=== PATIENT | female | born 1945 | race Caucasian/White ===

== ENCOUNTER → 2016-10-31 | Outpatient (CLI) | payer BC ==
[~2016-10-31] MED LIST: FLUT0.15 NAE; PRT40 PO
--- NOTE | 2016-11-01 13:21 | MAMMOGRAPHY REPORT ---
BILATERAL DIGITAL SCREENING MAMMOGRAM WITH CAD: 10/31/2016 CLINICAL HISTORY: Routine screening. Patient has no complaints. TECHNIQUE: Current study was also evaluated with a Computer Aided Detection (CAD) system. Bilateral CC and MLO views were obtained. COMPARISON: Comparison is made to exams dated: 10/30/2015 mammogram, 10/24/2014 mammogram, 10/18/2013 ma mmogram, 10/13/2012 mammogram - [facility], 10/08/2011 mammogram, and 09/25/2010 mammo gram. BREAST COMPOSITION: The tissue of both breasts is heterogeneously dense, which may obscure small mas ses. FINDINGS: No suspicious masses, calcifications, or areas of architectural distortion are noted in ei ther breast. There has been no significant interval change compared to prior exams. Scattered bilater al benign-appearing calcifications are not significantly changed. Bilateral asymmetries are stable. IMPRESSION: ACR BI-RADS CATEGORY 2: BENIGN There is no mammographic evidence of malignancy. A 1 year screening mammogram is recommended. The pa tient will receive written notification of the results. Approximately 10% of breast cancers are not detected with mammography. A negative mammographic report should not delay biopsy if a clinically suggestive mass is present. Barbara Estrella M.D. /:10/31/2016 16:47:08 Laboratory Technician: Rona Walden, M, [facility] letter sent: Normal 1/2 BI-RADS Code: ACR BI-RADS Category 2: Benign
== END | disposition home or self-care (01) ==
LOC: C.MAMM 08:34
PROVIDERS: ATTEND Family Medicine
DX: Z12.31 Encounter for screening mammogram for malignant neoplasm of breast (principal)

== ENCOUNTER → 2017-11-05 | Outpatient (CLI) | payer BC ==
[~2017-11-05] MED LIST changes: +PANT1TAB4 PO; -PRT40 PO
--- NOTE | 2017-11-05 13:39 | MAMMOGRAPHY REPORT ---
BILATERAL DIGITAL SCREENING MAMMOGRAM TOMOSYNTHESIS WITH CAD: 11/05/2017 CLINICAL HISTORY: Routine screening. Patient has no complaints. TECHNIQUE: The study was acquired using full field digital technology and interpreted from soft copy. Breast tomosynthesis in addition to standard 2D mammography was performed. Current study was also ev aluated with a Computer Aided Detection (CAD) system. COMPARISON: Comparison is made to exams dated: 10/31/2016 mammogram, 10/30/2015 mammogram, 10/24/2014 jolie mogram, 10/18/2013 mammogram, 10/13/2012 mammogram - [facility], and 10/08/2011 mammog michael. BREAST COMPOSITION: The tissue of both breasts is heterogeneously dense, which may obscure small mass es. FINDINGS: There are possible clusters of microcalcifications in the medial, middle to posterior right breast on the CC view and along the posterior nipple line on the CC view, thought to project superio rly and inferiorly on the MLO view, and possible clustered calcifications in the left upper outer mid dle one third of the breast for which additional bilateral spot magnification views are recommended. No other suspicious mass, architectural distortion or cluster of microcalcifications is seen. IMPRESSION: ACR BI-RADS CATEGORY 0: INCOMPLETE EVALUATION: NEED ADDITIONAL IMAGING EVALUATION The possible clusters of microcalcifications in each breast need additional imaging evaluation. The patient will be called to schedule an appointment. Some breast cancers are not detected with mammography. A negative mammographic report should not jd y biopsy if a clinically suggestive mass is present. Flora Haas M.D. ay/:11/05/2017 09:24:45 Crane Rigger: RT Margaret(Rona)(M), [facility] letter sent: Addl Imaging 0 BI-RADS Code: ACR BI-RADS Category 0: Incomplete Evaluation: Need Additional Imaging Evaluation
== END | disposition home or self-care (01) ==
LOC: C.MAMM 08:43
PROVIDERS: ATTEND Family Medicine
DX: Z12.31 Encounter for screening mammogram for malignant neoplasm of breast (principal); R92.0 Mammographic microcalcification found on diagnostic imaging of breast

== ENCOUNTER → 2017-11-12 | Outpatient (CLI) | payer BC ==
--- NOTE | 2017-11-13 15:43 | MAMMOGRAPHY REPORT ---
BILATERAL DIGITAL DIAGNOSTIC MAMMOGRAM: 11/12/2017 CLINICAL HISTORY: Callback from screening mammography for bilateral microcalcifications. No family hi story of breast cancer. TECHNIQUE: Bilateral spot magnification CC and ML views were obtained. COMPARISON: Comparison is made to exams dated: 11/05/2017 mammogram, 10/31/2016 mammogram, 10/30/2015 mamm ogram, and 10/24/2014 mammogram - [facility]. BREAST COMPOSITION: The tissue of both breasts is heterogeneously dense, which may obscure small mass es. FINDINGS: The spot magnification views of the left upper outer quadrant demonstrate two small 2 mm gr oupings of punctate/amorphous microcalcifications at approximately 1:00 and 2:00 posterior breast. W hen comparing back to prior available mammograms, these small groupings of calcifications were likely present dating back to at least 2011, therefore likely benign. There are a few more loosely grouped rounded microcalcifications seen in the left upper outer breast, but currently no highly suspicious grouping or cluster of calcifications. No obvious mass or architectural distortion. Spot magnification views of the right medial, superior and inferior breast demonstrate clustered vers us segmental punctate microcalcifications in the slightly medial posterior breast on the CC view, tho ught to project superiorly based on the ML views. When comparing back to prior available mammograms, these calcifications appear somewhat similar in the CC projection dating back to 2013 but some are l ikely present dating back to 2009, given difference is in equipment and technique. Given slight incr eased conspicuity we discussed options of tissue sampling with stereotactic biopsy versus continued c lose follow-up with spot magnification views and the patient would like to follow with imaging at thi s time. Would also recommend follow-up spot magnification views of the left breast as well. IMPRESSION: ACR-BI-RADS CATEGORY 3: PROBABLY BENIGN 1. Bilateral clusters of microcalcifications most numerous in the left upper outer quadrant and righ t upper inner posterior breast were likely present dating back to 2009, but are increased in conspicu ity. These findings could be due to technical differences and different equipment nevertheless a beth rt interval follow-up bilateral diagnostic mammogram including spot magnification views is recommende d to ensure stability in 6 months. These results and recommendations were discussed with the patient at the time of the exam. Some breast cancers are not detected with mammography. A negative mammographic report should not jd y biopsy if a clinically suggestive mass is present. Flora Haas M.D. ay/:11/12/2017 15:03:40 Comedian: Gaby Lynch, [facility] letter sent: Follow Up Recommended 3 BI-RADS Code: ACR-BI-RADS Category 3: Probably Benign
== END | disposition home or self-care (01) ==
LOC: C.MAMM 13:48
PROVIDERS: ATTEND Family Medicine
DX: R92.0 Mammographic microcalcification found on diagnostic imaging of breast (principal)

== ENCOUNTER 2019-03-01 09:19 | Inpatient (IN) ==
--- NOTE | 2019-03-01 10:15 | XRay Report ---
SINGLE VIEW CHEST CLINICAL HISTORY: Atypical chest pain. FINDINGS: An AP, portable, upright chest radiograph is compared to study dated 05/12/2015 and correlat ed with PET CT dated 09/17/2017. The examination is degraded by portable technique and patient rotatio n. A moderate hiatal hernia is noted. The heart is enlarged noting atherosclerotic calcification of t he thoracic aorta. There is pulmonary vascular congestion with evidence of interstitial edema. There are small pleural effusions with bibasilar consolidation. No pneumothorax is seen. The skeletal struc tures are osteopenic. The bony thorax is grossly intact. IMPRESSION: 1. Cardiomegaly with evidence of congestive failure and mild interstitial edema. 2. Hiatal hernia. 3. There are layering pleural effusions with bibasilar consolidation. This likely represents atelecta sis. Correlate clinically for evidence of superimposed pneumonia Electronically signed by: Kashif Rios M.D. 03/01/2019 10:14 AM
[2019-03-01 10:30] LABS: Basophils # (auto) 0.02 K/uL (0-0.2); Basophils % (auto) 0.5 %; Hemoglobin 11.7 g/dL (12.0-16.0); Immature Granulocytes # (auto) 0.01 K/uL (0.00-0.02); Immature Granulocytes % (auto) 0.2 %; Lymphocytes # (auto) 0.31 K/uL (1.2-3.4); Lymphocytes % (auto) 7.6 %; Mean Corpuscular Hemoglobin 28.2 pg (25-34); Mean Corpuscular Hgb Conc 30.8 g/dL (32-36); Mean Corpuscular Volume 91.6 fL (80-100); Mean Platelet Volume 11.4 fL (7.4-10.4); Monocytes # (auto) 0.21 K/uL (0.11-0.59); Monocytes % (auto) 5.1 %; Neutrophils # (auto) 3.54 K/uL (1.4-6.5); Neutrophils % (auto) 86.6 %; Platelet Count 304 K/uL (130-400); RDW Coefficient of Variation 17.6 % (11.5-14.5); RDW Standard Deviation 58.5 fL (36.4-46.3); Red Blood Count 4.15 M/uL (4.2-5.4); White Blood Count 4.09 K/uL (4.8-10.8)
--- NOTE | 2019-03-01 10:34 | Emergency Department Note ---
ED Visit Note Was seen with Dr. Judge, see his note for details. Resident Activity Tracking Resident Involvement: Resident Care Provided Care Provided: [facility]
[2019-03-01 10:46] LABS: Albumin Level 2.5 gm/dl (3.4-5.0); BUN Creatinine Ratio 22.1 (10-20); Calcium 8.8 mg/dl (8.5-10.1); Creatinine Clr Calc Pharmacy 68.8 ml/min; Est GFR (African American) 100.3; Est GFR (Non-African American) 86.6
[2019-03-01 10:57] LABS: Albumin Globulin Ratio 0.4 (0.9-2); Bilirubin,Total 0.4 mg/dl (0.2-1); Globulin 6.1 gm/dl (2.5-4.0); Total Protein 8.6 gm/dl (6.4-8.2); Troponin I 0.089 ng/ml (0-0.045)
[2019-03-01] MEDS ORDERED: OPTIRAY 320 125ml IV PRN (11:26)
--- NOTE | 2019-03-01 11:36 | CT Scan Report ---
CT ANGIOGRAM OF THE CHEST CLINICAL HISTORY: Atypical chest pain. Dyspnea. COMPARISON STUDY: Chest x-ray dated 03/01/2019. PET CT dated 09/17/2017. TECHNIQUE: Following the IV administration of 120 cc of Optiray 320, CT angiogram of the chest was pe rformed from the upper abdomen to the thoracic inlet utilizing the pulmonary embolus protocol. Images are reviewed in the axial, sagittal, and coronal planes. 3-D MIPS images are created and assessed. I V contrast was administered without complication. A dose lowering technique was utilized adhering to the principles of ALARA. CT DOSE: 342.67 mGycm FINDINGS: Thyroid: Imaged portions of the thyroid gland are normal in size and attenuation. Thoracic aorta: There is atherosclerotic calcification of the thoracic aorta, which is normal in rito dat and demonstrates standard 3-vessel arch anatomy. No dissection is seen. Pulmonary vasculature: The pulmonary trunk is normal in caliber. There are no filling defects identif ied in main, lobar, or segmental pulmonary branches to suggest pulmonary embolus. Heart: The heart is enlarged and without pericardial effusion. Lungs and pleural spaces: There are moderate pleural effusions, right larger than left with associate d atelectasis. There is diffuse intralobular septal and peribronchial thickening. The trachea and vivian tral airways are clear. Mediastinum: There is no mediastinal lymphadenopathy. Minnie: Clear. Axillae: There is no axillary lymphadenopathy. Upper abdomen: There is a moderate to large hiatal hernia. Partially visualized upper abdominal visce ra is within normal limits. Skeletal structures: The skeletal structures are osteopenic. Degenerative change and hyperkyphosis ar e noted in the thoracic spine. No lytic or blastic bony lesions are seen. IMPRESSION: 1. There is no evidence of pulmonary embolus in the main, lobar, or segmental pulmonary arteries. 2. Cardiomegaly with evidence of congestive failure. 3. Moderate pleural effusions, right larger than left with associated atelectasis. 4. Moderate to large hiatal hernia. Electronically signed by: Kashif Rios M.D. 03/01/2019 11:35 AM
[2019-03-01] MEDS ORDERED: FUROSEMIDE 40 MG/4 ML VIAL IV STA (12:05)
[2019-03-01 13:13] LABS: Appearance Urine Clear (Clear); Bilirubin Urine Negative (Negative); Blood Urine Negative (Negative); Color Urine Yellow; Glucose Urine UA Negative (Negative); Ketones Urine Negative (Negative); Leukocyte Esterase Urine Negative (Negative); Nitrite Urine Negative (Negative); Protein Urine Negative (Negative); Urobilinogen Urine Negative (Negative); pH Urine 7.5 (4.5-7.5)
--- NOTE | 2019-03-01 13:24 | History & Physical Report ---
Date of Service March 01, 2019 Assessment & Plan (1) Acute CHF: (2) Bilateral pleural effusion: (3) Elevated troponin: This is a 73-year-old female with significant past medical history for multiple myeloma who presents to [facility] ED secondary to shortness of breath and lower extremity edema x1.5 weeks. In ED her initial troponin was 0.089 with lateral T wave inversions in V5 and V6. She denied chest pain during ED evaluation. proBNP elevated 2004, BUN 15, creatinine 0.70, H&H 11.7 and 30.0, platelet 304, urinalysis unremarkable. Chest x-ray and CTA findings were significant for negative PE, but moderate bilateral pleural effusions with associated atelectasis and CHF. She received 20 mg IV Lasix. New onset CHF with elevated troponin possibly in setting of diastolic dysfunction, ischemic cardiomyopathy, chemotherapeutic agent induced, steroid induced or other etiologies Admit to PCU Consult cardiology Dr. Molina IV lasix 20mg bid17 daily weight strict I and O echocardiogram trend troponin q6h repeat ecg at 7pm repeat CXR in a.m. (4) Multiple myeloma: Dr. Parikh discussed case with Dr. Bassem Luevano recommend holding Revlimid ( pt started day 1 of 21 day cycle today) (5) DVT prophylaxis: SQ heparin for now in event cardiology needs to procedure with any further intervention if no intervention warranted would switch to once daily lovenox in setting of multiple myeloma SCD/TEDS Dispositon: Admit to PCU Follow-up: PCP Dr. Boyce upon discharge along with appropriate follow-up with oncology Dr. Luevano Patient was seen and examined in collaboration with Dr. Parikh, please see addendum History of Present Illness Chief Complaint: Lower extremity swelling and shortness of breath x1.5 weeks. Primary Care Provider: Rosendo Boyce, This is a 73-year-old female with significant past medical history for multiple myeloma who presents to [facility] ED secondary to shortness of breath and lower extremity edema x1.5 weeks. Initially diagnosed with multiple myeloma back in 2016 but most recently started chemotherapeutic regimen by Dr. Luevano. On 02/01 she started Revlimid, Velcade and Decadron. Revlimid 25 mg once daily for 3 weeks followed by 1 week off. She completed 1 total cycle and is on day 1 of cycle 2. Takes Decadron 20 mg once weekly and took prior to arrival. She also receives Velcade 1.3 mg subcu injections every week. Over the past week and a half she has noted increased lower extremity swelling, shortness of breath with exertion, shortness of breath at rest, precordial chest pressure with exertion. Symptoms resolved immediately with rest. She denies any tree chest pain. Approximately 10 pound weight gain is noted. Further complains of nausea, decreased appetite and early satiety. She denies any fever, chills, sweats, lightheadedness, dizziness, syncope, URI symptoms, productive cough, emesis, abdominal pain, increased urgency or frequency with urination, dysuria, hematochezia, melena. She was seen by Dr. Luevano in the office today and was referred to ED secondary to increased shortness breath with exertion and hypoxia noted to 83% with exertion. Denies prior history of cardiac disease or cardiac surgery. Positive family history mother who is at age 90 with CAD. Father and son with hypertension. She denies any smoking or alcohol use. In ED her initial troponin was 0.089 with lateral T wave inversions in V5 and V6. She denied chest pain during ED evaluation. proBNP elevated 2004, BUN 15, creatinine 0.70, H&H 11.7 and 30.0, platelet 304, urinalysis unremarkable. Chest x-ray and CTA findings were significant for negative PE, but moderate bilateral pleural effusions with associated atelectasis and CHF. She received 20 mg IV Lasix. Allergies Allergy/AdvReac Type Severity Reaction Status Date / Time No Known Allergies Allergy Unknown ` Verified 03/01/19 10:14 Home Medications Home Medications Medication Instructions Recorded Confirmed Type acyclovir 400 mg PO BID 03/01/19 03/01/19 History aspirin 81 mg PO DAILY 03/01/19 03/01/19 History dexamethasone 40 mg PO WK 03/01/19 03/01/19 History lenalidomide [Revlimid] 25 mg PO UD 03/01/19 03/01/19 History ondansetron HCl 8 mg PO Q8H PRN 03/01/19 03/01/19 History prochlorperazine maleate 10 mg PO Q6H PRN 03/01/19 03/01/19 History Past Med/Surg History Family History (Updated 03/01/19 @ 13:28 by Christy Pruitt PA-C) Father , 50s Stroke Mother , 90 Coronary heart disease Social History Preferred Language: Frisian 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: Effective City [employer] Required: No Beliefs That Will Affect Care: None Current Living Situation: Spouse Other Information That Helps Us Care for You: No Feels Safe at Home: Yes Safety Concerns: Feels Safe At This Time Smoking Status: Never smoker Do You Dip or Chew Tobacco: No ; Second Hand Exposure: No ; Tobacco Cessation Education Requested by Patient: No Hx Alcohol Use: No Hx Substance Use: No Review of Systems Review of Systems: All systems reviewed & are unremarkable except as noted in HPI & below Physical Exam Physical Exam: Constitutional: WD/WN, female, vitals as above, NAD, sitting up in bed, pleasant, conversing easily Head: Normocephalic, Atraumatic Eyes: PERRL, conjunctivae normal, anicteric sclerae ENMT: external ear and nose normal, oropharynx normal Neck: trachea midline, no thyromegaly normal visual inspection Respiratory: normal respiratory effort, lungs clear to auscultation, no wheeze, rales, rhonchi. Normal insp/exp effort, no accessory muscle use Cardiovascular: RRR, no S3 or S4, no murmur, bilateral +1 pitting edema pretibially Vessels: no JVD or carotid bruit Chest: normal inspection of chest Abdomen: normal bowel sounds, soft, nontender, no hepatosplenomegaly Musculoskeletal: no cyanosis or clubbing, extremities motor strength 5/5 Skin: no rashes, warm and dry normal turgor Neurologic: PERRL, EOMI, accommodation nl, no face palsy, no dysarthria CN's II-XI intact bilaterally and moves all extremities Psychiatric: A+Ox3, euthymic affect Lymphatic: no cervical or axillary lymphadenopathy : deferred Results & Data Vital Signs (Past 12 Hours) Vital Signs Temp Pulse Resp BP Pulse Ox 03/01/19 12:30 78 19 127/73 96 03/01/19 12:00 79 22 124/71 92 03/01/19 11:35 97 03/01/19 11:30 79 22 127/66 97 03/01/19 10:30 78 24 118/67 96 03/01/19 10:00 78 23 117/61 96 03/01/19 09:30 78 22 130/75 97 03/01/19 09:27 79 22 143/89 H 98 03/01/19 09:26 36.9 C 80 18 143/89 H 95 Laboratory Results Short CBC 03/01/19 Range/Units 10:08 WBC 4.09 L (4.8-10.8) K/uL Hgb 11.7 L (12.0-16.0) g/dL Hct 38.0 (37-47) % Plt Count 304 (130-400) K/uL BMP 03/01/19 10:08 Sodium 140 Potassium 4.0 Chloride 112 H Carbon Dioxide 24 BUN 15 Creatinine 0.70 Glucose 109 H Calcium 8.8 Cardiac Enzymes 03/01/19 Range/Units 10:08 Troponin I 0.089 H* (0-0.045) ng/ml Liver Function 03/01/19 Range/Units 10:08 Total Bilirubin 0.4 (0.2-1) mg/dl AST 46 H (15-37) U/L ALT 56 (12-78) U/L Alkaline Phosphatase 77 (45-117) U/L Albumin 2.5 L (3.4-5.0) gm/dl Urine 03/01/19 Range/Units 12:55 Urine Color Yellow Urine Appearance Clear (Clear) Urine pH 7.5 (4.5-7.5) Ur Specific [place] 1.020 (1.000-1.030) Urine Protein Negative (Negative) Urine Glucose (UA) Negative (Negative) Diagnostic Findings CXR: IMPRESSION: 1. Cardiomegaly with evidence of congestive failure and mild interstitial edema. 2. Hiatal hernia. 3. There are layering pleural effusions with bibasilar consolidation. This likely represents atelectasis. Correlate clinically for evidence of superimposed pneumonia Chest CTA: IMPRESSION: 1. There is no evidence of pulmonary embolus in the main, lobar, or segmental pulmonary arteries. 2. Cardiomegaly with evidence of congestive failure. 3. Moderate pleural effusions, right larger than left with associated atelectasis. 4. Moderate to large hiatal hernia. Medications Administered Ioversol (Optiray 320 125ml) 120 ml IV ONCE PRN PRN Reason: Interaction Checking Stop: 03/05/19 11:25 Last Admin: 03/01/19 11:27 Dose: 120 ml Documented by: [id number] Discontinued Medications Furosemide (Lasix) 20 mg IV NOW STA Stop: 03/01/19 12:06 Last Admin: 03/01/19 12:23 Dose: 20 mg Documented by: [id number] ECG Rate (beats per minute): 80 Rhythm: normal sinus Findings: + T-wave inversion (Lateral) Code Status & VTE Plan Code Status Full code VTE Prophylaxis Plan VTE Prophylaxis will be ordered: Yes Supervising Physician Co-Signing Physician Notes Date of Service: March 01, 2019 HISTORY: Record reviewed. Patient interviewed and examined. Care coordinated with Christy Pruitt PA-C. Please refer to her documentation for complete history. Briefly, 73 YO female with history of multiple myeloma, currently receiving treatment with bortezomib and lenalidomide. Has noted some mile dyspnea on exertion without chest pain over the past year. Developed worsening dyspnea on exertion 1-2 weeks ago associated with weight gain and dependent edema. Had a brief episode of chest pressure at rest about 2 weeks ago that only lasted for a few minutes. No chest pain with exertion. No fever. Occasional cough associated with postnasal drainage. Came to ED for evaluation and found to be in CHF. No prior history of cardiovascular disease. EXAM: General- no distress Skin- xanthelasma lower eyelids Lungs- bibasilar rales Cardiovascular- RRR, ? midsystolic click, ? soft late systolic murmur, + JVD, 1+ pretibial edema bilaterally Abdomen- + bowel sounds, soft, nontender Extremities- no cyanosis; no calf tenderness Neuro- alert, oriented Skin- warm & dry DATA: Hgb 11.7, WBC 4090, platelets 304,000. BUN 15, creatinine 0.70. Total protein 8.6, albumin 2.5, globulin 6.1, albumin / globulin ratio 0.4. Troponin 0.089. Pro BNP 2004. K 4.0. Other lab studies as noted. Chest x-ray reviewed by the undersigned and formally interpreted by Radiology: FINDINGS: An AP, portable, upright chest radiograph is compared to study dated 05/12/2015 and correlated with PET CT dated 09/17/2017. The examination is degraded by portable technique and patient rotation. A moderate hiatal hernia is noted. The heart is enlarged noting atherosclerotic calcification of the thoracic aorta. There is pulmonary vascular congestion with evidence of interstitial edema. There are small pleural effusions with bibasilar consolidation. No pneumothorax is seen. The skeletal structures are osteopenic. The bony thorax is grossly intact. IMPRESSION: 1. Cardiomegaly with evidence of congestive failure and mild interstitial edema. 2. Hiatal hernia. 3. There are layering pleural effusions with bibasilar consolidation. This likely represents atelectasis. Correlate clinically for evidence of superimposed pneumonia Electronically signed by: Kashif Rios M.D. 03/01/2019 10:14 AM CTA chest per Radiology: IMPRESSION: 1. There is no evidence of pulmonary embolus in the main, lobar, or segmental pulmonary arteries. 2. Cardiomegaly with evidence of congestive failure. 3. Moderate pleural effusions, right larger than left with associated atelectasis. 4. Moderate to large hiatal hernia. Electronically signed by: Kashif Rios M.D. 03/01/2019 11:35 AM EKG performed at 0926 reviewed and demonstrated NSR at 80 / minute, poor R-wave progression, biphasic T-waves I, T-wave flattening inferior leads, ST depression + inverted T-waves V5, V6. ASSESSMENT AND PLAN: New onset CHF. Consider cardiac amyloid. Consider adverse drug reaction (e.g., bortezomib or lenalidomide). Consider etiologies not related to multiple myeloma or Rx. Received IV furosemide in ED with brisk diuresis. Monitor renal function closely. Will hold on further diuresis pending labs and follow-up evaluation in a.m. Echo ordered. Check serial troponins. Further management will depend on echo data. Consult Cardiology. Case discussed with Hematology / Oncology- advised to hold lenalidomide at this time. Please refer to GABBY Pruitt's documentation for discussion of other issues.
--- NOTE | 2019-03-01 13:40 | Communication Note ---
Date of Service: March 01, 2019 HISTORY: Record reviewed. Patient interviewed and examined. Care coordinated with Christy Prutit PA-C. Please refer to her documentation for complete history. Briefly, 73 YO female with history of multiple myeloma, currently receiving treatment with bortezomib and lenalidomide. Has noted some mile dyspnea on exertion without chest pain over the past year. Developed worsening dyspnea on exertion 1-2 weeks ago associated with weight gain and dependent edema. Had a brief episode of chest pressure at rest about 2 weeks ago that only lasted for a few minutes. No chest pain with exertion. No fever. Occasional cough associated with postnasal drainage. Came to ED for evaluation and found to be in CHF. No prior history of cardiovascular disease. EXAM: General- no distress Skin- xanthelasma lower eyelids Lungs- bibasilar rales Cardiovascular- RRR, ? midsystolic click, ? soft late systolic murmur, + JVD, 1+ pretibial edema bilaterally Abdomen- + bowel sounds, soft, nontender Extremities- no cyanosis; no calf tenderness Neuro- alert, oriented Skin- warm & dry DATA: Hgb 11.7, WBC 4090, platelets 304,000. BUN 15, creatinine 0.70. Total protein 8.6, albumin 2.5, globulin 6.1, albumin / globulin ratio 0.4. Troponin 0.089. Pro BNP 2004. K 4.0. Other lab studies as noted. Chest x-ray reviewed by the undersigned and formally interpreted by Radiology: FINDINGS: An AP, portable, upright chest radiograph is compared to study dated 05/12/2015 and correlated with PET CT dated 09/17/2017. The examination is degraded by port able technique and patient rotation. A moderate hiatal hernia is noted. The heart is enlarged noting atherosclerotic calcification of the thoracic aorta. There is pulmonary vascular congestion with evidence of interstitial edema. There are small pleural effusions with bibasilar consolidation. No pneumothorax is seen. The skeletal structures are osteopenic. The bony thorax is grossly intact. IMPRESSION: 1. Cardiomegaly with evidence of congestive failure and mild interstitial edema. 2. Hiatal hernia. 3. There are layering pleural effusions with bibasilar consolidation. This likely represents atelectasis. Correlate clinically for evidence of superimposed pneumonia Electronically signed by: Kashif Rios M.D. 03/01/2019 10:14 AM CTA chest per Radiology: IMPRESSION: 1. There is no evidence of pulmonary embolus in the main, lobar, or segmental pulmonary arteries. 2. Cardiomegaly with evidence of congestive failure. 3. Moderate pleural effusions, right larger than left with associated atelectasis. 4. Moderate to large hiatal hernia. Electronically signed by: Kashif Rios M.D. 03/01/2019 11:35 AM EKG performed at 0926 reviewed and demonstrated NSR at 80 / minute, poor R-wave progression, biphasic T-waves I, T-wave flattening inferior leads, ST depression + inverted T-waves V5, V6. ASSESSMENT AND PLAN: New onset CHF. Consider cardiac amyloid. Consider adverse drug reaction (e.g., bortezomib or lenalidomide). Consider etiologies not related to multiple myeloma or Rx. Received IV furosemide in ED with brisk diuresis. Monitor renal function closely. Will hold on further diuresis pending labs and follow-up evaluation in a.m. Echo ordered. Check serial troponins. Further management will depend on echo data. Consult Cardiology. Case discussed with Hematology / Oncology- advised to hold lenalidomide at this time. Please refer to GABBY Pruitt's documentation for discussion of other issues.
[2019-03-01] MEDS ORDERED: ALUMINUM/MAGNESIUM SUSP 30 ML UDC PO PRN (14:32)
[2019-03-01] MEDS ORDERED: POLYETHYLENE (MIRALAX) 17 GM PACK PO PRN (14:32)
[2019-03-01] MEDS ORDERED: MAGNESIUM HYDROXIDE SUSP 30 ML UDC PO PRN (14:32)
[2019-03-01] MEDS ORDERED: NITROGLYCERIN SL 0.4 MG/TAB TAB SL PRN (14:32)
[2019-03-01] MEDS ORDERED: ONDANSETRON INJ 2 MG/ML 2 ML VIAL IV PRN (14:32)
[2019-03-01] MEDS ORDERED: ACETAMINOPHEN 325 MG TAB PO PRN (14:32)
--- NOTE | 2019-03-01 15:11 | Emergency Department Note ---
Entered by Luis Fernando Tubbs acting as a scribe for ED Provider Note CHIEF COMPLAINT: Shortness of breath HISTORY OF PRESENT ILLNESS: The patient is a 73 year old female who presents to the Emergency Room with complaints of worsening shortness of breath that has been ongoing for the past couple of weeks. The patient states that her symptoms are especially worse with exertion and she has noticed increased swelling in her bilateral lower extremities. The patient adds that her pulse ox would drop when she was up walking around and improve again once she was sitting but she does not remember the number it would decrease to. The patient mentioned that a couple weeks ago s he had an episode of chest heaviness and last night she had two episodes of sharp sudden chest pain. The patient rates the pain as a 3/10 and notes it did not radiate anywhere. The patient also endorses some right upper quadrant abdominal pain but notes this is not a new problem. The patient has a history of multiple myeloma and it is currently active. The patient is on many different medications for the myeloma. Pt denies LOC, headache, fevers, chills, diaphoresis, visual changes, neck pain, nausea, vomiting, back pain, melena, hematochezia, urinary symptoms, numbness, weakness, lymphadenopathy, rash, or other complaints. REVIEW OF SYSTEMS: See HPI for pertinent positives and negatives. A total of ten systems were reviewed and were otherwise negative. PMHx/PSHx: DVT, CHF, Multiple myeloma, Elevated troponin SOCIAL HISTORY: Patient lives at home. PHYSICAL EXAM: GENERAL: Awake, alert, well-appearing, in no distress HENT: Normocephalic, atraumatic. Oropharynx unremarkable. EYES: Normal conjunctiva. Sclera non-icteric. NECK: Inspection normal. Non-tender. Supple. No nuchal rigidity. FROM. No masses. RESPIRATORY: Clear to auscultation. No wheezes. No rales. Increased work of breath. CARDIAC: Normal rate. Normal rhythm. No murmurs. No rubs. Extremities warm and well perfused. Pulses equal. No JVD. GI: Soft, non-distended. No tenderness to palpation. No rebound or guarding. No masses. RECTAL: Deferred. MUSCULOSKELETAL: Atraumatic. Chest examination reveals no tenderness. The back is symmetrical on inspection without obvious abnormality. There is no CVA tenderness to palpation. No joint edema. LOWER EXTREMITIES: Calves are equal size bilaterally and non-tender. 1+ edema. No discoloration. NEURO: Normal sensorium. No sensory or motor deficits noted. SKIN: No rash or jaundice noted. EMERGENCY DEPARTMENT COURSE: 950: Past medical records reviewed. The patient was evaluated in room B10, and a complete history and physical examination were performed. 1030: I obtained the patient's report which showed that when she walked up the steps at the clinic her pulse ox dropped to 83%. 1057: The patient's troponin came back positive. 1205: I discussed the patient's case with Christy THRASHER who is working under Dr. Jl Montoya Hospitalist. They will be accepting the patient for further evaluation. MEDICAL DECISION MAKING: Prior records/ancillary studies reviewed. Triage Nursing notes reviewed and agree them. Additional history obtained from the family. The patient's history was concerning for shortness of breath. Differential diagnosis: Etiologies such as pneumonia, COPD, reactive airway disease, CHF, cardiac ischemia, pulmonary embolism, pneumothorax, musculoskeletal, infections, gastrointestinal, as well as others were entertained. Physical examination: As above. ER treatment provided: Supplemental oxygen IV Lasix On reassessment the patient felt better. Diagnostic interpretation by me: The electrocardiogram was abnormal. The labs revealed a mild anemia and leukopenia on CBC. Chemistry panel unremarkable. Troponin minimally elevated and BNP moderately elevated concerning for CHF. Imaging studies: Chest x-ray congestive changes noted. Possible superimposed pneumonia present. CT scan of the chest was performed and showed no evidence of pulmonary embolism however cardiomegaly with congestive changes present. Moderate pleural effusions present. Consultation: A consultation was placed with the hospitalist. The case was discussed and diagnostics were reviewed. The patient was evaluated in the ER for further treatment. IMPRESSION: Shortness of breath CHF Elevated troponin PLAN: Being evaluated by the hospitalist The scribe's documentation has been prepared under my direction and personally reviewed by me in its entirety. I confirm that the note above accurately reflects all work, treatment, procedures, and medical decision making performed by me. CRITICAL CARE: I have personally spent greater than 30 minutes of critical care time in the direct management of this patient. This includes bedside care, interpretation of diagnostic studies, and testing, discussion with consultants, patient, and family members, and other required patient management activities. This 30 minutes is in excess of all separately billable procedures. 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 Required: No Beliefs That Will Affect Care: None Current Living Situation: Spouse Other Information That Helps Us Care for You: No Feels Safe at Home: Yes Safety Concerns: Feels Safe At This Time Smoking Status: Never smoker Do You Dip or Chew Tobacco: No ; Second Hand Exposure: No ; Tobacco Cessation Education Requested by Patient: No Hx Alcohol Use: No Hx Substance Use: No Results & Data Vital Signs Vital Signs - 24 hr 03/01/19 09:26 03/01/19 09:27 03/01/19 09:30 Temperature 36.9 C Temperature Source Oral Pulse Rate 80 79 78 Pulse Rate from SpO2 Sensor 79 78 Respiratory Rate 18 22 22 Respiratory Effort / Characteristics Non-Labored Spontaneous Respiratory Depth Normal Blood Pressure 143/89 H 143/89 H 130/75 Blood Pressure Mean 107 101 86 Blood Pressure Position Sitting Pulse Oximetry 95 98 97 Oxygen Delivery Method Room Air Oxygen Flow Rate Fraction of Inspired Oxygen SaO2/FiO2 Ratio Sepsis Recent Fever Within 48 Hours No Sepsis Action Taken by Nursing No Action Required 03/01/19 10:00 03/01/19 10:30 03/01/19 11:30 Temperature Temperature Source Pulse Rate 78 78 79 Pulse Rate from SpO2 Sensor 78 77 79 Respiratory Rate 23 24 22 Respiratory Effort / Characteristics Respiratory Depth Blood Pressure 117/61 118/67 127/66 Blood Pressure Mean 80 86 78 Blood Pressure Position Pulse Oximetry 96 96 97 Oxygen Delivery Method Nasal Cannula Oxygen Flow Rate 2 2 Fraction of Inspired Oxygen SaO2/FiO2 Ratio Sepsis Recent Fever Within 48 Hours Sepsis Action Taken by Nursing 03/01/19 11:35 03/01/19 12:00 03/01/19 12:30 Temperature Temperature Source Pulse Rate 79 78 Pulse Rate from SpO2 Sensor 76 75 Respiratory Rate 22 19 Respiratory Effort / Characteristics Respiratory Depth Blood Pressure 124/71 127/73 Blood Pressure Mean 89 86 Blood Pressure Position Pulse Oximetry 97 92 96 Oxygen Delivery Method Nasal Cannula Nasal Cannula Nasal Cannula Oxygen Flow Rate 2 2 2 Fraction of Inspired Oxygen 2 SaO2/FiO2 Ratio 4850 Sepsis Recent Fever Within 48 Hours Sepsis Action Taken by Longterm Medications Current Medication List: was personally reviewed by me Laboratory Data Attestation: I reviewed the patient's lab results. Result diagrams: 03/01/19 10:08 03/01/19 10:08 Lab Results 03/01/19 03/01/19 Range/Units 10:08 10:08 WBC 4.09 L (4.8-10.8) K/uL RBC 4.15 L (4.2-5.4) M/uL Hgb 11.7 L (12.0-16.0) g/dL Hct 38.0 (37-47) % MCV 91.6 (80-100) fL MCH 28.2 (25-34) pg MCHC 30.8 L (32-36) g/dL RDW Std Deviation 58.5 H (36.4-46.3) fL RDW Coeff of Nasir 17.6 H (11.5-14.5) % Plt Count 304 (130-400) K/uL MPV 11.4 H (7.4-10.4) fL Immature Gran % (Auto) 0.2 % Neut % (Auto) 86.6 % Lymph % (Auto) 7.6 % [place] % (Auto) 5.1 % Eos % (Auto) 0.0 % Baso % (Auto) 0.5 % Immature Gran # (Auto) 0.01 (0.00-0.02) K/uL Neut # (Auto) 3.54 (1.4-6.5) K/uL Lymph # (Auto) 0.31 L (1.2-3.4) K/uL [place] # (Auto) 0.21 (0.11-0.59) K/uL Eos # (Auto) 0.00 (0-0.5) K/uL Baso # (Auto) 0.02 (0-0.2) K/uL Sodium 140 (136-145) mmol/L Potassium 4.0 (3.5-5.1) mmol/L Chloride 112 H (98-107) mmol/L Carbon Dioxide 24 (21-32) mmol/L Anion Gap 4.0 (3-11) BUN 15 (7-18) mg/dl Creatinine 0.70 (0.6-1.2) mg/dl Est Cr Clr Drug Dosing 68.8 ml/min Est GFR ( Amer) 100.3 Est GFR (Non-Af Amer) 86.6 BUN/Creatinine Ratio 22.1 H (10-20) Glucose 109 H (70-99) mg/dl Calcium 8.8 (8.5-10.1) mg/dl Total Bilirubin 0.4 (0.2-1) mg/dl AST 46 H (15-37) U/L ALT 56 (12-78) U/L Alkaline Phosphatase 77 (45-117) U/L Troponin I 0.089 H* (0-0.045) ng/ml NT-Pro-B Natriuret Pep 2004 H (0-900) pg/ml Total Protein 8.6 H (6.4-8.2) gm/dl Albumin 2.5 L (3.4-5.0) gm/dl Globulin 6.1 H (2.5-4.0) gm/dl Albumin/Globulin Ratio 0.4 L (0.9-2) Lipase 127 (73-393) U/L Administered Medications Discontinued Medications Furosemide (Lasix) 20 mg IV NOW STA Stop: 03/01/19 12:06 Last Admin: 03/01/19 12:23 Dose: 20 mg Documented by: [id number] Ioversol (Optiray 320 125ml) 120 ml IV ONCE PRN PRN Reason: Interaction Checking Stop: 03/05/19 11:25 Last Admin: 03/01/19 11:27 Dose: 120 ml Documented by: [id number] Imaging Data Radiologist's Impression: Radiology results as stated below per my review and the radiologist's interpretation: SINGLE VIEW CHEST CLINICAL HISTORY: Atypical chest pain. FINDINGS: An AP, portable, upright chest radiograph is compared to study dated 05/12/2015 and correlated with PET CT dated 09/17/2017. The examination is degraded by portable technique and patient rotation. A moderate hiatal hernia is noted. The heart is enlarged noting atherosclerotic calcification of the thoracic aorta. There is pulmonary vascular congestion with evidence of interstitial edema. There are small pleural effusions with bibasilar consolidation. No pneumothorax is seen. The skeletal structures are osteopenic. The bony thorax is grossly intact. IMPRESSION: 1. Cardiomegaly with evidence of congestive failure and mild interstitial edema. 2. Hiatal hernia. 3. There are layering pleural effusions with bibasilar consolidation. This likely represents atelectasis. Correlate clinically for evidence of superimposed pneumonia Electronically signed by: Kashif Rios M.D. 03/01/2019 10:[address] ANGIOGRAM OF THE CHEST CLINICAL HISTORY: Atypical chest pain. Dyspnea. COMPARISON STUDY: Chest x-ray dated 03/01/2019. PET CT dated 09/17/2017. TECHNIQUE: Following the IV administration of 120 cc of Optiray 320, CT angiogram of the chest was performed from the upper abdomen to the thoracic inlet utilizing the pulmonary embolus protocol. Images are reviewed in the axial, sagittal, and coronal planes. 3-D MIPS images are created and assessed. IV contrast was administered without complication. A dose lowering technique was utilized adhering to the principles of ALARA. CT DOSE: 342.67 mGycm FINDINGS: Thyroid: Imaged portions of the thyroid gland are normal in size and attenuation. Thoracic aorta: There is atherosclerotic calcification of the thoracic aorta, which is normal in caliber and demonstrates standard 3-vessel arch anatomy. No dissection is seen. Pulmonary vasculature: The pulmonary trunk is normal in caliber. There are no filling defects identified in main, lobar, or segmental pulmonary branches to suggest pulmonary embolus. Heart: The heart is enlarged and without pericardial effusion. Lungs and pleural spaces: There are moderate pleural effusions, right larger than left with associated atelectasis. There is diffuse intralobular septal and peribronchial thickening. The trachea and central airways are clear. Mediastinum: There is no mediastinal lymphadenopathy. Minnie: Clear. Axillae: There is no axillary lymphadenopathy. Upper abdomen: There is a moderate to large hiatal hernia. Partially visualized upper abdominal viscera is within normal limits. Skeletal structures: The skeletal structures are osteopenic. Degenerative change and hyperkyphosis are noted in the thoracic spine. No lytic or blastic bony lesions are seen. IMPRESSION: 1. There is no evidence of pulmonary embolus in the main, lobar, or segmental pulmonary arteries. 2. Cardiomegaly with evidence of congestive failure. 3. Moderate pleural effusions, right larger than left with associated atelectasis. 4. Moderate to large hiatal hernia. Electronically signed by: Kashif Rios M.D. 03/01/2019 11:35 AM ECG Data Attestation: I personally reviewed and interpreted this ECG as follows: Indication: + SOB/dyspnea Rate (beats per minute): 80 Rhythm: normal sinus ECG Intervals/blocks: + Normal QRS ECG Avalon: + Right axis deviation ECG ST segments: + T-wave inversions (Lateral) ECG Findings: + Q waves (Septal) and + Other (Low voltage QRS) Blood Pressure Blood Pressure Findings: Elevated blood pressure Blood Pressure Disposition: Referred to patients primary care provider Discharge Plan Visit Data *Final* Discharge Date/Time: 03/01/19 14:06 Chief Complaint: Chest Pain ED Provider: Navjot Judge ED Midlevel Provider: Maurice Gonzalez Discharge Problem: Shortness of breath, Acute CHF Patient Disposition: Admitted As Inpatient Discharge Instructions Interventions: ED Discharge Assessment Last Done: 03/01/19 14:06 Discharge Problem: Acute CHF Qualifiers: Heart failure type: unspecified Qualified Code(s): I50.9 - Heart failure, unspecified The scribe's documentation has been prepared under my direction and personally reviewed by me in its entirety. I confirm that the note above accurately reflects all work, treatment, procedures, and medical decision making performed by me.
--- NOTE | 2019-03-01 15:57 | Cardiology Consultation ---
Date of Consultation March 01, 2019 Assessment & Plan (1) Acute heart failure with preserved ejection fraction (HFpEF): (2) Multiple myeloma: Patient with noted signs and symptoms of volume overload consistent with congestive heart failure decompensation. She believes that she has been having progressive shortness of breath over about a 1.5 to 2-week interval. Moderate bilateral pleural effusions are present. She believes that her lower extremity edema has already started to improve after receiving a single dose of 20 mg of furosemide. An echocardiogram was performed and reviewed independently by the undersigned with findings of severe concentric left ventricular hypertrophy. Hyperdynamic left ventricular systolic function, mild biatrial enlargement, and significant diastolic dysfunction with Doppler findings suggestive of elevated LV and left atrial filling pressures. The echocardiographic findings are compatible with an infiltrative cardiomyopathy which correlates with her diagnosis of multiple myeloma. I would speculate that she perhaps has infiltrative cardiomyopathy and that the fluid retention has occurred with her chemotherapy agents including use of corticosteroids. In terms of acute treatment, we are holding her chemotherapy and proceeding with IV diuretic therapy. We will reassess for tomorrow's diuretic dose based on her clinical response and her kidney function tomorrow. Start low-dose beta- deneen. Will need to collaborate with hematology/oncology regarding the above findings. Agree with SQ heparin for DVT prophylaxis. History of Present Illness Attending Physician: Navjot Parikh MD History of Present Illness Anel Hogue is a 73 year old female seen in cardiology consultation per the request of Christy Pruitt PA-C and Dr Parikh for the evaluation of shortness of breath. She has a history of multiple myeloma for which she follows with Dr. Deni Luevano of [facility] hematology oncology. Approximately 4 weeks ago she started treatment with Revlimid, Velcade, and Decadron. She has noted a history of new lower extremity swelling and exertional shortness of breath with activity such as walking up steps has been aggressive over the last 2 weeks. Today she was to have outpatient blood work for Dr. Luevano, and she was very short of breath climbing the stairs at [facility]. She was referred for evaluation in the emergency room. CT Valencia Calzada of the chest revealed bilateral pleural effusions. No evidence of pulmonary embolism. Her BNP is elevated. She has a mild elevation in her troponin I. She has no past cardiac history but does note some degree of shortness of breath even over a year ago. Family History: Father in his 50s of a stroke, additional details unavailable. Her mother with a history of a "heart problem" details unknown. Allergies Allergy/AdvReac Type Severity Reaction Status Date / Time No Known Allergies Allergy Unknown ` Verified 03/01/19 10:14 Home Medications Home Medications Medication Instructions Recorded Confirmed Type acyclovir 400 mg PO BID 03/01/19 03/01/19 History aspirin 81 mg PO DAILY 03/01/19 03/01/19 History dexamethasone 40 mg PO WK 03/01/19 03/01/19 History lenalidomide [Revlimid] 25 mg PO UD 03/01/19 03/01/19 History ondansetron HCl 8 mg PO Q8H PRN 03/01/19 03/01/19 History prochlorperazine maleate 10 mg PO Q6H PRN 03/01/19 03/01/19 History Patient History Medical History GI bleed Multiple myeloma Surgical History History of colonoscopy History of tubal ligation (Resolved) Family History Father , 50s Stroke Mother , 90 Coronary heart disease Social History Preferred Language: Italian 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: Effective Technical Sales Advisor Required: No Beliefs That Will Affect Care: None Current Living Situation: Spouse Other Information That Helps Us Care for You: No Feels Safe at Home: Yes Safety Concerns: Feels Safe At This Time Smoking Status: Never smoker Do You Dip or Chew Tobacco: No ; Second Hand Exposure: No ; Tobacco Cessation Education Requested by Patient: No Hx Alcohol Use: No Hx Substance Use: No Review of Systems Review of Systems: All systems reviewed & are unremarkable except as noted in HPI & below Physical Exam Physical Exam: Temp Pulse Resp BP Pulse Ox 36.5 C 78 20 132/70 92 03/01/19 14:32 03/01/19 15:50 03/01/19 14:32 03/01/19 14:32 03/01/19 14:32 Constitutional: + ill appearing (Ill-appearing without acute distress) Respiratory: Auscultation: + diminished lung sounds (Diminished breath sounds bilaterally at the bases); no crackles, no rales and no rhonchi Gastrointestinal (Abdomen): normal bowel sounds, soft, nontender, no hepatosplenomegaly Skin: no rashes, warm and dry Neurologic: PERRL, EOMI, accommodation nl, no face palsy, no dysarthria Results & Data Vital Signs (Past 12 Hours) Vital Signs Temp Pulse Pulse Resp BP BP Pulse Ox 03/01/19 14:32 36.5 C 79 20 132/70 92 03/01/19 14:00 84 31 H 145/88 H 95 03/01/19 13:04 79 23 123/70 94 03/01/19 12:30 78 19 127/73 96 03/01/19 12:00 79 22 124/71 92 03/01/19 11:35 97 03/01/19 11:30 79 22 127/66 97 03/01/19 10:30 78 24 118/67 96 03/01/19 10:00 78 23 117/61 96 03/01/19 09:30 78 22 130/75 97 03/01/19 09:27 79 22 143/89 H 98 03/01/19 09:26 36.9 C 80 18 143/89 H 95 Laboratory Results Cardiac Enzymes 03/01/19 03/01/19 Range/Units 10:08 15:53 AST 46 H (15-37) U/L Troponin I 0.089 H* 0.072 H* (0-0.045) ng/ml CBC 03/01/19 Range/Units 10:08 WBC 4.09 L (4.8-10.8) K/uL RBC 4.15 L (4.2-5.4) M/uL Hgb 11.7 L (12.0-16.0) g/dL Hct 38.0 (37-47) % Plt Count 304 (130-400) K/uL Neut # (Auto) 3.54 (1.4-6.5) K/uL Lymph # (Auto) 0.31 L (1.2-3.4) K/uL Bullock # (Auto) 0.21 (0.11-0.59) K/uL Eos # (Auto) 0.00 (0-0.5) K/uL Baso # (Auto) 0.02 (0-0.2) K/uL Comprehensive Metabolic Panel 03/01/19 Range/Units 10:08 Sodium 140 (136-145) mmol/L Potassium 4.0 (3.5-5.1) mmol/L Chloride 112 H (98-107) mmol/L Carbon Dioxide 24 (21-32) mmol/L BUN 15 (7-18) mg/dl Creatinine 0.70 (0.6-1.2) mg/dl Glucose 109 H (70-99) mg/dl Calcium 8.8 (8.5-10.1) mg/dl AST 46 H (15-37) U/L ALT 56 (12-78) U/L Alkaline Phosphatase 77 (45-117) U/L Total Protein 8.6 H (6.4-8.2) gm/dl Albumin 2.5 L (3.4-5.0) gm/dl Intake and Output 03/01/19 03/01/19 03/01/19 06:59 14:59 22:59 Other: Weight 71.3 kg Patient Weight 03/02/19 06:59 Weight 71.3 kg Diagnostic Findings EKG performed today 03/01/2019 9:26 AM and reviewed independently: Normal sinus rhythm at 80 bpm, age-indeterminate septal infarction pattern noted in lead V2, nonspecific lateral T wave changes. CT angiogram of the chest: Per radiology report, no evidence of pulmonary embolism, cardiomegaly noted with evidence of congestive heart failure, moderate bilateral pleural effusions, moderate to large hiatal hernia. Summary of transthoracic echocardiogram performed today and reviewed independently: There is severe concentric left ventricular hypertrophy. No regional wall motion abnormalities noted. Normal to hyperdynamic left ventricular systolic function is present. The qualitative left ventricular ejection fraction >70% with near complete obliteration of the left ventricular cavity observed at end systole. Mild biatrial enlargement is present. Diastolic dysfunction, Grade III (restrictive pattern), consistent with markedly increased left atrial pressure. There is mild mitral regurgitation. There is mild tricuspid regurgitation. Moderate pulmonary hypertension is present. The estimated pulmonary systolic pressure= 49 mmHg. Echocardiogram findings are compatible with an infiltrative cardiomyopathy.
[2019-03-01] MEDS ORDERED: METOPROLOL TARTRATE 25 MG TAB PO ONE (16:52)
[2019-03-01] MEDS ORDERED: POTASSIUM CHLORIDE 20 MEQ TABCR PO STA (17:41)
[2019-03-01] MEDS ORDERED: FUROSEMIDE 20 MG in SYRINGE 0 ML IV ONE (18:00)
[2019-03-01] MEDS ORDERED: ENOXAPARIN INJ 40 MG/0.4 ML SYR SQ SCH (18:00)
[2019-03-01] MEDS: ACYCLOVIR 400 MG TAB PO SCH (20:53)
[2019-03-01] MEDS ORDERED: HEPARIN SOD 5,000 UNIT/0.5 ML VIAL SQ SCH (21:00)
[2019-03-02 05:56] LABS: Basophils # (auto) 0.01 K/uL (0-0.2); Basophils % (auto) 0.2 %; Hematocrit (blood only) 34.9 % (37-47); Hemoglobin 10.8 g/dL (12.0-16.0); Immature Granulocytes # (auto) 0.03 K/uL (0.00-0.02); Immature Granulocytes % (auto) 0.5 %; Lymphocytes # (auto) 0.68 K/uL (1.2-3.4); Lymphocytes % (auto) 11.3 %; Mean Corpuscular Hemoglobin 27.5 pg (25-34); Mean Corpuscular Hgb Conc 30.9 g/dL (32-36); Mean Corpuscular Volume 88.8 fL (80-100); Mean Platelet Volume 11.4 fL (7.4-10.4); Monocytes # (auto) 1.03 K/uL (0.11-0.59); Monocytes % (auto) 17.1 %; Neutrophils # (auto) 4.29 K/uL (1.4-6.5); Neutrophils % (auto) 70.9 %; Platelet Count 291 K/uL (130-400); RDW Coefficient of Variation 17.4 % (11.5-14.5); RDW Standard Deviation 57.1 fL (36.4-46.3); Red Blood Count 3.93 M/uL (4.2-5.4); White Blood Count 6.04 K/uL (4.8-10.8)
[2019-03-02 06:34] LABS: BUN Creatinine Ratio 31.4 (10-20); Calcium 8.4 mg/dl (8.5-10.1); Creatinine Clr Calc Pharmacy 65.5 ml/min; Est GFR (African American) 100.3; Est GFR (Non-African American) 86.6; Potassium 3.7 mmol/L (3.5-5.1)
[2019-03-02 06:39] LABS: Estimated Average Glucose 134 mg/dl; Hemoglobin A1C 6.3 % (4.5-5.6)
[2019-03-02 06:45] LABS: Thyroid Stimulating Hormone 0.75 uIu/ml (0.300-4.500)
[2019-03-02] MEDS ORDERED: POTASSIUM CHLORIDE 20 MEQ TABCR PO STA (07:52)
[2019-03-02] MEDS: ASPIRIN 81 MG ECTAB PO SCH (08:10)
[2019-03-02] MEDS: ACYCLOVIR 400 MG TAB PO SCH ×2 (08:11→20:22)
[2019-03-02] MEDS: METOPROLOL TARTRATE 25 MG TAB PO SCH ×2 (08:18→20:22)
[2019-03-02] MEDS ORDERED: FUROSEMIDE 20 MG TAB PO STA (08:52)
--- NOTE | 2019-03-02 08:54 | Hospitalist Progress Note ---
Date of Service March 02, 2019 Assessment & Plan (1) Acute CHF: -03/11/19: This is a 73-year-old female with significant past medical history for multiple myeloma who presents to [facility] ED secondary to shortness of breath and lower extremity edema x1.5 weeks. In ED her initial troponin was 0.089 with lateral T wave inversions in V5 and V6. She denied chest pain during ED evaluation. proBNP elevated 2004, BUN 15, creatinine 0.70, H&H 11.7 and 30.0, platelet 304, urinalysis unremarkable. Chest x-ray and CTA findings were significant for negative PE, but moderate bilateral pleural effusions with associated atelectasis and CHF. She received 20 mg IV Lasix in ED and another dose of 20 mg IV Lasix by cardiology in the evening of admission -echocardiogram shows severe concentric left ventricular hypertrophy. Hyperdynamic left ventricular systolic function, mild biatrial enlargement, and significant diastolic dysfunction with Doppler findings suggestive of elevated LV and left atrial filling pressures. -The echocardiographic findings are compatible with an infiltrative cardiomy opathy which correlates with her diagnosis of multiple myeloma and cardiology speculates that she perhaps has infiltrative cardiomyopathy and that the fluid retention has occurred with her chemotherapy agents including use of corticosteroids. -03/02/19: In AM blood pressure somewhat low normotensive and nurse held the AM dose of the recently ordered metoprolol 12.5 mg BID as ordered by cardiology. Medical doctor discussed with patient that because of the pleural effusions and lower extremity swelling that she will need to be on some stable regimen of diuretic. Lasix oral 20 mg morning dose ordered for 03/02/19 for now and tentatively 40 mg oral daily starting on 03/03/19 unless otherwise adjusted by cardiology (2) Bilateral pleural effusion: -treatment of pleural effusions with diuretic as above (3) Elevated troponin: -troponins peaked when 0.089 on arrival and then plateau 0.072, 0.086 -no chest pain -troponins may be from acute diastolic congestive heart failure and not coronary artery disease (4) Multiple myeloma: -Discussed by telephone with Dr. Juan A Luevano, patient's oncologist and he agrees with holding all of patient's outpatient multiple myeloma therapy in case of any contribution by those medications to acute diastolic congestive heart failure (patient was on outpatient basis starting on 01/29/19 on velcade once/weekm Revlimid for 21 days, decadron). Hospitalist requested that Dr. Luevano arrange for her to be seen by him in clinic in 1 week (5) DVT prophylaxis: -switch to from SCDs/Teds alone to Lovenox 40 mg daily Follow-up: PCP Dr. Boyce upon discharge along with appropriate follow-up [facility] oncology Dr. Luevano Subjective Patient seen and examined at bedside. breathing on room air. some lung congestion. patient reports lower extremity edema improved by IV Lasix dose yesterday. Discussed by telephone with Dr. Juan A Luevano, patient's oncologist and he agrees with holding all of patient's outpatient multiple myeloma therapy in case of any contribution by those medications to acute diastolic congestive heart failure (patient was on outpatient basis starting on 01/29/19 on velcade once/weekm Revlimid for 21 days, decadron). Hospitalist requested that Dr. Luevano arrange for her to be seen by him in clinic in 1 week In AM blood pressure somewhat low normotensive and nurse held the AM dose of the recently ordered metoprolol 12.5 mg BID as ordered by cardiology. Medical doctor discussed with patient that because of the pleural effusions and lower extremity swelling that she will need to be on some stable regimen of diuretic. Lasix oral 20 mg morning dose ordered for 03/02/19 for now and tentatively 40 mg oral daily starting on 03/03/19 unless otherwise adjusted by cardiology Review of Systems Review of Systems: All systems reviewed & are unremarkable except as noted in HPI & below Physical Exam Constitutional: comfortable Eyes: PERRL, conjunctivae normal, anicteric sclerae EOM intact bilaterally ENMT: external ear and nose normal, oropharynx normal Neck: normal visual inspection Respiratory: diminished lung sound from pleural effusions Cardiovascular: Rate/Rhythm: + bradycardic Gastrointestinal (Abdomen): normal bowel sounds, soft, nontender, no hepatosplenomegaly Musculoskeletal: Head/Neck/Chest: normocephalic and head atraumatic bilateral lower extremity edema Neurologic: PERRL, EOMI, accommodation nl, no face palsy, no dysarthria CN's II-XI intact bilaterally Psychiatric: A+Ox3, euthymic affect Results & Data Vital Signs (Past 12 Hours) Vital Signs Temp Pulse Pulse Resp BP Pulse Ox 03/02/19 07:56 61 03/02/19 07:49 36.7 C 53 L 17 93/56 L 91 03/02/19 04:10 36.5 C 66 20 104/62 93 03/01/19 23:50 70 03/01/19 23:36 36.6 C 63 19 99/53 L 94
--- NOTE | 2019-03-02 10:53 | Cardiology Progress Note ---
Date of Service March 02, 2019 Assessment & Plan (1) Acute heart failure with preserved ejection fraction (HFpEF): Patient reports her aggressive diuresis has slowed over the last 24 hours. Edema improved. Dyspnea improving but not yet at baseline. Persistent b/l rales noted She received furosemide 40 mg PO this morning about 1 hour prior to evaluation. Monitor I and O's. Await response. No additional IV furosemide to be given at this time given borderline hypotension and her symptoms of feeling "off balance". An echocardiogram was performed yesterday and reviewed with findings of severe concentric left ventricular hypertrophy, which could be consistent with history of MM vs infiltrative cardiomyopathy Consider Possible fat pad biopsy for more definitive diagnosis and r/o amyloid Currently her chemotherapy medications are being held with guidance from her oncologist, Dr. Luevano. Agree with SQ heparin for DVT prophylaxis. (2) Multiple myeloma: Holding chemotherapy medications. F/U with oncology in 1 week recommended. Case discussed with Dr. Molina. Supervising Physician Co-Signing Physician Notes Cardiology Attending Addendum: I personally performed a history and physical exam. Agree with findings, assessment, and plan as outlined by ANNA MARIE Isaac with additions as noted below. Subjective: Patient feeling improved from a shortness of breath and lower extremity edema standpoint. Sinus rhythm in the range of 60 -65 beats per minute noted at present on telemetry without significant arrhythmias overnight. Weight is improved from 71 to 64 kg, however I am not certain this is accurate, it does not appear that intake and outtake was recorded overnight last night. Physical examination: Temp Pulse Resp BP Pulse Ox 36.7 C 61 17 97/58 L 91 03/02/19 07:49 03/02/19 07:56 03/02/19 07:49 03/02/19 10:03 03/02/19 07:49 Cardiovascular regular rhythm, no murmurs, trace lower extremity edema, much improved, knee-high compression stockings in place Lungs decreased breath sounds bilaterally at the bases Neurologic no focal deficits Impression: Acute heart failure with preserved ejection fraction, echocardiogram suggestive of infiltrative (amyloid?) Cardiomyopathy in the setting of known history of multiple myeloma Plan: Continue to hold chemotherapy. Continue furosemide 40 mg daily as blood pressure tolerates. Plan to refer patient for an abdominal fat pad aspirate with the pathology department. She is agreeable. I have placed a hold on her DVT prophylaxis Lovenox pending fine-needle aspirate. Subjective Patient resting in bed comfortably. Reports her edema has improved from admission. SOB also improving, but not yet at baseline. Notes cough with deep inspirations. Mild dyspnea with ambulation in room. No chest pain. Was ambulating in hallway and felt mildly "off balance" but denies dizziness. No syncope or near synocpe. No falls. No orthopnea or PND. Review of Systems Review of Systems: All systems reviewed & are unremarkable except as noted in HPI & below Physical Exam Constitutional: WD/WN, vitals as above + ill appearing and average body habitus; no acute distress Neck: normal visual inspection Respiratory: Auscultation: + diminished lung sounds and + crackles (faint bibasilar rales b/l) Cardiovascular: RRR, no murmur, no edema Gastrointestinal (Abdomen): normal bowel sounds, soft, nontender, no hepa tosplenomegaly Musculoskeletal: no cyanosis or clubbing, extremities motor strength 5/5 Neurologic: PERRL, EOMI, accommodation nl, no face palsy, no dysarthria Psychiatric: A+Ox3, euthymic affect Results & Data Vital Signs (Past 12 Hours) Vital Signs Temp Pulse Pulse Resp BP Pulse Ox 03/02/19 10:03 97/58 L 03/02/19 07:56 61 03/02/19 07:49 36.7 C 53 L 17 93/56 L 91 03/02/19 04:10 36.5 C 66 20 104/62 93 03/01/19 23:50 70 03/01/19 23:36 36.6 C 63 19 99/53 L 94
--- NOTE | 2019-03-02 16:12 | Communication Note ---
Date of Service: March 02, 2019 I have discontinued her furosemide, pending clinical reassessment and lab assessment tomorrow. Given her significant left ventricular hypertrophy, she would be prone to hypotension if she became too volume depleted. Will reassess timing and dose of next furosemide treatment tomorrow.
[2019-03-02 22:56] LABS: Magnesium 2.1 mg/dl (1.8-2.4)
[2019-03-03 07:33] LABS: Albumin Level 2.3 gm/dl (3.4-5.0); BUN Creatinine Ratio 35.8 (10-20); Calcium 8.6 mg/dl (8.5-10.1); Creatinine Clr Calc Pharmacy 64.4 ml/min; Est GFR (African American) 98.6; Est GFR (Non-African American) 85.1
[2019-03-03 07:35] LABS: Albumin Globulin Ratio 0.4 (0.9-2); Bilirubin,Total 0.3 mg/dl (0.2-1); Globulin 5.5 gm/dl (2.5-4.0); Total Protein 7.8 gm/dl (6.4-8.2)
--- NOTE | 2019-03-03 07:43 | XRay Report ---
SINGLE VIEW CHEST CLINICAL HISTORY: Follow-up congestive heart failure. FINDINGS: An AP, portable, upright chest radiograph is compared to chest x-ray and chest CT dated 03/01/2019. The examination is degraded by portable technique and patient rotation. A moderate hiatal her corinne is noted. The heart is enlarged noting atherosclerotic calcification of the thoracic aorta. There is pulmonary vascular congestion with evidence of mild interstitial edema. There are small pleural e ffusions with bibasilar consolidation. No pneumothorax is seen. The skeletal structures are osteopeni c. The bony thorax is grossly intact. IMPRESSION: 1. Cardiomegaly with evidence of congestive failure and mild interstitial edema. This has modestly im proved from 03/01/2019. 2. Hiatal hernia. 3. There are layering pleural effusions with bibasilar consolidation. This likely represents atelecta sis. Correlate clinically for evidence of superimposed pneumonia Electronically signed by: Kashif Rios M.D. 03/03/2019 7:41 AM
[2019-03-03 08:22] VITALS: TEMP 98.1
[2019-03-03] MEDS ORDERED: FUROSEMIDE 40 MG TAB PO SCH (09:00)
[2019-03-03] MEDS: METOPROLOL TARTRATE 25 MG TAB PO SCH (09:19)
[2019-03-03] MEDS: ASPIRIN 81 MG ECTAB PO SCH (09:21)
[2019-03-03] MEDS: ACYCLOVIR 400 MG TAB PO SCH (11:41)
[2019-03-03] MEDS ORDERED: FUROSEMIDE 20 MG in SYRINGE 0 ML IV ONE (11:45)
[2019-03-03 12:08] VITALS: BP 116/70; PULSE 63; O2SAT 95
--- NOTE | 2019-03-03 12:21 | Cardiology Progress Note ---
Date of Service March 03, 2019 Assessment & Plan (1) Acute heart failure with preserved ejection fraction (HFpEF): Symptoms improving. Tolerating low dose diuretics. Small pleural effusions remain on chest xray Give one additional dose of IV lasix 20 mg now. Likely transition to oral furosemide 20 mg tomorrow. Monitor electrolytes. An echocardiogram was performed with findings of severe concentric left ventricular hypertrophy, which could be consistent with history of MM vs infil trative cardiomyopathy Fat Pad biopsy performed and results pending Stop metoprolol with bradyardia. Currently her chemotherapy medications are being held with guidance from her oncologist, Dr. Luevano. Agree with SQ heparin for DVT prophylaxis. (2) Multiple myeloma: Holding chemotherapy medications. F/U with oncology in 1 week recommended. Case discussed with Dr. Molina. Supervising Physician Co-Signing Physician Notes Cardio Attending Note: I personally performed a history and physical on the patient. I agree with Rona Troy PA-C's findings and plan with additions as below. S: feeling better. Less SOB. , Shravan, at bedside. Notes pt SOB with exertion for month, then acutely worse over last few weeks since start of chemo. Exam: lungs with minimal decreased at the bases. Impression: Acute diastolic HF (Hfpef) , findings on echo of infiltrative CM. -clinically improved. Plan: Abdominal fat pad aspirate performed 03/02, results pending, to rule out amyloid. Stable for discharge to home on furosemide 20 mg po daily, and toprol 12.5 mg daily. Keep heme/ onc follow up for next week. Cardio follow up in 1-2 weeks. lovenox x 1 DVt prophylaxis dose now. Subjective Patient feeling better today. Ambulating in hallways with less dyspnea. No chest pain. Edema improved. No dizziness, syncope or near syncope. Tolerating low dose diuretic with good diuresis. I+O's not being measured. She has been mildly bradycardic on monitor. No symptoms. Metoprolol held. Review of Systems Review of Systems: All systems reviewed & are unremarkable except as noted in HPI & below Physical Exam Constitutional: WD/WN, vitals as above Neck: trachea midline, no thyromegaly Respiratory: normal respiratory effort; no respiratory distress Auscultation: + rales (faint scattered b/l rales) Cardiovascular: RRR, no murmur, no edema Gastrointestinal (Abdomen): normal bowel sounds, soft, nontender, no hepatosplenomegaly Neurologic: PERRL, EOMI, accommodation nl, no face palsy, no dysarthria Psychiatric: A+Ox3, euthymic affect Results & Data Vital Signs (Past 12 Hours) Vital Signs Temp Pulse Pulse Resp BP Pulse Ox 03/03/19 12:05 36.7 C 63 18 116/70 95 03/03/19 08:19 36.7 C 59 L 18 98/60 L 97 03/03/19 03:06 36.4 C L 50 L 16 96/56 L 96 03/03/19 00:54 50 L
[2019-03-03] MEDS ORDERED: ENOXAPARIN INJ 40 MG/0.4 ML SYR SQ ONE (12:56)
--- NOTE | 2019-03-03 14:34 | XRay Report ---
XR chest 2V PA/lateral CLINICAL HISTORY: f/u chf dyspnea COMPARISON STUDY: 03/03/2019 7:22 AM FINDINGS: Unchanged fixed hiatal hernia. Improving prominent pulmonary vasculature. Superimposed infi ltrate left base is similar. Slight blunting left lateral costophrenic angle is unchanged. IMPRESSION: 1. Slight improvement of the pre-existing congestive failure. 2. Unchanged superimposed parenchymal infiltrate left base. 3. Fixed hiatal hernia. The above report was generated using voice recognition software. It may contain grammatical, syntax or spelling errors. Electronically signed by: Frank Castellanos M.D. 03/03/2019 2:33 PM
--- NOTE | 2019-03-03 14:44 | Hospitalist Progress Note ---
Date of Service March 03, 2019 Assessment & Plan (1) Acute CHF: Acute heart failure with preserved ejection fraction (HFpEF): Present on admission with worsening SOB and lower extremities edema Chest x-ray on admission showed Cardiomegaly with evidence of congestive failure and mild interstitial edema. CTA chest showed no evidence for PE, but moderate bilateral pleural effusions with associated atelectasis and CHF. ProBNP on admission was 2004 She received 20 mg IV Lasix in ED and another dose of 20 mg IV Lasix by cardiology in the evening of admission ECHO showed severe concentric left ventricular hypertrophy. Normal to hyperdynamic left ventricular systolic function, mild biatrial enlargement, and significant diastolic dysfunction with Doppler findings suggestive of elevated LV and left atrial filling pressures.The echocardiographic findings are compatible with an infiltrative cardiomyopathy Cardiology on board Repeat CXR today showed slight improvement of the pre-existing congestive failure. Lasix 20mg IVx1 given today Case discussed with Dr. Molina recommended to discharge on lasix 20mg daily and metoprolol 12.5mg daily Abdominal fat pad aspirate performed 03/02, FAT PAD ASPIRATION: NO AMYLOID PROTEIN IDENTIFIED WITH CONGO RED SPECIAL STAIN. Follow up with cardiology in 1-2 weeks Check BMP in 1 week Fluid restriction to 1.5 L daily (2) Bilateral pleural effusion: Continue Lasix 20mg daily Clinically improves significantly (3) Elevated troponin: Possible related to Acute CHF Troponin peaked when 0.089 on arrival and then plateau 0.072, 0.086 EKG showed lateral T wave inversions in V5 and V6 on admssion Denies any chest pain ECHO showed no wall motion abnormality Stable (4) Multiple myeloma: Previous hospitalist discussed by telephone with Dr. Juan A Luevano, patient's oncologist and he agrees with holding all of patient's outpatient multiple myeloma therapy in case of any contribution by those medications to acute diastolic congestive heart failure (patient was on outpatient basis starting on 01/29/19 on velcade once/weekm Revlimid for 21 days, decadron). Hospitalist requested that Dr. Luevano arrange for her to be seen by him in clinic in 1 week FAT PAD ASPIRATION done on 03/02: NO AMYLOID PROTEIN IDENTIFIED WITH CONGO RED SPECIAL STAIN. (5) DVT prophylaxis: Switched from SCDs/Teds to Lovenox 40 mg daily Follow-up with PCP Dr. Boyce upon discharge along with appropriate follow- up with oncology Dr. Luevano Subjective Pt was seen and examined Sitting in bed with no distress Pt said that she feels much better She has been walking around with no distress Denies any chest pain, palpitation, dizziness and SOB Physical Exam Physical Exam: General- No acute distress Head- atraumatic Eyes- PERRL, EOMI, ENT- oropharynx clear Neck- supple, no JVD Lungs- clear to auscultation Heart- regular rhythm; no murmur Abdomen- normal bowel sounds, soft, nontender Extremities- no calf tenderness Neuro- alert, oriented x 3; PERRL, EOMI; no facial palsy; no dysarthria Skin- warm & dry Results & Data Vital Signs (Past 12 Hours) Vital Signs Temp Pulse Resp BP Pulse Ox 03/03/19 12:05 36.7 C 63 18 116/70 95 03/03/19 08:19 36.7 C 59 L 18 98/60 L 97 03/03/19 03:06 36.4 C L 50 L 16 96/56 L 96
--- NOTE | 2019-03-04 08:19 | Discharge Summary ---
Date of Service March 04, 2019 Admission HPI Per Admitting Provider This is a 73-year-old female with significant past medical history for multiple myeloma who presents to [facility] ED secondary to shortness of breath and lower extremity edema x1.5 weeks. Initially diagnosed with multiple myeloma back in 2016 but most recently started chemotherapeutic regimen by Dr. Luevano. On 02/01 she started Revlimid, Velcade and Decadron. Revlimid 25 mg once daily for 3 weeks followed by 1 week off. She completed 1 total cycle and is on day 1 of cycle 2. Takes Decadron 20 mg once weekly and took prior to arrival. She also receives Velcade 1.3 mg subcu injections every week. Over the past week and a half she has noted increased lower extremity swelling, shortness of breath with exertion, shortness of breath at rest, precordial chest pressure with exertion. Symptoms resolved immediately with rest. She denies any tree chest pain. Approximately 10 pound weight gain is noted. Further complains of nausea, decreased appetite and early satiety. She denies any fever, chills, sweats, l ightheadedness, dizziness, syncope, URI symptoms, productive cough, emesis, abdominal pain, increased urgency or frequency with urination, dysuria, hematochezia, melena. She was seen by Dr. Luevano in the office today and was referred to ED secondary to increased shortness breath with exertion and hypoxia noted to 83% with exertion. Denies prior history of cardiac disease or cardiac surgery. Positive family history mother who is at age 90 with CAD. Father and son with hypertension. She denies any smoking or alcohol use. In ED her initial troponin was 0.089 with lateral T wave inversions in V5 and V6. She denied chest pain during ED evaluation. proBNP elevated 2004, BUN 15, creatinine 0.70, H&H 11.7 and 30.0, platelet 304, urinalysis unremarkable. Chest x-ray and CTA findings were significant for negative PE, but moderate bilateral pleural effusions with associated atelectasis and CHF. She received 20 mg IV Lasix. Admission Exam Per Admitting Provider Constitutional: WD/WN, female, vitals as above, NAD, sitting up in bed, pleasant, conversing easily Head: Normocephalic, Atraumatic Eyes: PERRL, conjunctivae normal, anicteric sclerae ENMT: external ear and nose normal, oropharynx normal Neck: trachea midline, no thyromegaly normal visual inspection Respiratory: normal respiratory effort, lungs clear to auscultation, no wheeze, rales, rhonchi. Normal insp/exp effort, no accessory muscle use Cardiovascular: RRR, no S3 or S4, no murmur, bilateral +1 pitting edema pretibially Vessels: no JVD or carotid bruit Chest: normal inspection of chest Abdomen: normal bowel sounds, soft, nontender, no hepatosplenomegaly Musculoskeletal: no cyanosis or clubbing, extremities motor strength 5/5 Skin: no rashes, warm and dry normal turgor Neurologic: PERRL, EOMI, accommodation nl, no face palsy, no dysarthria CN's II-XI intact bilaterally and moves all extremities Psychiatric: A+Ox3, euthymic affect Lymphatic: no cervical or axillary lymphadenopathy : deferred Principal Diagnosis Acute heart failure with preserved ejection fraction Bilateral pleural effusion Elevated troponin Multiple myeloma Discharge Exam General- No acute distress Head- atraumatic Eyes- PERRL, EOMI, ENT- oropharynx clear Neck- supple, no JVD Lungs- clear to auscultation Heart- regular rhythm; no murmur Abdomen- normal bowel sounds, soft, nontender Extremities- no calf tenderness Neuro- alert, oriented x 3; PERRL, EOMI; no facial palsy; no dysarthria Skin- warm & dry Discharge Data Allergies Allergy/AdvReac Type Severity Reaction Status Date / Time No Known Allergies Allergy Unknown ` Verified 03/01/19 10:14 Consultations 03/01/19 12:07 ED Decision to Admit Stat 03/01/19 12:52 Consult Cardiology Routine Ordered Studies 03/01/19 10:28 CT angio chest PE protocol Stat SINGLE VIEW CHEST CLINICAL HISTORY: Atypical chest pain. FINDINGS: An AP, portable, upright chest radiograph is compared to study dated 05/12/2015 and correlated with PET CT dated 09/17/2017. The examination is degrad ed by portable technique and patient rotation. A moderate hiatal hernia is noted. The heart is enlarged noting atherosclerotic calcification of the thoracic aorta. There is pulmonary vascular congestion with evidence of interstitial edema. There are small pleural effusions with bibasilar consolidation. No pneumothorax is seen. The skeletal structures are osteopenic. The bony thorax is grossly intact. IMPRESSION: 1. Cardiomegaly with evidence of congestive failure and mild interstitial edema. 2. Hiatal hernia. 3. There are layering pleural effusions with bibasilar consolidation. This likely represents atelectasis. Correlate clinically for evidence of superimposed pneumonia Electronically signed by: Kashif Rios M.D. 03/01/2019 10:14 AM Dictated: 03/01/19 1012 Transcribed: 03/01/[address] ANGIOGRAM OF THE CHEST CLINICAL HISTORY: Atypical chest pain. Dyspnea. COMPARISON STUDY: Chest x-ray dated 03/01/2019. PET CT dated 09/17/2017. TECHNIQUE: Following the IV administration of 120 cc of Optiray 320, CT angiogram of the chest was performed from the upper abdomen to the thoracic inlet utilizing the pulmonary embolus protocol. Images are reviewed in the axial, sagittal, and coronal planes. 3-D MIPS images are created and assessed. IV contrast was administered without complication. A dose lowering technique was utilized adhering to the principles of ALARA. CT DOSE: 342.67 mGycm FINDINGS: Thyroid: Imaged portions of the thyroid gland are normal in size and attenuation. Thoracic aorta: There is atherosclerotic calcification of the thoracic aorta, which is normal in caliber and demonstrates standard 3-vessel arch anatomy. No dissection is seen. Pulmonary vasculature: The pulmonary trunk is normal in caliber. There are no filling defects identified in main, lobar, or segmental pulmonary branches to suggest pulmonary embolus. Heart: The heart is enlarged and without pericardial effusion. Lungs and pleural spaces: There are moderate pleural effusions, right larger than left with associated atelectasis. There is diffuse intralobular septal and peribronchial thickening. The trachea and central airways are clear. Mediastinum: There is no mediastinal lymphadenopathy. Minnie: Clear. Axillae: There is no axillary lymphadenopathy. Upper abdomen: There is a moderate to large hiatal hernia. Partially visualized upper abdominal viscera is within normal limits. Skeletal structures: The skeletal structures are osteopenic. Degenerative change and hyperkyphosis are noted in the thoracic spine. No lytic or blastic bony lesions are seen. IMPRESSION: 1. There is no evidence of pulmonary embolus in the main, lobar, or segmental pulmonary arteries. 2. Cardiomegaly with evidence of congestive failure. 3. Moderate pleural effusions, right larger than left with associated atelectasis. 4. Moderate to large hiatal hernia. Electronically signed by: Kashif Rios M.D. 03/01/2019 11:35 AM Dictated: 03/01/19 1130 Transcribed: 03/01/19 1130 SINGLE VIEW CHEST CLINICAL HISTORY: Follow-up congestive heart failure. FINDINGS: An AP, portable, upright chest radiograph is compared to chest x-ray and chest CT dated 03/01/2019. The examination is degraded by portable technique and patient rotation. A moderate hiatal hernia is noted. The heart is enlarged noting atherosclerotic calcification of the thoracic aorta. There is pulmonary vascular congestion with evidence of mild interstitial edema. There are small pleural effusions with bibasilar consolidation. No pneumothorax is seen. The skeletal structures are osteopenic. The bony thorax is grossly intact. IMPRESSION: 1. Cardiomegaly with evidence of congestive failure and mild interstitial edema. This has modestly improved from 03/01/2019. 2. Hiatal hernia. 3. There are layering pleural effusions with bibasilar consolidation. This likely represents atelectasis. Correlate clinically for evidence of superimposed pneumonia Electronically signed by: Kashif Rios M.D. 03/03/2019 7:41 AM Dictated: 03/03/19 0733 Transcribed: 03/03/19 0733 XR chest 2V PA/lateral CLINICAL HISTORY: f/u chf dyspnea COMPARISON STUDY: 03/03/2019 7:22 AM FINDINGS: Unchanged fixed hiatal hernia. Improving prominent pulmonary vasculature. Superimposed infiltrate left base is similar. Slight blunting left lateral costophrenic angle is unchanged. IMPRESSION: 1. Slight improvement of the pre-existing congestive failure. 2. Unchanged superimposed parenchymal infiltrate left base. 3. Fixed hiatal hernia. The above report was generated using voice recognition software. It may contain grammatical, syntax or spelling errors. Electronically signed by: Frank Castellanos M.D. 03/03/2019 2:33 PM Dictated: 03/03/19 1431 Transcribed: 03/03/19 1431 Hospital Course (1) Acute CHF: Acute heart failure with preserved ejection fraction (HFpEF): Present on admission with worsening SOB and lower extremities edema Chest x-ray on admission showed Cardiomegaly with evidence of congestive failure and mild interstitial edema. CTA chest showed no evidence for PE, but moderate bilateral pleural effusions with associated atelectasis and CHF. ProBNP on admission was 2004 She received 20 mg IV Lasix in ED and another dose of 20 mg IV Lasix by cardiology in the evening of admission ECHO showed severe concentric left ventricular hypertrophy. Normal to hyperdynamic left ventricular systolic function, mild biatrial enlargement, and significant diastolic dysfunction with Doppler findings suggestive of elevated LV and left atrial filling pressures.The echocardiographic findings are compatible with an infiltrative cardiomyopathy Cardiology on board Repeat CXR today showed slight improvement of the pre-existing congestive failu re. Lasix 20mg IVx1 given today Case discussed with Dr. Molina recommended to discharge on lasix 20mg daily and metoprolol 12.5mg daily Abdominal fat pad aspirate performed 03/02, FAT PAD ASPIRATION: NO AMYLOID PROTEIN IDENTIFIED WITH [place] RED SPECIAL STAIN. Follow up with cardiology in 1-2 weeks Check BMP in 1 week Fluid restriction to 1.5 L daily (2) Bilateral pleural effusion: Continue Lasix 20mg daily Clinically improves significantly (3) Elevated troponin: Possible related to Acute CHF Troponin peaked when 0.089 on arrival and then plateau 0.072, 0.086 EKG showed lateral T wave inversions in V5 and V6 on admssion Denies any chest pain ECHO showed no wall motion abnormality Stable (4) Multiple myeloma: Previous hospitalist discussed by telephone with Dr. Juan A Luevano, patient's oncologist and he agrees with holding all of patient's outpatient mu ltiple myeloma therapy in case of any contribution by those medications to acute diastolic congestive heart failure (patient was on outpatient basis starting on 01/29/19 on velcade once/weekm Revlimid for 21 days, decadron). Hospitalist requested that Dr. Luevano arrange for her to be seen by him in clinic in 1 week FAT PAD ASPIRATION done on 03/02: NO AMYLOID PROTEIN IDENTIFIED WITH CON[place] RED SPECIAL STAIN. (5) DVT prophylaxis: Switched from SCDs/Teds to Lovenox 40 mg daily Follow-up with PCP Dr. Boyce upon discharge along with appropriate follow- up with oncology Dr. Luevano Total Time Total Time Spent Total Time Spent (In Minutes): 35 minutes Total Time Includes: Examination of the Patient, Discharge Planning, Medication Reconciliation, Communication With Other Providers and Other Discharge Plan Discharge Items Patient Disposition: Home - Self-Care Reason For Visit: ACUTE CHF Discharge Diagnosis: Acute heart failure with preserved ejection fraction Bilateral pleural effusion Elevated troponin Multiple myeloma Activity: Resume your previous activity Activity Comment: As tolerated Non-emergency contact: Primary Care Provider, [employer] And Do[employer] Installer and Oncologist Call non-emergency contact if: you have any medication questions Follow-up/Referrals: Rosendo Boyce, [Primary Care Provider] - Diet: Heart Healthy Addtl Attending Provider Instructions: Follow up with primary care provider Dr. Carroll (Dr. Boyce's colleague) on 03/08 @ 11:05 AM Follow up with Cardiology Olga Troy PA-C on 03/17 @ 2:45 PM Follow up with your Oncology/Hematology Dr. Luevano Check BMP in 1 week to monitor electrolytes and kidney function Abdominal fat pad aspirate biopsy pending (Your physician will discuss result with you) Continue Fluid restriction to 1.5 L daily Follow a low salt diet CHF Discharge Instructions Call your Primary Care doctor if any of the following symptoms or problems start or get worse: Shortness of breath or difficulty breathing Wake up at night short of breath Chest pain Cough Swelling of your hands, feet, or legs More fatigued or tired with your normal activity Palpitations - sudden fast heart beats WEIGHT Weigh yourself every morning after using the bathroom. Use the same scale. Wear the same amount of clothing. Write your weight down on a chart. Call your Primary Care doctor if you gain more than 2-3 pounds in 1-2 days. MEDICATIONS Use this discharge instruction sheet for medication instructions. Take your medications at the time your doctor ordered. Do not skip a dose of your medicines. If you miss a dose of medicine, take it as soon as possible, but DO NOT DOUBLE A DOSE. Read your medicine information when you get home. Know all of the side effects of your medicine. If in doubt, ask your pharmacist Call your Primary Care doctor's office if you have any side effects. Be sure all of your doctors know what medicine and herbs you take (including cold, flu, and herbal medicine). Take the following with you to your follow-up doctor appointments: Weight Chart Medication List List of questions Do not drink excessive alcohol, beer or wine. Pending Studies at Discharge: Yes Studies:: Abdominal Fat Pad biopsy Stand-Alone Forms: Call Back Authorization, [employer], Smoking Cessation Medications and DC Order Prescriptions: New furosemide 20 mg Tablet 20 mg PO QAM 30 Days Qty: 30 RF: 0 metoprolol succinate 25 mg Tablet Extended Release 24 Hr 12.5 mg PO QAM 30 Days Qty: 15 RF: 0 Continued ondansetron HCl 8 mg tablet 8 mg PO Q8H PRN (Reason: Nausea) RF: 0 prochlorperazine maleate 10 mg tablet 10 mg PO Q6H PRN (Reason: Nausea) RF: 0 acyclovir 400 mg tablet 400 mg PO BID RF: 0 dexamethasone 4 mg tablet 40 mg PO WK RF: 0 Revlimid 25 mg capsule 25 mg PO UD RF: 0 aspirin 81 mg Tablet,Delayed Release (Dr/Ec) 81 mg PO DAILY RF: 0 Discharge Orders: Discharge Order (Routine); Ordered 03/03/19 Ordered By: Toan Wallace/Other Patient Handouts: A1C Admission Data Admit Date/Time: 03/01/19 12:52 Attending Provider: Toan Awan Admit Provider: Navjot Parikh Primary Care Provider: Rosendo Boyce Other Providers: Navjot Parikh ; Garrett Molina ; Tino Santana Other Interventions: Discharge Summary Assessment (RN) Last Done: 03/03/19 15:26 DC Date/Time DO NOT enter until pt leaves facility: 03/03/19 16:00
[2019-03-04] MEDS ORDERED: FUROSEMIDE 20 MG TAB PO SCH (09:00)
[2019-03-04] MEDS ORDERED: METOPROLOL SUCC 25MG EXT REL TAB PO SCH (09:00)
--- NOTE | 2019-03-04 11:39 | Communication Note ---
Date of Service: March 04, 2019 Fat pad biopsy was negative for amyloid. I attempted to reach patient by phone ,but received no answer. I left a voicemail stating fat pad sample was normal. I am still concerns regarding patient's echocardiogram findings. Will discuss future testing / treatment plans at the time of her outpatient follow up.
== END 2019-03-03 16:00 | disposition home or self-care (01) | DRG 292 ==
LOC: ED 09:19 → SUATTDRO 12:52 → 2S 12:52

== ENCOUNTER 2021-05-14 14:44 | Inpatient (IN) ==
--- NOTE | 2021-05-14 16:52 | Emergency Department Note ---
Impression & Plan Acute heart failure with preserved ejection fraction (HFpEF), Elevated troponin ED Provider Note Name: ARIA MAGANA Age: 75 Sex: F Arrives Via: Walk-In Informant: Patient ED Provider: Jackson Ferrara MD Chief Complaint: Shortness of breath Impression: As per impressions above Medical Decision Makin-year-old female with a history of multiple myeloma and amyloid heart disease arrives for evaluation of worsening shortness of breath and fluid overload. By examination she is significantly fluid overloaded with pitting edema all the way up to her abdomen and low back. She has lung exam consistent with pulmonary edema and chest x-ray is consistent with diffuse congestive failure and bilateral pleural effusions. Laboratory work-up reveals an elevated troponin slightly above her baseline. Her EKG is questionable A. fib versus normal sinus rhythm PACs. Her BNP is mildly elevated. I discussed the case with her director clinical operations Dr. Molina who evaluated her in the ER and agrees with proceeding with Lasix though suggests holding on heparin at this time. He furthermore advised hospitalization which I do feel is reasonable given she has failed increased Lasix as an outpatient continues to gain weight and is quite overl oaded at this time. Hospitalist were consulted for further management. Patient is comfortable with this plan. Patient was initially seen and evaluated with initial work-up in a triage stub waiting room due to the extreme overcrowding in the ER during the pandemic. She eventually received a bed and was started on IV Lasix. Throughout this she was calm and cooperative. Her and her 's understanding of this difficult time was very much appreciated Prior Medical Record and Triage/Nursing Notes reviewed by Me Additional history obtained from chart & director clinical operations Differentials:CHF, pulmonary edema, ACS, A. fib, liver issue, DVT, PE, amongst other possibilities Vital Signs: reviewed and remarkable for no significant abnormalities Interventions: 40 mg IV Lasix Labs:Reviewed and remarkable for mildly elevated troponin Imagin view chest x-ray with bilateral pleural effusions and moderate congestive failure EKG:Per My Interpretation: Indication shob: NSR vs afib with PACs, 67 bpm, qtc 445. No Ectopy. No Ischemia. Compared to EKG 03/03/19, Afib would be new Consults:Dr Molina & Dr Cortes Plan: Disposition:Hospitalization. Condition: Fair History of Present Illness:Pleasant 75-year-old female arrives for evaluation of shortness of breath. Patient notes a history of multiple myeloma, CHF and a thickened heart on ultrasound. Patient notes for the last 2 to 3 months she has been having worsening shortness of breath. This is coincided with treatment of her multiple myeloma. She notes the last few days the shortness of breath has rapidly been worsening. It is associated with a weight gain of 12+ pounds in the last few weeks. She has been increasing her Lasix as an outpatient via the direction of her director clinical operations without improvement. She states her swelling of her legs has now extended into her abdomen and her back. She states anytime she eats she gets nauseous and has no appetite. She denies any specific abdominal pain or back pain or chest pain or syncope. Shortness of breath is much worse with any exertion or laying down. She has no significant cough nor productive cough with this. She denies any runny nose, headaches, fevers, chills, vomiting, syncope, chest pain, back pain, rashes, bleeding, bruising, urina ry/bowel symptoms or other symptoms. She states she has continued to make urine. Taking Lasix as not improved her weight gain or her shortness of breath. ROS: See above HPI for pertinent positives & negatives. A total of 10 systems reviewed and were otherwise negative. Past Medical History:CHF, multiple myeloma Past Surgical History:Tubal ligation Family History:See Below Social History:See Below Home Medications:See Below Allergies:No known drug allergies Vitals:Blood Pressure: 131/73, Pulse 86, RR 20, T 36.6C, O2 98% on RA Physical Exam: GENERAL: Patient is tired appearing and in moderate distress. EYES: No scleral icterus, unremarkable pupils. ENT: Mucous membranes moist, no nasal congestion. NECK: No masses appreciated, nomeningismus, trachea is midline. RESPIRATORY: Moderate dyspnea decreased breath sounds throughout crackles at the apexes CARDIOVASCULAR: Irregular in the 80s, no murmur appreciated GASTROINTESTINAL: Abdomen soft, non-tender, no peritonitis.Bowel sounds positive.No masses appreciated. BACK: No midline tenderness, no CVA tenderness. Pitting edema lower back EXTREMITIES: Normal motion all extremities, no cyanosis, 2-3+ pitting edema bilateral lower legs NEUROLOGIC: Alert and oriented, no acute motor or sensory deficits, no focal weakness, cranial nerves grossly intact. SKIN: No rash, no jaundice, no diaphoresis. PSYCH: Appropriate GCS: 15 ED Course: Times/Reassessments: Stable on repeat evaluations and agreeable to hospitalization. Jackson Ferrara MD Past Med/Surg History Medical History Cardiac amyloidosis Chronic diastolic heart failure GI bleed Multiple myeloma Surgical History History of colonoscopy History of tubal ligation Family History Father , 50s Stroke Mother , 90 Coronary heart disease Social History Smoking Status: Never smoker Second Hand Exposure: No; Hx Alcohol Use: No Hx Substance Use: No Preferred Language: French 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: Effective Assistant Infant Teacher Required: No Beliefs That Will Affect Care: None marital status: Current Living Situation: Spouse Other Information That Helps Us Care for You: No Feels Safe at Home: Yes Assistive Devices: Walker Allergies Allergies Allergy/AdvReac Type Severity Reaction Status Date / Time No Known Allergies Allergy Unknown ` Verified 05/14/21 18:29 Home Meds Home Medications Medication Instructions Recorded Confirmed aspirin 81 mg tablet,delayed 81 mg PO DAILY 03/01/19 05/14/21 release ondansetron HCl 8 mg tablet 8 mg PO Q8H PRN 03/01/19 05/14/21 cholecalciferol (vitamin D3) 25 25 mcg PO DAILY 05/14/21 05/14/21 mcg (1,000 unit) capsule (Vitamin D3) cyanocobalamin (vitamin B-12) 1,000 mcg PO DAILY 05/14/21 05/14/21 1,000 mcg tablet (Vitamin B-12) furosemide 40 mg tablet 80 mg PO DAILY 05/14/21 05/14/21 metoprolol succinate 25 mg 12.5 mg PO DAILY 05/14/21 05/14/21 tablet,extended release 24 hr nutritional supplement-fiber oral 1 ea PO DAILY 05/14/21 05/14/21 liquid omeprazole 20 mg tablet,delayed 20 mg PO DAILY PRN 05/14/21 05/14/21 release pomalidomide 2 mg capsule 2 mg PO DIRECTED 05/14/21 05/14/21 potassium chloride 20 mEq 20 meq PO DAILY 05/14/21 05/14/21 tablet,extended release(part/cryst) Results & Data (ED) Vital Signs Vital Signs - 24 hr 05/14/21 14:52 05/14/21 18:35 Temperature 36.6 C Temperature Source Temporal Artery Scan Pulse Rate 86 Pulse Rate [Left Radial] 63 Pulse Rhythm [Left Radial] Irregular Pulse Strength [Left Radial] Normal Respiratory Rate 20 28 H Respiratory Effort / Characteristics Non-Labored Spontaneous Non-Labored Spontaneous Respiratory Depth Normal Normal Respiratory Pattern Regular Regular Blood Pressure 131/73 Blood Pressure [Right Arm] 114/83 Blood Pressure Mean 92 Blood Pressure Mean [Right Arm] 93 Blood Pressure Position [Right Arm] Sitting Pulse Oximetry 98 93 Oxygen Delivery Method Room Air Room Air Sepsis Recent Fever Within 48 Hours No Sepsis New/Unexplained Change in Mental Status No Sepsis Action Taken by Nursing No Action Required Laboratory Data Result diagrams: 05/15/21 04:10 05/15/21 05:38 Lab Results 05/14/21 05/14/21 05/14/21 Range/Units 16:38 16:38 16:38 WBC 5.38 (4.8-10.8) K/uL RBC 4.67 (4.2-5.4) M/uL Hgb 14.7 (12.0-16.0) g/dL Hct 46.0 (37-47) % MCV 98.5 (80-100) fL MCH 31.5 (25-34) pg MCHC 32.0 (32-36) g/dL RDW Std Deviation 60.0 H (36.4-46.3) fL RDW Coeff of Nasir 16.8 H (11.5-14.5) % Plt Count 143 (130-400) K/uL MPV 12.7 H (7.4-10.4) fL Immature Gran % (Auto) 0.2 % Neut % (Auto) 73.8 % Lymph % (Auto) 15.6 % Gilchrist % (Auto) 8.9 % Eos % (Auto) 1.1 % Baso % (Auto) 0.4 % Neut # (Auto) 3.97 (1.4-6.5) K/uL Lymph # (Auto) 0.84 L (1.2-3.4) K/uL Gilchrist # (Auto) 0.48 (0.11-0.59) K/uL Eos # (Auto) 0.06 (0-0.5) K/uL Baso # (Auto) 0.02 (0-0.2) K/uL Immature Gran # (Auto) 0.01 (0.00-0.02) K/uL PT 11.3 (9.0-12.0) Seconds INR 1.1 (0.9-1.1) APTT 25.1 (21.0-31.0) Seconds PTT Ratio 1.0 Sodium 139 (136-145) mmol/L Potassium 3.7 (3.5-5.1) mmol/L Chloride 103 (98-107) mmol/L Carbon Dioxide 28 (21-32) mmol/L Anion Gap 8 (3-11) BUN 19 (6-23) mg/dl Creatinine 0.60 (0.6-1.2) mg/dl Est Cr Clr Drug Dosing Not Reportable Est GFR ( Amer) 104.1 ml/min Est GFR (Non-Af Amer) 89.8 ml/min BUN/Creatinine Ratio 31.7 H (10-20) Glucose 82 (70-99(Fasting)) mg/dl Calcium 9.1 (8.5-10.1) mg/dl Magnesium 2.0 (1.7-2.4) mg/dl Total Bilirubin 1.0 (0.2-1.0) mg/dl AST 24 (13-39) U/L ALT 18 (7-52) U/L Alkaline Phosphatase 113 H (34-104) U/L Troponin I 0.19 H* (0-0.04) ng/ml B-Natriuretic Peptide (0-100) pg/ml Total Protein 8.8 H (6.0-8.3) gm/dl Albumin 3.4 (3.4-5.0) gm/dl Globulin 5.4 H (2.5-4.0) gm/dl Albumin/Globulin Ratio 0.6 L (0.9-2) SARS-CoV-2, RNA, NAAT (NEGATIVE) 05/14/21 05/14/21 Range/Units 16:46 18:19 WBC (4.8-10.8) K/uL RBC (4.2-5.4) M/uL Hgb (12.0-16.0) g/dL Hct (37-47) % MCV (80-100) fL MCH (25-34) pg MCHC (32-36) g/dL RDW Std Deviation (36.4-46.3) fL RDW Coeff of Nasir (11.5-14.5) % Plt Count (130-400) K/uL MPV (7.4-10.4) fL Immature Gran % (Auto) % Neut % (Auto) % Lymph % (Auto) % Gilchrist % (Auto) % Eos % (Auto) % Baso % (Auto) % Neut # (Auto) (1.4-6.5) K/uL Lymph # (Auto) (1.2-3.4) K/uL Gilchrist # (Auto) (0.11-0.59) K/uL Eos # (Auto) (0-0.5) K/uL Baso # (Auto) (0-0.2) K/uL Immature Gran # (Auto) (0.00-0.02) K/uL PT (9.0-12.0) Seconds INR (0.9-1.1) APTT (21.0-31.0) Seconds PTT Ratio Sodium (136-145) mmol/L Potassium (3.5-5.1) mmol/L Chloride (98-107) mmol/L Carbon Dioxide (21-32) mmol/L Anion Gap (3-11) BUN (6-23) mg/dl Creatinine (0.6-1.2) mg/dl Est Cr Clr Drug Dosing Est GFR ( Amer) ml/min Est GFR (Non-Af Amer) ml/min BUN/Creatinine Ratio (10-20) Glucose (70-99(Fasting)) mg/dl Calcium (8.5-10.1) mg/dl Magnesium (1.7-2.4) mg/dl Total Bilirubin (0.2-1.0) mg/dl AST (13-39) U/L ALT (7-52) U/L Alkaline Phosphatase (34-104) U/L Troponin I (0-0.04) ng/ml B-Natriuretic Peptide 2737 H (0-100) pg/ml Total Protein (6.0-8.3) gm/dl Albumin (3.4-5.0) gm/dl Globulin (2.5-4.0) gm/dl Albumin/Globulin Ratio (0.9-2) SARS-CoV-2, RNA, NAAT NEGATIVE (NEGATIVE) Administered Medications Heparin Sodium (Porcine) (Heparin Sod 5,000 Unit/0.5 Ml Vial) 5,000 units SQ Q8H RYANN Stop: 06/14/21 00:00 Last Admin: 05/15/21 00:43 Dose: 5,000 units Documented by: [id number] Discontinued Medications Furosemide (Furosemide 40 Mg/4 Ml Vial) 40 mg IV ONE ONE Stop: 05/14/21 17:20 Last Admin: 05/14/21 18:37 Dose: 40 mg Documented by: [id number] Discharge Plan Visit Data Chief Complaint: Cardiac Assessment Stated Complaint: HEART CONDITION, FLUID IN CHEST, DR STEVEN REF ED Provider: Jackson Ferrara Discharge Problem: Acute heart failure with preserved ejection fraction (HFpEF), Elevated troponin Patient Disposition: Admitted As Inpatient Discharge Instructions Interventions: ED Discharge Assessment Last Done: 05/14/21 23:08
[2021-05-14 17:03] LABS: Basophils # (auto) 0.02 K/uL (0-0.2); Basophils % (auto) 0.4 %; Eosinophils # (auto) 0.06 K/uL (0-0.5); Eosinophils % (auto) 1.1 %; Hemoglobin 14.7 g/dL (12.0-16.0); Immature Granulocytes # (auto) 0.01 K/uL (0.00-0.02); Immature Granulocytes % (auto) 0.2 %; Lymphocytes # (auto) 0.84 K/uL (1.2-3.4); Lymphocytes % (auto) 15.6 %; Mean Corpuscular Hemoglobin 31.5 pg (25-34); Mean Corpuscular Volume 98.5 fL (80-100); Mean Platelet Volume 12.7 fL (7.4-10.4); Monocytes # (auto) 0.48 K/uL (0.11-0.59); Monocytes % (auto) 8.9 %; Neutrophils # (auto) 3.97 K/uL (1.4-6.5); Neutrophils % (auto) 73.8 %; Platelet Count 143 K/uL (130-400); RDW Coefficient of Variation 16.8 % (11.5-14.5); Red Blood Count 4.67 M/uL (4.2-5.4); White Blood Count 5.38 K/uL (4.8-10.8)
[2021-05-14 17:05] LABS: INR 1.1 (0.9-1.1); Partial Thromboplastin Time 25.1 Seconds (21.0-31.0); Prothrombin Time 11.3 Seconds (9.0-12.0)
--- NOTE | 2021-05-14 17:06 | XRay Report ---
XR chest 1V portable HISTORY: 75 years-old Female SOB acute shortness of breath COMPARISON: Chest radiographs 03/03/2019 TECHNIQUE: Portable AP view of the chest FINDINGS: Cardiac silhouette is enlarged. Pulmonary vascular congestion. No pneumothorax. Layering pleural effu sions with bibasilar consolidation. Hiatal hernia. Degenerative changes of the shoulders and spine. IMPRESSION: 1. Cardiomegaly with pulmonary vascular congestion. 2. Layering pleural effusions with bibasilar consolidation. ACT 112: Negative or not required by law. The above report was generated using voice recognition software. It may contain grammatical, syntax o r spelling errors. Electronically signed by: Jerzy Barton M.D. 05/14/2021 5:00 PM
[2021-05-14 17:14] LABS: Alanine Aminotransferase 18 U/L (7-52); Albumin Globulin Ratio 0.6 (0.9-2); Albumin Level 3.4 gm/dl (3.4-5.0); Alkaline Phosphatase 113 U/L (34-104); Anion Gap 8 (3-11); Aspartate Aminotransferase 24 U/L (13-39); BUN Creatinine Ratio 31.7 (10-20); Blood Urea Nitrogen 19 mg/dl (6-23); Calcium 9.1 mg/dl (8.5-10.1); Carbon Dioxide 28 mmol/L (21-32); Chloride 103 mmol/L (98-107); Est GFR (African American) 104.1 ml/min; Est GFR (Non-African American) 89.8 ml/min; Globulin 5.4 gm/dl (2.5-4.0); Glucose 82 mg/dl (70-99(Fasting)); Potassium 3.7 mmol/L (3.5-5.1); Sodium 139 mmol/L (136-145); Total Protein 8.8 gm/dl (6.0-8.3)
[2021-05-14 17:15] LABS: Troponin I 0.19 ng/ml (0-0.04)
[2021-05-14] MEDS ORDERED: Heparin IV Adult Wt-Based Standard WITH Bolus Protocol IV STA (17:19)
[2021-05-14] MEDS ORDERED: FUROSEMIDE 40 MG/4 ML VIAL IV ONE (17:19)
[2021-05-14] MEDS ORDERED: HEPARIN SOD (PORCINE) 1000 UNIT/ML IV ONE (17:34)
[2021-05-14] MEDS ORDERED: HEPARIN SODIUM/DEXTROSE 25,000 UNITS/500 ML BAG IV SCH (17:45)
--- NOTE | 2021-05-14 17:57 | Cardiology Consultation ---
Date of Consultation May 14, 2021 Assessment & Plan (1) Acute heart failure with preserved ejection fraction (HFpEF): (2) Cardiac amyloidosis: Chest x-ray reveals enlargement of the cardiac silhouette, with pulmonary vascular congestion and layering bilateral pleural effusions. Patient has had progressively overload refractory to oral diuretic therapy. Proceed with IV furosemide, 40 mg to start. Case discussed at length on [address] Vega and we are working on getting an ED bed for the patient to move her out of the fast tract waiting room. Hospital admission warranted. With regards to her EKG, I would like to wait until we have a more prolonged int erval of cardiac monitoring prior to making a decision as to whether or not she is in fact in atrial fibrillation. Hold off on systemic anticoagulation for now and will reassess tomorrow. History of Present Illness History of Present Illness Nelda Hogue is a 75 year old female seen in cardiology consultation per the request of Dr Ferrara for the evaluation of acute on chronic heart failure with preserved ejection fraction with marked volume overload. Patient is seen in the clinical pathways at this time, as she is still awaiting a bed due to high hospital/emergency department volume. She presented for routine outpatient cardiology follow-up visit today at [facility] and was found to be markedly volume overloaded with weight up 10 to 15 pounds from her previous baseline with noted symptoms of significant lower extremity edema, abdominal bloating, and orthopnea. She had been taking furosemide 40 mg which was increased to 80 mg daily but has not had relief. Currently, the time my conversation the patient has conversational dyspnea. Blood pressure is obtained at the outpatient cardiology clinic today was 124/66, weight 147 kg, blood pressure taken today in the emergency department at 1452 was 131/73. Patient has a history of known kappa light chain AL cardiac amyloidosis. She follows with [facility] Oncology (Dr. Villela) and [facility] Hematology (Dr. Luevano). She had initially been diagnosed with multiple myeloma, but was noted to have cardiac involvement when she presented to [facility] in February, with volume overload, and echocardiogram revealed findings consistent with infiltrative cardiomyopathy with severe concentric left ventricular hypertrophy and elevated diastolic filling pressures. She has had several interruptions in her chemotherapy. Per the most recent [facility] hematology/oncology note, she had discontinued taking pomalidomide in late February,. She also declined daratumumab injection, last injection was received in January 2021 . As of recent hematology oncology follow-up visit on 05/02/2021, she was started on daratumumab every 4 weekly subcutaneously and pomalidomide to 4 mg once a day for 3 weeks followed by 1 week off. Allergies Allergy/AdvReac Type Severity Reaction Status Date / Time No Known Allergies Allergy Unknown ` Verified 03/01/19 10:14 Home Medications Medication Instructions Recorded Confirmed Type acyclovir 400 mg tablet 400 mg PO BID 03/01/19 03/01/19 History aspirin 81 mg tablet,delayed 81 mg PO DAILY 03/01/19 03/01/19 History release dexamethasone 4 mg tablet 40 mg PO WK 03/01/19 03/01/19 History lenalidomide 25 mg capsule 25 mg PO UD 03/01/19 03/01/19 History (Revlimid) ondansetron HCl 8 mg tablet 8 mg PO Q8H PRN 03/01/19 03/01/19 History prochlorperazine maleate 10 mg 10 mg PO Q6H PRN 03/01/19 03/01/19 History tablet Patient History Medical History (Updated 05/14/21 @ 17:59 by Garrett Molina DO) GI bleed Multiple myeloma Surgical History History of colonoscopy History of tubal ligation Family History Father , 50s Stroke Mother , 90 Coronary heart disease Social History Smoking Status: Never smoker Second Hand Exposure: No; Hx Alcohol Use: No Hx Substance Use: No Preferred Language: Scottish 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: Effective Director Digital Required: No Beliefs That Will Affect Care: None marital status: Current Living Situation: Spouse Feels Safe at Home: Yes Assistive Devices: None Review of Systems Review of Systems: All systems reviewed & are unremarkable except as noted in HPI & below Physical Exam Physical Exam: Temp Pulse Resp BP Pulse Ox 36.6 C 86 20 131/73 98 05/14/21 14:52 05/14/21 14:52 05/14/21 14:52 05/14/21 14:52 02/14/22 14:52 Constitutional: + acute distress Eyes: + anicteric sclerae Neck: trachea midline, no thyromegaly Respiratory: + labored breathing Auscultation: + diminished lung sounds (Decreased breath sounds the bases bilaterally) Cardiovascular: Rate/Rhythm: regular rhythm Heart Sounds: no murmur Vessels: + JVD Extremities: + edema (2+ bilateral lower extremity edema, presacral edema up to the thighs) Gastrointestinal (Abdomen): Abdominal bloating consistent with fluid retention Neurologic: PERRL, EOMI, accommodation nl, no face palsy, no dysarthria Results & Data ([facility]) Vital Signs (Past 12 Hours) Vital Signs Temp Pulse Resp BP Pulse Ox 05/14/21 14:52 36.6 C 86 20 131/73 98 Laboratory Results Cardiac Enzymes 05/14/21 Range/Units 16:38 AST 24 (13-39) U/L Troponin I 0.19 H* (0-0.04) ng/ml Coagulation 05/14/21 Range/Units 16:38 PT 11.3 (9.0-12.0) Seconds APTT 25.1 (21.0-31.0) Seconds CBC 05/14/21 Range/Units 16:38 WBC 5.38 (4.8-10.8) K/uL RBC 4.67 (4.2-5.4) M/uL Hgb 14.7 (12.0-16.0) g/dL Hct 46.0 (37-47) % Plt Count 143 (130-400) K/uL Neut # (Auto) 3.97 (1.4-6.5) K/uL Lymph # (Auto) 0.84 L (1.2-3.4) K/uL Gaines # (Auto) 0.48 (0.11-0.59) K/uL Eos # (Auto) 0.06 (0-0.5) K/uL Baso # (Auto) 0.02 (0-0.2) K/uL Comprehensive Metabolic Panel 05/14/21 Range/Units 16:38 Sodium 139 (136-145) mmol/L Potassium 3.7 (3.5-5.1) mmol/L Chloride 103 (98-107) mmol/L Carbon Dioxide 28 (21-32) mmol/L BUN 19 (6-23) mg/dl Creatinine 0.60 (0.6-1.2) mg/dl Glucose 82 (70-99(Fasting)) mg/dl Calcium 9.1 (8.5-10.1) mg/dl AST 24 (13-39) U/L ALT 18 (7-52) U/L Alkaline Phosphatase 113 H (34-104) U/L Total Protein 8.8 H (6.0-8.3) gm/dl Albumin 3.4 (3.4-5.0) gm/dl Diagnostic Findings EKG performed 05/14/2021 1630 and reviewed independently, although the preliminary computer interpretation raises concerns of atrial fibrillation, P waves are visible in lead V3, question if patient has sinus rhythm, with thoughts of to an accelerated junctional rhythm which have been captured at the time of her EKG performed at [facility] in March. Low amplitude noted consistent with her history of cardiac amyloid. Summary of echocardiogram performed 01/23/2021: increased (concentric). Calculated LV ejection Fraction = 55% (bi-plane method of discs). Severe biatrial enlargement is present. The left ventricular diastolic function is severely abnormal (grade III). Mild mitral regurgitation is present. Severe tricuspid regurgitation is present. The proximal inferior vena cava is dilated, but collapses 50% with inspiration, consistent with an intermediate right atrial pressure of 8 millimeters Hg. Severe pulmonary hypertension is present. The estimated pulmonary systolic pressure= 63 mm Hg. There is a moderate to large left pleural effusion. There is a small right pleural effusion. Compared to the previous study dated 06/14/2020, the pulmonary artery systolic pressure was estimated to be 51 millimeters Hg at that time. There has been interval development of bilateral pleural effusions.
--- NOTE | 2021-05-14 18:35 | History & Physical Report ---
Date of Service May 14, 2021 Assessment & Plan (1) Acute heart failure with preserved ejection fraction (HFpEF): (2) Cardiac amyloidosis: Plan: This is a 75yo F with a PMH of chronic diastolic congestive heart failure, cardiac amyloidosis, history of NSVT, multiple myeloma and other medical problems listed below who presents from cardiology clinic with acute decompensated heart failure. BLE edema with 10-15 lb weight gain, SOB, orthopnea, PND and lightheadedness despite increased lasix dose from 40 to 80mg for past 3 weeks CXR with enlargement of the cardiac silhouette, with pulmonary vascular congestion and layering bilateral pleural effusions ECG with possible A Fib at [address] Molina - ordered Lasix 40mg IV x 1, plan to continue daily. Strict I&Os, daily weights. Echo obtained in ED with results pending Per cardiology, will wait for a more prolonged interval of cardiac monitoring to determine as to whether or not she is in fact in atrial fibrillation. Hold off on systemic anticoagulation for now and will reassess tomorrow (3) Elevated troponin: Plan: Troponin elevated at 0.19. No chest pain or acute ischemic ECG changes. Continue to monitor trops overnight (4) Multiple myeloma: Plan: Diagnosed 4-5 years ago, per patient. Follows with [facility] (Dr. Villela) and [facility] (Dr. Luevano) Current regimen includes daratumumab every 4 weekly subcutaneously (last taken 05/09/21) and pomalidomide to 4 mg once a day for 3 weeks followed by 1 week off (on hold until 05/23/21) DVT Ppx: SQ heparin Code status: FULL PCP: Edgardo Boyce Dispo: Admitted to PCU Patient seen in collaboration with Dr. Cortes. Please see addendum. History of Present Illness Chief Complaint: volume overload Primary Care Provider: Rosendo Boyce, DO This is a 75yo F with a PMH of chronic diastolic congestive heart failure, cardiac amyloidosis, history of NSVT, multiple myeloma and other medical problems listed below who presents from cardiology clinic with volume overload. Endorses BLE edema with 10-15 lb weight gain, SOB, orthopnea, PND and lightheadedness with positional changes. Has been taking Lasix 40mg which was increased to 80mg daily 3-4 weeks ago but has not seen improvement. No F/C, chest pain, palpitations, N/V, abdominal pain, dysuria, diarrhea or constipation. Patient has history of kappa light chain AL cardiac amyloidosis and follows with [facility] (Dr. Villela) and [facility] (Dr. Luevano). Gardening Manager is Dr. Molina, who evaluated patient in ED. As per recent [facility] follow-up visit on 05/02/2021, patient was started on daratumumab every 4 weekly subcutaneously (last taken 05/09/21) and pomalidomide to 4 mg once a day for 3 weeks followed by 1 week off (on hold until 05/23/21). Patient has noted increased swelling since resuming pomalidomide. Allergies Allergy/AdvReac Type Severity Reaction Status Date / Time No Known Allergies Allergy Unknown ` Verified 05/14/21 18:29 Home Medications Medication Instructions Recorded Confirmed Type aspirin 81 mg tablet,delayed 81 mg PO DAILY 03/01/19 05/14/21 History release ondansetron HCl 8 mg tablet 8 mg PO Q8H PRN 03/01/19 05/14/21 History cholecalciferol (vitamin D3) 25 25 mcg PO DAILY 05/14/21 05/14/21 History mcg (1,000 unit) capsule (Vitamin D3) cyanocobalamin (vitamin B-12) 1,000 mcg PO DAILY 05/14/21 05/14/21 History 1,000 mcg tablet (Vitamin B-12) furosemide 40 mg tablet 80 mg PO DAILY 05/14/21 05/14/21 History metoprolol succinate 25 mg 12.5 mg PO DAILY 05/14/21 05/14/21 History tablet,extended release 24 hr nutritional supplement-fiber oral 1 ea PO DAILY 05/14/21 05/14/21 History liquid omeprazole 20 mg tablet,delayed 20 mg PO DAILY PRN 05/14/21 05/14/21 History release pomalidomide 2 mg capsule 2 mg PO DIRECTED 05/14/21 05/14/21 History potassium chloride 20 mEq 20 meq PO DAILY 05/14/21 05/14/21 History tablet,extended release(part/cryst) Past Med/Surg History Medical History Cardiac amyloidosis Chronic diastolic heart failure GI bleed Multiple myeloma Surgical History History of colonoscopy History of tubal ligation Family History Father , 50s Stroke Mother , 90 Coronary heart disease Social History Smoking Status: Never smoker Second Hand Exposure: No; Hx Alcohol Use: No Hx Substance Use: No Preferred Language: Sri Lankan 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: Effective Administrative Services Assistant Required: No Beliefs That Will Affect Care: None marital status: Current Living Situation: Spouse Feels Safe at Home: Yes Assistive Devices: None Review of Systems Review of Systems: At least ten systems reviewed and negative except as noted in the HPI. Physical Exam Physical Exam: Please see Dr. Cortes's addendum for physical exam. Results & Data Results & Data ([facility]) Vital Signs (Past 12 Hours) Vital Signs Temp Pulse Resp BP Pulse Ox 05/14/21 14:52 36.6 C 86 20 131/73 98 Laboratory Results Short CBC 05/14/21 Range/Units 16:38 WBC 5.38 (4.8-10.8) K/uL Hgb 14.7 (12.0-16.0) g/dL Hct 46.0 (37-47) % Plt Count 143 (130-400) K/uL BMP 05/14/21 16:38 Sodium 139 Potassium 3.7 Chloride 103 Carbon Dioxide 28 BUN 19 Creatinine 0.60 Glucose 82 Calcium 9.1 Cardiac Enzymes 05/14/21 Range/Units 16:38 Troponin I 0.19 H* (0-0.04) ng/ml Liver Function 05/14/21 Range/Units 16:38 Total Bilirubin 1.0 (0.2-1.0) mg/dl AST 24 (13-39) U/L ALT 18 (7-52) U/L Alkaline Phosphatase 113 H (34-104) U/L Albumin 3.4 (3.4-5.0) gm/dl Diagnostic Findings Chest X-Ray 05/14/21 14:56 XR chest 1V portable HISTORY: 75 years-old Female SOB acute shortness of breath COMPARISON: Chest radiographs 03/03/2019 TECHNIQUE: Portable AP view of the chest FINDINGS: Cardiac silhouette is enlarged. Pulmonary vascular congestion. No pneumothorax. Layering pleural effusions with bibasilar consolidation. Hiatal hernia. Degenerative changes of the shoulders and spine. IMPRESSION: 1. Cardiomegaly with pulmonary vascular congestion. 2. Layering pleural effusions with bibasilar consolidation. ACT 112: Negative or not required by law. The above report was generated using voice recognition software. It may contain grammatical, syntax or spelling errors. Electronically signed by: Jerzy Barton M.D. 05/14/2021 5:00 PM Supervising Physician Co-Signing Physician Notes Patient is a 75-year-old female with history of chronic diastolic heart failure, cardiac amyloidosis, multiple myeloma, NSVT and other medical problems presents with history of worsening lower extremity edema, weight gain, shortness of breath, orthopnea and PND associated with some positional dizziness since 3 to 4 weeks duration. Patient admits to increasing her home Lasix from 40 to 80 mg daily without any improvement. 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 Patient denies any chest pain, cough, fever, chills. Please review HPI for complete details of presentation. Blood work suggestive of troponin elevated at 0.19, BNP 2737. Chest x-ray showed cardiomegaly with pulmonary vascular congestion, layering pleural effusions with bibasilar consolidation. EKG showed undetermined rhythm, QTC 445. No signs of acute ischemia. Physical Exam: Vitals signs as noted above General Appearance: Thin, chronically appearing, no apparent distress Head: normocephalic, Atraumatic Eyes: normal inspection, EOMI Neck: supple, Trachea midline Respiratory/Chest: Normal breath sounds, CTA, No accessory muscle use Cardiovascular: Irregularly irregular, No murmur Abdomen/GI:Soft, Non tender, Bowel sounds present, mild distention Extremities/Musculoskeletal:normal inspection, 2-2+ B/L LE edema Neurologic/Psych:AAOX3, grossly no focal neurological deficits Skin: normal color, warm Acute on chronic diastolic heart failure Cardiac amyloidosis Started on IV Lasix 40 mg daily Monitor I's and O's, daily, volume status Low-salt diet, fluid restriction Appreciate cardiology input Will check procalcitonin and repeat chest x-ray tomorrow to rule out pneumonia Update echo, trend cardiac enzymes Suspected atrial fibrillation Unclear rhythm currently We will repeat EKG in the morning Consider IV heparin if necessary I personally reviewed the record. Patient is interviewed and examined at bedside. Patient's care is coordinated with Saira Hooks PA-C. Please refer to the documentation above for details of patient's presentation and for discussion of other issues.
[2021-05-14] MEDS ORDERED: POLYETHYLENE (MIRALAX) 17 GM PACK PO PRN (23:06)
[2021-05-14] MEDS ORDERED: ONDANSETRON INJ 2 MG/ML 2 ML VIAL IV PRN (23:06)
[2021-05-15] MEDS: HEPARIN SOD 5,000 UNIT/0.5 ML VIAL SQ SCH ×3 (00:43→18:28)
[2021-05-15 04:35] LABS: Mean Corpuscular Hgb Conc 31.7 g/dL (32-36)
[2021-05-15 04:45] LABS: Hematocrit (blood only) 38.8 % (37-47); Hemoglobin 12.3 g/dL (12.0-16.0); Mean Corpuscular Hemoglobin 31.1 pg (25-34); Mean Corpuscular Volume 98.2 fL (80-100); RDW Coefficient of Variation 16.5 % (11.5-14.5); RDW Standard Deviation 59.1 fL (36.4-46.3); Red Blood Count 3.95 M/uL (4.2-5.4); White Blood Count 3.43 K/uL (4.8-10.8)
[2021-05-15 04:57] LABS: Platelet Count 127 K/uL (130-400); Platelet Estimate Decreased (Normal)
[2021-05-15 05:23] LABS: BUN Creatinine Ratio 29.9 (10-20); Calcium 8.1 mg/dl (8.5-10.1); Est GFR (African American) 100.4 ml/min; Est GFR (Non-African American) 86.6 ml/min; Troponin I 0.18 ng/ml (0-0.04)
[2021-05-15] MEDS ORDERED: POTASSIUM CHLORIDE CRTAB 20 MEQ TABCR PO SCH (09:00)
[2021-05-15] MEDS ORDERED: PANTOprazole 40 MG TAB PO PRN (09:00)
[2021-05-15] MEDS ORDERED: MAGNESIUM OXIDE 400 MG TAB PO SCH (09:00)
--- NOTE | 2021-05-15 09:39 | XRay Report ---
XR chest 1V portable CLINICAL HISTORY: CHF TECHNIQUE: Single frontal radiograph of the chest was obtained. Comparison: Comparison is made to chest one view 05/14/2021 FINDINGS: No lines and tubes are seen. Cardiomegaly is noted. Bilateral lower lung predominant airspace opaciti es are seen. Small bilateral pleural effusions are seen. IMPRESSION: Small bilateral pleural effusions. Bilateral airspace opacities may represent atelectasis, pneumonia, and/or aspiration. Findings appear essentially stable from prior exam. ACT 112: Negative or not required by law. Electronically signed by: Jose Ramon Murcia M.D. 05/15/2021 9:38 AM
[2021-05-15] MEDS: POTASSIUM CHLORIDE CRTAB 20 MEQ TABCR PO SCH ×2 (10:58→21:14)
--- NOTE | 2021-05-15 11:41 | Electrocardiogram Report ---
Test Reason : Blood Pressure : / mmHG Vent. Rate : 067 BPM Atrial Rate : 234 BPM P-R Int : 000 ms QRS Dur : 084 ms QT Int : 422 ms P-R-T Axes : 000 109 092 degrees QTc Int : 445 ms Sinus rhythm with frequent Premature atrial complexes Rightward axis Low voltage QRS Cannot rule out Old Anteroseptal infarct (cited on or before 02-MAR-2019) Diffuse Nonspecific T wave abnormality Abnormal ECG When compared with ECG of 03-MAR-2019 06:35, Premature atrial complexes now present Borderline Criteria for Anteroseptal infarct now present Confirmed by Chun Jamison ([id number]) on 05/15/2021 11:41:09 AM Referred By: REFERRED SELF Confirmed By:Chun Jamison
[2021-05-15] MEDS: FUROSEMIDE 40 MG/4 ML VIAL IV SCH (11:51)
[2021-05-15] MEDS: ASPIRIN 81 MG ECTAB PO SCH (11:52)
[2021-05-15] MEDS: METOPROLOL SUCC 25MG EXT REL TAB PO SCH (11:52)
[2021-05-15] MEDS: CYANOCOBALAMIN (B-12) 500 MCG TABLET PO SCH (11:53)
[2021-05-15] MEDS: CHOLECALCIFEROL 1,000 UNITS 25 MCG TAB PO SCH (11:53)
--- NOTE | 2021-05-15 11:55 | Cardiology Progress Note ---
Date of Service May 15, 2021 Assessment & Plan (1) Acute heart failure with preserved ejection fraction (HFpEF): (2) Cardiac amyloidosis: Plan: Patient responding to furosemide 40 mg IV daily. Given her borderline hypotension, hesitant to increase dose of diuretic. Her edema has improved from admission. still with b/l pleural effusions on chest xray. Recommend monitoring I+O's closely. Fluid restriction of 1500 ml Daily weight with standing scale. Her rhythm appears to be NSR with PAC's on telemetry, but difficult to clearly decipher. I have asked the nursing staff to proceed with her daily EKG at this time. Case discussed with Dr. Molina. Will follow. Admission and Anticipated Discharge Date Admission Date: May 14, 2021 Supervising Physician Co-Signing Physician Notes Supervising Physician Attestation: I have personally performed a history and physical examination on the patient. I agree with the physician dental assistant medical assistant's findings and plan as documented with the following additions. Subjective: Still short of breath and volume overloaded. Third been concerned about the presence of atrial fibrillation upon arrival last evening based on the initial EKG. Per review of telemetry and the repeat EKG performed today, sinus bradycardia at 59 bpm with low amplitude P waves noted. Exam: Cardiovascular: Regular rhythm, 1/6 systolic murmur, lower extremity edema, present, 1-2+, the improved compared to 05/14/2021 Pulmonary: Decreased breath sounds bilaterally at the bases Abdomen: Nontender, abdominal bloating noted consistent with fluid overload. Data: Summary of ttecho performed today and reviewed independently: Study is technically adequate for the evaluation of the referral indication. 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 Compared to the prior outpatient study dated 01/23/2021, there is been interval increase in the size of the bilateral pleural effusions. There is severe concentric left ventricular hypertrophy. The left ventricular cavity size is small due to the severe concentric left ve ntricular hypertrophy. Ejection Fraction = >70 %. The left atrium is severely dilated. The right atrium is severely dilated. There is mild mitral regurgitation. There is severe tricuspid regurgitation. The proximal inferior vena cava is dilated, with < 50% collapse with inspiration , consistent with an elevated right atrial pressure of 15 mm Hg. Severe pulmonary hypertension is present. The estimated pulmonary systolic pressure= 60 mm Hg The left ventricular diastolic function is severely abnormal (grade III). Large left pleural effusion. Large right pleural effusion. Assessment and Plan: Acute decompensation, chronic heart failure with preserved ejection fraction [place] light chain AL cardiac amyloidosis -As is typical of this form of cardiomyopathy, patient with relative hypotension, systolic blood pressure typically in the 90s to low 100s, intolerant of multiple medications. -Continue IV furosemide 40 mg daily. -Extra dose of furosemide 20 mg IV this afternoon. -Given month of progressive pleural effusions (initially noted on echocardiogram dating back to December,, but much larger at present) will consult pulmonary for consideration of thoracentesis. -The antibiotic doxycycline has been shown to interfere with amyloid fibril formation. -Will start doxycydline, DC magnesium due to interaction. DVT prophylaxis: Subcutaneous heparin Garrett Molina, Subjective Patient evaluated, resting in bed. She reports good diuresis over the last 24 hours since admission. Edema improving from admission. Remains dyspneic with minimal activity with mild chest tightness. No dizziness or lightheadedness. No worsening cough, fever, chills. Review of Systems Review of Systems: All systems reviewed & are unremarkable except as noted in HPI & below Physical Exam Physical Exam: Temp Pulse Resp BP Pulse Ox 36.6 C 86 20 131/73 98 05/14/21 14:52 05/14/21 14:52 05/14/21 14:52 05/14/21 14:52 05/14/21 14:52 Constitutional: + ill appearing; no acute distress Eyes: + anicteric sclerae Neck: trachea midline, no thyromegaly Respiratory: Auscultation: + diminished lung sounds (Decreased breath sounds the bases bilaterally) Cardiovascular: Rate/Rhythm: + irregularly irregular Heart Sounds: no murmur Vessels: + JVD Extremities: + edema (1+ bilateral lower extremity edema ) Neurologic: PERRL, EOMI, accommodation nl, no face palsy, no dysarthria Psychiatric: A+Ox3, euthymic affect Results & Data ([facility]) Vital Signs (Past 12 Hours) Vital Signs Temp Pulse Resp BP Pulse Ox 05/15/21 07:00 36.4 C L 65 20 96/53 L 96 05/15/21 04:59 36.6 C 66 14 127/66 95 05/15/21 03:01 76 95 Laboratory Results 05/15/21 05/15/21 05/15/21 Range/Units 05:38 04:10 04:10 WBC 3.43 L (4.8-10.8) K/uL RBC 3.95 L (4.2-5.4) M/uL Hgb 12.3 (12.0-16.0) g/dL Hct 38.8 (37-47) % MCV 98.2 (80-100) fL MCH 31.1 (25-34) pg MCHC 31.7 L (32-36) g/dL RDW Std Deviation 59.1 H (36.4-46.3) fL RDW Coeff of Nasir 16.5 H (11.5-14.5) % Plt Count 127 L (130-400) K/uL MPV (7.4-10.4) fL Immature Gran % (Auto) % Neut % (Auto) % Lymph % (Auto) % Churchill % (Auto) % Eos % (Auto) % Baso % (Auto) % Neut # (Auto) (1.4-6.5) K/uL Lymph # (Auto) (1.2-3.4) K/uL Churchill # (Auto) (0.11-0.59) K/uL Eos # (Auto) (0-0.5) K/uL Baso # (Auto) (0-0.2) K/uL Immature Gran # (Auto) (0.00-0.02) K/uL Platelet Estimate Decreased L (Normal) PT (9.0-12.0) Seconds INR (0.9-1.1) APTT (21.0-31.0) Seconds PTT Ratio Sodium (136-145) mmol/L Potassium 3.6 (3.5-5.1) mmol/L Chloride (98-107) mmol/L Carbon Dioxide (21-32) mmol/L Anion Gap (3-11) BUN (6-23) mg/dl Creatinine (0.6-1.2) mg/dl Est Cr Clr Drug Dosing Est GFR ( Amer) ml/min Est GFR (Non-Af Amer) ml/min BUN/Creatinine Ratio (10-20) Glucose (70-99(Fasting)) mg/dl Calcium (8.5-10.1) mg/dl Magnesium (1.7-2.4) mg/dl Total Bilirubin (0.2-1.0) mg/dl AST (13-39) U/L ALT (7-52) U/L Alkaline Phosphatase (34-104) U/L Troponin I (0-0.04) ng/ml B-Natriuretic Peptide (0-100) pg/ml Total Protein (6.0-8.3) gm/dl Albumin (3.4-5.0) gm/dl Globulin (2.5-4.0) gm/dl Albumin/Globulin Ratio (0.9-2) Procalcitonin 0.18 (0-0.5) ng/ml SARS-CoV-2, RNA, NAAT (NEGATIVE) 05/15/21 05/14/21 05/14/21 Range/Units 04:10 22:49 18:19 WBC (4.8-10.8) K/uL RBC (4.2-5.4) M/uL Hgb (12.0-16.0) g/dL Hct (37-47) % MCV (80-100) fL MCH (25-34) pg MCHC (32-36) g/dL RDW Std Deviation (36.4-46.3) fL RDW Coeff of Nasir (11.5-14.5) % Plt Count (130-400) K/uL MPV (7.4-10.4) fL Immature Gran % (Auto) % Neut % (Auto) % Lymph % (Auto) % Churchill % (Auto) % Eos % (Auto) % Baso % (Auto) % Neut # (Auto) (1.4-6.5) K/uL Lymph # (Auto) (1.2-3.4) K/uL Churchill # (Auto) (0.11-0.59) K/uL Eos # (Auto) (0-0.5) K/uL Baso # (Auto) (0-0.2) K/uL Immature Gran # (Auto) (0.00-0.02) K/uL Platelet Estimate (Normal) PT (9.0-12.0) Seconds INR (0.9-1.1) APTT (21.0-31.0) Seconds PTT Ratio Sodium 138 (136-145) mmol/L Potassium (3.5-5.1) mmol/L Chloride 105 (98-107) mmol/L Carbon Dioxide 28 (21-32) mmol/L Anion Gap 5 (3-11) BUN 20 (6-23) mg/dl Creatinine 0.67 (0.6-1.2) mg/dl Est Cr Clr Drug Dosing 67.0 Est GFR ( Amer) 100.4 ml/min Est GFR (Non-Af Amer) 86.6 ml/min BUN/Creatinine Ratio 29.9 H (10-20) Glucose 88 (70-99(Fasting)) mg/dl Calcium 8.1 L (8.5-10.1) mg/dl Magnesium (1.7-2.4) mg/dl Total Bilirubin (0.2-1.0) mg/dl AST (13-39) U/L ALT (7-52) U/L Alkaline Phosphatase (34-104) U/L Troponin I 0.18 H* 0.18 H* (0-0.04) ng/ml B-Natriuretic Peptide 2737 H (0-100) pg/ml Total Protein (6.0-8.3) gm/dl Albumin (3.4-5.0) gm/dl Globulin (2.5-4.0) gm/dl Albumin/Globulin Ratio (0.9-2) Procalcitonin (0-0.5) ng/ml SARS-CoV-2, RNA, NAAT (NEGATIVE) 05/14/21 05/14/21 05/14/21 Range/Units 16:46 16:38 16:38 WBC (4.8-10.8) K/uL RBC (4.2-5.4) M/uL Hgb (12.0-16.0) g/dL Hct (37-47) % MCV (80-100) fL MCH (25-34) pg MCHC (32-36) g/dL RDW Std Deviation (36.4-46.3) fL RDW Coeff of Nasir (11.5-14.5) % Plt Count (130-400) K/uL MPV (7.4-10.4) fL Immature Gran % (Auto) % Neut % (Auto) % Lymph % (Auto) % Churchill % (Auto) % Eos % (Auto) % Baso % (Auto) % Neut # (Auto) (1.4-6.5) K/uL Lymph # (Auto) (1.2-3.4) K/uL Churchill # (Auto) (0.11-0.59) K/uL Eos # (Auto) (0-0.5) K/uL Baso # (Auto) (0-0.2) K/uL Immature Gran # (Auto) (0.00-0.02) K/uL Platelet Estimate (Normal) PT 11.3 (9.0-12.0) Seconds INR 1.1 (0.9-1.1) APTT 25.1 (21.0-31.0) Seconds PTT Ratio 1.0 Sodium 139 (136-145) mmol/L Potassium 3.7 (3.5-5.1) mmol/L Chloride 103 (98-107) mmol/L Carbon Dioxide 28 (21-32) mmol/L Anion Gap 8 (3-11) BUN 19 (6-23) mg/dl Creatinine 0.60 (0.6-1.2) mg/dl Est Cr Clr Drug Dosing Not Reportable Est GFR ( Amer) 104.1 ml/min Est GFR (Non-Af Amer) 89.8 ml/min BUN/Creatinine Ratio 31.7 H (10-20) Glucose 82 (70-99(Fasting)) mg/dl Calcium 9.1 (8.5-10.1) mg/dl Magnesium 2.0 (1.7-2.4) mg/dl Total Bilirubin 1.0 (0.2-1.0) mg/dl AST 24 (13-39) U/L ALT 18 (7-52) U/L Alkaline Phosphatase 113 H (34-104) U/L Troponin I 0.19 H* (0-0.04) ng/ml B-Natriuretic Peptide (0-100) pg/ml Total Protein 8.8 H (6.0-8.3) gm/dl Albumin 3.4 (3.4-5.0) gm/dl Globulin 5.4 H (2.5-4.0) gm/dl Albumin/Globulin Ratio 0.6 L (0.9-2) Procalcitonin (0-0.5) ng/ml SARS-CoV-2, RNA, NAAT NEGATIVE (NEGATIVE) 05/14/21 Range/Units 16:38 WBC 5.38 (4.8-10.8) K/uL RBC 4.67 (4.2-5.4) M/uL Hgb 14.7 (12.0-16.0) g/dL Hct 46.0 (37-47) % MCV 98.5 (80-100) fL MCH 31.5 (25-34) pg MCHC 32.0 (32-36) g/dL RDW Std Deviation 60.0 H (36.4-46.3) fL RDW Coeff of Nasir 16.8 H (11.5-14.5) % Plt Count 143 (130-400) K/uL MPV 12.7 H (7.4-10.4) fL Immature Gran % (Auto) 0.2 % Neut % (Auto) 73.8 % Lymph % (Auto) 15.6 % Churchill % (Auto) 8.9 % Eos % (Auto) 1.1 % Baso % (Auto) 0.4 % Neut # (Auto) 3.97 (1.4-6.5) K/uL Lymph # (Auto) 0.84 L (1.2-3.4) K/uL Churchill # (Auto) 0.48 (0.11-0.59) K/uL Eos # (Auto) 0.06 (0-0.5) K/uL Baso # (Auto) 0.02 (0-0.2) K/uL Immature Gran # (Auto) 0.01 (0.00-0.02) K/uL Platelet Estimate (Normal) PT (9.0-12.0) Seconds INR (0.9-1.1) APTT (21.0-31.0) Seconds PTT Ratio Sodium (136-145) mmol/L Potassium (3.5-5.1) mmol/L Chloride (98-107) mmol/L Carbon Dioxide (21-32) mmol/L Anion Gap (3-11) BUN (6-23) mg/dl Creatinine (0.6-1.2) mg/dl Est Cr Clr Drug Dosing Est GFR ( Amer) ml/min Est GFR (Non-Af Amer) ml/min BUN/Creatinine Ratio (10-20) Glucose (70-99(Fasting)) mg/dl Calcium (8.5-10.1) mg/dl Magnesium (1.7-2.4) mg/dl Total Bilirubin (0.2-1.0) mg/dl AST (13-39) U/L ALT (7-52) U/L Alkaline Phosphatase (34-104) U/L Troponin I (0-0.04) ng/ml B-Natriuretic Peptide (0-100) pg/ml Total Protein (6.0-8.3) gm/dl Albumin (3.4-5.0) gm/dl Globulin (2.5-4.0) gm/dl Albumin/Globulin Ratio (0.9-2) Procalcitonin (0-0.5) ng/ml SARS-CoV-2, RNA, NAAT (NEGATIVE) Diagnostic Findings Telemetry reviewed - Appears likely sinus with PAC's, however P waves are not always clear. chest xray today - MPRESSION: Small bilateral pleural effusions. Bilateral airspace opacities may represent atelectasis, pneumonia, and/or aspiration. Findings appear essentially stable from prior exam. Medications Administered Current Inpatient Medications Acetaminophen (Acetaminophen 325 Mg Tab) 650 mg PO Q4H PRN PRN Reason: Pain or Fever Stop: 06/13/21 23:05 Aspirin (Aspirin 81 Mg Ectab) 81 mg PO DAILY RYANN Stop: 06/14/21 08:59 Last Admin: 05/15/21 11:52 Dose: 81 mg Documented by: Cyanocobalamin (Cyanocobalamin 500 Mcg Tablet (Vitamin B-12)) 1,000 mcg PO DAILY RYANN Stop: 06/14/21 08:59 Last Admin: 05/15/21 11:53 Dose: 1,000 mcg Documented by: Furosemide (Furosemide 40 Mg/4 Ml Vial) 40 mg IV DAILY RYANN Stop: 06/14/21 08:59 Last Admin: 05/15/21 11:51 Dose: 40 mg Documented by: Heparin Sodium (Porcine) (Heparin Sod 5,000 Unit/0.5 Ml Vial) 5,000 units SQ Q8H RYANN Stop: 06/14/21 00:00 Last Admin: 05/15/21 11:53 Dose: 5,000 units Documented by: Magnesium Oxide (Magnesium Oxide 400 Mg Tab) 400 mg PO BID RYANN Stop: 06/14/21 08:59 Last Admin: 05/15/21 10:58 Dose: 400 mg Documented by: Metoprolol Succinate (Metoprolol Succ 25mg Ext Rel Tab) 12.5 mg PO DAILY RYANN Stop: 06/14/21 08:59 Last Admin: 05/15/21 11:52 Dose: 12.5 mg Documented by: Ondansetron HCl (Ondansetron Inj 2 Mg/Ml 2 Ml Vial) 4 mg IV Q6H PRN PRN Reason: Nausea Stop: 06/13/21 23:05 Pantoprazole Sodium (Pantoprazole 40 Mg Tab) 40 mg PO DAILY PRN PRN Reason: HEARTBURN/INDIGESTION Stop: 06/14/21 08:59 Polyethylene Glycol (Polyethylene (Miralax) 17 Gm Pack) 17 gm PO DAILY PRN PRN Reason: Constipation Stop: 06/13/21 23:05 Potassium Chloride (Potassium Chloride Crtab 20 Meq Tabcr) 20 meq PO BID [facility] Stop: 06/14/21 08:59 Last Admin: 05/15/21 10:58 Dose: 20 meq Documented by: Vitamin D (Cholecalciferol 1,000 Units 25 Mcg Tab) 1,000 units PO DAILY RYANN Stop: 06/14/21 08:59 Last Admin: 05/15/21 11:53 Dose: 1,000 units Documented by:
--- NOTE | 2021-05-15 13:53 | Hospitalist Progress Note ---
Date of Service May 15, 2021 Assessment & Plan (1) Acute heart failure with preserved ejection fraction (HFpEF): Plan: Acute on chronic diastolic CHF -Lasix 40mg IV daily -daily weight, I/O -Still volume overloaded -TTE pending -continue potassium, magnesium supplementation -Appreciate Cardiology input (2) Cardiac amyloidosis: Plan: -As above (3) Elevated troponin: Plan: Trend is flat, no chest pain Likely in setting of acute on chronic diastolic CHF (4) Multiple myeloma: Plan: Diagnosed 4-5 years ago, per patient. Follows with [facility] On[facility] (Dr. Villela) and [facility] (Dr. Luevano) Current regimen includes daratumumab every 4 weekly subcutaneously (last taken 05/09/21) and pomalidomide to 4 mg once a day for 3 weeks followed by 1 week off (on hold until 05/23/21) Plan: DVT Ppx: SQ heparin Code status: FULL PCP: Edgardo Boyce Dispo: Admitted to PCU Admission and Anticipated Discharge Date Admission Date: May 14, 2021 Subjective Feels improved but breathing still feels tight. Still with extensive edema Denies chest pain Physical Exam Physical Exam: No acute distress. Just finished lunch, non toxic Respiratory: breathing on nasal canula, diminished at base, no wheezing/rhonchi Cardiovascular: regular rate and rhythm, no murmurs/rubs/gallops Gastrointestinal (Abdomen): soft, non distended Musculoskeletal: 3+ edema bilaterall to knees, no cyanosis or clubbing Neurologic: awake, alert, spontaneously moving extremities Results & Data Results & Data ([facility]) Vital Signs (Past 12 Hours) Vital Signs Temp Pulse Resp BP Pulse Ox 05/15/21 12:00 58 L 21 108/60 97 05/15/21 07:00 36.4 C L 65 20 96/53 L 96 05/15/21 04:59 36.6 C 66 14 127/66 95 05/15/21 03:01 76 95 Laboratory Results Short CBC 05/14/21 05/15/21 Range/Units 16:38 04:10 WBC 5.38 3.43 L (4.8-10.8) K/uL Hgb 14.7 12.3 (12.0-16.0) g/dL Hct 46.0 38.8 (37-47) % Plt Count 143 127 L (130-400) K/uL BMP 05/14/21 05/15/21 05/15/21 16:38 04:10 05:38 Sodium 139 138 Potassium 3.7 3.6 Chloride 103 105 Carbon Dioxide 28 28 BUN 19 20 Creatinine 0.60 0.67 Glucose 82 88 Calcium 9.1 8.1 L Cardiac Enzymes 05/14/21 05/14/21 05/15/21 Range/Units 16:38 22:49 04:10 Troponin I 0.19 H* 0.18 H* 0.18 H* (0-0.04) ng/ml Liver Function 05/14/21 Range/Units 16:38 Total Bilirubin 1.0 (0.2-1.0) mg/dl AST 24 (13-39) U/L ALT 18 (7-52) U/L Alkaline Phosphatase 113 H (34-104) U/L Albumin 3.4 (3.4-5.0) gm/dl Medications Administered Current Inpatient Medications Acetaminophen (Acetaminophen 325 Mg Tab) 650 mg PO Q4H PRN PRN Reason: Pain or Fever Stop: 06/13/21 23:05 Aspirin (Aspirin 81 Mg Ectab) 81 mg PO DAILY RYANN Stop: 06/14/21 08:59 Last Admin: 05/15/21 11:52 Dose: 81 mg Documented by: Cyanocobalamin (Cyanocobalamin 500 Mcg Tablet (Vitamin B-12)) 1,000 mcg PO DAILY RYANN Stop: 06/14/21 08:59 Last Admin: 05/15/21 11:53 Dose: 1,000 mcg Documented by: Furosemide (Furosemide 40 Mg/4 Ml Vial) 40 mg IV DAILY RYANN Stop: 06/14/21 08:59 Last Admin: 05/15/21 11:51 Dose: 40 mg Documented by: Heparin Sodium (Porcine) (Heparin Sod 5,000 Unit/0.5 Ml Vial) 5,000 units SQ Q8H RYANN Stop: 06/14/21 00:00 Last Admin: 05/15/21 11:53 Dose: 5,000 units Documented by: Magnesium Oxide (Magnesium Oxide 400 Mg Tab) 400 mg PO BID RYANN Stop: 06/14/21 08:59 Last Admin: 05/15/21 10:58 Dose: 400 mg Documented by: Metoprolol Succinate (Metoprolol Succ 25mg Ext Rel Tab) 12.5 mg PO DAILY RYANN Stop: 06/14/21 08:59 Last Admin: 05/15/21 11:52 Dose: 12.5 mg Documented by: Ondansetron HCl (Ondansetron Inj 2 Mg/Ml 2 Ml Vial) 4 mg IV Q6H PRN PRN Reason: Nausea Stop: 06/13/21 23:05 Pantoprazole Sodium (Pantoprazole 40 Mg Tab) 40 mg PO DAILY PRN PRN Reason: HEARTBURN/INDIGESTION Stop: 06/14/21 08:59 Polyethylene Glycol (Polyethylene (Miralax) 17 Gm Pack) 17 gm PO DAILY PRN PRN Reason: Constipation Stop: 06/13/21 23:05 Potassium Chloride (Potassium Chloride Crtab 20 Meq Tabcr) 20 meq PO BID RYANN Stop: 06/14/21 08:59 Last Admin: 05/15/21 10:58 Dose: 20 meq Documented by: Vitamin D (Cholecalciferol 1,000 Units 25 Mcg Tab) 1,000 units PO DAILY RYANN Stop: 06/14/21 08:59 Last Admin: 05/15/21 11:53 Dose: 1,000 units Documented by:
--- NOTE | 2021-05-15 15:00 | Electrocardiogram Report ---
Test Reason : Blood Pressure : / mmHG Vent. 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
[2021-05-15] MEDS ORDERED: FUROSEMIDE INJ 20 MG/2 ML VIAL IV ONE (15:54)
[2021-05-15] MEDS: DOXYCYCLINE HYCLATE 100 MG CAP PO SCH (21:21)
[2021-05-16] MEDS: HEPARIN SOD 5,000 UNIT/0.5 ML VIAL SQ SCH (00:26)
[2021-05-16 05:51] LABS: BUN Creatinine Ratio 34.4 (10-20); Calcium 8.5 mg/dl (8.5-10.1); Creatinine Clr Calc Pharmacy 73.6 ml/min; Est GFR (African American) 103.5 ml/min; Est GFR (Non-African American) 89.3 ml/min; Magnesium 2.1 mg/dl (1.7-2.4); Potassium 3.8 mmol/L (3.5-5.1)
[2021-05-16 06:03] LABS: Hematocrit (blood only) 39.8 % (37-47); Hemoglobin 12.4 g/dL (12.0-16.0); Mean Corpuscular Hemoglobin 31.2 pg (25-34); Mean Corpuscular Hgb Conc 31.2 g/dL (32-36); Mean Corpuscular Volume 100.3 fL (80-100); Mean Platelet Volume 12.5 fL (7.4-10.4); Platelet Count 114 K/uL (130-400); RDW Coefficient of Variation 16.7 % (11.5-14.5); RDW Standard Deviation 61.2 fL (36.4-46.3); Red Blood Count 3.97 M/uL (4.2-5.4); White Blood Count 3.03 K/uL (4.8-10.8)
--- NOTE | 2021-05-16 08:55 | XRay Report ---
SINGLE VIEW CHEST CLINICAL HISTORY: Status post thoracentesis. FINDINGS: An AP, portable, upright chest radiograph is compared to study dated 05/15/2021 and correlat ed with chest CT dated 03/01/2019. The heart is enlarged noting atherosclerotic calcification of the t horacic ureter. Mild pulmonary vascular congestion persists. There are small left and moderate right pleural effusions with bibasilar consolidation. The left pleural effusion has decreased in size from previous. No pneumothorax is seen. The skeletal structures are osteopenic. The bony thorax is grossly intact. IMPRESSION: 1. Cardiomegaly with mild persistent pulmonary vascular congestion. 2. Right larger than left pleural effusions with bibasilar consolidation. The left pleural effusion h as decreased in size from previous. 3. No pneumothorax is identified post procedure. ACT 112: Negative or not required by law. Electronically signed by: Kashif Rios M.D. 05/16/2021 8:54 AM
--- NOTE | 2021-05-16 09:13 | Pulmonary Consultation ---
Date of Consultation May 16, 2021 Assessment & Plan (1) Pleural effusion: (2) Dyspnea: (3) Cardiac amyloidosis: (4) Acute heart failure with preserved ejection fraction (HFpEF): Impression: 75-year-old female with cardiac amyloid and heart failure with preserved ejection fraction admitted with volume overload failing outpatient therapy. She has bilateral pleural effusions. Recommendations: 1. Bilateral pleural effusions: Suspect related to the patient's heart failure although amyloid rarely can cause pleural effusions. Sampling is indicated for characterization of the pleural fluid as well as alleviation of symptoms. The patient will undergo ultrasound-guided catheter thoracentesis and fluid will be sent for routine microbiologic and cytologic analysis. 2. Heart failure: Management per cardiology. 3. Dyspnea: We will follow chest x-ray post thoracentesis and see whether or not the patient has significant improvement. Depending on clinical response, may consider thoracentesis of the contralateral side within the next 24 hours. 4. Amyloid: Management per hematology oncology. Thanks for the opportunity participating in the care of this patient. We will continue to follow with you. Feel free to contact us with additional questions or concerns. History of Present Illness Attending Physician: Kat Atkinson MD History of Present Illness Asked by cardiology to evaluate this patient with congestive heart failure failing outpatient management admitted with bilateral pleural effusions and anasarca. History is obtained from discussion with the patient as well as review the electronic medical record. Patient is a 75-year-old female with a history of heart failure with preserved ejection fraction. She was seen in the outpatient setting on May 14 and was found to be volume up. She had lower extremity edema abdominal bloating and orthopnea. Her Lasix had been increased in the outpatient setting but had failed to respond. She has a known history of cardiac amyloid and follows at [facility] hematology and [facility]. Her echocardiogram shows preserved ejection fraction with elevated diastolic filling pressures and concentric LVH. The patient denies fevers chills or night sweats. She states her breathing and her lower extremity edema are better since arriving to the hospital but she continues to have some shortness of breath and tightness in the chest. No history of trauma or falls. She is not anticoagulated. She has not had previous thoracentesis performed. Allergies Allergy/AdvReac Type Severity Reaction Status Date / Time No Known Allergies Allergy Unknown ` Verified 05/14/21 18:29 Home Medications Medication Instructions Recorded Confirmed Type aspirin 81 mg tablet,delayed 81 mg PO DAILY 03/01/19 05/14/21 History release ondansetron HCl 8 mg tablet 8 mg PO Q8H PRN 03/01/19 05/14/21 History cholecalciferol (vitamin D3) 25 25 mcg PO DAILY 05/14/21 05/14/21 History mcg (1,000 unit) capsule (Vitamin D3) cyanocobalamin (vitamin B-12) 1,000 mcg PO DAILY 05/14/21 05/14/21 History 1,000 mcg tablet (Vitamin B-12) furosemide 40 mg tablet 80 mg PO DAILY 05/14/21 05/14/21 History metoprolol succinate 25 mg 12.5 mg PO DAILY 05/14/21 05/14/21 History tablet,extended release 24 hr nutritional supplement-fiber oral 1 ea PO DAILY 05/14/21 05/14/21 History liquid omeprazole 20 mg tablet,delayed 20 mg PO DAILY PRN 05/14/21 05/14/21 History release pomalidomide 2 mg capsule 2 mg PO DIRECTED 05/14/21 05/14/21 History potassium chloride 20 mEq 20 meq PO DAILY 05/14/21 05/14/21 History tablet,extended release(part/cryst) Patient History Medical History Cardiac amyloidosis Chronic diastolic heart failure GI bleed Multiple myeloma Surgical History History of colonoscopy History of tubal ligation Family History Father , 50s Stroke Mother , 90 Coronary heart disease Social History Smoking Status: Never smoker Second Hand Exposure: No; Hx Alcohol Use: No Hx Substance Use: No Preferred Language: Italian 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: Effective Wildlife Officer Required: No Beliefs That Will Affect Care: None marital status: Current Living Situation: Spouse Feels Safe at Home: Yes Assistive Devices: Walker Review of Systems Review of Systems: Please refer to admission H&P. I have no additions or deletions Physical Exam Constitutional: WD/WN, vitals as above Neck: trachea midline, no thyromegaly Respiratory: no respiratory distress, no labored breathing and not tachypneic Breath sounds diminished at the bilateral bases with dullness to percussion Cardiovascular: Rate/Rhythm: regular rate Heart Sounds: normal S1 and normal S2 Extremities: + edema Gastrointestinal (Abdomen): normal bowel sounds, soft, nontender, no hepatospl enomegaly Musculoskeletal: Extremities: extremities normal to inspection Skin: no rashes, warm and dry Neurologic: Nonfocal exam Lymphatic: no cervical lymphadenopathy Results & Data Results & Data ([facility]) Vital Signs (Past 12 Hours) Vital Signs Temp Pulse Resp BP Pulse Ox 05/16/21 04:30 36.9 C 51 L 16 106/54 L 98 05/15/21 23:00 36.6 C 59 L 18 110/58 L 96 Critical Care Results & Data Vital Signs (Past 12 Hours) Vital Signs Temp Pulse Resp BP Pulse Ox 05/16/21 04:30 36.9 C 51 L 16 106/54 L 98 05/15/21 23:00 36.6 C 59 L 18 110/58 L 96 Lab & Micro Results (Past 24 Hours) RBC 3.97 M/uL (4.2-5.4) L 05/16/21 WBC 3.03 K/uL (4.8-10.8) L 05/16/21 Hgb 12.4 g/dL (12.0-16.0) 05/16/21 Hct 39.8 % (37-47) 05/16/21 MCV 100.3 fL (80-100) H 05/16/21 MCH 31.2 pg (25-34) 05/16/21 MCHC 31.2 g/dL (32-36) L 05/16/21 RDW Standard Deviation 61.2 fL (36.4-46.3) H 05/16/21 RDW Coefficient of Variation 16.7 % (11.5-14.5) H 05/16/21 Plt Count 114 K/uL (130-400) L 05/16/21 MPV 12.5 fL (7.4-10.4) H 05/16/21 Na 138 mmol/L (136-145) 05/16/21 K 3.8 mmol/L (3.5-5.1) 05/16/21 Cl 104 mmol/L (98-107) 05/16/21 CO2 28 mmol/L (21-32) 05/16/21 Anion Gap 6 (3-11) 05/16/21 BUN 21 mg/dl (6-23) 05/16/21 Creatinine 0.61 mg/dl (0.6-1.2) 05/16/21 Estimated GFR ( Amer) 103.5 ml/min 05/16/21 Estimated GFR (Non-Af Amer) 89.3 ml/min 05/16/21 BUN/Creatinine Ratio 34.4 (10-20) H 05/16/21 Glu 88 mg/dl (70-99(Fasting)) 05/16/21 Ca 8.5 mg/dl (8.5-10.1) 05/16/21 Mg 2.1 mg/dl (1.7-2.4) 05/16/21 05:15 05/16/21 Calcium Level 8.5 mg/dl (8.5-10.1) 05/16/21 05:15 05/16/21 Diagnostic Findings (Past 24 Hours) Chest X-Ray 05/15/21 08:00 XR chest 1V portable CLINICAL HISTORY: CHF TECHNIQUE: Single frontal radiograph of the chest was obtained. Comparison: Comparison is made to chest one view 05/14/2021 FINDINGS: No lines and tubes are seen. Cardiomegaly is noted. Bilateral lower lung predominant airspace opacities are seen. Small bilateral pleural effusions are seen. IMPRESSION: Small bilateral pleural effusions. Bilateral airspace opacities may represent atelectasis, pneumonia, and/or aspiration. Findings appear essentially stable from prior exam. ACT 112: Negative or not required by law. Electronically signed by: Jose Ramon Murcia M.D. 05/15/2021 9:38 AM Chest X-Ray 05/16/21 08:24 SINGLE VIEW CHEST CLINICAL HISTORY: Status post thoracentesis. FINDINGS: An AP, portable, upright chest radiograph is compared to study dated 05/15/2021 and correlated with chest CT dated 03/01/2019. The heart is enlarged noting atherosclerotic calcification of the thoracic ureter. Mild pulmonary vascular congestion persists. There are small left and moderate right pleural effusions with bibasilar consolidation. The left pleural effusion has decreased in size from previous. No pneumothorax is seen. The skeletal structures are osteopenic. The bony thorax is grossly intact. IMPRESSION: 1. Cardiomegaly with mild persistent pulmonary vascular congestion. 2. Right larger than left pleural effusions with bibasilar consolidation. The left pleural effusion has decreased in size from previous. 3. No pneumothorax is identified post procedure. ACT 112: Negative or not required by law. Electronically signed by: Kashif Rios M.D. 05/16/2021 8:54 AM I & O Totals 24 Hours 05/15/21 05/16/21 05/17/21 06:59 06:59 06:59 Intake Total 180 / 180 Output Total 300 / 300 Balance -120 / -120 Cumulative 05/14/21 14:44 thru 05/16/21 06:00 Intake Total 180 Output Total 300 Balance -120 RT Ventilator Mngmt (Last Documented) Ventilator Ordered Settings Respiratory Rate 16 05/16/21 04:30 Ventilator - PT Measurements Respiratory Rate 16 PG Care Time/CCT Total # of Minutes Spent Total Time Spent with Patient: Total time spent is greater than 50% in coordination of care (as documented) at patient's floor/unit and/or counseling patient: Coding Level of Care Code 55494 Initial Inpt Care Lvl 2 Diagnoses Pleural effusion J90 Dyspnea R06.00 Cardiac amyloidosis E85.4; I43 Acute heart failure with preserved ejection fraction (HFpEF) I50.31
[2021-05-16 09:14] LABS: Glucose Pleural Fluid 87 mg/dl; LDH Pleural Fluid 75 U/L; Total Protein Pleural Fluid < 3.0 gm/dl
--- NOTE | 2021-05-16 09:14 | Procedure Note ---
Procedure Note Date of Service May 16, 2021 Note Procedure: Diagnostic therapeutic ultrasound-guided catheter thoracentesis Dials Supervisor: Dr. Jv Granados Indication: Pleural effusion Consent: Signed by patient and verified with timeout prior to procedure Anesthesia: 6 mL's 1% lidocaine without epinephrine local. Procedure: Consent was verified and timeout performed. Appropriate imaging studies were reviewed prior to the procedure. Patient was placed in a seated position and limited thoracic ultrasound was performed of the bilateral chest. See separate imaging. Bilateral pleural effusions were noted, slightly larger on the left with associated compressive atelectasis. Site appropriate for thoracentesis was selected. The skin was prepped and draped in normal sterile fashion. Lidocaine was used for local analgesia. Fluid was aspirated via the finder needle. A small skin yelena was made with the scalpel and the catheter over the needle apparatus was advanced over the rib into the pleural space. Using the syringe one-way valve system, a total of 900mL's of cloudy halley slightly blood-tinged fluid was removed. Procedure was terminated due to patient experiencing some chest tightness and cough. The catheter was removed and observed to be intact. A sterile dressing was applied. Post procedure chest x-ray was ordered. Fluid was sent for cytology, Gram stain and culture, cell count differential, LDH, pH, total protein, and glucose. The patient tolerated the procedure well without obvious complication Coding CPT Codes Pulmonary/Thoracic - Pulmonary and Thoracic: 81296 Thoracentesis w imaging ([id number]) [facility] Procedure Codes (Charges) Pulmonary/Thoracic Procedure 1: Pulmonary and Thoracic: 42074 Thoracentesis w imaging
[2021-05-16 09:19] LABS: Appearance Pleural Fluid HAZY; Basophils, Fluid 0 %; Color Pleural Fluid STRAW; Eosinophils, Fluid 0 %; Lymphocytes, Fluid 56 %; Mono,Macrophage,Mesothelial 32 %; Neutrophils, Fluid 12 %; RBC Pleural Fluid (A) 3000 /uL; Source Pleural Fluid LEFT LUNG; WBC Pleural Fluid (A) 386 /uL
--- NOTE | 2021-05-16 10:11 | Cardiology Progress Note ---
Date of Service May 16, 2021 Assessment & Plan (1) Acute heart failure with preserved ejection fraction (HFpEF): (2) Cardiac amyloidosis: (3) Pleural effusion: (4) Sinus bradycardia: Plan: Patient responding to IV diuretics Continue furosemide 40 mg IV B/L pleural effusions, persistent. She underwent left sided thoracentesis this morning removing 900ml of fluid. Tolerated procedure. Post procedure chest xray with improved left pleural effusion. No pneumo Consider right sided thoracentesis tomorrow Appreciate pulm assistance She had 2 sinus pauses overnight. Asymptomatic. HR's have been bradycardic in the 50's. Will stop low dose metoprolol. Recommend monitoring I+O's closely. Fluid restriction of 1500 ml Daily weight with standing scale. Continue doxycycline 100 mg BID as this has been proven to aid with amyloid fibril formation. Case discussed with Dr. Molina. Will follow. Admission and Anticipated Discharge Date Admission Date: May 14, 2021 Supervising Physician Co-Signing Physician Notes Supervising Physician Attestation: I have personally performed a history and physical examination on the patient. I agree with the physician senior administrative assistant's findings and plan as documented with the following additions. Subjective: Patient feels subjectively improved status post left-sided thoracentesis, but still volume overloaded, with dyspnea, orthopnea, and generalized weakness. Exam: Reduced breath sounds at the right base, clear left base by comparison Cardiovascular: Bradycardic, no murmurs Extremities: 2+ edema Data: As per above Impression / Plan: Acute decompensation, chronic heart failure with preserved ejection fraction [place] cardiac amyloidosis -Discontinue metoprolol, due to bradycardia, and this medication is typically not helpful in amyloid. -Continue IV furosemide 40 mg daily. -Case discussed with pulmonary medicine, tentatively for right thoracentesis 05/17/2021 -Continue with doxycycline which has been shown to interfere with amyloid fibril formation. -Magnesium supplementation discontinued due to its potential interaction with doxycycline. DVT prophylaxis: -Subcutaneous heparin held this morning pending thoracentesis. Proceed with Lovenox 30 mg subcutaneous x1 dose 05/16/2021, ordered 1:49 PM. We will hold off on next dose until after reassessed post thoracentesis tomorrow. Garrett Molina, DO Subjective Patient resting in bed comfortably. Recently had left sided thoracentesis removing 900 ml's of fluid. Patient tolerated procedure. She reports chest tightness already improved and able to take deep inspiration with more ease. No chest pain. Edema remains persistent, but improving. No chest pain. No dizziness or lightheadedness. Review of Systems Review of Systems: All systems reviewed & are unremarkable except as noted in HPI & below Physical Exam Physical Exam: Temp Pulse Resp BP Pulse Ox 36.6 C 86 20 131/73 98 05/14/21 14:52 05/14/21 14:52 05/14/21 14:52 05/14/21 14:52 05/14/21 14:52 Constitutional: + ill appearing; no acute distress Eyes: PERRL, conjunctivae normal, anicteric sclerae Neck: trachea midline, no thyromegaly Respiratory: normal respiratory effort Auscultation: + diminished lung sounds (Right base ) and + crackles (left base) Cardiovascular: Rate/Rhythm: regular rhythm (with ectopy) Heart Sounds: no murmur Vessels: + JVD Extremities: + edema (1+ bilateral lower extremity edema ) Neurologic: PERRL, EOMI, accommodation nl, no face palsy, no dysarthria Psychiatric: A+Ox3, euthymic affect Results & Data ([facility]) Vital Signs (Past 12 Hours) Vital Signs Temp Pulse Resp BP Pulse Ox 05/16/21 04:30 36.9 C 51 L 16 106/54 L 98 05/15/21 23:00 36.6 C 59 L 18 110/58 L 96 Laboratory Results 05/16/21 05/16/21 05/16/21 Range/Units Unknown Unknown 05:15 WBC 3.03 L (4.8-10.8) K/uL RBC 3.97 L (4.2-5.4) M/uL Hgb 12.4 (12.0-16.0) g/dL Hct 39.8 (37-47) % MCV 100.3 H (80-100) fL MCH 31.2 (25-34) pg MCHC 31.2 L (32-36) g/dL RDW Std Deviation 61.2 H (36.4-46.3) fL RDW Coeff of Nasir 16.7 H (11.5-14.5) % Plt Count 114 L (130-400) K/uL MPV 12.5 H (7.4-10.4) fL Sodium (136-145) mmol/L Potassium (3.5-5.1) mmol/L Chloride (98-107) mmol/L Carbon Dioxide (21-32) mmol/L Anion Gap (3-11) BUN (6-23) mg/dl Creatinine (0.6-1.2) mg/dl Est Cr Clr Drug Dosing ml/min Est GFR ( Amer) ml/min Est GFR (Non-Af Amer) ml/min BUN/Creatinine Ratio (10-20) Glucose (70-99(Fasting)) mg/dl Calcium (8.5-10.1) mg/dl Magnesium (1.7-2.4) mg/dl Fluid Neutrophils % 12 % Fluid Lymphocytes % 56 % Fluid Eosinophils % 0 % Fluid Basophils % 0 % Fluid [place] % 32 % Fluid Comment Pleural Fluid Source LEFT LUNG Pleural Color STRAW Pleural Appearance HAZY Pleural pH 7.44 H (7.3-7.4) Pleural WBC 386 /uL Pleural RBC 3000 /uL Pleural Total Protein < 3.0 gm/dl Pleural LDH 75 U/L Pleural Glucose 87 mg/dl 05/16/21 Range/Units 05:15 WBC (4.8-10.8) K/uL RBC (4.2-5.4) M/uL Hgb (12.0-16.0) g/dL Hct (37-47) % MCV (80-100) fL MCH (25-34) pg MCHC (32-36) g/dL RDW Std Deviation (36.4-46.3) fL RDW Coeff of Nasir (11.5-14.5) % Plt Count (130-400) K/uL MPV (7.4-10.4) fL Sodium 138 (136-145) mmol/L Potassium 3.8 (3.5-5.1) mmol/L Chloride 104 (98-107) mmol/L Carbon Dioxide 28 (21-32) mmol/L Anion Gap 6 (3-11) BUN 21 (6-23) mg/dl Creatinine 0.61 (0.6-1.2) mg/dl Est Cr Clr Drug Dosing 73.6 ml/min Est GFR ( Amer) 103.5 ml/min Est GFR (Non-Af Amer) 89.3 ml/min BUN/Creatinine Ratio 34.4 H (10-20) Glucose 88 (70-99(Fasting)) mg/dl Calcium 8.5 (8.5-10.1) mg/dl Magnesium 2.1 (1.7-2.4) mg/dl Fluid Neutrophils % % Fluid Lymphocytes % % Fluid Eosinophils % % Fluid Basophils % % Fluid [place] % % Fluid Comment Pleural Fluid Source Pleural Color Pleural Appearance Pleural pH (7.3-7.4) Pleural WBC /uL Pleural RBC /uL Pleural Total Protein gm/dl Pleural LDH U/L Pleural Glucose mg/dl Diagnostic Findings Telemetry reviewed: Sinus bradycardia with HR's predominantly in the 50's. 2 sinus pauses overnight occurring around 1:40 AM and 5:51 AM Frequent atrial ectopy. Chest xray report reviewed, post thoracentesis: IMPRESSION: 1. Cardiomegaly with mild persistent pulmonary vascular congestion. 2. Right larger than left pleural effusions with bibasilar consolidation. The l eft pleural effusion has decreased in size from previous. Echo report reviewed from this admission: Summary of ttecho performed Study is technically adequate for the evaluation of the referral indication. 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 Compared to the prior outpatient study dated 01/23/2021, there is been interval increase in the size of the bilateral pleural effusions. There is severe concentric left ventricular hypertrophy. The left ventricular cavity size is small due to the severe concentric left ventricular hypertrophy. Ejection Fraction = >70 %. The left atrium is severely dilated. The right atrium is severely dilated. There is mild mitral regurgitation. There is severe tricuspid regurgitation. The proximal inferior vena cava is dilated, with < 50% collapse with inspiration , consistent with an elevated right atrial pressure of 15 mm Hg. Severe pulmonary hypertension is present. The estimated pulmonary systolic pressure= 60 mm Hg The left ventricular diastolic function is severely abnormal (grade III). Large left pleural effusion. Large right pleural effusion. 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 Nonspecific T wave abnormality No change from previous Medications Administered Current Inpatient Medications Acetaminophen (Acetaminophen 325 Mg Tab) 650 mg PO Q4H PRN PRN Reason: Pain or Fever Stop: 06/13/21 23:05 Aspirin (Aspirin 81 Mg Ectab) 81 mg PO DAILY RYANN Stop: 06/14/21 08:59 Last Admin: 05/15/21 11:52 Dose: 81 mg Documented by: Cyanocobalamin (Cyanocobalamin 500 Mcg Tablet (Vitamin B-12)) 1,000 mcg PO DAILY RYANN Stop: 06/14/21 08:59 Last Admin: 05/15/21 11:53 Dose: 1,000 mcg Documented by: Doxycycline Hyclate (Doxycycline Hyclate 100 Mg Cap) 100 mg PO BID RYANN; P rotocol Stop: 05/17/21 20:59 Last Admin: 05/15/21 21:21 Dose: 100 mg Documented by: Furosemide (Furosemide 40 Mg/4 Ml Vial) 40 mg IV DAILY [facility] Stop: 06/14/21 08:59 Last Admin: 05/15/21 11:51 Dose: 40 mg Documented by: Heparin Sodium (Porcine) (Heparin Sod 5,000 Unit/0.5 Ml Vial) 5,000 units SQ Q8H RYANN Stop: 06/14/21 00:00 Last Admin: 05/16/21 00:26 Dose: Not Given Documented by: Ondansetron HCl (Ondansetron Inj 2 Mg/Ml 2 Ml Vial) 4 mg IV Q6H PRN PRN Reason: Nausea Stop: 06/13/21 23:05 Pantoprazole Sodium (Pantoprazole 40 Mg Tab) 40 mg PO DAILY PRN PRN Reason: HEARTBURN/INDIGESTION Stop: 06/14/21 08:59 Polyethylene Glycol (Polyethylene (Miralax) 17 Gm Pack) 17 gm PO DAILY PRN PRN Reason: Constipation Stop: 06/13/21 23:05 Potassium Chloride (Potassium Chloride Crtab 20 Meq Tabcr) 20 meq PO BID RYANN Stop: 06/14/21 08:59 Last Admin: 05/15/21 21:14 Dose: 20 meq Documented by: Vitamin D (Cholecalciferol 1,000 Units 25 Mcg Tab) 1,000 units PO DAILY RYANN Stop: 06/14/21 08:59 Last Admin: 05/15/21 11:53 Dose: 1,000 units Documented by:
[2021-05-16] MEDS: CHOLECALCIFEROL 1,000 UNITS 25 MCG TAB PO SCH (10:18)
[2021-05-16] MEDS: ASPIRIN 81 MG ECTAB PO SCH (10:18)
[2021-05-16] MEDS: CYANOCOBALAMIN (B-12) 500 MCG TABLET PO SCH (10:19)
[2021-05-16] MEDS: FUROSEMIDE 40 MG/4 ML VIAL IV SCH (10:19)
[2021-05-16] MEDS: DOXYCYCLINE HYCLATE 100 MG CAP PO SCH ×2 (10:19→20:19)
[2021-05-16] MEDS: POTASSIUM CHLORIDE CRTAB 20 MEQ TABCR PO SCH ×2 (10:19→20:18)
[2021-05-16] MEDS: METOPROLOL SUCC 25MG EXT REL TAB PO SCH (11:21)
[2021-05-16] MEDS ORDERED: ENOXAPARIN INJ 30 MG/0.3 ML SYR SQ ONE (14:00)
[2021-05-16] MEDS: ACETAMINOPHEN 325 MG TAB PO PRN ×2 (15:28→20:12)
--- NOTE | 2021-05-16 15:46 | Hospitalist Progress Note ---
Date of Service May 16, 2021 Assessment & Plan (1) Acute heart failure with preserved ejection fraction (HFpEF): Plan: Acute on chronic diastolic CHF -Lasix 40mg IV daily -daily weight, I/O -Still volume overloaded -continue potassium, magnesium supplementation -TTE: compared to previous TTE, increased bilateral pleural effusions. Severe conc LVH, EF >70%, LA and RA severely dilated, severe TR, mild MR -Appreciate Cardiology input. Lasix management per Cardiology -Appreciate Pulm input. s/p left thoracentesis today (2) Cardiac amyloidosis: Plan: -doxycycline 100mg BID (3) Elevated troponin: Plan: Trend is flat, no chest pain Likely in setting of acute on chronic diastolic CHF (4) Multiple myeloma: Plan: Diagnosed 4-5 years ago, per patient. [place] [facility] [place]. [place] and [facility] (Dr. Luevano) Current regimen includes daratumumab every 4 weekly subcutaneously (last taken 05/09/21) and pomalidomide to 4 mg once a day for 3 weeks followed by 1 week off (on hold until 05/23/21) Plan: DVT Ppx: SQ heparin Code status: FULL PCP: Edgardo Boyce Dispo: Admitted to PCU Admission and Anticipated Discharge Date Admission Date: May 14, 2021 Subjective Today had left side thoracentesis with removal of 900 cc fluid Patient with cough but feels breathing improved Still with significant leg swelling Physical Exam Physical Exam: no acute distress, non toxic Respiratory: No wheezing/rhonchi Right lung base is diminished Left lung base with good airflow Cardiovascular: regular rate and rhythm, no murmurs/rubs/gallops Gastrointestinal (Abdomen): soft, non tender Musculoskeletal: 2-3 + edema (left>right) Neurologic: awake, alert, spontaneously moving extremities Results & Data Results & Data ([facility]) Vital Signs (Past 12 Hours) Vital Signs Temp Pulse Resp BP Pulse Ox 05/16/21 08:00 36.8 C 68 18 120/60 96 05/16/21 04:30 36.9 C 51 L 16 106/54 L 98 Laboratory Results Short CBC 05/16/21 Range/Units 05:15 WBC 3.03 L (4.8-10.8) K/uL Hgb 12.4 (12.0-16.0) g/dL Hct 39.8 (37-47) % Plt Count 114 L (130-400) K/uL BMP 05/16/21 05:15 Sodium 138 Potassium 3.8 Chloride 104 Carbon Dioxide 28 BUN 21 Creatinine 0.61 Glucose 88 Calcium 8.5 Medications Administered Current Inpatient Medications Acetaminophen (Acetaminophen 325 Mg Tab) 650 mg PO Q4H PRN PRN Reason: Pain or Fever Stop: 06/13/21 23:05 Last Admin: 05/16/21 15:28 Dose: 650 mg Documented by: Aspirin (Aspirin 81 Mg Ectab) 81 mg PO DAILY [facility] Stop: 06/14/21 08:59 Last Admin: 05/16/21 10:18 Dose: 81 mg Documented by: Cyanocobalamin (Cyanocobalamin 500 Mcg Tablet (Vitamin B-12)) 1,000 mcg PO DAILY [facility] Stop: 06/14/21 08:59 Last Admin: 05/16/21 10:19 Dose: 1,000 mcg Documented by: Doxycycline Hyclate (Doxycycline Hyclate 100 Mg Cap) 100 mg PO BID [facility]; Protocol Stop: 05/17/21 20:59 Last Admin: 05/16/21 10:19 Dose: 100 mg Documented by: Furosemide (Furosemide 40 Mg/4 Ml Vial) 40 mg IV DAILY [facility] Stop: 06/14/21 08:59 Last Admin: 05/16/21 10:19 Dose: 40 mg Documented by: Ondansetron HCl (Ondansetron Inj 2 Mg/Ml 2 Ml Vial) 4 mg IV Q6H PRN PRN Reason: Nausea Stop: 06/13/21 23:05 Pantoprazole Sodium (Pantoprazole 40 Mg Tab) 40 mg PO DAILY PRN PRN Reason: HEARTBURN/INDIGESTION Stop: 06/14/21 08:59 Polyethylene Glycol (Polyethylene (Miralax) 17 Gm Pack) 17 gm PO DAILY PRN PRN Reason: Constipation Stop: 06/13/21 23:05 Potassium Chloride (Potassium Chloride Crtab 20 Meq Tabcr) 20 meq PO BID [facility] Stop: 06/14/21 08:59 Last Admin: 05/16/21 10:19 Dose: 20 meq Documented by: Vitamin D (Cholecalciferol 1,000 Units 25 Mcg Tab) 1,000 units PO DAILY [facility] Stop: 06/14/21 08:59 Last Admin: 05/16/21 10:18 Dose: 1,000 units Documented by:
[2021-05-17 06:27] LABS: Hematocrit (blood only) 40.5 % (37-47); Hemoglobin 12.6 g/dL (12.0-16.0); Mean Corpuscular Hemoglobin 30.7 pg (25-34); Mean Corpuscular Hgb Conc 31.1 g/dL (32-36); Mean Corpuscular Volume 98.8 fL (80-100); Mean Platelet Volume 11.7 fL (7.4-10.4); Platelet Count 116 K/uL (130-400); RDW Coefficient of Variation 16.7 % (11.5-14.5); RDW Standard Deviation 59.9 fL (36.4-46.3); White Blood Count 3.27 K/uL (4.8-10.8)
[2021-05-17] MEDS: CHOLECALCIFEROL 1,000 UNITS 25 MCG TAB PO SCH (08:59)
[2021-05-17] MEDS: CYANOCOBALAMIN (B-12) 500 MCG TABLET PO SCH (08:59)
[2021-05-17] MEDS: ACETAMINOPHEN 325 MG TAB PO SCH ×3 (08:59→21:10)
[2021-05-17] MEDS: DOXYCYCLINE HYCLATE 100 MG CAP PO SCH (08:59)
[2021-05-17] MEDS: POTASSIUM CHLORIDE CRTAB 20 MEQ TABCR PO SCH ×2 (08:59→21:10)
[2021-05-17 09:55] LABS: BUN Creatinine Ratio 36.2 (10-20); Calcium 8.5 mg/dl (8.5-10.1); Creatinine Clr Calc Pharmacy 77.6 ml/min; Est GFR (African American) 105.2 ml/min; Est GFR (Non-African American) 90.8 ml/min; Potassium 4.1 mmol/L (3.5-5.1)
[2021-05-17] MEDS: FUROSEMIDE 40 MG/4 ML VIAL IV SCH (10:08)
[2021-05-17] MEDS: ASPIRIN 81 MG ECTAB PO SCH (10:08)
--- NOTE | 2021-05-17 10:47 | Pulmonology Progress Note ---
Date of Service May 17, 2021 Assessment & Plan (1) Pleural effusion: (2) Dyspnea: (3) Cardiac amyloidosis: (4) Acute heart failure with preserved ejection fraction (HFpEF): Plan: Impression: 75-year-old female with cardiac amyloid and heart failure with prese rved ejection fraction admitted with volume overload failing outpatient therapy. She has bilateral pleural effusions. She underwent thoracentesis for 900 cc on the left yesterday with transudate of effusion. Recommendations: 1. Bilateral pleural effusions: Transudate of on the left yesterday. She will undergo thoracentesis on the right today for symptomatic improvement. 2. Heart failure: Management per cardiology. 3. Dyspnea: We will follow chest x-ray post thoracentesis and see whether or not the patient has significant improvement. Depending on clinical response, may consider thoracentesis of the contralateral side within the next 24 hours. 4. Amyloid: Management per hematology oncology. Pulmonary will sign off after the thoracentesis on the right today. Would not recommend serial thoracentesis as a long-term volume management strategy. Discussed briefly with cardiology at the bedside Admission and Anticipated Discharge Date Admission Date: May 14, 2021 Subjective Patient seen and examined. EMR reviewed. She felt get better yesterday after the thoracentesis on the left. She continues to complain of some occasional cough and chest tightness. She had some transient pain last night which resolved with Tylenol. She is interested in pursuing thoracentesis on the right today. Review of Systems Review of Systems: All systems reviewed & are unremarkable except as noted in Subjective Physical Exam Constitutional: WD/WN, vitals as above Neck: trachea midline, no thyromegaly Respiratory: no respiratory distress, no labored breathing and not tachypneic Decreased breath sounds and dullness to percussion at the right lung base Cardiovascular: Rate/Rhythm: regular rate Heart Sounds: normal S1 and normal S2 Extremities: + edema Gastrointestinal (Abdomen): normal bowel sounds, soft, nontender, no hepatosplenomegaly Musculoskeletal: Extremities: extremities normal to inspection Skin: no rashes, warm and dry Lymphatic: no cervical lymphadenopathy Results & Data Results & Data ([facility]) Vital Signs (Past 12 Hours) Vital Signs Temp Pulse Pulse Resp BP Pulse Ox 05/17/21 05:55 36.6 C 52 L 18 110/60 92 05/17/21 02:00 36.4 C L 53 L 16 102/59 L 97 05/17/21 01:55 85 L Laboratory Results 05/17/21 06:03 05/17/21 08:33 Pleural fluid cytology negative Pleural fluid studies: Differential: 12% neutrophils, 56% lymphocytes, 0 eosinophils, and 32% mesothelial cells Pleural pH 7.44 Total protein less than 3 LDH 75 Glucose 87 Gram stain showed many white blood cells but no organisms, culture pending AFB stains negative, cultures pending Diagnostic Findings Post thoracentesis chest x-ray demonstrated small residual effusion on the left with persistent basilar opacification on the right. PG Care Time/CCT Total # of Minutes Spent Total Time Spent with Patient: Total time spent is greater than 50% in coordination of care (as documented) at patient's floor/unit and/or counseling patient: Coding Level of Care Code 12508 Subseq Hosp Care Lvl 2 Diagnoses Pleural effusion J90 Dyspnea R06.00 Cardiac amyloidosis E85.4; I43 Acute heart failure with preserved ejection fraction (HFpEF) I50.31
--- NOTE | 2021-05-17 10:49 | Procedure Note ---
Procedure Note Date of Service May 17, 2021 Note Procedure: Diagnostic therapeutic ultrasound-guided catheter thoracentesis, right Entry Level Paralegal: Dr. Jv Granados Indication: Pleural effusion Consent: Signed by patient and verified with timeout prior to procedure Anesthesia: 8 mL's 1% lidocaine without epinephrine local. Procedure: Consent was verified and timeout performed. Appropriate imaging studies were reviewed prior to the procedure. Patient was placed in a seated position and limited thoracic ultrasound was performed of the bilateral chest. A small amount of pleural fluid was identified on the left side. A moderate-sized right-sided residual effusion was also noted. The previous thoracentesis site on the left was clean dry and intact with the dressing intact. Site appropriate for thoracentesis on the right was selected. The skin was prepped and draped in normal sterile fashion. Lidocaine was used for local analgesia. Fluid was aspirated via the finder needle. A small skin yelena was made with the scalpel and the catheter over the needle apparatus was advanced over the rib into the pleural space. Using the syringe one-way valve system, a total of 1400mL's of clear amberfluid was removed. Procedure was terminated due to patient coughing and some chest pain. The catheter was removed and observed to be intact. A sterile dressing was applied. Post procedure chest x-ray was ordered. Fluid was not sent as fluid from yesterday was transitive on the left. Fluid appeared to be transudate of is well on the right. Post procedure ultrasound was performed. This revealed small amount of residual pleural fluid on the right side with lung sliding noted The patient tolerated the procedure well without obvious complication Coding CPT Codes Pulmonary/Thoracic - Pulmonary and Thoracic: 54451 Thoracentesis w imaging ([id number]) [facility] Procedure Codes (Charges) Pulmonary/Thoracic Procedure 1: Pulmonary and Thoracic: 98231 Thoracentesis w imaging
--- NOTE | 2021-05-17 10:59 | Cardiology Progress Note ---
Date of Service May 17, 2021 Assessment & Plan (1) Acute heart failure with preserved ejection fraction (HFpEF): (2) Cardiac amyloidosis: (3) Pleural effusion: (4) Sinus bradycardia: Plan: Patient responding to IV diuretics Continue furosemide 40 mg IV Plans for right sided thoracentesis today. Yesterday had left thoracentesis with 900 ml of fluid removed and improved symptoms. Appreciate pulm assistance She had 2 sinus pauses earlier this admission. Asymptomatic. HR's have been bradycardic in the 50's and metoprolol discontinued Recommend monitoring I+O's closely. Fluid restriction of 1500 ml Daily weight with standing scale. Continue doxycycline 100 mg BID , as this has been shown to interfere with amyloid fibril formation, and is recommended as an adjunctive treatment. Case discussed with Dr. Molina. Will follow. Admission and Anticipated Discharge Date Admission Date: May 14, 2021 Supervising Physician Co-Signing Physician Notes Supervising Physician Attestation: I have personally performed a history and physical examination on the patient. I agree with the physician family readiness support assistant's findings and plan as documented with the following additions. Subjective: Patient symptomatic improvement status post left thoracentesis 05/16/2021, at the time my assessment, Dr Granados had just arrived to the bedside to discuss right thoracentesis today. Patient still short of breath with minimal exertion. Pulse oximetry up to 92% when she lays very still, but with minimal exertion, drops into the upper 80s to 90s. Exam: Cardiovascular: Regular rhythm, 2+ edema, reduced breath sounds at left base Data: Telemetry reveals sinus rhythm in the 60s. Assessment and Plan: Problem list as noted above -Status post left thoracentesis, 05/16/2021, yielding 900 mL of pleural fluid -Status post right thoracentesis, 05/18/2021, yielding 1400 mL pleural fluid -Potassium, renal function, BP stable. -Continue furosemide 40 mg daily. -Patient tentatively planning third cardiology opinion, [facility] and was encouraged to keep this appointment DVT prophylaxis: Lovenox 40 mg subcu every 24 hours, at 1700. Garrett Molina, DO Subjective Patient resting in bed comfortably at time of visit this morning. Awaiting repeat thoracentesis. Tolerated left side. reports SOB has improved overall, but still requiring supplemental O2. Morning labs pending at time of evaluation. No dizziness or lightheadedness. No chest pain. Review of Systems Review of Systems: All systems reviewed & are unremarkable except as noted in HPI & below Physical Exam Physical Exam: Temp Pulse Resp BP Pulse Ox 36.6 C 86 20 131/73 98 05/14/21 14:52 05/14/21 14:52 05/14/21 14:52 05/14/21 14:52 05/14/21 14:52 Constitutional: + ill appearing; no acute distress Eyes: PERRL, conjunctivae normal, anicteric sclerae + anicteric sclerae Neck: trachea midline, no thyromegaly Respiratory: normal respiratory effort Auscultation: + diminished lung sounds (Right base ) and + crackles (left base) Cardiovascular: Rate/Rhythm: regular rhythm (with ectopy) Heart Sounds: no murmur Vessels: + JVD Extremities: + edema (1+ bilateral lower extremity edema ) Neurologic: PERRL, EOMI, accommodation nl, no face palsy, no dysarthria Psychiatric: A+Ox3, euthymic affect Results & Data ([facility]) Vital Signs (Past 12 Hours) Vital Signs Temp Pulse Pulse Resp BP Pulse Ox 05/17/21 05:55 36.6 C 52 L 18 110/60 92 05/17/21 02:00 36.4 C L 53 L 16 102/59 L 97 05/17/21 01:55 85 L Laboratory Results 05/17/21 05/17/21 05/17/21 Range/Units 08:33 06:03 06:03 WBC 3.27 L (4.8-10.8) K/uL RBC 4.10 L (4.2-5.4) M/uL Hgb 12.6 (12.0-16.0) g/dL Hct 40.5 (37-47) % MCV 98.8 (80-100) fL MCH 30.7 (25-34) pg MCHC 31.1 L (32-36) g/dL RDW Std Deviation 59.9 H (36.4-46.3) fL RDW Coeff of Nasir 16.7 H (11.5-14.5) % Plt Count 116 L (130-400) K/uL MPV 11.7 H (7.4-10.4) fL Sodium 137 (136-145) mmol/L Potassium 4.1 (3.5-5.1) mmol/L Chloride 103 (98-107) mmol/L Carbon Dioxide 28 (21-32) mmol/L Anion Gap 6 (3-11) BUN 21 (6-23) mg/dl Creatinine 0.58 L (0.6-1.2) mg/dl Est Cr Clr Drug Dosing 77.6 ml/min Est GFR ( Amer) 105.2 ml/min Est GFR (Non-Af Amer) 90.8 ml/min BUN/Creatinine Ratio 36.2 H (10-20) Glucose 83 (70-99(Fasting)) mg/dl Calcium 8.5 (8.5-10.1) mg/dl Magnesium 2.1 (1.7-2.4) mg/dl Diagnostic Findings Telemetry reviewed: Sinus bradycardia in the 50's. No recurrent pauses overnight since stopping metoprolol Medications Administered Current Inpatient Medications Acetaminophen (Acetaminophen 325 Mg Tab) 650 mg PO TID [facility] Stop: 05/20/21 08:59 Last Admin: 05/17/21 08:59 Dose: Not Given Documented by: Aspirin (Aspirin 81 Mg Ectab) 81 mg PO DAILY [facility] Stop: 06/14/21 08:59 Last Admin: 05/17/21 10:08 Dose: 81 mg Documented by: Cyanocobalamin (Cyanocobalamin 500 Mcg Tablet (Vitamin B-12)) 1,000 mcg PO DAILY [facility] Stop: 06/14/21 08:59 Last Admin: 05/17/21 08:59 Dose: 1,000 mcg Documented by: Doxycycline Hyclate (Doxycycline Hyclate 100 Mg Cap) 100 mg PO BID [facility]; Protocol Stop: 05/17/21 20:59 Last Admin: 05/17/21 08:59 Dose: 100 mg Documented by: Furosemide (Furosemide 40 Mg/4 Ml Vial) 40 mg IV DAILY [facility] Stop: 06/14/21 08:59 Last Admin: 05/17/21 10:08 Dose: 40 mg Documented by: Ondansetron HCl (Ondansetron Inj 2 Mg/Ml 2 Ml Vial) 4 mg IV Q6H PRN PRN Reason: Nausea Stop: 06/13/21 23:05 Pantoprazole Sodium (Pantoprazole 40 Mg Tab) 40 mg PO DAILY PRN PRN Reason: HEARTBURN/INDIGESTION Stop: 06/14/21 08:59 Polyethylene Glycol (Polyethylene (Miralax) 17 Gm Pack) 17 gm PO DAILY PRN PRN Reason: Constipation Stop: 06/13/21 23:05 Potassium Chloride (Potassium Chloride Crtab 20 Meq Tabcr) 20 meq PO BID [facility] Stop: 06/14/21 08:59 Last Admin: 05/17/21 08:59 Dose: 20 meq Documented by: Vitamin D (Cholecalciferol 1,000 Units 25 Mcg Tab) 1,000 units PO DAILY [facility] Stop: 06/14/21 08:59 Last Admin: 05/17/21 08:59 Dose: 1,000 units Documented by:
--- NOTE | 2021-05-17 13:45 | Hospitalist Progress Note ---
Date of Service May 17, 2021 Assessment & Plan (1) Acute heart failure with preserved ejection fraction (HFpEF): Plan: Acute on chronic diastolic CHF -Lasix 40mg IV daily -daily weight, I/O -Still volume overloaded -continue potassium, magnesium supplementation -TTE: compared to previous TTE, increased bilateral pleural effusions. Severe conc LVH, EF >70%, LA and RA severely dilated, severe TR, mild MR -Appreciate Cardiology input. Lasix management per Cardiology -Appreciate Pulm input. s/p left thoracentesis 05/16 (900 cc removed) and right thoracentesis 05/17 (1400 cc removed) (2) Cardiac amyloidosis: Plan: -doxycycline 100mg BID (3) Elevated troponin: Plan: Trend is flat, no chest pain Likely in setting of acute on chronic diastolic CHF (4) Multiple myeloma: Plan: Diagnosed 4-5 years ago, per patient. Follows with [facility] (Dr. Villela) and [facility] (Dr. Luevano) Current regimen includes daratumumab every 4 weekly subcutaneously (last taken 05/09/21) and pomalidomide to 4 mg once a day for 3 weeks followed by 1 week off (on hold until 05/23/21) Plan: DVT Ppx: SQ heparin Code status: FULL PCP: Edgardo Boyce Dispo: Admitted to PCU Admission and Anticipated Discharge Date Admission Date: May 14, 2021 Subjective Had right side thoracentesis with 1400 cc fluid removed this morning Feels much better Physical Exam Physical Exam: appears well, no acute distress, non toxic Respiratory: clear bilaterally, no wheezing/rhonchi/rales Cardiovascular: regular rate and rhythm, no murmurs/rubs/gallops Gastrointestinal (Abdomen): soft, non tender, non distended Musculoskeletal: 2+ edema bilaterally, no clubbing, cyanosis Neurologic: awake, alert, spontaneously moving extremities Results & Data Results & Data ([facility]) Vital Signs (Past 12 Hours) Vital Signs Temp Pulse Pulse Pulse Resp BP BP 05/17/21 13:05 53 L 05/17/21 12:01 45 L 23 107/57 L 05/17/21 12:00 50 L 20 05/17/21 11:24 36.4 C L 05/17/21 11:04 36.9 C 05/17/21 09:54 60 19 116/67 05/17/21 08:00 36.8 C 05/17/21 05:55 36.6 C 52 L 18 110/60 05/17/21 02:00 36.4 C L 53 L 16 102/59 L 05/17/21 01:55 Pulse Ox 05/17/21 13:05 05/17/21 12:01 05/17/21 12:00 97 05/17/21 11:24 05/17/21 11:04 05/17/21 09:54 92 05/17/21 08:00 05/17/21 05:55 92 05/17/21 02:00 97 05/17/21 01:55 85 L Laboratory Results Short CBC 05/17/21 Range/Units 06:03 WBC 3.27 L (4.8-10.8) K/uL Hgb 12.6 (12.0-16.0) g/dL Hct 40.5 (37-47) % Plt Count 116 L (130-400) K/uL BMP 05/17/21 08:33 Sodium 137 Potassium 4.1 Chloride 103 Carbon Dioxide 28 BUN 21 Creatinine 0.58 L Glucose 83 Calcium 8.5 Medications Administered Current Inpatient Medications Acetaminophen (Acetaminophen 325 Mg Tab) 650 mg PO TID [facility] Stop: 05/20/21 08:59 Last Admin: 05/17/21 08:59 Dose: Not Given Documented by: Aspirin (Aspirin 81 Mg Ectab) 81 mg PO DAILY [facility] Stop: 06/14/21 08:59 Last Admin: 05/17/21 10:08 Dose: 81 mg Documented by: Cyanocobalamin (Cyanocobalamin 500 Mcg Tablet (Vitamin B-12)) 1,000 mcg PO DAILY [facility] Stop: 06/14/21 08:59 Last Admin: 05/17/21 08:59 Dose: 1,000 mcg Documented by: Doxycycline Hyclate (Doxycycline Hyclate 100 Mg Cap) 100 mg PO BID [facility]; Protocol Stop: 05/17/21 20:59 Last Admin: 05/17/21 08:59 Dose: 100 mg Documented by: Enoxaparin Sodium (Enoxaparin Inj 40 Mg/0.4 Ml Syr) 40 mg SQ QD@1700 [facility] Stop: 06/16/21 16:59 Furosemide (Furosemide 40 Mg/4 Ml Vial) 40 mg IV DAILY [facility] Stop: 06/14/21 08:59 Last Admin: 05/17/21 10:08 Dose: 40 mg Documented by: Ondansetron HCl (Ondansetron Inj 2 Mg/Ml 2 Ml Vial) 4 mg IV Q6H PRN PRN Reason: Nausea Stop: 06/13/21 23:05 Pantoprazole Sodium (Pantoprazole 40 Mg Tab) 40 mg PO DAILY PRN PRN Reason: HEARTBURN/INDIGESTION Stop: 06/14/21 08:59 Polyethylene Glycol (Polyethylene (Miralax) 17 Gm Pack) 17 gm PO DAILY PRN PRN Reason: Constipation Stop: 06/13/21 23:05 Potassium Chloride (Potassium Chloride Crtab 20 Meq Tabcr) 20 meq PO BID [facility] Stop: 06/14/21 08:59 Last Admin: 05/17/21 08:59 Dose: 20 meq Documented by: Vitamin D (Cholecalciferol 1,000 Units 25 Mcg Tab) 1,000 units PO DAILY [facility] Stop: 06/14/21 08:59 Last Admin: 05/17/21 08:59 Dose: 1,000 units Documented by:
--- NOTE | 2021-05-17 16:50 | XRay Report ---
XR chest 1V portable CLINICAL HISTORY: post R thora TECHNIQUE: Single frontal radiograph of the chest was obtained. Comparison: Comparison is made to chest one view 05/16/2021 FINDINGS: No lines and tubes are seen. Cardiomegaly is noted. Bilateral lower lung predominant airspace opaciti es are seen. Interval decrease in size of right pleural effusion. No evidence of pneumothorax. Small bilateral effusions remain. IMPRESSION: 1. Status post right thoracentesis without evidence of pneumothorax. Small bilateral pleural effusio ns remain. 2. Bilateral lower lung predominant airspace opacities may reflect atelectasis, pneumonia, and/or as piration. 3. Stable cardiomegaly. ACT 112: Negative or not required by law. Electronically signed by: Jose Ramon Murcia M.D. 05/17/2021 4:48 PM
[2021-05-17] MEDS: ENOXAPARIN INJ 40 MG/0.4 ML SYR SQ SCH (18:08)
[2021-05-18 06:34] LABS: BUN Creatinine Ratio 38.2 (10-20); Calcium 8.2 mg/dl (8.5-10.1); Creatinine Clr Calc Pharmacy 80.8 ml/min; Est GFR (African American) 107.1 ml/min; Est GFR (Non-African American) 92.4 ml/min; Potassium 3.9 mmol/L (3.5-5.1)
--- NOTE | 2021-05-18 08:49 | Cardiology Progress Note ---
Date of Service May 18, 2021 Assessment & Plan (1) Acute heart failure with preserved ejection fraction (HFpEF): (2) Cardiac amyloidosis: (3) Pleural effusion: (4) Sinus bradycardia: Plan: Patient responding to IV diuretics She had b/l thoracentesis this week. Left sided removed 900 ml Right sided removed 1400 ml Tolerated without issues. Still with b/l crackles and edema. Stable renal function/electrolytes. Increase furosemide to 40 mg BID today. Ongoing sinus bradycardia. No recurrent pauses since holding metoprolol. She had brief episode of atrial tach yesterday, was asymptomatic. Will not resume metoprolol due to bradycardia. Recommend monitoring I+O's closely. Fluid restriction of 1500 ml Daily weight with standing scale. Continue doxycycline 100 mg BID , as this has been shown to interfere with amyloid fibril formation, and is recommended as an adjunctive treatment. Case discussed with Dr. Molina. Will follow. Admission and Anticipated Discharge Date Admission Date: May 14, 2021 Supervising Physician Co-Signing Physician Notes Supervising Physician Attestation: I have personally performed a history and physical examination on the patient. I agree with the physician captain assistant's findings and plan as documented with the following additions. Subjective: Patient subjectively improving, however with ongoing subjective weakness. Still volume overloaded. Exam: Cardiovascular: Regular rhythm, 2+ edema, Breath sounds improved. Data: Telemetry reveals sinus rhythm in the 60s. Assessment and Plan: Problem list as noted above -Status post left thoracentesis, 05/16/2021, yielding 900 mL of pleural fluid -Status post right thoracentesis, 05/18/2021, yielding 1400 mL pleural fluid -Potassium, renal function, BP stable. -Increase furosemide to 40 mg IV BID -Patient tentatively planning third cardiology opinion, [facility] and was encouraged to keep this appointment -I spoke to PCU charge nurse with my request to prioritize getting her a telemetry bed rather than ED hold status pending availability. Dr Mathews rounding for the weekend. DVT prophylaxis: Lovenox 40 mg subcu every 24 hours, at 1700. Subjective Patient resting in bed comfortably. Reports SOB continues to improve. No longer requiring supplemental oxygen. Notes ongoing cough. Slept better last night. Denies chest pain. No dizziness or lightheadedness. Edema present around the ankles but improving Review of Systems Review of Systems: All systems reviewed & are unremarkable except as noted in HPI & below Physical Exam Physical Exam: Temp Pulse Resp BP Pulse Ox 36.6 C 86 20 131/73 98 05/14/21 14:52 05/14/21 14:52 05/14/21 14:52 05/14/21 14:52 05/14/21 14:52 Constitutional: + ill appearing; no acute distress Eyes: PERRL, conjunctivae normal, anicteric sclerae + anicteric sclerae Neck: trachea midline, no thyromegaly Respiratory: normal respiratory effort Auscultation: + diminished lung sounds (Right base ) and + crackles (left base) Cardiovascular: Rate/Rhythm: regular rhythm (with ectopy) Heart Sounds: no murmur Vessels: + JVD Extremities: + edema (1+ bilateral lower extremity edema ) Neurologic: PERRL, EOMI, accommodation nl, no face palsy, no dysarthria Psychiatric: A+Ox3, euthymic affect Results & Data ([facility]) Vital Signs (Past 12 Hours) Vital Signs Temp Pulse Resp BP Pulse Ox 05/18/21 00:00 36.6 C 52 L 17 90/49 L 92 Laboratory Results 05/18/21 Range/Units 05:20 Sodium 136 (136-145) mmol/L Potassium 3.9 (3.5-5.1) mmol/L Chloride 106 (98-107) mmol/L Carbon Dioxide 26 (21-32) mmol/L Anion Gap 4 (3-11) BUN 21 (6-23) mg/dl Creatinine 0.55 L (0.6-1.2) mg/dl Est Cr Clr Drug Dosing 80.8 ml/min Est GFR ( Amer) 107.1 ml/min Est GFR (Non-Af Amer) 92.4 ml/min BUN/Creatinine Ratio 38.2 H (10-20) Glucose 80 (70-99(Fasting)) mg/dl Calcium 8.2 L (8.5-10.1) mg/dl Magnesium 2.0 (1.7-2.4) mg/dl Diagnostic Findings Telemetry reviewed: sinus bradycardia in the 50's. She had brief runs of atrial tach yesterday afternoon, lasting approx 15 seconds. Chest xray report reviewed dated 05/17/21: IMPRESSION: 1. Status post right thoracentesis without evidence of pneumothorax. Small bilateral pleural effusions remain. 2. Bilateral lower lung predominant airspace opacities may reflect atelectasis, pneumonia, and/or aspiration. 3. Stable cardiomegaly. Medications Administered Current Inpatient Medications Acetaminophen (Acetaminophen 325 Mg Tab) 650 mg PO TID [facility] Stop: 05/20/21 08:59 Last Admin: 05/18/21 09:24 Dose: 650 mg Documented by: Aspirin (Aspirin 81 Mg Ectab) 81 mg PO DAILY [facility] Stop: 06/14/21 08:59 Last Admin: 05/18/21 09:24 Dose: 81 mg Documented by: Cyanocobalamin (Cyanocobalamin 500 Mcg Tablet (Vitamin B-12)) 1,000 mcg PO DAILY [facility] Stop: 06/14/21 08:59 Last Admin: 05/18/21 09:25 Dose: 1,000 mcg Documented by: Enoxaparin Sodium (Enoxaparin Inj 40 Mg/0.4 Ml Syr) 40 mg SQ QD@1700 [facility] Stop: 06/16/21 16:59 Last Admin: 05/17/21 18:08 Dose: 40 mg Documented by: Furosemide (Furosemide 40 Mg/4 Ml Vial) 40 mg IV [id number] [facility] Stop: 06/17/21 14:59 Ondansetron HCl (Ondansetron Inj 2 Mg/Ml 2 Ml Vial) 4 mg IV Q6H PRN PRN Reason: Nausea Stop: 06/13/21 23:05 Pantoprazole Sodium (Pantoprazole 40 Mg Tab) 40 mg PO DAILY PRN PRN Reason: HEARTBURN/INDIGESTION Stop: 06/14/21 08:59 Polyethylene Glycol (Polyethylene (Miralax) 17 Gm Pack) 17 gm PO DAILY PRN PRN Reason: Constipation Stop: 06/13/21 23:05 Potassium Chloride (Potassium Chloride Crtab 20 Meq Tabcr) 20 meq PO BID [facility] Stop: 06/14/21 08:59 Last Admin: 05/18/21 09:25 Dose: 20 meq Documented by: Vitamin D (Cholecalciferol 1,000 Units 25 Mcg Tab) 1,000 units PO DAILY [facility] Stop: 06/14/21 08:59 Last Admin: 05/18/21 09:25 Dose: 1,000 units Documented by:
[2021-05-18] MEDS: ACETAMINOPHEN 325 MG TAB PO SCH ×3 (09:24→20:59)
[2021-05-18] MEDS: ASPIRIN 81 MG ECTAB PO SCH (09:24)
[2021-05-18] MEDS: CYANOCOBALAMIN (B-12) 500 MCG TABLET PO SCH (09:25)
[2021-05-18] MEDS: POTASSIUM CHLORIDE CRTAB 20 MEQ TABCR PO SCH ×2 (09:25→21:00)
[2021-05-18] MEDS: FUROSEMIDE 40 MG/4 ML VIAL IV SCH ×2 (09:25→14:56)
[2021-05-18] MEDS: CHOLECALCIFEROL 1,000 UNITS 25 MCG TAB PO SCH (09:25)
[2021-05-18] MEDS: ENOXAPARIN INJ 40 MG/0.4 ML SYR SQ SCH (17:16)
--- NOTE | 2021-05-18 18:15 | Hospitalist Progress Note ---
Date of Service May 18, 2021 Assessment & Plan (1) Acute heart failure with preserved ejection fraction (HFpEF): Plan: Acute on chronic diastolic CHF -Lasix 40mg IV daily--> now increased to BID. Management per Cardiology -daily weight, I/O -Still volume overloaded -continue potassium, magnesium supplementation -TTE: compared to previous TTE, increased bilateral pleural effusions. Severe conc LVH, EF >70%, LA and RA severely dilated, severe TR, mild MR -Appreciate Cardiology input. Lasix management per Cardiology -Appreciate Pulm input. s/p left thoracentesis 05/16 (900 cc removed) and right thoracentesis 05/17 (1400 cc removed) (2) Cardiac amyloidosis: Plan: -doxycycline 100mg BID (3) Elevated troponin: Plan: Trend is flat, no chest pain Likely in setting of acute on chronic diastolic CHF (4) Multiple myeloma: Plan: Diagnosed 4-5 years ago, per patient. [place]s [place] [facility] (Dr. Villela) and [facility] (Dr. Luevano) Current regimen includes daratumumab every 4 weekly subcutaneously (last taken 05/09/21) and pomalidomide to 4 mg once a day for 3 weeks followed by 1 week off (on hold until 05/23/21) Plan: DVT Ppx: SQ heparin Code status: FULL PCP: Edgardo Boyce Dispo: Admitted to PCU Admission and Anticipated Discharge Date Admission Date: May 14, 2021 Subjective Feels well. legs feel less swollen. on RA today Physical Exam Physical Exam: Appears well, no acute distress Respiratory: breathing comfortably on room air, no wheezing/rhonchi/rales Cardiovascular: bradycardic, no murmurs/rubs Gastrointestinal (Abdomen): soft, non tender Musculoskeletal: 2+ edema Neurologic: awake, alert, spontaneously moving extremities Results & Data Results & Data ([facility]) Vital Signs (Past 12 Hours) Vital Signs Temp Pulse Pulse Resp BP BP Pulse Ox 05/18/21 16:38 60 20 100/59 L 95 05/18/21 12:08 36.7 C 52 L 22 111/55 L 96 05/18/21 09:00 36.5 C 60 18 102/51 L 93 Laboratory Results [facility] 05/18/21 05:20 Sodium 136 Potassium 3.9 Chloride 106 Carbon Dioxide 26 BUN 21 Creatinine 0.55 L Glucose 80 Calcium 8.2 L Medications Administered Current Inpatient Medications Acetaminophen (Acetaminophen 325 Mg Tab) 650 mg PO TID [facility] Stop: 05/20/21 08:59 Last Admin: 05/18/21 14:46 Dose: 650 mg Documented by: Aspirin (Aspirin 81 Mg Ectab) 81 mg PO DAILY [facility] Stop: 06/14/21 08:59 Last Admin: 05/18/21 09:24 Dose: 81 mg Documented by: Cyanocobalamin (Cyanocobalamin 500 Mcg Tablet (Vitamin B-12)) 1,000 mcg PO DAILY [facility] Stop: 06/14/21 08:59 Last Admin: 05/18/21 09:25 Dose: 1,000 mcg Documented by: Enoxaparin Sodium (Enoxaparin Inj 40 Mg/0.4 Ml Syr) 40 mg SQ QD@1700 [facility] Stop: 06/16/21 16:59 Last Admin: 05/18/21 17:16 Dose: 40 mg Documented by: Furosemide (Furosemide 40 Mg/4 Ml Vial) 40 mg IV [id number] [facility] Stop: 06/17/21 14:59 Last Admin: 05/18/21 14:56 Dose: 40 mg Documented by: Ondansetron HCl (Ondansetron Inj 2 Mg/Ml 2 Ml Vial) 4 mg IV Q6H PRN PRN Reason: Nausea Stop: 06/13/21 23:05 Pantoprazole Sodium (Pantoprazole 40 Mg Tab) 40 mg PO DAILY PRN PRN Reason: HEARTBURN/INDIGESTION Stop: 06/14/21 08:59 Polyethylene Glycol (Polyethylene (Miralax) 17 Gm Pack) 17 gm PO DAILY PRN PRN Reason: Constipation Stop: 06/13/21 23:05 Potassium Chloride (Potassium Chloride Crtab 20 Meq Tabcr) 20 meq PO BID [facility] Stop: 06/14/21 08:59 Last Admin: 05/18/21 09:25 Dose: 20 meq Documented by: Vitamin D (Cholecalciferol 1,000 Units 25 Mcg Tab) 1,000 units PO DAILY [facility] Stop: 06/14/21 08:59 Last Admin: 05/18/21 09:25 Dose: 1,000 units Documented by:
[2021-05-19 07:31] LABS: BUN Creatinine Ratio 28.6 (10-20); Calcium 8.2 mg/dl (8.5-10.1); Creatinine Clr Calc Pharmacy 64.8 ml/min; Est GFR (African American) 102.4 ml/min; Est GFR (Non-African American) 88.4 ml/min; Potassium 4.1 mmol/L (3.5-5.1)
[2021-05-19] MEDS: FUROSEMIDE 40 MG/4 ML VIAL IV SCH ×2 (08:32→16:49)
[2021-05-19] MEDS: POTASSIUM CHLORIDE CRTAB 20 MEQ TABCR PO SCH ×2 (08:33→20:47)
[2021-05-19] MEDS: ASPIRIN 81 MG ECTAB PO SCH (08:33)
[2021-05-19] MEDS: CHOLECALCIFEROL 1,000 UNITS 25 MCG TAB PO SCH (08:33)
[2021-05-19] MEDS: ACETAMINOPHEN 325 MG TAB PO SCH ×3 (08:33→17:29)
[2021-05-19] MEDS: CYANOCOBALAMIN (B-12) 500 MCG TABLET PO SCH (08:34)
--- NOTE | 2021-05-19 12:58 | Hospitalist Progress Note ---
Date of Service May 19, 2021 Assessment & Plan (1) Acute heart failure with preserved ejection fraction (HFpEF): Plan: Acute on chronic diastolic CHF -Lasix 40mg IV BID. Management per Cardiology -daily weight, I/O -TTE: compared to previous TTE, increased bilateral pleural effusions. Severe conc LVH, EF >70%, LA and RA severely dilated, severe TR, mild MR -Appreciate Pulm input. s/p left thoracentesis 05/16 (900 cc removed) and right thoracentesis 05/17 (1400 cc removed) -Overall improved, still with bilateral feet and ankle swelling (2) Cardiac amyloidosis: Plan: -doxycycline 100mg BID (3) Elevated troponin: Plan: Trend is flat, no chest pain Likely in setting of acute on chronic diastolic CHF (4) Multiple myeloma: Plan: Diagnosed 4-5 years ago, per patient. [place]s with [facility] (Dr. Villela) and [facility]ematology (Dr. Luevano) Current regimen includes daratumumab every 4 weekly subcutaneously (last taken 05/09/21) and pomalidomide to 4 mg once a day for 3 weeks followed by 1 week off (on hold until 05/23/21) Plan: DVT Ppx: SQ heparin Code status: FULL PCP: Edgardo Boyce Dispo: Admitted to PCU Patient can likely be discharged in next 24-48 hours pending continued improvement with diuresis Admission and Anticipated Discharge Date Admission Date: May 14, 2021 Subjective Leg swelling improved Still feels mild SOB with exertion (overall improved however) Physical Exam Physical Exam: Pleasant, non toxic Respiratory: clear, no wheezing/rhonchi/rales Cardiovascular: regular rate and rhythm, no murmurs/rubs/gallops Gastrointestinal (Abdomen): soft, non tender, non distended Musculoskeletal: 1-2+ edema bilateral feet, improved lower extremity edema Neurologic: awake, alert, spontaneously moving extremities Results & Data Results & Data ([facility]) Vital Signs (Past 12 Hours) Vital Signs Temp Pulse Pulse Resp BP BP Pulse Ox 05/19/21 12:03 36.5 C 64 18 108/60 94 05/19/21 08:31 60 99/62 L 05/19/21 07:56 36.5 C 66 20 95/58 L 92 05/19/21 03:29 36.5 C 58 L 16 100/55 L 95 Laboratory Results BMP 05/19/21 06:30 Sodium 137 Potassium 4.1 Chloride 105 Carbon Dioxide 30 BUN 18 Creatinine 0.63 Glucose 77 Calcium 8.2 L Medications Administered Current Inpatient Medications Acetaminophen (Acetaminophen 325 Mg Tab) 650 mg PO TID [facility] Stop: 05/20/21 08:59 Last Admin: 05/19/21 08:33 Dose: Not Given Documented by: Aspirin (Aspirin 81 Mg Ectab) 81 mg PO DAILY RYANN Stop: 06/14/21 08:59 Last Admin: 05/19/21 08:33 Dose: 81 mg Documented by: Cyanocobalamin (Cyanocobalamin 500 Mcg Tablet (Vitamin B-12)) 1,000 mcg PO DAILY RYANN Stop: 06/14/21 08:59 Last Admin: 05/19/21 08:34 Dose: 1,000 mcg Documented by: Enoxaparin Sodium (Enoxaparin Inj 40 Mg/0.4 Ml Syr) 40 mg SQ QD@1700 [facility] Stop: 06/16/21 16:59 Last Admin: 05/18/21 17:16 Dose: 40 mg Documented by: Furosemide (Furosemide 40 Mg/4 Ml Vial) 40 mg IV BID17 [facility] Stop: 06/17/21 14:59 Last Admin: 05/19/21 08:32 Dose: 40 mg Documented by: Ondansetron HCl (Ondansetron Inj 2 Mg/Ml 2 Ml Vial) 4 mg IV Q6H PRN PRN Reason: Nausea Stop: 06/13/21 23:05 Pantoprazole Sodium (Pantoprazole 40 Mg Tab) 40 mg PO DAILY PRN PRN Reason: HEARTBURN/INDIGESTION Stop: 06/14/21 08:59 Polyethylene Glycol (Polyethylene (Miralax) 17 Gm Pack) 17 gm PO DAILY PRN PRN Reason: Constipation Stop: 06/13/21 23:05 Potassium Chloride (Potassium Chloride Crtab 20 Meq Tabcr) 20 meq PO BID RYANN Stop: 06/14/21 08:59 Last Admin: 05/19/21 08:33 Dose: 20 meq Documented by: Vitamin D (Cholecalciferol 1,000 Units 25 Mcg Tab) 1,000 units PO DAILY RYANN Stop: 06/14/21 08:59 Last Admin: 05/19/21 08:33 Dose: 1,000 units Documented by:
--- NOTE | 2021-05-19 14:52 | Cardiology Progress Note ---
Date of Service May 19, 2021 Assessment & Plan (1) Acute heart failure with preserved ejection fraction (HFpEF): (2) Cardiac amyloidosis: (3) Pleural effusion: (4) Sinus bradycardia: Plan: Continue IV furosemide 40 mg twice daily. Bilateral thoracentesis performed this week with removal of 900 cc on the left side, 1400 cc on the right. Monitor daily weight, fluid balance, GFR, and electrolytes. Telemetry reveals sinus bradycardia with frequent PACs. No recurrent pauses since 05/17. Beta deneen on hold. Occasional episodes of PAT on telemetry without associated symptoms. Ongoing sinus bradycardia. No recurrent pauses since holding metoprolol. She had brief episode of atrial tach yesterday, was asymptomatic. Will not resume metoprolol due to bradycardia. Continue doxycycline 100 mg BID , as this has been shown to interfere with amyloid fibril formation, and is recommended as an adjunctive treatment. Admission and Anticipated Discharge Date Admission Date: May 14, 2021 Subjective Patient seen exam at the bedside. Fluid balance negative overnight. Renal function remains stable. Edema and abdominal bloating improved. Denies orthopnea or PND. Telemetry revealing sinus bradycardia with frequent PACs, heart rate ranging 50-60 bpm. 3-second pause recorded post PVC on 05/17/2021. Patient denies lightheadedness, dizziness, syncope, or near syncope. Review of Systems Review of Systems: All systems reviewed & are unremarkable except as noted in Subjective Physical Exam Constitutional: well developed and + ill appearing; no acute distress Respiratory: normal respiratory effort; no respiratory distress Auscultation: + crackles (Bases bilateral); no rales, no rhonchi and no wheezes Cardiovascular: Rate/Rhythm: + abnormal rate and + abnormal rhythm Heart Sounds: normal S1 and normal S2; no murmur Vessels: radial pulses present; no JVD and no carotid bruit Extremities: + edema Gastrointestinal (Abdomen): Inspection/Auscultation: abdomen normal to inspection and normal bowel sounds; abdomen not distended Percussion/Palpation: abdomen soft; abdomen nontender, no guarding and abdomen not rigid Skin: Bilateral ocular xanthelasma Neurologic: CN's II-XI intact bilaterally and moves all extremities; no focal motor deficits Psychiatric: A+Ox3, euthymic affect Results & Data ([facility]) Vital Signs (Past 12 Hours) Vital Signs Temp Pulse Pulse Resp BP BP Pulse Ox 05/19/21 12:03 36.5 C 64 18 108/60 94 05/19/21 08:31 60 99/62 L 05/19/21 07:56 36.5 C 66 20 95/58 L 92 05/19/21 03:29 36.5 C 58 L 16 100/55 L 95
[2021-05-19] MEDS: ENOXAPARIN INJ 40 MG/0.4 ML SYR SQ SCH (16:50)
[2021-05-19] MEDS ORDERED: ACETAMINOPHEN 325 MG TAB PO PRN (17:40)
[2021-05-20 06:08] LABS: Hematocrit (blood only) 39.7 % (37-47); Hemoglobin 12.6 g/dL (12.0-16.0); Mean Corpuscular Hemoglobin 31.3 pg (25-34); Mean Corpuscular Hgb Conc 31.7 g/dL (32-36); Mean Corpuscular Volume 98.5 fL (80-100); Mean Platelet Volume 11.9 fL (7.4-10.4); Platelet Count 163 K/uL (130-400); RDW Coefficient of Variation 16.6 % (11.5-14.5); Red Blood Count 4.03 M/uL (4.2-5.4); White Blood Count 3.52 K/uL (4.8-10.8)
[2021-05-20 06:33] LABS: BUN Creatinine Ratio 29.3 (10-20); Calcium 8.3 mg/dl (8.5-10.1); Creatinine Clr Calc Pharmacy 70.4 ml/min; Est GFR (African American) 105.2 ml/min; Est GFR (Non-African American) 90.8 ml/min; Potassium 4.1 mmol/L (3.5-5.1)
[2021-05-20] MEDS: CHOLECALCIFEROL 1,000 UNITS 25 MCG TAB PO SCH (07:24)
[2021-05-20] MEDS: CYANOCOBALAMIN (B-12) 500 MCG TABLET PO SCH (07:24)
[2021-05-20] MEDS: ASPIRIN 81 MG ECTAB PO SCH (07:25)
[2021-05-20] MEDS: POTASSIUM CHLORIDE CRTAB 20 MEQ TABCR PO SCH ×2 (07:29→20:55)
[2021-05-20] MEDS: FUROSEMIDE 40 MG/4 ML VIAL IV SCH ×2 (07:29→18:17)
--- NOTE | 2021-05-20 10:56 | Electrocardiogram Report ---
Test Reason : Blood Pressure : / mmHG Vent. Rate : 062 BPM Atrial Rate : 062 BPM P-R Int : 182 ms QRS Dur : 098 ms QT Int : 420 ms P-R-T Axes : 012 096 158 degrees QTc Int : 426 ms Sinus rhythm with Premature atrial complexes Rightward axis Low voltage QRS Nonspecific ST and T wave abnormality Abnormal ECG When compared with ECG of 03-MAR-2019 06:35, Premature atrial complexes are now Present Confirmed by Jewel Rodgers ([id number]) on 05/20/2021 10:56:19 AM Referred By: REFERRED SELF Confirmed By:Jewel Rodgers
--- NOTE | 2021-05-20 10:57 | Electrocardiogram Report ---
Test Reason : Blood Pressure : / mmHG Vent. Rate : 060 BPM Atrial Rate : 144 BPM P-R Int : 000 ms QRS Dur : 098 ms QT Int : 454 ms P-R-T Axes : 000 102 132 degrees QTc Int : 454 ms Normal sinus rhythm with PAC's Rightward axis Low voltage QRS Nonspecific ST and T wave abnormality Abnormal ECG When compared with ECG of 20-MAY-2020 00:15, (unconfirmed) No significant change was found Confirmed by Jewel Rodgers ([id number] on 05/20/2021 10:56:56 AM Referred By: REFERRED SELF Confirmed By:Jewel Rodgers
--- NOTE | 2021-05-20 13:07 | Cardiology Progress Note ---
Date of Service May 20, 2021 Assessment & Plan (1) Acute heart failure with preserved ejection fraction (HFpEF): (2) Cardiac amyloidosis: (3) Pleural effusion: (4) Sinus bradycardia: Plan: Continue IV furosemide 40 mg twice daily. Bilateral thoracentesis performed last week with removal of 900 cc on the left side, 1400 cc on the right. Monitor daily weight, fluid balance, GFR, and electrolytes. Telemetry reveals sinus bradycardia with frequent PACs. No recurrent pauses since 05/17. Beta deneen on hold. Occasional episodes of PAT. Continue to monitor. Continue doxycycline 100 mg BID , as this has been shown to interfere with amyloid fibril formation, and is recommended as an adjunctive treatment. Admission and Anticipated Discharge Date Admission Date: May 14, 2021 Subjective Patient seen and examined the bedside. Edema improving. Denies orthopnea or PND. Telemetry reveals sinus bradycardia with frequent PACs. Several short salvos of paroxysmal atrial tachycardia with heart rate up to 120 bpm recorded. Patient reports occasional palpitations. No lightheadedness, dizziness, syncope, or near syncope. Review of Systems Review of Systems: All systems reviewed & are unremarkable except as noted in Subjective Physical Exam Constitutional: well developed and + ill appearing; no acute distress Respiratory: normal respiratory effort; no respiratory distress Auscultation: + crackles (Bases bilateral); no rales, no rhonchi and no wheezes Cardiovascular: Rate/Rhythm: + abnormal rate and + abnormal rhythm Heart Sounds: normal S1 and normal S2; no murmur Vessels: radial pulses present; no JVD and no carotid bruit Extremities: + edema Gastrointestinal (Abdomen): Inspection/Auscultation: abdomen normal to in spection and normal bowel sounds; abdomen not distended Percussion/Palpation: abdomen soft; abdomen nontender, no guarding and abdomen not rigid Neurologic: CN's II-XI intact bilaterally and moves all extremities; no focal motor deficits Psychiatric: A+Ox3, euthymic affect Results & Data ([facility]) Vital Signs (Past 12 Hours) Vital Signs Temp Pulse Resp BP Pulse Ox 05/20/21 11:44 36.5 C 62 20 108/72 96 05/20/21 07:43 36.9 C 67 18 117/70 91 05/20/21 03:19 36.4 C L 65 16 97/54 L 92
--- NOTE | 2021-05-20 15:23 | Hospitalist Progress Note ---
Date of Service May 20, 2021 Assessment & Plan (1) Acute heart failure with preserved ejection fraction (HFpEF): Plan: Acute on chronic diastolic CHF -Lasix 40mg IV BID. Management per Cardiology -daily weight, I/O -TTE: compared to previous TTE, increased bilateral pleural effusions. Severe conc LVH, EF >70%, LA and RA severely dilated, severe TR, mild MR -Appreciate Pulm input. s/p left thoracentesis 05/16 (900 cc removed) and right thoracentesis 05/17 (1400 cc removed) -Overall improved, still with bilateral feet and ankle swelling (2) Cardiac amyloidosis: Plan: -doxycycline 100mg BID per Cardiology (3) Elevated troponin: Plan: Trend is flat, no chest pain Likely in setting of acute on chronic diastolic CHF (4) Multiple myeloma: Plan: Diagnosed 4-5 years ago, per patient. [place] [facility] [place] V[place]la[place] and [facility] (Dr. Luevano) Current regimen includes daratumumab every 4 weekly subcutaneously (last taken 05/09/21) and pomalidomide to 4 mg once a day for 3 weeks followed by 1 week off (on hold until 05/23/21) Plan: DVT Ppx: SQ heparin Code status: FULL PCP: Edgardo Boyce Dispo: Admitted to PCU Patient can likely be discharged in next 24-48 hours pending continued improvement with diuresis Admission and Anticipated Discharge Date Admission Date: May 14, 2021 Subjective Still with bilateral ankle and feet swelling diuresing well Denies chest pain/shortness of breath Physical Exam Physical Exam: Standing bedside and doing leg exercises using her walker for balance Patient appears in good spirit, pleasant and comfortable Respiratory: breathing comfortably on room air, no wheezing/rhonchi Cardiovascular: bradycardic, no murmurs/rubs/gallops Gastrointestinal (Abdomen): soft, non tender Musculoskeletal: 1+ edema bilateral feet and ankles Neurologic: awake, alert Results & Data Results & Data ([facility]) Vital Signs (Past 12 Hours) Vital Signs Temp Pulse Resp BP Pulse Ox 05/20/21 11:44 36.5 C 62 20 108/72 96 05/20/21 07:43 36.9 C 67 18 117/70 91 Laboratory Results Short CBC 05/20/21 Range/Units 05:34 WBC 3.52 L (4.8-10.8) K/uL Hgb 12.6 (12.0-16.0) g/dL Hct 39.7 (37-47) % Plt Count 163 (130-400) K/uL BMP 05/20/21 05:34 Sodium 136 Potassium 4.1 Chloride 104 Carbon Dioxide 28 BUN 17 Creatinine 0.58 L Glucose 73 Calcium 8.3 L Medications Administered Current Inpatient Medications Aspirin (Aspirin 81 Mg Ectab) 81 mg PO DAILY RYANN Stop: 06/14/21 08:59 Last Admin: 05/20/21 07:25 Dose: 81 mg Documented by: Cyanocobalamin (Cyanocobalamin 500 Mcg Tablet (Vitamin B-12)) 1,000 mcg PO DAILY RYANN Stop: 06/14/21 08:59 Last Admin: 05/20/21 07:24 Dose: 1,000 mcg Documented by: Enoxaparin Sodium (Enoxaparin Inj 40 Mg/0.4 Ml Syr) 40 mg SQ QD@1700 RYANN Stop: 06/16/21 16:59 Last Admin: 05/19/21 16:50 Dose: 40 mg Documented by: Furosemide (Furosemide 40 Mg/4 Ml Vial) 40 mg IV BID17 RYANN Stop: 06/17/21 14:59 Last Admin: 05/20/21 07:29 Dose: 40 mg Documented by: Ondansetron HCl (Ondansetron Inj 2 Mg/Ml 2 Ml Vial) 4 mg IV Q6H PRN PRN Reason: Nausea Stop: 06/13/21 23:05 Pantoprazole Sodium (Pantoprazole 40 Mg Tab) 40 mg PO DAILY PRN PRN Reason: HEARTBURN/INDIGESTION Stop: 06/14/21 08:59 Polyethylene Glycol (Polyethylene (Miralax) 17 Gm Pack) 17 gm PO DAILY PRN PRN Reason: Constipation Stop: 06/13/21 23:05 Potassium Chloride (Potassium Chloride Crtab 20 Meq Tabcr) 20 meq PO BID RYANN Stop: 06/14/21 08:59 Last Admin: 05/20/21 07:29 Dose: 20 meq Documented by: Vitamin D (Cholecalciferol 1,000 Units 25 Mcg Tab) 1,000 units PO DAILY RYANN Stop: 06/14/21 08:59 Last Admin: 05/20/21 07:24 Dose: 1,000 units Documented by:
[2021-05-20] MEDS: ENOXAPARIN INJ 40 MG/0.4 ML SYR SQ SCH (18:17)
[2021-05-21 06:33] LABS: BUN Creatinine Ratio 23.3 (10-20); Calcium 8.3 mg/dl (8.5-10.1); Est GFR (African American) 104.1 ml/min; Est GFR (Non-African American) 89.8 ml/min; Magnesium 1.9 mg/dl (1.7-2.4); Potassium 3.9 mmol/L (3.5-5.1)
[2021-05-21] MEDS: ASPIRIN 81 MG ECTAB PO SCH (08:49)
[2021-05-21] MEDS: CYANOCOBALAMIN (B-12) 500 MCG TABLET PO SCH (08:50)
[2021-05-21] MEDS: CHOLECALCIFEROL 1,000 UNITS 25 MCG TAB PO SCH (08:50)
[2021-05-21] MEDS: POTASSIUM CHLORIDE CRTAB 20 MEQ TABCR PO SCH ×2 (08:53→20:26)
[2021-05-21] MEDS: FUROSEMIDE 40 MG/4 ML VIAL IV SCH ×2 (08:53→16:57)
--- NOTE | 2021-05-21 16:52 | Cardiology Progress Note ---
Date of Service May 21, 2021 Assessment & Plan (1) Acute heart failure with preserved ejection fraction (HFpEF): (2) Cardiac amyloidosis: (3) Pleural effusion: (4) Sinus bradycardia: Plan: Edema/volume status improving. Renal function remained stable. Continue IV furosemide 40 mg twice daily. Compression stockings daily. Bilateral thoracentesis performed last week with removal of 900 cc on the left side, 1400 cc on the right. Monitor daily weight, fluid balance, GFR, and electrolytes. Telemetry reveals sinus bradycardia, frequent PACs, and occasional salvos of paroxysmal atrial tachycardia. No recurrent pauses since 05/17. Beta deneen on hold. Continue to monitor. Restart doxycycline 100 mg BID , as this has been shown to interfere with amyloid fibril formation, and is recommended as an adjunctive treatment. Admission and Anticipated Discharge Date Admission Date: May 14, 2021 Subjective Patient seen examined the bedside. Weight is down more than 1 kg. Her urine output has not been accurately measured. Notes increased urination today after her a.m. dose of furosemide. Denies chest pain or shortness of breath at rest. Telemetry reveals sinus rhythm with frequent PACs, sinus bradycardia, as well as occasional salvos of paroxysmal atrial tachycardia. The frequency of atrial tachycardia appears to have increased this afternoon however has settled down over the past 2 hours. Her palpitations are minimal. No lightheadedness or dizziness. Beta-deneen discontinued during hospitalization due to asymptomatic 3-second pause during sleep. Review of Systems Review of Systems: All systems reviewed & are unremarkable except as noted in Subjective Physical Exam Constitutional: well developed and + ill appearing; no acute distress Respiratory: normal respiratory effort; no respiratory distress Auscultation: + crackles (Bases bilateral); no rales, no rhonchi and no wheezes Cardiovascular: Rate/Rhythm: + abnormal rate and + abnormal rhythm Heart Sounds: normal S1 and normal S2; no murmur Vessels: radial pulses present; no JVD and no carotid bruit Extremities: + edema Gastrointestinal (Abdomen): Inspection/Auscultation: abdomen normal to inspection and normal bowel sounds; abdomen not distended Percussion/Palpation: abdomen soft; abdomen nontender, no guarding and abdomen not rigid Neurologic: CN's II-XI intact bilaterally and moves all extremities; no focal motor deficits Psychiatric: A+Ox3, euthymic affect Results [facility]) Vital Signs (Past 12 Hours) Vital Signs Temp Pulse Pulse Resp BP BP Pulse Ox 05/21/21 16:40 36.4 C L 72 18 101/65 95 05/21/21 16:02 67 05/21/21 11:26 36.7 C 66 16 91/59 L 94 05/21/21 10:59 60 05/21/21 08:31 36.6 C 71 17 95/64 L 95
[2021-05-21] MEDS: ENOXAPARIN INJ 40 MG/0.4 ML SYR SQ SCH (16:54)
--- NOTE | 2021-05-21 20:06 | Hospitalist Progress Note ---
Date of Service May 21, 2021 Assessment & Plan (1) Cardiac amyloidosis: (2) Pleural effusion: Plan: (1) Acute on chronic heart failure with preserved ejection fraction (HFpEF): -Lasix 40mg IV BID. Compression stockings daily. Management per Cardiology -Beta-deneen discontinued per Card during hospitalization due to asymptomatic 3-second pause during sleep. -daily weight, I/O -TTE: compared to previous TTE, increased bilateral pleural effusions. Severe conc LVH, EF >70%, LA and RA severely dilated, severe TR, mild MR -Appreciate Pulm input. s/p left thoracentesis 05/16 (900 cc removed) and right thoracentesis 05/17 (1400 cc removed) -Overall improved, still with bilateral feet and ankle swelling (2) Cardiac amyloidosis: Plan: -doxycycline 100mg BID per Cardiology (3) Elevated troponin: Plan: Trend is flat, no chest pain Likely in setting of acute on chronic diastolic CHF (4) Multiple myeloma: Plan: Diagnosed 4-5 years ago, per patient. Follows with [facility] [place] [facility] (Dr. Villela) and [facility]ematology (Dr. Luevano) Current regimen includes daratumumab every 4 weekly subcutaneously (last taken 05/09/21) and pomalidomide to 4 mg once a day for 3 weeks followed by 1 week off (on hold until 05/23/21) DVT Ppx: SQ heparin Code status: FULL PCP: Edgardo Boyce Dispo: Admitted to [facility] [place] in next 1-2 days w/ card recs. Admission and Anticipated Discharge Date Admission Date: May 14, 2021 Subjective Patient seen and examined at bedside for acute on chronic heart failure with preserved ejection fraction on the background of cardiac amyloidosis. Patient sitting up in chair, on room air, NAD, no new acute events overnight. Patient reports eating and moving bowels okay. Patient reports increasing urination. Patient denies any fever/chills/shortness of breath/belly pain/chest pain/palpitation/cough/sore throat/other review of symptoms. Physical Exam Physical Exam: GENERAL: Alert and oriented x3. NAD, on RA. HEENT: No pallor, no icterus. Pupils equal, round and reactive to light. Oral mucosa moist. NECK: No JVD, no neck masses. HEART: S1 and S2 heard. Regular rate and rhythm. No murmur, no gallop. RESPIRATORY SYSTEM: Normal AP diameter. No accessory muscle use. No wheezing, b/b crackles. ABDOMEN: Soft, bowel sounds present, nontender, no distention. CENTRAL NERVOUS SYSTEM: No facial droop. Speech is clear. Obeys simple commands. Moves extremities. EXTREMITIES: 2+ BLE edema, no erythema seen. Results & Data Results & Data ([facility]) Vital Signs (Past 12 Hours) Vital Signs Temp Pulse Pulse Resp BP BP Pulse Ox 05/21/21 16:40 36.4 C L 72 18 101/65 95 05/21/21 16:02 67 05/21/21 11:26 36.7 C 66 16 91/59 L 94 05/21/21 10:59 60 05/21/21 08:31 36.6 C 71 17 95/64 L 95
[2021-05-21] MEDS: DOXYCYCLINE HYCLATE 100 MG CAP PO SCH (20:27)
[2021-05-22 06:56] LABS: BUN Creatinine Ratio 24.1 (10-20); Calcium 8.2 mg/dl (8.5-10.1); Creatinine Clr Calc Pharmacy 75.6 ml/min; Est GFR (African American) 107.7 ml/min; Potassium 3.8 mmol/L (3.5-5.1)
[2021-05-22] MEDS: CYANOCOBALAMIN (B-12) 500 MCG TABLET PO SCH (07:39)
[2021-05-22] MEDS: ASPIRIN 81 MG ECTAB PO SCH (07:39)
[2021-05-22] MEDS: DOXYCYCLINE HYCLATE 100 MG CAP PO SCH (07:39)
[2021-05-22] MEDS: CHOLECALCIFEROL 1,000 UNITS 25 MCG TAB PO SCH (07:40)
[2021-05-22] MEDS: POTASSIUM CHLORIDE CRTAB 20 MEQ TABCR PO SCH (07:43)
[2021-05-22] MEDS: FUROSEMIDE 40 MG/4 ML VIAL IV SCH (07:44)
--- NOTE | 2021-05-22 13:59 | Cardiology Progress Note ---
Date of Service May 22, 2021 Assessment & Plan (1) Acute heart failure with preserved ejection fraction (HFpEF): (2) Cardiac amyloidosis: (3) Pleural effusion: (4) Sinus bradycardia: (5) Paroxysmal atrial tachycardia: Plan: Discontinue intravenous furosemide. Restart oral furosemide 80 mg daily. Renal function remained stable. Compression stockings daily. Bilateral thoracentesis performed last week with removal of 900 cc on the left side, 1400 cc on the right. Monitor daily weight, fluid balance, GFR, and electrolytes. Telemetry reveals sinus bradycardia, frequent PACs, and occasional salvos of paroxysmal atrial tachycardia. No recurrent pauses since 05/17. Continue to hold the beta-deneen. I would not recommend restarting at this time due to cardiac amyloidosis. Continue doxycycline 100 mg BID , as this has been shown to interfere with a myloid fibril formation, and is recommended as an adjunctive treatment. Patient may be discharged home from a cardiovascular perspective. I will arrange for 1 week cardiology follow-up at the [facility]. Thank you for allow me to participate in the care of your patient. Admission and Anticipated Discharge Date Admission Date: May 14, 2021 Subjective Patient seen and examined the bedside. Feeling better today. Edema has nearly resolved. Wearing compression stockings. No orthopnea or PND. Ambulating in her room and able to dress and wash herself in the a.m. without significant dyspnea. Occasional palpitations unchanged. No lightheadedness, or dizziness. Beta-deneen remains on hold. Doxycycline restarted yesterday. Telemetry reveals sinus bradycardia with PACs. Occasional salvos of paroxysmal atrial tachycardia noted. Review of Systems Review of Systems: All systems reviewed & are unremarkable except as noted in Subjective Physical Exam Constitutional: well developed and + ill appearing; no acute distress Respiratory: normal respiratory effort; no respiratory distress Auscultation: + crackles (Bases bilateral); no rales, no rhonchi and no wheezes Cardiovascular: Rate/Rhythm: + abnormal rate and + abnormal rhythm Heart Sounds: normal S1 and normal S2; no murmur Vessels: radial pulses present; no JVD and no carotid bruit Extremities: + edema Gastrointestinal (Abdomen): Inspection/Auscultation: abdomen normal to inspection and normal bowel sounds; abdomen not distended Percussion/Palpation: abdomen soft; abdomen nontender, no guarding and abdomen not rigid Neurologic: CN's II-XI intact bilaterally and moves all extremities; no focal motor deficits Psychiatric: A+Ox3, euthymic affect Results & Data ([place]) Vital Signs (Past 12 Hours) Vital Signs Temp Pulse Pulse Resp BP Pulse Ox 05/22/21 12:00 36.4 C L 79 18 124/69 97 05/22/21 08:00 36.4 C L 66 97 H 100/60 05/22/21 06:30 72 05/22/21 04:16 66 05/22/21 03:09 36.7 C 71 18 103/65 92
--- NOTE | 2021-05-22 15:04 | Discharge Summary ---
Date of Service May 22, 2021 Admission HPI Per Admitting Provider This is a 75yo F with a PMH of chronic diastolic congestive heart failure, cardiac amyloidosis, history of NSVT, multiple myeloma and other medical problems listed below who presents from cardiology clinic with volume overload. Endorses BLE edema with 10-15 lb weight gain, SOB, orthopnea, PND and lightheadedness with positional changes. Has been taking Lasix 40mg which was increased to 80mg daily 3-4 weeks ago but has not seen improvement. No F/C, chest pain, palpitations, N/V, abdominal pain, dysuria, diarrhea or constipation. Patient has history of kappa light chain AL cardiac amyloidosis and follows with [facility] (Dr. Villela) and [facility] (Dr. Luevano). Nurse Assessor is Dr. Molina, who evaluated patient in ED. As per recent [facility] onc follow-up visit on 05/02/2021, patient was started on daratumumab every 4 weekly subcutaneously (last taken 05/09/21) and pomalidomide to 4 mg once a day for 3 weeks followed by 1 week off (on hold until 05/23/21). Patient has noted increased swelling since resuming pomalidomide. Admission Exam Per Admitting Provider Vitals signs as noted above General Appearance: Thin, chronically appearing, no apparent distress Head: normocephalic, Atraumatic Eyes: normal inspection, EOMI Neck: supple, Trachea midline Respiratory/Chest: Normal breath sounds, CTA, No accessory muscle use Cardiovascular: Irregularly irregular, No murmur Abdomen/GI:Soft, Non tender, Bowel sounds present, mild distention Extremities/Musculoskeletal:normal inspection, 2-2+ B/L LE edema Neurologic/Psych:AAOX3, grossly no focal neurological deficits Skin: normal color, warm Principal Diagnosis Acute on chronic heart failure with preserved ejection fraction Cardiac amyloidosis Discharge Exam GENERAL: Alert and oriented x3. NAD, on RA. HEENT: No pallor, no icterus. Pupils equal, round and reactive to light. Oral mucosa moist. NECK: No JVD, no neck masses. HEART: S1 and S2 heard. Regular rate and rhythm. No murmur, no gallop. RESPIRATORY SYSTEM: Normal AP diameter. No accessory muscle use. No wheezing, no crackles. ABDOMEN: Soft, bowel sounds present, nontender, no distention. CENTRAL NERVOUS SYSTEM: No facial droop. Speech is clear. Obeys simple commands. Moves extremities. EXTREMITIES: trace to 1+ BLE edema, no erythema seen. Discharge Data Allergies Allergy/AdvReac Type Severity Reaction Status Date / Time No Known Allergies Allergy Unknown ` Verified 05/14/21 18:29 Consultations 05/14/21 18:22 ED Decision to Admit Stat 05/14/21 19:25 Consult Cardiology Routine 05/15/21 16:21 Consult Pulmonology Routine Hospital Course (1) Cardiac amyloidosis: (2) Pleural effusion: 75-year-old lady with history of amyloidosis was being managed for the following while in hospital: (1) Acute on chronic heart failure with preserved ejection fraction (HFpEF): -Lasix 40mg IV BID --> 05/22 restarted home dose of Lasix 80 mg daily. Compression stockings daily. Management per Cardiology -Beta-deneen discontinued per Card during hospitalization due to asymptomatic 3-second pause during sleep and also due to history of Cardiac amyloidosis. -Fluid restriction to 1.8 L/day, low-sodium diet. -TTE: compared to previous TTE, increased bilateral pleural effusions. Severe conc LVH, EF >70%, LA and RA severely dilated, severe TR, mild MR -Appreciate Pulm input. s/p left thoracentesis 05/16 (900 cc removed) and right thoracentesis 05/17 (1400 cc removed) -Overall improved, to follow-up with PCP as an outpatient and cardiology as an outpatient upon discharge. (2) Cardiac amyloidosis: Plan: -doxycycline 100mg BID per Cardiology (3) Elevated troponin: Plan: Trend is flat, no chest pain Likely in setting of acute on chronic diastolic CHF (4) Multiple myeloma: Plan: Diagnosed 4-5 years ago, per patient. Follows with [facility] (Dr. Villela) and [facility] (Dr. Luevano) Current regimen includes daratumumab every 4 weekly subcutaneously (last taken 05/09/21) and pomalidomide to 4 mg once a day for 3 weeks followed by 1 week off (on hold until 05/23/21) Code status: FULL PCP: S [place] Patient being discharged to home with following instruction at the point of discharge: Follow-up with your primary care physician within a week time. Follow-up with your cardiology in a week time. Get your blood work BMP done in a week time. Cardiology evaluated for your acute on chronic heart failure and recommended continuing Lasix 80 mg daily. Compression stockings daily. You have been started on doxycycline 100 mg twice a day by cardiology for your history of amyloidosis. Your metoprolol has been stopped this admission due to concerns of recurrent pauses in telemetry and due to cardiac amyloidosis. Fluid restriction of 1.8 L per 24 hours and low-sodium diet [2 g]. Take your medications as prescribed. Total Time Total Time Spent Total Time Spent (In Minutes): 40 Discharge Plan Discharge Items Patient Disposition: Home - Self-Care Reason For Visit: ACUTE DECOMPENSATED HEART FAILURE Discharge Diagnosis: Acute on chronic heart failure with preserved ejection fraction Cardiac amyloidosis Activity: Resume your previous activity Non-emergency contact: Primary Care Provider Call non-emergency contact if: you have any medication questions, your symptoms worsen and your temperature is above 101 Follow-up/Referrals: Rosendo Boyce, [Primary Care Provider] - (Date & Time 05/25/2021 8:40 AM Provider Navjot Estrella III, MD Department [facility] ) Olga Troy PA-C [Physician Psychiatric Aides Teacher] - (Date & Time 05/29/2021 11:30 AM Provider Olga Troy PA-C Department Cardiology, [facility] ) Diet: Heart Healthy and Low Sodium (2gm) Fluids: 1800ml (7 cups) Addtl Attending Provider Instructions: Follow-up with your primary care physician within a week time. Follow-up with your cardiology in a week time. Get your blood work BMP done in a week time. Cardiology evaluated for your acute on chronic heart failure and recommended continuing Lasix 80 mg daily. Compression stockings daily. You have been started on doxycycline 100 mg twice a day by cardiology for your history of amyloidosis. Your metoprolol has been stopped this admission due to concerns of recurrent pauses in telemetry and due to cardiac amyloidosis. Fluid restriction of 1.8 L per 24 hours and low-sodium diet [2 g]. Take your medications as prescribed. Pending Studies at Discharge: No Stand-Alone Forms: My [employer], Smoking Cessation Medications and DC Order Prescriptions: New doxycycline hyclate 100 mg Capsule 100 mg PO BID Qty: 60 RF: 0 Continued ondansetron HCl 8 mg tablet 8 mg PO Q8H PRN (Reason: Nausea) RF: 0 aspirin 81 mg Tablet,Delayed Release (Dr/Ec) 81 mg PO DAILY RF: 0 furosemide 40 mg tablet 80 mg PO DAILY RF: 0 cyanocobalamin (vitamin B-12) [Vitamin B-12] 1,000 mcg Tablet 1,000 mcg PO DAILY RF: 0 potassium chloride 20 mEq tablet,ER particles/crystals 20 meq PO DAILY RF: 0 cholecalciferol (vitamin D3) [Vitamin D3] 25 mcg (1,000 unit) Capsule 25 mcg PO DAILY RF: 0 Juice Plus Liquid 1 ea PO DAILY RF: 0 pomalidomide 2 mg Capsule 2 mg PO DIRECTED RF: 0 omeprazole 20 mg Tablet,Delayed Release (Dr/Ec) 20 mg PO DAILY PRN (Reason: HEARTBURN/INDIGESTION) RF: 0 Discontinued metoprolol succinate 25 mg tablet extended release 24 hr 12.5 mg PO DAILY RF: 0 Discharge Orders: Discharge Order (Routine); Ordered 05/22/21 Ordered By: Héctor Castillo Admission Data Admit Date/Time: 05/14/21 18:38 Attending Provider: Héctor Castillo Admit Provider: Ward Cortes Primary Care Provider: Rosendo Boyce Other Providers: Garrett Molina ; Ward Cortes ; Jv Granados
== END 2021-05-22 17:02 | disposition home or self-care (01) | DRG 292 ==
LOC: ED 14:44 → EDINP 18:38 → SUATTDRO 18:38 → EDINP 05-15 23:08 → 2S 05-18 18:02

== ENCOUNTER 2021-10-18 10:03 | Inpatient (IN) ==
[2021-10-18] MEDS ORDERED: SODIUM CHLORIDE 0.9% 1000ML 1,000 ML IV SCH (10:45)
--- NOTE | 2021-10-18 11:01 | XRay Report ---
XR chest 1V portable HISTORY: SEPSIS COMPARISON: Chest 05/17/2021. FINDINGS: No pneumothorax. Small bilateral pleural effusions and bibasilar densities are again noted. This is slightly progressed on the left. The heart remains enlarged. Is there is diffuse interstitia l thickening, unchanged as compared recent chronic interstitial change or a superimposed pulmonary ed jose. IMPRESSION: 1. Small bilateral pleural effusions and bibasilar densities. This has progressed on the left. 2. Diffuse interstitial thickening. 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 ACT 112: Negative or not required by law. Electronically signed by: Markie Silva M.D. 10/18/2021 11:00 AM
--- NOTE | 2021-10-18 11:09 | Emergency Department Note ---
History of Present Illness General Chief complaint: Referred by Doctor Stated complaint: REFERRED BY DR Bazan Seen by Provider: 10/18/21 10:36 History of Present Illness 76-year-old female presents to the ED with a chief complaint of nausea, dry heaves, weakness and tiredness as well as some shortness of breath. She also reports decreased appetite for couple of weeks. She is not eating well or drinking water much. She has a history of multiple myeloma which is nearly in its completion with regards to treatment. She states that nausea medication that she has at home does not help. She does report that her stomach feels full. She reports some increased shortness of breath in the past 24 hours. She does have a cough mainly which she feels is some postnasal drip drainage in the morning that looks yellowish to orange in color. No fevers. Home Medications Medication Instructions Recorded Confirmed Type cholecalciferol (vitamin D3) 25 25 mcg PO DAILY 05/14/21 10/18/21 History mcg (1,000 unit) capsule (Vitamin D3) cyanocobalamin (vitamin B-12) 1,000 mcg PO DAILY 05/14/21 10/18/21 History 1,000 mcg tablet (Vitamin B-12) furosemide 40 mg tablet 120 mg PO QAM 05/14/21 10/18/21 History omeprazole 20 mg tablet,delayed 20 mg PO QAM 05/14/21 10/18/21 History release potassium chloride 20 mEq See Rx Instructions .Route .COMPLEX 05/14/21 10/18/21 History tablet,extended release(part/cryst) doxycycline hyclate 100 mg capsule 100 mg PO BID #60 caps 05/22/21 10/18/21 Rx acyclovir 400 mg tablet 400 mg PO AMHS 10/18/21 10/18/21 History dexamethasone 4 mg tablet 10 mg PO WK 10/18/21 10/18/21 History escitalopram oxalate 10 mg tablet 10 mg PO QAM 10/18/21 10/18/21 History metolazone 2.5 mg tablet 2.5 mg PO WK 10/18/21 10/18/21 History prochlorperazine maleate 10 mg 10 mg PO Q6 PRN Nausea 10/18/21 10/18/21 History tablet spironolactone 25 mg tablet 25 mg PO QAM 10/18/21 10/18/21 History Allergies Allergy/AdvReac Type Severity Reaction Status Date / Time No Known Allergies Allergy Unknown ` Verified 10/18/21 12:27 Past Med/Surg History Medical History Cardiac amyloidosis Chronic diastolic heart failure GI bleed Multiple myeloma Surgical History History of colonoscopy History of tubal ligation Family History Father , 50s Stroke Mother , 90 Coronary heart disease Social History Smoking Status: Never smoker Second Hand Exposure: No; Hx Alcohol Use: No Hx Substance Use: No Preferred Language: Setswana 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: Effective Amf Mechanic Required: No Beliefs That Will Affect Care: None marital status: Current Living Situation: Spouse Current Living Situation Comment: with Feels Safe at Home: Yes Assistive Devices: Walker Review of Systems A total of 10 systems reviewed and were otherwise negative Physical Exam Vital Signs Vital Signs - 24 hr 10/18/21 10:12 10/18/21 10:55 10/18/21 10:57 Temperature 36.5 C Temperature Source Oral Pulse Rate 74 Pulse Rate [Left Finger] 64 Pulse Rhythm Pulse Rhythm [Left Finger] Pulse Strength [Left Finger] Normal Respiratory Rate 18 18 19 Respiratory Effort / Characteristics Non-Labored Spontaneous Respiratory Depth Normal Respiratory Pattern Blood Pressure 83/54 L Blood Pressure [Right Arm] 106/57 L Blood Pressure Mean 63 Blood Pressure Mean [Right Arm] 73 Blood Pressure Position [Right Arm] Lying Pulse Oximetry 89 L 96 96 Oxygen Delivery Method Room Air Nasal Cannula Nasal Cannula Oxygen Flow Rate 2 2 Sepsis Recent Fever Within 48 Hours No Sepsis New/Unexplained Change in Mental Status No Sepsis Action Taken by Nursing No Action Required 10/18/21 11:27 10/18/21 11:27 10/18/21 11:27 Temperature Temperature Source Pulse Rate 63 Pulse Rate [Left Finger] 65 Pulse Rhythm Regular Pulse Rhythm [Left Finger] Pulse Strength [Left Finger] Normal Respiratory Rate 18 18 18 Respiratory Effort / Characteristics Non-Labored Spontaneous Non-Labored Spontaneous Respiratory Depth Normal Respiratory Pattern Regular Blood Pressure Blood Pressure [Right Arm] 114/58 L Blood Pressure Mean Blood Pressure Mean [Right Arm] 76 Blood Pressure Position [Right Arm] Lying Pulse Oximetry 95 95 94 Oxygen Delivery Method Nasal Cannula Nasal Cannula Room Air Oxygen Flow Rate 2 2 Sepsis Recent Fever Within 48 Hours Sepsis New/Unexplained Change in Mental Status Sepsis Action Taken by Nursing 10/18/21 11:30 10/18/21 11:30 10/18/21 12:00 Temperature Temperature Source Pulse Rate Pulse Rate [Left Finger] 66 Pulse Rhythm Pulse Rhythm [Left Finger] Regular Pulse Strength [Left Finger] Normal Respiratory Rate 19 19 Respiratory Effort / Characteristics Non-Labored Spontaneous Non-Labored Spontaneous Non-Labored Spontaneous Respiratory Depth Normal Respiratory Pattern Regular Blood Pressure Blood Pressure [Right Arm] Blood Pressure Mean Blood Pressure Mean [Right Arm] Blood Pressure Position [Right Arm] Pulse Oximetry 94 94 95 Oxygen Delivery Method Nasal Cannula Nasal Cannula Nasal Cannula Oxygen Flow Rate 2 2 2 Sepsis Recent Fever Within 48 Hours Sepsis New/Unexplained Change in Mental Status Sepsis Action Taken by Nursing 10/18/21 12:04 10/18/21 12:30 10/18/21 13:00 Temperature Temperature Source Pulse Rate Pulse Rate [Left Finger] 63 Pulse Rhythm Pulse Rhythm [Left Finger] Regular Pulse Strength [Left Finger] Normal Respiratory Rate 18 18 18 Respiratory Effort / Characteristics Non-Labored Spontaneous Non-Labored Spontaneous Non-Labored Spontaneous Respiratory Depth Normal Respiratory Pattern Regular Blood Pressure Blood Pressure [Right Arm] Blood Pressure Mean Blood Pressure Mean [Right Arm] Blood Pressure Position [Right Arm] Pulse Oximetry 99 99 94 Oxygen Delivery Method Room Air Room Air Nasal Cannula Oxygen Flow Rate 2 Sepsis Recent Fever Within 48 Hours Sepsis New/Unexplained Change in Mental Status Sepsis Action Taken by Nursing 10/18/21 13:30 10/18/21 13:29 10/18/21 14:00 Temperature Temperature Source Pulse Rate Pulse Rate [Left Finger] 60 Pulse Rhythm Pulse Rhythm [Left Finger] Pulse Strength [Left Finger] Respiratory Rate 18 18 18 Respiratory Effort / Characteristics Non-Labored Spontaneous Non-Labored Spontaneous Respiratory Depth Respiratory Pattern Blood Pressure Blood Pressure [Right Arm] 91/53 L Blood Pressure Mean Blood Pressure Mean [Right Arm] 65 Blood Pressure Position [Right Arm] Pulse Oximetry 98 97 96 Oxygen Delivery Method Nasal Cannula Nasal Cannula Nasal Cannula Oxygen Flow Rate 2 2 Sepsis Recent Fever Within 48 Hours Sepsis New/Unexplained Change in Mental Status Sepsis Action Taken by Nursing 10/18/21 14:18 Temperature Temperature Source Pulse Rate Pulse Rate [Left Finger] 68 Pulse Rhythm Pulse Rhythm [Left Finger] Regular Pulse Strength [Left Finger] Normal Respiratory Rate 18 Respiratory Effort / Characteristics Non-Labored Spontaneous Respiratory Depth Normal Respiratory Pattern Regular Blood Pressure Blood Pressure [Right Arm] 97/53 L Blood Pressure Mean Blood Pressure Mean [Right Arm] 67 Blood Pressure Position [Right Arm] Lying Pulse Oximetry 96 Oxygen Delivery Method Nasal Cannula Oxygen Flow Rate 2 Sepsis Recent Fever Within 48 Hours Sepsis New/Unexplained Change in Mental Status Sepsis Action Taken by Nursing CONSTITUTIONAL/VITAL SIGNS: Reviewed / noted above. GENERAL: Non-toxic in appearance. INTEGUMENTARY: Warm, dry, and [place]. HEAD: Normocephalic. EYES: without scleral icterus or trauma. ENT/OROPHARYNX: clear and moist. LYMPHADENOPATHY/NECK: Is supple without lymphadenopathy or meningismus. RESPIRATORY: Clear to auscultation bilaterally. No increased work of breathing. CARDIOVASCULAR: Regular rate and rhythm. GI/ABDOMEN: Soft and diffusely tender more in the upper abdomen. No organomegaly or pulsatile mass. EXTREMITIES: Warm and well perfused. Some pedal edema although she reports is better than baseline. NEUROLOGICAL: Intact without focal deficits. PSYCHIATRIC: normal affect. MUSCULOSKELETAL: Normally developed with good muscle tone. TRIAGE NURSING DOCUMENTATION REVIEWED. Course Administered Medications Discontinued Medications Sodium Chloride (Nss 1000ml) 1,000 mls @ 999 mls/hr IV .[id number] RYANN Stop: 10/18/21 11:45 Last Infusion: 10/18/21 13:30 Dose: 0 mls/hr Documented By: Admin: 10/18/21 11:30 Dose: 999 mls/hr Documented By: JOSH Ioversol (Optiray 320 125ml) 120 ml IV ONCE ONE Stop: 10/18/21 13:02 Last Admin: 10/18/21 13:01 Dose: 120 ml Documented By: PETRA Medical Decision Making Differential Diagnosis Differential includes acute coronary syndrome, myocardial infarction, CVA, TIA, anemia, infection, pneumonia, UTI, pyelonephritis, poor nutrition, dehydration, electrolyte disturbance,hypoglycemia. Medical Records Attestation: I reviewed the patient's medical records. Home Medications Current Medication List: was personally reviewed by me Laboratory Data Attestation: I reviewed the patient's lab results. Result diagrams: 10/18/21 11:18 10/18/21 11:18 Lab Results 10/18/21 10/18/21 10/18/21 Range/Units 11:00 11:18 11:18 WBC 5.12 (4.8-10.8) K/ul RBC 3.98 (3.93-5.22) M/uL Hgb 12.6 (12.0-16.0) g/dl Hct 37.6 (34.1-44.9) % MCV 94.5 (80.0-100.0) fL MCH 31.7 (25.0-34.0) pg MCHC 33.5 (32.0-36.0) g/dL RDW Std Deviation 58.1 H (36.4-46.3) fL RDW Coeff of Nasir 17.6 H (11.5-14.5) % Plt Count 135 (130-400) K/uL MPV 12.7 H (9.4-12.3) fL Immature Gran % (Auto) 0.4 % Neut % (Auto) 94.9 % Lymph % (Auto) 1.6 % [place] % (Auto) 3.1 % Eos % (Auto) 0.0 % Baso % (Auto) 0.0 % Neut # (Auto) 4.86 (1.4-6.5) K/uL Lymph # (Auto) 0.08 L (1.2-3.4) K/uL [place] # (Auto) 0.16 L (0.24-0.82) K/uL Eos # (Auto) 0.00 (0-0.50) K/uL Baso # (Auto) 0.00 (0-0.2) K/uL Immature Gran # (Auto) 0.02 (0.00-0.02) K/uL Tear Drop Cells 1+ Ovalocytes 1+ Echinocytes 1+ PT 11.8 (9.0-12.0) Seconds INR 1.1 (0.9-1.1) APTT 24.8 (21.0-31.0) Seconds PTT Ratio 0.9 Sodium (136-145) mmol/L Potassium (3.5-5.1) mmol/L Chloride (98-107) mmol/L Carbon Dioxide (21-32) mmol/L Anion Gap (3-11) BUN (6-23) mg/dl Creatinine (0.6-1.2) mg/dl Est Cr Clr Drug Dosing ml/min Est GFR ( Amer) ml/min Est GFR (Non-Af Amer) ml/min BUN/Creatinine Ratio (10-20) Glucose (70-99(Fasting)) mg/dl Lactate (0.4-2.0) mmol/L Calcium (8.5-10.1) mg/dl Magnesium (1.7-2.4) mg/dl Total Bilirubin (0.2-1.0) mg/dl AST (13-39) U/L ALT (7-52) U/L Alkaline Phosphatase (34-104) U/L Troponin I High Sens (0-14) pg/ml Total Protein (6.0-8.3) gm/dl Albumin (3.4-5.0) gm/dl Globulin (2.5-4.0) gm/dl Albumin/Globulin Ratio (0.9-2) Urine Color Urine Appearance (Clear) Urine pH (4.5-7.5) Ur Specific [place] (1.000-1.030) Urine Protein (Negative) Urine Glucose (UA) (Negative) Urine Ketones (Negative) Urine Blood (Negative) Urine Nitrite (Negative) Urine Bilirubin (Negative) Urine Urobilinogen (Negative) Ur Leukocyte Esterase (Negative) SARS-CoV-2, RNA, NAAT NEGATIVE (NEGATIVE) 10/18/21 10/18/21 10/18/21 Range/Units 11:18 11:18 11:57 WBC (4.8-10.8) K/ul RBC (3.93-5.22) M/uL Hgb (12.0-16.0) g/dl Hct (34.1-44.9) % MCV (80.0-100.0) fL MCH (25.0-34.0) pg MCHC (32.0-36.0) g/dL RDW Std Deviation (36.4-46.3) fL RDW Coeff of Nasir (11.5-14.5) % Plt Count (130-400) K/uL MPV (9.4-12.3) fL Immature Gran % (Auto) % Neut % (Auto) % Lymph % (Auto) % [place] % (Auto) % Eos % (Auto) % Baso % (Auto) % Neut # (Auto) (1.4-6.5) K/uL Lymph # (Auto) (1.2-3.4) K/uL [place] # (Auto) (0.24-0.82) K/uL Eos # (Auto) (0-0.50) K/uL Baso # (Auto) (0-0.2) K/uL Immature Gran # (Auto) (0.00-0.02) K/uL Tear Drop Cells Ovalocytes Echinocytes PT (9.0-12.0) Seconds INR (0.9-1.1) APTT (21.0-31.0) Seconds PTT Ratio Sodium 136 (136-145) mmol/L Potassium 3.4 L (3.5-5.1) mmol/L Chloride 98 (98-107) mmol/L Carbon Dioxide 30 (21-32) mmol/L Anion Gap 8 (3-11) BUN 17 (6-23) mg/dl Creatinine 0.64 (0.6-1.2) mg/dl Est Cr Clr Drug Dosing 62.8 ml/min Est GFR ( Amer) 101.2 ml/min Est GFR (Non-Af Amer) 87.3 ml/min BUN/Creatinine Ratio 26.6 H (10-20) Glucose 132 H (70-99(Fasting)) mg/dl Lactate 1.4 (0.4-2.0) mmol/L Calcium 8.7 (8.5-10.1) mg/dl Magnesium 1.7 (1.7-2.4) mg/dl Total Bilirubin 1.2 H (0.2-1.0) mg/dl AST 21 (13-39) U/L ALT 15 (7-52) U/L Alkaline Phosphatase 84 (34-104) U/L Troponin I High Sens 113.0 H* (0-14) pg/ml Total Protein 6.7 (6.0-8.3) gm/dl Albumin 3.3 L (3.4-5.0) gm/dl Globulin 3.4 (2.5-4.0) gm/dl Albumin/Globulin Ratio 1.0 (0.9-2) Urine Color Dark Yellow Urine Appearance Clear (Clear) Urine pH 6.0 (4.5-7.5) Ur Specific [place] 1.020 (1.000-1.030) Urine Protein Negative (Negative) Urine Glucose (UA) Negative (Negative) Urine Ketones Negative (Negative) Urine Blood Negative (Negative) Urine Nitrite Negative (Negative) Urine Bilirubin Negative (Negative) Urine Urobilinogen Negative (Negative) Ur Leukocyte Esterase Negative (Negative) SARS-CoV-2, RNA, NAAT (NEGATIVE) Imaging Data Radiologist's Impression: Chest X-Ray 10/18/21 10:39 XR chest 1V portable HISTORY: SEPSIS COMPARISON: Chest 05/17/2021. FINDINGS: No pneumothorax. Small bilateral pleural effusions and bibasilar densities are again noted. This is slightly progressed on the left. The heart remains enlarged. Is there is diffuse interstitial thickening, unchanged as compared recent chronic interstitial change or a superimposed pulmonary edema. IMPRESSION: 1. Small bilateral pleural effusions and bibasilar densities. This has progressed on the left. 2. Diffuse interstitial thickening. This may represent mild pulmonary edema on the background of chronic interstitial change. ACT 112: Negative or not required by law. Electronically signed by: Markie Silva M.D. 10/18/2021 11:00 AM Abdomen/Pelvis CT 10/18/21 10:57 CT SCAN OF THE ABDOMEN AND PELVIS WITH IV CONTRAST CLINICAL HISTORY: Generalized abdominal pain. Nausea and vomiting. Dyspnea. COMPARISON STUDY: PET/CT dated 09/17/2017. TECHNIQUE: Following the IV administration of 120 cc of Optiray 320, CT scan of the abdomen and pelvis is performed from the lung bases to the proximal femora. Images are reviewed in the axial, sagittal, and coronal planes. IV contrast was administered without complication. A dose lowering technique was utilized adhering to the principles of ALARA. FINDINGS: Lung bases: The heart is markedly enlarged and without pericardial effusion. There are moderate pleural effusions with dense bibasilar consolidation. There is a moderate to large hiatal hernia. Liver: The contrast-enhanced liver is enlarged, measuring 20.6 cm in length. Hepatic attenuation is heterogeneous. There is marked dilatation of the IVC and hepatic veins, likely related to cardiac dysfunction. There is no intrahepatic biliary ductal dilatation. The hepatic veins and portal veins are patent. Gallbladder: Gallbladder wall thickening and edema is likely related to periportal edema. There is no CT evidence of acute cholecystitis. Spleen: The spleen is enlarged, measuring 17.5 cm in length. Pancreas: Unremarkable. Adrenal glands: Unremarkable. Kidneys: The contrast enhanced kidneys demonstrate mild cortical atrophy and are without hydronephrosis. The kidneys enhance symmetrically. A 12 mm cyst is noted in the upper pole of left kidney. Additional subcentimeter cortical hypodensities also likely represent cysts but are too small for definitive characterization. Abdominal vasculature: The abdominal aorta is normal in course and caliber noting moderate atherosclerotic calcification. Bowel: There is mild colonic diverticulosis without CT evidence of acute diverticulitis. No bowel obstruction is identified. The appendix is well-visualized and normal. Peritoneum: There is a small volume of abdominopelvic ascites and diffuse mesenteric edema. No intraperitoneal free air is seen. Lymphadenopathy: None. Pelvic viscera: The bladder wall is circumferentially thickened. The uterus is enlarged and heterogeneous suggesting fibroids. No adnexal lesion is seen. Skeletal structures: The skeletal structures are heterogeneously osteopenic. There is mild lumbosacral spondylosis. No lytic or blastic lesions are seen. Soft tissues: There is diffuse body wall edema. IMPRESSION: 1. The bladder wall appears markedly thickened. Correlate with clinical findings and urinalysis for evidence of cystitis. 2. Marked cardiomegaly with evidence of cardiac dysfunction 3. Moderate pleural effusions with dependent consolidation. 4. The liver is enlarged and heterogeneous common with marked dilatation of the IVC and hepatic veins and periportal edema. Correlate clinically for evidence of congestive hepatopathy. 5. Splenomegaly. 6. There is anasarca of the body wall, mesenteric edema, and a small volume of abdominopelvic ascites. 7. Heterogeneous and likely fibroid uterus. 8. Additional findings as above. ACT 112: Negative or not required by law. Electronically signed by: Kashif Rios M.D. 10/18/2021 1:20 PM Chest CTA 10/18/21 10:57 CT angio chest PE protocol CLINICAL HISTORY: sob, n/v TECHNIQUE: Multidetector row helical CT of the chest was performed with angiographic protocol. Coronal and sagittal reformations were obtained. Coronal and sagittal MIPS were obtained from the axial data set and were submitted for review. Automated dose lowering techniques and/or adjustment according to patient size were utilized for this exam. CT DOSE: 530.85 mGy.cm Comparison: Comparison is made to CT chest 03/01/2019 FINDINGS: Lungs and pleura: Large bilateral pleural effusions are seen with associated atelectasis. Smooth interlobular septal thickening is noted Heart and pericardium: There is cardiomegaly without evidence of pericardial effusion. Vessels: No evidence of pulmonary embolism. Mediastinum and braulio: Unremarkable. Chest wall and lower neck: Unremarkable. Abdomen: Unremarkable. Bones: Unremarkable. IMPRESSION: 1. No evidence of pulmonary embolism. 2. Large bilateral pleural effusions with associated atelectasis. 3. Cardiomegaly and possible pulmonary edema. ACT 112: Negative or not required by law. Electronically signed by: Jose Ramon Murcia M.D. 10/18/2021 1:29 PM ECG Data Attestation: I personally reviewed and interpreted this ECG as follows: MDM Narrative 76-year-old female presents to the ED with a chief complaint of decreased appetite, decreased p.o. intake, nausea and dry heaves for the past couple of weeks. She is very weak and tired at this point. She reports some associated shortness of breath that is worsened over the past couple of weeks. She does report a cough that she feels is related to postnasal drip. Her stomach feels full. She has some tenderness to the abdomen on my exam mostly in the upper abdomen. Her vital signs initially she was hypotensive. She is also noted to be hypoxic without oxygen. She does not use home oxygen. CBC and chemistry panel did not show acute process. A COVID test was negative. Lactate was normal. Troponin is elevated at 113. Urine did not show infection. CT scan of the abdomen pelvis as well as chest were performed. There is no PE. There is large bilateral pleural effusions with some atelectasis. Cardiomegaly and possibly some pulmonary edema was also noted. Also noted was the possibility of anasarca, hepatosplenomegaly was also noted. The patient was initially hypotensive. She was given a liter of IV fluid. Aspirin p.o. was ordered. The patient did require 2 L of oxygen to maintain saturations above 88%. Because of the hypoxia and elevated troponin and findings suggesting congestive heart failure, the patient will be admitted to the hospital for further evaluation and care. Impression & Plan Congestive heart failure, Elevated troponin, Weakness, Nausea & vomiting Discharge Plan Visit Data Chief Complaint: Referred by Doctor Stated Complaint: REFERRED BY ED Provider: Neeraj Rios Discharge Problem: Congestive heart failure, Elevated troponin, Weakness, Nausea & vomiting Patient Disposition: Being Evaluated by Hospitalist Forms Stand Alone Forms: My [facility] Prescriptions Prescriptions: No Action furosemide 40 mg tablet 120 mg PO QAM Rx Instructions: take 3 tablets in the morning cyanocobalamin (vitamin B-12) [Vitamin B-12] 1,000 mcg Tablet 1,000 mcg PO DAILY potassium chloride 20 mEq tablet,ER particles/crystals See Rx Instructions .ROUTE .COMPLEX Rx Instructions: take 2 tablets in the morning, 1 in the afternoon,1 tablet in the evening. on the days you take metolazone take 2 tablets in the afternoon. cholecalciferol (vitamin D3) [Vitamin D3] 25 mcg (1,000 unit) Capsule 25 mcg PO DAILY omeprazole 20 mg Tablet,Delayed Release (Dr/Ec) 20 mg PO QAM doxycycline hyclate 100 mg Capsule 100 mg PO BID Qty: 60 0RF escitalopram oxalate 10 mg tablet 10 mg PO QAM acyclovir 400 mg tablet 400 mg PO AMHS dexamethasone 4 mg tablet 10 mg PO WK Rx Instructions: take 2 & 1/2 tablet on with food in the morning spironolactone 25 mg tablet 25 mg PO QAM prochlorperazine maleate 10 mg tablet 10 mg PO Q6 PRN (Reason: Nausea) metolazone 2.5 mg tablet 2.5 mg PO WK Rx Instructions: saturdays Referrals Referrals: Rosendo Boyce DO [Primary Care Provider] -
[2021-10-18 11:43] LABS: Hematocrit (blood only) 37.6 % (34.1-44.9); Hemoglobin 12.6 g/dl (12.0-16.0); Mean Corpuscular Hemoglobin 31.7 pg (25.0-34.0); Mean Corpuscular Hgb Conc 33.5 g/dL (32.0-36.0); Mean Corpuscular Volume 94.5 fL (80.0-100.0); Mean Platelet Volume 12.7 fL (9.4-12.3); Platelet Count 135 K/uL (130-400); RDW Coefficient of Variation 17.6 % (11.5-14.5); RDW Standard Deviation 58.1 fL (36.4-46.3); Red Blood Count 3.98 M/uL (3.93-5.22); White Blood Count 5.12 K/ul (4.8-10.8)
[2021-10-18 11:55] LABS: Albumin Level 3.3 gm/dl (3.4-5.0); BUN Creatinine Ratio 26.6 (10-20); Bilirubin,Total 1.2 mg/dl (0.2-1.0); Calcium 8.7 mg/dl (8.5-10.1); Creatinine Clr Calc Pharmacy 62.8 ml/min; Est GFR (African American) 101.2 ml/min; Est GFR (Non-African American) 87.3 ml/min; Globulin 3.4 gm/dl (2.5-4.0); Magnesium 1.7 mg/dl (1.7-2.4); Potassium 3.4 mmol/L (3.5-5.1); Total Protein 6.7 gm/dl (6.0-8.3)
[2021-10-18 11:59] LABS: INR 1.1 (0.9-1.1); Partial Thromboplastin Ratio 0.9; Partial Thromboplastin Time 24.8 Seconds (21.0-31.0); Prothrombin Time 11.8 Seconds (9.0-12.0)
[2021-10-18 12:15] LABS: Echinocytes 1+; Immature Granulocytes # (auto) 0.02 K/uL (0.00-0.02); Immature Granulocytes % (auto) 0.4 %; Lymphocytes # (auto) 0.08 K/uL (1.2-3.4); Lymphocytes % (auto) 1.6 %; Monocytes # (auto) 0.16 K/uL (0.24-0.82); Monocytes % (auto) 3.1 %; Neutrophils # (auto) 4.86 K/uL (1.4-6.5); Neutrophils % (auto) 94.9 %; Ovalocytes 1+; Tear Drop Cells 1+
[2021-10-18 12:26] LABS: Appearance Urine Clear (Clear); Bilirubin Urine Negative (Negative); Blood Urine Negative (Negative); Color Urine Dark Yellow; Glucose Urine UA Negative (Negative); Ketones Urine Negative (Negative); Leukocyte Esterase Urine Negative (Negative); Nitrite Urine Negative (Negative); Protein Urine Negative (Negative); Urobilinogen Urine Negative (Negative)
[2021-10-18] MEDS ORDERED: OPTIRAY 320 125ml IV ONE (13:01)
--- NOTE | 2021-10-18 13:21 | CT Scan Report ---
CT SCAN OF THE ABDOMEN AND PELVIS WITH IV CONTRAST CLINICAL HISTORY: Generalized abdominal pain. Nausea and vomiting. Dyspnea. COMPARISON STUDY: PET/CT dated 09/17/2017. TECHNIQUE: Following the IV administration of 120 cc of Optiray 320, CT scan of the abdomen and pelv is is performed from the lung bases to the proximal femora. Images are reviewed in the axial, sagitta l, and coronal planes. IV contrast was administered without complication. A dose lowering technique w as utilized adhering to the principles of ALARA. FINDINGS: Lung bases: The heart is markedly enlarged and without pericardial effusion. There are moderate pleur al effusions with dense bibasilar consolidation. There is a moderate to large hiatal hernia. Liver: The contrast-enhanced liver is enlarged, measuring 20.6 cm in length. Hepatic attenuation is h eterogeneous. There is marked dilatation of the IVC and hepatic veins, likely related to cardiac dysf unction. There is no intrahepatic biliary ductal dilatation. The hepatic veins and portal veins are p atent. Gallbladder: Gallbladder wall thickening and edema is likely related to periportal edema. There is no CT evidence of acute cholecystitis. Spleen: The spleen is enlarged, measuring 17.5 cm in length. Pancreas: Unremarkable. Adrenal glands: Unremarkable. Kidneys: The contrast enhanced kidneys demonstrate mild cortical atrophy and are without hydronephros is. The kidneys enhance symmetrically. A 12 mm cyst is noted in the upper pole of left kidney. Additi onal subcentimeter cortical hypodensities also likely represent cysts but are too small for definitiv e characterization. Abdominal vasculature: The abdominal aorta is normal in course and caliber noting moderate atheroscle rotic calcification. Bowel: There is mild colonic diverticulosis without CT evidence of acute diverticulitis. No bowel obs truction is identified. The appendix is well-visualized and normal. Peritoneum: There is a small volume of abdominopelvic ascites and diffuse mesenteric edema. No intrap eritoneal free air is seen. Lymphadenopathy: None. Pelvic viscera: The bladder wall is circumferentially thickened. The uterus is enlarged and heterogen eous suggesting fibroids. No adnexal lesion is seen. Skeletal structures: The skeletal structures are heterogeneously osteopenic. There is mild lumbosacra l spondylosis. No lytic or blastic lesions are seen. Soft tissues: There is diffuse body wall edema. IMPRESSION: 1. The bladder wall appears markedly thickened. Correlate with clinical findings and urinalysis for e vidence of cystitis. 2. Marked cardiomegaly with evidence of cardiac dysfunction 3. Moderate pleural effusions with dependent consolidation. 4. The liver is enlarged and heterogeneous common with marked dilatation of the IVC and hepatic veins and periportal edema. Correlate clinically for evidence of congestive hepatopathy. 5. Splenomegaly. 6. There is anasarca of the body wall, mesenteric edema, and a small volume of abdominopelvic ascites . 7. Heterogeneous and likely fibroid uterus. 8. Additional findings as above. ACT 112: Negative or not required by law. Electronically signed by: Kashif Rios M.D. 10/18/2021 1:20 PM
--- NOTE | 2021-10-18 13:30 | CT Scan Report ---
CT angio chest PE protocol CLINICAL HISTORY: sob, n/v TECHNIQUE: Multidetector row helical CT of the chest was performed with angiographic protocol. Pham l and sagittal reformations were obtained. Coronal and sagittal MIPS were obtained from the axial jerod a set and were submitted for review. Automated dose lowering techniques and/or adjustment according to patient size were utilized for this exam. CT DOSE: 530.85 mGy.cm Comparison: Comparison is made to CT chest 03/01/2019 FINDINGS: Lungs and pleura: Large bilateral pleural effusions are seen with associated atelectasis. Smooth inte rlobular septal thickening is noted Heart and pericardium: There is cardiomegaly without evidence of pericardial effusion. Vessels: No evidence of pulmonary embolism. Mediastinum and braulio: Unremarkable. Chest wall and lower neck: Unremarkable. Abdomen: Unremarkable. Bones: Unremarkable. IMPRESSION: 1. No evidence of pulmonary embolism. 2. Large bilateral pleural effusions with associated atelectasis. 3. Cardiomegaly and possible pulmonary edema. ACT 112: Negative or not required by law. Electronically signed by: Jose Ramon Murcia M.D. 10/18/2021 1:29 PM
[2021-10-18] MEDS ORDERED: ASPIRIN CHEW 324 MG PO STA (14:40)
[2021-10-18] MEDS ORDERED: FAMOTIDINE 10 MG TABLET PO PRN (15:09)
[2021-10-18] MEDS ORDERED: NITROGLYCERIN SL 0.4 MG/TAB TAB SL PRN (15:12)
[2021-10-18] MEDS ORDERED: ACETAMINOPHEN 325 MG TAB PO PRN (15:12)
--- NOTE | 2021-10-18 15:25 | History & Physical Report ---
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 IV diuretic therapy Lasix 40 mg twice a day. Cardiology consultation. I's and O's Daily weights. Echocardiogram. Physical therapy evaluation. Significant and large pleural effusions. May benefit from thoracentesis. Given patient's low blood pressure. (2) Elevated troponin: Plan: Possibly secondary to CHF with no significant chest pain. Trend for now. Cardiology consult. Continue with aspirin. (3) Multiple myeloma: Plan: Patient to follow-up with primary oncologist as an outpatient. (4) Weakness: Plan: Likely multifactorial. We will have physical therapy evaluation. (5) Dyspepsia: Plan: Patient on PPI we will add H2 deneen for now. History of Present Illness Chief Complaint: Worsening shortness of breath with exertional activity Primary Care Provider: Rosendo Boyce DO Patient is a 76-year-old female with a past medical history of CHF amyloidosis, paroxysmal atrial tachycardia, multiple myeloma presenting to the hospital with complaints of worsening shortness of breath with exertional activity as well as weakness and tiredness. Also states that she has been having poor appetite for the last couple of weeks associated with dry heaves. States she is getting chemotherapy for multiple myeloma and she was supposed to have a session today however she went to her oncologist office who recommended patient to presented to the hospital today. Otherwise patient was noted to have significant fluid overload on imaging and found to have likely CHF exacerbation we are called admit the patient for such. States that she does have abdominal discomfort describes it as diffuse vague not relieved with defecation. States she has 1 bowel movement daily that is normally loose. Otherwise patient denies significant chest pain lightheadedness fever chills. States she is does not get significantly short of breath with laying down. States she has some whitish phlegm production in the mornings. 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 Allergies Allergy/AdvReac Type Severity Reaction Status Date / Time No Known Allergies Allergy Unknown ` Verified 10/18/21 12:27 Home Medications Medication Instructions Recorded Confirmed Type cholecalciferol (vitamin D3) 25 25 mcg PO DAILY 05/14/21 10/18/21 History mcg (1,000 unit) capsule (Vitamin D3) cyanocobalamin (vitamin B-12) 1,000 mcg PO DAILY 05/14/21 10/18/21 History 1,000 mcg tablet (Vitamin B-12) furosemide 40 mg tablet 120 mg PO QAM 05/14/21 10/18/21 History omeprazole 20 mg tablet,delayed 20 mg PO QAM 05/14/21 10/18/21 History release potassium chloride 20 mEq See Rx Instructions .Route .COMPLEX 05/14/21 10/18/21 History tablet,extended release(part/cryst) doxycycline hyclate 100 mg capsule 100 mg PO BID #60 caps 05/22/21 10/18/21 Rx acyclovir 400 mg tablet 400 mg PO AMHS 10/18/21 10/18/21 History dexamethasone 4 mg tablet 10 mg PO WK 10/18/21 10/18/21 History escitalopram oxalate 10 mg tablet 10 mg PO QAM 10/18/21 10/18/21 History metolazone 2.5 mg tablet 2.5 mg PO WK 10/18/21 10/18/21 History prochlorperazine maleate 10 mg 10 mg PO Q6 PRN Nausea 10/18/21 10/18/21 History tablet spironolactone 25 mg tablet 25 mg PO QAM 10/18/21 10/18/21 History Past Med/Surg History Medical History Cardiac amyloidosis Chronic diastolic heart failure GI bleed Multiple myeloma Surgical History History of colonoscopy History of tubal ligation Family History Father , 50s Stroke Mother , 90 Coronary heart disease Social History Smoking Status: Never smoker Second Hand Exposure: No; Hx Alcohol Use: No Hx Substance Use: No Preferred Language: Yoruba 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: Effective 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 No significant wheezing noted no rhonchi otherwise appreciated currently. Cardiovascular:RRR, no murmur, Heart Sounds:no murmur. Has +1 bilateral lower extremity edema Gastrointestinal (Abdomen):normal bowel sounds, soft, nontender, no h epatosplenomegaly Musculoskeletal:no cyanosis or clubbing, extremities motor strength 5/5 Skin: no rashes, warm and dry Neurologic: patellar DTR's 2+ bilat, sensation intact and PERRL, EOMI, accommodation nl, no face palsy, no dysarthria Psychiatric: A+Ox3, euthymic affect Genitourinary:Not assessed Lymphatic: no cervical or axillary lymphadenopathy Results & Data Results & Data ([facility]) Vital Signs (Past 12 Hours) Vital Signs Temp Pulse Pulse Resp BP BP Pulse Ox 10/18/21 14:30 18 96 10/18/21 14:18 68 18 97/53 L 96 10/18/21 14:00 18 96 10/18/21 13:29 60 18 91/53 L 97 10/18/21 13:30 18 98 10/18/21 13:00 18 94 10/18/21 12:30 18 99 10/18/21 12:04 63 18 99 10/18/21 12:00 19 95 10/18/21 11:30 66 19 94 10/18/21 11:30 94 10/18/21 11:27 18 94 10/18/21 11:27 65 18 114/58 L 95 10/18/21 11:27 63 18 95 10/18/21 10:57 19 96 10/18/21 10:55 64 18 106/57 L 96 10/18/21 10:12 36.5 C 74 18 83/54 L 89 L O2 Del Method O2 Flow Rate 10/18/21 14:30 Nasal Cannula 2 10/18/21 14:18 Nasal Cannula 2 10/18/21 14:00 Nasal Cannula 10/18/21 13:29 Nasal Cannula 2 10/18/21 13:30 Nasal Cannula 2 10/18/21 13:00 Nasal Cannula 2 10/18/21 12:30 Room Air 10/18/21 12:04 Room Air 10/18/21 12:00 Nasal Cannula 2 10/18/21 11:30 Nasal Cannula 2 10/18/21 11:30 Nasal Cannula 2 10/18/21 11:27 Room Air 10/18/21 11:27 Nasal Cannula 2 10/18/21 11:27 Nasal Cannula 2 10/18/21 10:57 Nasal Cannula 2 10/18/21 10:55 Nasal Cannula 2 10/18/21 10:12 Room Air Laboratory Results Short CBC 10/18/21 Range/Units 11:18 WBC 5.12 (4.8-10.8) K/ul Hgb 12.6 (12.0-16.0) g/dl Hct 37.6 (34.1-44.9) % Plt Count 135 (130-400) K/uL BMP 10/18/21 11:18 Sodium 136 Potassium 3.4 L Chloride 98 Carbon Dioxide 30 BUN 17 Creatinine 0.64 Glucose 132 H Calcium 8.7 Liver Function 10/18/21 Range/Units 11:18 Total Bilirubin 1.2 H (0.2-1.0) mg/dl AST 21 (13-39) U/L ALT 15 (7-52) U/L Alkaline Phosphatase 84 (34-104) U/L Albumin 3.3 L (3.4-5.0) gm/dl Urine 10/18/21 Range/Units 11:57 Urine Color Dark Yellow Urine Appearance Clear (Clear) Urine pH 6.0 (4.5-7.5) Ur Specific [place] 1.020 (1.000-1.030) Urine Protein Negative (Negative) Urine Glucose (UA) Negative (Negative) Diagnostic Findings Laboratory Results WBC 5.12 K/ul (4.8-10.8) 10/18/21 11:18 RBC 3.98 M/uL (3.93-5.22) 10/18/21 11:18 Hgb 12.6 g/dl (12.0-16.0) 10/18/21 11:18 Hct 37.6 % (34.1-44.9) 10/18/21 11:18 MCV 94.5 fL (80.0-100.0) 10/18/21 11:18 MCH 31.7 pg (25.0-34.0) 10/18/21 11:18 MCHC 33.5 g/dL (32.0-36.0) 10/18/21 11:18 RDW Std Deviation 58.1 fL (36.4-46.3) H 10/18/21 11:18 RDW Coeff of Nasir 17.6 % (11.5-14.5) H 10/18/21 11:18 Plt Count 135 K/uL (130-400) 10/18/21 11:18 MPV 12.7 fL (9.4-12.3) H 10/18/21 11:18 Immature Gran % (Auto) 0.4 % 10/18/21 11:18 Neut % (Auto) 94.9 % 10/18/21 11:18 Lymph % (Auto) 1.6 % 10/18/21 11:18 [place] % (Auto) 3.1 % 10/18/21 11:18 Eos % (Auto) 0.0 % 10/18/21 11:18 Baso % (Auto) 0.0 % 10/18/21 11:18 Neut # (Auto) 4.86 K/uL (1.4-6.5) 10/18/21 11:18 Lymph # (Auto) 0.08 K/uL (1.2-3.4) L 10/18/21 11:18 [place] # (Auto) 0.16 K/uL (0.24-0.82) L 10/18/21 11:18 Eos # (Auto) 0.00 K/uL (0-0.50) 10/18/21 11:18 Baso # (Auto) 0.00 K/uL (0-0.2) 10/18/21 11:18 Immature Gran # (Auto) 0.02 K/uL (0.00-0.02) 10/18/21 11:18 Tear Drop Cells 1+ 10/18/21 11:18 Ovalocytes 1+ 10/18/21 11:18 Echinocytes 1+ 10/18/21 11:18 PT 11.8 Seconds (9.0-12.0) 10/18/21 11:18 INR 1.1 (0.9-1.1) 10/18/21 11:18 APTT 24.8 Seconds (21.0-31.0) 10/18/21 11:18 PTT Ratio 0.9 10/18/21 11:18 Sodium 136 mmol/L (136-145) 10/18/21 11:18 Potassium 3.4 mmol/L (3.5-5.1) L 10/18/21 11:18 Chloride 98 mmol/L (98-107) 10/18/21 11:18 Carbon Dioxide 30 mmol/L (21-32) 10/18/21 11:18 Anion Gap 8 (3-11) 10/18/21 11:18 BUN 17 mg/dl (6-23) 10/18/21 11:18 Creatinine 0.64 mg/dl (0.6-1.2) 10/18/21 11:18 Est Cr Clr Drug Dosing 62.8 ml/min 10/18/21 11:18 Est GFR ( Amer) 101.2 ml/min 10/18/21 11:18 Est GFR (Non-Af Amer) 87.3 ml/min 10/18/21 11:18 BUN/Creatinine Ratio 26.6 (10-20) H 10/18/21 11:18 Glucose 132 mg/dl (70-99(Fasting)) H 10/18/21 11:18 Lactate 1.4 mmol/L (0.4-2.0) 10/18/21 11:18 Calcium 8.7 mg/dl (8.5-10.1) 10/18/21 11:18 Magnesium 1.7 mg/dl (1.7-2.4) 10/18/21 11:18 Total Bilirubin 1.2 mg/dl (0.2-1.0) H 10/18/21 11:18 AST 21 U/L (13-39) 10/18/21 11:18 ALT 15 U/L (7-52) 10/18/21 11:18 Alkaline Phosphatase 84 U/L (34-104) 10/18/21 11:18 Troponin I High Sens 113.0 pg/ml (0-14) H* 10/18/21 11:18 Total Protein 6.7 gm/dl (6.0-8.3) 10/18/21 11:18 Albumin 3.3 gm/dl (3.4-5.0) L 10/18/21 11:18 Globulin 3.4 gm/dl (2.5-4.0) 10/18/21 11:18 Albumin/Globulin Ratio 1.0 (0.9-2) 10/18/21 11:18 Urine Color Dark Yellow 10/18/21 11:57 Urine Appearance Clear (Clear) 10/18/21 11:57 Urine pH 6.0 (4.5-7.5) 10/18/21 11:57 Ur Specific [place] 1.020 (1.000-1.030) 10/18/21 11:57 Urine Protein Negative (Negative) 10/18/21 11:57 Urine Glucose (UA) Negative (Negative) 10/18/21 11:57 Urine Ketones Negative (Negative) 10/18/21 11:57 Urine Blood Negative (Negative) 10/18/21 11:57 Urine Nitrite Negative (Negative) 10/18/21 11:57 Urine Bilirubin Negative (Negative) 10/18/21 11:57 Urine Urobilinogen Negative (Negative) 10/18/21 11:57 Ur Leukocyte Esterase Negative (Negative) 10/18/21 11:57 SARS-CoV-2, RNA, NAAT NEGATIVE (NEGATIVE) 10/18/21 11:00 Impressions Chest X-Ray 10/18/21 10:39 XR chest 1V portable HISTORY: SEPSIS COMPARISON: Chest 05/17/2021. FINDINGS: No pneumothorax. Small bilateral pleural effusions and bibasilar densities are again noted. This is slightly progressed on the left. The heart remains enlarged. Is there is diffuse interstitial thickening, unchanged as compared recent chronic interstitial change or a superimposed pulmonary edema. IMPRESSION: 1. Small bilateral pleural effusions and bibasilar densities. This has progressed on the left. 2. Diffuse interstitial thickening. This may represent mild pulmonary edema on the background of chronic interstitial change. ACT 112: Negative or not required by law. Electronically signed by: Markie Silva M.D. 10/18/2021 11:00 AM Abdomen/Pelvis CT 10/18/21 10:57 CT SCAN OF THE ABDOMEN AND PELVIS WITH IV CONTRAST CLINICAL HISTORY: Generalized abdominal pain. Nausea and vomiting. Dyspnea. COMPARISON STUDY: PET/CT dated 09/17/2017. TECHNIQUE: Following the IV administration of 120 cc of Optiray 320, CT scan of the abdomen and pelvis is performed from the lung bases to the proximal femora. Images are reviewed in the axial, sagittal, and coronal planes. IV contrast was administered without complication. A dose lowering technique was utilized adhering to the principles of ALARA. FINDINGS: Lung bases: The heart is markedly enlarged and without pericardial effusion. There are moderate pleural effusions with dense bibasilar consolidation. There is a moderate to large hiatal hernia. Liver: The contrast-enhanced liver is enlarged, measuring 20.6 cm in length. Hepatic attenuation is heterogeneous. There is marked dilatation of the IVC and hepatic veins, likely related to cardiac dysfunction. There is no intrahepatic biliary ductal dilatation. The hepatic veins and portal veins are patent. Gallbladder: Gallbladder wall thickening and edema is likely related to periportal edema. There is no CT evidence of acute cholecystitis. Spleen: The spleen is enlarged, measuring 17.5 cm in length. Pancreas: Unremarkable. Adrenal glands: Unremarkable. Kidneys: The contrast enhanced kidneys demonstrate mild cortical atrophy and are without hydronephrosis. The kidneys enhance symmetrically. A 12 mm cyst is noted in the upper pole of left kidney. Additional subcentimeter cortical hypodensities also likely represent cysts but are too small for definitive characterization. Abdominal vasculature: The abdominal aorta is normal in course and caliber noting moderate atherosclerotic calcification. Bowel: There is mild colonic diverticulosis without CT evidence of acute diverticulitis. No bowel obstruction is identified. The appendix is well- visualized and normal. Peritoneum: There is a small volume of abdominopelvic ascites and diffuse mesenteric edema. No intraperitoneal free air is seen. Lymphadenopathy: None. Pelvic viscera: The bladder wall is circumferentially thickened. The uterus is enlarged and heterogeneous suggesting fibroids. No adnexal lesion is seen. Skeletal structures: The skeletal structures are heterogeneously osteopenic. There is mild lumbosacral spondylosis. No lytic or blastic lesions are seen. Soft tissues: There is diffuse body wall edema. IMPRESSION: 1. The bladder wall appears markedly thickened. Correlate with clinical findings and urinalysis for evidence of cystitis. 2. Marked cardiomegaly with evidence of cardiac dysfunction 3. Moderate pleural effusions with dependent consolidation. 4. The liver is enlarged and heterogeneous common with marked dilatation of the IVC and hepatic veins and periportal edema. Correlate clinically for evidence of congestive hepatopathy. 5. Splenomegaly. 6. There is anasarca of the body wall, mesenteric edema, and a small volume of abdominopelvic ascites. 7. Heterogeneous and likely fibroid uterus. 8. Additional findings as above. ACT 112: Negative or not required by law. Electronically signed by: Kashif Rios M.D. 10/18/2021 1:20 PM Chest CTA 10/18/21 10:57 CT angio chest PE protocol CLINICAL HISTORY: sob, n/v TECHNIQUE: Multidetector row helical CT of the chest was performed with ang iographic protocol. Coronal and sagittal reformations were obtained. Coronal and sagittal MIPS were obtained from the axial data set and were submitted for review. Automated dose lowering techniques and/or adjustment according to patient size were utilized for this exam. CT DOSE: 530.85 mGy.cm Comparison: Comparison is made to CT chest 03/01/2019 FINDINGS: Lungs and pleura: Large bilateral pleural effusions are seen with associated atelectasis. Smooth interlobular septal thickening is noted Heart and pericardium: There is cardiomegaly without evidence of pericardial effusion. Vessels: No evidence of pulmonary embolism. Mediastinum and braulio: Unremarkable. Chest wall and lower neck: Unremarkable. Abdomen: Unremarkable. Bones: Unremarkable. IMPRESSION: 1. No evidence of pulmonary embolism. 2. Large bilateral pleural effusions with associated atelectasis. 3. Cardiomegaly and possible pulmonary edema. ACT 112: Negative or not required by law. Electronically signed by: Jose Ramon Murcia M.D. 10/18/2021 1:29 PM ECG Additional Comments: Sinus rhythm at 65 beats a minute premature atrial complexes noted. No significant acute ST-T changes noted Code Status & VTE Plan Code Status Patient is a full code has not decided. VTE Prophylaxis Plan VTE Prophylaxis will be ordered: Yes
[2021-10-18] MEDS ORDERED: POTASSIUM CHLORIDE 20 MEQ/15 ML UDC PO STA (15:30)
[2021-10-18] MEDS ORDERED: PROCHLORPERAZINE MALEATE 10 MG TAB PO PRN (17:27)
[2021-10-18] MEDS ORDERED: FUROSEMIDE 40 MG/4 ML VIAL IV STA (17:27)
[2021-10-18] MEDS: ACYCLOVIR 400 MG TAB PO SCH (21:14)
[2021-10-18] MEDS: DOXYCYCLINE HYCLATE 100 MG CAP PO SCH (21:15)
[2021-10-18] MEDS: HEPARIN SOD 5,000 UNIT/0.5 ML VIAL SQ SCH (21:17)
--- NOTE | 2021-10-19 05:49 | Electrocardiogram Report ---
Test Reason : Blood Pressure : / mmHG Vent. Rate : 065 BPM Atrial Rate : 065 BPM P-R Int : 140 ms QRS Dur : 092 ms QT Int : 436 ms P-R-T Axes : 035 107 173 degrees QTc Int : 453 ms Sinus rhythm with Premature atrial complexes Rightward axis Septal infarct (cited on or before 14-MAY-2021) Abnormal ECG When compared with ECG of 15-MAY-2021 14:, No significant change was found Confirmed by Cesar Tejada ([id number]) on 10/19/2021 5:48:43 AM Referred By: Confirmed By:Cesar Tejada
[2021-10-19] MEDS: HEPARIN SOD 5,000 UNIT/0.5 ML VIAL SQ SCH ×3 (06:01→21:35)
--- NOTE | 2021-10-19 07:54 | Hospitalist Progress Note ---
Date of Service October 19, 2021 Assessment & Plan (1) Acute on chronic diastolic (congestive) heart failure: Plan: - in the setting of cardiac amyloidosis with significant third spacing. - IV diuretic therapy Lasix 40 mg twice a day. - Cardiology consultation. - I's and O's Daily weights. - Echocardiogram. - Physical therapy evaluation. - Significant and large pleural effusions - s/p thora with pulm on right side 10/19/2021 - will likely tap left side 10/20/2021 (2) Pleural effusion: Plan: - bilateral - likely due to CHF - these appear to be chronic and have been present on prior CXR with similar size - IV diuretics as above - Thoracentesis by pulm as above (3) Elevated troponin: Plan: Possibly secondary to CHF with no significant chest pain. - trend for now. - Cardiology consult. - Continue with aspirin and statin (4) Multiple myeloma: Plan: Patient to follow-up with primary oncologist as an outpatient. (5) Weakness: Plan: Likely multifactorial. We will have physical therapy evaluation. (6) Dyspepsia: Plan: Patient on PPI we will add H2 deneen for now. Plan Oleg Munoz MD [facility] Medicine Admission and Anticipated Discharge Date Admission Date: October 18, 2021 Subjective Patient is a 76-year-old female with a past medical history of CHF amyloidosis, paroxysmal atrial tachycardia, multiple myeloma presenting to the hospital with complaints of worsening shortness of breath with exertional activity as well as weakness and tiredness. Found to be in likely CHF exacerbation in the setting of bilateral pleural effusions and pulmonary edema in the setting of HFpEF from cardiac amyloidosis. Elevated troponin likely in the setting of deman ischemia with CHF exacerbation, no ECG changes for ischemia. Cardiology consulted for recommendations. Patient is feeling better this morning. Review of Systems Review of Systems: All systems reviewed & are unremarkable except as noted in Subjective All systems reviewed and negative other than as described above in the history and physical Physical Exam Physical Exam: Constitutional:WD/WN, vitals as above ENMT: external ear and nose normal, oropharynx normal Neck: trachea midline, no thyromegaly Respiratory: Diminished breath sounds bilateral at the lower and mid lung dow. No significant wheezing noted no rhonchi otherwise appreciated currently. Cardiovascular:RRR, no murmur, Heart Sounds:no murmur. Has +1 bilateral lower extremity edema Gastrointestinal (Abdomen):normal bowel sounds, soft, nontender, no hepatosplenomegaly Musculoskeletal:no cyanosis or clubbing, extremities motor strength 5/5 Skin: no rashes, warm and dry Neurologic: patellar DTR's 2+ bilat, sensation intact and PERRL, EOMI, accommodation nl, no face palsy, no dysarthria Psychiatric: A+Ox3, euthymic affect Genitourinary:Not assessed Lymphatic: no cervical or axillary lymphadenopathy Results & Data Results & Data ([facility]) Vital Signs (Past 12 Hours) Vital Signs Temp Pulse Pulse Resp BP Pulse Ox O2 Del Method 10/19/21 06:57 36.4 C L 60 19 112/64 94 Room Air 10/19/21 03:12 36.7 C 55 L 18 107/51 L 94 Nasal Cannula 10/18/21 21:10 Nasal Cannula 10/18/21 23:59 59 L 10/18/21 23:46 36.5 C 69 18 92/59 L 94 Nasal Cannula 10/18/21 19:55 36.6 C 59 L 18 97/59 L 96 Room Air O2 Flow Rate 10/19/21 06:57 10/19/21 03:12 2 10/18/21 21:10 2 10/18/21 23:59 10/18/21 23:46 2 10/18/21 19:55 Laboratory Results Short CBC 10/18/21 Range/Units 11:18 WBC 5.12 (4.8-10.8) K/ul Hgb 12.6 (12.0-16.0) g/dl Hct 37.6 (34.1-44.9) % Plt Count 135 (130-400) K/uL BMP 10/18/21 11:18 Sodium 136 Potassium 3.4 L Chloride 98 Carbon Dioxide 30 BUN 17 Creatinine 0.64 Glucose 132 H Calcium 8.7 Liver Function 10/18/21 Range/Units 11:18 Total Bilirubin 1.2 H (0.2-1.0) mg/dl AST 21 (13-39) U/L ALT 15 (7-52) U/L Alkaline Phosphatase 84 (34-104) U/L Albumin 3.3 L (3.4-5.0) gm/dl Urine 10/18/21 Range/Units 11:57 Urine Color Dark Yellow Urine Appearance Clear (Clear) Urine pH 6.0 (4.5-7.5) Ur Specific [place] 1.020 (1.000-1.030) Urine Protein Negative (Negative) Urine Glucose (UA) Negative (Negative) Diagnostic Findings Chest X-Ray 10/18/21 10:39 XR chest 1V portable HISTORY: SEPSIS COMPARISON: Chest 05/17/2021. FINDINGS: No pneumothorax. Small bilateral pleural effusions and bibasilar densities are again noted. This is slightly progressed on the left. The heart remains enlarged. Is there is diffuse interstitial thickening, unchanged as compared recent chronic interstitial change or a superimposed pulmonary edema. IMPRESSION: 1. Small bilateral pleural effusions and bibasilar densities. This has progressed on the left. 2. Diffuse interstitial thickening. This may represent mild pulmonary edema on the background of chronic interstitial change. ACT 112: Negative or not required by law. Electronically signed by: Markie Silva M.D. 10/18/2021 11:00 AM Abdomen/Pelvis CT 10/18/21 10:57 CT SCAN OF THE ABDOMEN AND PELVIS WITH IV CONTRAST CLINICAL HISTORY: Generalized abdominal pain. Nausea and vomiting. Dyspnea. COMPARISON STUDY: PET/CT dated 09/17/2017. TECHNIQUE: Following the IV administration of 120 cc of Optiray 320, CT scan of the abdomen and pelvis is performed from the lung bases to the proximal femora. Images are reviewed in the axial, sagittal, and coronal planes. IV contrast was administered without complication. A dose lowering technique was utilized adhering to the principles of ALARA. FINDINGS: Lung bases: The heart is markedly enlarged and without pericardial effusion. There are moderate pleural effusions with dense bibasilar consolidation. There is a moderate to large hiatal hernia. Liver: The contrast-enhanced liver is enlarged, measuring 20.6 cm in length. Hepatic attenuation is heterogeneous. There is marked dilatation of the IVC and hepatic veins, likely related to cardiac dysfunction. There is no intrahepatic biliary ductal dilatation. The hepatic veins and portal veins are patent. Gallbladder: Gallbladder wall thickening and edema is likely related to periportal edema. There is no CT evidence of acute cholecystitis. Spleen: The spleen is enlarged, measuring 17.5 cm in length. Pancreas: Unremarkable. Adrenal glands: Unremarkable. Kidneys: The contrast enhanced kidneys demonstrate mild cortical atrophy and are without hydronephrosis. The kidneys enhance symmetrically. A 12 mm cyst is noted in the upper pole of left kidney. Additional subcentimeter cortical hypodensities also likely represent cysts but are too small for definitive characterization. Abdominal vasculature: The abdominal aorta is normal in course and caliber noting moderate atherosclerotic calcification. Bowel: There is mild colonic diverticulosis without CT evidence of acute diverticulitis. No bowel obstruction is identified. The appendix is well- visualized and normal. Peritoneum: There is a small volume of abdominopelvic ascites and diffuse mesenteric edema. No intraperitoneal free air is seen. Lymphadenopathy: None. Pelvic viscera: The bladder wall is circumferentially thickened. The uterus is enlarged and heterogeneous suggesting fibroids. No adnexal lesion is seen. Skeletal structures: The skeletal structures are heterogeneously osteopenic. There is mild lumbosacral spondylosis. No lytic or blastic lesions are seen. Soft tissues: There is diffuse body wall edema. IMPRESSION: 1. The bladder wall appears markedly thickened. Correlate with clinical findings and urinalysis for evidence of cystitis. 2. Marked cardiomegaly with evidence of cardiac dysfunction 3. Moderate pleural effusions with dependent consolidation. 4. The liver is enlarged and heterogeneous common with marked dilatation of the IVC and hepatic veins and periportal edema. Correlate clinically for evidence of congestive hepatopathy. 5. Splenomegaly. 6. There is anasarca of the body wall, mesenteric edema, and a small volume of abdominopelvic ascites. 7. Heterogeneous and likely fibroid uterus. 8. Additional findings as above. ACT 112: Negative or not required by law. Electronically signed by: Kashif Rios M.D. 10/18/2021 1:20 PM Chest CTA 10/18/21 10:57 CT angio chest PE protocol CLINICAL HISTORY: sob, n/v TECHNIQUE: Multidetector row helical CT of the chest was performed with angiographic protocol. Coronal and sagittal reformations were obtained. Coronal and sagittal MIPS were obtained from the axial data set and were submitted for [employer]. Automated dose lowering techniques and/or adjustment according to patient size were utilized for this exam. CT DOSE: 530.85 mGy.cm Comparison: Comparison is made to CT chest 03/01/2019 FINDINGS: Lungs and pleura: Large bilateral pleural effusions are seen with associated atelectasis. Smooth interlobular septal thickening is noted Heart and pericardium: There is cardiomegaly without evidence of pericardial effusion. Vessels: No evidence of pulmonary embolism. Mediastinum and braulio: Unremarkable. Chest wall and lower neck: Unremarkable. Abdomen: Unremarkable. Bones: Unremarkable. IMPRESSION: 1. No evidence of pulmonary embolism. 2. Large bilateral pleural effusions with associated atelectasis. 3. Cardiomegaly and possible pulmonary edema. ACT 112: Negative or not required by law. Electronically signed by: Jose Ramon Murcia M.D. 10/18/2021 1:29 PM Medications Administered Current Inpatient Medications Acetaminophen (Acetaminophen 325 Mg Tab) 650 mg PO Q4H PRN PRN Reason: Pain or Fever Stop: 11/17/21 15:11 Acyclovir (Acyclovir 400 Mg Tab) 400 mg PO AMHS RYANN Stop: 11/17/21 20:59 Last Admin: 10/18/21 21:14 Dose: 400 mg Aspirin (Aspirin 81 Mg Ectab) 81 mg PO QAM [facility] Stop: 11/18/21 08:59 Cyanocobalamin (Cyanocobalamin (B-12) 500 Mcg Tablet) 1,000 mcg PO DAILY RYANN Stop: 11/18/21 08:59 Dexamethasone (Dexamethasone 4 Mg Tab) 10 mg PO Th@0830 RYANN Stop: 11/24/21 08:29 Doxycycline Hyclate (Doxycycline Hyclate 100 Mg Cap) 100 mg PO BID RYANN Stop: 11/17/21 20:59 Last Admin: 10/18/21 21:15 Dose: 100 mg Escitalopram Oxalate (Escitalopram Oxalate 10 Mg Tab) 10 mg PO QAM RYANN Stop: 11/18/21 08:59 Famotidine (Famotidine 10 Mg Tablet) 10 mg PO BID PRN PRN Reason: Heartburn Stop: 11/17/21 15:08 Furosemide (Furosemide 40 Mg/4 Ml Vial) 40 mg IV BID17 RYANN Stop: 11/18/21 08:59 Heparin Sodium (Porcine) (Heparin Sod 5,000 Unit/0.5 Ml Vial) 5,000 units SQ Q8 RYANN Stop: 11/17/21 21:59 Last Admin: 10/19/21 06:01 Dose: 5,000 units Ondansetron HCl 6 mg/ Dextrose 53 mls @ 200 mls/hr IV Q6H PRN PRN Reason: Nausea And Vomiting Stop: 11/17/21 15:10 Melatonin (Melatonin 3 Mg Tab) 3 mg PO HS PRN PRN Reason: Sleep Stop: 11/17/21 21:39 Nitroglycerin (Nitroglycerin Sl 0.4 Mg/Tab Tab) 0.4 mg SL UD PRN PRN Reason: Chest Pain Stop: 11/17/21 15:11 Pantoprazole Sodium (Pantoprazole 40 Mg Tab) 40 mg PO QAM RYANN Stop: 11/18/21 08:59 Potassium Chloride (Potassium Chloride Crtab 20 Meq Tabcr) 20 meq PO QAM RYNAN Stop: 11/18/21 08:59 Prochlorperazine (Prochlorperazine Maleate 10 Mg Tab) 10 mg PO Q6 PRN PRN Reason: Nausea Stop: 11/17/21 17:26 Vitamin D (Cholecalciferol 1,000 Units 25 Mcg Tab) 1,000 units PO DAILY RYANN Stop: 11/18/21 08:59
[2021-10-19] MEDS: ESCITALOPRAM OXALATE 10 MG TAB PO SCH (08:45)
[2021-10-19] MEDS: ACYCLOVIR 400 MG TAB PO SCH ×2 (08:45→20:06)
[2021-10-19] MEDS: PANTOprazole 40 MG TAB PO SCH (08:45)
[2021-10-19] MEDS: ASPIRIN 81 MG ECTAB PO SCH (08:45)
[2021-10-19] MEDS: CHOLECALCIFEROL 1,000 UNITS 25 MCG TAB PO SCH (08:45)
[2021-10-19] MEDS: DOXYCYCLINE HYCLATE 100 MG CAP PO SCH ×2 (08:45→20:06)
[2021-10-19] MEDS: POTASSIUM CHLORIDE CRTAB 20 MEQ TABCR PO SCH (08:45)
[2021-10-19] MEDS: CYANOCOBALAMIN (B-12) 500 MCG TABLET PO SCH (08:46)
[2021-10-19] MEDS: FUROSEMIDE 40 MG/4 ML VIAL IV SCH ×2 (08:46→16:22)
[2021-10-19 10:22] LABS: Amylase Pleural Fluid 28 U/L; Glucose Pleural Fluid 117 mg/dl; LDH Pleural Fluid 116 U/L; Total Protein Pleural Fluid < 3.0 gm/dl
--- NOTE | 2021-10-19 10:28 | XRay Report ---
SINGLE VIEW CHEST CLINICAL HISTORY: Status post thoracentesis. FINDINGS: An AP, portable, upright chest radiograph is compared to chest x-ray and chest CT dated 09/29. The heart is enlarged noting atherosclerotic calcification of the thoracic aorta. Pulmonary v ascular congestion persists. There are moderate left and small right pleural effusions with dependent consolidation. The right pleural effusion has decreased in size from yesterday. No pneumothorax is s een. The skeletal structures are osteopenic. The bony thorax is grossly intact. IMPRESSION: 1. Cardiomegaly with persistent pulmonary vascular congestion. 2. Left larger than right pleural effusions with bibasilar consolidation. The right pleural effusion has decreased in size from previous. 3. No pneumothorax is identified post procedure. ACT 112: Negative or not required by law. Electronically signed by: Kashif Rios M.D. 10/19/2021 10:27 AM
--- NOTE | 2021-10-19 10:29 | Procedure Note ---
Procedure Note Date of Service October 19, 2021 Note Procedure: Diagnostic and/or therapeutic ultrasound-guided catheter thoracentesis Professor Of History: Dr. Brett Griggs Indication: Pleural effusion Consent: Signed by patient and verified with timeout prior to procedure Anesthesia: 8 mL's of 1% lidocaine without epinephrine given locally Procedure: Consent was verified and timeout performed. Appropriate imaging studies were reviewed prior to the procedure. Patient was placed in a seated position and limited thoracic ultrasound was performed of the left lateral chest. See separate imaging. The site appropriate for thoracentesis was selected. The skin was prepped and draped in normal sterile fashion. Lidocaine was used for local analgesia. Fluid was aspirated via the finder needle. A small skin yelena was made with the scalpel and the catheter over the needle apparatus was advanced over the rib into the pleural space. Using the syringe one-way valve system, a total of 1400 mL's of straw-colored fluid was removed. Procedure was terminated due to pain in the chest. The catheter was removed and observed to be intact. A sterile dressing was applied. Post procedure chest x-ray was ordered. Fluid was sent for LDH, total protein, cell count, glucose, pH, cytology, AFB cultures, gram stain and culture and fungal cultures. The patient tolerated the procedure well without obvious complication. Coding CPT Codes Pulmonary/Thoracic - Pulmonary and Thoracic: 58781 Thoracentesis w imaging ([id number]) [facility] [place] Procedure Codes (Charges) Pulmonary/Thoracic Procedure 1: Pulmonary and Thoracic: 13860 Thoracentesis w imaging
--- NOTE | 2021-10-19 10:55 | Pulmonary Consultation ---
Date of Consultation October 19, 2021 Assessment & Plan (1) Acute on chronic diastolic (congestive) heart failure: Continue with IV diuresis and optimizing volume status. (2) Pleural effusion: Status post right thoracentesis with 1400 mL of straw-colored fluid removed. Significant improvement in chest x-ray. We will consider left thoracentesis tomorrow. Cytology and culture sent. (3) Cardiac amyloidosis: Followed by cardiology and outpatient hematology. She also has a history of multiple myeloma and is followed by oncology. Plan Thank you for allowing us to participate in the care of the patient. We will continue to follow with you. History of Present Illness Reason for Consultation: Large bilateral effusions Attending Physician: Oleg Munoz MD History of Present Illness 76-year-old female with a past medical history of cardiac amyloidosis, diastolic heart failure, multiple myeloma and recurrent pleural effusions from heart failure presenting to the hospital due to increasing shortness of breath and orthopnea. Patient is currently on supplemental oxygen and has dyspnea with minimal exertion. She also has an occasional cough with productive sputum. Denies hemoptysis. No chest pain currently. No fevers or chills. She previously underwent bilateral thoracentesis in May by my colleague Dr. Granados. Effusions appear to be a transudate at that time related to her heart failure. Pulmonary is consulted due to large bilateral effusions. Performed at bedside ultrasound and thoracentesis of the right hemithorax which yielded 1400 mL of straw-colored fluid. This will be sent for cultures and cytology. Allergies Allergy/AdvReac Type Severity Reaction Status Date / Time No Known Allergies Allergy Unknown ` Verified 10/18/21 12:27 Home Medications Medication Instructions Recorded Confirmed Type cholecalciferol (vitamin D3) 25 25 mcg PO DAILY 05/14/21 10/18/21 History mcg (1,000 unit) capsule (Vitamin D3) cyanocobalamin (vitamin B-12) 1,000 mcg PO DAILY 05/14/21 10/18/21 History 1,000 mcg tablet (Vitamin B-12) furosemide 40 mg tablet 120 mg PO QAM 05/14/21 10/18/21 History omeprazole 20 mg tablet,delayed 20 mg PO QAM 05/14/21 10/18/21 History release potassium chloride 20 mEq See Rx Instructions .Route .COMPLEX 05/14/21 10/18/21 History tablet,extended release(part/cryst) doxycycline hyclate 100 mg capsule 100 mg PO BID #60 caps 05/22/21 10/18/21 Rx acyclovir 400 mg tablet 400 mg PO AMHS 10/18/21 10/18/21 History dexamethasone 4 mg tablet 10 mg PO WK 10/18/21 10/18/21 History escitalopram oxalate 10 mg tablet 10 mg PO QAM 10/18/21 10/18/21 History metolazone 2.5 mg tablet 2.5 mg PO WK 10/18/21 10/18/21 History prochlorperazine maleate 10 mg 10 mg PO Q6 PRN Nausea 10/18/21 10/18/21 History tablet spironolactone 25 mg tablet 25 mg PO QAM 10/18/21 10/18/21 History Patient History Medical History Cardiac amyloidosis Chronic diastolic heart failure GI bleed Multiple myeloma Surgical History History of colonoscopy History of tubal ligation Family History Father , 50s Stroke Mother , 90 Coronary heart disease Social History Smoking Status: Never smoker Second Hand Exposure: No; Hx Alcohol Use: No Hx Substance Use: No Preferred Language: Slovak 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: Effective Rose Grader Required: No Beliefs That Will Affect Care: None marital status: Current Living Situation: Spouse Current Living Situation Comment: with Feels Safe at Home: Yes Safety Concerns: Feels Safe At This Time Assistive Devices: Walker Review of Systems Review of Systems: All systems reviewed & are unremarkable except as noted in HPI & below Physical Exam Physical Exam: Constitutional: Frail-appearing elderly female. Mildly anxious. Eyes: Pupils are equal round and reactive to light. Conjunctivae are normal. Anicteric sclera. Ears nose, mouth and throat: Mallampati class 1. Normal posterior oropharynx. Uvula is midline. Neck: Trachea is midline. Visual inspection is normal. Respiratory: No increased work of breathing. Diminished at the bases bilaterally. Cardiovascular: Regular rate and rhythm. No murmurs. No edema. Gastrointestinal: Normal bowel sounds, soft, nontender and nondistended. No hepatosplenomegaly noted. Musculoskeletal: No cyanosis. Patient is able to move all extremities. Diffusely weak. Skin: No rashes, warm dry and intact. Neurologic: No obvious focal neurological deficits seen. Psychiatric: Alert and oriented x3 with a euthymic affect. Results & Data Results & Data ([facility]) Vital Signs (Past 12 Hours) Vital Signs Temp Pulse Pulse Resp BP Pulse Ox O2 Del Method 10/19/21 08:00 Nasal Cannula 10/19/21 08:00 65 10/19/21 09:52 36.6 C 64 20 110/63 97 Nasal Cannula 10/19/21 06:57 36.4 C L 60 19 112/64 94 Room Air 10/19/21 03:12 36.7 C 55 L 18 107/51 L 94 Nasal Cannula 10/18/21 23:59 59 L 10/18/21 23:46 36.5 C 69 18 92/59 L 94 Nasal Cannula O2 Flow Rate 10/19/21 08:00 2 10/19/21 08:00 10/19/21 09:52 10/19/21 06:57 10/19/21 03:12 2 10/18/21 23:59 10/18/21 23:46 2 PG Care Time/CCT Total # of Minutes Spent Total Time Spent with Patient: Total time spent is greater than 50% in coordination of care (as documented) at patient's floor/unit and/or counseling patient: Coding Level of Care Code 79152 Inpt Consult Level 5 Diagnoses Acute on chronic diastolic (congestive) heart failure I50.33 Pleural effusion J90 Cardiac amyloidosis E85.4; I43
[2021-10-19 11:04] LABS: Appearance Pleural Fluid Slightly Hazy; Color Pleural Fluid Yellow; Lymphocytes, Fluid 5 %; Mono,Macrophage,Mesothelial 88 %; Neutrophils, Fluid 7 %; RBC Pleural Fluid (A) < 2000 /uL; WBC Pleural Fluid (A) 180 /uL
--- NOTE | 2021-10-19 11:14 | Cardiology Consultation ---
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 1. Continue IV diuretic therapy as prescribed, with careful monitoring of blood pressure, renal function, and electrolytes. 2. Supplement potassium orally. 3. Increase spironolactone dosing to 25 mg twice a day. 4. Avoid evidence based beta deneen therapy as well as ACEI/ARB/Entresto due to observed bradycardia, hypotension, and the fact that they are typically poorly tolerated in AL amyloidosis. 5. Calcium channel blockers are contraindicated. 6. Continue telemetry, monitoring for atrial fibrillation, history of nonsustained ventricular tachycardia 7. Patient is listed as having an allergy to Torsemide (itching) and thus would resume oral furosemide after appropriate IV diuresis 8. Further recommendations pending the above, evaluation by Dr. Hernandez today, and patient's ongoing hospitalization. Supervising Physician Co-Signing Physician Notes Patient was seen and examined, chart medication and outpatient records personally reviewed. Exam notable for thin cachectic female oxygenating well on nasal cannula Diminished breath sounds bilateral bases on lung exam Regular rate and rhythm with soft apical murmur, S4 She is a very complex 76-year-old female with diagnosis of AL cardiac amyloidosis with systolic and diastolic heart failure currently precipitated by reduction in diuretic dosing. She presents with worsening dyspnea as well as marked weakness and fatigue with evidence of congestive heart failure and bilateral pleural effusions Patient underwent right thoracentesis earlier today with some improvement in respiratory status. Possible left thoracentesis tomorrow Plan as outlined to continue IV diuretics, switch potassium to spironolactone. Blood pressures remain marginal as in past and consistent with diagnosis. Patient is on chronic dexamethasone with any acute changes consider evaluation for hypoadrenalism History of Present Illness Reason for Consultation: CHF Requesting Physician: Noemí Attending Physician: Alexander History of Present Illness Ms. Anel Hogue is a very pleasant 76-year-old female who was admitted to [facility] on October 18, 2021, presenting through the emergency room after initially going to her planned hematology/oncology treatment feeling poorly, with complaints of progressive dyspnea over the last 2 to 3 weeks, fullness in her abdomen, decreased appetite, nausea and dry heaving without vomiting or diarrhea. Notes having a cough mainly at night, a lot of phlegm without fevers or chills, intermittent episodes of PND. Approximately 2 to 3 weeks ago patient self reduced furosemide from 120 mg twice per day to 120 mg once per day due to excessive urination. Chest x-ray on presentation revealed small bilateral pleural effusions with bibasilar densities and diffuse interstitial thickening CT scan of the abdomen pelvis notable for marked cardiomegaly with evidence of cardiac dysfunction, moderate pleural effusions with dependent consolidation, marked dilatation of the IVC and hepatic veins and periportal edema, splenomegaly, anasarca of the body wall, mesenteric ischemia, and a small volume of abdominal pelvic ascites. CT scan of the chest revealed no evidence of PE, revealing large bilateral pleural effusions with associated atelectasis, cardiomegaly, possible pulmonary edema. EKG on presentation was poor in technical quality, appearing to reveal sinus rhythm at 65 bpm with premature atrial complexes, rightward axis, poor R wave progression versus prior septal infarct. QTc 453 ms. Resting echocardiography revealed normal LV chamber size, with severe concentric LVH, speckling pattern of the myocardium, with concomitant severe biatrial enlargement. Findings highly suggestive of cardiac amyloidosis. LV systolic function mildly reduced, ejection fraction 45 to 50%. Grade 2 diastolic dysfunction. Mild aortic valve sclerosis without significant stenosis. Moderate to severe tricuspid regurgitation. Borderline pulmonary hypertension, pulmonary artery systolic pressure 35 mmHg. Patient status post left thoracentesis, removal of 1400 mL of straw-colored fluid by pulmonary/thoracic medicine. Patient followed by Dr. Molina and at [facility], history of [place] Cardiac amyloidosis, severe chronic diastolic, past nonsustained ventricular tachycardia. Hematology/Oncology with Dr. Juan A Luevano, IgG [place] multiple myeloma Social History: Reformed remote smoker. No significant alcohol. 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 Father at the age of 51 following a hemorrhagic stroke. Maternal aunt with breast cancer. Complete Review of Systems is as stated above, negative, or noncontributory. Allergies Allergy/AdvReac Type Severity Reaction Status Date / Time No Known Allergies Allergy Unknown ` Verified 10/18/21 12:27 Home Medications Medication Instructions Recorded Confirmed Type cholecalciferol (vitamin D3) 25 25 mcg PO DAILY 05/14/21 10/18/21 History mcg (1,000 unit) capsule (Vitamin D3) cyanocobalamin (vitamin B-12) 1,000 mcg PO DAILY 05/14/21 10/18/21 History 1,000 mcg tablet (Vitamin B-12) furosemide 40 mg tablet 120 mg PO QAM 05/14/21 10/18/21 History omeprazole 20 mg tablet,delayed 20 mg PO QAM 05/14/21 10/18/21 History release potassium chloride 20 mEq See Rx Instructions .Route .COMPLEX 05/14/21 10/18/21 History tablet,extended release(part/cryst) doxycycline hyclate 100 mg capsule 100 mg PO BID #60 caps 05/22/21 10/18/21 Rx acyclovir 400 mg tablet 400 mg PO AMHS 10/18/21 10/18/21 History dexamethasone 4 mg tablet 10 mg PO WK 10/18/21 10/18/21 History escitalopram oxalate 10 mg tablet 10 mg PO QAM 10/18/21 10/18/21 History metolazone 2.5 mg tablet 2.5 mg PO WK 10/18/21 10/18/21 History prochlorperazine maleate 10 mg 10 mg PO Q6 PRN Nausea 10/18/21 10/18/21 History tablet spironolactone 25 mg tablet 25 mg PO QAM 10/18/21 10/18/21 History Patient History Medical History Cardiac amyloidosis Chronic diastolic heart failure GI bleed Multiple myeloma Surgical History History of colonoscopy History of tubal ligation Family History Father , 50s Stroke Mother , 90 Coronary heart disease Social History Smoking Status: Never smoker Second Hand Exposure: No; Hx Alcohol Use: No Hx Substance Use: No Preferred Language: Somali 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: Effective Police Superintendent Required: No Beliefs That Will Affect Care: None marital status: Current Living Situation: Spouse Current Living Situation Comment: with Feels Safe at Home: Yes Safety Concerns: Feels Safe At This Time Assistive Devices: Walker Physical Exam Physical Exam: General: A&Ox3. NAD. HEENT: Normocephalic. Atraumatic. Eyes: PER. Conjunctiva pink, sclera clear. Neck: + JVD. + HJR. Heart: Regular at 56 bpm. Soft apical systolic murmur. No rub. Lungs: Decreased. Diminished. Absent breath sounds at the bases bilaterally. Abdomen: +BS. Somewhat soft. Extremities: Minimal distal edema. No pretibial edema. No clubbing. No cyanosis. Limited neurological examination is without focal deficits. Pulses: radial=2/4, posterior tibial=2/4. Results & Data ([facility]) Vital Signs (Past 12 Hours) Vital Signs Temp Pulse Pulse Resp BP Pulse Ox O2 Del Method 10/19/21 08:00 Nasal Cannula 10/19/21 08:00 65 10/19/21 09:52 36.6 C 64 20 110/63 97 Nasal Cannula 10/19/21 06:57 36.4 C L 60 19 112/64 94 Room Air 10/19/21 03:12 36.7 C 55 L 18 107/51 L 94 Nasal Cannula 10/18/21 23:59 59 L 10/18/21 23:46 36.5 C 69 18 92/59 L 94 Nasal Cannula O2 Flow Rate 10/19/21 08:00 2 10/19/21 08:00 10/19/21 09:52 10/19/21 06:57 10/19/21 03:12 2 10/18/21 23:59 10/18/21 23:46 2 Laboratory Results Laboratory Results - last 24 hr 10/18/21 10/18/21 10/18/21 11:00 11:18 11:18 WBC 5.12 RBC 3.98 Hgb 12.6 Hct 37.6 MCV 94.5 MCH 31.7 MCHC 33.5 RDW Std Deviation 58.1 H RDW Coeff of Nasir 17.6 H Plt Count 135 MPV 12.7 H Immature Gran % (Auto) 0.4 Neut % (Auto) 94.9 Lymph % (Auto) 1.6 [place] % (Auto) 3.1 Eos % (Auto) 0.0 Baso % (Auto) 0.0 Neut # (Auto) 4.86 Lymph # (Auto) 0.08 L [place] # (Auto) 0.16 L Eos # (Auto) 0.00 Baso # (Auto) 0.00 Immature Gran # (Auto) 0.02 Tear Drop Cells 1+ Ovalocytes 1+ Echinocytes 1+ PT 11.8 INR 1.1 APTT 24.8 PTT Ratio 0.9 Sodium Potassium Chloride Carbon Dioxide Anion Gap BUN Creatinine Est Cr Clr Drug Dosing Est GFR ( Amer) Est GFR (Non-Af Amer) BUN/Creatinine Ratio Glucose Lactate Calcium Magnesium Total Bilirubin AST ALT Alkaline Phosphatase Lactate Dehydrogenase Troponin I High Sens Total Protein Albumin Globulin Albumin/Globulin Ratio Urine Color Urine Appearance Urine pH Ur Specific [place] Urine Protein Urine Glucose (UA) Urine Ketones Urine Blood Urine Nitrite Urine Bilirubin Urine Urobilinogen Ur Leukocyte Esterase Fluid Neutrophils % Fluid Lymphocytes % Fluid Meso/Macro/Gaston % Fluid Comment Pleural Fluid Source Pleural Color Pleural Appearance Pleural pH Pleural WBC Pleural RBC Pleural Total Protein Pleural LDH Pleural Glucose Pleural Amylase SARS-CoV-2, RNA, NAAT NEGATIVE 10/18/21 10/18/21 10/18/21 11:18 11:18 11:57 WBC RBC Hgb Hct MCV MCH MCHC RDW Std Deviation RDW Coeff of Nasir Plt Count MPV Immature Gran % (Auto) Neut % (Auto) Lymph % (Auto) [place] % (Auto) Eos % (Auto) Baso % (Auto) Neut # (Auto) Lymph # (Auto) [place] # (Auto) Eos # (Auto) Baso # (Auto) Immature Gran # (Auto) Tear Drop Cells Ovalocytes Echinocytes PT INR APTT PTT Ratio Sodium 136 Potassium 3.4 L Chloride 98 Carbon Dioxide 30 Anion Gap 8 BUN 17 Creatinine 0.64 Est Cr Clr Drug Dosing 62.8 Est GFR ( Amer) 101.2 Est GFR (Non-Af Amer) 87.3 BUN/Creatinine Ratio 26.6 H Glucose 132 H Lactate 1.4 Calcium 8.7 Magnesium 1.7 Total Bilirubin 1.2 H AST 21 ALT 15 Alkaline Phosphatase 84 Lactate Dehydrogenase Troponin I High Sens 113.0 H* Total Protein 6.7 Albumin 3.3 L Globulin 3.4 Albumin/Globulin Ratio 1.0 Urine Color Dark Yellow Urine Appearance Clear Urine pH 6.0 Ur Specific [place] 1.020 Urine Protein Negative Urine Glucose (UA) Negative Urine Ketones Negative Urine Blood Negative Urine Nitrite Negative Urine Bilirubin Negative Urine Urobilinogen Negative Ur Leukocyte Esterase Negative Fluid Neutrophils % Fluid Lymphocytes % Fluid Meso/Macro/[place] % Fluid Comment Pleural Fluid Source Pleural Color Pleural Appearance Pleural pH Pleural WBC Pleural RBC Pleural Total Protein Pleural LDH Pleural Glucose Pleural Amylase SARS-CoV-2, RNA, NAAT 10/18/21 10/19/21 10/19/21 14:00 09:54 09:54 WBC RBC Hgb Hct MCV MCH MCHC RDW Std Deviation RDW Coeff of Nasir Plt Count MPV Immature Gran % (Auto) Neut % (Auto) Lymph % (Auto) [place] % (Auto) Eos % (Auto) Baso % (Auto) Neut # (Auto) Lymph # (Auto) [place] # (Auto) Eos # (Auto) Baso # (Auto) Immature Gran # (Auto) Tear Drop Cells Ovalocytes Echinocytes PT INR APTT PTT Ratio Sodium Potassium Chloride Carbon Dioxide Anion Gap BUN Creatinine Est Cr Clr Drug Dosing Est GFR ( Amer) Est GFR (Non-Af Amer) BUN/Creatinine Ratio Glucose Lactate Calcium Magnesium Total Bilirubin AST ALT Alkaline Phosphatase Lactate Dehydrogenase Troponin I High Sens 116.3 H* Total Protein Albumin Globulin Albumin/Globulin Ratio Urine Color Urine Appearance Urine pH Ur Specific [place] Urine Protein Urine Glucose (UA) Urine Ketones Urine Blood Urine Nitrite Urine Bilirubin Urine Urobilinogen Ur Leukocyte Esterase Fluid Neutrophils % 7 Fluid Lymphocytes % 5 Fluid Meso/Macro/[place] % 88 Fluid Comment Pleural Fluid Source R.LUNG Pleural Color Yellow Pleural Appearance Slightly Hazy Pleural pH 7.53 H Pleural WBC 180 Pleural RBC < 2000 Pleural Total Protein Pleural LDH Pleural Glucose Pleural Amylase SARS-CoV-2, RNA, NAAT 10/19/21 10/19/21 10/19/21 09:54 10:51 10:51 WBC RBC Hgb Hct MCV MCH MCHC RDW Std Deviation RDW Coeff of Nasir Plt Count MPV Immature Gran % (Auto) Neut % (Auto) Lymph % (Auto) [place] % (Auto) Eos % (Auto) Baso % (Auto) Neut # (Auto) Lymph # (Auto) [place] # (Auto) Eos # (Auto) Baso # (Auto) Immature Gran # (Auto) Tear Drop Cells Ovalocytes Echinocytes PT INR APTT PTT Ratio Sodium Potassium Chloride Carbon Dioxide Anion Gap BUN Creatinine Est Cr Clr Drug Dosing Est GFR ( Amer) Est GFR (Non-Af Amer) BUN/Creatinine Ratio Glucose Lactate Calcium Magnesium Total Bilirubin Pending AST ALT Alkaline Phosphatase Lactate Dehydrogenase Pending Troponin I High Sens Total Protein Pending Albumin Pending Globulin Albumin/Globulin Ratio Urine Color Urine Appearance Urine pH Ur Specific [place] Urine Protein Urine Glucose (UA) Urine Ketones Urine Blood Urine Nitrite Urine Bilirubin Urine Urobilinogen Ur Leukocyte Esterase Fluid Neutrophils % Fluid Lymphocytes % Fluid Meso/Macro/[place] % Fluid Comment Pleural Fluid Source Pleural Color Pleural Appearance Pleural pH Pleural WBC Pleural RBC Pleural Total Protein < 3.0 Pleural LDH 116 Pleural Glucose 117 Pleural Amylase 28 SARS-CoV-2, RNA, NAAT Diagnostic Findings Telemetry monitoring reveals sinus/sinus bradycardia, with heart rates ranging in the 50s to 60s. Occasional premature atrial complexes noted. No atrial fibrillation observed.
[2021-10-19 11:36] LABS: Albumin Level 3.1 gm/dl (3.4-5.0); Bilirubin,Total 0.9 mg/dl (0.2-1.0); Total Protein 6.3 gm/dl (6.0-8.3)
[2021-10-19] MEDS ORDERED: ALBUMIN 25% 12.5 GM/50 ML VIAL IV ONE (13:15)
--- NOTE | 2021-10-19 14:41 | Procedure Note ---
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 Brett Griggs Indication: Pleural effusion Consent: Signed by patient and verified with timeout prior to procedure Anesthesia: 8 mL's of 1% lidocaine without epinephrine given locally Procedure: Consent was verified and timeout performed. Appropriate imaging studies were reviewed prior to the procedure. Patient was placed in a seated position and limited thoracic ultrasound was performed of the left lateral chest. See separate imaging. The site appropriate for thoracentesis was selected. The skin was prepped and draped in normal sterile fashion. Lidocaine was used for local analgesia. Fluid was aspirated via the finder needle. A small skin yelena was made with the scalpel and the catheter over the needle apparatus was advanced over the rib into the pleural space. Using the syringe one-way valve system, a total of 1000 mL's of straw-colored fluid was removed. Procedure was terminated due to lack of flow. The catheter was removed and observed to be intact. A sterile dressing was applied. Post procedure chest x-ray was ordered. Fluid was sent for LDH, total protein, cell count, glucose, pH, cytology, AFB cultures, gram stain and culture and fungal cultures. The patient tolerated the procedure well without obvious complication Coding CPT Codes Pulmonary/Thoracic - Pulmonary and Thoracic: 43483 Thoracentesis w imaging ([id number]) [facility] [place] Procedure Codes (Charges) Pulmonary/Thoracic Procedure 1: Pulmonary and Thoracic: 01091 Thoracentesis w imaging
--- NOTE | 2021-10-19 16:41 | XRay Report ---
XR chest 1V portable CLINICAL HISTORY: s/p left thora TECHNIQUE: Single frontal radiograph of the chest was obtained. Comparison: Comparison is made to chest radiograph 10/19/2021 FINDINGS: No lines and tubes are seen. Cardiomegaly is noted. Right greater than left airspace opacities are se en. There is moderate pulmonary edema. Left pleural effusion is significantly decreased in size. No e vidence of pneumothorax. There is a small right pleural effusion. IMPRESSION: 1. Interval decrease in size of left pleural effusion status post thoracentesis. No evidence of pneu mothorax. 2. Right greater than left airspace opacities likely represent atelectasis with or without superimpo sed pneumonia or aspiration. 3. Cardiomegaly with moderate pulmonary edema. ACT 112: Negative or not required by law. Electronically signed by: Jose Ramon Murcia M.D. 10/19/2021 4:40 PM
[2021-10-19] MEDS: SPIRONOLACTONE 25 MG TAB PO SCH (20:05)
[2021-10-20] MEDS: HEPARIN SOD 5,000 UNIT/0.5 ML VIAL SQ SCH ×3 (06:14→21:18)
[2021-10-20] MEDS: ondansetron HCL 6 MG in DEXTROSE 5% 50 ML IV PRN ×2 (06:24→15:35)
[2021-10-20 07:02] LABS: BUN Creatinine Ratio 31.3 (10-20); Calcium 8.2 mg/dl (8.5-10.1); Creatinine Clr Calc Pharmacy 62.8 ml/min; Est GFR (African American) 101.2 ml/min; Est GFR (Non-African American) 87.3 ml/min; Magnesium 1.6 mg/dl (1.7-2.4); Potassium 3.3 mmol/L (3.5-5.1)
[2021-10-20] MEDS: ACYCLOVIR 400 MG TAB PO SCH ×2 (07:27→21:18)
[2021-10-20] MEDS: ASPIRIN 81 MG ECTAB PO SCH (07:27)
[2021-10-20] MEDS: PANTOprazole 40 MG TAB PO SCH (07:27)
[2021-10-20] MEDS: DOXYCYCLINE HYCLATE 100 MG CAP PO SCH ×2 (07:27→21:18)
[2021-10-20] MEDS: SPIRONOLACTONE 25 MG TAB PO SCH ×2 (07:27→21:17)
[2021-10-20] MEDS: POTASSIUM CHLORIDE CRTAB 20 MEQ TABCR PO SCH ×4 (07:27→21:17)
[2021-10-20] MEDS: FUROSEMIDE 40 MG/4 ML VIAL IV SCH ×2 (07:27→16:04)
[2021-10-20] MEDS: CHOLECALCIFEROL 1,000 UNITS 25 MCG TAB PO SCH (07:28)
[2021-10-20] MEDS: CYANOCOBALAMIN (B-12) 500 MCG TABLET PO SCH (07:28)
[2021-10-20] MEDS: ESCITALOPRAM OXALATE 10 MG TAB PO SCH (07:28)
[2021-10-20] MEDS ORDERED: POTASSIUM CHLORIDE PWD 20 MEQ PACK PO STA (07:39)
--- NOTE | 2021-10-20 07:43 | Hospitalist Progress Note ---
Date of Service October 20, 2021 Assessment & Plan (1) Acute on chronic diastolic (congestive) heart failure: Plan: - in the setting of cardiac amyloidosis with significant third spacing. - IV diuretic therapy Lasix 40 mg twice a day. - Cardiology consultation. - I's and O's Daily weights. - Echocardiogram. - Physical therapy evaluation. - Significant and large pleural effusions - s/p thora with pulm on right and left 10/19/2021 - still with mild hypoxia on RA to 89% and crackles in lungs - continue IV lasix BID (2) Pleural effusion: Plan: - bilateral - likely due to CHF - these appear to be chronic and have been present on prior CXR with similar size - IV diuretics as above - Thoracentesis by pulm as above (3) Elevated troponin: Plan: Possibly secondary to CHF with no significant chest pain. - trend for now. - Cardiology consult. - Continue with aspirin and statin - peaked, no chest pain (4) Multiple myeloma: Plan: Patient to follow-up with primary oncologist as an outpatient. (5) Weakness: Plan: Likely multifactorial. We will have physical therapy evaluation. (6) Dyspepsia: Plan: Patient on PPI we will add H2 deneen for now. Plan Oleg Munoz MD [facility] Medicine Admission and Anticipated Discharge Date Admission Date: October 18, 2021 Subjective Patient is a 76-year-old female with a past medical history of CHF amyloidosis, paroxysmal atrial tachycardia, multiple myeloma presenting to the hospital with complaints of worsening shortness of breath with exertional activity as well as weakness and tiredness. Found to be in likely CHF exacerbation in the setting of bilateral pleural effusions and pulmonary edema in the setting of HFpEF from cardiac amyloidosis. Elevated troponin likely in the setting of demand ischemia with CHF exacerbation, no ECG changes for ischemia. Cardiology consulted for recommendations. IV lasix initiated. Pulm consulted and performed right and left thoracentesis 10/19/2021 with transudative fluid likely from CHF. Patient is feeling better this morning but still with some nausea and not able to tolerate too much food. She otherwise denies chest pain, fever or chills, LE swelling, cough, diarrhea, dysuria. She does still have some orthopnea. Review of Systems Review of Systems: All systems reviewed & are unremarkable except as noted in Subjective All systems reviewed and negative other than as described above in the history and physical Physical Exam Physical Exam: Constitutional:WD/WN, vitals as above ENMT: external ear and nose normal, oropharynx normal Neck: trachea midline, no thyromegaly Respiratory: Dimproved lower lung field sounds but still with crackles up to mid lungs. No significant wheezing noted no rhonchi otherwise appreciated currently. Cardiovascular:RRR, no murmur, Heart Sounds:no murmur. Has +1 bilateral lower extremity edema Gastrointestinal (Abdomen):normal bowel sounds, soft, nontender, no hepatosplenomegaly Musculoskeletal:no cyanosis or clubbing, extremities motor strength 5/5, no LE edema Skin: no rashes, warm and dry Neurologic: patellar DTR's 2+ bilat, sensation intact and PERRL, EOMI, accommodation nl, no face palsy, no dysarthria Psychiatric: A+Ox3, euthymic affect Genitourinary:Not assessed Lymphatic: no cervical or axillary lymphadenopathy Results & Data Results & Data ([facility]) Vital Signs (Past 12 Hours) Vital Signs Temp Pulse Pulse Resp BP BP Pulse Ox 10/20/21 06:58 36.6 C 69 18 103/57 L 92 10/20/21 03:18 101/52 L 10/20/21 02:53 36.9 C 63 16 84/41 L 97 10/19/21 23:26 65 91/52 L 10/19/21 23:00 36.7 C 65 18 80/50 L 98 10/19/21 22:54 60 10/19/21 20:00 O2 Del Method O2 Flow Rate 10/20/21 06:58 Room Air 10/20/21 03:18 10/20/21 02:53 Nasal Cannula 10/19/21 23:26 10/19/21 23:00 Nasal Cannula 10/19/21 22:54 10/19/21 20:00 Nasal Cannula 2 Laboratory Results BMP 10/20/21 05:17 Sodium 139 Potassium 3.3 L Chloride 100 Carbon Dioxide 33 H BUN 20 Creatinine 0.64 Glucose 75 Calcium 8.2 L Liver Function 10/19/21 Range/Units 10:51 Total Bilirubin 0.9 (0.2-1.0) mg/dl Albumin 3.1 L (3.4-5.0) gm/dl Medications Administered Current Inpatient Medications Acetaminophen (Acetaminophen 325 Mg Tab) 650 mg PO Q4H PRN PRN Reason: Pain or Fever Stop: 11/17/21 15:11 Acyclovir (Acyclovir 400 Mg Tab) 400 mg PO AMHS RYANN Stop: 11/17/21 20:59 Last Admin: 10/20/21 07:27 Dose: 400 mg Aspirin (Aspirin 81 Mg Ectab) 81 mg PO QAM [facility] Stop: 11/18/21 08:59 Last Admin: 10/20/21 07:27 Dose: 81 mg Cyanocobalamin (Cyanocobalamin (B-12) 500 Mcg Tablet) 1,000 mcg PO DAILY RYANN Stop: 11/18/21 08:59 Last Admin: 10/20/21 07:28 Dose: 1,000 mcg Dexamethasone (Dexamethasone 4 Mg Tab) 10 mg PO Th@0830 [facility] Stop: 11/24/21 08:29 Doxycycline Hyclate (Doxycycline Hyclate 100 Mg Cap) 100 mg PO BID [facility] Stop: 11/17/21 20:59 Last Admin: 10/20/21 07:27 Dose: 100 mg Escitalopram Oxalate (Escitalopram Oxalate 10 Mg Tab) 10 mg PO QAM [facility] Stop: 11/18/21 08:59 Last Admin: 10/20/21 07:28 Dose: 10 mg Famotidine (Famotidine 10 Mg Tablet) 10 mg PO BID PRN PRN Reason: Heartburn Stop: 11/17/21 15:08 Furosemide (Furosemide 40 Mg/4 Ml Vial) 40 mg IV BID17 [facility] Stop: 11/18/21 08:59 Last Admin: 10/20/21 07:27 Dose: 40 mg Heparin Sodium (Porcine) (Heparin Sod 5,000 Unit/0.5 Ml Vial) 5,000 units SQ Q8 RYANN Stop: 11/17/21 21:59 Last Admin: 10/20/21 06:14 Dose: 5,000 units Ondansetron HCl 6 mg/ Dextrose 53 mls @ 200 mls/hr IV Q6H PRN PRN Reason: Nausea And Vomiting Stop: 11/17/21 15:10 Last Infusion: 10/20/21 06:47 Dose: Infused Magnesium Sulfate/Dextrose (Magnesium Sulfate / D5w) 1 gm in 100 mls @ 50 mls/hr IV Q2H [facility] Stop: 10/20/21 13:44 Melatonin (Melatonin 3 Mg Tab) 3 mg PO HS PRN PRN Reason: Sleep Stop: 11/17/21 21:39 Nitroglycerin (Nitroglycerin Sl 0.4 Mg/Tab Tab) 0.4 mg SL UD PRN PRN Reason: Chest Pain Stop: 11/17/21 15:11 Pantoprazole Sodium (Pantoprazole 40 Mg Tab) 40 mg PO QAM RYANN Stop: 11/18/21 08:59 Last Admin: 10/20/21 07:27 Dose: 40 mg Potassium Chloride (Potassium Chloride Crtab 20 Meq Tabcr) 20 meq PO QAM RYANN Stop: 11/18/21 08:59 Last Admin: 10/20/21 07:27 Dose: 20 meq Potassium Chloride (Potassium Chloride Pwd 20 Meq Pack) 40 meq PO NOW STA Stop: 10/20/21 07:40 Prochlorperazine (Prochlorperazine Maleate 10 Mg Tab) 10 mg PO Q6 PRN PRN Reason: Nausea Stop: 11/17/21 17:26 Spironolactone (Spironolactone 25 Mg Tab) 25 mg PO BID [facility] Stop: 11/18/21 20:59 Last Admin: 10/20/21 07:27 Dose: 25 mg Vitamin D (Cholecalciferol 1,000 Units 25 Mcg Tab) 1,000 units PO DAILY RYANN Stop: 11/18/21 08:59 Last Admin: 10/20/21 07:28 Dose: 1,000 units
[2021-10-20] MEDS: MAGNESIUM SULFATE / D5W 1 GM/100 ML BAG IV SCH ×3 (08:11→11:29)
--- NOTE | 2021-10-20 09:29 | Pulmonology Progress Note ---
Date of Service October 20, 2021 Assessment & Plan (1) Acute on chronic diastolic (congestive) heart failure: Plan: -Continue diuresis, and optimization of Lasix. (2) Pleural effusion: Plan: -Pleural fluid appears transudative. Suspect secondary to patient's longstanding CHF. -Diuresis, Lasix optimization, as above. -Otherwise, consider resolved. (3) Cardiac amyloidosis: Plan: -Patient follows with cardiology. Plan Patient is status post bilateral thoracentesis yesterday with improvement of symptoms. Fluid appears to be transudate consistent with restrictive cardiomyopathy. Recommend volume optimization. Defer to cardiology and primary team. Please call with questions. Follow-up cytology from the pleural fluid. Physical Exam: Constitutional: Frail-appearing elderly female. Mildly anxious. Eyes: Pupils are equal round and reactive to light. Conjunctivae are normal. Anicteric sclera. Ears nose, mouth and throat: Mallampati class 1. Normal posterior oropharynx. Uvula is midline. Neck: Trachea is midline. Visual inspection is normal. Respiratory: No increased work of breathing. Diminished at the bases bilaterally. Cardiovascular: Regular rate and rhythm. No murmurs. No edema. Gastrointestinal: Normal bowel sounds, soft, nontender and nondistended. No hepatosplenomegaly noted. Musculoskeletal: No cyanosis. Patient is able to move all extremities. Diffusely weak. Skin: No rashes, warm dry and intact. Neurologic: No obvious focal neurological deficits seen. Psychiatric: Alert and oriented x3 with a euthymic affect. Admission and Anticipated Discharge Date Admission Date: October 18, 2021 Subjective Patient awake and in bed this morning. She reports much improved breathing this morning after thoracenteses of right and left lung yesterday. Reports feeling nauseous and fatigued at this morning, and has been unable to eat breakfast. She denies abdominal pain, reporting only a "queasy feeling." Rest of ROS negative. Review of Systems Review of Systems: All systems reviewed & are unremarkable except as noted in HPI & below Physical Exam Physical Exam: General: Frail-appearing, alert, interactive woman in no acute distress. HEENT: Normocephalic, atraumatic. EOM intact. Good conjugate gaze. Nares patent. Moist mucosal membranes. Neck: Supple. No lymphadenopathy. Normal ROM. CV: Regular rate and rhythm. Normal S1 and S2. No murmurs gallops or rubs. No pedal edema. Respiratory: Normal respiratory effort. Mild bibasilar crackles. Clear to auscultation bilaterally at the mid and apical lung dow. Abdomen: Soft, nondistended abdomen. No bruits heard on auscultation. No t enderness to deep palpation. No guarding or rebound. Results & Data Results & Data ([facility]) Vital Signs (Past 12 Hours) Vital Signs Temp Pulse Pulse Resp BP BP Pulse Ox 10/20/21 08:00 65 10/20/21 08:00 10/20/21 06:58 36.6 C 69 18 103/57 L 92 10/20/21 03:18 101/52 L 10/20/21 02:53 36.9 C 63 16 84/41 L 97 10/19/21 23:26 65 91/52 L 10/19/21 23:00 36.7 C 65 18 80/50 L 98 10/19/21 22:54 60 O2 Del Method O2 Flow Rate 10/20/21 08:00 10/20/21 08:00 Nasal Cannula 2 10/20/21 06:58 Room Air 10/20/21 03:18 10/20/21 02:53 Nasal Cannula 10/19/21 23:26 10/19/21 23:00 Nasal Cannula 10/19/21 22:54 Resident Activity Tracking Resident Involvement: Resident Care Provided Care Provided: Adult Hospital Medicine
--- NOTE | 2021-10-20 11:54 | XRay Report ---
SINGLE VIEW CHEST CLINICAL HISTORY: Hypoxia. FINDINGS: An AP, portable, upright chest radiograph is compared to chest x-ray dated 10/19/2021 and co rrelated with chest CT dated 10/18/2021. A hiatal hernia is noted. The heart is enlarged noting athero sclerotic calcification of the thoracic aorta. Pulmonary vascular congestion persists. There is mild pulmonary edema. Layering bilateral pleural effusions with dependent consolidation is similar to prev ious. No pneumothorax is seen. The skeletal structures are osteopenic. The bony thorax is grossly int act. IMPRESSION: 1. Cardiomegaly with persistent pulmonary vascular congestion and interstitial edema. This appears mo destly improved as compared to yesterday. 2. Bilateral pleural effusions with dependent consolidation. This is similar to yesterday ACT 112: Negative or not required by law. Electronically signed by: Kashif Rios M.D. 10/20/2021 11:53 AM
--- NOTE | 2021-10-20 13:15 | Billing Data ---
Date of Service October 20, 2021 Coding Level of Care Code 99816 Subseq Obs Care Lvl 2
--- NOTE | 2021-10-20 14:29 | Cardiology Progress Note ---
Date of Service October 20, 2021 Assessment & Plan (1) Acute combined systolic and diastolic CHF, NYHA class 3: (2) Elevated troponin: (3) Cardiac amyloidosis: (4) Multiple myeloma: (5) Sinus bradycardia: Plan Complex 76 year old female with AL cardiac amyloidosis, admitted to [facility] on 10/18/2021 following reduction in diuretic therapy approximately 2.5 weeks ago, due to excessive urination, with resultant acute on chronic heart failure - diastolic and systolic, right greater than left. 1. Continue IV diuretic therapy as prescribed, with careful monitoring of blood pressure, renal function, and electrolytes. 2. Supplement potassium orally. 3. spironolactone dosing 25 mg twice a day. 4. Avoid evidence based beta deneen therapy as well as ACEI/ARB/Entresto due to observed bradycardia, hypotension, and the fact that they are typically poorly tolerated in AL amyloidosis. 5. Calcium channel blockers are contraindicated. 6. Continue telemetry, monitoring for atrial fibrillation, history of nonsustained ventricular tachycardia 7. Patient is listed as having an allergy to Torsemide (itching) and thus would resume oral furosemide after appropriate IV diuresis Admission and Anticipated Discharge Date Admission Date: October 18, 2021 Subjective Patient seen and examined, chart reviewed. Overall feels better. Still with nausea and fatigue but denies any chest pain or shortness of breath. Review of Systems Review of Systems: All systems reviewed & are unremarkable except as noted in HPI & below Physical Exam Physical Exam: General: Awake, alert and oriented x 3. No acute distress. HEENT: Normocephalic, atraumatic. Pupils equal, round and reactive to light and accommodation. Extraocular muscles are intact. Anicteric sclera. Moist mucous membranes. Neck: No JVD. No bruit. Cardiovascular: Regular. Positive S-4. Normal S-1 and S-2. No S-3. 3/6 holosystolic ejection murmur, 5th intercostal space, mid-clavicular line without radiation. No rubs. Pulmonary: Clear to auscultation bilaterally. No rales, rhonchi, or wheezing. Abdomen: Bowel sounds x 4, soft. No rebound, guarding or tenderness. No organomegaly. Extremities: No clubbing, cyanosis or edema. +2 pedal pulses bilaterally. Skin: Warm and dry. Results & Data ([facility]) Vital Signs (Past 12 Hours) Vital Signs Temp Pulse Pulse Resp BP Pulse Ox O2 Del Method 10/20/21 10:50 36.6 C 58 L 18 90/52 L 90 Room Air 10/20/21 08:00 65 10/20/21 08:00 Nasal Cannula 10/20/21 06:58 36.6 C 69 18 103/57 L 92 Room Air 10/20/21 03:18 101/52 L 10/20/21 02:53 36.9 C 63 16 84/41 L 97 Nasal Cannula O2 Flow Rate 10/20/21 10:50 10/20/21 08:00 10/20/21 08:00 2 10/20/21 06:58 10/20/21 03:18 10/20/21 02:53
[2021-10-21] MEDS: HEPARIN SOD 5,000 UNIT/0.5 ML VIAL SQ SCH ×3 (05:32→22:59)
[2021-10-21 07:33] LABS: BUN Creatinine Ratio 28.8 (10-20); Calcium 8.4 mg/dl (8.5-10.1); Creatinine Clr Calc Pharmacy 60.9 ml/min; Est GFR (African American) 100.2 ml/min; Est GFR (Non-African American) 86.4 ml/min; Magnesium 2.1 mg/dl (1.7-2.4); Phosphorus 2.1 mg/dl (2.5-4.9); Potassium 4.1 mmol/L (3.5-5.1)
[2021-10-21 07:54] LABS: Basophils # (auto) 0.01 K/uL (0-0.2); Basophils % (auto) 0.3 %; Eosinophils # (auto) 0.12 K/uL (0-0.50); Eosinophils % (auto) 3.3 %; Hemoglobin 12.1 g/dl (12.0-16.0); Immature Granulocytes # (auto) 0.02 K/uL (0.00-0.02); Immature Granulocytes % (auto) 0.6 %; Lymphocytes # (auto) 0.16 K/uL (1.2-3.4); Lymphocytes % (auto) 4.4 %; Mean Corpuscular Hemoglobin 32.3 pg (25.0-34.0); Mean Corpuscular Hgb Conc 31.8 g/dL (32.0-36.0); Mean Corpuscular Volume 101.3 fL (80.0-100.0); Mean Platelet Volume 12.9 fL (9.4-12.3); Monocytes # (auto) 0.51 K/uL (0.24-0.82); Monocytes % (auto) 14.2 %; Neutrophils # (auto) 2.78 K/uL (1.4-6.5); Neutrophils % (auto) 77.2 %; Platelet Count 147 K/uL (130-400); RDW Coefficient of Variation 17.7 % (11.5-14.5); RDW Standard Deviation 63.2 fL (36.4-46.3); Red Blood Count 3.75 M/uL (3.93-5.22)
[2021-10-21] MEDS: CYANOCOBALAMIN (B-12) 500 MCG TABLET PO SCH (09:39)
[2021-10-21] MEDS: CHOLECALCIFEROL 1,000 UNITS 25 MCG TAB PO SCH (09:40)
[2021-10-21] MEDS: POTASSIUM CHLORIDE CRTAB 20 MEQ TABCR PO SCH ×3 (09:40→20:30)
[2021-10-21] MEDS: ESCITALOPRAM OXALATE 10 MG TAB PO SCH (09:40)
[2021-10-21] MEDS: PANTOprazole 40 MG TAB PO SCH (09:41)
[2021-10-21] MEDS: SPIRONOLACTONE 25 MG TAB PO SCH ×2 (09:41→20:30)
[2021-10-21] MEDS: ASPIRIN 81 MG ECTAB PO SCH (09:41)
[2021-10-21] MEDS: ACYCLOVIR 400 MG TAB PO SCH ×2 (09:41→20:30)
[2021-10-21] MEDS: DOXYCYCLINE HYCLATE 100 MG CAP PO SCH ×2 (09:41→20:30)
[2021-10-21] MEDS: FUROSEMIDE 40 MG/4 ML VIAL IV SCH ×2 (09:49→16:39)
--- NOTE | 2021-10-21 10:47 | Cardiology Progress Note ---
Date of Service October 21, 2021 Assessment & Plan (1) Acute combined systolic and diastolic CHF, NYHA class 3: (2) Elevated troponin: (3) Cardiac amyloidosis: (4) Multiple myeloma: (5) Sinus bradycardia: Plan Complex 76 year old female with AL cardiac amyloidosis, admitted to [facility] on 10/18/2021 following reduction in diuretic therapy approximately 2.5 weeks ago, due to excessive urination, with resultant acute on chronic heart failure - diastolic and systolic, right greater than left. 1. Continue IV diuretic therapy as prescribed, with careful monitoring of blood pressure, renal function, and electrolytes. 2. Supplement potassium orally. 3. spironolactone dosing 25 mg twice a day. 4. Avoid evidence based beta deneen therapy as well as ACEI/ARB/Entresto due to observed bradycardia, hypotension, and the fact that they are typically poorly tolerated in AL amyloidosis. 5. Calcium channel blockers are contraindicated. 6. Continue telemetry, monitoring for atrial fibrillation, history of nonsustained ventricular tachycardia 7. Patient is listed as having an allergy to Torsemide (itching) and thus would resume oral furosemide after appropriate IV diuresis Admission and Anticipated Discharge Date Admission Date: October 18, 2021 Subjective Patient seen and examined, family at bedside, chart reviewed. States that she is still severely weak and fatigued. Does not significantly feel short of breath but does decompensate quickly with activities. Denies chest pain or palpitations. Telemetry reviewed: Normal sinus rhythm without arrhythmias Review of Systems Review of Systems: All systems reviewed & are unremarkable except as noted in HPI & below Physical Exam Physical Exam: General: Awake, alert and oriented x 3. No acute distress. HEENT: Normocephalic, atraumatic. Pupils equal, round and reactive to light and accommodation. Extraocular muscles are intact. Anicteric sclera. Moist mucous membranes. Neck: No JVD. No bruit. Cardiovascular: Regular. Positive S-4. Normal S-1 and S-2. No S-3. 3/6 holosystolic ejection murmur, 5th intercostal space, mid-clavicular line without radiation. No rubs. Pulmonary: Clear to auscultation bilaterally. No rales, rhonchi, or wheezing. Abdomen: Bowel sounds x 4, soft. No rebound, guarding or tenderness. No organomegaly. Extremities: No clubbing, cyanosis or edema. +2 pedal pulses bilaterally. Skin: Warm and dry. Results & Data ([facility]) Vital Signs (Past 12 Hours) Vital Signs Temp Pulse Pulse Resp BP Pulse Ox O2 Del Method 10/21/21 08:00 58 L 10/21/21 08:00 Nasal Cannula 10/21/21 07:54 36.8 C 69 20 109/60 94 Nasal Cannula 10/21/21 02:00 37.0 C 56 L 16 94/51 L 97 10/20/21 22:59 36.8 C 55 L 16 103/58 L 99 O2 Flow Rate 10/21/21 08:00 10/21/21 08:00 2 10/21/21 07:54 2 10/21/21 02:00 10/20/21 22:59
[2021-10-21] MEDS: POLYETHYLENE (MIRALAX) 17 GM PACK PO PRN (11:35)
--- NOTE | 2021-10-21 11:42 | Hospitalist Progress Note ---
Date of Service October 21, 2021 Assessment & Plan (1) Acute on chronic diastolic (congestive) heart failure: Plan: - in the setting of cardiac amyloidosis with significant third spacing. - IV diuretic therapy Lasix 40 mg twice a day. - Cardiology consultation. - I's and O's Daily weights. - Echocardiogram. - Physical therapy evaluation. - Significant and large pleural effusions - s/p thora with pulm on right and left 10/19/2021 - still with mild hypoxia on RA to 89% and crackles in lungs - continue IV lasix BID - increased to 80mg BID - monitor electrolytes and BP (2) Pleural effusion: Plan: - bilateral - likely due to CHF - these appear to be chronic and have been present on prior CXR with similar size - IV diuretics as above - Thoracentesis by pulm as above (3) Elevated troponin: Plan: Possibly secondary to CHF with no significant chest pain. - resolved - Cardiology consult. - Continue with aspirin and statin - peaked, no chest pain (4) Multiple myeloma: Plan: Patient to follow-up with primary oncologist as an outpatient. (5) Weakness: Plan: Likely multifactorial. We will have physical therapy evaluation. (6) Dyspepsia: Plan: Patient on PPI we will add H2 deneen for now. Plan Oleg Munoz MD Hospital Medicine Admission and Anticipated Discharge Date Admission Date: October 18, 2021 Subjective Patient is a 76-year-old female with a past medical history of CHF amyloidosis, paroxysmal atrial tachycardia, multiple myeloma presenting to the hospital with complaints of worsening shortness of breath with exertional activity as well as weakness and tiredness. Found to be in likely CHF exacerbation in the setting of bilateral pleural effusions and pulmonary edema in the setting of HFpEF from cardiac amyloidosis. Elevated troponin likely in the setting of demand ischemia with CHF exacerbation, no ECG changes for ischemia. Cardiology consulted for recommendations. IV lasix initiated. Pulm consulted and performed right and left thoracentesis 10/19/2021 with transudative fluid likely from CHF. Patient is feeling better this morning but still with some nausea but eating more. Feels fatigued. She otherwise denies chest pain, fever or chills, LE swelling, cough, diarrhea, dysuria. Review of Systems Review of Systems: All systems reviewed & are unremarkable except as noted in Subjective All systems reviewed and negative other than as described above in the history and physical Physical Exam Physical Exam: Constitutional:WD/WN, vitals as above ENMT: external ear and nose normal, oropharynx normal Neck: trachea midline, no thyromegaly Respiratory: Dimproved lower lung field sounds but still with crackles in lower lungs dow. No significant wheezing noted no rhonchi otherwise appreciated currently. Cardiovascular:RRR, no murmur, Heart Sounds:no murmur. Has no bilateral lower extremity edema Gastrointestinal (Abdomen):normal bowel sounds, soft, nontender, no hepatosplenomegaly Musculoskeletal:no cyanosis or clubbing, extremities motor strength 5/5, no LE edema Skin: no rashes, warm and dry Neurologic: patellar DTR's 2+ bilat, sensation intact and PERRL, EOMI, accommodation nl, no face palsy, no dysarthria Psychiatric: A+Ox3, euthymic affect Genitourinary:Not assessed Lymphatic: no cervical or axillary lymphadenopathy Results & Data Results & Data ([facility]) Vital Signs (Past 12 Hours) Vital Signs Temp Pulse Pulse Resp BP Pulse Ox O2 Del Method 10/21/21 08:00 58 L 10/21/21 08:00 Nasal Cannula 10/21/21 07:54 36.8 C 69 20 109/60 94 Nasal Cannula 10/21/21 02:00 37.0 C 56 L 16 94/51 L 97 O2 Flow Rate 10/21/21 08:00 10/21/21 08:00 2 10/21/21 07:54 2 10/21/21 02:00 Laboratory Results Short CBC 10/21/21 Range/Units 05:24 WBC 3.60 L (4.8-10.8) K/ul Hgb 12.1 (12.0-16.0) g/dl Hct 38.0 (34.1-44.9) % Plt Count 147 (130-400) K/uL BMP 10/21/21 05:24 Sodium 137 Potassium 4.1 D Chloride 100 Carbon Dioxide 32 BUN 19 Creatinine 0.66 Glucose 83 Calcium 8.4 L Medications Administered Current Inpatient Medications Acetaminophen (Acetaminophen 325 Mg Tab) 650 mg PO Q4H PRN PRN Reason: Pain or Fever Stop: 11/17/21 15:11 Acyclovir (Acyclovir 400 Mg Tab) 400 mg PO [facility] Stop: 11/17/21 20:59 Last Admin: 10/21/21 09:41 Dose: 400 mg Aspirin (Aspirin 81 Mg Ectab) 81 mg PO QAM [facility] Stop: 11/18/21 08:59 Last Admin: 10/21/21 09:41 Dose: 81 mg Cyanocobalamin (Cyanocobalamin (B-12) 500 Mcg Tablet) 1,000 mcg PO DAILY [facility] Stop: 11/18/21 08:59 Last Admin: 10/21/21 09:39 Dose: 1,000 mcg Dexamethasone (Dexamethasone 4 Mg Tab) 10 mg PO Th@0830 [facility] Stop: 11/24/21 08:29 Doxycycline Hyclate (Doxycycline Hyclate 100 Mg Cap) 100 mg PO BID [facility] Stop: 10/23/21 20:59 Last Admin: 10/21/21 09:41 Dose: 100 mg Escitalopram Oxalate (Escitalopram Oxalate 10 Mg Tab) 10 mg PO QAM [facility] Stop: 11/18/21 08:59 Last Admin: 10/21/21 09:40 Dose: 10 mg Famotidine (Famotidine 10 Mg Tablet) 10 mg PO BID PRN PRN Reason: Heartburn Stop: 11/17/21 15:08 Furosemide (Furosemide 40 Mg/4 Ml Vial) 80 mg IV BID17 [facility] Stop: 11/20/21 08:59 Last Admin: 10/21/21 09:49 Dose: 80 mg Heparin Sodium (Porcine) (Heparin Sod 5,000 Unit/0.5 Ml Vial) 5,000 units SQ Q8 [facility] Stop: 11/17/21 21:59 Last Admin: 10/21/21 05:32 Dose: 5,000 units Ondansetron HCl 6 mg/ Dextrose 53 mls @ 200 mls/hr IV Q6H PRN PRN Reason: Nausea And Vomiting Stop: 11/17/21 15:10 Last Infusion: 10/20/21 15:51 Dose: Infused Melatonin (Melatonin 3 Mg Tab) 3 mg PO HS PRN PRN Reason: Sleep Stop: 11/17/21 21:39 Nitroglycerin (Nitroglycerin Sl 0.4 Mg/Tab Tab) 0.4 mg SL UD PRN PRN Reason: Chest Pain Stop: 11/17/21 15:11 Pantoprazole Sodium (Pantoprazole 40 Mg Tab) 40 mg PO QAM [facility] Stop: 11/18/21 08:59 Last Admin: 07/24/22 09:41 Dose: 40 mg Polyethylene Glycol (Polyethylene (Miralax) 17 Gm Pack) 17 gm PO DAILY PRN PRN Reason: Constipation Stop: 11/20/21 11:22 Last Admin: 10/21/21 11:35 Dose: 17 gm Potassium Chloride (Potassium Chloride Crtab 20 Meq Tabcr) 20 meq PO TID [facility] Stop: 10/22/21 13:59 Last Admin: 10/21/21 09:40 Dose: 20 meq Prochlorperazine (Prochlorperazine Maleate 10 Mg Tab) 10 mg PO Q6 PRN PRN Reason: Nausea Stop: 11/17/21 17:26 Spironolactone (Spironolactone 25 Mg Tab) 25 mg PO BID [facility] Stop: 11/18/21 20:59 Last Admin: 10/21/21 09:41 Dose: 25 mg Vitamin D (Cholecalciferol 1,000 Units 25 Mcg Tab) 1,000 units PO DAILY [facility] Stop: 11/18/21 08:59 Last Admin: 10/21/21 09:40 Dose: 1,000 units
[2021-10-22] MEDS: HEPARIN SOD 5,000 UNIT/0.5 ML VIAL SQ SCH ×3 (05:24→21:01)
[2021-10-22 06:16] LABS: Basophils # (auto) 0.01 K/uL (0-0.2); Basophils % (auto) 0.3 %; Eosinophils # (auto) 0.13 K/uL (0-0.50); Eosinophils % (auto) 3.8 %; Hematocrit (blood only) 35.3 % (34.1-44.9); Hemoglobin 11.3 g/dl (12.0-16.0); Immature Granulocytes # (auto) 0.02 K/uL (0.00-0.02); Immature Granulocytes % (auto) 0.6 %; Lymphocytes # (auto) 0.19 K/uL (1.2-3.4); Lymphocytes % (auto) 5.5 %; Mean Corpuscular Hemoglobin 31.6 pg (25.0-34.0); Mean Corpuscular Volume 98.6 fL (80.0-100.0); Mean Platelet Volume 12.7 fL (9.4-12.3); Monocytes # (auto) 0.43 K/uL (0.24-0.82); Monocytes % (auto) 12.5 %; Neutrophils # (auto) 2.67 K/uL (1.4-6.5); Neutrophils % (auto) 77.3 %; Platelet Count 149 K/uL (130-400); RDW Coefficient of Variation 17.6 % (11.5-14.5); RDW Standard Deviation 62.1 fL (36.4-46.3); Red Blood Count 3.58 M/uL (3.93-5.22); White Blood Count 3.45 K/ul (4.8-10.8)
[2021-10-22 06:41] LABS: Albumin Level 2.9 gm/dl (3.4-5.0); BUN Creatinine Ratio 28.3 (10-20); Bilirubin,Total 0.8 mg/dl (0.2-1.0); Calcium 8.3 mg/dl (8.5-10.1); Est GFR (African American) 103.3 ml/min; Est GFR (Non-African American) 89.2 ml/min; Globulin 2.8 gm/dl (2.5-4.0); Magnesium 1.9 mg/dl (1.7-2.4); Phosphorus 2.4 mg/dl (2.5-4.9); Potassium 4.3 mmol/L (3.5-5.1); Total Protein 5.7 gm/dl (6.0-8.3)
[2021-10-22 06:55] LABS: Ferritin 239.7 ng/ml (8-388)
[2021-10-22 07:00] LABS: Folate (Folic Acid) 14.4 ng/ml (>5.38)
[2021-10-22] MEDS: POLYETHYLENE (MIRALAX) 17 GM PACK PO PRN (07:57)
[2021-10-22] MEDS: CHOLECALCIFEROL 1,000 UNITS 25 MCG TAB PO SCH (07:59)
[2021-10-22] MEDS: FUROSEMIDE 40 MG/4 ML VIAL IV SCH ×2 (07:59→17:08)
[2021-10-22] MEDS: DOXYCYCLINE HYCLATE 100 MG CAP PO SCH ×2 (07:59→20:39)
[2021-10-22] MEDS: ACYCLOVIR 400 MG TAB PO SCH ×2 (07:59→20:39)
[2021-10-22] MEDS: ASPIRIN 81 MG ECTAB PO SCH (07:59)
[2021-10-22] MEDS: PANTOprazole 40 MG TAB PO SCH (07:59)
[2021-10-22] MEDS: SPIRONOLACTONE 25 MG TAB PO SCH ×2 (07:59→20:39)
[2021-10-22] MEDS: POTASSIUM CHLORIDE CRTAB 20 MEQ TABCR PO SCH (07:59)
[2021-10-22] MEDS: ESCITALOPRAM OXALATE 10 MG TAB PO SCH (07:59)
[2021-10-22] MEDS: CYANOCOBALAMIN (B-12) 500 MCG TABLET PO SCH (07:59)
[2021-10-22] MEDS: ondansetron HCL 6 MG in DEXTROSE 5% 50 ML IV PRN (09:06)
--- NOTE | 2021-10-22 13:39 | Hospitalist Progress Note ---
Date of Service October 22, 2021 Assessment & Plan (1) Acute on chronic diastolic (congestive) heart failure: Plan: - in the setting of cardiac amyloidosis with significant third spacing. - IV diuretic therapy Lasix 40 mg twice a day. - Cardiology consultation. - I's and O's Daily weights. - Echocardiogram. - Physical therapy evaluation. - Significant and large pleural effusions - s/p thora with pulm on right and left 10/19/2021 - still with mild hypoxia on RA to 92% and crackles in lungs but improved - likely approaching baseline with one more day of IV diuretics - PT/OT eval - continue IV lasix BID - monitor electrolytes and BP (2) Pleural effusion: Plan: - bilateral - likely due to CHF - these appear to be chronic and have been present on prior CXR with similar size - IV diuretics as above - Thoracentesis by pulm as above - repeat CXR 10/20/2021 with redemonstration of bilateral pleural effusions (3) Elevated troponin: Plan: Possibly secondary to CHF with no significant chest pain. - resolved - Cardiology consult. - Continue with aspirin and statin - peaked, no chest pain (4) Multiple myeloma: Plan: Patient to follow-up with primary oncologist as an outpatient. (5) Weakness: Plan: Likely multifactorial. - continue to work with PT/OT as patient is anxious about going home (6) Dyspepsia: Plan: Patient on PPI we will add H2 deneen for now. Plan Oleg Munoz MD [facility] Medicine Admission and Anticipated Discharge Date Admission Date: October 18, 2021 Subjective Patient is a 76-year-old female with a past medical history of CHF amyloidosis, paroxysmal atrial tachycardia, multiple myeloma presenting to the hospital with complaints of worsening shortness of breath with exertional activity as well as weakness and tiredness. Found to be in likely CHF exacerbation in the setting of bilateral pleural effusions and pulmonary edema in the setting of HFpEF from cardiac amyloidosis. Elevated troponin likely in the setting of demand ischemia with CHF exacerbation, no ECG changes for ischemia. Cardiology consulted for recommendations. IV lasix initiated. Pulm consulted and performed right and left thoracentesis 10/19/2021 with transudative fluid likely from CHF. Patient is feeling better this morning but still with some nausea but eating more - nausea is ongoing problem for her. Feels fatigued. She otherwise denies chest pain, fever or chills, LE swelling, cough, diarrhea, dysuria. Review of Systems Review of Systems: All systems reviewed & are unremarkable except as noted in Subjective All systems reviewed and negative other than as described above in the history and physical Physical Exam Physical Exam: Constitutional:WD/WN, vitals as above ENMT: external ear and nose normal, oropharynx normal Neck: trachea midline, no thyromegaly Respiratory: Dimproved lower lung field sounds but still with crackles in lower lungs dow. No significant wheezing noted no rhonchi otherwise appreciated currently. Cardiovascular:RRR, no murmur, Heart Sounds:no murmur. Has no bilateral low er extremity edema Gastrointestinal (Abdomen):normal bowel sounds, soft, nontender, no hepatosplenomegaly Musculoskeletal:no cyanosis or clubbing, extremities motor strength 5/5, no LE edema Skin: no rashes, warm and dry Neurologic: patellar DTR's 2+ bilat, sensation intact and PERRL, EOMI, a ccommodation nl, no face palsy, no dysarthria Psychiatric: A+Ox3, euthymic affect Genitourinary:Not assessed Lymphatic: no cervical or axillary lymphadenopathy Results & Data Results & Data ([facility]) Vital Signs (Past 12 Hours) Vital Signs Temp Pulse Pulse Resp BP BP Pulse Ox 10/22/21 11:25 37.0 C 60 16 106/62 97 10/22/21 07:32 37.0 C 62 18 117/65 95 10/22/21 07:25 54 L 10/22/21 07:25 10/22/21 03:00 36.6 C 64 16 86/42 L 95 O2 Del Method O2 Flow Rate 10/22/21 11:25 Nasal Cannula 2 10/22/21 07:32 Nasal Cannula 2 10/22/21 07:25 10/22/21 07:25 Nasal Cannula 2 10/22/21 03:00 Laboratory Results Short CBC 10/22/21 Range/Units 05:21 WBC 3.45 L (4.8-10.8) K/ul Hgb 11.3 L (12.0-16.0) g/dl Hct 35.3 (34.1-44.9) % Plt Count 149 (130-400) K/uL BMP 10/22/21 05:21 Sodium 139 Potassium 4.3 Chloride 100 Carbon Dioxide 34 H BUN 17 Creatinine 0.60 Glucose 79 Calcium 8.3 L Liver Function 10/22/21 Range/Units 05:21 Total Bilirubin 0.8 (0.2-1.0) mg/dl AST 14 (13-39) U/L ALT 13 (7-52) U/L Alkaline Phosphatase 72 (34-104) U/L Albumin 2.9 L (3.4-5.0) gm/dl Medications Administered Current Inpatient Medications Acetaminophen (Acetaminophen 325 Mg Tab) 650 mg PO Q4H PRN PRN Reason: Pain or Fever Stop: 11/17/21 15:11 Acyclovir (Acyclovir 400 Mg Tab) 400 mg PO [facility] Stop: 11/17/21 20:59 Last Admin: 10/22/21 07:59 Dose: 400 mg Aspirin (Aspirin 81 Mg Ectab) [facility] Stop: 11/18/21 08:59 Last Admin: 10/22/21 07:59 Dose: 81 mg Cyanocobalamin (Cyanocobalamin (B-12) 500 Mcg Tablet) 1,000 mcg PO DAILY [facility] Stop: 11/18/21 08:59 Last Admin: 10/22/21 07:59 Dose: 1,000 mcg Dexamethasone (Dexamethasone 4 Mg Tab) 10 mg PO Th@0830 [facility] Stop: 11/24/21 08:29 Doxycycline Hyclate (Doxycycline Hyclate 100 Mg Cap) 100 mg PO BID [facility] Stop: 10/23/21 20:59 Last Admin: 10/22/21 07:59 Dose: 100 mg Escitalopram Oxalate (Escitalopram Oxalate 10 Mg Tab) 10 mg PO QAM [facility] Stop: 11/18/21 08:59 Last Admin: 10/22/21 07:59 Dose: 10 mg Famotidine (Famotidine 10 Mg Tablet) 10 mg PO BID PRN PRN Reason: Heartburn Stop: 11/17/21 15:08 Furosemide (Furosemide 40 Mg/4 Ml Vial) 80 mg IV BID17 [facility] Stop: 11/20/21 08:59 Last Admin: 10/22/21 07:59 Dose: 80 mg Heparin Sodium (Porcine) (Heparin Sod 5,000 Unit/0.5 Ml Vial) 5,000 units SQ Q8 [facility] Stop: 11/17/21 21:59 Last Admin: 10/22/21 05:24 Dose: 5,000 units Ondansetron HCl 6 mg/ Dextrose 53 mls @ 200 mls/hr IV Q6H PRN PRN Reason: Nausea And Vomiting Stop: 11/17/21 15:10 Last Infusion: 10/22/21 09:32 Dose: Infused Melatonin (Melatonin 3 Mg Tab) 3 mg PO HS PRN PRN Reason: Sleep Stop: 11/17/21 21:39 Nitroglycerin (Nitroglycerin Sl 0.4 Mg/Tab Tab) 0.4 mg SL UD PRN PRN Reason: Chest Pain Stop: 11/17/21 15:11 Pantoprazole Sodium (Pantoprazole 40 Mg Tab) 40 mg PO QAM [facility] Stop: 11/18/21 08:59 Last Admin: 10/22/21 07:59 Dose: 40 mg Polyethylene Glycol (Polyethylene (Miralax) 17 Gm Pack) 17 gm PO DAILY PRN PRN Reason: Constipation Stop: 11/20/21 11:22 Last Admin: 10/22/21 07:57 Dose: 17 gm Potassium Chloride (Potassium Chloride Crtab 20 Meq Tabcr) 20 meq PO TID [facility] Stop: 10/22/21 13:59 Last Admin: 10/22/21 07:59 Dose: 20 meq Prochlorperazine (Prochlorperazine Maleate 10 Mg Tab) 10 mg PO Q6 PRN PRN Reason: Nausea Stop: 11/17/21 17:26 Spironolactone (Spironolactone 25 Mg Tab) 25 mg PO BID [facility] Stop: 11/18/21 20:59 Last Admin: 10/22/21 07:59 Dose: 25 mg Vitamin D (Cholecalciferol 1,000 Units 25 Mcg Tab) 1,000 units PO DAILY [facility] Stop: 11/18/21 08:59 Last Admin: 10/22/21 07:59 Dose: 1,000 units
[2021-10-23] MEDS: HEPARIN SOD 5,000 UNIT/0.5 ML VIAL SQ SCH ×3 (06:28→20:46)
[2021-10-23] MEDS: CHOLECALCIFEROL 1,000 UNITS 25 MCG TAB PO SCH (08:04)
[2021-10-23] MEDS: CYANOCOBALAMIN (B-12) 500 MCG TABLET PO SCH (08:04)
[2021-10-23] MEDS: FUROSEMIDE 40 MG/4 ML VIAL IV SCH (08:06)
[2021-10-23] MEDS: ASPIRIN 81 MG ECTAB PO SCH (08:06)
[2021-10-23] MEDS: SPIRONOLACTONE 25 MG TAB PO SCH ×2 (08:06→20:46)
[2021-10-23] MEDS: ACYCLOVIR 400 MG TAB PO SCH ×2 (08:06→20:46)
[2021-10-23] MEDS: PANTOprazole 40 MG TAB PO SCH (08:06)
[2021-10-23] MEDS: ESCITALOPRAM OXALATE 10 MG TAB PO SCH (08:06)
[2021-10-23] MEDS: DOXYCYCLINE HYCLATE 100 MG CAP PO SCH (08:06)
[2021-10-23 09:39] LABS: BUN Creatinine Ratio 24.1 (10-20); Calcium 8.8 mg/dl (8.5-10.1); Creatinine Clr Calc Pharmacy 69.3 ml/min; Est GFR (African American) 104.5 ml/min; Est GFR (Non-African American) 90.2 ml/min; Magnesium 1.9 mg/dl (1.7-2.4); Phosphorus 2.7 mg/dl (2.5-4.9); Potassium 3.7 mmol/L (3.5-5.1)
--- NOTE | 2021-10-23 12:05 | XRay Report ---
XR chest 2V PA/lateral HISTORY: 76 years-old Female pleural effusions acute weakness. Follow-up study in a patient with ple ural effusions COMPARISON: Chest radiograph 10/20/2021 TECHNIQUE: PA and lateral views of the chest FINDINGS: Cardiac silhouette is enlarged. Pulmonary vascular congestion with mildly decreased interstitial coar sening. Layering pleural effusions with bibasilar consolidation. Degenerative changes of the shoulder s and spine. IMPRESSION: 1. Cardiomegaly with pulmonary vascular congestion and mildly improved pulmonary edema. 2. Layering pleural effusions with persistent bibasilar consolidation. ACT 112: Negative or not required by law. The above report was generated using voice recognition software. It may contain grammatical, syntax o r spelling errors. Electronically signed by: Jerzy Barton M.D. 10/23/2021 12:04 PM
--- NOTE | 2021-10-23 14:02 | Hospitalist Progress Note ---
Date of Service October 23, 2021 Assessment & Plan (1) Acute on chronic diastolic (congestive) heart failure: Plan: - in the setting of cardiac amyloidosis with significant third spacing. - Cardiology consultation. - I's and O's Daily weights. - Echocardiogram. - Significant and large pleural effusions - s/p thora with pulm on right and left 10/19/2021 - PT/OT eval - recommending rehab now - respiratory status improved - 95% on RA - discontinued IV lasix - started on 40mg lasix PO BID - monitor electrolytes and BP (2) Pleural effusion: Plan: - bilateral - likely due to CHF - these appear to be chronic and have been present on prior CXR with similar size - IV diuretics as above - Thoracentesis by pulm as above - repeat CXR 10/20/2021 with redemonstration of bilateral pleural effusions (3) Multiple myeloma: Plan: Patient to follow-up with primary oncologist as an outpatient. (4) Weakness: Plan: Likely multifactorial. - continue to work with PT/OT as patient is anxious about going home (5) Dyspepsia: Plan: Patient on PPI we will add H2 deneen for now. Plan Oleg Munoz MD [facility] Medicine Admission and Anticipated Discharge Date Admission Date: October 18, 2021 Subjective Patient is a 76-year-old female with a past medical history of CHF amyloidosis, paroxysmal atrial tachycardia, multiple myeloma presenting to the hospital with complaints of worsening shortness of breath with exertional activity as well as weakness and tiredness. Found to be in likely CHF exacerbation in the setting of bilateral pleural effusions and pulmonary edema in the setting of HFpEF from cardiac amyloidosis. Elevated troponin likely in the setting of demand ischemia with CHF exacerbation, no ECG changes for ischemia. Cardiology consulted for recommendations. IV lasix initiated. Pulm consulted and performed right and left thoracentesis 10/19/2021 with transudative fluid likely from CHF. Patient is feeling better this morning but still with some nausea but eating more - nausea is ongoing problem for her. Feels fatigued. She otherwise denies chest pain, fever or chills, LE swelling, cough, diarrhea, dysuria. Review of Systems Review of Systems: All systems reviewed & are unremarkable except as noted in Subjective All systems reviewed and negative other than as described above in the history and physical Physical Exam Physical Exam: Constitutional:WD/WN, vitals as above ENMT: external ear and nose normal, oropharynx normal Neck: trachea midline, no thyromegaly Respiratory: decreased breath sounds in lower lung field and also with diminished crackles in lower lungs dow. No significant wheezing noted no rhonchi otherwise appreciated currently. 95% on RA Cardiovascular:RRR, no murmur, Heart Sounds:no murmur. Has no bilateral lower extremity edema Gastrointestinal (Abdomen):normal bowel sounds, soft, nontender, no hepatosplenomegaly Musculoskeletal:no cyanosis or clubbing, extremities motor strength 5/5, no LE edema Skin: no rashes, warm and dry Neurologic: patellar DTR's 2+ bilat, sensation intact and PERRL, EOMI, accommodation nl, no face palsy, no dysarthria Psychiatric: A+Ox3, euthymic affec, anxoius Genitourinary:Not assessed Lymphatic: no cervical or axillary lymphadenopathy Results & Data Results & Data ([facility]) Vital Signs (Past 12 Hours) Vital Signs Temp Pulse Resp BP Pulse Ox Pulse Ox O2 Del Method 10/23/21 13:03 97 10/23/21 11:29 36.7 C 60 16 92/49 L 98 Nasal Cannula 10/23/21 10:05 36.7 C 57 L 16 96/50 L 94 10/23/21 08:00 Nasal Cannula 10/23/21 07:33 36.7 C 57 L 16 96/50 L 94 Nasal Cannula 10/23/21 03:29 36.9 C 63 17 91/50 L 96 O2 Flow Rate O2 Flow Rate 10/23/21 13:03 2 10/23/21 11:29 2 10/23/21 10:05 10/23/21 08:00 2 10/23/21 07:33 2 10/23/21 03:29 Laboratory Results [facility] 10/23/21 07:32 Sodium 140 Potassium 3.7 Chloride 98 Carbon Dioxide 36 H BUN 14 Creatinine 0.58 L Glucose 80 Calcium 8.8 Medications Administered Current Inpatient Medications Acetaminophen (Acetaminophen 325 Mg Tab) 650 mg PO Q4H PRN PRN Reason: Pain or Fever Stop: 11/17/21 15:11 Acyclovir (Acyclovir 400 Mg Tab) 400 mg PO AMHS [facility] Stop: 11/17/21 20:59 Last Admin: 10/23/21 08:06 Dose: 400 mg Aspirin (Aspirin 81 Mg Ectab) 81 mg PO QAM [facility] Stop: 11/18/21 08:59 Last Admin: 10/23/21 08:06 Dose: 81 mg Cyanocobalamin (Cyanocobalamin (B-12) 500 Mcg Tablet) 1,000 mcg PO DAILY [facility] Stop: 11/18/21 08:59 Last Admin: 10/23/21 08:04 Dose: Not Given Dexamethasone (Dexamethasone 4 Mg Tab) 10 mg PO Th@0830 [facility] Stop: 11/24/21 08:29 Doxycycline Hyclate (Doxycycline Hyclate 100 Mg Cap) 100 mg PO BID [facility] Stop: 10/23/21 20:59 Last Admin: 10/23/21 08:06 Dose: 100 mg Escitalopram Oxalate (Escitalopram Oxalate 10 Mg Tab) 10 mg PO QAM [facility] Stop: 11/18/21 08:59 Last Admin: 10/23/21 08:06 Dose: 10 mg Famotidine (Famotidine 10 Mg Tablet) 10 mg PO BID PRN PRN Reason: Heartburn Stop: 11/17/21 15:08 Furosemide (Furosemide 40 Mg/4 Ml Vial) 80 mg IV BID17 [facility] Stop: 11/20/21 08:59 Last Admin: 10/23/21 08:06 Dose: 80 mg Heparin Sodium (Porcine) (Heparin Sod 5,000 Unit/0.5 Ml Vial) 5,000 units SQ Q8 [facility] Stop: 11/17/21 21:59 Last Admin: 10/23/21 06:28 Dose: 5,000 units Ondansetron HCl 6 mg/ Dextrose 53 mls @ 200 mls/hr IV Q6H PRN PRN Reason: Nausea And Vomiting Stop: 11/17/21 15:10 Last Infusion: 10/22/21 09:32 Dose: Infused Melatonin (Melatonin 3 Mg Tab) 3 mg PO HS PRN PRN Reason: Sleep Stop: 11/17/21 21:39 Nitroglycerin (Nitroglycerin Sl 0.4 Mg/Tab Tab) 0.4 mg SL UD PRN PRN Reason: Chest Pain Stop: 11/17/21 15:11 Pantoprazole Sodium (Pantoprazole 40 Mg Tab) 40 mg PO QAM [facility] Stop: 11/18/21 08:59 Last Admin: 10/23/21 08:06 Dose: 40 mg Polyethylene Glycol (Polyethylene (Miralax) 17 Gm Pack) 17 gm PO DAILY PRN PRN Reason: Constipation Stop: 11/20/21 11:22 Last Admin: 10/22/21 07:57 Dose: 17 gm Prochlorperazine (Prochlorperazine Maleate 10 Mg Tab) 10 mg PO Q6 PRN PRN Reason: Nausea Stop: 11/17/21 17:26 Spironolactone (Spironolactone 25 Mg Tab) 25 mg PO BID [facility] Stop: 11/18/21 20:59 Last Admin: 10/23/21 08:06 Dose: 25 mg Vitamin D (Cholecalciferol 1,000 Units 25 Mcg Tab) 1,000 units PO DAILY [facility] Stop: 11/18/21 08:59 Last Admin: 10/23/21 08:04 Dose: Not Given
[2021-10-23] MEDS: FUROSEMIDE 40 MG TAB PO SCH (16:58)
[2021-10-24] MEDS: PANTOprazole 40 MG TAB PO SCH (06:04)
[2021-10-24] MEDS: HEPARIN SOD 5,000 UNIT/0.5 ML VIAL SQ SCH ×3 (06:05→22:13)
[2021-10-24 07:26] LABS: BUN Creatinine Ratio 28.6 (10-20); Calcium 8.7 mg/dl (8.5-10.1); Creatinine Clr Calc Pharmacy 71.8 ml/min; Est GFR (African American) 105.7 ml/min; Est GFR (Non-African American) 91.2 ml/min; Magnesium 1.9 mg/dl (1.7-2.4); Phosphorus 2.8 mg/dl (2.5-4.9); Potassium 3.6 mmol/L (3.5-5.1)
[2021-10-24] MEDS: CHOLECALCIFEROL 1,000 UNITS 25 MCG TAB PO SCH (08:03)
[2021-10-24] MEDS: CYANOCOBALAMIN (B-12) 500 MCG TABLET PO SCH (08:03)
[2021-10-24] MEDS: ESCITALOPRAM OXALATE 10 MG TAB PO SCH (08:04)
[2021-10-24] MEDS: FUROSEMIDE 40 MG TAB PO SCH (08:04)
[2021-10-24] MEDS: ASPIRIN 81 MG ECTAB PO SCH (08:04)
[2021-10-24] MEDS: SPIRONOLACTONE 25 MG TAB PO SCH ×2 (08:04→20:33)
[2021-10-24] MEDS: ACYCLOVIR 400 MG TAB PO SCH ×2 (08:05→20:33)
--- NOTE | 2021-10-24 14:20 | Hospitalist Progress Note ---
Date of Service October 24, 2021 Assessment & Plan (1) Acute on chronic diastolic (congestive) heart failure: Plan: - in the setting of cardiac amyloidosis with significant third spacing. - Cardiology consultation. - I's and O's Daily weights. - Echocardiogram. - Significant and large pleural effusions - s/p thora with pulm on right and left 10/19/2021 - PT/OT eval - recommending rehab now - respiratory status improved - 95% on RA - discontinued IV lasix - started on 40mg lasix PO BID - monitor electrolytes and BP (2) Pleural effusion: Plan: - bilateral - likely due to CHF - these appear to be chronic and have been present on prior CXR with similar size - IV diuretics as above - Thoracentesis by pulm as above - repeat CXR 10/20/2021 with redemonstration of bilateral pleural effusions (3) Multiple myeloma: Plan: IgG kappa 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 No proteinuria and splenomegaly known. She is taking daratumumab every 4 weeks Velcade (bortezomib) added in June 19 and cyclophosphamide (Cytoxan) with last infusion on 09/27 Decadron lowered from 10mg weekly to 8mg weekly. She began having worsening nausea and diarrhea over the past two weeks as well as reflux symptoms PPT and H2 blockers were adjusted and diet changes to include bland diet were recommended Still, patient has lost weight as she is not eating much Concern with 10 lb weight loss over the last month. GI consulted for thoughts on this. Cont supportive care with antireflux meds and antiemetics Patient to follow-up with primary oncologist as an outpatient-last seen 09/13 (4) Weakness: Plan: Likely multifactorial including malnutrition and prolonged hospitalization. - continue to work with PT/OT as patient is anxious about going home (5) Dyspepsia: Plan: Patient on PPI we will add H2 deneen for now. Will also add TUMS today as this is uncontrolled. Antiemetic may also help this. (6) Malnutrition: Plan: Ongoing weight loss and food avoidance with diarrhea and dry heaving for two weeks. Indigestion uncontrolled and persistent nausea. She is on doxy and acyclovir and chemotherapy. She denies starting anything in the last two weeks, but concerned about medication side effect vs worsening malignancy. This is not an exclusive differential diagnosis. Consulting GI for thoughts. DVT proph Heparin Full Code Dispo-uncertain at this time. DO [facility] Admission and Anticipated Discharge Date Admission Date: October 18, 2021 Subjective Patient is a 76-year-old female with a past medical history of cardiac amyloidosis, paroxysmal atrial tachycardia, multiple myeloma presenting to the hospital with complaints of worsening shortness of breath with exertional activity as well as weakness and tiredness. Found to be in CHF exacerbation in the setting of bilateral pleural effusions and pulmonary edema in the setting of HFpEF from cardiac amyloidosis. Elevated troponin likely in the setting of demand ischemia with CHF exacerbation, no ECG changes for ischemia. Cardiology consulted for recommendations. IV lasix initiated. Pulm consulted and performed right and left thoracentesis 10/19/2021 with transudative fluid likely from CHF. Path was negative for malignancy Pt is persistently fatigued and weak despite treatment during this hospital stay including diuresis. She is not short of breath and denies chest pain. She has persistent nausea and food avoidance. She reports ongoing diarrhea including two loose watery stools at home for the past two weeks. She also reports a 10 lb weight loss in the last month and reports this is likely from not eating. She has multiple myeloma that is known. Review of Systems Review of Systems: All systems were reviewed and negative except as indicated in subjective above. Physical Exam Physical Exam: CONSTITUTIONAL: WNWD, vitals as above, generally fatigued, weak appearing. EYES: normal conjunctivae, no scleral icterus ENT: external ear and nose normal, MMM NECK: trachea midline RESPIRATORY: clear to auscultation bilaterally with diminished breath sounds throughout, no crackles, rales or wheezes, normal respiratory effort CARDIOVASCULAR: regular rate and rhythm, S1 and 2 heard without murmurs, gallops or rubs, no JVD, no peripheral edema CHEST: inspection of chest was normal GASTROINTESTINAL: soft, nontende but there is a fullness to the RUQ area to palpation with ?hepatomegaly, no guarding. MUSCULOSKELETAL: generalized weakness, she can sit up independently on the bedside, head is normocephalic and atraumatic SKIN: warm and dry NEUROLOGIC: CN 2-12 grossly intact, no sensory deficit, normal cognition, normal speech, no tremor PSYCHIATRIC: alert cooperative and oriented to person, place and time. Results & Data Results & Data ([place]) Vital Signs (Past 12 Hours) Vital Signs Temp Pulse Pulse Resp BP BP Pulse Ox 10/24/21 11:37 36.7 C 59 L 20 93/55 L 96 10/24/21 10:30 10/24/21 09:03 36.7 C 60 18 100/59 L 98 10/24/21 09:15 58 L 10/24/21 08:00 10/24/21 08:15 94 10/24/21 08:15 88 L 10/24/21 07:39 36.6 C 60 18 109/50 L 92 10/24/21 03:43 36.9 C 56 L 18 97/52 L 94 O2 Del Method O2 Flow Rate 10/24/21 11:37 Nasal Cannula 2 10/24/21 10:30 Nasal Cannula 2 10/24/21 09:03 Nasal Cannula 2 10/24/21 09:15 10/24/21 08:00 Nasal Cannula 2 10/24/21 08:15 Nasal Cannula 2 10/24/21 08:15 Room Air 10/24/21 07:39 Nasal Cannula 2 10/24/21 03:43 Nasal Cannula 1.0 Laboratory Results [facility] 10/24/21 06:19 Sodium 137 Potassium 3.6 Chloride 97 L Carbon Dioxide 35 H BUN 16 Creatinine 0.56 L Glucose 88 Calcium 8.7 Medications Administered Current Inpatient Medications Acetaminophen (Acetaminophen 325 Mg Tab) 650 mg PO Q4H PRN PRN Reason: Pain or Fever Stop: 11/17/21 15:11 Acyclovir (Acyclovir 400 Mg Tab) 400 mg PO [facility] Stop: 11/17/21 20:59 Last Admin: 10/24/21 08:05 Dose: 400 mg Aspirin (Aspirin 81 Mg Ectab) 81 mg PO [facility] Stop: 11/18/21 08:59 Last Admin: 10/24/21 08:04 Dose: 81 mg Cyanocobalamin (Cyanocobalamin (B-12) 500 Mcg Tablet) 1,000 mcg PO DAILY [facility] Stop: 11/18/21 08:59 Last Admin: 10/24/21 08:03 Dose: Not Given Dexamethasone (Dexamethasone 4 Mg Tab) 10 mg PO Th@0830 [facility] Stop: 11/24/21 08:29 Escitalopram Oxalate (Escitalopram Oxalate 10 Mg Tab) [facility] [place] Stop: 11/18/21 08:59 Last Admin: 10/24/21 08:04 Dose: 10 mg Famotidine (Famotidine 10 Mg Tablet) 10 mg PO BID PRN PRN Reason: Heartburn Stop: 11/17/21 15:08 Last Admin: 10/24/21 06:33 Dose: 10 mg Furosemide (Furosemide 80 Mg Tab) 80 mg PO BID17 [facility] Stop: 11/23/21 16:59 Heparin Sodium (Porcine) (Heparin Sod 5,000 Unit/0.5 Ml Vial) 5,000 units SQ Q8 [facility] Stop: 11/17/21 21:59 Last Admin: 10/24/21 06:05 Dose: 5,000 units Melatonin (Melatonin 3 Mg Tab) 3 mg PO HS PRN PRN Reason: Sleep Stop: 11/17/21 21:39 Nitroglycerin (Nitroglycerin Sl 0.4 Mg/Tab Tab) 0.4 mg SL UD PRN PRN Reason: Chest Pain Stop: 11/17/21 15:11 Pantoprazole Sodium (Pantoprazole 40 Mg Tab) 40 mg PO QAM [facility] Stop: 11/18/21 08:59 Last Admin: 10/24/21 06:04 Dose: 40 mg Polyethylene Glycol (Polyethylene (Miralax) 17 Gm Pack) 17 gm PO DAILY PRN PRN Reason: Constipation Stop: 11/20/21 11:22 Last Admin: 10/22/21 07:57 Dose: 17 gm Prochlorperazine (Prochlorperazine Maleate 10 Mg Tab) 10 mg PO Q6 PRN PRN Reason: Nausea Stop: 11/17/21 17:26 Spironolactone (Spironolactone 25 Mg Tab) 25 mg PO BID [facility] Stop: 11/18/21 20:59 Last Admin: 10/24/21 08:04 Dose: 25 mg Vitamin D (Cholecalciferol 1,000 Units 25 Mcg Tab) 1,000 units PO DAILY [facility] Stop: 11/18/21 08:59 Last Admin: 10/24/21 08:03 Dose: Not Given
[2021-10-24] MEDS ORDERED: CALCIUM CARBONATE 500 MG CHEWABLE TAB PO PRN (14:28)
--- NOTE | 2021-10-24 16:26 | Gastrointestinal Consultation ---
Date of Consultation October 24, 2021 Assessment & Plan (1) Congestive heart failure: (2) Nausea: Pt is a 76 yo female w multiple myeloma on chemotherapy, seen for decreased appetite, weight loss, nausea, and diarrhea. DDx: congestive colopathy, gastroparesis, mucositis (chemo related), PUD, gastritis. - PPI daily - EGD tomorrow by Dr. Amos - Anesthesia consult for risk eval prior to EGD - Stool cx and Cdiff - Reglan 5mg qHS Supervising Physician Co-Signing Physician Notes Attg add: I interviewed and examined pt, reviewed chart and labs. Pt with nausea, lack of appetite. DDX = congestive enteropathy, amyloid/gastroparesis, viral infxn related to cytoxan. History of Present Illness Reason for Consultation: Low appetite, nausea, diarrhea Requesting Physician: Dr. Lucia Harrison Attending Physician: Dr. Alaina Amos History of Present Illness PT is a 76 yo female w multiple myeloma currently on chemo (Cytoxan, Velcade, Darzalex), admitted for CHF, pleural effusion w/o thoracentesis on 10/19/2021. GI consulted as pt had been c/o poor appetite, nausea, diarrhea. Pt reports these symptoms have started since about 1 week prior to admission. When she tries to eat, she feels nauseous, but no vomiting. Lost 10 lbs in the last 1 month. Denies dysphagia, odynophagia, heartburn or reflux. In regards to her stools, she may have 2-3 loose stools a day, then felt constipated for several days ago, given laxative and now having about 2 loose stools a day. No rectal bleeding, no nocturnal diarrhea. Last EGD 2016: hiatal hernia Last colonoscopy 2016: hemorrhoids, diverticulosis CT abd/pelvis w contrast: 1. The bladder wall appears markedly thickened. Correlate with clinical findings and urinalysis for evidence of cystitis. 2. Marked cardiomegaly with evidence of cardiac dysfunction 3. Moderate pleural effusions with dependent consolidation. 4. The liver is enlarged and heterogeneous common with marked dilatation of the IVC and hepatic veins and periportal edema. Correlate clinically for evidence of congestive hepatopathy. 5. Splenomegaly. 6. There is anasarca of the body wall, mesenteric edema, and a small volume of abdominopelvic ascites. 7. Heterogeneous and likely fibroid uterus. Allergies Allergy/AdvReac Type Severity Reaction Status Date / Time No Known Allergies Allergy Unknown ` Verified 10/18/21 12:27 Home Medications Medication Instructions Recorded Confirmed Type cholecalciferol (vitamin D3) 25 25 mcg PO DAILY 05/14/21 10/18/21 History mcg (1,000 unit) capsule (Vitamin D3) cyanocobalamin (vitamin B-12) 1,000 mcg PO DAILY 05/14/21 10/18/21 History 1,000 mcg tablet (Vitamin B-12) furosemide 40 mg tablet 120 mg PO QAM 05/14/21 10/18/21 History omeprazole 20 mg tablet,delayed 20 mg PO QAM 05/14/21 10/18/21 History release potassium chloride 20 mEq See Rx Instructions .Route .COMPLEX 05/14/21 10/18/21 History tablet,extended release(part/cryst) doxycycline hyclate 100 mg capsule 100 mg PO BID #60 caps 05/22/21 10/18/21 Rx acyclovir 400 mg tablet 400 mg PO [facility] 10/18/21 10/18/21 History dexamethasone 4 mg tablet 10 mg PO WK 10/18/21 10/18/21 History escitalopram oxalate 10 mg tablet 10 mg PO QAM 10/18/21 10/18/21 History metolazone 2.5 mg tablet 2.5 mg PO WK 10/18/21 10/18/21 History prochlorperazine maleate 10 mg 10 mg PO Q6 PRN Nausea 10/18/21 10/18/21 History tablet spironolactone 25 mg tablet 25 mg PO QAM 10/18/21 10/18/21 History aspirin 81 mg tablet,delayed 81 mg PO QAM #30 tabs 10/23/21 Rx release nitroglycerin 0.4 mg sublingual 0.4 mg sublingual UD PRN chest 10/23/21 Rx tablet (Nitrostat) pain #14 tabs spironolactone 25 mg tablet 25 mg PO BID #60 tabs 10/23/21 Rx Patient History Medical History Cardiac amyloidosis Chronic diastolic heart failure GI bleed Multiple myeloma Surgical History History of colonoscopy History of tubal ligation Family History Father , 50s Stroke Mother , 90 Coronary heart disease Social History Smoking Status: Never smoker Second Hand Exposure: No; Hx Alcohol Use: No Hx Substance Use: No Preferred Language: Kazakh 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: Effective Laboratory Clerk Required: No Beliefs That Will Affect Care: None marital status: Current Living Situation: Spouse Current Living Situation Comment: with Feels Safe at Home: Yes Safety Concerns: Feels Safe At This Time Assistive Devices: Walker Review of Systems Review of Systems: All systems reviewed & are unremarkable except as noted in HPI & below Physical Exam Constitutional: WD/WN, vitals as above well groomed, cooperative and comfortable Eyes: PERRL, conjunctivae normal, anicteric sclerae ENMT: external ear and nose normal, oropharynx normal Neck: + JVD Respiratory: normal respiratory effort, lungs clear to auscultation Dimished bases Cardiovascular: RRR, no murmur, no edema Gastrointestinal (Abdomen): normal bowel sounds, soft, nontender, no hepatosplenomegaly Skin: no rashes, warm and dry no jaundice Psychiatric: A+Ox3, euthymic affect Lymphatic: no lymphedema Results & Data ([facility]) Vital Signs (Past 12 Hours) Vital Signs Temp Pulse Pulse Resp BP BP Pulse Ox 10/24/21 16:03 36.8 C 59 L 18 86/49 L 94 10/24/21 15:07 60 10/24/21 11:37 36.7 C 59 L 20 93/55 L 96 10/24/21 10:30 10/24/21 09:03 36.7 C 60 18 100/59 L 98 10/24/21 09:15 58 L 10/24/21 08:00 10/24/21 08:15 94 10/24/21 08:15 88 L 10/24/21 07:39 36.6 C 60 18 109/50 L 92 O2 Del Method O2 Flow Rate 10/24/21 16:03 Nasal Cannula 2 10/24/21 15:07 10/24/21 11:37 Nasal Cannula 2 10/24/21 10:30 Nasal Cannula 2 10/24/21 09:03 Nasal Cannula 2 10/24/21 09:15 10/24/21 08:00 Nasal Cannula 2 10/24/21 08:15 Nasal Cannula 2 10/24/21 08:15 Room Air 10/24/21 07:39 Nasal Cannula 2
[2021-10-24] MEDS: FUROSEMIDE 80 MG TAB PO SCH (16:28)
[2021-10-24] MEDS: METOCLOPRAMIDE HCL INJ 5 MG/ML 2 ML VIAL IV SCH (20:33)
[2021-10-25] MEDS: HEPARIN SOD 5,000 UNIT/0.5 ML VIAL SQ SCH (05:21)
[2021-10-25 06:17] LABS: Hematocrit (blood only) 37.3 % (34.1-44.9); Hemoglobin 12.3 g/dl (12.0-16.0); Mean Corpuscular Hemoglobin 31.6 pg (25.0-34.0); Mean Corpuscular Volume 95.9 fL (80.0-100.0); Mean Platelet Volume 12.3 fL (9.4-12.3); Platelet Count 178 K/uL (130-400); RDW Coefficient of Variation 17.4 % (11.5-14.5); RDW Standard Deviation 58.6 fL (36.4-46.3); Red Blood Count 3.89 M/uL (3.93-5.22); White Blood Count 4.42 K/ul (4.8-10.8)
[2021-10-25 06:44] LABS: Calcium 8.7 mg/dl (8.5-10.1); Creatinine Clr Calc Pharmacy 80.4 ml/min; Est GFR (African American) 109.7 ml/min; Est GFR (Non-African American) 94.7 ml/min; Potassium 3.5 mmol/L (3.5-5.1)
[2021-10-25] MEDS ORDERED: dexAMETHasone 4 MG TAB PO SCH ×2 (08:30→09:15)
[2021-10-25] MEDS: ACYCLOVIR 400 MG TAB PO SCH ×2 (08:40→21:17)
[2021-10-25] MEDS: ESCITALOPRAM OXALATE 10 MG TAB PO SCH (08:41)
[2021-10-25] MEDS: ASPIRIN 81 MG ECTAB PO SCH (08:41)
[2021-10-25] MEDS: CHOLECALCIFEROL 1,000 UNITS 25 MCG TAB PO SCH (08:41)
[2021-10-25] MEDS: FUROSEMIDE 80 MG TAB PO SCH ×2 (08:41→17:50)
[2021-10-25] MEDS: SPIRONOLACTONE 25 MG TAB PO SCH (08:41)
[2021-10-25] MEDS: CYANOCOBALAMIN (B-12) 500 MCG TABLET PO SCH (08:41)
[2021-10-25] MEDS: PANTOprazole 40 MG TAB PO SCH (08:42)
--- NOTE | 2021-10-25 10:18 | Anesthesiology Consultation ---
Date of Service October 25, 2021 Assessment & Plan (1) Encounter for pre-operative examination: Chart Review Chart Review: Acceptable Risk for Surgery and Patient NOT seen in Pre Admission Testing Consults Requested none History Surgery Operation Date: 10/25/21 17:00 Proposed Procedures p Esophagogastroduodenoscopy Dr Trimble - Alaina Amos MD Height/Weight Height: 5 ft 3 in Weight: 54.9 kg Allergies Allergy/AdvReac Type Severity Reaction Status Date / Time No Known Allergies Allergy Unknown ` Verified 10/18/21 12:27 Medications Home Medications Medication Instructions Recorded Confirmed Last Taken cholecalciferol (vitamin D3) 25 25 mcg PO DAILY 05/14/21 10/18/21 10/18/21 mcg (1,000 unit) capsule (Vitamin D3) cyanocobalamin (vitamin B-12) 1,000 mcg PO DAILY 05/14/21 10/18/21 10/18/21 1,000 mcg tablet (Vitamin B-12) furosemide 40 mg tablet 120 mg PO QAM 05/14/21 10/18/21 10/18/21 omeprazole 20 mg tablet,delayed 20 mg PO QAM 05/14/21 10/18/21 10/18/21 release potassium chloride 20 mEq See Rx Instructions .Route .COMPLEX 05/14/21 10/18/21 10/18/21 tablet,extended release(part/cryst) doxycycline hyclate 100 mg capsule 100 mg PO BID #60 caps 05/22/21 10/18/21 10/18/21 acyclovir 400 mg tablet 400 mg PO AMHS 10/18/21 10/18/21 10/18/21 dexamethasone 4 mg tablet 8 mg PO WK 10/18/21 10/25/21 10/18/21 escitalopram oxalate 10 mg tablet 10 mg PO QAM 10/18/21 10/18/21 10/18/21 metolazone 2.5 mg tablet 2.5 mg PO WK 10/18/21 10/18/21 10/13/21 prochlorperazine maleate 10 mg 10 mg PO Q6 PRN Nausea 10/18/21 10/18/21 Unknown tablet spironolactone 25 mg tablet 25 mg PO QAM 10/18/21 10/18/21 10/18/21 aspirin 81 mg tablet,delayed 81 mg PO QAM #30 tabs 10/23/21 Unknown release nitroglycerin 0.4 mg sublingual 0.4 mg sublingual UD PRN chest 10/23/21 Unknown tablet (Nitrostat) pain #14 tabs spironolactone 25 mg tablet 25 mg PO BID #60 tabs 10/23/21 Unknown Active Medications Generic Name Dose Route Start Last Admin Trade Name Freq PRN Reason Stop Dose Admin Acyclovir 400 mg 10/18/21 21:00 10/25/21 08:40 Acyclovir 400 Mg Tab PO 11/17/21 20:59 400 mg AMHS RYANN Administration Aspirin 81 mg 10/19/21 09:00 10/25/21 08:41 Aspirin 81 Mg Ectab PO 11/18/21 08:59 81 mg QAM RYANN Administration Cyanocobalamin 1,000 mcg 10/19/21 09:00 10/25/21 08:41 Cyanocobalamin (B-12) 500 Mcg Tablet PO 11/18/21 08:59 1,000 mcg DAILY RYANN Administration Dexamethasone 8 mg 10/25/21 09:15 10/25/21 09:24 Dexamethasone 4 Mg Tab PO 11/24/21 09:14 Not Given Th@0830 RYANN Escitalopram Oxalate 10 mg 10/19/21 09:00 10/25/21 08:41 Escitalopram Oxalate 10 Mg Tab PO 11/18/21 08:59 10 mg QAM RYANN Administration Famotidine 10 mg 10/18/21 15:09 10/24/21 06:33 Famotidine 10 Mg Tablet PO 11/17/21 15:08 10 mg BID PRN Administration Heartburn Furosemide 80 mg 10/24/21 17:00 10/25/21 08:41 Furosemide 80 Mg Tab PO 11/23/21 16:59 80 mg BID17 RYANN Administration Heparin Sodium (Porcine) 5,000 units 10/18/21 22:00 10/25/21 05:21 Heparin Sod 5,000 Unit/0.5 Ml Vial SQ 11/17/21 21:59 5,000 units Q8 RYANN Administration Metoclopramide HCl 5 mg 10/24/21 21:00 10/24/21 20:33 Metoclopramide Hcl Inj 5 Mg/Ml 2 Ml Vial IV 11/23/21 20:59 5 mg HS RYANN Administration Pantoprazole Sodium 40 mg 10/19/21 09:00 10/25/21 08:42 Pantoprazole 40 Mg Tab PO 11/18/21 08:59 40 mg QAM RYANN Administration Polyethylene Glycol 17 gm 10/21/21 11:23 10/22/21 07:57 Polyethylene (Miralax) 17 Gm Pack PO 11/20/21 11:22 17 gm DAILY PRN Administration Constipation Spironolactone 25 mg 10/19/21 21:00 10/25/21 08:41 Spironolactone 25 Mg Tab PO 11/18/21 20:59 25 mg BID RYANN Administration Vitamin D 1,000 units 10/19/21 09:00 10/25/21 08:41 Cholecalciferol 1,000 Units 25 Mcg Tab PO 11/18/21 08:59 1,000 units DAILY RYANN Administration Past Medical History Medical History Cardiac amyloidosis Chronic diastolic heart failure GI bleed Multiple myeloma Past Family History Family History Father , 50s Stroke Mother , 90 Coronary heart disease Past Surgical History Surgical History History of colonoscopy History of tubal ligation Social History Smoking Status: Never smoker Hx Alcohol Use: No Hx Substance Use: No substance use type: does not use Physical Exam Vital Signs Last Vital Signs Temp 97.7 F 10/25/21 07:33 Pulse 58 L 10/25/21 09:58 Resp 18 10/25/21 07:33 BP 104/68 10/25/21 09:58 Pulse Ox 92 10/25/21 09:58 O2 Del Method 10/25/21 09:58 O2 Flow Rate 2 10/25/21 09:58 Testing Laboratory Results 10/25/21 05:54 10/25/21 05:54 PT 11.8 Seconds (9.0-12.0) 10/18/21 11:18 INR 1.1 (0.9-1.1) 10/18/21 11:18 APTT 24.8 Seconds (21.0-31.0) 10/18/21 11:18 Urine Color Dark Yellow 10/18/21 11:57 Urine Appearance Clear (Clear) 10/18/21 11:57 Urine pH 6.0 (4.5-7.5) 10/18/21 11:57 Ur Specific [place] 1.020 (1.000-1.030) 10/18/21 11:57 Urine Protein Negative (Negative) 10/18/21 11:57 Urine Glucose (UA) Negative (Negative) 10/18/21 11:57 Urine Ketones Negative (Negative) 10/18/21 11:57 Urine Nitrite Negative (Negative) 10/18/21 11:57 Ur Leukocyte Esterase Negative (Negative) 10/18/21 11:57 10/19/21 09:54 Gram Stain - Final Pleural Fluid Aerobic and Anaerobic Culture - Final No growth 10/18/21 11:18 Aerobic Blood Culture - Final Blood No growth in Aerobic bottle after 5 days. Anaerobic Blood Culture - Final No growth in Anaerobic bottle after 5 days. 10/18/21 11:20 Aerobic Blood Culture - Final Blood No growth in Aerobic bottle after 5 days. Anaerobic Blood Culture - Final No growth in Anaerobic bottle after 5 days. 10/19/21 09:54 Acid Fast Bacilli Smear - Final Pleural Fluid Electrocardiogram Date: 10/18/21 Findings: + NSR @ (with PACs)
--- NOTE | 2021-10-25 10:32 | Gastroenterology Progress Note ---
Date of Service October 25, 2021 Assessment & Plan (1) Congestive heart failure: (2) Nausea: Plan: Pt is a 76 yo female w multiple myeloma on chemotherapy, seen for decreased appetite, weight loss, nausea, and diarrhea. DDx: congestive colopathy, gastroparesis, mucositis (chemo related), viral/fungal infection, PUD, gastritis. - PPI daily - EGD today by Dr. Amos - Anesthesia consulted for risk eval prior to EGD - Reglan 5mg qHS Admission and Anticipated Discharge Date Admission Date: October 18, 2021 Supervising Physician Co-Signing Physician Notes ATtg add: I interviewed and examined pt, reviewed chart and labs. EGD today. Subjective Pt reports mild nausea, no vomiting, no abd pain Review of Systems Review of Systems: All systems reviewed & are unremarkable except as noted in HPI & below Physical Exam Constitutional: WD/WN, vitals as above well groomed, cooperative and comfortable Eyes: PERRL, conjunctivae normal, anicteric sclerae ENMT: external ear and nose normal, oropharynx normal Respiratory: normal respiratory effort, lungs clear to auscultation Cardiovascular: RRR, no murmur, no edema Gastrointestinal (Abdomen): normal bowel sounds, soft, nontender, no hepatosplenomegaly Skin: no rashes, warm and dry no jaundice Psychiatric: A+Ox3, euthymic affect Lymphatic: no lymphedema Results & Data ([facility]) Vital Signs (Past 12 Hours) Vital Signs Temp Pulse Pulse Pulse Resp BP Pulse Ox 10/25/21 10:20 36.7 C 63 16 111/56 L 97 10/25/21 10:19 10/25/21 09:58 58 L 104/68 92 10/25/21 07:33 36.5 C 59 L 18 94/56 L 91 10/25/21 06:56 48 L 10/25/21 03:43 36.5 C 72 18 97/56 L 90 10/24/21 23:00 10/24/21 23:49 36.6 C 58 L 16 83/52 L 94 O2 Del Method O2 Flow Rate 10/25/21 10:20 Nasal Cannula 2 10/25/21 10:19 Nasal Cannula 2 10/25/21 09:58 Nasal Cannula 2 10/25/21 07:33 Nasal Cannula 2 10/25/21 06:56 10/25/21 03:43 07/27/22 23:00 Nasal Cannula 2 10/24/21 23:49 Nasal Cannula 2
--- NOTE | 2021-10-25 10:46 | History & Physical Report ---
Date of Service October 25, 2021 Assessment & Plan Admission and Anticipated Discharge Date Admission Date: October 18, 2021 History of Present Illness Primary Care Provider: Rosendo Boyce DO Nausea CV: RRR Resp: CTA Abd: soft A/p: EGD Allergies Allergy/AdvReac Type Severity Reaction Status Date / Time No Known Allergies Allergy Unknown ` Verified 10/18/21 12:27 Home Medications Medication Instructions Recorded Confirmed Type cholecalciferol (vitamin D3) 25 25 mcg PO DAILY 05/14/21 10/18/21 History mcg (1,000 unit) capsule (Vitamin D3) cyanocobalamin (vitamin B-12) 1,000 mcg PO DAILY 05/14/21 10/18/21 History 1,000 mcg tablet (Vitamin B-12) furosemide 40 mg tablet 120 mg PO QAM 05/14/21 10/18/21 History omeprazole 20 mg tablet,delayed 20 mg PO QAM 05/14/21 10/18/21 History release potassium chloride 20 mEq See Rx Instructions .Route .COMPLEX 05/14/21 10/18/21 History tablet,extended release(part/cryst) doxycycline hyclate 100 mg capsule 100 mg PO BID #60 caps 05/22/21 10/18/21 Rx acyclovir 400 mg tablet 400 mg PO AMHS 10/18/21 10/18/21 History dexamethasone 4 mg tablet 8 mg PO WK 10/18/21 10/25/21 History escitalopram oxalate 10 mg tablet 10 mg PO QAM 10/18/21 10/18/21 History metolazone 2.5 mg tablet 2.5 mg PO WK 10/18/21 10/18/21 History prochlorperazine maleate 10 mg 10 mg PO Q6 PRN Nausea 10/18/21 10/18/21 History tablet spironolactone 25 mg tablet 25 mg PO QAM 10/18/21 10/18/21 History aspirin 81 mg tablet,delayed 81 mg PO QAM #30 tabs 10/23/21 Rx release nitroglycerin 0.4 mg sublingual 0.4 mg sublingual UD PRN chest 10/23/21 Rx tablet (Nitrostat) pain #14 tabs spironolactone 25 mg tablet 25 mg PO BID #60 tabs 10/23/21 Rx Past Med/Surg History Medical History Cardiac amyloidosis Chronic diastolic heart failure GI bleed Multiple myeloma Surgical History History of colonoscopy History of tubal ligation Family History Father , 50s Stroke Mother , 90 Coronary heart disease Social History Smoking Status: Never smoker Second Hand Exposure: No; Hx Alcohol Use: No Hx Substance Use: No Preferred Language: Japanese 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: Effective 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: No Beliefs That Will Affect Care: None marital status: Current Living Situation: Spouse Current Living Situation Comment: with Feels Safe at Home: Yes Safety Concerns: Feels Safe At This Time Assistive Devices: Walker Results & Data Results & Data ([facility]) Vital Signs (Past 12 Hours) Vital Signs Temp Pulse Pulse Pulse Resp BP Pulse Ox 10/25/21 10:20 36.7 C 63 16 111/56 L 97 10/25/21 10:19 10/25/21 09:58 58 L 104/68 92 10/25/21 07:33 36.5 C 59 L 18 94/56 L 91 10/25/21 06:56 48 L 10/25/21 03:43 36.5 C 72 18 97/56 L 90 10/24/21 23:00 10/24/21 23:49 36.6 C 58 L 16 83/52 L 94 O2 Del Method O2 Flow Rate 10/25/21 10:20 Nasal Cannula 2 10/25/21 10:19 Nasal Cannula 2 10/25/21 09:58 Nasal Cannula 2 10/25/21 07:33 Nasal Cannula 2 10/25/21 06:56 10/25/21 03:43 10/24/21 23:00 Nasal Cannula 2 10/24/21 23:49 Nasal Cannula 2 Code Status & VTE Plan VTE Prophylaxis Plan VTE Prophylaxis will be ordered: Yes
[2021-10-25] MEDS ORDERED: PROPOFOL IV EMULSION 10 MG/ML 20 ML VIAL IV ONE (11:11)
[2021-10-25] MEDS ORDERED: LIDOCAINE 2% MPF LOCAL 5 ML VIAL INFIL ONE (11:11)
[2021-10-25] MEDS ORDERED: MIDAZOLAM HCL 1 MG/ML 2ML VIAL ONE (11:12)
[2021-10-25] MEDS ORDERED: KETAMINE 50 MG/5 ML SYRINGE ONE (11:12)
[2021-10-25] MEDS ORDERED: PANTOprazole 80 MG in DEXTROSE 5% 100 ML IV ONE (11:46)
[2021-10-25] MEDS ORDERED: PANTOPRAZOLE BOLUS/DRIP 1 EACH IV STA (11:46)
--- NOTE | 2021-10-25 12:16 | Anesthesiology Progress Note ---
Date of Service October 25, 2021 Anesthesia Post Procedure Vital Signs Vital Signs: Temp Pulse Pulse Pulse Resp BP Pulse Ox 10/25/21 12:01 56 L 16 97/51 L 97 10/25/21 11:46 56 L 16 91/44 L 92 10/25/21 10:20 98.1 F 63 16 111/56 L 97 10/25/21 10:19 10/25/21 09:58 58 L 104/68 92 10/25/21 07:33 97.7 F 59 L 18 94/56 L 91 10/25/21 06:56 48 L 10/25/21 03:43 97.7 F 72 18 97/56 L 90 10/24/21 23:00 10/24/21 23:49 97.9 F 58 L 16 83/52 L 94 10/24/21 22:20 57 L 10/24/21 20:00 10/24/21 18:16 97.7 F 63 18 84/55 L 96 10/24/21 16:25 58 L 92/46 L 10/24/21 16:03 98.2 F 59 L 18 86/49 L 94 10/24/21 15:07 60 O2 Del Method O2 Flow Rate 10/25/21 12:01 Nasal Cannula 2 10/25/21 11:46 Nasal Cannula 2 10/25/21 10:20 Nasal Cannula 2 10/25/21 10:19 Nasal Cannula 2 10/25/21 09:58 Nasal Cannula 2 10/25/21 07:33 Nasal Cannula 2 10/25/21 06:56 10/25/21 03:43 10/24/21 23:00 Nasal Cannula 2 10/24/21 23:49 Nasal Cannula 2 10/24/21 22:20 10/24/21 20:00 Nasal Cannula 2 10/24/21 18:16 Nasal Cannula 2 10/24/21 16:25 10/24/21 16:03 Nasal Cannula 2 10/24/21 15:07 Pain Intensity Abdomen: Pain Intensity: 4 Transfer of Care Handoff Completed per policy Notes Mental Status: alert / awake / arousable and participated in evaluation Patient Amnestic to Procedure: Yes Nausea / Vomiting: adequately controlled Pain: adequately controlled Airway Patency, RR, SpO2: stable & adequate BP & HR: stable & adequate Hydration State: stable & adequate Anesthetic Complications: no major complications apparent and Pt Satisfied with anesthetic care
--- NOTE | 2021-10-25 12:33 | GI REPORT ---
Patient Name: Anel Hogue Procedure Date: 10/25/2021 10:57 AM Date of : 1945 Admit Type: Inpatient Age: 76 Gender: Female Attending MD: Alaina Amos MD Procedure: Upper GI endoscopy Providers: Alaina Amos MD Referring MD: Lucia Harrison Do Indications: Nausea Medicines: See the Anesthesia note for documentation of the administered medications Complications: No immediate complications. Estimated Blood Loss: Estimated blood loss: none. Procedure: Pre-Anesthesia Assessment: - ASA Grade Assessment: IV - A patient with severe systemic disease that is a constant threat to life. After obtaining informed consent, the endoscope was passed under direct vision. Throughout the procedure, the patient's blood pressure, pulse, and oxygen saturations were monitored continuously. The Endoscope was introduced through the mouth, and advanced to the fourth part of duodenum. The upper GI endoscopy was accomplished without difficulty. The patient tolerated the procedure well. Findings: There was a mild web at the UES. The GE junction was at 30 cm. There was a large hiatal hernia (hill 4). The esophagus was normal. There was a soft adherent clot with brisk oozing seen in the hiatal hernia sac, in the fundus of the stomach, noted on retroflexion. A single TTS clip was placed on the bleeding site. There continued to be brisk oozing, and a Padlock OTSC clip was placed on polypectomy site with hemostasis. There was mild patchy edema of the body of the stomach, and multiple venous lakes. Biopsies taken from the stomach with moderate self limited oozing. The antrum was normal. The duodenum was normal. Biopsies taken from throughout the duodenum. Recommendation: - Discharge patient to monitored bed. Clears today, then full liquids tomorrow if hgb stable. PPI gtt today and continue for 48 hours. Follow hgb daily and consider rescope if hgb falls > 2. Follow up bx results. Hold ASA and heparin for 3 days, and then resume if hgb stable. Davis Dale MD 10/25/2021 12:32:55 PM This report has been signed electronically. Note Initiated On: 10/25/2021 10:57 AM Number of Addenda: 0 I attest to the content of the Intraoperative Record and orders documented therein, exceptions below {[id number]}
--- NOTE | 2021-10-25 13:26 | Hospitalist Progress Note ---
Date of Service October 25, 2021 Assessment & Plan (1) Acute on chronic diastolic (congestive) heart failure: Plan: - in the setting of cardiac amyloidosis with significant third spacing. - Cardiology consultation. - I's and O's Daily weights. - Echocardiogram. - Significant and large pleural effusions - s/p thora with pulm on right and left 10/19/2021 - PT/OT eval - recommending rehab now - respiratory status improved - 95% on RA - discontinued IV lasix - started on 80mg lasix PO BID - monitor electrolytes and BP -will monitor for continued diuretic effect as the GI tract is swollen which may interfere with absorption. (2) Pleural effusion: Plan: - bilateral - likely due to CHF - these appear to be chronic and have been present on prior CXR with similar size - IV diuretics as above - Thoracentesis bilaerally performed by pulm on 10/19 and path negative for malignancy - repeat CXR 10/20/2021 with redemonstration of bilateral pleural effusions -cont diuretic therapy. (3) Multiple myeloma: Plan: IgG kappa 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 No proteinuria and splenomegaly known. She is taking daratumumab every 4 weeks Velcade (bortezomib) added in June 19 and cyclophosphamide (Cytoxan) with last infusion on 09/27 Decadron lowered from 10mg weekly to 8mg weekly. She began having worsening nausea and diarrhea over the past two weeks as well as reflux symptoms PPI and H2 blockers were adjusted and diet changes to include bland diet were recommended Still, patient has lost weight as she is not eating much Concern with 10 lb weight loss over the last month. GI consulted for thoughts on this. Cont supportive care with antireflux meds and antiemetics Patient to follow-up with primary oncologist as an outpatient-last seen 09/13 (4) PUD (peptic ulcer disease): Plan: PPI drip for 48 hours. Holding aspirin for 3 days assess for response to scheduled Reglan qHS f/u path report from multiple biopsies taken (5) Dyspepsia: Plan: 2/2 peptic ulcer disease. Patient on PPI, cont to monitor response. (6) Weakness: Plan: Likely multifactorial including malnutrition and prolonged hospitalization. - continue to work with PT/OT as patient is anxious about going home (7) Malnutrition: Plan: Ongoing weight loss and food avoidance with diarrhea and dry heaving for two weeks. May be related to PUD. Indigestion uncontrolled and persistent nausea. She is on doxy and acyclovir and chemotherapy which may have also added to GI side effects and indirect weight loss. Steroids may have contributed to ulcer formation. Worsening malignancy is also in the differential, however, she was recently told she was disease-free (report not confirmed in the records). This is not an exclusive differential diagnosis. Cont with treatment for PUD and monitor weight and nutrition. DVT proph Heparin and aspirin held in setting of bleeding ulcer. Full Code Dispo-to encompass no earlier than Friday. I spoke with daughter, Radha, by phone and we reviewed the case in detail. All questions were answered. Lucia Harrison DO [facility] Hospitalist Admission and Anticipated Discharge Date Admission Date: October 18, 2021 Subjective Patient is a 76-year-old female with a past medical history of cardiac amyloidosis, paroxysmal atrial tachycardia, multiple myeloma presenting to the hospital with complaints of worsening shortness of breath with exertional activity as well as weakness and tiredness. Found to be in CHF exacerbation in the setting of bilateral pleural effusions and pulmonary edema in the setting of HFpEF from cardiac amyloidosis. Elevated troponin likely in the setting of demand ischemia with CHF exacerbation, no ECG changes for ischemia. Cardiology consulted for recommendations. IV lasix initiated. Pulm consulted and performed right and left thoracentesis 10/19/2021 with transudative fluid likely from CHF. Path was negative for malignancy Pt is persistently fatigued and weak despite treatment during this hospital stay including diuresis. She is not short of breath and denies chest pain. She has persistent nausea and food avoidance. She reports ongoing diarrhea including two loose watery stools at home daily for the past two weeks. She also reports a 10 lb weight loss in the last month and reports this is likely from not eating. She has multiple myeloma that is known. Today she underwent upper endoscopy that revealed a stomach ulcer. A clip was placed and multiple biopsies were taken. PPI drip was started and she is on clear liquids. Feels slightly better but may have some indigestion present, agreed to adding one dose of pepcid at this time. Review of Systems Review of Systems: All systems were reviewed and negative except as indicated in subjective above. Physical Exam Physical Exam: CONSTITUTIONAL: WNWD, vitals as above, generally fatigued, weak appearing. EYES: normal conjunctivae, no scleral icterus ENT: external ear and nose normal, MMM NECK: trachea midline RESPIRATORY: clear to auscultation bilaterally with diminished breath sounds throughout, no crackles, rales or wheezes, normal respiratory effort CARDIOVASCULAR: regular rate and rhythm, S1 and 2 heard without murmurs, gallops or rubs, no JVD, no peripheral edema CHEST: inspection of chest was normal GASTROINTESTINAL: soft, NT, ND, no guarding. MUSCULOSKELETAL: generalized weakness, she can sit up independently on the bedside, head is normocephalic and atraumatic SKIN: warm and dry NEUROLOGIC: CN 2-12 grossly intact, no sensory deficit, normal cognition, normal speech, no tremor PSYCHIATRIC: alert cooperative and oriented to person, place and time. Results & Data Results & Data ([facility]) Vital Signs (Past 12 Hours) Vital Signs Temp Pulse Pulse Pulse Resp BP BP 10/25/21 12:35 36.8 C 68 18 92/48 L 10/25/21 12:16 57 L 16 96/52 L 10/25/21 12:01 56 L 16 97/51 L 10/25/21 11:46 56 L 16 91/44 L 10/25/21 10:20 36.7 C 63 16 111/56 L 10/25/21 10:19 10/25/21 09:58 58 L 104/68 10/25/21 07:33 36.5 C 59 L 18 94/56 L 10/25/21 06:56 48 L 10/25/21 03:43 36.5 C 72 18 97/56 L Pulse Ox O2 Del Method O2 Flow Rate 10/25/21 12:35 93 Nasal Cannula 2 10/25/21 12:16 96 Nasal Cannula 2 10/25/21 12:01 97 Nasal Cannula 2 10/25/21 11:46 92 Nasal Cannula 2 10/25/21 10:20 97 Nasal Cannula 2 10/25/21 10:19 Nasal Cannula 2 10/25/21 09:58 92 Nasal Cannula 2 10/25/21 07:33 91 Nasal Cannula 2 10/25/21 06:56 10/25/21 03:43 90 Laboratory Results Short CBC 10/25/21 Range/Units 05:54 WBC 4.42 L (4.8-10.8) K/ul Hgb 12.3 (12.0-16.0) g/dl Hct 37.3 (34.1-44.9) % Plt Count 178 (130-400) K/uL BMP 10/25/21 05:54 Sodium 136 Potassium 3.5 Chloride 97 L Carbon Dioxide 34 H BUN 15 Creatinine 0.50 L Glucose 83 Calcium 8.7 Medications Administered Current Inpatient Medications Acetaminophen (Acetaminophen 325 Mg Tab) 650 mg PO Q4H PRN PRN Reason: Pain or Fever Stop: 11/17/21 15:11 Acyclovir (Acyclovir 400 Mg Tab) 400 mg PO AMHS RYANN Stop: 11/17/21 20:59 Last Admin: 10/25/21 08:40 Dose: 400 mg Calcium Carbonate (Calcium Carbonate 500 Mg Chewable Tab) 1,000 mg PO Q6H PRN PRN Reason: Indigestion Stop: 11/23/21 14:27 Cyanocobalamin (Cyanocobalamin (B-12) 500 Mcg Tablet) 1,000 mcg PO DAILY RYANN Stop: 11/18/21 08:59 Last Admin: 10/25/21 08:41 Dose: 1,000 mcg Dexamethasone (Dexamethasone 4 Mg Tab) 8 mg PO Th@0830 RYANN Stop: 11/24/21 09:14 Last Admin: 10/25/21 09:24 Dose: Not Given Escitalopram Oxalate (Escitalopram Oxalate 10 Mg Tab) 10 mg PO QAM RYANN Stop: 11/18/21 08:59 Last Admin: 10/25/21 08:41 Dose: 10 mg Famotidine (Famotidine 10 Mg Tablet) 10 mg PO BID PRN PRN Reason: Heartburn Stop: 11/17/21 15:08 Last Admin: 10/24/21 06:33 Dose: 10 mg Furosemide (Furosemide 80 Mg Tab) 80 mg PO BID17 RYANN Stop: 11/23/21 16:59 Last Admin: 10/25/21 08:41 Dose: 80 mg Heparin Sodium (Porcine) (Heparin Sod 5,000 Unit/0.5 Ml Vial) 5,000 units SQ Q8 RYANN Stop: 11/17/21 21:59 Last Admin: 10/25/21 05:21 Dose: 5,000 units Pantoprazole Sodium 40 mg/ (Dextrose) 100 mls @ 20 mls/hr IV Q5H RYANN Stop: 11/24/21 12:14 Melatonin (Melatonin 3 Mg Tab) 3 mg PO HS PRN PRN Reason: Sleep Stop: 11/17/21 21:39 Metoclopramide HCl (Metoclopramide Hcl Inj 5 Mg/Ml 2 Ml Vial) 5 mg IV HS RYANN Stop: 11/23/21 20:59 Last Admin: 10/24/21 20:33 Dose: 5 mg Nitroglycerin (Nitroglycerin Sl 0.4 Mg/Tab Tab) 0.4 mg SL UD PRN PRN Reason: Chest Pain Stop: 11/17/21 15:11 Polyethylene Glycol (Polyethylene (Miralax) 17 Gm Pack) 17 gm PO DAILY PRN PRN Reason: Constipation Stop: 11/20/21 11:22 Last Admin: 10/22/21 07:57 Dose: 17 gm Prochlorperazine (Prochlorperazine Maleate 10 Mg Tab) 10 mg PO Q6 PRN PRN Reason: Nausea Stop: 11/17/21 17:26 Promethazine HCl (Promethazine Hcl 25 Mg Tab) 25 mg PO Q6H PRN PRN Reason: n/v Stop: 11/23/21 14:29 Spironolactone (Spironolactone 25 Mg Tab) 25 mg PO BID RYANN Stop: 11/18/21 20:59 Last Admin: 10/25/21 08:41 Dose: 25 mg Vitamin D (Cholecalciferol 1,000 Units 25 Mcg Tab) 1,000 units PO DAILY RYANN Stop: 11/18/21 08:59 Last Admin: 10/25/21 08:41 Dose: 1,000 units
[2021-10-25] MEDS: PANTOprazole 40 MG in DEXTROSE 5% 100 ML IV SCH ×3 (13:30→22:23)
[2021-10-25] MEDS ORDERED: FAMOTIDINE 20 MG in SYRINGE 3 ML IV ONE (14:15)
[2021-10-25] MEDS ORDERED: SODIUM CHLORIDE 0.9% 500 ML IV SCH (18:15)
--- NOTE | 2021-10-25 19:45 | Procedure Note ---
Procedure Note Date of Service October 25, 2021 Note EGD showed ulcer with clot and oozing in fundus - this was clipped. I suspect nausea is related to portal gastropathy/CHF induced gastroparesis. DDX is broad, including acid peptic disease --- possibly aggravated by meds, including doxy and aldactone. DDX may also include amyloid related to MM. PPI gtt for ulcer, hold antiplt andanti coag for 2-3 days. Assess response to IV reglan q HS. Follow up path from EGD. Coding
[2021-10-25] MEDS: METOCLOPRAMIDE HCL INJ 5 MG/ML 2 ML VIAL IV SCH (21:17)
[2021-10-26] MEDS: PANTOprazole 40 MG in DEXTROSE 5% 100 ML IV SCH ×4 (03:24→20:07)
[2021-10-26] MEDS: PROMETHAZINE HCL 25 MG TAB PO PRN ×2 (06:29→20:07)
[2021-10-26 06:50] LABS: Hematocrit (blood only) 38.5 % (34.1-44.9); Hemoglobin 12.6 g/dl (12.0-16.0); Mean Corpuscular Hemoglobin 31.7 pg (25.0-34.0); Mean Corpuscular Hgb Conc 32.7 g/dL (32.0-36.0); Mean Platelet Volume 12.3 fL (9.4-12.3); Platelet Count 164 K/uL (130-400); RDW Coefficient of Variation 17.5 % (11.5-14.5); RDW Standard Deviation 60.2 fL (36.4-46.3); Red Blood Count 3.97 M/uL (3.93-5.22); White Blood Count 4.61 K/ul (4.8-10.8)
[2021-10-26 07:42] LABS: BUN Creatinine Ratio 24.1 (10-20); Calcium 8.3 mg/dl (8.5-10.1); Creatinine Clr Calc Pharmacy 74.5 ml/min; Est GFR (Non-African American) 92.3 ml/min; Potassium 3.3 mmol/L (3.5-5.1)
[2021-10-26] MEDS ORDERED: POTASSIUM CHLORIDE CRTAB 20 MEQ TABCR PO STA (09:25)
[2021-10-26] MEDS: ACYCLOVIR 400 MG TAB PO SCH (09:29)
[2021-10-26] MEDS: ESCITALOPRAM OXALATE 10 MG TAB PO SCH (09:29)
--- NOTE | 2021-10-26 09:37 | Gastroenterology Progress Note ---
Date of Service October 26, 2021 Assessment & Plan (1) Congestive heart failure: (2) Nausea: Plan: Pt is a 76 yo female w multiple myeloma on chemotherapy, seen for decreased appetite, weight loss, nausea, and diarrhea. DDx: congestive colopathy, gastroparesis, mucositis (chemo related), viral/fungal infection, PUD, gastritis. EGD 10/25 showed oozing ulcer in fundus area, clipped. Blood ct stable, wo tree s/s of GI bleeding - Will advance diet to full liquids, ok to advance to soft tomorrow if blood ct stable wo bleeding signs - Monitor blood ct and transfuse prn - Continue current antiemetic regimen - PPI gtt x another 48hrs, then transition to PO BID dosing - Avoid NSAIDs - Hold ASA and Heparin x 3 days, then resume if blood ct stable - Recall GI over weekend if drop in blood ct or s/s of GI bleeding Admission and Anticipated Discharge Date Admission Date: October 18, 2021 Supervising Physician Co-Signing Physician Notes I performed a history and physical examination of the patient today, including specifically on physical exam - soft abdomen. I have discussed the patient's management with the advanced practitioner. Please refer to the nurse practitioner's note for the documented findings and plan of care. No evidence of overt GI bleeding. EGD today. Subjective Pt reports some abd cramping last night. BM this AM, dark but not black nor did she see any rectal bleeding. Nausea improved w Phenergan this AM. Review of Systems Review of Systems: All systems reviewed & are unremarkable except as noted in HPI & below Physical Exam Constitutional: WD/WN, vitals as above well groomed, cooperative and comfortable Eyes: PERRL, conjunctivae normal, anicteric sclerae ENMT: external ear and nose normal, oropharynx normal Respiratory: normal respiratory effort, lungs clear to auscultation Cardiovascular: RRR, no murmur, no edema Gastrointestinal (Abdomen): normal bowel sounds, soft, nontender, no hepatosplenomegaly Skin: no rashes, warm and dry no jaundice Psychiatric: A+Ox3, euthymic affect Lymphatic: no lymphedema Results & Data ([facility]) Vital Signs (Past 12 Hours) Vital Signs Temp Pulse Pulse Pulse Resp BP Pulse Ox 10/26/21 08:00 36.5 C 68 18 107/64 92 10/26/21 05:10 60 10/26/21 03:05 36.5 C 65 18 109/68 93 10/25/21 23:54 36.8 C 61 18 92/51 L 93 O2 Del Method O2 Flow Rate 10/26/21 08:00 Nasal Cannula 2 10/26/21 05:10 10/26/21 03:05 Nasal Cannula 2 10/25/21 23:54 Nasal Cannula 2
--- NOTE | 2021-10-26 14:11 | Hospitalist Progress Note ---
Date of Service October 26, 2021 Assessment & Plan (1) Acute on chronic diastolic (congestive) heart failure: Plan: - in the setting of cardiac amyloidosis with significant third spacing. - Significant and large pleural effusions on imaging - Cardiology consultation. - Echocardiogram. - s/p thora with pulm on right and left 10/19/2021 - PT/OT eval - recommending rehab now - respiratory status improved - 95% on RA - discontinued IV lasix - started on 80mg lasix PO BID, however, remained hypotensive so holding this altogether for now to allow BP to drift up again Outpatient review of records reveals a trend of 115-120 systolic on average. - monitor electrolytes and BP (2) Pleural effusion: Plan: - bilateral - likely due to CHF - these appear to be chronic and have been present on prior CXR with similar size - IV diuretics as above - Thoracentesis bilaerally performed by pulm on 10/19 and path negative for malignancy - repeat CXR 10/20/2021 with redemonstration of bilateral pleural effusions -cont diuretic therapy. (3) Multiple myeloma: Plan: IgG kappa 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 No pr oteinuria and splenomegaly known. She is taking daratumumab every 4 weeks Velcade (bortezomib) added in June 19 and cyclophosphamide (Cytoxan) with last infusion on 09/27 Decadron lowered from 10mg weekly to 8mg weekly. She began having worsening nausea and diarrhea over the past two weeks as well as reflux symptoms PPI and H2 blockers were adjusted and diet changes to include bland diet were re commended Still, patient has lost weight as she is not eating much Concern with 10 lb weight loss over the last month. GI consulted for thoughts on this. Cont supportive care with antireflux meds a nd antiemetics Patient to follow-up with primary oncologist as an outpatient-last seen 09/13 (4) PUD (peptic ulcer disease): Plan: PPI drip for 72 hours. Holding aspirin for 3 days assess for response to scheduled Reglan qHS f/u path report from multiple biopsies taken (5) Dyspepsia: Plan: 2/2 peptic ulcer disease. Patient on PPI, cont to monitor response. (6) Weakness: Plan: Likely multifactorial including malnutrition and prolonged hospitalization. - continue to work with PT/OT as patient is anxious about going home (7) Malnutrition: Plan: Ongoing weight loss and food avoidance with diarrhea and dry heaving for two weeks. May be related to PUD. Indigestion uncontrolled and persistent nausea. She is on doxy and acyclovir and chemotherapy which may have also added to GI side effects and indirect weight loss. Steroids may have contributed to ulcer formation. Worsening malignancy is also in the differential, however, she was recently told she was disease-free (report not confirmed in the records). This is not an exclusive differential diagnosis. Cont with treatment for PUD and monitor weight and nutrition. DVT proph Heparin and aspirin held in setting of bleeding ulcer. Full Code Dispo-to [facility] no earlier than Friday I spoke with daughter, Radha, by phone and we reviewed the case in detail. All questions were answered. DO Lindsay Mcfadden Hospitalist Admission and Anticipated Discharge Date Admission Date: October 18, 2021 Subjective Patient is a 76-year-old female with a past medical history of cardiac amyloidosis, paroxysmal atrial tachycardia, multiple myeloma presenting to the hospital with worsening shortness of breath with exertional activity as well as weakness and fatigue. Found to be in CHF exacerbation in the setting of bilate ral pleural effusions and pulmonary edema in the setting of HFpEF from cardiac amyloidosis. Elevated troponin likely in the setting of demand ischemia with CHF exacerbation, no ECG changes for ischemia. Cardiology consulted for recommendations. IV lasix initiated. Pulm consulted and performed right and left thoracentesis 10/19/2021 with transudative fluid likely from CHF. Path was negative for malignancy. Persistently fatigued and weak despite treatment during this hospital stay including diuresis. She is not short of breath and denies chest pain. She has persistent nausea and food avoidance. She reports ongoing diarrhea including two loose watery stools at home daily for the past two weeks. She also reports a 10 lb weight loss in the last month and reports this is likely from not eating. She has multiple myeloma that is known. GI consulted and upper endoscopy that revealed a stomach ulcer. A clip was placed on a bleeding vessel, and multiple biopsies were taken. PPI drip was started yesterday and she is improving today. Some nausea this morning improved wtih phenergan. No rectal bleeding overnight. Tolerating full liquids. Review of Systems Review of Systems: All systems were reviewed and negative except as indicated in subjective above. Physical Exam Physical Exam: CONSTITUTIONAL: WNWD, vitals as above, NAD EYES: normal conjunctivae, no scleral icterus ENT: external ear and nose normal, MMM NECK: trachea midline RESPIRATORY: clear to auscultation bilaterally with diminished breath sounds throughout, no crackles, rales or wheezes, normal respiratory effort CARDIOVASCULAR: regular rate and rhythm, S1 and 2 heard without murmurs, gallops or rubs, no JVD, no peripheral edema CHEST: inspection of chest was normal GASTROINTESTINAL: soft, NT, ND, no guarding. MUSCULOSKELETAL: generalized weakness, she can sit up independently on the bedside, head is normocephalic and atraumatic SKIN: warm and dry NEUROLOGIC: CN 2-12 grossly intact, no sensory deficit, normal cognition, normal speech, no tremor PSYCHIATRIC: alert cooperative and oriented to person, place and time. Results & Data Results & Data ([facility]) Vital Signs (Past 12 Hours) Vital Signs Temp Pulse Pulse Pulse Resp BP Pulse Ox 10/26/21 08:00 10/26/21 11:52 36.6 C 60 18 99/59 L 94 10/26/21 08:00 60 10/26/21 08:00 36.5 C 68 18 107/64 92 10/26/21 05:10 60 10/26/21 03:05 36.5 C 65 18 109/68 93 O2 Del Method O2 Flow Rate 10/26/21 08:00 Nasal Cannula 2 10/26/21 11:52 Nasal Cannula 2 10/26/21 08:00 10/26/21 08:00 Nasal Cannula 2 10/26/21 05:10 10/26/21 03:05 Nasal Cannula 2 Laboratory Results Short CBC 10/26/21 Range/Units 06:12 WBC 4.61 L (4.8-10.8) K/ul Hgb 12.6 (12.0-16.0) g/dl Hct 38.5 (34.1-44.9) % Plt Count 164 (130-400) K/uL BMP 10/26/21 06:12 Sodium 136 Potassium 3.3 L Chloride 98 Carbon Dioxide 32 BUN 13 Creatinine 0.54 L Glucose 87 Calcium 8.3 L Medications Administered Current Inpatient Medications Acetaminophen (Acetaminophen 325 Mg Tab) 650 mg PO Q4H PRN PRN Reason: Pain or Fever Stop: 11/17/21 15:11 Acyclovir (Acyclovir 400 Mg Tab) 400 mg PO AMHS RYANN Stop: 11/17/21 20:59 Last Admin: 10/26/21 09:29 Dose: 400 mg Calcium Carbonate (Calcium Carbonate 500 Mg Chewable Tab) 1,000 mg PO Q6H PRN PRN Reason: Indigestion Stop: 11/23/21 14:27 Escitalopram Oxalate (Escitalopram Oxalate 10 Mg Tab) 10 mg PO QAM RYANN Stop: 11/18/21 08:59 Last Admin: 10/26/21 09:29 Dose: 10 mg Pantoprazole Sodium 40 mg/ (Dextrose) 100 mls @ 20 mls/hr IV Q5H RYANN Stop: 11/24/21 12:14 Last Admin: 10/26/21 09:27 Dose: 8 mg/hr, 20 mls/hr Melatonin (Melatonin 3 Mg Tab) 3 mg PO HS PRN PRN Reason: Sleep Stop: 11/17/21 21:39 Metoclopramide HCl (Metoclopramide Hcl Inj 5 Mg/Ml 2 Ml Vial) 5 mg IV HS [facility] Stop: 11/23/21 20:59 Last Admin: 10/25/21 21:17 Dose: 5 mg Polyethylene Glycol (Polyethylene (Miralax) 17 Gm Pack) 17 gm PO DAILY PRN PRN Reason: Constipation Stop: 11/20/21 11:22 Last Admin: 10/22/21 07:57 Dose: 17 gm Promethazine HCl (Promethazine Hcl 25 Mg Tab) 25 mg PO Q6H PRN PRN Reason: n/v Stop: 11/23/21 14:29 Last Admin: 10/26/21 06:29 Dose: 25 mg
[2021-10-26] MEDS: SUCRALFATE 1 GM/10 ML UDC PO SCH ×2 (17:57→20:07)
[2021-10-26] MEDS: MELATONIN 3 MG TAB PO PRN (20:07)
[2021-10-26] MEDS: METOCLOPRAMIDE HCL INJ 5 MG/ML 2 ML VIAL IV SCH (20:08)
[2021-10-27] MEDS: PANTOprazole 40 MG in DEXTROSE 5% 100 ML IV SCH ×4 (02:00→16:07)
[2021-10-27] MEDS ORDERED: MAGNESIUM SULFATE / D5W 1 GM/100 ML BAG IV ONE (02:17)
[2021-10-27] MEDS ORDERED: POTASSIUM CHLORIDE CRTAB 20 MEQ TABCR PO STA (02:17)
[2021-10-27] MEDS ORDERED: ALBUMIN 25% 12.5 GM/50 ML VIAL IV ONE (02:31)
[2021-10-27 03:22] LABS: Basophils # (auto) 0.02 K/uL (0-0.2); Basophils % (auto) 0.5 %; Eosinophils # (auto) 0.07 K/uL (0-0.50); Eosinophils % (auto) 1.8 %; Hematocrit (blood only) 37.1 % (34.1-44.9); Hemoglobin 12.1 g/dl (12.0-16.0); Immature Granulocytes # (auto) 0.01 K/uL (0.00-0.02); Immature Granulocytes % (auto) 0.3 %; Lymphocytes # (auto) 0.27 K/uL (1.2-3.4); Lymphocytes % (auto) 6.9 %; Mean Corpuscular Hemoglobin 31.8 pg (25.0-34.0); Mean Corpuscular Hgb Conc 32.6 g/dL (32.0-36.0); Mean Corpuscular Volume 97.4 fL (80.0-100.0); Mean Platelet Volume 11.9 fL (9.4-12.3); Monocytes # (auto) 0.61 K/uL (0.24-0.82); Monocytes % (auto) 15.5 %; Neutrophils # (auto) 2.96 K/uL (1.4-6.5); Platelet Count 152 K/uL (130-400); RDW Coefficient of Variation 17.6 % (11.5-14.5); RDW Standard Deviation 60.1 fL (36.4-46.3); Red Blood Count 3.81 M/uL (3.93-5.22); White Blood Count 3.94 K/ul (4.8-10.8)
[2021-10-27 03:44] LABS: BUN Creatinine Ratio 23.6 (10-20); Calcium 8.2 mg/dl (8.5-10.1); Creatinine Clr Calc Pharmacy 73.1 ml/min; Est GFR (African American) 106.3 ml/min; Est GFR (Non-African American) 91.8 ml/min; Magnesium 1.8 mg/dl (1.7-2.4); Potassium 3.9 mmol/L (3.5-5.1)
[2021-10-27 06:56] LABS: BUN Creatinine Ratio 22.8 (10-20); Calcium 8.2 mg/dl (8.5-10.1); Creatinine Clr Calc Pharmacy 70.5 ml/min; Est GFR (African American) 105.1 ml/min; Est GFR (Non-African American) 90.7 ml/min; Potassium 4.1 mmol/L (3.5-5.1)
[2021-10-27] MEDS: ESCITALOPRAM OXALATE 10 MG TAB PO SCH (08:12)
[2021-10-27] MEDS: SUCRALFATE 1 GM/10 ML UDC PO SCH ×4 (08:12→20:52)
--- NOTE | 2021-10-27 13:51 | Hospitalist Progress Note ---
Date of Service October 27, 2021 Assessment & Plan (1) Acute on chronic diastolic (congestive) heart failure: Plan: - in the setting of cardiac amyloidosis with significant third spacing. - Significant and large pleural effusions on imaging - Cardiology consultation. - Echocardiogram. - s/p thora with pulm on right and left 10/19/2021 - PT/OT eval - recommending rehab now - respiratory status improved - 95% on RA - discontinued IV lasix - started on 80mg lasix PO BID, however, remained hypotensive so holding this altogether for now to allow BP to drift up again Outpatient review of records reveals a trend of 115-120 systolic on average. - monitor electrolytes and BP 10/27: Last dose of lasix was given 48 hrs ago. Pt has gained 2kg, has increased dyspnea on exertion and feels weak. CXR with increased fluid presence. Reinstituting Lasix 40mgIV BID17 now. Cont to monitor daily standing weights. Ins/Outs (2) Pleural effusion: Plan: - bilateral - likely due to CHF - these appear to be chronic and have been present on prior CXR with similar size - IV diuretics as above - Thoracentesis bilaterally performed by pulm on 10/19 and path negative for malignancy - repeat CXR 10/20/2021 with redemonstration of bilateral pleural effusions -restart diuretic therapy. (3) Multiple myeloma: Plan: IgG kappa 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 No proteinuria and splenomegaly known. She is taking daratumumab every 4 weeks Velcade (bortezomib) added in June 19 and cyclophosphamide (Cytoxan) with last infusion on 09/27 Decadron lowered from 10mg weekly to 8mg weekly. She began having worsening nausea and diarrhea over the past two weeks as well as reflux symptoms PPI and H2 blockers were adjusted and diet changes to include bland diet were recommended Still, patient has lost weight as she is not eating much Concern with 10 lb weight loss over the last month. GI consulted for thoughts on this. Cont supportive care with antireflux meds and antiemetics Patient to follow-up with primary oncologist as an outpatient-last seen 09/13 (4) PUD (peptic ulcer disease): Plan: PPI drip for 72 hours. with worsening heart failure picture, will transition this to PO PPI now. appears that nausea is improved Cont carafate Holding aspirin for 3 days assess for response to scheduled Reglan qHS f/u path report from multiple biopsies taken (5) Dyspepsia: Plan: 2/2 peptic ulcer disease. Patient on PPI, cont to monitor response. (6) Weakness: Plan: Likely multifactorial including malnutrition and prolonged hospitalization. - continue to work with PT/OT as patient is anxious about going home (7) Malnutrition: Plan: Ongoing weight loss and food avoidance with diarrhea and dry heaving for two weeks. Likely related to PUD as this is improving now with treatment. Nausea is controlled and diet is being advanced. Doxycycline for amyloid is held. No further steroids at this time. Cont to monitor intake any. DVT proph Heparin and aspirin held in setting of bleeding ulcer. Full Code Dispo-to rehab when clinically improved. Lucia Harrison DO [facility] Hospitalist Admission and Anticipated Discharge Date Admission Date: October 18, 2021 Subjective Patient is a 76-year-old female with a past medical history of cardiac amyloidosis, paroxysmal atrial tachycardia, multiple myeloma presenting to the hospital with worsening shortness of breath with exertional activity as well as weakness and fatigue. Found to be in CHF exacerbation in the setting of bilateral pleural effusions and pulmonary edema in the setting of HFpEF from cardiac amyloidosis. Elevated troponin likely in the setting of demand ischemia with CHF exacerbation, no ECG changes for ischemia. Cardiology consulted for recommendations. IV lasix initiated. Pulm consulted and performed right and left thoracentesis 10/19/2021 with transudative fluid likely from CHF. Path was negative for malignancy. Persistently fatigued and weak despite treatment during this hospital stay including diuresis. She is not short of breath and denies chest pain. She has persistent nausea and food avoidance. She reports ongoing diarrhea including two loose watery stools at home daily for the past two weeks. She also reports a 10 lb weight loss in the last month and reports this is likely from not eating. She has multiple myeloma that is known. GI consulted and upper endoscopy that revealed a stomach ulcer. A clip was placed on a bleeding vessel, and multiple biopsies were taken. PPI drip was started on 10/25. Nausea that occurred yesterday is improved and she reports no nausea today. Some indigestion reported but she just had just eaten broth and a Boost shake. She is very weak today and reports that she is feeling shaky. She felt lightheaded when going to the bathroom earlier which was when the weakness and lightheadedness started and she feels more short of breath. Her blood sugar was checked and was 115. Orthostatic vitals were negative: Lying 97/60 HR 62, sitting 106/67 HR 69, standing 108/65 HR 70. Standing weight was 56.9kg, up from 55.7kg yesterday and 54.9kg the day before that CXR performed withcoarsening pulmonary edema and layering pleural effusions with progressive bibasilar consolidation Discussed the findings with the patient and her at the bedside. We called the kitchen together so she can order specifically what she felt she could tolerate with the diet change. Review of Systems Review of Systems: All systems were reviewed and negative except as indicated in subjective above. Physical Exam Physical Exam: CONSTITUTIONAL: WNWD, vitals as above, NAD EYES: normal conjunctivae, no scleral icterus ENT: external ear and nose normal, MMM NECK: trachea midline RESPIRATORY: clear to auscultation bilaterally with diminished breath sounds throughout, no crackles, rales or wheezes, normal respiratory effort CARDIOVASCULAR: regular rate and rhythm, S1 and 2 heard without murmurs, gallops or rubs, no JVD, no peripheral edema CHEST: inspection of chest was normal GASTROINTESTINAL: soft, NT, ND, no guarding. MUSCULOSKELETAL: generalized weakness, she can sit up independently on the bedside, head is normocephalic and atraumatic SKIN: warm and dry NEUROLOGIC: CN 2-12 grossly intact, no sensory deficit, normal cognition, normal speech, no tremor PSYCHIATRIC: alert cooperative and oriented to person, place and time. Results & Data Results & Data ([facility]) Vital Signs (Past 12 Hours) Vital Signs Temp Pulse Pulse Resp BP BP Pulse Ox 10/27/21 08:00 60 10/27/21 11:00 36.5 C 61 18 92/57 L 94 10/27/21 08:00 36.4 C L 61 18 111/70 96 10/27/21 02:58 36.4 C L 61 16 117/72 90 O2 Del Method O2 Flow Rate 10/27/21 08:00 10/27/21 11:00 Nasal Cannula 3 10/27/21 08:00 Nasal Cannula 3 10/27/21 02:58 Nasal Cannula 3 Laboratory Results Short CBC 10/27/21 Range/Units 02:56 WBC 3.94 L (4.8-10.8) K/ul Hgb 12.1 (12.0-16.0) g/dl Hct 37.1 (34.1-44.9) % Plt Count 152 (130-400) K/uL BMP 10/27/21 10/27/21 02:56 06:06 Sodium 135 L 136 Potassium 3.9 4.1 Chloride 100 101 Carbon Dioxide 31 31 BUN 13 13 Creatinine 0.55 L 0.57 L Glucose 81 90 Calcium 8.2 L 8.2 L Medications Administered Current Inpatient Medications Acetaminophen (Acetaminophen 325 Mg Tab) 650 mg PO Q4H PRN PRN Reason: Pain or Fever Stop: 11/17/21 15:11 Acyclovir (Acyclovir 400 Mg Tab) 400 mg PO AMHS [facility] Stop: 11/17/21 20:59 Last Admin: 10/26/21 09:29 Dose: 400 mg Calcium Carbonate (Calcium Carbonate 500 Mg Chewable Tab) 1,000 mg PO Q6H PRN PRN Reason: Indigestion Stop: 11/23/21 14:27 Escitalopram Oxalate (Escitalopram Oxalate 10 Mg Tab) 10 mg PO QAM [facility] Stop: 11/18/21 08:59 Last Admin: 10/27/21 08:12 Dose: 10 mg Pantoprazole Sodium 40 mg/ (Dextrose) 100 mls @ 20 mls/hr IV Q5H [facility] Stop: 11/24/21 12:14 Last Admin: 10/27/21 11:00 Dose: 8 mg/hr, 20 mls/hr Melatonin (Melatonin 3 Mg Tab) 3 mg PO HS PRN PRN Reason: Sleep Stop: 11/17/21 21:39 Last Admin: 10/26/21 20:07 Dose: 3 mg Metoclopramide HCl (Metoclopramide Hcl Inj 5 Mg/Ml 2 Ml Vial) 5 mg IV HS RYANN Stop: 11/23/21 20:59 Last Admin: 10/26/21 20:08 Dose: 5 mg Polyethylene Glycol (Polyethylene (Miralax) 17 Gm Pack) 17 gm PO DAILY PRN PRN Reason: Constipation Stop: 11/20/21 11:22 Last Admin: 10/22/21 07:57 Dose: 17 gm Promethazine HCl (Promethazine Hcl 25 Mg Tab) 25 mg PO Q6H PRN PRN Reason: n/v Stop: 11/23/21 14:29 Last Admin: 10/26/21 20:07 Dose: 25 mg Sucralfate (Sucralfate 1 Gm/10 Ml Udc) 1 gm PO QID RYANN Stop: 11/25/21 16:59 Last Admin: 10/27/21 12:20 Dose: 1 gm
--- NOTE | 2021-10-27 15:32 | XRay Report ---
XR chest 1V portable HISTORY: 76 years-old Female SOB with exertion, worse acute shortness of breath COMPARISON: 10/23/2021 TECHNIQUE: Portable AP view the chest FINDINGS: Cardiac silhouette is enlarged. Pulmonary possible surgical clips projected over the midline upper st omach. Vascular congestion with progressively worsened reticular interstitial opacities. No pneumotho rax. Layering pleural effusions with progressive bibasilar consolidation. The bones appear grossly in tact. IMPRESSION: 1. Cardiomegaly with coarsening pulmonary edema. 2. Layering pleural effusions with progressive bibasilar consolidation. ACT 112: Negative or not required by law. The above report was generated using voice recognition software. It may contain grammatical, syntax o r spelling errors. Electronically signed by: Jerzy Barton M.D. 10/27/2021 3:31 PM
[2021-10-27] MEDS: FUROSEMIDE 40 MG/4 ML VIAL IV SCH (18:25)
[2021-10-27] MEDS: MELATONIN 3 MG TAB PO PRN (20:51)
[2021-10-27] MEDS: METOCLOPRAMIDE HCL INJ 5 MG/ML 2 ML VIAL IV SCH (20:52)
[2021-10-27] MEDS: PANTOprazole 40 MG TAB PO SCH (20:55)
[2021-10-28] MEDS: SUCRALFATE 1 GM/10 ML UDC PO SCH ×5 (07:28→20:47)
[2021-10-28] MEDS: ESCITALOPRAM OXALATE 10 MG TAB PO SCH (07:29)
[2021-10-28] MEDS: PANTOprazole 40 MG TAB PO SCH ×2 (07:29→20:48)
[2021-10-28] MEDS: FUROSEMIDE 40 MG/4 ML VIAL IV SCH (07:38)
[2021-10-28 09:20] LABS: Calcium 8.4 mg/dl (8.5-10.1); Creatinine Clr Calc Pharmacy 83.8 ml/min; Est GFR (African American) 111.2 ml/min; Potassium 3.4 mmol/L (3.5-5.1)
[2021-10-28 09:32] LABS: Hemoglobin 12.2 g/dl (12.0-16.0); Mean Corpuscular Hemoglobin 31.7 pg (25.0-34.0); Mean Corpuscular Hgb Conc 32.1 g/dL (32.0-36.0); Mean Corpuscular Volume 98.7 fL (80.0-100.0); Mean Platelet Volume 11.8 fL (9.4-12.3); Platelet Count 125 K/uL (130-400); RDW Coefficient of Variation 17.8 % (11.5-14.5); RDW Standard Deviation 61.2 fL (36.4-46.3); Red Blood Count 3.85 M/uL (3.93-5.22); White Blood Count 5.13 K/ul (4.8-10.8)
[2021-10-28] MEDS ORDERED: POTASSIUM CHLORIDE CRTAB 20 MEQ TABCR PO STA (10:06)
--- NOTE | 2021-10-28 12:12 | Cardiology Progress Note ---
Date of Service October 28, 2021 Assessment & Plan (1) Acute combined systolic and diastolic CHF, NYHA class 3: (2) Elevated troponin: (3) Cardiac amyloidosis: (4) Multiple myeloma: (5) Sinus bradycardia: Plan I had a long discussion with the patient and also called her daughter Radha. I explained to them that there is no cure for amyloid heart disease. This is a component of multiple myeloma which is not directly treatable. The best we can do is manage her heart failure medically. The prognosis is generally poor. I think we can discontinue the IV Lasix and start her on oral. I started her on Lasix 80 mg p.o. twice daily however tomorrow we should reconsider decreasing that to 40 mg p.o. twice daily. She had been on Lasix 120 mg daily prior to admission. I also added Aldactone 12.5 mg twice daily. At home prior to admission she was on Aldactone 25 mg daily. Admission and Anticipated Discharge Date Admission Date: October 18, 2021 Subjective The patient is resting comfortably. No new cardiac complaints. Review of Systems Review of Systems: Review of Systems: See HPI for pertinent positives. All other 10 point review of systems are negative. Physical Exam Physical Exam: General: no acute distress and stated age Head: normocephalic, no masses, lesions, tenderness or abnormalities Eyes: conjunctiva are pink and non-injected, sclera clear Neck: supple, no adenopathy, no bruits, normal jugular venous pulse, no hepatojugular reflux Chest: normal shape and normal respiratory effort Lungs: clear to auscultation and percussion Cardiac Exam: - regular rate & rhythm, no murmurs gallops or rubs - normal S1, normal S2 Pulses: 2(+) throughout Abdomen: abdomen soft, non-tender, no abnormal masses and no hepatosplenomegaly Musculoskeletal: no gait disturbance, no joint inflammation, no deforming arthritis Extremities: no edema and no cyanosis Neuro: grossly normal exam Results & Data ([facility]) Vital Signs (Past 12 Hours) Vital Signs Temp Pulse Pulse Resp BP BP Pulse Ox 10/28/21 11:24 36.9 C 71 18 97/61 L 92 10/28/21 08:00 36.7 C 63 18 96/53 L 90 10/28/21 07:15 72 10/28/21 03:04 36.5 C 64 18 93/50 L 92 10/28/21 01:59 65 O2 Del Method O2 Flow Rate 10/28/21 11:24 Nasal Cannula 3 10/28/21 08:00 Nasal Cannula 3 10/28/21 07:15 10/28/21 03:04 Nasal Cannula 3 10/28/21 01:59 Laboratory Results Laboratory Results - last 24 hr 10/27/21 10/28/21 10/28/21 14:51 07:58 07:58 WBC 5.13 RBC 3.85 L Hgb 12.2 Hct 38.0 MCV 98.7 MCH 31.7 MCHC 32.1 RDW Std Deviation 61.2 H RDW Coeff of Nasir 17.8 H Plt Count 125 L MPV 11.8 Sodium 138 Potassium 3.4 L Chloride 100 Carbon Dioxide 31 Anion Gap 7 BUN 12 Creatinine 0.48 L Est Cr Clr Drug Dosing 83.8 Est GFR ( Amer) 111.2 Est GFR (Non-Af Amer) 96.0 BUN/Creatinine Ratio 25.0 H Glucose 101 H POC Glucose 115 H Calcium 8.4 L Medications Administered Current Inpatient Medications Acetaminophen (Acetaminophen 325 Mg Tab) 650 mg PO Q4H PRN PRN Reason: Pain or Fever Stop: 11/17/21 15:11 Acyclovir (Acyclovir 400 Mg Tab) 400 mg PO AMHS RYANN Stop: 11/17/21 20:59 Last Admin: 10/26/21 09:29 Dose: 400 mg Calcium Carbonate (Calcium Carbonate 500 Mg Chewable Tab) 1,000 mg PO Q6H PRN PRN Reason: Indigestion Stop: 11/23/21 14:27 Escitalopram Oxalate (Escitalopram Oxalate 10 Mg Tab) 10 mg PO QAM RYANN Stop: 11/18/21 08:59 Last Admin: 10/28/21 07:29 Dose: 10 mg Furosemide (Furosemide 40 Mg/4 Ml Vial) 40 mg IV [id number] RYANN Stop: 11/26/21 16:59 Last Admin: 10/28/21 07:38 Dose: 40 mg Melatonin (Melatonin 3 Mg Tab) 3 mg PO HS PRN PRN Reason: Sleep Stop: 11/17/21 21:39 Last Admin: 10/27/21 20:51 Dose: 3 mg Metoclopramide HCl (Metoclopramide Hcl Inj 5 Mg/Ml 2 Ml Vial) 5 mg IV HS RYANN Stop: 11/23/21 20:59 Last Admin: 10/27/21 20:52 Dose: 5 mg Pantoprazole Sodium (Pantoprazole 40 Mg Tab) 40 mg PO BID [facility] Stop: 11/26/21 20:59 Last Admin: 10/28/21 07:29 Dose: 40 mg Polyethylene Glycol (Polyethylene (Miralax) 17 Gm Pack) 17 gm PO DAILY PRN PRN Reason: Constipation Stop: 11/20/21 11:22 Last Admin: 10/22/21 07:57 Dose: 17 gm Promethazine HCl (Promethazine Hcl 25 Mg Tab) 25 mg PO Q6H PRN PRN Reason: n/v Stop: 11/23/21 14:29 Last Admin: 10/26/21 20:07 Dose: 25 mg Sucralfate (Sucralfate 1 Gm/10 Ml Udc) 1 gm PO QID [facility] Stop: 11/25/21 16:59 Last Admin: 10/28/21 07:28 Dose: 1 gm
[2021-10-28] MEDS: PROMETHAZINE HCL 25 MG TAB PO PRN (16:22)
[2021-10-28] MEDS ORDERED: HYDROCORTISONE SOD 100 MG in SYRINGE 0 ML IV STA (16:25)
--- NOTE | 2021-10-28 16:35 | Hospitalist Progress Note ---
Date of Service October 28, 2021 Assessment & Plan (1) Acute on chronic diastolic (congestive) heart failure: Plan: Per admitting service notes with addendum: - in the setting of cardiac amyloidosis with significant third spacing. - Significant and large pleural effusions on imaging - Cardiology consultation. - Echocardiogram. - s/p thora with pulm on right and left 10/19/2021 - PT/OT [facility] - recommending rehab now - respiratory status improved - 95% on RA - discontinued IV lasix - started on 80mg lasix PO BID, however, remained hypotensive so holding this altogether for now to allow BP to drift up again Outpatient review of records reveals a trend of 115-120 systolic on average. - monitor electrolytes and BP 10/28: Transition to Lasix 80 mg twice daily, Aldactone 12.5 mg twice daily Monitor diuresis Patient's blood pressure in the 90s, reports generalized weakness On Decadron 8 mg p.o. weekly, possible component of adrenal insufficiency, pending cortisol level 18 Start hydrocortisone 100 mg now, then 50 mg every 6 hours Monitor closely (2) Pleural effusion: Plan: - bilateral - likely due to CHF - these appear to be chronic and have been present on prior CXR with similar siz e - IV diuretics as above - Thoracentesis bilaterally performed by pulm on 10/19 and path negative for malignancy - repeat CXR 10/20/2021 with redemonstration of bilateral pleural effusions 10/28: Pains on 3 L of oxygen via nasal cannula Currently on p.o. Lasix and Aldactone Monitor closely (3) Multiple myeloma: Plan: IgG kappa 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 No proteinuria and splenomegaly known. She is taking daratumumab every 4 weeks Velcade (bortezomib) added in June 19 and cyclophosphamide (Cytoxan) with last infusion on 09/27 Decadron lowered from 10mg weekly to 8mg weekly. She began having worsening nausea and diarrhea over the past two weeks as well as reflux symptoms PPI and H2 blockers were adjusted and diet changes to include bland diet were recommended Still, patient has lost weight as she is not eating much Concern with 10 lb weight loss over the last month. GI consulted for thoughts on this. Cont supportive care with antireflux meds and antiemetics Patient to follow-up with primary oncologist as an outpatient-last seen 09/13 10/28: On chronic Decadron weekly for multiple myeloma Possible component of adrenal insufficiency, hydrocortisone dosing per above (4) PUD (peptic ulcer disease): Plan: PPI drip for 72 hours. with worsening heart failure picture, will transition this to PO PPI now. appears that nausea is improved Cont carafate Holding aspirin for 3 days assess for response to scheduled Reglan qHS f/u path report from multiple biopsies taken 10/28: Hemoglobin stable around 12 No signs of recurrence of GI bleed at this point Continue Protonix twice daily (5) Dyspepsia: Plan: 2/2 peptic ulcer disease. Patient on PPI, cont to monitor response. (6) Weakness: Plan: Likely multifactorial including malnutrition and prolonged hospitalization. - continue to work with PT/OT as patient is anxious about going home 10/28: Monitor response with stress dose hydrocortisone (7) Malnutrition: Plan: Ongoing weight loss and food avoidance with diarrhea and dry heaving for two weeks. Likely related to PUD as this is improving now with treatment. Nausea is controlled and diet is being advanced. Doxycycline for amyloid is held. DVT proph Heparin and aspirin held in setting of bleeding ulcer. Full Code Dispo-to rehab when clinically improved. plan of care discussed with patient in detail and at length all questions answered she is understanding, agreeable, comfortable with the plan of care Admission and Anticipated Discharge Date Admission Date: October 18, 2021 Subjective Follow-up for acute CHF, etc. Seen resting in bed, not in distress, on 3 L of oxygen via nasal cannula States she feels very weak, tired today especially with ambulating in the room No shortness of breath, chest pain, palpitations No other symptoms Review of Systems Review of Systems: all noted and negative except for above Physical Exam Physical Exam: General- oriented x 3, not in distress, speaks in sentences with no effort or accessory muscle use Eyes- anicteric Neck- no JVD Lungs-Mild Rales at the bases Heart- normal rate, regular rhythm; no murmurs Abdomen- normal bowel sounds, nondistended, soft, nontender Extremities- no pretibial edema, no calf tenderness Neuro- alert, oriented x 3; no gross focal neurologic deficits Skin- warm & dry Results & Data Results & Data ([facility]) Vital Signs (Past 12 Hours) Vital Signs Temp Pulse Pulse Resp BP Pulse Ox O2 Del Method 10/28/21 16:00 36.9 C 75 18 91/60 L 93 Nasal Cannula 10/28/21 15:48 Nasal Cannula 10/28/21 14:57 61 10/28/21 11:24 36.9 C 71 18 97/61 L 92 Nasal Cannula 10/28/21 08:00 36.7 C 63 18 96/53 L 90 Nasal Cannula 10/28/21 07:15 72 O2 Flow Rate 10/28/21 16:00 3 10/28/21 15:48 2 10/28/21 14:57 10/28/21 11:24 3 10/28/21 08:00 3 10/28/21 07:15
[2021-10-28] MEDS ORDERED: FUROSEMIDE 80 MG TAB PO SCH (17:00)
[2021-10-28] MEDS: SPIRONOLACTONE 12.5 MG TAB PO SCH (20:48)
[2021-10-28] MEDS: METOCLOPRAMIDE HCL INJ 5 MG/ML 2 ML VIAL IV SCH (20:49)
[2021-10-28] MEDS: HYDROCORTISONE SOD 50 MG in SYRINGE 0 ML IV SCH (22:41)
[2021-10-29] MEDS: HYDROCORTISONE SOD 50 MG in SYRINGE 0 ML IV SCH (04:30)
[2021-10-29] MEDS: PANTOprazole 40 MG TAB PO SCH ×2 (08:06→20:20)
[2021-10-29] MEDS: SPIRONOLACTONE 12.5 MG TAB PO SCH ×3 (08:07→21:09)
[2021-10-29] MEDS: ESCITALOPRAM OXALATE 10 MG TAB PO SCH (08:07)
[2021-10-29] MEDS: SUCRALFATE 1 GM/10 ML UDC PO SCH ×4 (08:12→20:21)
[2021-10-29] MEDS ORDERED: FUROSEMIDE 40 MG TAB PO SCH (09:00)
[2021-10-29 09:02] LABS: Calcium 8.5 mg/dl (8.5-10.1); Creatinine Clr Calc Pharmacy 80.4 ml/min; Est GFR (African American) 109.7 ml/min; Est GFR (Non-African American) 94.7 ml/min; Potassium 3.7 mmol/L (3.5-5.1)
[2021-10-29] MEDS ORDERED: FUROSEMIDE 80 MG TAB PO ONE (10:00)
--- NOTE | 2021-10-29 10:13 | Cardiology Progress Note ---
Date of Service October 29, 2021 Assessment & Plan (1) Acute heart failure with preserved ejection fraction (HFpEF): (2) Cardiac amyloidosis: (3) Multiple myeloma: (4) PUD (peptic ulcer disease): Plan: 76 year old female seen in cardiology follow up. 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 Patient also follows with cardiology at the [facility]. She is previously followed with hematology/oncology within the [facility] (Dr. Juan A Luevano), [facility], and most recently [facility]. Per review of her most recent hematology/oncology follow-up visit performed via telemedicine with [facility] 10/11/2021 salvage therapy using daratumumab with CyBorD based chemotherapy to continue for 6 months followed by single agent daratumumab. Recent lab studies had revealed normalization of kappa light chain level. Dating back to Jul, 2021 patient has been on an aggressive outpatient diuretic regimen with furosemide 40 mg tablets, 120 mg orally by mouth 2 times per day as well as spironolactone 12.5 mg daily. She had been tolerating this relatively well, with chronic relative hypotension, systolic blood pressures in the 90s. The patient's dose was subsequently reduced down to 120 mg daily (seemingly on her own without input from her providers, although this is difficult to discern at present) and developed progressive fluid retention. She presented to this institution, and on 10/19/2021, underwent bilateral thoracentesis yielding 1000 mL of pleural fluid from the left lung, and 1400 mL of pleural fluid from the right lung. She remains volume overloaded. Hospitalization further noted for abdominal discomfort, EGD 10/25/2021 yielded an ulcer in the area of her hiatal hernia which was clipped. Hemoglobin has been stable. There is concern with regards to her being hypotensive. 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 We will discontinue Solu-Cortef, as I do not believe she has adrenal insufficiency as a cause of her low blood pressure, and that this will further cause additional fluid retention. Start midodrine for blood pressure support. She received 40 mg of oral furosemide this morning has been transitioned from IV diuretic therapy yesterday, 10/28/2021. We will proceed with another 80 mg of oral furosemide this morning, and tomorrow we will transition her back to her previous outpatient furosemide dose of 120 mg 2 times per day, 7 AM, 1400. With noted past intolerance of torsemide. Overall prognosis is considered poor as is characteristic of this disease entity. She is not on a beta-deneen due to past bradycardia, and beta-deneen typically not well tolerated were proven to be of benefit in AL amyloid related cardiomyopathy. Furthermore, she is not on an BAHMAN inhibitor or angiotensin receptor deneen, as these treatments are not well-tolerated in this disease entity. Per patient's request, will update her by phone. Admission and Anticipated Discharge Date Admission Date: October 18, 2021 Subjective Mrs Hogue is seen in follow up of subjective shortness of breath, history of amyloid cardiomyopathy. She notes a stable degree of shortness of breath unchanged compared to yesterday. Telemetry reveals SR in the 60s to 70s. Remains on oxygen 3 L/min NC, and is not on supplemental oxygen as an outpatient. Review of Systems Review of Systems: All systems reviewed & are unremarkable except as noted in HPI & below Physical Exam Physical Exam: Temp Pulse Resp BP Pulse Ox O2 Del Method O2 Flow Rate 36.4 C L 72 17 99/61 L 90 3 10/29/21 07:51 10/29/21 07:51 10/29/21 07:51 10/29/21 07:51 10/29/21 07:51 10/29/21 07:51 10/29/21 07:51 Constitutional: + frail appearing Respiratory: Auscultation: + diminished lung sounds (decreased BS in the bases bilatterally); no rales Cardiovascular: RRR, no murmur, no edema Gastrointestinal (Abdomen): normal bowel sounds, soft, nontender, no hepatosplenomegaly Neurologic: PERRL, EOMI, accommodation nl, no face palsy, no dysarthria Results & Data ([facility]) Vital Signs (Past 12 Hours) Vital Signs Temp Pulse Pulse Resp BP BP Pulse Ox 10/29/21 07:51 36.4 C L 72 17 99/61 L 90 10/29/21 07:38 10/29/21 07:02 71 10/28/21 22:12 63 10/28/21 22:45 36.4 C L 68 20 96/58 L 91 O2 Del Method O2 Flow Rate 10/29/21 07:51 Nasal Cannula 3 10/29/21 07:38 2 10/29/21 07:02 10/28/21 22:12 10/28/21 22:45 Nasal Cannula 2.5 Laboratory Results Comprehensive Metabolic Panel 10/29/21 Range/Units 08:00 Sodium 139 (136-145) mmol/L Potassium 3.7 (3.5-5.1) mmol/L Chloride 101 (98-107) mmol/L Carbon Dioxide 34 H (21-32) mmol/L BUN 13 (6-23) mg/dl Creatinine 0.50 L (0.6-1.2) mg/dl Glucose 130 H (70-99(Fasting)) mg/dl Calcium 8.5 (8.5-10.1) mg/dl Intake and Output 10/28/21 10/29/21 10/29/21 22:59 06:59 14:59 Intake Total 240 / 540 Output Total 800 / 2200 400 / 2200 Balance -560 / -1660 -400 / -1660 Intake: Oral 240 / 540 Output: Urine 300 / 700 400 / 700 Urine Amount (Catheter) 500 / 1500 External 500 / 1500 Diagnostic Findings TTecho performed this hospital stay, 10/19/21, LVEF 45-50%, severe concentric LVH, severe biatrial enlargement , Moderate to severe TR
--- NOTE | 2021-10-29 10:28 | Hospitalist Progress Note ---
Date of Service October 29, 2021 Assessment & Plan (1) Acute on chronic diastolic (congestive) heart failure: Plan: Per admitting service notes with addendum: - in the setting of cardiac amyloidosis with significant third spacing. - Significant and large pleural effusions on imaging - s/p thora with pulm on right and left 10/19/2021 - PT/OT [facility] - recommending rehab now - respiratory status improved - 95% on RA 10/29: negative 1.6 L fluid balance overnight slowly diuresing discontinued IV lasix, Lasix increased to 120mg po BID, Aldactone 12.5mg po BID continued Midodrine 2.5mg QID started today Cardiology following discussed with Dr. Molina, patient's systolic BP runs in the 90s as outpatient Hydrocortisone discontinued, continue usual Decadron 8mg/week for Multiple Myeloma (2) Pleural effusion: Plan: - bilateral - likely due to CHF - these appear to be chronic and have been present on prior CXR with similar size - Thoracentesis bilaterally performed by pulm on 10/19 and path negative for malignancy - repeat CXR 10/20/2021 with redemonstration of bilateral pleural effusions 10/28: remains on 3 L of oxygen via nasal cannula Currently on p.o. Lasix and Aldactone Monitor closely (3) Multiple myeloma: Plan: IgG kappa 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 No proteinuria and splenomegaly known. She is taking daratumumab every 4 weeks Velcade (bortezomib) added in June 19 and cyclophosphamide (Cytoxan) with last infusion on 09/27 Decadron lowered from 10mg weekly to 8mg weekly. She began having worsening nausea and diarrhea over the past two weeks as well as reflux symptoms PPI and H2 blockers were adjusted and diet changes to include bland diet were recommended Still, patient has lost weight as she is not eating much Concern with 10 lb weight loss over the last month. GI consulted for thoughts on this. Cont supportive care with antireflux meds and antiemetics Patient to follow-up with primary oncologist as an outpatient-last seen 09/13 10/29: patient missed Decadron 8mg weekly last while admitted, will give dose Today (4) PUD (peptic ulcer disease): Plan: PPI drip for 72 hours. with worsening heart failure picture, will transition this to PO PPI now. appears that nausea is improved Cont carafate Holding aspirin path report from multiple biopsies (+) Amyloidosis 10/28: Hemoglobin stable ~12 x few days No signs of recurrence of GI bleed at this point Continue Protonix twice daily (5) Dyspepsia: Plan: 2/2 peptic ulcer disease. Patient on PPI resolved requested to advance diet to regular (6) Weakness: Plan: Likely multifactorial including malnutrition and prolonged hospitalization. - continue to work with PT/OT as patient is anxious about going home (7) Malnutrition: Plan: Ongoing weight loss and food avoidance with diarrhea and dry heaving for two weeks. Likely related to PUD as this is improving now with treatment. Nausea is controlled and diet is being advanced. Doxycycline for amyloid is held. DVT proph Heparin and aspirin held in setting of bleeding ulcer. Full Code Dispo-to rehab when clinically improved. plan of care discussed with patient in detail and at length all questions answered she is understanding, agreeable, comfortable with the plan of care Admission and Anticipated Discharge Date Admission Date: October 18, 2021 Subjective ff up for acute CHF, etc seen resting in bed, comfortable more alert, appears less weak states she feel somewhat better compared to yesterday still in 3 L NC no chest pain, dyspnea, palpitations, dizziness no other symptoms Review of Systems Review of Systems: all noted and negative except for above Physical Exam Physical Exam: General- oriented x 3, not in distress, speaks in sentences with no effort or accessory muscle use Eyes- anicteric Neck- no JVD Lungs- clear BS bilaterally, no rales/wheezes Heart- normal rate, regular rhythm; no murmurs Abdomen- normal bowel sounds, nondistended, soft, nontender Extremities- no pretibial edema, no calf tenderness Neuro- alert, oriented x 3; no gross focal neurologic deficits Skin- warm & dry Results & Data Results & Data ([facility]) Vital Signs (Past 12 Hours) Vital Signs Temp Pulse Pulse Resp BP BP Pulse Ox 10/29/21 07:51 36.4 C L 72 17 99/61 L 90 10/29/21 07:38 10/29/21 07:02 71 10/28/21 22:45 36.4 C L 68 20 96/58 L 91 O2 Del Method O2 Flow Rate 10/29/21 07:51 Nasal Cannula 3 10/29/21 07:38 2 10/29/21 07:02 10/28/21 22:45 Nasal Cannula 2.5 all noted and reviewed including below
[2021-10-29] MEDS: MIDODRINE HCL 2.5 MG TAB PO SCH ×2 (12:00→17:00)
--- NOTE | 2021-10-29 15:56 | Progress Note ---
Date of Service October 29, 2021 Assessment & Plan Admission and Anticipated Discharge Date Admission Date: October 18, 2021 Subjective Biopsies from procedure show evidence of GI amyloid. No specific recommendatio ns -- continue symptomatic therapy for Reglan if this offers her relief. AMmyloid likely related to MM, should f/u with heme. Results & Data ([facility]) Vital Signs (Past 12 Hours) Vital Signs Temp Pulse Pulse Resp BP Pulse Ox O2 Del Method 10/29/21 15:47 72 10/29/21 11:20 36.6 C 73 18 95/61 L 94 Nasal Cannula 10/29/21 07:51 36.4 C L 72 17 99/61 L 90 Nasal Cannula 10/29/21 07:38 10/29/21 07:02 71 O2 Flow Rate 10/29/21 15:47 10/29/21 11:20 3 10/29/21 07:51 3 10/29/21 07:38 2 10/29/21 07:02
[2021-10-29] MEDS: METOCLOPRAMIDE HCL INJ 5 MG/ML 2 ML VIAL IV SCH (20:19)
[2021-10-30 07:08] LABS: BUN Creatinine Ratio 42.2 (10-20); Creatinine Clr Calc Pharmacy 89.4 ml/min; Est GFR (African American) 113.6 ml/min; Potassium 2.9 mmol/L (3.5-5.1)
[2021-10-30] MEDS: ESCITALOPRAM OXALATE 10 MG TAB PO SCH (08:16)
[2021-10-30] MEDS: SPIRONOLACTONE 12.5 MG TAB PO SCH ×2 (08:17→20:36)
[2021-10-30] MEDS: MIDODRINE HCL 2.5 MG TAB PO SCH ×3 (08:17→17:17)
[2021-10-30] MEDS: PANTOprazole 40 MG TAB PO SCH ×2 (08:17→20:36)
[2021-10-30] MEDS: SUCRALFATE 1 GM/10 ML UDC PO SCH ×4 (08:17→20:36)
[2021-10-30] MEDS ORDERED: POTASSIUM CHLORIDE CRTAB 20 MEQ TABCR PO STA (08:47)
[2021-10-30] MEDS: FUROSEMIDE 40 MG TAB PO SCH ×3 (08:48→14:56)
[2021-10-30] MEDS ORDERED: POTASSIUM CHLORIDE / WTR 10 MEQ/100 ML PLCT IV SCH (09:00)
--- NOTE | 2021-10-30 09:42 | Cardiology Progress Note ---
Date of Service October 30, 2021 Assessment & Plan (1) Acute heart failure with preserved ejection fraction (HFpEF): (2) Cardiac amyloidosis: (3) Multiple myeloma: (4) Hypokalemia: (5) PUD (peptic ulcer disease): Plan: 76 year old female seen in cardiology follow up. 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 Patient also follows with cardiology at the [facility]. She is previously followed with hematology/oncology within the [facility] (Dr. Juan A Luevano), [facility], and most recently [facility]. Per review of her most recent hematology/oncology follow-up visit performed via telemedicine with [facility] 10/11/2021 salvage therapy using daratumumab with CyBorD based chemotherapy to continue for 6 months followed by single agent daratumumab. Recent lab studies had revealed normalization of kappa light chain level. Dating back to Jul, 2021 patient has been on an aggressive outpatient diuretic regimen with furosemide 40 mg tablets, 120 mg orally by mouth 2 times per day as well as spironolactone 12.5 mg daily. She had been tolerating this relatively well, with chronic relative hypotension, systolic blood pressures in the 90s. The patient's dose was subsequently reduced down to 120 mg daily (seemingly on her own without input from her providers, although this is difficult to discern at present) and developed progressive fluid retention. She presented to this institution, and on 10/19/2021, underwent bilateral thoracentesis yielding 1000 mL of pleural fluid from the left lung, and 1400 mL of pleural fluid from the right lung. She remains volume overloaded. Hospitalization further noted for abdominal discomfort, EGD 10/25/2021 yielded an ulcer in the area of her hiatal hernia which was clipped. Hemoglobin has been stable. She is not on a beta-deneen due to past bradycardia, and beta-deneen typically not well tolerated were proven to be of benefit in AL amyloid related cardiomyopathy. Furthermore, she is not on an BAHMAN inhibitor or angiotensin receptor deneen, as these treatments are not well-tolerated in this disease entity. With potassium level 2.9 normal per liter today, will replace orally, avoiding IV replacement due to concerns of administering more IV fluid and making her more volume overloaded. Plan on potassium chloride 40 mill equivalents at 9 AM, 11 AM, 1300, and a repeat BMP at 1400. SCDs for DVT prophylaxis. Overall prognosis is considered poor as is characteristic of this disease entity. I discussed consideration of palliative care approach with both patient and her . Case discussed with Dr. Galvan, recommend palliative care consultation. Admission and Anticipated Discharge Date Admission Date: October 18, 2021 Subjective Patient seen in follow-up. She states that she did not rest very well last night, notes that her roommate was very noisy. She feels exhausted. Per review of her intake and output summary, no significant urine output recorded however her potassium is down to 2.9 mmol/L she states that she had been urinating quite a bit. Review of Systems Constitutional: + fatigue, + weakness and + daytime sleepiness Physical Exam Constitutional: + frail appearing Eyes: Periorbital edema noted Respiratory: Auscultation: + diminished lung sounds (decreased BS in the bases bilatterally); no rales Cardiovascular: RRR, no murmur, no edema Gastrointestinal (Abdomen): normal bowel sounds, soft, nontender, no hepatosplenomegaly Neurologic: PERRL, EOMI, accommodation nl, no face palsy, no dysarthria Results & Data ([facility]) Vital Signs (Past 12 Hours) Vital Signs Temp Pulse Pulse Resp BP Pulse Ox O2 Flow Rate 10/30/21 07:59 62 10/30/21 06:48 36.6 C 68 18 86/54 L 94 3 10/30/21 06:31 86/54 L 10/30/21 02:54 36.8 C 67 18 102/60 92 2 10/29/21 22:17 72 10/29/21 23:15 36.4 C L 73 18 98/48 L 93 2
--- NOTE | 2021-10-30 10:00 | Communication Note ---
Date of Service: October 30, 2021 Per patient request, I called and updated her by phone.
[2021-10-30] MEDS ORDERED: POTASSIUM CHLORIDE CRTAB 20 MEQ TABCR PO ONE ×2 (11:00→13:00)
[2021-10-30 14:40] LABS: BUN Creatinine Ratio 45.5 (10-20); Calcium 8.3 mg/dl (8.5-10.1); Creatinine Clr Calc Pharmacy 91.4 ml/min; Est GFR (African American) 114.4 ml/min; Est GFR (Non-African American) 98.7 ml/min
--- NOTE | 2021-10-30 14:50 | Hospitalist Progress Note ---
Date of Service October 30, 2021 Assessment & Plan (1) Acute on chronic diastolic (congestive) heart failure: Plan: Per admitting service notes with addendum: - in the setting of cardiac amyloidosis with significant third spacing. - Significant and large pleural effusions on imaging - s/p bilateral thoracentesis 10/19/2021 - PT/OT eval - recommending rehab now -Respiratory status improved but is requiring 2 L to maintain saturation -Overall clinical symptoms and not getting any better -We will ask for palliative care input (2) Acute combined systolic and diastolic CHF, NYHA class 3: Plan: Presented with bilateral pleural effusion-as below Combined systolic and diastolic heart failure is due to cardiac amyloidosis and is complicated by valvular heart disease Has been receiving intravenous Lasix and spironolactone Will need to be kept on the continuous conveyor screen drier side to minimize symptoms Appreciate cardiology input and recommendation Cumulative fluid balance is -363 5 mL Oral fluid restrictions is being continued (3) Cardiac amyloidosis: (4) Pleural effusion: Plan: As above (5) Multiple myeloma: Plan: IgG kappa 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 No proteinuria and splenomegaly known. She is taking daratumumab every 4 weeks Velcade (bortezomib) added in June 19 and cyclophosphamide (Cytoxan) with last infusion on 09/27 Decadron lowered from 10mg weekly to 8mg weekly. She began having worsening nausea and diarrhea over the past two weeks as well as reflux symptoms PPI and H2 blockers were adjusted and diet changes to include bland diet were recommended Concern with 10 lb weight loss over the last month. GI consulted for thoughts on this. Cont supportive care with antireflux meds and antiemetics Patient to follow-up with primary oncologist as an outpatient-last seen 09/13 Patient missed Decadron 8mg weekly (6) PUD (peptic ulcer disease): Plan: PPI drip for 72 hours. with worsening heart failure picture, will transition this to PO PPI now. appears that nausea is improved Cont carafate Holding aspirin path report from multiple biopsies (+) Amyloidosis Continue with Protonix twice a day (7) Dyspepsia: Plan: 2/2 peptic ulcer disease. Patient on PPI resolved requested to advance diet to regular (8) Weakness: Plan: Likely multifactorial including malnutrition and prolonged hospitalization. - continue to work with PT/OT as patient is anxious about going home -Does not want to go for any more PT and/or OT -Wants to go home (9) Malnutrition: Plan: Ongoing weight loss and food avoidance with diarrhea and dry heaving for two weeks. Likely related to PUD as this is improving now with treatment. Nausea is controlled and diet is being advanced. Doxycycline for amyloid is held. DVT proph Heparin and aspirin held in setting of bleeding ulcer. Full Code Dispo-to rehab when clinically improved. Discussed about disposition Will get palliative care input before discharging the patient Admission and Anticipated Discharge Date Admission Date: October 18, 2021 Subjective 10/30/2021 The patient was seen and examined in medical telemetry unit She has been extremely weak and lethargic does not want to do anything for herself She is going to the bathroom with help She wants to go home and does not want to go to rehab Review of Systems Review of Systems: All systems reviewed and are unremarkable except as noted below Neurologic: Generally very weak and lethargic Physical Exam Physical Exam: Lying in bed without any acute distress but looks very depressed Constitutional: + ill appearing and + thin Eyes: PERRL, conjunctivae normal, anicteric sclerae ENMT: external ear and nose normal, oropharynx normal Neck: trachea midline, no thyromegaly Respiratory: no respiratory distress Auscultation: + diminished lung sounds and + crackles (Minimal crackles at the bases) Cardiovascular: Rate/Rhythm: regular rate and regular rhythm; not tachycardic Heart Sounds: normal S1 and normal S2; no murmur Extremities: no edema Gastrointestinal (Abdomen): Inspection/Auscultation: normal bowel sounds; abdomen not distended Percussion/Palpation: abdomen soft; abdomen nontender Musculoskeletal: No acute arthritis in any joint Neurologic: Alert, awake and oriented x3. Generally very weak and lethargic. Moves all extremities and no focal neurodeficit Lymphatic: no cervical or axillary lymphadenopathy Results & Data Results & Data ([facility]) Vital Signs (Past 12 Hours) Vital Signs Temp Pulse Pulse Resp BP BP Pulse Ox 10/30/21 13:31 36.8 C 70 16 92/57 L 93 10/30/21 10:51 10/30/21 07:59 62 10/30/21 06:48 36.6 C 68 18 86/54 L 94 10/30/21 06:31 86/54 L 10/30/21 02:54 36.8 C 67 18 102/60 92 O2 Del Method O2 Flow Rate 10/30/21 13:31 Nasal Cannula 2 10/30/21 10:51 Nasal Cannula 2 10/30/21 07:59 10/30/21 06:48 3 10/30/21 06:31 10/30/21 02:54 2 Laboratory Results BMP 10/30/21 06:31 Sodium 141 Potassium 2.9 L D Chloride 103 Carbon Dioxide 32 BUN 19 Creatinine 0.45 L Glucose 83 Calcium 8.0 L Medications Administered Current Inpatient Medications Acetaminophen (Acetaminophen 325 Mg Tab) 650 mg PO Q4H PRN PRN Reason: Pain or Fever Stop: 11/17/21 15:11 Acyclovir (Acyclovir 400 Mg Tab) 400 mg PO AMHS [facility]ANN Stop: 11/17/21 20:59 Last Admin: 10/26/21 09:29 Dose: 400 mg Calcium Carbonate (Calcium Carbonate 500 Mg Chewable Tab) 1,000 mg PO Q6H PRN PRN Reason: Indigestion Stop: 11/23/21 14:27 Escitalopram Oxalate (Escitalopram Oxalate 10 Mg Tab) 10 mg PO QAM [facility]ANN Stop: 11/18/21 08:59 Last Admin: 10/30/21 08:16 Dose: 10 mg Furosemide (Furosemide 40 Mg Tab) 120 mg PO [id number] [facility]YANN Stop: 11/29/21 06:59 Last Admin: 10/30/21 13:48 Dose: Not Given Melatonin (Melatonin 3 Mg Tab) 3 mg PO HS PRN PRN Reason: Sleep Stop: 11/17/21 21:39 Last Admin: 10/27/21 20:51 Dose: 3 mg Metoclopramide HCl (Metoclopramide Hcl Inj 5 Mg/Ml 2 Ml Vial) 5 mg IV HS [facility]ANN Stop: 11/23/21 20:59 Last Admin: 10/29/21 20:19 Dose: 5 mg Midodrine (Midodrine Hcl 2.5 Mg Tab) 2.5 mg PO TID@0800,1200,1700 [facility] Stop: 11/28/21 11:59 Last Admin: 10/30/21 11:16 Dose: 2.5 mg Pantoprazole Sodium (Pantoprazole 40 Mg Tab) 40 mg PO BID [facility]ANN Stop: 11/26/21 20:59 Last Admin: 10/30/21 08:17 Dose: 40 mg Polyethylene Glycol (Polyethylene (Miralax) 17 Gm Pack) 17 gm PO DAILY PRN PRN Reason: Constipation Stop: 11/20/21 11:22 Last Admin: 10/22/21 07:57 Dose: 17 gm Promethazine HCl (Promethazine Hcl 25 Mg Tab) 25 mg PO Q6H PRN PRN Reason: n/v Stop: 11/23/21 14:29 Last Admin: 10/28/21 16:22 Dose: 25 mg Spironolactone (Spironolactone 12.5 Mg Tab) 12.5 mg PO BID [facility] Stop: 11/27/21 20:59 Last Admin: 10/30/21 08:17 Dose: Not Given Sucralfate (Sucralfate 1 Gm/10 Ml Udc) 1 gm PO QID [facility] Stop: 11/25/21 16:59 Last Admin: 10/30/21 13:35 Dose: Not Given
--- NOTE | 2021-10-30 14:51 | Communication Note ---
Date of Service: October 30, 2021 Repeat Potassium level improved to 4 mmol/l. OK to proceed with furosemide 120 mg PO dose due this afternoon.
[2021-10-30] MEDS: METOCLOPRAMIDE HCL INJ 5 MG/ML 2 ML VIAL IV SCH (20:36)
[2021-10-31 06:18] LABS: Basophils # (auto) 0.03 K/uL (0-0.2); Basophils % (auto) 0.4 %; Eosinophils # (auto) 0.15 K/uL (0-0.50); Eosinophils % (auto) 2.2 %; Hematocrit (blood only) 39.7 % (34.1-44.9); Immature Granulocytes # (auto) 0.02 K/uL (0.00-0.02); Immature Granulocytes % (auto) 0.3 %; Lymphocytes # (auto) 0.37 K/uL (1.2-3.4); Lymphocytes % (auto) 5.5 %; Mean Corpuscular Hemoglobin 31.6 pg (25.0-34.0); Mean Corpuscular Hgb Conc 32.7 g/dL (32.0-36.0); Mean Corpuscular Volume 96.6 fL (80.0-100.0); Mean Platelet Volume 11.9 fL (9.4-12.3); Monocytes # (auto) 0.83 K/uL (0.24-0.82); Monocytes % (auto) 12.3 %; Neutrophils # (auto) 5.34 K/uL (1.4-6.5); Neutrophils % (auto) 79.3 %; Platelet Count 176 K/uL (130-400); RDW Coefficient of Variation 17.9 % (11.5-14.5); RDW Standard Deviation 60.4 fL (36.4-46.3); Red Blood Count 4.11 M/uL (3.93-5.22); White Blood Count 6.74 K/ul (4.8-10.8)
[2021-10-31] MEDS: FUROSEMIDE 40 MG TAB PO SCH ×2 (06:30→13:55)
[2021-10-31 06:46] LABS: BUN Creatinine Ratio 33.3 (10-20); Calcium 8.5 mg/dl (8.5-10.1); Creatinine Clr Calc Pharmacy 78.8 ml/min; Est GFR (Non-African American) 94.1 ml/min; Magnesium 1.8 mg/dl (1.7-2.4); Phosphorus 2.6 mg/dl (2.5-4.9); Potassium 3.6 mmol/L (3.5-5.1)
[2021-10-31] MEDS: PANTOprazole 40 MG TAB PO SCH ×2 (08:15→20:40)
[2021-10-31] MEDS: SPIRONOLACTONE 12.5 MG TAB PO SCH ×2 (08:15→20:40)
[2021-10-31] MEDS: MIDODRINE HCL 2.5 MG TAB PO SCH ×3 (08:15→16:51)
[2021-10-31] MEDS: SUCRALFATE 1 GM/10 ML UDC PO SCH ×4 (08:15→20:40)
[2021-10-31] MEDS: ESCITALOPRAM OXALATE 10 MG TAB PO SCH (08:15)
[2021-10-31] MEDS ORDERED: POTASSIUM CHLORIDE CRTAB 20 MEQ TABCR PO SCH (09:00)
--- NOTE | 2021-10-31 10:19 | Cardiology Progress Note ---
Date of Service October 31, 2021 Assessment & Plan (1) Acute heart failure with preserved ejection fraction (HFpEF): (2) Cardiac amyloidosis: (3) Multiple myeloma: (4) Hypokalemia: (5) PUD (peptic ulcer disease): Plan: 76 year old female seen in cardiology follow up. 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 -Patient's status post EGD, clipping, gastric ulcer,Continue sucralfate, oral P rotonix. Standing potassium chloride, 20 mEq p.o. daily start today, continue low-dose spironolactone 12.5 mg twice daily, furosemide 120 mg twice daily at 7 AM, 1400, midodrine 2.5 mg 3 times daily. As previously noted, in this particular disease entity, beta-blockers, BAHMAN inhibitors, ARBS, Entresto not indicated. Patient is 3 years post diagnosis of AL cardiac amyloidosis. Prognosis felt to be poor, and I do have concerns that she has reached an end-stage point in her disease even though laboratory sen her paraproteinemia has been improving. Palliative care approach may be most prudent course, and I have discussed this with the patient and her . I do feel that her cardiac medications as noted above, would be part of a palliative care plan in order to ease her chest congestion. Discussed with case management. Admission and Anticipated Discharge Date Admission Date: October 18, 2021 Subjective Patient seen in cardiology follow-up. Telemetry reveals sinus rhythm in the 60s. She has slightly more energy today and had rest last night. Fluid balance -1.3 L in the last 24 hours. She tolerated afternoon dose of furosemide 120 mg orally yesterday 10/30/2021, and received a dose this morning. Tolerating midodrine, systolic blood pressures relatively stable for her, with measurement of 95/59 this morning, several systolic blood pressures above 100 and a last 24 hours. Potassium stable at 3.6 mmol/L this morning. Creatinine stable. Physical Exam Constitutional: + ill appearing and + cachectic Respiratory: Auscultation: + diminished lung sounds (Decreased breath sounds bilaterally at the bases); no crackles and no rales Cardiovascular: Rate/Rhythm: regular rate Heart Sounds: normal S1 and normal S2; no murmur Extremities: no edema Musculoskeletal: Muscle wasting noted to the lower extremities Neurologic: PERRL, EOMI, accommodation nl, no face palsy, no dysarthria Results & Data ([facility]) Vital Signs (Past 12 Hours) Vital Signs Temp Pulse Pulse Resp BP Pulse Ox O2 Del Method 10/31/21 08:00 71 10/31/21 06:29 72 95/59 L 10/31/21 06:26 36.9 C 66 18 101/63 90 10/31/21 03:13 36.7 C 85 20 118/71 90 Room Air 10/30/21 22:16 66 10/30/21 22:53 36.6 C 66 18 97/55 L 92 10/30/21 22:16 Nasal Cannula O2 Flow Rate 10/31/21 08:00 10/31/21 06:29 10/31/21 06:26 2 10/31/21 03:13 10/30/21 22:16 10/30/21 22:53 2 10/30/21 22:16 2
--- NOTE | 2021-10-31 13:15 | Hospitalist Progress Note ---
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 to minimize symptoms Appreciate cardiology input and recommendation Cumulative fluid balance is -363 5 mL Oral fluid restrictions is being continued Remains very weak and lethargic Palliative care consulted for guidance of care from here PT OT evaluation-recommended rehab and the patient is willing to go to rehab now (2) Acute on chronic diastolic (congestive) heart failure: Plan: As above (3) Cardiac amyloidosis: (4) Pleural effusion: Plan: -Secondary to combined heart failure - s/p bilateral thoracentesis 10/19/2021 -Transitive fluid likely secondary to heart failure -Respiratory status improved but is requiring 2 L to maintain saturation -We will continue Lasix (5) Multiple myeloma: Plan: IgG kappa 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 No proteinuria and splenomegaly known. She is taking daratumumab every 4 weeks Velcade (bortezomib) added in June 19 and cyclophosphamide (Cytoxan) with last infusion on 09/27 Decadron lowered from 10mg weekly to 8mg weekly. She began having worsening nausea and diarrhea over the past two weeks as well as reflux symptoms PPI and H2 blockers were adjusted and diet changes to include bland diet were recommended Concern with 10 lb weight loss over the last month. GI consulted for thoughts on this. Cont supportive care with antireflux meds and antiemetics Patient to follow-up with primary oncologist as an outpatient-last seen 09/13 Patient missed Decadron 8mg weekly (6) PUD (peptic ulcer disease): Plan: PPI drip for 72 hours. with worsening heart failure picture, will transition this to PO PPI now. appears that nausea is improved Cont carafate Holding aspirin path report from multiple biopsies (+) Amyloidosis Continue with Protonix twice a day (7) Dyspepsia: Plan: 2/2 peptic ulcer disease. Patient on PPI resolved requested to advance diet to regular (8) Weakness: Plan: Likely multifactorial including malnutrition and prolonged hospitalization. - continue to work with PT/OT as patient is anxious about going home -Does not want to go for any more PT and/or OT -Wants to go home (9) Malnutrition: Plan: Ongoing weight loss and food avoidance with diarrhea and dry heaving for two weeks. Likely related to PUD as this is improving now with treatment. Nausea is controlled and diet is being advanced. Doxycycline for amyloid is held. DVT proph Heparin and aspirin held in setting of bleeding ulcer. Full Code Dispo-to rehab when clinically improved. Discussed about disposition Will get palliative care input before discharging the patient Admission and Anticipated Discharge Date Admission Date: October 18, 2021 Subjective 10/30/2021 The patient was seen and examined in medical telemetry unit She has been extremely weak and lethargic does not want to do anything for herself She is going to the bathroom with help She wants to go home and does not want to go to rehab 10/31/2021 The patient was seen and examined in medical telemetry unit She has been a little better today and has been communicating well She has weakness but denies any any other significant symptoms She is willing to go to rehab Review of Systems Review of Systems: All systems reviewed and are unremarkable except as noted below Neurologic: Generally very weak and lethargic Physical Exam Physical Exam: Lying in bed without any acute distress but looks very depressed Constitutional: + ill appearing and + thin Eyes: PERRL, conjunctivae normal, anicteric sclerae ENMT: external ear and nose normal, oropharynx normal Neck: trachea midline, no thyromegaly Respiratory: no respiratory distress Auscultation: + diminished lung sounds and + crackles (Minimal crackles at the bases) Cardiovascular: Rate/Rhythm: regular rate and regular rhythm; not tachycardic Heart Sounds: normal S1 and normal S2; no murmur Extremities: no edema Gastrointestinal (Abdomen): Inspection/Auscultation: normal bowel sounds; abdomen not distended Percussion/Palpation: abdomen soft; abdomen nontender Musculoskeletal: No acute arthritis in any joint Neurologic: normal touch/pain/proprioception and moves all extremities; no focal motor deficits Psychiatric: A+Ox3, euthymic affect Lymphatic: no cervical or axillary lymphadenopathy Results & Data Results & Data ([facility]) Vital Signs (Past 12 Hours) Vital Signs Temp Pulse Pulse Resp BP BP Pulse Ox 10/31/21 11:02 36.5 C 67 18 110/62 94 10/31/21 10:30 10/31/21 08:00 71 10/31/21 06:29 72 95/59 L 10/31/21 06:26 36.9 C 66 18 101/63 90 10/31/21 03:13 36.7 C 85 20 118/71 90 O2 Del Method O2 Flow Rate 10/31/21 11:02 Nasal Cannula 2 10/31/21 10:30 Nasal Cannula 2 10/31/21 08:00 10/31/21 06:29 10/31/21 06:26 2 10/31/21 03:13 Room Air Laboratory Results Short CBC 10/31/21 Range/Units 05:59 WBC 6.74 (4.8-10.8) K/ul Hgb 13.0 (12.0-16.0) g/dl Hct 39.7 (34.1-44.9) % Plt Count 176 (130-400) K/uL BMP 10/30/21 10/31/21 13:54 05:59 Sodium 140 142 Potassium 4.0 D 3.6 Chloride 104 103 Carbon Dioxide 32 34 H BUN 20 17 Creatinine 0.44 L 0.51 L Glucose 105 H 81 Calcium 8.3 L 8.5 Medications Administered Current Inpatient Medications Acetaminophen (Acetaminophen 325 Mg Tab) 650 mg PO Q4H PRN PRN Reason: Pain or Fever Stop: 11/17/21 15:11 Acyclovir (Acyclovir 400 Mg Tab) 400 mg PO AMHS [facility] Stop: 11/17/21 20:59 Last Admin: 10/26/21 09:29 Dose: 400 mg Calcium Carbonate (Calcium Carbonate 500 Mg Chewable Tab) 1,000 mg PO Q6H PRN PRN Reason: Indigestion Stop: 11/23/21 14:27 Escitalopram Oxalate (Escitalopram Oxalate 10 Mg Tab) 10 mg PO QAM [facility] Stop: 11/18/21 08:59 Last Admin: 10/31/21 08:15 Dose: 10 mg Furosemide (Furosemide 40 Mg Tab) 120 mg PO [id number] [facility] Stop: 11/29/21 06:59 Last Admin: 10/31/21 06:30 Dose: 120 mg Melatonin (Melatonin 3 Mg Tab) 3 mg PO HS PRN PRN Reason: Sleep Stop: 11/17/21 21:39 Last Admin: 10/27/21 20:51 Dose: 3 mg Metoclopramide HCl (Metoclopramide Hcl Inj 5 Mg/Ml 2 Ml Vial) 5 mg IV HS [facility] Stop: 11/23/21 20:59 Last Admin: 10/30/21 20:36 Dose: 5 mg Midodrine (Midodrine Hcl 2.5 Mg Tab) 2.5 mg PO TID@0800,1200,1700 [facility] Stop: 11/28/21 11:59 Last Admin: 10/31/21 12:22 Dose: 2.5 mg Pantoprazole Sodium (Pantoprazole 40 Mg Tab) 40 mg PO BID [facility] Stop: 11/26/21 20:59 Last Admin: 10/31/21 08:15 Dose: 40 mg Polyethylene Glycol (Polyethylene (Miralax) 17 Gm Pack) 17 gm PO DAILY PRN PRN Reason: Constipation Stop: 11/20/21 11:22 Last Admin: 10/22/21 07:57 Dose: 17 gm Potassium Chloride (Potassium Chloride Crtab 20 Meq Tabcr) 20 meq PO QAM [facility] Stop: 11/30/21 08:59 Last Admin: 10/31/21 08:59 Dose: 20 meq Promethazine HCl (Promethazine Hcl 25 Mg Tab) 25 mg PO Q6H PRN PRN Reason: n/v Stop: 11/23/21 14:29 Last Admin: 10/28/21 16:22 Dose: 25 mg Spironolactone (Spironolactone 12.5 Mg Tab) 12.5 mg PO BID [facility] Stop: 11/27/21 20:59 Last Admin: 10/31/21 08:15 Dose: 12.5 mg Sucralfate (Sucralfate 1 Gm/10 Ml Udc) 1 gm PO QID [facility] Stop: 11/25/21 16:59 Last Admin: 10/31/21 12:22 Dose: Not Given
[2021-10-31] MEDS: METOCLOPRAMIDE HCL INJ 5 MG/ML 2 ML VIAL IV SCH (20:40)
[2021-11-01] MEDS: FUROSEMIDE 40 MG TAB PO SCH ×2 (06:02→14:57)
[2021-11-01 07:52] LABS: BUN Creatinine Ratio 29.6 (10-20); Calcium 8.8 mg/dl (8.5-10.1); Creatinine Clr Calc Pharmacy 74.5 ml/min; Est GFR (Non-African American) 92.3 ml/min; Potassium 3.3 mmol/L (3.5-5.1)
[2021-11-01] MEDS: SPIRONOLACTONE 12.5 MG TAB PO SCH ×2 (08:01→20:24)
[2021-11-01] MEDS: MIDODRINE HCL 2.5 MG TAB PO SCH ×3 (08:02→16:54)
[2021-11-01] MEDS: POTASSIUM CHLORIDE CRTAB 20 MEQ TABCR PO SCH ×2 (08:02→20:24)
[2021-11-01] MEDS: PANTOprazole 40 MG TAB PO SCH ×2 (08:02→20:23)
[2021-11-01] MEDS: ESCITALOPRAM OXALATE 10 MG TAB PO SCH (08:03)
[2021-11-01] MEDS: SUCRALFATE 1 GM/10 ML UDC PO SCH ×4 (08:03→20:25)
[2021-11-01] MEDS ORDERED: dexAMETHasone 4 MG TAB PO SCH (08:30)
--- NOTE | 2021-11-01 09:32 | Cardiology Progress Note ---
Date of Service November 01, 2021 Assessment & Plan (1) Acute heart failure with preserved ejection fraction (HFpEF): (2) Cardiac amyloidosis: (3) Multiple myeloma: (4) Hypokalemia: (5) PUD (peptic ulcer disease): Plan: Hospital day 14 76 year old female seen in cardiology follow up. 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 -Patient is status post EGD 10/25/2021, clipping, gastric ulcer,Continue sucralfate, oral Protonix. Standing potassium chloride, 20 mEq p.o. BID, continue low-dose spironolactone 12.5 mg twice daily, furosemide 120 mg twice daily at 7 AM, 1400, midodrine 2.5 mg 3 times daily. As previously noted, in this particular disease entity, beta-blockers, BAHMAN inhibitors, ARBS, Entresto not indicated. Patient is 3 years post diagnosis of AL cardiac amyloidosis. Prognosis felt to be poor, and I do have concerns that she has reached an end-stage point in her disease even though laboratory sen her paraproteinemia has been improving. Palliative care approach may be most prudent course, and I have discussed this with the patient and her . I do feel that her cardiac medications as noted above, would be part of a palliative care plan in order to ease her chest congestion. Admission and Anticipated Discharge Date Admission Date: October 18, 2021 Subjective Patient seen in cardiology follow-up. She notes generalized weakness and shakiness this morning. Chest x-ray was ordered by the undersigned, and she is just returned. Telemetry reveals sinus rhythm in the 60s to 70s. Physical Exam Constitutional: + ill appearing, + cachectic and + frail appearing Respiratory: Auscultation: + diminished lung sounds (Decreased breath sounds bilaterally at the bases); no crackles and no rales Cardiovascular: RRR, no murmur, no edema Rate/Rhythm: regular rate Heart Sounds: normal S1 and normal S2; no murmur Extremities: no edema Gastrointestinal (Abdomen): normal bowel sounds, soft, nontender, no hepatosplenomegaly Neurologic: PERRL, EOMI, accommodation nl, no face palsy, no dysarthria Results & Data ([facility]) Vital Signs (Past 12 Hours) Vital Signs Temp Pulse Pulse Resp BP BP Pulse Ox 11/01/21 08:05 37.0 C 79 16 102/64 93 11/01/21 07:38 63 11/01/21 03:41 36.8 C 70 18 99/45 L 95 10/31/21 23:19 36.7 C 63 18 102/61 91 10/31/21 22:20 62 O2 Del Method O2 Flow Rate 11/01/21 08:05 Room Air 11/01/21 07:38 11/01/21 03:41 Nasal Cannula 2 10/31/21 23:19 Nasal Cannula 2 10/31/21 22:20 Laboratory Results Comprehensive Metabolic Panel 11/01/21 Range/Units 07:01 Sodium 142 (136-145) mmol/L Potassium 3.3 L (3.5-5.1) mmol/L Chloride 99 (98-107) mmol/L Carbon Dioxide 39 H (21-32) mmol/L BUN 16 (6-23) mg/dl Creatinine 0.54 L (0.6-1.2) mg/dl Glucose 87 (70-99(Fasting)) mg/dl Calcium 8.8 (8.5-10.1) mg/dl Intake and Output 10/31/21 11/01/21 11/01/21 22:59 06:59 14:59 Intake Total 400 / 1040 Output Total 1300 / 1700 Balance -900 / -660 Intake: Oral 400 / 1040 Output: Urine 1300 / 1700
--- NOTE | 2021-11-01 09:38 | XRay Report ---
TWO VIEW CHEST CLINICAL HISTORY: Congestive heart failure.. FINDINGS: PA and lateral chest radiographs are compared to study dated 10/27/2021. Correlation is made with chest CT dated 10/18/[address] dated 10/18/2021. The heart is enlarged noting atherosc lerotic calcification of the thoracic aorta. There is pulmonary vascular congestion. There are modera te pleural effusions with dependent consolidation. There is no pneumothorax. The skeletal structures are osteopenic. The bony thorax appears intact. An indeterminant 2.4 cm metallic foreign body is like ly located in the stomach. This was not seen previously. There are additional round radiodensities lo cated in the left upper quadrant which are also new. IMPRESSION: 1. Cardiomegaly with evidence of congestive failure. 2. Moderate layering pleural effusions with dependent consolidation. 3. There is a 2.4 cm metallic foreign body, likely located within the stomach. This is new from previ ous. Clinical correlation will be required. 4. Additional indeterminate radiodensities project over the left upper quadrant of the abdomen. These are also new from previous. ACT 112: Negative or not required by law. Electronically signed by: Kashif Rios M.D. 11/01/2021 9:36 AM
--- NOTE | 2021-11-01 14:01 | Palliative Care Consultation ---
Date of Consultation November 01, 2021 Assessment & Plan (1) Dyspnea: with bilateral pleural effusions and cardiac amyloidosis. She feels this is ok right now but worried about what will happen if she goes home (2) Anxiety: Anel has expressed concern about how to manage at home and not being a burden to her . She is also uncertain about how she would react if her effusions worsened and her shortness of breath increased. (3) Palliative care encounter: I talked with Anel about her understanding of her illness. She understands that her condition will not improve and that the effusions will worsen. She is uncertain about whether she would want to be at home or not. She has talked about custodial. I asked her what she would want her dying time to be like and she told me that she hoped she would just fall asleep and not wake up. She is very worried about what to do if effusions return and her immediate response is to come back to ER. We talked about home nurses to help manage and assess at home to anticipate how to help her before it is an emergency. Dr. Griggs talked to them about options for thoracentesis as an outpatient or possible pleurx. She would prefer to be able to be at home until her dying time. We discussed hospice as best source of support for this. We reviewed role of hospice nurse and everything involved with hospice benefit. We talked for 60 minutes about what to expect and how to address symptoms or problems that may arise. Plan will be home with hospice care. Family will consider which hospice they prefer and discuss with case management. History of Present Illness Reason for Consultation: goals of care Requesting Physician: Dr. Galvan Attending Physician: Lexi Galvan MD History of Present Illness 76 yo lady with multiple myeloma and cardiac amyloidosis. 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 She has bilateral pleural effusions and is being treated with lasix and aldactone. She unfortunately also has PUD and underwent EGD with clip earlier in her admission. She is currently on carafate and PPI. Allergies Allergy/AdvReac Type Severity Reaction Status Date / Time No Known Allergies Allergy Unknown ` Verified 10/18/21 12:27 Home Medications Medication Instructions Recorded Confirmed Type cholecalciferol (vitamin D3) 25 25 mcg PO DAILY 05/14/21 10/18/21 History mcg (1,000 unit) capsule (Vitamin D3) cyanocobalamin (vitamin B-12) 1,000 mcg PO DAILY 05/14/21 10/18/21 History 1,000 mcg tablet (Vitamin B-12) furosemide 40 mg tablet 120 mg PO QAM 05/14/21 10/18/21 History omeprazole 20 mg tablet,delayed 20 mg PO QAM 05/14/21 10/18/21 History release potassium chloride 20 mEq See Rx Instructions .Route .COMPLEX 05/14/21 10/18/21 History tablet,extended release(part/cryst) doxycycline hyclate 100 mg capsule 100 mg PO BID #60 caps 05/22/21 10/18/21 Rx acyclovir 400 mg tablet 400 mg PO AMHS 10/18/21 10/18/21 History dexamethasone 4 mg tablet 8 mg PO WK 10/18/21 10/25/21 History escitalopram oxalate 10 mg tablet 10 mg PO QAM 10/18/21 10/18/21 History metolazone 2.5 mg tablet 2.5 mg PO WK 10/18/21 10/18/21 History prochlorperazine maleate 10 mg 10 mg PO Q6 PRN Nausea 10/18/21 10/18/21 History tablet spironolactone 25 mg tablet 25 mg PO QAM 10/18/21 10/18/21 History aspirin 81 mg tablet,delayed 81 mg PO QAM #30 tabs 10/23/21 Rx release nitroglycerin 0.4 mg sublingual 0.4 mg sublingual UD PRN chest 10/23/21 Rx tablet (Nitrostat) pain #14 tabs spironolactone 25 mg tablet 25 mg PO BID #60 tabs 10/23/21 Rx Patient History Medical History Cardiac amyloidosis Chronic diastolic heart failure GI bleed Multiple myeloma Surgical History History of colonoscopy History of tubal ligation Family History Father , 50s Stroke Mother , 90 Coronary heart disease Social History Smoking Status: Never smoker Second Hand Exposure: No; Hx Alcohol Use: No Hx Substance Use: No Preferred Language: Czech 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: Effective Adult Education Teacher Required: No Beliefs That Will Affect Care: None marital status: Current Living Situation: Spouse Current Living Situation Comment: with Feels Safe at Home: Yes Safety Concerns: Feels Safe At This Time Assistive Devices: Walker Review of Systems Review of Systems: ESAS Pain 0/3 Dyspnea 1/3 Fatigue 2/3 Drowsiness 0/3 PPS 40% Physical Exam Constitutional: + thin and + frail appearing Respiratory: normal respiratory effort; no labored breathing Musculoskeletal: Extremities: + muscle atrophy Neurologic: awake; not confused Speech / Cognition: normal cognition Psychiatric: Affect: + anxious affect Results & Data ([facility]) Vital Signs (Past 12 Hours) Vital Signs Temp Pulse Pulse Resp BP BP Pulse Ox 11/01/21 08:05 98.6 F 79 16 102/64 93 11/01/21 07:38 63 11/01/21 03:41 98.2 F 70 18 99/45 L 95 O2 Del Method O2 Flow Rate 11/01/21 08:05 Room Air 11/01/21 07:38 11/01/21 03:41 Nasal Cannula 2 PG Care Time/CCT Total # of Minutes Spent Total Time Spent: 90 Total Time Spent with Patient: Total time spent is greater than 50% in coordination of care (as documented) at patient's floor/unit and/or counseling patient: symptom management, goals of care, prognosis, hospice, patient and family education and support Coding Level of Care Code 79516 Initial Inpt Care Lvl 3 Diagnoses Dyspnea R06.00 Anxiety F41.9 Palliative care encounter Z51.5
--- NOTE | 2021-11-01 16:18 | Hospitalist Progress Note ---
Date of Service November 01, 2021 Assessment & Plan (1) Acute combined systolic and diastolic CHF, NYHA class 3: Plan: Presented with bilateral pleural effusion-as below Combined systolic and diastolic heart failure is due to cardiac amyloidosis and is complicated by valvular heart disease Has been receiving intravenous Lasix and spironolactone Will need to be kept on the soap drier tender side to minimize symptoms Appreciate cardiology input and recommendation Cumulative fluid balance is -363 5 mL Oral fluid restrictions is being continued Remains very weak and lethargic Palliative care consulted for guidance of care from here PT OT evaluation-recommended rehab and the patient is willing to go to rehab now Appreciated palliative care input and recommendation Remains extremely weak and lethargic Chest x-ray showed congestive changes and also findings of recent gastric s tapling (2) Acute on chronic diastolic (congestive) heart failure: Plan: As above (3) Cardiac amyloidosis: (4) Pleural effusion: Plan: -Secondary to combined heart failure - s/p bilateral thoracentesis 10/19/2021 -Transitive fluid likely secondary to heart failure -Respiratory status improved but is requiring 2 L to maintain saturation -We will continue Lasix -Chest x-ray showed-moderate amount of pleural effusion with dependent consolidation/atelectasis (5) Multiple myeloma: Plan: IgG kappa 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 No proteinuria and splenomegaly known. She is taking daratumumab every 4 weeks Velcade (bortezomib) added in June 19 and cyclophosphamide (Cytoxan) with last infusion on 09/27 Decadron lowered from 10mg weekly to 8mg weekly. She began having worsening nausea and diarrhea over the past two weeks as well as reflux symptoms PPI and H2 blockers were adjusted and diet changes to include bland diet were recommended Concern with 10 lb weight loss over the last month. GI consulted for thoughts on this. Cont supportive care with antireflux meds and antiemetics Patient to follow-up with primary oncologist as an outpatient-last seen 09/13 Patient missed Decadron 8mg weekly (6) PUD (peptic ulcer disease): Plan: PPI drip for 72 hours. with worsening heart failure picture, will transition this to PO PPI now. appears that nausea is improved Cont carafate Holding aspirin path report from multiple biopsies (+) Amyloidosis Continue with Protonix twice a day (7) Dyspepsia: Plan: 2/2 peptic ulcer disease. Patient on PPI resolved requested to advance diet to regular (8) Weakness: Plan: Likely multifactorial including malnutrition and prolonged hospitalization. - continue to work with PT/OT as patient is anxious about going home -Does not want to go for any more PT and/or OT -Wants to go home (9) Malnutrition: Plan: Ongoing weight loss and food avoidance with diarrhea and dry heaving for two weeks. Likely related to PUD as this is improving now with treatment. Nausea is controlled and diet is being advanced. Doxycycline for amyloid is held. DVT proph Heparin and aspirin held in setting of bleeding ulcer. Full Code Dispo-to rehab when clinically improved. Discussed about disposition Appreciate palliative care input and recommendation-likely to go to skilled care facility Admission and Anticipated Discharge Date Admission Date: October 18, 2021 Subjective 10/30/2021 The patient was seen and examined in medical telemetry unit She has been extremely weak and lethargic does not want to do anything for herself She is going to the bathroom with help She wants to go home and does not want to go to rehab 10/31/2021 The patient was seen and examined in medical telemetry unit She has been a little better today and has been communicating well She has weakness but denies any any other significant symptoms She is willing to go to rehab 11/01/2021 The patient was seen and examined in medical telemetry unit She remains very weak and lethargic denies any chest pain, palpitation or shortness of breath No abdominal pain, nausea and or vomiting Review of Systems Review of Systems: All systems reviewed and are unremarkable except as noted below Neurologic: Generally very weak and lethargic Physical Exam Physical Exam: Lying in bed without any acute distress but looks very depressed Constitutional: + ill appearing and + thin Eyes: PERRL, conjunctivae normal, anicteric sclerae ENMT: external ear and nose normal, oropharynx normal Neck: trachea midline, no thyromegaly Respiratory: no respiratory distress Auscultation: + diminished lung sounds and + crackles (Minimal crackles at the bases) Cardiovascular: Rate/Rhythm: regular rate and regular rhythm; not tachycardic Heart Sounds: normal S1 and normal S2; no murmur Extremities: no edema Gastrointestinal (Abdomen): Inspection/Auscultation: normal bowel sounds; abdomen not distended Percussion/Palpation: abdomen soft; abdomen nontender Neurologic: normal touch/pain/proprioception and moves all extremities; no focal motor deficits Psychiatric: A+Ox3, euthymic affect Lymphatic: no cervical or axillary lymphadenopathy Results & Data Results & Data ([facility]) Vital Signs (Past 12 Hours) Vital Signs Temp Pulse Pulse Resp BP Pulse Ox O2 Del Method 11/01/21 15:42 36.6 C 81 16 110/66 89 L Room Air 11/01/21 08:05 37.0 C 79 16 102/64 93 Room Air 11/01/21 07:38 63 Laboratory Results [facility] 11/01/21 07:01 Sodium 142 Potassium 3.3 L Chloride 99 Carbon Dioxide 39 H BUN 16 Creatinine 0.54 L Glucose 87 Calcium 8.8 Medications Administered Current Inpatient Medications Acetaminophen (Acetaminophen 325 Mg Tab) 650 mg PO Q4H PRN PRN Reason: Pain or Fever Stop: 11/17/21 15:11 Acyclovir (Acyclovir 400 Mg Tab) 400 mg PO AMHS RYANN Stop: 11/17/21 20:59 Last Admin: 10/26/21 09:29 Dose: 400 mg Calcium Carbonate (Calcium Carbonate 500 Mg Chewable Tab) 1,000 mg PO Q6H PRN PRN Reason: Indigestion Stop: 11/23/21 14:27 Escitalopram Oxalate (Escitalopram Oxalate 10 Mg Tab) 10 mg PO QAM RYANN Stop: 11/18/21 08:59 Last Admin: 11/01/21 08:03 Dose: 10 mg Furosemide (Furosemide 40 Mg Tab) 120 mg PO [id number] RYANN Stop: 11/29/21 06:59 Last Admin: 11/01/21 14:57 Dose: 120 mg Melatonin (Melatonin 3 Mg Tab) 3 mg PO HS PRN PRN Reason: Sleep Stop: 11/17/21 21:39 Last Admin: 10/27/21 20:51 Dose: 3 mg Metoclopramide HCl (Metoclopramide Hcl Inj 5 Mg/Ml 2 Ml Vial) 5 mg IV HS RYANN Stop: 11/23/21 20:59 Last Admin: 10/31/21 20:40 Dose: Not Given Midodrine (Midodrine Hcl 2.5 Mg Tab) 2.5 mg PO TID@0800,1200,1700 RYANN Stop: 11/28/21 11:59 Last Admin: 11/01/21 12:33 Dose: 2.5 mg Pantoprazole Sodium (Pantoprazole 40 Mg Tab) 40 mg PO BID [facility] Stop: 11/26/21 20:59 Last Admin: 11/01/21 08:02 Dose: 40 mg Polyethylene Glycol (Polyethylene (Miralax) 17 Gm Pack) 17 gm PO DAILY PRN PRN Reason: Constipation Stop: 11/20/21 11:22 Last Admin: 10/22/21 07:57 Dose: 17 gm Potassium Chloride (Potassium Chloride Crtab 20 Meq Tabcr) 20 meq PO BID [facility] Stop: 12/01/21 08:59 Last Admin: 11/01/21 08:02 Dose: 20 meq Promethazine HCl (Promethazine Hcl 25 Mg Tab) 25 mg PO Q6H PRN PRN Reason: n/v Stop: 11/23/21 14:29 Last Admin: 10/28/21 16:22 Dose: 25 mg Spironolactone (Spironolactone 12.5 Mg Tab) 12.5 mg PO BID [facility] Stop: 11/27/21 20:59 Last Admin: 11/01/21 08:01 Dose: 12.5 mg Sucralfate (Sucralfate 1 Gm/10 Ml Udc) 1 gm PO QID [facility] Stop: 11/25/21 16:59 Last Admin: 11/01/21 12:34 Dose: Not Given
--- NOTE | 2021-11-01 16:20 | Procedure Note ---
Procedure Note Date of Service November 01, 2021 Note Procedure: Therapeutic ultrasound-guided catheter thoracentesis Extension Agent: Dr. Brett Griggs Indication: Pleural effusion Consent: Signed by patient and verified with timeout prior to procedure Anesthesia: 8 mL's of 1% lidocaine without epinephrine given locally Procedure: Consent was verified and timeout performed. Appropriate imaging studies were reviewed prior to the procedure. Patient was placed in a seated position and limited thoracic ultrasound was performed of the right chest. See separate imaging. The site appropriate for thoracentesis was selected. The skin was prepped and draped in normal sterile fashion. Lidocaine was used for local analgesia. Fluid was aspirated via the finder needle. A small skin yelena was made with the scalpel and the catheter over the needle apparatus was advanced over the rib into the pleural space. Using the syringe one-way valve system, a total of 1050 mL's of halley colored fluid was removed. Procedure was terminated due to no further flow. The catheter was removed and observed to be intact. A sterile dressing was applied. Post procedure chest x-ray was ordered. The patient tolerated the procedure well without obvious complication. Coding CPT Codes Pulmonary/Thoracic - Pulmonary and Thoracic: 79635 Thoracentesis w imaging ([id number]) [facility] Procedure Codes (Charges) Pulmonary/Thoracic Procedure 1: Pulmonary and Thoracic: 42865 Thoracentesis w imaging
--- NOTE | 2021-11-01 16:24 | Pulmonology Progress Note ---
Date of Service November 01, 2021 Assessment & Plan (1) Acute on chronic diastolic (congestive) heart failure: (2) Pleural effusion: (3) Cardiac amyloidosis: Plan Status post right thoracentesis with approximately 1 L pleural fluid removed. 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 Can consider Pleurx catheter in the future if symptoms worsen. This can be done on an outpatient basis as well. Admission and Anticipated Discharge Date Admission Date: October 18, 2021 Subjective I was asked to reevaluate the patient today given that she may be going home with hospice. She has had some brief periods of desaturations on room air. She denies any significant chest pain. She does have some mild shortness of breath with exertion. No fevers or chills. I discussed the case with the patient's clamp jig assembler and palliative care physician. Review of Systems Review of Systems: All systems reviewed & are unremarkable except as noted in HPI & below Physical Exam Constitutional: WD/WN, vitals as above Eyes: PERRL, conjunctivae normal, anicteric sclerae ENMT: external ear and nose normal, oropharynx normal Respiratory: Auscultation: + diminished lung sounds and + rales Cardiovascular: RRR, no murmur, no edema Gastrointestinal (Abdomen): normal bowel sounds, soft, nontender, no hepatosplenomegaly Neurologic: PERRL, EOMI, accommodation nl, no face palsy, no dysarthria Psychiatric: A+Ox3, euthymic affect Results & Data Results & Data ([facility]) Vital Signs (Past 12 Hours) Vital Signs Temp Pulse Pulse Resp BP Pulse Ox O2 Del Method 11/01/21 16:19 68 11/01/21 15:42 36.6 C 81 16 110/66 89 L Room Air 11/01/21 08:05 37.0 C 79 16 102/64 93 Room Air 11/01/21 07:38 63 PG Care Time/CCT Total # of Minutes Spent Total Time Spent with Patient: Total time spent is greater than 50% in coordination of care (as documented) at patient's floor/unit and/or counseling patient: Coding Level of Care Code 57775 Subseq Hosp Care Lvl 2 Diagnoses Acute on chronic diastolic (congestive) heart failure I50.33 Pleural effusion J90 Cardiac amyloidosis E85.4; I43
--- NOTE | 2021-11-01 17:07 | XRay Report ---
XR chest 1V portable CLINICAL HISTORY: Status post right thoracentesis. COMPARISON STUDY: Chest radiograph performed earlier today. FINDINGS: No pneumothorax is identified following right thoracentesis. The right pleural effusion has markedly decreased in size. Trace residual right pleural effusion is noted. Small to moderate left l eft pleural effusion is noted. This is likely decreased in size. Left basilar opacity is noted with i mproved left lower lung aeration. Previous described metallic density projects over the mediastinum. This may be within a hiatal hernia. Cardiomegaly is noted. Mild pulmonary edema persists. IMPRESSION: 1. No pneumothorax following right thoracentesis. Marked decrease in size of the right pleural effusi on. 2. Small to moderate left effusion. 3. Indeterminate metallic density which projects over the mediastinum, possibly within the stomach. ACT 112: Negative or not required by law. Electronically signed by: Ayan Guerrero M.D. 11/01/2021 5:05 PM
[2021-11-01] MEDS: METOCLOPRAMIDE HCL INJ 5 MG/ML 2 ML VIAL IV SCH (20:25)
[2021-11-02 07:51] LABS: Calcium 8.7 mg/dl (8.5-10.1); Creatinine Clr Calc Pharmacy 75.9 ml/min; Est GFR (African American) 107.6 ml/min; Est GFR (Non-African American) 92.9 ml/min; Potassium 3.4 mmol/L (3.5-5.1)
[2021-11-02] MEDS: FUROSEMIDE 40 MG TAB PO SCH ×2 (08:36→13:13)
[2021-11-02] MEDS: ESCITALOPRAM OXALATE 10 MG TAB PO SCH (08:37)
[2021-11-02] MEDS: PANTOprazole 40 MG TAB PO SCH ×2 (08:37→20:40)
[2021-11-02] MEDS: POTASSIUM CHLORIDE CRTAB 20 MEQ TABCR PO SCH (08:37)
[2021-11-02] MEDS: SUCRALFATE 1 GM/10 ML UDC PO SCH ×4 (08:37→20:41)
[2021-11-02] MEDS: MIDODRINE HCL 2.5 MG TAB PO SCH ×3 (08:37→17:37)
[2021-11-02] MEDS ORDERED: SPIRONOLACTONE 12.5 MG TAB PO ONE (09:32)
[2021-11-02] MEDS ORDERED: POTASSIUM CHLORIDE CRTAB 20 MEQ TABCR PO STA (09:34)
--- NOTE | 2021-11-02 09:44 | Cardiology Progress Note ---
Date of Service November 02, 2021 Assessment & Plan (1) Acute heart failure with preserved ejection fraction (HFpEF): (2) Cardiac amyloidosis: (3) Multiple myeloma: (4) Hypokalemia: (5) PUD (peptic ulcer disease): Plan: Hospital day 15 76 year old female seen in cardiology follow up. Pt well known to the undersigned at I am her primary medical claims manager , dating back to her diagnosis in February,. -Palliative care input noted and appreciated. -As previously noted, patient had most recently been seen by the advanced heart failure clinic at the [facility] in June,, progress note documents that due to her age, she is not a candidate for advanced heart failure therapies such as consideration of transplant or LVAD. -It is believed that her disease state has progressed to end-stage. -I updated her local hematology oncology provider, Dr. Juan A Luevano with regards to her progress, also agreed that palliative care approach most prudent course of present. Recommend moving forward with home hospice if patient/family are ready for that. I do believe her diuretic medication is a palliative treatment to prevent/minimize symptoms. Proceed with the following medications: Protonix and sucralfate Lexapro Furosemide 120 mg by mouth 2 times per day at 7 AM, 1400 Spironolactone 25 mg p.o. daily Potassium chloride 40 mill equivalents daily in the morning, 20 mill equivalents with evening meal Midodrine 5 mg 3 times daily for blood pressure support. Admission and Anticipated Discharge Date Admission Date: October 18, 2021 Ki Tam is seen in follow up. Since assessed by the undersigned in the morning yesterday, she had undergone palliative right thoracentesis yielding 1 L of pleural fluid. She notes feeling subtle improvement since this. The repeat chest x-ray revealed almost complete resolution of the right-sided pleural fluid, small to moderate left pleural effusion present, but looked less severe than on the previous film. Patient remains on furosemide 120 mg p.o. twice daily. Telemetry reveals sinus rhythm in the 70s with occasional PACs, 1 brief episode of atrial tachycardia noted last evening and this is not new for her. Physical Exam Constitutional: + ill appearing, + cachectic and + frail appearing Respiratory: Auscultation: + diminished lung sounds (Decreased breath sounds bilaterally at the bases); no crackles and no rales Cardiovascular: RRR, no murmur, no edema Rate/Rhythm: regular rate Heart Sounds: normal S1 and normal S2; no murmur Extremities: no edema Gastrointestinal (Abdomen): normal bowel sounds, soft, nontender, no hepatosplenomegaly Neurologic: PERRL, EOMI, accommodation nl, no face palsy, no dysarthria Results & Data ([facility]) Vital Signs (Past 12 Hours) Vital Signs Temp Pulse Pulse Resp BP BP Pulse Ox 11/02/21 08:14 36.7 C 75 18 93/51 L 92 11/02/21 08:05 66 11/01/21 22:53 63 11/02/21 03:05 37 C 56 L 16 113/50 L 94 11/01/21 23:04 37.5 C 68 16 90/41 L 90 O2 Del Method O2 Flow Rate 11/02/21 08:14 Room Air 11/02/21 08:05 11/01/21 22:53 11/02/21 03:05 Nasal Cannula 2 11/01/21 23:04 Room Air Laboratory Results Comprehensive Metabolic Panel 11/02/21 Range/Units 07:07 Sodium 138 (136-145) mmol/L Potassium 3.4 L (3.5-5.1) mmol/L Chloride 96 L (98-107) mmol/L Carbon Dioxide 38 H (21-32) mmol/L BUN 18 (6-23) mg/dl Creatinine 0.53 L (0.6-1.2) mg/dl Glucose 93 (70-99(Fasting)) mg/dl Calcium 8.7 (8.5-10.1) mg/dl Intake and Output 11/01/21 11/02/21 11/02/21 22:59 06:59 14:59 Intake Total 480 / 1140 150 / 1140 Balance 480 / 840 150 / 840 Intake: Oral 480 / 1140 150 / 1140 Other: Weight 55.5 kg Weight Measurement Method Built in [facility]
--- NOTE | 2021-11-02 11:57 | Communication Note ---
Date of Service: November 02, 2021 I called and updated pt's spouse. He did have contact with a home hospice agency yesterday and he is prepared for the transition.
--- NOTE | 2021-11-02 14:10 | Hospitalist Progress Note ---
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 and is complicated by valvular heart disease Has been receiving intravenous Lasix and spironolactone Will need to be kept on the package drier side to minimize symptoms Appreciate cardiology input and recommendation Cumulative fluid balance is -363 5 mL Oral fluid restrictions is being continued Remains very weak and lethargic Palliative care consulted for guidance of care from here PT OT evaluation-recommended rehab and the patient is willing to go to rehab now Appreciated palliative care input and recommendation Remains extremely weak and lethargic Chest x-ray showed congestive changes and also findings of recent gastric s tapling Status post paracentesis on right with drainage of 1050 mL of halley-colored fluid The medications have been adjusted and the patient is waiting for hospice evaluation and discharge Foreign body in stomach Secondary to stapling No issues (2) Acute on chronic diastolic (congestive) heart failure: Plan: As above (3) Cardiac amyloidosis: (4) Pleural effusion: Plan: -Secondary to combined heart failure - s/p bilateral thoracentesis 10/19/2021 -Transitive fluid likely secondary to heart failure -Respiratory status improved but is requiring 2 L to maintain saturation -We will continue Lasix -Chest x-ray showed-moderate amount of pleural effusion with dependent consolidation/atelectasis -Status post right thoracentesis of 1050 mL (5) Multiple myeloma: Plan: IgG kappa 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 No proteinuria and splenomegaly known. She is taking daratumumab every 4 weeks Velcade (bortezomib) added in June 19 and cyclophosphamide (Cytoxan) with last infusion on 09/27 Decadron lowered from 10mg weekly to 8mg weekly. She began having worsening nausea and diarrhea over the past two weeks as well as reflux symptoms PPI and H2 blockers were adjusted and diet changes to include bland diet were recommended Concern with 10 lb weight loss over the last month. GI consulted for thoughts on this. Cont supportive care with antireflux meds and antiemetics Patient to follow-up with primary oncologist as an outpatient-last seen 09/13 Patient missed Decadron 8mg weekly No further treatment, discussed with oncologist by the hooker inspector (6) PUD (peptic ulcer disease): Plan: PPI drip for 72 hours. with worsening heart failure picture, will transition this to PO PPI now. appears that nausea is improved Cont carafate Holding aspirin path report from multiple biopsies (+) Amyloidosis Continue with Protonix twice a day (7) Dyspepsia: Plan: 2/2 peptic ulcer disease. Patient on PPI resolved requested to advance diet to regular (8) Weakness: Plan: Likely multifactorial including malnutrition and prolonged hospitalization. - continue to work with PT/OT as patient is anxious about going home -Does not want to go for any more PT and/or OT -Wants to go home (9) Malnutrition: Plan: Ongoing weight loss and food avoidance with diarrhea and dry heaving for two weeks. Likely related to PUD as this is improving now with treatment. Nausea is controlled and diet is being advanced. Doxycycline for amyloid is held. DVT proph Heparin and aspirin held in setting of bleeding ulcer. Full Code Dispo-to rehab when clinically improved. Discussed about disposition Appreciate palliative care input and recommendation-likely to go to skilled care facility Admission and Anticipated Discharge Date Admission Date: October 18, 2021 Subjective 10/30/2021 The patient was seen and examined in medical telemetry unit She has been extremely weak and lethargic does not want to do anything for herself She is going to the bathroom with help She wants to go home and does not want to go to rehab 10/31/2021 The patient was seen and examined in medical telemetry unit She has been a little better today and has been communicating well She has weakness but denies any any other significant symptoms She is willing to go to rehab 11/01/2021 The patient was seen and examined in medical telemetry unit She remains very weak and lethargic denies any chest pain, palpitation or shortness of breath No abdominal pain, nausea and or vomiting 11/02/2021 The patient was seen and examined in medical telemetry unit She remains very weak and lethargic and has been feeling a little better following thoracentesis Denies any pain and/or more shortness of breath Awaiting hospice evaluation and discharge from the hospital Review of Systems Review of Systems: All systems reviewed and are unremarkable except as noted below Neurologic: Generally very weak and lethargic Physical Exam Physical Exam: Lying in bed without any acute distress but looks very lethargic Constitutional: + ill appearing and + thin Eyes: PERRL, conjunctivae normal, anicteric sclerae ENMT: external ear and nose normal, oropharynx normal Neck: trachea midline, no thyromegaly Respiratory: no respiratory distress Auscultation: + diminished lung sounds and + crackles (Minimal crackles at the bases) Cardiovascular: Rate/Rhythm: regular rate and regular rhythm; not tachycardic Heart Sounds: normal S1 and normal S2; no murmur Extremities: no edema Gastrointestinal (Abdomen): Inspection/Auscultation: normal bowel sounds; abdomen not distended Percussion/Palpation: abdomen soft; abdomen nontender Neurologic: normal touch/pain/proprioception and moves all extremities; no focal motor deficits Psychiatric: A+Ox3, euthymic affect Lymphatic: no cervical or axillary lymphadenopathy Results & Data Results & Data ([facility]) Vital Signs (Past 12 Hours) Vital Signs Temp Pulse Pulse Resp BP BP Pulse Ox 11/02/21 12:11 36.8 C 66 19 101/62 97 11/02/21 09:00 11/02/21 08:14 36.7 C 75 18 93/51 L 92 11/02/21 08:05 66 11/02/21 03:05 37 C 56 L 16 113/50 L 94 O2 Del Method O2 Flow Rate 11/02/21 12:11 Nasal Cannula 2 11/02/21 09:00 Nasal Cannula 2 11/02/21 08:14 Room Air 11/02/21 08:05 11/02/21 03:05 Nasal Cannula 2 Laboratory Results [facility] 11/02/21 07:07 Sodium 138 Potassium 3.4 L Chloride 96 L Carbon Dioxide 38 H BUN 18 Creatinine 0.53 L Glucose 93 Calcium 8.7 Medications Administered Current Inpatient Medications Acetaminophen (Acetaminophen 325 Mg Tab) 650 mg PO Q4H PRN PRN Reason: Pain or Fever Stop: 11/17/21 15:11 Acyclovir (Acyclovir 400 Mg Tab) 400 mg PO AMHS [facility] Stop: 11/17/21 20:59 Last Admin: 10/26/21 09:29 Dose: 400 mg Calcium Carbonate (Calcium Carbonate 500 Mg Chewable Tab) 1,000 mg PO Q6H PRN PRN Reason: Indigestion Stop: 11/23/21 14:27 Escitalopram Oxalate (Escitalopram Oxalate 10 Mg Tab) 10 mg PO QAM [facility] Stop: 11/18/21 08:59 Last Admin: 11/02/21 08:37 Dose: 10 mg Furosemide (Furosemide 40 Mg Tab) 120 mg PO [id number] [facility] Stop: 11/29/21 06:59 Last Admin: 11/02/21 13:13 Dose: 120 mg Melatonin (Melatonin 3 Mg Tab) 3 mg PO HS PRN PRN Reason: Sleep Stop: 11/17/21 21:39 Last Admin: 10/27/21 20:51 Dose: 3 mg Metoclopramide HCl (Metoclopramide Hcl Inj 5 Mg/Ml 2 Ml Vial) 5 mg IV HS RYANN Stop: 11/23/21 20:59 Last Admin: 11/01/21 20:25 Dose: 5 mg Midodrine (Midodrine Hcl 2.5 Mg Tab) 5 mg PO TID@0800,1200,1700 [facility] Stop: 12/02/21 11:59 Last Admin: 11/02/21 12:50 Dose: 5 mg Pantoprazole Sodium (Pantoprazole 40 Mg Tab) 40 mg PO BID [facility] Stop: 11/26/21 20:59 Last Admin: 11/02/21 08:37 Dose: 40 mg Polyethylene Glycol (Polyethylene (Miralax) 17 Gm Pack) 17 gm PO DAILY PRN PRN Reason: Constipation Stop: 11/20/21 11:22 Last Admin: 10/22/21 07:57 Dose: 17 gm Potassium Chloride (Potassium Chloride Crtab 20 Meq Tabcr) 40 meq PO QAM [facility] Stop: 12/03/21 08:59 Potassium Chloride (Potassium Chloride Crtab 20 Meq Tabcr) 20 meq PO PM [facility] Stop: 12/02/21 20:59 Promethazine HCl (Promethazine Hcl 25 Mg Tab) 25 mg PO Q6H PRN PRN Reason: n/v Stop: 11/23/21 14:29 Last Admin: 10/28/21 16:22 Dose: 25 mg Spironolactone (Spironolactone 25 Mg Tab) 25 mg PO QAM [facility] Stop: 12/03/21 08:59 Sucralfate (Sucralfate 1 Gm/10 Ml Udc) 1 gm PO QID [facility] Stop: 11/25/21 16:59 Last Admin: 11/02/21 12:50 Dose: Not Given
[2021-11-02] MEDS: SPIRONOLACTONE 12.5 MG TAB PO SCH (19:23)
[2021-11-02] MEDS: METOCLOPRAMIDE HCL INJ 5 MG/ML 2 ML VIAL IV SCH (20:39)
[2021-11-02] MEDS ORDERED: POTASSIUM CHLORIDE CRTAB 20 MEQ TABCR PO SCH (21:00)
[2021-11-03 06:03] LABS: BUN Creatinine Ratio 39.3 (10-20); Creatinine Clr Calc Pharmacy 71.8 ml/min; Est GFR (African American) 105.7 ml/min; Est GFR (Non-African American) 91.2 ml/min; Potassium 3.6 mmol/L (3.5-5.1)
[2021-11-03] MEDS: FUROSEMIDE 40 MG TAB PO SCH ×2 (06:30→13:01)
[2021-11-03] MEDS: MIDODRINE HCL 2.5 MG TAB PO SCH ×2 (08:16→11:25)
[2021-11-03] MEDS: ESCITALOPRAM OXALATE 10 MG TAB PO SCH (08:16)
[2021-11-03] MEDS: PANTOprazole 40 MG TAB PO SCH (08:16)
[2021-11-03] MEDS: SUCRALFATE 1 GM/10 ML UDC PO SCH ×2 (08:18→13:01)
[2021-11-03] MEDS: POLYETHYLENE (MIRALAX) 17 GM PACK PO PRN (08:25)
[2021-11-03] MEDS ORDERED: POTASSIUM CHLORIDE CRTAB 20 MEQ TABCR PO SCH (09:00)
[2021-11-03] MEDS ORDERED: SPIRONOLACTONE 25 MG TAB PO SCH (09:00)
--- NOTE | 2021-11-03 10:48 | Cardiology Progress Note ---
Date of Service November 03, 2021 Assessment & Plan (1) Acute heart failure with preserved ejection fraction (HFpEF): (2) Cardiac amyloidosis: (3) Multiple myeloma: (4) Hypokalemia: (5) PUD (peptic ulcer disease): Plan: Hospital day 16 76 year old female seen in cardiology follow up. Pt well known to the undersigned at I am her primary integration analyst , dating back to her diagnosis in February,. -As previously noted, patient had most recently been seen by the advanced heart failure clinic at the [facility] in June,, progress note documents that due to her age, she is not a candidate for advanced heart failure therapies such as consideration of transplant or LVAD. -It is believed that her disease state has progressed to end-stage. Patient and family have elected to proceed with home hospice. Per patient a hospital bed and oxygen are at her home and ready for her. I do believe her diuretic medication is a palliative treatment to prevent/minimize symptoms. Proceed with the following medications: Protonix and sucralfate Lexapro Furosemide 120 mg by mouth 2 times per day at 7 AM, 1400 Spironolactone 25 mg p.o. daily Potassium chloride 40 mill equivalents daily in the morning, 20 mill equivalents with evening meal Midodrine 5 mg 3 times daily for blood pressure support. Bowel regimen as per hospitalist service. Pt stable for discharge for home hospice from my standpoint when her family / resources are ready. Admission and Anticipated Discharge Date Admission Date: October 18, 2021 Subjective Mrs Hogue is seen in cardiology follow up. She is laying supine and her breathing is comfortable. She just notes profound weakness. Notes no bowel movement for the last 3 days. Telemetry reveals SR in the 60s. Physical Exam Constitutional: + ill appearing, + cachectic and + frail appearing Respiratory: Auscultation: + diminished lung sounds (Decreased breath sounds bilaterally at the bases); no crackles and no rales Cardiovascular: RRR, no murmur, no edema Rate/Rhythm: regular rate Heart Sounds: normal S1 and normal S2; no murmur Extremities: no edema Gastrointestinal (Abdomen): normal bowel sounds, soft, nontender, no hepatosplenomegaly Neurologic: PERRL, EOMI, accommodation nl, no face palsy, no dysarthria Results & Data ([facility]) Vital Signs (Past 12 Hours) Vital Signs Temp Pulse Pulse Resp BP BP Pulse Ox 11/03/21 09:00 11/03/21 08:50 63 11/03/21 06:43 36.5 C 60 18 92/55 L 94 11/03/21 04:00 36.8 C 57 L 18 91/55 L 97 11/03/21 00:08 36.8 C 57 L 18 94/57 L 96 11/02/21 23:48 11/02/21 23:43 60 O2 Del Method O2 Flow Rate 11/03/21 09:00 Nasal Cannula 2 11/03/21 08:50 11/03/21 06:43 Room Air 11/03/21 04:00 Room Air 11/03/21 00:08 2 11/02/21 23:48 Room Air 2 11/02/21 23:43
[2021-11-03] MEDS ORDERED: bisacodyL 10 MG SUPP PR STA (11:06)
--- NOTE | 2021-11-03 11:46 | Hospitalist Progress Note ---
Date of Service November 03, 2021 Assessment & Plan (1) Acute combined systolic and diastolic CHF, NYHA class 3: Plan: Presented with bilateral pleural effusion-as below Combined systolic and diastolic heart failure is due to cardiac amyloidosis and is complicated by valvular heart disease Has been receiving intravenous Lasix and spironolactone Will need to be kept on the dipper and drier side to minimize symptoms Appreciate cardiology input and recommendation Cumulative fluid balance is -363 5 mL Oral fluid restrictions is being continued Remains very weak and lethargic Palliative care consulted for guidance of care from here PT OT evaluation-recommended rehab and the patient is willing to go to rehab now Appreciated palliative care input and recommendation Remains extremely weak and lethargic Chest x-ray showed congestive changes and also findings of recent gastric s tapling Status post paracentesis on right with drainage of 1050 mL of halley-colored fluid The medications have been adjusted and the patient is waiting for hospice evaluation and discharge The reassured that they have everything that they need at home for ongoing hospice care at home The patient remains stable and will be discharged home this afternoon Foreign body in stomach Secondary to stapling No issues Constipation Has been getting MiraLAX Dulcolax suppositories ordered (2) Acute on chronic diastolic (congestive) heart failure: Plan: As above (3) Cardiac amyloidosis: (4) Pleural effusion: Plan: -Secondary to combined heart failure - s/p bilateral thoracentesis 10/19/2021 -Transitive fluid likely secondary to heart failure -Respiratory status improved but is requiring 2 L to maintain saturation -We will continue Lasix -Chest x-ray showed-moderate amount of pleural effusion with dependent consolidation/atelectasis -Status post right thoracentesis of 1050 mL -No shortness of breath at rest (5) Multiple myeloma: Plan: IgG kappa 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 No proteinuria and splenomegaly known. She is taking daratumumab every 4 weeks Velcade (bortezomib) added in June 19 and cyclophosphamide (Cytoxan) with last infusion on 09/27 Decadron lowered from 10mg weekly to 8mg weekly. She began having worsening nausea and diarrhea over the past two weeks as well as reflux symptoms PPI and H2 blockers were adjusted and diet changes to include bland diet were recommended Concern with 10 lb weight loss over the last month. GI consulted for thoughts on this. Cont supportive care with antireflux meds and antiemetics Patient to follow-up with primary oncologist as an outpatient-last seen 09/13 Patient missed Decadron 8mg weekly No further treatment, discussed with oncologist by the allergist/immunologist physician (6) PUD (peptic ulcer disease): Plan: PPI drip for 72 hours. with worsening heart failure picture, will transition this to PO PPI now. appears that nausea is improved Cont carafate Holding aspirin path report from multiple biopsies (+) Amyloidosis Continue with Protonix twice a day (7) Dyspepsia: Plan: 2/2 peptic ulcer disease. Patient on PPI resolved requested to advance diet to regular (8) Weakness: Plan: Likely multifactorial including malnutrition and prolonged hospitalization. - continue to work with PT/OT as patient is anxious about going home -Does not want to go for any more PT and/or OT -Wants to go home -Discharged home this afternoon with hospice care at home (9) Malnutrition: Plan: Ongoing weight loss and food avoidance with diarrhea and dry heaving for two weeks. Likely related to PUD as this is improving now with treatment. Nausea is controlled and diet is being advanced. Doxycycline for amyloid is held. DVT proph Heparin and aspirin held in setting of bleeding ulcer. Full Code Dispo-to rehab when clinically improved. Discussed about disposition Appreciate palliative care input and recommendation-likely to go to skilled care facility Discussed with the and the patient in detail Admission and Anticipated Discharge Date Admission Date: October 18, 2021 Subjective 10/30/2021 The patient was seen and examined in medical telemetry unit She has been extremely weak and lethargic does not want to do anything for herself She is going to the bathroom with help She wants to go home and does not want to go to rehab 10/31/2021 The patient was seen and examined in medical telemetry unit She has been a little better today and has been communicating well She has weakness but denies any any other significant symptoms She is willing to go to rehab 11/01/2021 The patient was seen and examined in medical telemetry unit She remains very weak and lethargic denies any chest pain, palpitation or sh ortness of breath No abdominal pain, nausea and or vomiting 11/02/2021 The patient was seen and examined in medical telemetry unit She remains very weak and lethargic and has been feeling a little better following thoracentesis Denies any pain and/or more shortness of breath Awaiting hospice evaluation and discharge from the hospital 11/03/2021 The patient was seen and examined in medical telemetry unit in presence of the She remains extremely weak but the condition has not deteriorated She has not had a bowel movement for 3 days Denies any other significant symptoms Review of Systems Review of Systems: All systems reviewed and are unremarkable except as noted below Physical Exam Physical Exam: Lying in bed without any acute distress but looks very lethargic Constitutional: + ill appearing and + thin Eyes: PERRL, conjunctivae normal, anicteric sclerae ENMT: external ear and nose normal, oropharynx normal Neck: trachea midline, no thyromegaly Respiratory: no respiratory distress Auscultation: + diminished lung sounds and + crackles (Minimal crackles at the bases) Cardiovascular: Rate/Rhythm: regular rate and regular rhythm; not tachycardic Heart Sounds: normal S1 and normal S2; no murmur Extremities: no edema Gastrointestinal (Abdomen): Inspection/Auscultation: normal bowel sounds; abdomen not distended Percussion/Palpation: abdomen soft; abdomen nontender Musculoskeletal: No acute arthritis in any joint Neurologic: normal touch/pain/proprioception and moves all extremities; no focal motor deficits Psychiatric: A+Ox3, euthymic affect Lymphatic: no cervical or axillary lymphadenopathy Results & Data Results & Data ([facility]) Vital Signs (Past 12 Hours) Vital Signs Temp Pulse Pulse Resp BP BP Pulse Ox 11/03/21 11:22 36.7 C 72 18 105/70 97 11/03/21 09:00 11/03/21 08:50 63 11/03/21 06:43 36.5 C 60 18 92/55 L 94 11/03/21 04:00 36.8 C 57 L 18 91/55 L 97 11/03/21 00:08 36.8 C 57 L 18 94/57 L 96 11/02/21 23:48 11/02/21 23:43 60 O2 Del Method O2 Flow Rate 11/03/21 11:22 Nasal Cannula 2 11/03/21 09:00 Nasal Cannula 2 11/03/21 08:50 11/03/21 06:43 Room Air 11/03/21 04:00 Room Air 11/03/21 00:08 2 11/02/21 23:48 Room Air 2 11/02/21 23:43 Laboratory Results BMP 11/03/21 05:35 Sodium 138 Potassium 3.6 Chloride 95 L Carbon Dioxide 36 H BUN 22 Creatinine 0.56 L Glucose 86 Calcium 9.0 Medications Administered Current Inpatient Medications Acetaminophen (Acetaminophen 325 Mg Tab) 650 mg PO Q4H PRN PRN Reason: Pain or Fever Stop: 11/17/21 15:11 Acyclovir (Acyclovir 400 Mg Tab) 400 mg PO AMHS RYANN Stop: 11/17/21 20:59 Last Admin: 10/26/21 09:29 Dose: 400 mg Calcium Carbonate (Calcium Carbonate 500 Mg Chewable Tab) 1,000 mg PO Q6H PRN PRN Reason: Indigestion Stop: 11/23/21 14:27 Escitalopram Oxalate (Escitalopram Oxalate 10 Mg Tab) 10 mg PO QAM RYANN Stop: 11/18/21 08:59 Last Admin: 11/03/21 08:16 Dose: 10 mg Furosemide (Furosemide 40 Mg Tab) 120 mg PO [id number] RYANN Stop: 11/29/21 06:59 Last Admin: 11/03/21 06:30 Dose: 120 mg Melatonin (Melatonin 3 Mg Tab) 3 mg PO HS PRN PRN Reason: Sleep Stop: 11/17/21 21:39 Last Admin: 10/27/21 20:51 Dose: 3 mg Metoclopramide HCl (Metoclopramide Hcl Inj 5 Mg/Ml 2 Ml Vial) 5 mg IV HS RYANN Stop: 11/23/21 20:59 Last Admin: 11/02/21 20:39 Dose: 5 mg Midodrine (Midodrine Hcl 2.5 Mg Tab) 5 mg PO TID@0800,1200,1700 RYANN Stop: 12/02/21 11:59 Last Admin: 11/03/21 11:25 Dose: 5 mg Pantoprazole Sodium (Pantoprazole 40 Mg Tab) 40 mg PO BID RYANN Stop: 11/26/21 20:59 Last Admin: 11/03/21 08:16 Dose: 40 mg Polyethylene Glycol (Polyethylene (Miralax) 17 Gm Pack) 17 gm PO DAILY PRN PRN Reason: Constipation Stop: 11/20/21 11:22 Last Admin: 11/03/21 08:25 Dose: 17 gm Potassium Chloride (Potassium Chloride Crtab 20 Meq Tabcr) 40 meq PO QAM RYANN Stop: 12/03/21 08:59 Last Admin: 11/03/21 08:16 Dose: 40 meq Potassium Chloride (Potassium Chloride Crtab 20 Meq Tabcr) 20 meq PO PM RYANN Stop: 12/02/21 20:59 Last Admin: 11/02/21 20:40 Dose: 20 meq Promethazine HCl (Promethazine Hcl 25 Mg Tab) 25 mg PO Q6H PRN PRN Reason: n/v Stop: 11/23/21 14:29 Last Admin: 10/28/21 16:22 Dose: 25 mg Spironolactone (Spironolactone 25 Mg Tab) 25 mg PO QAM [facility] Stop: 12/03/21 08:59 Last Admin: 11/03/21 08:16 Dose: 25 mg Sucralfate (Sucralfate 1 Gm/10 Ml Udc) 1 gm PO QID RYANN Stop: 11/25/21 16:59 Last Admin: 11/03/21 08:18 Dose: 1 gm
--- NOTE | 2021-11-07 19:34 | Discharge Summary ---
Date of Service November 04, 2021 Admission HPI Per Admitting Provider Chief Complaint: Worsening shortness of breath with exertional activity Primary Care Provider: Rosendo Boyce DO Patient is a 76-year-old female with a past medical history of CHF amyloidosis, paroxysmal atrial tachycardia, multiple myeloma presenting to the hospital with complaints of worsening shortness of breath with exertional activity as well as weakness and tiredness. Also states that she has been having poor appetite for the last couple of weeks associated with dry heaves. States she is getting chemotherapy for multiple myeloma and she was supposed to have a session today however she went to her oncologist office who recommended patient to presented to the hospital today. Otherwise patient was noted to have significant fluid overload on imaging and found to have likely CHF exacerbation we are called admit the patient for such. States that she does have abdominal discomfort describes it as diffuse vague not relieved with defecation. States she has 1 bowel movement daily that is normally loose. Otherwise patient denies significant chest pain lightheadedness fever chills. States she is does not get significantly short of breath with laying down. States she has some whitish phlegm production in the mornings. Otherwise she states she sees Dr. Chaidez who is her gamer. Admission Exam Per Admitting Provider Physical Exam: Constitutional:WD/WN, vitals as above ENMT: external ear and nose normal, oropharynx normal Neck: trachea midline, no thyromegaly Respiratory: Diminished breath sounds bilateral at the lower and mid lung dow. No significant wheezing noted no rhonchi otherwise appreciated currently. Cardiovascular:RRR, no murmur, Heart Sounds:no murmur. Has +1 bilateral lower extremity edema Gastrointestinal (Abdomen):normal bowel sounds, soft, nontender, no hepatosplenomegaly Musculoskeletal:no cyanosis or clubbing, extremities motor strength 5/5 Skin: no rashes, warm and dry Neurologic: patellar DTR's 2+ bilat, sensation intact and PERRL, EOMI, accommodation nl, no face palsy, no dysarthria Psychiatric: A+Ox3, euthymic affect Genitourinary:Not assessed Lymphatic: no cervical or axillary lymphadenopathy Principal Diagnosis Acute combined systolic and diastolic CHF, cardiac amyloidosis, multiple myeloma, pleural effusion status post thoracentesis Discharge Exam Lying in bed without any acute distress but looks very lethargic Constitutional + ill appearing and + thin Eyes PERRL, conjunctivae normal, anicteric sclerae ENMT external ear and nose normal, oropharynx normal Neck trachea midline, no thyromegaly Respiratory no respiratory distress Auscultation: + diminished lung sounds and + crackles (Minimal crackles at the bases) Cardiovascular Rate/Rhythm: regular rate and regular rhythm; not tachycardic Heart Sounds: normal S1 and normal S2; no murmur Extremities: no edema Gastrointestinal (Abdomen) Inspection/Auscultation: normal bowel sounds; abdomen not distended Percussion/Palpation: abdomen soft; abdomen nontender Neurologic normal touch/pain/proprioception and moves all extremities; no focal motor deficits Psychiatric A+Ox3, euthymic affect Lymphatic no cervical or axillary lymphadenopathy Discharge Data Allergies Allergy/AdvReac Type Severity Reaction Status Date / Time No Known Allergies Allergy Unknown ` Verified 10/18/21 12:27 Consultations 10/18/21 14:43 ED Decision to Admit Stat 10/18/21 15:06 Consult Cardiology Stat 10/18/21 15:46 Consult Pulmonology Routine 10/24/21 14:27 Consult Gastroenterology Routine 10/24/21 16:06 Consult Anesthesiology Routine 10/30/21 09:47 Consult Palliative Care Routine Procedures Performed Operation Date: 10/25/21 17:00 Actual Procedures p EGD Hemostasis - Alaina Amos MD Ordered Studies 10/18/21 10:57 CT Abd and Pelvis [CT abd pelvis IV con only] Stat CT angio chest PE protocol Stat 10/19/21 08:57 US point of care ultrasound Stat 11/01/21 15:43 US point of care ultrasound Urgent Hospital Course (1) Acute combined systolic and diastolic CHF, NYHA class 3: Presented with bilateral pleural effusion-as below Combined systolic and diastolic heart failure is due to cardiac amyloidosis and is complicated by valvular heart disease Has been receiving intravenous Lasix and spironolactone Will need to be kept on the impregnator and drier side to minimize symptoms Appreciate cardiology input and recommendation Cumulative fluid balance is -363 5 mL Oral fluid restrictions is being continued Remains very weak and lethargic Palliative care consulted for guidance of care from here PT OT evaluation-recommended rehab and the patient is willing to go to rehab now Appreciated palliative care input and recommendation Remains extremely weak and lethargic Chest x-ray showed congestive changes and also findings of recent gastric stapling Status post paracentesis on right with drainage of 1050 mL of halley-colored fluid The medications have been adjusted and the patient is waiting for hospice evaluation and discharge The reassured that they have everything that they need at home for ongoing hospice care at home The patient remains stable and will be discharged home this afternoon Foreign body in stomach Secondary to stapling No issues Constipation Has been getting MiraLAX Dulcolax suppositories ordered (2) Acute on chronic diastolic (congestive) heart failure: As above (3) Cardiac amyloidosis: (4) Pleural effusion: -Secondary to combined heart failure - s/p bilateral thoracentesis 10/19/2021 -Transitive fluid likely secondary to heart failure -Respiratory status improved but is requiring 2 L to maintain saturation -We will continue Lasix -Chest x-ray showed-moderate amount of pleural effusion with dependent consolidation/atelectasis -Status post right thoracentesis of 1050 mL -No shortness of breath at rest (5) Multiple myeloma: IgG kappa 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 No proteinuria and splenomegaly known. She is taking daratumumab every 4 weeks Velcade (bortezomib) added in June 19 and cyclophosphamide (Cytoxan) with last infusion on 09/27 Decadron lowered from 10mg weekly to 8mg weekly. She began having worsening nausea and diarrhea over the past two weeks as well as reflux symptoms PPI and H2 blockers were adjusted and diet changes to include bland diet were recommended Concern with 10 lb weight loss over the last month. GI consulted for thoughts on this. Cont supportive care with antireflux meds and antiemetics Patient to follow-up with primary oncologist as an outpatient-last seen 09/13 Patient missed Decadron 8mg weekly No further treatment, discussed with oncologist by the gamer (6) PUD (peptic ulcer disease): PPI drip for 72 hours. with worsening heart failure picture, will transition this to PO PPI now. appears that nausea is improved Cont carafate Holding aspirin path report from multiple biopsies (+) Amyloidosis Continue with Protonix twice a day (7) Dyspepsia: 2/2 peptic ulcer disease. Patient on PPI resolved requested to advance diet to regular (8) Weakness: Likely multifactorial including malnutrition and prolonged hospitalization. - continue to work with PT/OT as patient is anxious about going home -Does not want to go for any more PT and/or OT -Wants to go home -Discharged home this afternoon with hospice care at home (9) Malnutrition: Ongoing weight loss and food avoidance with diarrhea and dry heaving for two weeks. Likely related to PUD as this is improving now with treatment. Nausea is controlled and diet is being advanced. Doxycycline for amyloid is held. DVT proph Heparin and aspirin held in setting of bleeding ulcer. Full Code Dispo-to rehab when clinically improved. Discussed about disposition Appreciate palliative care input and recommendation-likely to go to skilled care facility Discussed with the and the patient in detail Total Time Total Time Spent Total Time Spent (In Minutes): 35 minutes Discharge Plan Discharge Items Patient Disposition: Hospice - Home Reason For Visit: CHF Discharge Diagnosis: Acute combined systolic and diastolic CHF, cardiac amyloidosis, multiple myeloma, pleural effusion status post thoracentesis Condition on Discharge: Fair Activity: Resume your previous activity Non-emergency contact: Primary Care Provider and [employer] Call non-emergency contact if: you have any medication questions and your symptoms worsen Follow-up/Referrals: Garrett Molina DO [[employer]] - (Date & Time 11/01/2021 3:00 PM Provider Garrett Molina DO Department Cardiology, [facility] ) Rosendo Boyce DO [Primary Care Provider] - ( ) Diet: Heart Healthy Fluids: 1200ml (5 cups) Addtl Attending Provider Instructions: You were admitted due to shortness of breath related to heart failure. You were treated with IV lasix to remove fluid from your lungs. Pulmonlogists removed fluid from around your lungs on both sides with a needle. Cardiology also helped with management of your care. You were also seen by PT/OT and they recommended home with support from your . You improved from a cardiology and breathing standpoint and were ready for discharge. You should follow up with your primary care doctor, [employer], and a GI specialist to evaluate your lack of appetite that might be replated to your amyloid. Please take precautions to avoid falls Take your medications as advised Further management will depend on hospice care Pending Studies at Discharge: No Stand-Alone Forms: My [employer], Smoking Cessation Medications and DC Order Prescriptions: New nitroglycerin [Nitrostat] 0.4 mg Tablet, Sublingual 0.4 mg sublingual UD PRN (Reason: chest pain) Qty: 14 0RF aspirin 81 mg Tablet,Delayed Release (Dr/Ec) 81 mg PO QAM Qty: 30 0RF polyethylene glycol 3350 [Miralax] 17 gram Powder In Packet 17 g PO DAILY PRN (Reason: constipation) Qty: 30 0RF sucralfate 100 mg/mL Suspension 1 g PO QID 30 Days Qty: 1200 0RF potassium chloride 20 mEq Tablet,Er Particles/Crystals 20 meq PO PM 30 Days Qty: 30 0RF pantoprazole 40 mg Tablet,Delayed Release (Dr/Ec) 40 mg PO BID 30 Days Qty: 60 0RF calcium carbonate [Tums] 200 mg calcium (500 mg) Tablet,Chewable 1,000 mg PO Q6H PRN (Reason: dyspepsia) Qty: 30 0RF midodrine 2.5 mg Tablet 5 mg PO TID@0800,1200,1700 Qty: 60 0RF furosemide 40 mg Tablet 120 mg PO [id number] 15 Days Qty: 90 0RF potassium chloride 20 mEq Tablet,Er Particles/Crystals 40 meq PO QAM Qty: 60 0RF Continued cyanocobalamin (vitamin B-12) [Vitamin B-12] 1,000 mcg Tablet 1,000 mcg PO DAILY cholecalciferol (vitamin D3) [Vitamin D3] 25 mcg (1,000 unit) Capsule 25 mcg PO DAILY escitalopram oxalate 10 mg tablet 10 mg PO QAM acyclovir 400 mg tablet 400 mg PO AMHS dexamethasone 4 mg tablet 8 mg PO WK Rx Instructions: take on spironolactone 25 mg tablet 25 mg PO QAM prochlorperazine maleate 10 mg tablet 10 mg PO Q6 PRN (Reason: Nausea) Discontinued furosemide 40 mg tablet 120 mg PO QAM Rx Instructions: take 3 tablets in the morning potassium chloride 20 mEq tablet,ER particles/crystals See Rx Instructions .ROUTE .COMPLEX Rx Instructions: take 2 tablets in the morning, 1 in the afternoon,1 tablet in the evening. on the days you take metolazone take 2 tablets in the afternoon. omeprazole 20 mg Tablet,Delayed Release (Dr/Ec) 20 mg PO QAM doxycycline hyclate 100 mg Capsule 100 mg PO BID Qty: 60 0RF metolazone 2.5 mg tablet 2.5 mg PO WK Rx Instructions: saturdays Discharge Orders: Discharge Order (Routine); Ordered 11/03/21 Ordered By: Lexi Wallace/Other Patient Handouts: Soft Randolph Diet Dc Admission Data Admit Date/Time: 10/18/21 15:12 Attending Provider: Lexi Galvan Admit Provider: Poncho Dowd Primary Care Provider: Rosendo Boyce Other Providers: [facility] ; Poncho Dowd ; Shiva Linda ; Brett Griggs ; Alaina Amos ; Markie Parra ; Cristo Patel ; Xochitl Toth Other Interventions: Discharge Summary Assessment (RN) Last Done: 11/03/21 12:08
== END 2021-11-03 14:00 | disposition hospice, home (50) | DRG 545 ==
LOC: ED 10:03 → SUATTDRO 15:12 → 2E 15:12 → 2N 10-24 09:00

== ENCOUNTER 2022-11-22 10:21 | Observation (INO) ==
--- NOTE | 2022-11-22 11:03 | Emergency Department Note ---
Impression & Plan Pulmonary edema, Abnormal EKG, Elevated troponin I level, Abdominal pain, epigastric, Rhinovirus infection ED Provider Note NAME: ARIA MAGANA AGE: 77 SEX: F : 1945 ARRIVES VIA: Walk-In INFORMANT: Patient, ED PROVIDER(S): Todd Hernandez DO CHIEF COMPLAINT: Difficulty breathing HPI: The patient is a 77-year-old female who presented to the emergency department with multiple complaints. Over the course the last few days she is noticing difficulty breathing. She has had orthopnea and cough. She does have a productive cough. She denies having any fever. She denies having any lower extremity swelling but does note extensive distended abdomen as well as epigastric pain. The patient did not see her family doctor for the symptoms. She has extensive cardiac history. The patient presented to the emergency department because of ongoing and worsening symptoms. The patient states otherwise she has been compliant with her outpatient medications. ROS: See above HPI for pertinent positives & negatives. A total of 10 systems reviewed and were otherwise negative. PAST MEDICAL HISTORY: See Below PAST SURGICAL HISTORY: See Below FAMILY HISTORY: See Below SOCIAL HISTORY: See Below HOME MEDICATIONS: See Below ALLERGIES: See Below VITALS: See Below PHYSICAL EXAMINATION: GENERAL: The patient is awake and alert. She is somewhat anxious appearing. EYES: The conjunctivae are clear. The pupils are round and reactive. EARS, NOSE, MOUTH AND THROAT: The nose is without any evidence of any deformity. NECK: The neck is nontender and supple. RESPIRATORY: Normal respiratory effort is noted there is no evidence of wheezing rhonchi or rales CARDIOVASCULAR: Regular rate and rhythm noted there no murmurs rubs or gallops normal S1 normal S2. GASTROINTESTINAL: The abdomen is soft. The abdomen is distended. There is epigastric and right upper quadrant tenderness to palpation. MUSCULOSKELETAL/EXTREMITIES: There is no evidence of gross deformity full range of motion is noted in the hips and shoulders. SKIN: Trace pedal edema was noted bilaterally. NEUROLOGIC: Patient is awake alert and oriented x3. MEDICAL DECISION MAKING: The patient is a 77-year-old female who presented to the emergency department with her significant other for an evaluation of difficulty breathing. The patient was having epigastric pain difficulty breathing as well as wheezing. She has a history of pulmonary edema as well as an extensive cardiac history. Her EKG was found to have some changes compared to previous and her troponin was elevated. She always has a chronically elevated troponin. This was no higher than usual. I discussed the patient's laboratory and radiographic studies with her. Ultimately given her findings I did [facility] The patient may require further inpatient management. The patient may also require further radiographic studies in the way of CT. I will prefer to make this decision in conjunction with the admitting team. Triage Nursing notes reviewed. Prior medical records reviewed Vital Signs: reviewed and remarkable for no significant abnormalities Differential diagnosis: Reactive airway disease, pneumonia, pneumothorax, COPD, CHF, infections, cardiac ischemia, pulmonary embolism, musculoskeletal, gastrointestinal, as well as other pathologies. ER treatment provided: See below Diagnostics interpreted by me: ECG: EKG was obtained in the emergency department. My interpretation is atrial fibrillation at 68 bpm. There is no ectopy. Anterior ST depressions were noted with a right bundle branch block pattern. This was compared to a tracing from October 18, 2021. The bundle branch and the ST abnormalities are new compared to the previous tracing. Cardiac Monitoring: An order was placed for continuous cardiac monitoring. The monitor shows a rate of 68 bpm with sinus rhythm. Laboratory studies: As stated above and show below. Imaging studies: See below. Radiographic imaging was reviewed by myself Consultation(s): I discussed this case with Christy who [facility]. Past Med/Surg History Medical History Acute combined systolic and diastolic CHF, NYHA class 3 Acute on chronic diastolic (congestive) heart failure Cardiac amyloidosis Chronic diastolic heart failure Elevated troponin GI bleed Multiple myeloma Nausea & vomiting Surgical History History of colonoscopy History of tubal ligation Family History Father , 50s Stroke Mother , 90 Coronary heart disease Social History Smoking Status: Never smoker Second Hand Exposure: No; Do You Dip or Chew Tobacco: No; Hx Alcohol Use: No Hx Substance Use: No Preferred Language: Irish 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: Effective Director Blood Bank Required: No Beliefs That Will Affect Care: None marital status: Current Living Situation: Spouse Current Living Situation Comment: with Feels Safe at Home: Yes Assistive Devices: Walker Allergies Allergies Allergy/AdvReac Type Severity Reaction Status Date / Time No Known Allergies Allergy Unknown ` Verified 11/22/22 13:05 Home Meds Home Medications Medication Instructions Recorded Confirmed cholecalciferol (vitamin D3) 25 25 mcg PO DAILY 05/14/21 11/22/22 mcg (1,000 unit) capsule (Vitamin D3) cyanocobalamin (vitamin B-12) 1,000 mcg PO DAILY 05/14/21 11/22/22 1,000 mcg tablet (Vitamin B-12) azithromycin 250 mg tablet See Rx Instructions .Route .COMPLEX 11/22/22 11/22/22 furosemide 40 mg tablet See Rx Instructions .Route .COMPLEX 11/22/22 11/22/22 midodrine 5 mg tablet 5 mg PO .TID@0800,1200,1700 11/22/22 11/22/22 potassium chloride 20 mEq 20 meq PO QAM 11/22/22 11/22/22 tablet,extended release(part/cryst) sucralfate 100 mg/mL oral 10 ml PO QID 11/22/22 11/22/22 suspension Previous Rx's Medication Instructions Recorded aspirin 81 mg tablet,delayed 81 mg PO QAM #30 tabs 10/23/21 release calcium carbonate 200 mg calcium 1,000 mg PO Q6H PRN dyspepsia #30 11/03/21 (500 mg) chewable tablet (Tums) tabs polyethylene glycol 3350 17 gram 17 g PO DAILY PRN constipation #30 11/03/21 oral powder packet (Miralax) ea Results & Data (ED) Vital Signs Vital Signs - 24 hr 11/22/22 10:24 11/22/22 11:35 11/22/22 11:21 Temperature 36.7 C Temperature Source Temporal Artery Scan Pulse Rate 74 68 Respiratory Rate 16 Blood Pressure 128/63 Blood Pressure Mean 84 Pulse Oximetry 97 93 Oxygen Delivery Method Room Air Room Air Sepsis Recent Fever Within 48 Hours No Sepsis New/Unexplained Change in Mental Status N/A Sepsis Action Taken by Nursing No Action Required 11/22/22 11:30 Temperature Temperature Source Pulse Rate 68 Respiratory Rate 21 Blood Pressure 120/79 Blood Pressure Mean 92 Pulse Oximetry 94 Oxygen Delivery Method Room Air Sepsis Recent Fever Within 48 Hours Sepsis New/Unexplained Change in Mental Status Sepsis Action Taken by Long Term Medications Current Medication List: was personally reviewed by me Laboratory Data Attestation: I reviewed the patient's lab results. 11/22/22 11:02 Lab Results 11/22/22 11/22/22 11/22/22 Range/Units 11:02 11:02 11:02 WBC (4.8-10.8) K/ul RBC (4.20-5.40) M/uL Hgb (12.0-16.0) g/dl Hct (37.0-47.0) % MCV (80.0-100.0) fL MCH (25.0-34.0) pg MCHC (32.0-36.0) g/dL RDW Std Deviation (36.4-46.3) fL RDW Coeff of Nasir (11.5-14.5) % Plt Count (130-400) K/uL MPV (9.4-12.4) fL Immature Gran % (Auto) % Neut % (Auto) % Lymph % (Auto) % [place] % (Auto) % Eos % (Auto) % Baso % (Auto) % Neut # (Auto) (1.40-6.50) K/uL Lymph # (Auto) (1.20-3.40) K/uL [place] # (Auto) (0.11-0.59) K/uL Eos # (Auto) (0.00-0.50) K/uL Baso # (Auto) (0.00-0.20) K/uL Immature Gran # (Auto) (0.01-0.20) K/uL PT 11.7 (9.0-12.0) Seconds INR 1.1 (0.9-1.1) APTT 25.6 (21.0-31.0) Seconds PTT Ratio 0.9 VBG pH (7.36-7.41) VBG pCO2 (38-50) mmHg VBG pO2 mmHg VBG HCO3 mmol/L VBG O2 Saturation % VBG Base Excess mEq/L Sodium 138 (136-145) mmol/L Potassium 3.2 L (3.5-5.1) mmol/L Chloride 104 (98-107) mmol/L Carbon Dioxide 25 (21-32) mmol/L Anion Gap 9 (3-11) BUN 16 (6-23) mg/dl Creatinine 0.50 L (0.6-1.2) mg/dl Est Cr Clr Drug Dosing 79.2 ml/min Est GFR ( Amer) 109.0 ml/min Est GFR (Non-Af Amer) 94.0 ml/min BUN/Creatinine Ratio 32.0 H (10-20) Glucose 111 H (70-99(Fasting)) mg/dl Lactate 2.3 H* (0.4-2.0) mmol/L Calcium 9.0 (8.6-10.3) mg/dl Magnesium 2.0 (1.7-2.4) mg/dl Total Bilirubin 1.2 H (0.2-1.0) mg/dl AST 26 (13-39) U/L ALT 17 (7-52) U/L Alkaline Phosphatase 84 (34-104) U/L Troponin I High Sens 93.6 H* (0-14) pg/ml B-Natriuretic Peptide (0-100) pg/ml Total Protein 8.0 (6.0-8.3) gm/dl Albumin 3.4 (3.4-5.0) gm/dl Globulin 4.6 H (2.5-4.0) gm/dl Albumin/Globulin Ratio 0.7 L (0.9-2) Lipase 32 (11-82) U/L Urine Color Urine Appearance (Clear) Urine pH (4.5-7.5) Ur Specific [place] (1.000-1.030) Urine Protein (Negative) Urine Glucose (UA) (Negative) Urine Ketones (Negative) Urine Blood (Negative) Urine Nitrite (Negative) Urine Bilirubin (Negative) Urine Urobilinogen (Negative) Ur Leukocyte Esterase (Negative) Adenovirus (PCR) (NotDetected) B. pertussis DNA (PCR) (NotDetected) B.parapertussis DNA PCR (NotDetected) C. pneumoniae DNA (PCR) (NotDetected) Coronavirus OC43 (PCR) (NotDetected) Coronavirus HKU1 (PCR) (NotDetected) Coronavirus 229E (PCR) (NotDetected) SARS-CoV-2 (PCR) (NotDetected) Coronavirus NL63 (PCR) (NotDetected) Human Metapneumovir PCR (NotDetected) Influenza Type A (PCR) (NotDetected) Influenza Type B (PCR) (NotDetected) M. pneumoniae (PCR) (NotDetected) Parainfluenza 1 (PCR) (NotDetected) Parainfluenza 2 (PCR) (NotDetected) Parainfluenza 3 (PCR) (NotDetected) Parainfluenza 4 (PCR) (NotDetected) RSV (PCR) (NotDetected) Entero/Rhino (PCR) (NotDetected) 11/22/22 11/22/22 11/22/22 Range/Units 11:02 11:30 11:30 WBC 3.87 L (4.8-10.8) K/ul RBC 4.15 L (4.20-5.40) M/uL Hgb 12.4 (12.0-16.0) g/dl Hct 38.0 (37.0-47.0) % MCV 91.6 (80.0-100.0) fL MCH 29.9 (25.0-34.0) pg MCHC 32.6 (32.0-36.0) g/dL RDW Std Deviation 55.7 H (36.4-46.3) fL RDW Coeff of Nasir 17.1 H (11.5-14.5) % Plt Count 126 L (130-400) K/uL MPV 12.3 (9.4-12.4) fL Immature Gran % (Auto) 0.3 % Neut % (Auto) 74.6 % Lymph % (Auto) 12.7 % [place] % (Auto) 11.4 % Eos % (Auto) 1.0 % Baso % (Auto) 0.0 % Neut # (Auto) 2.89 (1.40-6.50) K/uL Lymph # (Auto) 0.49 L (1.20-3.40) K/uL [place] # (Auto) 0.44 (0.11-0.59) K/uL Eos # (Auto) 0.04 (0.00-0.50) K/uL Baso # (Auto) 0.00 (0.00-0.20) K/uL Immature Gran # (Auto) 0.01 (0.01-0.20) K/uL PT (9.0-12.0) Seconds INR (0.9-1.1) APTT (21.0-31.0) Seconds PTT Ratio VBG pH 7.56 H (7.36-7.41) VBG pCO2 28 L (38-50) mmHg VBG pO2 47 mmHg VBG HCO3 25 mmol/L VBG O2 Saturation 81.4 % VBG Base Excess 3.8 mEq/L Sodium (136-145) mmol/L Potassium (3.5-5.1) mmol/L Chloride (98-107) mmol/L Carbon Dioxide (21-32) mmol/L Anion Gap (3-11) BUN (6-23) mg/dl Creatinine (0.6-1.2) mg/dl Est Cr Clr Drug Dosing ml/min Est GFR ( Amer) ml/min Est GFR (Non-Af Amer) ml/min BUN/Creatinine Ratio (10-20) Glucose (70-99(Fasting)) mg/dl Lactate (0.4-2.0) mmol/L Calcium (8.6-10.3) mg/dl Magnesium (1.7-2.4) mg/dl Total Bilirubin (0.2-1.0) mg/dl AST (13-39) U/L ALT (7-52) U/L Alkaline Phosphatase (34-104) U/L Troponin I High Sens (0-14) pg/ml B-Natriuretic Peptide 923 H (0-100) pg/ml Total Protein (6.0-8.3) gm/dl Albumin (3.4-5.0) gm/dl Globulin (2.5-4.0) gm/dl Albumin/Globulin Ratio (0.9-2) Lipase (11-82) U/L Urine Color Urine Appearance (Clear) Urine pH (4.5-7.5) Ur Specific [place] (1.000-1.030) Urine Protein (Negative) Urine Glucose (UA) (Negative) Urine Ketones (Negative) Urine Blood (Negative) Urine Nitrite (Negative) Urine Bilirubin (Negative) Urine Urobilinogen (Negative) Ur Leukocyte Esterase (Negative) Adenovirus (PCR) (NotDetected) B. pertussis DNA (PCR) (NotDetected) B.parapertussis DNA PCR (NotDetected) C. pneumoniae DNA (PCR) (NotDetected) Coronavirus OC43 (PCR) (NotDetected) Coronavirus HKU1 (PCR) (NotDetected) Coronavirus 229E (PCR) (NotDetected) SARS-CoV-2 (PCR) (NotDetected) Coronavirus NL63 (PCR) (NotDetected) Human Metapneumovir PCR (NotDetected) Influenza Type A (PCR) (NotDetected) Influenza Type B (PCR) (NotDetected) M. pneumoniae (PCR) (NotDetected) Parainfluenza 1 (PCR) (NotDetected) Parainfluenza 2 (PCR) (NotDetected) Parainfluenza 3 (PCR) (NotDetected) Parainfluenza 4 (PCR) (NotDetected) RSV (PCR) (NotDetected) Entero/Rhino (PCR) (NotDetected) 11/22/22 11/22/22 11/22/22 Range/Units 11:30 12:00 12:51 WBC (4.8-10.8) K/ul RBC (4.20-5.40) M/uL Hgb (12.0-16.0) g/dl Hct (37.0-47.0) % MCV (80.0-100.0) fL MCH (25.0-34.0) pg MCHC (32.0-36.0) g/dL RDW Std Deviation (36.4-46.3) fL RDW Coeff of Nasir (11.5-14.5) % Plt Count (130-400) K/uL MPV (9.4-12.4) fL Immature Gran % (Auto) % Neut % (Auto) % Lymph % (Auto) % [place] % (Auto) % Eos % (Auto) % Baso % (Auto) % Neut # (Auto) (1.40-6.50) K/uL Lymph # (Auto) (1.20-3.40) K/uL [place] # (Auto) (0.11-0.59) K/uL Eos # (Auto) (0.00-0.50) K/uL Baso # (Auto) (0.00-0.20) K/uL Immature Gran # (Auto) (0.01-0.20) K/uL PT (9.0-12.0) Seconds INR (0.9-1.1) APTT (21.0-31.0) Seconds PTT Ratio VBG pH (7.36-7.41) VBG pCO2 (38-50) mmHg VBG pO2 mmHg VBG HCO3 mmol/L VBG O2 Saturation % VBG Base Excess mEq/L Sodium (136-145) mmol/L Potassium (3.5-5.1) mmol/L Chloride (98-107) mmol/L Carbon Dioxide (21-32) mmol/L Anion Gap (3-11) BUN (6-23) mg/dl Creatinine (0.6-1.2) mg/dl Est Cr Clr Drug Dosing ml/min Est GFR ( Amer) ml/min Est GFR (Non-Af Amer) ml/min BUN/Creatinine Ratio (10-20) Glucose (70-99(Fasting)) mg/dl Lactate 1.3 (0.4-2.0) mmol/L Calcium (8.6-10.3) mg/dl Magnesium (1.7-2.4) mg/dl Total Bilirubin (0.2-1.0) mg/dl AST (13-39) U/L ALT (7-52) U/L Alkaline Phosphatase (34-104) U/L Troponin I High Sens (0-14) pg/ml B-Natriuretic Peptide (0-100) pg/ml Total Protein (6.0-8.3) gm/dl Albumin (3.4-5.0) gm/dl Globulin (2.5-4.0) gm/dl Albumin/Globulin Ratio (0.9-2) Lipase (11-82) U/L Urine Color Yellow Urine Appearance Clear (Clear) Urine pH 8.5 H (4.5-7.5) Ur Specific [place] 1.009 (1.000-1.030) Urine Protein Negative (Negative) Urine Glucose (UA) Negative (Negative) Urine Ketones Negative (Negative) Urine Blood Negative (Negative) Urine Nitrite Negative (Negative) Urine Bilirubin Negative (Negative) Urine Urobilinogen Negative (Negative) Ur Leukocyte Esterase Negative (Negative) Adenovirus (PCR) Not Detected (NotDetected) B. pertussis DNA (PCR) Not Detected (NotDetected) B.parapertussis DNA PCR Not Detected (NotDetected) C. pneumoniae DNA (PCR) Not Detected (NotDetected) Coronavirus OC43 (PCR) Not Detected (NotDetected) Coronavirus HKU1 (PCR) Not Detected (NotDetected) Coronavirus 229E (PCR) Not Detected (NotDetected) SARS-CoV-2 (PCR) Not Detected (NotDetected) Coronavirus NL63 (PCR) Not Detected (NotDetected) Human Metapneumovir PCR Not Detected (NotDetected) Influenza Type A (PCR) Not Detected (NotDetected) Influenza Type B (PCR) Not Detected (NotDetected) M. pneumoniae (PCR) Not Detected (NotDetected) Parainfluenza 1 (PCR) Not Detected (NotDetected) Parainfluenza 2 (PCR) Not Detected (NotDetected) Parainfluenza 3 (PCR) Not Detected (NotDetected) Parainfluenza 4 (PCR) Not Detected (NotDetected) RSV (PCR) Not Detected (NotDetected) Entero/Rhino (PCR) DETECTED A* (NotDetected) Administered Medications Discontinued Medications Al Hydrox/Mg Hydrox/Simethicone (Aluminum/Magnesium Susp 30 Ml Udc) 30 ml PO NOW STA Stop: 11/22/22 13:26 Last Admin: 11/22/22 13:37 Dose: 30 ml Documented By: NEERAJ Imaging Data Attestation: I personally reviewed and interpreted this imaging study as follows: My Impression: 1 view chest x-ray was obtained in the emergency department. My interpretation is cardiomegaly, atelectasis was noted at the left lung field, final report below. Radiologist's Impression: Chest X-Ray 11/22/22 10:51 XR chest 1V portable HISTORY: 77 years-old Female Dyspnea acute shortness of breath COMPARISON: 11/01/2021 TECHNIQUE: AP view of the chest FINDINGS: Cardiac silhouette is enlarged. Indeterminate metallic density structures again noted projected over the midline, possibly within the stomach. Hiatal hernia. No pneumothorax. Small pleural effusion suggested with mild bibasilar linear densities. Chronic interstitial coarsening. Degenerative changes of the shoulder s and spine. IMPRESSION: 1. Cardiomegaly with chronic interstitial coarsening. 2. Hiatal hernia. 3. Probable small pleural effusions with bibasilar atelectasis/scarring. ACT 112: Negative or not required by law. The above report was generated using voice recognition software. It may contain grammatical, syntax or spelling errors. Electronically signed by: Jerzy Barton M.D. 11/22/2022 11:19 AM Discharge Plan Visit Data Chief Complaint: Illness Stated Complaint: COUGH, MUCUS, SINUS INFECTION, ABD FLUID ED Provider: Todd Hernandez Discharge Problem: Pulmonary edema, Abnormal EKG, Elevated troponin I level, Abdominal pain, epigastric, Rhinovirus infection Patient Disposition: Being Evaluated by Hospitalist Forms Stand Alone Forms: My [facility] [place] Prescriptions Prescriptions: No Action cyanocobalamin (vitamin B-12) [Vitamin B-12] 1,000 mcg Tablet 1,000 mcg PO DAILY cholecalciferol (vitamin D3) [Vitamin D3] 25 mcg (1,000 unit) Capsule 25 mcg PO DAILY aspirin 81 mg Tablet,Delayed Release (Dr/Ec) 81 mg PO QAM Qty: 30 0RF polyethylene glycol 3350 [Miralax] 17 gram Powder In Packet 17 g PO DAILY PRN (Reason: constipation) Qty: 30 0RF calcium carbonate [Tums] 200 mg calcium (500 mg) Tablet,Chewable 1,000 mg PO Q6H PRN (Reason: dyspepsia) Qty: 30 0RF furosemide 40 mg tablet See Rx Instructions .ROUTE .COMPLEX Rx Instructions: 80mg in the afternoon, 120mg at bedtime azithromycin 250 mg tablet See Rx Instructions .ROUTE .COMPLEX Rx Instructions: TAKE 2 TABLETS BY MOUTH ON DAY 1, THEN TAKE 1 TABLET DAILY ON DAYS 2-5 sucralfate 100 mg/mL suspension 10 ml PO QID midodrine 5 mg tablet 5 mg PO .TID@0800,1200,1700 potassium chloride 20 mEq tablet,ER particles/crystals 20 meq PO QAM Referrals Referrals: Rosendo Boyce DO [Primary Care Provider] -
--- NOTE | 2022-11-22 11:21 | XRay Report ---
XR chest 1V portable HISTORY: 77 years-old Female Dyspnea acute shortness of breath COMPARISON: 11/01/2021 TECHNIQUE: AP view of the chest FINDINGS: Cardiac silhouette is enlarged. Indeterminate metallic density structures again noted projected over the midline, possibly within the stomach. Hiatal hernia. No pneumothorax. Small pleural effusion sugg ested with mild bibasilar linear densities. Chronic interstitial coarsening. Degenerative changes of the shoulders and spine. IMPRESSION: 1. Cardiomegaly with chronic interstitial coarsening. 2. Hiatal hernia. 3. Probable small pleural effusions with bibasilar atelectasis/scarring. ACT 112: Negative or not required by law. The above report was generated using voice recognition software. It may contain grammatical, syntax o r spelling errors. Electronically signed by: Jerzy Barton M.D. 11/22/2022 11:19 AM
[2022-11-22 11:39] LABS: INR 1.1 (0.9-1.1); Partial Thromboplastin Ratio 0.9; Partial Thromboplastin Time 25.6 Seconds (21.0-31.0); Prothrombin Time 11.7 Seconds (9.0-12.0)
[2022-11-22 11:45] LABS: Albumin Globulin Ratio 0.7 (0.9-2); Albumin Level 3.4 gm/dl (3.4-5.0); Bilirubin,Total 1.2 mg/dl (0.2-1.0); Creatinine Clr Calc Pharmacy 79.2 ml/min; Globulin 4.6 gm/dl (2.5-4.0); Potassium 3.2 mmol/L (3.5-5.1)
[2022-11-22 11:46] LABS: Base Excess VBG 3.8 mEq/L; HCO3 VBG 25 mmol/L; Oxygen Saturation VBG 81.4 %; PCO2 VBG 28 mmHg (38-50); PO2 VBG 47 mmHg; pH VBG 7.56 (7.36-7.41)
[2022-11-22 11:55] LABS: Troponin I High Sensitivity 93.6 pg/ml (0-14)
[2022-11-22 11:56] LABS: Eosinophils # (auto) 0.04 K/uL (0.00-0.50); Hemoglobin 12.4 g/dl (12.0-16.0); Immature Granulocytes # (auto) 0.01 K/uL (0.01-0.20); Immature Granulocytes % (auto) 0.3 %; Lymphocytes # (auto) 0.49 K/uL (1.20-3.40); Lymphocytes % (auto) 12.7 %; Mean Corpuscular Hemoglobin 29.9 pg (25.0-34.0); Mean Corpuscular Hgb Conc 32.6 g/dL (32.0-36.0); Mean Corpuscular Volume 91.6 fL (80.0-100.0); Mean Platelet Volume 12.3 fL (9.4-12.4); Monocytes # (auto) 0.44 K/uL (0.11-0.59); Monocytes % (auto) 11.4 %; Neutrophils # (auto) 2.89 K/uL (1.40-6.50); Neutrophils % (auto) 74.6 %; Platelet Count 126 K/uL (130-400); RDW Coefficient of Variation 17.1 % (11.5-14.5); RDW Standard Deviation 55.7 fL (36.4-46.3); Red Blood Count 4.15 M/uL (4.20-5.40); White Blood Count 3.87 K/ul (4.8-10.8)
[2022-11-22 12:27] LABS: Appearance Urine Clear (Clear); Bilirubin Urine Negative (Negative); Blood Urine Negative (Negative); Color Urine Yellow; Glucose Urine UA Negative (Negative); Ketones Urine Negative (Negative); Leukocyte Esterase Urine Negative (Negative); Nitrite Urine Negative (Negative); Protein Urine Negative (Negative); Specific Gravity Urine 1.009 (1.000-1.030); Urobilinogen Urine Negative (Negative); pH Urine 8.5 (4.5-7.5)
[2022-11-22 12:45] LABS: Adenovirus PCR Not Detected (NotDetected); Bordetella parapertussis PCR Not Detected (NotDetected); Bordetella pertussis PCR Not Detected (NotDetected); Chlamydia pneumoniae PCR Not Detected (NotDetected); Coronavirus 229E PCR Not Detected (NotDetected); Coronavirus CoV-2 (COVID19)PCR Not Detected (NotDetected); Coronavirus HKU1 PCR Not Detected (NotDetected); Coronavirus NL63 PCR Not Detected (NotDetected); Coronavirus OC43PCR Not Detected (NotDetected); Human Metapneumovirus PCR Not Detected (NotDetected); Influenza A PCR Not Detected (NotDetected); Influenza B PCR Not Detected (NotDetected); Mycoplasma pneumoniae PCR Not Detected (NotDetected); Parainfluenza Virus 1 PCR Not Detected (NotDetected); Parainfluenza Virus 2 PCR Not Detected (NotDetected); Parainfluenza Virus 3 PCR Not Detected (NotDetected); Parainfluenza Virus 4 PCR Not Detected (NotDetected); Respiratory Syncytial VirusPCR Not Detected (NotDetected)
[2022-11-22 13:10] LABS: Rhinovirus/Enterovirus PCR DETECTED (NotDetected)
[2022-11-22] MEDS ORDERED: ALUMINUM/MAGNESIUM SUSP 30 ML UDC PO STA (13:25)
--- NOTE | 2022-11-22 13:58 | History & Physical Report ---
Date of Service November 22, 2022 Assessment & Plan (1) Epigastric discomfort: (2) Right bundle branch block: (3) Heart failure, diastolic, with acute decompensation: (4) Acute bronchitis, complicated: (5) Elevated troponin I level: (6) Rhinovirus infection: Plan This is a 77-year-old female who has a significant past medical history of chronic diastolic CHF, cardiac amyloidosis, LVH, multiple myeloma, monoclonal paraproteinemia who presents to ED secondary to URI symptoms x4 days. Viral bronchitis Rhinovirus Admit to telemetry Patient prescribed azithromycin as outpatient and has taken for 3 days; will discontinue in setting of viral illness and prolonged QT Treat supportively with nebulizer, flutter valve, incentive spirometry and Mucinex Monitor oxygen saturation Chest x-ray negative for pneumonia Cardiac amyloidosis Acute on Chronic HF, diastolic Elevated troponin EKG changes Prolonged QTC Patient without tree chest pain Does have mild troponin leak, may be in setting of viral URI will consult cardiology Repeat 2-hour troponin unchanged update echo, last September 2021 which revealed EF 70%, severely dilated left and right atrium and findings consistent with amyloidosis pt reports 13lb weight gain has been taking lasix 40mg bid and midorine she is not taking potassium or aldactone she dose not look overtly overloaded on exam appreciate cardiology input IV Diuresis, aldactone added, will monitor BP Hypokalemia replete pt stopped taking outpatient potassium supplement Epigastric pain GERD hx of PUD sx may be related to dyspepsia, vs gastritis vs MSK from coughing sx improved after maalox in ED will give Pepcid IV x 1 place on daily protonix and continue home Carafate if sx worsen or do not improve consider CT imaging Multiple myeloma follows Dr. Luevano stopped treatment and was on hospice, but now off and relatively stable DVT ppx: SQ Lovenox FULL CODE PCP: Rosendo Boyce Dispo: admit to tele Pt was seen and examined in collaboration with Dr. Awan, please see addendum A total of 75 was spent coordinating, documenting, and providing care for this patient excluding time spent in the performance of separately billed services. This included personally viewing all current laboratories and imaging studies, medication reconciliation, outpatient chart review, and discussion with specialists. History of Present Illness Chief Complaint: URI symptoms x4 days. Primary Care Provider: Rosendo Boyce, DO This is a 77-year-old female who has a significant past medical history of chronic diastolic CHF, cardiac amyloidosis, LVH, multiple myeloma, monoclonal paraproteinemia who presents to ED secondary to URI symptoms x4 days. She developed cough, sinus congestion and wheezing over the past 4 days that have been worsening. She also has been experiencing burning epigastric pain that she feels is, "indigestion." Pain is worse with coughing and is made better with Tums, milk and Carafate. She denies any sick contacts, fever, chills, sweats, chest pain, worsening shortness of breath, melena, hematochezia or diarrhea. Her last bowel movement was 2 days ago. Overall appetite has been poor. She does have chronic shortness of breath at baseline in setting of amyloidosis. She denies any orthopnea, PND or lower extremity edema; however, she has had a 13 pound weight gain. Typically she is 125 pounds and most recently was 138. She has been taking her Lasix 2 tablets twice daily and also stopped taking her potassium. "I am afraid to take too much." She feels her abdomen in distended and worried she may be accumulating fluid. Of significance she was last hospitalized in September 2021 in setting of acute on chronic CHF and peptic ulcer. At that point in time she was discharged home on hospice which has since been rescinded from a amyloidosis and multiple myeloma standpoint she has been relatively stable. She does have chronic lower extremity weakness and typically ambulates with a cane or walker. She has remained active and is able to keep up with her house work and ADLS. In ED patient did test positive for rhinovirus. She also had elevated troponin in setting of anterior lateral EKG changes. Her BNP was elevated at 923. Her potassium was also low at 3.2. Chest x-ray was negative for any acute disease did reveal some small bibasilar pleural effusions, atelectasis and chronic scarring.She received some Maalox in ED which did improve her symptoms. Allergies Allergy/AdvReac Type Severity Reaction Status Date / Time No Known Allergies Allergy Unknown ` Verified 11/22/22 13:05 Home Medications Medication Instructions Recorded Confirmed Type cholecalciferol (vitamin D3) 25 25 mcg PO DAILY 05/14/21 11/22/22 History mcg (1,000 unit) capsule (Vitamin D3) cyanocobalamin (vitamin B-12) 1,000 mcg PO DAILY 05/14/21 11/22/22 History 1,000 mcg tablet (Vitamin B-12) calcium carbonate 200 mg calcium 1,000 mg PO Q6H PRN dyspepsia #30 11/03/21 11/22/22 Rx (500 mg) chewable tablet (Tums) tabs polyethylene glycol 3350 17 gram 17 g PO DAILY PRN constipation #30 11/03/21 11/22/22 Rx oral powder packet (Miralax) ea azithromycin 250 mg tablet See Rx Instructions .Route .COMPLEX 11/22/22 11/22/22 History midodrine 5 mg tablet 5 mg PO .TID@0800,1200,1700 11/22/22 11/22/22 History potassium chloride 20 mEq 20 meq PO QAM 11/22/22 11/22/22 History tablet,extended release(part/cryst) sucralfate 100 mg/mL oral 10 ml PO QID 11/22/22 11/22/22 History suspension doxycycline hyclate 100 mg capsule 100 mg PO BID 7 days #14 caps 11/25/22 Rx furosemide 40 mg tablet 40 mg PO BID17 30 days #30 tabs 11/25/22 Rx prednisone 10 mg tablet 10 mg PO DIRECTED #16 tabs 11/25/22 Rx Past Med/Surg History Medical History Acute combined systolic and diastolic CHF, NYHA class 3 Acute on chronic diastolic (congestive) heart failure Cardiac amyloidosis Chronic diastolic heart failure Elevated troponin GI bleed Multiple myeloma Nausea & vomiting Surgical History History of colonoscopy History of tubal ligation Family History Father , 50s Stroke Mother , 90 Coronary heart disease Social History Smoking Status: Never smoker Second Hand Exposure: No; Do You Dip or Chew Tobacco: No; Hx Alcohol Use: No Hx Substance Use: No Preferred Language: Greek 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: Effective 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 Beliefs That Will Affect Care: None marital status: Current Living Situation: Spouse Current Living Situation Comment: with Feels Safe at Home: Yes Assistive Devices: Glasses, Raised Toilet Seat and Walker Review of Systems Review of Systems: All systems reviewed & are unremarkable except as noted in HPI & below Physical Exam Physical Exam: Constitutional: WD/WN, vitals as above, NAD, sitting up in bed, pleasant, conversing easily Head: Normocephalic, Atraumatic Eyes: PERRL, conjunctivae normal, anicteric sclerae ENMT: external ear and nose normal, oropharynx normal Neck: trachea midline, no thyromegaly normal visual inspection Respiratory: normal respiratory effort, lungs clear to auscultation, bibasilar wheezing no rales, no rhonchi. Normal insp/exp effort, no accessory muscle use Cardiovascular: RRR, no murmur, no edema Vessels: no JVD or carotid bruit Chest: normal inspection of chest Abdomen: normal bowel sounds, soft, distended, nontender, no hepatosplenomegaly Musculoskeletal: no cyanosis or clubbing, extremities motor strength 5/5 Skin: no rashes, warm and dry normal turgor Neurologic: PERRL, EOMI, accommodation nl, no face palsy, no dysarthria CN's II-XI intact bilaterally and moves all extremities Psychiatric: A+Ox3, euthymic affect Lymphatic: no cervical or axillary lymphadenopathy : deferred Results & Data Results & Data Vital Signs (Past 12 Hours) Vital Signs Temp Pulse Resp BP Pulse Ox O2 Del Method 11/22/22 11:30 68 21 120/79 94 Room Air 11/22/22 11:21 68 11/22/22 11:35 93 Room Air 11/22/22 10:24 36.7 C 74 16 128/63 97 Room Air Diagnostic Findings Chest X-Ray 11/22/22 10:51 XR chest 1V portable HISTORY: 77 years-old Female Dyspnea acute shortness of breath COMPARISON: 11/01/2021 TECHNIQUE: AP view of the chest FINDINGS: Cardiac silhouette is enlarged. Indeterminate metallic density structures again noted projected over the midline, possibly within the stomach. Hiatal hernia. No pneumothorax. Small pleural effusion suggested with mild bibasilar linear densities. Chronic interstitial coarsening. Degenerative changes of the shoulders and spine. IMPRESSION: 1. Cardiomegaly with chronic interstitial coarsening. 2. Hiatal hernia. 3. Probable small pleural effusions with bibasilar atelectasis/scarring. ACT 112: Negative or not required by law. The above report was generated using voice recognition software. It may contain grammatical, syntax or spelling errors. Electronically signed by: Jerzy Barton M.D. 11/22/2022 11:19 AM Medications Administered Medication List Discontinued Medications Al Hydrox/Mg Hydrox/Simethicone (Aluminum/Magnesium Susp 30 Ml Udc) 30 ml PO NOW STA Stop: 11/22/22 13:26 Last Admin: 11/22/22 13:37 Dose: 30 ml Documented By: ANG ECG Additional Comments: 68 RBBB, anterolateral t wave changes, qtc 514ms, ectopy, viewed and interpreted by me change compared to september 2021 COVID- Results Results COVID-19 Adm Lab Results: RBC 4.05 M/uL (4.20-5.40) L 11/24/22 WBC 3.79 K/ul (4.8-10.8) L 11/24/22 Hgb 11.9 g/dl (12.0-16.0) L 11/24/22 Hct 37.1 % (37.0-47.0) 11/24/22 Plt Count 133 K/uL (130-400) 11/24/22 Neutrophils (%) (Auto) 69.9 % 11/24/22 Lymphocytes (%) (Auto) 18.7 % 11/24/22 Monocytes # (Auto) 0.33 K/uL (0.11-0.59) 11/24/22 Eosinophils # (Auto) 0.08 K/uL (0.00-0.50) 11/24/22 Immature Granulocyte % (Auto) 0.3 % 11/24/22 Neutrophils # (Auto) 2.65 K/uL (1.40-6.50) 11/24/22 Lymphocytes # (Auto) 0.71 K/uL (1.20-3.40) L 11/24/22 Monocytes # (Auto) 0.33 K/uL (0.11-0.59) 11/24/22 Eosinophils # (Auto) 0.08 K/uL (0.00-0.50) 11/24/22 Basophils # (Auto) 0.01 K/uL (0.00-0.20) 11/24/22 Immature Granulocyte # (Auto) 0.01 K/uL (0.01-0.20) 3 Na 135 mmol/L (136-145) L 11/24/22 K 3.8 mmol/L (3.5-5.1) 11/24/22 Cl 104 mmol/L (98-107) 11/24/22 CO2 24 mmol/L (21-32) 11/24/22 Anion Gap 7 (3-11) 11/24/22 BUN 17 mg/dl (6-23) 11/24/22 Creatinine 0.54 mg/dl (0.6-1.2) L 11/24/22 BUN/Creatinine Ratio 31.5 (10-20) H 11/24/22 Glucose Level 96 mg/dl (70-99(Fasting)) 11/24/22 Ca 9.0 mg/dl (8.6-10.3) 11/24/22 Total Bilirubin 1.1 mg/dl (0.2-1.0) H 11/23/22 AST/SGOT 24 U/L (13-39) 11/23/22 ALT/SGPT 15 U/L (7-52) 11/23/22 Alkaline Phosphatase 80 U/L (34-104) 11/23/22 Total Protein 7.4 gm/dl (6.0-8.3) 11/23/22 Albumin 3.1 gm/dl (3.4-5.0) L 11/23/22 Globulin 4.3 gm/dl (2.5-4.0) H 11/23/22 Albumin/Globulin Ratio 0.7 (0.9-2) L 11/23/22 PTT 25.6 Seconds (21.0-31.0) 11/22/22 INR 1.1 (0.9-1.1) 11/22/22 Adenovirus (PCR) Not Detected (NotDetected) 11/22/22 B. parapertussis DNA (PCR) Not Detected (NotDetected) 10/30 08/20 B. pertussis DNA (PCR) Not Detected (NotDetected) 11/22/22 C. pneumoniae DNA (PCR) Not Detected (NotDetected) 3 Coronavirus Type OC43 (PCR) Not Detected (NotDetected) Coronavirus Type HKU1 (PCR) Not Detected (NotDetected) Coronavirus Type 229E (PCR) Not Detected (NotDetected) COVID-19 PCR Not Detected (NotDetected) 11/22/22 Coronavirus Type NL63 (PCR) Not Detected (NotDetected) Human Metapneumovirus (PCR) Not Detected (NotDetected) Influenza Virus Type A (PCR) Not Detected (NotDetected) Influenza Virus Type B (PCR) Not Detected (NotDetected) M. pneumoniae (PCR) Not Detected (NotDetected) 11/22/22 Parainfluenza Type 1 (PCR) Not Detected (NotDetected) 10/30 08/20 Parainfluenza Type 2 (PCR) Not Detected (NotDetected) 10/30 08/20 Parainfluenza Type 3 (PCR) Not Detected (NotDetected) 10/30 08/20 Parainfluenza Type 4 (PCR) Not Detected (NotDetected) 10/30 08/20 RSV (PCR) Not Detected (NotDetected) 11/22/22 Enterovirus/Rhinovirus (PCR) DETECTED (NotDetected) A* Chest X-Ray 11/22/22 Code Status & VTE Plan Code Status FULL CODE Supervising Physician Co-Signing Physician Notes Pt was seen and examined. Agreed with Christy exam, assessment and plan. 77-year-old female with past medical history of chronic diastolic CHF, cardiac amyloidosis, LVH, multiple myeloma, monoclonal paraproteinemia who presents to ED secondary to URI symptoms. She said about 4 days ago she developed cough, sinus congestion and wheezing. She said that in the last 4 days her symptoms have been worsening. Pt said that she has been having burning epigastric pain that worsening with coughing. She said Tums, milk and carafate improve her symptoms. Pt said that she gained 13 lbs. She also noted swelling in her lower extremities and she feels her abdomen is distended. She has been taking her lasix daily. She denies any sick contacts, fever, chills, sweats, chest pain and orthopnea. In the ER, she was testing positive for rhinovirus, BNP 923, troponin 93. CXR showed cardiomegaly with chronic interstitial coarsening. Probable small pleural effusions with bibasilar atelectasis/scarring. Will give Lasix 20mg IV x1. Will consult cardiology. Continue conservative management. Will need to avoid medication that can prolong QTC. Monitor closely in telemetry. MD Emperatriz
[2022-11-22] MEDS ORDERED: POTASSIUM CHLORIDE CRTAB 20 MEQ TABCR PO STA (14:13)
[2022-11-22] MEDS ORDERED: FAMOTIDINE 20MG IV PUSH 20 MG/5 ML SYR IV STA (14:47)
[2022-11-22] MEDS ORDERED: POTASSIUM CHLORIDE 10 MEQ TABCR PO ONE (14:58)
--- NOTE | 2022-11-22 15:21 | Cardiology Consultation ---
Date of Consultation November 22, 2022 Assessment & Plan (1) Acute bronchitis, complicated: (2) Heart failure, diastolic, with acute decompensation: (3) Pleural effusion: (4) Cardiac amyloidosis: (5) Elevated troponin: (6) Abnormal EKG: (7) Right bundle branch block: (8) Epigastric discomfort: Plan Acute complicated bronchitis. ? pleuropulmonary manifestations of amyloidosis. ? Steroids. Acute decompensated diastolic congestive heart failure, NYHA class III-IV, with associated pleural effusions - Cardiac AL amyloidosis, felt to be end stage in October 2021, previously on Hospice - Supplement potassium orally and maintain normokalemia as well as normomagnesemia. - Add IV furosemide, 40 mg twice a day - Add oral spironolactone 25 mg/day in the morning. - Carefully monitor blood pressure, renal function, and electrolytes. Elevated troponin - Suspect secondary to the acute illness as well as cardiac amyloidosis - Patient without overt symptoms of an acute plaque rupture. - EKG without acute ischemic changes. - Refer for resting echocardiography - Continue conservative management Abnormal EKG, right bundle branch block - Suspect secondary to underlying structural heart disease, increase right ventricular pressure, ? inflammation. Prolonged QTc. - Avoid Avoid QTc prolonging medications. Cardiac amyloidosis. - Continue conservative medical management - Typical evidence based medications typically poorly tolerated - Mainstay of treatment is diuretic therapy for this patient. Epigastric discomfort - Add PPI, RE: pain, GERD, history of PUD Supervising Physician Co-Signing Physician Notes Patient seen and examined at the bedside in the ER. Reports cough with associated wheezing and shortness of breath over the past few days. No orthopnea, PND, weight gain, or edema. Denies chest discomfort or heaviness. Cardiac consultation requested due to mildly elevated high-sensitivity troponin and history of cardiac amyloidosis. PE: VSS. Gen: NAD, AAO x3. Heart: Regular rhythm, normal S1-S2. No murmur appreciated. Lungs: Scattered rhonchi with bilateral expiratory wheeze. Extremities: No edema. A/P: Agree with above PA-C history, physical exam, assessment and plan. 77-year-old female presenting with cough and shortness of breath consistent with URI. Echocardiographic evidence of dilated IVC and mildly elevated pulmonary pressures in the setting of grade 3 diastolic dysfunction/cardiac amyloidosis. Agree with treatment with gentle diuretic therapy. Mildly elevated troponin not indicative of acute plaque rupture event. Treatment of URI as per internal medicine. History of Present Illness Reason for Consultation: viral bronchitis, elevated trop, ecg change, 13#gain Requesting Physician: Christy Gregory Attending Physician: TAYLOR History of Present Illness Ms. Anel Hogue is a very pleasant 77-year-old female with history of cardiac AL amyloidosis, IgG kappa subtype, receiving therapy until ? September 2021, hospitalized in October 2021 at which time she was felt to have end-stage disease and discharged home on hospice. Patient has fared relatively well since discharge and notes self reduction in furosemide dosing down to 80 mg twice per day in June/July 2022. She does not know if she is currently taking spironolactone. Approximately 4 days ago the patient developed a significant cough productive of thick green mucus with associated chest congestion, difficulty breathing, expiratory wheezing. She notes coughing so violently that her chest began to hurt bilaterally. Notes taking a Z-Yogesh as prescribed by her dentist, 2 doses remaining as of today. She also notes developing epigastric discomfort, significant heartburn type symptoms not relieved by Maalox and Tums. Due to persistent/progressive symptoms patient presented to the emergency room for further evaluation and treatment. Testing positive for enterovirus/rhinovirus by PCR EKG on presentation revealed sinus with a first-degree AV block, right bundle branch block, diffuse T wave abnormality. QTc prolonged at 514 ms. High-sensitivity troponin I elevated at 93.6 pg/mL then 93.2 pg/mL B-Natriuretic Peptide 923 pg/mL Chest x-ray was technically limited, revealing cardiomegaly with chronic interstitial coarsening and probably small left greater than right pleural effusions Potassium was low on presentation at 3.2 mmol/L. Up to the acute presenting illness the patient was able to do activities of daily living at her own pace. No activity related chest pain. She did have 1 episode of palpitations a couple days ago with pulse ox revealing a heart rate of 144 bpm though was unable to provide any further information in this regard. No overt orthopnea or PND. Again no lower extremity peripheral edema which was always an issue in the past. Patient aware of abdominal distention as well as recent weight gain. No subjective fevers or rigors. No dizziness or syncope. No melena or hematochezia Patient previously followed by Dr. Molina and at [facility], history of [place] light chain AL Cardiac amyloidosis, severe chronic diastolic, past nonsustained ventricular tachycardia. Hematology/Oncology - Dr. Juan A Luevano, IgG [place] multiple myeloma Social History: Reformed remote smoker, in high school. No significant alcohol. 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 Father at the age of 51 following a hemorrhagic stroke. Maternal aunt with breast cancer. Complete Review of Systems is as stated above, negative, or noncontributory. Allergies Allergy/AdvReac Type Severity Reaction Status Date / Time No Known Allergies Allergy Unknown ` Verified 11/22/22 13:05 Home Medications Medication Instructions Recorded Confirmed Type cholecalciferol (vitamin D3) 25 25 mcg PO DAILY 05/14/21 11/22/22 History mcg (1,000 unit) capsule (Vitamin D3) cyanocobalamin (vitamin B-12) 1,000 mcg PO DAILY 05/14/21 11/22/22 History 1,000 mcg tablet (Vitamin B-12) calcium carbonate 200 mg calcium 1,000 mg PO Q6H PRN dyspepsia #30 11/03/21 11/22/22 Rx (500 mg) chewable tablet (Tums) tabs polyethylene glycol 3350 17 gram 17 g PO DAILY PRN constipation #30 11/03/21 11/22/22 Rx oral powder packet (Miralax) ea azithromycin 250 mg tablet See Rx Instructions .Route .COMPLEX 11/22/22 11/22/22 History furosemide 40 mg tablet 80 mg PO BID 11/22/22 11/22/22 History midodrine 5 mg tablet 5 mg PO .TID@0800,1200,1700 11/22/22 11/22/22 History potassium chloride 20 mEq 20 meq PO QAM 11/22/22 11/22/22 History tablet,extended release(part/cryst) sucralfate 100 mg/mL oral 10 ml PO QID 11/22/22 11/22/22 History suspension Patient History Medical History Acute combined systolic and diastolic CHF, NYHA class 3 Acute on chronic diastolic (congestive) heart failure Cardiac amyloidosis Chronic diastolic heart failure Elevated troponin GI bleed Multiple myeloma Nausea & vomiting Surgical History History of colonoscopy History of tubal ligation Family History Father , 50s Stroke Mother , 90 Coronary heart disease Social History Smoking Status: Never smoker Second Hand Exposure: No; Do You Dip or Chew Tobacco: No; Hx Alcohol Use: No Hx Substance Use: No Preferred Language: Khmer 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: Effective Collar Tacker Required: No Beliefs That Will Affect Care: None marital status: Current Living Situation: Spouse Current Living Situation Comment: with Feels Safe at Home: Yes Assistive Devices: Walker Review of Systems Review of Systems: Complete review of systems is otherwise as stated above, negative, noncontributory Physical Exam Physical Exam: General: A&Ox3. Pleasant. Comfortable. Cooperative. Dyspneic. HENT: Normocephalic. Atraumatic. Eyes: PER. Conjunctiva pink, sclera clear. Neck: + JVD. Heart: Regular at 74 bpm. Soft apical systolic murmur. No rub. Lungs: Diffuse expiratory wheezing. Absent breath sounds at the bases. Diminished. Decreased. Abdomen: +BS. Distended. Somewhat soft. Extremities: No significant lower extremity peripheral edema. No clubbing. No cyanosis. Limited neurological examination is without focal deficits. Pulses: radial=2/4, posterior tibial=2/4. Results & Data Vital Signs (Past 12 Hours) Vital Signs Temp Pulse Resp BP Pulse Ox O2 Del Method 11/22/22 15:00 80 21 120/79 96 Room Air 11/22/22 11:30 68 21 120/79 94 Room Air 11/22/22 11:21 68 11/22/22 11:35 93 Room Air 11/22/22 10:24 36.7 C 74 16 128/63 97 Room Air Laboratory Results Cardiac Enzymes 11/22/22 11/22/22 11/22/22 Range/Units 11:02 11:02 14:40 AST 26 (13-39) U/L Troponin I High Sens 93.6 H* 93.2 H* (0-14) pg/ml B-Natriuretic Peptide 923 H (0-100) pg/ml Coagulation 11/22/22 11/22/22 Range/Units 11:02 11:02 PT 11.7 (9.0-12.0) Seconds APTT 25.6 (21.0-31.0) Seconds B-Natriuretic Peptide 923 H (0-100) pg/ml CBC 11/22/22 Range/Units 11:30 WBC 3.87 L (4.8-10.8) K/ul RBC 4.15 L (4.20-5.40) M/uL Hgb 12.4 (12.0-16.0) g/dl Hct 38.0 (37.0-47.0) % Plt Count 126 L (130-400) K/uL Neut # (Auto) 2.89 (1.40-6.50) K/uL Lymph # (Auto) 0.49 L (1.20-3.40) K/uL [place] # (Auto) 0.44 (0.11-0.59) K/uL Eos # (Auto) 0.04 (0.00-0.50) K/uL Baso # (Auto) 0.00 (0.00-0.20) K/uL Comprehensive Metabolic Panel 11/22/22 Range/Units 11:02 Sodium 138 (136-145) mmol/L Potassium 3.2 L (3.5-5.1) mmol/L Chloride 104 (98-107) mmol/L Carbon Dioxide 25 (21-32) mmol/L BUN 16 (6-23) mg/dl Creatinine 0.50 L (0.6-1.2) mg/dl Glucose 111 H (70-99(Fasting)) mg/dl Calcium 9.0 (8.6-10.3) mg/dl AST 26 (13-39) U/L ALT 17 (7-52) U/L Alkaline Phosphatase 84 (34-104) U/L Total Protein 8.0 (6.0-8.3) gm/dl Albumin 3.4 (3.4-5.0) gm/dl Intake and Output 11/22/22 11/22/22 11/22/22 06:59 14:59 22:59 Other: Weight 62.5 kg Weight Measurement Method Chair Scale Patient Weight 11/23/22 06:59 Weight 62.5 kg
[2022-11-22] MEDS: POTASSIUM CHLORIDE / WTR 10 MEQ/100 ML PLCT IV SCH ×3 (15:42→15:47)
--- NOTE | 2022-11-22 16:42 | Electrocardiogram Report ---
Test Reason : Blood Pressure : / mmHG Vent. Rate : 068 BPM Atrial Rate : 071 BPM P-R Int : 000 ms QRS Dur : 136 ms QT Int : 484 ms P-R-T Axes : 000 132 -32 degrees QTc Int : 514 ms Sinus rhythm with sinus arrhythmia Right bundle branch block T wave abnormality, consider lateral ischemia Abnormal ECG When compared with ECG of 18-OCT-2021 11:23, Sinus arrhythmia is now present Right bundle branch block is now Present Criteria for Septal infarct are no longer Present Confirmed by Jose Martin Gannon ([id number]) on 11/22/2022 4:41:56 PM Referred By: REFERRED SELF Confirmed By:Jose Martin Gannon
[2022-11-22] MEDS ORDERED: PROMETHAZINE HCL 6.25 MG in SODIUM CHLORIDE 0.9% 50 ML IV PRN (18:09)
[2022-11-22] MEDS ORDERED: MAGNESIUM HYDROXIDE SUSP 30 ML UDC PO PRN (18:09)
[2022-11-22] MEDS ORDERED: POLYETHYLENE (MIRALAX) 17 GM PACK PO PRN (18:09)
[2022-11-22] MEDS ORDERED: ACETAMINOPHEN 325 MG TAB PO PRN (18:09)
[2022-11-22] MEDS ORDERED: PANTOprazole 40 MG TAB PO SCH (18:09)
[2022-11-22] MEDS: SUCRALFATE 1 GM/10 ML UDC PO SCH ×2 (18:35→20:25)
[2022-11-22] MEDS: LEVALBUTEROL HCL 0.63 MG/3 ML NEB NEB SCH (19:22)
[2022-11-22] MEDS ORDERED: FUROSEMIDE INJ 20 MG/2 ML VIAL IV ONE (19:31)
[2022-11-22] MEDS: PANTOprazole 40 MG in SYRINGE 0 ML IV SCH (20:21)
[2022-11-22] MEDS: guaiFENesin 600 MG TABCR PO SCH (20:22)
[2022-11-22] MEDS: DOCUSATE SODIUM 100 MG CAP PO SCH (20:25)
[2022-11-22] MEDS: ALUMINUM/MAGNESIUM SUSP 30 ML UDC PO PRN (23:11)
[2022-11-23 02:44] LABS: Basophils # (auto) 0.02 K/uL (0.00-0.20); Basophils % (auto) 0.5 %; Eosinophils # (auto) 0.05 K/uL (0.00-0.50); Eosinophils % (auto) 1.2 %; Hemoglobin 11.7 g/dl (12.0-16.0); Immature Granulocytes # (auto) 0.01 K/uL (0.01-0.20); Immature Granulocytes % (auto) 0.2 %; Lymphocytes # (auto) 0.61 K/uL (1.20-3.40); Lymphocytes % (auto) 14.7 %; Mean Corpuscular Hemoglobin 29.8 pg (25.0-34.0); Mean Corpuscular Hgb Conc 32.5 g/dL (32.0-36.0); Mean Corpuscular Volume 91.6 fL (80.0-100.0); Mean Platelet Volume 11.7 fL (9.4-12.4); Monocytes # (auto) 0.46 K/uL (0.11-0.59); Monocytes % (auto) 11.1 %; Neutrophils # (auto) 3.01 K/uL (1.40-6.50); Neutrophils % (auto) 72.3 %; Platelet Count 115 K/uL (130-400); RDW Coefficient of Variation 16.8 % (11.5-14.5); RDW Standard Deviation 55.2 fL (36.4-46.3); Red Blood Count 3.93 M/uL (4.20-5.40); White Blood Count 4.16 K/ul (4.8-10.8)
[2022-11-23 03:02] LABS: Albumin Globulin Ratio 0.7 (0.9-2); Albumin Level 3.1 gm/dl (3.4-5.0); BUN Creatinine Ratio 33.3 (10-20); Bilirubin,Total 1.1 mg/dl (0.2-1.0); Calcium 8.7 mg/dl (8.6-10.3); Creatinine Clr Calc Pharmacy 73.3 ml/min; Est GFR (African American) 106.2 ml/min; Est GFR (Non-African American) 91.7 ml/min; Globulin 4.3 gm/dl (2.5-4.0); Potassium 3.8 mmol/L (3.5-5.1); Total Protein 7.4 gm/dl (6.0-8.3)
[2022-11-23] MEDS: ALUMINUM/MAGNESIUM SUSP 30 ML UDC PO PRN (05:28)
[2022-11-23] MEDS: LEVALBUTEROL HCL 0.63 MG/3 ML NEB NEB SCH ×3 (07:04→19:01)
--- NOTE | 2022-11-23 07:18 | Electrocardiogram Report ---
Test Reason : Blood Pressure : / mmHG Vent. Rate : 067 BPM Atrial Rate : 067 BPM P-R Int : 000 ms QRS Dur : 124 ms QT Int : 478 ms P-R-T Axes : 000 116 -49 degrees QTc Int : 505 ms Sinus arrhythmia Right bundle branch block Abnormal ECG When compared with ECG of 22-NOV-2022 11:20, Nonspecific T wave abnormality has replaced inverted T waves in Lateral leads Confirmed by Nestor Licona ([id number]) on 11/23/2022 7:18:15 AM Referred By: REFERRED SELF Confirmed By:Rudolph Licona
[2022-11-23] MEDS: MIDODRINE HCL 2.5 MG TAB PO SCH ×3 (08:45→17:53)
[2022-11-23] MEDS: CYANOCOBALAMIN (B-12) 500 MCG TABLET PO SCH (08:45)
[2022-11-23] MEDS: PANTOprazole 40 MG in SYRINGE 0 ML IV SCH ×2 (08:45→21:01)
[2022-11-23] MEDS: CHOLECALCIFEROL 1,000 UNITS 25 MCG TAB PO SCH (08:45)
[2022-11-23] MEDS: SPIRONOLACTONE 25 MG TAB PO SCH (08:45)
[2022-11-23] MEDS: DOCUSATE SODIUM 100 MG CAP PO SCH ×2 (08:46→21:03)
[2022-11-23] MEDS: guaiFENesin 600 MG TABCR PO SCH ×2 (08:46→21:02)
[2022-11-23] MEDS: SUCRALFATE 1 GM/10 ML UDC PO SCH ×4 (08:46→21:02)
[2022-11-23] MEDS: ENOXAPARIN INJ 40 MG/0.4 ML SYR SQ SCH (08:47)
[2022-11-23] MEDS ORDERED: POTASSIUM CHLORIDE CRTAB 20 MEQ TABCR PO SCH (09:00)
[2022-11-23] MEDS ORDERED: FUROSEMIDE 40 MG/4 ML VIAL IV SCH (09:30)
--- NOTE | 2022-11-23 15:37 | Hospitalist Progress Note ---
Date of Service November 23, 2022 Assessment & Plan (1) Epigastric discomfort: (2) Right bundle branch block: (3) Heart failure, diastolic, with acute decompensation: (4) Acute bronchitis, complicated: (5) Elevated troponin I level: (6) Rhinovirus infection: Plan per admitting service notes with addendum: This is a 77-year-old female who has a significant past medical history of chronic diastolic CHF, cardiac amyloidosis, LVH, multiple myeloma, monoclonal paraproteinemia who presents to ED secondary to URI symptoms x4 days. Viral bronchitis Rhinovirus Admit to telemetry Patient prescribed azithromycin as outpatient and has taken for 3 days; will discontinue in setting of viral illness and prolonged QT Treat supportively with nebulizer, flutter valve, incentive spirometry and Mucinex Monitor oxygen saturation Chest x-ray negative for pneumonia 11/23 continue nebs, mucinex Cardiac amyloidosis Acute on Chronic HF, diastolic Elevated troponin EKG changes Prolonged QTC Patient without tree chest pain Does have mild troponin leak, may be in setting of viral URI will consult cardiology Repeat 2-hour troponin unchanged update echo, last September 2021 which revealed EF 70%, severely dilated left and right atrium and findings consistent with amyloidosis pt reports 13lb weight gain has been taking lasix 40mg bid and midorine she is not taking potassium or aldactone she dose not look overtly overloaded on exam appreciate cardiology input IV Diuresis, aldactone added, will monitor BP 11/23 on Lasix IV Hypokalemia replete pt stopped taking outpatient potassium supplement 11/23 K 3.8 Epigastric pain GERD hx of PUD sx may be related to dyspepsia, vs gastritis vs MSK from coughing sx improved after maalox in ED will give Pepcid IV x 1 place on daily protonix and continue home Carafate if sx worsen or do not improve consider CT imaging 11/[address] abdomen and pelvis pending Multiple myeloma follows Dr. Luevano stopped treatment and was on hospice, but now off and relatively stable DVT ppx: SQ Lovenox FULL CODE PCP: Rosendo Boyce Dispo: pending Admission and Anticipated Discharge Date Admission Date: November 22, 2022 Subjective ff up for acute CHF, etc seen resting in bed, comfortable Breathing is improving, still has some cough productive of yellow sputum No fevers or chills No chest pain Still has epigastric pain denies nausea/vomiting Review of Systems Review of Systems: all noted and negative except for above Physical Exam Physical Exam: General- oriented x 3, not in distress, speaks in sentences with no effort or accessory muscle use Eyes- anicteric Neck- no JVD Lungs- (+) faint wheeze and rales BL Heart- normal rate, regular rhythm; no murmurs Abdomen- normal bowel sounds, nondistended, soft, nontender Extremities- no pretibial edema, no calf tenderness Neuro- alert, oriented x 3; no gross focal neurologic deficits Skin- warm & dry Results & Data Results & Data Vital Signs (Past 12 Hours) Vital Signs Temp Pulse Pulse Resp BP Pulse Ox O2 Del Method 11/23/22 15:01 36.9 C 70 18 108/53 L 97 Room Air 11/23/22 13:10 61 18 98 Room Air 11/23/22 11:54 37.0 C 72 18 95/50 L 97 Room Air 11/23/22 07:47 37.0 C 71 17 121/64 94 Room Air 11/23/22 07:45 63 11/23/22 07:45 Room Air 11/23/22 07:05 72 18 93 Room Air all noted and reviewed including below
--- NOTE | 2022-11-23 15:50 | CT Scan Report ---
CT OF THE ABDOMEN AND PELVIS WITHOUT CONTRAST CLINICAL HISTORY: Epigastric pain. COMPARISON STUDY: PET/CT September 17, 2017. CT of the abdomen and pelvis October 18, 2021. TECHNIQUE: Axial images of the abdomen and pelvis were obtained without IV contrast. Images were revi ewed in the axial, sagittal, and coronal planes. Automated exposure control was utilized for the juana dy. A dose lowering technique was utilized adhering to the principles of ALARA. FINDINGS: Cardiomegaly and small to moderate left and small right pleural effusions as well as a mode rate sized hiatal hernia are incidentally noted within the lower chest. No pneumatosis, free air or p ortal venous gas is present. There are small gallstones within the gallbladder. There is mild gallbla dder wall thickening. The gallbladder is not distended. A small amount of perihepatic ascites is note d. There is no biliary or pancreatic ductal dilatation. Evaluation of the abdomen and pelvis is subop timal on this unenhanced exam. There is no hydronephrosis. No urinary calculi are present. There is n o evidence for a bowel obstruction. No fluid collections are present. Mild mesenteric stranding is un changed since prior CT. There is no lymphadenopathy. No acute fractures within the visualized skeleta l structures are present. Multiple fibroids are again noted. IMPRESSION: 1. No bowel obstruction. No bowel wall thickening on unenhanced exam. Normal appendix. 2. Small to moderate left and small right pleural effusions. 3. Cholelithiasis with mild gallbladder wall thickening. However, the gallbladder is contracted. The findings do not suggest acute cholecystitis. 4. Hiatal hernia. ACT 112: Negative or not required by law. Electronically signed by: Ayan Guerrero M.D. 11/23/2022 3:47 PM
[2022-11-23] MEDS: FAMOTIDINE 20 MG TAB PO SCH (17:53)
--- NOTE | 2022-11-23 18:25 | Surgery Consultation ---
Date of Consultation November 23, 2022 Assessment & Plan (1) Epigastric discomfort: We discussed that she has multiple possible causes for her epigastric discomfort. Of these, coughing and straining of the muscle appears to be the most likely. It is also possible that the coughing episodes exacerbate the discomfort from her hiatal hernia via causing increased pressure and indigestion. She does have a contracted gallbladder with gallstones. Given the contracted gallbladder, it is unlikely that she has acute cholecystitis. She specifically does not have any trouble with eating. We discussed that she would be at higher risk for surgery given her other medical issues. As I do not believe the gallbladder is the source of her symptoms, I am reluctant to recommend surgery. We did discuss signs and symptoms of gallstones. She was instructed to try to avoid fatty foods in the future to minimize the possibility of having trouble. Thankfully, her symptoms appear to be improving as her coughing has lessened. We will sign off. Please call with questions. If concern regarding the gallbladder persists, HIDA scan could be performed. Total time spent seeing pt and reviewing chart, writing note is 61 minutes. History of Present Illness Reason for Consultation: epigastric pain Requesting Physician: Cristo Patel MD Attending Physician: Cristo Patel MD History of Present Illness 77-year-old woman with multiple other medical issues including pleural effusions, multiple myeloma history, cardiac amyloidosis, known hiatal hernia who presents complaining of 4 to 5 days of epigastric pain that began after coughing. She notes that the pain occurs after she coughs. It is located directly in the epigastrium. It is not associated with eating. The pain can be quite sharp. It does not radiate to her back. It does go in a band across her upper abdomen as the coughing sometimes doubles her over. This pain has been persistent over the last few days but now appears to be subsiding. She notes that she has been coughing less often in the last day or 2 and attributes this to the pain subsiding. She has noted intermittent diarrhea in the past. She has a known hiatal hernia for which she occasionally does get pain and has heartburn. Of note, she did have significant heartburn in the past few days also. She did not know she had gallstones. She specifically denies any pain after eating fatty foods. She does not have any nausea or vomiting. She states that she was on hospice about a year and a half ago when her diagnosis of recurrent pleural effusions and cardiac amyloidosis had first occurred. She was seen at [facility] and underwent some type of chemotherapy for her multiple myeloma. She has persistent leg weakness as a result of this treatment. She denies any chest pain or palpitations. She has not required drainage of a pleural effusion since September. Allergies Allergy/AdvReac Type Severity Reaction Status Date / Time No Known Allergies Allergy Unknown ` Verified 11/22/22 13:05 Home Medications Medication Instructions Recorded Confirmed Type cholecalciferol (vitamin D3) 25 25 mcg PO DAILY 05/14/21 11/22/22 History mcg (1,000 unit) capsule (Vitamin D3) cyanocobalamin (vitamin B-12) 1,000 mcg PO DAILY 05/14/21 11/22/22 History 1,000 mcg tablet (Vitamin B-12) calcium carbonate 200 mg calcium 1,000 mg PO Q6H PRN dyspepsia #30 11/03/21 11/22/22 Rx (500 mg) chewable tablet (Tums) tabs polyethylene glycol 3350 17 gram 17 g PO DAILY PRN constipation #30 11/03/21 11/22/22 Rx oral powder packet (Miralax) ea azithromycin 250 mg tablet See Rx Instructions .Route .COMPLEX 11/22/22 11/22/22 History furosemide 40 mg tablet 80 mg PO BID 11/22/22 11/22/22 History midodrine 5 mg tablet 5 mg PO .TID@0800,1200,1700 11/22/22 11/22/22 History potassium chloride 20 mEq 20 meq PO QAM 11/22/22 11/22/22 History tablet,extended release(part/cryst) sucralfate 100 mg/mL oral 10 ml PO QID 11/22/22 11/22/22 History suspension Patient History Medical History Acute combined systolic and diastolic CHF, NYHA class 3 Acute on chronic diastolic (congestive) heart failure Cardiac amyloidosis Chronic diastolic heart failure Elevated troponin GI bleed Multiple myeloma Nausea & vomiting Surgical History History of colonoscopy History of tubal ligation Family History Father , 50s Stroke Mother , 90 Coronary heart disease Social History Smoking Status: Never smoker Second Hand Exposure: No; Do You Dip or Chew Tobacco: No; Hx Alcohol Use: No Hx Substance Use: No Preferred Language: Polish 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: 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 Beliefs That Will Affect Care: None marital status: Current Living Situation: Spouse Current Living Situation Comment: with Other Information That Helps Us Care for You: No Feels Safe at Home: Yes Safety Concerns: Feels Safe At This Time Assistive Devices: Glasses, Raised Toilet Seat and Walker Physical Exam Constitutional: WD/WN, vitals as above Cardiovascular: RRR, no murmur, no edema Gastrointestinal (Abdomen): normal bowel sounds, soft, nontender, no hepatosplenomegaly Neurologic: + focal motor deficit (legs are weaker) and awake Results & Data Vital Signs (Past 12 Hours) Vital Signs Temp Pulse Pulse Resp BP Pulse Ox O2 Del Method 11/23/22 15:46 71 11/23/22 15:01 36.9 C 70 18 108/53 L 97 Room Air 11/23/22 13:10 61 18 98 Room Air 11/23/22 11:54 37.0 C 72 18 95/50 L 97 Room Air 11/23/22 07:47 37.0 C 71 17 121/64 94 Room Air 11/23/22 07:45 63 11/23/22 07:45 Room Air 11/23/22 07:05 72 18 93 Room Air Laboratory Results 11/23/22 11/23/22 11/23/22 Range/Units 01:47 01:47 01:47 WBC 4.16 L (4.8-10.8) K/ul RBC 3.93 L (4.20-5.40) M/uL Hgb 11.7 L (12.0-16.0) g/dl Hct 36.0 L (37.0-47.0) % MCV 91.6 (80.0-100.0) fL MCH 29.8 (25.0-34.0) pg MCHC 32.5 (32.0-36.0) g/dL RDW Std Deviation 55.2 H (36.4-46.3) fL RDW Coeff of Nasir 16.8 H (11.5-14.5) % Plt Count 115 L (130-400) K/uL MPV 11.7 (9.4-12.4) fL Immature Gran % (Auto) 0.2 % Neut % (Auto) 72.3 % Lymph % (Auto) 14.7 % [place] % (Auto) 11.1 % Eos % (Auto) 1.2 % Baso % (Auto) 0.5 % Neut # (Auto) 3.01 (1.40-6.50) K/uL Lymph # (Auto) 0.61 L (1.20-3.40) K/uL [place] # (Auto) 0.46 (0.11-0.59) K/uL Eos # (Auto) 0.05 (0.00-0.50) K/uL Baso # (Auto) 0.02 (0.00-0.20) K/uL Immature Gran # (Auto) 0.01 (0.01-0.20) K/uL Sodium 136 (136-145) mmol/L Potassium 3.8 (3.5-5.1) mmol/L Chloride 103 (98-107) mmol/L Carbon Dioxide 26 (21-32) mmol/L Anion Gap 7 (3-11) BUN 18 (6-23) mg/dl Creatinine 0.54 L (0.6-1.2) mg/dl Est Cr Clr Drug Dosing 73.3 ml/min Est GFR ( Amer) 106.2 ml/min Est GFR (Non-Af Amer) 91.7 ml/min BUN/Creatinine Ratio 33.3 H (10-20) Glucose 99 (70-99(Fasting)) mg/dl Calcium 8.7 (8.6-10.3) mg/dl Magnesium 2.0 (1.7-2.4) mg/dl Total Bilirubin 1.1 H (0.2-1.0) mg/dl AST 24 (13-39) U/L ALT 15 (7-52) U/L Alkaline Phosphatase 80 (34-104) U/L Troponin I High Sens 103.6 H* (0-14) pg/ml Total Protein 7.4 (6.0-8.3) gm/dl Albumin 3.1 L (3.4-5.0) gm/dl Globulin 4.3 H (2.5-4.0) gm/dl Albumin/Globulin Ratio 0.7 L (0.9-2) 11/22/22 Range/Units 19:55 WBC (4.8-10.8) K/ul RBC (4.20-5.40) M/uL Hgb (12.0-16.0) g/dl Hct (37.0-47.0) % MCV (80.0-100.0) fL MCH (25.0-34.0) pg MCHC (32.0-36.0) g/dL RDW Std Deviation (36.4-46.3) fL RDW Coeff of Nasir (11.5-14.5) % Plt Count (130-400) K/uL MPV (9.4-12.4) fL Immature Gran % (Auto) % Neut % (Auto) % Lymph % (Auto) % [place] % (Auto) % Eos % (Auto) % Baso % (Auto) % Neut # (Auto) (1.40-6.50) K/uL Lymph # (Auto) (1.20-3.40) K/uL [place] # (Auto) (0.11-0.59) K/uL Eos # (Auto) (0.00-0.50) K/uL Baso # (Auto) (0.00-0.20) K/uL Immature Gran # (Auto) (0.01-0.20) K/uL Sodium (136-145) mmol/L Potassium (3.5-5.1) mmol/L Chloride (98-107) mmol/L Carbon Dioxide (21-32) mmol/L Anion Gap (3-11) BUN (6-23) mg/dl Creatinine (0.6-1.2) mg/dl Est Cr Clr Drug Dosing ml/min Est GFR ( Amer) ml/min Est GFR (Non-Af Amer) ml/min BUN/Creatinine Ratio (10-20) Glucose (70-99(Fasting)) mg/dl Calcium (8.6-10.3) mg/dl Magnesium (1.7-2.4) mg/dl Total Bilirubin (0.2-1.0) mg/dl AST (13-39) U/L ALT (7-52) U/L Alkaline Phosphatase (34-104) U/L Troponin I High Sens 103.7 H* (0-14) pg/ml Total Protein (6.0-8.3) gm/dl Albumin (3.4-5.0) gm/dl Globulin (2.5-4.0) gm/dl Albumin/Globulin Ratio (0.9-2) Diagnostic Findings CT OF THE ABDOMEN AND PELVIS WITHOUT CONTRAST CLINICAL HISTORY: Epigastric pain. COMPARISON STUDY: PET/CT September 17, 2017. CT of the abdomen and pelvis October 18, 2021. TECHNIQUE: Axial images of the abdomen and pelvis were obtained without IV contrast. Images were reviewed in the axial, sagittal, and coronal planes. Automated exposure control was utilized for the study. A dose lowering technique was utilized adhering to the principles of ALARA. FINDINGS: Cardiomegaly and small to moderate left and small right pleural effusions as well as a moderate sized hiatal hernia are incidentally noted within the lower chest. No pneumatosis, free air or portal venous gas is present. There are small gallstones within the gallbladder. There is mild gallbladder wall thickening. The gallbladder is not distended. A small amount of perihepatic ascites is noted. There is no biliary or pancreatic ductal dilatation. Evaluation of the abdomen and pelvis is suboptimal on this unenhanced exam. There is no hydronephrosis. No urinary calculi are present. There is no evidence for a bowel obstruction. No fluid collections are present. Mild mesenteric stranding is unchanged since prior CT. There is no lymphadenopathy. No acute fractures within the visualized skeletal structures are present. Multiple fibroids are again noted. IMPRESSION: 1. No bowel obstruction. No bowel wall thickening on unenhanced exam. Normal appendix. 2. Small to moderate left and small right pleural effusions. 3. Cholelithiasis with mild gallbladder wall thickening. However, the gallbladder is contracted. The findings do not suggest acute cholecystitis. 4. Hiatal hernia.
--- NOTE | 2022-11-24 05:03 | Ultrasound Report ---
Exam(s): US GALLBLADDER EXAM: US Abdomen Limited, Gallbladder CLINICAL HISTORY: Reason for exam: r/o cholecystitis. Nausea, epigastric pain. TECHNIQUE: Real-time ultrasound of the right upper quadrant with image documentation. COMPARISON: No relevant prior studies available. FINDINGS: Liver: Hepatomegaly. 21 cm. Slightly nodular liver contour. 9 mm echogenic liver lesion in the left hepatic lobe. Gallbladder: Contracted gallbladder with probable stones. Some stones in the gallbladder neck appear non-mobile. Gallbladder wall thickening up to 7 mm. Common bile duct: Common bile duct up to 5.7 mm. No stones. No dilation. Pancreas: Ill-defined hypoechoic area near the head of the pancreas. Other vasculature: Biphasic waveform in the portal vein. Free fluid: Small amount of perihepatic free fluid. Pleural space: Right pleural effusion. IMPRESSION: 1. Contracted gallbladder with probable stones. Some stones in the gallbladder neck appear non-mobile. Gallbladder wall thickening up to 7 mm. Findings are equivocal for cholecystitis. Thickening may be related to liver disease. 2. Slightly nodular liver contour. Hepatomegaly. Correlate for cirrhosis. 3. Biphasic waveform in the portal vein. Possible portal hypertension. 4. Small amount of perihepatic free fluid. 5. Ill-defined hypoechoic area near the head of the pancreas. Limited evaluation. Correlate with priors and consider CT follow-up. 6. 9 mm echogenic liver lesion in the left hepatic lobe. Possible hemangioma versus other lesion. Electronically signed by: Erick Farley M.D. 11/24/22 05:02 AM
[2022-11-24] MEDS ORDERED: POTASSIUM CHLORIDE CRTAB 20 MEQ TABCR PO STA (06:08)
[2022-11-24] MEDS ORDERED: ALBUMIN 25% 12.5 GM/50 ML VIAL IV ONE (06:15)
[2022-11-24 07:09] LABS: Basophils # (auto) 0.01 K/uL (0.00-0.20); Basophils % (auto) 0.3 %; Eosinophils # (auto) 0.08 K/uL (0.00-0.50); Eosinophils % (auto) 2.1 %; Hematocrit (blood only) 37.1 % (37.0-47.0); Hemoglobin 11.9 g/dl (12.0-16.0); Immature Granulocytes # (auto) 0.01 K/uL (0.01-0.20); Immature Granulocytes % (auto) 0.3 %; Lymphocytes # (auto) 0.71 K/uL (1.20-3.40); Lymphocytes % (auto) 18.7 %; Mean Corpuscular Hemoglobin 29.4 pg (25.0-34.0); Mean Corpuscular Hgb Conc 32.1 g/dL (32.0-36.0); Mean Corpuscular Volume 91.6 fL (80.0-100.0); Mean Platelet Volume 11.4 fL (9.4-12.4); Monocytes # (auto) 0.33 K/uL (0.11-0.59); Monocytes % (auto) 8.7 %; Neutrophils # (auto) 2.65 K/uL (1.40-6.50); Neutrophils % (auto) 69.9 %; Platelet Count 133 K/uL (130-400); RDW Coefficient of Variation 16.8 % (11.5-14.5); RDW Standard Deviation 55.8 fL (36.4-46.3); Red Blood Count 4.05 M/uL (4.20-5.40); White Blood Count 3.79 K/ul (4.8-10.8)
[2022-11-24] MEDS: LEVALBUTEROL HCL 0.63 MG/3 ML NEB NEB SCH ×3 (07:15→19:37)
[2022-11-24 07:24] LABS: Est GFR (African American) 106.2 ml/min; Potassium 3.8 mmol/L (3.5-5.1)
[2022-11-24 07:25] LABS: BUN Creatinine Ratio 31.5 (10-20); Creatinine Clr Calc Pharmacy 73.3 ml/min; Est GFR (Non-African American) 91.7 ml/min
[2022-11-24 07:40] LABS: Thyroid Stimulating Hormone 11.099 uIu/ml (0.300-4.500)
[2022-11-24 08:14] LABS: T4 Free Thyroxine 1.35 ng/dl (0.61-1.60)
[2022-11-24] MEDS: MIDODRINE HCL 2.5 MG TAB PO SCH ×3 (09:10→17:06)
[2022-11-24] MEDS: guaiFENesin 600 MG TABCR PO SCH ×2 (09:10→20:04)
[2022-11-24] MEDS: CYANOCOBALAMIN (B-12) 500 MCG TABLET PO SCH (09:10)
[2022-11-24] MEDS: SPIRONOLACTONE 25 MG TAB PO SCH (09:10)
[2022-11-24] MEDS: CHOLECALCIFEROL 1,000 UNITS 25 MCG TAB PO SCH (09:10)
[2022-11-24] MEDS: SUCRALFATE 1 GM/10 ML UDC PO SCH ×4 (09:10→20:04)
[2022-11-24] MEDS: FAMOTIDINE 20 MG TAB PO SCH ×2 (09:11→20:04)
[2022-11-24] MEDS: PANTOprazole 40 MG in SYRINGE 0 ML IV SCH ×2 (09:11→20:04)
[2022-11-24] MEDS: DOCUSATE SODIUM 100 MG CAP PO SCH ×2 (09:11→20:04)
[2022-11-24] MEDS: ENOXAPARIN INJ 40 MG/0.4 ML SYR SQ SCH ×2 (09:11→17:19)
--- NOTE | 2022-11-24 11:59 | Cardiology Progress Note ---
Date of Service November 24, 2022 Assessment & Plan (1) Acute bronchitis, complicated: (2) Heart failure, diastolic, with acute decompensation: (3) Pleural effusion: (4) Cardiac amyloidosis: (5) Elevated troponin: (6) Abnormal EKG: (7) Right bundle branch block: (8) Epigastric discomfort: Plan Acute complicated bronchitis. pleuropulmonary manifestations of amyloidosis. Acute decompensated diastolic congestive heart failure, NYHA class III-IV, with associated pleural effusions - Cardiac AL amyloidosis, felt to be end stage in October 2021, previously on Hospice - Supplement potassium orally and maintain normokalemia as well as normomagnesemia. Elevated troponin - Suspect secondary to the acute illness as well as cardiac amyloidosis - Patient without overt symptoms of an acute plaque rupture. - EKG without acute ischemic changes. Abnormal EKG, right bundle branch block - Suspect secondary to underlying structural heart disease, increase right ventricular pressure, ? inflammation. Prolonged QTc. - Avoid Avoid QTc prolonging medications. Cardiac amyloidosis. - Continue conservative medical management - Typical evidence based medications typically poorly tolerated - Mainstay of treatment is diuretic therapy for this patient. Epigastric discomfort 11/24/2022 Patient presented with acute pulmonary exacerbation, complicated bronchitis. Symptoms are improving Received transient IV diuresis. Current exam without volume overload We will resume oral furosemide 40 mg p.o. twice daily, continue spironolactone Admission and Anticipated Discharge Date Admission Date: November 22, 2022 Subjective Patient seen and examined, chart, medications, telemetry reviewed Patient more comfortable this morning respiratory status improved. Still with wheezy rhonchorous cough. No fevers chills. Main issues have been abdominal discomfort with CT scan and abdominal ultrasound performed. No melena medic easier. No dysuria. Review of Systems Review of Systems: All systems reviewed & are unremarkable except as noted in Subjective Physical Exam Physical Exam: General: A&Ox3. Pleasant. Comfortable. Cooperative. Dyspneic. HENT: Normocephalic. Atraumatic. Eyes: PER. Conjunctiva pink, sclera clear. Neck: + JVD. Heart: Regular at 74 bpm. Soft apical systolic murmur. No rub. Lungs: Diffuse expiratory wheezing. Absent breath sounds at the bases. Diminished. Decreased. Abdomen: +BS. Distended. Somewhat soft. Extremities: No significant lower extremity peripheral edema. No clubbing. No cyanosis. Limited neurological examination is without focal deficits. Pulses: radial=2/4, posterior tibial=2/4. Constitutional: WD/WN, vitals as above no acute distress Eyes: PERRL, conjunctivae normal, anicteric sclerae Neck: trachea midline, no thyromegaly Respiratory: Auscultation: + rhonchi; no rales Cardiovascular: Rate/Rhythm: regular rate and regular rhythm Vessels: no JVD Extremities: no edema Gastrointestinal (Abdomen): Inspection/Auscultation: + abdomen distended Percussion/Palpation: abdomen soft; abdomen nontender Results & Data Vital Signs (Past 12 Hours) Vital Signs Temp Pulse Pulse Resp BP Pulse Ox O2 Del Method 11/24/22 11:32 36.5 C 43 L 18 103/61 96 Room Air 11/24/22 07:45 79 11/24/22 07:45 Room Air 11/24/22 07:55 36.8 C 67 14 103/54 L 93 Room Air 11/24/22 07:16 58 L 16 97 Room Air 11/24/22 06:13 59 L 97/56 L 11/24/22 02:25 36.7 C 62 18 111/79 96 Room Air Laboratory Results Laboratory Results - last 24 hr 11/24/22 11/24/22 11/24/22 06:54 06:54 06:54 WBC 3.79 L RBC 4.05 L Hgb 11.9 L Hct 37.1 MCV 91.6 MCH 29.4 MCHC 32.1 RDW Std Deviation 55.8 H RDW Coeff of Nasir 16.8 H Plt Count 133 MPV 11.4 Immature Gran % (Auto) 0.3 Neut % (Auto) 69.9 Lymph % (Auto) 18.7 [place] % (Auto) 8.7 Eos % (Auto) 2.1 Baso % (Auto) 0.3 Neut # (Auto) 2.65 Lymph # (Auto) 0.71 L [place] # (Auto) 0.33 Eos # (Auto) 0.08 Baso # (Auto) 0.01 Immature Gran # (Auto) 0.01 Sodium 135 L Potassium 3.8 Chloride 104 Carbon Dioxide 24 Anion Gap 7 BUN 17 Creatinine 0.54 L Est Cr Clr Drug Dosing 73.3 Est GFR ( Amer) 106.2 Est GFR (Non-Af Amer) 91.7 BUN/Creatinine Ratio 31.5 H Glucose 96 Lactate Calcium 9.0 Magnesium 2.0 TSH 11.099 H Free T4 1.35 11/24/22 06:54 WBC RBC Hgb Hct MCV MCH MCHC RDW Std Deviation RDW Coeff of Nasir Plt Count MPV Immature Gran % (Auto) Neut % (Auto) Lymph % (Auto) [place] % (Auto) Eos % (Auto) Baso % (Auto) Neut # (Auto) Lymph # (Auto) [place] # (Auto) Eos # (Auto) Baso # (Auto) Immature Gran # (Auto) Sodium Potassium Chloride Carbon Dioxide Anion Gap BUN Creatinine Est Cr Clr Drug Dosing Est GFR ( Amer) Est GFR (Non-Af Amer) BUN/Creatinine Ratio Glucose Lactate 0.8 Calcium Magnesium TSH Free T4
[2022-11-24] MEDS ORDERED: predniSONE 20 MG TAB PO STA (14:35)
[2022-11-24] MEDS: FUROSEMIDE 40 MG TAB PO SCH (17:06)
--- NOTE | 2022-11-24 17:11 | Hospitalist Progress Note ---
Date of Service November 24, 2022 Assessment & Plan (1) Epigastric discomfort: (2) Right bundle branch block: (3) Heart failure, diastolic, with acute decompensation: (4) Acute bronchitis, complicated: (5) Elevated troponin I level: (6) Rhinovirus infection: Plan per admitting service notes with addendum: This is a 77-year-old female who has a significant past medical history of chronic diastolic CHF, cardiac amyloidosis, LVH, multiple myeloma, monoclonal paraproteinemia who presents to ED secondary to URI symptoms x4 days. Viral bronchitis Rhinovirus Patient prescribed azithromycin as outpatient and has taken for 3 days; will discontinue in setting of viral illness and prolonged QT Treat supportively with nebulizer, flutter valve, incentive spirometry and Mucinex Monitor oxygen saturation Chest x-ray negative for pneumonia 11/24 Breathing is improving, sputum production is decreasing, but still has bilateral wheezing Start prednisone 40 mg p.o. today Continue with scheduled nebs, Mucinex Cardiac amyloidosis Acute on Chronic HF, diastolic Elevated troponin EKG changes Prolonged QTC Patient without tree chest pain Does have mild troponin leak, may be in setting of viral URI Repeat 2-hour troponin unchanged update echo, last September 2021 which revealed EF 70%, severely dilated left and right atrium and findings consistent with amyloidosis pt reports 13lb weight gain has been taking lasix 40mg bid and midorine she is not taking potassium or aldactone 11/24 Transition to Lasix 40 mg twice daily Hypokalemia replete pt stopped taking outpatient potassium supplement 11/24 K 3.8 Epigastric pain GERD hx of PUD sx may be related to dyspepsia, vs gastritis vs MSK from coughing sx improved after maalox in ED will give Pepcid IV x 1 place on daily protonix and continue home Carafate if sx worsen or do not improve consider CT imaging 11/[address] abdomen pelvis: 1. No bowel obstruction. No bowel wall thickening on unenhanced exam. Normal appendix. 2. Small to moderate left and small right pleural effusions. 3. Cholelithiasis with mild gallbladder wall thickening. However, the gallbladder is contracted. The findings do not suggest acute cholecystitis. 4. Hiatal hernia. Gallbladder ultrasound: 1. Contracted gallbladder with probable stones. Some stones in the gallbladder neck appear non-mobile. Gallbladder wall thickening up to 7 mm. Findings are equivocal for cholecystitis. Thickening may be related to liver disease. 2. Slightly nodular liver contour. Hepatomegaly. Correlate for cirrhosis. 3. Biphasic waveform in the portal vein. Possible portal hypertension. 4. Small amount of perihepatic free fluid. 5. Ill-defined hypoechoic area near the head of the pancreas. Limited evaluation. Correlate with priors and consider CT follow-up. 6. 9 mm echogenic liver lesion in the left hepatic lobe. Possible hemangioma versus other lesion. General surgery consulted Epigastric pain likely secondary to hiatal hernia exacerbated by coughing And likely secondary to acute cholecystitis Given Protonix IV, Pepcid Pain improving Repeat CAT scan as an outpatient to reevaluate hypoechoic area near the head of the pancreas, liver lesion Further work up, management, and ff up as outpatient Multiple myeloma follows Dr. Luevano DVT ppx: SQ Lovenox FULL CODE PCP: Rosendo Boyce Dispo: pending Admission and Anticipated Discharge Date Admission Date: November 22, 2022 Subjective Follow-up for acute bronchitis, CHF, etc. Seen resting in bed, comfortable, not in distress States that she feels better today compared to yesterday Breathing is improving Still having some wheezing Coughing is improving No chest pain, palpitations, dizziness No abdominal pain, nausea vomiting No Fevers or chills No any other symptoms Review of Systems Review of Systems: all noted and negative except for above Physical Exam Physical Exam: General- oriented x 3, not in distress, speaks in sentences with no effort or accessory muscle use Eyes- anicteric Neck- no JVD Lungs-positive mild wheezing bilaterally Occasional rhonchi Heart- normal rate, regular rhythm; no murmurs Abdomen- normal bowel sounds, nondistended, soft, no tenderness Extremities- no pretibial edema, no calf tenderness Neuro- alert, oriented x 3; no gross focal neurologic deficits Skin- warm & dry Results & Data Results & Data Vital Signs (Past 12 Hours) Vital Signs Temp Pulse Pulse Resp BP Pulse Ox O2 Del Method 11/24/22 16:24 82 11/24/22 15:36 36.6 C 59 L 18 117/66 94 Room Air 11/24/22 12:58 80 16 95 Room Air 11/24/22 11:32 36.5 C 43 L 18 103/61 96 Room Air 11/24/22 07:45 79 11/24/22 07:45 Room Air 11/24/22 07:55 36.8 C 67 14 103/54 L 93 Room Air 11/24/22 07:16 58 L 16 97 Room Air 11/24/22 06:13 59 L 97/56 L all noted and reviewed including below
--- NOTE | 2022-11-24 21:34 | Electrocardiogram Report ---
Test Reason : Blood Pressure : / mmHG Vent. Rate : 056 BPM Atrial Rate : 066 BPM P-R Int : 000 ms QRS Dur : 124 ms QT Int : 482 ms P-R-T Axes : 000 132 -26 degrees QTc Int : 465 ms Sinus bradycardia with sinus arrhythmia Premature atrial complexes Right bundle branch block T wave abnormality, consider anterolateral ischemia Abnormal ECG When compared with ECG of 23-NOV-2022 05:44, Criteria for Septal infarct are no longer Present T wave inversion now evident in Anterolateral leads Confirmed by Cesar Tejada ([id number]) on 11/24/2022 9:33:49 PM Referred By: REFERRED SELF Confirmed By:Cesar Tejada
[2022-11-25] MEDS: SUCRALFATE 1 GM/10 ML UDC PO SCH (07:42)
[2022-11-25] MEDS: guaiFENesin 600 MG TABCR PO SCH (07:45)
[2022-11-25] MEDS: MIDODRINE HCL 2.5 MG TAB PO SCH ×2 (07:45→11:44)
[2022-11-25] MEDS: CHOLECALCIFEROL 1,000 UNITS 25 MCG TAB PO SCH (07:45)
[2022-11-25] MEDS: FAMOTIDINE 20 MG TAB PO SCH (07:45)
[2022-11-25] MEDS: CYANOCOBALAMIN (B-12) 500 MCG TABLET PO SCH (07:45)
[2022-11-25] MEDS: SPIRONOLACTONE 25 MG TAB PO SCH (07:45)
[2022-11-25] MEDS: ENOXAPARIN INJ 40 MG/0.4 ML SYR SQ SCH (07:46)
[2022-11-25] MEDS: FUROSEMIDE 40 MG TAB PO SCH (07:46)
[2022-11-25] MEDS: DOCUSATE SODIUM 100 MG CAP PO SCH (07:46)
[2022-11-25] MEDS: LEVALBUTEROL HCL 0.63 MG/3 ML NEB NEB SCH (08:05)
[2022-11-25] MEDS ORDERED: POTASSIUM CHLORIDE CRTAB 20 MEQ TABCR PO SCH (09:00)
[2022-11-25] MEDS: PANTOprazole 40 MG in SYRINGE 0 ML IV SCH (09:19)
--- NOTE | 2022-11-25 10:40 | Cardiology Progress Note ---
Date of Service November 25, 2022 Assessment & Plan (1) Acute bronchitis, complicated: (2) Heart failure, diastolic, with acute decompensation: (3) Pleural effusion: (4) Cardiac amyloidosis: (5) Elevated troponin: (6) Abnormal EKG: (7) Right bundle branch block: (8) Epigastric discomfort: Plan Acute complicated bronchitis. pleuropulmonary manifestations of amyloidosis. Acute decompensated diastolic congestive heart failure, NYHA class III-IV, with associated pleural effusions - Cardiac AL amyloidosis, felt to be end stage in October 2021, previously on Hospice - Supplement potassium orally and maintain normokalemia as well as normomagnesemia. Elevated troponin - Suspect secondary to the acute illness as well as cardiac amyloidosis - Patient without overt symptoms of an acute plaque rupture. - EKG without acute ischemic changes. Abnormal EKG, right bundle branch block - Suspect secondary to underlying structural heart disease, increase right ventricular pressure, ? inflammation. Prolonged QTc. - Avoid Avoid QTc prolonging medications. Cardiac amyloidosis. - Continue conservative medical management - Typical evidence based medications typically poorly tolerated - Mainstay of treatment is diuretic therapy for this patient. Epigastric discomfort 11/24/2022 Patient presented with acute pulmonary exacerbation, complicated bronchitis. Symptoms are improving Received transient IV diuresis. Current exam without volume overload We will resume oral furosemide 40 mg p.o. twice daily, continue spironolactone 11/25/2022 Cardiac status appears compensated still with rhonchorous cough but improving Back on oral regimen of furosemide 40 mg twice per day, spironolactone added at 25 mg/day We will need BMP in 1 week, may need to discontinue potassium supplement at that time Admission and Anticipated Discharge Date Admission Date: November 22, 2022 Subjective Patient seen and examined, chart, medications, telemetry reviewed. Pulmonary status improving predominantly with addition of prednisone. No signs or symptoms of volume or fluid overload. Still with rhonchorous cough but less productive No fevers or chills Physical Exam Constitutional: WD/WN, vitals as above no acute distress Eyes: PERRL, conjunctivae normal, anicteric sclerae Neck: trachea midline, no thyromegaly Respiratory: Auscultation: + rhonchi (On forced cough); no rales Cardiovascular: Rate/Rhythm: regular rate, regular rhythm and + irregularly irregular Vessels: no JVD Extremities: no edema Gastrointestinal (Abdomen): Inspection/Auscultation: + abdomen distended Pe rcussion/Palpation: abdomen soft; abdomen nontender Results & Data Vital Signs (Past 12 Hours) Vital Signs Temp Pulse Pulse Resp BP Pulse Ox O2 Del Method 11/25/22 08:57 67 11/25/22 08:05 68 14 97 Room Air 11/25/22 07:33 36.4 C L 67 18 121/65 94 Room Air 11/25/22 02:50 93 Room Air 11/25/22 02:47 36.9 C 57 L 16 93/55 L 92 Room Air 11/24/22 22:57 36.5 C 54 L 20 82/60 L 95 Room Air FiO2 11/25/22 08:57 11/25/22 08:05 21 11/25/22 07:33 11/25/22 02:50 11/25/22 02:47 11/24/22 22:57
--- NOTE | 2022-11-25 12:15 | Discharge Summary ---
Discharge Summary Date of Service November 25, 2022 delayed entry date of service noted above Notes For Next Care Provider Repeat CAT scan as an outpatient to reevaluate hypoechoic area near the head of the pancreas, liver lesion Further work up, management, and ff up as outpatient Medication Changes From Visit Prednisone taper as follows: 40 mg daily x1 day, then 30 mg daily x2 days, then 20 mg daily x2 days, then 10 mg daily x2 days, then stop Doxycycline 100 mg twice daily 7 days Mucinex twice daily x5 days Admission HPI Per Admitting Provider This is a 77-year-old female who has a significant past medical history of chronic diastolic CHF, cardiac amyloidosis, LVH, multiple myeloma, monoclonal paraproteinemia who presents to ED secondary to URI symptoms x4 days. She developed cough, sinus congestion and wheezing over the past 4 days that have been worsening. She also has been experiencing burning epigastric pain that she feels is, "indigestion." Pain is worse with coughing and is made better with Tums, milk and Carafate. She denies any sick contacts, fever, chills, sweats, chest pain, worsening shortness of breath, melena, hematochezia or diarrhea. Her last bowel movement was 2 days ago. Overall appetite has been poor. She does have chronic shortness of breath at baseline in setting of amyloidosis. She denies any orthopnea, PND or lower extremity edema; however, she has had a 13 pound weight gain. Typically she is 125 pounds and most recently was 138. She has been taking her Lasix 2 tablets twice daily and also stopped taking her potassium. "I am afraid to take too much." She feels her abdomen in distended and worried she may be accumulating fluid. Of significance she was last hospitalized in September 2021 in setting of acute on chronic CHF and peptic ulcer. At that point in time she was discharged home on hospice which has since been rescinded from a amyloidosis and multiple myeloma standpoint she has been relatively stable. She does have chronic lower extremity weakness and typically ambulates with a cane or walker. She has remained active and is able to keep up with her house work and ADLS. In ED patient did test positive for rhinovirus. She also had elevated troponin in setting of anterior lateral EKG changes. Her BNP was elevated at 923. Her potassium was also low at 3.2. Chest x-ray was negative for any acute disease did reveal some small bibasilar pleural effusions, atelectasis and chronic scarring.She received some Maalox in ED which did improve her symptoms. Admission Exam Per Admitting Provider Constitutional: WD/WN, vitals as above, NAD, sitting up in bed, pleasant, conversing easily Head: Normocephalic, Atraumatic Eyes: PERRL, conjunctivae normal, anicteric sclerae ENMT: external ear and nose normal, oropharynx normal Neck: trachea midline, no thyromegaly normal visual inspection Respiratory: normal respiratory effort, lungs clear to auscultation, bibasilar wheezing no rales, no rhonchi. Normal insp/exp effort, no accessory muscle use Cardiovascular: RRR, no murmur, no edema Vessels: no JVD or carotid bruit Chest: normal inspection of chest Abdomen: normal bowel sounds, soft, distended, nontender, no hepatosplenomegaly Musculoskeletal: no cyanosis or clubbing, extremities motor strength 5/5 Skin: no rashes, warm and dry normal turgor Neurologic: PERRL, EOMI, accommodation nl, no face palsy, no dysarthria CN's II-XI intact bilaterally and moves all extremities Psychiatric: A+Ox3, euthymic affect Lymphatic: no cervical or axillary lymphadenopathy : deferred Principal Dx & Hospital Course #1 = Principal Diagnosis (1) Acute bronchitis, complicated: (2) Heart failure, diastolic, with acute decompensation: (3) Epigastric discomfort: (4) Right bundle branch block: (5) Elevated troponin I level: (6) Rhinovirus infection: Plan per admitting service notes with addendum: This is a 77-year-old female who has a significant past medical history of chronic diastolic CHF, cardiac amyloidosis, LVH, multiple myeloma, monoclonal paraproteinemia who presents to ED secondary to URI symptoms x4 days. Viral bronchitis Rhinovirus Patient prescribed azithromycin as outpatient and has taken for 3 days; will discontinue in setting of viral illness and prolonged QT Treat supportively with nebulizer, flutter valve, incentive spirometry and Mucinex Monitor oxygen saturation Chest x-ray negative for pneumonia 11/25 significantly improved with supportive care, Prednisone, Nebs discharge on: Prednisone taper Doxycycline x 7 days Mucinex Cardiac amyloidosis Acute on Chronic HF, diastolic Elevated troponin EKG changes Prolonged QTC Patient without tree chest pain Does have mild troponin leak, may be in setting of viral URI Repeat 2-hour troponin unchanged update echo, last September 2021 which revealed EF 70%, severely dilated left and right atrium and findings consistent with amyloidosis pt reports 13lb weight gain has been taking lasix 40mg bid and midorine she is not taking potassium or aldactone 11/25 Telephone Switchboard Operator consulted given IV Lasix Transitioned to usual Lasix 40 mg twice daily Hypokalemia replaced Epigastric pain GERD hx of PUD sx may be related to dyspepsia, vs gastritis vs MSK from coughing placed on daily protonix and continue home Carafate 11/[address] abdomen pelvis: 1. No bowel obstruction. No bowel wall thickening on unenhanced exam. Normal appendix. 2. Small to moderate left and small right pleural effusions. 3. Cholelithiasis with mild gallbladder wall thickening. However, the gallbladder is contracted. The findings do not suggest acute cholecystitis. 4. Hiatal hernia. Gallbladder ultrasound: 1. Contracted gallbladder with probable stones. Some stones in the gallbladder neck appear non-mobile. Gallbladder wall thickening up to 7 mm. Findings are equivocal for cholecystitis. Thickening may be related to liver disease. 2. Slightly nodular liver contour. Hepatomegaly. Correlate for cirrhosis. 3. Biphasic waveform in the portal vein. Possible portal hypertension. 4. Small amount of perihepatic free fluid. 5. Ill-defined hypoechoic area near the head of the pancreas. Limited evaluation. Correlate with priors and consider CT follow-up. 6. 9 mm echogenic liver lesion in the left hepatic lobe. Possible hemangioma versus other lesion. General surgery consulted Epigastric pain likely secondary to hiatal hernia exacerbated by coughing And likely secondary to acute cholecystitis Given Protonix IV, Pepcid Pain improved Repeat CAT scan as an outpatient to reevaluate hypoechoic area near the head of the pancreas, liver lesion Further work up, management, and ff up as outpatient Multiple myeloma follows Dr. Luevano DVT ppx: SQ Lovenox FULL CODE PCP: Rosendo Boyce Dispo: pending Discharge Exam General- oriented x 3, not in distress, speaks in sentences with no effort or accessory muscle use Eyes- anicteric Neck- no JVD Lungs- mild rhonchi at the bases Heart- normal rate, regular rhythm; no murmurs Abdomen- normal bowel sounds, nondistended, soft, nontender Extremities- no pretibial edema, no calf tenderness Neuro- alert, oriented x 3; no gross focal neurologic deficits Skin- warm & dry Updated Medication List Medication Instructions Recorded Confirmed Type cholecalciferol (vitamin D3) 25 25 mcg PO DAILY 05/14/21 11/22/22 History mcg (1,000 unit) capsule (Vitamin D3) cyanocobalamin (vitamin B-12) 1,000 mcg PO DAILY 05/14/21 11/22/22 History 1,000 mcg tablet (Vitamin B-12) calcium carbonate 200 mg calcium 1,000 mg PO Q6H PRN dyspepsia #30 11/03/21 11/22/22 Rx (500 mg) chewable tablet (Tums) tabs polyethylene glycol 3350 17 gram 17 g PO DAILY PRN constipation #30 11/03/21 11/22/22 Rx oral powder packet (Miralax) ea azithromycin 250 mg tablet See Rx Instructions .Route .COMPLEX 11/22/22 11/22/22 History midodrine 5 mg tablet 5 mg PO .TID@0800,1200,1700 11/22/22 11/22/22 History potassium chloride 20 mEq 20 meq PO QAM 11/22/22 11/22/22 History tablet,extended release(part/cryst) sucralfate 100 mg/mL oral 10 ml PO QID 11/22/22 11/22/22 History suspension doxycycline hyclate 100 mg capsule 100 mg PO BID 7 days #14 caps 11/25/22 Rx furosemide 40 mg tablet 40 mg PO BID17 30 days #30 tabs 11/25/22 Rx guaifenesin 600 mg tablet, 600 mg PO Q12 5 days #10 tabs 11/25/22 Rx extended release 12 hr (Mucinex) prednisone 10 mg tablet 10 mg PO DIRECTED #16 tabs 11/25/22 Rx Hospital Stay Data Consultations 11/22/22 13:25 ED Decision to Admit Stat 11/22/22 14:46 Consult Cardiology Routine 11/23/22 16:54 Consult General Surgery Routine Diagnostic Imagining Performed Laboratory Results WBC 3.79 K/ul (4.8-10.8) L 11/24/22 06:54 RBC 4.05 M/uL (4.20-5.40) L 11/24/22 06:54 Hgb 11.9 g/dl (12.0-16.0) L 11/24/22 06:54 Hct 37.1 % (37.0-47.0) 11/24/22 06:54 MCV 91.6 fL (80.0-100.0) 11/24/22 06:54 MCH 29.4 pg (25.0-34.0) 11/24/22 06:54 MCHC 32.1 g/dL (32.0-36.0) 11/24/22 06:54 RDW Std Deviation 55.8 fL (36.4-46.3) H 11/24/22 06:54 RDW Coeff of Nasir 16.8 % (11.5-14.5) H 11/24/22 06:54 Plt Count 133 K/uL (130-400) 11/24/22 06:54 MPV 11.4 fL (9.4-12.4) 11/24/22 06:54 Immature Gran % (Auto) 0.3 % 11/24/22 06:54 Neut % (Auto) 69.9 % 11/24/22 06:54 Lymph % (Auto) 18.7 % 11/24/22 06:54 [place] % (Auto) 8.7 % 11/24/22 06:54 Eos % (Auto) 2.1 % 11/24/22 06:54 Baso % (Auto) 0.3 % 11/24/22 06:54 Neut # (Auto) 2.65 K/uL (1.40-6.50) 11/24/22 06:54 Lymph # (Auto) 0.71 K/uL (1.20-3.40) L 11/24/22 06:54 [place] # (Auto) 0.33 K/uL (0.11-0.59) 11/24/22 06:54 Eos # (Auto) 0.08 K/uL (0.00-0.50) 11/24/22 06:54 Baso # (Auto) 0.01 K/uL (0.00-0.20) 11/24/22 06:54 Immature Gran # (Auto) 0.01 K/uL (0.01-0.20) 11/24/22 06:54 PT 11.7 Seconds (9.0-12.0) 11/22/22 11:02 INR 1.1 (0.9-1.1) 11/22/22 11:02 APTT 25.6 Seconds (21.0-31.0) 11/22/22 11:02 PTT Ratio 0.9 11/22/22 11:02 VBG pH 7.56 (7.36-7.41) H 11/22/22 11:30 VBG pCO2 28 mmHg (38-50) L 11/22/22 11:30 VBG pO2 47 mmHg 11/22/22 11:30 VBG HCO3 25 mmol/L 11/22/22 11:30 VBG O2 Saturation 81.4 % 11/22/22 11:30 VBG Base Excess 3.8 mEq/L 11/22/22 11:30 Sodium 135 mmol/L (136-145) L 11/24/22 06:54 Potassium 3.8 mmol/L (3.5-5.1) 11/24/22 06:54 Chloride 104 mmol/L (98-107) 11/24/22 06:54 Carbon Dioxide 24 mmol/L (21-32) 11/24/22 06:54 Anion Gap 7 (3-11) 11/24/22 06:54 BUN 17 mg/dl (6-23) 11/24/22 06:54 Creatinine 0.54 mg/dl (0.6-1.2) L 11/24/22 06:54 Est Cr Clr Drug Dosing 73.3 ml/min 11/24/22 06:54 Est GFR ( Amer) 106.2 ml/min 11/24/22 06:54 Est GFR (Non-Af Amer) 91.7 ml/min 11/24/22 06:54 BUN/Creatinine Ratio 31.5 (10-20) H 11/24/22 06:54 Glucose 96 mg/dl (70-99(Fasting)) 11/24/22 06:54 Lactate 0.8 mmol/L (0.4-2.0) 11/24/22 06:54 Calcium 9.0 mg/dl (8.6-10.3) 11/24/22 06:54 Magnesium 2.0 mg/dl (1.7-2.4) 11/24/22 06:54 Total Bilirubin 1.1 mg/dl (0.2-1.0) H 11/23/22 01:47 AST 24 U/L (13-39) 11/23/22 01:47 ALT 15 U/L (7-52) 11/23/22 01:47 Alkaline Phosphatase 80 U/L (34-104) 11/23/22 01:47 Troponin I High Sens 103.6 pg/ml (0-14) H* 11/23/22 01:47 B-Natriuretic Peptide 923 pg/ml (0-100) H 11/22/22 11:02 Total Protein 7.4 gm/dl (6.0-8.3) 11/23/22 01:47 Albumin 3.1 gm/dl (3.4-5.0) L 11/23/22 01:47 Globulin 4.3 gm/dl (2.5-4.0) H 11/23/22 01:47 Albumin/Globulin Ratio 0.7 (0.9-2) L 11/23/22 01:47 Lipase 32 U/L (11-82) 11/22/22 11:02 TSH 11.099 uIu/ml (0.300-4.500) H 11/24/22 06:54 Free T4 1.35 ng/dl (0.61-1.60) 11/24/22 06:54 Urine Color Yellow 11/22/22 12:00 Urine Appearance Clear (Clear) 11/22/22 12:00 Urine pH 8.5 (4.5-7.5) H 11/22/22 12:00 Ur Specific [place] 1.009 (1.000-1.030) 11/22/22 12:00 Urine Protein Negative (Negative) 11/22/22 12:00 Urine Glucose (UA) Negative (Negative) 11/22/22 12:00 Urine Ketones Negative (Negative) 11/22/22 12:00 Urine Blood Negative (Negative) 11/22/22 12:00 Urine Nitrite Negative (Negative) 11/22/22 12:00 Urine Bilirubin Negative (Negative) 11/22/22 12:00 Urine Urobilinogen Negative (Negative) 11/22/22 12:00 Ur Leukocyte Esterase Negative (Negative) 11/22/22 12:00 Adenovirus (PCR) Not Detected (NotDetected) 11/22/22 11:30 B. pertussis DNA (PCR) Not Detected (NotDetected) 11/22/22 11:30 B.parapertussis DNA PCR Not Detected (NotDetected) 11/22/22 11:30 C. pneumoniae DNA (PCR) Not Detected (NotDetected) 11/22/22 11:30 Coronavirus OC43 (PCR) Not Detected (NotDetected) 11/22/22 11:30 Coronavirus HKU1 (PCR) Not Detected (NotDetected) 11/22/22 11:30 Coronavirus 229E (PCR) Not Detected (NotDetected) 11/22/22 11:30 SARS-CoV-2 (PCR) Not Detected (NotDetected) 11/22/22 11:30 Coronavirus NL63 (PCR) Not Detected (NotDetected) 11/22/22 11:30 Human Metapneumovir PCR Not Detected (NotDetected) 11/22/22 11:30 Influenza Type A (PCR) Not Detected (NotDetected) 11/22/22 11:30 Influenza Type B (PCR) Not Detected (NotDetected) 11/22/22 11:30 M. pneumoniae (PCR) Not Detected (NotDetected) 11/22/22 11:30 Parainfluenza 1 (PCR) Not Detected (NotDetected) 11/22/22 11:30 Parainfluenza 2 (PCR) Not Detected (NotDetected) 11/22/22 11:30 Parainfluenza 3 (PCR) Not Detected (NotDetected) 11/22/22 11:30 Parainfluenza 4 (PCR) Not Detected (NotDetected) 11/22/22 11:30 RSV (PCR) Not Detected (NotDetected) 11/22/22 11:30 Entero/Rhino (PCR) DETECTED (NotDetected) A* 11/22/22 11:30 Impressions Chest X-Ray 11/22/22 10:51 XR chest 1V portable HISTORY: 77 years-old Female Dyspnea acute shortness of breath COMPARISON: 11/01/2021 TECHNIQUE: AP view of the chest FINDINGS: Cardiac silhouette is enlarged. Indeterminate metallic density structures again noted projected over the midline, possibly within the stomach. Hiatal hernia. No pneumothorax. Small pleural effusion suggested with mild bibasilar linear densities. Chronic interstitial coarsening. Degenerative changes of the shoulders and spine. IMPRESSION: 1. Cardiomegaly with chronic interstitial coarsening. 2. Hiatal hernia. 3. Probable small pleural effusions with bibasilar atelectasis/scarring. ACT 112: Negative or not required by law. The above report was generated using voice recognition software. It may contain grammatical, syntax or spelling errors. Electronically signed by: Jerzy Barton M.D. 11/22/2022 11:19 AM Abdomen/Pelvis CT 11/23/22 14:17 CT OF THE ABDOMEN AND PELVIS WITHOUT CONTRAST CLINICAL HISTORY: Epigastric pain. COMPARISON STUDY: PET/CT September 17, 2017. CT of the abdomen and pelvis October 18, 2021. TECHNIQUE: Axial images of the abdomen and pelvis were obtained without IV contrast. Images were reviewed in the axial, sagittal, and coronal planes. Automated exposure control was utilized for the study. A dose lowering technique was utilized adhering to the principles of ALARA. FINDINGS: Cardiomegaly and small to moderate left and small right pleural effusions as well as a moderate sized hiatal hernia are incidentally noted within the lower chest. No pneumatosis, free air or portal venous gas is present. There are small gallstones within the gallbladder. There is mild gallbladder wall thickening. The gallbladder is not distended. A small amount of perihepatic ascites is noted. There is no biliary or pancreatic ductal dilatation. Evaluation of the abdomen and pelvis is suboptimal on this unenhanced exam. There is no hydronephrosis. No urinary calculi are present. There is no evidence for a bowel obstruction. No fluid collections are present. Mild mesenteric stranding is unchanged since prior CT. There is no lymphadenopathy. No acute fractures within the visualized skeletal structures are present. Multiple fibroids are again noted. IMPRESSION: 1. No bowel obstruction. No bowel wall thickening on unenhanced exam. Normal appendix. 2. Small to moderate left and small right pleural effusions. 3. Cholelithiasis with mild gallbladder wall thickening. However, the gallbladder is contracted. The findings do not suggest acute cholecystitis. 4. Hiatal hernia. ACT 112: Negative or not required by law. Electronically signed by: Ayan Guerrero M.D. 11/23/2022 3:47 PM Gallbladder Ultrasound 11/23/22 16:07 Exam(s): US GALLBLADDER EXAM: US Abdomen Limited, Gallbladder CLINICAL HISTORY: Reason for exam: r/o cholecystitis. Nausea, epigastric pain. TECHNIQUE: Real-time ultrasound of the right upper quadrant with image documentation. COMPARISON: No relevant prior studies available. FINDINGS: Liver: Hepatomegaly. 21 cm. Slightly nodular liver contour. 9 mm echogenic liver lesion in the left hepatic lobe. Gallbladder: Contracted gallbladder with probable stones. Some stones in the gallbladder neck appear non-mobile. Gallbladder wall thickening up to 7 mm. Common bile duct: Common bile duct up to 5.7 mm. No stones. No dilation. Pancreas: Ill-defined hypoechoic area near the head of the pancreas. Other vasculature: Biphasic waveform in the portal vein. Free fluid: Small amount of perihepatic free fluid. Pleural space: Right pleural effusion. IMPRESSION: 1. Contracted gallbladder with probable stones. Some stones in the gallbladder neck appear non-mobile. Gallbladder wall thickening up to 7 mm. Findings are equivocal for cholecystitis. Thickening may be related to liver disease. 2. Slightly nodular liver contour. Hepatomegaly. Correlate for cirrhosis. 3. Biphasic waveform in the portal vein. Possible portal hypertension. 4. Small amount of perihepatic free fluid. 5. Ill-defined hypoechoic area near the head of the pancreas. Limited evaluation. Correlate with priors and consider CT follow-up. 6. 9 mm echogenic liver lesion in the left hepatic lobe. Possible hemangioma versus other lesion. Electronically signed by: Erick Farley M.D. 11/24/22 05:02 AM 11/23/22 14:17 CT Abd and Pelvis [CT abd pelvis wo con] Stat 11/23/22 16:07 US gallbladder Urgent Pending Results Patient Have Any Pending Studies at Discharge: No Discharge Instructions Given to Patient (Per Discharging Provider) PLEASE REFER TO YOUR NEW MEDICATION LIST AND FOLLOW INSTRUCTIONS CAREFULLY. YOUR NEW MEDICATIONS INCLUDE: Prednisone taper as follows: 40 mg daily x1 day, then 30 mg daily x2 days, then 20 mg daily x2 days, then 10 mg daily x2 days, then stop Doxycycline-antibiotic for acute bronchitis Mucinex-for cough PLEASE CALL YOUR PRIMARY CARE PHYSICIAN OR RETURN TO THE ER IF WITH WORSENING OF SYMPTOMS, INCLUDING Cough, shortness of breath, sputum production, fevers or chills, etc. FOLLOW UP WITH PRIMARY CARE PHYSICIAN OUTLINED ABOVE. FOLLOW-UP WITH YOUR TRACTOR TRAILER MOVING VAN DRIVER SCHEDULED. Total Time Total Time Spent Total Time Spent (In Minutes): >30 minutes
== END 2022-11-25 13:13 | disposition home or self-care (01) | DRG 202 ==
LOC: ED 10:21 → SUATTDRO 14:46 → INTOOBSV 14:46 → 2S 14:46

== ENCOUNTER 2023-01-07 16:46 | Inpatient (IN) ==
[2023-01-07] MEDS ORDERED: ALUMINUM/MAGNESIUM SUSP 30 ML UDC PO STA (17:30)
[2023-01-07] MEDS ORDERED: ONDANSETRON INJ 2 MG/ML 2 ML VIAL IV STA (17:30)
[2023-01-07] MEDS ORDERED: MoRPHine SULFATE 4 MG/ML 1 ML CARP\\VIAL IV STA (17:30)
[2023-01-07] MEDS ORDERED: SODIUM CHLORIDE 0.9% 1,000 ML IV ONE (17:31)
[2023-01-07 18:04] LABS: Basophils # (auto) 0.01 K/uL (0.00-0.20); Basophils % (auto) 0.2 %; Eosinophils # (auto) 0.06 K/uL (0.00-0.50); Eosinophils % (auto) 0.9 %; Hematocrit (blood only) 40.1 % (37.0-47.0); Hemoglobin 13.1 g/dl (12.0-16.0); Immature Granulocytes # (auto) 0.03 K/uL (0.01-0.20); Immature Granulocytes % (auto) 0.5 %; Lymphocytes # (auto) 0.48 K/uL (1.20-3.40); Lymphocytes % (auto) 7.6 %; Mean Corpuscular Hemoglobin 29.6 pg (25.0-34.0); Mean Corpuscular Hgb Conc 32.7 g/dL (32.0-36.0); Mean Corpuscular Volume 90.7 fL (80.0-100.0); Mean Platelet Volume 11.8 fL (9.4-12.4); Monocytes % (auto) 6.3 %; Neutrophils # (auto) 5.34 K/uL (1.40-6.50); Neutrophils % (auto) 84.5 %; Platelet Count 150 K/uL (130-400); RDW Coefficient of Variation 16.4 % (11.5-14.5); RDW Standard Deviation 52.7 fL (36.4-46.3); Red Blood Count 4.42 M/uL (4.20-5.40); White Blood Count 6.32 K/ul (4.8-10.8)
[2023-01-07 18:13] LABS: Albumin Level 3.6 gm/dl (3.4-5.0); BUN Creatinine Ratio 27.8 (10-20); Bilirubin Direct 0.4 mg/dl (0-0.2); Bilirubin,Total 1.2 mg/dl (0.2-1.0); Calcium 9.3 mg/dl (8.6-10.3); Creatinine Clr Calc Pharmacy 52.6 ml/min; Est GFR (African American) 94.3 ml/min; Est GFR (Non-African American) 81.3 ml/min; Potassium 3.5 mmol/L (3.5-5.1); Total Protein 8.2 gm/dl (6.0-8.3)
[2023-01-07 18:25] LABS: INR 1.1 (0.9-1.1); Partial Thromboplastin Ratio 0.9; Partial Thromboplastin Time 24.2 Seconds (21.0-31.0); Prothrombin Time 11.9 Seconds (9.0-12.0)
--- NOTE | 2023-01-07 18:45 | XRay Report ---
PA CHEST RADIOGRAPH AND UPRIGHT AND SUPINE AP RADIOGRAPHS OF THE ABDOMEN CLINICAL HISTORY: Right upper quadrant/epigastric pain. COMPARISON STUDY: Chest radiograph November 22, 2022. CT of the abdomen and pelvis November 23, 2022. est CT October 18, 2021 FINDINGS: There is no pneumothorax. Small bilateral pleural effusions, left larger than right, are p resent. Bibasilar opacities favor atelectasis. Right apical opacity favors scarring. Moderate cardiom egaly is noted. There is no evidence for pulmonary edema. A hiatal hernia is noted. A radiodensity wi thin the intrathoracic portion of the stomach remains unchanged. This is indeterminate although likel y reflects an endoscopic clip/device. There is no evidence for free air. The bowel gas pattern is nor mal. Moderate amount of stool within the colon and rectum is noted. IMPRESSION: 1. No free air or evidence for a bowel obstruction. 2. Moderate amount of stool within the colon and rectum. 3. Small bilateral pleural effusions, left larger than right. Associated bibasilar opacities which fa vor atelectasis. ACT 112: Negative or not required by law. Electronically signed by: Ayan Guerrero M.D. 01/07/2023 6:42 PM
--- NOTE | 2023-01-07 20:38 | Ultrasound Report ---
Exam(s): US GALLBLADDER EXAM: US Abdomen Limited, Gallbladder CLINICAL HISTORY: Reason for exam: ro lovely. TECHNIQUE: Real-time ultrasound of the right upper quadrant with image documentation. COMPARISON: 11/24/2022. FINDINGS: Limitations: Exam is limited due to gas artifact in the bowel. Liver: The liver measures 20.2 cm. Previously questioned echogenicity within the liver is not identified on current exam. Gallbladder: Multiple gallstones visualized. Gallbladder wall measures 3 m. There is trace pericholecystic fluid. Suarez's sign is indeterminate due to prior medication. Common bile duct: The common bile duct measures 8 mm. No stones. No dilation. Pancreas: Unremarkable as visualized. Right kidney: The right kidney measured 10.4 cm. Free fluid: There is free fluid in Morison's pouch. Pleural space: There is right-sided pleural effusion. IMPRESSION: 1. Right-sided pleural effusion with fluid within Morison's pouch. Multiple gallstones with mild pericholecystic fluid and borderline thickening of the wall, cannot exclude acute cholecystitis although findings are nonspecific in the context of fluid overload. If indicated, recommend follow-up with HIDA scan for further evaluation. 2. Borderline prominence of the common bile duct as described, remainder of the right upper quadrant ultrasound unremarkable. Electronically signed by: Keshia Strange MD 01/07/23 20:37 PM
[2023-01-07] MEDS ORDERED: OPTIRAY 320 500ml IV ONE (21:19)
[2023-01-07 22:29] LABS: Troponin I High Sensitivity 98.1 pg/ml (0-14)
--- NOTE | 2023-01-07 22:35 | CT Scan Report ---
Exam(s): CTA CHEST IV Amt: 116ml EXAM: CT Angiography Chest With Intravenous Contrast CLINICAL HISTORY: Reason for exam: ro PE. TECHNIQUE: Axial computed tomographic angiography images of the chest with intravenous contrast. CTDI is 46 mGy and DLP is 1366.33 mGy-cm. Automated exposure control was utilized for the study. A dose lowering technique was utilized adhering to the principles of ALARA. MIP reconstructed images were created and reviewed. COMPARISON: 10/18/2021. FINDINGS: Pulmonary arteries: There is progressive decreased enhancement involving the mid distal segmental branches of the left lower lobe pulmonary artery in a homogeneous pattern which may be due to decreased blood flow velocity although pulmonary emboli cannot be entirely excluded. Otherwise the enhancement pattern throughout the remainder pulmonary arteries is normal. Aorta: Calcified atherosclerotic disease throughout the aorta with no aneurysm. Lungs: Bilateral lower lobe atelectasis versus residual infiltrates. Mild atelectasis of the lingular lobe. Fullness of the central vessels concerning for vascular congestion. No mass. Pleural space: Large bilateral pleural effusions. No pneumothorax. Heart: Moderate to severe cardiomegaly. No significant pericardial effusion. No evidence of RV dysfunction. Mediastinum: Large hiatal hernia. Bones/joints: Diffuse osteopenia with degenerative disease of the spine. No acute fracture. No dislocation. Soft tissues: Unremarkable. Lymph nodes: Unremarkable. No enlarged lymph nodes. IMPRESSION: 1. No distinct pulmonary embolus with suboptimally opacified mid distal branches of the left lower lobe pulmonary arteries in a homogeneous pattern, likely related to decreased flow velocity from diffuse cardiac congestion. 2. Significant cardiomegaly with vascular congestion and prominent bilateral pleural effusions. 3. Bilateral lower lobe atelectasis versus residual infiltrates with lingular atelectasis. Electronically signed by: Keshia Strange MD 01/07/23 22:34 PM
--- NOTE | 2023-01-07 22:38 | Emergency Department Note ---
History of Present Illness General Chief Complaint: Abdominal Pain Stated Complaint: ABDOMINAL PAIN Time Seen by Provider: 01/07/23 16:49 History of Present Illness Provider Complaint: abdominal pain Onset (ago): 45 minute(s) Pain Consistency: intermittent Location: epigastric Radiation: RUQ Severity: moderate Maximum Pain Intensity: 5 Current Pain Intensity: 5 Quality: + stabbing and + sharp Relieved By: + eating (Eating pizza) Exacerbated By: + nothing Context: + history of similar episodes (History of gallstones); no foreign tra varinder, no possible food poisoning, no sick contacts, no recent antibiotic use, no recent surgery/procedure or no recent injury Associated Symptoms: + nausea and + vomiting; no fever, no dysuria, no hematemesis, no hematochezia, no melena, no hematuria, no syncope, no headache, no chest pain and no breathing difficulty Related Data Patient Confirmed : No Home Medications Medication Instructions Recorded Confirmed Type cyanocobalamin (vitamin B-12) 1,000 mcg PO QAM 05/14/21 01/07/23 History 1,000 mcg tablet (Vitamin B-12) potassium chloride 20 mEq 20 meq PO QAM 11/22/22 01/07/23 History tablet,extended release(part/cryst) sucralfate 100 mg/mL oral 10 ml PO QID PRN Gi Upset 11/22/22 01/07/23 History suspension aspirin 81 mg tablet,delayed 81 mg PO QAM 01/07/23 01/07/23 History release furosemide 40 mg tablet 40 mg PO UD 01/07/23 01/07/23 History midodrine 5 mg tablet 5 mg PO QAM 01/07/23 01/07/23 History Allergies Allergy/AdvReac Type Severity Reaction Status Date / Time No Known Allergies Allergy Unknown ` Verified 11/22/22 13:05 Past Med/Surg History Medical History Acute combined systolic and diastolic CHF, NYHA class 3 Acute on chronic diastolic (congestive) heart failure Cardiac amyloidosis Chronic diastolic heart failure Elevated troponin GI bleed Multiple myeloma Nausea & vomiting Surgical History History of colonoscopy History of tubal ligation Family History Father , 50s Stroke Mother , 90 Coronary heart disease Social History Smoking Status: Never smoker Second Hand Exposure: No; Do You Dip or Chew Tobacco: No; Hx Alcohol Use: No Hx Substance Use: No Preferred Language: Malawian 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: Effective Residential Support Worker Required: No Beliefs That Will Affect Care: None marital status: Current Living Situation: Spouse Current Living Situation Comment: with Feels Safe at Home: Yes Assistive Devices: Glasses, Raised Toilet Seat and Walker Physical Exam Vital Signs: Vital Signs - 24 hr 01/07/23 16:50 01/07/23 16:50 01/07/23 17:33 Temperature 36.4 C L Temperature Source Oral Pulse Rate 64 62 61 Pulse Rate from Sp O2 Sensor Pulse Rhythm Regular Pulse Strength Normal Respiratory Rate 20 Respiratory Effort / Characteristics Non-Labored Sponta neous Respiratory Depth Normal Blood Pressure 94/67 L Blood Pressure Haley n 76 Blood Pressure Pos ition Lying Pulse Oximetry 94 94 Oxygen Delivery Me thod Room Air Room Air Sepsis Recent Feve r Within 48 Hours No Sepsis New/Unexpla ined Change in Men kalee Status N/A Sepsis Action Take n by Nursing No Action Required 01/07/23 17:03 01/07/23 17:10 01/07/23 17:20 Temperature Temperature Source Pulse Rate 63 62 65 Pulse Rate from Sp O2 Sensor 61 63 64 Pulse Rhythm Pulse Strength Respiratory Rate 28 H 41 H 24 Respiratory Effort / Characteristics Respiratory Depth Blood Pressure Blood Pressure Haley n Blood Pressure Pos ition Pulse Oximetry 94 93 94 Oxygen Delivery Me thod Sepsis Recent Feve r Within 48 Hours Sepsis New/Unexpla ined Change in Men kalee Status Sepsis Action Take n by Nursing 01/07/23 17:30 01/07/23 17:40 01/07/23 17:50 Temperature Temperature Source Pulse Rate 64 63 63 Pulse Rate from Sp O2 Sensor 63 65 Pulse Rhythm Pulse Strength Respiratory Rate 27 H 26 H 23 Respiratory Effort / Characteristics Respiratory Depth Blood Pressure 125/63 Blood Pressure Haley n 83 Blood Pressure Pos ition Pulse Oximetry 95 94 Oxygen Delivery Me thod Sepsis Recent Feve r Within 48 Hours Sepsis New/Unexpla ined Change in Men kalee Status Sepsis Action Take n by Nursing 01/07/23 18:00 01/07/23 18:10 01/07/23 19:02 Temperature Temperature Source Pulse Rate 62 60 88 Pulse Rate from Sp O2 Sensor 61 Pulse Rhythm Pulse Strength Respiratory Rate 21 19 12 Respiratory Effort / Characteristics Respiratory Depth Blood Pressure 114/60 Blood Pressure Haley n 78 Blood Pressure Pos ition Pulse Oximetry 94 92 Oxygen Delivery Me thod Sepsis Recent Feve r Within 48 Hours Sepsis New/Unexpla ined Change in Men kalee Status Sepsis Action Take n by Nursing 01/07/23 19:10 01/07/23 19:20 01/07/23 19:30 Temperature Temperature Source Pulse Rate 61 59 L 70 Pulse Rate from Sp O2 Sensor 62 59 L 60 Pulse Rhythm Pulse Strength Respiratory Rate 23 24 19 Respiratory Effort / Characteristics Respiratory Depth Blood Pressure 103/59 L Blood Pressure Haley n 73 Blood Pressure Pos ition Pulse Oximetry 95 92 91 Oxygen Delivery Me thod Sepsis Recent Feve r Within 48 Hours Sepsis New/Unexpla ined Change in Men kalee Status Sepsis Action Take n by Nursing 01/07/23 19:40 01/07/23 19:50 01/07/23 20:00 Temperature Temperature Source Pulse Rate 58 L 59 L 55 L Pulse Rate from Sp O2 Sensor 59 L 59 L 56 L Pulse Rhythm Pulse Strength Respiratory Rate 23 16 20 Respiratory Effort / Characteristics Respiratory Depth Blood Pressure 102/58 L Blood Pressure Haley n 72 Blood Pressure Pos ition Pulse Oximetry 94 98 94 Oxygen Delivery Me thod Sepsis Recent Feve r Within 48 Hours Sepsis New/Unexpla ined Change in Men kalee Status Sepsis Action Take n by Nursing 01/07/23 20:10 01/07/23 20:20 01/07/23 20:30 Temperature Temperature Source Pulse Rate 59 L 58 L Pulse Rate from Sp O2 Sensor 57 L 58 L Pulse Rhythm Pulse Strength Respiratory Rate 21 20 Respiratory Effort / Characteristics Respiratory Depth Blood Pressure 98/57 L Blood Pressure Haley n 76 Blood Pressure Pos ition Pulse Oximetry 93 93 Oxygen Delivery Me thod Sepsis Recent Feve r Within 48 Hours Sepsis New/Unexpla ined Change in Men kalee Status Sepsis Action Take n by Nursing 01/07/23 20:30 01/07/23 20:40 01/07/23 20:50 Temperature Temperature Source Pulse Rate 57 L 57 L 57 L Pulse Rate from Sp O2 Sensor 56 L 56 L 53 L Pulse Rhythm Pulse Strength Respiratory Rate 20 16 16 Respiratory Effort / Characteristics Respiratory Depth Blood Pressure Blood Pressure Haley n Blood Pressure Pos ition Pulse Oximetry 91 94 93 Oxygen Delivery Me thod Sepsis Recent Feve r Within 48 Hours Sepsis New/Unexpla ined Change in Men kalee Status Sepsis Action Take n by Nursing 01/07/23 21:06 01/07/23 21:10 01/07/23 21:28 Temperature Temperature Source Pulse Rate 62 62 Pulse Rate from Sp O2 Sensor 56 L Pulse Rhythm Pulse Strength Respiratory Rate 12 32 H Respiratory Effort / Characteristics Respiratory Depth Blood Pressure Blood Pressure Haley n Blood Pressure Pos ition Pulse Oximetry 95 Oxygen Delivery Me thod Sepsis Recent Feve r Within 48 Hours Sepsis New/Unexpla ined Change in Men kalee Status Sepsis Action Take n by Nursing 01/07/23 21:30 01/07/23 21:31 01/07/23 21:31 Temperature Temperature Source Pulse Rate 77 53 L Pulse Rate from Sp O2 Sensor 59 L 57 L Pulse Rhythm Pulse Strength Respiratory Rate 10 L 22 Respiratory Effort / Characteristics Respiratory Depth Blood Pressure 127/72 Blood Pressure Haley n 86 Blood Pressure Pos ition Pulse Oximetry 96 97 Oxygen Delivery Me thod Sepsis Recent Feve r Within 48 Hours Sepsis New/Unexpla ined Change in Men kalee Status Sepsis Action Take n by Nursing 01/07/23 21:40 01/07/23 21:50 01/07/23 22:00 Temperature Temperature Source Pulse Rate 55 L 55 L 68 Pulse Rate from Sp O2 Sensor Pulse Rhythm Pulse Strength Respiratory Rate 19 20 20 Respiratory Effort / Characteristics Respiratory Depth Blood Pressure Blood Pressure Haley n Blood Pressure Pos ition Pulse Oximetry Oxygen Delivery Me thod Sepsis Recent Feve r Within 48 Hours Sepsis New/Unexpla ined Change in Men kalee Status Sepsis Action Take n by Nursing 01/07/23 22:01 01/07/23 22:01 01/07/23 22:10 Temperature Temperature Source Pulse Rate 58 L 58 L Pulse Rate from Sp O2 Sensor Pulse Rhythm Pulse Strength Respiratory Rate 22 17 Respiratory Effort / Characteristics Respiratory Depth Blood Pressure 109/65 Blood Pressure Haley n 68 Blood Pressure Pos ition Pulse Oximetry 98 Oxygen Delivery Me thod Room Air Sepsis Recent Feve r Within 48 Hours Sepsis New/Unexpla ined Change in Men kalee Status Sepsis Action Take n by Nursing 01/07/23 22:40 Temperature Temperature Source Pulse Rate 55 L Pulse Rate from Sp O2 Sensor Pulse Rhythm Pulse Strength Respiratory Rate Respiratory Effort / Characteristics Respiratory Depth Blood Pressure Blood Pressure Haley n Blood Pressure Pos ition Pulse Oximetry Oxygen Delivery Me thod Sepsis Recent Feve r Within 48 Hours Sepsis New/Unexpla ined Change in Men kalee Status Sepsis Action Take n by Nursing Physical Exam: Physical Exam GENERAL: She is oriented to person, place, and time. She appears well-developed and well-nourished. She does not appear distressed. HENT: Exam performed. -Head: Normocephalic and atraumatic. -Right Ear: External ear normal. No mastoid erythema -Left Ear: External ear normal. No mastoid erythema -Mouth/Throat: The oropharynx is clear and moist. No trismus in the jaw. No dental abscesses or uvula swelling. No oropharyngeal exudate or tonsillar abscesses. EYES: Conjunctivae and EOM are normal.Right eye exhibits no discharge. Left eye exhibits no discharge. No scleral icterus. NECK: Normal range of motion. Neck supple. No JVD present. No tracheal deviation and normal range of motion present. CV: Normal rate, regular rhythm, normal heart sounds and intact distal pulses. There is no peripheral edema. Palpable radial pulses bue. PULM/CHEST: Effort normal and breath sounds normal. No respiratory distress. No stridor. She has no wheezes. She has no rales. -Chest Wall: She exhibits no tenderness. ABD: The abdomen is soft. Bowel sounds are normal. She has no distension. No mass is present. There is tenderness to palpation of the epigastric area. There is no rebound, no guarding, positive Suarez's sign and no tenderness at McBurney's point. Rovsig negative MUSC/SKEL: Normal range of motion. There is no peripheral edema, tenderness or deformity. NEURO: Motor and sensation grossly intact. SKIN: Skin is warm and dry. She is not diaphoretic. PSYCH: She has a normal mood and affect. Behavior is normal. Judgment and thought content normal. Course Course 164: The patient was evaluated in room C6. A complete history and physical exam was performed Cardiac monitoring: An order was placed for continuous cardiac monitoring. The monitor shows a rate of 60 with atrial fibrilation rhythm interpreted by me Patient reports no history of atrial fibrillation. 2100: Vital signs stable. White blood cell count 6.32. Coagulation studies within normal limits. Initial high-sensitivity troponin 74. Patient has a chronically elevated high-sensitivity troponin dating back to 2021. Imaging showed bilateral pleural effusions. Ultrasound showed free fluid in Morison's pouch as well as cholelithiasis. Unclear why the patient is having free fluid in Morison's pouch. Repeat physical exam shows no pain on palpation of the abdomen. Will obtain CT of the abdomen pelvis as well as CT of the chest. 2305: Vital signs stable. CTA shows no PE. 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 No appendicitis or bowel obstruction. Repeat high-sensitivity troponin is increased. [facility]. Discussed case with Dr. Bowen who will evaluate the patient for admission. Administered Medications Discontinued Medications Al Hydrox/Mg Hydrox/Simethicone (Aluminum/Magnesium Susp 30 Ml Udc) 15 ml PO NOW STA Stop: 01/07/23 17:31 Last Admin: 01/07/23 17:45 Dose: 15 ml Documented By: WATER ENGINEER Sodium Chloride (Nss) 1,000 mls @ 999 mls/hr IV .Q1H1M ONE Stop: 01/07/23 18:31 Last Infusion: 01/07/23 19:01 Dose: 0 mls/hr Documented By: WATER ENGINEER Admin: 01/07/23 17:45 Dose: 999 mls/hr Documented By: WATER ENGINEER Ioversol (Optiray 320 500ml) 119 ml IV ONCE ONE Stop: 01/07/23 21:20 Last Admin: 01/07/23 21:19 Dose: 119 ml Documented By: QUENTIN Morphine Sulfate (Morphine Sulfate 4 Mg/Ml 1 Ml Carp\Vial) 4 mg IV NOW STA Stop: 01/07/23 17:31 Last Admin: 01/07/23 17:45 Dose: 4 mg Documented By: WATER ENGINEER Ondansetron HCl (Ondansetron Inj 2 Mg/Ml 2 Ml Vial) 4 mg IV NOW STA Stop: 01/07/23 17:31 Last Admin: 01/07/23 17:45 Dose: 4 mg Documented By: WATER ENGINEER Medical Decision Making Laboratory Data Attestation: I reviewed the patient's lab results. 01/07/23 17:28 01/07/23 17:28 Lab Results 01/07/23 01/07/23 01/07/23 Range/Units 17:28 17:28 17:28 WBC 6.32 (4.8-10.8) K/ul RBC 4.42 (4.20-5.40) M/uL Hgb 13.1 (12.0-16.0) g/dl Hct 40.1 (37.0-47.0) % MCV 90.7 (80.0-100.0) fL MCH 29.6 (25.0-34.0) pg MCHC 32.7 (32.0-36.0) g/dL RDW Std Deviation 52.7 H (36.4-46.3) fL RDW Coeff of Nasir 16.4 H (11.5-14.5) % Plt Count 150 (130-400) K/uL MPV 11.8 (9.4-12.4) fL Immature Gran % (Auto) 0.5 % Neut % (Auto) 84.5 % Lymph % (Auto) 7.6 % Whitman % (Auto) 6.3 % Eos % (Auto) 0.9 % Baso % (Auto) 0.2 % Neut # (Auto) 5.34 (1.40-6.50) K/uL Lymph # (Auto) 0.48 L (1.20-3.40) K/uL Whitman # (Auto) 0.40 (0.11-0.59) K/uL Eos # (Auto) 0.06 (0.00-0.50) K/uL Baso # (Auto) 0.01 (0.00-0.20) K/uL Immature Gran # (Auto) 0.03 (0.01-0.20) K/uL PT 11.9 (9.0-12.0) Seconds INR 1.1 (0.9-1.1) APTT 24.2 (21.0-31.0) Seconds PTT Ratio 0.9 Sodium 138 (136-145) mmol/L Potassium 3.5 (3.5-5.1) mmol/L Chloride 102 (98-107) mmol/L Carbon Dioxide 26 (21-32) mmol/L Anion Gap 10 (3-11) BUN 20 (6-23) mg/dl Creatinine 0.72 (0.6-1.2) mg/dl Est Cr Clr Drug Dosing 52.6 ml/min Est GFR ( Amer) 94.3 ml/min Est GFR (Non-Af Amer) 81.3 ml/min BUN/Creatinine Ratio 27.8 H (10-20) Glucose 171 H (70-99(Fasting)) mg/dl Calcium 9.3 (8.6-10.3) mg/dl Total Bilirubin 1.2 H (0.2-1.0) mg/dl Direct Bilirubin 0.4 H (0-0.2) mg/dl AST 40 H (13-39) U/L ALT 17 (7-52) U/L Alkaline Phosphatase 110 H (34-104) U/L Troponin I High Sens 74.0 H* (0-14) pg/ml Total Protein 8.2 (6.0-8.3) gm/dl Albumin 3.6 (3.4-5.0) gm/dl Lipase 18 (11-82) U/L 01/07/23 Range/Units 21:05 WBC (4.8-10.8) K/ul RBC (4.20-5.40) M/uL Hgb (12.0-16.0) g/dl Hct (37.0-47.0) % MCV (80.0-100.0) fL MCH (25.0-34.0) pg MCHC (32.0-36.0) g/dL RDW Std Deviation (36.4-46.3) fL RDW Coeff of Nasir (11.5-14.5) % Plt Count (130-400) K/uL MPV (9.4-12.4) fL Immature Gran % (Auto) % Neut % (Auto) % Lymph % (Auto) % Whitman % (Auto) % Eos % (Auto) % Baso % (Auto) % Neut # (Auto) (1.40-6.50) K/uL Lymph # (Auto) (1.20-3.40) K/uL Whitman # (Auto) (0.11-0.59) K/uL Eos # (Auto) (0.00-0.50) K/uL Baso # (Auto) (0.00-0.20) K/uL Immature Gran # (Auto) (0.01-0.20) K/uL PT (9.0-12.0) Seconds INR (0.9-1.1) APTT (21.0-31.0) Seconds PTT Ratio Sodium (136-145) mmol/L Potassium (3.5-5.1) mmol/L Chloride (98-107) mmol/L Carbon Dioxide (21-32) mmol/L Anion Gap (3-11) BUN (6-23) mg/dl Creatinine (0.6-1.2) mg/dl Est Cr Clr Drug Dosing ml/min Est GFR ( Amer) ml/min Est GFR (Non-Af Amer) ml/min BUN/Creatinine Ratio (10-20) Glucose (70-99(Fasting)) mg/dl Calcium (8.6-10.3) mg/dl Total Bilirubin (0.2-1.0) mg/dl Direct Bilirubin (0-0.2) mg/dl AST (13-39) U/L ALT (7-52) U/L Alkaline Phosphatase (34-104) U/L Troponin I High Sens 98.1 H* D (0-14) pg/ml Total Protein (6.0-8.3) gm/dl Albumin (3.4-5.0) gm/dl Lipase (11-82) U/L Imaging Data Attestation: I personally reviewed and interpreted this imaging study as follows: My Impression: Acute abdominal series: Chest x-ray shows cardiomegaly with bilateral pleural effusions. No free air or air-fluid levels. Radiologist's Impression: Chest/Abdomen X-ray 01/07/23 17:31 PA CHEST RADIOGRAPH AND UPRIGHT AND SUPINE AP RADIOGRAPHS OF THE ABDOMEN CLINICAL HISTORY: Right upper quadrant/epigastric pain. COMPARISON STUDY: Chest radiograph November 22, 2022. CT of the abdomen and pelvis November 23, 2022. Chest CT October 18, 2021 FINDINGS: There is no pneumothorax. Small bilateral pleural effusions, left larger than right, are present. Bibasilar opacities favor atelectasis. Right apical opacity favors scarring. Moderate cardiomegaly is noted. There is no evidence for pulmonary edema. A hiatal hernia is noted. A radiodensity within the intrathoracic portion of the stomach remains unchanged. This is indeterminate although likely reflects an endoscopic clip/device. There is no evidence for free air. The bowel gas pattern is normal. Moderate amount of stool within the colon and rectum is noted. IMPRESSION: 1. No free air or evidence for a bowel obstruction. 2. Moderate amount of stool within the colon and rectum. 3. Small bilateral pleural effusions, left larger than right. Associated bibasilar opacities which favor atelectasis. ACT 112: Negative or not required by law. Electronically signed by: Ayan Guerrero M.D. 01/07/2023 6:42 PM Gallbladder Ultrasound 01/07/23 17:31 Exam(s): US GALLBLADDER EXAM: US Abdomen Limited, Gallbladder CLINICAL HISTORY: Reason for exam: ro lovely. TECHNIQUE: Real-time ultrasound of the right upper quadrant with image documentation. COMPARISON: 11/24/2022. FINDINGS: Limitations: Exam is limited due to gas artifact in the bowel. Liver: The liver measures 20.2 cm. Previously questioned echogenicity within the liver is not identified on current exam. Gallbladder: Multiple gallstones visualized. Gallbladder wall measures 3 m. There is trace pericholecystic fluid. Suarez's sign is indeterminate due to prior medication. Common bile duct: The common bile duct measures 8 mm. No stones. No dilation. Pancreas: Unremarkable as visualized. Right kidney: The right kidney measured 10.4 cm. Free fluid: There is free fluid in Morison's pouch. Pleural space: There is right-sided pleural effusion. IMPRESSION: 1. Right-sided pleural effusion with fluid within Morison's pouch. Multiple gallstones with mild pericholecystic fluid and borderline thickening of the wall, cannot exclude acute cholecystitis although findings are nonspecific in the context of fluid overload. If indicated, recommend follow-up with HIDA scan for further evaluation. 2. Borderline prominence of the common bile duct as described, remainder of the right upper quadrant ultrasound unremarkable. Electronically signed by: Keshia Strange MD 01/07/23 20:37 PM Abdomen/Pelvis CT 01/07/23 21:00 Exam(s): CT ABDOMEN + PELVIS With Contrast IV Amt: 116ml EXAM: CT Abdomen and Pelvis With Intravenous Contrast CLINICAL HISTORY: Reason for exam: abd pain. TECHNIQUE: Axial computed tomography images of the abdomen and pelvis with intravenous contrast. CTDI is 46 mGy and DLP is 1366.33 mGy-cm. Automated exposure control was utilized for the study. A dose lowering technique was utilized adhering to the principles of ALARA. CONTRAST: Patient received 116ml of IV contrast COMPARISON: None. FINDINGS: Lung bases: Bilateral lower lobe atelectasis. Pleural space: Moderate to large bilateral pleural effusions. Heart: Cardiomegaly. Mediastinum: Large hiatal hernia containing a significant portion of the stomach. ABDOMEN: Liver: Heterogeneous enhancement of the liver with nodular appearance, cannot exclude Budd-Chiari. Gallbladder and bile ducts: Multiple small gallstones. No ductal dilation. Pancreas: Unremarkable. No mass. No ductal dilation. Spleen: The spleen measures 13.1 cm consistent with mild splenomegaly. Adrenals: Unremarkable. No mass. Kidneys and ureters: Unremarkable. No solid mass. No hydronephrosis. Stomach and bowel: Increased fecal debris within the colon consistent with mild constipation. Scattered diverticulosis with no signs of diverticulitis. No obstruction. PELVIS: Appendix: Normal appendix. Bladder: Thickening of urinary bladder wall which may indicate cystitis. Reproductive: Anteverted uterus with bulbous appearance suggestive of uterine fibroids, largest seen posteriorly measuring 3 cm. ABDOMEN and PELVIS: Intraperitoneal space: Mild ascites surrounding the liver. No free air. Bones/joints: Multilevel degenerative disease of the spine, more severe at L5-S1. No acute fracture. No dislocation. Soft tissues: Unremarkable. Vasculature: Atherosclerotic disease of aorta with no aneurysm or dissection. No severe stenosis. Lymph nodes: Unremarkable. No enlarged lymph nodes. IMPRESSION: 1. Significant cardiomegaly with large bilateral pleural effusions and lower lobe atelectasis. 2. Large hiatal hernia with a significant portion of the stomach above the hemidiaphragm. 3. 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 Borderline splenomegaly. Multiple tiny gallstones. Mild ascites. 4. Mild constipation. Diverticulosis with no signs of diverticulitis. No acute appendicitis or bowel obstruction. 5. Fibromatous uterus otherwise incompletely characterized. If indicated, this can be further assessed with MRI or ultrasound of the pelvis in nonacute setting. Electronically signed by: Keshia Strange MD 01/07/23 22:48 PM Chest CTA 01/07/23 21:00 Exam(s): CTA CHEST IV Amt: 116ml EXAM: CT Angiography Chest With Intravenous Contrast CLINICAL HISTORY: Reason for exam: ro PE. TECHNIQUE: Axial computed tomographic angiography images of the chest with intravenous contrast. CTDI is 46 mGy and DLP is 1366.33 mGy-cm. Automated exposure control was utilized for the study. A dose lowering technique was utilized adhering to the principles of ALARA. MIP reconstructed images were created and reviewed. COMPARISON: 10/18/2021. FINDINGS: Pulmonary arteries: There is progressive decreased enhancement involving the mid distal segmental branches of the left lower lobe pulmonary artery in a homogeneous pattern which may be due to decreased blood flow velocity although pulmonary emboli cannot be entirely excluded. Otherwise the enhancement pattern throughout the remainder pulmonary arteries is normal. Aorta: Calcified atherosclerotic disease throughout the aorta with no aneurysm. Lungs: Bilateral lower lobe atelectasis versus residual infiltrates. Mild atelectasis of the lingular lobe. Fullness of the central vessels concerning for vascular congestion. No mass. Pleural space: Large bilateral pleural effusions. No pneumothorax. Heart: Moderate to severe cardiomegaly. No significant pericardial effusion. No evidence of RV dysfunction. Mediastinum: Large hiatal hernia. Bones/joints: Diffuse osteopenia with degenerative disease of the spine. No acute fracture. No dislocation. Soft tissues: Unremarkable. Lymph nodes: Unremarkable. No enlarged lymph nodes. IMPRESSION: 1. No distinct pulmonary embolus with suboptimally opacified mid distal branches of the left lower lobe pulmonary arteries in a homogeneous pattern, likely related to decreased flow velocity from diffuse cardiac congestion. 2. Significant cardiomegaly with vascular congestion and prominent bilateral pleural effusions. 3. Bilateral lower lobe atelectasis versus residual infiltrates with lingular atelectasis. Electronically signed by: Keshia Strange MD 01/07/23 22:34 PM [facility] Narrative 1649: The patient was evaluated in room C6. A complete history and physical exam was performed Cardiac monitoring: An order was placed for continuous cardiac monitoring. The monitor shows a rate of 60 with atrial fibrilation rhythm interpreted by me Patient reports no history of atrial fibrillation. 2100: Vital signs stable. White blood cell count 6.32. Coagulation studies within normal limits. Initial high-sensitivity troponin 74. Patient has a chronically elevated high-sensitivity troponin dating back to 2021. Imaging showed bilateral pleural effusions. Ultrasound showed free fluid in Morison's pouch as well as cholelithiasis. Unclear why the patient is having free fluid in Morison's pouch. Repeat physical exam shows no pain on palpation of the abdomen. Will obtain CT of the abdomen pelvis as well as CT of the chest. 2305: Vital signs stable. CTA shows no PE. 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 No appendicitis or bowel obstruction. Repeat high-sensitivity troponin is increased. Patient will be [facility] to [facility] hospitalist team. Discussed case with Dr. Bowen who will evaluate the patient for admission. Impression & Plan Atrial fibrillation, Pleural effusion, Elevated troponin I level, Gallstones Discharge Plan Visit Data Chief Complaint: Abdominal Pain Stated Complaint: ABDOMINAL PAIN ED Provider: Raymundo Rangel Discharge Problem: Atrial fibrillation, Pleural effusion, Elevated troponin I level, Gallstones Patient Disposition: Admitted As Inpatient Forms Stand Alone Forms: [facility] Prescriptions Prescriptions: No Action cyanocobalamin (vitamin B-12) [Vitamin B-12] 1,000 mcg Tablet 1,000 mcg PO QAM midodrine 5 mg tablet 5 mg PO QAM aspirin [Aspirin Low-Strength] 81 mg Tablet,Delayed Release (Dr/Ec) 81 mg PO QAM furosemide 40 mg tablet 40 mg PO UD Rx Instructions: take 2 tablets in the morning AND take 1 tablet in afternoon sucralfate 100 mg/mL suspension 10 ml PO QID PRN (Reason: Gi Upset) potassium chloride 20 mEq tablet,ER particles/crystals 20 meq PO QAM Referrals Referrals: Rosendo Boyce DO [Primary Care Provider] -
--- NOTE | 2023-01-07 22:49 | CT Scan Report ---
Exam(s): CT ABDOMEN + PELVIS With Contrast IV Amt: 116ml EXAM: CT Abdomen and Pelvis With Intravenous Contrast CLINICAL HISTORY: Reason for exam: abd pain. TECHNIQUE: Axial computed tomography images of the abdomen and pelvis with intravenous contrast. CTDI is 46 mGy and DLP is 1366.33 mGy-cm. Automated exposure control was utilized for the study. A dose lowering technique was utilized adhering to the principles of ALARA. CONTRAST: Patient received 116ml of IV contrast COMPARISON: None. FINDINGS: Lung bases: Bilateral lower lobe atelectasis. Pleural space: Moderate to large bilateral pleural effusions. Heart: Cardiomegaly. Mediastinum: Large hiatal hernia containing a significant portion of the stomach. ABDOMEN: Liver: Heterogeneous enhancement of the liver with nodular appearance, cannot exclude Budd-Chiari. Gallbladder and bile ducts: Multiple small gallstones. No ductal dilation. Pancreas: Unremarkable. No mass. No ductal dilation. Spleen: The spleen measures 13.1 cm consistent with mild splenomegaly. Adrenals: Unremarkable. No mass. Kidneys and ureters: Unremarkable. No solid mass. No hydronephrosis. Stomach and bowel: Increased fecal debris within the colon consistent with mild constipation. Scattered diverticulosis with no signs of diverticulitis. No obstruction. PELVIS: Appendix: Normal appendix. Bladder: Thickening of urinary bladder wall which may indicate cystitis. Reproductive: Anteverted uterus with bulbous appearance suggestive of uterine fibroids, largest seen posteriorly measuring 3 cm. ABDOMEN and PELVIS: Intraperitoneal space: Mild ascites surrounding the liver. No free air. Bones/joints: Multilevel degenerative disease of the spine, more severe at L5-S1. No acute fracture. No dislocation. Soft tissues: Unremarkable. Vasculature: Atherosclerotic disease of aorta with no aneurysm or dissection. No severe stenosis. Lymph nodes: Unremarkable. No enlarged lymph nodes. IMPRESSION: 1. Significant cardiomegaly with large bilateral pleural effusions and lower lobe atelectasis. 2. Large hiatal hernia with a significant portion of the stomach above the hemidiaphragm. 3. 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 Borderline splenomegaly. Multiple tiny gallstones. Mild ascites. 4. Mild constipation. Diverticulosis with no signs of diverticulitis. No acute appendicitis or bowel obstruction. 5. Fibromatous uterus otherwise incompletely characterized. If indicated, this can be further assessed with MRI or ultrasound of the pelvis in nonacute setting. Electronically signed by: Keshia Strange MD 01/07/23 22:48 PM
--- NOTE | 2023-01-07 23:59 | History & Physical Report ---
Date of Service January 07, 2023 Assessment & Plan (1) Atrial fibrillation: Plan: Slow A-fib New onset History cardiac amyloidosis chronic diastolic heart failure (EF 60 to 65%, TTE 2022 ), patient with signs of fluid overload although currently without SOB complaints valvular heart disease (mild MR/severe TR) Pulmonary hypertension Hypotension on midodrine hx NSVT Biliary colic Rule out cholecystitis no sepsis for now multiple myeloma status post chemotherapy, no recent follow-up with [facility] specialist Subclinical hypothyroidism Hyperglycemia, likely DM, outpatient hemoglobin A1c noted to be 6.5 in 2019, patient unaware of diagnosis past tobacco abuse PCU IV heparin for thromboembolic prophylaxis for new onset A-fib TTE, Cardiology consult Re: New onset A-fib HIDA scan Re: Biliary colic rule out cholecystitis General surgery consult Re: Biliary colic N.p.o. for now Resume home diuretic Rx once patient eating Recheck TSH next month ISS BG goal 1 10-1 40, update hemoglobin A1c, DM education DVT prophylaxis with IV heparin Full code Text document was generated using [employer] voice recognition software. It may contain grammatical or spelling errors. Kindly contact undersigned for clarification of any documentation item in ques tion. History of Present Illness Chief Complaint: Abdominal pain Primary Care Provider: Rosendo Boyce, History obtained from patient and records. Medical history significant for chronic diastolic heart failure (EF 60 to 65%, TTE 2022 ), valvular heart disease (mild MR/severe TR), NSVT, cardiac amyloidosis, hypotension on midodrine, pulmonary hypertension, multiple myeloma status post chemotherapy, cholelithiasis, past tobacco abuse. Last confinement October 2022 for complicated bronchitis and decompensated heart failure. Epigastric discomfort at time of admission. Gallstones on imaging. No cholecystitis as per General Surgery evaluation. Few days ago, patient noted bloatedness and fluid retention without unusual SOB symptoms. No chest pain. Admits to dietary indiscretion. Some improvement with home diuretic intake. Today, patient experienced severe upper achy belly pain after consuming pizza and soda. Some nausea, minimal emesis. No fever, no chills. A-fib noted at the ER. 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 Allergies Allergy/AdvReac Type Severity Reaction Status Date / Time No Known Allergies Allergy Unknown ` Verified 11/22/22 13:05 Home Medications Medication Instructions Recorded Confirmed Type cyanocobalamin (vitamin B-12) 1,000 mcg PO QAM 05/14/21 01/07/23 History 1,000 mcg tablet (Vitamin B-12) potassium chloride 20 mEq 20 meq PO QAM 11/22/22 01/07/23 History tablet,extended release(part/cryst) sucralfate 100 mg/mL oral 10 ml PO QID PRN Gi Upset 11/22/22 01/07/23 History suspension aspirin 81 mg tablet,delayed 81 mg PO QAM 01/07/23 01/07/23 History release furosemide 40 mg tablet 40 mg PO UD 01/07/23 01/07/23 History midodrine 5 mg tablet 5 mg PO QAM 01/07/23 01/07/23 History Past Med/Surg History Medical History Acute combined systolic and diastolic CHF, NYHA class 3 Acute on chronic diastolic (congestive) heart failure Cardiac amyloidosis Chronic diastolic heart failure Elevated troponin GI bleed Multiple myeloma Nausea & vomiting Surgical History History of colonoscopy History of tubal ligation Family History Father , 50s Stroke Mother , 90 Coronary heart disease Social History Smoking Status: Never smoker Second Hand Exposure: No; Do You Dip or Chew Tobacco: No; Hx Alcohol Use: No Hx Substance Use: No Preferred Language: Bulgarian 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: Effective Quality Control Operator Required: No Beliefs That Will Affect Care: None marital status: Current Living Situation: Spouse Current Living Situation Comment: with Other Information That Helps Us Care for You: No Feels Safe at Home: Yes Safety Concerns: Feels Safe At This Time Assistive Devices: Glasses, Raised Toilet Seat and Walker Review of Systems Review of Systems: As per HPI, all other systems reviewed and negative Physical Exam Physical Exam: GENERAL: Comfortable, anxious, no respiratory distress SKIN: Normal color, warm HEENT: [place] palpebral conjunctivae, no ptosis, dry buccal mucosa NECK : Supple, no tenderness CHEST : Decreased breath sounds, no tenderness HEART : Bradycardic, no obvious murmurs ABDOMEN: Some distention, right upper quadrant tenderness EXTREMITIES : Minimal LE swelling, no LE tenderness, no other conspicuous deformities noted NEUROLOGIC : Coherent, no facial asymmetry, no other gross focality Results & Data Results & Data Vital Signs (Past 12 Hours) Vital Signs Temp Pulse Resp BP Pulse Ox O2 Del Method 01/07/23 22:40 55 L 01/07/23 22:10 58 L 17 98 Room Air 01/07/23 22:01 109/65 01/07/23 22:01 58 L 22 01/07/23 22:00 68 20 01/07/23 21:50 55 L 20 01/07/23 21:40 55 L 19 01/07/23 21:31 53 L 22 97 01/07/23 21:31 127/72 01/07/23 21:30 77 10 L 96 01/07/23 21:28 95 01/07/23 21:10 62 32 H 01/07/23 21:06 62 12 01/07/23 20:50 57 L 16 93 01/07/23 20:40 57 L 16 94 01/07/23 20:30 57 L 20 91 01/07/23 20:30 98/57 L 01/07/23 20:20 58 L 20 93 01/07/23 20:10 59 L 21 93 01/07/23 20:00 55 L 20 102/58 L 94 01/07/23 19:50 59 L 16 98 01/07/23 19:40 58 L 23 94 01/07/23 19:30 70 19 103/59 L 91 01/07/23 19:20 59 L 24 92 01/07/23 19:10 61 23 95 01/07/23 19:02 88 12 01/07/23 18:10 60 19 92 01/07/23 18:00 62 21 114/60 94 01/07/23 17:50 63 23 01/07/23 17:40 63 26 H 94 01/07/23 17:30 64 27 H 125/63 95 01/07/23 17:20 65 24 94 01/07/23 17:10 62 41 H 93 01/07/23 17:03 63 28 H 94 01/07/23 17:33 61 01/07/23 16:50 62 94 Room Air 01/07/23 16:50 36.4 C L 64 20 94/67 L 94 Room Air Laboratory Results Laboratory Results WBC 6.32 K/ul (4.8-10.8) 01/07/23 17: RBC 4.42 M/uL (4.20-5.40) 01/07/23 17: Hgb 13.1 g/dl (12.0-16.0) 01/07/23 17: Hct 40.1 % (37.0-47.0) 01/07/23 17: MCV 90.7 fL (80.0-100.0) 01/07/23: MCH 29.6 pg (25.0-34.0) 01/07/23: MCHC 32.7 g/dL (32.0-36.0) 01/07/23: RDW Std Deviation 52.7 fL (36.4-46.3) H 01/07/23: RDW Coeff of Nasir 16.4 % (11.5-14.5) H 01/07/23: Plt Count 150 K/uL (130-400) 01/07/23: MPV 11.8 fL (9.4-12.4) 01/07/23: Immature Gran % (Auto) 0.5 % 01/07/23: Neut % (Auto) 84.5 % 01/07/23: Lymph % (Auto) 7.6 % 01/07/23: [place] % (Auto) 6.3 % 01/07/23 17: Eos % (Auto) 0.9 % 01/07/23: Baso % (Auto) 0.2 % 01/07/23: Neut # (Auto) 5.34 K/uL (1.40-6.50) 01/07/23 17: Lymph # (Auto) 0.48 K/uL (1.20-3.40) L 01/07/23 17: [place] # (Auto) 0.40 K/uL (0.11-0.59) 01/07/23 17: Eos # (Auto) 0.06 K/uL (0.00-0.50) 01/07/23 17:28 Baso # (Auto) 0.01 K/uL (0.00-0.20) 01/07/23 17: Immature Gran # (Auto) 0.03 K/uL (0.01-0.20) 01/07/23 17:28 PT 11.9 Seconds (9.0-12.0) 01/07/23 17: INR 1.1 (0.9-1.1) 01/07/23 17: APTT 24.2 Seconds (21.0-31.0) 01/07/23 17: PTT Ratio 0.9 01/07/23: Sodium 138 mmol/L (136-145) 01/07/23: Potassium 3.5 mmol/L (3.5-5.1) 01/07/23: Chloride 102 mmol/L (98-107) 01/07/23: Carbon Dioxide 26 mmol/L (21-32) 01/07/23: Anion Gap 10 (3-11) 01/07/23 17: BUN 20 mg/dl (6-23) 01/07/23 17: Creatinine 0.72 mg/dl (0.6-1.2) 01/07/23: Est Cr Clr Drug Dosing 52.6 ml/min 01/07/23 17:28 Est GFR ( Amer) 94.3 ml/min 01/07/23 17: Est GFR (Non-Af Amer) 81.3 ml/min 01/07/23: BUN/Creatinine Ratio 27.8 (10-20) H 01/07/23 17: Glucose 171 mg/dl (70-99(Fasting)) H 01/07/23 17: Calcium 9.3 mg/dl (8.6-10.3) 01/07/23 17: Total Bilirubin 1.2 mg/dl (0.2-1.0) H 01/07/23 17:28 Direct Bilirubin 0.4 mg/dl (0-0.2) H 01/07/23 17:28 AST 40 U/L (13-39) H 01/07/23 17:28 ALT 17 U/L (7-52) 01/07/23 17:28 Alkaline Phosphatase 110 U/L (34-104) H 01/07/23 17:28 Troponin I High Sens 98.1 pg/ml (0-14) H* D 01/07/23 21:05 Total Protein 8.2 gm/dl (6.0-8.3) 01/07/23 17:28 Albumin 3.6 gm/dl (3.4-5.0) 01/07/23 17:28 Lipase 18 U/L (11-82) 01/07/23 17:28 Impressions Chest/Abdomen X-ray 01/07/23 17:31 PA CHEST RADIOGRAPH AND UPRIGHT AND SUPINE AP RADIOGRAPHS OF THE ABDOMEN CLINICAL HISTORY: Right upper quadrant/epigastric pain. COMPARISON STUDY: Chest radiograph November 22, 2022. CT of the abdomen and pelvis November 23, 2022. Chest CT October 18, 2021 FINDINGS: There is no pneumothorax. Small bilateral pleural effusions, left larger than right, are present. Bibasilar opacities favor atelectasis. Right apical opacity favors scarring. Moderate cardiomegaly is noted. There is no evidence for pulmonary edema. A hiatal hernia is noted. A radiodensity within the intrathoracic portion of the stomach remains unchanged. This is indeterminate although likely reflects an endoscopic clip/device. There is no evidence for free air. The bowel gas pattern is normal. Moderate amount of stool within the colon and rectum is noted. IMPRESSION: 1. No free air or evidence for a bowel obstruction. 2. Moderate amount of stool within the colon and rectum. 3. Small bilateral pleural effusions, left larger than right. Associated bibasilar opacities which favor atelectasis. ACT 112: Negative or not required by law. Electronically signed by: Ayan Guerrero M.D. 01/07/2023 6:42 PM Gallbladder Ultrasound 01/07/23 17:31 Exam(s): US GALLBLADDER EXAM: US Abdomen Limited, Gallbladder CLINICAL HISTORY: Reason for exam: ro lovely. TECHNIQUE: Real-time ultrasound of the right upper quadrant with image documentation. COMPARISON: 11/24/2022. FINDINGS: Limitations: Exam is limited due to gas artifact in the bowel. Liver: The liver measures 20.2 cm. Previously questioned echogenicity within the liver is not identified on current exam. Gallbladder: Multiple gallstones visualized. Gallbladder wall measures 3 m. There is trace pericholecystic fluid. Suarez's sign is indeterminate due to prior medication. Common bile duct: The common bile duct measures 8 mm. No stones. No dilation. Pancreas: Unremarkable as visualized. Right kidney: The right kidney measured 10.4 cm. Free fluid: There is free fluid in Morison's pouch. Pleural space: There is right-sided pleural effusion. IMPRESSION: 1. Right-sided pleural effusion with fluid within Morison's pouch. Multiple gallstones with mild pericholecystic fluid and borderline thickening of the wall, cannot exclude acute cholecystitis although findings are nonspecific in the context of fluid overload. If indicated, recommend follow-up with HIDA scan for further evaluation. 2. Borderline prominence of the common bile duct as described, remainder of the right upper quadrant ultrasound unremarkable. Electronically signed by: Keshia Strange MD 01/07/23 20:37 PM Abdomen/Pelvis CT 01/07/23 21:00 Exam(s): CT ABDOMEN + PELVIS With Contrast IV Amt: 116ml EXAM: CT Abdomen and Pelvis With Intravenous Contrast CLINICAL HISTORY: Reason for exam: abd pain. TECHNIQUE: Axial computed tomography images of the abdomen and pelvis with intravenous contrast. CTDI is 46 mGy and DLP is 1366.33 mGy-cm. Automated exposure control was utilized for the study. A dose lowering technique was utilized adhering to the principles of ALARA. CONTRAST: Patient received 116ml of IV contrast COMPARISON: None. FINDINGS: Lung bases: Bilateral lower lobe atelectasis. Pleural space: Moderate to large bilateral pleural effusions. Heart: Cardiomegaly. Mediastinum: Large hiatal hernia containing a significant portion of the stomach. ABDOMEN: Liver: Heterogeneous enhancement of the liver with nodular appearance, cannot exclude Budd-Chiari. Gallbladder and bile ducts: Multiple small gallstones. No ductal dilation. Pancreas: Unremarkable. No mass. No ductal dilation. Spleen: The spleen measures 13.1 cm consistent with mild splenomegaly. Adrenals: Unremarkable. No mass. Kidneys and ureters: Unremarkable. No solid mass. No hydronephrosis. Stomach and bowel: Increased fecal debris within the colon consistent with mild constipation. Scattered diverticulosis with no signs of diverticulitis. No obstruction. PELVIS: Appendix: Normal appendix. Bladder: Thickening of urinary bladder wall which may indicate cystitis. Reproductive: Anteverted uterus with bulbous appearance suggestive of uterine fibroids, largest seen posteriorly measuring 3 cm. ABDOMEN and PELVIS: Intraperitoneal space: Mild ascites surrounding the liver. No free air. Bones/joints: Multilevel degenerative disease of the spine, more severe at L5-S1. No acute fracture. No dislocation. Soft tissues: Unremarkable. Vasculature: Atherosclerotic disease of aorta with no aneurysm or dissection. No severe stenosis. Lymph nodes: Unremarkable. No enlarged lymph nodes. IMPRESSION: 1. Significant cardiomegaly with large bilateral pleural effusions and lower lobe atelectasis. 2. Large hiatal hernia with a significant portion of the stomach above the hemidiaphragm. 3. 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 Borderline splenomegaly. Multiple tiny gallstones. Mild ascites. 4. Mild constipation. Diverticulosis with no signs of diverticulitis. No acute appendicitis or bowel obstruction. 5. Fibromatous uterus otherwise incompletely characterized. If indicated, this can be further assessed with MRI or ultrasound of the pelvis in nonacute setting. Electronically signed by: Keshia Strange MD 01/07/23 22:48 PM Chest CTA 01/07/23 21:00 Exam(s): CTA CHEST IV Amt: 116ml EXAM: CT Angiography Chest With Intravenous Contrast CLINICAL HISTORY: Reason for exam: ro PE. TECHNIQUE: Axial computed tomographic angiography images of the chest with intravenous contrast. CTDI is 46 mGy and DLP is 1366.33 mGy-cm. Automated exposure control was utilized for the study. A dose lowering technique was utilized adhering to the principles of ALARA. MIP reconstructed images were created and reviewed. COMPARISON: 10/18/2021. FINDINGS: Pulmonary arteries: There is progressive decreased enhancement involving the mid distal segmental branches of the left lower lobe pulmonary artery in a homogeneous pattern which may be due to decreased blood flow velocity although pulmonary emboli cannot be entirely excluded. Otherwise the enhancement pattern throughout the remainder pulmonary arteries is normal. Aorta: Calcified atherosclerotic disease throughout the aorta with no aneurysm. Lungs: Bilateral lower lobe atelectasis versus residual infiltrates. Mild atelectasis of the lingular lobe. Fullness of the central vessels concerning for vascular congestion. No mass. Pleural space: Large bilateral pleural effusions. No pneumothorax. Heart: Moderate to severe cardiomegaly. No significant pericardial effusion. No evidence of RV dysfunction. Mediastinum: Large hiatal hernia. Bones/joints: Diffuse osteopenia with degenerative disease of the spine. No acute fracture. No dislocation. Soft tissues: Unremarkable. Lymph nodes: Unremarkable. No enlarged lymph nodes. IMPRESSION: 1. No distinct pulmonary embolus with suboptimally opacified mid distal branches of the left lower lobe pulmonary arteries in a homogeneous pattern, likely related to decreased flow velocity from diffuse cardiac congestion. 2. Significant cardiomegaly with vascular congestion and prominent bilateral pleural effusions. 3. Bilateral lower lobe atelectasis versus residual infiltrates with lingular atelectasis. Electronically signed by: Keshia Strange MD 01/07/23 22:34 PM Diagnostic Findings EKG as per my interpretation : Rate 65, A-fib, normal axis, septal infarct, diffuse T wave abnormalities
[2023-01-08 00:03] LABS: Magnesium 2.1 mg/dl (1.7-2.4); Thyroid Stimulating Hormone 7.297 uIu/ml (0.300-4.500)
[2023-01-08] MEDS ORDERED: LORazepam 0.5 MG TAB PO PRN (00:04)
[2023-01-08] MEDS ORDERED: PROMETHAZINE HCL 6.25 MG in SODIUM CHLORIDE 0.9% 50 ML IV PRN (00:04)
[2023-01-08] MEDS ORDERED: ALBUMIN 25% 25 GM/100 ML VIAL IV ONE (00:04)
[2023-01-08] MEDS ORDERED: Heparin IV Adult Wt-Based Low-Dose *NO* Bolus Protocol IV STA (00:42)
[2023-01-08] MEDS ORDERED: HEPARIN SODIUM/DEXTROSE 25,000 UNITS/500 ML BAG IV SCH (00:45)
[2023-01-08] MEDS: traMADol HCL 50 MG TABLET PO PRN (01:21)
[2023-01-08] MEDS ORDERED: GLUCOSE 40% GEL 15 GM TUBE PO PRN (01:26)
[2023-01-08] MEDS ORDERED: GLUCAGON FOR INJ 1 MG VIAL SQ PRN (01:26)
[2023-01-08] MEDS ORDERED: CARBOHYDRATES FOR HYPOGLYCEMIA PO PRN (01:26)
[2023-01-08] MEDS ORDERED: DEXTROSE 50% 50 ML SYRINGE IV PRN (01:26)
[2023-01-08] MEDS ORDERED: GLUCOSE 10 TAB/TUBE PO PRN (01:26)
[2023-01-08 02:37] LABS: Appearance Urine Clear (Clear); Bacteria Urine Automated Negative (Negative); Bilirubin Urine Negative (Negative); Blood Urine 2+ (Negative); Color Urine Yellow; Epithelial Cell Urine Auto >30 /lpf (0-5); Glucose Urine UA Negative (Negative); Ketones Urine Negative (Negative); Leukocyte Esterase Urine 1+ (Negative); Nitrite Urine Negative (Negative); Protein Urine 1+ (Negative); Specific Gravity Urine > 1.045 (1.000-1.030); Urobilinogen Urine Negative (Negative); pH Urine 5.5 (4.5-7.5)
[2023-01-08 02:53] LABS: Cast Urine Automated 0 /lpf (0-5)
[2023-01-08] MEDS: INSULIN ASPART PER UNIT CHARGE SC SCH ×3 (02:58→22:18)
--- NOTE | 2023-01-08 05:52 | Surgery Consultation ---
I have discussed this case with the surgical PA. I agree with the assessmment and plan. Date of Consultation January 08, 2023 Assessment & Plan (1) Gallstones: Patient has been admitted on the hospitalist service. We recommend proceeding as follows from a surgical perspective Analgesics to be provided Antiemetics to be provided There is no clear evidence of cholecystitis on imaging that has been performed, therefore the medical service has ordered a HIDA scan to further delineate if this is present. The patient has multiple medical comorbidities and a significant cardiovascular history. The patient will be a high surgical risk if she does have cholecystitis. Due to the patient's multiple medical comorbidities, if cholecystitis is present it may be beneficial to consider options other than surgery such as endoscopic decompression or percutaneous cholecystostomy. Whether this will be needed is yet to be determined until she has her HIDA scan. Additional recommendations to be forthcoming based on her clinical course as unfolds and pending studies. History of Present Illness Reason for Consultation: Abdominal pain Attending Physician: Ward Cortes MD History of Present Illness This is a 77-year-old female who presented to the emergency department secondary to abdominal pain. Patient says that she was in her usual state of health when after eating yesterday she developed severe right upper quadrant pain. She noted that she broke out in a sweat but did not check her temperature. She did have associated nausea and vomiting. She notes that the pain was nonradiating without modifying factors. Of note the patient does have a significant cardiovascular history. She says that she has been diagnosed with amyloidosis. In addition the patient does admit to some chest tightness with activity. The patient was hospitalized in October of this year and she was seen in consultation by cardiology. 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 The patient was also noted to have decompensated diastolic congestive heart failure It is also noteworthy to mention that the patient was recently hospitalized in October of this year. The patient was seen by [facility] general surgery secondary to epigastric discomfort the patient was noted to have a contracted gallbladder with gallstones on gallbladder ultrasound on November 23, 2022. At that time surgical consultation did not feel as though the patient was suffering from acute cholecystitis and was felt that potentially her hiatal hernia was some of the cause of her epigastric discomfort. The patient was noted to be a high surgical risk at that time Since arrival to the hospital the patient has had labs and imaging which independent reviewed. The patient did have an obstruction series that showed no evidence of free air or bowel obstruction. The patient was noted to have small bilateral pleural effusions on the chest x-ray portion of the study. A gallbladder ultrasound was performed that showed patient had borderline prominence of the common bile duct. On this study the patient was noted to have multiple gallstones with trace pericholecystic fluid. A CT scan of the abdomen was performed that showed a large hiatal hernia. On this study the patient was noted to have multiple gallstones with no biliary ductal dilatation. A CT scan of the chest showed no evidence of pulmonary emboli. Patient was noted to have cardiomegaly with pulmonary vascular congestion and bilateral lower lobe atelectasis versus infiltrates. Labs include a CBC were white blood cell count was normal. Hemoglobin and hematocrit along with the platelet count were normal. Coagulation studies were normal. Chemistry profile showed sodium and potassium along with BUN and creatinine were normal. She was noted to have a slight elevation of bilirubin at 1.2 and a slight elevation of the direct bilirubin at 0.4. AST had a slight elevation at 40 but ALT was normal. Alkaline phosphatase was slightly elevated at 110. The patient did have a high sensitivity troponin that was elevated at 98.1. Urinalysis did show 10-30 white blood cells per high-power field and EKG showed atrial fibrillation with inverted T waves in the lateral leads. At the time of my interview the patient was resting comfortably in bed and she was in no distress Allergies Allergy/AdvReac Type Severity Reaction Status Date / Time No Known Allergies Allergy Unknown ` Verified 11/22/22 13:05 Home Medications Medication Instructions Recorded Confirmed Type cyanocobalamin (vitamin B-12) 1,000 mcg PO QAM 05/14/21 01/07/23 History 1,000 mcg tablet (Vitamin B-12) potassium chloride 20 mEq 20 meq PO QAM 11/22/22 01/07/23 History tablet,extended release(part/cryst) sucralfate 100 mg/mL oral 10 ml PO QID PRN Gi Upset 11/22/22 01/07/23 History suspension aspirin 81 mg tablet,delayed 81 mg PO QAM 01/07/23 01/07/23 History release furosemide 40 mg tablet 40 mg PO UD 01/07/23 01/07/23 History midodrine 5 mg tablet 5 mg PO QAM 01/07/23 01/07/23 History Patient History Medical History Acute combined systolic and diastolic CHF, NYHA class 3 Acute on chronic diastolic (congestive) heart failure Cardiac amyloidosis Chronic diastolic heart failure Elevated troponin GI bleed Multiple myeloma Nausea & vomiting Surgical History History of colonoscopy History of tubal ligation Family History Father , 50s Stroke Mother , 90 Coronary heart disease Social History Smoking Status: Never smoker Second Hand Exposure: No; Do You Dip or Chew Tobacco: No; Hx Alcohol Use: No Hx Substance Use: No Preferred Language: Mohawk 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: Effective Whipper Beater Required: No Beliefs That Will Affect Care: None marital status: Current Living Situation: Spouse Current Living Situation Comment: with Feels Safe at Home: Yes Assistive Devices: Glasses, Raised Toilet Seat and Walker Review of Systems Constitutional: no fever Ear, Nose, Mouth, Throat: no ear pain Respiratory: + dyspnea on exertion Cardiovascular: + chest pain with activity Gastrointestinal: as per Subjective / HPI Genitourinary: no dysuria Musculoskeletal: no back pain Integumentary: no rash Neurologic: no localized weakness Physical Exam Constitutional: WD/WN, vitals as above Eyes: + anicteric sclerae ENMT: Ears: no hearing impairment and no external ear abnormality Neck: trachea midline Respiratory: normal respiratory effort; no respiratory distress and no labored breathing Breath sounds are decreased at bases bilateral Cardiovascular: Rate/Rhythm: + irregularly irregular Gastrointestinal (Abdomen): Abdomen is soft and nonrigid. It is nondistended. There is no rebound tenderness or guarding but patient did have pain with palpation in the right upper quadrant Musculoskeletal: No calf tenderness Skin: no rashes Neurologic: moves all extremities Psychiatric: A+Ox3, euthymic affect Results & Data Vital Signs (Past 12 Hours) Vital Signs Pulse Pulse Resp BP BP Pulse Ox O2 Del Method 01/08/23 03:41 62 16 108/66 96 Room Air 01/08/23 02:00 55 L 20 112/60 92 01/08/23 01:30 55 L 22 118/60 93 01/08/23 01:00 56 L 17 102/55 L 94 01/08/23 00:30 54 L 23 109/59 L 95 01/07/23 23:00 57 L 21 115/71 92 01/07/23 22:40 55 L 01/07/23 22:10 58 L 17 98 Room Air 01/07/23 22:01 109/65 01/07/23 22:01 58 L 22 01/07/23 22:00 68 20 01/07/23 21:50 55 L 20 01/07/23 21:40 55 L 19 01/07/23 21:31 53 L 22 97 01/07/23 21:31 127/72 01/07/23 21:30 77 10 L 96 01/07/23 21:28 95 01/07/23 21:10 62 32 H 01/07/23 21:06 62 12 01/07/23 20:50 57 L 16 93 01/07/23 20:40 57 L 16 94 01/07/23 20:30 57 L 20 91 01/07/23 20:30 98/57 L 01/07/23 20:20 58 L 20 93 01/07/23 20:10 59 L 21 93 01/07/23 20:00 55 L 20 102/58 L 94 01/07/23 19:50 59 L 16 98 01/07/23 19:40 58 L 23 94 01/07/23 19:30 70 19 103/59 L 91 01/07/23 19:20 59 L 24 92 01/07/23 19:10 61 23 95 01/07/23 19:02 88 12 01/07/23 18:10 60 19 92 01/07/23 18:00 62 21 114/60 94 01/07/23 17:50 63 23 PG Care Time/CCT Total # of Minutes Spent Total Time Spent with Patient: Total time spent is greater than 50% in coordination of care (as documented) at patient's floor/unit and/or counseling patient: Coding Level of Care Code 58444 INT INP/OBS CARE 3/75MIN Diagnoses Gallstones K80.20
[2023-01-08 06:54] LABS: Estimated Average Glucose 126 mg/dl
[2023-01-08] MEDS ORDERED: INFLUENZA VACCINE HIGH-DOSE (HD-IIV4) PF 65+ 0.7mL SYR IM ONE (06:56)
[2023-01-08 07:15] LABS: Basophils # (auto) 0.01 K/uL (0.00-0.20); Basophils % (auto) 0.3 %; Eosinophils # (auto) 0.03 K/uL (0.00-0.50); Hematocrit (blood only) 38.8 % (37.0-47.0); Hemoglobin 12.3 g/dl (12.0-16.0); Immature Granulocytes # (auto) 0.01 K/uL (0.01-0.20); Immature Granulocytes % (auto) 0.3 %; Lymphocytes # (auto) 0.47 K/uL (1.20-3.40); Lymphocytes % (auto) 15.8 %; Mean Corpuscular Hemoglobin 29.6 pg (25.0-34.0); Mean Corpuscular Hgb Conc 31.7 g/dL (32.0-36.0); Mean Corpuscular Volume 93.3 fL (80.0-100.0); Mean Platelet Volume 12.3 fL (9.4-12.4); Monocytes % (auto) 10.1 %; Neutrophils # (auto) 2.16 K/uL (1.40-6.50); Neutrophils % (auto) 72.5 %; Platelet Count 110 K/uL (130-400); RDW Coefficient of Variation 16.3 % (11.5-14.5); RDW Standard Deviation 55.4 fL (36.4-46.3); Red Blood Count 4.16 M/uL (4.20-5.40); White Blood Count 2.98 K/ul (4.8-10.8)
[2023-01-08 07:37] LABS: Albumin Globulin Ratio 0.9 (0.9-2); Albumin Level 3.5 gm/dl (3.4-5.0); BUN Creatinine Ratio 36.1 (10-20); Bilirubin,Total 2.2 mg/dl (0.2-1.0); Calcium 8.8 mg/dl (8.6-10.3); Creatinine Clr Calc Pharmacy 62.1 ml/min; Est GFR (African American) 102.1 ml/min; Est GFR (Non-African American) 88.1 ml/min; Globulin 3.8 gm/dl (2.5-4.0); Partial Thromboplastin Ratio 1.3; Partial Thromboplastin Time 36.2 Seconds (21.0-31.0); Potassium 3.5 mmol/L (3.5-5.1); Total Protein 7.3 gm/dl (6.0-8.3)
[2023-01-08] MEDS ORDERED: POLYETHYLENE (MIRALAX) 17 GM PACK PO PRN (08:37)
--- NOTE | 2023-01-08 08:51 | Cardiology Consultation ---
Date of Consultation January 08, 2023 Assessment & Plan (1) Cardiac amyloidosis: (2) Chronic heart failure with preserved ejection fraction (HFpEF): (3) Sinus arrhythmia: (4) Abdominal pain: Plan IMPRESSION: Medically complex with PMH as stated below. Cardiac history notable for cardiac amyloidosis and chronic HFpEF. Admitted for abdominal discomfort and currently being worked up for cholecystis-- NPO for HIDA scan this afternoon. Telemetry revealing SR/SA with rates in the 50-60s. AFIB NOT seen on EKGs or telemetry during admission PLAN: HFpEF/Cardiac Amyloid: Well compensated from a cardiac standpoint. Caution use of IV hydration in the setting of chronic diastolic CHF. Sinus arrhythmia: Tele and EKGs with evidence of SB/SA with PACs. While patient does have a risk of AFIB given history of cardiac amyloid none has been seen this admission. Recommend discontinuation of IV heparin. No indication for mcfp AC at this time. No AVN blocking agents indicated at this time due to slow resting heart rate. Abdominal pain: Will defer to primary service for workup of possible cholecystitis Discussed with Dr. Hernandez. No further recommendations from a cardiology standpoint. Supervising Physician Co-Signing Physician Notes Patient seen and examined, chart and medications clinical evaluations reviewed Assessment and plan as above Complex 77-year-old female with cardiac amyloidosis and chronic diastolic heart failure presents with symptoms of abdominal bloating abdominal pain. Concern raised regarding possible atrial fibrillation with rhythm demonstrating sinus rhythm with atrial ectopy and no atrial fibrillation CAT scan with small bilateral pleural effusions consistent with prior studies. Exam without volume overload. Furosemide on hold pending GI review likely resume in a.m. History of Present Illness Reason for Consultation: AFIB Requesting Physician: Lindsay rosales Attending Physician: Ward Cortes MD History of Present Illness 77-year-old female who initially presented to the [facility] emergency department due to abdominal discomfort. Concerns for acute cholecystitis--treated with IV fluids, pain medication, and Zofran. Surgery consulted who recommended proceeding first with a HIDA scan. Per chart review patient was incidentally found to be in atrial fibrillation, rate controlled 60s. New diagnosis. Patient with asymptomatic in this regard. Started on IV heparin for stroke prevention. CTA of the chest: negative for PE, vascular congestion, prominent bilateral pleural effusions, bilateral lower lobe atelectasis Labs: Stable CBC, renal function stable, potassium low normal at 3.5. Elevated liver function tests. High-sensitivity troponin elevated but flat, 74 >>98.1>>89.5 (generally unchanged from prior troponin readings), TSH elevated with normal free T4 EKG: Atrial fibrillation, 65 bpm with nonspecific T wave abnormalities in anterior lateral leads. Echo dated 11/22/2022: LVEF 60 to 65% with severe concentric LVH. Mild MR, severe TR, dilated IVC, grade 3 diastolic dysfunction Tele: SR/SA 50s-60s Upon entrance into the room patient resting in bed. No cardiac complaints. Denies chest pain or shortness of breath. Occasional palpitations noted if she is anxious. No recent concerns for fluid retention. No orthopnea or PND. No slow er extremity edema. Currently NPO for HIDA scan this afternoon. 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 Villela) and [facility] [address] Hematology (Dr. Luevano) 5.History of B/L pleural effusions Allergies Allergy/AdvReac Type Severity Reaction Status Date / Time No Known Allergies Allergy Unknown ` Verified 11/22/22 13:05 Home Medications Medication Instructions Recorded Confirmed Type cyanocobalamin (vitamin B-12) 1,000 mcg PO QAM 05/14/21 01/07/23 History 1,000 mcg tablet (Vitamin B-12) potassium chloride 20 mEq 20 meq PO QAM 11/22/22 01/07/23 History tablet,extended release(part/cryst) sucralfate 100 mg/mL oral 10 ml PO QID PRN Gi Upset 11/22/22 01/07/23 History suspension aspirin 81 mg tablet,delayed 81 mg PO QAM 01/07/23 01/07/23 History release furosemide 40 mg tablet 40 mg PO UD 01/07/23 01/07/23 History midodrine 5 mg tablet 5 mg PO QAM 01/07/23 01/07/23 History Patient History Medical History Acute combined systolic and diastolic CHF, NYHA class 3 Acute on chronic diastolic (congestive) heart failure Cardiac amyloidosis Chronic diastolic heart failure Elevated troponin GI bleed Multiple myeloma Nausea & vomiting Surgical History History of colonoscopy History of tubal ligation Family History Father , 50s Stroke Mother , 90 Coronary heart disease Social History Smoking Status: Never smoker Second Hand Exposure: No; Do You Dip or Chew Tobacco: No; Hx Alcohol Use: No Hx Substance Use: No Preferred Language: Uzbek 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: Effective 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 Required: No Beliefs That Will Affect Care: None marital status: Current Living Situation: Spouse Current Living Situation Comment: with Other Information That Helps Us Care for You: No Feels Safe at Home: Yes Safety Concerns: Feels Safe At This Time Assistive Devices: Glasses, Raised Toilet Seat and Walker Review of Systems Review of Systems: All systems reviewed & are unremarkable except as noted in HPI & below Physical Exam Constitutional: no acute distress ENMT: external ear and nose normal, oropharynx normal Neck: normal visual inspection and trachea midline Respiratory: normal respiratory effort, lungs clear to auscultation Cardiovascular: RRR, no murmur, no edema Rate/Rhythm: regular rate and regular rhythm Heart Sounds: normal S1, normal S2 and + murmur Vessels: no JVD Extremities: no edema Gastrointestinal (Abdomen): Inspection/Auscultation: abdomen normal to inspection and normal bowel sounds; abdomen not distended Percu ssion/Palpation: + abdomen tender and abdomen soft Musculoskeletal: no cyanosis or clubbing, extremities motor strength 5/5 Skin: no rashes, warm and dry Psychiatric: A+Ox3, euthymic affect Results & Data Vital Signs (Past 12 Hours) Vital Signs Temp Pulse Pulse Resp BP BP Pulse Ox 01/08/23 08:33 36.6 C 59 L 18 107/62 92 01/08/23 07:23 36.4 C 73 16 101/58 L 96 01/08/23 03:41 62 16 108/66 96 01/08/23 02:00 55 L 20 112/60 92 01/08/23 01:30 55 L 22 118/60 93 01/08/23 01:00 56 L 17 102/55 L 94 01/08/23 00:30 54 L 23 109/59 L 95 01/07/23 23:00 57 L 21 115/71 92 01/07/23 22:40 55 L 01/07/23 22:10 58 L 17 98 01/07/23 22:01 109/65 01/07/23 22:01 58 L 22 01/07/23 22:00 68 20 01/07/23 21:50 55 L 20 01/07/23 21:40 55 L 19 01/07/23 21:31 53 L 22 97 01/07/23 21:31 127/72 01/07/23 21:30 77 10 L 96 01/07/23 21:28 95 01/07/23 21:10 62 32 H 01/07/23 21:06 62 12 01/07/23 20:50 57 L 16 93 O2 Del Method 01/08/23 08:33 Room Air 01/08/23 07:23 Room Air 01/08/23 03:41 Room Air 01/08/23 02:00 01/08/23 01:30 01/08/23 01:00 01/08/23 00:30 01/07/23 23:00 01/07/23 22:40 01/07/23 22:10 Room Air 01/07/23 22:01 01/07/23 22:01 01/07/23 22:00 01/07/23 21:50 01/07/23 21:40 01/07/23 21:31 01/07/23 21:31 01/07/23 21:30 01/07/23 21:28 01/07/23 21:10 01/07/23 21:06 01/07/23 20:50 Laboratory Results Cardiac Enzymes 01/07/23 01/07/23 01/08/23 Range/Units 17:28 21:05 06:49 AST 40 H 173 H (13-39) U/L Troponin I High Sens 74.0 H* 98.1 H* D (0-14) pg/ml 01/08/23 Range/Units 06:49 AST (13-39) U/L Troponin I High Sens 89.5 H* (0-14) pg/ml Coagulation 01/07/23 01/08/23 Range/Units 17:28 06:49 PT 11.9 (9.0-12.0) Seconds APTT 24.2 36.2 H (21.0-31.0) Seconds CBC 01/07/23 01/08/23 Range/Units 17:28 06:49 WBC 6.32 2.98 L (4.8-10.8) K/ul RBC 4.42 4.16 L (4.20-5.40) M/uL Hgb 13.1 12.3 (12.0-16.0) g/dl Hct 40.1 38.8 (37.0-47.0) % Plt Count 150 110 L (130-400) K/uL Neut # (Auto) 5.34 2.16 (1.40-6.50) K/uL Lymph # (Auto) 0.48 L 0.47 L (1.20-3.40) K/uL [place] # (Auto) 0.40 0.30 (0.11-0.59) K/uL Eos # (Auto) 0.06 0.03 (0.00-0.50) K/uL Baso # (Auto) 0.01 0.01 (0.00-0.20) K/uL Comprehensive Metabolic Panel 01/07/23 01/08/23 Range/Units 17:28 06:49 Sodium 138 138 (136-145) mmol/L Potassium 3.5 3.5 (3.5-5.1) mmol/L Chloride 102 105 (98-107) mmol/L Carbon Dioxide 26 27 (21-32) mmol/L BUN 20 22 (6-23) mg/dl Creatinine 0.72 0.61 (0.6-1.2) mg/dl Glucose 171 H 86 (70-99(Fasting)) mg/dl Calcium 9.3 8.8 (8.6-10.3) mg/dl Direct Bilirubin 0.4 H (0-0.2) mg/dl AST 40 H 173 H (13-39) U/L ALT 17 87 H (7-52) U/L Alkaline Phosphatase 110 H 142 H (34-104) U/L Total Protein 8.2 7.3 (6.0-8.3) gm/dl Albumin 3.6 3.5 (3.4-5.0) gm/dl Intake and Output 01/07/23 01/08/23 01/08/23 22:59 06:59 14:59 Intake Total 1000 / 1100 100 / 1100 Balance 1000 / 1100 100 / 1100 Intake: IV 1000 / 1100 100 / 1100 Albumin 25% 25 gm In 100 ml @ 100 / 100 50 mls/hr IV ONE ONE Rx#: [id number] Sodium Chloride 0.9% 1,000 ml @ 1000 / 1000 999 mls/hr IV .Q1H1M ONE Rx#: [id number] Other: Weight 58.4 kg Weight Measurement Method Built in [facility]
[2023-01-08] MEDS ORDERED: POTASSIUM CHLORIDE CRTAB 20 MEQ TABCR PO STA (10:08)
--- NOTE | 2023-01-08 16:09 | Electrocardiogram Report ---
Test Reason : Blood Pressure : / mmHG Vent. Rate : 065 BPM Atrial Rate : 000 BPM P-R Int : 000 ms QRS Dur : 092 ms QT Int : 462 ms P-R-T Axes : 000 023 203 degrees QTc Int : 480 ms Normal sinus rhythm with occasional Premature atrial complexes Septal infarct , age undetermined T wave abnormality, consider anterolateral ischemia Abnormal ECG When compared with ECG of 24-NOV-2022 05:39, Right bundle branch block is no longer Present Septal infarct is now Present Confirmed by Todd Mcwilliams ([id number]) on 01/08/2023 4:09:03 PM Referred By: REFERRED SELF Confirmed By:Todd Mcwilliams
--- NOTE | 2023-01-08 16:15 | Nuclear Medicine Report ---
NUCLEAR MEDICINE HEPATOBILIARY SCAN CLINICAL HISTORY: Abdominal pain. Gallstones. COMPARISON: None TECHNIQUE: 5.1 mCi of technetium 99m Choletec IV was injected at 1:45 PM on January 08, 2023. Immed iately following injection, imaging of the abdomen was carried out for 60 minutes in the anterior pro jection. FINDINGS: Hepatic uptake of radiotracer is prompt and homogeneous. Activity is identified within the gallbladder at 50 minutes. No common bile duct activity was noted at 60 minutes. Common bile duct ac tivity was noted at 120 minutes. However, small bowel activity was not noted at 120 minutes. IMPRESSION: 1. No evidence for acute cholecystitis. 2. Delayed visualization of activity within the common bile duct and nonvisualization of small bowel activity. These findings are nonspecific and differential considerations include sphincter dysfunctio n, spasm or partial common bile duct obstruction. Findings could be correlated with liver function te sts. ACT 112: Negative or not required by law. Electronically signed by: Ayan Guerrero M.D. 01/08/2023 4:13 PM
--- NOTE | 2023-01-08 16:27 | Hospitalist Progress Note ---
Date of Service January 08, 2023 Assessment & Plan (1) Abdominal pain: Plan: Abdominal Pain Cholelithiasis, ?Biliary Colic Transaminitis Abd Pain likely multifactorial:Hiatal hernia, hepatomegaly, symptomatic gallstones, constipation ? 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 Multiple tiny gallstones. Mild ascites. Mild constipation. Diverticulosis with no signs of diverticulitis.No acute appendicitis or bowel obstruction. Fibromatous uterus otherwise incompletely characterized. If indicated, this can be further assessed with MRI or ultrasound of the pelvis in nonacute setting. --Gall Bladder USD:Right-sided pleural effusion with fluid within Morison's pouch.Multiple gallstones with mild pericholecystic fluid and borderline thickening of the wall, cannot exclude acute cholecystitis although findings are nonspecific in the context of fluid overload. If indicated, recommend follow-up with HIDA scan for further evaluation. Borderline prominence of the common bile duct as described, remainder of the right upper quadrant ultrasound unremarkable. --HIDA:No evidence for acute cholecystitis. Delayed visualization of activity within the common bile duct and nonvisualization of small bowel activity. These findings are nonspecific and differential considerations include sphincter dysfunction, spasm or partial common bile duct obstruction. Findings could be correlated with liver function tests. --Continue Carafate Liquid diet for now Bowel regimen to prevent constipation Surgery on board Will consider GI eval if needed Monitor LFTs Abnormal UA: Urine Cx pending Patient denies any dysuria, hematuria, increased urine frequency Will consider antibiotics if needed Sinus arrhythmia Chronic hypotension H/O cardiac amyloidosis H/O NSVT Monitor on telemetry Replete electrolytes as needed Chronic diastolic heart failure Valvular heart disease Pulmonary hypertension Bilateral pleural effusion --ECHO 11/22/22: Left ventricle cavity is small. Severe concentric LVH. EF 60 to 65%. Mild mitral regurgitation. Severe tricuspid regurgitation. Estimated systolic pulmonary pressure is 43 mmHg. Dilated IVC with normal respiratory variation suggestive of right atrial pressure of 8 mmHg. Grade 3 diastolic dysfunction. --CTA:No distinct pulmonary embolus with suboptimally opacified mid distal branches of the left lower lobe pulmonary arteries in a homogeneous pattern, likely related to decreased flow velocity from diffuse cardiac congestion. Significant cardiomegaly with vascular congestion and prominent bilateral pleural effusions. Bilateral lower lobe atelectasis versus residual infiltrates with lingular atelectasis. -- Resume home diuretics as able Monitor volume status Cardiology on board Chronic hypotension Continue midodrine H/O Multiple myeloma S/P Chemotherapy Follows with oncology as outpatient Prediabetes HbA1c 6.0 Suspected subclinical hypothyroidism Elevated TSH, normal T4 We will need to repeat thyroid function test as outpatient Chronic troponin elevation Likely due to volume overload Less likely ACS Fibromatous uterus Incidental finding on CT Will need to follow-up with [facility] as outpatient DVT Px: Heparin SQ Code Status Full code Admission and Anticipated Discharge Date Admission Date: January 07, 2023 Subjective Patient is seen and examined at bedside States having abdominal pain this morning Denies any chest pain, dyspnea, dizziness, nausea, vomiting Also reports dry mouth No other complaints Review of Systems Review of Systems: All systems reviewed & are unremarkable except as noted in Subjective Physical Exam Physical Exam: Physical Exam: Vitals signs as noted above General Appearance:Moderately built and nourished, no apparent distress Head: normocephalic, Atraumatic Eyes: normal inspection, EOMI Neck: supple, Trachea midline Respiratory/Chest: Decreased breath sounds at bases, CTA, No accessory muscle use Cardiovascular: S1, S2, No murmur,+Bradycardia Abdomen/GI:Soft, Mild RUQ tender, Bowel sounds present Extremities/Musculoskeletal:normal inspection, no edema Neurologic/Psych:AAOX3, grossly no focal neurological deficits Skin: normal color, warm Results & Data Results & Data Vital Signs (Past 12 Hours) Vital Signs Temp Pulse Resp BP Pulse Ox O2 Del Method 01/08/23 08:15 Room Air 01/08/23 11:02 36.5 C 57 L 18 93/58 L 93 Room Air 01/08/23 08:33 36.6 C 59 L 18 107/62 92 Room Air 01/08/23 07:23 36.4 C 73 16 101/58 L 96 Room Air Laboratory Results Short CBC 01/07/23 01/08/23 Range/Units 17:28 06:49 WBC 6.32 2.98 L (4.8-10.8) K/ul Hgb 13.1 12.3 (12.0-16.0) g/dl Hct 40.1 38.8 (37.0-47.0) % Plt Count 150 110 L (130-400) K/uL BMP 01/07/23 01/08/23 17:28 06:49 Sodium 138 138 Potassium 3.5 3.5 Chloride 102 105 Carbon Dioxide 26 27 BUN 20 22 Creatinine 0.72 0.61 Glucose 171 H 86 Calcium 9.3 8.8 Liver Function 01/07/23 01/08/23 Range/Units 17:28 06:49 Total Bilirubin 1.2 H 2.2 H D (0.2-1.0) mg/dl Direct Bilirubin 0.4 H (0-0.2) mg/dl AST 40 H 173 H (13-39) U/L ALT 17 87 H (7-52) U/L Alkaline Phosphatase 110 H 142 H (34-104) U/L Albumin 3.6 3.5 (3.4-5.0) gm/dl Urine 01/08/23 Range/Units 02:26 Urine Color Yellow Urine Appearance Clear (Clear) Urine pH 5.5 (4.5-7.5) Ur Specific [place] > 1.045 H (1.000-1.030) Urine Protein 1+ H (Negative) Urine Glucose (UA) Negative (Negative)
--- NOTE | 2023-01-08 16:32 | Electrocardiogram Report ---
Test Reason : Blood Pressure : / mmHG Vent. Rate : 083 BPM Atrial Rate : 083 BPM P-R Int : 000 ms QRS Dur : 100 ms QT Int : 378 ms P-R-T Axes : 000 081 -41 degrees QTc Int : 444 ms Sinus rhythm with frequent Premature atrial complexes Low voltage QRS Nonspecific T wave abnormality Abnormal ECG When compared with ECG of 07-JAN-2023 17:20, (unconfirmed) Criteria for Septal infarct are no longer Present Nonspecific T wave abnormality has replaced inverted T waves in Lateral leads Confirmed by Todd Mcwilliams ([id number]) on 01/08/2023 4:32:31 PM Referred By: REFERRED SELF Confirmed By:Todd Mcwilliams
[2023-01-08 17:13] LABS: Partial Thromboplastin Ratio 1.4; Partial Thromboplastin Time 39.6 Seconds (21.0-31.0)
[2023-01-08] MEDS: MIDODRINE HCL 2.5 MG TAB PO SCH (18:17)
[2023-01-08] MEDS: CYANOCOBALAMIN (B-12) 500 MCG TABLET PO SCH (18:17)
[2023-01-08] MEDS: ASPIRIN 81 MG ECTAB PO SCH (18:44)
[2023-01-08] MEDS: DOCUSATE SODIUM 100 MG CAP PO PRN (20:56)
[2023-01-08] MEDS: HEPARIN SOD 5,000 UNIT/0.5 ML VIAL SQ SCH (20:56)
[2023-01-09 06:36] LABS: Hematocrit (blood only) 42.6 % (37.0-47.0); Hemoglobin 13.5 g/dl (12.0-16.0); Mean Corpuscular Hemoglobin 29.7 pg (25.0-34.0); Mean Corpuscular Hgb Conc 31.7 g/dL (32.0-36.0); Mean Corpuscular Volume 93.6 fL (80.0-100.0); Mean Platelet Volume 12.2 fL (9.4-12.4); Platelet Count 126 K/uL (130-400); RDW Coefficient of Variation 16.7 % (11.5-14.5); RDW Standard Deviation 56.1 fL (36.4-46.3); Red Blood Count 4.55 M/uL (4.20-5.40); White Blood Count 2.98 K/ul (4.8-10.8)
[2023-01-09 07:09] LABS: Albumin Globulin Ratio 0.8 (0.9-2); Albumin Level 3.5 gm/dl (3.4-5.0); BUN Creatinine Ratio 24.6 (10-20); Bilirubin,Total 2.9 mg/dl (0.2-1.0); Calcium 9.3 mg/dl (8.6-10.3); Creatinine Clr Calc Pharmacy 68.3 ml/min; Est GFR (African American) 102.1 ml/min; Est GFR (Non-African American) 88.1 ml/min; Globulin 4.3 gm/dl (2.5-4.0); Magnesium 2.2 mg/dl (1.7-2.4); Potassium 3.9 mmol/L (3.5-5.1); Total Protein 7.8 gm/dl (6.0-8.3)
[2023-01-09 07:18] LABS: Troponin I High Sensitivity 83.1 pg/ml (0-14)
--- NOTE | 2023-01-09 07:50 | Cardiology Progress Note ---
Date of Service January 09, 2023 Assessment & Plan (1) Paroxysmal atrial fibrillation: (2) Cardiac amyloidosis: (3) Chronic heart failure with preserved ejection fraction (HFpEF): (4) Sinus arrhythmia: (5) Abdominal pain: Plan IMPRESSION: Medically complex with PMH as stated below. Cardiac history notable for cardiac amyloidosis and chronic HFpEF. Admitted for abdominal discomfort and currently being worked up for cholecystis-- HIDA scan negative, plans for MRCP this afternoon. Telemetry revealing SR/SA with rates in the 50-60s. AFIB noted on telemetry over night, elevated rates- mildly symptomatic. PLAN: HFpEF/Cardiac Amyloid: Well compensated from a cardiac standpoint. Caution use of IV hydration in the setting of chronic diastolic CHF. Furosemide on hold pending GI review. PAF: Tele and EKGs with evidence of SB/SA with PACs, PAF now seen over night with elevated rates. Continue IV heparin for stroke prevention-- consider transitioning to DOAC, possibly Eliquis 5 mg BID-- will defer to primary team on starting given current GI workup in progress. No AVN blocking agents indicated at this time due to slow resting heart rate. Patient rates are tachycardic with PAF, should medications be needed to control PAF may need to consider permanent pacemaker at that time. Recommend obtaining nocturnal pulse oximetry Abdominal pain: HIDA scan negative for acute cholecystitis--we will defer to primary team for further work-up Discussed with Dr. Hernandez-- will follow. Admission and Anticipated Discharge Date Admission Date: January 07, 2023 Supervising Physician Co-Signing Physician Notes Patient seen and examined, chart, medications, telemetry reviewed. Once again episodes of tachyarrhythmia last evening this time more consistent with atrial fibrillation versus SVT Discussed with patient. Resting bradycardia precludes significant medical therapies to prevent Oxygen saturations would fall this evening assess for nocturnal hypoxia If recurrent episodes do occur may need to consider pacemaker insertion to allow rate control therapies. Amyloid cardiac involvement limits medical usage with poor tolerance due to bradycardia arrhythmias and heart failure. No signs of heart failure on exam currently. GI and surgical evaluation in process Subjective Medically complex 77-year-old female with past medical history of cardiac amyloid with severe diastolic heart failure and multiple myeloma. Initially presented to [facility] emergency department due to abdominal bloating and pain. Underwent HIDA scan yesterday without evidence of acute cholecystitis. Cardiology consulted for possible atrial fibrillation on telemetry however upon review telemetry and EKGs revealed sinus rhythm with atrial ectopy and no evidence of atrial fibrillation. 01/09: Tele: SR/SB with short episodes of PAF rates 110-130s yesterday. Yesterday was having short episode of chest discomfort which did correlate with the episodes of PAF as well as meals. Currently CP free. No shortness of breath. No lightheadedness or dizziness. No orthopnea, PND or lower extremity edema. Plans for MRCP today with GI. Review of Systems Review of Systems: All systems reviewed & are unremarkable except as noted in HPI & below Physical Exam Constitutional: WD/WN, vitals as above no acute distress ENMT: external ear and nose normal, oropharynx normal Neck: normal visual inspection and trachea midline Respiratory: normal respiratory effort, lungs clear to auscultation Cardiovascular: RRR, no murmur, no edema Rate/Rhythm: regular rate and regular rhythm Heart Sounds: normal S1, normal S2 and + murmur Vessels: no JVD Extremities: no edema Gastrointestinal (Abdomen): Inspection/Auscultation: abdomen normal to inspection and normal bowel sounds; abdomen not distended Percussion/Palpation: + abdomen tender and abdomen soft Musculoskeletal: no cyanosis or clubbing, extremities motor strength 5/5 Skin: no rashes, warm and dry Psychiatric: A+Ox3, euthymic affect Results & Data Vital Signs (Past 12 Hours) Vital Signs Temp Pulse Resp BP Pulse Ox O2 Del Method 01/09/23 04:00 36.6 C 54 L 16 95/55 L 92 Room Air 01/09/23 00:21 36.6 C 53 L 18 94/49 L 93 Room Air 01/08/23 20:03 37 C 52 L 14 103/62 91 Room Air Laboratory Results Cardiac Enzymes 01/08/23 01/08/23 01/09/23 Range/Units 19:15 23:49 05:48 AST 140 H (13-39) U/L Troponin I High Sens 79.0 H* D 85.9 H* 83.1 H* (0-14) pg/ml Coagulation 01/08/23 Range/Units 16:18 APTT 39.6 H (21.0-31.0) Seconds CBC 01/09/23 Range/Units 05:48 WBC 2.98 L (4.8-10.8) K/ul RBC 4.55 (4.20-5.40) M/uL Hgb 13.5 (12.0-16.0) g/dl Hct 42.6 (37.0-47.0) % Plt Count 126 L (130-400) K/uL Comprehensive Metabolic Panel 01/09/23 Range/Units 05:48 Sodium 138 (136-145) mmol/L Potassium 3.9 (3.5-5.1) mmol/L Chloride 105 (98-107) mmol/L Carbon Dioxide 26 (21-32) mmol/L BUN 15 (6-23) mg/dl Creatinine 0.61 (0.6-1.2) mg/dl Glucose 87 (70-99(Fasting)) mg/dl Calcium 9.3 (8.6-10.3) mg/dl AST 140 H (13-39) U/L ALT 97 H (7-52) U/L Alkaline Phosphatase 185 H (34-104) U/L Total Protein 7.8 (6.0-8.3) gm/dl Albumin 3.5 (3.4-5.0) gm/dl Intake and Output 01/08/23 01/09/23 01/09/23 22:59 06:59 14:59 Intake Total 127.633 / 581.816 240 / 581.816 Balance 127.633 / 581.816 240 / 581.816 Intake: IV 127.633 / 241.816 Heparin Sodium/Dextrose 25,000 127.633 / 241.816 units In 500 ml @ 700 UNITS/HR 14 mls/hr IV .Q24H [facility] Rx#: [id number] Oral 240 / 340 Other: # Unmeasured Voids 1 Weight 62.7 kg Weight Measurement Method Standing Scale
[2023-01-09] MEDS: MIDODRINE HCL 2.5 MG TAB PO SCH ×3 (08:59→19:34)
[2023-01-09] MEDS: ASPIRIN 81 MG ECTAB PO SCH (08:59)
[2023-01-09] MEDS: CYANOCOBALAMIN (B-12) 500 MCG TABLET PO SCH (08:59)
--- NOTE | 2023-01-09 09:12 | Surgery Progress Note ---
Date of Service January 09, 2023 Assessment & Plan (1) Gallstones: Plan: Patient admitted here with abdominal pain, found to have cholelithiasis without obvious evidence of acute lovely Today she is feeling well no abd pain/n/v. Does report some bloating feelings. h as been on fulls without issues Labs reveal WBC 2.9, Tb up to 2.9(2.2), AST 140, ALT 97, Alkp 185 HIDA scan was obtained yesterday that did not reveal evidence of acute lovely, however there is delayed activity in the CBD which could be related to spasm, sphincter dysfunction, or partial CBD obstruction GI has been consulted to weigh in given LFT elevation and findings on HIDA scan We will follow along, but no plans for lap lovely at this time Admission and Anticipated Discharge Date Admission Date: January 07, 2023 Supervising Physician Co-Signing Physician Notes I personally saw and evaluated the patient with Carie Lowry PA-C and agree with the assessment and plan. 77-year-old female with gallstones Her HIDA images and results were personally viewed by myself, no evidence of cholecystitis however she did have concern for common duct obstruction and her LFTs are elevated We will consult GI for evaluation, and MRCP has been ordered we will follow-up the results With all of her medical comorbidities, she is not likely a candidate for cholecystectomy however there is no need for immediate cholecystectomy at this time If MRCP is positive, she can follow-up as an outpatient to further discuss whether cholecystectomy would be the right option Surgery will sign off at this time, please call with any questions or concerns Subjective Patient is feeling okay today. Denies much in way of abdominal pain and no nausea/vomiting. Reports some heart palpitations. Physical Exam Physical Exam: awake/alert, no distress Respiratory: normal respiratory effort Gastrointestinal (Abdomen): Inspection/Auscultation: + abdomen distended (mild) Percussion/Palpation: abdomen soft; abdomen nontender Results & Data Vital Signs (Past 12 Hours) Vital Signs Temp Pulse Resp BP Pulse Ox O2 Del Method 01/09/23 08:11 36.5 C 56 L 18 101/55 L 95 Room Air 01/09/23 04:00 36.6 C 54 L 16 95/55 L 92 Room Air 01/09/23 00:21 36.6 C 53 L 18 94/49 L 93 Room Air PG Care Time/CCT Total # of Minutes Spent Total Time Spent with Patient: Total time spent is greater than 50% in coordination of care (as documented) at patient's floor/unit and/or counseling patient: Coding Level of Care Code 96583 SUB INP/OBS CARE /25MIN Diagnoses Gallstones K80.20
--- NOTE | 2023-01-09 09:14 | Gastrointestinal Consultation ---
Date of Consultation January 09, 2023 Assessment & Plan (1) Abdominal pain: (2) Elevated LFTs: Plan Ms. Hogue is a medically complex patient. Possible causes for abd bloating include gastroparesis, GERD, symptomatic hiatal hernia, small bowel bacterial overgrowth, gallbladder hypokinesia, chronic cholecystitis. Possible causes for elevated LFTs includes choledocholithiasis or other bile duct abnormalities, congestive hepatopathy, mild shock liver, and liver lesion (LIRADs 3 lesion liver mass was questioned on recent OP CT). - MRCP to better evaluate the bile ducts. - further recommendations to follow MRCP. Supervising Physician Co-Signing Physician Notes Attg add: I interviewed and examined pt, reviewed chart and labs. Pt with episodes of bloating after eating fatty foods, increased LFT's, HIDA which shows lack of SB tracer. Plan MRCP, and consider EUS/ERCP pending results. History of Present Illness Reason for Consultation: abnormal LFTs Requesting Physician: Aditya Cedeno PA-C Attending Physician: Ward Cortes MD History of Present Illness Ms. Anel Hogue is a 77 yr old female pt of Dr. Rosendo Boyce w a hx of multiple myeloma S/P chemo, cardiac amyloidosis, valvular heart dx (mild MR/severe TR), Hypotension on midodrine, Pulm HTN, CHF admitted in fluid overload w new onset A-fib (though seen by cardiology who documented "no A- fib"). GI is consulted for elevated LFTs: T Bili 2.9, AST 140, ALT 87, Alk Phos 185. When talking w her, she tells me that the reason she came to the ED is because she has had post prandial fullness/bloating, upper abdomen pain after eating fatty foods for the past few months and had this type of pain that was severe yesterday. She feels a bit better today, is up and around walking in the room. She denies a pattern of severe RUQ pain after eating high fat foods. No yellow eyes/skin or fevers. Though she is on midodrine for chronic hypotension, she denies any recent feeling of faintness/near syncope and her lowest BP here was 93/58 - not particularly low for her. Since arrival, US w gallstones, mild pericholecystic fluid, mildly dilated CBD at 8mm. CT w mild constipation, multiple gallstones but normal bile ducts and pancreas.HIDA w w/o acute cholecystitis. She has a hx of a mildly elevated LFTs since 2017 and is being worked up for abdominal fullness/bloating. She has a hx of a large HH w bleeding ulcer on EGD in 2021. Last month, she underwent liver protocol CT w an 11mm left hepatic lobe lesion possible LIRADs 3, gallbladder stones, mild gallbladder wall edema, mild CBD dilation w/o definite choledocholithiasis and bilat pleural effusions. Allergies Allergy/AdvReac Type Severity Reaction Status Date / Time No Known Allergies Allergy Unknown ` Verified 11/22/22 13:05 Home Medications Medication Instructions Recorded Confirmed Type cyanocobalamin (vitamin B-12) 1,000 mcg PO QAM 05/14/21 01/07/23 History 1,000 mcg tablet (Vitamin B-12) potassium chloride 20 mEq 20 meq PO QAM 11/22/22 01/07/23 History tablet,extended release(part/cryst) sucralfate 100 mg/mL oral 10 ml PO QID PRN Gi Upset 11/22/22 01/07/23 History suspension aspirin 81 mg tablet,delayed 81 mg PO QAM 01/07/23 01/07/23 History release furosemide 40 mg tablet 40 mg PO UD 01/07/23 01/07/23 History midodrine 5 mg tablet 5 mg PO QAM 01/07/23 01/07/23 History Patient History Medical History Acute combined systolic and diastolic CHF, NYHA class 3 Acute on chronic diastolic (congestive) heart failure Cardiac amyloidosis Chronic diastolic heart failure Elevated troponin GI bleed Multiple myeloma Nausea & vomiting Surgical History History of colonoscopy History of tubal ligation Family History Father , 50s Stroke Mother , 90 Coronary heart disease Social History Smoking Status: Never smoker Second Hand Exposure: No; Do You Dip or Chew Tobacco: No; Hx Alcohol Use: No Hx Substance Use: No Preferred Language: Citizen [place] 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: Effective 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 Firearms Required: No Beliefs That Will Affect Care: None marital status: Current Living Situation: Spouse Current Living Situation Comment: with Other Information That Helps Us Care for You: No Feels Safe at Home: Yes Safety Concerns: Feels Safe At This Time Assistive Devices: Glasses, Raised Toilet Seat and Walker Review of Systems Review of Systems: ROS: Gen: Denies weakness, fevers, weight loss Eyes: No eye redness, or pain, no recent vision changes Resp: No SOB, no cough Cardio: No palpitations/irregular beats, no chest pain GI: No abdominal pain, no nausea/vomiting : Denies pain on urination Skin: No jaundice, itching or new rashes Physical Exam Constitutional: WD/WN, vitals as above Eyes: PERRL, conjunctivae normal, anicteric sclerae ENMT: external ear and nose normal, oropharynx normal Neck: trachea midline, no thyromegaly Respiratory: normal respiratory effort, lungs clear to auscultation Cardiovascular: 3/6 systolic murmur; regular rate/rhythm Gastrointestinal (Abdomen): mild abd distention, normal BS, no masses, mildly tender throughout Skin: no rashes, warm and dry Psychiatric: A+Ox3, euthymic affect Lymphatic: no cervical or axillary lymphadenopathy Results & Data Vital Signs (Past 12 Hours) Vital Signs Temp Pulse Resp BP Pulse Ox O2 Del Method 01/09/23 08:11 36.5 C 56 L 18 101/55 L 95 Room Air 01/09/23 04:00 36.6 C 54 L 16 95/55 L 92 Room Air 01/09/23 00:21 36.6 C 53 L 18 94/49 L 93 Room Air Laboratory Results WBC 29, Hb 13, Hct 42, Plts 126, Na 138, K 3.9, CL 105, CO2 26, BUN 15, Cr 0.6, glucose 87. T Bili 2.9, AST 140, ALT 97, Alk Phos 185 Diagnostic Findings GB US 01/07/23: 1. Right-sided pleural effusion with fluid within Morison's pouch. Multiple gallstones with mild pericholecystic fluid and borderline thickening of the wall, cannot exclude acute cholecystitis although findings are nonspecific in the context of fluid overload. If indicated, recommend follow-up with HIDA scan for further evaluation. 2. Borderline prominence of the common bile duct as described, remainder of the right upper quadrant ultrasound unremarkable. HIDA 10/11/23: 1. No evidence for acute cholecystitis. 2. Delayed visualization of activity within the common bile duct and nonvisualization of small bowel activity. These findings are nonspecific and differential considerations include sphincter dysfunction, spasm or partial common bile duct obstruction. Findings could be correlated with liver function tests. CTAP w IV 01/07/23: 1. Significant cardiomegaly with large bilateral pleural effusions and lower lobe atelectasis. 2. Large hiatal hernia with a significant portion of the stomach above the hemidiaphragm. 3. 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 Borderline splenomegaly. Multiple tiny gallstones. Mild ascites. 4. Mild constipation. Diverticulosis with no signs of diverticulitis. No acute appendicitis or bowel obstruction. 5. Fibromatous uterus otherwise incompletely characterized. If indicated, this can be further assessed with MRI or ultrasound of the pelvis in nonacute setting. OP Liver protocol CT on 12/16/22: 1. An 11 millimeter enhancing absence present in left hepatic lobe. If the patient is at high risk for HCC then this would be classified as LR-3. If the patient is not at high risk for HCC then differential consideration would include vascular shunt and focal nodular hyperplasia. The wedge-shaped enhancing observation in the right hepatic lobe favors a vascular shunt. 2. Cholelithiasis. Mild edema in the gallbladder wall. Clinical correlation is recommended to exclude acute cholecystitis. Mild dilatation of the common bile duct without definite choledocholithiasis. 3. A small 3 millimeter low-density lesion is present in the head of the pancreas which is too small to characterize. Otherwise there is no abnormal dilatation of the main pancreatic duct or abnormal pancreatic enhancement. 4. Consideration should be given to further assessment with an MRI of the abdomen without and with contrast with MRCP. 5. Atrophy of the medial segment of the left hepatic lobe, a finding associated with chronic liver disease. 6. Mild splenomegaly. 7. Bilateral pleural effusions with subjacent consolidation which could be related to atelectasis or pneumonia. Cardiomegaly. Correlate clinically to exclude an underlying component of congestive heart failure. 8. Additional findings and details as above.
--- NOTE | 2023-01-09 12:21 | Electrocardiogram Report ---
Test Reason : Blood Pressure : / mmHG Vent. Rate : 090 BPM Atrial Rate : 090 BPM P-R Int : 000 ms QRS Dur : 090 ms QT Int : 362 ms P-R-T Axes : 000 -35 211 degrees QTc Int : 442 ms Sinus rhythm with frequent Premature atrial complexes Left axis deviation Low voltage QRS Nonspecific ST and T wave abnormality Abnormal ECG When compared with ECG of 08-JAN-2023 10:28, QRS axis Shifted left Confirmed by Todd Mcwilliams ([id number]) on 01/09/2023 12:20:39 PM Referred By: REFERRED SELF Confirmed By:Todd Mcwilliams
--- NOTE | 2023-01-09 12:37 | Electrocardiogram Report ---
Test Reason : Blood Pressure : / mmHG Vent. Rate : 055 BPM Atrial Rate : 535 BPM P-R Int : 000 ms QRS Dur : 092 ms QT Int : 450 ms P-R-T Axes : 000 084 217 degrees QTc Int : 430 ms Sinus bradycardia Low voltage QRS Septal infarct , age undetermined Abnormal ECG When compared with ECG of 08-JAN-2023 17:54, (unconfirmed) QRS axis Shifted right Septal infarct is now Present ST no longer depressed in Anterior leads Confirmed by Todd Mcwilliams ([id number]) on 01/09/2023 12:37:00 PM Referred By: REFERRED SELF Confirmed By:Todd Mcwilliams
[2023-01-09] MEDS: HEPARIN SOD 5,000 UNIT/0.5 ML VIAL SQ SCH ×2 (13:19→19:34)
[2023-01-09] MEDS ORDERED: MIDODRINE HCL 2.5 MG TAB PO SCH (14:00)
--- NOTE | 2023-01-09 16:20 | Magnetic Resonance Report ---
MRCP CLINICAL HISTORY: Elevated hepatic transaminases. Gallstones. COMPARISON STUDY: Abdominal CT dated 01/07/2023. Abdominal ultrasound dated 01/07/2023. Nuclear hepat obiliary scan dated 01/08/2023. TECHNIQUE: Abdominal MRCP is performed utilizing various T2-weighted sequences in the axial and coron al planes. 3-D reformats are created and assessed. Diffusion-weighted imaging was also performed. IV contrast was not administered for this examination. FINDINGS: The gallbladder is mildly distended and contains numerous stones. The gallbladder wall is mildly thic kened and edematous. There is no intrahepatic biliary ductal dilatation. The common bile duct is dila ab, measuring up to 9 mm in diameter. There are several gallstones of the distal common bile duct me asuring up to 3 mm. These are best seen on coronal MRCP image #[id number]. The pancreatic duct is norm al in caliber. The liver is enlarged and heterogeneous in signal intensity, measuring 19.5 cm in length. The spleen is enlarged, measuring 14 cm in length. The unenhanced adrenal glands, kidneys, and pancreas are nikolas sly normal. There is a small volume of upper abdominal ascites. The abdominal aorta is normal in rito dat. No bowel obstruction is seen. There are moderate pleural effusions. The heart is enlarged noting a small pericardial effusion. IMPRESSION: 1. Cholelithiasis with a mildly distended and thick-walled gallbladder. Given the normal hepatobiliar y scan acute cholecystitis is considered unlikely, and this is likely related to adjacent hepatocellu lar disease/ascites. 2. There is dilatation of the common bile duct with choledocholithiasis. 3. Enlarged heterogeneous liver. 4. Splenomegaly. 5. Moderate pleural effusions. 6. Abdominal ascites. Dictated: 01/09/2023 2:15 PM Transcribed: 01/09/2023 3:04 PM Lucie [id number] ATILIO_Sulaiman [id number] Electronically signed by: Kashif Rios M.D. 01/09/2023 4:18 PM
--- NOTE | 2023-01-09 16:50 | Hospitalist Progress Note ---
Date of Service January 09, 2023 Assessment & Plan (1) Abdominal pain: Plan: Abdominal Pain Cholelithiasis, ?Biliary Colic Transaminitis Abd Pain likely multifactorial:Hiatal hernia, hepatomegaly, symptomatic gallstones, constipation ? 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 Multiple tiny gallstones. Mild ascites. Mild constipation. Diverticulosis with no signs of diverticulitis.No acute appendicitis or bowel obstruction. Fibromatous uterus otherwise incompletely characterized. If indicated, this can be further assessed with MRI or ultrasound of the pelvis in nonacute setting. --Gall Bladder USD:Right-sided pleural effusion with fluid within Morison's pouch.Multiple gallstones with mild pericholecystic fluid and borderline thickening of the wall, cannot exclude acute cholecystitis although findings are nonspecific in the context of fluid overload. If indicated, recommend follow-up with HIDA scan for further evaluation. Borderline prominence of the common bile duct as described, remainder of the right upper quadrant ultrasound unremarkable. --HIDA:No evidence for acute cholecystitis. Delayed visualization of activity within the common bile duct and nonvisualization of small bowel activity. These findings are nonspecific and differential considerations include sphincter dysfunction, spasm or partial common bile duct obstruction. Findings could be correlated with liver function tests. --MRCP:Cholelithiasis with a mildly distended and thick-walled gallbladder. Given the normal hepatobiliary scan acute cholecystitis is considered unlikely, and this is likely related to adjacent hepatocellular disease/ascites.There is dilatation of the common bile duct with choledocholithiasis. Enlarged heterogeneous liver. Splenomegaly. Moderate pleural effusions. Abdominal ascites. --Continue Carafate Bowel regimen to prevent constipation Surgery and GI on board LFTs trending up Liquid diet for now N.p.o. after midnight ? Need for ERCP Abnormal UA: Urine Cx: Mixed probable skin adi Patient denies any dysuria, hematuria, increased urine frequency Paroxysmal atrial fibrillation Sinus arrhythmia Chronic hypotension H/O cardiac amyloidosis H/O NSVT Monitor on telemetry Replete electrolytes as needed Appreciate cardiology input We will check nocturnal oximetry study As patient has cardiac amyloidosis, medication use is limited with poor tolerance due to bradycardia Chronic diastolic heart failure Valvular heart disease Pulmonary hypertension Bilateral pleural effusion --ECHO 11/22/22: Left ventricle cavity is small. Severe concentric LVH. EF 60 to 65%. Mild mitral regurgitation. Severe tricuspid regurgitation. Estimated systolic pulmonary pressure is 43 mmHg. Dilated IVC with normal respiratory variation suggestive of right atrial pressure of 8 mmHg. Grade 3 diastolic dysfunction. --CTA:No distinct pulmonary embolus with suboptimally opacified mid distal branches of the left lower lobe pulmonary arteries in a homogeneous pattern, likely related to decreased flow velocity from diffuse cardiac congestion. Significant cardiomegaly with vascular congestion and prominent bilateral pleural effusions. Bilateral lower lobe atelectasis versus residual infiltrates with lingular atelectasis. -- Resume home diuretics as able Monitor volume status Cardiology on board Chronic hypotension Continue midodrine--increased to 2.5 mg 3 times daily H/O Multiple myeloma S/P Chemotherapy Follows with oncology as outpatient Prediabetes HbA1c 6.0 Suspected subclinical hypothyroidism Elevated TSH, normal T4 We will need to repeat thyroid function test as outpatient Chronic troponin elevation Likely due to volume overload Less likely ACS Fibromatous uterus Incidental finding on CT Will need to follow-up with [facility] as outpatient DVT Px: Heparin SQ Code Status Full code Admission and Anticipated Discharge Date Admission Date: January 07, 2023 Subjective Patient is seen and examined at bedside States feeling better this morning Abdominal pain much improved Had small bowel movement this morning Reports having palpitations overnight Discussed with cardiology today Denies any chest pain, dyspnea, dizziness, nausea, vomiting Review of Systems Review of Systems: All systems reviewed & are unremarkable except as noted in Subjective Physical Exam Physical Exam: Physical Exam: Vitals signs as noted above General Appearance:Moderately built and nourished, no apparent distress Head: normocephalic, Atraumatic Eyes: normal inspection, EOMI Neck: supple, Trachea midline Respiratory/Chest: Decreased breath sounds at bases, CTA, No accessory muscle use Cardiovascular: S1, S2, No murmur Abdomen/GI:Soft, Mild RUQ tender, Bowel sounds present Extremities/Musculoskeletal:normal inspection, no edema Neurologic/Psych:AAOX3, grossly no focal neurological deficits Skin: normal color, warm Results & Data Results & Data Vital Signs (Past 12 Hours) Vital Signs Temp Pulse Resp BP Pulse Ox O2 Del Method 01/09/23 16:06 36.6 C 63 18 130/81 95 Room Air 01/09/23 12:18 36.5 C 53 L 17 112/62 94 Room Air 01/09/23 08:11 36.5 C 56 L 18 101/55 L 95 Room Air Laboratory Results Short CBC 01/09/23 Range/Units 05:48 WBC 2.98 L (4.8-10.8) K/ul Hgb 13.5 (12.0-16.0) g/dl Hct 42.6 (37.0-47.0) % Plt Count 126 L (130-400) K/uL BMP 01/09/23 05:48 Sodium 138 Potassium 3.9 Chloride 105 Carbon Dioxide 26 BUN 15 Creatinine 0.61 Glucose 87 Calcium 9.3 Liver Function 01/09/23 Range/Units 05:48 Total Bilirubin 2.9 H (0.2-1.0) mg/dl AST 140 H (13-39) U/L ALT 97 H (7-52) U/L Alkaline Phosphatase 185 H (34-104) U/L Albumin 3.5 (3.4-5.0) gm/dl
[2023-01-09] MEDS ORDERED: bisacodyL 10 MG SUPP PR PRN (16:56)
[2023-01-09] MEDS: MoRPHine SULFATE 2 MG/ML CARP IV PRN (17:05)
[2023-01-09] MEDS: DOCUSATE SODIUM 100 MG CAP PO PRN (19:34)
[2023-01-09] MEDS ORDERED: DOCUSATE SODIUM/SENNA 50/8.6MG TAB PO STA (20:20)
[2023-01-09] MEDS: ACETAMINOPHEN 500 MG TAB PO PRN (23:38)
[2023-01-10] MEDS: MIDODRINE HCL 2.5 MG TAB PO SCH ×3 (05:57→19:34)
[2023-01-10] MEDS: ASPIRIN 81 MG ECTAB PO SCH (09:14)
[2023-01-10] MEDS: CYANOCOBALAMIN (B-12) 500 MCG TABLET PO SCH (09:14)
[2023-01-10 10:04] LABS: Hematocrit (blood only) 38.8 % (37.0-47.0); Hemoglobin 12.4 g/dl (12.0-16.0); Mean Corpuscular Hemoglobin 29.5 pg (25.0-34.0); Mean Corpuscular Volume 92.2 fL (80.0-100.0); Mean Platelet Volume 11.9 fL (9.4-12.4); Platelet Count 126 K/uL (130-400); RDW Coefficient of Variation 16.4 % (11.5-14.5); RDW Standard Deviation 54.6 fL (36.4-46.3); Red Blood Count 4.21 M/uL (4.20-5.40); White Blood Count 3.94 K/ul (4.8-10.8)
[2023-01-10 10:26] LABS: Albumin Globulin Ratio 0.8 (0.9-2); Albumin Level 3.5 gm/dl (3.4-5.0); BUN Creatinine Ratio 19.4 (10-20); Bilirubin,Total 3.2 mg/dl (0.2-1.0); Calcium 9.4 mg/dl (8.6-10.3); Creatinine Clr Calc Pharmacy 67.4 ml/min; Est GFR (African American) 101.5 ml/min; Est GFR (Non-African American) 87.6 ml/min; Globulin 4.2 gm/dl (2.5-4.0); Magnesium 2.1 mg/dl (1.7-2.4); Total Protein 7.7 gm/dl (6.0-8.3)
--- NOTE | 2023-01-10 12:00 | Cardiology Progress Note ---
Date of Service January 10, 2023 Assessment & Plan (1) Paroxysmal atrial fibrillation: (2) Cardiac amyloidosis: (3) Chronic heart failure with preserved ejection fraction (HFpEF): (4) Sinus arrhythmia: (5) Abdominal pain: Plan IMPRESSION: Medically complex with PMH as stated below. Cardiac history notable for cardiac amyloidosis and chronic HFpEF. Admitted for abdominal discomfort and currently being worked up for cholecystis-- HIDA scan negative, plans for MRCP this afternoon. Telemetry revealing SR/SA with rates in the 50-60s. AFIB noted on telemetry over night, elevated rates- mildly symptomatic. PLAN: HFpEF/Cardiac Amyloid: Well compensated from a cardiac standpoint. Caution use of IV hydration in the setting of chronic diastolic CHF. Furosemide on hold pending GI review. PAF: Tele and EKGs with evidence of SB/SA with PACs, PAF now seen over night with elevated rates. Continue IV heparin for stroke prevention-- consider transitioning to DOAC, possibly Eliquis 5 mg BID-- will defer to primary team on starting given current GI workup in progress. No AVN blocking agents indicated at this time due to slow resting heart rate. Patient rates are tachycardic with PAF, should medications be needed to control PAF may need to consider permanent pacemaker at that time. 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 Issues of concern are still present Patient resumed diet yesterday following HIDA scan on to have severe abdominal pain and cramping approximate 3 PM yesterday. No arrhythmias during event Last evening again transient atrial fibrillation with spontaneous conversion to sinus rhythm No acute complaints this morning but n.p.o. with planned ERCP later today No fevers or chills Review of Systems Review of Systems: All systems reviewed & are unremarkable except as noted in Subjective Physical Exam Constitutional: WD/WN, vitals as above no acute distress ENMT: external ear and nose normal, oropharynx normal Neck: normal visual inspection and trachea midline Respiratory: normal respiratory effort, lungs clear to auscultation Cardiovascular: RRR, no murmur, no edema Rate/Rhythm: regular rate and regular rhythm Heart Sounds: normal S1, normal S2 and + murmur Vessels: no JVD Extremities: no edema Gastrointestinal (Abdomen): Inspection/Auscultation: abdomen normal to inspection and normal bowel sounds; abdomen not distended Percussion/Palpation: + abdomen tender and abdomen soft Musculoskeletal: no cyanosis or clubbing, extremities motor strength 5/5 Skin: no rashes, warm and dry Psychiatric: A+Ox3, euthymic affect Results & Data Vital Signs (Past 12 Hours) Vital Signs Temp Pulse Pulse Resp BP Pulse Ox Pulse Ox 01/10/23 11:16 36.8 C 52 L 18 102/60 94 01/10/23 07:56 36.6 C 57 L 18 96/61 L 95 01/10/23 03:38 55 L 89 L 01/10/23 02:51 36.8 C 65 18 97/57 L 92 01/10/23 01:55 88 93 O2 Del Method O2 Del Method 01/10/23 11:16 Room Air 01/10/23 07:56 Room Air 01/10/23 03:38 Room Air 01/10/23 02:51 Room Air 01/10/23 01:55 Room Air Laboratory Results Laboratory Results - last 24 hr 01/10/23 01/10/23 09:37 09:37 WBC 3.94 L RBC 4.21 Hgb 12.4 Hct 38.8 MCV 92.2 MCH 29.5 MCHC 32.0 RDW Std Deviation 54.6 H RDW Coeff of Nasir 16.4 H Plt Count 126 L MPV 11.9 Sodium 136 Potassium 4.0 Chloride 104 Carbon Dioxide 25 Anion Gap 7 BUN 12 Creatinine 0.62 Est Cr Clr Drug Dosing 67.4 Est GFR ( Amer) 101.5 Est GFR (Non-Af Amer) 87.6 BUN/Creatinine Ratio 19.4 Glucose 83 Calcium 9.4 Magnesium 2.1 Total Bilirubin 3.2 H AST 104 H ALT 85 H Alkaline Phosphatase 191 H Total Protein 7.7 Albumin 3.5 Globulin 4.2 H Albumin/Globulin Ratio 0.8 L
--- NOTE | 2023-01-10 12:15 | Gastroenterology Progress Note ---
Date of Service January 10, 2023 Assessment & Plan (1) Abdominal pain: (2) Elevated LFTs: (3) Choledocholithiasis: Plan ERCP today by Dr. Gonzalez. Please keep NPO. Further recommendations to follow ERCP. Admission and Anticipated Discharge Date Admission Date: January 07, 2023 Supervising Physician Co-Signing Physician Notes I performed a history and physical examination of the patient today, including specifically on physical exam - soft abdomen. I have discussed the patient's management with the advanced practitioner. Please refer to the nurse practitioner's note for the documented findings and plan of care. ERCP today She is not a candidate for cholecystectomy per general surgery so will likely need EUS GB with [facility] as OP Patient was explained in detail regarding risks, benefits, limitations and alternatives of the above endoscopic procedure. Risks of intravenous sedation used for procedure were also explained. Risks include, but not limited to perforation, bleeding, infection, respiratory distress, cardiac arrest and . Patient is also aware about the possibility of missed lesion. Patient's questions were answered. The patient verbalized understanding the information and agreed to undergo the procedure. Subjective Seen in room today. Feeling well. Notes had upper abd pain across both sides, after eating a more substantial diet yesterday. NPO since midnight. Per pt/nurse, had an episode of A-fib w tachycardia today w HR to 130's. Pt felt the rapid HR but no pain, dizziness, nausea or other symptoms w the A-fib/RVR. Discussed by tiger text w Dr. Indra Hernandez who recommended going forward w ERCP today and was in touch w Dr. Melvin, anesthesia about pt. Review of Systems Review of Systems: ROS: Gen: Denies weakness, fevers, weight loss Eyes: No eye redness, or pain, no recent vision changes Resp: No SOB, no cough Cardio: No palpitations/irregular beats, no chest pain GI: Post prandial upper abd pain - currently no pain : Denies pain on urination Skin: No jaundice, itching or new rashes Physical Exam Constitutional: WD/WN, vitals as above Eyes: PERRL, conjunctivae normal, anicteric sclerae ENMT: external ear and nose normal, oropharynx normal Neck: trachea midline, no thyromegaly Respiratory: normal respiratory effort, lungs clear to auscultation Cardiovascular: 3/6 systolic murmur, regular rate/rhythm at the time of exam. Gastrointestinal (Abdomen): normal bowel sounds, soft, nontender, no hepatosplenomegaly (except minimal upper abd tenderness w deep palpation) Skin: no rashes, warm and dry Neurologic: PERRL, EOMI, accommodation nl, no face palsy, no dysarthria Psychiatric: A+Ox3, euthymic affect Lymphatic: no cervical or axillary lymphadenopathy Results & Data Vital Signs (Past 12 Hours) Vital Signs Temp Pulse Pulse Resp BP Pulse Ox Pulse Ox 01/10/23 11:16 36.8 C 52 L 18 102/60 94 01/10/23 07:56 36.6 C 57 L 18 96/61 L 95 01/10/23 03:38 55 L 89 L 01/10/23 02:51 36.8 C 65 18 97/57 L 92 01/10/23 01:55 88 93 O2 Del Method O2 Del Method 01/10/23 11:16 Room Air 01/10/23 07:56 Room Air 01/10/23 03:38 Room Air 01/10/23 02:51 Room Air 01/10/23 01:55 Room Air Diagnostic Findings MRCP yesterday: 1. Cholelithiasis with a mildly distended and thick-walled gallbladder. Given the normal hepatobiliary scan acute cholecystitis is considered unlikely, and this is likely related to adjacent hepatocellular disease/ascites. 2. There is dilatation of the common bile duct with choledocholithiasis. 3. Enlarged heterogeneous liver. 4. Splenomegaly. 5. Moderate pleural effusions. 6. Abdominal ascites.
--- NOTE | 2023-01-10 13:30 | Anesthesiology Consultation ---
Date of Service January 10, 2023 Assessment & Plan (1) Encounter for pre-operative examination: Chart Review Chart Review: Acceptable Risk for Surgery and Patient NOT seen in Pre Admission Testing Consults Requested none History Surgery Operation Date: 01/10/23 14:25 Proposed Procedures p Endoscopic Retrograde Cholangiopancreatogram - Hope Stuart MD Height/Weight Height: 5 ft 2 in Weight: 63.1 kg Allergies Allergy/AdvReac Type Severity Reaction Status Date / Time No Known Allergies Allergy Unknown ` Verified 11/22/22 13:05 Medications Home Medications Medication Instructions Recorded Confirmed Last Taken cyanocobalamin (vitamin B-12) 1,000 mcg PO QAM 05/14/21 01/07/23 01/07/23 1,000 mcg tablet (Vitamin B-12) potassium chloride 20 mEq 20 meq PO QAM 11/22/22 01/07/23 01/07/23 tablet,extended release(part/cryst) sucralfate 100 mg/mL oral 10 ml PO QID PRN Gi Upset 11/22/22 01/07/23 11/21/22 suspension aspirin 81 mg tablet,delayed 81 mg PO QAM 01/07/23 01/07/23 01/07/23 release furosemide 40 mg tablet 40 mg PO UD 01/07/23 01/07/23 Unknown midodrine 5 mg tablet 5 mg PO QAM 01/07/23 01/07/23 01/07/23 Active Medications Generic Name Dose Route Start Last Admin Trade Name Freq PRN Reason Stop Dose Admin Acetaminophen 500 mg 01/08/23 00:04 01/09/23 23:38 Acetaminophen 500 Mg Tab PO 02/07/23 00:03 500 mg Q6H PRN Administration fever/pain Aspirin 81 mg 01/08/23 09:00 01/10/23 09:14 Aspirin 81 Mg Ectab PO 02/07/23 08:59 81 mg QAM RYANN Administration Bisacodyl 10 mg 01/09/23 16:56 01/09/23 17:10 Bisacodyl 10 Mg Supp WV 02/08/23 16:55 10 mg DAILY PRN Administration Constipation Cyanocobalamin 1,000 mcg 01/08/23 09:00 01/10/23 09:14 Cyanocobalamin (B-12) 500 Mcg Tablet PO 02/07/23 08:59 1,000 mcg QAM RYANN Administration Docusate Sodium 100 mg 01/08/23 12:53 01/09/23 19:34 Docusate Sodium 100 Mg Cap PO 02/07/23 12:59 100 mg BID PRN Administration Constipation Heparin Sodium (Porcine) 5,000 units 01/08/23 21:00 01/09/23 19:34 Heparin Sod 5,000 Unit/0.5 Ml Vial SQ 02/07/23 20:59 5,000 units Q12 RYANN Administration Midodrine 2.5 mg 01/09/23 14:00 01/10/23 05:57 Midodrine Hcl 2.5 Mg Tab PO 02/08/23 13:59 2.5 mg DAILY@0700,1200,1800 RYANN Administration Morphine Sulfate 2 mg 01/08/23 00:04 01/09/23 17:05 Morphine Sulfate 2 Mg/Ml Carp IV 01/22/23 00:03 2 mg Q3H PRN Administration Pain Tramadol HCl 25 - 50 mg 01/08/23 00:04 01/08/23 01:21 Tramadol Hcl 50 Mg Tablet PO 02/07/23 00:03 25 mg Q4H PRN Administration Pain NPO Date Last Intake of Fluids: 01/09/23 Time Last Intake of Fluids: 16:00 Date Last Intake of Solids: 01/09/23 Time Last Intake of Solids: 15:30 Past Medical History Medical History Acute combined systolic and diastolic CHF, NYHA class 3 Acute on chronic diastolic (congestive) heart failure Cardiac amyloidosis Chronic diastolic heart failure Elevated troponin GI bleed Multiple myeloma Nausea & vomiting Past Family History Family History Father , 50s Stroke Mother , 90 Coronary heart disease Past Surgical History Surgical History History of colonoscopy History of tubal ligation Social History Smoking Status: Never smoker Do You Dip or Chew Tobacco: No Hx Alcohol Use: No Hx Substance Use: No substance use type: does not use Physical Exam Vital Signs Last Vital Signs Temp 97.9 F 01/10/23 13:23 Pulse 63 01/10/23 13:23 Resp 18 01/10/23 13:23 BP 119/64 10/13/23 13:23 Pulse Ox 93 01/10/23 13:23 O2 Del Method Room Air 01/10/23 13:23 Testing Laboratory Results 01/10/23 09:37 01/10/23 09:37 PT 11.9 Seconds (9.0-12.0) 01/07/23 17:28 INR 1.1 (0.9-1.1) 01/07/23 17:28 APTT 39.6 Seconds (21.0-31.0) H 01/08/23 16:18 Hemoglobin A1c 6.0 % (4.5-5.6) H 01/07/23 17:28 Urine Color Yellow 01/08/23 02:26 Urine Appearance Clear (Clear) 01/08/23 02:26 Urine pH 5.5 (4.5-7.5) 01/08/23 02:26 Ur Specific [place] > 1.045 (1.000-1.030) H 01/08/23 02:26 Urine Protein 1+ (Negative) H 01/08/23 02:26 Urine Glucose (UA) Negative (Negative) 01/08/23 02:26 Urine Ketones Negative (Negative) 01/08/23 02:26 Urine Nitrite Negative (Negative) 01/08/23 02:26 Ur Leukocyte Esterase 1+ (Negative) H 01/08/23 02:26 Urine WBC (Auto) 10-30 /hpf (0-5) H 01/08/23 02:26 Urine RBC (Auto) 5-10 /hpf (0-4) H 01/08/23 02:26 U Hyaline Cast (Auto) 0 /lpf (0-5) 01/08/23 02:26 U Epithel Cells (Auto) >30 /lpf (0-5) H 01/08/23 02:26 Urine Bacteria (Auto) Negative (Negative) 01/08/23 02:26 01/08/23 02:26 Urine Culture - Final Urine,Clean Catch More than three types of organisms present, all moderate counts mixed probable skin adi. No further identifications or sensitivities to follow.
[2023-01-10] MEDS ORDERED: ePHEDrine sulfate 50 MG/ML AMP IV PRN (13:32)
[2023-01-10] MEDS: LACTATED RINGER'S 1,000 ML IV SCH (13:32)
[2023-01-10] MEDS ORDERED: fentaNYL citrate PF 100 MCG/2 ML VIAL IV PRN (13:32)
[2023-01-10] MEDS ORDERED: ONDANSETRON INJ 2 MG/ML 2 ML VIAL IV PRN (13:32)
[2023-01-10] MEDS ORDERED: ATROPINE SULFATE 0.1 MG/ML 10ML SYR IV PRN (13:32)
[2023-01-10] MEDS ORDERED: fentaNYL citrate PF 100 MCG/2 ML VIAL ONE (13:48)
[2023-01-10] MEDS ORDERED: PROPOFOL IV EMULSION 10 MG/ML 20 ML VIAL IV ONE (14:13)
[2023-01-10] MEDS ORDERED: GLYCOPYRROLATE 0.2 MG/ML VIAL ONE (14:13)
[2023-01-10] MEDS ORDERED: ONDANSETRON INJ 2 MG/ML 2 ML VIAL ONE (14:13)
[2023-01-10] MEDS ORDERED: ePHEDrine sulfate 50 MG/ML AMP ONE (14:14)
[2023-01-10] MEDS ORDERED: SODIUM CHLORIDE 0.9% PF INJ 10 ML VIAL ONE (14:14)
--- NOTE | 2023-01-10 14:21 | Operative Report ---
Post Operative Report Pre & Post Diagnosis Operation Date: 01/10/23 14:25 <No data on this case meets the specified criteria> I identified the patient and participated in the time-out.: Yes Procedure Operation Date: 01/10/23 14:25 Actual Procedures p Esophagogastroduodenoscopy - Hope Stuart MD Surgeon Hope Stuart MD Hole Filler None Estimated Blood Loss 0 Findings See Below (CBD stones removed, stent placed) Specimens None Description of Procedure ERCP I attest to the content of the Intraoperative Record and any orders documented therein. Any exceptions are noted below.
--- NOTE | 2023-01-10 14:45 | GI REPORT ---
Patient Name: Anel Hogue Procedure Date: 01/10/2023 1:49 PM Date of : 1945 Admit Type: Inpatient Age: 77 Gender: Female Attending MD: Hope Stuart MD, Procedure: Upper GI endoscopy Providers: Hope Stuart MD Referring MD: Ethan Garcia Md Indications: Abdominal pain Medicines: Propofol per Anesthesia Complications: No immediate complications. Estimated Blood Loss: Estimated blood loss: none. Procedure: Pre-Anesthesia Assessment: - Prior to the procedure, a History and Physical was performed, and patient medications, allergies and sensitivities were reviewed. The patient's tolerance of previous anesthesia was reviewed. - The risks and benefits of the procedure and the sedation options and risks were discussed with the patient. All questions were answered and informed consent was obtained. - Patient identification and proposed procedure were verified prior to the procedure by the physician and the nurse. The procedure was verified in the procedure room. - Pre-procedure physical examination revealed no contraindications to sedation. After obtaining informed consent, the endoscope was passed under direct vision. Throughout the procedure, the patient's blood pressure, pulse, and oxygen saturations were monitored continuously. The Scope was introduced through the mouth, and advanced to the second part of duodenum. The upper GI endoscopy was accomplished without difficulty. The patient tolerated the procedure well. Findings: The examined esophagus was normal. A large hiatal hernia was present. An endoclip was found in the gastric fundus. One non-bleeding linear and superficial gastric ulcer with no stigmata of bleeding was found in the gastric antrum. The lesion was 20 mm in largest dimension. The duodenal bulb and second portion of the duodenum were normal. Impression: - Normal esophagus. - Large hiatal hernia. - A retained endoclip and Padlock clip was found in the stomach. - Non-bleeding gastric ulcer with no stigmata of bleeding. - Normal duodenal bulb and second portion of the duodenum. - No specimens collected. Recommendation: - Use a proton pump inhibitor PO BID for 3 months. - Perform an ERCP today. - Repeat upper endoscopy in 2 months to check healing and biopsy the ulcer area. Hope Stuart MD 01/10/2023 2:45:12 PM This report has been signed electronically. Note Initiated On: 01/10/2023 1:49 PM Number of Addenda: 0 I attest to the content of the Intraoperative Record and orders documented therein, exceptions below {[id number]}
--- NOTE | 2023-01-10 14:48 | GI REPORT ---
Patient Name: Anel Hogue Procedure Date: 01/10/2023 1:50 PM Date of : 1945 Admit Type: Inpatient Age: 77 Gender: Female Attending MD: Hope Stuart MD, Procedure: ERCP Providers: Hope Stuart MD Referring MD: Ethan Garcia Md Indications: Abnormal MRCP, For therapy of bile duct stone(s) Medicines: Propofol per Anesthesia Complications: No immediate complications. Estimated Blood Loss: Estimated blood loss: none. Procedure: Pre-Anesthesia Assessment: - Prior to the procedure, a History and Physical was performed, and patient medications, allergies and sensitivities were reviewed. The patient's tolerance of previous anesthesia was reviewed. - The risks and benefits of the procedure and the sedation options and risks were discussed with the patient. All questions were answered and informed consent was obtained. - Patient identification and proposed procedure were verified prior to the procedure by the physician and the nurse. The procedure was verified in the procedure room. - Pre-procedure physical examination revealed no contraindications to sedation. After obtaining informed consent, the scope was passed under direct vision. Throughout the procedure, the patient's blood pressure, pulse, and oxygen saturations were monitored continuously. The Duodenoscope was introduced through the mouth, and advanced to the duodenum and used to inject contrast into the bile duct. The ERCP was accomplished without difficulty. The patient tolerated the procedure well. Findings: The opticianry teacher film was normal. The esophagus was successfully intubated under direct vision. The scope was advanced to a normal major papilla in the descending duodenum without detailed examination of the pharynx, larynx and associated structures, and upper GI tract. The upper GI tract was grossly normal. A 0.035 inch straight standard wire was passed into the biliary tree. The short-nosed traction sphincterotome was passed over the guidewire and the bile duct was then deeply cannulated. Contrast was injected. I personally interpreted the bile duct images. Ductal flow of contrast was adequate. Image quality was adequate. Contrast extended to the main bile duct. Opacification of the entire biliary tree was successful. The maximum diameter of the ducts was 12 mm. Biliary sphincterotomy was made with a monofilament traction (standard) sphincterotome using ERBE electrocautery. There was no post-sphincterotomy bleeding. The biliary tree was swept with a 15 mm balloon starting at the bifurcation. A few stones were removed. No stones remained. One 7 Fr by 7 cm plastic biliary stent with a single external pigtail and a single internal pigtail was placed into the common bile duct. Bile flowed through the stent. The stent was in good position. Impression: - Choledocholithiasis was found. Complete removal was accomplished by biliary sphincterotomy and balloon extraction. - One plastic biliary stent was placed into the common bile duct. Recommendation: - [facility]. - Repeat ERCP in 2 months to remove stent. At that time will perform EUS guided GB drainage using Axios stent as patient deemed a nonsurgical candidate. - No Anticoagulation for 5 days. Hope Stuart MD 01/10/2023 2:48:10 PM This report has been signed electronically. Note Initiated On: 01/10/2023 1:50 PM Number of Addenda: 0 I attest to the content of the Intraoperative Record and orders documented therein, exceptions below {[id number]}
--- NOTE | 2023-01-10 15:07 | Anesthesiology Progress Note ---
Date of Service January 10, 2023 Anesthesia Post Procedure Vital Signs Vital Signs: Temp Pulse Pulse Pulse Resp BP Pulse Ox 01/10/23 15:05 36.7 C 60 20 117/63 97 01/10/23 14:55 60 20 121/56 L 97 01/10/23 14:45 60 20 107/54 L 95 01/10/23 14:36 36.5 C 64 20 103/61 95 01/10/23 13: 36.6 C 63 18 119/64 93 01/10/23 11:16 36.8 C 52 L 18 102/60 94 01/10/23 07:56 36.6 C 57 L 18 96/61 L 95 01/10/23 03:38 55 L 01/10/23 02:51 36.8 C 65 18 97/57 L 92 01/10/23 01:55 88 01/09/23 23:51 114/62 01/09/23 23:23 90 01/09/23 22:56 36.7 C 57 L 20 103/68 95 01/09/23 19:29 36.9 C 85 20 125/70 95 01/09/23 16:06 36.6 C 63 18 130/81 95 Pulse Ox O2 Del Method O2 Del Method O2 Flow Rate 01/10/23 15:05 Nasal Cannula 2 01/10/23 14:55 Nasal Cannula 2 01/10/23 14:45 Nasal Cannula 2 01/10/23 14:36 Oxymask 4 01/10/23 13:23 Room Air 01/10/23 11:16 Room Air 01/10/23 07:56 Room Air 01/10/23 03:38 89 L Room Air 01/10/23 02:51 Room Air 01/10/23 01:55 93 Room Air 01/09/23 23:51 01/09/23 23:23 01/09/23 22:56 Room Air 01/09/23 19:29 Room Air 01/09/23 16:06 Room Air Pain Intensity Abdomen: Pain Intensity: 10 Transfer of Care Handoff Completed per policy Notes Mental Status: alert / awake / arousable and participated in evaluation Patient Amnestic to Procedure: Yes Nausea / Vomiting: adequately controlled Pain: adequately controlled Airway Patency, RR, SpO2: stable & adequate BP & HR: stable & adequate Hydration State: stable & adequate Anesthetic Complications: no major complications apparent
[2023-01-10] MEDS: MoRPHine SULFATE 2 MG/ML CARP IV PRN (16:17)
[2023-01-10] MEDS ORDERED: METOPROLOL TARTRATE 1 MG/ML VIAL IV STA (16:31)
[2023-01-10] MEDS ORDERED: METOPROLOL TARTRATE 1 MG/ML VIAL IV ONE (16:34)
[2023-01-10] MEDS: HEPARIN SOD 5,000 UNIT/0.5 ML VIAL SQ SCH (17:11)
--- NOTE | 2023-01-10 17:44 | Fluoroscopy Report ---
[place] ERCP biliary ductal CLINICAL HISTORY: ERCP. Elevated hepatic transaminases. Cholelithiasis. Choledocholithiasis. COMPARISON STUDY: MRCP 01/09/2023. FLUOROSCOPY TIME: 23 seconds FLUOROSCOPY IMAGES: 8 Ka,r: 8.4 mGy FINDINGS: The ampulla was cannulated and contrast was injected into the distended common bile duct. A balloon sweep was performed. This is followed by placement of a common bile duct stent. The proximal portion of the stent terminates in the left intrahepatic bile duct stents. IMPRESSION: Fluoroscopic assistance as described above. The proximal portion of the common bile duct stent terminates in the left intrahepatic bile ducts. ACT 112: Negative or not required by law. Electronically signed by: Markie Silva M.D. 01/10/2023 5:43 PM
[2023-01-10] MEDS: ACETAMINOPHEN 500 MG TAB PO PRN (18:30)
[2023-01-10] MEDS: DOCUSATE SODIUM 100 MG CAP PO PRN (19:41)
--- NOTE | 2023-01-10 20:03 | Hospitalist Progress Note ---
Date of Service January 10, 2023 Assessment & Plan (1) Abdominal pain: Plan: Choledocholithiasis without acute cholecystitis-imagings reviewed. Seen by surgery and GI. -Status post EGD and ERCP today-details below -Post ERCP patient had episodes of atrial fibrillation and required IV Lopressor with conversion to sinus rhythm -Follow-up labs in a.m. 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 Multiple tiny gallstones. Mild ascites. Mild constipation. Diverticulosis with no signs of diverticulitis.No acute appendicitis or bowel obstruction. Fibromatous uterus otherwise incompletely characterized. If indicated, this can be further assessed with MRI or ultrasound of the pelvis in nonacute setting. --Gall Bladder USD:Right-sided pleural effusion with fluid within Morison's pouch.Multiple gallstones with mild pericholecystic fluid and borderline thic kening of the wall, cannot exclude acute cholecystitis although findings are nonspecific in the context of fluid overload. If indicated, recommend follow-up with HIDA scan for further evaluation. Borderline prominence of the common bile duct as described, remainder of the right upper quadrant ultrasound unremarkable. --HIDA:No evidence for acute cholecystitis. Delayed visualization of activity within the common bile duct and nonvisualization of small bowel activity. These findings are nonspecific and differential considerations include sphincter dysfunction, spasm or partial common bile duct obstruction. Findings could be correlated with liver function tests. --MRCP:Cholelithiasis with a mildly distended and thick-walled gallbladder. Given the normal hepatobiliary scan acute cholecystitis is considered unlikely, and this is likely related to adjacent hepatocellular disease/ascites.There is dilatation of the common bile duct with choledocholithiasis. Enlarged he terogeneous liver. Splenomegaly. Moderate pleural effusions. Abdominal ascites. EGD findings: Impression: - Normal esophagus. - Large hiatal hernia. - A retained endoclip and Padlock clip was found in the stomach. - Non-bleeding gastric ulcer with no stigmata of bleeding. - Normal duodenal bulb and second portion of the duodenum. - No specimens collected. Recommendation:- Use a proton pump inhibitor PO BID for 3 months. - Repeat upper endoscopy in 2 months to check healing and biopsy the ulcer area. ERCP finding: Choledocholithiasis was found and complete removal was accomplished by biliary sphincterotomy and balloon extraction. 1 plastic biliary stent was placed into common bile duct. Recommendation-repeat ERCP in 2 months to remove stent, at that time we will perform EUS guided gallbladder drainage using actual stent as patient deemed a nonsurgical candidate. -No anticoagulation for 5 days Paroxysmal atrial fibrillation, NSVT H/O cardiac amyloidosis -Cardiology following. Monitor on telemetry -As patient has cardiac amyloidosis, medication use is limited with poor tolerance due to bradycardia Chronic diastolic heart failure Valvular heart disease Pulmonary hypertension Bilateral pleural effusion --ECHO 11/22/22: Left ventricle cavity is small. Severe concentric LVH. EF 60 to 65%. Mild mitral regurgitation. Severe tricuspid regurgitation. Estimated systolic pulmonary pressure is 43 mmHg. Dilated IVC with normal respiratory variation suggestive of right atrial pressure of 8 mmHg. Grade 3 diastolic dysfunction. --CTA:No distinct pulmonary embolus with suboptimally opacified mid distal branches of the left lower lobe pulmonary arteries in a homogeneous pattern, likely related to decreased flow velocity from diffuse cardiac congestion. Significant cardiomegaly with vascular congestion and prominent bilateral pleural effusions. Bilateral lower lobe atelectasis versus residual infiltrates with lingular atelectasis. -- Resume home diuretics as able --Volume status stable Chronic hypotension Continue midodrine--increased to 2.5 mg 3 times daily H/O Multiple myeloma S/P Chemotherapy Follows with oncology as outpatient Prediabetes HbA1c 6.0 Suspected subclinical hypothyroidism Elevated TSH, normal T4 We will need to repeat thyroid function test as outpatient Chronic troponin elevation Likely due to volume overload Less likely ACS Fibromatous uterus Incidental finding on CT Will need to follow-up with [facility] as outpatient DVT Px: Heparin SQ Dispo: Pending medical stability Admission and Anticipated Discharge Date Admission Date: January 07, 2023 Subjective Patient was seen and examined at bedside prior to ERCP. She feels fine with no abdominal pain, nausea or vomiting. Had bowel movement after enema yesterday. She is n.p.o. for ERCP. no fever, chills, chest pain, shortness of breath. Review of Systems Review of Systems: All systems reviewed & are unremarkable except as noted in Subjective Physical Exam Physical Exam: General: Sitting comfortably in bed, not in distress, on room air HEENT: EOMI, BERNARD, MMM Chest: Clear breath sounds bilaterally, no wheezes or crackles CVS: Regular rate and rhythm, normal heart sounds, no murmur Abdomen: Soft, non tender, not distended, normal bowel sounds Neuro: Awake, alert, oriented, conversing well, non focal Extremities: No cyanosis, clubbing or edema Results & Data Results & Data Vital Signs (Past 12 Hours) Vital Signs Temp Pulse Pulse Resp BP BP Pulse Ox 01/10/23 17:12 43 L 114/56 L 01/10/23 16:45 135 H 120/77 01/10/23 17:19 36.8 C 51 L 18 90/52 L 94 01/10/23 15:45 36.7 C 130 H 18 130/87 97 01/10/23 15:30 36.7 C 62 16 98/63 L 95 01/10/23 15:20 36.7 C 62 16 125/72 94 01/10/23 15:05 36.7 C 60 20 117/63 97 01/10/23 14:55 60 20 121/56 L 97 01/10/23 14:45 60 20 107/54 L 95 01/10/23 14:36 36.5 C 64 20 103/61 95 01/10/23 13: 36.6 C 63 18 119/64 93 01/10/23 11:16 36.8 C 52 L 18 102/60 94 01/10/23 07:56 36.6 C 57 L 18 96/61 L 95 O2 Del Method O2 Flow Rate 01/10/23 17:12 01/10/23 16:45 01/10/23 17:19 Nasal Cannula 2 01/10/23 15:45 Nasal Cannula 2 01/10/23 15:30 Nasal Cannula 2 01/10/23 15:20 Nasal Cannula 2 01/10/23 15:05 Nasal Cannula 2 01/10/23 14:55 Nasal Cannula 2 01/10/23 14:45 Nasal Cannula 2 01/10/23 14:36 Oxymask 4 01/10/23 13:23 Room Air 01/10/23 11:16 Room Air 01/10/23 07:56 Room Air
[2023-01-10] MEDS: PANTOprazole 40 MG TAB PO SCH (20:59)
[2023-01-11] MEDS: ACETAMINOPHEN 500 MG TAB PO PRN ×2 (00:41→08:58)
[2023-01-11] MEDS: LACTATED RINGER'S 1,000 ML IV SCH (04:06)
[2023-01-11 07:36] LABS: Hematocrit (blood only) 37.9 % (37.0-47.0); Mean Corpuscular Hemoglobin 29.3 pg (25.0-34.0); Mean Corpuscular Hgb Conc 31.7 g/dL (32.0-36.0); Mean Corpuscular Volume 92.7 fL (80.0-100.0); Mean Platelet Volume 12.4 fL (9.4-12.4); Platelet Count 108 K/uL (130-400); RDW Coefficient of Variation 16.1 % (11.5-14.5); RDW Standard Deviation 53.7 fL (36.4-46.3); Red Blood Count 4.09 M/uL (4.20-5.40); White Blood Count 5.51 K/ul (4.8-10.8)
[2023-01-11 07:52] LABS: Albumin Globulin Ratio 0.8 (0.9-2); Albumin Level 3.1 gm/dl (3.4-5.0); BUN Creatinine Ratio 22.9 (10-20); Bilirubin,Total 1.9 mg/dl (0.2-1.0); Calcium 8.8 mg/dl (8.6-10.3); Creatinine Clr Calc Pharmacy 87.9 ml/min; Est GFR (African American) 110.4 ml/min; Est GFR (Non-African American) 95.3 ml/min; Globulin 3.9 gm/dl (2.5-4.0); Phosphorus 3.5 mg/dl (2.5-4.9)
[2023-01-11] MEDS: MIDODRINE HCL 2.5 MG TAB PO SCH ×3 (08:14→17:52)
[2023-01-11] MEDS: ASPIRIN 81 MG ECTAB PO SCH (08:15)
[2023-01-11] MEDS: CYANOCOBALAMIN (B-12) 500 MCG TABLET PO SCH (08:15)
[2023-01-11] MEDS: PANTOprazole 40 MG TAB PO SCH ×2 (08:15→20:07)
--- NOTE | 2023-01-11 12:09 | Cardiology Progress Note ---
Date of Service January 11, 2023 Assessment & Plan (1) Paroxysmal atrial fibrillation: (2) Cardiac amyloidosis: (3) Chronic heart failure with preserved ejection fraction (HFpEF): (4) Sinus arrhythmia: (5) Abdominal pain: Plan IMPRESSION: Cardiac history notable for cardiac amyloidosis and chronic HFpEF. Admitted for abdominal discomfort and currently being worked up for cholecystis-- HIDA scan negative, plans for MRCP this afternoon. Telemetry revealing SR/SA with rates in the 50-60s. AFIB noted on telemetry over night, elevated rates- mildly symptomatic. PLAN: Patient underwent EGD/ERCP on 01/10/2023 with findings of a nonbleeding superficial gastric ulcer with no stigmata of bleeding. Choledocholithiasis noted with subsequent biliary sphincterotomy and balloon extraction, 1 plastic biliary stent was placed in the common bile duct. Gastroenterology recommends repeat ERCP in 2-month interval to remove the biliary stent with plans at that time to perform EUS guided gallbladder drainage using axial stent. Recommendations were made to hold anticoagulation for 5 days. Volume status stable off of diuretics at present. Continue midodrine. Recurrent episodes of paroxysmal atrial fibrillation observed. Patient with findings of tachycardia-bradycardia syndrome. She did not tolerate past trials of metoprolol as an outpatient due to bradycardia. Continue to monitor off anticoagulation loss of AV fredo blockers. Future considerations include pacemaker either this admission or as an outpatient. Patient has not had any observed ventricular arrhythmias. Although studies have shown that up to one half of patients with cardiac amyloid suddenly, AICD placement for indications of primary and secondary prevention have not been strong supported by expert guidelines due to lack of evidence that such a device improves prognosis in this disease entity. Admission and Anticipated Discharge Date Admission Date: January 07, 2023 Subjective Patient seen and examined. Family including daughter and at the bedside. At time my assessment, atrial fibrillation with ventricular rate in the 80s present. Physical Exam Constitutional: WD/WN, vitals as above no acute distress ENMT: external ear and nose normal, oropharynx normal Neck: normal visual inspection and trachea midline Respiratory: normal respiratory effort, lungs clear to auscultation Cardiovascular: RRR, no murmur, no edema Rate/Rhythm: regular rate and regular rhythm Heart Sounds: normal S1, normal S2 and + murmur Vessels: no JVD Extremities: no edema Gastrointestinal (Abdomen): Inspection/Auscultation: abdomen normal to inspection and normal bowel sounds; abdomen not distended Percussion/Palpation: + abdomen tender and abdomen soft Musculoskeletal: no cyanosis or clubbing, extremities motor strength 5/5 Skin: no rashes, warm and dry Psychiatric: A+Ox3, euthymic affect Results & Data Vital Signs (Past 12 Hours) Vital Signs Temp Pulse Pulse Resp BP Pulse Ox O2 Del Method 01/11/23 11:43 36.7 C 123 H 20 120/78 94 Room Air 01/11/23 09:52 132 H 116/75 01/11/23 07:55 36.7 C 56 L 18 103/63 97 Nasal Cannula 01/11/23 07:50 54 L 01/11/23 04:22 130 H 104/67 01/11/23 03:00 36.8 C 87 16 120/70 94 Nasal Cannula 01/11/23 02:00 61 121/60 O2 Flow Rate 01/11/23 11:43 01/11/23 09:52 01/11/23 07:55 2.0 01/11/23 07:50 01/11/23 04:22 01/11/23 03:00 2 01/11/23 02:00
[2023-01-11] MEDS: FLUTICASONE PROPIONATE NA SPR 16 GM BTL SCH (14:17)
[2023-01-11] MEDS: DOCUSATE SODIUM 100 MG CAP PO PRN (14:53)
--- NOTE | 2023-01-11 15:52 | Hospitalist Progress Note ---
Date of Service January 11, 2023 Assessment & Plan (1) Abdominal pain: Plan: Choledocholithiasis without acute cholecystitis-imagings reviewed. Seen by surgery and GI. 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 Multiple tiny gallstones. Mild ascites. Mild constipation. Diverticulosis with no signs of diverticulitis.No acute appendicitis or bowel obstruction. Fibromatous uterus otherwise incompletely characterized. If indicated, this can be further assessed with MRI or ultrasound of the pelvis in nonacute setting. --Gall Bladder USD:Right-sided pleural effusion with fluid within Morison's po uch.Multiple gallstones with mild pericholecystic fluid and borderline thickening of the wall, cannot exclude acute cholecystitis although findings are nonspecific in the context of fluid overload. If indicated, recommend follow-up with HIDA scan for further evaluation. Borderline prominence of the common bile duct as described, remainder of the right upper quadrant ultrasound unremarkable. --HIDA:No evidence for acute cholecystitis. Delayed visualization of activity within the common bile duct and nonvisualization of small bowel activity. These findings are nonspecific and differential considerations include sphincter dysfunction, spasm or partial common bile duct obstruction. Findings could be correlated with liver function tests. --MRCP:Cholelithiasis with a mildly distended and thick-walled gallbladder. Given the normal hepatobiliary scan acute cholecystitis is considered unlikely, and this is likely related to adjacent hepatocellular disease/ascites.There is dilatation of the common bile duct with choledocholithiasis. Enlarged heterogeneous liver. Splenomegaly. Moderate pleural effusions. Abdominal ascites. EGD findings: Impression: - Normal esophagus. - Large hiatal hernia. - A retained endoclip and Padlock clip was found in the stomach. - Non-bleeding gastric ulcer with no stigmata of bleeding. - Normal duodenal bulb and second portion of the duodenum. - No specimens collected. Recommendation:- Use a proton pump inhibitor PO BID for 3 months. - Repeat upper endoscopy in 2 months to check healing and biopsy the ulcer area. ERCP finding: Choledocholithiasis was found and complete removal was accomplished by biliary sphincterotomy and balloon extraction. 1 plastic biliary stent was placed into common bile duct. Recommendation-repeat ERCP in 2 months to remove stent, at that time we will perform EUS guided gallbladder drainage using actual stent as patient deemed a nonsurgical candidate. -No anticoagulation for 5 days Paroxysmal atrial fibrillation, NSVT H/O cardiac amyloidosis -Cardiology following. Monitor on telemetry. Electrolytes at goal. -As patient has cardiac amyloidosis, medication use is limited with poor toleran ce due to bradycardia -Per cardiology, continue to monitor off of AV fredo blockers and anticoagulation. Future consideration include pacemaker either this admission or as outpatient. Chronic diastolic heart failure Valvular heart disease Pulmonary hypertension Bilateral pleural effusion --ECHO 11/22/22: Left ventricle cavity is small. Severe concentric LVH. EF 60 to 65%. Mild mitral regurgitation. Severe tricuspid regurgitation. Estimated systolic pulmonary pressure is 43 mmHg. Dilated IVC with normal respiratory variation suggestive of right atrial pressure of 8 mmHg. Grade 3 diastolic dysfunction. --CTA:No distinct pulmonary embolus with suboptimally opacified mid distal branches of the left lower lobe pulmonary arteries in a homogeneous pattern, likely related to decreased flow velocity from diffuse cardiac congestion. Significant cardiomegaly with vascular congestion and prominent bilateral pleural effusions. Bilateral lower lobe atelectasis versus residual infiltrates with lingular atelectasis. 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 Complains of some discomfort at right side of abdomen and back since ERCP yesterday. Tolerating full liquid diet without issues. Had some nausea but better now. No fever, chills, chest pain, shortness of breath, vomiting. Review of Systems Review of Systems: All systems reviewed & are unremarkable except as noted in Subjective Physical Exam Physical Exam: General: Sitting comfortably in bed, not in distress, on room air HEENT: EOMI, BERNARD, MMM Chest: Clear breath sounds bilaterally, no wheezes or crackles CVS: Regular rate and rhythm, normal heart sounds, no murmur Abdomen: Soft, non tender, not distended, normal bowel sounds Neuro: Awake, alert, oriented, conversing well, non focal Extremities: No cyanosis, clubbing or edema Results & Data Results & Data Vital Signs (Past 12 Hours) Vital Signs Temp Pulse Pulse Resp BP Pulse Ox O2 Del Method 01/11/23 11:43 36.7 C 123 H 20 120/78 94 Room Air 01/11/23 09:52 132 H 116/75 01/11/23 07:55 36.7 C 56 L 18 103/63 97 Nasal Cannula 01/11/23 07:50 54 L 01/11/23 04:22 130 H 104/67 O2 Flow Rate 01/11/23 11:43 01/11/23 09:52 01/11/23 07:55 2.0 01/11/23 07:50 01/11/23 04:22 Laboratory Results Short CBC 01/11/23 Range/Units 06:54 WBC 5.51 (4.8-10.8) K/ul Hgb 12.0 (12.0-16.0) g/dl Hct 37.9 (37.0-47.0) % Plt Count 108 L (130-400) K/uL BMP 01/11/23 06:54 Sodium 134 L Potassium 4.0 Chloride 105 Carbon Dioxide 22 BUN 11 Creatinine 0.48 L Glucose 75 Calcium 8.8 Liver Function 01/11/23 Range/Units 06:54 Total Bilirubin 1.9 H (0.2-1.0) mg/dl AST 56 H (13-39) U/L ALT 54 H (7-52) U/L Alkaline Phosphatase 165 H (34-104) U/L Albumin 3.1 L (3.4-5.0) gm/dl Medications Administered Current Inpatient Medications Acetaminophen (Acetaminophen 500 Mg Tab) 500 mg PO Q6H PRN PRN Reason: fever/pain Stop: 02/07/23 00:03 Last Admin: 01/11/23 08:58 Dose: 500 mg Aspirin (Aspirin 81 Mg Ectab) [facility] [place] Stop: 02/07/23 08:59 Last Admin: 01/11/23 08:15 Dose: 81 mg Bisacodyl (Bisacodyl 10 Mg Supp) 10 mg [place] DAILY PRN PRN Reason: Constipation Stop: 02/08/23 16:55 Last Admin: 01/09/23 17:10 Dose: 10 mg Cyanocobalamin (Cyanocobalamin (B-12) 500 Mcg Tablet) 1,000 mcg PO QAM RYANN Stop: 02/07/23 08:59 Last Admin: 01/11/23 08:15 Dose: 1,000 mcg Docusate Sodium (Docusate Sodium 100 Mg Cap) 100 mg PO BID PRN PRN Reason: Constipation Stop: 02/07/23 12:59 Last Admin: 01/11/23 14:53 Dose: 100 mg Fluticasone Propionate (Fluticasone Propionate Na Spr 16 Gm Btl) 1 sprays NA DAILY RYANN Stop: 02/10/23 12:44 Last Admin: 01/11/23 14:17 Dose: 1 sprays Heparin Sodium (Porcine) (Heparin Sod 5,000 Unit/0.5 Ml Vial) 5,000 units SQ Q12 RYANN Stop: 02/07/23 20:59 Last Admin: 01/10/23 17:11 Dose: Not Given Promethazine HCl 6.25 mg/ (Sodium Chloride) 50.25 mls @ 201 mls/hr IV Q6H PRN PRN Reason: Nausea And Vomiting Stop: 02/07/23 00:03 Last Infusion: 01/11/23 09:08 Dose: Infused Lorazepam (Lorazepam 0.5 Mg Tab) 0.25 mg PO TID PRN PRN Reason: Anxiety Stop: 02/07/23 00:03 Midodrine (Midodrine Hcl 2.5 Mg Tab) 2.5 mg PO DAILY@0700,1200,1800 RYANN Stop: 02/08/23 13:59 Last Admin: 01/11/23 11:44 Dose: 2.5 mg Morphine Sulfate (Morphine Sulfate 2 Mg/Ml Carp) 2 mg IV Q3H PRN PRN Reason: Pain Stop: 01/22/23 00:03 Last Admin: 01/10/23 16:17 Dose: 2 mg Pantoprazole Sodium (Pantoprazole 40 Mg Tab) 40 mg PO BID RYANN Stop: 02/09/23 20:59 Last Admin: 01/11/23 08:15 Dose: 40 mg Polyethylene Glycol (Polyethylene (Miralax) 17 Gm Pack) 17 gm PO DAILY PRN PRN Reason: Constipation Stop: 02/07/23 08:36 Sucralfate (Sucralfate 1 Gm/10 Ml Udc) 1 gm PO QID PRN PRN Reason: Gi Upset Stop: 02/07/23 01:25 Tramadol HCl (Tramadol Hcl 50 Mg Tablet) 25 - 50 mg PO Q4H PRN PRN Reason: Pain Stop: 02/07/23 00:03 Last Admin: 01/08/23 01:21 Dose: 25 mg
[2023-01-11] MEDS: HEPARIN SOD 5,000 UNIT/0.5 ML VIAL SQ SCH (20:07)
[2023-01-11] MEDS: traMADol HCL 50 MG TABLET PO PRN (20:07)
[2023-01-11] MEDS: SUCRALFATE 1 GM/10 ML UDC PO PRN (21:00)
[2023-01-12] MEDS: MIDODRINE HCL 2.5 MG TAB PO SCH ×3 (06:16→18:33)
[2023-01-12 06:44] LABS: Hematocrit (blood only) 37.7 % (37.0-47.0); Hemoglobin 12.3 g/dl (12.0-16.0); Mean Corpuscular Hemoglobin 29.9 pg (25.0-34.0); Mean Corpuscular Hgb Conc 32.6 g/dL (32.0-36.0); Mean Corpuscular Volume 91.5 fL (80.0-100.0); Mean Platelet Volume 12.3 fL (9.4-12.4); Platelet Count 122 K/uL (130-400); RDW Coefficient of Variation 16.3 % (11.5-14.5); RDW Standard Deviation 53.2 fL (36.4-46.3); Red Blood Count 4.12 M/uL (4.20-5.40); White Blood Count 4.18 K/ul (4.8-10.8)
[2023-01-12 07:09] LABS: Calcium 8.7 mg/dl (8.6-10.3); Creatinine Clr Calc Pharmacy 106.4 ml/min; Est GFR (African American) 117.3 ml/min; Est GFR (Non-African American) 101.2 ml/min; Magnesium 1.9 mg/dl (1.7-2.4); Potassium 4.2 mmol/L (3.5-5.1)
[2023-01-12] MEDS: CYANOCOBALAMIN (B-12) 500 MCG TABLET PO SCH (08:09)
[2023-01-12] MEDS: ASPIRIN 81 MG ECTAB PO SCH (08:09)
[2023-01-12] MEDS: FLUTICASONE PROPIONATE NA SPR 16 GM BTL SCH (08:10)
[2023-01-12] MEDS: PANTOprazole 40 MG TAB PO SCH ×2 (08:10→21:09)
[2023-01-12] MEDS: SUCRALFATE 1 GM/10 ML UDC PO PRN ×2 (09:37→18:33)
[2023-01-12] MEDS: ACETAMINOPHEN 500 MG TAB PO PRN ×2 (09:37→18:36)
[2023-01-12] MEDS: HEPARIN SOD 5,000 UNIT/0.5 ML VIAL SQ SCH ×2 (12:07→21:09)
--- NOTE | 2023-01-12 12:36 | Hospitalist Progress Note ---
Date of Service January 12, 2023 Assessment & Plan (1) Abdominal pain: Plan: Choledocholithiasis without acute cholecystitis-imagings reviewed. Seen by surgery and GI. 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 Multiple tiny gallstones. Mild ascites. Mild constipation. Diverticulosis with no signs of diverticulitis.No acute appendicitis or bowel obstruction. Fibromatous uterus otherwise incompletely characterized. If indicated, this can be further assessed with MRI or ultrasound of the pelvis in nonacute setting. --Gall Bladder USD:Right-sided pleural effusion with fluid within Morison's po uch.Multiple gallstones with mild pericholecystic fluid and borderline thickening of the wall, cannot exclude acute cholecystitis although findings are nonspecific in the context of fluid overload. If indicated, recommend follow-up with HIDA scan for further evaluation. Borderline prominence of the common bile duct as described, remainder of the right upper quadrant ultrasound unremarkable. --HIDA:No evidence for acute cholecystitis. Delayed visualization of activity within the common bile duct and nonvisualization of small bowel activity. These findings are nonspecific and differential considerations include sphincter dysfunction, spasm or partial common bile duct obstruction. Findings could be correlated with liver function tests. --MRCP:Cholelithiasis with a mildly distended and thick-walled gallbladder. Given the normal hepatobiliary scan acute cholecystitis is considered unlikely, and this is likely related to adjacent hepatocellular disease/ascites.There is dilatation of the common bile duct with choledocholithiasis. Enlarged heterogeneous liver. Splenomegaly. Moderate pleural effusions. Abdominal ascites. EGD findings: Impression: - Normal esophagus. - Large hiatal hernia. - A retained endoclip and Padlock clip was found in the stomach. - Non-bleeding gastric ulcer with no stigmata of bleeding. - Normal duodenal bulb and second portion of the duodenum. - No specimens collected. Recommendation:- Use a proton pump inhibitor PO BID for 3 months. - Repeat upper endoscopy in 2 months to check healing and biopsy the ulcer area. ERCP finding: Choledocholithiasis was found and complete removal was accomplished by biliary sphincterotomy and balloon extraction. 1 plastic biliary stent was placed into common bile duct. Recommendation-repeat ERCP in 2 months to remove stent, at that time we will perform EUS guided gallbladder drainage using actual stent as patient deemed a nonsurgical candidate. -No anticoagulation for 5 days Paroxysmal atrial fibrillation, NSVT H/O cardiac amyloidosis -Cardiology following. Monitor on telemetry. Electrolytes at goal. -As patient has cardiac amyloidosis, medication use is limited with poor toleran ce due to bradycardia -Per cardiology, continue to monitor off of AV fredo blockers and anticoagulation. Future consideration include pacemaker either this admission or as outpatient. Chronic diastolic heart failure Valvular heart disease Pulmonary hypertension Bilateral pleural effusion --ECHO 11/22/22: Left ventricle cavity is small. Severe concentric LVH. EF 60 to 65%. Mild mitral regurgitation. Severe tricuspid regurgitation. Estimated systolic pulmonary pressure is 43 mmHg. Dilated IVC with normal respiratory variation suggestive of right atrial pressure of 8 mmHg. Grade 3 diastolic dysfunction. --CTA:No distinct pulmonary embolus with suboptimally opacified mid distal branches of the left lower lobe pulmonary arteries in a homogeneous pattern, likely related to decreased flow velocity from diffuse cardiac congestion. Significant cardiomegaly with vascular congestion and prominent bilateral pleural effusions. Bilateral lower lobe atelectasis versus residual infiltrates with lingular atelectasis. --C/o chest congestion today. Will give a dose of iv lasix. Also on mucinex. Chronic hypotension Continue midodrine--increased to 2.5 mg 3 times daily H/O Multiple myeloma S/P Chemotherapy Follows with oncology as outpatient Prediabetes HbA1c 6.0 Suspected subclinical hypothyroidism Elevated TSH, normal T4 We will need to repeat thyroid function test as outpatient Fibromatous uterus Incidental finding on CT Will need to follow-up with COMMUNICATIONS ASSOCIATE as outpatient DVT Px: Heparin SQ Dispo: Pending medical stability. EP cardiology has been consulted for consideration of pacemaker. Admission and Anticipated Discharge Date Admission Date: January 07, 2023 Subjective Patient was seen and examined at bedside. No new issues. Complains of some back pain and some chest congestion. No nausea, vomiting, chest pain, shortness of breath, abdominal pain. No bowel movement since and would like miralax rather than suppository. Review of Systems Review of Systems: All systems reviewed & are unremarkable except as noted in Subjective Physical Exam Physical Exam: General: Sitting comfortably in bed, not in distress, on room air HEENT: EOMI, BERNARD, MMM Chest: Clear breath sounds bilaterally, no wheezes or crackles CVS: Regular rate and rhythm, normal heart sounds, no murmur Abdomen: Soft, non tender, not distended, normal bowel sounds Neuro: Awake, alert, oriented, conversing well, non focal Extremities: No cyanosis, clubbing or edema Results & Data Results & Data Vital Signs (Past 12 Hours) Vital Signs Temp Pulse Pulse Resp BP Pulse Ox O2 Del Method 01/12/23 09:44 Room Air, Nasal Cannula 01/12/23 07:38 36.7 C 53 L 18 95/54 L 95 Nasal Cannula 01/12/23 07:38 53 L 01/12/23 03:10 36.6 C 133 H 18 106/68 93 Nasal Cannula O2 Flow Rate 01/12/23 09:44 2 01/12/23 07:38 1 01/12/23 07:38 01/12/23 03:10 2 Laboratory Results Short CBC 01/12/23 Range/Units 06:05 WBC 4.18 L (4.8-10.8) K/ul Hgb 12.3 (12.0-16.0) g/dl Hct 37.7 (37.0-47.0) % Plt Count 122 L (130-400) K/uL BMP 01/12/23 06:05 Sodium 136 Potassium 4.2 Chloride 106 Carbon Dioxide 25 BUN 10 Creatinine 0.40 L Glucose 96 Calcium 8.7
[2023-01-12] MEDS ORDERED: FUROSEMIDE INJ 20 MG/2 ML VIAL IV ONE (13:31)
--- NOTE | 2023-01-12 13:53 | Cardiology Consultation ---
Date of Consultation January 12, 2023 Assessment & Plan (1) Tachy-walker syndrome: Plan 1. Tachybradycardia syndrome: With frequent episodes of rapid heart rate due to atrial fibrillation and difficulty using rate controlling medications due to bradycardia I believe it is reasonable to consider pacemaker implantation. I discussed the indications, procedure, risks and alternatives with her and she understands and agrees to proceed. I will try to do this procedure tomorrow, schedule depending, and will therefore make her n.p.o. I will hold her heparin tomorrow. History of Present Illness Reason for Consultation: Tachybradycardia syndrome Attending Physician: Ethan Garcia MD History of Present Illness This is a 77-year-old woman with a history of cardiac amyloid and chronic diastolic congestive heart failure who presented with abdominal discomfort which was due to choledocholithiasis which was treated by ERCP. On telemetry she has had episodes of atrial fibrillation with rapid heart rates alternating with periods of relatively slow heart rate limiting the ability to use rate contro lling medications. She is therefore referred for pacemaker implantation to allow use of rate controlling medications. Echocardiography done November 22, 2022 shows a small left ventricular cavity with severe concentric left ventricular hypertrophy and grade 3 diastolic dysfunction. An electrocardiogram on January 09, 2023 shows sinus bradycardia 55 bpm with first-degree AV block and a CA interval of about 220 ms. QRS complex is 92 ms in duration. Allergies Allergy/AdvReac Type Severity Reaction Status Date / Time No Known Allergies Allergy Unknown ` Verified 11/22/22 13:05 Home Medications Medication Instructions Recorded Confirmed Type cyanocobalamin (vitamin B-12) 1,000 mcg PO QAM 05/14/21 01/07/23 History 1,000 mcg tablet (Vitamin B-12) potassium chloride 20 mEq 20 meq PO QAM 11/22/22 01/07/23 History tablet,extended release(part/cryst) sucralfate 100 mg/mL oral 10 ml PO QID PRN Gi Upset 11/22/22 01/07/23 History suspension aspirin 81 mg tablet,delayed 81 mg PO QAM 01/07/23 01/07/23 History release furosemide 40 mg tablet 40 mg PO UD 01/07/23 01/07/23 History midodrine 5 mg tablet 5 mg PO QAM 01/07/23 01/07/23 History Patient History Medical History Acute combined systolic and diastolic CHF, NYHA class 3 Acute on chronic diastolic (congestive) heart failure Cardiac amyloidosis Chronic diastolic heart failure Elevated troponin GI bleed Multiple myeloma Nausea & vomiting Surgical History History of colonoscopy History of tubal ligation Family History Father , 50s Stroke Mother , 90 Coronary heart disease Social History Smoking Status: Never smoker Second Hand Exposure: No; Do You Dip or Chew Tobacco: No; Hx Alcohol Use: No Hx Substance Use: No Preferred Language: Mosotho 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: Effective Crm Specialist Required: No Beliefs That Will Affect Care: None marital status: Current Living Situation: Spouse Current Living Situation Comment: with Other Information That Helps Us Care for You: No Feels Safe at Home: Yes Safety Concerns: Feels Safe At This Time Assistive Devices: Glasses, Raised Toilet Seat and Walker Physical Exam Physical Exam: Constitutional: Alert, cooperative and in no distress. HEENT: Unremarkable Neck: No jugular venous distention, carotid pulses are normal and equal bilaterally without bruits. Pulmonary: Clear to auscultation bilaterally. Cardiac: Regular rhythm with a soft holosystolic murmur, no gallop or rub. Abdomen: Soft, nontender with normal bowel sounds. Extremities: No edema. Distal pulses intact. Neurologic: No focal findings. Skin: No rash, ecchymoses or petechiae. Results & Data Vital Signs (Past 12 Hours) Vital Signs Temp Pulse Pulse Resp BP Pulse Ox O2 Del Method 01/12/23 12:41 36.3 C L 94 H 18 127/80 92 Room Air 01/12/23 09:44 Room Air, Nasal Cannula 01/12/23 07:38 36.7 C 53 L 18 95/54 L 95 Nasal Cannula 01/12/23 07:38 53 L 01/12/23 03:10 36.6 C 133 H 18 106/68 93 Nasal Cannula O2 Flow Rate 01/12/23 12:41 01/12/23 09:44 2 01/12/23 07:38 1 01/12/23 07:38 01/12/23 03:10 2 Laboratory Results CBC 01/12/23 Range/Units 06:05 WBC 4.18 L (4.8-10.8) K/ul RBC 4.12 L (4.20-5.40) M/uL Hgb 12.3 (12.0-16.0) g/dl Hct 37.7 (37.0-47.0) % Plt Count 122 L (130-400) K/uL Comprehensive Metabolic Panel 01/12/23 Range/Units 06:05 Sodium 136 (136-145) mmol/L Potassium 4.2 (3.5-5.1) mmol/L Chloride 106 (98-107) mmol/L Carbon Dioxide 25 (21-32) mmol/L BUN 10 (6-23) mg/dl Creatinine 0.40 L (0.6-1.2) mg/dl Glucose 96 (70-99(Fasting)) mg/dl Calcium 8.7 (8.6-10.3) mg/dl Intake and Output 01/11/23 01/12/23 01/12/23 22:59 06:59 14:59 Intake Total 150 / 1236.25 200 / 1236.25 Balance 150 / 1236.25 200 / 1236.25 Intake: Oral 150 / 730 200 / 730 Other: # Unmeasured Voids 1 2 Weight 65.7 kg Weight Measurement Method Built in [facility] Diagnostic Findings Telemetry: Rhythm alternating frequently between atrial fibrillation with rapid ventricular response and sinus bradycardia. PG Care Time/CCT Total # of Minutes Spent Total Time Spent with Patient: Total time spent is greater than 50% in coordination of care (as documented) at patient's floor/unit and/or counseling patient: Coding Level of Care Code 92959 INT INP/OBS CARE 2/55MIN Diagnoses Tachy-walker syndrome I49.5
--- NOTE | 2023-01-12 13:56 | Cardiology Progress Note ---
Date of Service January 12, 2023 Assessment & Plan (1) Tachy-walker syndrome: (2) Paroxysmal atrial fibrillation: (3) Cardiac amyloidosis: (4) Chronic heart failure with preserved ejection fraction (HFpEF): (5) Abdominal pain: Plan Patient underwent EGD/ERCP on 01/10/2023 with findings of a nonbleeding superficial gastric ulcer with no stigmata of bleeding. Choledocholithiasis noted with subsequent biliary sphincterotomy and balloon extraction, 1 plastic biliary stent was placed in the common bile duct. Total bilirubin, AST, ALT, alkaline phosphatase all trending down on most recent measurement 01/11/2023. Gastroenterology recommends repeat ERCP in 2-month interval to remove the biliary stent with plans at that time to perform EUS guided gallbladder drainage using axial stent. Recommendations were made to hold anticoagulation for 5 days. Volume status stable off of diuretics at present. Continue midodrine. Recurrent episodes of paroxysmal atrial fibrillation observed. Patient with findings of tachycardia-bradycardia syndrome. She did not tolerate past trials of metoprolol as an outpatient due to bradycardia. Continue to monitor off anticoagulation and off AV fredo blockers. Patient did have a 5 beat run of nonsustained ventricular tachycardia, today, 02/12/2023 at 11:55 AM. Although studies have shown that up to one half of patients with cardiac amyloid suddenly, AICD placement for indications of primary and secondary pr evention have not been strong supported by expert guidelines due to lack of evidence that such a device improves prognosis in this disease entity. Plan for implantation of dual-chamber permanent pacemaker, likely this admission. Case discussed with Dr. Gannon of electrophysiology with regards to consideration of pacemaker when scheduling permits. Admission and Anticipated Discharge Date Admission Date: January 07, 2023 Subjective Patient seen in cardiology follow-up. Still notes mild occasional abdominal discomfort, but much improved compared to when she arrived to the hospital. Telemetry at the time my assessment revealed sinus bradycardia with first-degree AV block in the 50s. Low QRS voltage noted on EKG consistent with her history of amyloid cardiomyopathy. Patient has had recurrent episodes of atrial fibrillation today from 5 to 6 AM, and again from 7:48 AM until 8:47 AM. Physical Exam Constitutional: WD/WN, vitals as above no acute distress ENMT: external ear and nose normal, oropharynx normal Neck: normal visual inspection and trachea midline Respiratory: normal respiratory effort, lungs clear to auscultation Cardiovascular: RRR, no murmur, no edema Rate/Rhythm: regular rate and regular rhythm Heart Sounds: normal S1, normal S2 and + murmur Vessels: no JVD Extremities: no edema Gastrointestinal (Abdomen): Inspection/Auscultation: abdomen normal to inspection and normal bowel sounds; abdomen not distended Percussion/Palpation: + abdomen tender and abdomen soft Musculoskeletal: no cyanosis or clubbing, extremities motor strength 5/5 Skin: no rashes, warm and dry Psychiatric: A+Ox3, euthymic affect Results & Data Vital Signs (Past 12 Hours) Vital Signs Temp Pulse Pulse Resp BP Pulse Ox O2 Del Method 01/12/23 12:41 36.3 C L 94 H 18 127/80 92 Room Air 01/12/23 09:44 Room Air, Nasal Cannula 01/12/23 07:38 36.7 C 53 L 18 95/54 L 95 Nasal Cannula 01/12/23 07:38 53 L 01/12/23 03:10 36.6 C 133 H 18 106/68 93 Nasal Cannula O2 Flow Rate 01/12/23 12:41 01/12/23 09:44 2 01/12/23 07:38 1 01/12/23 07:38 01/12/23 03:10 2
[2023-01-12] MEDS: POLYETHYLENE (MIRALAX) 17 GM PACK PO SCH (14:20)
[2023-01-12] MEDS: guaiFENesin 600 MG TABCR PO SCH (21:09)
[2023-01-13] MEDS ORDERED: MIDODRINE HCL 2.5 MG TAB PO STA (00:46)
[2023-01-13] MEDS: ACETAMINOPHEN 500 MG TAB PO PRN ×2 (00:57→12:47)
[2023-01-13] MEDS: SUCRALFATE 1 GM/10 ML UDC PO PRN ×2 (00:58→08:42)
[2023-01-13] MEDS: MIDODRINE HCL 2.5 MG TAB PO SCH ×3 (06:04→17:22)
[2023-01-13 06:32] LABS: Hematocrit (blood only) 41.5 % (37.0-47.0); Hemoglobin 13.3 g/dl (12.0-16.0); Mean Corpuscular Hemoglobin 29.2 pg (25.0-34.0); Mean Corpuscular Volume 91.2 fL (80.0-100.0); Platelet Count 154 K/uL (130-400); RDW Coefficient of Variation 16.6 % (11.5-14.5); RDW Standard Deviation 54.1 fL (36.4-46.3); Red Blood Count 4.55 M/uL (4.20-5.40); White Blood Count 4.15 K/ul (4.8-10.8)
[2023-01-13 07:14] LABS: Albumin Level 3.1 gm/dl (3.4-5.0); BUN Creatinine Ratio 24.4 (10-20); Bilirubin Direct 0.1 mg/dl (0-0.2); Bilirubin,Total 0.9 mg/dl (0.2-1.0); Calcium 8.9 mg/dl (8.6-10.3); Creatinine Clr Calc Pharmacy 103.3 ml/min; Est GFR (African American) 116.3 ml/min; Est GFR (Non-African American) 100.4 ml/min; Potassium 4.2 mmol/L (3.5-5.1); Total Protein 7.2 gm/dl (6.0-8.3)
[2023-01-13 07:29] LABS: Magnesium 1.9 mg/dl (1.7-2.4)
[2023-01-13] MEDS: POLYETHYLENE (MIRALAX) 17 GM PACK PO SCH (08:39)
[2023-01-13] MEDS: CYANOCOBALAMIN (B-12) 500 MCG TABLET PO SCH (08:41)
[2023-01-13] MEDS: FLUTICASONE PROPIONATE NA SPR 16 GM BTL SCH (08:41)
[2023-01-13] MEDS: ASPIRIN 81 MG ECTAB PO SCH (08:41)
[2023-01-13] MEDS: guaiFENesin 600 MG TABCR PO SCH ×2 (08:41→20:20)
[2023-01-13] MEDS: PANTOprazole 40 MG TAB PO SCH ×2 (08:42→20:20)
--- NOTE | 2023-01-13 09:47 | Hospitalist Progress Note ---
Date of Service January 13, 2023 Assessment & Plan (1) Abdominal pain: Plan: Choledocholithiasis without acute cholecystitis -Seen by surgery and GI. 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 Multiple tiny gallstones. Mild ascites. Mild constipation. Diverticulosis with no signs of diverticulitis.No acute appendicitis or bowel obstruction. Fibromatous uterus otherwise incompletely characterized. If indicated, this can be further assessed with MRI or ultrasound of the pelvis in nonacute setting. --Gall Bladder USD:Right-sided pleural effusion with fluid within Morison's pouch.Multiple gallstones with mild pericholecystic fluid and borderline thickening of the wall, cannot exclude acute cholecystitis although findings are nonspecific in the context of fluid overload. If indicated, recommend follow-up with HIDA scan for further evaluation. Borderline prominence of the common bile duct as described, remainder of the right upper quadrant ultrasound unremarkable. --HIDA:No evidence for acute cholecystitis. Delayed visualization of activity within the common bile duct and nonvisualization of small bowel activity. These findings are nonspecific and differential considerations include sphincter dysfunction, spasm or partial common bile duct obstruction. Findings could be correlated with liver function tests. --MRCP:Cholelithiasis with a mildly distended and thick-walled gallbladder. Given the normal hepatobiliary scan acute cholecystitis is considered unlikely, and this is likely related to adjacent hepatocellular disease/ascites.There is dilatation of the common bile duct with choledocholithiasis. Enlarged heterogeneous liver. Splenomegaly. Moderate pleural effusions. Abdominal ascites. EGD findings: Impression: - Normal esophagus. - Large hiatal hernia. - A retained endoclip and Padlock clip was found in the stomach. - Non-bleeding gastric ulcer with no stigmata of bleeding. - Normal duodenal bulb and second portion of the duodenum. - No specimens collected. Recommendation:- Use a proton pump inhibitor PO BID for 3 months. - Repeat upper endoscopy in 2 months to check healing and biopsy the ulcer area. ERCP finding: Choledocholithiasis was found and complete removal was accomplished by biliary sphincterotomy and balloon extraction. 1 plastic biliary stent was placed into common bile duct. Recommendation-repeat ERCP in 2 months to remove stent, at that time we will perform EUS guided gallbladder drainage using actual stent as patient deemed a nonsurgical candidate. -No anticoagulation for 5 days Paroxysmal atrial fibrillation, NSVT H/O cardiac amyloidosis -Cardiology following. -Monitor on telemetry. -Keep electrolytes at goal. -As patient has cardiac amyloidosis, medication use is limited with poor tolerance due to bradycardia -Per cardiology, continue to monitor off of AV fredo blockers and anticoagulation. -Pacemaker placed 01/13 Chronic diastolic heart failure Valvular heart disease Pulmonary hypertension Bilateral pleural effusion --ECHO 11/22/22: Left ventricle cavity is small. Severe concentric LVH. EF 60 t o 65%. Mild mitral regurgitation. Severe tricuspid regurgitation. Estimated systolic pulmonary pressure is 43 mmHg. Dilated IVC with normal respiratory variation suggestive of right atrial pressure of 8 mmHg. Grade 3 diastolic dysfunction. --CTA:No distinct pulmonary embolus with suboptimally opacified mid distal branches of the left lower lobe pulmonary arteries in a homogeneous pattern, likely related to decreased flow velocity from diffuse cardiac congestion. Significant cardiomegaly with vascular congestion and prominent bilateral pleural effusions. Bilateral lower lobe atelectasis versus residual infiltrates with lingular atelectasis. -Received doses of iv lasix. Also on mucinex. Chronic hypotension Continue midodrine-increased to 2.5 mg 3 times daily H/O Multiple myeloma S/P Chemotherapy Follows with oncology as outpatient Prediabetes HbA1c 6.0 Suspected subclinical hypothyroidism Elevated TSH, normal T4 We will need to repeat thyroid function tests as outpatient Fibromatous uterus Incidental finding on CT Will need to follow-up with WINDOWS SYSTEMS ENGINEER as outpatient DVT Px: Heparin SQ Dispo: Pending medical stability, per cardiology Admission and Anticipated Discharge Date Admission Date: January 07, 2023 Subjective Pt seen before her pacemaker placement. stated that she was having abdominal bloating, had tried eating the night prior and feels like it caused her symptoms as she was not hungry when she ate. Previously tolerated her meal before that. Denied N/V. Review of Systems Review of Systems: All systems reviewed & are unremarkable except as noted in Subjective Physical Exam Physical Exam: General: Alert, oriented. No acute distress Skin: No noted rashes or bruises Psych: Appropriate mood and affect Neuro: No gross deficits HEENT: NC/AT Chest: Nontender to palpation. CV: RRR Resp: Breath sounds clear bilaterally, no increased effort of breathing. Abdomen: Soft, mild bloating with mild tenderness on exam Results & Data Results & Data Vital Signs (Past 12 Hours) Vital Signs Temp Pulse Pulse Resp BP Pulse Ox O2 Del Method 01/13/23 08:05 36.5 C 55 L 18 111/72 91 Room Air 01/13/23 03:07 36.6 C 56 L 16 104/60 92 Room Air 01/13/23 00:47 42 L 01/13/23 00:35 53 L 96/59 L 01/12/23 22:28 36.8 C 64 18 116/45 L 92 Room Air
[2023-01-13] MEDS ORDERED: LIDOCAINE 1% LOCAL 20 ML VIAL ONE (14:12)
[2023-01-13] MEDS ORDERED: WATER, STERILE FOR INJ 10 ML VIAL ONE (14:13)
[2023-01-13] MEDS ORDERED: VANCOMYCIN HCL 1000MG/20ML VIAL ONE (14:13)
[2023-01-13] MEDS ORDERED: BUPIVACAINE 0.25% PF 30 ML VIAL ONE (14:13)
--- NOTE | 2023-01-13 15:35 | History & Physical Bridge Note ---
Date of Service January 13, 2023 History & Physical Bridge Note I have examined the patient, reviewed the History & Physical and in the interval since the performance of the cardiology consultation and I have noted the following changes of clinical significance: no changes noted. I reviewed the indications, procedure, risks and alternatives with the patient, and answered all questions. Patient understands and agrees to the procedure. Consent obtained. I also reviewed the risks and use of sedation, patient understands and consent obtained.
--- NOTE | 2023-01-13 15:36 | Pre Anesthesia Assessment ---
Date of Service January 13, 2023 Pre Sedation Assessment Vital Signs Temp Pulse Pulse Resp BP BP BP 01/13/23 14:55 55 L 16 123/78 01/13/23 13:40 36.8 C 54 L 18 109/62 01/13/23 12:48 36.6 C 108 H 20 127/68 01/13/23 07:18 57 L 01/13/23 08:05 36.5 C 55 L 18 111/72 01/13/23 03:07 36.6 C 56 L 16 104/60 01/13/23 00:47 42 L 01/13/23 00:35 53 L 96/59 L 01/12/23 22:28 36.8 C 64 18 116/45 L 01/12/23 19:20 36.6 C 118 H 18 107/71 01/12/23 15:57 62 01/12/23 15:53 36.5 C 138 H 18 111/73 Pulse Ox O2 Del Method 01/13/23 14:55 97 Room Air 01/13/23 13:40 93 Room Air 01/13/23 12:48 98 Room Air 01/13/23 07:18 01/13/23 08:05 91 Room Air 01/13/23 03:07 92 Room Air 01/13/23 00:47 01/13/23 00:35 01/12/23 22:28 92 Room Air 01/12/23 19:20 93 Room Air 01/12/23 15:57 01/12/23 15:53 95 Room Air Cardiovascular + bradycardic and + irregularly irregular Respiratory normal respiratory effort, lungs clear to auscultation Pre-Sedation Airway Assessment Smoking Status: Never smoker Hx Sleep Apnea: No Short, Thick Neck: No Thyromental Distance: > or= 3.5 Finger Breadths Oral Cavity: + WNL Mallampati Class: II ASA: ASA3 NPO Status Date of Last Intake of Fluids: 01/12/23 Date of Last Intake of Solid Food: 01/12/23 Procedure Planning Contraindications for Sedation: none Current Medications Reviewed: Yes Notes The planned sedation has been discussed with the patient. Informed Consent was obtained. I have identified the patient, determined the appropriateness of sedation and have assessed the patient immediately prior to the procedure. All medicine(s) and interventions are by my order.
[2023-01-13] MEDS ORDERED: ceFAZolin 330 MG/ML 1 GM VIAL ONE (15:41)
[2023-01-13] MEDS ORDERED: fentaNYL citrate PF 100 MCG/2 ML VIAL ONE (15:41)
[2023-01-13] MEDS ORDERED: MIDAZOLAM HCL 5 MG/ML 1 ML VIAL ONE (15:41)
[2023-01-13] MEDS ORDERED: ACETAMINOPHEN W/CODEINE #3 1 TAB PO PRN (17:18)
--- NOTE | 2023-01-13 17:18 | Electrophysiology Report ---
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 The left prepectoral region was anesthetized with 1% lidocaine local anesthetic and left axillary venipuncture was performed by percutaneous technique and a guidewire placed through the left subclavian vein into the superior vena cava. The area was further infiltrated with 1% lidocaine local anesthetic and a 5 cm incision was made parallel to the left clavicle and 2 cm below it and carried down to the anterior pectoralis fascia. A pacemaker pocket was formed by blunt dissection anterior to the pectoralis fascia and a vancomyci n-soaked sponge was placed in the pocket. An 8.5 [place] Medtronic lead introducer was placed over the guidewire into the left subclavian vein, the dilator and guidewire were removed and a bipolar act saray fixation steroid tipped atrial lead was advanced through the introducer into the superior vena cava. A guidewire was placed through the introducer and the introducer was stripped from the lead and guidewire. A 7 [place] Medtronic lead introducer was placed over the guidewire into the left subclavian vein, the dilator and guidewire were removed. A C315 His 02 septal sheath was advanced through the introducer over a guidewire and advanced into the right ventricular outflow tract. The guidewire and dilator were removed and the sheath was positioned in a mid septal location. A bipolar active fixation steroid tipped ventricular lead was advanced through the introducer and rotated to advance the screw into the septum. Septal penetration was confirmed by electrical parameters. Pacing and sensing thresholds were evaluated in bipolar configuration and are noted on the data sheet. The septal sheath was stripped away from the lead. A guidewire was placed back through the introducer and the introducer was removed over the the guidewire. The atrial lead was then removed from the right ventricle. Using a curved stylette the atrial lead was positioned in the region of the atrial appendage and the screw extended fixing the lead in position. Pacing and sensing thresholds were evaluated in bipolar configuration and are recorded on the implant data sheet. Once the leads were in position they were attached to the anterior pectoralis fascia using 2 sutures of 2-0 silk around each lead collar. The vancomycin soaked sponge was removed from the pocket, hemostasis was obtained, the pa cemaker was attached to the leads and placed in the pocket with the leads coiled beneath it. The incision was closed with a running double subcutaneous closure of 3-0 Vicryl absorbable suture, followed by running subcuticular skin closure of 4-0 Vicryl absorbable suture. Bacitracin ointment was placed on the incision and a dressing applied. [facility] Electrophysiology codes Indication for Procedure (1) Tachy-walker syndrome: Pacing Procedure 1: Pacin Insert/Replace Pacer A & V PG Moderate Sedation Codes Moderate Sedation Codes Procedure 1: Sedation/Anesthesia: 02213 Mod Sedation by the same physician;Init15 Min Child Age 5 & Up Procedure 2: Sedation/Anesthesia: 13729 Mod Sedation by the same physician; Ea [id number] Minutes
[2023-01-13] MEDS ORDERED: AMIODARONE 200 MG TAB PO ONE (18:00)
--- NOTE | 2023-01-13 18:04 | Communication Note ---
Date of Service: January 13, [address] Gannon post pacemaker. Majority of tachycardia appears to be an atrial tachycardia. Even with pacemaker for heart rate support, I have concerns pt will not tolerate beta deneen with noted chronic low BP. Start trial of low dose amiodarone 200 mg BID. LFTs normal. TSH mildly elevated.
--- NOTE | 2023-01-13 18:19 | Cardiology Progress Note ---
Date of Service January 13, 2023 Assessment & Plan Admission and Anticipated Discharge Date Admission Date: January 07, 2023 Supervising Physician Co-Signing Physician Notes 77 yo woman presenting with choledocholithiasis Hx of (1) Paroxysmal atrial fibrillation: (2) Cardiac amyloidosis: (3) Chronic heart failure with preserved ejection fraction (HFpEF) Pt underwent pacemaker placement No complications noted Discussed new cardiac amyloid trials and the potential for her to participate Unclear if she has TTR or [place] Amyloid Would consider having patient connect with Dr Odin Lyon re: possibilities to participate in Antibody trials Case discussed with Dr. Gannon of electrophysiology with regards to consideration of pacemaker when scheduling permits Subjective Events overnight: None reported Review of Systems Review of Systems: All systems reviewed & are unremarkable except as noted in HPI & below Physical Exam Physical Exam: No elevation in JVP S1S2 CTA B No LE edema Warm and perfusing Results & Data Vital Signs (Past 12 Hours) Vital Signs Temp Pulse Pulse Resp BP BP BP 01/13/23 18:04 70 124/69 01/13/23 17:34 70 118/69 01/13/23 17:19 70 107/59 L 01/13/23 14:55 55 L 16 123/78 01/13/23 13:40 36.8 C 54 L 18 109/62 01/13/23 12:48 36.6 C 108 H 20 127/68 01/13/23 07:18 57 L 01/13/23 08:05 36.5 C 55 L 18 111/72 Pulse Ox O2 Del Method 01/13/23 18:04 01/13/23 17:34 01/13/23 17:19 01/13/23 14:55 97 Room Air 01/13/23 13:40 93 Room Air 01/13/23 12:48 98 Room Air 01/13/23 07:18 01/13/23 08:05 91 Room Air Laboratory Results Cardiac Enzymes 01/13/23 Range/Units 06:15 AST 29 (13-39) U/L CBC 01/13/23 Range/Units 06:15 WBC 4.15 L (4.8-10.8) K/ul RBC 4.55 (4.20-5.40) M/uL Hgb 13.3 (12.0-16.0) g/dl Hct 41.5 (37.0-47.0) % Plt Count 154 (130-400) K/uL Comprehensive Metabolic Panel 01/13/23 Range/Units 06:15 Sodium 136 (136-145) mmol/L Potassium 4.2 (3.5-5.1) mmol/L Chloride 107 (98-107) mmol/L Carbon Dioxide 23 (21-32) mmol/L BUN 10 (6-23) mg/dl Creatinine 0.41 L (0.6-1.2) mg/dl Glucose 100 H (70-99(Fasting)) mg/dl Calcium 8.9 (8.6-10.3) mg/dl Direct Bilirubin 0.1 (0-0.2) mg/dl AST 29 (13-39) U/L ALT 30 (7-52) U/L Alkaline Phosphatase 134 H (34-104) U/L Total Protein 7.2 (6.0-8.3) gm/dl Albumin 3.1 L (3.4-5.0) gm/dl Intake and Output 01/13/23 01/13/23 01/13/23 06:59 14:59 22:59 Intake Total 0 / 0 Balance 0 / 0 Intake: Other 0 / 0 Other: Other Intake Source sip with meds # Unmeasured Voids 1 4 Weight 65 kg Weight Measurement Method Built in [facility] Medications Administered Current Inpatient Medications Acetaminophen (Acetaminophen 500 Mg Tab) 500 mg PO Q6H PRN PRN Reason: fever/pain Stop: 02/07/23 00:03 Last Admin: 01/13/23 12:47 Dose: 500 mg Acetaminophen (Acetaminophen 325 Mg Tab) 650 mg PO Q4H PRN PRN Reason: Mild pain (rating 1,2,3) Stop: 02/12/23 17:17 Acetaminophen/Codeine Phosphate (Acetaminophen W/Codeine #3 1 Tab) 1 - 2 tab PO Q4H PRN PRN Reason: Moderate-Severe Pain Stop: 02/12/23 17:17 Amiodarone HCl (Amiodarone 200 Mg Tab) 200 mg PO BIDM [facility] Stop: 02/14/23 07:59 Aspirin (Aspirin 81 Mg Ectab) 81 mg PO QAM [facility] Stop: 02/07/23 08:59 Last Admin: 01/13/23 08:41 Dose: 81 mg Bisacodyl (Bisacodyl 10 Mg Supp) 10 mg LA DAILY PRN PRN Reason: Constipation Stop: 02/08/23 16:55 Last Admin: 01/09/23 17:10 Dose: 10 mg Cyanocobalamin (Cyanocobalamin (B-12) 500 Mcg Tablet) 1,000 mcg PO QAM RYANN Stop: 02/07/23 08:59 Last Admin: 01/13/23 08:41 Dose: 1,000 mcg Docusate Sodium (Docusate Sodium 100 Mg Cap) 100 mg PO BID PRN PRN Reason: Constipation Stop: 02/07/23 12:59 Last Admin: 01/11/23 14:53 Dose: 100 mg Fluticasone Propionate (Fluticasone Propionate Na Spr 16 Gm Btl) 1 sprays NA DAILY RYANN Stop: 02/10/23 12:44 Last Admin: 01/13/23 08:41 Dose: 1 sprays Guaifenesin (Guaifenesin 600 Mg Tabcr) 600 mg PO Q12 RYANN Stop: 02/11/23 20:59 Last Admin: 01/13/23 08:41 Dose: 600 mg Heparin Sodium (Porcine) (Heparin Sod 5,000 Unit/0.5 Ml Vial) 5,000 units SQ Q12 RYANN Stop: 02/07/23 20:59 Last Admin: 01/12/23 21:09 Dose: Not Given Promethazine HCl 6.25 mg/ (Sodium Chloride) 50.25 mls @ 201 mls/hr IV Q6H PRN PRN Reason: Nausea And Vomiting Stop: 02/07/23 00:03 Last Infusion: 01/11/23 09:08 Dose: Infused Lorazepam (Lorazepam 0.5 Mg Tab) 0.25 mg PO TID PRN PRN Reason: Anxiety Stop: 02/07/23 00:03 Midodrine (Midodrine Hcl 2.5 Mg Tab) 2.5 mg PO DAILY@0700,1200,1800 RYANN Stop: 02/08/23 13:59 Last Admin: 01/13/23 17:22 Dose: 2.5 mg Morphine Sulfate (Morphine Sulfate 2 Mg/Ml Carp) 2 mg IV Q3H PRN PRN Reason: Pain Stop: 01/22/23 00:03 Last Admin: 01/10/23 16:17 Dose: 2 mg Pantoprazole Sodium (Pantoprazole 40 Mg Tab) 40 mg PO BID RYANN Stop: 02/09/23 20:59 Last Admin: 01/13/23 08:42 Dose: 40 mg Polyethylene Glycol (Polyethylene (Miralax) 17 Gm Pack) 17 gm PO DAILY PRN PRN Reason: Constipation Stop: 02/07/23 08:36 Last Admin: 01/12/23 08:10 Dose: 17 gm Polyethylene Glycol (Polyethylene (Miralax) 17 Gm Pack) 17 gm PO DAILY RYANN Stop: 02/11/23 13:44 Last Admin: 01/13/23 08:39 Dose: Not Given Sucralfate (Sucralfate 1 Gm/10 Ml Udc) 1 gm PO QID PRN PRN Reason: Gi Upset Stop: 02/07/23 01:25 Last Admin: 01/13/23 08:42 Dose: 1 gm Tramadol HCl (Tramadol Hcl 50 Mg Tablet) 25 - 50 mg PO Q4H PRN PRN Reason: Pain Stop: 02/07/23 00:03 Last Admin: 01/11/23 20:07 Dose: 50 mg
[2023-01-13] MEDS: ACETAMINOPHEN 325 MG TAB PO PRN (19:40)
[2023-01-14] MEDS: ACETAMINOPHEN 325 MG TAB PO PRN (06:17)
[2023-01-14] MEDS: MIDODRINE HCL 2.5 MG TAB PO SCH ×3 (06:18→17:38)
[2023-01-14] MEDS: SUCRALFATE 1 GM/10 ML UDC PO PRN ×2 (06:19→21:06)
[2023-01-14 06:48] LABS: Basophils # (auto) 0.02 K/uL (0.00-0.20); Basophils % (auto) 0.4 %; Eosinophils # (auto) 0.06 K/uL (0.00-0.50); Eosinophils % (auto) 1.3 %; Hematocrit (blood only) 38.9 % (37.0-47.0); Hemoglobin 12.4 g/dl (12.0-16.0); Immature Granulocytes # (auto) 0.02 K/uL (0.01-0.20); Immature Granulocytes % (auto) 0.4 %; Lymphocytes # (auto) 0.47 K/uL (1.20-3.40); Lymphocytes % (auto) 10.2 %; Mean Corpuscular Hemoglobin 29.5 pg (25.0-34.0); Mean Corpuscular Hgb Conc 31.9 g/dL (32.0-36.0); Mean Corpuscular Volume 92.4 fL (80.0-100.0); Mean Platelet Volume 11.8 fL (9.4-12.4); Monocytes # (auto) 0.44 K/uL (0.11-0.59); Monocytes % (auto) 9.6 %; Neutrophils # (auto) 3.59 K/uL (1.40-6.50); Neutrophils % (auto) 78.1 %; Platelet Count 126 K/uL (130-400); RDW Coefficient of Variation 16.7 % (11.5-14.5); RDW Standard Deviation 54.8 fL (36.4-46.3); Red Blood Count 4.21 M/uL (4.20-5.40)
[2023-01-14 07:18] LABS: Albumin Globulin Ratio 0.7 (0.9-2); BUN Creatinine Ratio 23.7 (10-20); Bilirubin,Total 0.8 mg/dl (0.2-1.0); Calcium 8.6 mg/dl (8.6-10.3); Est GFR (African American) 119.3 ml/min; Est GFR (Non-African American) 102.9 ml/min; Globulin 4.3 gm/dl (2.5-4.0); Magnesium 1.9 mg/dl (1.7-2.4); Phosphorus 3.5 mg/dl (2.5-4.9); Potassium 3.9 mmol/L (3.5-5.1); Total Protein 7.3 gm/dl (6.0-8.3)
--- NOTE | 2023-01-14 07:27 | XRay Report ---
XR chest 2V PA/lateral HISTORY: 77 years-old Female EXACT TIME ORDERED Evaluate for pneumothorax and l status post placemen t of a left subclavian pacer COMPARISON: 01/07/2023 TECHNIQUE: PA and lateral views of the chest FINDINGS: A hiatal hernia is noted. A radiodensity within the intrathoracic portion of the stomach remains unch anged. This is indeterminate although likely reflects an endoscopic clip/device. Cardiac silhouette is enlarged. Status post placement of a left dual-lead left subclavian pacer. Ther e is a small postprocedural left apical pneumothorax with pleural separation of 1.1 cm. Pulmonary yamila ma with layering pleural effusions and bibasilar consolidation. Bones appear grossly intact. IMPRESSION: 1. Status post placement of a dual lead left subclavian pacer. 2. There is a small postprocedure left apical pneumothorax. 3. Cardiomegaly with pulmonary edema, layering pleural effusions and bibasilar consolidation. ACT 112: Negative or not required by law. The above report was generated using voice recognition software. It may contain grammatical, syntax o r spelling errors. Electronically signed by: Jerzy Barton M.D. 01/14/2023 7:26 AM
--- NOTE | 2023-01-14 07:59 | Cardiology Progress Note ---
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 Gannon of electrophysiology Plans to follow up Dr Molina of [facility] Please call back with any additional questions Oleg Munoz Subjective Events Overight: A- Paced Small Left Apical PTX Subjective: No complaints Review of Systems Review of Systems: All systems reviewed & are unremarkable except as noted in HPI & below Physical Exam Physical Exam: No elevation in JVP S1S2 CTA B No LE edema Warm and perfusing Results & Data Vital Signs (Past 12 Hours) Vital Signs Temp Pulse Pulse Pulse Resp BP Pulse Ox 01/14/23 07:36 36.3 C L 115 H 18 101/64 91 01/14/23 04:09 36.5 C 131 H 20 104/68 92 01/13/23 23:00 69 01/13/23 22:31 36.3 C L 70 18 123/72 90 01/13/23 21:30 72 111/67 01/13/23 20:30 70 119/73 O2 Del Method 01/14/23 07:36 Room Air 01/14/23 04:09 Room Air 01/13/23 23:00 01/13/23 22:31 Room Air 01/13/23 21:30 01/13/23 20:30 Laboratory Results Cardiac Enzymes 01/14/23 Range/Units 05:57 AST 24 (13-39) U/L CBC 01/14/23 Range/Units 05:57 WBC 4.60 L (4.8-10.8) K/ul RBC 4.21 (4.20-5.40) M/uL Hgb 12.4 (12.0-16.0) g/dl Hct 38.9 (37.0-47.0) % Plt Count 126 L (130-400) K/uL Neut # (Auto) 3.59 (1.40-6.50) K/uL Lymph # (Auto) 0.47 L (1.20-3.40) K/uL [place] # (Auto) 0.44 (0.11-0.59) K/uL Eos # (Auto) 0.06 (0.00-0.50) K/uL Baso # (Auto) 0.02 (0.00-0.20) K/uL Comprehensive Metabolic Panel 01/14/23 Range/Units 05:57 Sodium 136 (136-145) mmol/L Potassium 3.9 (3.5-5.1) mmol/L Chloride 106 (98-107) mmol/L Carbon Dioxide 24 (21-32) mmol/L BUN 9 (6-23) mg/dl Creatinine 0.38 L (0.6-1.2) mg/dl Glucose 86 (70-99(Fasting)) mg/dl Calcium 8.6 (8.6-10.3) mg/dl AST 24 (13-39) U/L ALT 22 (7-52) U/L Alkaline Phosphatase 115 H (34-104) U/L Total Protein 7.3 (6.0-8.3) gm/dl Albumin 3.0 L (3.4-5.0) gm/dl Intake and Output 01/13/23 01/14/23 01/14/23 22:59 06:59 14:59 Intake Total 200 / 300 100 / 300 Output Total 150 / 651 501 / 651 Balance 50 / -351 -401 / -351 Intake: Oral 200 / 300 100 / 300 Output: Urine 150 / 650 500 / 650 # Bowel Movements Other: Weight 63.2 kg Weight Measurement Method Built in [facility] Diagnostic Findings CXR: 01-14-2023 IMPRESSION: 1. Status post placement of a dual lead left subclavian pacer. 2. There is a small postprocedure left apical pneumothorax. 3. Cardiomegaly with pulmonary edema, layering pleural effusions and bibasilar consolidation. Medications Administered Current Inpatient Medications Acetaminophen (Acetaminophen 500 Mg Tab) 500 mg PO Q6H PRN PRN Reason: fever/pain Stop: 02/07/23 00:03 Last Admin: 01/13/23 12:47 Dose: 500 mg Acetaminophen (Acetaminophen 325 Mg Tab) 650 mg PO Q4H PRN PRN Reason: Mild pain (rating 1,2,3) Stop: 02/12/23 17:17 Last Admin: 01/14/23 06:17 Dose: 650 mg Acetaminophen/Codeine Phosphate (Acetaminophen W/Codeine #3 1 Tab) 1 - 2 tab PO Q4H PRN PRN Reason: Moderate-Severe Pain Stop: 02/12/23 17:17 Amiodarone HCl (Amiodarone 200 Mg Tab) 200 mg PO BIDM [facility] Stop: 02/14/23 07:59 Aspirin (Aspirin 81 Mg Ectab) 81 mg PO QAM [facility] Stop: 02/07/23 08:59 Last Admin: 01/13/23 08:41 Dose: 81 mg Bisacodyl (Bisacodyl 10 Mg Supp) 10 mg [place] DAILY PRN PRN Reason: Constipation Stop: 02/08/23 16:55 Last Admin: 01/09/23 17:10 Dose: 10 mg Cyanocobalamin (Cyanocobalamin (B-12) 500 Mcg Tablet) 1,000 mcg PO QAM [facility] Stop: 02/07/23 08:59 Last Admin: 01/13/23 08:41 Dose: 1,000 mcg Docusate Sodium (Docusate Sodium 100 Mg Cap) 100 mg PO BID PRN PRN Reason: Constipation Stop: 02/07/23 12:59 Last Admin: 01/11/23 14:53 Dose: 100 mg Fluticasone Propionate (Fluticasone Propionate Na Spr 16 Gm Btl) 1 sprays NA DAILY [facility] Stop: 02/10/23 12:44 Last Admin: 01/13/23 08:41 Dose: 1 sprays Guaifenesin (Guaifenesin 600 Mg Tabcr) 600 mg PO Q12 [facility] Stop: 02/11/23 20:59 Last Admin: 01/13/23 20:20 Dose: 600 mg Heparin Sodium (Porcine) (Heparin Sod 5,000 Unit/0.5 Ml Vial) 5,000 units SQ Q12 RYANN Stop: 02/07/23 20:59 Last Admin: 01/12/23 21:09 Dose: Not Given Promethazine HCl 6.25 mg/ (Sodium Chloride) 50.25 mls @ 201 mls/hr IV Q6H PRN PRN Reason: Nausea And Vomiting Stop: 02/07/23 00:03 Last Infusion: 01/11/23 09:08 Dose: Infused Lorazepam (Lorazepam 0.5 Mg Tab) 0.25 mg PO TID PRN PRN Reason: Anxiety Stop: 02/07/23 00:03 Midodrine (Midodrine Hcl 2.5 Mg Tab) 2.5 mg PO DAILY@0700,1200,1800 RYANN Stop: 02/08/23 13:59 Last Admin: 01/14/23 06:18 Dose: 2.5 mg Morphine Sulfate (Morphine Sulfate 2 Mg/Ml Carp) 2 mg IV Q3H PRN PRN Reason: Pain Stop: 01/22/23 00:03 Last Admin: 01/10/23 16:17 Dose: 2 mg Pantoprazole Sodium (Pantoprazole 40 Mg Tab) 40 mg PO BID RYANN Stop: 02/09/23 20:59 Last Admin: 01/13/23 20:20 Dose: 40 mg Polyethylene Glycol (Polyethylene (Miralax) 17 Gm Pack) 17 gm PO DAILY PRN PRN Reason: Constipation Stop: 02/07/23 08:36 Last Admin: 01/12/23 08:10 Dose: 17 gm Polyethylene Glycol (Polyethylene (Miralax) 17 Gm Pack) 17 gm PO DAILY RYANN Stop: 02/11/23 13:44 Last Admin: 01/13/23 08:39 Dose: Not Given Sucralfate (Sucralfate 1 Gm/10 Ml Udc) 1 gm PO QID PRN PRN Reason: Gi Upset Stop: 02/07/23 01:25 Last Admin: 01/14/23 06:19 Dose: 1 gm Tramadol HCl (Tramadol Hcl 50 Mg Tablet) 25 - 50 mg PO Q4H PRN PRN Reason: Pain Stop: 02/07/23 00:03 Last Admin: 01/11/23 20:07 Dose: 50 mg
--- NOTE | 2023-01-14 08:01 | Cardiology Progress Note ---
Date of Service January 13, 2023 Assessment & Plan Admission and Anticipated Discharge Date Admission Date: January 07, 2023 Supervising Physician Co-Signing Physician Notes Note Started in Error Full note for 01-13-2023 signed and in EMR g Results & Data Vital Signs (Past 12 Hours) Vital Signs Temp Pulse Pulse Resp BP BP BP 01/13/23 18:04 70 124/69 01/13/23 17:34 70 118/69 01/13/23 17:19 70 107/59 L 01/13/23 14:55 55 L 16 123/78 01/13/23 13:40 36.8 C 54 L 18 109/62 01/13/23 12:48 36.6 C 108 H 20 127/68 01/13/23 07:18 57 L 01/13/23 08:05 36.5 C 55 L 18 111/72 Pulse Ox O2 Del Method 01/13/23 18:04 01/13/23 17:34 01/13/23 17:19 01/13/23 14:55 97 Room Air 01/13/23 13:40 93 Room Air 01/13/23 12:48 98 Room Air 01/13/23 07:18 01/13/23 08:05 91 Room Air
--- NOTE | 2023-01-14 08:08 | Electrocardiogram Report ---
Test Reason : Blood Pressure : / mmHG Vent. Rate : 071 BPM Atrial Rate : 045 BPM P-R Int : 292 ms QRS Dur : 142 ms QT Int : 466 ms P-R-T Axes : -14 125 -42 degrees QTc Int : 506 ms Atrial-paced rhythm with prolonged AV conduction Right bundle branch block Abnormal ECG When compared with ECG of 09-JAN-2023 01:34, Electronic atrial pacemaker has replaced Sinus rhythm Right bundle branch block is now Present Criteria for Septal infarct are no longer Present Confirmed by Chun Jamison ([id number] on 01/14/2023 8:08:26 AM Referred By: REFERRED SELF Confirmed By:Chun Jamison
[2023-01-14] MEDS: guaiFENesin 600 MG TABCR PO SCH ×2 (08:42→20:27)
[2023-01-14] MEDS: PANTOprazole 40 MG TAB PO SCH ×2 (08:42→20:27)
[2023-01-14] MEDS: FLUTICASONE PROPIONATE NA SPR 16 GM BTL SCH (08:42)
[2023-01-14] MEDS: POLYETHYLENE (MIRALAX) 17 GM PACK PO SCH (08:42)
[2023-01-14] MEDS: CYANOCOBALAMIN (B-12) 500 MCG TABLET PO SCH (08:42)
[2023-01-14] MEDS: ASPIRIN 81 MG ECTAB PO SCH (08:42)
--- NOTE | 2023-01-14 10:40 | Cardiology Progress Note ---
Date of Service January 14, 2023 Assessment & Plan (1) Status post placement of cardiac pacemaker: (2) Pneumothorax on left: (3) Tachy-walker syndrome: Plan 1. Pacemaker: Functioning well other than a somewhat low atrial lead impedance for unclear reasons. Pacing threshold is excellent, this should not be a clinical issue but will have to be followed. This is an unusual finding but does not justify lead revision at this point. 2. Pneumothorax: Small left apical pneumothorax presumably because at the time of vena puncture, no respiratory symptoms and certainly not large enough to warrant chest tube. I do not think she needs to remain in the hospital for this, I would recommend a repeat chest x-ray in 2 days, I can make those arrangements if she goes home. 3. Tachybradycardia syndrome: It was not clear what the specific arrhythmia causing her rapid rates was, we suspected atrial flutter however during the procedure she had brief periods of rapid heart rate which were atrial tachycardia, overnight on telemetry she had periods of rapid atrial rate (up to just under 150 bpm) which were not detected by the device which is set to detect over 150 bpm. This is appropriate device function and we are going to reprogram to allow detection of an atrial rate at a lower level to document this arrhythmia, although it is not always rapid enough to make it feasible to detect all of her episodes. There is no evidence of this being atrial fibrillation or atrial flutter. If we can detected as an atrial arrhythmia atrial overdrive settings may be helpful to terminate although it does spontaneously terminate fairly quickly and perhaps amiodarone would be a better option to minimize this. Admission and Anticipated Discharge Date Admission Date: January 07, 2023 Subjective From the cardiovascular standpoint she is feeling quite well, she has slight incisional discomfort but that would be expected and she has no chest discomfort or shortness of breath. She is complaining of some GI symptoms. She has had no palpitations. Physical Exam Physical Exam: Her incision is clean and dry, no swelling or erythema. Dressing changed. Cardiac rhythm is regular with no rub Lungs are clear Results & Data Vital Signs (Past 12 Hours) Vital Signs Temp Pulse Pulse Pulse Resp BP Pulse Ox 01/14/23 07:36 36.3 C L 115 H 18 101/64 91 01/14/23 04:09 36.5 C 131 H 20 104/68 92 01/13/23 23:00 69 O2 Del Method 01/14/23 07:36 Room Air 01/14/23 04:09 Room Air 01/13/23 23:00 Laboratory Results Cardiac Enzymes 01/14/23 Range/Units 05:57 AST 24 (13-39) U/L CBC 01/14/23 Range/Units 05:57 WBC 4.60 L (4.8-10.8) K/ul RBC 4.21 (4.20-5.40) M/uL Hgb 12.4 (12.0-16.0) g/dl Hct 38.9 (37.0-47.0) % Plt Count 126 L (130-400) K/uL Neut # (Auto) 3.59 (1.40-6.50) K/uL Lymph # (Auto) 0.47 L (1.20-3.40) K/uL [place] # (Auto) 0.44 (0.11-0.59) K/uL Eos # (Auto) 0.06 (0.00-0.50) K/uL Baso # (Auto) 0.02 (0.00-0.20) K/uL Comprehensive Metabolic Panel 01/14/23 Range/Units 05:57 Sodium 136 (136-145) mmol/L Potassium 3.9 (3.5-5.1) mmol/L Chloride 106 (98-107) mmol/L Carbon Dioxide 24 (21-32) mmol/L BUN 9 (6-23) mg/dl Creatinine 0.38 L (0.6-1.2) mg/dl Glucose 86 (70-99(Fasting)) mg/dl Calcium 8.6 (8.6-10.3) mg/dl AST 24 (13-39) U/L ALT 22 (7-52) U/L Alkaline Phosphatase 115 H (34-104) U/L Total Protein 7.3 (6.0-8.3) gm/dl Albumin 3.0 L (3.4-5.0) gm/dl Intake and Output 01/13/23 01/14/23 01/14/23 22:59 06:59 14:59 Intake Total 200 / 300 100 / 300 Output Total 150 / 651 501 / 651 Balance 50 / -351 -401 / -351 Intake: Oral 200 / 300 100 / 300 Output: Urine 150 / 650 500 / 650 # Bowel Movements Other: Weight 63.2 kg Weight Measurement Method Built in [facility] Diagnostic Findings Postop ECG: AV sequential pacing with capture Telemetry: Predominantly atrial pacing, some periods of atrial arrhythmia, probably PAT Chest x-ray: Small left apical pneumothorax, good lead position Pacemaker evaluation: No detected arrhythmias overnight (although she had some atrial tachycardia). Atrial impedance is low and P wave sensing is low, reason is not clear but pacing is excellent and there was no issue with lead placement to suggest mechanical damage. Would continue to observe as an outpatient. PG Care Time/CCT Total # of Minutes Spent Total Time Spent with Patient: Total time spent is greater than 50% in coordination of care (as documented) at patient's floor/unit and/or counseling patient: Coding Level of Care Code 81627 Post Operative Follow-Up Diagnoses Status post placement of cardiac pacemaker Z95.0 Pneumothorax on left J93.9 Tachy-walker syndrome I49.5 CPT Codes Dual Lead Pacemaker System - [id number] ([id number])
[2023-01-14] MEDS: AMIODARONE 200 MG TAB PO SCH ×2 (12:39→20:27)
--- NOTE | 2023-01-14 14:20 | XRay Report ---
KUB HISTORY: Acute generalized abdominal pain bloating, abdominal pain COMPARISON: CT 01/07/2023 FINDINGS: Nonobstructive bowel gas pattern. A common bile duct stent is in place, likely in satisfact ory positioning. Cardiomegaly with partially imaged pacer leads. Layering pleural effusions with biba silar consolidation. No renal calculi. No ureteral calculi. No pneumoperitoneum or pneumatosis. No f racture. IMPRESSION: Nonobstructive bowel gas pattern. ACT 112: Negative or not required by law. The above report was generated using voice recognition software. It may contain grammatical, syntax o r spelling errors. Electronically signed by: Jerzy Barton M.D. 01/14/2023 2:18 PM
[2023-01-14] MEDS: ACETAMINOPHEN 500 MG TAB PO PRN (15:24)
[2023-01-14] MEDS ORDERED: FUROSEMIDE INJ 20 MG/2 ML VIAL IV ONE (17:20)
[2023-01-14] MEDS ORDERED: SIMETHICONE 80 MG CHEW PO ONE (20:45)
[2023-01-15] MEDS: ACETAMINOPHEN 325 MG TAB PO PRN (00:09)
--- NOTE | 2023-01-15 03:05 | Hospitalist Progress Note ---
Date of Service January 14, 2023 Assessment & Plan (1) Abdominal pain: Plan: Choledocholithiasis without acute cholecystitis -Seen by surgery and GI. -Status post EGD and ERCP on 01/10-details below -Post ERCP patient had episodes of atrial fibrillation and required IV Lopressor with conversion to sinus rhythm -Follow-up labs shows improvement in LFTs -Tolerating low fat, HH diet without issues. 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 Multiple tiny gallstones. Mild ascites. Mild constipation. Diverticulosis with no signs of diverticulitis.No acute appendicitis or bowel obstruction. Fibromatous uterus otherwise incompletely characterized. If indicated, this can be further assessed with MRI or ultrasound of the pelvis in nonacute setting. --Gall Bladder USD:Right-sided pleural effusion with fluid within Morison's pouch.Multiple gallstones with mild pericholecystic fluid and borderline thickening of the wall, cannot exclude acute cholecystitis although findings are nonspecific in the context of fluid overload. If indicated, recommend follow-up with HIDA scan for further evaluation. Borderline prominence of the common bile duct as described, remainder of the right upper quadrant ultrasound unremarkable. --HIDA:No evidence for acute cholecystitis. Delayed visualization of activity within the common bile duct and nonvisualization of small bowel activity. These findings are nonspecific and differential considerations include sphincter dysfunction, spasm or partial common bile duct obstruction. Findings could be correlated with liver function tests. --MRCP:Cholelithiasis with a mildly distended and thick-walled gallbladder. Given the normal hepatobiliary scan acute cholecystitis is considered unlikely, and this is likely related to adjacent hepatocellular disease/ascites.There is dilatation of the common bile duct with choledocholithiasis. Enlarged heterogeneous liver. Splenomegaly. Moderate pleural effusions. Abdominal ascites. EGD findings: Impression: - Normal esophagus. - Large hiatal hernia. - A retained endoclip and Padlock clip was found in the stomach. - Non-bleeding gastric ulcer with no stigmata of bleeding. - Normal duodenal bulb and second portion of the duodenum. - No specimens collected. Recommendation:- Use a proton pump inhibitor PO BID for 3 months. - Repeat upper endoscopy in 2 months to check healing and biopsy the ulcer area. ERCP finding: Choledocholithiasis was found and complete removal was accomplished by biliary sphincterotomy and balloon extraction. 1 plastic biliary stent was placed into common bile duct. Recommendation-repeat ERCP in 2 months to remove stent, at that time we will perform EUS guided gallbladder drainage using actual stent as patient deemed a nonsurgical candidate. -No anticoagulation for 5 days Paroxysmal atrial fibrillation, NSVT H/O cardiac amyloidosis -Cardiology following. -Monitor on telemetry. -Keep electrolytes at goal. -As patient has cardiac amyloidosis, medication use is limited with poor tolerance due to bradycardia -Per cardiology, continue to monitor off of AV fredo blockers and anticoagulation. -Pacemaker placed 01/13- notes some issues with functioning, but does not need to be replaced per cardiology. Appreciate recs, Chronic diastolic heart failure Valvular heart disease Pulmonary hypertension Bilateral pleural effusion --ECHO 11/22/22: Left ventricle cavity is small. Severe concentric LVH. EF 60 to 65%. Mild mitral regurgitation. Severe tricuspid regurgitation. Estimated systolic pulmonary pressure is 43 mmHg. Dilated IVC with normal respiratory variation suggestive of right atrial pressure of 8 mmHg. Grade 3 diastolic dysfunction. --CTA:No distinct pulmonary embolus with suboptimally opacified mid distal branches of the left lower lobe pulmonary arteries in a homogeneous pattern, likely related to decreased flow velocity from diffuse cardiac congestion. Significant cardiomegaly with vascular congestion and prominent bilateral pleural effusions. Bilateral lower lobe atelectasis versus residual infiltrates with lingular atelectasis. -Received doses of iv lasix. Also on mucinex. 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 States she is not typically this bloated. Notes that she has been having bowel movements and passing gas however. States that she is not able to eat much, gets full quickly. Review of Systems Review of Systems: All systems reviewed & are unremarkable except as noted in Subjective Physical Exam Physical Exam: General: Alert, oriented. No acute distress Skin: No noted rashes or bruises Psych: Appropriate mood and affect Neuro: No gross deficits HEENT: NC/AT Chest: Nontender to palpation. CV: RRR Resp: Breath sounds clear bilaterally, no increased effort of breathing. Abdomen: Soft, mild bloating with mild tenderness on exam Results & Data Results & Data Vital Signs (Past 12 Hours) Vital Signs Temp Pulse Pulse Resp BP Pulse Ox O2 Del Method 01/14/23 07:36 36.3 C L 115 H 18 101/64 91 Room Air 01/14/23 04:09 36.5 C 131 H 20 104/68 92 Room Air
[2023-01-15] MEDS: MIDODRINE HCL 2.5 MG TAB PO SCH ×2 (06:28→11:56)
[2023-01-15 06:38] LABS: Basophils # (auto) 0.01 K/uL (0.00-0.20); Basophils % (auto) 0.3 %; Eosinophils # (auto) 0.07 K/uL (0.00-0.50); Eosinophils % (auto) 2.2 %; Hematocrit (blood only) 38.4 % (37.0-47.0); Hemoglobin 12.1 g/dl (12.0-16.0); Immature Granulocytes # (auto) 0.01 K/uL (0.01-0.20); Immature Granulocytes % (auto) 0.3 %; Lymphocytes # (auto) 0.48 K/uL (1.20-3.40); Mean Corpuscular Hemoglobin 29.2 pg (25.0-34.0); Mean Corpuscular Hgb Conc 31.5 g/dL (32.0-36.0); Mean Corpuscular Volume 92.5 fL (80.0-100.0); Mean Platelet Volume 11.9 fL (9.4-12.4); Monocytes # (auto) 0.35 K/uL (0.11-0.59); Monocytes % (auto) 10.9 %; Neutrophils # (auto) 2.28 K/uL (1.40-6.50); Neutrophils % (auto) 71.3 %; Platelet Count 117 K/uL (130-400); RDW Coefficient of Variation 16.7 % (11.5-14.5); RDW Standard Deviation 55.5 fL (36.4-46.3); Red Blood Count 4.15 M/uL (4.20-5.40)
[2023-01-15 06:58] LABS: Albumin Globulin Ratio 0.7 (0.9-2); BUN Creatinine Ratio 20.6 (10-20); Bilirubin,Total 0.9 mg/dl (0.2-1.0); Calcium 8.8 mg/dl (8.6-10.3); Creatinine Clr Calc Pharmacy 122.4 ml/min; Est GFR (African American) 123.7 ml/min; Est GFR (Non-African American) 106.7 ml/min; Globulin 4.3 gm/dl (2.5-4.0); Magnesium 1.9 mg/dl (1.7-2.4); Phosphorus 3.7 mg/dl (2.5-4.9); Potassium 3.6 mmol/L (3.5-5.1); Total Protein 7.3 gm/dl (6.0-8.3)
[2023-01-15] MEDS ORDERED: AMIODARONE 200 MG TAB PO SCH (08:00)
[2023-01-15] MEDS: CYANOCOBALAMIN (B-12) 500 MCG TABLET PO SCH (08:14)
[2023-01-15] MEDS: guaiFENesin 600 MG TABCR PO SCH (08:14)
[2023-01-15] MEDS: AMIODARONE 200 MG TAB PO SCH (08:14)
[2023-01-15] MEDS: PANTOprazole 40 MG TAB PO SCH (08:14)
[2023-01-15] MEDS: ASPIRIN 81 MG ECTAB PO SCH (08:14)
[2023-01-15] MEDS: FLUTICASONE PROPIONATE NA SPR 16 GM BTL SCH (08:14)
[2023-01-15] MEDS: POLYETHYLENE (MIRALAX) 17 GM PACK PO SCH (08:14)
--- NOTE | 2023-01-15 14:03 | Discharge Summary ---
Discharge Summary Date of Service January 15, 2023 Notes For Next Care Provider Per Cardiology, follow up on outpatient repeat chest XRAY ordered by Cardiology for small pneumothorax noted after pacemaker implantation Per GI, repeat EGD and ERCP in 2 months needed Med changes below Medication Changes From Visit Started on pantoprazole 40mg BID Amiodarone 200mg BID Midodrine dose changed to 2.5mg TID from 5mg qAM Discontinued home Lasix and potassium Admission HPI Per Admitting Provider History obtained from patient and records. Medical history significant for chronic diastolic heart failure (EF 60 to 65%, TTE 2022 ), valvular heart disease (mild MR/severe TR), NSVT, cardiac amyloidosis, hypotension on midodrine, pulmonary hypertension, multiple myeloma status post chemotherapy, cholelithiasis, past tobacco abuse. Last confinement October 2022 for complicated bronchitis and decompensated heart failure. Epigastric discomfort at time of admission. Gallstones on imaging. No cholecystitis as per General Surgery evaluation. Few days ago, patient noted bloatedness and fluid retention without unusual SOB symptoms. No chest pain. Admits to dietary indiscretion. Some improvement with home diuretic intake. Today, patient experienced severe upper achy belly pain after consuming pizza and soda. Some nausea, minimal emesis. No fever, no chills. A-fib noted at the ER. 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 -Status post EGD and ERCP on 01/10-details below -Post ERCP patient had episodes of atrial fibrillation and required IV Lopressor with conversion to sinus rhythm -Follow-up labs shows improvement in LFTs -Tolerating low fat, HH diet without issues. 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 Multiple tiny gallstones. Mild ascites. Mild constipation. Diverticulosis with no signs of diverticulitis.No acute appendicitis or bowel obstruction. Fibromatous uterus otherwise incompletely characterized. If indicated, this can be further assessed with MRI or ultrasound of the pelvis in nonacute setting. --Gall Bladder USD:Right-sided pleural effusion with fluid within Morison's pouch.Multiple gallstones with mild pericholecystic fluid and borderline thickening of the wall, cannot exclude acute cholecystitis although findings are nonspecific in the context of fluid overload. If indicated, recommend follow-up with HIDA scan for further evaluation. Borderline prominence of the common bile duct as described, remainder of the right upper quadrant ultrasound unremarkable. --HIDA:No evidence for acute cholecystitis. Delayed visualization of activity within the common bile duct and nonvisualization of small bowel activity. These findings are nonspecific and differential considerations include sphincter dysfunction, spasm or partial common bile duct obstruction. Findings could be correlated with liver function tests. --MRCP:Cholelithiasis with a mildly distended and thick-walled gallbladder. Given the normal hepatobiliary scan acute cholecystitis is considered unlikely, and this is likely related to adjacent hepatocellular disease/ascites.There is dilatation of the common bile duct with choledocholithiasis. Enlarged heterogeneous liver. Splenomegaly. Moderate pleural effusions. Abdominal ascites. EGD findings: Impression: - Normal esophagus. - Large hiatal hernia. - A retained endoclip and Padlock clip was found in the stomach. - Non-bleeding gastric ulcer with no stigmata of bleeding. - Normal duodenal bulb and second portion of the duodenum. - No specimens collected. Recommendation:- Use a proton pump inhibitor PO BID for 3 months. - Repeat upper endoscopy in 2 months to check healing and biopsy the ulcer area. ERCP finding: Choledocholithiasis was found and complete removal was accomplished by biliary sphincterotomy and balloon extraction. 1 plastic biliary stent was placed into common bile duct. Recommendation-repeat ERCP in 2 months to remove stent, at that time we will perform EUS guided gallbladder drainage using actual stent as patient deemed a nonsurgical candidate. -No anticoagulation for 5 days Paroxysmal atrial fibrillation, NSVT H/O cardiac amyloidosis -Cardiology following. -Monitor on telemetry. -Keep electrolytes at goal. -As patient has cardiac amyloidosis, medication use is limited with poor tolerance due to bradycardia -Per cardiology, continue to monitor off of AV fredo blockers and anticoagulation. -Pacemaker placed 01/13- notes some issues with functioning, but does not need to be replaced per cardiology. Appreciate recs, Chronic diastolic heart failure Valvular heart disease Pulmonary hypertension Bilateral pleural effusion --ECHO 11/22/22: Left ventricle cavity is small. Severe concentric LVH. EF 60 to 65%. Mild mitral regurgitation. Severe tricuspid regurgitation. Estimated systolic pulmonary pressure is 43 mmHg. Dilated IVC with normal respiratory variation suggestive of right atrial pressure of 8 mmHg. Grade 3 diastolic dysfunction. --CTA:No distinct pulmonary embolus with suboptimally opacified mid distal branches of the left lower lobe pulmonary arteries in a homogeneous pattern, likely related to decreased flow velocity from diffuse cardiac congestion. Significant cardiomegaly with vascular congestion and prominent bilateral pleural effusions. Bilateral lower lobe atelectasis versus residual infiltrates with lingular atelectasis. -Received doses of iv lasix. Also on mucinex. Early Satiety Abdominal Bloating KUB ordered on 01/14- no signs of obstruction Symptoms likely related to hiatal hernia noted on imaging Pt declining f/u with Gen Surg/GI for this Will eat small meals at a time Continue to monitor Chronic hypotension Continue midodrine-increased to 2.5 mg 3 times daily H/O Multiple myeloma S/P Chemotherapy Follows with oncology as outpatient Prediabetes HbA1c 6.0 Suspected subclinical hypothyroidism Elevated TSH, normal T4 We will need to repeat thyroid function tests as outpatient Fibromatous uterus Incidental finding on CT Will need to follow-up with SPRAY WORKER as outpatient DVT Px: Heparin SQ Dispo: Home with spouse assistance per PT recs Discharge Exam General: Alert, oriented. No acute distress Skin: No noted rashes or bruises Psych: Appropriate mood and affect Neuro: No gross deficits HEENT: NC/AT Chest: Nontender to palpation. CV: RRR Resp: Breath sounds clear bilaterally, no increased effort of breathing. Abdomen: Soft, mild bloating with mild tenderness on exam Updated Medication List Medication Instructions Recorded Confirmed Type cyanocobalamin (vitamin B-12) 1,000 mcg PO QAM 05/14/21 01/07/23 History 1,000 mcg tablet (Vitamin B-12) potassium chloride 20 mEq 20 meq PO QAM 11/22/22 01/07/23 History tablet,extended release(part/cryst) sucralfate 100 mg/mL oral 10 ml PO QID PRN Gi Upset 11/22/22 01/07/23 History suspension aspirin 81 mg tablet,delayed 81 mg PO QAM 01/07/23 01/07/23 History release furosemide 40 mg tablet 40 mg PO UD 01/07/23 01/07/23 History midodrine 5 mg tablet 5 mg PO QAM 01/07/23 01/07/23 History amiodarone 200 mg tablet 200 mg PO BID #60 tabs 01/15/23 Rx midodrine 2.5 mg tablet 2.5 mg PO DAILY@0700,1200,1800 #90 01/15/23 Rx tabs pantoprazole 40 mg tablet,delayed 40 mg PO BID #60 tabs 01/15/23 Rx release Hospital Stay Data Consultations 01/07/23 22:54 ED Decision to Admit Stat 01/08/23 00:04 Consult General Surgery Routine 01/08/23 01:26 Consult Cardiology Routine 01/09/23 06:33 Consult Gastroenterology Routine 01/12/23 12:22 Consult Cardiac Electrophysiology Routine Procedures Performed Operation Date: 01/13/23 15:00 Actual Procedures p Pacer with A/V Leads (Dual) - Jose Martin Gannno MD Diagnostic Imagining Performed 01/07/23 17:31 US gallbladder Stat 01/07/23 21:00 CT abd pelvis IV con only Stat CT angio chest PE protocol Stat 01/09/23 10:01 MR MRCP Routine 01/10/23 FL ERCP biliary ductal Routine 01/13/23 14:15 EP Lab Images for PACS ONCE Pending Results Patient Have Any Pending Studies at Discharge: No Discharge Instructions Given to Patient (Per Discharging Provider) Ms. Hogue, You were admitted and treated for a stone in your common bile duct. Gastroenterology is recommending a repeat endoscopy and ERCP procedure in 2 months. Please keep close followup with your primary care provider and Gastroenterology about this. They recommend that you take the medication pantoprazole 40mg twice a day to help treat your ulcer they noted. You also had a pacemaker placed. Cardiology noted a small pneumothorax and they are recommending a repeat chest xray that is already ordered for you to do as an outpatient in the next day or 2. If you develop any shortness of breath, chest tightness, chest or back pain, please do not hesitate to come back to the [facility] room for further evaluation. Try to eat small meals to help with the early filling and bloating you noted due to your large hiatal hernia. Using Gas-X to help is not a problem. Should you desire physical or occupational therapy services outside of the hospital, please contact your primary care provider for a referral. We made changes to your medications as shown below in the medication section. Please keep close followup with your primary care provider as well as your wind turbine sheet metal worker and organizational development director after discharge for continued monitoring and further evaluation. It was a pleasure taking care of you while here! Cardiology has placed additional recommendations for you below related to your pacemaker placement: ACTIVITY RECOMMENDATIONS: * Do not raise affected arm over head for 2 weeks. SPECIAL CARE INSTRUCTIONS: * If bleeding occurs, apply direct pressure to area for 5 minutes. * Call your doctor if you have severe pain, fever, drainage or bleeding at site. * Keep dressing on and dry for 48 hours then remove. * Keep any scheduled doctor's appointment. * Implant Card - hand held device with website information given. SKIN IRRITATION: * You may experience some redness and/or swelling in the area where radiation was administered. If any skin irritation occurs, please contact your family physician. FOLLOW UP VISIT: Keep any scheduled doctor appointments. We will schedule a chest x-ray for , January 16, 2023.
== END 2023-01-15 14:58 | disposition home or self-care (01) | DRG 982 ==
LOC: ED 16:46 → EDINP 23:59 → SUATTDRO 23:59 → 4W 01-08 01:25

== ENCOUNTER 2023-01-27 12:41 | Inpatient (IN) ==
[2023-01-27 13:29] LABS: Basophils # (auto) 0.02 K/uL (0.00-0.20); Basophils % (auto) 0.4 %; Eosinophils # (auto) 0.07 K/uL (0.00-0.50); Eosinophils % (auto) 1.4 %; Hematocrit (blood only) 40.1 % (37.0-47.0); Hemoglobin 12.8 g/dl (12.0-16.0); Immature Granulocytes # (auto) 0.01 K/uL (0.01-0.20); Immature Granulocytes % (auto) 0.2 %; Lymphocytes # (auto) 0.43 K/uL (1.20-3.40); Lymphocytes % (auto) 8.7 %; Mean Corpuscular Hemoglobin 29.2 pg (25.0-34.0); Mean Corpuscular Hgb Conc 31.9 g/dL (32.0-36.0); Mean Corpuscular Volume 91.3 fL (80.0-100.0); Mean Platelet Volume 11.1 fL (9.4-12.4); Monocytes # (auto) 0.33 K/uL (0.11-0.59); Monocytes % (auto) 6.7 %; Neutrophils # (auto) 4.06 K/uL (1.40-6.50); Neutrophils % (auto) 82.6 %; Platelet Count 187 K/uL (130-400); RDW Coefficient of Variation 16.7 % (11.5-14.5); RDW Standard Deviation 55.5 fL (36.4-46.3); Red Blood Count 4.39 M/uL (4.20-5.40); White Blood Count 4.92 K/ul (4.8-10.8)
--- NOTE | 2023-01-27 13:32 | Emergency Department Note ---
Impression & Plan Acute heart failure with preserved ejection fraction (HFpEF), Cardiac amyloidosis, Pleural effusion ED Provider Note Name: ARIA MAGANA Age: 77 Sex: Female Arrives Via:, Walk-In Informant: Patient, , Dr. Molina her primary inspector quality assurance ED Provider: Jackson Ferrara MD Chief Complaint: Shortness of breath Impression: As per impression above Medical Decision Making: Pleasant 77-year-old female with a history of amyloid cardiomyopathy and severe fluid issues previously due to heart failure with preserved EF. Patient has been rapidly worsening recently and is quite short of breath and sent to the ER for evaluation and possible hospitalization. X-rays reveal a large left pleural effusion. She is in congestive failure. She was given 40 mg IV Lasix. She was seen by cardiology who agreed with this plan and to hospitalize. Discussed with pulmonology to make them aware of plan for hospitalization. Hospitalist consulted for further management. At this point there is no clear evidence of sepsis or ACS. Triage/Nursing Notes reviewed by Me External Chart Review by me: Extensive external chart reviewed by me including previous hospitalization stays discharge summaries and cardiac reports. Differential:Reactive airway disease, pneumonia, pneumothorax, COPD, CHF, infections, cardiac ischemia, pulmonary embolism, musculoskeletal, gastrointestinal, as well as other pathologies. Vital Signs: reviewed and remarkable for no significant abnormalities Interventions: Lasix 40 mg IV Labs:ED labs Reviewed by me and remarkable for mild leukocytosis which is standard for patient. Imagin view chest x-ray as per my interpretation. Congestive failure with large left pleural effusion EKG:As per my interpretation. Indication shortness of breath. AV paced 61 bpm with a QTc of 491. No ectopy. No ischemia. When compared to EKG from January 13, 2023 she is now atrial paced rather than ventricular paced. Cardiac/Tele Monitoring: Cardiac Monitoring: An Order was placed for continuous cardiac monitoring. The monitor shows a rate of 60 with a paced rhythm. Consults:Dr Mathews Cardiology, Dr David Pulmonology, Dr Janelle Montoya Hospitalist Plan: Disposition:Hospitalization. Condition: Good History of Present Illness: 77-year-old female arrives for evaluation of shortness of breath. Patient states that she has worsening shortness of breath over the last few days. Significantly worse yesterday and today. Last night unable to lie flat without severe shortness of breath. Denies any chest pain, syncope, lightheadedness, palpitations, abdominal pain or other concerning signs or symptoms. States she is getting some swelling in her abdomen and may be a bit in her legs. Denies any sudden onset in symptoms. Does have a history of A-fib, tachybradycardia syndrome, pacemaker placement, heart failure, cardiac amyloidosis and multiple myeloma. She has had multiple previous hospitalizations for fluid overload. Previously required drain of the left lung about a year and a half ago. During her pacemaker placement about 2 weeks ago she did develop a small pneumothorax. Repeat x-ray did not show worsening thus discharged home. Due to worsening shortness of breath chest x-ray was done at [facility] on Friday. This revealed a large left pleural effusion. She was told by her inspector quality assurance to go to the ER for evaluation today. Past Medical History:See Below Home Medications:See below Allergies:nkda Vitals:Blood Pressure: 126/67, Pulse 60, RR 27, T 36.6C, O2 95% on RA Physical Exam: GENERAL: Patient is unwell appearing and in mild distress. RESPIRATORY: Dyspnea/tachypnea decreased breath sounds throughout the left lung dow. CARDIOVASCULAR: Regular rate and rhythm.No murmur appreciated. GASTROINTESTINAL: Abdomen soft, non-tender, no peritonitis. BACK: No midline tenderness, no CVA tenderness EXTREMITIES: Normal motion all extremities, no cyanosis, no edema. NEUROLOGIC: Alert and oriented. No focal neurologic deficits appreciated SKIN: No rash, no jaundice, no diaphoresis. PSYCH: Appropriate GCS: 15 ED Course: Times/Reassessments: Multiple repeat evaluations patient is breathing comfortably while sitting on an ED. Agreeable to hospitalization Jackson Ferrara MD Past Med/Surg History Medical History (Updated 01/29/23 @ 14:54 by Jackson Ferrara MD) Acute combined systolic and diastolic CHF, NYHA class 3 Acute on chronic diastolic (congestive) heart failure Acute on chronic heart failure with preserved ejection fraction (HFpEF) Cardiac amyloidosis Chronic diastolic heart failure Dyspnea on exertion Elevated troponin GI bleed Multiple myeloma Nausea & vomiting Pleural effusion due to CHF (congestive heart failure) Surgical History History of colonoscopy History of tubal ligation Family History Father , 50s Stroke Mother , 90 Coronary heart disease Social History Smoking Status: Never smoker Second Hand Exposure: No; Do You Dip or Chew Tobacco: No; Hx Alcohol Use: No Hx Substance Use: No Preferred Language: Panamanian 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: Effective Advertising Editor Required: No Beliefs That Will Affect Care: None marital status: Current Living Situation: Spouse Current Living Situation Comment: with Other Information That Helps Us Care for You: No Feels Safe at Home: Yes Safety Concerns: Feels Safe At This Time Assistive Devices: Walker Allergies Allergies Allergy/AdvReac Type Severity Reaction Status Date / Time iron Allergy Rash Verified 01/27/23 15:23 Home Meds Home Medications Medication Instructions Recorded Confirmed cyanocobalamin (vitamin B-12) 1,000 mcg PO QAM 05/14/21 01/27/23 1,000 mcg tablet (Vitamin B-12) sucralfate 100 mg/mL oral 10 ml PO QID PRN Gi Upset 11/22/22 01/27/23 suspension aspirin 81 mg tablet,delayed 81 mg PO QAM 01/07/23 01/27/23 release levothyroxine 50 mcg tablet 50 mcg PO QAM 01/27/23 01/27/23 midodrine 2.5 mg tablet 2.5 mg PO TIDM 01/27/23 01/27/23 Previous Rx's Medication Instructions Recorded amiodarone 200 mg tablet 200 mg PO BID #60 tabs 01/15/23 pantoprazole 40 mg tablet,delayed 40 mg PO BID #60 tabs 01/15/23 release apixaban 5 mg tablet (Eliquis) 5 mg PO BID #60 tabs 01/28/23 Results & Data (ED) Vital Signs Vital Signs - 24 hr 01/27/23 12:49 01/27/23 13:06 Temperature 36.6 C Temperature Source Skin Pulse Rate 64 60 Respiratory Rate 18 27 H Blood Pressure 126/67 Blood Pressure Mean 86 Pulse Oximetry 94 95 Oxygen Delivery Method Room Air Room Air Sepsis Recent Fever Within 48 Hours No Sepsis New/Unexplained Change in Mental Status No Sepsis Action Taken by Nursing No Action Required Laboratory Data 01/27/23 12:53 01/27/23 12:53 Lab Results 01/27/23 01/27/2323 Range/Units 12:53 12:53 13:08 WBC 4.92 (4.8-10.8) K/ul RBC 4.39 (4.20-5.40) M/uL Hgb 12.8 (12.0-16.0) g/dl Hct 40.1 (37.0-47.0) % MCV 91.3 (80.0-100.0) fL MCH 29.2 (25.0-34.0) pg MCHC 31.9 L (32.0-36.0) g/dL RDW Std Deviation 55.5 H (36.4-46.3) fL RDW Coeff of Nasir 16.7 H (11.5-14.5) % Plt Count 187 (130-400) K/uL MPV 11.1 (9.4-12.4) fL Immature Gran % (Auto) 0.2 % Neut % (Auto) 82.6 % Lymph % (Auto) 8.7 % Ashe % (Auto) 6.7 % Eos % (Auto) 1.4 % Baso % (Auto) 0.4 % Neut # (Auto) 4.06 (1.40-6.50) K/uL Lymph # (Auto) 0.43 L (1.20-3.40) K/uL Ashe # (Auto) 0.33 (0.11-0.59) K/uL Eos # (Auto) 0.07 (0.00-0.50) K/uL Baso # (Auto) 0.02 (0.00-0.20) K/uL Immature Gran # (Auto) 0.01 (0.01-0.20) K/uL Sodium 139 (136-145) mmol/L Potassium 4.4 (3.5-5.1) mmol/L Chloride 109 H (98-107) mmol/L Carbon Dioxide 25 (21-32) mmol/L Anion Gap 5 (3-11) BUN 15 (6-23) mg/dl Creatinine 0.65 (0.6-1.2) mg/dl Est Cr Clr Drug Dosing Not Reportable Est GFR ( Amer) 100.0 ml/min Est GFR (Non-Af Amer) 86.2 ml/min BUN/Creatinine Ratio 23.1 H (10-20) Glucose 130 H (70-99(Fasting)) mg/dl Calcium 9.1 (8.6-10.3) mg/dl Total Bilirubin 0.8 (0.2-1.0) mg/dl AST 24 (13-39) U/L ALT 14 (7-52) U/L Alkaline Phosphatase 82 (34-104) U/L Total Protein 8.2 (6.0-8.3) gm/dl Albumin 3.5 (3.4-5.0) gm/dl Globulin 4.7 H (2.5-4.0) gm/dl Albumin/Globulin Ratio 0.7 L (0.9-2) Adenovirus (PCR) Not Detected (NotDetected) B. pertussis DNA (PCR) Not Detected (NotDetected) B.parapertussis DNA PCR Not Detected (NotDetected) C. pneumoniae DNA (PCR) Not Detected (NotDetected) Coronavirus OC43 (PCR) Not Detected (NotDetected) Coronavirus HKU1 (PCR) Not Detected (NotDetected) Coronavirus 229E (PCR) Not Detected (NotDetected) SARS-CoV-2 (PCR) Not Detected (NotDetected) Coronavirus NL63 (PCR) Not Detected (NotDetected) Human Metapneumovir PCR Not Detected (NotDetected) Influenza Type A (PCR) Not Detected (NotDetected) Influenza Type B (PCR) Not Detected (NotDetected) M. pneumoniae (PCR) Not Detected (NotDetected) Parainfluenza 1 (PCR) Not Detected (NotDetected) Parainfluenza 2 (PCR) Not Detected (NotDetected) Parainfluenza 3 (PCR) Not Detected (NotDetected) Parainfluenza 4 (PCR) Not Detected (NotDetected) RSV (PCR) Not Detected (NotDetected) Entero/Rhino (PCR) Not Detected (NotDetected) Administered Medications Amiodarone HCl (Amiodarone 200 Mg Tab) 200 mg PO BID RYANN Stop: 02/26/23 20:59 Last Admin: 01/29/23 08:07 Dose: 200 mg Documented By: Admin: 01/28/23 20:25 Dose: 200 mg Documented By: Admin: 01/28/23 08:03 Dose: 200 mg Documented By: Admin: 01/27/23 19:30 Dose: 200 mg Documented By: GELACIO Amoxicillin/Clavulanate Potassium (Amoxicillin/Clavulanate 875 Mg Tab) 1 tab PO BIDM [facility]; Protocol Stop: 02/03/23 10:14 Last Admin: 01/29/23 11:10 Dose: 1 tab Documented By: OAnkit Aspirin (Aspirin 81 Mg Ectab) [facility] [place] Stop: 02/27/23 08:59 Last Admin: 01/29/23 08:06 Dose: 81 mg Documented By: Admin: 01/28/23 08:04 Dose: 81 mg Documented By: AM Cyanocobalamin (Cyanocobalamin (B-12) 500 Mcg Tablet) 1,000 mcg [facility] [place] Stop: 02/27/23 08:59 Last Admin: 01/29/23 08:06 Dose: 1,000 mcg Documented By: Admin: 01/28/23 08:04 Dose: 1,000 mcg Documented By: LANTETE Furosemide (Furosemide 40 Mg/4 Ml Vial) 40 mg IV BID17 [facility] Stop: 02/26/23 16:59 Last Admin: 01/29/23 08:07 Dose: 40 mg Documented By: Admin: 01/28/23 17:40 Dose: 40 mg Documented By: Admin: 01/28/23 08:04 Dose: 40 mg Documented By: Admin: 01/27/23 18:26 Dose: 40 mg Documented By: KHANH Heparin Sodium (Porcine) (Heparin Sod 5,000 Unit/0.5 Ml Vial) 5,000 units SQ Q8 [facility] Stop: 02/27/23 21:59 Last Admin: 01/29/23 13:12 Dose: Not Given Documented By: Admin: 01/29/23 06:18 Dose: Not Given Documented By: Admin: 01/28/23 20:26 Dose: Not Given Documented By: LMP Levothyroxine Sodium (Levothyroxine Sodium 50 Mcg Tablet) 50 mcg PO DAILYBB [facility] Stop: 02/27/23 06:29 Last Admin: 01/29/23 06:18 Dose: 50 mcg Documented By: Admin: 01/28/23 06:36 Dose: 50 mcg Documented By: GELACIO Midodrine (Midodrine Hcl 2.5 Mg Tab) 2.5 mg PO TIDM RYANN Stop: 02/26/23 16:59 Last Admin: 01/29/23 14:01 Dose: 2.5 mg Documented By: Admin: 01/29/23 08:05 Dose: 2.5 mg Documented By: Admin: 01/28/23 17:40 Dose: 2.5 mg Documented By: Admin: 01/28/23 12:48 Dose: 2.5 mg Documented By: Admin: 01/28/23 08:04 Dose: 2.5 mg Documented By: Admin: 01/27/23 18:26 Dose: 2.5 mg Documented By: AK Pantoprazole Sodium (Pantoprazole 40 Mg Tab) 40 mg PO BID RYANN Stop: 02/26/23 20:59 Last Admin: 01/29/23 08:07 Dose: 40 mg Documented By: Admin: 01/28/23 20:25 Dose: 40 mg Documented By: Admin: 01/28/23 08:03 Dose: 40 mg Documented By: Admin: 01/27/23 19:29 Dose: 40 mg Documented By: GELACIO Potassium Chloride (Potassium Chloride Crtab 20 Meq Tabcr) 20 meq PO BID RYANN Stop: 02/28/23 09:59 Last Admin: 01/29/23 10:31 Dose: 20 meq Documented By: OO Discontinued Medications Furosemide (Furosemide 40 Mg/4 Ml Vial) 40 mg IV ONE ONE Stop: 01/27/23 14:35 Last Admin: 01/27/23 15:06 Dose: 40 mg Documented By: [place] Ioversol (Optiray 320 100ml) 90 ml IV ONCE ONE Stop: 01/27/23 17:09 Last Admin: 01/27/23 17:09 Dose: 90 ml Documented By: QUENTIN Potassium Chloride (Potassium Chloride Crtab 20 Meq Tabcr) 40 meq PO NOW STA Stop: 01/28/23 07:11 Last Admin: 01/28/23 08:04 Dose: 40 meq Documented By: AM Discharge Plan Visit Data Chief Complaint: Shortness of Breath/Dyspnea Stated Complaint: SOB ED Provider: Jackson Ferrara Discharge Problem: Acute heart failure with preserved ejection fraction (HFpEF), Cardiac amyloid osis, Pleural effusion Patient Disposition: Admitted As Inpatient Discharge Instructions Interventions: ED Discharge Assessment Last Done: 01/27/23 17:10
[2023-01-27 13:39] LABS: Alanine Aminotransferase 14 U/L (7-52); Albumin Globulin Ratio 0.7 (0.9-2); Albumin Level 3.5 gm/dl (3.4-5.0); Alkaline Phosphatase 82 U/L (34-104); Anion Gap 5 (3-11); Aspartate Aminotransferase 24 U/L (13-39); BUN Creatinine Ratio 23.1 (10-20); Bilirubin,Total 0.8 mg/dl (0.2-1.0); Blood Urea Nitrogen 15 mg/dl (6-23); Calcium 9.1 mg/dl (8.6-10.3); Carbon Dioxide 25 mmol/L (21-32); Chloride 109 mmol/L (98-107); Est GFR (Non-African American) 86.2 ml/min; Globulin 4.7 gm/dl (2.5-4.0); Glucose 130 mg/dl (70-99(Fasting)); Potassium 4.4 mmol/L (3.5-5.1); Sodium 139 mmol/L (136-145); Total Protein 8.2 gm/dl (6.0-8.3)
--- NOTE | 2023-01-27 13:58 | XRay Report ---
XR chest 1V portable CLINICAL HISTORY: Dyspnea TECHNIQUE: Single frontal radiograph of the chest was obtained. Comparison: Comparison is made to chest radiograph 01/16/2023 FINDINGS: Lines and tubes are stable. Cardiomegaly is noted. Left lower lung airspace opacity is seen with decr eased lung volumes. Vascular prominence is seen. Moderate left and small right pleural effusions. IMPRESSION: 1. Left lower lung airspace opacity. which may represent atelectasis, pneumonia, and/or aspiration. 2. Cardiomegaly and mild pulmonary edema. 3. Moderate left and small right pleural effusions. 4. Interval resolution of previously noted pneumothorax. ACT 112: Negative or not required by law. Electronically signed by: Jose Ramon Murcia M.D. 01/27/2023 1:56 PM
[2023-01-27 14:26] LABS: Appearance Urine Turbid (Clear); Bacteria Urine Automated 1+ (Negative); Blood Urine 3+ (Negative); Color Urine Dark Yellow; Epithelial Cell Urine Auto >30 /lpf (0-5); Glucose Urine UA Negative (Negative); Ketones Urine Trace (Negative); Leukocyte Esterase Urine 2+ (Negative); Nitrite Urine Negative (Negative); Protein Urine 2+ (Negative); RBC Urine Automated >30 /hpf (0-4); Specific Gravity Urine 1.026 (1.000-1.030); Urobilinogen Urine Negative (Negative); WBC Urine Automated >30 /hpf (0-5)
[2023-01-27 14:27] LABS: Adenovirus PCR Not Detected (NotDetected); Bordetella parapertussis PCR Not Detected (NotDetected); Bordetella pertussis PCR Not Detected (NotDetected); Chlamydia pneumoniae PCR Not Detected (NotDetected); Coronavirus 229E PCR Not Detected (NotDetected); Coronavirus CoV-2 (COVID19)PCR Not Detected (NotDetected); Coronavirus HKU1 PCR Not Detected (NotDetected); Coronavirus NL63 PCR Not Detected (NotDetected); Coronavirus OC43PCR Not Detected (NotDetected); Human Metapneumovirus PCR Not Detected (NotDetected); Influenza A PCR Not Detected (NotDetected); Influenza B PCR Not Detected (NotDetected); Mycoplasma pneumoniae PCR Not Detected (NotDetected); Parainfluenza Virus 1 PCR Not Detected (NotDetected); Parainfluenza Virus 2 PCR Not Detected (NotDetected); Parainfluenza Virus 3 PCR Not Detected (NotDetected); Parainfluenza Virus 4 PCR Not Detected (NotDetected); Respiratory Syncytial VirusPCR Not Detected (NotDetected); Rhinovirus/Enterovirus PCR Not Detected (NotDetected)
[2023-01-27 14:31] LABS: Bilirubin Urine 1+ (Negative)
[2023-01-27] MEDS ORDERED: FUROSEMIDE 40 MG/4 ML VIAL IV ONE (14:34)
--- NOTE | 2023-01-27 14:35 | Cardiology Consultation ---
Date of Consultation January 27, 2023 Assessment & Plan (1) Chronic heart failure with preserved ejection fraction (HFpEF): (2) Cardiac amyloidosis: (3) Tachy-walker syndrome: (4) Paroxysmal atrial fibrillation: (5) Status post placement of cardiac pacemaker: (6) Pneumothorax on left: (7) Pleural effusion: Plan IMPRESSION: Medically complex 77 year old female with PMH of cardiac amyloid, PAF, TBS s/p PPM. Presents to [facility] ED due to progressive dyspnea. Found to be in acute on chronic diastolic CHF with a BL pleural effusions (L>R). Left pnx resolved. After further review it appears that her Lasix was not continued at discharge-- patient previously on 80 mg twice daily. Patient received 40 mg IV Lasix in the ED. PLAN: Acute on chronic HFpEF/pleural effusion: -Continue diuresis with IV Lasix, 40 mg BID. Recommend pulmonary consult to assess pleural effusion ? need for thoracentesis -Update resting echo to reassess LV systolic function and valvular status. PAF/TBS s/p PPM: -Interrogate device to reassess atrial lead thresholds-- abnormal in the outpatient setting last week. -Continue amiodarone 200 mg BID -Anticoagulation appears to remain hold from last admission due to GIB (01/12). Case discussed with Dr. Mathews-- further recommendations pending his assessment. Supervising Physician Co-Signing Physician Notes 77-year-old female presents to the emergency department with progressive shortness of breath. Outpatient x-ray demonstrating enlarging left-sided pleural effusion. It appears diuretic therapy was inadvertently discontinued approximately 2 weeks ago. Patient reports abdominal bloating, early satiety, and more than 10 pound weight gain. Denies chest discomfort. Conversational dyspnea and resting shortness of breath noted. Her room air saturation is in the low 90s. +orthopnea. PE: Gen: +Tachypnea, AAOx3. +dyspnea at rest. Heart: Regular rhythm, normal S1- S2. No murmur. Lungs: Diminished breath sounds left lower and midlung dow. No wheeze. Extremities: Mild bilateral pedal and ankle edema. Abd: Distended, nontender, no rebound or guarding. 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 77-year-old female admitted with acute decompensated heart failure with large left pleural effusion. Restart diuretic therapy. Recommend 40 mg IV Lasix x1 now then twice daily. Follow fluid balance, GFR, electrolyte and daily weights. Consult pulmonary medicine consider left-sided thoracentesis. Pacemaker interrogation in a.m. to assess right atrial lead function. History of Present Illness Reason for Consultation: Shortness of breath Requesting Physician: Lindsay Hospitalist Attending Physician: Medically complex 77-year-old female who presented to [facility] emergency department due to severe shortness of breath. Patient was recently admitted to [facility] on 01/07/2023 due to abdominal discomfort. Found to have Choledocholithiasis and underwent biliary stent placement on 01/10/2023. Incidentally, patient was found to have paroxysmal atrial fibrillation/tachybrady syndrome on telemetry and ultimately underwent pacemaker placement on 01/14/[address] Gannon. Postop course was complicated by small pneumothorax, did not warrant chest tube placement. She was also started on amiodarone at this time. Follow-up chest x-ray on 01/[address] [facility] with stable. Patient was seen in the outpatient device clinic on 01/24/2023. There was concerns regarding rate of battery depletion over the first 2 weeks with battery longevity noted to be of approximately 3 years. Settings were adjusted. Repeat chest x-ray revealed no pneumothorax but patient did have progression of a large left pleural effusion. Per the patient shortness of breath progressively worsened over the weekend. Friday patient was unable to do any activity without becoming severely dyspneic. She was watching her oxygen saturations at home noting readings in the low 90s, but this morning after showering her oxygen saturations dipped to about 88% and patient was unable to catch her breath. She presented to the emergency department for further care. Admits to about a 10 lb weight gain since hospital discharge. Not normally on diuretics. Poor appetite. Upon entrance into the room patient resting in bed. Head of the bed elevated to about 90 degrees. at bedside. Patient visibly dyspneic with speaking. Notable orthopnea and abdominal bloating. No lower extremity edema. Denies chest pain. No palpitations. No lightheadedness or dizziness. Repeat CXR today, 01/27: 1. Left lower lung airspace opacity. which may represent atelectasis, pneumonia, and/or aspiration. 2. Cardiomegaly and mild pulmonary edema. 3. Moderate left and small right pleural effusions. 4. Interval resolution of previously noted pneumothorax. Patient received 40 mg IV Lasix in the ED-- Appears that Lasix was not continued at discharge last admission (previously on 80 mg BID) Primary outpatient gmat tutor: Dr. Molina Past medical history: 1. [place] Cardiac amyloidosis a. Infiltrative cardiomyopathy per echocardiogram at [facility] 02/2019 showing normal LV systolic function and severe concentric LVH and elevated diastolic filling pressures b. Bone biopsy revealed vascular infiltration consistent with amyloid 2. Severe chronic diastolic CHF, NYHA class 3 3. Nonsustained ventricular tachycardia, per [facility] 09/2020 4. IgG [place] multiple myeloma, following with [facility] Oncology (Dr. Villela) and [facility] Hematology (Dr. Luevano) 5. History of B/L pleural effusions 6. PAF dx 01/11/2023-- amiodarone started 01/13/2023 7. TBS s/p ppm, 01/14/2023 a. post op course complicate by small left apical pnx, did not warrant chest tube placement 8. Choledocholithiasis noted with subsequent biliary sphincterotomy and balloon extraction, 1 plastic biliary stent was placed in the common bile duct, 01/10/2023 Allergies Allergy/AdvReac Type Severity Reaction Status Date / Time iron Allergy Rash Verified 01/27/23 15:23 Home Medications Medication Instructions Recorded Confirmed Type cyanocobalamin (vitamin B-12) 1,000 mcg PO QAM 05/14/21 01/27/23 History 1,000 mcg tablet (Vitamin B-12) sucralfate 100 mg/mL oral 10 ml PO QID PRN Gi Upset 11/22/22 01/27/23 History suspension aspirin 81 mg tablet,delayed 81 mg PO QAM 01/07/23 01/27/23 History release amiodarone 200 mg tablet 200 mg PO BID #60 tabs 01/15/23 01/27/23 Rx pantoprazole 40 mg tablet,delayed 40 mg PO BID #60 tabs 01/15/23 01/27/23 Rx release levothyroxine 50 mcg tablet 50 mcg PO QAM 01/27/23 01/27/23 History midodrine 2.5 mg tablet 2.5 mg PO TIDM 01/27/23 01/27/23 History Patient History Medical History (Updated 01/28/23 @ 10:02 by Brett Griggs MD) Acute combined systolic and diastolic CHF, NYHA class 3 Acute on chronic diastolic (congestive) heart failure Acute on chronic heart failure with preserved ejection fraction (HFpEF) Cardiac amyloidosis Chronic diastolic heart failure Dyspnea on exertion Elevated troponin GI bleed Multiple myeloma Nausea & vomiting Pleural effusion due to CHF (congestive heart failure) Surgical History History of colonoscopy History of tubal ligation Family History Father , 50s Stroke Mother , 90 Coronary heart disease Social History Smoking Status: Never smoker Second Hand Exposure: No; Do You Dip or Chew Tobacco: No; Hx Alcohol Use: No Hx Substance Use: No Preferred Language: Croatian 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: Effective Special Assemblies Supervisor Required: No Beliefs That Will Affect Care: None marital status: Current Living Situation: Spouse Current Living Situation Comment: with Other Information That Helps Us Care for You: No Feels Safe at Home: Yes Safety Concerns: Feels Safe At This Time Assistive Devices: Glasses and Walker Review of Systems Review of Systems: All systems reviewed & are unremarkable except as noted in HPI & below Physical Exam Constitutional: WD/WN, vitals as above + ill appearing; no acute distress Neck: normal visual inspection and trachea midline Respiratory: + labored breathing, + cough and + tachypneic Auscultation: + diminished lung sounds and + crackles; no rhonchi and no wheezes Cardiovascular: Rate/Rhythm: regular rate and regular rhythm Heart Sounds: + murmur (+systolic murmur ) Vessels: + JVD Extremities: no edema Chest (Breasts): Chest: + pacemaker Gastrointestinal (Abdomen): Inspection/Auscultation: + abdomen distended Percussion/Palpation: + abdomen firm; abdomen nontender Skin: no rashes, warm and dry Psychiatric: A+Ox3, euthymic affect Results & Data Vital Signs (Past 12 Hours) Vital Signs Temp Pulse Resp BP Pulse Ox O2 Del Method 01/27/23 13:48 60 01/27/23 13:06 60 27 H 95 Room Air 01/27/23 12:49 36.6 C 64 18 126/67 94 Room Air Laboratory Results Cardiac Enzymes 01/27/23 Range/Units 12:53 AST 24 (13-39) U/L CBC 01/27/23 Range/Units 12:53 WBC 4.92 (4.8-10.8) K/ul RBC 4.39 (4.20-5.40) M/uL Hgb 12.8 (12.0-16.0) g/dl Hct 40.1 (37.0-47.0) % Plt Count 187 (130-400) K/uL Neut # (Auto) 4.06 (1.40-6.50) K/uL Lymph # (Auto) 0.43 L (1.20-3.40) K/uL Eaton # (Auto) 0.33 (0.11-0.59) K/uL Eos # (Auto) 0.07 (0.00-0.50) K/uL Baso # (Auto) 0.02 (0.00-0.20) K/uL Comprehensive Metabolic Panel 01/27/23 Range/Units 12:53 Sodium 139 (136-145) mmol/L Potassium 4.4 (3.5-5.1) mmol/L Chloride 109 H (98-107) mmol/L Carbon Dioxide 25 (21-32) mmol/L BUN 15 (6-23) mg/dl Creatinine 0.65 (0.6-1.2) mg/dl Glucose 130 H (70-99(Fasting)) mg/dl Calcium 9.1 (8.6-10.3) mg/dl AST 24 (13-39) U/L ALT 14 (7-52) U/L Alkaline Phosphatase 82 (34-104) U/L Total Protein 8.2 (6.0-8.3) gm/dl Albumin 3.5 (3.4-5.0) gm/dl
[2023-01-27] MEDS ORDERED: MAGNESIUM HYDROXIDE SUSP 30 ML UDC PO PRN (15:35)
[2023-01-27] MEDS ORDERED: ACETAMINOPHEN 325 MG TAB PO PRN (15:35)
[2023-01-27] MEDS ORDERED: POLYETHYLENE (MIRALAX) 17 GM PACK PO PRN (15:35)
[2023-01-27] MEDS ORDERED: ALUMINUM/MAGNESIUM SUSP 30 ML UDC PO PRN (15:35)
[2023-01-27] MEDS ORDERED: ONDANSETRON INJ 2 MG/ML 2 ML VIAL IV PRN (15:35)
--- NOTE | 2023-01-27 15:42 | Electrocardiogram Report ---
Test Reason : Blood Pressure : / mmHG Vent. Rate : 061 BPM Atrial Rate : 061 BPM P-R Int : 170 ms QRS Dur : 116 ms QT Int : 488 ms P-R-T Axes : 000 038 197 degrees QTc Int : 491 ms AV dual-paced rhythm Abnormal ECG When compared with ECG of 13-JAN-2023 19:50, Electronic ventricular pacemaker has replaced Electronic atrial pacemaker Confirmed by Nestor Licona ([id number]) on 01/27/2023 3:41:30 PM Referred By: Confirmed By:Rudolph Licona
--- NOTE | 2023-01-27 15:44 | History & Physical Report ---
Date of Service January 27, 2023 Assessment & Plan (1) Acute on chronic heart failure with preserved ejection fraction (HFpEF): (2) Pleural effusion: (3) Cardiac amyloidosis: (4) Paroxysmal atrial tachycardia: Plan Ms. Hogue is a 77 year old female that presents to the ED with shortness of breath that has been worsening over the past few days with orthopnea; starting on Friday. Yesterday and this morning and last night; she could not catch her breath. Her Home SpO2 was 91%. She took a shower this morning and it was 88%. Decreased appetite since discharge from this morning. Abdominal xray negative as an outpatient. She is overall medically complex with a past medical history of cardiac amyloidosis, paroxysmal A-fib, tachybradycardia syndrome status post pacemaker placement 01/13/2023. Patient appears to be acute on chronic diastolic CHF with persistent bilateral pleural effusions which is greater on the left compared to right. Patient's Lasix was not continued upon discharge. Lasix 40 mg IV given in ED and will continue twi ce daily per cardiology recommendations. ED discussed with pulmonary service who plans to evaluate for possible thoracentesis tomorrow 01/28/2023. Historically per review of outpatient records patient unable to tolerate beta- deneen and has been placed on amiodarone for management of her paroxysmal A- fib. For now suspect that patient is acute on chronic diastolic CHF with bilateral pleural effusions; continue diuresis with IV Lasix per recommendation of cardiology and await pulmonary consultation; obtain repeat echo. Takes amiodarone 200 mg BID; does not tolerate beta-blockers due to hypotension. Patient denies headache, dizziness, visual or auditory disturbance, chest pain, palpitations, abdominal pain or tenderness, flank pain, recent falls or trauma. Pt lying in her hospital bed in no apparent distress. Able to hold meaningful conversation. Dr. Molina called patient earlier today and stated Acute on chronic HFpEF: Acute uncontrolled 10# weight gain since last admission; Home lasix stopped at discharge for unknown reason Received Lasix 40 mg IV in ED; continue BID per cardiology recommendations ECHO ordered and pending Continue Amiodarone and Midodrine from home medications CXR in AM daily weights Pleural effusion: Acute uncontrolled CXR: Left lower lung airspace opacity. which may represent atelectasis, pneumonia, and/or aspiration. Cardiomegaly and mild pulmonary edema. Moderate left and small right pleural effusions. Pulmonary consult placed; will evaluate for possible thoracentesis on 01/28 Cardiac amyloidosis: chronic stable Infiltrative cardiomyopathy per echocardiogram at [facility] 02/2019 showing normal LV systolic function and severe concentric LVH and elevated diastolic filling pressure Bone biopsy revealed vascular infiltration consistent with amyloid Paroxysmal atrial tachycardia: Status post PPM dual-chamber placed on 01/13 at [facility] Complicated with PNX post procedure;no chest tube Interrogation of pacemaker while here Disposition: PCP: Dr. Swenson CODE STATUS: Full code VTE prophylaxis: On hold due to GIB I spent a total of 88 minutes coordinating, documenting, and providing care for this patient excluding time spent in the performance of separately billed services. All of the aforementioned completed while collaborating with the assigned attending physician for a full treatment plan. Please see their addendum for further details. History of Present Illness Primary Care Provider: Rosendo Boyce DO Ms. Hogue is a 77 year old female that presents to the ED with shortness of breath that has been worsening over the past few days; starting on Friday. Yesterday and this morning and last night; she could not catch her breath. Her Home SpO2 was 91%. She took a shower this morning and it was 88%. Decreased appetite since discharge from this morning. Abdominal xray negative as an outpatient. She is overall medically complex with a past medical history of cardiac amyloidosis, paroxysmal A-fib, tachybradycardia syndrome status post pacemaker placement 01/13/2023. Patient appears to be acute on chronic diastolic CHF with persistent bilateral pleural effusions which is greater on the left compared to right. Patient's Lasix was not continued upon discharge. Lasix 40 mg IV given in ED and will continue twice daily per cardiology recommendations. ED discussed with pulmonary service who plans to evaluate for possible thoracentesis tomorrow 01/28/2023. Historically per review of outpatient records patient unable to tolerate beta-deneen and has been placed on amiodarone for management of her paroxysmal A-fib. For now suspect that patient is acute on chronic diastolic CHF with bilateral pleural effusions; continue diuresis with IV Lasix per recommendation of cardiology and await pulmonary consultation; obtain repeat echo. Takes amiodarone 200 mg BID; does not tolerate beta-blockers due to hypotension. Patient denies headache, dizziness, visual or auditory disturbance, chest pain, palpitations, abdominal pain or tenderness, flank pain, recent falls or trauma. Pt lying in her hospital bed in no apparent distress. Able to hold meaningful conversation without becoming hypoxic speaking in complete sentences. Patient will be admitted for further evaluation and management. Please see A/P for details. Allergies Allergy/AdvReac Type Severity Reaction Status Date / Time iron Allergy Rash Verified 01/27/23 15:23 Home Medications Medication Instructions Recorded Confirmed Type cyanocobalamin (vitamin B-12) 1,000 mcg PO QAM 05/14/21 01/27/23 History 1,000 mcg tablet (Vitamin B-12) sucralfate 100 mg/mL oral 10 ml PO QID PRN Gi Upset 11/22/22 01/27/23 History suspension aspirin 81 mg tablet,delayed 81 mg PO QAM 01/07/23 01/27/23 History release amiodarone 200 mg tablet 200 mg PO BID #60 tabs 01/15/23 01/27/23 Rx pantoprazole 40 mg tablet,delayed 40 mg PO BID #60 tabs 01/15/23 01/27/23 Rx release levothyroxine 50 mcg tablet 50 mcg PO QAM 01/27/23 01/27/23 History midodrine 2.5 mg tablet 2.5 mg PO TIDM 01/27/23 01/27/23 History Past Med/Surg History Medical History Acute combined systolic and diastolic CHF, NYHA class 3 Acute on chronic diastolic (congestive) heart failure Acute on chronic heart failure with preserved ejection fraction (HFpEF) Cardiac amyloidosis Chronic diastolic heart failure Elevated troponin GI bleed Multiple myeloma Nausea & vomiting Surgical History History of colonoscopy History of tubal ligation Family History Father , 50s Stroke Mother , 90 Coronary heart disease Social History Smoking Status: Never smoker Second Hand Exposure: No; Do You Dip or Chew Tobacco: No; Hx Alcohol Use: No Hx Substance Use: No Preferred Language: Tristanian 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: Effective French Polisher Required: No Beliefs That Will Affect Care: None marital status: Current Living Situation: Spouse Current Living Situation Comment: with Feels Safe at Home: Yes Assistive Devices: Glasses, Raised Toilet Seat and Walker Review of Systems Review of Systems: Neuro: (-) Falls, trauma, slurred speech HEENT: (-) NICOLE, dizziness, dysphagia, visual or auditory changes CV: (-) CP, palpitations, swelling Resp: (+) SOB GI: (-) appetite changes, N/V/D, bowel changes : (-) urinary changes Skin: (-) rashes Psych: (-) anxiety, depression Physical Exam Physical Exam: See Dr. Lusi's addendum for physical examination details Results & Data Results & Data Vital Signs (Past 12 Hours) Vital Signs Temp Pulse Resp BP Pulse Ox O2 Del Method O2 Flow Rate 01/27/23 15:00 60 29 H 113/66 01/27/23 14:50 61 27 H 92 01/27/23 14:40 61 32 H 94 01/27/23 14:31 64 21 135/88 92 Room Air 01/27/23 14:30 64 39 H 93 01/27/23 14:20 60 30 H 91 Room Air 01/27/23 14:10 60 32 H 93 01/27/23 14:00 62 30 H 94 01/27/23 13:50 60 29 H 93 01/27/23 13:44 64 22 93 01/27/23 15:04 Room Air 93 01/27/23 13:48 60 01/27/23 13:06 60 27 H 95 Room Air 01/27/23 12:49 36.6 C 64 18 126/67 94 Room Air Laboratory Results Short CBC 01/27/23 Range/Units 12:53 WBC 4.92 (4.8-10.8) K/ul Hgb 12.8 (12.0-16.0) g/dl Hct 40.1 (37.0-47.0) % Plt Count 187 (130-400) K/uL BMP 01/27/23 12:53 Sodium 139 Potassium 4.4 Chloride 109 H Carbon Dioxide 25 BUN 15 Creatinine 0.65 Glucose 130 H Calcium 9.1 Liver Function 01/27/23 Range/Units 12:53 Total Bilirubin 0.8 (0.2-1.0) mg/dl AST 24 (13-39) U/L ALT 14 (7-52) U/L Alkaline Phosphatase 82 (34-104) U/L Albumin 3.5 (3.4-5.0) gm/dl Urine 01/27/23 Range/Units Unknown Urine Color Dark Yellow Urine Appearance Turbid A (Clear) Urine pH 5.0 (4.5-7.5) Ur Specific Roxana 1.026 (1.000-1.030) Urine Protein 2+ H (Negative) Urine Glucose (UA) Negative (Negative) Diagnostic Findings Chest X-Ray 01/27/23 12:51 XR chest 1V portable CLINICAL HISTORY: Dyspnea TECHNIQUE: Single frontal radiograph of the chest was obtained. Comparison: Comparison is made to chest radiograph 01/16/2023 FINDINGS: Lines and tubes are stable. Cardiomegaly is noted. Left lower lung airspace opacity is seen with decreased lung volumes. Vascular prominence is seen. Moderate left and small right pleural effusions. IMPRESSION: 1. Left lower lung airspace opacity. which may represent atelectasis, pneumonia, and/or aspiration. 2. Cardiomegaly and mild pulmonary edema. 3. Moderate left and small right pleural effusions. 4. Interval resolution of previously noted pneumothorax. ACT 112: Negative or not required by law. Electronically signed by: Jose Ramon Murcia M.D. 01/27/2023 1:56 PM Code Status & VTE Plan Code Status Full code in the event of cardiac or respiratory arrest VTE Prophylaxis Plan VTE Prophylaxis will be ordered: Yes Supervising Physician Co-Signing Physician Notes Patient seen and examined Reports progressive shortness of breath, abd bloating and cough since discharge Reports anorexia and easy satiety On exam. General: Elderly woman No acute distress Eyes: PERRL, conjunctivae normal, not pale, anicteric sclerae, EOM intact bilaterally ENMT: External ear and nose normal, oropharynx normal Respiratory: Normal respiratory effort, no respiratory distress, lungs clear to auscultation, no crackles and no wheezes Cardiovascular: RRR S1 S2 Gastrointestinal (Abdomen): Abdomen is mildly distended, soft, non-tender to palpation, no guarding, no palpable hepatosplenomegaly, normal bowel sounds Musculoskeletal: No pedal edema Genitourinary: Puer wick in place Neurologic: Alert and oriented x 3, No focal weakness, sensation grossly intact Psychiatric: Euthymic affect Chest x-ray noted moderate left and small right pleural effusion. Interval resolution of previously noted pneumothorax. Left lower lung opacity which is likely atelectasis Acute on chronic diastolic heart failure Pleural effusion Continue IV Lasix twice daily. Patient was on po lasix which was stopped on recent discharge, unclear reason Cardiology evaluation appreciated Follow-up pacemaker interrogation Continue amiodarone Anticoagulation on hold due to recent GIB
[2023-01-27] MEDS ORDERED: OPTIRAY 320 100ml IV ONE (17:08)
--- NOTE | 2023-01-27 18:02 | CT Scan Report ---
CT chest diagnostic w con CLINICAL HISTORY: left pleural effusion TECHNIQUE: Multidetector row helical CT of the chest was performed with intravenous contrast. Coronal and sagittal reformations were obtained. Automated dose lowering techniques and/or adjustment accord ing to patient size were utilized for this exam. CT DOSE: 472.62 mGy.cm Comparison: Comparison is made to CT chest 01/07/2023 FINDINGS: Lungs and pleura: Moderate left and small right pleural effusions with underlying atelectasis. Heart and pericardium: There is cardiomegaly without evidence of pericardial effusion. Vessels: Unremarkable. Mediastinum and braulio: Unremarkable. Chest wall and lower neck: Unremarkable. Abdomen: A hiatal hernia is seen. There is partial visualization of ascites. Bones: Degenerative changes in the thoracic spine. IMPRESSION: 1. Moderate left and small right pleural effusion. This is stable to minimally enlarged from prior e xam. 2. Previously noted cardiomegaly is seen. ACT 112: Negative or not required by law. Electronically signed by: Jose Ramon Murcia M.D. 01/27/2023 6:00 PM
[2023-01-27] MEDS: MIDODRINE HCL 2.5 MG TAB PO SCH (18:26)
[2023-01-27] MEDS: FUROSEMIDE 40 MG/4 ML VIAL IV SCH (18:26)
[2023-01-27] MEDS: PANTOprazole 40 MG TAB PO SCH (19:29)
[2023-01-27] MEDS: AMIODARONE 200 MG TAB PO SCH (19:30)
--- NOTE | 2023-01-27 19:47 | XRay Report ---
XR KUB/Abdomen 1 view CLINICAL HISTORY: abdominal distension TECHNIQUE: 1 view of the abdomen was obtained. Comparison: Comparison is made to abdomen radiograph 01/14/2023 FINDINGS: Stable biliary stent. The osseous structures are grossly unremarkable. The bowel gas pattern is nonob structive. Small stool burden is seen. IMPRESSION: Nonobstructive bowel gas pattern. ACT 112: Negative or not required by law. Electronically signed by: Jose Ramon Murcia M.D. 01/27/2023 7:45 PM
[2023-01-28 05:15] LABS: Hematocrit (blood only) 37.5 % (37.0-47.0); Hemoglobin 11.9 g/dl (12.0-16.0); Mean Corpuscular Hemoglobin 29.3 pg (25.0-34.0); Mean Corpuscular Hgb Conc 31.7 g/dL (32.0-36.0); Mean Corpuscular Volume 92.4 fL (80.0-100.0); Mean Platelet Volume 11.7 fL (9.4-12.4); Platelet Count 155 K/uL (130-400); RDW Coefficient of Variation 16.5 % (11.5-14.5); RDW Standard Deviation 54.6 fL (36.4-46.3); Red Blood Count 4.06 M/uL (4.20-5.40); White Blood Count 4.58 K/ul (4.8-10.8)
[2023-01-28 05:31] LABS: Albumin Globulin Ratio 0.7 (0.9-2); Albumin Level 3.2 gm/dl (3.4-5.0); BUN Creatinine Ratio 23.9 (10-20); Bilirubin,Total 0.9 mg/dl (0.2-1.0); Calcium 8.8 mg/dl (8.6-10.3); Creatinine Clr Calc Pharmacy 65.4 ml/min; Est GFR (Non-African American) 85.4 ml/min; Globulin 4.7 gm/dl (2.5-4.0); Magnesium 1.9 mg/dl (1.7-2.4); Potassium 3.7 mmol/L (3.5-5.1); Total Protein 7.9 gm/dl (6.0-8.3)
[2023-01-28] MEDS: LEVOTHYROXINE SODIUM 50 MCG TABLET PO SCH (06:36)
[2023-01-28] MEDS ORDERED: POTASSIUM CHLORIDE CRTAB 20 MEQ TABCR PO STA (07:10)
--- NOTE | 2023-01-28 07:13 | Cardiology Progress Note ---
Date of Service January 28, 2023 Assessment & Plan (1) Chronic heart failure with preserved ejection fraction (HFpEF): (2) Cardiac amyloidosis: (3) Tachy-walker syndrome: (4) Paroxysmal atrial fibrillation: (5) Status post placement of cardiac pacemaker: (6) Pneumothorax on left: (7) Pleural effusion: Plan IMPRESSION: Medically complex 77 year old female with PMH of cardiac amyloid, PAF, TBS s/p PPM. Presents to [facility] ED due to progressive dyspnea. Found to be in acute on chronic diastolic CHF with a BL pleural effusions (L>R). Left pnx resolved. It appears diuretic therapy was inadvertently discontinued during hospitalization approximately 2 weeks ago. (Patient previously on 80 mg twice daily). PLAN: Acute on chronic HFpEF/pleural effusion: -Volume status improving, but patient remains mildly hypervolemic. Continue diuresis with IV Lasix, 40 mg BID. Consider transition to oral tomorrow. -Appreciate pulmonary input regarding left pleural effusion and potential thoracentesis. -Monitor renal function and electrolytes. replace K to a goal of 4.0 (40 meq given this am) and a mag of 2.0. - 2g sodium diet, strict I&O, daily weights. -CHF EDU PAF/TBS s/p PPM: -Interrogate device to reassess atrial lead thresholds-- abnormal in the outpatient setting last week. -Continue amiodarone 200 mg BID -Anticoagulation appears to remain hold from last admission due to GIB (01/12)-- will continue to hold until evaluated by pulmonary due to possible need for thoracentesis. Chronic hypotension: -Continue midodrine as ordered Case discussed with Dr. Mathews-- will follow. Admission and Anticipated Discharge Date Admission Date: January 27, 2023 Supervising Physician Co-Signing Physician Notes Patient seen and examined at the bedside. Feeling much better with IV diuretic therapy. Shortness of breath improved. Abdominal bloating less prominent. Appetite improved as well. PE: Gen: AAOx3. Heart: Regular rhythm, normal S1-S2. No murmur. Lungs: Diminished breath sounds left lower and midlung dow. No wheeze. Extremities: Mild bilateral pedal and ankle edema. A/P: Agree with above DIE DEVELOPER history, physical exam, assessment and plan. 77-year-old female admitted with acute decompensated heart failure with large left pleural effusion. Symptomatically improved with IV diuretic therapy. Continue Lasix 40 mg IV twice daily. Follow fluid balance, GFR, electrolyte and daily weights. Suspect she will require additional 48 hours of IV diuretic th erapy to improve volume status. Appreciate pulmonary input. Subjective Medically complex 77-year-old female with a past medical history of AL cardiac amyloid, paroxysmal atrial fibrillation and tachybradycardia syndrome status post permanent pacemaker. Initially presented to [facility] emergency department with progressive shortness of breath. Outpatient x-ray demonstrating an enlarging left-sided pleural effusion. It appears that diuretic therapy was inadvertently discontinued approximately 2 weeks ago. Normally maintains on furosemide 80 mg twice daily. Patient presenting with acute on chronic diastolic CHF with a 10 pound weight gain and abdominal bloating/early satiety. 01/27/2023: Diuretic therapy restarted. Patient was given a one-time dose of 40 mg of IV Lasix in the emergency department and transition to IV Lasix 40 mg twice daily. Pulmonary medicine consulted due to left-sided pleural effusion, ? Thoracentesis. 01/28/2023: Upon entrance into the room patient up ambulating independently with her wheeled walker. Feeling much improved. States breathing is almost back to her baseline. Abdominal bloating resolved. Notes an improvement in her appetite this morning. Denies PND. No lower extremity edema. Denies palpitations or lightheadedness. Tele: Paced with PVCs 60s I&O: -1.9L Weight: 66.4 kg >> 62.9 kg Review of Systems Review of Systems: All systems reviewed & are unremarkable except as noted in HPI & below Physical Exam Constitutional: WD/WN, vitals as above no acute distress Neck: normal visual inspection and trachea midline Respiratory: normal respiratory effort and + cough; no labored breathing Auscultation: + diminished lung sounds and + crackles; no rhonchi and no wheezes Cardiovascular: Rate/Rhythm: regular rate and regular rhythm Heart Sounds: + murmur (+systolic murmur ) Vessels: no JVD Extremities: no edema Chest (Breasts): Chest: + pacemaker Gastrointestinal (Abdomen): Percussion/Palpation: abdomen soft; abdomen nontender Skin: no rashes, warm and dry Psychiatric: A+Ox3, euthymic affect Results & Data Vital Signs (Past 12 Hours) Vital Signs Temp Pulse Resp BP Pulse Ox O2 Del Method O2 Flow Rate 01/28/23 03:10 36.4 C L 61 20 98/62 L 95 Nasal Cannula 01/27/23 23:00 36.6 C 60 18 112/69 95 Nasal Cannula 2 01/27/23 20:00 36.5 C 60 18 110/63 93 Nasal Cannula 2 01/27/23 20:03 Nasal Cannula 2 Laboratory Results Cardiac Enzymes 01/27/23 01/28/23 Range/Units 12:53 04:34 AST 24 22 (13-39) U/L CBC 01/27/23 01/28/23 Range/Units 12:53 04:34 WBC 4.92 4.58 L (4.8-10.8) K/ul RBC 4.39 4.06 L (4.20-5.40) M/uL Hgb 12.8 11.9 L (12.0-16.0) g/dl Hct 40.1 37.5 (37.0-47.0) % Plt Count 187 155 (130-400) K/uL Neut # (Auto) 4.06 (1.40-6.50) K/uL Lymph # (Auto) 0.43 L (1.20-3.40) K/uL [place] # (Auto) 0.33 (0.11-0.59) K/uL Eos # (Auto) 0.07 (0.00-0.50) K/uL Baso # (Auto) 0.02 (0.00-0.20) K/uL Comprehensive Metabolic Panel 01/27/23 01/28/23 Range/Units 12:53 04:34 Sodium 139 141 (136-145) mmol/L Potassium 4.4 3.7 (3.5-5.1) mmol/L Chloride 109 H 105 (98-107) mmol/L Carbon Dioxide 25 28 (21-32) mmol/L BUN 15 16 (6-23) mg/dl Creatinine 0.65 0.67 (0.6-1.2) mg/dl Glucose 130 H 83 (70-99(Fasting)) mg/dl Calcium 9.1 8.8 (8.6-10.3) mg/dl AST 24 22 (13-39) U/L ALT 14 12 (7-52) U/L Alkaline Phosphatase 82 81 (34-104) U/L Total Protein 8.2 7.9 (6.0-8.3) gm/dl Albumin 3.5 3.2 L (3.4-5.0) gm/dl Intake and Output 01/27/23 01/28/23 01/28/23 22:59 06:59 14:59 Intake Total 700 / 700 Output Total 1959 / 264 Balance -1260 / -1945 -68 / -194 Intake: Oral 700 / 700 Output: Urine Amount (Catheter) 1959 / 264 External 1959 Other: Other Intake Source sips Weight 66.4 kg 62.9 kg Weight Measurement Method [facility]
[2023-01-28] MEDS: PANTOprazole 40 MG TAB PO SCH ×2 (08:03→20:25)
[2023-01-28] MEDS: AMIODARONE 200 MG TAB PO SCH ×2 (08:03→20:25)
[2023-01-28] MEDS: FUROSEMIDE 40 MG/4 ML VIAL IV SCH ×2 (08:04→17:40)
[2023-01-28] MEDS: MIDODRINE HCL 2.5 MG TAB PO SCH ×3 (08:04→17:40)
[2023-01-28] MEDS: ASPIRIN 81 MG ECTAB PO SCH (08:04)
[2023-01-28] MEDS: CYANOCOBALAMIN (B-12) 500 MCG TABLET PO SCH (08:04)
--- NOTE | 2023-01-28 09:09 | Hospitalist Progress Note ---
Date of Service January 28, 2023 Assessment & Plan (1) Acute on chronic heart failure with preserved ejection fraction (HFpEF): (2) Pleural effusion: (3) Cardiac amyloidosis: (4) Paroxysmal atrial tachycardia: Plan Ms. Hogue is a 77 year old woman with complex medical history of cardiac amyloidosis, paroxysmal A-fib, tachybradycardia syndrome status post pacemaker placement 01/13/2023, and other comorbidities was admitted on 01/27 for acute on chronic heart failure exacerbation. Patient is responding well to IV diuersis. Pulmonary was consulted for pleural effusions, who at this time feels thoracentesis will be unnecessary as patient improving with diuresis and with m inimal o2 requirements. Cardiology intends for AC to start; however, given concern for effusions, wish to wait until CXR completed on 01/29 to ensure no anticipated thora. Patient will be able to start eliquis 5mg BID--after calling pharmacy, cost after insurance will be 19.50$. 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 showing normal LV systolic function and severe concentric LVH and elevated diastolic filling pressure Bone biopsy revealed vascular infiltration consistent with amyloid Home furosemide discontinued for unclear reasons; previous dosing 80mg BID PO Received Lasix 40 mg IV in ED; continue BID per cardiology recommendations -ECHO ordered and pending -Strict IOs, Low sodium diet, monitor on telemetry, daily weights -Cardiology on consult: -Continue IV lasix BID per cardiology -CXR in am to assess pleural effusions -Apixaban to start when cardiology comfortable, Pulm no suspicion for impending procedure given no respiratory distress and improvement #Pleural effusion: Acute uncontrolled CXR: Left lower lung airspace opacity. which may represent atelectasis, pneumonia, and/or aspiration. Cardiomegaly and mild pulmonary edema. Moderate left and small right pleural effusions. -Pulmonary consult was placed on admission to evaluate for possible thoracentesis if necessary Likely 2/2 acute heart failure and will improve with diuresis, appreciate As above #Tachybrady syndrome s/p pacemaker 01/13 #Paroxysmal atrial tachycardia: Status post PPM dual-chamber placed on 01/13 at [facility] Complicated with PNX post procedure;no chest tube Interrogation of pacemaker while here Continue Amiodarone 200mg BID Continue ASA Discuss anticoagulation with Cards given history of recent GIB (Reported to resume AC 5 days s/p 01/10 ERCP) #Gastric Ulcer #Hiatal Hernia #Choledocholithiasis s/p biliary sphincterotomy with stone excretion -Discuss resumption of AC with Cards (now 2 weeks s/p PPM and ERCP) -Continue PPI BID for 3 months s/p EGD on 01/10 (EOT 04/10/2023) #Hypothyroid -Continue home Synthroid 50mcg #Chronic Hypotension -Continue Midodrine 2.5 mg TID Disposition: PCP: Dr. Swenson CODE STATUS: Full code VTE prophylaxis: heparin q8 hours, plan to start Eliquis in am Admission and Anticipated Discharge Date Admission Date: January 27, 2023 Results & Data Results & Data Vital Signs (Past 12 Hours) Vital Signs Temp Pulse Resp BP Pulse Ox O2 Del Method O2 Flow Rate 01/28/23 07:51 36.7 C 60 19 95/61 L 96 Nasal Cannula 1.5 01/28/23 03:10 36.4 C L 61 20 98/62 L 95 Nasal Cannula 01/27/23 23:00 36.6 C 60 18 112/69 95 Nasal Cannula 2
--- NOTE | 2023-01-28 10:02 | Pulmonary Consultation ---
Date of Consultation January 28, 2023 Assessment & Plan (1) Acute on chronic heart failure with preserved ejection fraction (HFpEF): (2) Pleural effusion due to CHF (congestive heart failure): (3) Dyspnea on exertion: Plan 77-year-old female with history of cardiac amyloidosis with recurrent pleural effusions. Now that she is back on her Lasix regimen, her shortness of breath and dyspnea have greatly improved. We will hold off on thoracentesis at this time as she is clinically improved. Recommend repeating a chest x-ray in the next 48 to 72 hours. No need to hold anticoagulation from a pulmonary perspective at this time as I am not anticipating doing a thoracentesis. No further recommendation from a pulmonary standpoint at this time. Please call with questions. History of Present Illness Reason for Consultation: Bilateral pleural effusions secondary to amyloidosis Attending Physician: Shawanda Luis MD History of Present Illness 77-year-old female who recently discontinued the use of her Lasix and start developing shortness of breath and lower extremity swelling. She has been g etting IV diuresis in the hospital and feels substantially improved. She is off of supplemental oxygen and saturating in the 90s on room air. She denies any cough or chest pain. She denies any shortness of breath at rest at this time. Of note, I did see the patient in September 2021 and performed a thoracentesis at that time. The right pleural fluid was sent for cytology and was negative on 10/19/2021. She denies any fevers, chills, night sweats or chest pain. She is currently getting Lasix 40 mg twice daily. Allergies Allergy/AdvReac Type Severity Reaction Status Date / Time iron Allergy Rash Verified 01/27/23 15:23 Home Medications Medication Instructions Recorded Confirmed Type cyanocobalamin (vitamin B-12) 1,000 mcg PO QAM 05/14/21 01/27/23 History 1,000 mcg tablet (Vitamin B-12) sucralfate 100 mg/mL oral 10 ml PO QID PRN Gi Upset 11/22/22 01/27/23 History suspension aspirin 81 mg tablet,delayed 81 mg PO QAM 01/07/23 01/27/23 History release amiodarone 200 mg tablet 200 mg PO BID #60 tabs 01/15/23 01/27/23 Rx pantoprazole 40 mg tablet,delayed 40 mg PO BID #60 tabs 01/15/23 01/27/23 Rx release levothyroxine 50 mcg tablet 50 mcg PO QAM 01/27/23 01/27/23 History midodrine 2.5 mg tablet 2.5 mg PO TIDM 01/27/23 01/27/23 History Patient History Medical History (Updated 01/28/23 @ 10:02 by Brett Griggs MD) Acute combined systolic and diastolic CHF, NYHA class 3 Acute on chronic diastolic (congestive) heart failure Acute on chronic heart failure with preserved ejection fraction (HFpEF) Cardiac amyloidosis Chronic diastolic heart failure Dyspnea on exertion Elevated troponin GI bleed Multiple myeloma Nausea & vomiting Pleural effusion due to CHF (congestive heart failure) Surgical History History of colonoscopy History of tubal ligation Family History Father , 50s Stroke Mother , 90 Coronary heart disease Social History Smoking Status: Never smoker Second Hand Exposure: No; Do You Dip or Chew Tobacco: No; Hx Alcohol Use: No Hx Substance Use: No Preferred Language: Urdu 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: Effective Telehealth Nurse Educator Required: No Beliefs That Will Affect Care: None marital status: Current Living Situation: Spouse Current Living Situation Comment: with Other Information That Helps Us Care for You: No Feels Safe at Home: Yes Safety Concerns: Feels Safe At This Time Assistive Devices: Glasses and Walker Review of Systems Review of Systems: All systems reviewed & are unremarkable except as noted in HPI & below Physical Exam Physical Exam: Constitutional: Patient appears to be of their stated age. Patient is in no apparent distress. Patient is well-developed. Eyes: Pupils are equal round and reactive to light. Conjunctivae are normal. Anicteric sclera. Ears nose, mouth and throat: Deferred. Neck: Trachea is midline. Visual inspection is normal. Respiratory: Mild crackles at the bases bilaterally. No wheezes. No increased work of breathing. Cardiovascular: Regular rate and rhythm. No murmurs. No edema. Gastrointestinal: Normal bowel sounds, soft, nontender and nondistended. No hepatosplenomegaly noted. Musculoskeletal: No cyanosis. Patient is able to move all extremities. Strength is 5 out of 5 in the upper and lower extremities. Skin: No rashes, warm dry and intact. Neurologic: No obvious focal neurological deficits seen. Psychiatric: Alert and oriented x3 with a euthymic affect. Results & Data Results & Data Vital Signs (Past 12 Hours) Vital Signs Temp Pulse Resp BP Pulse Ox O2 Del Method O2 Flow Rate 01/28/23 09:43 Room Air 01/28/23 07:51 36.7 C 60 19 95/61 L 96 Nasal Cannula 1.5 01/28/23 03:10 36.4 C L 61 20 98/62 L 95 Nasal Cannula 01/27/23 23:00 36.6 C 60 18 112/69 95 Nasal Cannula 2 PG Care Time/CCT Total # of Minutes Spent Total Time Spent with Patient: Total time spent is greater than 50% in coordination of care (as documented) at patient's floor/unit and/or counseling patient: Coding Level of Care Code 88584 INT INP/OBS CARE 2/55MIN Diagnoses Acute on chronic heart failure with preserved ejection fraction (HFpEF) I50.33 Pleural effusion due to CHF (congestive heart failure) I50.9 Dyspnea on exertion R06.09
[2023-01-28] MEDS: HEPARIN SOD 5,000 UNIT/0.5 ML VIAL SQ SCH (20:26)
[2023-01-29] MEDS: HEPARIN SOD 5,000 UNIT/0.5 ML VIAL SQ SCH ×3 (06:18→20:39)
[2023-01-29] MEDS: LEVOTHYROXINE SODIUM 50 MCG TABLET PO SCH (06:18)
[2023-01-29 06:42] LABS: Hematocrit (blood only) 36.6 % (37.0-47.0); Hemoglobin 11.9 g/dl (12.0-16.0); Mean Corpuscular Hemoglobin 28.9 pg (25.0-34.0); Mean Corpuscular Hgb Conc 32.5 g/dL (32.0-36.0); Mean Corpuscular Volume 88.8 fL (80.0-100.0); Mean Platelet Volume 11.2 fL (9.4-12.4); Platelet Count 165 K/uL (130-400); RDW Coefficient of Variation 16.6 % (11.5-14.5); RDW Standard Deviation 53.1 fL (36.4-46.3); Red Blood Count 4.12 M/uL (4.20-5.40); White Blood Count 4.28 K/ul (4.8-10.8)
--- NOTE | 2023-01-29 06:54 | Cardiology Progress Note ---
Date of Service January 29, 2023 Assessment & Plan (1) Chronic heart failure with preserved ejection fraction (HFpEF): (2) Cardiac amyloidosis: (3) Tachy-walker syndrome: (4) Paroxysmal atrial fibrillation: (5) Status post placement of cardiac pacemaker: (6) Pneumothorax on left: (7) Pleural effusion: Plan IMPRESSION: Medically complex 77 year old female with PMH of cardiac amyloid, PAF, TBS s/p PPM. Presents to [facility] ED due to progressive dyspnea. Found to be in acute on chronic diastolic CHF with a BL pleural effusions (L>R). Left pnx resolved. It appears diuretic therapy was inadvertently discontinued during hospitalization approximately 2 weeks ago. (Patient previously on 80 mg twice daily). PLAN: Acute on chronic HFpEF/pleural effusion: -Volume status improving, but patient remains hypervolemic. Continue diuresis with IV Lasix, 40 mg BID. Consider transition to oral in the next 24-48 hours. -Appreciate pulmonary input regarding left pleural effusion and potential thoracentesis. For now holding off on thoracentesis-- CXR this am: No change in moderate left and small right pleural effusions with with mild interstitial pulmonary edema. -Monitor renal function and electrolytes. Replace K to a goal of 4.0 and a mag of 2.0. KCL 20 meq BID started today. BMP tomorrow. - 2g sodium diet, strict I&O, daily weights. -CHF EDU PAF/TBS s/p PPM: -Device interrogated this admission showing stable thresholds. -Continue amiodarone 200 mg BID -Anticoagulation appears to remain hold from last admission due to GIB (01/12)-- will continue to hold until evaluated by pulmonary due to possible ne ed for thoracentesis. Chronic hypotension: -Continue midodrine as ordered Case discussed with Dr. Mathews-- will follow. Admission and Anticipated Discharge Date Admission Date: January 27, 2023 Supervising Physician Co-Signing Physician Notes Patient seen and examined at the bedside. Shortness of breath improved. Abdominal bloating less prominent. Denies chest pain or palpitations. Telemetry reveals atrial paced rhythm at 60 bpm. PE: Gen: AAOx3. Heart: Regular rhythm, normal S1-S2. No murmur. Lungs: Diminished breath sounds left lower and midlung dow. No wheeze.Abd: Mild distention without rebound or guarding. Extremities: Trace ankle edema. A/P: Agree with above BEZEL CUTTER history, physical exam, assessment and plan. 77-year-old female admitted with acute decompensated heart failure with large left pleural effusion. Symptomatically improved with IV diuretic therapy. Repeat chest x-ray unchanged. Continue Lasix 40 mg IV twice daily. Follow fluid balance, GFR, electrolyte and daily weights. Subjective Medically complex 77-year-old female with a past medical history of AL cardiac amyloid, paroxysmal atrial fibrillation and tachybradycardia syndrome status po st permanent pacemaker. Initially presented to [facility] emergency department with progressive shortness of breath. Outpatient x-ray demonstrating an enlarging left-sided pleural effusion. It appears that diuretic therapy was inadvertently discontinued approximately 2 weeks ago. Normally maintains on furosemide 80 mg twice daily. Patient presenting with acute on chronic diastolic CHF with a 10 pound weight gain and abdominal bloating/early satiety. 01/27/2023: Diuretic therapy restarted. Patient was given a one-time dose of 40 mg of IV Lasix in the emergency department and transition to IV Lasix 40 mg twice daily. Pulmonary medicine consulted due to left-sided pleural effusion, ? Thoracentesis. 01/28/2023: Volume status dramatically improved with IV Lasix. Patient was continued on Lasix 40 mg twice daily Thoracentesis deferred by pulmonary due to improving respiratory status. CXR in the am to reassess L pleural effusion. Pacemaker interrogated stable atrial threshold 01/29/2023: Upon entrance into the room patient resting comfortably in bed. Overall improvement to her shortness of breath and abdominal bloating over the last 24 hours. Continues to have some mild dyspnea with exertion however she has been out ambulating in the halls without difficulty. Improved appetite. Notes chronic orthopnea but denies PND. No lower extremity edema. Denies pal pitations or lightheadedness CXR: 1. No change in moderate left and small right pleural effusions with associated airspace opacities which favor atelectasis. 2. Cardiomegaly with mild interstitial pulmonary edema. Tele: Paced with PVCs 60s I&O: -3.2L Weight: 66.4 kg >> 62.9 kg >> 61.2 kg Review of Systems Review of Systems: All systems reviewed & are unremarkable except as noted in HPI & below Physical Exam Constitutional: WD/WN, vitals as above no acute distress Neck: normal visual inspection and trachea midline Respiratory: normal respiratory effort and + cough; no labored breathing Auscultation: + diminished lung sounds, + crackles and + wheezes; no rhonchi Cardiovascular: Rate/Rhythm: regular rate and regular rhythm Heart Sounds: + murmur (+systolic murmur ) Vessels: no JVD Extremities: no edema Chest (Breasts): Chest: + pacemaker Gastrointestinal (Abdomen): Percussion/Palpation: abdomen soft; abdomen nontender Skin: no rashes, warm and dry Psychiatric: A+Ox3, euthymic affect Results & Data Vital Signs (Past 12 Hours) Vital Signs Temp Pulse Resp BP Pulse Ox O2 Del Method 01/29/23 02:57 36.4 C L 60 18 97/60 L 92 Room Air 01/28/23 22:44 36.4 C L 63 18 112/60 92 Room Air 01/28/23 19:19 36.8 C 65 18 118/67 92 Room Air Laboratory Results CBC 01/29/23 Range/Units 06:12 WBC 4.28 L (4.8-10.8) K/ul RBC 4.12 L (4.20-5.40) M/uL Hgb 11.9 L (12.0-16.0) g/dl Hct 36.6 L (37.0-47.0) % Plt Count 165 (130-400) K/uL Comprehensive Metabolic Panel 01/29/23 Range/Units 06:12 Sodium 138 (136-145) mmol/L Potassium 3.7 (3.5-5.1) mmol/L Chloride 102 (98-107) mmol/L Carbon Dioxide 29 (21-32) mmol/L BUN 17 (6-23) mg/dl Creatinine 0.75 (0.6-1.2) mg/dl Glucose 85 (70-99(Fasting)) mg/dl Calcium 8.8 (8.6-10.3) mg/dl Intake and Output 01/28/23 01/29/23 01/29/23 22:59 06:59 14:59 Intake Total 240 / 970 Output Total 450 / 2200 950 / 2200 Balance -210 / -1230 -950 / -1230 Intake: Oral 240 / 970 Output: Urine 450 / 2200 950 / 2200 Other: Weight 61.2 kg Weight Measurement Method Standing Scale
[2023-01-29 06:58] LABS: BUN Creatinine Ratio 22.7 (10-20); Calcium 8.8 mg/dl (8.6-10.3); Creatinine Clr Calc Pharmacy 52.8 ml/min; Est GFR (African American) 89.7 ml/min; Est GFR (Non-African American) 77.4 ml/min; Magnesium 1.9 mg/dl (1.7-2.4); Phosphorus 4.1 mg/dl (2.5-4.9); Potassium 3.7 mmol/L (3.5-5.1)
--- NOTE | 2023-01-29 07:54 | XRay Report ---
XR chest 2V PA/lateral CLINICAL HISTORY: Left pleural effusion. COMPARISON STUDY: Chest CT and chest radiograph January 27, 2023. FINDINGS: Dual lead left subclavian pacer is in place. Moderate left and small right pleural effusion s with associated bibasilar opacities are similar to prior exam. Interstitial thickening persists. Ca rdiomegaly is again noted. A radiodensity within the intrathoracic portion of the stomach is again no ab. There is no pneumothorax. Biliary stent is incidentally noted. IMPRESSION: 1. No change in moderate left and small right pleural effusions with associated airspace opacities wh ich favor atelectasis. 2. Cardiomegaly with mild interstitial pulmonary edema. ACT 112: Negative or not required by law. Electronically signed by: Ayan Guerrero M.D. 01/29/2023 7:51 AM
[2023-01-29] MEDS: MIDODRINE HCL 2.5 MG TAB PO SCH ×3 (08:05→18:29)
[2023-01-29] MEDS: CYANOCOBALAMIN (B-12) 500 MCG TABLET PO SCH (08:06)
[2023-01-29] MEDS: ASPIRIN 81 MG ECTAB PO SCH (08:06)
[2023-01-29] MEDS: FUROSEMIDE 40 MG/4 ML VIAL IV SCH ×2 (08:07→18:27)
[2023-01-29] MEDS: PANTOprazole 40 MG TAB PO SCH ×2 (08:07→20:39)
[2023-01-29] MEDS: AMIODARONE 200 MG TAB PO SCH ×2 (08:07→20:39)
--- NOTE | 2023-01-29 09:06 | Hospitalist Progress Note ---
Date of Service January 29, 2023 Assessment & Plan (1) Acute on chronic heart failure with preserved ejection fraction (HFpEF): (2) Pleural effusion: (3) Cardiac amyloidosis: (4) Paroxysmal atrial tachycardia: Plan Ms. Hogue is a 77 year old woman with complex medical history of cardiac amyloidosis, paroxysmal A-fib, tachybradycardia syndrome status post pacemaker placement 01/13/2023, and other comorbidities was admitted on 01/27 for acute on chronic heart failure exacerbation. Patient is responding well to IV diuresis. Pulmonary was consulted for pleural effusions, who at this time feels thoracentesis will be unnecessary as patient improving with diuresis and with m inimal o2 requirements. Cardiology intends for AC to start; however, given concern for effusions, wish to wait until CXR completed on 01/29 to ensure no anticipated thora. Patient will be able to start eliquis 5mg BID--after calling pharmacy, cost after insurance will be 19.50$. 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 -Strict IOs, Low sodium diet, monitor on telemetry, daily weights -urinary incontinence noted and there were possible concerns about missed voids, bladder scan revealed no urinary retention, andrade placed for more accurate I/Os and for comfort on multidaily dose IV lasix, now with an oxygen requirement and having to get up weak and out of breath to the bedside commode. -SOB seemed to be improved even prior to evening lasix dose. Likely related to ongoing pleural effusions per CXR this am. -Cardiology on consult: -Continue IV lasix BID per cardiology Abdominal pain: no elevation in LFTs to this point. CT a/p given pain and generalized bloating of abdomen per patient after recent placement of biliary stent. She is questioning heartburn, known recently located nonbleeding gastric ulcer with no stigmata of bleeding. Will add carafate to see if this improves her symptoms in addition to continuing Protonix 40mg BID. UTI: reports of recent dysuria, UCx growing Klebsiella, started on Augmentin. Question Augmentin as a cause of her abdominal symptoms reported today #Pleural effusion: Acute uncontrolled CXR: Left lower lung airspace opacity. which may represent atelectasis, pneumonia, and/or aspiration. Cardiomegaly and mild pulmonary edema. Moderate left and small right pleural effusions. -Pulmonary consult was placed on admission to evaluate for possible thoracentesis, however, no plans at this time as she was improved and not requiring oxygen. Likely 2/2 acute heart failure and will improve with diuresis, appreciate #Tachybrady syndrome s/p pacemaker 01/13 #Paroxysmal atrial tachycardia: Status post PPM dual-chamber placed on 01/13 at [facility] Complicated with PNX post procedure; no chest tube Interrogation of pacemaker while here Continue Amiodarone 200mg BID Continue ASA restarted apixaban #Gastric Ulcer #Hiatal Hernia #Choledocholithiasis s/p biliary sphincterotomy with stone excretion -restarting apixaban -recently admitted with LFT elevation and choledocholithiasis s/p ERCP with stone removal and stent placement. -not candidate for cholecystectomy per general surgery so will need EUS GB wtih Axios as OP -plan for outpatient Axios stent at [facility] to allow gallbladder drainage -Continue PPI BID for 3 months s/p EGD on 01/10 (EOT 04/10/2023) #Hypothyroid -chronic, stable. Continue home Synthroid 50mcg #Chronic Hypotension -Continue Midodrine 2.5 mg TID Disposition: PCP: Dr. Swenson CODE STATUS: Full code VTE prophylaxis: apixaban I spent a total of 60 minutes coordinating, documenting, and providing care for this patient excluding time spent in the performance of separately billed services Lucia Harrison DO [facility] Hospitalist Admission and Anticipated Discharge Date Admission Date: January 27, 2023 Subjective Medically complex 77-year-old female with a past medical history of AL cardiac amyloid, paroxysmal atrial fibrillation and tachybradycardia syndrome status post permanent pacemaker. Initially presented to [facility] emergency department with progressive shortness of breath. Outpatient x-ray demonstrating an enlarging left-sided pleural effusion. It appears that diuretic therapy was inadvertently discontinued approximately 2 weeks ago. Normally maintains on furosemide 80 mg twice daily. Patient presenting with acute on chronic diastolic CHF with a 10 pound weight gain and abdominal bloating/early satiety. 01/27/2023: Diuretic therapy restarted. Patient was given a one-time dose of 40 mg of IV Lasix in the emergency department and transition to IV Lasix 40 mg twice daily. Pulmonary medicine consulted due to left-sided pleural effusion, declined thoracentesis at this time. 01/28/2023: Volume status dramatically improved with IV Lasix. Patient was continued on Lasix 40 mg twice daily Thoracentesis deferred by pulmonary due to improving respiratory status. CXR in the am to reassess L pleural effusion. Pacemaker interrogated stable atrial threshold 01/29/2023: Today patient is feeling her abdomen is bloated and is reporting some pain in her RUQ. She had some transient shortness of breath that was subjectively improved with the addition of 2LPM supplemental oxygen. Possible acid reflux symptoms despite ongoing PPI BID? Noted hiatal hernia and she states this feels as if it is painful. Reviewed CXR which is not much improved. Weight: 66.4 kg >> 62.9 kg >> 61.2 kg Net 3.5 L down since admission. Physical Exam Physical Exam: CONSTITUTIONAL: WNWD, vitals as above, NAD EYES: normal conjunctivae, no scleral icterus ENT: external ear and nose normal, MMM NECK: trachea midline RESPIRATORY: clear to auscultation bilaterally with decreased breath sounds at the bases bilaterally, no crackles, rales or wheezes, normal respiratory effort CARDIOVASCULAR: regular rate and rhythm, S1 and 2 heard without murmurs, gallops or rubs, no JVD, no peripheral edema CHEST: inspection of chest was normal GASTROINTESTINAL: soft, nontender, ND, no guarding MUSCULOSKELETAL: moves extremities symmetrically but has generalized weakness, head is normocephalic and atraumatic SKIN: warm and dry NEUROLOGIC: CN 2-12 grossly intact, no sensory deficit, normal cognition, normal speech, no tremor PSYCHIATRIC: alert cooperative and oriented to person, place and time. Euthymic mood, makes good eye contact, language grossly intact, recent and remote memory grossly intact. Results & Data Results & Data Vital Signs (Past 12 Hours) Vital Signs Temp Pulse Resp BP Pulse Ox O2 Del Method 01/29/23 07:48 36.6 C 61 18 117/73 93 Room Air 01/29/23 02:57 36.4 C L 60 18 97/60 L 92 Room Air 01/28/23 22:44 36.4 C L 63 18 112/60 92 Room Air Laboratory Results Short CBC 01/29/23 Range/Units 06:12 WBC 4.28 L (4.8-10.8) K/ul Hgb 11.9 L (12.0-16.0) g/dl Hct 36.6 L (37.0-47.0) % Plt Count 165 (130-400) K/uL BMP 01/29/23 06:12 Sodium 138 Potassium 3.7 Chloride 102 Carbon Dioxide 29 BUN 17 Creatinine 0.75 Glucose 85 Calcium 8.8 Diagnostic Findings Chest X-Ray 01/29/23 06:00 XR chest 2V PA/lateral CLINICAL HISTORY: Left pleural effusion. COMPARISON STUDY: Chest CT and chest radiograph January 27, 2023. FINDINGS: Dual lead left subclavian pacer is in place. Moderate left and small right pleural effusions with associated bibasilar opacities are similar to prior exam. Interstitial thickening persists. Cardiomegaly is again noted. A radiodensity within the intrathoracic portion of the stomach is again noted. There is no pneumothorax. Biliary stent is incidentally noted. IMPRESSION: 1. No change in moderate left and small right pleural effusions with associated airspace opacities which favor atelectasis. 2. Cardiomegaly with mild interstitial pulmonary edema. ACT 112: Negative or not required by law. Electronically signed by: Ayan Guerrero M.D. 01/29/2023 7:51 AM Medications Administered Current Inpatient Medications Acetaminophen (Acetaminophen 325 Mg Tab) 650 mg PO Q4H PRN PRN Reason: Pain or Fever Stop: 02/26/23 15:34 Al Hydrox/Mg Hydrox/Simethicone (Aluminum/Magnesium Susp 30 Ml Udc) 15 ml PO Q4H PRN PRN Reason: Dyspepsia Stop: 02/26/23 15:34 Amiodarone HCl (Amiodarone 200 Mg Tab) 200 mg PO BID [facility] Stop: 02/26/23 20:59 Last Admin: 01/29/23 08:07 Dose: 200 mg Apixaban (Apixaban 5 Mg Tablet) 5 mg PO BID [facility] Stop: 02/27/23 20:59 Aspirin (Aspirin 81 Mg Ectab) 81 mg PO QAM [facility] Stop: 02/27/23 08:59 Last Admin: 01/29/23 08:06 Dose: 81 mg Cyanocobalamin (Cyanocobalamin (B-12) 500 Mcg Tablet) 1,000 mcg PO QAM [facility] Stop: 02/27/23 08:59 Last Admin: 01/29/23 08:06 Dose: 1,000 mcg Furosemide (Furosemide 40 Mg/4 Ml Vial) 40 mg IV BID17 [facility]YANN Stop: 02/26/23 16:59 Last Admin: 01/29/23 08:07 Dose: 40 mg Heparin Sodium (Porcine) (Heparin Sod 5,000 Unit/0.5 Ml Vial) 5,000 units SQ Q8 RYANN Stop: 02/27/23 21:59 Last Admin: 01/29/23 06:18 Dose: Not Given Levothyroxine Sodium (Levothyroxine Sodium 50 Mcg Tablet) 50 mcg PO DAILYBB RYANN Stop: 02/27/23 06:29 Last Admin: 01/29/23 06:18 Dose: 50 mcg Magnesium Hydroxide (Magnesium Hydroxide Susp 30 Ml Udc) 30 ml PO Q12H PRN PRN Reason: Constipation Stop: 02/26/23 15:34 Midodrine (Midodrine Hcl 2.5 Mg Tab) 2.5 mg PO TIDM RYANN Stop: 02/26/23 16:59 Last Admin: 01/29/23 08:05 Dose: 2.5 mg Ondansetron HCl (Ondansetron Inj 2 Mg/Ml 2 Ml Vial) 4 mg IV Q6H PRN PRN Reason: Nausea Stop: 02/26/23 15:34 Pantoprazole Sodium (Pantoprazole 40 Mg Tab) 40 mg PO BID RYANN Stop: 02/26/23 20:59 Last Admin: 01/29/23 08:07 Dose: 40 mg Polyethylene Glycol (Polyethylene (Miralax) 17 Gm Pack) 17 gm PO DAILY PRN PRN Reason: Constipation Stop: 02/26/23 15:34
[2023-01-29] MEDS: POTASSIUM CHLORIDE CRTAB 20 MEQ TABCR PO SCH ×2 (10:31→20:38)
[2023-01-29] MEDS: AMOXICILLIN/CLAVULANATE 875 MG TAB PO SCH ×2 (11:10→18:26)
[2023-01-29] MEDS ORDERED: OPTIRAY 320 100ml IV ONE (22:31)
--- NOTE | 2023-01-29 23:45 | CT Scan Report ---
Exam(s): CT ABDOMEN + PELVIS With Contrast IV Amt: 90 ml optiray 320 EXAM: CT Abdomen and Pelvis With Intravenous Contrast CLINICAL HISTORY: Reason for exam: abdominal discomfort, recent ERCP. TECHNIQUE: Axial computed tomography images of the abdomen and pelvis with intravenous contrast. CTDI is 13.82 mGy and DLP is 667.98 mGy-cm. Automated exposure control was utilized for the study. A dose lowering technique was utilized adhering to the principles of ALARA. CONTRAST: Patient received 90 ml optiray 320 of IV contrast COMPARISON: No relevant prior studies available. FINDINGS: Lung bases: Unremarkable. No mass. No consolidation. ABDOMEN: Liver: Unremarkable. No mass. Gallbladder and bile ducts: Gallbladder sludge/stones. No ductal dilation. Pancreas: Unremarkable. No mass. No ductal dilation. Spleen: Unremarkable. No splenomegaly. Adrenals: Unremarkable. No mass. Kidneys and ureters: Unremarkable. No solid mass. No hydronephrosis. Stomach and bowel: Unremarkable. No acute diverticulitis. No bowel obstruction. No free air. PELVIS: Appendix: No findings to suggest acute appendicitis. Bladder: Huerta catheter terminates in a decompressed urinary bladder which demonstrates wall thickening measuring up to 11 mm. Correlate for UTI. Reproductive: Unremarkable as visualized. ABDOMEN and PELVIS: Intraperitoneal space: Abdominal and pelvic ascites. Common bile duct stent. Bones/joints: Degenerative changes of the spine. No acute fracture. No dislocation. Soft tissues: Anasarca. Vasculature: Atherosclerotic changes of the aorta. No abdominal aortic aneurysm. Lymph nodes: Unremarkable. No enlarged lymph nodes. IMPRESSION: 1. No acute diverticulitis. No bowel obstruction. No free air. 2. Abdominal and pelvic ascites. Common bile duct stent. 3. Huerta catheter terminates in a decompressed urinary bladder which demonstrates wall thickening measuring up to 11 mm. Correlate for UTI. Electronically signed by: Bolivar Love MD 01/29/23 23:44 PM
[2023-01-30] MEDS: LEVOTHYROXINE SODIUM 50 MCG TABLET PO SCH (05:30)
[2023-01-30 06:15] LABS: Hemoglobin 12.1 g/dl (12.0-16.0); Mean Corpuscular Hemoglobin 29.2 pg (25.0-34.0); Mean Corpuscular Hgb Conc 32.7 g/dL (32.0-36.0); Mean Corpuscular Volume 89.4 fL (80.0-100.0); Mean Platelet Volume 11.6 fL (9.4-12.4); Platelet Count 154 K/uL (130-400); RDW Coefficient of Variation 16.7 % (11.5-14.5); RDW Standard Deviation 53.7 fL (36.4-46.3); Red Blood Count 4.14 M/uL (4.20-5.40); White Blood Count 3.36 K/ul (4.8-10.8)
[2023-01-30 06:48] LABS: Albumin Globulin Ratio 0.7 (0.9-2); Albumin Level 3.2 gm/dl (3.4-5.0); BUN Creatinine Ratio 22.2 (10-20); Bilirubin,Total 0.9 mg/dl (0.2-1.0); Calcium 8.9 mg/dl (8.6-10.3); Est GFR (African American) 94.3 ml/min; Est GFR (Non-African American) 81.3 ml/min; Globulin 4.6 gm/dl (2.5-4.0); Potassium 4.2 mmol/L (3.5-5.1); Total Protein 7.8 gm/dl (6.0-8.3)
[2023-01-30] MEDS ORDERED: MAGNESIUM OXIDE 400 MG TAB PO ONE (07:19)
--- NOTE | 2023-01-30 07:20 | Cardiology Progress Note ---
Date of Service January 30, 2023 Assessment & Plan (1) Chronic heart failure with preserved ejection fraction (HFpEF): (2) Cardiac amyloidosis: (3) Tachy-walker syndrome: (4) Paroxysmal atrial fibrillation: (5) Status post placement of cardiac pacemaker: (6) Pneumothorax on left: (7) Pleural effusion: Plan IMPRESSION: Medically complex 77 year old female with PMH of cardiac amyloid, PAF, TBS s/p PPM. Presents to [facility] ED due to progressive dyspnea. Found to be in acute on chronic diastolic CHF with a BL pleural effusions (L>R). Left pnx resolved. It appears diuretic therapy was inadvertently discontinued during hospitalization approximately 2 weeks ago. (Patient previously on 80 mg twice daily). PLAN: Acute on chronic HFpEF/pleural effusion: -Volume status improving, but patient remains hypervolemic. Continue diuresis with IV Lasix, 40 mg BID. Consider transition to oral in the next 24-48 hours. -Appreciate pulmonary input regarding left pleural effusion and potential thoracentesis. For now holding off on thoracentesis-- CXR this am: No change in moderate left and small right pleural effusions with with mild interstitial pulmonary edema. Eliquis 5 mg BID restarted this am by hospitalist service. -Monitor renal function and electrolytes. Replace K to a goal of 4.0 and a mag of 2.0. - 2g sodium diet, strict I&O, daily weights. -CHF EDU PAF/TBS s/p PPM: -Device interrogated this admission showing stable thresholds. -Continue amiodarone 200 mg BID -Eliquis 5 mg BID restarted this am by hospitalist service. Chronic hypotension: -Continue midodrine as ordered Case discussed with Dr. Mathews-- will follow. Admission and Anticipated Discharge Date Admission Date: January 27, 2023 Supervising Physician Co-Signing Physician Notes Patient seen and examined at the bedside. Shortness of breath improved. Fluid balance -2.2 L. Abdominal bloating less prominent. Andrade catheter placed overnight. Denies chest pain or palpitations. Telemetry reveals atrial paced rhythm at 60 bpm. PE: Gen: AAOx3. Heart: Regular rhythm, normal S1-S2. No murmur. Lungs: Diminished breath sounds left lower and midlung dow. No wheeze.Abd: Mild distention without rebound or guarding. Extremities: Trace ankle edema. 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 77-year-old female admitted with acute decompensated heart failure with large left pleural effusion. Continue Lasix 40 mg IV twice daily. Follow fluid balance, GFR, electrolyte and daily weights. Possible discharge in 24 to 48 hours. Subjective Medically complex 77-year-old female with a past medical history of AL cardiac amyloid, paroxysmal atrial fibrillation and tachybradycardia syndrome status post permanent pacemaker. Initially presented to [facility] emergency department with progressive shortness of breath. Outpatient x-ray demonstrating an enlarging left-sided pleural effusion. It appears that diuretic therapy was inadvertently discontinued approximately 2 weeks ago. Normally maintains on furosemide 80 mg twice daily. Patient presenting with acute on chronic diastolic CHF with a 10 pound weight gain and abdominal bloating/early satiety. 01/27/2023: Diuretic therapy restarted. Patient was given a one-time dose of 40 mg of IV Lasix in the emergency department and transition to IV Lasix 40 mg twice daily. Pulmonary medicine consulted due to left-sided pleural effusion, ? Thoracentesis. 01/28/2023: Volume status dramatically improved with IV Lasix. Patient was continued on Lasix 40 mg twice daily Thoracentesis deferred by pulmonary due to improving respiratory status. CXR in the am to reassess L pleural effusion. Pacemaker interrogated stable atrial threshold 01/29/2023: Diuresis continued with Lasix IV 40 mg twice daily. No indication for thoracentesis at this time per pulmonary due to improving respiratory status. Chest x-ray completed showed a moderate left and small right pleural effusion with mild interstitial pulmonary edema, unchanged from previous. 01/30/2023: Upon entrance into the room patient resting comfortably in bed. Overall improvement to her shortness of breath and abdominal bloating over the last 24 hours. Overnight experienced urinary retention-- andrade cath was placed. SOB subjectively improved. Ambulating in the halls without difficulty. Improved appetite. Notes chronic orthopnea but denies PND. No lower extremity edema. Denies palpitations or lightheadedness. Tele: Paced with PVCs 60s I&O: -5.2L Weight: 66.4 kg >> 62.9 kg >> 61.2 kg >>60.4 kg Labs: BMP stable. Electrolytes WNL. Review of Systems Review of Systems: All systems reviewed & are unremarkable except as noted in HPI & below Physical Exam Constitutional: WD/WN, vitals as above no acute distress Neck: normal visual inspection and trachea midline Respiratory: normal respiratory effort, + cough and + tachypneic; no labored breathing Auscultation: + diminished lung sounds, + crackles and + wheezes; no rhonchi Cardiovascular: Rate/Rhythm: regular rate and regular rhythm Heart Sounds: + murmur (+systolic murmur ) Vessels: no JVD Extremities: no edema Chest (Breasts): Chest: + pacemaker Gastrointestinal (Abdomen): Inspection/Auscultation: + abdomen distended Percussion/Palpation: abdomen soft and + abdomen firm; abdomen nontender Skin: no rashes, warm and dry Psychiatric: A+Ox3, euthymic affect Results & Data Vital Signs (Past 12 Hours) Vital Signs Temp Pulse Resp BP Pulse Ox O2 Del Method O2 Flow Rate 01/30/23 03:13 36.5 C 60 16 101/66 96 Room Air 01/29/23 22:48 36.5 C 61 16 102/61 95 Room Air 01/29/23 20:00 Nasal Cannula 2 01/29/23 19:24 36.5 C 60 16 108/65 96 Room Air Laboratory Results Cardiac Enzymes 01/30/23 Range/Units 05:40 AST 23 (13-39) U/L CBC 01/30/23 Range/Units 05:40 WBC 3.36 L (4.8-10.8) K/ul RBC 4.14 L (4.20-5.40) M/uL Hgb 12.1 (12.0-16.0) g/dl Hct 37.0 (37.0-47.0) % Plt Count 154 (130-400) K/uL Comprehensive Metabolic Panel 01/30/23 Range/Units 05:40 Sodium 138 (136-145) mmol/L Potassium 4.2 (3.5-5.1) mmol/L Chloride 102 (98-107) mmol/L Carbon Dioxide 31 (21-32) mmol/L BUN 16 (6-23) mg/dl Creatinine 0.72 (0.6-1.2) mg/dl Glucose 82 (70-99(Fasting)) mg/dl Calcium 8.9 (8.6-10.3) mg/dl AST 23 (13-39) U/L ALT 12 (7-52) U/L Alkaline Phosphatase 80 (34-104) U/L Total Protein 7.8 (6.0-8.3) gm/dl Albumin 3.2 L (3.4-5.0) gm/dl Intake and Output 01/29/23 01/30/23 01/30/23 22:59 06:59 14:59 Output Total 145 / 0 600 / 0 Balance -1450 / -0 -600 / -2049 Output: Urine 400 / 400 Urine Amount (Catheter) 1050 / 1650 600 / 1650 Andrade/Indwelling 1050 / 1650 600 / 1650 Other: Weight 60.4 kg Weight Measurement Method Standing Scale
[2023-01-30] MEDS: ASPIRIN 81 MG ECTAB PO SCH (08:02)
[2023-01-30] MEDS: SUCRALFATE 1 GM/10 ML UDC PO SCH ×4 (08:02→20:16)
[2023-01-30] MEDS: CYANOCOBALAMIN (B-12) 500 MCG TABLET PO SCH (08:03)
[2023-01-30] MEDS: AMOXICILLIN/CLAVULANATE 875 MG TAB PO SCH ×2 (08:04→16:58)
[2023-01-30] MEDS: POTASSIUM CHLORIDE CRTAB 20 MEQ TABCR PO SCH ×2 (08:05→20:15)
[2023-01-30] MEDS: MIDODRINE HCL 2.5 MG TAB PO SCH ×3 (08:06→16:59)
[2023-01-30] MEDS: AMIODARONE 200 MG TAB PO SCH ×2 (08:08→20:15)
[2023-01-30] MEDS: PANTOprazole 40 MG TAB PO SCH ×2 (08:09→20:15)
[2023-01-30] MEDS: APIXABAN 5 MG TABLET PO SCH ×2 (08:09→20:16)
[2023-01-30] MEDS: FUROSEMIDE 40 MG/4 ML VIAL IV SCH ×2 (08:10→16:59)
--- NOTE | 2023-01-30 09:25 | Hospitalist Progress Note ---
Date of Service January 30, 2023 Assessment & Plan (1) Acute on chronic heart failure with preserved ejection fraction (HFpEF): (2) Pleural effusion: (3) Cardiac amyloidosis: (4) Paroxysmal atrial tachycardia: Plan Ms. Hogue is a 77 year old woman with complex medical history of cardiac amyloidosis, paroxysmal A-fib, tachybradycardia syndrome status post pacemaker placement 01/13/2023, and other comorbidities was admitted on 01/27 for acute on chronic heart failure exacerbation. Patient is responding well to IV diuresis. Pulmonary was consulted for pleural effusions, who at this time feels thoracentesis will be unnecessary as patient improving with diuresis and with minimal o2 requirements. Cardiology intends for AC to start; however, given concern for effusions, wish to wait until CXR completed on 01/29 to ensure no anticipated thora. Patient will be able to start eliquis 5mg BID--after calling pharmacy, cost after insurance will be 19.50$. #Acute Heart Failure with preserved EF 2/2 Cardiac Amyloidosis Infiltrative cardiomyopathy per echocardiogram at [facility] 02/2019 showing normal LV systolic function and severe concentric LVH and elevated diastolic filling pressure Bone biopsy revealed vascular infiltration consistent with amyloid Home furosemide discontinued for unclear reasons; previous dosing 80mg BID PO Received Lasix 40 mg IV in ED; continue BID per cardiology recommendations -ECHO from Oct 2022 reveals preserved EF 60-65% with mild MR and severe TR with grade 3 DD. -Strict IOs, Low sodium diet, monitor on telemetry, daily weights -urinary incontinence noted and there were possible concerns about missed voids, bladder scan revealed no urinary retention, andrade placed for more accurate I/Os and for comfort on multidaily dose IV lasix, now with an oxygen requirement and having to get up weak and out of breath to the bedside commode. -SOB seemed to be improved even prior to evening lasix dose. Likely related to ongoing pleural effusions per CXR this am. -Cardiology on consult: -Continue IV lasix BID per cardiology Abdominal pain: no elevation in LFTs to this point. CT a/p reveals no postoperative issues after recent biliary stent. Ascites is present likely cardiac in nature. At this point given no evidence of SBP or ongoing tenderness, feel paracentesis for diagnosis would be redundant and put her at risk for complications. Continue PPI p.o. twice daily and added Carafate, will continue. UTI: reports of recent dysuria, UCx growing Klebsiella, started on Augmentin. Question Augmentin as a cause of her abdominal symptoms reported yesterday-she seems to be tolerating this well-continue #Pleural effusion: Acute uncontrolled CXR: Left lower lung airspace opacity. which may represent atelectasis, pneumonia, and/or aspiration. Cardiomegaly and mild pulmonary edema. Moderate left and small right pleural effusions. -Pulmonary consult was placed on admission to evaluate for possible thoracentesis, however, no plans at this time as she was improved and not requiring oxygen. Likely 2/2 acute heart failure and will improve with diuresis, appreciate #Tachybrady syndrome s/p pacemaker 01/13 #Paroxysmal atrial tachycardia: Status post PPM dual-chamber placed on 01/13 at [facility] Complicated with PNX post procedure; no chest tube Interrogation of pacemaker while here Continue Amiodarone 200mg BID Continue ASA restarted apixaban #Gastric Ulcer #Hiatal Hernia #Choledocholithiasis s/p biliary sphincterotomy with stone excretion -restarting apixaban -recently admitted with LFT elevation and choledocholithiasis s/p ERCP with stone removal and stent placement. -not candidate for cholecystectomy per general surgery so will need EUS GB wtih Axios as OP -plan for outpatient Axios stent at [facility] to allow gallbladder drainage -Continue PPI BID for 3 months s/p EGD on 01/10 (EOT 04/10/2023) #Hypothyroid -chronic, stable. Continue home Synthroid 50mcg #Chronic Hypotension -Continue Midodrine 2.5 mg TID Disposition: PCP: Dr. Swenson CODE STATUS: Full code VTE prophylaxis: apixaban I spent a total of 60 minutes coordinating, documenting, and providing care for this patient excluding time spent in the performance of separately billed services DO [facility] Hospitalist Admission and Anticipated Discharge Date Admission Date: January 27, 2023 Subjective Medically complex 77-year-old female with a past medical history of AL cardiac amyloid, paroxysmal atrial fibrillation and tachybradycardia syndrome status post permanent pacemaker. Initially presented to [facility] emergency department with progressive shortness of breath. Outpatient x-ray demonstrating an enlarging left-sided pleural effusion. It appears that diuretic therapy was inadvertently discontinued approximately 2 weeks ago. Normally maintains on furosemide 80 mg twice daily. Patient presenting with acute on chronic diastolic CHF with a 10 pound weight gain and abdominal bloating/early satiety. 2 L not out overnight Right upper quadrant tenderness has resolved CT scan results reviewed with patient and her who is at bedside Ascites discussed and likely secondary to CHF giving ongoing pleural effusion and pulmonary edema Chest x-rays were reviewed compared to last month with both patient and her Patient reports epigastric soreness that improves when she sits up straight She reports the Carafate is helping her. Physical Exam Physical Exam: CONSTITUTIONAL: WNWD, vitals as above, NAD EYES: normal conjunctivae, no scleral icterus ENT: external ear and nose normal, MMM NECK: trachea midline RESPIRATORY: clear to auscultation bilaterally with decreased breath sounds at the bases bilaterally, no crackles, rales or wheezes, normal respiratory effort CARDIOVASCULAR: regular rate and rhythm, S1 and 2 heard without murmurs, gallops or rubs, no JVD, no peripheral edema CHEST: inspection of chest was normal GASTROINTESTINAL: soft, nontender, ND, no guarding MUSCULOSKELETAL: moves extremities symmetrically but has generalized weakness, head is normocephalic and atraumatic SKIN: warm and dry NEUROLOGIC: CN 2-12 grossly intact, no sensory deficit, normal cognition, normal speech, no tremor PSYCHIATRIC: alert cooperative and oriented to person, place and time. Euthymic mood, makes good eye contact, language grossly intact, recent and remote memory grossly intact. Results & Data Results & Data Vital Signs (Past 12 Hours) Vital Signs Temp Pulse Pulse Resp BP Pulse Ox O2 Del Method 01/30/23 07:40 Room Air 01/30/23 07:16 60 01/30/23 03:13 36.5 C 60 16 101/66 96 Room Air 01/29/23 22:48 36.5 C 61 16 102/61 95 Room Air Laboratory Results Short CBC 01/30/23 Range/Units 05:40 WBC 3.36 L (4.8-10.8) K/ul Hgb 12.1 (12.0-16.0) g/dl Hct 37.0 (37.0-47.0) % Plt Count 154 (130-400) K/uL BMP 01/30/23 05:40 Sodium 138 Potassium 4.2 Chloride 102 Carbon Dioxide 31 BUN 16 Creatinine 0.72 Glucose 82 Calcium 8.9 Liver Function 01/30/23 Range/Units 05:40 Total Bilirubin 0.9 (0.2-1.0) mg/dl AST 23 (13-39) U/L ALT 12 (7-52) U/L Alkaline Phosphatase 80 (34-104) U/L Albumin 3.2 L (3.4-5.0) gm/dl Diagnostic Findings Abdomen/Pelvis CT 01/29/23 17:16 Exam(s): CT ABDOMEN + PELVIS With Contrast IV Amt: 90 ml optiray 320 EXAM: CT Abdomen and Pelvis With Intravenous Contrast CLINICAL HISTORY: Reason for exam: abdominal discomfort, recent ERCP. TECHNIQUE: Axial computed tomography images of the abdomen and pelvis with intravenous contrast. CTDI is 13.82 mGy and DLP is 667.98 mGy-cm. Automated exposure control was utilized for the study. A dose lowering technique was utilized adhering to the principles of ALARA. CONTRAST: Patient received 90 ml optiray 320 of IV contrast COMPARISON: No relevant prior studies available. FINDINGS: Lung bases: Unremarkable. No mass. No consolidation. ABDOMEN: Liver: Unremarkable. No mass. Gallbladder and bile ducts: Gallbladder sludge/stones. No ductal dilation. Pancreas: Unremarkable. No mass. No ductal dilation. Spleen: Unremarkable. No splenomegaly. Adrenals: Unremarkable. No mass. Kidneys and ureters: Unremarkable. No solid mass. No hydronephrosis. Stomach and bowel: Unremarkable. No acute diverticulitis. No bowel obstruction. No free air. PELVIS: Appendix: No findings to suggest acute appendicitis. Bladder: Andrade catheter terminates in a decompressed urinary bladder which demonstrates wall thickening measuring up to 11 mm. Correlate for UTI. Reproductive: Unremarkable as visualized. ABDOMEN and PELVIS: Intraperitoneal space: Abdominal and pelvic ascites. Common bile duct stent. Bones/joints: Degenerative changes of the spine. No acute fracture. No dislocation. Soft tissues: Anasarca. Vasculature: Atherosclerotic changes of the aorta. No abdominal aortic aneurysm. Lymph nodes: Unremarkable. No enlarged lymph nodes. IMPRESSION: 1. No acute diverticulitis. No bowel obstruction. No free air. 2. Abdominal and pelvic ascites. Common bile duct stent. 3. Andrade catheter terminates in a decompressed urinary bladder which demonstrates wall thickening measuring up to 11 mm. Correlate for UTI. Electronically signed by: Bolivar Love MD 01/29/23 23:44 PM Medications Administered Current Inpatient Medications Acetaminophen (Acetaminophen 325 Mg Tab) 650 mg PO Q4H PRN PRN Reason: Pain or Fever Stop: 02/26/23 15:34 Al Hydrox/Mg Hydrox/Simethicone (Aluminum/Magnesium Susp 30 Ml Udc) 15 ml PO Q4H PRN PRN Reason: Dyspepsia Stop: 02/26/23 15:34 Amiodarone HCl (Amiodarone 200 Mg Tab) 200 mg PO BID COUNT INCLUDES THE [facility] Stop: 02/26/23 20:59 Last Admin: 01/30/23 08:08 Dose: 200 mg Amoxicillin/Clavulanate Potassium (Amoxicillin/Clavulanate 875 Mg Tab) 1 tab PO BIDM COUNT INCLUDES THE [facility]; Protocol Stop: 02/03/23 10:14 Last Admin: 01/30/23 08:04 Dose: 1 tab Apixaban (Apixaban 5 Mg Tablet) 5 mg PO BID COUNT INCLUDES THE [facility] Stop: 02/27/23 20:59 Last Admin: 01/30/23 08:09 Dose: 5 mg Aspirin (Aspirin 81 Mg Ectab) 81 mg PO QAM COUNT INCLUDES THE [facility] Stop: 02/27/23 08:59 Last Admin: 01/30/23 08:02 Dose: 81 mg Cyanocobalamin (Cyanocobalamin (B-12) 500 Mcg Tablet) 1,000 mcg PO QAM COUNT INCLUDES THE [facility] Stop: 02/27/23 08:59 Last Admin: 01/30/23 08:03 Dose: 1,000 mcg Furosemide (Furosemide 40 Mg/4 Ml Vial) 40 mg IV BID17 COUNT INCLUDES THE [facility] Stop: 02/26/23 16:59 Last Admin: 01/30/23 08:10 Dose: 40 mg Levothyroxine Sodium (Levothyroxine Sodium 50 Mcg Tablet) 50 mcg PO DAILYBB COUNT INCLUDES THE [facility] Stop: 02/27/23 06:29 Last Admin: 01/30/23 05:30 Dose: 50 mcg Magnesium Hydroxide (Magnesium Hydroxide Susp 30 Ml Udc) 30 ml PO Q12H PRN PRN Reason: Constipation Stop: 02/26/23 15:34 Midodrine (Midodrine Hcl 2.5 Mg Tab) 2.5 mg PO TIDM COUNT INCLUDES THE [facility] Stop: 02/26/23 16:59 Last Admin: 01/30/23 08:06 Dose: 2.5 mg Ondansetron HCl (Ondansetron Inj 2 Mg/Ml 2 Ml Vial) 4 mg IV Q6H PRN PRN Reason: Nausea Stop: 02/26/23 15:34 Pantoprazole Sodium (Pantoprazole 40 Mg Tab) 40 mg PO BID COUNT INCLUDES THE [facility] Stop: 02/26/23 20:59 Last Admin: 01/30/23 08:09 Dose: 40 mg Polyethylene Glycol (Polyethylene (Miralax) 17 Gm Pack) 17 gm PO DAILY PRN PRN Reason: Constipation Stop: 02/26/23 15:34 Potassium Chloride (Potassium Chloride Crtab 20 Meq Tabcr) 20 meq PO BID COUNT INCLUDES THE [facility] Stop: 02/28/23 09:59 Last Admin: 01/30/23 08:05 Dose: 20 meq Sucralfate (Sucralfate 1 Gm/10 Ml Udc) 1 gm PO ACHS COUNT INCLUDES THE [facility] Stop: 01/31/23 21:01 Last Admin: 01/30/23 08:02 Dose: 1 gm
[2023-01-31] MEDS: LEVOTHYROXINE SODIUM 50 MCG TABLET PO SCH (06:02)
[2023-01-31 06:26] LABS: Calcium 8.8 mg/dl (8.6-10.3); Est GFR (African American) 94.3 ml/min; Est GFR (Non-African American) 81.3 ml/min; Potassium 4.1 mmol/L (3.5-5.1)
--- NOTE | 2023-01-31 07:33 | Cardiology Progress Note ---
Date of Service January 31, 2023 Assessment & Plan (1) Chronic heart failure with preserved ejection fraction (HFpEF): (2) Cardiac amyloidosis: (3) Tachy-walker syndrome: (4) Paroxysmal atrial fibrillation: (5) Status post placement of cardiac pacemaker: (6) Pneumothorax on left: (7) Pleural effusion: Plan IMPRESSION: Medically complex 77 year old female with PMH of cardiac amyloid, PAF, TBS s/p PPM. Presents to [facility] ED due to progressive dyspnea. Found to be in acute on chronic diastolic CHF with a BL pleural effusions (L>R). Left pnx resolved. It appears diuretic therapy was inadvertently discontinued during hospitalization approximately 2 weeks ago. (Patient previously on 80 mg twice daily). PLAN: Acute on chronic HFpEF/pleural effusion: -Volume status improving. Continue diuresis with IV Lasix, 40 mg BID. Plans to repeat CXR to reassess pleural effusion in the am-- pending results consider transitioning back to PO Lasix 80 mg daily. -Appreciate pulmonary input regarding left pleural effusion and potential thoracentesis. For now holding off on thoracentesis-- CXR this am: No change in moderate left and small right pleural effusions with with mild interstitial pulmonary edema. Eliquis 5 mg BID restarted 01/30. . -Monitor renal function and electrolytes. Replace K to a goal of 4.0 and a mag of 2.0. - 2g sodium diet, strict I&O, daily weights. -CHF EDU PAF/TBS s/p PPM: -Device interrogated this admission showing stable thresholds. -Continue amiodarone 200 mg BID -Eliquis 5 mg BID restarted 01/30 by hospitalist service. Chronic hypotension: -Continue midodrine as ordered Case discussed with Dr. Mathews-- will follow. Admission and Anticipated Discharge Date Admission Date: January 27, 2023 Supervising Physician Co-Signing Physician Notes Patient seen and examined at the bedside. Shortness of breath improved. Fluid balance -1.1 L. Abdominal bloating less prominent. Huerta catheter pin place. Denies chest pain or palpitations. Telemetry reveals atrial paced rhythm at 60 bpm. Voices concern regarding chronic anticoagulation with Eliquis. PE: Gen: AAOx3. Heart: Regular rhythm, normal S1-S2. No murmur. Lungs: Diminished breath sounds left lower and midlung dow. No wheeze.Abd: Mild distention without rebound or guarding. Extremities: Trace ankle edema. A/P: Agree with above FRONT DESK TEAM MEMBER history, physical exam, assessment and plan. 77-year-old female admitted with acute decompensated heart failure with large left pleural effusion. Continue Lasix 40 mg IV twice daily for additional 24 hours. Follow fluid balance, GFR, electrolyte and daily weights. Consider transition to oral diuretics and possible discharge in 24 hours. Subjective Medically complex 77-year-old female with a past medical history of AL cardiac amyloid, paroxysmal atrial fibrillation and tachybradycardia syndrome status post permanent pacemaker. Initially presented to [facility] emergency department with progressive shortness of breath. Outpatient x-ray demonstrating an enlarging left-sided pleural effusion. It appears that diuretic therapy was inadvertently discontinued approximately 2 weeks ago. Normally maintains on furosemide 80 mg twice daily. Patient presenting with acute on chronic diastolic CHF with a 10 pound weight gain and abdominal bloating/early satiety. 01/27/2023: Diuretic therapy restarted. Patient was given a one-time dose of 40 mg of IV Lasix in the emergency department and transition to IV Lasix 40 mg twice daily. Pulmonary medicine consulted due to left-sided pleural effusion, ? Thoracentesis. 01/28/2023: Volume status dramatically improved with IV Lasix. Patient was continued on Lasix 40 mg twice daily Thoracentesis deferred by pulmonary due to improving respiratory status. CXR in the am to reassess L pleural effusion. Pacemaker interrogated stable atrial threshold 01/29/2023: Diuresis continued with Lasix IV 40 mg twice daily. No indication for thoracentesis at this time per pulmonary due to improving re spiratory status. Chest x-ray completed showed a moderate left and small right pleural effusion with mild interstitial pulmonary edema, unchanged from previous. 01/30/2023: Ongoing diuresis with IV Lasix 40 mg twice daily Amiodarone continued for rhythm management with paroxysmal atrial fib. Eliquis 5 mg BID restarted on 01/30. 01/31/2023: Upon entrance into the room patient resting comfortably in bed. No acute concerns over night. Feeling subjectively improved. Tele: Paced with PVCs 60s I&O: -6.9 L Weight: 66.4 kg >> 62.9 kg >> 61.2 kg >>60.4 kg >>60.5 kg Labs: BMP stable. Electrolytes WNL. Review of Systems Review of Systems: All systems reviewed & are unremarkable except as noted in HPI & below Physical Exam Constitutional: WD/WN, vitals as above + ill appearing; no acute distress Neck: normal visual inspection and trachea midline Respiratory: normal respiratory effort, + cough and + tachypneic; no labored breathing Auscultation: + diminished lung sounds, + crackles and + wheezes; no rhonchi Cardiovascular: Rate/Rhythm: regular rate and regular rhythm Heart Sounds: + murmur (+systolic murmur ) Vessels: no JVD Extremities: no edema Chest (Breasts): Chest: + pacemaker Gastrointestinal (Abdomen): Inspection/Auscultation: + abdomen distended Percussion/Palpation: abdomen soft and + abdomen firm; abdomen nontender Skin: no rashes, warm and dry Psychiatric: A+Ox3, euthymic affect Results & Data Vital Signs (Past 12 Hours) Vital Signs Temp Pulse Pulse Resp BP Pulse Ox O2 Del Method 01/31/23 07:15 60 01/31/23 03:11 36.4 C L 65 17 103/63 91 Room Air 01/30/23 23:08 37.1 C 61 18 98/60 L 93 Room Air 01/30/23 21:00 Room Air 01/30/23 19:37 36.4 C L 64 21 106/60 92 Room Air Laboratory Results Comprehensive Metabolic Panel 01/31/23 Range/Units 05:47 Sodium 137 (136-145) mmol/L Potassium 4.1 (3.5-5.1) mmol/L Chloride 102 (98-107) mmol/L Carbon Dioxide 30 (21-32) mmol/L BUN 18 (6-23) mg/dl Creatinine 0.72 (0.6-1.2) mg/dl Glucose 92 (70-99(Fasting)) mg/dl Calcium 8.8 (8.6-10.3) mg/dl Intake and Output 01/30/23 01/31/23 01/31/23 22:59 06:59 14:59 Output Total 475 / 1725 700 / 1725 Balance -475 / -1725 -700 / -1725 Output: Urine 475 / 475 Urine Amount (Catheter) 700 / 1250 Huerta/Indwelling 700 / 1250 Other: Weight 60.5 kg Weight Measurement Method Built in [facility]
[2023-01-31] MEDS: ASPIRIN 81 MG ECTAB PO SCH (07:58)
[2023-01-31] MEDS: PANTOprazole 40 MG TAB PO SCH ×2 (07:58→21:38)
[2023-01-31] MEDS: POTASSIUM CHLORIDE CRTAB 20 MEQ TABCR PO SCH ×2 (07:59→21:38)
[2023-01-31] MEDS: MIDODRINE HCL 2.5 MG TAB PO SCH ×3 (07:59→16:35)
[2023-01-31] MEDS: APIXABAN 5 MG TABLET PO SCH ×2 (07:59→21:38)
[2023-01-31] MEDS: AMOXICILLIN/CLAVULANATE 875 MG TAB PO SCH ×2 (07:59→16:35)
[2023-01-31] MEDS: AMIODARONE 200 MG TAB PO SCH ×2 (07:59→21:37)
[2023-01-31] MEDS: CYANOCOBALAMIN (B-12) 500 MCG TABLET PO SCH (08:00)
[2023-01-31] MEDS: SUCRALFATE 1 GM/10 ML UDC PO SCH ×4 (08:00→21:39)
[2023-01-31] MEDS: FUROSEMIDE 40 MG/4 ML VIAL IV SCH ×2 (08:03→16:36)
--- NOTE | 2023-01-31 08:23 | Hospitalist Progress Note ---
Date of Service January 31, 2023 Assessment & Plan (1) Acute on chronic heart failure with preserved ejection fraction (HFpEF): (2) Pleural effusion: (3) Cardiac amyloidosis: (4) Paroxysmal atrial tachycardia: Plan Ms. Hogue is a 77 year old woman with complex medical history of cardiac amyloidosis, paroxysmal A-fib, tachybradycardia syndrome status post pacemaker placement 01/13/2023, and other comorbidities was admitted on 01/27 for acute on chronic heart failure exacerbation. Patient is responding well to IV diuresis. Pulmonary was consulted for pleural effusions, who at this time feels thoracentesis will be unnecessary as patient improving with diuresis and with minimal o2 requirements. Cardiology intends for AC to start; however, given concern for effusions, wish to wait until CXR completed on 01/29 to ensure no anticipated thora. Patient will be able to start eliquis 5mg BID--after calling pharmacy, cost after insurance will be 19.50$. #Acute Heart Failure with preserved EF 2/2 Cardiac Amyloidosis Infiltrative cardiomyopathy per echocardiogram at [facility] 02/2019 showing normal LV systolic function and severe concentric LVH and elevated diastolic filling pressure Bone biopsy revealed vascular infiltration consistent with amyloid Home furosemide discontinued for unclear reasons; previous dosing 80mg BID PO Received Lasix 40 mg IV in ED; continue BID per cardiology recommendations -ECHO from Oct 2022 reveals preserved EF 60-65% with mild MR and severe TR with grade 3 DD. -Strict IOs, Low sodium diet, monitor on telemetry, daily weights -urinary incontinence noted and there were possible concerns about missed voids, bladder scan revealed no urinary retention, andrade placed for more accurate I/Os and for comfort on multidaily dose IV lasix, now with an oxygen requirement and having to get up weak and out of breath to the bedside commode. -SOB seemed to be improved even prior to evening lasix dose. Likely related to ongoing pleural effusions per CXR this am. -Cardiology on consult: -Continue IV lasix BID with CXR repeat in am to monitor response to diuresis. -will likely transition to PO lasix and send home with close followup CXR in the clinic. Abdominal pain: no elevation in LFTs to this point. CT a/p reveals no postoperative issues after recent biliary stent. Ascites is present likely cardiac in nature. At this point given no evidence of SBP or ongoing tenderness, feel paracentesis for diagnosis would be redundant and put her at risk for complications. Continue PPI p.o. twice daily and added Carafate, will continue. UTI: reports of recent dysuria, UCx growing Klebsiella, started on Augmentin. Question Augmentin as a cause of her abdominal symptoms reported yesterday-she seems to be tolerating this well-continue #Pleural effusion: Acute uncontrolled CXR: Left lower lung airspace opacity. which may represent atelectasis, pneumonia, and/or aspiration. Cardiomegaly and mild pulmonary edema. Moderate l eft and small right pleural effusions. -Pulmonary consult was placed on admission to evaluate for possible thoracentesis, however, no plans at this time as she was improved and not requiring oxygen. Likely 2/2 acute heart failure and will improve with diuresis, appreciate #Tachybrady syndrome s/p pacemaker 01/13 #Paroxysmal atrial tachycardia: Status post PPM dual-chamber placed on 01/13 at [facility] Complicated with PNX post procedure; no chest tube Interrogation of pacemaker while here Continue Amiodarone 200mg BID Continue ASA restarted apixaban #Gastric Ulcer #Hiatal Hernia #Choledocholithiasis s/p biliary sphincterotomy with stone excretion -restarting apixaban -recently admitted with LFT elevation and choledocholithiasis s/p ERCP with stone removal and stent placement. -not candidate for cholecystectomy per general surgery so will need EUS GB wtih Axios as OP -plan for outpatient Axios stent at [facility] to allow gallbladder drainage -Continue PPI BID for 3 months s/p EGD on 01/10 (EOT 04/10/2023) #Hypothyroid -chronic, stable. Continue home Synthroid 50mcg #Chronic Hypotension -Continue Midodrine 2.5 mg TID Disposition: PCP: Dr. Swenson CODE STATUS: Full code VTE prophylaxis: apixaban was at bedside and updated on the plan. I spent a total of 60 minutes coordinating, documenting, and providing care for this patient excluding time spent in the performance of separately billed services DO Lindsay Mcfadden Hospitalist Admission and Anticipated Discharge Date Admission Date: January 27, 2023 Subjective Medically complex 77-year-old female with a past medical history of AL cardiac amyloid, paroxysmal atrial fibrillation and tachybradycardia syndrome status post permanent pacemaker. Initially presented to [facility] emergency department with progressive shortness of breath. Outpatient x-ray demonstrating an enlarging left-sided pleural effusion. It appears that diuretic therapy was inadvertently discontinued approximately 2 weeks ago. Normally maintains on furosemide 80 mg twice daily. Patient presenting with acute on chronic diastolic CHF with a 10 pound weight gain and abdominal bloating/early satiety. 1.2 L net out overnight denies abdominal pain reports carafate is helping her stomach She is tolerating PO still breathing well on room air and denies SOB with exertion. Discussed care plan with cardiology provider and will cont with IV lasix with possible transition tomorrow after am CXR. Physical Exam Physical Exam: CONSTITUTIONAL: WNWD, vitals as above, NAD EYES: normal conjunctivae, no scleral icterus ENT: external ear and nose normal, MMM NECK: trachea midline RESPIRATORY: clear to auscultation bilaterally with decreased breath sounds at the bases bilaterally, no crackles, rales or wheezes, normal respiratory effort CARDIOVASCULAR: regular rate and rhythm, S1 and 2 heard without murmurs, gallops or rubs, no JVD, no peripheral edema CHEST: inspection of chest was normal GASTROINTESTINAL: soft, nontender, ND, no guarding MUSCULOSKELETAL: moves extremities symmetrically but has generalized weakness, head is normocephalic and atraumatic SKIN: warm and dry NEUROLOGIC: CN 2-12 grossly intact, no sensory deficit, normal cognition, normal speech, no tremor PSYCHIATRIC: alert cooperative and oriented to person, place and time. Euthymic mood, makes good eye contact, language grossly intact, recent and remote memory grossly intact. Results & Data Results & Data Vital Signs (Past 12 Hours) Vital Signs Temp Pulse Pulse Resp BP Pulse Ox O2 Del Method 01/31/23 07:15 60 01/31/23 03:11 36.4 C L 65 17 103/63 91 Room Air 01/30/23 23:08 37.1 C 61 18 98/60 L 93 Room Air 01/30/23 21:00 Room Air Laboratory Results [facility] 01/31/23 05:47 Sodium 137 Potassium 4.1 Chloride 102 Carbon Dioxide 30 BUN 18 Creatinine 0.72 Glucose 92 Calcium 8.8 Medications Administered Current Inpatient Medications Acetaminophen (Acetaminophen 325 Mg Tab) 650 mg PO Q4H PRN PRN Reason: Pain or Fever Stop: 02/26/23 15:34 Al Hydrox/Mg Hydrox/Simethicone (Aluminum/Magnesium Susp 30 Ml Udc) 15 ml PO Q4H PRN PRN Reason: Dyspepsia Stop: 02/26/23 15:34 Amiodarone HCl (Amiodarone 200 Mg Tab) 200 mg PO BID [facility] Stop: 02/26/23 20:59 Last Admin: 01/31/23 07:59 Dose: 200 mg Amoxicillin/Clavulanate Potassium (Amoxicillin/Clavulanate 875 Mg Tab) 1 tab PO BIDM [facility]; Protocol Stop: 02/03/23 10:14 Last Admin: 01/31/23 07:59 Dose: 1 tab Apixaban (Apixaban 5 Mg Tablet) 5 mg PO BID [facility] Stop: 02/27/23 20:59 Last Admin: 01/31/23 07:59 Dose: 5 mg Aspirin (Aspirin 81 Mg Ectab) 81 mg PO QAM [facility] Stop: 02/27/23 08:59 Last Admin: 01/31/23 07:58 Dose: 81 mg Cyanocobalamin (Cyanocobalamin (B-12) 500 Mcg Tablet) 1,000 mcg PO QAM [facility] Stop: 02/27/23 08:59 Last Admin: 01/31/23 08:00 Dose: 1,000 mcg Furosemide (Furosemide 40 Mg/4 Ml Vial) 40 mg IV BID17 [facility] Stop: 02/26/23 16:59 Last Admin: 01/31/23 08:03 Dose: 40 mg Levothyroxine Sodium (Levothyroxine Sodium 50 Mcg Tablet) 50 mcg PO DAILYBB [facility] Stop: 02/27/23 06:29 Last Admin: 01/31/23 06:02 Dose: 50 mcg Magnesium Hydroxide (Magnesium Hydroxide Susp 30 Ml Udc) 30 ml PO Q12H PRN PRN Reason: Constipation Stop: 02/26/23 15:34 Midodrine (Midodrine Hcl 2.5 Mg Tab) 2.5 mg PO TIDM [facility] Stop: 02/26/23 16:59 Last Admin: 01/31/23 07:59 Dose: 2.5 mg Ondansetron HCl (Ondansetron Inj 2 Mg/Ml 2 Ml Vial) 4 mg IV Q6H PRN PRN Reason: Nausea Stop: 02/26/23 15:34 Pantoprazole Sodium (Pantoprazole 40 Mg Tab) 40 mg PO BID [facility] Stop: 02/26/23 20:59 Last Admin: 01/31/23 07:58 Dose: 40 mg Polyethylene Glycol (Polyethylene (Miralax) 17 Gm Pack) 17 gm PO DAILY PRN PRN Reason: Constipation Stop: 02/26/23 15:34 Potassium Chloride (Potassium Chloride Crtab 20 Meq Tabcr) 20 meq PO BID [facility] Stop: 02/28/23 09:59 Last Admin: 01/31/23 07:59 Dose: 20 meq Sucralfate (Sucralfate 1 Gm/10 Ml Udc) 1 gm PO ACHS [facility] Stop: 01/31/23 21:01 Last Admin: 01/31/23 08:00 Dose: 1 gm
[2023-02-01 05:02] LABS: BUN Creatinine Ratio 26.5 (10-20); Calcium 8.8 mg/dl (8.6-10.3); Creatinine Clr Calc Pharmacy 58.2 ml/min; Est GFR (African American) 98.5 ml/min
[2023-02-01] MEDS: LEVOTHYROXINE SODIUM 50 MCG TABLET PO SCH (05:39)
--- NOTE | 2023-02-01 06:53 | Cardiology Progress Note ---
Date of Service February 01, 2023 Assessment & Plan (1) Chronic heart failure with preserved ejection fraction (HFpEF): (2) Cardiac amyloidosis: (3) Tachy-walker syndrome: (4) Paroxysmal atrial fibrillation: (5) Status post placement of cardiac pacemaker: (6) Pneumothorax on left: (7) Pleural effusion: Plan IMPRESSION: Medically complex 77 year old female with PMH of cardiac amyloid, PAF, TBS s/p PPM. Presents to [facility] ED due to progressive dyspnea. Found to be in acute on chronic diastolic CHF with a BL pleural effusions (L>R). Left pnx resolved. It appears diuretic therapy was inadvertently discontinued during hospitalization approximately 2 weeks ago. (Patient previously on 80 mg twice daily). PLAN: Acute on chronic HFpEF/pleural effusion: -Patient volume status significantly improved since date of admission however left pleural effusion persists. No plans for thoracentesis per pulmonary's last note. -We will plan on continuing 40 mg of IV Lasix twice per day while inpatient. Should patient be discharged will resume home dose lasix 80 mg twice daily-- Consider reconsulting pulmonary for reassessment of pleural effusion. Care coordinated with Dr. Harrison. -Monitor renal function and electrolytes. Replace K to a goal of 4.0 and a mag of 2.0. -2g sodium diet, strict I&O, daily weights. -CHF EDU PAF/TBS s/p PPM: -Device interrogated this admission showing stable thresholds. -Continue amiodarone 200 mg BID -Eliquis 5 mg BID restarted 01/30 by hospitalist service. Chronic hypotension: -Continue midodrine as ordered Case discussed with Dr. Hernandez-- will follow. Admission and Anticipated Discharge Date Admission Date: January 27, 2023 Supervising Physician Co-Signing Physician Notes Patient seen and personally examined. Looks well sitting out of bed in chair. Still with dullness at the left base of the chest but has responded to diuretics. Plan as outlined above Subjective Medically complex 77-year-old female with a past medical history of AL cardiac amyloid, paroxysmal atrial fibrillation and tachybradycardia syndrome status post permanent pacemaker. Initially presented to [facility] emergency department with progressive shortness of breath. Outpatient x-ray demonstrating an enlarging left-sided pleural effusion. It appears that diuretic therapy was inadvertently discontinued approximately 2 weeks ago. Normally maintains on furosemide 80 mg twice daily. Patient presenting with acute on chronic diastolic CHF with a 10 pound weight gain and abdominal bloating/early satiety. 01/27/2023: Diuretic therapy restarted. Patient was given a one-time dose of 40 mg of IV Lasix in the emergency department and transition to IV Lasix 40 mg twice daily. Pulmonary medicine consulted due to left-sided pleural effusion, ? Thoracentesis. 01/28/2023: Volume status dramatically improved with IV Lasix. Patient was continued on Lasix 40 mg twice daily Thoracentesis deferred by pulmonary due to improving respiratory status. CXR in the am to reassess L pleural effusion. Pacemaker interrogated stable atrial threshold 01/29/2023: Diuresis continued with Lasix IV 40 mg twice daily. No indication for thoracentesis at this time per pulmonary due to improving respiratory status. Chest x-ray completed showed a moderate left and small right pleural effusion with mild interstitial pulmonary edema, unchanged from previous. 01/30/2023: Ongoing diuresis with IV Lasix 40 mg twice daily Amiodarone continued for rhythm management with paroxysmal atrial fib. Eliquis 5 mg BID restarted on 01/30. 01/31/2023: Ongoing diuresis with IV Lasix 40 mg twice daily. Cardiac medications continued. 02/01/2023: Upon entrance into the room patient asleep in bed. Woke easily. Head of bed flat. Feels subjectively improved. Denies chest pain, shortness of breath resolved. No orthopnea or PND. No lower extremity edema. Denies abdominal bloating. Good appetite. Chest x-ray this morning: Personal interpretation showed a moderate to large left pleural effusion, unchanged from prior imaging. Tele: Paced with PVCs 60s I&O: -8 L Weight: 66.4 kg >> 62.9 kg >> 61.2 kg >>60.4 kg >>60.5 kg >> 59.7 kg Labs: BMP stable. Electrolytes WNL. Physical Exam Constitutional: WD/WN, vitals as above + ill appearing; no acute distress Neck: normal visual inspection and trachea midline Respiratory: normal respiratory effort; no labored breathing, no cough and not tachypneic Auscultation: + diminished lung sounds and + crackles (L>R); no rhonchi and no wheezes Cardiovascular: Rate/Rhythm: regular rate and regular rhythm Heart Sounds: + murmur (+systolic murmur ) Vessels: no JVD Extremities: no edema Chest (Breasts): Chest: + pacemaker Gastrointestinal (Abdomen): Inspection/Auscultation: + abdomen distended Percussion/Palpation: abdomen soft and + abdomen firm; abdomen nontender Skin: no rashes, warm and dry Psychiatric: A+Ox3, euthymic affect Results & Data Vital Signs (Past 12 Hours) Vital Signs Temp Pulse Pulse Resp BP Pulse Ox O2 Del Method 02/01/23 03:48 36.4 C L 60 16 94/58 L 94 Room Air 01/31/23 22:52 36.5 C 105 H 20 100/61 97 Nasal Cannula 01/31/23 21:54 61 01/31/23 20:33 Room Air, Nasal Cannula 01/31/23 19:53 36.4 C L 59 L 20 105/67 96 Nasal Cannula O2 Flow Rate 02/01/23 03:48 01/31/23 22:52 2 01/31/23 21:54 01/31/23 20:33 2 01/31/23 19:53 2
[2023-02-01] MEDS: SUCRALFATE 1 GM/10 ML UDC PO SCH ×2 (08:29→12:33)
[2023-02-01] MEDS: AMOXICILLIN/CLAVULANATE 875 MG TAB PO SCH (08:30)
[2023-02-01] MEDS: APIXABAN 5 MG TABLET PO SCH (08:30)
[2023-02-01] MEDS: MIDODRINE HCL 2.5 MG TAB PO SCH ×2 (08:31→12:34)
[2023-02-01] MEDS: PANTOprazole 40 MG TAB PO SCH (08:32)
[2023-02-01] MEDS: CYANOCOBALAMIN (B-12) 500 MCG TABLET PO SCH (08:32)
[2023-02-01] MEDS: ASPIRIN 81 MG ECTAB PO SCH (08:32)
[2023-02-01] MEDS: AMIODARONE 200 MG TAB PO SCH (08:33)
[2023-02-01] MEDS: POTASSIUM CHLORIDE CRTAB 20 MEQ TABCR PO SCH (08:33)
[2023-02-01] MEDS: FUROSEMIDE 40 MG/4 ML VIAL IV SCH (09:44)
--- NOTE | 2023-02-01 10:44 | Discharge Summary ---
Discharge Summary Date of Service February 01, 2023 Notes For Next Care Provider Please repeat BMP and CXR in 1-2 weeks. Medication Changes From Visit restarted Lasix 80mg PO BID with potassium supplementation restarted apixaban 5mg PO BID Admission HPI Per Admitting Provider Ms. Hogue is a 77 year old female that presents to the ED with short ness of breath that has been worsening over the past few days; starting on Friday. Yesterday and this morning and last night; she could not catch her breath. Her Home SpO2 was 91%. She took a shower this morning and it was 88%. Decreased appetite since discharge from this morning. Abdominal xray negative as an outpatient. She is overall medically complex with a past medical history of cardiac amyloidosis, paroxysmal A-fib, tachybradycardia syndrome status post pacemaker placement 01/13/2023. Patient appears to be acute on chronic diastolic CHF with persistent bilateral pleural effusions which is greater on the left compared to right. Patient's Lasix was not continued upon discharge. Lasix 40 mg IV given in ED and will continue twice daily per cardiology recommendations. ED discussed with pulmonary service who plans to evaluate for possible thoracentesis tomorrow 01/28/2023. Historically per review of outpatient records patient unable to tolerate beta-deneen and has been placed o n amiodarone for management of her paroxysmal A-fib. For now suspect that patient is acute on chronic diastolic CHF with bilateral pleural effusions; continue diuresis with IV Lasix per recommendation of cardiology and await pulmonary consultation; obtain repeat echo. Takes amiodarone 200 mg BID; does not tolerate beta-blockers due to hypotension. Patient denies headache, dizziness, visual or auditory disturbance, chest pain, palpitations, abdominal pain or tenderness, flank pain, recent falls or trauma. Pt lying in her hospital bed in no apparent distress. Able to hold meaningful conversation without becoming hypoxic speaking in complete sentences. Patient will be admitted for further evaluation and management. Please see A/P for details. Admission Exam Per Admitting Provider General: Elderly woman No acute distress Eyes: PERRL, conjunctivae normal, not pale, anicteric sclerae, EOM intact bilaterally ENMT: External ear and nose normal, oropharynx normal Respiratory: Normal respiratory effort, no respiratory distress, lungs clear to auscultation, no crackles and no wheezes Cardiovascular: RRR S1 S2 Gastrointestinal (Abdomen): Abdomen is mildly distended, soft, non-tender to palpation, no guarding, no palpable hepatosplenomegaly, normal bowel sounds Musculoskeletal: No pedal edema Genitourinary:Puer wick in place Neurologic: Alert and oriented x 3, No focal weakness, sensation grossly intact Psychiatric: Euthymic affect Principal Dx & Hospital Course #1 = Principal Diagnosis (1) Acute on chronic heart failure with preserved ejection fraction (HFpEF): (2) Pleural effusion: (3) Cardiac amyloidosis: (4) Paroxysmal atrial tachycardia: Plan Mrs. Hogue is a 77-year-old female with cardiac amyloidosis that presented with acute on chronic heart failure with preserved ejection fraction. Pleural effusions were noted on her chest x-ray. She was recently hospitalized and discharged off Lasix which was not restarted. She was placed on intravenous Lasix. Pulmonary was consulted for consideration of thoracentesis however given her lack of hypoxia or significant dyspnea, this was deferred. She was continued on intravenous diuretics with slight improvement in her pleural effusion at time of discharge. She was seen by cardiology during her stay who agreed with ongoing diuretic therapy. They noted her device has been interrogated this admission revealed stable thresholds. They continued her on amiodarone twice daily. She was recently hospitalized and underwent a biliary stent procedure for choledocholithiasis. She is planned to undergo axial stenting at an outside hospital next month. She did not have significant GI bleeding but did have a nonbleeding gastric ulcer. Carafate improved her abdominal discomfort this admission. A CT abdomen pelvis revealed the stent was in place and there were no other structural changes that were concerning to explain her nonspecific abdominal pain which improved with Carafate. Her Eliquis was restarted on 01/30. She had no bleeding issues or significant drop in hemoglobin. At time of discharge she was hemodynamically stable and afebrile and tolerating p.o. She was oxygenating well on room air and ambulating at her baseline. She was discharged in stable condition with close primary care follow-up recommended. Discharge Exam CONSTITUTIONAL: WNWD, vitals as above, NAD EYES: normal conjunctivae, no scleral icterus ENT: external ear and nose normal, MMM NECK: trachea midline RESPIRATORY: clear to auscultation bilaterally with decreased breath sounds at the bases bilaterally, no crackles, rales or wheezes, normal respiratory effort CARDIOVASCULAR: regular rate and rhythm, S1 and 2 heard without murmurs, gallops or rubs, no JVD, no peripheral edema CHEST: inspection of chest was normal GASTROINTESTINAL: soft, nontender, ND, no guarding MUSCULOSKELETAL: moves extremities symmetrically but has generalized weakness, head is normocephalic and atraumatic SKIN: warm and dry NEUROLOGIC: CN 2-12 grossly intact, no sensory deficit, normal cognition, normal speech, no tremor PSYCHIATRIC: alert cooperative and oriented to person, place and time. Euthymic mood, makes good eye contact, language grossly intact, recent and remote memory grossly intact. Updated Medication List Medication Instructions Recorded Confirmed Type cyanocobalamin (vitamin B-12) 1,000 mcg PO QAM 05/14/21 02/02/23 History 1,000 mcg tablet (Vitamin B-12) sucralfate 100 mg/mL oral 10 ml PO QID PRN Gi Upset 11/22/22 02/02/23 History suspension aspirin 81 mg tablet,delayed 81 mg PO QAM 01/07/23 02/02/23 History release amiodarone 200 mg tablet 200 mg PO BID #60 tabs 01/15/23 02/02/23 Rx pantoprazole 40 mg tablet,delayed 40 mg PO BID #60 tabs 01/15/23 02/02/23 Rx release levothyroxine 50 mcg tablet 50 mcg PO QAM 01/27/23 02/02/23 History midodrine 2.5 mg tablet 2.5 mg PO TIDM 01/27/23 02/02/23 History apixaban 5 mg tablet (Eliquis) 5 mg PO BID #60 tabs 01/28/23 02/02/23 Rx amoxicillin 875 mg-potassium 1 tab PO BIDM #10 tabs 02/01/23 02/02/23 Rx clavulanate 125 mg tablet furosemide 40 mg tablet 80 mg (2 x 40 mg) PO BID #60 tabs 02/01/23 02/02/23 Rx potassium chloride 20 mEq 20 meq PO BID #60 tabs 02/01/23 02/02/23 Rx tablet,extended release(part/cryst) Hospital Stay Data Consultations 01/27/23 15:23 ED Decision to Admit Stat 01/27/23 15:35 Consult Pulmonology Routine 01/27/23 15:55 Consult Cardiology Routine Diagnostic Imagining Performed 01/27/23 15:23 CT chest diagnostic w con Stat 01/29/23 17:16 CT abd pelvis IV con only Urgent Pending Results Patient Have Any Pending Studies at Discharge: No Discharge Instructions Given to Patient (Per Discharging Provider) Please take all medications as instructed on discharge list below. It is recommended to follow-up with your primary care physician in one week. At this appointment, a repeat chest xray should be ordered to evaluate your persistent pleural effusions. Please continue taking Lasix 80mg twice daily until that time, and continue to track your weight daily (see instructions below). This may be a reason to postpone your upcoming gallbladder procedure next month if not resolved, however, would defer that decision to your digital director and primary care physician when the time comes to make that decision. Please followup with cardiology as instructed. Activity is recommended as this is the best way to mobilize the extra fluid in your lungs and abdomen. It was a pleasure taking care of you! Please call if you have any questions or problems. You can reach a [facility] hospitalist on duty at [facility] 24 hours a day by calling [phone]. Take care of yourself. Lucia Harrison, DO [facility] Hospitalist Total Time Total Time Spent Total Time Spent (In Minutes): 60
--- NOTE | 2023-02-01 15:57 | XRay Report ---
XR chest 1V portable CLINICAL HISTORY: monitor effusion after diuresis TECHNIQUE: Single frontal radiograph of the chest was obtained. Comparison: Comparison is made to chest radiograph 01/29/2023 FINDINGS: Lines and tubes are stable. Cardiomegaly is noted. Lower lung airspace opacity is again seen. Vascula r prominence is seen. Moderate left and small right pleural effusions are slightly decreased in size from prior exam. IMPRESSION: 1. Slight decrease in size of the moderate left and small right pleural effusions. Bilateral airspac e opacities likely reflect atelectasis with or without superimposed aspiration/pneumonia. 2. Cardiomegaly and mild pulmonary edema. ACT 112: Negative or not required by law. Electronically signed by: Jose Ramon Murcia M.D. 02/01/2023 3:56 PM
== END 2023-02-01 14:51 | disposition home or self-care (01) | DRG 545 ==
LOC: ED 12:41 → 4W 15:35 → SUATTDRO 15:35 → 4W 17:10

== ENCOUNTER 2023-02-02 14:56 | Inpatient (IN) ==
[2023-02-02] MEDS ORDERED: SODIUM CHLORIDE 0.9% 250 ML IV PRN ×2 (15:37→19:33)
[2023-02-02] MEDS ORDERED: PANTOPRAZOLE BOLUS/DRIP IV STA (15:37)
[2023-02-02] MEDS ORDERED: PANTOprazole 80 MG in DEXTROSE 5% 100 ML IV ONE (15:37)
[2023-02-02] MEDS ORDERED: PROTHROMBIN COMP CONC- KCENTRA 2,000 UNITS in SYRINGE 0 ML IV STA ×2 (15:39→20:48)
[2023-02-02] MEDS ORDERED: STAT IV/IM STA ×2 (15:39→20:48)
[2023-02-02] MEDS ORDERED: TRANEXAMIC ACID / 0.7% NACL 1,000 MG/100 ML BAG IV STA (15:40)
[2023-02-02] MEDS ORDERED: SODIUM CHLORIDE 0.9% 1,000 ML IV ONE (15:40)
--- NOTE | 2023-02-02 15:43 | Emergency Department Note ---
Impression & Plan Acute GI bleeding, Acute hypotension ED Provider Note NAME: ARIA MAGANA AGE: 77 SEX: F : 1945 ARRIVES VIA: Ambulance INFORMANT: Patient ED PROVIDER(S): Sonny Healy DO CHIEF COMPLAINT: GI bleed HPI: Patient is a 77-year-old female who is overall medically complex with a past medical history of cardiac amyloidosis, paroxysmal A-fib, tachybradycardia syndrome status post pacemaker placement 01/13/2023. Patient appears to be acute on chronic diastolic CHF with persistent bilateral pleural effusions which is greater on the left compared to right. She was just discharged this morning and returns as she started vomiting blood and notes that she is having bright red blood per rectum which started within the past half hour. She admits to feeling weak and rundown. She denies any belly pain. She notes that she does have a history of previous gastric ulcers with clips. ADDITIONAL HISTORY OBTAINED: Per HPI Chronic Medical/Social Conditions Affecting Care: Per HPI PAST MEDICAL HISTORY:See Below PAST SURGICAL HISTORY:See Below FAMILY HISTORY:See Below SOCIAL HISTORY:See Below HOME MEDICATIONS:See Below ALLERGIES:See Below VITALS:See Below PHYSICAL EXAMINATION: GENERAL: Sitting up in bed, alert, ill-appearing, disheveled, covered in blood from the legs down EYE EXAM: normal conjunctiva. OROPHARYNX: mucous membranes are moist NECK: supple, no nuchal rigidity, no adenopathy, non-tender LUNGS: Clear to auscultation. Normal chest wall mechanics HEART: no murmurs, S1 normal and S2 normal ABDOMEN: abdomen soft, non-tender, normo-active bowel sounds, no masses, no rebound or guarding. : Extensive amount of dark blood per rectum covering the bed and bedpan UPPER EXTREMITIES: upper extremities are grossly normal. LOWER EXTREMITIES: No pitting edema. NEURO EXAM: Normal sensorium, cranial nerves II-XII grossly intact, normal speech, no gross weakness of arms, no gross weakness of legs. MEDICAL DECISION MAKING: Patient is a 77-year-old female who presents the ER for vomiting up blood. This was occurring just prior to arrival. She just discharged earlier today and placed on Eliquis. Upon arrival she had a bowel movement that soaked through the entire bed and bedpan which was bright red blood throughout. She dropped her pressure into the 80s. 2 18-gauge's were obtained and patient was moved into B1. GI was consulted as well as anesthesia who broke presented at bedside with previous history of gastric ulcer and clipping. They are agreeable to taking the patient to the OR. Did contact the oxygraph operator and spoke with Dr. Boyd who is agreeable to admitting to the ICU after likely OR. I did place the patient on a Protonix drip and bolus. She was given Kcentra with the recent ingestion of a NOAC and active/aggressive GI bleeding with vomiting blood and significant on blood per rectum. She was also given TXA. Unable to obtain CT of the abdomen pelvis at this time as patient was unstable. She was given 2 units while in the ER and FFP and was taken emergently to the OR for possible clipping. Patient is a full code. External Records Reviewed: Recent discharge was reviewed from today which showed the patient is taking Eliquis Consults/Care Managements Discussions: Per [facility] Triage Nursing notes reviewed. Limited review of prior medical records performed Vital Signs: reviewed and remarkable for hypotension Differential diagnosis: Differential diagnosis includes etiologies such as diverticulitis, diverticulosis, AVM, coagulopathy, colitis, inflammatory bowel disease, malignancy, Liss-Judge tear, esophagitis, peptic ulcer disease, variceal bleed, gastritis, epistaxis, fissure, hemorrhoids, as well as others were entertained. ER treatment provided: See below Diagnostics interpreted by me include EKG and cardiac monitoring as listed below: -Cardiac Monitoring: An order was placed for continuous cardiac monitoring. The monitor shows a rate of 70 with sinus rhythm. -ECG: Junctional rhythm rate of 64 Right axis No PVCs Wide QRS, right bundle branch block -Laboratory studies:Interpreted by me as stated above in MDM and shown below. Imaging studies: Xrays: As interpreted by me:none CTs show: none Procedures:none Critical Care: I have personally spent 80 minutes of critical care time in the direct management of this patient. This includes bedside care, interpretation of diagnostic studies, and testing, discussion with consultants, patient, and family members, and other required patient management activities. This 80 minutes is in excess of all separately billable procedures. Past Med/Surg History Medical History GI bleed Dyspnea on exertion Pleural effusion due to CHF (congestive heart failure) Acute on chronic heart failure with preserved ejection fraction (HFpEF) Acute combined systolic and diastolic CHF, NYHA class 3 Acute on chronic diastolic (congestive) heart failure Nausea & vomiting Elevated troponin Chronic diastolic heart failure Cardiac amyloidosis Multiple myeloma Surgical History History of colonoscopy History of tubal ligation Family History Father , 50s Stroke Mother , 90 Coronary heart disease Social History Smoking Status: Former smoker Second Hand Exposure: No; Do You Dip or Chew Tobacco: No; Tobacco Cessation Education Requested by Patient: No Hx Alcohol Use: No Hx Substance Use: No Preferred Language: Kiswahili 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: Effective Telephone Information Supervisor Required: No Beliefs That Will Affect Care: None marital status: Current Living Situation: Spouse Current Living Situation Comment: with Feels Safe at Home: Yes Safety Concerns: Feels Safe At This Time Assistive Devices: Walker Allergies Allergies Allergy/AdvReac Type Severity Reaction Status Date / Time iron Allergy Rash Verified 01/27/23 15:23 Home Meds Home Medications Medication Instructions Recorded Confirmed cyanocobalamin (vitamin B-12) 1,000 mcg PO QAM 05/14/21 02/02/23 1,000 mcg tablet (Vitamin B-12) sucralfate 100 mg/mL oral 10 ml PO QID PRN Gi Upset 11/22/22 02/02/23 suspension aspirin 81 mg tablet,delayed 81 mg PO QAM 01/07/23 02/02/23 release levothyroxine 50 mcg tablet 50 mcg PO QAM 01/27/23 02/02/23 midodrine 2.5 mg tablet 2.5 mg PO TIDM 01/27/23 02/02/23 Previous Rx's Medication Instructions Recorded amiodarone 200 mg tablet 200 mg PO BID #60 tabs 01/15/23 pantoprazole 40 mg tablet,delayed 40 mg PO BID #60 tabs 01/15/23 release apixaban 5 mg tablet (Eliquis) 5 mg PO BID #60 tabs 01/28/23 amoxicillin 875 mg-potassium 1 tab PO BIDM #10 tabs 02/01/23 clavulanate 125 mg tablet furosemide 40 mg tablet 80 mg (2 x 40 mg) PO BID #60 tabs 02/01/23 potassium chloride 20 mEq 20 meq PO BID #60 tabs 02/01/23 tablet,extended release(part/cryst) Results & Data (ED) Vital Signs Vital Signs - 24 hr 02/02/23 14:55 02/02/23 15:31 02/02/23 15:32 Temperature 36.5 C Temperature Source Oral Pulse Rate 68 69 64 Respiratory Rate 18 20 Respiratory Effort / Characteristics Non-Labored Respiratory Depth Normal Blood Pressure 118/73 108/52 L Blood Pressure Mean 88 70 Blood Pressure Position Pulse Oximetry 96 96 Oxygen Delivery Method Room Air Nasal Cannula Oxygen Flow Rate 2 Sepsis Recent Fever Within 48 Hours No Sepsis New/Unexplained Change in Mental Status No Sepsis Action Taken by Nursing No Action Required 02/02/23 15:44 02/02/23 15:50 02/02/23 16:00 Temperature Temperature Source Pulse Rate 65 62 64 Respiratory Rate 18 23 19 Respiratory Effort / Characteristics Respiratory Depth Blood Pressure 91/47 L 98/48 L 101/44 L Blood Pressure Mean 61 64 63 Blood Pressure Position Pulse Oximetry 96 94 99 Oxygen Delivery Method Nasal Cannula Nasal Cannula Nasal Cannula Oxygen Flow Rate 2 2 2 Sepsis Recent Fever Within 48 Hours Sepsis New/Unexplained Change in Mental Status Sepsis Action Taken by Nursing 02/02/23 16:02 02/02/23 16:06 02/02/23 16:07 Temperature 36.8 C Temperature Source Oral Pulse Rate 62 62 Respiratory Rate 22 18 Respiratory Effort / Characteristics Respiratory Depth Blood Pressure 120/63 120/63 Blood Pressure Mean 82 82 Blood Pressure Position Lying Pulse Oximetry 97 94 97 Oxygen Delivery Method Nasal Cannula Nasal Cannula Oxygen Flow Rate 2 2 Sepsis Recent Fever Within 48 Hours Sepsis New/Unexplained Change in Mental Status Sepsis Action Taken by Nursing Laboratory Data 02/02/23 19:09 02/02/23 15:47 Lab Results 02/02/23 02/02/23 02/02/23 Range/Units 15:47 16:07 16:09 WBC 12.28 H (4.8-10.8) K/ul RBC 3.95 L (4.20-5.40) M/uL Hgb 11.3 L (12.0-16.0) g/dl POC Hgb 10.2 L (12.0-16.0) g/dl Hct 36.5 L (37.0-47.0) % POC Hct 30 L (37-47) % MCV 92.4 (80.0-100.0) fL MCH 28.6 (25.0-34.0) pg MCHC 31.0 L (32.0-36.0) g/dL RDW Std Deviation 54.5 H (36.4-46.3) fL RDW Coeff of Nasir 16.4 H (11.5-14.5) % Plt Count 243 (130-400) K/uL MPV 12.0 (9.4-12.4) fL Immature Gran % (Auto) 0.4 % Neut % (Auto) 76.2 % Lymph % (Auto) 14.0 % Ingham % (Auto) 7.0 % Eos % (Auto) 2.0 % Baso % (Auto) 0.4 % Neut # (Auto) 9.36 H (1.40-6.50) K/uL Lymph # (Auto) 1.72 (1.20-3.40) K/uL Ingham # (Auto) 0.86 H (0.11-0.59) K/uL Eos # (Auto) 0.24 (0.00-0.50) K/uL Baso # (Auto) 0.05 (0.00-0.20) K/uL Immature Gran # (Auto) 0.05 (0.01-0.20) K/uL PT 13.1 H (9.0-12.0) Seconds INR 1.2 H (0.9-1.1) APTT 27.1 (21.0-31.0) Seconds PTT Ratio 1.0 Fibrinogen 371 (184-400) mg/dl D-Dimer 4350 H* (0-500) ug/L FEU Heparin Anti-Xa, LM Wt > 1.50 (< 0.10) IU/ML POC Sodium 142 (135-144) mmol/L Sodium 136 (136-145) mmol/L POC Potassium 4.2 (3.3-5.0) mmol/L Potassium 4.2 (3.5-5.1) mmol/L POC Chloride 103 (101-112) mmol/L Chloride 103 (98-107) mmol/L Carbon Dioxide 23 (21-32) mmol/L POC Total CO2 25 (24-31) mmol/L Anion Gap 10 (3-11) POC Anion Gap 20.0 (16-25) mmol/L POC BUN 23 H (7-18) mg/dl BUN 23 (6-23) mg/dl Creatinine 0.76 (0.6-1.2) mg/dl POC Creatinine 0.8 (0.6-1.3) mg/dl Est Cr Clr Drug Dosing 54.6 ml/min Est GFR ( Amer) 88.3 ml/min Est GFR (Non-Af Amer) 76.2 ml/min BUN/Creatinine Ratio 30.3 H (10-20) Glucose 132 H (70-99(Fasting)) mg/dl POC Glucose (other) 129 H (70-99) mg/dl Calcium 8.8 (8.6-10.3) mg/dl POC Ioniz Calcium Pebbles 1.14 (1.12-1.32) mmol/l Total Bilirubin 0.9 (0.2-1.0) mg/dl AST 27 (13-39) U/L ALT 14 (7-52) U/L Alkaline Phosphatase 81 (34-104) U/L Total Protein 8.3 (6.0-8.3) gm/dl Albumin 3.4 (3.4-5.0) gm/dl Globulin 4.9 H (2.5-4.0) gm/dl Albumin/Globulin Ratio 0.7 L (0.9-2) Lipase 35 (11-82) U/L Blood Type O Positive Antibody Screen NEGATIVE Crossmatch See Detail Administered Medications Pantoprazole Sodium 40 mg/ (Dextrose) 100 mls @ 20 mls/hr IV Q5H RYANN Stop: 03/04/23 15:59 Last Admin: 02/02/23 15:59 Dose: 8 mg/hr, 20 mls/hr Documented By: KAYLENE Ceftriaxone Sodium 2,000 mg/ (Dextrose) 50 mls @ 100 mls/hr IV Q24H RYANN; Protocol Stop: 02/12/23 18:14 Last Admin: 02/02/23 19:41 Dose: 100 mls/hr Documented By: EDWARD Miscellaneous (Icu Protocol For Hyperglycemia) 1 each N/A ACHS RYANN Stop: 02/04/23 18:01 Last Admin: 02/02/23 19:41 Dose: 1 each Documented By: EDWARD Discontinued Medications Pantoprazole Sodium 80 mg/ (Dextrose) 120 mls @ 400 mls/hr IV NOW ONE Stop: 02/02/23 15:54 Last Infusion: 02/02/23 16:22 Dose: Infused Documented By: Admin: 02/02/23 15:54 Dose: 400 mls/hr Documented By: KAYLENE Tranexamic Acid (Tranexamic Acid / 0.7% Nacl) 1,000 mg in 100 mls @ 600 mls/hr IV NOW STA Stop: 02/02/23 15:49 Last Infusion: 02/02/23 16:45 Dose: Infused Documented By: Admin: 02/02/23 15:57 Dose: 600 mls/hr Documented By: KAYLENE Sodium Chloride (Nss) 1,000 mls @ 999 mls/hr IV .Q1H1M ONE Stop: 02/02/23 16:40 Last Infusion: 02/02/23 19:14 Dose: Infused Documented By: Admin: 02/02/23 16:00 Dose: 999 mls/hr Documented By: KAYLENE Prothrombin Complex Concent ( (Human) 2,000 units/ Syringe) 80 mls @ 10 mls/min IV NOW STA Stop: 02/02/23 15:46 Last Admin: 02/02/23 15:50 Dose: 10 mls/min Documented By: BRIDGETTE Ioversol (Optiray 320 100ml) 90 ml IV ONCE ONE Stop: 02/02/23 18:55 Last Admin: 02/02/23 18:54 Dose: 90 ml Documented By: JESSICA Misjosianeous (Stat Iv/Im) 1 each N/A NOW STA Stop: 02/02/23 15:40 Last Admin: 02/02/23 15:54 Dose: 1 each Documented By: KAYLENE Miscellaneous (Rapid Sequence Induction Bag) Confirm Administered Dose 1 each N/A .STK-MED ONE Stop: 02/02/23 16:17 Last Admin: 02/02/23 19:11 Dose: Not Given Documented By: MEGAN Ondansetron HCl (Ondansetron Inj 2 Mg/Ml 2 Ml Vial) Confirm Administered Dose 4 mg .ROUTE .STK-MED ONE Stop: 02/02/23 16:22 Last Admin: 02/02/23 16:24 Dose: Not Given Documented By: KAYLENE Ondansetron HCl (Ondansetron Inj 2 Mg/Ml 2 Ml Vial) 4 mg IV NOW STA Stop: 02/02/23 16:23 Last Admin: 02/02/23 16:24 Dose: 4 mg Documented By: KAYLENE Pantoprazole Sodium (Pantoprazole Bolus/Drip) 1 each IV NOW STA Stop: 02/02/23 15:38 Last Admin: 02/02/23 15:54 Dose: 1 each Documented By: KAYLENE Imaging Data Radiologist's Impression: Abdomen/Pelvis CT 02/02/23 15:37 CT abd pelvis IV con only CLINICAL HISTORY: gi bleed TECHNIQUE: Helical axial images of the abdomen and pelvis were obtained and displayed. Automated dose lowering techniques and/or adjustment according to patient size were utilized for this exam. This exam was performed with intravenous contrast. CT DOSE: 655.67 mGy.cm COMPARISON: Comparison is made to CT abdomen pelvis 01/29/2023 FINDINGS: Lower chest: Bilateral moderate pleural effusions are seen, left greater than right, with underlying atelectasis. Liver: Unremarkable. No focal lesions are seen. Gallbladder and biliary tree: The gallbladder wall measures 3 mm in diameter and there is a focus of air in the gallbladder. Biliary stent is seen. Pancreas: Unremarkable, no focal lesions. Spleen: Unremarkable. Adrenals: Unremarkable. Kidneys and ureters: Unremarkable. Bladder: Huerta catheter is seen. Reproductive organs: There is suggestion of a fibroid. Bowel: Diverticulosis is seen without evidence of diverticulitis. Fluid contents are seen in the colon. The appendix is unremarkable. No evidence of colitis. There is a moderate hiatal hernia. There is a soft tissue density mass in the stomach measuring 63 x 42 mm, new from prior exam. Lymph nodes Retroperitoneal: Unremarkable. Pelvic: Unremarkable. Mesenteric: Unremarkable. Peritoneum: Small ascites is seen. No evidence of pneumoperitoneum. Vessels: Atherosclerotic calcifications are seen. Abdominal wall: Unremarkable. Bones: Degenerative changes in the visualized spine. IMPRESSION: 1. There is a soft tissue mass in the stomach. Given the rapidity of onset, this may represent coagulated blood from a bleeding gastric or esophageal ulcer in this patient with GI bleed. A moderate hiatal hernia is seen. No evidence of pneumoperitoneum or other evidence of perforation. 2. Common bile duct stent with pneumobilia. 3. Moderate bilateral pleural effusions with underlying atelectasis. ACT 112: Negative or not required by law. Electronically signed by: Jose Ramon Murcia M.D. 02/02/2023 7:32 PM Discharge Plan Visit Data Chief Complaint: Vomiting ED Provider: Sonny Healy Discharge Problem: Acute GI bleeding, Acute hypotension Discharge Instructions Interventions: ED Discharge Assessment Last Done: 02/02/23 17:16
[2023-02-02 15:59] LABS: Basophils # (auto) 0.05 K/uL (0.00-0.20); Basophils % (auto) 0.4 %; Eosinophils # (auto) 0.24 K/uL (0.00-0.50); Hematocrit (blood only) 36.5 % (37.0-47.0); Hemoglobin 11.3 g/dl (12.0-16.0); Immature Granulocytes # (auto) 0.05 K/uL (0.01-0.20); Immature Granulocytes % (auto) 0.4 %; Lymphocytes # (auto) 1.72 K/uL (1.20-3.40); Mean Corpuscular Hemoglobin 28.6 pg (25.0-34.0); Mean Corpuscular Volume 92.4 fL (80.0-100.0); Monocytes # (auto) 0.86 K/uL (0.11-0.59); Neutrophils # (auto) 9.36 K/uL (1.40-6.50); Neutrophils % (auto) 76.2 %; Platelet Count 243 K/uL (130-400); RDW Coefficient of Variation 16.4 % (11.5-14.5); RDW Standard Deviation 54.5 fL (36.4-46.3); Red Blood Count 3.95 M/uL (4.20-5.40); White Blood Count 12.28 K/ul (4.8-10.8)
[2023-02-02] MEDS: PANTOprazole 40 MG in DEXTROSE 5% MINI-B 100 ML IV SCH ×2 (15:59→20:56)
[2023-02-02 16:11] LABS: Albumin Level 3.4 gm/dl (3.4-5.0); Bilirubin,Total 0.9 mg/dl (0.2-1.0); Calcium 8.8 mg/dl (8.6-10.3); Potassium 4.2 mmol/L (3.5-5.1)
--- NOTE | 2023-02-02 16:13 | Anesthesiology Consultation ---
Date of Service February 02, 2023 Assessment & Plan Chart Review Chart Review: Acceptable Risk for Surgery and Patient NOT seen in Pre Admission Testing Consults Requested none ASA [id number] Proposed Anesthesia Anesthesia Type: General History Height/Weight Height: 5 ft 2 in Weight: 62.1 kg Allergies Allergy/AdvReac Type Severity Reaction Status Date / Time iron Allergy Rash Verified 01/27/23 15:23 Medications Home Medications Medication Instructions Recorded Confirmed Last Taken cyanocobalamin (vitamin B-12) 1,000 mcg PO QAM 05/14/21 01/27/23 01/07/23 1,000 mcg tablet (Vitamin B-12) sucralfate 100 mg/mL oral 10 ml PO QID PRN Gi Upset 11/22/22 01/27/23 11/21/22 suspension aspirin 81 mg tablet,delayed 81 mg PO QAM 01/07/23 01/27/23 01/07/23 release amiodarone 200 mg tablet 200 mg PO BID #60 tabs 01/15/23 01/27/23 Unknown pantoprazole 40 mg tablet,delayed 40 mg PO BID #60 tabs 01/15/23 01/27/23 Unknown release levothyroxine 50 mcg tablet 50 mcg PO QAM 01/27/23 01/27/23 Unknown midodrine 2.5 mg tablet 2.5 mg PO TIDM 01/27/23 01/27/23 Unknown apixaban 5 mg tablet (Eliquis) 5 mg PO BID #60 tabs 01/28/23 Unknown amoxicillin 875 mg-potassium 1 tab PO BIDM #10 tabs 02/01/23 Unknown clavulanate 125 mg tablet furosemide 40 mg tablet 80 mg (2 x 40 mg) PO BID #60 tabs 02/01/23 Unknown potassium chloride 20 mEq 20 meq PO BID #60 tabs 02/01/23 Unknown tablet,extended release(part/cryst) Active Medications Generic Name Dose Route Start Last Admin Trade Name Freq PRN Reason Stop Dose Admin Pantoprazole Sodium 40 mg/ 100 mls @ 20 mls/hr 02/02/23 16:00 02/02/23 15:59 Dextrose IV 03/04/23 15:59 8 mg/hr Q5H RYANN 20 mls/hr Administration 8 MG/HR Sodium Chloride 1,000 mls @ 999 mls/hr 02/02/23 15:40 02/02/23 16:00 Nss IV 02/02/23 16:40 999 mls/hr .Q1H1M ONE Administration Past Medical History Medical History Dyspnea on exertion Pleural effusion due to CHF (congestive heart failure) Acute on chronic heart failure with preserved ejection fraction (HFpEF) Acute combined systolic and diastolic CHF, NYHA class 3 Acute on chronic diastolic (congestive) heart failure Nausea & vomiting Elevated troponin Chronic diastolic heart failure Cardiac amyloidosis Multiple myeloma GI bleed Exercise / Class Metabolic Activity III < 4 Walking/Shop/Light housework Past Family History Family History Father , 50s Stroke Mother , 90 Coronary heart disease Past Surgical History Surgical History History of colonoscopy History of tubal ligation Past Anesthesia History No Hx of Anesthesia Complications and No Family Hx of Anesthesia Complications History of PONV No Hx of PONV and No Hx of Motion Sickness Social History Smoking Status: Never smoker Do You Dip or Chew Tobacco: No Hx Alcohol Use: No Hx Substance Use: No substance use type: does not use Physical Exam Vital Signs Last Vital Signs Temp 36.8 C 02/02/23 16:07 Pulse 62 02/02/23 16:07 Resp 18 02/02/23 16:07 BP 120/63 02/02/23 16:07 Pulse Ox 97 02/02/23 16:07 O2 Del Method Nasal Cannula 02/02/23 16:02 O2 Flow Rate 2 02/02/23 16:02 Testing Laboratory Results 02/02/23 15:47 02/02/23 15:47 Electrocardiogram Date: 01/27/23 Findings: + pertinent finding (AV dual paced rhythm @ 61) Chest X-Ray Date: 02/01/23 Findings: + cardiomegaly, + pulmonary vascular congestion (mild pulmonary edema) and + pleural effusion (moderate B/L pleural effusions) Echocardiogram Date: 11/22/22 EF: 60% LV Function: normal RWMA: + none Other Findings: + LVH (severe concentric LVH) and + diastolic dysfunction (Grade 3) Valvular Disease: + MR (mild) TR-severe PAP 43 torr RV Fxn -NL LV cavity- very small
[2023-02-02] MEDS ORDERED: RAPID SEQUENCE INDUCTION BAG ONE (16:16)
[2023-02-02 16:17] LABS: Albumin Globulin Ratio 0.7 (0.9-2); BUN Creatinine Ratio 30.3 (10-20); Creatinine Clr Calc Pharmacy 54.6 ml/min; Est GFR (African American) 88.3 ml/min; Est GFR (Non-African American) 76.2 ml/min; Globulin 4.9 gm/dl (2.5-4.0); Total Protein 8.3 gm/dl (6.0-8.3)
[2023-02-02 16:21] LABS: iSTAT Creatinine 0.8 mg/dl (0.6-1.3); iSTAT Hemoglobin 10.2 g/dl (12.0-16.0); iSTAT Ionized Calcium 1.14 mmol/l (1.12-1.32); iSTAT Potassium 4.2 mmol/L (3.3-5.0)
[2023-02-02] MEDS ORDERED: ONDANSETRON INJ 2 MG/ML 2 ML VIAL ONE (16:21)
[2023-02-02] MEDS ORDERED: ONDANSETRON INJ 2 MG/ML 2 ML VIAL IV STA ×2 (16:22→21:26)
[2023-02-02] MEDS ORDERED: ETOMIDATE 2 MG/ML 20 ML VIAL IV ONE (16:42)
[2023-02-02] MEDS ORDERED: PROPOFOL IV EMULSION 10 MG/ML 20 ML VIAL IV ONE (16:44)
[2023-02-02] MEDS ORDERED: fentaNYL citrate PF 100 MCG/2 ML VIAL ONE (16:45)
[2023-02-02] MEDS ORDERED: MIDAZOLAM HCL 1 MG/ML 2ML VIAL ONE (16:46)
--- NOTE | 2023-02-02 16:54 | Gastrointestinal Consultation ---
Date of Consultation February 02, 2023 Assessment & Plan (1) GI bleed: 77 yo female with complicated medical history including cardiac amyloid, PPM, CHF and recent hospitalization for CHF and new onset of AF during which she was started on Eloquis as well as [id number]. She has a history of cholecystitis and recent ERCP with plans for EUS/Axois in the near future as she is not a candidate for cholecystectomy per surgery. During that procedure she was noted to have an ulcer in the gastric antrum. Presented today with hematemesis, rectal bleeding and syncope. - PRBC - FFP - Emergent EGD in the OR - PPI gtt History of Present Illness Reason for Consultation: GI bleed Requesting Physician: Emergency Medicine History of Present Illness Ms. Anel Hogue is a 77 yr old female pt of Dr. Rosendo Boyce w a hx of multiple myeloma S/P chemo, cardiac amyloidosis, valvular heart dx (mild MR/severe TR), CHF, Hypotension on midodrine, Pulm HTN, CHF recently hospitalized with fluid overload w new onset A-fib (started on Eloquis in the last 7-10 days. She als ohad a recent EGD which showed an ulcer in the gastric antrum as well as a large hiatal hernia (with clip from prior Elías's ulcer tx). She also recently underwent an ERCP and there are plans for possilbe Axios stent placement as she is not a candidate for cholecystectomy per surgery given her comorbidities. SHe was just discharged to home yesterday and was doing fine until this afternoon when her came inside and noted she was complaining of nausea and "spitting up" blood. He wanted to bring her ot the ER but she decided to call home nursing who then advised her to go to the ER. Her helped her stand and she felt like she was going to pass out and called EMS. On arrival in the ER she had an episode of hematemesis and red rectal bleeding. She also had an episode of syncope her ein the ER. Currently receiving 2 units of PRBC as well as FFP. On ASA at home as well. Allergies Allergy/AdvReac Type Severity Reaction Status Date / Time iron Allergy Rash Verified 01/27/23 15:23 Home Medications Medication Instructions Recorded Confirmed Type cyanocobalamin (vitamin B-12) 1,000 mcg PO QAM 05/14/21 02/02/23 History 1,000 mcg tablet (Vitamin B-12) sucralfate 100 mg/mL oral 10 ml PO QID PRN Gi Upset 11/22/22 02/02/23 History suspension aspirin 81 mg tablet,delayed 81 mg PO QAM 01/07/23 02/02/23 History release amiodarone 200 mg tablet 200 mg PO BID #60 tabs 01/15/23 02/02/23 Rx pantoprazole 40 mg tablet,delayed 40 mg PO BID #60 tabs 01/15/23 02/02/23 Rx release levothyroxine 50 mcg tablet 50 mcg PO QAM 01/27/23 02/02/23 History midodrine 2.5 mg tablet 2.5 mg PO TIDM 01/27/23 02/02/23 History apixaban 5 mg tablet (Eliquis) 5 mg PO BID #60 tabs 01/28/23 02/02/23 Rx amoxicillin 875 mg-potassium 1 tab PO BIDM #10 tabs 02/01/23 02/02/23 Rx clavulanate 125 mg tablet furosemide 40 mg tablet 80 mg (2 x 40 mg) PO BID #60 tabs 02/01/23 02/02/23 Rx potassium chloride 20 mEq 20 meq PO BID #60 tabs 02/01/23 02/02/23 Rx tablet,extended release(part/cryst) Patient History Medical History (Updated 02/02/23 @ 16:50 by Janae Casas DO) GI bleed Dyspnea on exertion Pleural effusion due to CHF (congestive heart failure) Acute on chronic heart failure with preserved ejection fraction (HFpEF) Acute combined systolic and diastolic CHF, NYHA class 3 Acute on chronic diastolic (congestive) heart failure Nausea & vomiting Elevated troponin Chronic diastolic heart failure Cardiac amyloidosis Multiple myeloma Surgical History History of colonoscopy History of tubal ligation Family History Father , 50s Stroke Mother , 90 Coronary heart disease Social History Smoking Status: Never smoker Second Hand Exposure: No; Do You Dip or Chew Tobacco: No; Hx Alcohol Use: No Hx Substance Use: No Preferred Language: Citizen Of [place] 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: Effective Church Organist Required: No Beliefs That Will Affect Care: None marital status: Current Living Situation: Spouse Current Living Situation Comment: with Feels Safe at Home: Yes Assistive Devices: Walker Review of Systems Review of Systems: All systems reviewed & are unremarkable except as noted in HPI & below Physical Exam Constitutional: WD/WN, vitals as above Eyes: PERRL, conjunctivae normal, anicteric sclerae Neck: trachea midline, no thyromegaly Respiratory: normal respiratory effort, lungs clear to auscultation Cardiovascular: RRR, no murmur, no edema Gastrointestinal (Abdomen): normal bowel sounds, soft, nontender, no hepatosplenomegaly Musculoskeletal: no cyanosis or clubbing, extremities motor strength 5/5 Neurologic: CN's II-XI intact bilaterally Results & Data Vital Signs (Past 12 Hours) Vital Signs Temp Pulse Resp BP BP Pulse Ox O2 Del Method 02/02/23 16:30 67 19 98/60 L 94 Nasal Cannula 02/02/23 16:28 18 125/73 96 Nasal Cannula 02/02/23 16:25 61 18 125/73 95 Nasal Cannula 02/02/23 16:24 61 18 125/73 02/02/23 16:21 63 20 130/68 98 Nasal Cannula 02/02/23 16:19 69 18 89/55 L 98 02/02/23 16:16 80 19 89/55 L 100 Nasal Cannula 02/02/23 16:07 36.8 C 62 18 120/63 97 02/02/23 16:06 62 22 120/63 94 Nasal Cannula 02/02/23 16:02 97 Nasal Cannula 02/02/23 16:00 64 19 101/44 L 99 Nasal Cannula 02/02/23 15:50 62 23 98/48 L 94 Nasal Cannula 02/02/23 15:44 65 18 91/47 L 96 Nasal Cannula 02/02/23 15:32 64 20 108/52 L 96 Nasal Cannula 02/02/23 15:31 69 02/02/23 14:55 36.5 C 68 18 118/73 96 Room Air O2 Flow Rate 02/02/23 16:30 2 02/02/23 16:28 2 02/02/23 16:25 2 02/02/23 16:24 02/02/23 16:21 2 02/02/23 16:19 2 02/02/23 16:16 2 02/02/23 16:07 02/02/23 16:06 2 02/02/23 16:02 2 02/02/23 16:00 2 02/02/23 15:50 2 02/02/23 15:44 2 02/02/23 15:32 2 02/02/23 15:31 02/02/23 14:55
--- NOTE | 2023-02-02 17:13 | History & Physical Report ---
Date of Service February 02, 2023 Assessment & Plan (1) GI bleed: Plan This is a 77-year-old female who is medically complex with significant past medical history of cardiac amyloidosis, TBS status post PPM on 01/13/2023, chronic HFpEF, PAF, history multiple myeloma status postchemotherapy who presents to ED secondary to hematemesis. Patient admitted 01/27-02/01 2/2 acute/chronic HFpEF, appropriately diuresed at that time. Prior to D/C started on Eliquis on 01/30 due to Afib that was dx previously in December for stroke prevention. At that time was s/p ERCP which revealed a nonbleeding gastric ulcer and recommendation was to not begin anticoagulation for 5 days. Prior to admission patient developed hematemesis and when in hospital it recurred along with significant bright red blood per rectum. Patient became hypotensive. Massive transfusion protocol was initiated. She received Kcentra and TXA in ED. Gastroenterology at bedside who is taking patient for emergent EGD prior to admission to ICU Acute GI bleed Patient has prior history of gastric ulcer requiring Endo Clip in September 2021, and recent EGD in December 2022 revealed nonbleeding gastric ulcer Prior to hospitalization patient on aspirin and Eliquis, these will be held PPI bolus/gtt initiated continue massive transfusion protocol Pt went for emergent EGD by Dr. Casas Post op she will be admitted to ICU continue NPO, PPI bolus/gtt consult Dr. Trejo executive office manager Addendum @1900 EGD reviewed and discussed with pt at bedside. Discussed with general surgery who will come evaluate the patient. CT a/p w/ contrast ordered to eval for perforation. If perforation will need transferred to tertiary facility. Repeat h/h after 2 units and 1 unit FFP 8.9. Klebsiella UTI, POA UA from 01/27, started on Augmentin will place on IV rocephin for now Tachybrady syndrome s/p pacemaker 01/13 Paroxysmal atrial tachycardia: Status post PPM dual-chamber placed on 01/13 at [facility] Complicated with PNX post procedure;no chest tube Interrogation of pacemaker showed stable thresholds Continue Amiodarone 200mg BID HOLD ASA, Eliquis - will need discussion with GI/cards prior to resumption of either Hypothyroid on Synthroid 50mcg as outpatient, resume when able Chronic Hypotension On Midodrine 2.5 mg TID as outpatient, resume when able Hx of Multiple myeloma s/p chemo follows oncology locally Disposition: PCP: Dr. Swenson CODE STATUS: Full code Admit to ICU post EGD Pt was seen and examined in collaboration with Dr. Castillo, please see addendum History of Present Illness Primary Care Provider: Rosendo Boyce DO This is a 77-year-old female who is medically complex with significant past medical history of cardiac amyloidosis, TBS status post PPM on 01/13/2023, chronic HFpEF, PAF, history multiple myeloma status postchemotherapy who presents to ED secondary to hematemesis. Of significance patient has had multiple recent hospitalizations. Most recently she was hospitalized on 01/27 and discharged yesterday on 02/01/30 secondary to acute on chronic heart failure with preserved ejection fraction. On admission she was noted to have pleural effusions on x-ray. She had recently been off Lasix after being discharged from the hospital after undergoing PPM. Pulmonology was initially consulted to evaluate for possible thoracentesis; however, due to her lack of hypoxia or shortness of breath this was deferred. She was started on IV diuretics with slight improvement. She was seen and evaluated by cardiology and her pacemaker was interrogated which revealed stable thresholds. They continued her on amiodarone twice daily. Prior to discharge her Eliquis was started after initially being diagnosed with new onset A-fib in early December. Her Eliquis initially was deferred due to GI evaluation. Previous hospitalization she underwent biliary stent placement for choledocholithiasis and is planning to go axial stenting at an outside hospital due to inability to undergo chol ecystectomy. During that ERCP she was noted to have a nonbleeding gastric ulcer. She previously did have a bleeding gastric ulcer in September 2021 requiring clipping. Due to no further bleeding she was started on Eliquis on 01/30/2023 and her hemoglobin remained stable. She was discharged in good spirits and otherwise felt well. She was fatigued and had decreased appetite. Her went to catholic this morning whenever he came home he noticed that she was spitting up blood into a container. She noted that this just started. She called into PCPs office who referred her to ED. Once arriving to ED patient had significant episode of hematemesis as well as bright red blood per rectum. Per ED provider she filled up a whole emesis basin full of bright red blood. She then became hypotensive and had episode of syncope. Massive transfusion protocol was initiated and she received Kcentra as well as TXA. She was also typed and crossed for 4 units. Ip Architect was consulted by ED provider who evaluated patient at bedside and planning to undergo emergent EGD prior to admission to ICU. Patient's is at bedside who also helps elicit history. Allergies Allergy/AdvReac Type Severity Reaction Status Date / Time iron Allergy Rash Verified 01/27/23 15:23 Home Medications Medication Instructions Recorded Confirmed Type cyanocobalamin (vitamin B-12) 1,000 mcg PO QAM 05/14/21 02/02/23 History 1,000 mcg tablet (Vitamin B-12) sucralfate 100 mg/mL oral 10 ml PO QID PRN Gi Upset 11/22/22 02/02/23 History suspension aspirin 81 mg tablet,delayed 81 mg PO QAM 01/07/23 02/02/23 History release amiodarone 200 mg tablet 200 mg PO BID #60 tabs 01/15/23 02/02/23 Rx pantoprazole 40 mg tablet,delayed 40 mg PO BID #60 tabs 01/15/23 02/02/23 Rx release levothyroxine 50 mcg tablet 50 mcg PO QAM 01/27/23 02/02/23 History midodrine 2.5 mg tablet 2.5 mg PO TIDM 01/27/23 02/02/23 History apixaban 5 mg tablet (Eliquis) 5 mg PO BID #60 tabs 01/28/23 02/02/23 Rx amoxicillin 875 mg-potassium 1 tab PO BIDM #10 tabs 02/01/23 02/02/23 Rx clavulanate 125 mg tablet furosemide 40 mg tablet 80 mg (2 x 40 mg) PO BID #60 tabs 02/01/23 02/02/23 Rx potassium chloride 20 mEq 20 meq PO BID #60 tabs 02/01/23 02/02/23 Rx tablet,extended release(part/cryst) Past Med/Surg History Medical History GI bleed Dyspnea on exertion Pleural effusion due to CHF (congestive heart failure) Acute on chronic heart failure with preserved ejection fraction (HFpEF) Acute combined systolic and diastolic CHF, NYHA class 3 Acute on chronic diastolic (congestive) heart failure Nausea & vomiting Elevated troponin Chronic diastolic heart failure Cardiac amyloidosis Multiple myeloma Surgical History History of colonoscopy History of tubal ligation Family History Father , 50s Stroke Mother , 90 Coronary heart disease Social History Smoking Status: Former smoker Second Hand Exposure: No; Do You Dip or Chew Tobacco: No; Tobacco Cessation Education Requested by Patient: No Hx Alcohol Use: No Hx Substance Use: No Preferred Language: Algerian 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: Effective Bank Accountant Required: No Beliefs That Will Affect Care: None marital status: Current Living Situation: Spouse Current Living Situation Comment: with Feels Safe at Home: Yes Safety Concerns: Feels Safe At This Time Assistive Devices: Walker Review of Systems Review of Systems: All systems reviewed & are unremarkable except as noted in HPI & below Physical Exam Physical Exam: please refer to Dr. Castillo addendum for physical exam findings. Results & Data Results & Data Vital Signs (Past 12 Hours) Vital Signs Temp Pulse Resp BP BP Pulse Ox O2 Del Method 02/02/23 16:52 36.7 C 60 18 110/60 97 02/02/23 16:30 67 19 98/60 L 94 Nasal Cannula 02/02/23 16:28 18 125/73 96 Nasal Cannula 02/02/23 16:25 61 18 125/73 95 Nasal Cannula 02/02/23 16:24 61 18 125/73 02/02/23 16:21 63 20 130/68 98 Nasal Cannula 02/02/23 16:19 69 18 89/55 L 98 02/02/23 16:16 80 19 89/55 L 100 Nasal Cannula 02/02/23 16:07 36.8 C 62 18 120/63 97 02/02/23 16:06 62 22 120/63 94 Nasal Cannula 02/02/23 16:02 97 Nasal Cannula 02/02/23 16:00 64 19 101/44 L 99 Nasal Cannula 02/02/23 15:50 62 23 98/48 L 94 Nasal Cannula 02/02/23 15:44 65 18 91/47 L 96 Nasal Cannula 02/02/23 15:32 64 20 108/52 L 96 Nasal Cannula 02/02/23 15:31 69 02/02/23 14:55 36.5 C 68 18 118/73 96 Room Air O2 Flow Rate 02/02/23 16:52 02/02/23 16:30 2 02/02/23 16:28 2 02/02/23 16:25 2 02/02/23 16:24 02/02/23 16:21 2 02/02/23 16:19 2 02/02/23 16:16 2 02/02/23 16:07 02/02/23 16:06 2 02/02/23 16:02 2 02/02/23 16:00 2 02/02/23 15:50 2 02/02/23 15:44 2 02/02/23 15:32 2 02/02/23 15:31 02/02/23 14:55 Medications Administered Medication List Pantoprazole Sodium 40 mg/ (Dextrose) 100 mls @ 20 mls/hr IV Q5H RYANN Stop: 03/04/23 15:59 Last Admin: 02/02/23 15:59 Dose: 8 mg/hr, 20 mls/hr Documented By: KAYLENE Discontinued Medications Pantoprazole Sodium 80 mg/ (Dextrose) 120 mls @ 400 mls/hr IV NOW ONE Stop: 02/02/23 15:54 Last Infusion: 02/02/23 16:22 Dose: Infused Documented By: Admin: 02/02/23 15:54 Dose: 400 mls/hr Documented By: KAYLENE Tranexamic Acid (Tranexamic Acid / 0.7% Nacl) 1,000 mg in 100 mls @ 600 mls/hr IV NOW STA Stop: 02/02/23 15:49 Last Infusion: 02/02/23 16:45 Dose: Infused Documented By: Admin: 02/02/23 15:57 Dose: 600 mls/hr Documented By: KAYLENE Sodium Chloride (Nss) 1,000 mls @ 999 mls/hr IV .Q1H1M ONE Stop: 02/02/23 16:40 Last Admin: 02/02/23 16:00 Dose: 999 mls/hr Documented By: KAYLENE Prothrombin Complex Concent ( (Human) 2,000 units/ Syringe) 80 mls @ 10 mls/min IV NOW STA Stop: 02/02/23 15:46 Last Admin: 02/02/23 15:50 Dose: 10 mls/min Documented By: BRIDGETTE Miscellaneous (Stat Iv/Im) 1 each N/A NOW STA Stop: 02/02/23 15:40 Last Admin: 02/02/23 15:54 Dose: 1 each Documented By: KAYLENE Ondansetron HCl (Ondansetron Inj 2 Mg/Ml 2 Ml Vial) Confirm Administered Dose 4 mg .ROUTE .STK-MED ONE Stop: 02/02/23 16:22 Last Admin: 02/02/23 16:24 Dose: Not Given Documented By: KAYLENE Ondansetron HCl (Ondansetron Inj 2 Mg/Ml 2 Ml Vial) 4 mg IV NOW STA Stop: 02/02/23 16:23 Last Admin: 02/02/23 16:24 Dose: 4 mg Documented By: KAYLENE Pantoprazole Sodium (Pantoprazole Bolus/Drip) 1 each IV NOW STA Stop: 02/02/23 15:38 Last Admin: 02/02/23 15:54 Dose: 1 each Documented By: KAYLENE ECG Additional Comments: EKG from recently admission 01/27/23 av dual paced rhythm, qtc 491 sms COVID-19 Results Results COVID-19 Adm Lab Results: RBC 3.95 M/uL (4.20-5.40) L 02/02/23 WBC 12.28 K/ul (4.8-10.8) H 02/02/23 Hgb 8.9 g/dl (12.0-16.0) L 02/02/23 Hct 36.5 % (37.0-47.0) L 02/02/23 Plt Count 243 K/uL (130-400) 02/02/23 Neutrophils (%) (Auto) 76.2 % 02/02/23 Lymphocytes (%) (Auto) 14.0 % 02/02/23 Monocytes # (Auto) 0.86 K/uL (0.11-0.59) H 02/02/23 Eosinophils # (Auto) 0.24 K/uL (0.00-0.50) 02/02/23 Immature Granulocyte % (Auto) 0.4 % 02/02/23 Neutrophils # (Auto) 9.36 K/uL (1.40-6.50) H 02/02/23 Lymphocytes # (Auto) 1.72 K/uL (1.20-3.40) 02/02/23 Monocytes # (Auto) 0.86 K/uL (0.11-0.59) H 02/02/23 Eosinophils # (Auto) 0.24 K/uL (0.00-0.50) 02/02/23 Basophils # (Auto) 0.05 K/uL (0.00-0.20) 02/02/23 Immature Granulocyte # (Auto) 0.05 K/uL (0.01-0.20) 3 Na 136 mmol/L (136-145) 02/02/23 K 4.2 mmol/L (3.5-5.1) 02/02/23 Cl 103 mmol/L (98-107) 02/02/23 CO2 23 mmol/L (21-32) 02/02/23 Anion Gap 10 (3-11) 02/02/23 BUN 23 mg/dl (6-23) 02/02/23 Creatinine 0.76 mg/dl (0.6-1.2) 02/02/23 BUN/Creatinine Ratio 30.3 (10-20) H 02/02/23 Glucose Level 132 mg/dl (70-99(Fasting)) H 02/02/23 Ca 8.8 mg/dl (8.6-10.3) 02/02/23 Total Bilirubin 0.9 mg/dl (0.2-1.0) 02/02/23 AST/SGOT 27 U/L (13-39) 02/02/23 ALT/SGPT 14 U/L (7-52) 02/02/23 Alkaline Phosphatase 81 U/L (34-104) 02/02/23 Total Protein 8.3 gm/dl (6.0-8.3) 02/02/23 Albumin 3.4 gm/dl (3.4-5.0) 02/02/23 Globulin 4.9 gm/dl (2.5-4.0) H 02/02/23 Albumin/Globulin Ratio 0.7 (0.9-2) L 02/02/23 D-Dimer 4350 ug/L FEU (0-500) H* 02/02/23 Fibrinogen 371 mg/dl (184-400) 02/02/23 PTT 27.1 Seconds (21.0-31.0) 02/02/23 INR 1.2 (0.9-1.1) H 02/02/23 Code Status & VTE Plan Code Status FULL CODE VTE Prophylaxis Plan VTE Prophylaxis will be ordered: Yes Supervising Physician Co-Signing Physician Notes 77 yo F w/ PMH of cardiac amyloidosis, Tachybrady Syndrome s/p PPM, Chr HFpEF, PAF, Multiple Myeloma s/p post chemotherapy who was recently discharged after hospitalization for Ac on Chr CHF and pleural effusion presented today due to hematemesis and blood in stool. Admitting Hb of 11.3. Pt was recently started on eliquis for Afib. Also she recently underwent ERCP which showed nonbleeding gastric ulcer. She does have h/o gastric ulcer. Admitting labs reviewed. Admitting imaging pending. Holding asp and eliquis. c/w iv PPI. NPO. 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 GI evaled and scoped; general Sx has been consulted for suspicion of perforation. Clinically no signs of perforation on abd exam, await CTAP iv con. Needing more O2, and BP soft; might need diuresis (given h/o HF) and ? pressor support; defer to ICU team. On Exam: GENERAL: Alert and oriented x3. NAD, on 2L NC O2, appears weak/tired HEENT: + pallor, no icterus. Pupils equal, round and reactive to light. Oral mucosa moist. NECK: No JVD, no neck masses. HEART: S1 and S2 heard. Regular rate and rhythm. No murmur, no gallop. RESPIRATORY SYSTEM: Normal AP diameter. No accessory muscle use. No wheezing, no crackles. ABDOMEN: Soft, bowel sounds present, nontender, no distention. CENTRAL NERVOUS SYSTEM: No facial droop. Speech is clear. Obeys simple commands. Moves extremities. EXTREMITIES: No edema, no erythema seen. I have seen and examined the patient and have discussed the case with the provider above. I agree with the assessment and plan as stated.
[2023-02-02 17:36] LABS: ANTI-Xa, LMWH(Low Molecular Wt > 1.50 IU/ML (< 0.10); Fibrinogen 371 mg/dl (184-400); INR 1.2 (0.9-1.1); Partial Thromboplastin Time 27.1 Seconds (21.0-31.0); Prothrombin Time 13.1 Seconds (9.0-12.0)
--- NOTE | 2023-02-02 17:41 | GI REPORT ---
Patient Name: Anel Hogue Procedure Date: 02/02/2023 4:52 PM Date of : 1945 Admit Type: Emergency Department Age: 77 Gender: Female Attending MD: Janae Casas DO, Procedure: Upper GI endoscopy Providers: Janae Casas DO Referring MD: Referred Self, Sonny Healy Md Indications: Hematemesis, Hematochezia Medicines: General Anesthesia Complications: No immediate complications. Estimated Blood Loss: Estimated blood loss: none. Procedure: Pre-Anesthesia Assessment: - Prior to the procedure, a History and Physical was performed, and patient medications, allergies and sensitivities were reviewed. The patient's tolerance of previous anesthesia was reviewed. - The risks and benefits of the procedure and the sedation options and risks were discussed with the patient. All questions were answered and informed consent was obtained. - Patient identification and proposed procedure were verified prior to the procedure by the physician and the nurse. The procedure was verified in the pre-procedure area in the procedure room. - Mental Status Examination: alert and oriented. Airway Examination: normal oropharyngeal airway and neck mobility. Respiratory Examination: poor air movement. CV Examination: regular rate and rhythm. Abdominal Examination: bowel sounds present, abdomen soft and non-tender, no masses or organomegaly noted. - ASA Grade Assessment: E - Emergency. After obtaining informed consent, the endoscope was passed under direct vision. Throughout the procedure, the patient's blood pressure, pulse, and oxygen saturations were monitored continuously. The Endoscope was introduced through the mouth, and advanced to the prepyloric region, stomach. The upper GI endoscopy was accomplished without difficulty. The patient tolerated the procedure well. Findings: Hematin (altered blood/oeqitc-[id number]-fyha material) was found in the lower third of the esophagus. Clotted blood was found in the entire examined stomach. One non-obstructing cratered gastric ulcer was found in the gastric antrum. The ulcer crater is suspicious for perforation. Impression: - Hematin (altered blood/wzphqg-okcvwj-yfiu material) in the lower third of the esophagus which refluxed from the stomach. No esophageal ulcers or active bleeding.. - Clotted blood in the entire stomach. - There is a large cratered ulceration with clot and concern for perforation at site of ulcer visualized 01/10. The ulcer crater is suspicious for perforation. - No specimens collected. Recommendation: - Follow an antireflux regimen. - PPI gtt - Consult surgery - Return patient to ICU for ongoing care. Janae Casas D.O. Janae Casas, 02/02/2023 5:41:02 PM This report has been signed electronically. Note Initiated On: 02/02/2023 4:52 PM Number of Addenda: 0 I attest to the content of the Intraoperative Record and orders documented therein, exceptions below {[id number]}
[2023-02-02] MEDS ORDERED: ICU Protocol for HYPERglycemia SCH (18:02)
[2023-02-02] MEDS ORDERED: PROMETHAZINE HCL 12.5 MG in SODIUM CHLORIDE 0.9% 50 ML IV PRN (18:10)
[2023-02-02] MEDS ORDERED: FLUMAZENIL 0.1 MG/1 ML 10 ML VIAL IV PRN (18:10)
[2023-02-02] MEDS ORDERED: ATROPINE SULFATE 0.1 MG/ML 10ML SYR IV PRN (18:10)
[2023-02-02] MEDS ORDERED: ONDANSETRON INJ 2 MG/ML 2 ML VIAL IV PRN (18:10)
[2023-02-02] MEDS ORDERED: ePHEDrine sulfate 50 MG/ML AMP IV PRN (18:10)
[2023-02-02] MEDS ORDERED: NALOXONE HCL 0.4 MG/1 ML VIAL/CARP IV PRN (18:10)
[2023-02-02] MEDS ORDERED: fentaNYL citrate PF 100 MCG/2 ML VIAL IV PRN (18:10)
[2023-02-02] MEDS ORDERED: cefTRIAXone SODIUM 2,000 MG in DEXTROSE 5 % MINI-B 50 ML IV SCH (18:15)
--- NOTE | 2023-02-02 18:31 | Anesthesiology Progress Note ---
Date of Service February 02, 2023 Anesthesia Post Procedure Vital Signs Vital Signs: Temp Pulse Pulse Resp BP BP Pulse Ox 02/02/23 18:20 36.8 C 60 21 92/49 L 98 02/02/23 18:10 60 20 97/53 L 97 02/02/23 18:02 60 02/02/23 18:00 69 15 111/64 94 02/02/23 17:50 36.6 C 74 16 110/60 95 02/02/23 16:52 36.7 C 60 18 110/60 97 02/02/23 16:50 61 23 110/60 97 02/02/23 16:45 60 19 108/65 98 02/02/23 16:41 61 20 108/63 96 02/02/23 16:35 60 20 118/63 96 02/02/23 16:30 67 19 98/60 L 94 02/02/23 16:28 18 125/73 96 02/02/23 16:25 61 18 125/73 95 02/02/23 16:24 61 18 125/73 02/02/23 16:21 63 20 130/68 98 02/02/23 16:19 69 18 89/55 L 98 02/02/23 16:16 80 19 89/55 L 100 02/02/23 16:07 36.8 C 62 18 120/63 97 02/02/23 16:06 62 22 120/63 94 02/02/23 16:02 97 02/02/23 16:00 64 19 101/44 L 99 02/02/23 15:50 62 23 98/48 L 94 02/02/23 15:44 65 18 91/47 L 96 02/02/23 15:32 64 20 108/52 L 96 02/02/23 15:31 69 02/02/23 14:55 36.5 C 68 18 118/73 96 O2 Del Method O2 Flow Rate 02/02/23 18:20 Oxymask 4 02/02/23 18:10 Oxymask 4 02/02/23 18:02 02/02/23 18:00 Oxymask 4 02/02/23 17:50 Oxymask 6 02/02/23 16:52 02/02/23 16:50 Nasal Cannula 2 02/02/23 16:45 Nasal Cannula 2 02/02/23 16:41 Nasal Cannula 2 02/02/23 16:35 Nasal Cannula 2 02/02/23 16:30 Nasal Cannula 2 02/02/23 16:28 Nasal Cannula 2 02/02/23 16:25 Nasal Cannula 2 02/02/23 16:24 02/02/23 16:21 Nasal Cannula 2 02/02/23 16:19 2 02/02/23 16:16 Nasal Cannula 2 02/02/23 16:07 02/02/23 16:06 Nasal Cannula 2 02/02/23 16:02 Nasal Cannula 2 02/02/23 16:00 Nasal Cannula 2 02/02/23 15:50 Nasal Cannula 2 02/02/23 15:44 Nasal Cannula 2 02/02/23 15:32 Nasal Cannula 2 02/02/23 15:31 02/02/23 14:55 Room Air Transfer of Care Handoff Completed per policy Notes Mental Status: alert / awake / arousable Patient Amnestic to Procedure: Yes Nausea / Vomiting: adequately controlled Pain: adequately controlled Airway Patency, RR, SpO2: stable & adequate BP & HR: stable & adequate Hydration State: stable & adequate Anesthetic Complications: no major complications apparent Notes: Pt is critical
[2023-02-02] MEDS ORDERED: OPTIRAY 320 100ml IV ONE (18:54)
--- NOTE | 2023-02-02 19:35 | CT Scan Report ---
CT abd pelvis IV con only CLINICAL HISTORY: gi bleed TECHNIQUE: Helical axial images of the abdomen and pelvis were obtained and displayed. Automated dose lowering techniques and/or adjustment according to patient size were utilized for this exam. This e xam was performed with intravenous contrast. CT DOSE: 655.67 mGy.cm COMPARISON: Comparison is made to CT abdomen pelvis 01/29/2023 FINDINGS: Lower chest: Bilateral moderate pleural effusions are seen, left greater than right, with underlying atelectasis. Liver: Unremarkable. No focal lesions are seen. Gallbladder and biliary tree: The gallbladder wall measures 3 mm in diameter and there is a focus of air in the gallbladder. Biliary stent is seen. Pancreas: Unremarkable, no focal lesions. Spleen: Unremarkable. Adrenals: Unremarkable. Kidneys and ureters: Unremarkable. Bladder: Huerta catheter is seen. Reproductive organs: There is suggestion of a fibroid. Bowel: Diverticulosis is seen without evidence of diverticulitis. Fluid contents are seen in the colo n. The appendix is unremarkable. No evidence of colitis. There is a moderate hiatal hernia. There is a soft tissue density mass in the stomach measuring 63 x 42 mm, new from prior exam. Lymph nodes Retroperitoneal: Unremarkable. Pelvic: Unremarkable. Mesenteric: Unremarkable. Peritoneum: Small ascites is seen. No evidence of pneumoperitoneum. Vessels: Atherosclerotic calcifications are seen. Abdominal wall: Unremarkable. Bones: Degenerative changes in the visualized spine. IMPRESSION: 1. There is a soft tissue mass in the stomach. Given the rapidity of onset, this may represent coagu lated blood from a bleeding gastric or esophageal ulcer in this patient with GI bleed. A moderate hia kalee hernia is seen. No evidence of pneumoperitoneum or other evidence of perforation. 2. Common bile duct stent with pneumobilia. 3. Moderate bilateral pleural effusions with underlying atelectasis. ACT 112: Negative or not required by law. Electronically signed by: Jose Ramon Murcia M.D. 02/02/2023 7:32 PM
[2023-02-02 19:50] LABS: D Dimer 4350 ug/L FEU (0-500)
--- NOTE | 2023-02-02 20:09 | Surgery Consultation ---
Date of Consultation February 02, 2023 Assessment & Plan (1) Pleural effusion due to CHF (congestive heart failure): (2) Acute on chronic heart failure with preserved ejection fraction (HFpEF): (3) Status post placement of cardiac pacemaker: (4) Tachy-walker syndrome: (5) Pneumothorax on left: (6) Chronic heart failure with preserved ejection fraction (HFpEF): (7) Cardiac amyloidosis: (8) Chronic peptic ulcer with bleeding: Plan 77-year-old woman with severe cardiac disease secondary to cardiac amyloidosis presents with massive bleeding from a rapidly enlarging acute on chronic gastric antral ulcer. Although there is no perforation currently, there is high suspicion for possible impending perforation. There also ongoing with massive resuscitation protocol for the rapid bleed. Due to her severe cardiac issues, she is not a candidate for surgical procedure at this hospital. I would recommend transfer to tertiary care for further evaluation and treatment of the upper GI bleed and rapidly expanding gastric ulcer. History of Present Illness Reason for Consultation: possible perforated ulcer Requesting Physician: Héctor Castillo MD Attending Physician: Héctor Castillo MD History of Present Illness 77-year-old woman with extensive cardiac and medical history including cardiac amyloidosis with severe heart failure, tachybradycardia syndrome, pacemaker, was just discharged from the hospital yesterday presents with massive GI bleed and hematemesis of bright red blood in the emergency department. She is on Eliquis and aspirin. Massive transfusion protocol was initiated and she underwent urgent EGD which demonstrated very large cratered ulcer in the gastric antrum, significantly increased in size from last EGD, with stigmata of recent bleed. There is concern for perforation. CT scan was completed which does not demonstrate current perforation, however there is still concern for possible impending perforation. She has a past medical history of multiple myeloma, she has a common bile duct stent and is awaiting an axial stent placement because she is not a surgical candidate for cholecystectomy. She is complaining of some abdominal discomfort but no nausea currently. Her blood pressures are low in the 90/50 range. Allergies Allergy/AdvReac Type Severity Reaction Status Date / Time iron Allergy Rash Verified 01/27/23 15:23 Home Medications Medication Instructions Recorded Confirmed Type cyanocobalamin (vitamin B-12) 1,000 mcg PO QAM 05/14/21 02/02/23 History 1,000 mcg tablet (Vitamin B-12) sucralfate 100 mg/mL oral 10 ml PO QID PRN Gi Upset 11/22/22 02/02/23 History suspension aspirin 81 mg tablet,delayed 81 mg PO QAM 01/07/23 02/02/23 History release amiodarone 200 mg tablet 200 mg PO BID #60 tabs 01/15/23 02/02/23 Rx pantoprazole 40 mg tablet,delayed 40 mg PO BID #60 tabs 01/15/23 02/02/23 Rx release levothyroxine 50 mcg tablet 50 mcg PO QAM 01/27/23 02/02/23 History midodrine 2.5 mg tablet 2.5 mg PO TIDM 01/27/23 02/02/23 History apixaban 5 mg tablet (Eliquis) 5 mg PO BID #60 tabs 01/28/23 02/02/23 Rx amoxicillin 875 mg-potassium 1 tab PO BIDM #10 tabs 02/01/23 02/02/23 Rx clavulanate 125 mg tablet furosemide 40 mg tablet 80 mg (2 x 40 mg) PO BID #60 tabs 02/01/23 02/02/23 Rx potassium chloride 20 mEq 20 meq PO BID #60 tabs 02/01/23 02/02/23 Rx tablet,extended release(part/cryst) Patient History Medical History GI bleed Dyspnea on exertion Pleural effusion due to CHF (congestive heart failure) Acute on chronic heart failure with preserved ejection fraction (HFpEF) Acute combined systolic and diastolic CHF, NYHA class 3 Acute on chronic diastolic (congestive) heart failure Nausea & vomiting Elevated troponin Chronic diastolic heart failure Cardiac amyloidosis Multiple myeloma Surgical History History of colonoscopy History of tubal ligation Family History Father , 50s Stroke Mother , 90 Coronary heart disease Social History Smoking Status: Former smoker Second Hand Exposure: No; Do You Dip or Chew Tobacco: No; Tobacco Cessation Education Requested by Patient: No Hx Alcohol Use: No Hx Substance Use: No Preferred Language: Slovak 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: Effective Train Control Electronic Technician Required: No Beliefs That Will Affect Care: None marital status: Current Living Situation: Spouse Current Living Situation Comment: with Feels Safe at Home: Yes Safety Concerns: Feels Safe At This Time Assistive Devices: Walker Review of Systems Review of Systems: All systems reviewed & are unremarkable except as noted in HPI & below Physical Exam Constitutional: + ill appearing, + thin, + frail appeari ng and + in distress Eyes: PERRL, conjunctivae normal, anicteric sclerae Neck: trachea midline, no thyromegaly Respiratory: normal respiratory effort; no respiratory distress Cardiovascular: Rate/Rhythm: regular rate Gastrointestinal (Abdomen): Inspection/Auscultation: abdomen normal to inspection and + abdomen distended (Mild) Percussion/Palpation: + abdomen tender (Mild upper abdominal tenderness) and abdomen soft; no guarding and abdomen not rigid Skin: no rashes, warm and dry Psychiatric: A+Ox3, euthymic affect Results & Data Vital Signs (Past 12 Hours) Vital Signs Temp Pulse Pulse Resp BP BP Pulse Ox 02/02/23 18:45 60 22 98 02/02/23 18:45 94/50 L 02/02/23 18:40 96/50 L 02/02/23 18:40 60 19 98 02/02/23 18:35 95/51 L 02/02/23 18:35 61 23 99 02/02/23 18:31 02/02/23 18:30 60 25 H 97 02/02/23 18:30 89/46 L 02/02/23 18:25 92/49 L 02/02/23 18:25 60 15 97 02/02/23 18:20 60 22 98 02/02/23 18:20 93/51 L 02/02/23 18:20 36.8 C 60 21 92/49 L 98 02/02/23 18:19 36.6 C 23 93/51 L 98 02/02/23 18:15 60 22 98 02/02/23 18:15 94/55 L 02/02/23 18:10 60 19 97 02/02/23 18:10 98/55 L 02/02/23 18:10 60 20 97/53 L 97 02/02/23 18:05 60 18 96 02/02/23 18:02 60 02/02/23 18:01 61 21 97/53 L 95 02/02/23 18:00 69 15 111/64 94 02/02/23 17:50 36.6 C 74 16 110/60 95 02/02/23 16:52 36.7 C 60 18 110/60 97 02/02/23 16:50 61 23 110/60 97 02/02/23 16:45 60 19 108/65 98 02/02/23 16:41 61 20 108/63 96 02/02/23 16:35 60 20 118/63 96 02/02/23 16:30 67 19 98/60 L 94 02/02/23 16:28 18 125/73 96 02/02/23 16:25 61 18 125/73 95 02/02/23 16:24 61 18 125/73 02/02/23 16:21 63 20 130/68 98 02/02/23 16:19 69 18 89/55 L 98 02/02/23 16:16 80 19 89/55 L 100 02/02/23 16:07 36.8 C 62 18 120/63 97 02/02/23 16:06 62 22 120/63 94 02/02/23 16:02 97 02/02/23 16:00 64 19 101/44 L 99 02/02/23 15:50 62 23 98/48 L 94 02/02/23 15:44 65 18 91/47 L 96 02/02/23 15:32 64 20 108/52 L 96 02/02/23 15:31 69 02/02/23 14:55 36.5 C 68 18 118/73 96 O2 Del Method O2 Flow Rate 02/02/23 18:45 02/02/23 18:45 02/02/23 18:40 02/02/23 18:40 02/02/23 18:35 02/02/23 18:35 02/02/23 18:31 Oxymask 6 02/02/23 18:30 02/02/23 18:30 02/02/23 18:25 02/02/23 18:25 02/02/23 18:20 02/02/23 18:20 02/02/23 18:20 Oxymask 4 02/02/23 18:19 Oxymask 6 02/02/23 18:15 02/02/23 18:15 02/02/23 18:10 02/02/23 18:10 02/02/23 18:10 Oxymask 4 02/02/23 18:05 02/02/23 18:02 02/02/23 18:01 02/02/23 18:00 Oxymask 4 02/02/23 17:50 Oxymask 6 02/02/23 16:52 02/02/23 16:50 Nasal Cannula 2 02/02/23 16:45 Nasal Cannula 2 02/02/23 16:41 Nasal Cannula 2 02/02/23 16:35 Nasal Cannula 2 02/02/23 16:30 Nasal Cannula 2 02/02/23 16:28 Nasal Cannula 2 02/02/23 16:25 Nasal Cannula 2 02/02/23 16:24 02/02/23 16:21 Nasal Cannula 2 02/02/23 16:19 2 02/02/23 16:16 Nasal Cannula 2 02/02/23 16:07 02/02/23 16:06 Nasal Cannula 2 02/02/23 16:02 Nasal Cannula 2 02/02/23 16:00 Nasal Cannula 2 02/02/23 15:50 Nasal Cannula 2 02/02/23 15:44 Nasal Cannula 2 02/02/23 15:32 Nasal Cannula 2 02/02/23 15:31 02/02/23 14:55 Room Air Laboratory Results 02/02/23 02/02/23 02/02/23 Range/Units 19:12 19:09 18:15 WBC (4.8-10.8) K/ul RBC (4.20-5.40) M/uL Hgb 8.9 L (12.0-16.0) g/dl POC Hgb (12.0-16.0) g/dl Hct (37.0-47.0) % POC Hct (37-47) % MCV (80.0-100.0) fL MCH (25.0-34.0) pg MCHC (32.0-36.0) g/dL RDW Std Deviation (36.4-46.3) fL RDW Coeff of Nasir (11.5-14.5) % Plt Count (130-400) K/uL MPV (9.4-12.4) fL Immature Gran % (Auto) % Neut % (Auto) % Lymph % (Auto) % Schleicher % (Auto) % Eos % (Auto) % Baso % (Auto) % Neut # (Auto) (1.40-6.50) K/uL Lymph # (Auto) (1.20-3.40) K/uL Schleicher # (Auto) (0.11-0.59) K/uL Eos # (Auto) (0.00-0.50) K/uL Baso # (Auto) (0.00-0.20) K/uL Immature Gran # (Auto) (0.01-0.20) K/uL PT (9.0-12.0) Seconds INR (0.9-1.1) APTT (21.0-31.0) Seconds PTT Ratio Fibrinogen (184-400) mg/dl D-Dimer (0-500) ug/L FEU Heparin Anti-Xa, LM Wt (< 0.10) IU/ML POC Sodium (135-144) mmol/L Sodium (136-145) mmol/L POC Potassium (3.3-5.0) mmol/L Potassium (3.5-5.1) mmol/L POC Chloride (101-112) mmol/L Chloride (98-107) mmol/L Carbon Dioxide (21-32) mmol/L POC Total CO2 (24-31) mmol/L Anion Gap (3-11) POC Anion Gap (16-25) mmol/L POC BUN (7-18) mg/dl BUN (6-23) mg/dl Creatinine (0.6-1.2) mg/dl POC Creatinine (0.6-1.3) mg/dl Est Cr Clr Drug Dosing ml/min Est GFR ( Amer) ml/min Est GFR (Non-Af Amer) ml/min BUN/Creatinine Ratio (10-20) Glucose (70-99(Fasting)) mg/dl POC Glucose 121 H 128 H (70-99) mg/dl POC Glucose (other) (70-99) mg/dl Calcium (8.6-10.3) mg/dl POC Ioniz Calcium Pebbles (1.12-1.32) mmol/l Ionized Calcium (1.12-1.32) mmol/L Total Bilirubin (0.2-1.0) mg/dl AST (13-39) U/L ALT (7-52) U/L Alkaline Phosphatase (34-104) U/L Total Protein (6.0-8.3) gm/dl Albumin (3.4-5.0) gm/dl Globulin (2.5-4.0) gm/dl Albumin/Globulin Ratio (0.9-2) Lipase (11-82) U/L Nasal Screen MRSA (PCR) (Negative) Blood Type Antibody Screen Crossmatch 02/02/23 02/02/23 02/02/23 Range/Units 18:07 16:16 16:09 WBC (4.8-10.8) K/ul RBC (4.20-5.40) M/uL Hgb (12.0-16.0) g/dl POC Hgb 10.2 L (12.0-16.0) g/dl Hct (37.0-47.0) % POC Hct 30 L (37-47) % MCV (80.0-100.0) fL MCH (25.0-34.0) pg MCHC (32.0-36.0) g/dL RDW Std Deviation (36.4-46.3) fL RDW Coeff of Nasir (11.5-14.5) % Plt Count (130-400) K/uL MPV (9.4-12.4) fL Immature Gran % (Auto) % Neut % (Auto) % Lymph % (Auto) % Schleicher % (Auto) % Eos % (Auto) % Baso % (Auto) % Neut # (Auto) (1.40-6.50) K/uL Lymph # (Auto) (1.20-3.40) K/uL Schleicher # (Auto) (0.11-0.59) K/uL Eos # (Auto) (0.00-0.50) K/uL Baso # (Auto) (0.00-0.20) K/uL Immature Gran # (Auto) (0.01-0.20) K/uL PT (9.0-12.0) Seconds INR (0.9-1.1) APTT (21.0-31.0) Seconds PTT Ratio Fibrinogen (184-400) mg/dl D-Dimer (0-500) ug/L FEU Heparin Anti-Xa, LM Wt (< 0.10) IU/ML POC Sodium 142 (135-144) mmol/L Sodium (136-145) mmol/L POC Potassium 4.2 (3.3-5.0) mmol/L Potassium (3.5-5.1) mmol/L POC Chloride 103 (101-112) mmol/L Chloride (98-107) mmol/L Carbon Dioxide (21-32) mmol/L POC Total CO2 25 (24-31) mmol/L Anion Gap (3-11) POC Anion Gap 20.0 (16-25) mmol/L POC BUN 23 H (7-18) mg/dl BUN (6-23) mg/dl Creatinine (0.6-1.2) mg/dl POC Creatinine 0.8 (0.6-1.3) mg/dl Est Cr Clr Drug Dosing ml/min Est GFR ( Amer) ml/min Est GFR (Non-Af Amer) ml/min BUN/Creatinine Ratio (10-20) Glucose (70-99(Fasting)) mg/dl POC Glucose (70-99) mg/dl POC Glucose (other) 129 H (70-99) mg/dl Calcium (8.6-10.3) mg/dl POC Ioniz Calcium Pebbles 1.14 (1.12-1.32) mmol/l Ionized Calcium 1.07 L (1.12-1.32) mmol/L Total Bilirubin (0.2-1.0) mg/dl AST (13-39) U/L ALT (7-52) U/L Alkaline Phosphatase (34-104) U/L Total Protein (6.0-8.3) gm/dl Albumin (3.4-5.0) gm/dl Globulin (2.5-4.0) gm/dl Albumin/Globulin Ratio (0.9-2) Lipase (11-82) U/L Nasal Screen MRSA (PCR) Negative (Negative) Blood Type Antibody Screen Crossmatch 02/02/23 02/02/23 Range/Units 16:07 15:47 WBC 12.28 H (4.8-10.8) K/ul RBC 3.95 L (4.20-5.40) M/uL Hgb 11.3 L (12.0-16.0) g/dl POC Hgb (12.0-16.0) g/dl Hct 36.5 L (37.0-47.0) % POC Hct (37-47) % MCV 92.4 (80.0-100.0) fL MCH 28.6 (25.0-34.0) pg MCHC 31.0 L (32.0-36.0) g/dL RDW Std Deviation 54.5 H (36.4-46.3) fL RDW Coeff of Nasir 16.4 H (11.5-14.5) % Plt Count 243 (130-400) K/uL MPV 12.0 (9.4-12.4) fL Immature Gran % (Auto) 0.4 % Neut % (Auto) 76.2 % Lymph % (Auto) 14.0 % Schleicher % (Auto) 7.0 % Eos % (Auto) 2.0 % Baso % (Auto) 0.4 % Neut # (Auto) 9.36 H (1.40-6.50) K/uL Lymph # (Auto) 1.72 (1.20-3.40) K/uL Schleicher # (Auto) 0.86 H (0.11-0.59) K/uL Eos # (Auto) 0.24 (0.00-0.50) K/uL Baso # (Auto) 0.05 (0.00-0.20) K/uL Immature Gran # (Auto) 0.05 (0.01-0.20) K/uL PT 13.1 H (9.0-12.0) Seconds INR 1.2 H (0.9-1.1) APTT 27.1 (21.0-31.0) Seconds PTT Ratio 1.0 Fibrinogen 371 (184-400) mg/dl D-Dimer 4350 H* (0-500) ug/L FEU Heparin Anti-Xa, LM Wt > 1.50 (< 0.10) IU/ML POC Sodium (135-144) mmol/L Sodium 136 (136-145) mmol/L POC Potassium (3.3-5.0) mmol/L Potassium 4.2 (3.5-5.1) mmol/L POC Chloride (101-112) mmol/L Chloride 103 (98-107) mmol/L Carbon Dioxide 23 (21-32) mmol/L POC Total CO2 (24-31) mmol/L Anion Gap 10 (3-11) POC Anion Gap (16-25) mmol/L POC BUN (7-18) mg/dl BUN 23 (6-23) mg/dl Creatinine 0.76 (0.6-1.2) mg/dl POC Creatinine (0.6-1.3) mg/dl Est Cr Clr Drug Dosing 54.6 ml/min Est GFR ( Amer) 88.3 ml/min Est GFR (Non-Af Amer) 76.2 ml/min BUN/Creatinine Ratio 30.3 H (10-20) Glucose 132 H (70-99(Fasting)) mg/dl POC Glucose (70-99) mg/dl POC Glucose (other) (70-99) mg/dl Calcium 8.8 (8.6-10.3) mg/dl POC Ioniz Calcium Pebbles (1.12-1.32) mmol/l Ionized Calcium (1.12-1.32) mmol/L Total Bilirubin 0.9 (0.2-1.0) mg/dl AST 27 (13-39) U/L ALT 14 (7-52) U/L Alkaline Phosphatase 81 (34-104) U/L Total Protein 8.3 (6.0-8.3) gm/dl Albumin 3.4 (3.4-5.0) gm/dl Globulin 4.9 H (2.5-4.0) gm/dl Albumin/Globulin Ratio 0.7 L (0.9-2) Lipase 35 (11-82) U/L Nasal Screen MRSA (PCR) (Negative) Blood Type O Positive Antibody Screen NEGATIVE Crossmatch See Detail Diagnostic Findings CT abd pelvis IV con only CLINICAL HISTORY: gi bleed TECHNIQUE: Helical axial images of the abdomen and pelvis were obtained and displayed. Automated dose lowering techniques and/or adjustment according to patient size were utilized for this exam. This exam was performed with intravenous contrast. CT DOSE: 655.67 mGy.cm COMPARISON: Comparison is made to CT abdomen pelvis 01/29/2023 FINDINGS: Lower chest: Bilateral moderate pleural effusions are seen, left greater than right, with underlying atelectasis. Liver: Unremarkable. No focal lesions are seen. Gallbladder and biliary tree: The gallbladder wall measures 3 mm in diameter and there is a focus of air in the gallbladder. Biliary stent is seen. Pancreas: Unremarkable, no focal lesions. Spleen: Unremarkable. Adrenals: Unremarkable. Kidneys and ureters: Unremarkable. Bladder: Huerta catheter is seen. Reproductive organs: There is suggestion of a fibroid. Bowel: Diverticulosis is seen without evidence of diverticulitis. Fluid contents are seen in the colon. The appendix is unremarkable. No evidence of colitis. There is a moderate hiatal hernia. There is a soft tissue density mass in the stomach measuring 63 x 42 mm, new from prior exam. Lymph nodes Retroperitoneal: Unremarkable. Pelvic: Unremarkable. Mesenteric: Unremarkable. Peritoneum: Small ascites is seen. No evidence of pneumoperitoneum. Vessels: Atherosclerotic calcifications are seen. Abdominal wall: Unremarkable. Bones: Degenerative changes in the visualized spine. IMPRESSION: 1. There is a soft tissue mass in the stomach. Given the rapidity of onset, this may represent coagulated blood from a bleeding gastric or esophageal ulcer in this patient with GI bleed. A moderate hiatal hernia is seen. No evidence of pneumoperitoneum or other evidence of perforation. 2. Common bile duct stent with pneumobilia. 3. Moderate bilateral pleural effusions with underlying atelectasis. ACT 112: Negative or not required by law.
--- NOTE | 2023-02-02 20:50 | Communication Note ---
Date of Service: February 02, 2023 Admitting physician requested for IV vitamin K administration to reverse some of anticoag effect of Eliquis following Kcentra administration at the ER as per [facility] load mixer (Dr. Villa) recommendations prior to transfer.
--- NOTE | 2023-02-02 20:58 | Critical Care Consultation ---
Date of Consultation February 02, 2023 Assessment & Plan (1) Acute GI bleeding: Underwent EGD which revealed large cratered ulcer in the gastric antrum which was significantly increased in size from compared to her last EGD along with stigmata of recent bleeding. There was concern for perforation but CT findings do not demonstrate current perforation. She was on aspirin and Eliquis for atrial fibrillation which is being held. She received prothrombin complex and vitamin K along with FFP and RBCs in the ED. General surgery consulted and no indication for emergent surgical intervention at this time, although he did recommend transfer to tertiary center considering impending perforation with complex history/morbidities. Patient has been accepted to [facility] and is currently undergoing medical management in the ICU pending transfer. - Continue PPI - Trend H&H. Repeat coags - Hold anticoagulants - Transfuse as indicated. Careful with volume resuscitation minding diastolic heart failure (2) Acute hypotension: Patient initially hypotensive. Improved with initial massive transfusion. Patient's blood pressure is currently soft with systolics in the 90s, however she is on Midodrine and this appears to be within her normal range. Midodrine on hold due to strict NPO. May start on phenylephrine if needed. Monitor (3) Acute on chronic heart failure with preserved ejection fraction (HFpEF): History of diastolic heart failure with cardiac amyloidosis with recent admission for CHF exacerbation. Currently holding Lasix due to GI bleed with hypotension requiring transfusion. She appears euvolemic and heart failure stable as of now. We will monitor closely (4) Tachy-walker syndrome: Status post pacemaker (5) Paroxysmal atrial fibrillation: Currently paced rhythm at 60 bpm on monitor. Eliquis on hold due to GI bleed. (6) Hypothyroid: Synthroid on hold History of Present Illness Attending Physician: Héctor Castillo MD History of Present Illness Patient 77-year-old woman with past medical history significant for Multiple myeloma (s/p chemo), diastolic heart failure, cardiac amyloidosis, tachybradycardia syndrome (s/p pacer), Atrial fibrillation, PUD, cholangitis (s/p biliary stent) who presented to the emergency department earlier today with complaints of weakness and hematemesis. Patient was rapidly transfused in the emergency department and taken for EGD which revealed large cratered ulcer in the gastric antrum which was significantly increased in size from her previous EGD, along with stigmata. It was noted that she had concern for perforation. CT abdomen and pelvis was negative for free air or concerns for perforation and her abdominal exam is benign. Given high suspicion for impending perforation along with extensive comorbidities, transfer to tertiary center as recommended by surgery team. Patient has currently been accepted to [facility] and is ongoing further medical management here in the ICU pending transfer. On arrival to the ICU the patient is alert and oriented and does not appear to be in any acute distress. She reports multiple episodes of hematemesis throughout the day along with generalized weakness and 1 episode of a large amount of melena. She denies any syncopal episodes, dizziness, headaches, shortness of breath, cough, chest pain, palpitations. Patient does report burning and burping along with abdominal cramping. She reports swelling in her feet has significantly improved since her last admission for CHF exacerbation. Allergies Allergy/AdvReac Type Severity Reaction Status Date / Time iron Allergy Rash Verified 01/27/23 15:23 Home Medications Medication Instructions Recorded Confirmed Type cyanocobalamin (vitamin B-12) 1,000 mcg PO QAM 05/14/21 02/02/23 History 1,000 mcg tablet (Vitamin B-12) sucralfate 100 mg/mL oral 10 ml PO QID PRN Gi Upset 11/22/22 02/02/23 History suspension aspirin 81 mg tablet,delayed 81 mg PO QAM 01/07/23 02/02/23 History release amiodarone 200 mg tablet 200 mg PO BID #60 tabs 01/15/23 02/02/23 Rx pantoprazole 40 mg tablet,delayed 40 mg PO BID #60 tabs 01/15/23 02/02/23 Rx release levothyroxine 50 mcg tablet 50 mcg PO QAM 01/27/23 02/02/23 History midodrine 2.5 mg tablet 2.5 mg PO TIDM 01/27/23 02/02/23 History apixaban 5 mg tablet (Eliquis) 5 mg PO BID #60 tabs 01/28/23 02/02/23 Rx amoxicillin 875 mg-potassium 1 tab PO BIDM #10 tabs 02/01/23 02/02/23 Rx clavulanate 125 mg tablet furosemide 40 mg tablet 80 mg (2 x 40 mg) PO BID #60 tabs 02/01/23 02/02/23 Rx potassium chloride 20 mEq 20 meq PO BID #60 tabs 02/01/23 02/02/23 Rx tablet,extended release(part/cryst) Patient History Medical History GI bleed Dyspnea on exertion Pleural effusion due to CHF (congestive heart failure) Acute on chronic heart failure with preserved ejection fraction (HFpEF) Acute combined systolic and diastolic CHF, NYHA class 3 Acute on chronic diastolic (congestive) heart failure Nausea & vomiting Elevated troponin Chronic diastolic heart failure Cardiac amyloidosis Multiple myeloma Surgical History History of colonoscopy History of tubal ligation Family History Father , 50s Stroke Mother , 90 Coronary heart disease Social History Smoking Status: Former smoker Second Hand Exposure: No; Do You Dip or Chew Tobacco: No; Tobacco Cessation Education Requested by Patient: No Hx Alcohol Use: No Hx Substance Use: No Preferred Language: Croatian 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: Effective Landscape Gardener Required: No Beliefs That Will Affect Care: None marital status: Current Living Situation: Spouse Current Living Situation Comment: with Feels Safe at Home: Yes Safety Concerns: Feels Safe At This Time Assistive Devices: Walker Review of Systems Review of Systems: All systems reviewed & are unremarkable except as noted in HPI & below Physical Exam Constitutional: + frail appearing; no acute distress Eyes: PERRL, conjunctivae normal, anicteric sclerae ENMT: external ear and nose normal, oropharynx normal Neck: trachea midline, no thyromegaly Respiratory: normal respiratory effort, lungs clear to auscultation Cardiovascular: Rate/Rhythm: regular rate and regular rhythm Heart Sounds: + murmur Extremities: normal capillary refill; no edema Gastrointestinal (Abdomen): normal bowel sounds, soft, nontender, no hepatosplenomegaly Skin: no rashes, warm and dry Neurologic: PERRL, EOMI, accommodation nl, no face palsy, no dysarthria Psychiatric: A+Ox3, euthymic affect Results & Data Results & Data Vital Signs (Past 12 Hours) Vital Signs Temp Pulse Pulse Resp BP BP Pulse Ox 02/02/23 20:41 36.7 C 02/02/23 18:45 60 22 98 02/02/23 18:45 94/50 L 02/02/23 18:40 96/50 L 02/02/23 18:40 60 19 98 02/02/23 18:35 95/51 L 02/02/23 18:35 61 23 99 02/02/23 18:31 02/02/23 18:30 60 25 H 97 02/02/23 18:30 89/46 L 02/02/23 18:25 92/49 L 02/02/23 18:25 60 15 97 02/02/23 18:20 60 22 98 02/02/23 18:20 93/51 L 02/02/23 18:20 36.8 C 60 21 92/49 L 98 02/02/23 18:19 36.6 C 23 93/51 L 98 02/02/23 18:15 60 22 98 02/02/23 18:15 94/55 L 02/02/23 18:10 60 19 97 02/02/23 18:10 98/55 L 02/02/23 18:10 60 20 97/53 L 97 02/02/23 18:05 60 18 96 02/02/23 18:02 60 02/02/23 18:01 61 21 97/53 L 95 02/02/23 18:00 69 15 111/64 94 02/02/23 17:50 36.6 C 74 16 110/60 95 02/02/23 16:52 36.7 C 60 18 110/60 97 02/02/23 16:50 61 23 110/60 97 02/02/23 16:45 60 19 108/65 98 02/02/23 16:41 61 20 108/63 96 02/02/23 16:35 60 20 118/63 96 02/02/23 16:30 67 19 98/60 L 94 02/02/23 16:28 18 125/73 96 02/02/23 16:25 61 18 125/73 95 02/02/23 16:24 61 18 125/73 02/02/23 16:21 63 20 130/68 98 02/02/23 16:19 69 18 89/55 L 98 02/02/23 16:16 80 19 89/55 L 100 02/02/23 16:07 36.8 C 62 18 120/63 97 02/02/23 16:06 62 22 120/63 94 02/02/23 16:02 97 02/02/23 16:00 64 19 101/44 L 99 02/02/23 15:50 62 23 98/48 L 94 02/02/23 15:44 65 18 91/47 L 96 02/02/23 15:32 64 20 108/52 L 96 02/02/23 15:31 69 02/02/23 14:55 36.5 C 68 18 118/73 96 O2 Del Method O2 Flow Rate 02/02/23 20:41 02/02/23 18:45 02/02/23 18:45 02/02/23 18:40 02/02/23 18:40 02/02/23 18:35 02/02/23 18:35 02/02/23 18:31 Oxymask 6 02/02/23 18:30 02/02/23 18:30 02/02/23 18:25 02/02/23 18:25 02/02/23 18:20 02/02/23 18:20 02/02/23 18:20 Oxymask 4 02/02/23 18:19 Oxymask 6 02/02/23 18:15 02/02/23 18:15 02/02/23 18:10 02/02/23 18:10 02/02/23 18:10 Oxymask 4 02/02/23 18:05 02/02/23 18:02 02/02/23 18:01 02/02/23 18:00 Oxymask 4 02/02/23 17:50 Oxymask 6 02/02/23 16:52 02/02/23 16:50 Nasal Cannula 2 02/02/23 16:45 Nasal Cannula 2 02/02/23 16:41 Nasal Cannula 2 02/02/23 16:35 Nasal Cannula 2 02/02/23 16:30 Nasal Cannula 2 02/02/23 16:28 Nasal Cannula 2 02/02/23 16:25 Nasal Cannula 2 02/02/23 16:24 02/02/23 16:21 Nasal Cannula 2 02/02/23 16:19 2 02/02/23 16:16 Nasal Cannula 2 02/02/23 16:07 02/02/23 16:06 Nasal Cannula 2 02/02/23 16:02 Nasal Cannula 2 02/02/23 16:00 Nasal Cannula 2 02/02/23 15:50 Nasal Cannula 2 02/02/23 15:44 Nasal Cannula 2 02/02/23 15:32 Nasal Cannula 2 02/02/23 15:31 02/02/23 14:55 Room Air Coding Level of Care Code 87935 CRITICAL CARE 1ST 30-74M Diagnoses Acute GI bleeding K92.2 Acute hypotension I95.9 Acute on chronic heart failure with preserved ejection fraction (HFpEF) I50.33 Tachy-walker syndrome I49.5 Paroxysmal atrial fibrillation I48.0 Hypothyroid E03.9 Time Spent (min) 65
[2023-02-02] MEDS ORDERED: AMIODARONE 200 MG TAB PO SCH (21:00)
[2023-02-02] MEDS ORDERED: PHYTONADIONE 10 MG in DEXTROSE 5% 50 ML IV ONE (21:00)
--- NOTE | 2023-02-02 21:34 | Discharge Summary ---
Discharge Summary Date of Service February 02, 2023 Notes For Next Care Provider Transfer to [facility] due to large cratered gastric antral ulcer concern for impending perforation. S/P massive transfusion protocol initiated in ED. Received K centra, FFP and 2 units PRBC. EGD:revealed large cratered ulcer in the gastric antrum which was significantly increased in size from compared to her last EGD along with stigmata of recent bleeding. CT scan w/o evidence of perforation. Hgb @ 19:09 was 8.9. Receiving IV ceftriaxone for klebsiella urine culture done on 01/27/23. Medication Changes From Visit please refer to discharge instructions for current inpatient medication list Admission HPI Per Admitting Provider This is a 77-year-old female who is medically complex with significant past medical history of cardiac amyloidosis, TBS status post PPM on 01/13/2023, chronic HFpEF, PAF, history multiple myeloma status postchemotherapy who presents to ED secondary to hematemesis. Of significance patient has had multiple recent hospitalizations. Most recently she was hospitalized on 01/27 and discharged yesterday on 02/01/30 secondary to acute on chronic heart failure with preserved ejection fraction. On admission she was noted to have pleural effusions on x-ray. She had recently been off Lasix after being discharged from the hospital after undergoing PPM. Pulmonology was initially consulted to evaluate for possible thoracentesis; however, due to her lack of hypoxia or shortness of breath this was deferred. She was started on IV diuretics with slight improvement. She was seen and evaluated by cardiology and her pacemaker was interrogated which revealed stable thresholds. They continued her on amiodarone twice daily. Prior to discharge her Eliquis was started after initially being diagnosed with new onset A-fib in early December. Her Eliquis initially was deferred due to GI evaluation. Previous hospitalization she underwent biliary stent placement for choledocholithiasis and is planning to go axial stenting at an outside hospital due to inability to undergo cholecystectomy. During that ERCP she was noted to have a nonbleeding gastric ulcer. She previously did have a bleeding gastric ulcer in September 2021 requiring clipping. Due to no further bleeding she was started on Eliquis on 01/30/2023 and her hemoglobin remained stable. She was discharged in good spirits and otherwise felt well. She was fatigued and had decreased appetite. Her went to buddhism this morning whenever he came home he noticed that she was spi tting up blood into a container. She noted that this just started. She called into PCPs office who referred her to ED. Once arriving to ED patient had significant episode of hematemesis as well as bright red blood per rectum. Per ED provider she filled up a whole emesis basin full of bright red blood. She then became hypotensive and had episode of syncope. Massive transfusion protocol was initiated and she received Kcentra as well as TXA. She was also typed and crossed for 4 units. Granite Polisher Machine was consulted by ED provider who evaluated patient at bedside and planning to undergo emergent EGD prior to admission to ICU. Patient's is at bedside who also helps elicit history. Admission Exam Per Admitting Provider On Exam: GENERAL: Alert and oriented x3. NAD, on 2L NC O2, appears weak/tired HEENT: + pallor, no icterus. Pupils equal, round and reactive to light. Oral mucosa moist. NECK: No JVD, no neck masses. HEART: S1 and S2 heard. Regular rate and rhythm. No murmur, no gallop. RESPIRATORY SYSTEM: Normal AP diameter. No accessory muscle use. No wheezing, no crackles. ABDOMEN: Soft, bowel sounds present, nontender, no distention. CENTRAL NERVOUS SYSTEM: No facial droop. Speech is clear. Obeys simple commands. Moves extremities. EXTREMITIES: No edema, no erythema seen. Principal Dx & Hospital Course #1 = Principal Diagnosis (1) GI bleed: Plan This is a 77-year-old female who is medically complex with significant past medical history of cardiac amyloidosis, TBS status post PPM on 01/13/2023, chronic HFpEF, PAF, history multiple myeloma status postchemotherapy who presents to ED secondary to hematemesis. Patient admitted 01/27-02/01/ acute/chronic HFpEF, appropriately diuresed at that time. Prior to D/C started on Eliquis on 01/30 due to Afib that was dx previously in December for stroke prevention. At that time was s/p ERCP which revealed a nonbleeding gastric ulcer and recommendation was to not begin anticoagulation for 5 days. Prior to admission patient developed hematemesis and when in hospital it recurred along with significant bright red blood per rectum. Patient became hypotensive. Massive transfusion protocol was initiated. She received Kcentra and TXA in ED. Gastroenterology at bedside who is taking patient for emergent EGD prior to admission to ICU Acute GI bleed Patient has prior history of gastric ulcer requiring Endo Clip in September 2021, and recent EGD in December 2022 revealed nonbleeding gastric ulcer Prior to hospitalization patient on aspirin and Eliquis, these will be held PPI bolus/gtt initiated continue massive transfusion protocol, received 2 units thus far of PRBC and FFP. received K centra in ED. Pt underwent for emergent EGD by Dr. Casas:revealed large cratered ulcer in the gastric antrum which was significantly increased in size from compared to her last EGD along with stigmata of recent bleeding Currently admitted to ICU continue NPO, PPI bolus/gtt consult Dr. Trejo currency counter Addendum @1900 EGD reviewed and discussed with pt at bedside. Discussed with general surgery who will come evaluate the patient. CT a/p w/ contrast ordered to eval for perforation. CT a/p IMPRESSION:1. There is a soft tissue mass in the stomach. Given the rapidity of onset, this may represent coagulated blood from a bleeding gastric or esophageal ulcer in this patient with GI bleed. A moderate hiatal hernia is seen. No evidence of pneumoperitoneum or other evidence of perforation.2. Commo n bile duct stent with pneumobilia.3. Moderate bilateral pleural effusions with underlying atelectasis. Repeat h/h after 2 units and 2 unit FFP 8.9. Case discussed with General surgery who recommends transfer to [facility]. Dr. Castillo initiated transfer with [facility] [place] [facility]. Pt will be transferred via life flight. Chronic Diastolic CHF Amyloidosis currently euvolemic but will need to monitor closely given transfusion recent hospitalization for such last echo EF 60-65%, Grade 3 DD, severe TR on 10/2022 lasix currently on hold given severe volume depletion Klebsiella UTI, POA UA from 01/27, started on Augmentin will place on IV rocephin for now Tachybrady syndrome s/p pacemaker 01/13 Paroxysmal atrial tachycardia: Status post PPM dual-chamber placed on 01/13 at [facility] Complicated with pneumothorax post procedure;no chest tube Interrogation of pacemaker showed stable thresholds ON Amiodarone 200mg BID, on hold due to strict NPO HOLD ASA, Eliquis - will need discussion with GI/cards prior to resumption of either Hypothyroid on Synthroid 50mcg as outpatient, resume when able Chronic Hypotension On Midodrine 2.5 mg TID as outpatient, resume when able blood pressures at baseline, 90-low 100s Hx of Multiple myeloma s/p chemo follows oncology locally Disposition: PCP: Dr. Swenson CODE STATUS: Full code Admit to ICU post EGD Pt was seen and examined in collaboration with Dr. Castillo, please see addendum Discharge Exam please refer to Dr. Castillo addendum for physical exam findings. Updated Medication List Medication Instructions Recorded Confirmed Type cyanocobalamin (vitamin B-12) 1,000 mcg PO QAM 05/14/21 02/02/23 History 1,000 mcg tablet (Vitamin B-12) sucralfate 100 mg/mL oral 10 ml PO QID PRN Gi Upset 11/22/22 02/02/23 History suspension aspirin 81 mg tablet,delayed 81 mg PO QAM 01/07/23 02/02/23 History release amiodarone 200 mg tablet 200 mg PO BID #60 tabs 01/15/23 02/02/23 Rx pantoprazole 40 mg tablet,delayed 40 mg PO BID #60 tabs 01/15/23 02/02/23 Rx release levothyroxine 50 mcg tablet 50 mcg PO QAM 01/27/23 02/02/23 History midodrine 2.5 mg tablet 2.5 mg PO TIDM 01/27/23 02/02/23 History apixaban 5 mg tablet (Eliquis) 5 mg PO BID #60 tabs 01/28/23 02/02/23 Rx amoxicillin 875 mg-potassium 1 tab PO BIDM #10 tabs 02/01/23 02/02/23 Rx clavulanate 125 mg tablet furosemide 40 mg tablet 80 mg (2 x 40 mg) PO BID #60 tabs 02/01/23 02/02/23 Rx potassium chloride 20 mEq 20 meq PO BID #60 tabs 02/01/23 02/02/23 Rx tablet,extended release(part/cryst) Hospital Stay Data Consultations 02/02/23 16:16 Consult Rebar Fabricator Routine 02/02/23 16:19 ED Decision to Admit Stat 02/02/23 16:39 ED Decision to Admit Stat 02/02/23 17:08 Consult Gastroenterology Routine 02/02/23 18:20 Consult General Surgery Routine 02/02/23 20:53 Burn CD for patient Stat Procedures Performed Operation Date: 02/02/23 16:45 Actual Procedures p Esophagogastroduodenoscopy(Not Applicable) - Janae Casas DO Diagnostic Imagining Performed 02/02/23 15:37 CT Abd and Pelvis [CT abd pelvis IV con only] Stat Pending Results Patient Have Any Pending Studies at Discharge: No Discharge Instructions Given to Patient (Per Discharging Provider) Prior to arrival home medications are continued as it is in the discharge med reconciliation and Current Inpatient Medications are copy and pasted below Amiodarone HCl (Amiodarone 200 Mg Tab) 200 mg PO BID RYANN Stop: 03/04/23 20:59 Atropine Sulfate (Atropine Sulfate 0.1 Mg/Ml 10ml Syr) 0.5 mg IV Q1M PRN PRN Reason: PACU Use-HR<40 &/or Bradycardi Stop: 02/03/23 02:10 Ephedrine Sulfate (Ephedrine Sulfate 50 Mg/Ml Amp) 5 mg IV Q5M PRN PRN Reason: PACU Use Only-SBP<90 mmHg Stop: 02/03/23 02:10 Fentanyl Citrate (Fentanyl Citrate Pf 100 Mcg/2 Ml Vial) 25 mcg IV Q5M PRN PRN Reason: PACU Use Only-Pain Stop: 02/03/23 02:10 Flumazenil (Flumazenil 0.1 Mg/1 Ml 10 Ml Vial) 0.2 mg IV Q2M PRN PRN Reason: PACU Use Only-Benzo Reversal Stop: 02/03/23 02:10 Pantoprazole Sodium 40 mg/ (Dextrose) 100 mls @ 20 mls/hr IV Q5H RYANN Stop: 03/04/23 15:59 Last Admin: 02/02/23 15:59 Dose: 8 mg/hr, 20 mls/hr Ceftriaxone Sodium 2,000 mg/ (Dextrose) 50 mls @ 100 mls/hr IV Q24H [facility]; Protocol Stop: 02/12/23 18:14 Last Admin: 02/02/23 19:41 Dose: 100 mls/hr Promethazine HCl 12.5 mg/ (Sodium Chloride) 50.5 mls @ 204 mls/hr IV ONCE PRN PRN Reason: PACU Use Only-Nausea/Vomiting Stop: 02/03/23 02:10 Sodium Chloride (Nss) 250 mls @ 15 mls/hr IV .[id number] PRN PRN Reason: For Transfusion Duration Stop: 02/03/23 05:34 Levothyroxine Sodium (Levothyroxine Sodium 50 Mcg Tablet) 50 mcg PO DAILYBB [facility] Stop: 03/05/23 06:29 Miscellaneous (Icu Protocol For Hyperglycemia) 1 each N/A ACHS RYANN Stop: 02/04/23 18:01 Last Admin: 02/02/23 19:41 Dose: 1 each Naloxone HCl (Naloxone Hcl 0.4 Mg/1 Ml Vial/Carp) 0.2 mg IV Q2M PRN PRN Reason: PACU Use Only-Opiate Reversal Stop: 02/03/23 02:10 Ondansetron HCl (Ondansetron Inj 2 Mg/Ml 2 Ml Vial) 4 mg IV ONCE PRN PRN Reason: PACU Use Only-Nausea/Vomiting Stop: 02/03/23 02:10 Saccharomyces Boulardii (Saccharomyces Boulardii 250 Mg Cap) 250 mg PO DAILY RYANN Stop: 03/05/23 08:59 Total Time Total Time Spent Total Time Spent (In Minutes): 60 minutes Supervising Physician Co-Signing Physician Notes 77 yo F w/ PMH of cardiac amyloidosis, Tachybrady Syndrome s/p PPM, Chr HFpEF, PAF, Multiple Myeloma s/p post chemotherapy who was recently discharged after hospitalization for Ac on Chr CHF and pleural effusion presented today due to hematemesis and blood in stool. Admitting Hb of 11.3. Pt was recently started on eliquis for Afib. Also she recently underwent ERCP which showed nonbleeding gastric ulcer. She does have h/o gastric ulcer. Admitting labs reviewed. Admitting imaging pending. Holding asp and eliquis. c/w iv PPI. NPO. BP soft and with massive bleed CLOTHES SHAKER; being admitted to ICU/massive transfusion protocol initiated at ED. GI evaled and scoped; general Sx has been consulted for suspicion of perforation. Clinically no signs of perforation on abd exam, CTAP iv con, no perf. Needing more O2, and BP soft; might need diuresis (given h/o HF) and ? pressor support; defer to ICU team. Gen Sx evaled, still would like to transfer due to concerns of impending perforation. Spoke w/ Gen Sx at [place], recommended reach out to ICU as they don't have anything to offer for current condition of the patient, spoke w/ currency counter who accepted transfer w/ plan to consult Sx if needed; and also ? IR management if bleeding were to worsen. d/w family ( and dtr) at bedside, explained the current status, and gi protective meds she is getting and possible future plan of care including sto pping of blood thinners, continuation of gi protective meds, and possible transfer upon recs from [facility] due to impending perforation. On Exam: GENERAL: Alert and oriented x3. NAD, on 6L NC O2, appears weak/tired HEENT: + pallor, no icterus. Pupils equal, round and reactive to light. Oral mucosa moist. NECK: No JVD, no neck masses. HEART: S1 and S2 heard. Regular rate and rhythm. No murmur, no gallop. RESPIRATORY SYSTEM: Normal AP diameter. No accessory muscle use. No wheezing, no crackles. ABDOMEN: Soft, bowel sounds present, nontender, no distention. CENTRAL NERVOUS SYSTEM: No facial droop. Speech is clear. Obeys simple commands. Moves extremities. EXTREMITIES: No edema, no erythema seen. I have seen and examined the patient and have discussed the case with the provider above. I agree with the assessment and plan as stated.
[2023-02-03] MEDS ORDERED: LEVOTHYROXINE SODIUM 50 MCG TABLET PO SCH (06:30)
[2023-02-03] MEDS ORDERED: SACCHAROMYCES BOULARDII 250 MG CAP PO SCH (09:00)
--- NOTE | 2023-02-03 12:29 | Electrocardiogram Report ---
Test Reason : Blood Pressure : / mmHG Vent. Rate : 064 BPM Atrial Rate : 000 BPM P-R Int : 000 ms QRS Dur : 158 ms QT Int : 562 ms P-R-T Axes : 000 161 002 degrees QTc Int : 579 ms Suspect arm lead reversal, interpretation assumes no reversal Wide QRS rhythm Right bundle branch block Lateral infarct , age undetermined Abnormal ECG When compared with ECG of 27-JAN-2023 13:04, Electronic ventricular pacemaker no longer present Confirmed by Todd Mcwilliams ([id number]) on 02/03/2023 12:29:07 PM Referred By: REFERRED SELF Confirmed By:Todd Mcwilliams
== END 2023-02-02 21:42 | disposition short-term general hospital (02) | DRG 378 ==
LOC: ED 14:56 → 1E 16:16
DX: Z79.82 Long term (current) use of aspirin; B96.1 Klebsiella pneumoniae [K. pneumoniae] as the cause of diseases classified elsewhere; E03.9 Hypothyroidism, unspecified; I49.5 Sick sinus syndrome; Z87.891 Personal history of nicotine dependence; E85.4 Organ-limited amyloidosis; Z92.21 Personal history of antineoplastic chemotherapy; Z79.890 Hormone replacement therapy; I48.0 Paroxysmal atrial fibrillation; Z95.0 Presence of cardiac pacemaker; Z79.899 Other long term (current) drug therapy; C90.01 Multiple myeloma in remission; Z88.8 Allergy status to other drugs, medicaments and biological substances; N39.0 Urinary tract infection, site not specified; I43 Cardiomyopathy in diseases classified elsewhere; I95.89 Other hypotension; Z79.01 Long term (current) use of anticoagulants; Z87.11 Personal history of peptic ulcer disease; K25.4 Chronic or unspecified gastric ulcer with hemorrhage; I50.32 Chronic diastolic (congestive) heart failure

== ENCOUNTER 2023-02-13 03:29 | Inpatient (IN) ==
[2023-02-13] MEDS ORDERED: SODIUM CHLORIDE 0.9% 1,000 ML IV STA (03:48)
[2023-02-13 04:09] LABS: Basophils # (auto) 0.03 K/uL (0.00-0.20); Basophils % (auto) 0.5 %; Eosinophils % (auto) 1.5 %; Hematocrit (blood only) 30.2 % (37.0-47.0); Hemoglobin 9.5 g/dl (12.0-16.0); Immature Granulocytes # (auto) 0.02 K/uL (0.01-0.20); Immature Granulocytes % (auto) 0.3 %; Lymphocytes # (auto) 0.53 K/uL (1.20-3.40); Lymphocytes % (auto) 8.1 %; Mean Corpuscular Hemoglobin 28.7 pg (25.0-34.0); Mean Corpuscular Hgb Conc 31.5 g/dL (32.0-36.0); Mean Corpuscular Volume 91.2 fL (80.0-100.0); Mean Platelet Volume 11.2 fL (9.4-12.4); Monocytes # (auto) 0.54 K/uL (0.11-0.59); Monocytes % (auto) 8.3 %; Neutrophils # (auto) 5.29 K/uL (1.40-6.50); Neutrophils % (auto) 81.3 %; Platelet Count 199 K/uL (130-400); RDW Coefficient of Variation 17.2 % (11.5-14.5); RDW Standard Deviation 54.9 fL (36.4-46.3); Red Blood Count 3.31 M/uL (4.20-5.40); White Blood Count 6.51 K/ul (4.8-10.8)
[2023-02-13 04:19] LABS: Albumin Globulin Ratio 0.7 (0.9-2); Albumin Level 3.2 gm/dl (3.4-5.0); BUN Creatinine Ratio 30.9 (10-20); Bilirubin,Total 0.8 mg/dl (0.2-1.0); Calcium 8.8 mg/dl (8.6-10.3); Creatinine Clr Calc Pharmacy 58.2 ml/min; Est GFR (African American) 98.5 ml/min; Globulin 4.5 gm/dl (2.5-4.0); Potassium 3.3 mmol/L (3.5-5.1); Total Protein 7.7 gm/dl (6.0-8.3)
[2023-02-13] MEDS ORDERED: OPTIRAY 320 100ml IV ONE (04:55)
[2023-02-13] MEDS ORDERED: ONDANSETRON INJ 2 MG/ML 2 ML VIAL IV STA (05:01)
--- NOTE | 2023-02-13 05:32 | CT Scan Report ---
Exam(s): CT ABDOMEN + PELVIS With Contrast IV Amt: 90 ml optiray 320 EXAM: CT Abdomen and Pelvis With Intravenous Contrast CLINICAL HISTORY: Reason for exam: perforation of gastric ulcer? abd pain. TECHNIQUE: Axial computed tomography images of the abdomen and pelvis with intravenous contrast. CTDI is 14.07 mGy and DLP is 686.59 mGy-cm. Automated exposure control was utilized for the study. A dose lowering technique was utilized adhering to the principles of ALARA. CONTRAST: Patient received 90 ml optiray 320 of IV contrast COMPARISON: CT Abdomen Pelvis dated february 02 2023 FINDINGS: Lung bases: Large bilateral pleural effusions, incompletely characterized, with partially visualized left lower lobe collapse and partial right lower lobe collapse. Mediastinum: Radiopaque foreign body noted within the hiatal hernia which is favored to be iatrogenic in nature. Consider correlation with prior procedural history. This is noted on prior CT abdomen/pelvis February 02, 2023. ABDOMEN: Liver: Heterogeneous attenuation of the liver. Gallbladder and bile ducts: Patient is status post internalized biliary stent with proximal coil at the hepatic hilum and distal coil within the duodenum. Diffuse gallbladder wall thickening with adjacent stranding. Findings may be due to volume overload or low protein state. If there is further concern for cholecystitis, consider HIDA imaging. No ductal dilation. Pancreas: Unremarkable. No mass. No ductal dilation. Spleen: Unremarkable. No splenomegaly. Adrenals: Unremarkable. No mass. Kidneys and ureters: Unremarkable. No solid mass. No hydronephrosis. Stomach and bowel: Previously noted soft tissue mass within the stomach is not visualized. If there is further concern for ulcer, consider direct inspection or fluoroscopic imaging. Rectal vault distention measuring 6.4 cm. No evidence of adjacent stranding. Stercoral colitis is less likely. Consider disimpaction. Colonic diverticulosis. No evidence of diverticulitis. PELVIS: Appendix: No findings to suggest acute appendicitis. Bladder: Gas the bladder dome may be post procedural nature. Cystitis also possible. Consider correlation with laboratory values. Reproductive: Fibroid within the posterior uterus. ABDOMEN and PELVIS: Intraperitoneal space: Moderate volume mesenteric volume of abdominal and pelvic ascites. No free air. Bones/joints: No acute fracture. No dislocation. Soft tissues: Unremarkable. Vasculature: Unremarkable. No abdominal aortic aneurysm. Lymph nodes: Unremarkable. No enlarged lymph nodes. IMPRESSION: 1. Patient is status post internalized biliary stent with proximal coil at the hepatic hilum and distal coil within the duodenum. 2. Moderate volume mesenteric volume of abdominal and pelvic ascites. 3. Previously noted soft tissue mass within the stomach is not visualized. If there is further concern for ulcer, consider direct inspection or fluoroscopic imaging. 4. Findings suspicious for systemic volume overload with large bilateral pleural effusions, moderate mesenteric ascites, and anasarca. 5. Rectal vault distention measuring 6.4 cm. No evidence of adjacent stranding. Stercoral colitis is less likely. Consider disimpaction. 6. Diffuse gallbladder wall thickening with adjacent stranding. Findings may be due to volume overload or low protein state. If there is further concern for cholecystitis, consider HIDA imaging. 7. No other acute findings. 8. Incidental findings as described. Electronically signed by: Jose Silva MD 02/13/23 05:31 AM
[2023-02-13 06:25] LABS: Appearance Urine Clear (Clear); Bacteria Urine Automated Negative (Negative); Bilirubin Urine Negative (Negative); Blood Urine 3+ (Negative); Color Urine Yellow; Epithelial Cell Urine Auto >30 /lpf (0-5); Glucose Urine UA Negative (Negative); Ketones Urine Negative (Negative); Leukocyte Esterase Urine Trace (Negative); Nitrite Urine Negative (Negative); Protein Urine Negative (Negative); Specific Gravity Urine 1.025 (1.000-1.030); Urobilinogen Urine Negative (Negative); pH Urine 7.5 (4.5-7.5)
--- NOTE | 2023-02-13 06:32 | Emergency Department Note ---
Impression & Plan Acute GI bleeding, Congestive heart failure, Volume overload, ABLA (acute blood loss anemia) ED Provider Note CHIEF COMPLAINT: Shortness of breath HISTORY OF PRESENT ILLNESS: This 77-year-old female patient with past medical history of multiple myeloma, heart failure, bilateral pleural effusions, atrial tachycardia, atrial fibrillation, peptic ulcer disease with recent bleed presents to the emergency department with complaints of shortness of breath and diffuse abdominal discomfort. The patient was recently admitted to our facility after the upper GI bleed on Eliquis and had an upper endoscopy performed. Ulceration in stomach was noted with questional perforation. The patient did receive a massive transfusion protocol and was flown to [facility] in [place] for further evaluation and management. The patient was just discharged several days ago. She states she is no longer taking any anticoagulation. She is feeling short of breath and prefers to lay on her left side. She did notice a bloody bowel movement early this morning. The patient presents secondary to the bloody bowel movement and diffuse abdominal discomfort. REVIEW OF SYSTEMS: A review of systems was performed with positives and pertinent negatives listed in the history of present illness. 10 systems were reviewed and are otherwise negative. ALLERGIES: see below MEDICATIONS: see below PMH: see below SOCIAL HISTORY: see below DDx: Upper GI bleed, lower GI bleed, anemia, heart failure, worsening pleural effusion, acute myocardial infarction, PE among others. PHYSICAL EXAM: Vital signs reviewed. General: Chronically ill-appearing 77-year-old female, in no significant distress. HEENT: No scleral icterus, PERRLA, neck supple. Dry mucous membranes Cardiovascular: Irregular but rate controlled. Pulmonary: Clear to auscultation bilaterally, normal work of breathing. Abdomen: Soft, nontender, nondistended, positive bowel sounds. Musculoskeletal: Atraumatic, no peripheral edema. Rectal: Dark brown stool with dark red blood. No obvious rectal mass or fissure appreciated. Neurologic: Patient awake alert and oriented x 3, speech is clear Skin: Warm, dry, no rash EXTERNAL medical records reviewed: Discharge summary dated 02/02/2023 due to upper GI bleed, GI procedure notes dated 02/02/2023 for EGD. EMERGENCY DEPARTMENT COURSE/MDM: This patient was evaluated and appeared to be in no significant distress. IV access was obtained and laboratory work was drawn. Patient's systolic blood pressures were noted to be dipping into the 90s, IV hydration was initiated. Patient was typed and screened. Laboratory work reveals a hemoglobin of 9.5 which is a slight drop from her most recent previous. Patient does appear to be overall fluid overloaded. Chest x-ray reveals a large left pleural effusion, smaller effusion on the right. CT imaging of the abdomen pelvis was ordered and reveals biliary stent, ascites, bilateral pleural effusions rectal stool and gallbladder wall thickening. The patient is thankfully no longer anticoagulated. I do suspect the patient is suffering from a recurrent GI bleed but his overall volume overloaded. She is fairly stable at this time. The patient's case was discussed with the hospitalist service who will evaluate the patient for admission and further management. Patient has been aware of the plan and agreed. MONITORING: An order for cardiac monitoring was placed and the patient is noted to be in a NSR at 60 beats per minute. RADIOLOGY: Chest x-ray to my interpretation reveals evidence of a left greater than right pleural effusion with cardiomegaly. Otherwise defer to radiology. CT imaging of the abdomen pelvis per radiology: IMPRESSION: 1. Patient is status post internalized biliary stent with proximal coil at the hepatic hilum and distal coil within the duodenum. 2. Moderate volume mesenteric volume of abdominal and pelvic ascites. 3. Previously noted soft tissue mass within the stomach is not visualized. If there is further concern for ulcer, consider direct inspection or fluoroscopic imaging. 4. Findings suspicious for systemic volume overload with large bilateral pleural effusions, moderate mesenteric ascites, and anasarca. 5. Rectal vault distention measuring 6.4 cm. No evidence of adjacent stranding. Stercoral colitis is less likely. Consider disimpaction. 6. Diffuse gallbladder wall thickening with adjacent stranding. Findings may be due to volume overload or low protein state. If there is further concern for cholecystitis, consider HIDA imaging. 7. No other acute findings. 8. Incidental findings as described. EKG: To my interpretation reveals AV dual paced rhythm at 88 bpm. QTc is 641. When compared to previous dated February 02, 2023, paced rhythm has replaced wide complex QRS DISPOSITION: Admission Past Med/Surg History Medical History (Updated 02/18/23 @ 06:16 by Cristina Fox MD) Chronic peptic ulcer with bleeding Tachy-walker syndrome Atrial fibrillation Hx of cardiac pacemaker GI bleed Dyspnea on exertion Pleural effusion due to CHF (congestive heart failure) Acute on chronic heart failure with preserved ejection fraction (HFpEF) Acute combined systolic and diastolic CHF, NYHA class 3 Acute on chronic diastolic (congestive) heart failure Nausea & vomiting Elevated troponin Chronic diastolic heart failure Cardiac amyloidosis Multiple myeloma Surgical History (Updated 02/15/23 @ 00:10 by Sapphire Pelaez) History of permanent cardiac pacemaker placement History of colonoscopy History of tubal ligation Family History Father , 50s Stroke Mother , 90 Coronary heart disease Social History Smoking Status: Never smoker Second Hand Exposure: No; Do You Dip or Chew Tobacco: No; Hx Alcohol Use: No Hx Substance Use: No Preferred Language: [place]se 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: Effective [employer] Job Titles Required: No Beliefs That Will Affect Care: None marital status: Current Living Situation: Spouse Current Living Situation Comment: with Other Information That Helps Us Care for You: No Feels Safe at Home: Yes Safety Concerns: Feels Safe At This Time Assistive Devices: Bedside Commode, Walker and Other Allergies Allergies Allergy/AdvReac Type Severity Reaction Status Date / Time iron Allergy Rash Verified 01/27/23 15:23 Home Meds Home Medications Medication Instructions Recorded Confirmed cyanocobalamin (vitamin B-12) 1,000 mcg PO QAM 05/14/21 02/13/23 1,000 mcg tablet (Vitamin B-12) sucralfate 100 mg/mL oral 10 ml PO QID PRN Gi Upset 11/22/22 02/13/23 suspension levothyroxine 50 mcg tablet 50 mcg PO QAM 01/27/23 02/13/23 midodrine 2.5 mg tablet 2.5 mg PO TIDM 01/27/23 02/13/23 escitalopram oxalate 10 mg tablet 10 mg PO DAILY 02/16/23 02/16/23 Previous Rx's Medication Instructions Recorded amiodarone 200 mg tablet 200 mg PO BID #60 tabs 01/15/23 pantoprazole 40 mg tablet,delayed 40 mg PO BID #60 tabs 01/15/23 release amoxicillin 875 mg-potassium 1 tab PO BIDM #10 tabs 02/01/23 clavulanate 125 mg tablet furosemide 40 mg tablet 80 mg (2 x 40 mg) PO BID #60 tabs 02/01/23 potassium chloride 20 mEq 20 meq PO BID #60 tabs 02/01/23 tablet,extended release(part/cryst) Results & Data (ED) Vital Signs Vital Signs - 24 hr 02/13/23 03:40 02/13/23 03:41 02/13/23 03:41 Temperature 36.5 C Temperature Source Oral Pulse Rate 72 68 Pulse Rate from SpO2 Sensor Respiratory Rate 30 H 20 Blood Pressure 112/64 112/64 112/64 Blood Pressure Mean 80 80 69 Pulse Oximetry 93 93 Oxygen Delivery Method Nasal Cannula Oxygen Flow Rate 3 Sepsis Recent Fever Within 48 Hours No Sepsis New/Unexplained Change in Mental Status No Sepsis Action Taken by Nursing No Action Required 02/13/23 03:46 02/13/23 03:46 02/13/23 03:48 Temperature Temperature Source Pulse Rate 80 84 Pulse Rate from SpO2 Sensor 72 Respiratory Rate 23 Blood Pressure 105/64 Blood Pressure Mean 70 Pulse Oximetry 93 Oxygen Delivery Method Oxygen Flow Rate Sepsis Recent Fever Within 48 Hours Sepsis New/Unexplained Change in Mental Status Sepsis Action Taken by Nursing 02/13/23 04:01 02/13/23 04:30 02/13/23 05:00 Temperature Temperature Source Pulse Rate 60 60 65 Pulse Rate from SpO2 Sensor 60 64 Respiratory Rate 22 24 22 Blood Pressure 96/55 L 111/69 117/64 Blood Pressure Mean 68 83 81 Pulse Oximetry 98 97 99 Oxygen Delivery Method Room Air Nasal Cannula Nasal Cannula Oxygen Flow Rate 3 3 Sepsis Recent Fever Within 48 Hours Sepsis New/Unexplained Change in Mental Status Sepsis Action Taken by Nursing 02/13/23 05:30 02/13/23 06:00 Temperature Temperature Source Pulse Rate 60 60 Pulse Rate from SpO2 Sensor 60 60 Respiratory Rate 16 22 Blood Pressure 104/56 L 97/54 L Blood Pressure Mean 72 68 Pulse Oximetry 100 99 Oxygen Delivery Method Nasal Cannula Nasal Cannula Oxygen Flow Rate 2 2 Sepsis Recent Fever Within 48 Hours Sepsis New/Unexplained Change in Mental Status Sepsis Action Taken by [facility] Medications Current Medication List: was personally reviewed by me Laboratory Data Attestation: I reviewed the patient's lab results. 02/17/23 06:15 02/17/23 06:15 Lab Results 02/13/23 02/13/23 02/13/23 Range/Units 03:48 04:07 06:10 WBC 6.51 (4.8-10.8) K/ul RBC 3.31 L (4.20-5.40) M/uL Hgb 9.5 L (12.0-16.0) g/dl Hct 30.2 L (37.0-47.0) % MCV 91.2 (80.0-100.0) fL MCH 28.7 (25.0-34.0) pg MCHC 31.5 L (32.0-36.0) g/dL RDW Std Deviation 54.9 H (36.4-46.3) fL RDW Coeff of Nasir 17.2 H (11.5-14.5) % Plt Count 199 (130-400) K/uL MPV 11.2 (9.4-12.4) fL Immature Gran % (Auto) 0.3 % Neut % (Auto) 81.3 % Lymph % (Auto) 8.1 % [place] % (Auto) 8.3 % Eos % (Auto) 1.5 % Baso % (Auto) 0.5 % Neut # (Auto) 5.29 (1.40-6.50) K/uL Lymph # (Auto) 0.53 L (1.20-3.40) K/uL [place] # (Auto) 0.54 (0.11-0.59) K/uL Eos # (Auto) 0.10 (0.00-0.50) K/uL Baso # (Auto) 0.03 (0.00-0.20) K/uL Immature Gran # (Auto) 0.02 (0.01-0.20) K/uL Sodium 138 (136-145) mmol/L Potassium 3.3 L (3.5-5.1) mmol/L Chloride 104 (98-107) mmol/L Carbon Dioxide 26 (21-32) mmol/L Anion Gap 8 (3-11) BUN 21 (6-23) mg/dl Creatinine 0.68 (0.6-1.2) mg/dl Est Cr Clr Drug Dosing 58.2 ml/min Est GFR ( Amer) 98.5 ml/min Est GFR (Non-Af Amer) 85.0 ml/min BUN/Creatinine Ratio 30.9 H (10-20) Glucose 118 H (70-99(Fasting)) mg/dl Calcium 8.8 (8.6-10.3) mg/dl Total Bilirubin 0.8 (0.2-1.0) mg/dl AST 26 (13-39) U/L ALT 18 (7-52) U/L Alkaline Phosphatase 81 (34-104) U/L Total Protein 7.7 (6.0-8.3) gm/dl Albumin 3.2 L (3.4-5.0) gm/dl Globulin 4.5 H (2.5-4.0) gm/dl Albumin/Globulin Ratio 0.7 L (0.9-2) Lipase 11 (11-82) U/L Urine Color Yellow Urine Appearance Clear (Clear) Urine pH 7.5 (4.5-7.5) Ur Specific [place] 1.025 (1.000-1.030) Urine Protein Negative (Negative) Urine Glucose (UA) Negative (Negative) Urine Ketones Negative (Negative) Urine Blood 3+ H (Negative) Urine Nitrite Negative (Negative) Urine Bilirubin Negative (Negative) Urine Urobilinogen Negative (Negative) Ur Leukocyte Esterase Trace H (Negative) Urine WBC (Auto) 1-5 (0-5) /hpf Urine RBC (Auto) 10-30 H (0-4) /hpf U Hyaline Cast (Auto) 1-5 (0-5) /lpf U Epithel Cells (Auto) >30 H (0-5) /lpf Urine Bacteria (Auto) Negative (Negative) Blood Type O Positive Antibody Screen NEGATIVE Crossmatch See Detail Administered Medications Amiodarone HCl (Amiodarone 200 Mg Tab) 200 mg PO BID [facility] Stop: 03/15/23 09:29 Last Admin: 02/17/23 21:08 Dose: 200 mg Documented By: Admin: 02/17/23 09:00 Dose: 200 mg Documented By: Admin: 02/16/23 20:12 Dose: 200 mg Documented By: Admin: 02/16/23 09:31 Dose: 200 mg Documented By: Admin: 02/15/23 20:07 Dose: 200 mg Documented By: Admin: 02/15/23 08:28 Dose: 200 mg Documented By: Admin: 02/14/23 21:49 Dose: 200 mg Documented By: Admin: 02/14/23 09:01 Dose: 200 mg Documented By: Admin: 02/13/23 21:28 Dose: 200 mg Documented By: Admin: 02/13/23 09:57 Dose: 200 mg Documented By: EB Cyanocobalamin (Cyanocobalamin (B-12) 500 Mcg Tablet) 1,000 mcg PO QAM RYANN Stop: 03/15/23 09:29 Last Admin: 02/17/23 09:02 Dose: 1,000 mcg Documented By: Admin: 02/16/23 09:30 Dose: 1,000 mcg Documented By: Admin: 02/15/23 08:27 Dose: Not Given Documented By: Admin: 02/14/23 09:27 Dose: Not Given Documented By: Admin: 02/13/23 09:58 Dose: 1,000 mcg Documented By: BT Escitalopram Oxalate (Escitalopram Oxalate 10 Mg Tab) 10 mg PO DAILY RYANN Stop: 03/18/23 16:59 Last Admin: 02/17/23 09:02 Dose: 10 mg Documented By: Admin: 02/16/23 18:17 Dose: 10 mg Documented By: JAMES Furosemide (Furosemide 40 Mg/4 Ml Vial) 40 mg IV BID RYANN Stop: 03/17/23 08:59 Last Admin: 02/17/23 21:11 Dose: 40 mg Documented By: Admin: 02/17/23 09:03 Dose: 40 mg Documented By: Admin: 02/16/23 20:12 Dose: 40 mg Documented By: Admin: 02/16/23 09:30 Dose: 40 mg Documented By: Admin: 02/15/23 20:08 Dose: 40 mg Documented By: Admin: 02/15/23 08:51 Dose: Not Given Documented By: EP Piperacillin Sod/Tazobactam (Sod 4.5 gm/ Dextrose) 100 mls @ 25 mls/hr IV Q8H RYANN; Protocol Stop: 02/23/23 11:59 Last Admin: 02/18/23 05:23 Dose: 25 mls/hr Documented By: Infusion: 02/18/23 00:53 Dose: Infused Documented By: Admin: 02/17/23 21:13 Dose: 25 mls/hr Documented By: Infusion: 02/17/23 17:02 Dose: Infused Documented By: Admin: 02/17/23 13:02 Dose: 25 mls/hr Documented By: Infusion: 02/17/23 09:29 Dose: Infused Documented By: Admin: 02/17/23 05:29 Dose: 25 mls/hr Documented By: Infusion: 02/17/23 00:32 Dose: Infused Documented By: Admin: 02/16/23 20:21 Dose: 25 mls/hr Documented By: Infusion: 02/16/23 18:12 Dose: Infused Documented By: Admin: 02/16/23 13:23 Dose: 25 mls/hr Documented By: Infusion: 02/16/23 10:31 Dose: Infused Documented By: Admin: 02/16/23 05:52 Dose: 25 mls/hr Documented By: Infusion: 02/16/23 02:32 Dose: Infused Documented By: Admin: 02/15/23 22:00 Dose: 25 mls/hr Documented By: Infusion: 02/15/23 20:15 Dose: Infused Documented By: Admin: 02/15/23 16:15 Dose: 25 mls/hr Documented By: Infusion: 02/15/23 10:39 Dose: Infused Documented By: Admin: 02/15/23 05:52 Dose: 25 mls/hr Documented By: Infusion: 02/15/23 02:26 Dose: Infused Documented By: Admin: 02/14/23 22:20 Dose: 25 mls/hr Documented By: Infusion: 02/14/23 21:46 Dose: Infused Documented By: Admin: 02/14/23 15:42 Dose: 25 mls/hr Documented By: Infusion: 02/14/23 09:29 Dose: Infused Documented By: Admin: 02/14/23 04:17 Dose: 25 mls/hr Documented By: Infusion: 02/14/23 01:05 Dose: Infused Documented By: Admin: 02/13/23 20:59 Dose: 25 mls/hr Documented By: Infusion: 02/13/23 19:17 Dose: Infused Documented By: Admin: 02/13/23 14:52 Dose: 25 mls/hr Documented By: BT Pantoprazole Sodium 40 mg/ (Syringe) 10 mls @ 5 mls/min IV BID RYANN Stop: 03/17/23 20:59 Last Admin: 02/17/23 21:11 Dose: 5 mls/min Documented By: Admin: 02/17/23 09:03 Dose: 5 mls/min Documented By: Admin: 02/16/23 20:12 Dose: 5 mls/min Documented By: Admin: 02/16/23 09:30 Dose: 5 mls/min Documented By: Admin: 02/15/23 20:06 Dose: 5 mls/min Documented By: AM Levothyroxine Sodium (Levothyroxine Sodium 50 Mcg Tablet) 50 mcg PO DAILYBB RYANN Stop: 03/16/23 06:29 Last Admin: 02/18/23 05:23 Dose: 50 mcg Documented By: Admin: 02/17/23 05:29 Dose: 50 mcg Documented By: Admin: 02/16/23 05:52 Dose: 50 mcg Documented By: Admin: 02/15/23 05:53 Dose: 50 mcg Documented By: Admin: 02/14/23 06:03 Dose: 50 mcg Documented By: RUSTY Midodrine (Midodrine Hcl 2.5 Mg Tab) 2.5 mg PO TIDM RYANN Stop: 03/15/23 09:29 Last Admin: 02/17/23 17:47 Dose: 2.5 mg Documented By: Admin: 02/17/23 13:01 Dose: 2.5 mg Documented By: Admin: 02/17/23 09:00 Dose: 2.5 mg Documented By: Admin: 02/16/23 17:08 Dose: 2.5 mg Documented By: Admin: 02/16/23 12:01 Dose: 2.5 mg Documented By: Admin: 02/16/23 07:21 Dose: 2.5 mg Documented By: Admin: 02/15/23 18:02 Dose: 2.5 mg Documented By: Admin: 02/15/23 12:25 Dose: 2.5 mg Documented By: Admin: 02/15/23 08:24 Dose: 2.5 mg Documented By: Admin: 02/14/23 18:11 Dose: Not Given Documented By: Admin: 02/14/23 15:51 Dose: 2.5 mg Documented By: Admin: 02/14/23 09:00 Dose: 2.5 mg Documented By: Admin: 02/13/23 16:27 Dose: 2.5 mg Documented By: Admin: 02/13/23 14:07 Dose: 2.5 mg Documented By: Admin: 02/13/23 09:57 Dose: 2.5 mg Documented By: BT Morphine Sulfate (Morphine Sulfate 10 Mg/0.5 Ml Udp) 5 mg PO Q3H PRN PRN Reason: Pain OR DYSPNEA , RR>24 Stop: 03/03/23 13:20 Last Admin: 02/17/23 14:30 Dose: 5 mg Documented By: ROB Polyethylene Glycol (Polyethylene (Miralax) 17 Gm Pack) 17 gm PO DAILY RYANN Stop: 03/17/23 08:59 Last Admin: 02/17/23 09:04 Dose: 17 gm Documented By: Admin: 02/16/23 09:31 Dose: 17 gm Documented By: Admin: 02/15/23 08:28 Dose: 17 gm Documented By: EP Potassium Chloride (Potassium Chloride 20 Meq/15 Ml Udc) 20 meq PO BID RYANN Stop: 03/18/23 20:59 Last Admin: 02/17/23 21:08 Dose: 20 meq Documented By: Admin: 02/17/23 09:04 Dose: 20 meq Documented By: Admin: 02/16/23 20:12 Dose: 20 meq Documented By: TERESITA Spironolactone (Spironolactone 25 Mg Tab) 25 mg PO QAM [facility] Stop: 03/16/23 11:14 Last Admin: 02/17/23 09:01 Dose: 25 mg Documented By: Admin: 02/16/23 09:30 Dose: 25 mg Documented By: Admin: 02/15/23 08:28 Dose: 25 mg Documented By: Admin: 02/14/23 15:55 Dose: 25 mg Documented By: EP Discontinued Medications Benzocaine/Butamben/Tetracaine HCl (Benzocaine/Tetracain/Butam 50 Appln/5 Gm Can) Confirm Administered Dose 50 appln EXT .STK-MED ONE Stop: 02/13/23 11:53 Last Admin: 02/13/23 13:06 Dose: Not Given Documented By: BT Droperidol (Droperidol 5 Mg/2 Ml Vial) Confirm Administered Dose 5 mg .ROUTE .STK-MED ONE Stop: 02/14/23 13:59 Last Admin: 02/14/23 15:53 Dose: Not Given Documented By: EP Furosemide (Furosemide 40 Mg/4 Ml Vial) 40 mg IV ONE ONE Stop: 02/13/23 15:07 Last Admin: 02/13/23 15:40 Dose: 40 mg Documented By: BT Sodium Chloride (Nss) 1,000 mls @ 125 mls/hr IV .Q8H STA Stop: 02/13/23 11:47 Last Infusion: 02/13/23 19:09 Dose: Infused Documented By: Admin: 02/13/23 03:54 Dose: 125 mls/hr Documented By: CLIFFORD Potassium Chloride (K Tee / Wtr) 10 meq in 100 mls @ 100 mls/hr IV Q1H RYANN Stop: 02/13/23 10:59 Last Infusion: 02/13/23 18:01 Dose: Infused Documented By: Admin: 02/13/23 16:27 Dose: 100 mls/hr Documented By: Infusion: 02/13/23 16:09 Dose: Infused Documented By: Admin: 02/13/23 15:09 Dose: 100 mls/hr Documented By: Infusion: 02/13/23 14:42 Dose: Infused Documented By: Admin: 02/13/23 13:42 Dose: 100 mls/hr Documented By: Infusion: 02/13/23 10:38 Dose: Infused Documented By: Admin: 02/13/23 09:14 Dose: 100 mls/hr Documented By: BT Sodium Chloride (Nss) 1,000 mls @ 80 mls/hr IV .[id number] RYANN Stop: 03/15/23 06:59 Last Admin: 02/13/23 14:39 Dose: Not Given Documented By: BT Pantoprazole Sodium 80 mg/ (Dextrose) 120 mls @ 400 mls/hr IV NOW ONE Stop: 02/13/23 07:17 Last Infusion: 02/13/23 19:19 Dose: Infused Documented By: Admin: 02/13/23 07:27 Dose: 400 mls/hr Documented By: ESTELLE Pantoprazole Sodium 40 mg/ (Dextrose) 100 mls @ 20 mls/hr IV Q5H RYANN Stop: 03/15/23 07:29 Last Admin: 02/15/23 18:14 Dose: Not Given Documented By: Infusion: 02/15/23 18:14 Dose: Infused Documented By: Admin: 02/15/23 12:24 Dose: 8 mg/hr, 20 mls/hr Documented By: Infusion: 02/15/23 12:24 Dose: Infused Documented By: Admin: 02/15/23 07:27 Dose: 8 mg/hr, 20 mls/hr Documented By: Infusion: 02/15/23 07:24 Dose: Infused Documented By: Admin: 02/15/23 02:34 Dose: 8 mg/hr, 20 mls/hr Documented By: Infusion: 02/15/23 02:27 Dose: Infused Documented By: Admin: 02/14/23 22:00 Dose: 8 mg/hr, 20 mls/hr Documented By: Infusion: 02/14/23 21:46 Dose: Infused Documented By: Admin: 02/14/23 16:13 Dose: 8 mg/hr, 20 mls/hr Documented By: Infusion: 02/14/23 16:07 Dose: Infused Documented By: Admin: 02/14/23 11:07 Dose: 8 mg/hr, 20 mls/hr Documented By: Infusion: 02/14/23 11:04 Dose: Infused Documented By: Admin: 02/14/23 06:04 Dose: 8 mg/hr, 20 mls/hr Documented By: Infusion: 02/14/23 06:04 Dose: Infused Documented By: Admin: 02/14/23 01:19 Dose: 8 mg/hr, 20 mls/hr Documented By: Infusion: 02/14/23 01:19 Dose: Infused Documented By: Admin: 02/13/23 20:59 Dose: 8 mg/hr, 20 mls/hr Documented By: Infusion: 02/13/23 20:59 Dose: Infused Documented By: Admin: 02/13/23 16:43 Dose: 8 mg/hr, 20 mls/hr Documented By: Infusion: 02/13/23 16:40 Dose: Infused Documented By: Infusion: 02/13/23 13:04 Dose: 8 mg/hr, 20 mls/hr Documented By: Infusion: 02/13/23 10:39 Dose: 0 mg/hr, 0 mls/hr Documented By: Admin: 02/13/23 09:14 Dose: 8 mg/hr, 20 mls/hr Documented By: BT Piperacillin Sod/Tazobactam (Sod 4.5 gm/ Dextrose) 100 mls @ 200 mls/hr IV NOW ONE; Protocol Stop: 02/13/23 07:44 Last Infusion: 02/13/23 09:45 Dose: Infused Documented By: Admin: 02/13/23 09:14 Dose: 200 mls/hr Documented By: BT Sodium Chloride (Nss) 1,000 mls @ 80 mls/hr IV .[id number] RYANN Stop: 03/15/23 09:00 Last Admin: 02/13/23 14:39 Dose: Not Given Documented By: BT Potassium Chloride (K Tee / Wtr) 10 meq in 100 mls @ 100 mls/hr IV Q1H RYANN Stop: 02/15/23 11:29 Last Infusion: 02/15/23 16:37 Dose: Infused Documented By: Admin: 02/15/23 12:25 Dose: 100 mls/hr Documented By: Infusion: 02/15/23 11:57 Dose: Infused Documented By: Admin: 02/15/23 10:57 Dose: 100 mls/hr Documented By: Infusion: 02/15/23 09:59 Dose: Infused Documented By: Admin: 02/15/23 08:59 Dose: 100 mls/hr Documented By: EP Albumin Human (Albumin 25%) 25 gm in 100 mls @ 50 mls/hr IV Q12H RYANN Stop: 02/18/23 15:59 Last Admin: 02/17/23 16:22 Dose: Not Given Documented By: Infusion: 02/17/23 05:29 Dose: Infused Documented By: Admin: 02/17/23 03:51 Dose: 50 mls/hr Documented By: Infusion: 02/16/23 19:10 Dose: Infused Documented By: Admin: 02/16/23 17:09 Dose: 50 mls/hr Documented By: Infusion: 02/16/23 07:20 Dose: Infused Documented By: Admin: 02/16/23 05:15 Dose: 50 mls/hr Documented By: Infusion: 02/15/23 19:48 Dose: Infused Documented By: Admin: 02/15/23 18:03 Dose: 50 mls/hr Documented By: EP Ioversol (Optiray 320 100ml) 100 ml IV ONCE ONE Stop: 02/13/23 04:56 Last Admin: 02/13/23 04:55 Dose: 90 ml Documented By: ED Lidocaine HCl (Lidocaine 2% 2 Ml Vial/Amp(20mg/Ml)) Confirm Administered Dose 4 ml INFIL .STK-MED ONE Stop: 02/13/23 11:26 Last Admin: 02/13/23 13:05 Dose: Not Given Documented By: EB Lidocaine HCl (Lidocaine 2% 2 Ml Vial/Amp(20mg/Ml)) Confirm Administered Dose 2 ml INFIL .STK-MED ONE Stop: 02/14/23 13:46 Last Admin: 02/14/23 15:53 Dose: Not Given Documented By: ASHOK Morphine Sulfate (Morphine Sulfate 2 Mg/Ml Carp) 2 mg IV NOW STA Stop: 02/13/23 07:00 Last Admin: 02/13/23 07:28 Dose: 2 mg Documented By: ESTELLE Morphine Sulfate (Morphine Sulfate 2 Mg/Ml Carp) 2 mg IV Q3H PRN PRN Reason: Pain Stop: 02/27/23 09:00 Last Admin: 02/16/23 18:21 Dose: 2 mg Documented By: Admin: 02/14/23 12:42 Dose: 2 mg Documented By: ASHOK Ondansetron HCl (Ondansetron Inj 2 Mg/Ml 2 Ml Vial) 4 mg IV NOW STA Stop: 02/13/23 05:02 Last Admin: 02/13/23 05:10 Dose: 4 mg Documented By: CLIFFORD Phenylephrine HCl (Phenylephrine 100mcg/Ml 5ml Syr) Confirm Administered Dose 100 mcg .ROUTE .STK-MED ONE Stop: 02/13/23 11:53 Last Admin: 02/13/23 13:06 Dose: Not Given Documented By: EB Phenylephrine HCl (Phenylephrine 100mcg/Ml 5ml Syr) Confirm Administered Dose 100 mcg .ROUTE .STK-MED ONE Stop: 02/14/23 14:18 Last Admin: 02/14/23 15:53 Dose: Not Given Documented By: ASHOK Polyethylene Glycol/Electrolytes (Lavage Solution 4000ml) 16 dose PO TODAY@1500 RYANN Stop: 02/13/23 21:00 Last Admin: 02/13/23 15:41 Dose: 16 dose Documented By: EB Potassium Chloride (Potassium Chloride Crtab 20 Meq Tabcr) 20 meq PO NOW STA Stop: 02/13/23 15:07 Last Admin: 02/13/23 15:40 Dose: 20 meq Documented By: BT Potassium Chloride (Potassium Chloride Crtab 20 Meq Tabcr) 20 meq PO NOW ONE Stop: 02/14/23 11:06 Last Admin: 02/14/23 15:55 Dose: 20 meq Documented By: EP Potassium Chloride (Potassium Chloride Crtab 20 Meq Tabcr) 40 meq PO BID RYANN Stop: 03/17/23 08:59 Last Admin: 02/16/23 09:30 Dose: 40 meq Documented By: Admin: 02/15/23 20:08 Dose: 40 meq Documented By: Admin: 02/15/23 08:58 Dose: 40 meq Documented By: EP Propofol (Propofol Iv Emulsion 10 Mg/Ml 20 Ml Vial) Confirm Administered Dose 200 mg IV .STK-MED ONE Stop: 02/13/23 11:26 Last Admin: 02/13/23 13:06 Dose: Not Given Documented By: BT Propofol (Propofol Iv Emulsion 10 Mg/Ml 20 Ml Vial) Confirm Administered Dose 200 mg IV .STK-MED ONE Stop: 02/14/23 13:46 Last Admin: 02/14/23 15:53 Dose: Not Given Documented By: EP Imaging Data Radiologist's Impression: Abdomen/Pelvis CT 02/13/23 04:28 Exam(s): CT ABDOMEN + PELVIS With Contrast IV Amt: 90 ml optiray 320 EXAM: CT Abdomen and Pelvis With Intravenous Contrast CLINICAL HISTORY: Reason for exam: perforation of gastric ulcer? abd pain. TECHNIQUE: Axial computed tomography images of the abdomen and pelvis with intravenous contrast. CTDI is 14.07 mGy and DLP is 686.59 mGy-cm. Automated exposure control was utilized for the study. A dose lowering technique was utilized adhering to the principles of ALARA. CONTRAST: Patient received 90 ml optiray 320 of IV contrast COMPARISON: CT Abdomen Pelvis dated february 02 2023 FINDINGS: Lung bases: Large bilateral pleural effusions, incompletely characterized, with partially visualized left lower lobe collapse and partial right lower lobe collapse. Mediastinum: Radiopaque foreign body noted within the hiatal hernia which is favored to be iatrogenic in nature. Consider correlation with prior procedural history. This is noted on prior CT abdomen/pelvis February 02, 2023. ABDOMEN: Liver: Heterogeneous attenuation of the liver. Gallbladder and bile ducts: Patient is status post internalized biliary stent with proximal coil at the hepatic hilum and distal coil within the duodenum. Diffuse gallbladder wall thickening with adjacent stranding. Findings may be due to volume overload or low protein state. If there is further concern for cholecystitis, consider HIDA imaging. No ductal dilation. Pancreas: Unremarkable. No mass. No ductal dilation. Spleen: Unremarkable. No splenomegaly. Adrenals: Unremarkable. No mass. Kidneys and ureters: Unremarkable. No solid mass. No hydronephrosis. Stomach and bowel: Previously noted soft tissue mass within the stomach is not visualized. If there is further concern for ulcer, consider direct inspection or fluoroscopic imaging. Rectal vault distention measuring 6.4 cm. No evidence of adjacent stranding. Stercoral colitis is less likely. Consider disimpaction. Colonic diverticulosis. No evidence of diverticulitis. PELVIS: Appendix: No findings to suggest acute appendicitis. Bladder: Gas the bladder dome may be post procedural nature. Cystitis also possible. Consider correlation with laboratory values. Reproductive: Fibroid within the posterior uterus. ABDOMEN and PELVIS: Intraperitoneal space: Moderate volume mesenteric volume of abdominal and pelvic ascites. No free air. Bones/joints: No acute fracture. No dislocation. Soft tissues: Unremarkable. Vasculature: Unremarkable. No abdominal aortic aneurysm. Lymph nodes: Unremarkable. No enlarged lymph nodes. IMPRESSION: 1. Patient is status post internalized biliary stent with proximal coil at the hepatic hilum and distal coil within the duodenum. 2. Moderate volume mesenteric volume of abdominal and pelvic ascites. 3. Previously noted soft tissue mass within the stomach is not visualized. If there is further concern for ulcer, consider direct inspection or fluoroscopic imaging. 4. Findings suspicious for systemic volume overload with large bilateral pleural effusions, moderate mesenteric ascites, and anasarca. 5. Rectal vault distention measuring 6.4 cm. No evidence of adjacent stranding. Stercoral colitis is less likely. Consider disimpaction. 6. Diffuse gallbladder wall thickening with adjacent stranding. Findings may be due to volume overload or low protein state. If there is further concern for cholecystitis, consider HIDA imaging. 7. No other acute findings. 8. Incidental findings as described. Electronically signed by: Jose Silva MD 02/13/23 05:31 AM Discharge Plan Visit Data Chief Complaint: Abdominal Pain ED Provider: Ruddy,Cristina B Discharge Problem: Acute GI bleeding, Congestive heart failure, Volume overload, ABLA (acute blood loss anemia) Patient Disposition: Admitted As Inpatient Discharge Instructions Interventions: ED Discharge Assessment Last Done: 02/13/23 07:57 Discharge Problem: Congestive heart failure Qualifiers: Heart failure type: unspecified Heart failure chronicity: acute on chronic Q ualified Code(s): I50.9 - Heart failure, unspecified Volume overload Qualifiers: Hypervolemia type: unspecified Qualified Code(s): E87.70 - Fluid overload, unspecified
--- NOTE | 2023-02-13 06:38 | XRay Report ---
XR chest 1V portable CLINICAL HISTORY: Abdominal pain. COMPARISON STUDY: Chest CT January 27, 2023. Chest radiograph February 01, 2023. FINDINGS: Left subclavian pacer is in place. There is no pneumothorax. A large left pleural effusion has increased in size since chest radiograph of February 01, 2023. This has mild mass effect with righ tward mediastinal shift. Small right pleural effusion has slightly increased. Interstitial thickening suggests mild pulmonary edema. Cardiomegaly is noted. Radiodensity projects over the mediastinum. Th is is unchanged. IMPRESSION: 1. Increase in size of a large left pleural effusion. Slight increase in a small right pleural effusi on. 2. Cardiomegaly with mild interstitial pulmonary edema. ACT 112: Negative or not required by law. Electronically signed by: Ayan Guerrero M.D. 02/13/2023 6:37 AM
[2023-02-13] MEDS ORDERED: MoRPHine SULFATE 2 MG/ML CARP IV STA (06:59)
[2023-02-13] MEDS ORDERED: PANTOprazole 80 MG in DEXTROSE 5% 100 ML IV ONE (07:00)
[2023-02-13] MEDS ORDERED: PANTOPRAZOLE BOLUS/DRIP IV STA (07:00)
[2023-02-13] MEDS ORDERED: SODIUM CHLORIDE 0.9% 1,000 ML IV SCH ×2 (07:00→09:01)
[2023-02-13] MEDS ORDERED: PIPER/TAZO 4.5g in D5W MINI-B 100 ML IV ONE (07:15)
--- NOTE | 2023-02-13 07:44 | History & Physical Report ---
Date of Service February 13, 2023 Assessment & Plan (1) Acute GI bleeding: Plan: 77-year-old female with past med significant for chronic diastolic CHF, idiopathic cardiomyopathy, cardiac amyloidosis, tachybradycardia syndrome s/p pacemaker, left ventricle hypertrophy, chronic atrial fibrillation, acute gastric ulcer with hemorrhage, multiple myeloma s/p chemo, hemorrhagic shock presents with GI bleed. Patient was admitted on January 07, 2023 with A-fib and biliary colic. She also found to have tachybradycardia syndrome and s/p pacemaker on January 13. Postprocedure had small pneumothorax. She also s/p ERCP for choledocholithiasis s/p 1 plastic biliary stent was placed in the common bile duct and plan was to repeat ERCP in 2 months to remove the stent and possible axios stent placement. EGD done showed nonbleeding gastric ulcers. Patient was again admitted on January 27, 2023 for acute on chronic heart failure with preserved ejection fraction and pleural effusion. Seen by pulmonary but as there was no significant hypoxia thoracocentesis was not done. Was treated with IV diuretics. Pacemaker interrogation was done which showed stable thresholds.Her Eliquis restarted January given risk of stroke with atrial fibrillation and amyloidosis and she was discharged on February 01. On February 02 she was admitted for GI bleed, looks like she had history of gastric ulcer requiring Endo Clip in September 2021.She was having hematemesis and also rectal bleed during February 02 admission. Significant hematemesis in the ER. Seems filled whole emesis basin full of bright red blood .Had hypotension and an episode of syncope. Massive transfusion protocol was initiated and she received Kcentra , FFP and as well as TXA. Received 2 units of PRBC . Patient had emergent EGD. EGD revealed large cratered ulcer in the gastric antrum which was significantly increased in size when compared to prior EGD along with stigmata of recent bleeding. Received IV Rocephin for Klebsiella urine culture from January 27. Patient was seen by the critical care. Patient also seen by general surgery and because of her cardiac issues recommended transfer to tertiary care.Patient was transferred to [facility] for large cratered gastric antral ulcer concern for impending perforation. As per patient at [facility] she had EGD and ulcer was sprayed and had another EGD. She was monitored in the ICU. As per epic patient had EGD on February 03 which showed nonobstructing gastric ulcer with oozing hemorrhage .Hemostatic spray applied. And returned to ICU for repeat EGD in 1 to 2 days. Patient had repeat EGD on February 06. Nonbleeding gastric ulcer with a clean ulcer base was found. And advised for omeprazole 40 mg p.o. twice daily for 8 weeks and to repeat EGD to check healing seems to be done when EUS with gallbladder drainage and ERCP planned. Patient was discharged last Friday to home. Patient states after going home she was feeling very weak and tired. Mostly bedbound. Having abdominal pain. Poor appetite. Tonight again she had a bloody bowel movement which prompted her to come to the ER. Hemoccult was positive in the ER. Hemoglobin is 9.5. Denies any headache. No cough. No fevers. Currently seems no chest pain or shortness of breath. No nausea. Blood pressures somewhat soft. CT abdomen pelvis showing lateral pleural effusions and anasarca ascites. Blood consent obtained. Acute GI bleeding Recurrent as mentioned above Hemoglobin is 9.5 Started on Protonix drip Gentle fluids n.p.o. Blood consent obtained close monitor of H&H Empiric Zosyn GI consulted Heart failure with preserved ejection fraction Cardiac amyloidosis Currently holding Lasix as patient having GI bleed and blood pressure soft Getting gentle fluids ascites, large pleural effusions and anasarca per ct scan may need albumin with Lasix. close monitor Cardiology consulted Chronic hypotension Seems to be on midodrine which will be continued Getting gentle fluids Large Bilateral pleural effusions anasarca Holding diuretics as above Pleural effusions present last admission also We will consult pulmonary History of A-fib Tachybradycardia syndrome S/p pacemaker On amiodarone Currently not on Eliquis because of GI bleed Hypokalemia Will replace We will hold home potassium supplements as Lasix is held currently. Follow labs. History of multiple myeloma s/p chemo Follow-up with heme-onc Hypothyroidism on Synthyroid DVT prophylaxis SCDs Disposition Telemetry floor Full code History of Present Illness Chief Complaint: Abdominal pain and GI bleed Primary Care Provider: Rosendo Boyce DO 77-year-old female with past med significant for chronic diastolic CHF, idiopathic cardiomyopathy, cardiac amyloidosis, tachybradycardia syndrome s/p pacemaker, left ventricle hypertrophy, chronic atrial fibrillation, acute gastric ulcer with hemorrhage, multiple myeloma s/p chemo, hemorrhagic shock presents with GI bleed. Patient was admitted on January 07, 2023 with A-fib and biliary colic. She also found to have tachybradycardia syndrome and s/p pacemaker on January 13. Postprocedure had small pneumothorax. She also s/p ERCP for choledocholithiasis s/p 1 plastic biliary stent was placed in the common bile duct and plan was to repeat ERCP in 2 months to remove the stent and possible axios stent placement. EGD done showed nonbleeding gastric ulcers. Patient was again admitted on January 27, 2023 for acute on chronic heart suhas lure with preserved ejection fraction and pleural effusion. Seen by pulmonary but as there was no significant hypoxia thoracocentesis was not done. Was treated with IV diuretics. Pacemaker interrogation was done which showed stable thresholds.Her Eliquis restarted January given risk of stroke with atrial fibrillation and amyloidosis and she was discharged on February 01. On February 02 she was admitted for GI bleed, looks like she had history of gastric ulcer requiring Endo Clip in September 2021.She was having hematemesis and also rectal bleed during February 02 admission. Significant hematemesis in the ER. Seems filled whole emesis basin full of bright red blood .Had hypotension and an episode of syncope. Massive transfusion protocol was initiated and she received Kcentra , FFP and as well as TXA. Received 2 units of PRBC . Patient had emergent EGD. EGD revealed large cratered ulcer in the gastric antrum which was significantly increased in size when compared to prior EGD along with stigmata of recent bleeding. Received IV Rocephin for Klebsiella urine culture from January 27. Patient was seen by the critical care. Patient also seen by general surgery and because of her cardiac issues recommended transfer to tertiary care.Patient was transferred to [facility] for large cratered gastric antral ulcer concern for impending perforation. As per patient at [facility] she had EGD and ulcer was sprayed and had another EGD. She was monitored in the ICU. As per [facility] patient had EGD on February 03 which showed nonobstructing gastric ulcer with oozing hemorrhage .Hemostatic spray applied. And returned to ICU for repeat EGD in 1 to 2 days. Patient had repeat EGD on February 06. Nonbleeding gastric ulcer with a clean ulcer base was found. And advised for o meprazole 40 mg p.o. twice daily for 8 weeks and to repeat EGD to check healing seems to be done when EUS with gallbladder drainage and ERCP planned. Patient was discharged last Friday to home. Patient states after going home she was feeling very weak and tired. Mostly bedbound. Having abdominal pain. Poor appetite. Tonight again she had a bloody bowel movement which prompted her to come to the ER. Hemoccult was positive in the ER. Hemoglobin is 9.5. Denies any headache. No cough. No fevers. Currently seems no chest pain or shortness of breath. No nausea. Blood pressures somewhat soft. CT abdomen pelvis showing lateral pleural effusions and anasarca ascites. Blood consent obtained. Past medical history. As mentioned above Past surgical history. Colonoscopy. EGD. ERCP. Ligation oviducts. Puncture drainage of the breast cyst. Cataracts Social history. . Quit smoking 1968. No alcohol use. Drug use. Family history.Mother had cancer. Hypertension. Father had hypertension. Stroke. Brother has hypertension. Allergies Allergy/AdvReac Type Severity Reaction Status Date / Time iron Allergy Rash Verified 01/27/23 15:23 Home Medications Medication Instructions Recorded Confirmed Type cyanocobalamin (vitamin B-12) 1,000 mcg PO QAM 05/14/21 02/13/23 History 1,000 mcg tablet (Vitamin B-12) sucralfate 100 mg/mL oral 10 ml PO QID PRN Gi Upset 11/22/22 02/13/23 History suspension amiodarone 200 mg tablet 200 mg PO BID #60 tabs 01/15/23 02/13/23 Rx pantoprazole 40 mg tablet,delayed 40 mg PO BID #60 tabs 01/15/23 02/13/23 Rx release levothyroxine 50 mcg tablet 50 mcg PO QAM 01/27/23 02/13/23 History midodrine 2.5 mg tablet 2.5 mg PO TIDM 01/27/23 02/13/23 History amoxicillin 875 mg-potassium 1 tab PO BIDM #10 tabs 02/01/23 02/13/23 Rx clavulanate 125 mg tablet furosemide 40 mg tablet 80 mg (2 x 40 mg) PO BID #60 tabs 02/01/23 02/13/23 Rx potassium chloride 20 mEq 20 meq PO BID #60 tabs 02/01/23 02/13/23 Rx tablet,extended release(part/cryst) Past Med/Surg History Medical History GI bleed Dyspnea on exertion Pleural effusion due to CHF (congestive heart failure) Acute on chronic heart failure with preserved ejection fraction (HFpEF) Acute combined systolic and diastolic CHF, NYHA class 3 Acute on chronic diastolic (congestive) heart failure Nausea & vomiting Elevated troponin Chronic diastolic heart failure Cardiac amyloidosis Multiple myeloma Surgical History History of colonoscopy History of tubal ligation Family History Father , 50s Stroke Mother , 90 Coronary heart disease Social History Smoking Status: Never smoker Second Hand Exposure: No; Do You Dip or Chew Tobacco: No; Hx Alcohol Use: No Hx Substance Use: No Preferred Language: Trinidadian 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: Effective Seed Expert Required: No Beliefs That Will Affect Care: None marital status: Current Living Situation: Spouse Current Living Situation Comment: with Feels Safe at Home: Yes Assistive Devices: Walker Review of Systems Review of Systems: All systems reviewed & are unremarkable except as noted in HPI & below Physical Exam Physical Exam: General- Not in distress Head- atraumatic Eyes- EOMI ENT- oropharynx dry Neck- supple, no JVD. Lungs- clear to auscultation no wheezing or crackles Heart- regular rhythm; no murmur, no gallop. Abdomen- normal bowel sounds, soft, mild diffuse tender Extremities- no pretibial edema, no erythema seen. Neuro- alert, oriented x 3; EOMI; no facial palsy; no dysarthria; moves extrem ities. Skin- warm & dry Results & Data Results & Data Vital Signs (Past 12 Hours) Vital Signs Temp Pulse Pulse Resp BP BP Pulse Ox 02/13/23 07:23 62 29 H 119/64 97 02/13/23 06:00 60 22 97/54 L 99 02/13/23 05:30 60 16 104/56 L 100 02/13/23 05:00 65 22 117/64 99 02/13/23 04:30 60 24 111/69 97 02/13/23 04:01 60 22 96/55 L 98 02/13/23 03:48 84 02/13/23 03:46 80 23 93 02/13/23 03:46 105/64 02/13/23 03:41 112/64 02/13/23 03:41 68 20 112/64 93 02/13/23 03:40 36.5 C 72 30 H 112/64 93 O2 Del Method O2 Flow Rate 02/13/23 07:23 Nasal Cannula 2 02/13/23 06:00 Nasal Cannula 2 02/13/23 05:30 Nasal Cannula 2 02/13/23 05:00 Nasal Cannula 3 02/13/23 04:30 Nasal Cannula 3 02/13/23 04:01 Room Air 02/13/23 03:48 02/13/23 03:46 02/13/23 03:46 02/13/23 03:41 02/13/23 03:41 02/13/23 03:40 Nasal Cannula 3 Diagnostic Findings Laboratory Results WBC 6.51 K/ul (4.8-10.8) 02/13/23 03:48 RBC 3.31 M/uL (4.20-5.40) L 02/13/23 03:48 Hgb 9.5 g/dl (12.0-16.0) L 02/13/23 03:48 Hct 30.2 % (37.0-47.0) L 02/13/23 03:48 MCV 91.2 fL (80.0-100.0) 02/13/23 03:48 MCH 28.7 pg (25.0-34.0) 02/13/23 03:48 MCHC 31.5 g/dL (32.0-36.0) L 02/13/23 03:48 RDW Std Deviation 54.9 fL (36.4-46.3) H 02/13/23 03:48 RDW Coeff of Nasir 17.2 % (11.5-14.5) H 02/13/23 03:48 Plt Count 199 K/uL (130-400) 02/13/23 03:48 MPV 11.2 fL (9.4-12.4) 02/13/23 03:48 Immature Gran % (Auto) 0.3 % 02/13/23 03:48 Neut % (Auto) 81.3 % 02/13/23 03:48 Lymph % (Auto) 8.1 % 02/13/23 03:48 [place] % (Auto) 8.3 % 02/13/23 03:48 Eos % (Auto) 1.5 % 02/13/23 03:48 Baso % (Auto) 0.5 % 02/13/23 03:48 Neut # (Auto) 5.29 K/uL (1.40-6.50) 02/13/23 03:48 Lymph # (Auto) 0.53 K/uL (1.20-3.40) L 02/13/23 03:48 [place] # (Auto) 0.54 K/uL (0.11-0.59) 02/13/23 03:48 Eos # (Auto) 0.10 K/uL (0.00-0.50) 02/13/23 03:48 Baso # (Auto) 0.03 K/uL (0.00-0.20) 02/13/23 03:48 Immature Gran # (Auto) 0.02 K/uL (0.01-0.20) 02/13/23 03:48 Sodium 138 mmol/L (136-145) 02/13/23 03:48 Potassium 3.3 mmol/L (3.5-5.1) L 02/13/23 03:48 Chloride 104 mmol/L (98-107) 02/13/23 03:48 Carbon Dioxide 26 mmol/L (21-32) 02/13/23 03:48 Anion Gap 8 (3-11) 02/13/23 03:48 BUN 21 mg/dl (6-23) 02/13/23 03:48 Creatinine 0.68 mg/dl (0.6-1.2) 02/13/23 03:48 Est Cr Clr Drug Dosing 58.2 ml/min 02/13/23 03:48 Est GFR ( Amer) 98.5 ml/min 02/13/23 03:48 Est GFR (Non-Af Amer) 85.0 ml/min 02/13/23 03:48 BUN/Creatinine Ratio 30.9 (10-20) H 02/13/23 03:48 Glucose 118 mg/dl (70-99(Fasting)) H 02/13/23 03:48 Calcium 8.8 mg/dl (8.6-10.3) 02/13/23 03:48 Total Bilirubin 0.8 mg/dl (0.2-1.0) 02/13/23 03:48 AST 26 U/L (13-39) 02/13/23 03:48 ALT 18 U/L (7-52) 02/13/23 03:48 Alkaline Phosphatase 81 U/L (34-104) 02/13/23 03:48 Total Protein 7.7 gm/dl (6.0-8.3) 02/13/23 03:48 Albumin 3.2 gm/dl (3.4-5.0) L 02/13/23 03:48 Globulin 4.5 gm/dl (2.5-4.0) H 02/13/23 03:48 Albumin/Globulin Ratio 0.7 (0.9-2) L 02/13/23 03:48 Lipase 11 U/L (11-82) 02/13/23 03:48 Urine Color Yellow 02/13/23 06:10 Urine Appearance Clear (Clear) 02/13/23 06:10 Urine pH 7.5 (4.5-7.5) 02/13/23 06:10 Ur Specific [place] 1.025 (1.000-1.030) 02/13/23 06:10 Urine Protein Negative (Negative) 02/13/23 06:10 Urine Glucose (UA) Negative (Negative) 02/13/23 06:10 Urine Ketones Negative (Negative) 02/13/23 06:10 Urine Blood 3+ (Negative) H 02/13/23 06:10 Urine Nitrite Negative (Negative) 02/13/23 06:10 Urine Bilirubin Negative (Negative) 02/13/23 06:10 Urine Urobilinogen Negative (Negative) 02/13/23 06:10 Ur Leukocyte Esterase Trace (Negative) H 02/13/23 06:10 Urine WBC (Auto) 1-5 /hpf (0-5) 02/13/23 06:10 Urine RBC (Auto) 10-30 /hpf (0-4) H 02/13/23 06:10 U Hyaline Cast (Auto) 1-5 /lpf (0-5) 02/13/23 06:10 U Epithel Cells (Auto) >30 /lpf (0-5) H 02/13/23 06:10 Urine Bacteria (Auto) Negative (Negative) 02/13/23 06:10 SARS-CoV-2, RNA, NAAT NEGATIVE (NEGATIVE) 02/13/23 Unknown Blood Type O Positive 02/13/23 04:07 Antibody Screen NEGATIVE 02/13/23 04:07 Impressions Chest X-Ray 02/13/23 03:48 XR chest 1V portable CLINICAL HISTORY: Abdominal pain. COMPARISON STUDY: Chest CT January 27, 2023. Chest radiograph February 01, 2023. FINDINGS: Left subclavian pacer is in place. There is no pneumothorax. A large left pleural effusion has increased in size since chest radiograph of February 01, 2023. This has mild mass effect with rightward mediastinal shift. Small right pleural effusion has slightly increased. Interstitial thickening suggests mild pulmonary edema. Cardiomegaly is noted. Radiodensity projects over the mediastinum. This is unchanged. IMPRESSION: 1. Increase in size of a large left pleural effusion. Slight increase in a small right pleural effusion. 2. Cardiomegaly with mild interstitial pulmonary edema. ACT 112: Negative or not required by law. Electronically signed by: Ayan Guerrero M.D. 02/13/2023 6:37 AM Abdomen/Pelvis CT 02/13/23 04:28 Exam(s): CT ABDOMEN + PELVIS With Contrast IV Amt: 90 ml optiray 320 EXAM: CT Abdomen and Pelvis With Intravenous Contrast CLINICAL HISTORY: Reason for exam: perforation of gastric ulcer? abd pain. TECHNIQUE: Axial computed tomography images of the abdomen and pelvis with intravenous contrast. CTDI is 14.07 mGy and DLP is 686.59 mGy-cm. Automated exposure control was utilized for the study. A dose lowering technique was utilized adhering to the principles of ALARA. CONTRAST: Patient received 90 ml optiray 320 of IV contrast COMPARISON: CT Abdomen Pelvis dated february 02 2023 FINDINGS: Lung bases: Large bilateral pleural effusions, incompletely characterized, with partially visualized left lower lobe collapse and partial right lower lobe collapse. Mediastinum: Radiopaque foreign body noted within the hiatal hernia which is favored to be iatrogenic in nature. Consider correlation with prior procedural history. This is noted on prior CT abdomen/pelvis February 02, 2023. ABDOMEN: Liver: Heterogeneous attenuation of the liver. Gallbladder and bile ducts: Patient is status post internalized biliary stent with proximal coil at the hepatic hilum and distal coil within the duodenum. Diffuse gallbladder wall thickening with adjacent stranding. Findings may be due to volume overload or low protein state. If there is further concern for cholecystitis, consider HIDA imaging. No ductal dilation. Pancreas: Unremarkable. No mass. No ductal dilation. Spleen: Unremarkable. No splenomegaly. Adrenals: Unremarkable. No mass. Kidneys and ureters: Unremarkable. No solid mass. No hydronephrosis. Stomach and bowel: Previously noted soft tissue mass within the stomach is not visualized. If there is further concern for ulcer, consider direct inspection or fluoroscopic imaging. Rectal vault distention measuring 6.4 cm. No evidence of adjacent stranding. Stercoral colitis is less likely. Consider disimpaction. Colonic diverticulosis. No evidence of diverticulitis. PELVIS: Appendix: No findings to suggest acute appendicitis. Bladder: Gas the bladder dome may be post procedural nature. Cystitis also possible. Consider correlation with laboratory values. Reproductive: Fibroid within the posterior uterus. ABDOMEN and PELVIS: Intraperitoneal space: Moderate volume mesenteric volume of abdominal and pelvic ascites. No free air. Bones/joints: No acute fracture. No dislocation. Soft tissues: Unremarkable. Vasculature: Unremarkable. No abdominal aortic aneurysm. Lymph nodes: Unremarkable. No enlarged lymph nodes. IMPRESSION: 1. Patient is status post internalized biliary stent with proximal coil at the hepatic hilum and distal coil within the duodenum. 2. Moderate volume mesenteric volume of abdominal and pelvic ascites. 3. Previously noted soft tissue mass within the stomach is not visualized. If there is further concern for ulcer, consider direct inspection or fluoroscopic imaging. 4. Findings suspicious for systemic volume overload with large bilateral pleural effusions, moderate mesenteric ascites, and anasarca. 5. Rectal vault distention measuring 6.4 cm. No evidence of adjacent stranding. Stercoral colitis is less likely. Consider disimpaction. 6. Diffuse gallbladder wall thickening with adjacent stranding. Findings may be due to volume overload or low protein state. If there is further concern for cholecystitis, consider HIDA imaging. 7. No other acute findings. 8. Incidental findings as described. Electronically signed by: Jose Silva MD 02/13/23 05:31 AM ECG Additional Comments: ECG. AV dual paced rhythm with occasional ventricular paced complexes at a rate of 88 Code Status & VTE Plan VTE Prophylaxis Plan VTE Prophylaxis will be ordered: Yes
[2023-02-13] MEDS ORDERED: MIDODRINE HCL 2.5 MG TAB PO STA (08:22)
[2023-02-13] MEDS ORDERED: SODIUM CHLORIDE 0.9% 250 ML IV PRN (08:24)
--- NOTE | 2023-02-13 08:54 | Cardiology Consultation ---
Date of Consultation February 13, 2023 Assessment & Plan (1) Acute GI bleeding: (2) Acute on chronic heart failure with preserved ejection fraction (HFpEF): (3) Tachy-igor syndrome: (4) Paroxysmal atrial fibrillation: (5) Cardiac amyloidosis: (6) Pleural effusion due to CHF (congestive heart failure): Supervising Physician Co-Signing Physician Notes Attending Staff: Pt seen and evaluated with [facility] staff Concur with observations and plan 77 yo woman presenting with weakness, fatigue, bloody bowel movement * Started IV PPI * Fluid resuscitation * CXR - very large left pleural effusion, mild to moderate right effusion; fluid in fissure * EKG: Pending * ProBNP - Pending * Creat Consultation: CHF * Cardiac Amylodosis - advanced - had been on home hospice * Multiple hospital stays in the last several months * Rhinovirus - 10/2022 * Choledocholithiasis + PAF - 12/2022 - biliary stent * Bradycardia - 12/2022 - Pacer + Amiodarone /Small Apical PTX after Pacer * 01/30/2023 - restarted DOAC * Represented with GI Bleeding in 01/2023; EGD - gastric ulcer - transfused * Creat .68 * K+ low at 3.3 Plans: * Advanced Cardiac Amyloid * Stop IV Fluids * JVP elevated to Jaw * Lasix 40 mg IV x 1 -may need to escalate dose * K+ goal 4.5-5 * Mag goal >2 * Large Left Pleural Effusion + Abdomino-Pelvic Ascites * Consider large volume Left Thoracentesis; would discuss with Pulmonary Medicine as she may need a chest tube for drainage and re-expansion of Left Lung * Pt may benefit from Pleurex catheter so fluid can be removed in the future * Consider ABD US with an eye towards a paracentesis * GI bleeding - IV PPI, GI evaluation. * Transfuse for HGB <8 * Check 12-lead EKG * Limited ECHO to evaluate for pericardial effusion + IVC size * Na+ restrict * Fluid Restrict -1.5 liters * Check AM cortisol (advanced amyloid may develop hypoadrenal state) * Pt is currently atrially paced * Maintain Amiodarone * TSH has been elevated in the past - please check TSH - may need to adjustments of Levothyroxine * May benefit from goals of care discussion Oleg Munoz History of Present Illness Reason for Consultation: CHF Requesting Physician: Josefa Attending Physician: Sophia History of Present Illness Complex history - multiple myeloma, cardiac amyloidosis, severe chronic diastolic (HFpEF), nonsustained ventricular tachycardia. Hospitalized at [facility] in October 2022 with acute complicated bronchitis, rhinovirus infection, acute decompensated diastolic congestive heart failure with associated pleural effusions, elevated troponin Hospitalized at [facility] in December 2022 with abdominal discomfort. EGD/ERCP on 01/10/2023 with a nonbleeding superficial gastric ulcer with no stigmata of bleeding and choledocholithiasis requiring biliary sphincterotomy, balloon extraction, 1 plastic biliary stent placed in the common bile duct. Course complicated by atrial tachycardia, symptomatic paroxysmal atrial fibrillation, and nonsustained ventricular tachycardia, Tachy-Igor Syndrome. Status post January 13, 2023 Medtronic dual chamber pacemaker implantation complicated by a small left apical pneumothorax. - Generator: Codi xT MRI [id number], Serial Number [id number] - Medtronic Ateial Lead, [id number] CapsureFix Novus MRI, [id number] - Medtronic LBB Lead, [id number] SelectSecure, [id number] Amiodarone prescribed post pacemaker implantation Anticoagulation held due to recent GI bleeding. Restarted (Eliquis) on January 30, 2023 Hospitalized at [facility] in December 2022 with progressive dyspnea, acute on chronic diastolic heart failure with associated bilateral pleural effusions. Hospitalized at [facility] in January 2023 with acute GI bleeding received Kcentra in ED along with massive transfusion protocol. EGD revealed a large cratered ulcer in the gastric antrum which was significantly increased in size compared to her prior EGD, with the stigmata of recurrent bleeding. [facility] [facility] Discharge Summary not available. Presented to [facility] earlier this morning with fatigue, weakness, abdominal pain, poor appetite, after a bloody BM. Hemoccult positive in the ER. Hemoglobin 9.5. Started on a Protonix drip, gentle fluids, empiric Zosyn. Furosemide held. Imaging with pleural effusions and anasarca ascites. Family History: Mother at 90 with cancer. Father at the age of 51 following a hemorrhagic stroke. Maternal aunt with breast cancer. Social History: Reformed remote smoker, in high school. No significant alcohol. 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 Allergies Allergy/AdvReac Type Severity Reaction Status Date / Time iron Allergy Rash Verified 01/27/23 15:23 Home Medications Medication Instructions Recorded Confirmed Type cyanocobalamin (vitamin B-12) 1,000 mcg PO QAM 05/14/21 02/13/23 History 1,000 mcg tablet (Vitamin B-12) sucralfate 100 mg/mL oral 10 ml PO QID PRN Gi Upset 11/22/22 02/13/23 History suspension amiodarone 200 mg tablet 200 mg PO BID #60 tabs 01/15/23 02/13/23 Rx pantoprazole 40 mg tablet,delayed 40 mg PO BID #60 tabs 01/15/23 02/13/23 Rx release levothyroxine 50 mcg tablet 50 mcg PO QAM 01/27/23 02/13/23 History midodrine 2.5 mg tablet 2.5 mg PO TIDM 01/27/23 02/13/23 History amoxicillin 875 mg-potassium 1 tab PO BIDM #10 tabs 02/01/23 02/13/23 Rx clavulanate 125 mg tablet furosemide 40 mg tablet 80 mg (2 x 40 mg) PO BID #60 tabs 02/01/23 02/13/23 Rx potassium chloride 20 mEq 20 meq PO BID #60 tabs 02/01/23 02/13/23 Rx tablet,extended release(part/cryst) Patient History Medical History GI bleed Dyspnea on exertion Pleural effusion due to CHF (congestive heart failure) Acute on chronic heart failure with preserved ejection fraction (HFpEF) Acute combined systolic and diastolic CHF, NYHA class 3 Acute on chronic diastolic (congestive) heart failure Nausea & vomiting Elevated troponin Chronic diastolic heart failure Cardiac amyloidosis Multiple myeloma Surgical History History of colonoscopy History of tubal ligation Family History Father , 50s Stroke Mother , 90 Coronary heart disease Social History Smoking Status: Never smoker Second Hand Exposure: No; Do You Dip or Chew Tobacco: No; Hx Alcohol Use: No Hx Substance Use: No Preferred Language: Slovak 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: Effective Sales Engagement Manager Required: No Beliefs That Will Affect Care: None marital status: Current Living Situation: Spouse Current Living Situation Comment: with Other Information That Helps Us Care for You: No Feels Safe at Home: Yes Safety Concerns: Feels Safe At This Time Assistive Devices: Oxygen - Continuous Review of Systems Review of Systems: All systems reviewed & are unremarkable except as noted in HPI & below Complete Review of Systems is as stated above, negative, or noncontributory. Results & Data Vital Signs (Past 12 Hours) Vital Signs Temp Pulse Pulse Resp BP BP Pulse Ox 02/13/23 08:30 36.4 C L 66 18 104/62 97 02/13/23 07:57 62 99/61 L 98 02/13/23 07:23 62 29 H 119/64 97 02/13/23 06:00 60 22 97/54 L 99 02/13/23 05:30 60 16 104/56 L 100 02/13/23 05:00 65 22 117/64 99 02/13/23 04:30 60 24 111/69 97 02/13/23 04:01 60 22 96/55 L 98 02/13/23 03:48 84 02/13/23 03:46 80 23 93 02/13/23 03:46 105/64 02/13/23 03:41 112/64 02/13/23 03:41 68 20 112/64 93 02/13/23 03:40 36.5 C 72 30 H 112/64 93 O2 Del Method O2 Flow Rate 02/13/23 08:30 Nasal Cannula 2 02/13/23 07:57 02/13/23 07:23 Nasal Cannula 2 02/13/23 06:00 Nasal Cannula 2 02/13/23 05:30 Nasal Cannula 2 02/13/23 05:00 Nasal Cannula 3 02/13/23 04:30 Nasal Cannula 3 02/13/23 04:01 Room Air 02/13/23 03:48 02/13/23 03:46 02/13/23 03:46 02/13/23 03:41 02/13/23 03:41 02/13/23 03:40 Nasal Cannula 3 Laboratory Results Cardiac Enzymes 02/13/23 Range/Units 03:48 AST 26 (13-39) U/L CBC 02/13/23 Range/Units 03:48 WBC 6.51 (4.8-10.8) K/ul RBC 3.31 L (4.20-5.40) M/uL Hgb 9.5 L (12.0-16.0) g/dl Hct 30.2 L (37.0-47.0) % Plt Count 199 (130-400) K/uL Neut # (Auto) 5.29 (1.40-6.50) K/uL Lymph # (Auto) 0.53 L (1.20-3.40) K/uL Door # (Auto) 0.54 (0.11-0.59) K/uL Eos # (Auto) 0.10 (0.00-0.50) K/uL Baso # (Auto) 0.03 (0.00-0.20) K/uL Comprehensive Metabolic Panel 02/13/23 Range/Units 03:48 Sodium 138 (136-145) mmol/L Potassium 3.3 L (3.5-5.1) mmol/L Chloride 104 (98-107) mmol/L Carbon Dioxide 26 (21-32) mmol/L BUN 21 (6-23) mg/dl Creatinine 0.68 (0.6-1.2) mg/dl Glucose 118 H (70-99(Fasting)) mg/dl Calcium 8.8 (8.6-10.3) mg/dl AST 26 (13-39) U/L ALT 18 (7-52) U/L Alkaline Phosphatase 81 (34-104) U/L Total Protein 7.7 (6.0-8.3) gm/dl Albumin 3.2 L (3.4-5.0) gm/dl Intake and Output 02/12/23 02/13/23 02/13/23 22:59 06:59 14:59 Output Total 550 / 550 Balance -550 / -550 Output: Urine 550 / 550 Other: Weight 61.6 kg 65.1 kg Weight Measurement Method Built in [facility] Built in [facility] Patient Weight 02/14/23 06:59 Weight 65.1 kg Diagnostic Findings ECHO 11/22/22: Left ventricle cavity is small. Severe concentric LVH. EF 60 to 65%. Mild mitral regurgitation. Severe tricuspid regurgitation. Estimated systolic pulmonary pressure is 43 mmHg. Dilated IVC with normal respiratory variation suggestive of right atrial pressure of 8 mmHg. Grade 3 diastolic dysfunction. Medications Administered Current Inpatient Medications Amiodarone HCl (Amiodarone 200 Mg Tab) 200 mg PO BID RYANN Stop: 03/15/23 09:29 Last Admin: 02/13/23 09:57 Dose: 200 mg Cyanocobalamin (Cyanocobalamin (B-12) 500 Mcg Tablet) 1,000 mcg PO QAM RYANN Stop: 03/15/23 09:29 Last Admin: 02/13/23 09:58 Dose: 1,000 mcg Pantoprazole Sodium 40 mg/ (Dextrose) 100 mls @ 20 mls/hr IV Q5H [facility] Stop: 03/15/23 07:29 Last Infusion: 02/13/23 10:39 Dose: 0 mg/hr, 0 mls/hr Piperacillin Sod/Tazobactam (Sod 4.5 gm/ Dextrose) 100 mls @ 25 mls/hr IV Q8H [facility]; Protocol Stop: 02/23/23 11:59 Sodium Chloride (Nss) 250 mls @ 15 mls/hr IV .[id number] PRN PRN Reason: For Transfusion Duration Stop: 02/13/23 18:24 Levothyroxine Sodium (Levothyroxine Sodium 50 Mcg Tablet) 50 mcg PO DAILYBB [facility] Stop: 03/16/23 06:29 Midodrine (Midodrine Hcl 2.5 Mg Tab) 2.5 mg PO TIDM [facility] Stop: 03/15/23 09:29 Last Admin: 02/13/23 09:57 Dose: 2.5 mg Morphine Sulfate (Morphine Sulfate 2 Mg/Ml Carp) 2 mg IV Q3H PRN PRN Reason: Pain Stop: 02/27/23 09:00 Nitroglycerin (Nitroglycerin Sl 0.4 Mg/Tab Tab) 0.4 mg SL Q5M PRN PRN Reason: Chest Pain Stop: 03/15/23 09:00 Ondansetron HCl (Ondansetron Inj 2 Mg/Ml 2 Ml Vial) 4 mg IV Q6H PRN PRN Reason: Nausea Stop: 03/15/23 09:00 Sucralfate (Sucralfate 1 Gm/10 Ml Udc) 1 gm PO QID PRN PRN Reason: Gi Upset Stop: 03/15/23 09:00
--- NOTE | 2023-02-13 08:59 | Gastrointestinal Consultation ---
Date of Consultation February 13, 2023 Assessment & Plan (1) GI bleed: 77 year old female with history of cardiac amyloidosis, a-fib on eliquis, MM, tachy-walker syndrome, gallstones deemed not a candidate for CCY planned EUS- GB drainage and ERCP on 03/12/23 admitted through the ED with nausea, dry heaving, and a single episode of rectal bleeding She was discharged from [facility] this weekend, had 2 repeat endoscopies, large ulcer treated w/ hemospray. NPO Agree with IV PPI Plan for EGD Pending resuts, she may need to be transferred to [facility] No NSAIDs Hold anticoagulations Trend H&H Transfuse PRN Monitor stools. We appreciate assistance in the management of any serological abnormality and corrections to include: hemoglobin >7, INR <2, platelets >50,000, potassium levels >3.5 but <5.3, and sodium levels within 5 points of the reference range prior to endoscopic evaluation. Supervising Physician Co-Signing Physician Notes I saw and evaluated the patient, she has a fairly complex medical history which includes complications related to peptic ulcer disease for which she has undergone several recent upper endoscopy. The patient did have an ERCP performed by my partner several weeks ago for complications related to choledocholithiasis. She is scheduled to have an outpatient procedure for her gallbladder in the near future. The patient presented today with significant hematochezia, she describes having blood in her stool and mixed with the stool. Given her history of peptic ulcer disease with upper endoscopy for further evaluation. If the patient is found to have significant bleeding from her peptic ulcer disease she may need to be referred to a tertiary center with interventional radiology support. I discussed the risks and benefits of the procedure to include bleeding infection perforation pain aspiration and need for follow-up studies. History of Present Illness Reason for Consultation: GI bleed Requesting Physician: Sophia Attending Physician: Ward Cortes MD History of Present Illness 77 year old female with history of cardiac amyloidosis, a-fib on eliquis, MM, tachy-walker syndrome, gallstones deemed not a candidate for CCY planned EUS- GB drainage and ERCP on 03/12/23 admitted through the ED with nausea, dry heaving, and a single episode of rectal bleeding. Notes stool was bright red in color. No black stools. Denies black or bloody emesis. No fever, chills, CP, SOB. HGB 9.5 BUN 21 Denies ETOH EGD 02/06: Normal esophagus. - Non-bleeding gastric ulcer with a clean ulcer base (Dionisio Class III). Biopsied. - Plastic biliary stent in the duodenum. - Return patient to ICU for ongoing care. - Await pathology results. - Use Prilosec (omeprazole) 40 mg PO BID X 8 weeks then once daily. - Repeat upper endoscopy to check healing with Dr. Stuart on 03/12/23 (planned EUS- GB drainage and ERCP) EGD 02/03: Normal esophagus. - An endoclip was found in the stomach. - Clotted blood in the greater curvature of the stomach. - Non-obstructing gastric ulcer with oozing hemorrhage (Dionisio Class Ib). Hemostatic spray applied. Biopsied. - Normal examined duodenum. EGD 02/02: - Hematin (altered blood/[id number]-[id number] material) in the lower third of the esophagus which refluxed from the stomach. No esophageal ulcers or active bleeding.. - Clotted blood in the entire stomach. - There is a large cratered ulceration with clot and concern for perforation at site of ulcer visualized 01/10. The ulcer crater is suspicious for perforation. - No specimens collected. EGD 01/10: - Normal esophagus. - Large hiatal hernia. - A retained endoclip and Padlock clip was found in the stomach. - Non-bleeding gastric ulcer with no stigmata of bleeding. - Normal duodenal bulb and second portion of the duodenum. - No specimens collected. ERCP 01/10: - Choledocholithiasis was found. Complete removal was accomplished by biliary sphincterotomy and balloon extraction. - One plastic biliary stent was placed into the common bile duct. Allergies Allergy/AdvReac Type Severity Reaction Status Date / Time iron Allergy Rash Verified 01/27/23 15:23 Home Medications Medication Instructions Recorded Confirmed Type cyanocobalamin (vitamin B-12) 1,000 mcg PO QAM 05/14/21 02/13/23 History 1,000 mcg tablet (Vitamin B-12) sucralfate 100 mg/mL oral 10 ml PO QID PRN Gi Upset 11/22/22 02/13/23 History suspension amiodarone 200 mg tablet 200 mg PO BID #60 tabs 01/15/23 02/13/23 Rx pantoprazole 40 mg tablet,delayed 40 mg PO BID #60 tabs 01/15/23 02/13/23 Rx release levothyroxine 50 mcg tablet 50 mcg PO QAM 01/27/23 02/13/23 History midodrine 2.5 mg tablet 2.5 mg PO TIDM 01/27/23 02/13/23 History amoxicillin 875 mg-potassium 1 tab PO BIDM #10 tabs 02/01/23 02/13/23 Rx clavulanate 125 mg tablet furosemide 40 mg tablet 80 mg (2 x 40 mg) PO BID #60 tabs 02/01/23 02/13/23 Rx potassium chloride 20 mEq 20 meq PO BID #60 tabs 02/01/23 02/13/23 Rx tablet,extended release(part/cryst) Patient History Medical History GI bleed Dyspnea on exertion Pleural effusion due to CHF (congestive heart failure) Acute on chronic heart failure with preserved ejection fraction (HFpEF) Acute combined systolic and diastolic CHF, NYHA class 3 Acute on chronic diastolic (congestive) heart failure Nausea & vomiting Elevated troponin Chronic diastolic heart failure Cardiac amyloidosis Multiple myeloma Surgical History History of colonoscopy History of tubal ligation Family History Father , 50s Stroke Mother , 90 Coronary heart disease Social History Smoking Status: Never smoker Second Hand Exposure: No; Do You Dip or Chew Tobacco: No; Hx Alcohol Use: No Hx Substance Use: No Preferred Language: Sinhala 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: Effective Manager Produce Required: No Beliefs That Will Affect Care: None marital status: Current Living Situation: Spouse Current Living Situation Comment: with Other Information That Helps Us Care for You: No Feels Safe at Home: Yes Safety Concerns: Feels Safe At This Time Assistive Devices: Oxygen - Continuous Review of Systems Review of Systems: All systems reviewed & are unremarkable except as noted in HPI & below Physical Exam Constitutional: WD/WN, vitals as above Neck: trachea midline Respiratory: normal respiratory effort, lungs clear to auscultation Cardiovascular: Rate/Rhythm: regular rate Gastrointestinal (Abdomen): normal bowel sounds, soft, nontender, no hepatosplenomegaly Skin: no rashes, warm and dry Results & Data Vital Signs (Past 12 Hours) Vital Signs Temp Pulse Pulse Resp BP BP Pulse Ox 02/13/23 08:30 36.4 C L 66 18 104/62 97 02/13/23 07:57 62 99/61 L 98 02/13/23 07:23 62 29 H 119/64 97 02/13/23 06:00 60 22 97/54 L 99 02/13/23 05:30 60 16 104/56 L 100 02/13/23 05:00 65 22 117/64 99 02/13/23 04:30 60 24 111/69 97 02/13/23 04:01 60 22 96/55 L 98 02/13/23 03:48 84 02/13/23 03:46 80 23 93 02/13/23 03:46 105/64 02/13/23 03:41 112/64 02/13/23 03:41 68 20 112/64 93 02/13/23 03:40 36.5 C 72 30 H 112/64 93 O2 Del Method O2 Flow Rate 02/13/23 08:30 Nasal Cannula 2 02/13/23 07:57 02/13/23 07:23 Nasal Cannula 2 02/13/23 06:00 Nasal Cannula 2 02/13/23 05:30 Nasal Cannula 2 02/13/23 05:00 Nasal Cannula 3 02/13/23 04:30 Nasal Cannula 3 02/13/23 04:01 Room Air 02/13/23 03:48 02/13/23 03:46 02/13/23 03:46 02/13/23 03:41 02/13/23 03:41 02/13/23 03:40 Nasal Cannula 3 Laboratory Results 02/13/23 02/13/23 02/13/23 Range/Units Unknown 06:10 04:07 WBC (4.8-10.8) K/ul RBC (4.20-5.40) M/uL Hgb (12.0-16.0) g/dl Hct (37.0-47.0) % MCV (80.0-100.0) fL MCH (25.0-34.0) pg MCHC (32.0-36.0) g/dL RDW Std Deviation (36.4-46.3) fL RDW Coeff of Nasir (11.5-14.5) % Plt Count (130-400) K/uL MPV (9.4-12.4) fL Immature Gran % (Auto) % Neut % (Auto) % Lymph % (Auto) % [place] % (Auto) % Eos % (Auto) % Baso % (Auto) % Neut # (Auto) (1.40-6.50) K/uL Lymph # (Auto) (1.20-3.40) K/uL [place]oun # (Auto) (0.11-0.59) K/uL Eos # (Auto) (0.00-0.50) K/uL Baso # (Auto) (0.00-0.20) K/uL Immature Gran # (Auto) (0.01-0.20) K/uL Sodium (136-145) mmol/L Potassium (3.5-5.1) mmol/L Chloride (98-107) mmol/L Carbon Dioxide (21-32) mmol/L Anion Gap (3-11) BUN (6-23) mg/dl Creatinine (0.6-1.2) mg/dl Est Cr Clr Drug Dosing ml/min Est GFR ( Amer) ml/min Est GFR (Non-Af Amer) ml/min BUN/Creatinine Ratio (10-20) Glucose (70-99(Fasting)) mg/dl Calcium (8.6-10.3) mg/dl Total Bilirubin (0.2-1.0) mg/dl AST (13-39) U/L ALT (7-52) U/L Alkaline Phosphatase (34-104) U/L Total Protein (6.0-8.3) gm/dl Albumin (3.4-5.0) gm/dl Globulin (2.5-4.0) gm/dl Albumin/Globulin Ratio (0.9-2) Lipase (11-82) U/L Urine Color Yellow Urine Appearance Clear (Clear) Urine pH 7.5 (4.5-7.5) Ur Specific [place] 1.025 (1.000-1.030) Urine Protein Negative (Negative) Urine Glucose (UA) Negative (Negative) Urine Ketones Negative (Negative) Urine Blood 3+ H (Negative) Urine Nitrite Negative (Negative) Urine Bilirubin Negative (Negative) Urine Urobilinogen Negative (Negative) Ur Leukocyte Esterase Trace H (Negative) Urine WBC (Auto) 1-5 (0-5) /hpf Urine RBC (Auto) 10-30 H (0-4) /hpf U Hyaline Cast (Auto) 1-5 (0-5) /lpf U Epithel Cells (Auto) >30 H (0-5) /lpf Urine Bacteria (Auto) Negative (Negative) SARS-CoV-2, RNA, NAAT NEGATIVE (NEGATIVE) Blood Type O Positive Antibody Screen NEGATIVE Crossmatch See Detail 02/13/23 Range/Units 03:48 WBC 6.51 (4.8-10.8) K/ul RBC 3.31 L (4.20-5.40) M/uL Hgb 9.5 L (12.0-16.0) g/dl Hct 30.2 L (37.0-47.0) % MCV 91.2 (80.0-100.0) fL MCH 28.7 (25.0-34.0) pg MCHC 31.5 L (32.0-36.0) g/dL RDW Std Deviation 54.9 H (36.4-46.3) fL RDW Coeff of Nasir 17.2 H (11.5-14.5) % Plt Count 199 (130-400) K/uL MPV 11.2 (9.4-12.4) fL Immature Gran % (Auto) 0.3 % Neut % (Auto) 81.3 % Lymph % (Auto) 8.1 % [place]oun % (Auto) 8.3 % Eos % (Auto) 1.5 % Baso % (Auto) 0.5 % Neut # (Auto) 5.29 (1.40-6.50) K/uL Lymph # (Auto) 0.53 L (1.20-3.40) K/uL [place] # (Auto) 0.54 (0.11-0.59) K/uL Eos # (Auto) 0.10 (0.00-0.50) K/uL Baso # (Auto) 0.03 (0.00-0.20) K/uL Immature Gran # (Auto) 0.02 (0.01-0.20) K/uL Sodium 138 (136-145) mmol/L Potassium 3.3 L (3.5-5.1) mmol/L Chloride 104 (98-107) mmol/L Carbon Dioxide 26 (21-32) mmol/L Anion Gap 8 (3-11) BUN 21 (6-23) mg/dl Creatinine 0.68 (0.6-1.2) mg/dl Est Cr Clr Drug Dosing 58.2 ml/min Est GFR ( Amer) 98.5 ml/min Est GFR (Non-Af Amer) 85.0 ml/min BUN/Creatinine Ratio 30.9 H (10-20) Glucose 118 H (70-99(Fasting)) mg/dl Calcium 8.8 (8.6-10.3) mg/dl Total Bilirubin 0.8 (0.2-1.0) mg/dl AST 26 (13-39) U/L ALT 18 (7-52) U/L Alkaline Phosphatase 81 (34-104) U/L Total Protein 7.7 (6.0-8.3) gm/dl Albumin 3.2 L (3.4-5.0) gm/dl Globulin 4.5 H (2.5-4.0) gm/dl Albumin/Globulin Ratio 0.7 L (0.9-2) Lipase 11 (11-82) U/L Urine Color Urine Appearance (Clear) Urine pH (4.5-7.5) Ur Specific [place] (1.000-1.030) Urine Protein (Negative) Urine Glucose (UA) (Negative) Urine Ketones (Negative) Urine Blood (Negative) Urine Nitrite (Negative) Urine Bilirubin (Negative) Urine Urobilinogen (Negative) Ur Leukocyte Esterase (Negative) Urine WBC (Auto) (0-5) /hpf Urine RBC (Auto) (0-4) /hpf U Hyaline Cast (Auto) (0-5) /lpf U Epithel Cells (Auto) (0-5) /lpf Urine Bacteria (Auto) (Negative) SARS-CoV-2, RNA, NAAT (NEGATIVE) Blood Type Antibody Screen Crossmatch
[2023-02-13] MEDS ORDERED: ONDANSETRON INJ 2 MG/ML 2 ML VIAL IV PRN (09:01)
[2023-02-13] MEDS ORDERED: NITROGLYCERIN SL 0.4 MG/TAB TAB SL PRN (09:01)
[2023-02-13] MEDS ORDERED: SUCRALFATE 1 GM/10 ML UDC PO PRN (09:01)
[2023-02-13] MEDS: PANTOprazole 40 MG in DEXTROSE 5% MINI-B 100 ML IV SCH ×3 (09:14→20:59)
[2023-02-13] MEDS: POTASSIUM CHLORIDE / WTR 10 MEQ/100 ML PLCT IV SCH ×4 (09:14→16:27)
[2023-02-13] MEDS: AMIODARONE 200 MG TAB PO SCH ×2 (09:57→21:28)
[2023-02-13] MEDS: MIDODRINE HCL 2.5 MG TAB PO SCH ×3 (09:57→16:27)
[2023-02-13] MEDS: CYANOCOBALAMIN (B-12) 500 MCG TABLET PO SCH (09:58)
[2023-02-13 10:04] LABS: Hematocrit (blood only) 29.3 % (37.0-47.0); Hemoglobin 9.1 g/dl (12.0-16.0)
[2023-02-13] MEDS ORDERED: LIDOCAINE 2% 2 ML VIAL/AMP(20MG/ML) INFIL ONE (11:25)
[2023-02-13] MEDS ORDERED: PROPOFOL IV EMULSION 10 MG/ML 20 ML VIAL IV ONE (11:25)
--- NOTE | 2023-02-13 11:31 | Anesthesiology Consultation ---
Date of Service February 13, 2023 Assessment & Plan Chart Review Chart Review: Acceptable Risk for Surgery and Patient NOT seen in Pre Admission Testing Consults Requested none ASA [id number] Proposed Anesthesia Anesthesia Type: MAC Risk / Benefits Reviewed With: PT / POA / Parent / Guardian, Accepts Plan and Informed Consent Obtained History Surgery Operation Date: 02/13/23 17:00 Proposed Procedures p Esophagogastroduodenoscopy Dr Andrea Mendez, DO Height/Weight Height: 5 ft 3 in Weight: 65.1 kg Allergies Allergy/AdvReac Type Severity Reaction Status Date / Time iron Allergy Rash Verified 01/27/23 15:23 Medications Home Medications Medication Instructions Recorded Confirmed Last Taken cyanocobalamin (vitamin B-12) 1,000 mcg PO QAM 05/14/21 02/13/23 01/07/23 1,000 mcg tablet (Vitamin B-12) sucralfate 100 mg/mL oral 10 ml PO QID PRN Gi Upset 11/22/22 02/13/23 02/12/23 suspension amiodarone 200 mg tablet 200 mg PO BID #60 tabs 01/15/23 02/13/23 02/12/23 pantoprazole 40 mg tablet,delayed 40 mg PO BID #60 tabs 01/15/23 02/13/23 02/12/23 release levothyroxine 50 mcg tablet 50 mcg PO QAM 01/27/23 02/13/23 02/12/23 midodrine 2.5 mg tablet 2.5 mg PO TIDM 01/27/23 02/13/23 02/12/23 amoxicillin 875 mg-potassium 1 tab PO BIDM #10 tabs 02/01/23 02/13/23 Unknown clavulanate 125 mg tablet furosemide 40 mg tablet 80 mg (2 x 40 mg) PO BID #60 tabs 02/01/23 02/13/23 02/12/23 potassium chloride 20 mEq 20 meq PO BID #60 tabs 02/01/23 02/13/23 02/12/23 tablet,extended release(part/cryst) Active Medications Generic Name Dose Route Start Last Admin Trade Name Freq PRN Reason Stop Dose Admin Amiodarone HCl 200 mg 02/13/23 09:30 02/13/23 09:57 Amiodarone 200 Mg Tab PO 03/15/23 09:29 200 mg BID RYANN Administration Cyanocobalamin 1,000 mcg 02/13/23 09:30 02/13/23 09:58 Cyanocobalamin (B-12) 500 Mcg Tablet PO 03/15/23 09:29 1,000 mcg QAM RYANN Administration Pantoprazole Sodium 40 mg/ 100 mls @ 20 mls/hr 02/13/23 07:30 02/13/23 10:39 Dextrose IV 03/15/23 07:29 0 mg/hr Q5H RYANN 0 mls/hr Infusion 8 MG/HR Midodrine 2.5 mg 02/13/23 09:30 02/13/23 09:57 Midodrine Hcl 2.5 Mg Tab PO 03/15/23 09:29 2.5 mg TIDM RYANN Administration NPO Date Last Intake of Fluids: 02/13/23 Time Last Intake of Fluids: 02:30 Date Last Intake of Solids: 02/12/23 Time Last Intake of Solids: 08:00 Past Medical History Medical History GI bleed Dyspnea on exertion Pleural effusion due to CHF (congestive heart failure) Acute on chronic heart failure with preserved ejection fraction (HFpEF) Acute combined systolic and diastolic CHF, NYHA class 3 Acute on chronic diastolic (congestive) heart failure Nausea & vomiting Elevated troponin Chronic diastolic heart failure Cardiac amyloidosis Multiple myeloma Exercise / Class Metabolic Activity III < 4 Walking/Shop/Light housework Past Family History Family History Father , 50s Stroke Mother , 90 Coronary heart disease Past Surgical History Surgical History History of colonoscopy History of tubal ligation Past Anesthesia History No Hx of Anesthesia Complications and No Family Hx of Anesthesia Complications Social History Smoking Status: Never smoker Do You Dip or Chew Tobacco: No Hx Alcohol Use: No Hx Substance Use: No substance use type: does not use Review of Systems ROS Unobtainable: All systems reviewed & are unremarkable except as noted in HPI & below Physical Exam Vital Signs Last Vital Signs Temp 36.3 C L 02/13/23 11:05 Pulse 63 02/13/23 11:05 Resp 16 02/13/23 11:05 BP 108/62 02/13/23 11:05 Pulse Ox 96 02/13/23 11:05 O2 Del Method Nasal Cannula 02/13/23 11:05 O2 Flow Rate 2 02/13/23 11:05 ENMT Mouth: no TMJ abnormality Thyromental Distance: > or= 3.5 Finger Breadths Mallampati Class: II Neck normal visual inspection and trachea midline; neck extension not limited Respiratory normal respiratory effort Auscultation: lungs clear to auscultation bilaterally Cardiovascular Rate/Rhythm: regular rate and regular rhythm Heart Sounds: no murmur Musculoskeletal Spine: normal cervical ROM Extremities: full ROM of extremities Neurologic moves all extremities Psychiatric Orientation: alert and oriented x 3 Testing Laboratory Results 02/13/23 09:46 02/13/23 03:48 Urine Color Yellow 02/13/23 06:10 Urine Appearance Clear (Clear) 02/13/23 06:10 Urine pH 7.5 (4.5-7.5) 02/13/23 06:10 Ur Specific [place] 1.025 (1.000-1.030) 02/13/23 06:10 Urine Protein Negative (Negative) 02/13/23 06:10 Urine Glucose (UA) Negative (Negative) 02/13/23 06:10 Urine Ketones Negative (Negative) 02/13/23 06:10 Urine Nitrite Negative (Negative) 02/13/23 06:10 Ur Leukocyte Esterase Trace (Negative) H 02/13/23 06:10 Urine WBC (Auto) 1-5 /hpf (0-5) 02/13/23 06:10 Urine RBC (Auto) 10-30 /hpf (0-4) H 02/13/23 06:10 U Hyaline Cast (Auto) 1-5 /lpf (0-5) 02/13/23 06:10 U Epithel Cells (Auto) >30 /lpf (0-5) H 02/13/23 06:10 Urine Bacteria (Auto) Negative (Negative) 02/13/23 06:10 Blood Type O Positive 02/13/23 04:07 Antibody Screen NEGATIVE 02/13/23 04:07
[2023-02-13] MEDS ORDERED: BENZOCAINE/TETRACAIN/BUTAM 50 APPLN/5 GM CAN EXT ONE (11:52)
[2023-02-13] MEDS ORDERED: PHENYLEPHRINE 100MCG/ML 5ML SYR ONE (11:52)
--- NOTE | 2023-02-13 11:53 | Communication Note ---
Date of Service: February 13, 2023 The patient underwent upper endoscopy today, this was notable for a large hiatal hernia with Elías's erosions in addition to a large healing gastric ulcer noted along the greater curvature of the stomach. No active bleeding seen. Review of the CT does indicate a large amount of stool in the colon and a question of fecal impaction. Perhaps the patient has a stercoral ulcer as a cause of her hematochezia. Recommendations fleets enema every 4 hours bowel preparation tonight we will plan for colonoscopy on Friday
--- NOTE | 2023-02-13 11:59 | GI REPORT ---
Patient Name: Anel Hogue Procedure Date: 02/13/2023 11:27 AM Date of : 1945 Admit Type: Inpatient Age: 77 Gender: Female Attending MD: Blu Mendez DO, Procedure: Upper GI endoscopy Providers: Blu Mendez DO Referring MD: Deondre Rivero Indications: Hematochezia Medicines: Monitored Anesthesia Care Complications: No immediate complications. Estimated blood loss: Minimal. Estimated Blood Loss: Estimated blood loss was minimal. Procedure: Pre-Anesthesia Assessment: - Prior to the procedure, a History and Physical was performed, and patient medications, allergies and sensitivities were reviewed. The patient's tolerance of previous anesthesia was reviewed. - The risks and benefits of the procedure and the sedation options and risks were discussed with the patient. All questions were answered and informed consent was obtained. - Patient identification and proposed procedure were verified prior to the procedure by the physician, the nurse and the chair pad maker. The procedure was verified in the procedure room. - Pre-procedure physical examination revealed no contraindications to sedation. - ASA Grade Assessment: III - A patient with severe systemic disease. - After reviewing the risks and benefits, the patient was deemed in satisfactory condition to undergo the procedure. - The anesthesia plan was to use monitored anesthesia care (MAC). - Immediately prior to administration of medications, the patient was re-assessed for adequacy to receive sedatives. - The heart rate, respiratory rate, oxygen saturations, blood pressure, adequacy of pulmonary ventilation, and response to care were monitored throughout the procedure. - The physical status of the patient was re-assessed after the procedure. After obtaining informed consent, the endoscope was passed under direct vision. Throughout the procedure, the patient's blood pressure, pulse, and oxygen saturations were monitored continuously. The Endoscope was introduced through the mouth, and advanced to the third part of duodenum. The upper GI endoscopy was accomplished without difficulty. The patient tolerated the procedure well. Findings: The upper third of the esophagus and middle third of the esophagus were normal. A mild Schatzki ring was found at the gastroesophageal junction. A large hiatal hernia with multiple Elías ulcers was found. The proximal extent of the gastric folds (end of tubular esophagus) was 33 cm from the incisors. The hiatal narrowing was 40 cm from the incisors. The Z-line was 33 cm from the incisors. One non-obstructing non-bleeding gastric ulcer of significant severity with no stigmata of bleeding was found in the gastric body. The lesion was 30 mm in largest dimension. The examined duodenum was normal. Impression: - Normal upper third of esophagus and middle third of esophagus. - Mild Schatzki ring. - Large hiatal hernia with multiple Elías ulcers. - Non-obstructing non-bleeding gastric ulcer with no stigmata of bleeding. - Normal examined duodenum. - No specimens collected. Recommendation: - [facility]. - Perform a colonoscopy at appointment to be scheduled. - For continued healing of the large gastric ulcer, the patient should continue use of a proton pump inhibitor, avoid use nonsteroidals and continue Carafate 4 times daily. - Would recommend holding anticoagulation for the present time. Blu Mendez D.O. Blu Mendez, 02/13/2023 11:58:43 AM This report has been signed electronically. Note Initiated On: 02/13/2023 11:27 AM Number of Addenda: 0 I attest to the content of the Intraoperative Record and orders documented therein, exceptions below {[id number]}
--- NOTE | 2023-02-13 13:20 | Anesthesiology Progress Note ---
Date of Service February 13, 2023 Anesthesia Post Procedure Vital Signs Vital Signs: Temp Pulse Pulse Resp BP BP Pulse Ox 02/13/23 13:15 36.4 C L 60 18 105/60 95 02/13/23 12:27 60 18 100/60 98 02/13/23 12:11 60 16 105/59 L 99 02/13/23 11:55 63 16 98/58 L 98 02/13/23 11:05 36.3 C L 63 16 108/62 96 02/13/23 08:30 36.4 C L 66 18 104/62 97 02/13/23 08:00 74 02/13/23 07:57 62 99/61 L 98 02/13/23 07:23 62 29 H 119/64 97 02/13/23 06:00 60 22 97/54 L 99 02/13/23 05:30 60 16 104/56 L 100 02/13/23 05:00 65 22 117/64 99 02/13/23 04:30 60 24 111/69 97 02/13/23 04:01 60 22 96/55 L 98 02/13/23 03:48 84 02/13/23 03:46 80 23 93 02/13/23 03:46 105/64 02/13/23 03:41 112/64 02/13/23 03:41 68 20 112/64 93 02/13/23 03:40 36.5 C 72 30 H 112/64 93 O2 Del Method O2 Flow Rate 02/13/23 13:15 Nasal Cannula 2 02/13/23 12:27 Nasal Cannula 2 02/13/23 12:11 Nasal Cannula 2 02/13/23 11:55 Nasal Cannula 2 02/13/23 11:05 Nasal Cannula 2 02/13/23 08:30 Nasal Cannula 2 02/13/23 08:00 02/13/23 07:57 02/13/23 07:23 Nasal Cannula 2 02/13/23 06:00 Nasal Cannula 2 02/13/23 05:30 Nasal Cannula 2 02/13/23 05:00 Nasal Cannula 3 02/13/23 04:30 Nasal Cannula 3 02/13/23 04:01 Room Air 02/13/23 03:48 02/13/23 03:46 02/13/23 03:46 02/13/23 03:41 02/13/23 03:41 02/13/23 03:40 Nasal Cannula 3 Pain Intensity Abdomen: Pain Intensity: 8 Transfer of Care Handoff Completed per policy Notes Mental Status: alert / awake / arousable Patient Amnestic to Procedure: Yes Nausea / Vomiting: adequately controlled Pain: adequately controlled Airway Patency, RR, SpO2: stable & adequate BP & HR: stable & adequate Hydration State: stable & adequate Anesthetic Complications: no major complications apparent and Pt Satisfied with anesthetic care
[2023-02-13] MEDS: PIPERACILLIN/TAZOBACTAM 4.5 GM in DEXTROSE 5% MINI-B 100 ML IV SCH ×2 (14:52→20:59)
[2023-02-13] MEDS ORDERED: LAVAGE SOLUTION 4000ML PO SCH (15:00)
[2023-02-13] MEDS ORDERED: FUROSEMIDE 40 MG/4 ML VIAL IV ONE (15:06)
[2023-02-13] MEDS ORDERED: POTASSIUM CHLORIDE CRTAB 20 MEQ TABCR PO STA (15:06)
--- NOTE | 2023-02-13 15:35 | Electrocardiogram Report ---
Test Reason : Blood Pressure : / mmHG Vent. Rate : 089 BPM Atrial Rate : 060 BPM P-R Int : 000 ms QRS Dur : 118 ms QT Int : 226 ms P-R-T Axes : 000 043 218 degrees QTc Int : 274 ms AV dual-paced rhythm with frequent ventricular-paced complexes Abnormal ECG When compared with ECG of 13-FEB-2023 03:37, No significant change was found Confirmed by Chun Jamison ([id number]) on 02/13/2023 3:35:12 PM Referred By: REFERRED SELF Confirmed By:Chun Jamison
--- NOTE | 2023-02-13 16:46 | Hospitalist Progress Note ---
Date of Service February 13, 2023 Assessment & Plan (1) Acute GI bleeding: Plan: Patient is a 77 yr female with H/O chronic diastolic CHF, idiopathic cardiomyopathy, cardiac amyloidosis, tachybradycardia syndrome s/p pacemaker, left ventricle hypertrophy, chronic atrial fibrillation, acute gastric ulcer with hemorrhage, multiple myeloma s/p chemo, hemorrhagic shock presents with GI bleed. Patient was admitted on January 07, 2023 with A-fib and biliary colic. She also found to have tachybradycardia syndrome and s/p pacemaker on January 13. Postprocedure had small pneumothorax. She also s/p ERCP for choledocholithiasis s/p 1 plastic biliary stent was placed in the common bile duct and plan was to repeat ERCP in 2 months to remove the stent and possible axios stent placement. EGD done showed nonbleeding gastric ulcers. Patient was again admitted on January 27, 2023 for acute on chronic heart failure with preserved ejection fraction and pleural effusion. Seen by pulmonary but as there was no significant hypoxia thoracocentesis was not done. Was treated with IV diuretics. Pacemaker interrogation was done which showed stable thresholds.Her Eliquis restarted January given risk of stroke with atrial fibrillation and amyloidosis and she was discharged on February 01. On February 02 she was admitted for GI bleed, looks like she had history of gastric ulcer requiring Endo Clip in September 2021.She was having hematemesis and also rect al bleed during February 02 admission. Significant hematemesis in the ER. Seems filled whole emesis basin full of bright red blood .Had hypotension and an episode of syncope. Massive transfusion protocol was initiated and she received Kcentra , FFP and as well as TXA. Received 2 units of PRBC . Patient had emergent EGD. EGD revealed large cratered ulcer in the gastric antrum which was significantly increased in size when compared to prior EGD along with stigmata of recent bleeding. Received IV Rocephin for Klebsiella urine culture from January 27. Patient was seen by the critical care. Patient also seen by general surgery and because of her cardiac issues recommended transfer to tertiary care.Patient was transferred to [facility] for large cratered gastric antral ulcer concern for impending perforation. As per patient at [facility] she had EGD and ulcer was sprayed and had another EGD. She was monitored in the ICU. As per epic patient had EGD on February 03 which showed nonobstructing gastric ulcer with oozing hemorrhage .Hemostatic spray applied. And returned to ICU for repeat EGD in 1 to 2 days. Patient had repeat EGD on February 06. Nonbleeding gastric ulcer with a clean ulcer base was found. And advised for omeprazole 40 mg p.o. twice daily for 8 weeks and to repeat EGD to check healing seems to be done when EUS with gallbladder drainage and ERCP planned. Patient was discharged last Friday to home. Patient states after going home she was feeling very weak and tired. Mostly bedbound. Having abdominal pain. Poor appetite. Tonight again she had a bloody bowel movement which prompted her to come to the ER. Hemoccult was positive in the ER. Hemoglobin is 9.5. Acute GI bleeding ? Secondary to bleeding peptic ulcers H/O peptic ulcer disease Constipation/? Possible fecal impaction --S/P EGD:Normal upper third of esophagus and middle third of esophagus. Mild Schatzki ring. Large hiatal hernia with multiple Elías ulcers. Non-obstructing non-bleeding gastric ulcer with no stigmata of bleeding. Normal examined duodenum. No specimens collected. --CT ABD: Patient is status post internalized biliary stent with proximal coil at the hepatic hilum and distal coil within the duodenum. Moderate volume mesenteric volume of abdominal and pelvic ascites. Previously noted soft tissue mass within the stomach is not visualized. If there is further concern for ulcer, consider direct inspection or fluoroscopic imaging. Findings suspicious for systemic volume overload with large bilateral pleural effusions, moderate mesenteric ascites, and anasarca. Rectal vault distention measuring 6.4 cm. No evidence of adjacent stranding. Stercoral colitis is less likely. Consider disimpaction. Diffuse gallbladder wall thickening with adjacent stranding. Findings may be due to volume overload or low protein state. If there is further concern for cholecystitis, consider HIDA imaging. No other acute findings. -- Monitor H&H and transfuse PRBCs as needed Continue IV Protonix, Carafate Appreciate GI input Empirically on Zosyn N.p.o. after midnight for colonoscopy tomorrow Continue mass enema Anasarca --CXR:Increase in size of a large left pleural effusion. Slight increase in a small right pleural effusion. Cardiomegaly with mild interstitial pulmonary edema. -- CT abdomen as above --ECHO pending -- Pulmonology consulted for possible thoracentesis Monitor volume status closely Cardiology following as well Diuretics use limited given low BP, active GI bleed Continue supplemental oxygen Hypokalemia Replete electrolytes as needed Monitor Heart failure with preserved ejection fraction Cardiac amyloidosis --Recently started on supplemental oxygen--2 L Resume lasix as able Monitor volume status Cardiology consulted Echo pending Chronic hypotension Continue midodrine Monitor BP History of A-fib Tachybradycardia syndrome S/p pacemaker Continue Amiodarone Eliquis on hold due to GI bleed H/O choledocholithiasis S/P biliary sphincterotomy and balloon extraction, plastic biliary stent placement in the common bile duct on 01/10/2023. Plan for repeat ERCP for stent removal --2 months from stent placement Also plan for endoscopic ultrasound-guided gallbladder drainage using axios stent as patient was deemed to be nonsurgical candidate at the time. Normal LFTs History of multiple myeloma s/p chemo Follow-up with heme-onc Hypothyroidism TSH pending Continue levothyroxine DVT Px: SCDs Re: GI bleed Code Status Full code Admission and Anticipated Discharge Date Admission Date: February 13, 2023 Subjective Patient is seen and examined at bedside States having chest, abdominal pain Plan for EGD today Reports last bloody bowel movement this morning at around 2:30 AM Also reports dyspnea, orthopnea and mild cough Discussed with cardiology and pulmonology today No other complaints Review of Systems Review of Systems: All systems reviewed & are unremarkable except as noted in Subjective Physical Exam Physical Exam: Physical Exam: Vitals signs as noted above General Appearance:Thin, frail, no apparent distress, Ill appearing Head: normocephalic, Atraumatic Eyes: normal inspection, EOMI Neck: supple, Trachea midline Respiratory/Chest: Decreased breath sounds, CTA, No accessory muscle use Cardiovascular: S1, S2, No murmur Abdomen/GI:Soft, distended, mild tender, Bowel sounds present Extremities/Musculoskeletal:normal inspection, no edema Neurologic/Psych:AAOX3, grossly no focal neurological deficits Skin: normal color, warm Results & Data Results & Data Vital Signs (Past 12 Hours) Vital Signs Temp Pulse Pulse Resp BP BP Pulse Ox 02/13/23 15:23 66 02/13/23 15:06 36.6 C 65 18 100/66 96 02/13/23 13:46 36.5 C 60 18 105/66 96 02/13/23 13:15 36.4 C L 60 18 105/60 95 02/13/23 12:27 60 18 100/60 98 02/13/23 12:11 60 16 105/59 L 99 02/13/23 11:55 63 16 98/58 L 98 02/13/23 11:05 36.3 C L 63 16 108/62 96 02/13/23 08:30 36.4 C L 66 18 104/62 97 02/13/23 08:00 74 02/13/23 07:57 62 99/61 L 98 02/13/23 07:23 62 29 H 119/64 97 02/13/23 06:00 60 22 97/54 L 99 02/13/23 05:30 60 16 104/56 L 100 02/13/23 05:00 65 22 117/64 99 02/13/23 04:30 60 24 111/69 97 O2 Del Method O2 Flow Rate 02/13/23 15:23 02/13/23 15:06 Nasal Cannula 2 02/13/23 13:46 Nasal Cannula 2 02/13/23 13:15 Nasal Cannula 2 02/13/23 12:27 Nasal Cannula 2 02/13/23 12:11 Nasal Cannula 2 02/13/23 11:55 Nasal Cannula 2 02/13/23 11:05 Nasal Cannula 2 02/13/23 08:30 Nasal Cannula 2 02/13/23 08:00 02/13/23 07:57 02/13/23 07:23 Nasal Cannula 2 02/13/23 06:00 Nasal Cannula 2 02/13/23 05:30 Nasal Cannula 2 02/13/23 05:00 Nasal Cannula 3 02/13/23 04:30 Nasal Cannula 3 Laboratory Results Short CBC 02/13/23 02/13/23 Range/Units 03:48 09:46 WBC 6.51 (4.8-10.8) K/ul Hgb 9.5 L 9.1 L (12.0-16.0) g/dl Hct 30.2 L 29.3 L (37.0-47.0) % Plt Count 199 (130-400) K/uL BMP 02/13/23 03:48 Sodium 138 Potassium 3.3 L Chloride 104 Carbon Dioxide 26 BUN 21 Creatinine 0.68 Glucose 118 H Calcium 8.8 Liver Function 02/13/23 Range/Units 03:48 Total Bilirubin 0.8 (0.2-1.0) mg/dl AST 26 (13-39) U/L ALT 18 (7-52) U/L Alkaline Phosphatase 81 (34-104) U/L Albumin 3.2 L (3.4-5.0) gm/dl Urine 02/13/23 Range/Units 06:10 Urine Color Yellow Urine Appearance Clear (Clear) Urine pH 7.5 (4.5-7.5) Ur Specific [place] 1.025 (1.000-1.030) Urine Protein Negative (Negative) Urine Glucose (UA) Negative (Negative)
--- NOTE | 2023-02-13 16:55 | Procedure Note ---
Procedure Note Date of Service February 13, 2023 Note left thoracentesis with ultrasound guidance Indication: large left pleural effusion I wore a surgical cap, mask, and sterile gloves throughout the procedure. The patient was prepped and draped in a sterile manner using chlorhexidine scrub after the appropriate level was percussed and confirmed by ultrasound. 1% lidocaine was used to anesthesize the skin, subcutaneous tissue, superior aspect of the rib periosteum and parietal pleura. A finder needle was then introduced over the superior aspect of the rib to locate the pleural fluid; turbid brown colored fluid was aspirated at a depth of approximately 3 cm. A 10-blade scalpel was used to yelena the skin at the insertion site. The arrow thoracentesis needle was then introduced through the skin incision into the pleural space using negative aspiration pressure. The thoracentesis catheter was then threaded without difficulty. 1400 ml of brown colored fluid was removed without difficulty. The catheter was then removed. No immediate complications were noted during the procedure. A post-procedure chest x-ray is pending at the time of this note. The fluid will be sent for studies. Estimated blood loss is 2cc. Coding
[2023-02-13 17:03] LABS: Hematocrit (blood only) 32.7 % (37.0-47.0); Hemoglobin 9.7 g/dl (12.0-16.0)
[2023-02-13 17:37] LABS: Thyroid Stimulating Hormone 11.627 uIu/ml (0.300-4.500)
[2023-02-13 18:12] LABS: T4 Free Thyroxine 1.44 ng/dl (0.61-1.60)
--- NOTE | 2023-02-13 18:39 | Pulmonary Consultation ---
Date of Consultation February 13, 2023 Assessment & Plan (1) Acute GI bleeding: (2) Pleural effusion due to CHF (congestive heart failure): (3) Atrial fibrillation: Atrial fibrillation type: paroxysmal Qualified Code(s): I48.0 - Paroxysmal atrial fibrillation (4) Pleural effusion: (5) Cardiac amyloidosis: (6) Multiple myeloma: Multiple myeloma remission status: unspecified Qualified Code(s): C90.00 - Multiple myeloma not having achieved remission (7) Ascites: Ascites type: other type Qualified Code(s): R18.8 - Other ascites Plan 77 year old female with multiple medical problems including MM, cardiac amylo idosis, anasarca, recurrent pleural effusions, and UGIB presents with BRBPR. She has a recent complicated hospitalization history most recently discharged from [facility] less than a week ago. 1. GIB - s/p EGD today. on protonix. plan for colonoscopy in AM. 2. bilateral pleural effusion, L>R - s/p left thoracentesis today. Follow up fluid studies. 3. anasarca - including ascites, small to moderate amount on CT. She needs diuresis but this is on hold because of hypotension in setting of bleeding. 4. Hypotension - increase midodrine. Add albumin. 5. afib - amio. AC on hold. 6. cardiac amyloidosis Discussed with primary, cardiology, and RN. History of Present Illness Attending Physician: Ward Cortes MD History of Present Illness 77-year-old female with diastolic CHF, cardiac amyloidosis, tachybradycardia syndrome s/p pacemaker, left ventricle hypertrophy, chronic atrial fibrillation, acute gastric ulcer with hemorrhage, multiple myeloma s/p chemo, presents with GI bleed. Patient was admitted on January 07, 2023 with A-fib and biliary colic. She also found to have tachybradycardia syndrome and s/p pacemaker on January 13. Postprocedure had small pneumothorax. She also s/p ERCP for choledocholithiasis s/p 1 plastic biliary stent was placed in the common bile duct and plan was to repeat ERCP in 2 months to remove the stent and possible axios stent placement. EGD done showed nonbleeding gastric ulcers. Patient was again admitted on January 27, 2023 for acute on chronic heart failure with preserved ejection fraction and pleural effusion. Seen by pulmonary but as there was no significant hypoxia thoracocentesis was not done. Was treated with IV diuretics. Her Eliquis restarted January given risk of stroke with atrial fibrillation and amyloidosis and she was discharged on February 01. On February 02 she was admitted for GI bleed. Massive transfusion protocol was initiated and she received Kcentra , FFP and as well as TXA. Received 2 units of PRBC . Patient had emergent EGD revealed large cratered ulcer in the gastric antrum which was significantly increased in size when compared to prior EGD along with stigmata of recent bleeding. Received IV Rocephin for Klebsiella urine culture from January 27. Patient was transferred to [facility] for large cratered gastric antral ulcer concern for impending perforation. As per epic patient had EGD on February 03 which showed nonobstructing gastric ulcer with oozing hemorrhage .Hemostatic spray applied. And returned to ICU for repeat EGD in 1 to 2 days. Patient had repeat EGD on February 06. Nonbleeding gastric ulcer with a clean ulcer base was found. And advised for omeprazole 40 mg and to repeat EGD to be done when EUS with gallbladder drainage and ERCP planned. Patient was discharged last Friday. Patient states after going home she was feeling very weak and tired. Mostly bedbound. Having abdominal pain. Poor appetite. Tonight again she had a bloody bowel movement which prompted her to come to the ER. CT abdomen pelvis showing lateral pleural effusions and anasarca ascites. EGD done today which showed mild schatzki ring, large hiatal hernia, and non- bleeding gastric ulcer. She was also evaluated by cardiology for known advanced cardiac amyloid. Allergies Allergy/AdvReac Type Severity Reaction Status Date / Time iron Allergy Rash Verified 01/27/23 15:23 Home Medications Medication Instructions Recorded Confirmed Type cyanocobalamin (vitamin B-12) 1,000 mcg PO QAM 05/14/21 02/13/23 History 1,000 mcg tablet (Vitamin B-12) sucralfate 100 mg/mL oral 10 ml PO QID PRN Gi Upset 11/22/22 02/13/23 History suspension amiodarone 200 mg tablet 200 mg PO BID #60 tabs 01/15/23 02/13/23 Rx pantoprazole 40 mg tablet,delayed 40 mg PO BID #60 tabs 01/15/23 02/13/23 Rx release levothyroxine 50 mcg tablet 50 mcg PO QAM 01/27/23 02/13/23 History midodrine 2.5 mg tablet 2.5 mg PO TIDM 01/27/23 02/13/23 History amoxicillin 875 mg-potassium 1 tab PO BIDM #10 tabs 02/01/23 02/13/23 Rx clavulanate 125 mg tablet furosemide 40 mg tablet 80 mg (2 x 40 mg) PO BID #60 tabs 02/01/23 02/13/23 Rx potassium chloride 20 mEq 20 meq PO BID #60 tabs 02/01/23 02/13/23 Rx tablet,extended release(part/cryst) Patient History Medical History GI bleed Dyspnea on exertion Pleural effusion due to CHF (congestive heart failure) Acute on chronic heart failure with preserved ejection fraction (HFpEF) Acute combined systolic and diastolic CHF, NYHA class 3 Acute on chronic diastolic (congestive) heart failure Nausea & vomiting Elevated troponin Chronic diastolic heart failure Cardiac amyloidosis Multiple myeloma Surgical History History of colonoscopy History of tubal ligation Family History Father , 50s Stroke Mother , 90 Coronary heart disease Social History Smoking Status: Never smoker Second Hand Exposure: No; Do You Dip or Chew Tobacco: No; Hx Alcohol Use: No Hx Substance Use: No Preferred Language: Chilean 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: Effective Insulator Helper Required: No Beliefs That Will Affect Care: None marital status: Current Living Situation: Spouse Current Living Situation Comment: with Other Information That Helps Us Care for You: No Feels Safe at Home: Yes Safety Concerns: Feels Safe At This Time Assistive Devices: Oxygen - Continuous Review of Systems Constitutional: as per Subjective / HPI Physical Exam Constitutional: + ill appearing, + thin and + underweigh t Respiratory: Auscultation: + diminished lung sounds and + crackles mild respiratory distress Cardiovascular: Rate/Rhythm: regular rate and regular rhythm Skin: no rashes, warm and dry Neurologic: PERRL, EOMI, accommodation nl, no face palsy, no dysarthria Results & Data Results & Data Vital Signs (Past 12 Hours) Vital Signs Temp Pulse Pulse Resp BP BP Pulse Ox 02/13/23 15:23 66 02/13/23 15:06 36.6 C 65 18 100/66 96 02/13/23 13:46 36.5 C 60 18 105/66 96 02/13/23 13:15 36.4 C L 60 18 105/60 95 02/13/23 12:27 60 18 100/60 98 02/13/23 12:11 60 16 105/59 L 99 02/13/23 11:55 63 16 98/58 L 98 02/13/23 11:05 36.3 C L 63 16 108/62 96 02/13/23 08:30 36.4 C L 66 18 104/62 97 02/13/23 08:00 74 02/13/23 07:57 62 99/61 L 98 02/13/23 07:23 62 29 H 119/64 97 O2 Del Method O2 Flow Rate 02/13/23 15:23 02/13/23 15:06 Nasal Cannula 2 02/13/23 13:46 Nasal Cannula 2 02/13/23 13:15 Nasal Cannula 2 02/13/23 12:27 Nasal Cannula 2 02/13/23 12:11 Nasal Cannula 2 02/13/23 11:55 Nasal Cannula 2 02/13/23 11:05 Nasal Cannula 2 02/13/23 08:30 Nasal Cannula 2 02/13/23 08:00 02/13/23 07:57 02/13/23 07:23 Nasal Cannula 2 PG Care Time/CCT Total # of Minutes Spent Total Time Spent with Patient: Total time spent is greater than 50% in coordination of care (as documented) at patient's floor/unit and/or counseling patient: Coding Level of Care Code 39978 INT INP/OBS CARE 3/75MIN Diagnoses Acute GI bleeding K92.2 Pleural effusion due to CHF (congestive heart failure) I50.9 Paroxysmal atrial fibrillation I48.0 Atrial fibrillation type: paroxysmal Pleural effusion J90 Cardiac amyloidosis E85.4; I43 Multiple myeloma, remission status unspecified C90.00 Multiple myeloma remission status: unspecified Other ascites R18.8 Ascites type: other type
[2023-02-13 19:08] LABS: Glucose Pleural Fluid 98 mg/dl; LDH Pleural Fluid 97 U/L; Total Protein Pleural Fluid < 3.0 gm/dl
--- NOTE | 2023-02-13 19:12 | XRay Report ---
XR chest 1V portable HISTORY: s/p left thoracentesis COMPARISON: Chest 02/13/2023. FINDINGS: Rotated study. The heart is enlarged. Is left-sided dual-chamber pacemaker. Large left pleu ral effusion has significantly decreased in size status post thoracentesis. There is a small left ple ural effusion remaining. A small right pleural effusion is also noted. Left perihilar airspace opacit ies and mild interstitial pulmonary edema. IMPRESSION: 1. Significant decrease in size in the left pleural effusion status post thoracentesis. No pneumothor ax. 2. Left perihilar airspace opacities are noted. This may represent reexpansion pulmonary edema, resid ual atelectasis, or pneumonia. Follow-up recommended to ensure resolution. ACT 112: Negative or not required by law. Electronically signed by: Markie Silva M.D. 02/13/2023 7:10 PM
[2023-02-13 19:40] LABS: Appearance Pleural Fluid Cloudy; Color Pleural Fluid Red; RBC Pleural Fluid Auto 64000 /uL; Source Pleural Fluid Left Lung; WBC Pleural Fluid Auto 252 /uL
[2023-02-13 20:38] LABS: Eosinophils, Fluid 1 %; Lymphocytes, Fluid 20 %; Mono,Macrophage,Mesothelial 67 %; Neutrophils, Fluid 12 %
[2023-02-13 23:00] LABS: Hematocrit (blood only) 33.2 % (37.0-47.0)
[2023-02-14] MEDS: PANTOprazole 40 MG in DEXTROSE 5% MINI-B 100 ML IV SCH ×5 (01:19→22:00)
[2023-02-14] MEDS: PIPERACILLIN/TAZOBACTAM 4.5 GM in DEXTROSE 5% MINI-B 100 ML IV SCH ×3 (04:17→22:20)
[2023-02-14] MEDS: LEVOTHYROXINE SODIUM 50 MCG TABLET PO SCH (06:03)
[2023-02-14 06:14] LABS: Basophils # (auto) 0.03 K/uL (0.00-0.20); Basophils % (auto) 0.4 %; Eosinophils # (auto) 0.03 K/uL (0.00-0.50); Eosinophils % (auto) 0.4 %; Hematocrit (blood only) 30.4 % (37.0-47.0); Hemoglobin 9.2 g/dl (12.0-16.0); Immature Granulocytes # (auto) 0.05 K/uL (0.01-0.20); Immature Granulocytes % (auto) 0.6 %; Lymphocytes # (auto) 0.43 K/uL (1.20-3.40); Lymphocytes % (auto) 5.4 %; Mean Corpuscular Hemoglobin 27.8 pg (25.0-34.0); Mean Corpuscular Hgb Conc 30.3 g/dL (32.0-36.0); Mean Corpuscular Volume 91.8 fL (80.0-100.0); Mean Platelet Volume 11.4 fL (9.4-12.4); Monocytes # (auto) 0.48 K/uL (0.11-0.59); Neutrophils # (auto) 6.98 K/uL (1.40-6.50); Neutrophils % (auto) 87.2 %; Platelet Count 220 K/uL (130-400); RDW Coefficient of Variation 17.6 % (11.5-14.5); RDW Standard Deviation 56.7 fL (36.4-46.3); Red Blood Count 3.31 M/uL (4.20-5.40)
[2023-02-14 06:19] LABS: Calcium 8.2 mg/dl (8.6-10.3); Magnesium 1.9 mg/dl (1.7-2.4); Potassium 3.6 mmol/L (3.5-5.1)
[2023-02-14 06:24] LABS: Creatinine Clr Calc Pharmacy 57.5 ml/min; Est GFR (African American) 89.7 ml/min; Est GFR (Non-African American) 77.4 ml/min
--- NOTE | 2023-02-14 08:32 | Communication Note ---
Date of Service: February 14, 2023 Pt was seen and evaluated, chart reviewed. Notes she tolerated PO golytely and enema prep. Bowels are moving liquid, large volume and clear/yellow. No further black or bloody stools reported. She has bilateral pleural effusion, L>R and is now s/p left thoracentesis yesterday. Maintain NPO status. Colonoscopy today. Please refer to EGD report and GI consultation for additional recommendations/plans. We appreciate assistance in the management of any serological abnormality and corrections to include: hemoglobin >7, INR <2, platelets >50,000, potassium levels >3.5 but <5.3, and sodium levels within 5 points of the reference range prior to endoscopic evaluation. Follow-up we are planning to do for evaluation of the patient occasion. Of note the patient did have a large amount of stool in the rectal vault, clinical symptoms during his most consistent with a history of stercoral ulcer. Of note the patient also has had no hematochezia overnight.
[2023-02-14] MEDS: MIDODRINE HCL 2.5 MG TAB PO SCH ×3 (09:00→18:11)
[2023-02-14] MEDS: AMIODARONE 200 MG TAB PO SCH ×2 (09:01→21:49)
--- NOTE | 2023-02-14 09:06 | Anesthesiology Consultation ---
Date of Service February 14, 2023 Assessment & Plan (1) Encounter for pre-operative examination: History Surgery Operation Date: 02/13/23 17:00 Proposed Procedures p Esophagogastroduodenoscopy Dr Andrea Mendez, DO Operation Date: 02/14/23 16:30 Proposed Procedures p Colonoscopy Dr Andrea Mendez, DO Height/Weight Height: 5 ft 3 in Weight: 64.1 kg Allergies Allergy/AdvReac Type Severity Reaction Status Date / Time iron Allergy Rash Verified 01/27/23 15:23 Medications Home Medications Medication Instructions Recorded Confirmed Last Taken cyanocobalamin (vitamin B-12) 1,000 mcg PO QAM 05/14/21 02/13/23 01/07/23 1,000 mcg tablet (Vitamin B-12) sucralfate 100 mg/mL oral 10 ml PO QID PRN Gi Upset 11/22/22 02/13/23 02/12/23 suspension amiodarone 200 mg tablet 200 mg PO BID #60 tabs 01/15/23 02/13/23 02/12/23 pantoprazole 40 mg tablet,delayed 40 mg PO BID #60 tabs 01/15/23 02/13/23 02/12/23 release levothyroxine 50 mcg tablet 50 mcg PO QAM 01/27/23 02/13/23 02/12/23 midodrine 2.5 mg tablet 2.5 mg PO TIDM 01/27/23 02/13/23 02/12/23 amoxicillin 875 mg-potassium 1 tab PO BIDM #10 tabs 02/01/23 02/13/23 Unknown clavulanate 125 mg tablet furosemide 40 mg tablet 80 mg (2 x 40 mg) PO BID #60 tabs 02/01/23 02/13/23 02/12/23 potassium chloride 20 mEq 20 meq PO BID #60 tabs 02/01/23 02/13/23 02/12/23 tablet,extended release(part/cryst) Active Medications Generic Name Dose Route Start Last Admin Trade Name Freq PRN Reason Stop Dose Admin Amiodarone HCl 200 mg 02/13/23 09:30 02/13/23 21:28 Amiodarone 200 Mg Tab PO 03/15/23 09:29 200 mg BID RYANN Administration Cyanocobalamin 1,000 mcg 02/13/23 09:30 02/13/23 09:58 Cyanocobalamin (B-12) 500 Mcg Tablet PO 03/15/23 09:29 1,000 mcg QAM RYANN Administration Pantoprazole Sodium 40 mg/ 100 mls @ 20 mls/hr 02/13/23 07:30 02/14/23 06:04 Dextrose IV 03/15/23 07:29 8 mg/hr Q5H RYANN 20 mls/hr Administration 8 MG/HR Piperacillin Sod/Tazobactam 100 mls @ 25 mls/hr 02/13/23 12:00 02/14/23 04:17 Sod 4.5 gm/ Dextrose IV 02/23/23 11:59 25 mls/hr Q8H RYANN Administration Protocol Levothyroxine Sodium 50 mcg 02/14/23 06:30 02/14/23 06:03 Levothyroxine Sodium 50 Mcg Tablet PO 03/16/23 06:29 50 mcg DAILYBB RYANN Administration Midodrine 2.5 mg 02/13/23 09:30 02/13/23 16:27 Midodrine Hcl 2.5 Mg Tab PO 03/15/23 09:29 2.5 mg TIDM RYANN Administration NPO Date Last Intake of Fluids: 02/13/23 Time Last Intake of Fluids: 02:30 Date Last Intake of Solids: 02/12/23 Time Last Intake of Solids: 08:00 Past Medical History Medical History (Updated 02/14/23 @ 09:09 by Willie Orellana MD) Chronic peptic ulcer with bleeding Tachy-walker syndrome Atrial fibrillation Hx of cardiac pacemaker GI bleed Dyspnea on exertion Pleural effusion due to CHF (congestive heart failure) Acute on chronic heart failure with preserved ejection fraction (HFpEF) Acute combined systolic and diastolic CHF, NYHA class 3 Acute on chronic diastolic (congestive) heart failure Nausea & vomiting Elevated troponin Chronic diastolic heart failure Cardiac amyloidosis Multiple myeloma Past Family History Family History Father , 50s Stroke Mother , 90 Coronary heart disease Past Surgical History Surgical History (Updated 02/14/23 @ 09:08 by Willie Orellana MD) History of permanent cardiac pacemaker placement History of colonoscopy History of tubal ligation Social History Smoking Status: Never smoker Do You Dip or Chew Tobacco: No Hx Alcohol Use: No Hx Substance Use: No substance use type: does not use Physical Exam Vital Signs Last Vital Signs Temp 36.4 C L 02/14/23 07:59 Pulse 60 02/14/23 07:59 Resp 18 02/14/23 07:59 BP 102/63 02/14/23 07:59 Pulse Ox 96 02/14/23 07:59 O2 Del Method Nasal Cannula 02/14/23 07:59 O2 Flow Rate 2 02/14/23 07:59 Testing Laboratory Results 02/14/23 05:44 02/14/23 05:44 Urine Color Yellow 02/13/23 06:10 Urine Appearance Clear (Clear) 02/13/23 06:10 Urine pH 7.5 (4.5-7.5) 02/13/23 06:10 Ur Specific [place] 1.025 (1.000-1.030) 02/13/23 06:10 Urine Protein Negative (Negative) 02/13/23 06:10 Urine Glucose (UA) Negative (Negative) 02/13/23 06:10 Urine Ketones Negative (Negative) 02/13/23 06:10 Urine Nitrite Negative (Negative) 02/13/23 06:10 Ur Leukocyte Esterase Trace (Negative) H 02/13/23 06:10 Urine WBC (Auto) 1-5 /hpf (0-5) 02/13/23 06:10 Urine RBC (Auto) 10-30 /hpf (0-4) H 02/13/23 06:10 U Hyaline Cast (Auto) 1-5 /lpf (0-5) 02/13/23 06:10 U Epithel Cells (Auto) >30 /lpf (0-5) H 02/13/23 06:10 Urine Bacteria (Auto) Negative (Negative) 02/13/23 06:10 Blood Type O Positive 02/13/23 04:07 Antibody Screen NEGATIVE 02/13/23 04:07 02/13/23 Unknown Gram Stain - Final Pleural Fluid,Left Electrocardiogram Date: 02/13/23 AV paced 89 Echocardiogram Date: 11/22/22 EF: 60-65% Other Findings: + LVH (severe) severe TR mild pulmonary hypertension no pericardial effusion
[2023-02-14] MEDS: CYANOCOBALAMIN (B-12) 500 MCG TABLET PO SCH (09:27)
--- NOTE | 2023-02-14 10:44 | Cardiology Progress Note ---
Date of Service February 14, 2023 Assessment & Plan (1) Acute GI bleeding: (2) Acute on chronic heart failure with preserved ejection fraction (HFpEF): (3) Tachy-walker syndrome: (4) Paroxysmal atrial fibrillation: (5) Cardiac amyloidosis: (6) Pleural effusion due to CHF (congestive heart failure): Plan Advanced [place] cardiac amyloidosis, previously on hospice; multiple complex hospital stays over the few months Acute decompensated diastolic congestive heart failure, NYHA class III-IV, with associated pleural effusions - Limited echo pending, RE: pericardial effusion - Hold IV Lasix this AM noting colonoscopy prep, colonoscopy later today. Will need IV Lasix, perhaps 40 mg BID, restarting later today or tomorrow AM - Add Spironolactone 25 mg/day - Continue sodium and fluid restrictions - Continue amiodarone - Maintain normokalemia as well as normomagnesemia. - ? Pleurx catheter Admission and Anticipated Discharge Date Admission Date: February 13, 2023 Supervising Physician Co-Signing Physician Notes Patient seen and examined at the bedside. Feeling better since thoracentesis. Denies chest pain or heaviness. Colonoscopy scheduled for today. PE: VSS with borderline hypotension. Heart: Regular rhythm, normal S1-S2, 1-2/6 midsystolic murmur at the left sternal border. Lungs: Diminished breath sounds at the left base. Ext: No edema. A/P: Agree with above PA-C history, physical exam, assessment and plan. Patient remains volume overloaded with mild symptomatic improvement after left-sided thoracentesis. Echocardiogram demonstrates a small pericardial effusion without tamponade. Her IVC is dilated suggesting elevated filling pressures. Agree with restarting IV loop diuretic therapy and addition of spironolactone. Continue sodium and fluid restriction. Amiodarone for rhythm control. Hold anticoagulation. Pulmonary medicine following, consider Pleurx catheter placement. Subjective Patient seen and examined. Chart, medications, and telemetry reviewed. Status post February 13, 2023 left thoracentesis, removal of 1400 mL of brown-colored fluid with improvement in dyspnea. Lying flat. Complaints: abdominal pain and heartburn. No chest pain. No palpitations. No PND. No peripheral edema. No dizziness. No syncope. No subjective fevers or chills. Follow-up limited TTE pending to further evaluate the size of the pericardial effusion. For colonoscopy later today. Telemetry: Atrial paced in the 60s. Review of Systems Review of Systems: Complete Review of Systems is as stated above, negative, or noncontributory. Physical Exam Physical Exam: General: Alert to person and place. Cachetic. NAD. HENT: Normocephalic. Atraumatic. Eyes: PER. Conjunctiva pink, sclera pale. Neck: + JVD. + HJR. Heart: RRR. Lungs: Absent breath sounds 1/2 on the left. No wheeze. Abdomen: +BS. Soft. Nontender. Extremities: No edema. No cyanosis. Limited neurological examination is without focal deficits. Pulses: Posterior tibial=1/4. Results & Data Vital Signs (Past 12 Hours) Vital Signs Temp Pulse Pulse Resp BP Pulse Ox O2 Del Method 02/14/23 10:20 Nasal Cannula 02/14/23 07:59 36.4 C L 60 18 102/63 96 Nasal Cannula 02/14/23 03:31 36.6 C 72 20 95/59 L 97 Nasal Cannula 02/13/23 23:02 36.6 C 63 20 108/66 94 Nasal Cannula 02/13/23 23:00 60 O2 Flow Rate 02/14/23 10:20 2 02/14/23 07:59 2 02/14/23 03:31 2 02/13/23 23:02 2 02/13/23 23:00 Laboratory Results Cardiac Enzymes 02/13/23 Range/Units 16:37 Lactate Dehydrogenase 294 H (86-244) U/L CBC 02/13/23 02/13/23 02/14/23 Range/Units 16:37 22:48 05:44 WBC 8.00 (4.8-10.8) K/ul RBC 3.31 L (4.20-5.40) M/uL Hgb 9.7 L 10.0 L 9.2 L (12.0-16.0) g/dl Hct 32.7 L 33.2 L 30.4 L (37.0-47.0) % Plt Count 220 (130-400) K/uL Neut # (Auto) 6.98 H (1.40-6.50) K/uL Lymph # (Auto) 0.43 L (1.20-3.40) K/uL [place] # (Auto) 0.48 (0.11-0.59) K/uL Eos # (Auto) 0.03 (0.00-0.50) K/uL Baso # (Auto) 0.03 (0.00-0.20) K/uL Comprehensive Metabolic Panel 02/14/23 Range/Units 05:44 Sodium 138 (136-145) mmol/L Potassium 3.6 (3.5-5.1) mmol/L Chloride 105 (98-107) mmol/L Carbon Dioxide 24 (21-32) mmol/L BUN 18 (6-23) mg/dl Creatinine 0.75 (0.6-1.2) mg/dl Glucose 110 H (70-99(Fasting)) mg/dl Calcium 8.2 L (8.6-10.3) mg/dl Intake and Output 02/13/23 02/14/23 02/14/23 22:59 06:59 14:59 Intake Total 1977.000 / 2587.000 281.667 / 2587.000 100 / 100 Output Total Balance 1974.000 / 2530.000 277.667 / 2530.000 100 / 100 Intake: IV 1577.000 / 2187.000 281.667 / 2187.000 100 / 100 PANTOprazole 40 mg In Dextrose 157.000 / 367.000 181.667 / 367.000 5% Mini-B 100 ml @ 8 MG/HR 20 mls/hr IV Q5H RYANN Rx#:[id number] PANTOprazole 80 mg In Dextrose 120 / 120 5% 100 ml @ 400 mls/hr IV NOW ONE Rx#:[id number] Piperacillin/Tazobactam 4.5 gm 100 / 200 100 / 200 100 / 100 In Dextrose 5% Mini-B 100 ml @ 25 mls/hr IV Q8H RYANN Rx#: [id number] Potassium Chloride / Wtr 10 meq 200 / 400 In 100 ml @ 100 mls/hr IV Q1H RYANN Rx#:[id number] Sodium Chloride 0.9% 1,000 ml @ 1000 / 1000 125 mls/hr IV .Q8H STA Rx#: [id number] Oral 400 / 400 Output: # Bowel Movements Other: Other Intake Source Patient is NPO # Unmeasured Voids 3 Weight 64.1 kg 64.1 kg Weight Measurement Method [facility] Patient Weight 11/18/23 06:59 Weight 64.1 kg
[2023-02-14] MEDS ORDERED: POTASSIUM CHLORIDE CRTAB 20 MEQ TABCR PO ONE (11:05)
[2023-02-14] MEDS: MoRPHine SULFATE 2 MG/ML CARP IV PRN (12:42)
[2023-02-14] MEDS ORDERED: PROPOFOL IV EMULSION 10 MG/ML 20 ML VIAL IV ONE (13:45)
[2023-02-14] MEDS ORDERED: LIDOCAINE 2% 2 ML VIAL/AMP(20MG/ML) INFIL ONE (13:45)
[2023-02-14] MEDS ORDERED: DROPERIDOL 5 MG/2 ML VIAL ONE (13:58)
--- NOTE | 2023-02-14 14:14 | GI REPORT ---
Patient Name: Anel Hogue Procedure Date: 02/14/2023 1:38 PM Date of : 1945 Admit Type: Inpatient Age: 77 Gender: Female Attending MD: Blu Mendez DO, Procedure: Colonoscopy Providers: Blu Mendez DO Referring MD: Ward Cortes Md Indications: Hematochezia Medicines: Monitored Anesthesia Care Complications: No immediate complications. Estimated blood loss: Minimal. Estimated Blood Loss: Estimated blood loss was minimal. Procedure: Pre-Anesthesia Assessment: - Prior to the procedure, a History and Physical was performed, and patient medications, allergies and sensitivities were reviewed. The patient's tolerance of previous anesthesia was reviewed. - The risks and benefits of the procedure and the sedation options and risks were discussed with the patient. All questions were answered and informed consent was obtained. - Patient identification and proposed procedure were verified prior to the procedure by the physician, the nurse and the electric arc furnace operator. The procedure was verified in the procedure room. - Pre-procedure physical examination revealed no contraindications to sedation. - ASA Grade Assessment: IV - A patient with severe systemic disease that is a constant threat to life. - After reviewing the risks and benefits, the patient was deemed in satisfactory condition to undergo the procedure. - The anesthesia plan was to use monitored anesthesia care (MAC). - Immediately prior to administration of medications, the patient was re-assessed for adequacy to receive sedatives. - The heart rate, respiratory rate, oxygen saturations, blood pressure, adequacy of pulmonary ventilation, and response to care were monitored throughout the procedure. - The physical status of the patient was re-assessed after the procedure. After I obtained informed consent, the scope was passed under direct vision. Throughout the procedure, the patient's blood pressure, pulse, and oxygen saturations were monitored continuously. The Colonoscope was introduced through the anus with the intention of advancing to the cecum. The scope was advanced to the sigmoid colon before the procedure was aborted. Medications were given. The colonoscopy was performed without difficulty. The patient tolerated the procedure well. The quality of the bowel preparation was inadequate. Findings: Hemorrhoids were found on perianal exam. A large amount of brown (nonbloody) semi-solid stool was found in the rectum and in the sigmoid colon, precluding visualization. Impression: - Preparation of the colon was inadequate. - Hemorrhoids found on perianal exam. - Stool in the rectum and in the sigmoid colon. - No specimens collected. Recommendation: - [facility]. - Advance diet as tolerated today. - Repeat colonoscopy within 3 months because the bowel preparation was suboptimal. -As the patient is not having hematochezia any longer with rectal bowel regimen to include MiraLAX 17 g 1 time daily. To help with fecal disimpaction would recommend use of an enema twice daily for the next 3 days. Blu Mendez D.O. Blu Mendez, 02/14/2023 2:13:35 PM This report has been signed electronically. Note Initiated On: 02/14/2023 1:38 PM Number of Addenda: 0 I attest to the content of the Intraoperative Record and orders documented therein, exceptions below {[id number]}
[2023-02-14] MEDS ORDERED: PHENYLEPHRINE 100MCG/ML 5ML SYR ONE (14:17)
[2023-02-14] MEDS ORDERED: HYDROCORTISONE HC 2.5% CRM 30GM TUBE EXT PRN (14:47)
--- NOTE | 2023-02-14 15:18 | Anesthesiology Progress Note ---
Date of Service February 14, 2023 Anesthesia Post Procedure Vital Signs Vital Signs: Temp Pulse Pulse Pulse Resp BP BP 02/14/23 14:48 60 20 103/65 02/14/23 14:33 60 20 104/63 02/14/23 14:18 62 20 103/65 02/14/23 13:28 36.8 C 62 16 118/66 02/14/23 12:37 36.6 C 59 L 18 105/67 02/14/23 10:20 02/14/23 07:59 36.4 C L 60 18 102/63 02/14/23 03:31 36.6 C 72 20 95/59 L 02/13/23 23:02 36.6 C 63 20 108/66 02/13/23 23:00 60 02/13/23 20:00 02/13/23 19:30 36.6 C 60 20 101/64 02/13/23 15:23 66 Pulse Ox O2 Del Method O2 Flow Rate 02/14/23 14:48 99 Oxymask 4 02/14/23 14:33 99 Oxymask 4 02/14/23 14:18 99 Oxymask 4 02/14/23 13:28 95 Nasal Cannula 2 02/14/23 12:37 94 Nasal Cannula 2 02/14/23 10:20 Nasal Cannula 2 02/14/23 07:59 96 Nasal Cannula 2 02/14/23 03:31 97 Nasal Cannula 2 02/13/23 23:02 94 Nasal Cannula 2 02/13/23 23:00 02/13/23 20:00 Nasal Cannula 2 02/13/23 19:30 95 Nasal Cannula 2 02/13/23 15:23 Pain Intensity Abdomen: Pain Intensity: 8 Transfer of Care Handoff Completed per policy Notes Mental Status: alert / awake / arousable Patient Amnestic to Procedure: Yes Nausea / Vomiting: adequately controlled Pain: adequately controlled Airway Patency, RR, SpO2: stable & adequate BP & HR: stable & adequate Hydration State: stable & adequate Anesthetic Complications: no major complications apparent
[2023-02-14] MEDS: SPIRONOLACTONE 25 MG TAB PO SCH (15:55)
--- NOTE | 2023-02-14 17:19 | Hospitalist Progress Note ---
Date of Service February 14, 2023 Assessment & Plan (1) Acute GI bleeding: Plan: Patient is a 77 yr female with H/O chronic diastolic CHF, idiopathic cardiomyopathy, cardiac amyloidosis, tachybradycardia syndrome s/p pacemaker, left ventricle hypertrophy, chronic atrial fibrillation, acute gastric ulcer with hemorrhage, multiple myeloma s/p chemo, hemorrhagic shock presents with GI bleed. Patient was admitted on January 07, 2023 with A-fib and biliary colic. She also found to have tachybradycardia syndrome and s/p pacemaker on January 13. Postprocedure had small pneumothorax. She also s/p ERCP for choledocholithiasis s/p 1 plastic biliary stent was placed in the common bile duct and plan was to repeat ERCP in 2 months to remove the stent and possible axios stent placement. EGD done showed nonbleeding gastric ulcers. Patient was again admitted on January 27, 2023 for acute on chronic heart failure with preserved ejection fraction and pleural effusion. Seen by pulmonary but as there was no significant hypoxia thoracocentesis was not done. Was treated with IV diuretics. Pacemaker interrogation was done which showed stable thresholds.Her Eliquis restarted January given risk of stroke with atrial fibrillation and amyloidosis and she was discharged on February 01. On February 02 she was admitted for GI bleed, looks like she had history of gastric ulcer requiring Endo Clip in September 2021.She was having hematemesis and also rect al bleed during February 02 admission. Significant hematemesis in the ER. Seems filled whole emesis basin full of bright red blood .Had hypotension and an episode of syncope. Massive transfusion protocol was initiated and she received Kcentra , FFP and as well as TXA. Received 2 units of PRBC . Patient had emergent EGD. EGD revealed large cratered ulcer in the gastric antrum which was significantly increased in size when compared to prior EGD along with stigmata of recent bleeding. Received IV Rocephin for Klebsiella urine culture from January 27. Patient was seen by the critical care. Patient also seen by general surgery and because of her cardiac issues recommended transfer to tertiary care.Patient was transferred to [facility] for large cratered gastric antral ulcer concern for impending perforation. As per patient at [facility] she had EGD and ulcer was sprayed and had another EGD. She was monitored in the ICU. As per epic patient had EGD on February 03 which showed nonobstructing gastric ulcer with oozing hemorrhage .Hemostatic spray applied. And returned to ICU for repeat EGD in 1 to 2 days. Patient had repeat EGD on February 06. Nonbleeding gastric ulcer with a clean ulcer base was found. And advised for omeprazole 40 mg p.o. twice daily for 8 weeks and to repeat EGD to check healing seems to be done when EUS with gallbladder drainage and ERCP planned. Patient was discharged last Friday to home. Patient states after going home she was feeling very weak and tired. Mostly bedbound. Having abdominal pain. Poor appetite. Tonight again she had a bloody bowel movement which prompted her to come to the ER. Hemoccult was positive in the ER. Hemoglobin is 9.5. Acute GI bleeding ? Secondary to bleeding peptic ulcers H/O peptic ulcer disease Constipation/? Possible fecal impaction --S/P EGD:Normal upper third of esophagus and middle third of esophagus. Mild Schatzki ring. Large hiatal hernia with multiple Elías ulcers. Non-obstructing non-bleeding gastric ulcer with no stigmata of bleeding. Normal examined duodenum. No specimens collected. --CT ABD: Patient is status post internalized biliary stent with proximal coil at the hepatic hilum and distal coil within the duodenum. Moderate volume mesenteric volume of abdominal and pelvic ascites. Previously noted soft tissue mass within the stomach is not visualized. If there is further concern for ulcer, consider direct inspection or fluoroscopic imaging. Findings suspicious for systemic volume overload with large bilateral pleural effusions, moderate mesenteric ascites, and anasarca. Rectal vault distention measuring 6.4 cm. No evidence of adjacent stranding. Stercoral colitis is less likely. Consider disimpaction. Diffuse gallbladder wall thickening with adjacent stranding. Findings may be due to volume overload or low protein state. If there is further concern for cholecystitis, consider HIDA imaging. No other acute findings. --S/P colonoscopy on 02/14/23:Preparation of the colon was inadequate. Hemorrhoids found on perianal exam. Stool in the rectum and in the sigmoid colon. No specimens collected. -- Monitor H&H and transfuse PRBCs as needed Continue IV Protonix, Carafate Appreciate GI input Empirically on Zosyn Continue enema, MiraLAX daily as recommended by GI Clear liquid diet for now, advance as tolerated Needs repeat colonoscopy in 3 months given suboptimal preparation Anasarca Acute decompensated diastolic CHF-POA --CXR:Increase in size of a large left pleural effusion. Slight increase in a small right pleural effusion. Cardiomegaly with mild interstitial pulmonary edema. -- CT abdomen as above --ECHO: Large left pleural effusion. Trivial loculated right lateral pericardial effusion. No echocardiogenic indications of cardiac tamponade. Dilated inferior vena cava with reduced collapsibility with sniff indicates an elevated right atrial pressure of 15 mmHg. --S/P thoracentesis on 02/13/23 -- Follow-up pleural fluid studies Monitor volume status closely Appreciate Pulmonology, Cardiology help Continue supplemental oxygen Add Aldactone Started on IV Lasix 40 mg twice daily Hemorrhoids Symptomatic management Hypokalemia Replete electrolytes as needed Monitor Heart failure with preserved ejection fraction Cardiac amyloidosis --Recently started on supplemental oxygen--2 L Monitor volume status Cardiology consulted Diuresis as above Chronic hypotension Continue midodrine Monitor BP History of A-fib Tachybradycardia syndrome S/p pacemaker Continue Amiodarone Eliquis on hold due to GI bleed H/O choledocholithiasis S/P biliary sphincterotomy and balloon extraction, plastic biliary stent placement in the common bile duct on 01/10/2023. Plan for repeat ERCP for stent removal --2 months from stent placement Also plan for endoscopic ultrasound-guided gallbladder drainage using axios stent as patient was deemed to be nonsurgical candidate at the time. Normal LFTs History of multiple myeloma s/p chemo Follow-up with heme-onc Hypothyroidism TSH elevated, normal free T4 Continue levothyroxine Will need repeat thyroid function test as outpatient DVT Px: SCDs Re: GI bleed Code Status Full code Admission and Anticipated Discharge Date Admission Date: February 13, 2023 Subjective Patient is seen and examined at bedside Reports generalized weakness Also reports cough Had bowel movements with colon prep Discussed with GI today Dyspnea better today Saturating well on 4 L supplemental oxygen No hematochezia overnight Review of Systems Review of Systems: All systems reviewed & are unremarkable except as noted in Subjective Physical Exam Physical Exam: Physical Exam: Vitals signs as noted above General Appearance:Thin, frail, no apparent distress, Ill appearing Head: normocephalic, Atraumatic Eyes: normal inspection, EOMI Neck: supple, Trachea midline Respiratory/Chest: Decreased breath sounds, CTA, No accessory muscle use Cardiovascular: S1, S2, No murmur Abdomen/GI:Soft, distended, mild tender, Bowel sounds present Extremities/Musculoskeletal:normal inspection, no edema Neurologic/Psych:AAOX3, grossly no focal neurological deficits Skin: normal color, warm Results & Data Results & Data Vital Signs (Past 12 Hours) Vital Signs Temp Pulse Pulse Pulse Resp BP BP 02/14/23 15:59 36.4 C L 61 19 105/63 02/14/23 14:48 60 20 103/65 02/14/23 14:33 60 20 104/63 02/14/23 14:18 62 20 103/65 02/14/23 13:28 36.8 C 62 16 118/66 02/14/23 12:37 36.6 C 59 L 18 105/67 02/14/23 10:20 02/14/23 07:59 61 02/14/23 07:59 36.4 C L 60 18 102/63 Pulse Ox O2 Del Method O2 Flow Rate 02/14/23 15:59 96 Nasal Cannula 4 02/14/23 14:48 99 Oxymask 4 02/14/23 14:33 99 Oxymask 4 02/14/23 14:18 99 Oxymask 4 02/14/23 13:28 95 Nasal Cannula 2 02/14/23 12:37 94 Nasal Cannula 2 02/14/23 10:20 Nasal Cannula 2 02/14/23 07:59 02/14/23 07:59 96 Nasal Cannula 2 Laboratory Results Short CBC 02/13/23 02/14/23 Range/Units 22:48 05:44 WBC 8.00 (4.8-10.8) K/ul Hgb 10.0 L 9.2 L (12.0-16.0) g/dl Hct 33.2 L 30.4 L (37.0-47.0) % Plt Count 220 (130-400) K/uL BMP 02/14/23 05:44 Sodium 138 Potassium 3.6 Chloride 105 Carbon Dioxide 24 BUN 18 Creatinine 0.75 Glucose 110 H Calcium 8.2 L
[2023-02-14] MEDS ORDERED: Nursing to Pharmacy Communication SCH (21:30)
[2023-02-14 21:57] LABS: Hematocrit (blood only) 29.6 % (37.0-47.0); Hemoglobin 9.2 g/dl (12.0-16.0)
--- OUTSIDE RECORDS SUMMARY | 2023-02-15 00:30 | External Medical Summary | Summary of Care ---
Author Name Unknown Organization [facility] [address] [facility] [address] Phone [phone] Care Team Providers Care Retort Condenser Attendant Name Role Phone Rosendo Boyce DO Primary Care Provider Reason for Visit * Reason Onset Date Comments Advice 02/11/2023 Encounter Details Date Type Department Care Team ([facility] st Contact Info) Description 02/11/2023 Telephone [facility] [address] [facility] [place] [address] Rosendo Boyce DO [address] [facility] [address] Advice Allergies Active Allergy Reactions Criticality Noted Date Comments Pollen 01/24/2017 Ferrous Sulfate 03/08/2019 Couldn't tolerate Ferrous sulfate pills, but can take 1 a day vitamins Torsemide 03/06/2021 Itching documented as of this encounter (statuses as of 02/11/2023) Medications Medication Sig Dispensed Refills Start Date End Date Status Vitamin B-12 1000 MCG Oral Tablet Take 1 Tablet by mouth in the morning. 0 Active Ondansetron HCl 8 MG Oral Tablet (Zofran)Indications :Cardiac amyloidosis (HCC) Take 1 Tab by mouth every 8 hours as needed for Nausea. 30 Tab 0 07/14/2020 Active Vitamin D-3 25 MCG (1000 UT) Oral Capsule Take 1 Capsule by mouth in the morning. 0 Active Prochlorperazine Maleate 10 MG Oral Tablet (Compazine)Indicati ons:Cardiac amyloidosis (HCC) Take by mouth 1 Tablet every 6 hours as needed for Nausea. 60 Tablet 2 06/28/2021 Active Nitroglycerin 0.4 MG Sublingual Tablet Sublingual (Nitrostat) Place 1 Tablet under the tongue every 5 minutes as needed for Pain, Chest. 0 10/23/2021 Active Sucralfate 1 GM/10ML Oral Suspension (Carafate) Take 10 mL by mouth in the morning and 10 mL at noon and 10 mL in the evening and 10 mL before bedtime. 420 mL 5 04/19/2022 Active Polyethylene Glycol 3350 17 GM/SCOOP Oral Powder (Miralax) TAKE 17 GRAMS DIRECTED DAILY NEEDED FOR CONSTIPATION 255 g 0 06/24/2022 Active Amiodarone HCl 200 MG Oral Tablet (Cordarone)Indicati ons:Tachy-walker syndrome (HCC) Take 1 Tablet by mouth in the morning and 1 Tablet before bedtime. 60 Tablet 5 01/20/2023 Active Midodrine HCl 2.5 MG Oral Tablet (Proamatine)Indicat ions:Tachy-walker syndrome (HCC) Take 1 Tablet by mouth in the morning and 1 Tablet at noon and 1 Tablet before bedtime. 90 Tablet 5 01/20/2023 Active Levothyroxine Sodium 50 MCG Oral Tablet (Levoxyl) Take 1 Tablet by mouth in the morning. (at least 30 min prior to breakfast or other meds). 30 Tablet 11 01/22/2023 Active Pantoprazole Sodium 40 MG Oral Tablet Delayed Release (Protonix)Indicatio ns:Gastric ulcer without hemorrhage or perforation, unspecified chronicity Take 1 Tablet by mouth in the morning and 1 Tablet in the evening. 0 02/08/2023 Active Furosemide 40 MG Oral Tablet (Lasix) Take 2 Tablets by mouth in the morning and 2 Tablets before bedtime. 0 Active Potassium Chloride Ofelia ER 10 MEQ Oral Tablet Extended Release Take 2 Tablets by mouth in the morning and 2 Tablets before bedtime. 0 Active documented as of this encounter (statuses as of 02/11/2023) Active Problems Problem Noted Date Diagnosed Date Acute gastric ulcer with hemorrhage 02/08/2023 Upper GI bleed 02/02/2023 Acute blood loss anemia 02/02/2023 Hemorrhagic shock 02/02/2023 Tachy-walker syndrome 01/20/2023 Chronic atrial fibrillation 01/20/2023 Prediabetes 01/20/2023 Bradycardia, sinus 08/22/2021 Cardiac amyloidosis 10/06/2019 Chronic diastolic congestive heart failure 03/08 Idiopathic cardiomyopathy 03/08/2019 LVH (left ventricular hypertrophy) 03/08/2019 Multiple myeloma not having achieved remission ( HCC) 09/03/2017 Monoclonal paraproteinemia 05/25/2015 ADVANCE DIRECTIVE INFORMATION 06/03/2007 Overview: No, Advance Directive brochure given to patient. 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 JAQUAN (generalized anxiety disorder) 07/06/2018 07/15/2018 NO KNOWN PROBLEMS 07/31/2007 08/02/2017 documented as of this encounter (statuses as of 02/11/2023) Immunizations Name Administration Dates Next Due COVID-19 mRNA, LNP-s, No Pre serve, 2-Dose Series (Moderna) 06/01/2020,05/04/2020 COVID-19, mRNA, LNP-s, PF, B ooster, 100mcg/0.5mg (Moderna) 03/14/2021 Diptheria/Tetanus (Adult) 07/08/1997,08/29/1986 Pneumococcal Conjugate Vacc, 13 Valent (Prevnar) 06/28/2016 Pneumococcal Polysaccharide PPV23 (Pneumovax) 04/08/2012 SEASONAL INFLUENZA, PF, 6 M & Above, IM , (FLULAVAL or FLUZONE) 12/29/2019,01/14/2018,02/28/2017 Seasonal Influenza, Quadriva lent Hd (Fluzone Hd) 01/20/2023,12/26/2020 Seasonal Influenza, Quadriva lent, No Preserve, IM 12/13/2015 Seasonal Influenza, Split, I IV3, With Preserve, Inj 03/02/2015,04/01/2013,04/08/2012,01/22,02/03/2003 Seasonal Influenza, Trivalen t, Adjuvanted, 65+ yrs 01/19/2019 TDAP (age 11 and older)(Adacel) 08/31/2009 Varicella Zoster Vaccine (Adult) 06/10/2011 documented as of this encounter Social History Tobacco Use Types Packs/Day Years Used Date Smoking Tobacco: Former Cigarettes Q uit: 03/31/1967 Smokeless Tobacco: Never Comments:quit early 20's Alcohol Use Standard Drinks/Week Comments No 0 (1 standard drink = 0.6 oz pur e alcohol) PHQ-2 Answer Date Recorded PHQ-2 Score 0 10/22/2019 Hunger Vital Sign Answer Date Recorded Worried About Running Out of Food in the Last Ye ar Never true 10/22/2019 Ran Out of Food in the Last Year Never true 10/22/2019 Sex and Gender Information Value Date Recorded Sex Assigned at Female 07/06/2018 11:14 AM EDT Gender Identity Female 07/06/2018 11:14 AM EDT Sexual Orientation Straight 07/06/2018 11 :14 AM EDT Job Start Date Occupation Industry Not on file Not on file Not on file documented as of this encounter Functional Status Functional Status Response Date of Assess ment Are you deaf or do you have serious difficulty h earing? No 02/02/2023 Are you blind or do you have serious difficulty seeing, even when wearing glasses? No 02/02/2023 Do you have serious difficul ty walking or climbing stairs? (5 years old or older) No 02/02/2023 Do you have difficulty dress ing or bathing? (5 years old or older) No 02/02/2023 Because of a physical, menta l, or emotional condition, do you have difficulty doing errands alone such as visiting a doctor s office or shopping? (15 years old or older) No 02/03/20 23 Cognitive Status Response Date of Assessm ent Because of a physical, menta l, or emotional condition, do you have serious difficulty concentrating, remembering, or making decisions? (5 years old or older) No 02/02/2023 documented as of this encounter Miscellaneous Notes * Telephone Encounter - Rosendo Boyce DO - 02/11/2023 1:32 PM EST Please call: I think it's going to take time for her to feel better while her blood counts get backup. Did they start her on any oral iron after the hospital? Would she be open to seeing Hematology again to discuss both her multiple myeloma and her anemia? * Telephone Encounter - Rosi Torre RN - 02/11/2023 12:44 PM EST Provider to address: ESTRELLITA completed for patient for discharge [facility] 02/08/2023 for Acute gastric ulcer with hemorrhage. Spoke with patient's . States he feels she is not doing so well at home. She has O2 2l/NC athome with exercise, but she requires it continuously. O2 sat 90's with O2, if she removes it, she quickly goes to low 80's. Eating and drinking, but in very small amounts. Denies N/V. Was able to eatCream of Wheat this AM. Minimal activity at home. Complains of pain "all over" relieved with Tylenol. Abd remains distended, + BM. No further bleeding noted. states overall she may be the same as in hospital, but concern is that she is not getting any better and needs to use O2 more than before. Patient is scheduled for hospital discharge appt 02/17/2023 with you. Reason for Call: Advice Contact: Telephone Call Contact Type: Advice Outcome: See above Face to face time spent with Patient (minutes): 0 Total Time including non face to face (minutes): 20 documented in this encounter Plan of Treatment Upcoming Encounters Date Type Department Care Team (Latest Contact Info) Description 02/17/2023 1:40 PM EST Office Visit Family Practice [facility] [address] [place] [address] Rosendo Boyce DO [address] [facility] [place] [address] 02/28/2023 11:45 AM EST Cardiac Studies Cardiology, [facility] [address] [place] [address] [place] [address] [place] [phone] 03/12/2023 9:57 AM EST Hospital Encounter OR [facility], Operating Room, [facility] - 4th Floor [address] [place] [address] Hope Stuart MD [address] [place] [address] 03/12/2023 9:57 AM EST - 03/12/2023 11:19 AM EST Surgery OR [facility], Operating Room, [facility] - 4th Floor [address] [place] [address] [address] Hope Stuart MD [address] [place] [address] ESOPHAGOGASTRODUODENOSCOPY (EGD), FLEXIBLE, TRANSORAL, ENDOSCOPIC ULTRASOUND Scheduled Procedures Name Priority Associated Diagnoses Date/Ti ga ESOPHAGOGASTRODUODENOSCOPY ( EGD), FLEXIBLE, TRANSORAL, ENDOSCOPIC ULTRASOUND Choledocholithiasis 03/12/2023 9:57 AM EST ESOPHAGOGASTRODUODENOSCOPY ( EGD), FLEXIBLE, TRANSORAL, WITH DRAINAGE PSEUDOCYST Choledocholithiasis 03/12/2023 9:57 AM EST COLONOSCOPY FLEXIBLE PROXIMA L DIAGNOSTIC Recall Encounter for screening colonoscopy Health Maintenance Due Date Last Done Comments Zoster Vaccines (1 of 2) 08/05/2011 06/10/2011 DXA Scan 06/25/2019 06/24/2012, 07/29, 08/16/2004, Additional history exists DTaP,Tdap,and Td Vaccines (2 - Td or Tdap) 09/01/2019 08/31/2009, 07/08/1997, 08/29/1986 Depression Screening 10/21/2020 10/22/2019 COVID-19 Vaccine (3 - Moderna risk series) 04/11/2021 03/14/2021, 06/01/2020, 05/04/2020 HbA1c 01/21/2024 01/20/2023, 03/08/2019 TSH 02/04/2024 02/03/2023, 12/30, 03/06/2021, Additional history exists Colonoscopy Discontinued 05/23/2015, 05/02, 11/02/2004, Additional history exists Colorectal Cancer Screening Discontinued Pneumococcal Vaccine: 65+ Years Completed 06/28/2016, 04/08/2012 Influenza Vaccine (FLU shot) Completed 01/20/2023, 12/26/2020, 12/29/2019, Additional history exists Cologuard Discontinued Fecal Occult Blood Test Discontinued GARDASIL-HPV IMMUNIZATION SERIES Aged Out No longer eligible based on patient's age to complete this topic Hepatitis B Aged Out No longer eligi ble based on patient's age to complete this topic MENINGOCOCCAL (MENACTRA/MENVEO) Aged Out No longer eligible based on patient's age to complete this topic Sigmoidoscopy Discontinued documented as of this encounter Medical Devices Implanted Type Area Elementary Assistant Teacher Device Identifier Shelf Expiration Date Model / Serial / Lot Lens Intraoc 17.0 - [id number] - [id number] Implanted:Qty: 1 on 02/01/2020 by Jossue Mancera MD at OR [facility] Right: Eye [employer] 05/28/2024 [id number] / [id number] / [id number] Lens Intraoc 17.5 - [id number] - [id number] Implanted:Qty: 1 on 02/10/2020 by Jossue Mancera MD at OR [facility] Left: Eye [employer] 01/29/2024 [id number] / [id number] / [id number] documented as of this encounter Advance Directives Latest Code Status on File Code Status Date Activated Date Inactivated Comments Full Code 02/02/2023 10:32 PM 02/08/2023 8:57 PM Thi s order reflects the patients wishes and were consensually agreed upon. Question Answer Comments Discussion of Advance Directives occurred with: Patient Care Teams Retort Condenser Attendant Relationship Specialty Start Date End Date Rosendo Boyce DO [address] [place] [address] PCP - General Family Medicine 06/28/16 documented as of this encounter
--- OUTSIDE RECORDS SUMMARY | 2023-02-15 00:30 | External Medical Summary | Summary of Care ---
Author Name Unknown Organization [facility] Address [address] [facility] [place] [address] Phone [phone] Care Team Providers Care Analytical Research Program Manager Name Role Phone Rosendo Boyce DO Primary Care Provider Reason for Visit * Reason Onset Date Comments Hospital Follow-Up 02/11/2023 ESTRELLITA Advice 02/11/2023 Encounter Details Date Type Department Care Team ([facility] st Contact Info) Description 02/11/2023 Telephone [place] [address] [place] [address] Rosi Torre, R[facility]MON[facility] Hospital Follow-Up (ESTRELLITA); Advice Allergies Active Allergy Reactions Criticality Noted [...] encounter Miscellaneous Notes * Telephone Encounter - Kathy Boateng OSA - 02/11/2023 11:40 AM EST Reason for patient's call: returned the call Caller was transferred to [facility] at the nurse line. * Telephone Encounter - Rosi Torre RN - 02/11/2023 10:03 AM EST Transitions of Care Note Reason for Referral:Recent Admission Phone visit for follow up: ESTRELLITA #1 Ad[place]: [facility], Date: 02/02/2023 Discharged to:Home, Date: 02/08/2023 Diagnosis driving hospitalization: Acute gastric ulcer with hemorrhage 02/03/2023 EGD Changed medication: Pantoprazole Discontinued medications: Acyclovir, Apixaban, Famotidine, Fluticasone, Guaifenesin, Juice Plus Fibre, Prednisone, Spironolactone Attempted ESTRELLITA - no answer. Message left to return call to [phone] or . Reminded of PCP appointment 02/17/2023. Notified of late hours and weekend provider visits available if needed. Rosi Torre RN documented in this encounter Plan of Treatment Upcoming Encounters Date Type Department Care Team (Latest Contact Info) Description 02/17/2023 1:40 PM EST Office Visit Family Practice [facility] [address] [facility] [place] [address] Rosendo Boyce, DO 200 [facility] [place] [address] 02/28/2023 11:45 AM EST Cardiac Studies Cardiology, [facility] 132 [facility] [place] [address] [place], Pacer Clinic [facility] [place] [address] 03/12/2023 9:57 AM EST Hospital Encounter OR GL, Operating Room, [facility] - 4th Floor [address] [place] [address] Hope Stuart MD [address] [place] [address] 03/12/2023 9:57 AM EST - 03/12/2023 11:19 AM EST Surgery OR [facility], Operating Room, [facility] - 4th Floor [address] [place] [address] Hope Stuart MD [address] [place] [address] ESOPHAGOGASTRODUODENOSCOPY (EGD), FLEXIBLE, TRANSORAL, ENDOSCOPIC ULTRASOUND Scheduled Procedures Name Priority Associated Diagnoses Date/Ti me ESOPHAGOGASTRODUODENOSCOPY ( EGD), FLEXIBLE, TRANSORAL, ENDOSCOPIC ULTRASOUND [...] this encounter Medical Devices Implanted Type Area Propellant Charge Zone Assembler Device Identifier Shelf Expiration Date Model / Serial / Lot Lens Intraoc 17.0 - [id number] - [id number] Implanted:Qty: 1 on 02/01/2020 by Jossue Mancera MD at OR [facility] Right: Eye BAUSCH & LOMB 05/28/2024 [id number] / [id number] / [id number] Lens Intraoc 17.5 - [id number] - [id number] Implanted:Qty: 1 on 02/10/2020 by Jossue Mancera MD at OR [facility] Left: Eye BAUSCH & LOMB 01/29/2024 [id number] / [id number] / [id number] documented as of this encounter Advance Directives Latest Code Status on File Code Status Date Activated Date Inactivated Comments Full Code 02/02/2023 10:32 PM 02/08/2023 8:57 PM Thi s order reflects the patients wishes and were consensually agreed upon. Question Answer Comments Discussion of Advance Directives occurred with: Patient Care Teams Analytical Research Program Manager Relationship Specialty Start Date End Date Rosendo Boy[place] [address] PCP - General Family Medicine 06/28/16 documented as of this encounter
--- OUTSIDE RECORDS SUMMARY | 2023-02-15 00:30 | External Medical Summary | Summary of Care ---
Author Name Unknown Organization [facility] Address [address] [facility] [place] [address] Phone [phone] Care Team Providers Care House Cleaner Supervisor Name Role Phone Rosendo Boyce DO Primary Care Provider Reason for Visit * Reason Onset Date Comments Hospital Follow-Up 02/11/2023 ESTRELLITA Advice 02/11/2023 Encounter Details Date Type Department Care Team ([facility] st Contact Info) Description 02/11/2023 Telephone [place] [address] [place] [address] Rosi Torre, R[facility]MOND Hospital Follow-Up [...] returned the call Caller was transferred to [facility] at the nurse line. * Telephone Encounter - Rosi Torre RN - 02/11/2023 10:03 AM EST Transitions of Care Note Reason for Referral:Recent Admission Phone visit for follow up: ESTRELLITA #1 Admitted to: [facility], Date: 02/02/2023 Discharged to:Home, Date: 02/08/2023 Diagnosis driving hospitalization: Acute gastric ulcer with hemorrhage 02/03/2023 EGD Changed medication: Pantoprazole Discontinued medications: Acyclovir, Apixaban, Famotidine, Fluticasone, Guaifenesin, Juice Plus Fibre, Prednisone, Spironolactone Attempted ESTRELLITA - no answer. Message left to return call to [phone] or . Reminded of PCP appointment 02/17/2023. Notified of late hours and weekend provider visits available if needed. Rosi Torre RN documented in this encounter Plan of Treatment Upcoming Encounters Date Type Department Care Team (Latest Contact Info) Description 02/17/2023 1:40 PM EST Office Visit Family Practice [facility] [address] [facility] [place] [address] Rosendo Boyce, DO [address] [facility] [place] [address] 02/28/2023 11:45 AM EST Cardiac Studies Cardiology, [facility] 132 [facility] [place] [address] [place], Pacer Clinic [facility] [address] [facility] [place] [address] 03/12/2023 9:57 AM EST Hospital Encounter OR GL, Operating Room, [facility] - 4th Floor [address] [place] [address] Hope Stuart MD [address] [place] [address] 03/12/2023 9:57 AM EST - 03/12/2023 11:19 AM EST Surgery OR [facility], Operating Room, [facility] - 4th Floor [address] [place] [address] Hope Stuart MD [address] [place] [address] ESOPHAGOGASTRODUODENOSCOPY (EGD), FLEXIBLE, TRANSORAL, ENDOSCOPIC ULTRASOUND Scheduled [...] this encounter Medical Devices Implanted Type Area Sulfur Burner Device Identifier Shelf Expiration Date Model / Serial / Lot Lens Intraoc 17.0 - [id number] - [id number] Implanted:Qty: 1 on 02/01/2020 by Jossue Mancera MD at OR [facility] Right: Eye BAUSCH & LOMB 05/28/2024 [id number] / [id number] / [id number] Lens Intraoc 17.5 - [id number] - [id number] Implanted:Qty: 1 on 02/10/2020 by Jossue Mancera MD at OR [facility] Left: Eye BAUSCH & LOMB 01/29/2024 [id number] / [id number] / [id number] documented as of this encounter Advance Directives Latest Code Status on File Code Status Date Activated Date Inactivated Comments Full Code 02/02/2023 10:32 PM 02/08/2023 8:57 PM Thi s order reflects the patients wishes and were consensually agreed upon. Question Answer Comments Discussion of Advance Directives occurred with: Patient Care Teams House Cleaner Supervisor Relationship Specialty Start Date End Date Rosendo Boy[place] [address] PCP - General Family Medicine 06/28/16 documented as of this encounter
--- OUTSIDE RECORDS SUMMARY | 2023-02-15 00:30 | External Medical Summary | Summary of Care ---
Author Name Unknown Organization [facility] Address [address] [facility] [place] [address] Phone [phone] Care Team Providers Care Lead Data Architect Name Role Phone Rosendo Boyce DO Primary Care Provider Reason for Visit * Reason Onset Date Comments Hospital Follow-Up 02/11/2023 ESTRELLITA Advice 02/11/2023 Encounter Details Date Type Department Care Team ([facility] st Contact Info) Description 02/11/2023 Telephone [place] [address] [place] [address] Rosi Torre, R[facility]MOND Hospital Follow-Up [...] returned the call Caller was transferred to [facility] at the nurse line. * Telephone Encounter - Rosi Torre RN - 02/11/2023 10:03 AM EST Transitions of Care Note Reason for Referral:Recent Admission Phone visit for follow up: ESTRELLITA #1 Admitted to: [facility], Date: 02/02/2023 Discharged to:Home, Date: 02/08/2023 Diagnosis driving hospitalization: Acute gastric ulcer with hemorrhage 02/03/2023 EGD Changed medication: Pantoprazole Discontinued medications: Acyclovir, Apixaban, Famotidine, Fluticasone, Guaifenesin, Juice Plus Fibre, Prednisone, Spironolactone Attempted ESTRELLITA - no answer. Message left to return call to [phone] or . Reminded of PCP appointment 02/17/2023. Notified of late hours and weekend provider visits available if needed. Rosi Torre RN Transitions of Care Note Reason for Referral:Recent Admission Phone visit for follow up: ESTRELLITA #2 Admitted to: [facility], Date: 02/02/2023 Discharged to:Home, Date: 02/08/2023 Diagnosis driving hospitalization: Acute gastric ulcer with hemorrhage 02/03/2023 EGD Source/Contact: Spouse SUBJECTIVE Consent: Verbal consent for review of hospital discharge: Yes REVIEW OF SYSTEMS Patient/Other Reports: Current patient/caregiver problems or concerns: States isnt doing so well at home, just isn't getting better. Notes O2 2l/NC wearing continuously. O2 sat's in 90's. Sat drops quickly if she takes O2 off. Denies SOB. Eating and drinking but in small amounts. Drinking gingerale, had Cream of Wheat this AM. No further bleeding noted. + BM small. Has had pain "all over" relieved with Tylenol. CV: Denies problems Pulmonary: Denies problems Chills/Sweats/Fever:Denies chills/sweats Denies fever Appetite:Denies problems such as nausea, vomiting, burning, decreased appetite Current diet: Heart healthy Bowel: denies problems Bladder: denies problems Wound (If applicable): N/A Pain:See above Sleep:Up and down FUNCTIONAL STATUS: ADL'S: Needs Assistance With:Bathing, Eating, Dressing, and Toileting, helping, has bedsidecommode IADL'S: Needs Assistance With:Grocery Shopping, Cooking food, Routine Housework, Using telephone, Taking care of pets, and Taking medications Cognitive and Mental Health: denies problems, alert and oriented x 3, and able to communicate, understand instructions, process information. MEDICATION RECONCILIATION Medications: Discharge med list reviewed with patient or caregiver ASSESSMENT Medication Risk Assessment: No risks identified Did patient fail outpatient treatment? No Discharge instructions available for review? Yes PLAN Symptom Monitoring Interventions:Member/caregiver education - signs and symptoms to contact PrimaryCare (DO NOT DELETE-Three aguillon symptoms patient is to report to PCP) 1. Chest Pain/SOB 2. Fever/chills 3. Worsening symptoms Electric Razor MechanicRehab Director Occupational Therapist of Care interventions/Action Plan: 5 - 7 day follow-up with PCP in place - Date: PCP appointment 02/17/2023 Educated on role of ESTRELLITA completed with patient/caregiver. Educated patient/caregiver on patient right to have input on ESTRELLITA plan of care. Verification of Home Health/DME if indicated: NO Identified Care Gaps: No Care Gaps closed this call: Appointment made or confirmed and Transition of Care follow-up communication Re-evaluation of Plan of Care and progress towards goals achievement: Patient education this visit: Verbal, Confirmed PCP appointment, discussed reasons to call sooner as above Plan to instructed to call Primary Care Provider with change in symptoms or as needed before next follow-up, discharge needs met, verbalizes understanding and agrees with plan. Message sent to PCP for concerns above/advice. Rosi Torre RN documented in this encounter Plan of Treatment Upcoming Encounters Date Type Department Care Team (Latest Contact Info) Description 02/17/2023 1:40 PM EST Office Visit Family Practice [facility] [place] [address] [place] [address] Rosendo Boyce, [address] [facility] [place] [address] 02/28/2023 11:45 AM EST Cardiac Studies Cardiology, [facility] [address] [facility] [place] [address] Ernie Santo [facility] [address] [place] [place] [address] 03/12/2023 9:57 AM EST Hospital Encounter OR [facility], Operating Room, [facility] - 4th Floor [address] [place] [address] Hope Stuart MD [address] [place] [address] 03/12/2023 9:57 AM EST - 03/12/2023 11:19 AM EST Surgery OR [facility], Operating Room, [facility] - 4th Floor [address] [place] [address] Hope Stuart MD [address] [place] [address] ESOPHAGOGASTRODUODENOSCOPY (EGD), FLEXIBLE, TRANSORAL, ENDOSCOPIC ULTRASOUND Scheduled Procedures Name Priority Associated Diagnoses Date/Ti id ESOPHAGOGASTRODUODENOSCOPY ( EGD), FLEXIBLE, TRANSORAL, ENDOSCOPIC ULTRASOUND [...] this encounter Medical Devices Implanted Type Area Photoresist Printer Device Identifier Shelf Expiration Date Model / Serial / Lot Lens Intraoc 17.0 - [id number] - [id number] Implanted:Qty: 1 on 02/01/2020 by Jossue Mancera MD at OR [facility] Right: Eye BAUSCH & LOMB 05/28/2024 [id number] / [id number] / [id number] Lens Intraoc 17.5 - [id number] - [id number] Implanted:Qty: 1 on 02/10/2020 by Jossue Mancera MD at OR [facility] Left: Eye BAUSCH & LOMB 01/29/2024 [id number] / [id number] / [id number] documented as of this encounter Advance Directives Latest Code Status on File Code Status Date Activated Date Inactivated Comments Full Code 02/02/2023 10:32 PM 02/08/2023 8:57 PM Thi s order reflects the patients wishes and were consensually agreed upon. Question Answer Comments Discussion of Advance Directives occurred with: Patient Care Teams Lead Data Architect Relationship Specialty Start Date End Date Rosendo Boyce DO [address] [place] [address] PCP - General Family Medicine 06/28/16 documented as of this encounter
--- OUTSIDE RECORDS SUMMARY | 2023-02-15 00:30 | External Medical Summary | Summary of Care ---
Author Name Unknown Organization [facility] Address [address] [facility] [place] [address] Phone [phone] Care Team Providers Care Valet Manager Name Role Phone Rosendo Boyce DO Primary Care Provider [phone] Reason for Referral * Medication Prior Authorization - Closed Specialty Diagnoses / Procedures Referred By Xiomara t Referred To Contact Diagnoses Multiple myeloma not having achieved remission (HCC) Rosendo Boyce DO [address] [place] [address] Referral ID Status Reason Start Date Expiration Date Visits Re quested Visits Authorized [id number] Closed 999 999 Reason for Visit * Reason Onset Date Comments Advice 02/12/2023 Encounter Details Date Type Department Care Team (Late st Contact Info) Description 02/12/2023 Telephone Family Practice [facility] [address] [place] [address] Rosendo Boyce DO [address] [place] [address] Advice Allergies Active Allergy Reactions Criticality Noted Date Comments Pollen 01/24/2017 Ferrous Sulfate 03/08/2019 Couldn't tolerate Ferrous sulfate pills, but can take 1 a day vitamins Torsemide 03/06/2021 Itching documented as of this encounter (statuses as of 02/12/2023) Medications Medication Sig Dispensed Refills Start Date [...] and 2 Tablets before bedtime. 0 Active Escitalopram Oxalate 10 MG Oral Tablet (Lexapro)Indication s:Reactive depression Take 1 Tablet by mouth in the morning. 30 Tablet 5 02/12/2023 Active traMADol HCl 50 MG Oral Tablet (Ultram)Indications :Multiple myeloma not having achieved remission (HCC) Take 1 Tablet by mouth every 6 hours as needed for Pain, Severe. 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 JAQUAN (generalized anxiety disorder) 07/06/2018 07/15/2018 NO KNOWN PROBLEMS 07/31/2007 08/02/2017 documented as of this encounter (statuses as of 02/12/2023) Immunizations Name Administration Dates Next Due COVID-19 mRNA, LNP-s, No Pre serve, 2-Dose Series (Moderna) 06/01/2020,05/04/2020 COVID-19, mRNA, LNP-s, PF, B ooster, 100mcg/0.5mg (Moderna) 03/14/2021 Pneumococcal Conjugate Vacc, 13 Valent (Prevnar) 06/28/2016 Pneumococcal Polysaccharide PPV23 (Pneumovax) 04/08/2012 SEASONAL INFLUENZA, PF, 6 M & Above, IM , (FLULAVAL or FLUZONE) 12/29/2019,01/14/2018,02/28/2017 Seasonal Influenza, Quadriva lent Hd (Fluzone Hd) 01/20/2023,12/26/2020 Seasonal Influenza, Quadriva lent, No Preserve, IM 12/13/2015 Seasonal Influenza, Split, I IV3, With Preserve, Inj 03/02/2015,04/01/2013,04/08/2012,01/22 Seasonal Influenza, Trivalen t, Adjuvanted, 65+ yrs 01/19/2019 TDAP (age 11 and older)(Adacel) 08/31/2009 Varicella Zoster Vaccine (Adult) 06/10/2011 documented as of this encounter Social History Tobacco Use Types Packs/Day Years Used Date Smoking Tobacco: Former Cigarettes Q uit: 03/31/1967 Smokeless Tobacco: Never Comments:quit early 21 Alcohol Use Standard Drinks/Week Comments No 0 [...] encounter Miscellaneous Notes * Telephone Encounter - Stacy Garnett LPN - 02/12/2023 2:50 PM EST Patient's aware. * Telephone Encounter - Rosendo Boyce DO - 02/12/2023 2:27 PM EST Please call: I sent for lexapro for her to start again for her mood. I also sent for Tramadol to take as needed to help with her pain. * Telephone Encounter - Dada Schwartz OSA - 02/12/2023 1:12 PM EST Patient's Shravan calling in on patient's behalf to request a stronger pain medicine than Tylenol, and a home health aide if possible. Shravan stated that patient used to take antidepressant when she was on hospice and given 3 weeks to live over a year ago, and the antidepressant helped her mood so she could continue. Shravan is unsure on what the medication was, but her chart indicated it could have been Lexapro or Lorazepam. Shravan stated that she is acting the same as back then, stuck in bed and not very active. Shravan asking for prescription to be sent to [facility] if appropriate, and message to be sent urgently. Please advise Shravan at [phone]. Thank you, Dada Schwartz Appeals Coordinator I Patient Contact Center documented in this encounter Plan of Treatment Upcoming Encounters Date Type Department Care Team (Latest Contact Info) Description 02/17/2023 1:40 PM EST Office Visit [facility] [address] [place] [address] Rosendo Boyce, [address] [facility] [place] [address] 02/28/2023 11:45 AM EST Cardiac Studies Cardiology, [facility] [address] [place] [address] [address] [facility] [address] [place] [address] 03/12/2023 9:57 AM EST Hospital Encounter OR [facility], Operating Room, [facility] - 4th Floor [address] [place] [address] Hope Stuart MD [address] [place] [address] 03/12/2023 9:57 AM EST - 03/12/2023 11:19 AM EST Surgery OR [facility], Operating Room, [facility] - 4th Floor [address] [place] [address] Hope Stuart MD [address] [place] [address] ESOPHAGOGASTRODUODENOSCOPY (EGD), FLEXIBLE, TRANSORAL, ENDOSCOPIC ULTRASOUND Scheduled Procedures Name Priority Associated Diagnoses Date/Ti wy ESOPHAGOGASTRODUODENOSCOPY ( EGD), FLEXIBLE, TRANSORAL, ENDOSCOPIC ULTRASOUND [...] this encounter Medical Devices Implanted Type Area Licensed Midwife Device Identifier Shelf Expiration Date Model / Serial / Lot Lens Intraoc 17.0 - [id number] - [id number] Implanted:Qty: 1 on 02/01/2020 by Jossue Mancera MD at OR [facility] Right: Eye BAUSCH & LOMB 05/28/2024 [id number] / [id number] / [id number] Lens Intraoc 17.5 - [id number] - [id number] Implanted:Qty: 1 on 02/10/2020 by Jossue Mancera MD at OR [facility] Left: Eye BAUSCH & LOMB 01/29/2024 [id number] / [id number] / [id number] documented as of this encounter Visit Diagnoses Diagnosis Multiple myeloma not having achieved remission (HCC)- Primary Multiple myeloma, without mention of having achieved remission Reactive depression Dysthymic disorder Choledocholithiasis Calculus of bile duct without mention of cholecystitis or obstruction documented in this encounter Advance Directives Latest Code Status on File Code Status Date Activated Date Inactivated Comments Full Code 02/02/2023 10:32 PM 02/08/2023 8:57 PM Thi s order reflects the patients wishes and were consensually agreed upon. Question Answer Comments Discussion of Advance Directives occurred with: Patient Care Teams Valet Manager Relationship Specialty Start Date End Date Rosendo Boyce DO [address] [place] [address] PCP - General Family Medicine 06/28/16 documented as of this encounter
--- OUTSIDE RECORDS SUMMARY | 2023-02-15 00:30 | External Medical Summary | Summary of Care ---
Author Name Unknown Organization [facility] Address [address] [facility] [address] Phone [phone] Care Team Providers Care Oil Refiner Name Role Phone Rosendo Boyce DO Primary Care Provider [phone] Reason for Visit * Reason Onset Date Comments Advice 02/11/2023 Encounter Details Date Type Department Care Team ([facility] st Contact Info) Description 02/11/2023 Telephone [facility] [address] [facility] [place] [address] Rosendo Boyce DO [address] [facility] [address] Advice Allergies Active Allergy Reactions Criticality [...] uit: 03/31/1966 Smokeless Tobacco: Never Comments:quit early 20' Alcohol Use Standard Drinks/Week Comments No 0 [...] encounter Miscellaneous Notes * Telephone Encounter - Rosi Torre RN - 02/11/2023 12:44 PM EST Provider to address: ESTRELLITA completed for patient for discharge [facility] 02/08/2023 for Acute gastric ulcer with hemorrhage. [...] 1:40 PM EST Office Visit Family Practice [facility] [address] [facility] [place] [address] Rosendo Boyce, DO [address] [facility] [place] [address] 02/28/2023 11:45 AM EST Cardiac Studies Cardiology, [facility] [address] [place] [address] [place], Pacer Clinic [facility] [address] [place] [address] 03/12/2023 9:57 AM EST Hospital Encounter OR [facility], Operating Room, [facility] - 4th Floor [address] [place] [id number] Hope Stuart MD [address] [place] [address] 03/12/2023 9:57 AM EST - 03/12/2023 11:19 AM EST Surgery OR [facility], Operating Room, [facility] - 4th Floor [address] [place] [address] Hope Stuart MD [address] [place] [address] ESOPHAGOGASTRODUODENOSCOPY (EGD), FLEXIBLE, TRANSORAL, ENDOSCOPIC ULTRASOUND Scheduled [...] this encounter Medical Devices Implanted Type Area Ms Sql Developer Device Identifier Shelf Expiration Date Model / Serial / Lot Lens Intraoc 17.0 - [id number] - [id number] Implanted:Qty: 1 on 02/01/2020 by Jossue Mancera MD at OR [facility] Right: Eye BAUSCH & LOMB 05/28/2024 [id number] / [id number] / [id number] Lens Intraoc 17.5 - [id number] - [id number] Implanted:Qty: 1 on 02/10/2020 by Jossue Mancera MD at OR [facility] Left: Eye BAUSCH & LOMB 01/29/2024 [id number] / [id number] / [id number] documented as of this encounter Advance Directives Latest Code Status on File Code Status Date Activated Date Inactivated Comments Full Code 02/02/2023 10:32 PM 02/08/2023 8:57 PM Thi s order reflects the patients wishes and were consensually agreed upon. Question Answer Comments Discussion of Advance Directives occurred with: Patient Care Teams Oil Refiner Relationship Specialty Start Date End Date Rosendo Boyce DO [address] [place] [address] PCP - General Family Medicine 06/28/16 documented as of this encounter
--- OUTSIDE RECORDS SUMMARY | 2023-02-15 00:30 | External Medical Summary | Summary of Care ---
Author Name Unknown Organization [facility] Address [address] [facility] [place] [address] Phone [phone] Care Team Providers Care Product Manager Medical Device Name Role Phone Rosendo Boyce DO Primary Care Provider Reason for Visit * Reason Onset Date Comments Hospital Follow-Up 02/11/2023 ESTRELLITA Advice 02/11/2023 Encounter Details Date Type Department Care Team ([facility] st Contact Info) Description 02/11/2023 Telephone [place] [address] [place] [address] Rosi Torre, [place] Hospital Follow-Up [...] returned the call Caller was transferred to [facility] at the nurse line. * Telephone Encounter - Rosi Torre RN - 02/11/2023 10:03 AM EST Transitions of Care Note Reason for Referral:Recent Admission Phone visit for follow up: ESTRELLITA #1 Admitted to: [facility], Date: 02/02/2023 Discharged to:Home, Date: 02/08/2023 Diagnosis driving hospitalization: Acute gastric ulcer with hemorrhage 02/03/2023 EGD Changed medication: Pantoprazole Discontinued medications: Acyclovir, Apixaban, Famotidine, Fluticasone, Guaifenesin, Juice Plus Fibre, Prednisone, Spironolactone Attempted ESTRELLITA - no answer. Message left to return call to [phone] or . Reminded of PCP appointment 02/17/2023. Notified of late hours and weekend provider visits available if needed. Rosi Torre RN Transitions of Care Note Reason for Referral:Recent Admission Phone visit for follow up: ESTRELLITA #2 Admitted to: [facility], Date: 02/02/2023 Discharged to:Home, Date: 02/08/2023 Diagnosis [...] Chest Pain/SOB 2. Fever/chills 3. Worsening symptoms Electrical Power EngineerEye Specialist of Care interventions/Action Plan: 5 - 7 [...] met, verbalizes understanding and agrees with plan. Rosi Torre, RN documented in this encounter Plan of Treatment Upcoming Encounters Date Type Department Care Team (Latest Contact Info) Description 02/17/2023 1:40 PM EST Office Visit Family Practice [facility] [address] [place] [address] Rosendo Boyce, DO [address] [facility] [place] [address] 02/28/2023 11:45 AM EST Cardiac Studies Cardiology, [facility] [address] [facility] [place] [address] [facility] [address] [place] [address] 03/12/2023 9:57 AM EST Hospital Encounter OR [facility], Operating Room, [facility] - 4th Floor [address] [place] [address] Hope Stuart MD [address] [place] [address] 03/12/2023 9:57 AM EST - 03/12/2023 11:19 AM EST Surgery OR [facility], Operating Room, [facility] - 4th Floor [address] [place] [address] Hope Stuart MD [address] [place] [address] ESOPHAGOGASTRODUODENOSCOPY (EGD), FLEXIBLE, TRANSORAL, ENDOSCOPIC ULTRASOUND Scheduled Procedures Name Priority Associated Diagnoses Date/Ti mt ESOPHAGOGASTRODUODENOSCOPY ( EGD), FLEXIBLE, TRANSORAL, ENDOSCOPIC ULTRASOUND [...] this encounter Medical Devices Implanted Type Area Drafter Geophysical Device Identifier Shelf Expiration Date Model / Serial / Lot Lens Intraoc 17.0 - [id number] - [id number] Implanted:Qty: 1 on 02/01/2020 by Jossue Mancera MD at OR [facility] Right: Eye BAUSCH & LOMB 05/28/2024 [id number] / [id number] / [id number] Lens Intraoc 17.5 - [id number] - [id number] Implanted:Qty: 1 on 02/10/2020 by Jossue Mancera MD at OR [facility] Left: Eye BAUSCH & LOMB 01/29/2024 [id number] / [id number] / [id number] documented as of this encounter Advance Directives Latest Code Status on File Code Status Date Activated Date Inactivated Comments Full Code 02/02/2023 10:32 PM 02/08/2023 8:57 PM Thi s order reflects the patients wishes and were consensually agreed upon. Question Answer Comments Discussion of Advance Directives occurred with: Patient Care Teams Product Manager Medical Device Relationship Specialty Start Date End Date Rosendo Boyce DO [address] [place] [address] PCP - General Family Medicine 06/28/16 documented as of this encounter
--- OUTSIDE RECORDS SUMMARY | 2023-02-15 00:31 | External Medical Summary ---
Author Name Unknown Address Unknown Organization K01:[facility] [address] [facility] [address] Laboratory Report Ordering Provider Test Date Status BRITTNY PERRY 02/06/2023 06:33:00 Final Observation Date Value Abnormality Reference (Units ) Status BUN 02/06/2023 06:33:00 20 6-20 (mg/dL) Final Creatinine 02/06/2023 06:33:00 0.7 0.5-1.0 (mg/dL) Final Glomerular filtration rate/1.73 sq M.predicted [Volume Rate/Area] in Serum, Plasma or Blood by Creatinine-based formula (CKD-EPI) 02/06/2023 06:33:00 >90 >=60 (mL/min) Final eGFR is calculated based on the CKD-EPI 2020 equation SODIUM 02/06/2023 06:33:00 137 135-146 (m mol/L) Final Potassium 02/06/2023 06:33:00 4.0 3.5-5.1 (m mol/L) Final Cl 02/06/2023 06:33:00 104 98-107 (mm ol/L) Final CO2 02/06/2023 06:33:00 23 22-32 (mmo l/L) Final Anion gap 02/06/2023 06:33:00 10 7-15 (mmol /L) Final Glucose 02/06/2023 06:33:00 114 70-120 (mg /dL) Final Calcium 02/06/2023 06:33:00 8.4 8.4-10.2 ( mg/dL) Final Performing Location [facility] [address] [facility] [address]
--- OUTSIDE RECORDS SUMMARY | 2023-02-15 00:31 | External Medical Summary ---
Author Name Unknown Address Unknown Organization K01:[facility]ORY [facility] - [address] [place] [address] Laboratory Report Ordering Provider Test Date Status BRITTNY PERRY 02/07/2023 07:40:00 Final Observation Date Value Abnormality Reference (Units ) Status Phosphate 02/07/2023 07:40:00 2.4 Below low normal 2.5 -4.8 (mg/dL) Final Performing Location [facility] - [address] [place] [address]
--- OUTSIDE RECORDS SUMMARY | 2023-02-15 00:31 | External Medical Summary | Summary of Care ---
Author Name Unknown Organization [facility] Address [address] [place] [facility] [place] [address] Phone [phone] Care Team Providers Care Supervisor Livestock Yard Name Role Phone Rosendo Boyce DO Primary Care Provider [phone] Reason for Visit * Reason Onset Date Comments Hospital Follow-Up 02/11/2023 ESTRELLITA Encounter Details Date Type Department Care Team ([facility] st Contact Info) Description 02/11/2023 Telephone [facility] [address] [place] [address] Rosi Torre, [place] Hospital Follow-Up (ESTRELLITA) Allergies Active Allergy Reactions Criticality Noted Date [...] uit: 03/31/1966 Smokeless Tobacco: Never Comments:quit early Alcohol Use Standard Drinks/Week Comments No 0 [...] for follow up: ESTRELLITA #1 Admitted to: [facility], Date: 02/02/2023 Discharged to:Home, Date: 02/08/2023 Diagnosis driving hospitalization: Acute gastric ulcer with hemorrhage 02/03/2023 EGD Changed medication: Pantoprazole Discontinued medications: Acyclovir, Apixaban, Famotidine, Fluticasone, Guaifenesin, Juice Plus Fibre, Prednisone, Spironolactone Attempted ESTRELLITA - no answer. Message left to return call to [phone] or . Reminded of PCP appointment 02/17/2023. Notified of late hours and weekend provider visits available if needed. Rosi Torre RN documented in this encounter Plan of Treatment Upcoming Encounters Date Type Department Care Team (Latest Contact Info) Description 02/17/2023 1:40 PM EST Office Visit Family Practice [facility] [address] [facility] [place] [address] Rosendo Boyce, [address] [facility] [place] [address] 02/28/2023 11:45 AM EST Cardiac Studies Cardiology, [facility] [address] [facility] [place] [address] Ernie Santo [facility] [address] [place] [address] 03/12/2023 9:57 AM EST Hospital Encounter OR [facility], Operating Room, [facility] - 4th Floor [address] [place] [address] Hope Stuart MD [address] [place] [address] 03/12/2023 9:57 AM EST - 03/12/2023 11:19 AM EST Surgery OR [facility], Operating Room, [facility] - 4th Floor [address] [place] [address] Hope Stuart MD [address] [place] [address] ESOPHAGOGASTRODUODENOSCOPY (EGD), FLEXIBLE, TRANSORAL, ENDOSCOPIC ULTRASOUND Scheduled [...] this encounter Medical Devices Implanted Type Area Banking And Finance Instructor Device Identifier Shelf Expiration Date Model / Serial / Lot Lens Intraoc 17.0 - [id number] - [id number] Implanted:Qty: 1 on 02/01/2020 by Jossue Mancera MD at OR [facility] Right: Eye BAUSCH & LOMB 05/28/2024 [id number] / [id number] / [id number] Lens Intraoc 17.5 - [id number] - [id number] Implanted:Qty: 1 on 02/10/2020 by Jossue Mancera MD at OR [facility] Left: Eye BAUSCH & LOMB 01/29/2024 [id number] / [id number] / [id number] documented as of this encounter Advance Directives Latest Code Status on File Code Status Date Activated Date Inactivated Comments Full Code 02/02/2023 10:32 PM 02/08/2023 8:57 PM Thi s order reflects the patients wishes and were consensually agreed upon. Question Answer Comments Discussion of Advance Directives occurred with: Patient Care Teams Supervisor Livestock Yard Relationship Specialty Start Date End Date Rosendo Boyce DO [address] [place] [address] PCP - General Family Medicine 06/28/16 documented as of this encounter
--- OUTSIDE RECORDS SUMMARY | 2023-02-15 00:31 | External Medical Summary | Summary of Care ---
Author Name Unknown Organization [facility] Address [address] [place] [address] Phone [phone] Care Team Providers Care Rn Allergy Name Role Phone ChristoferRosendo wolff Gogo FISCHER Primary Care Provider [phone] Reason for Visit * Auth/Cert Specialty Diagnoses / Procedures Referred By Contac t Referred To Contact Diagnoses Bleeding gastric ulcer Upper GI bleed Bleeding gastric ulcer Referral ID Status Reason Start Date Expiration Date Visits Re quested Visits Authorized [id number] Encounter Details Date Type Department Care Team (Latest Contact Info) Description 02/02/2023 10:27 PM EST - 02/08/2023 4:57 PM EST Hospital Encounter HFAM 6, [facility] Advanced Medicine 6th Floor [address], [place] [id number] Marcos Avila MD [address] [place] [address] Shreyas Lerma DO [address], [place] [id number] Manjinder Adame MD [address] [facility] Hospitalist Services [place], [place] [id number] Santa Franco MD [address] [facility] [place], [place] [id number] Various: UGI,EKG,CDIQDC Discharge Disposition: Home with Services Allergies Active Allergy Reactions Criticality Noted Date Comments Pollen 01/24/2017 Ferrous Sulfate 03/08/2019 Couldn't tolerate Ferrous sulfate pills, but can take 1 a day vitamins Torsemide 03/06/2021 Itching documented as of this encounter (statuses as of 02/09/2023) Medications Medication Sig Dispensed Refills Start Date End Date Status Vitamin B-12 1000 MCG Oral Tablet Take 1 Tablet by mouth in the morning. 0 Active Ondansetron HCl 8 MG Oral Tablet (Zofran)Indicati ons:Cardiac amyloidosis (HCC) Take 1 Tab by mouth every 8 hours as needed for Nausea. 30 Tab 0 1 Active Vitamin D-3 25 MCG (1000 UT) Oral Capsule Take 1 Capsule by mouth in the morning. 0 Active Prochlorperazine Maleate 10 MG Oral Tablet (Compazine)Indic ations:Cardiac amyloidosis (HCC) Take by mouth 1 Tablet every 6 hours as needed for Nausea. 60 Tablet 2 2 Active Nitroglycerin 0.4 MG Sublingual Tablet Sublingual (Nitrostat) Place 1 Tablet under the tongue every 5 minutes as needed for Pain, Chest. 0 2 Active Sucralfate 1 GM/10ML Oral Suspension (Carafate) Take 10 mL by mouth in the morning and 10 mL at noon and 10 mL in the evening and 10 mL before bedtime. 420 mL 5 3 Active Polyethylene Glycol 3350 17 GM/SCOOP Oral Powder (Miralax) TAKE 17 GRAMS DIRECTED DAILY NEEDED FOR CONSTIPATION 255 g 0 3 Active Amiodarone HCl 200 MG Oral Tablet (Cordarone)Indic ations:Tachy-bra dy syndrome (HCC) Take 1 Tablet by mouth in the morning and 1 Tablet before bedtime. 60 Tablet 5 3 Active Midodrine HCl 2.5 MG Oral Tablet (Proamatine)Felicia cations:Tachy-br bernadette syndrome (HCC) Take 1 Tablet by mouth in the morning and 1 Tablet at noon and 1 Tablet before bedtime. 90 Tablet 5 3 Active Levothyroxine Sodium 50 MCG Oral Tablet (Levoxyl) Take 1 Tablet by mouth in the morning. (at least 30 min prior to breakfast or other meds). 30 Tablet 11 3 Active Pantoprazole Sodium 40 MG Oral Tablet Delayed Release (Protonix)Indica tions:Gastric ulcer without hemorrhage or perforation, unspecified chronicity Take 1 Tablet by mouth in the morning and 1 Tablet in the evening. 0 3 Active Furosemide 40 MG Oral Tablet (Lasix) Take 2 Tablets by mouth in the morning and 2 Tablets before bedtime. 0 Active Potassium Chloride Ofelia ER 10 MEQ Oral Tablet Extended Release Take 2 Tablets by mouth in the morning and 2 Tablets before bedtime. 0 Active Juice Plus Fibre Oral Liquid Take 4 Tabs by mouth daily. 0 02/09/20 23 Discontinued Fluticasone Propionate 50 MCG/ACT Nasal SuspensionIndica tions:Chronic rhinitis (2) sprays each nostril once daily -for nasal congestion 18.2 mL 5 2 02/09/20 23 Discontinued Famotidine 20 MG Oral Tablet (Pepcid) Take 1 Tablet by mouth in the morning and 1 Tablet before bedtime. 0 02/09/20 23 Discontinued Acyclovir 400 MG Oral Tablet (Zovirax)Indicat ions:Cardiac amyloidosis (HCC),Multiple myeloma not having achieved remission (HCC) Take by mouth 1 Tablet in the morning AND 1 Tablet before bedtime. 30 Tablet 5 2 02/09/20 23 Discontinued Spironolactone 25 MG Oral Tablet (Aldactone)Indic ations:Chronic diastolic congestive heart failure (HCC) Take 1 Tablet by mouth in the morning. 90 Tablet 0 3 02/09/20 23 Discontinued Doxycycline Hyclate 100 MG Oral Capsule Take 1 Capsule by mouth in the morning and 1 Capsule before bedtime. 0 3 02/04/20 23 Discontinued(End of Procedure) predniSONE 10 MG Oral Tablet (Deltasone) Take 1 Tablet by mouth in the morning. 40mg daily x 1 day then 30mg daily x 2 days then 20mg daily x 2 days, then 10mg daily x 2 days then stop.. 0 3 02/09/20 23 Discontinued guaiFENesin ER 1200 MG Oral Tablet Extended Release 12 Hour Take 600 mg by mouth in the morning and 600 mg in the evening. 0 02/09/20 23 Discontinued Pantoprazole Sodium 40 MG Oral Tablet Delayed Release (Protonix)Indica tions:Gastric ulcer without hemorrhage or perforation, unspecified chronicity Take 1 Tablet by mouth in the morning. 60 Tablet 5 3 02/09/20 Discontinued(Ref ill) Apixaban 5 MG Oral Tablet (Eliquis) Take 1 Tablet by mouth in the morning and 1 Tablet before bedtime. 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 JAQUAN (generalized anxiety disorder) 07/06/2018 07/15/2018 NO KNOWN PROBLEMS 07/31/2007 08/02/2017 documented as of this encounter (statuses as of 02/09/2023) Immunizations Name Administration Dates Next Due COVID-19 [...] on file documented as of this encounter Last Filed Vital Signs Vital Sign Reading Time Taken Comments Blood Pressure 115/58 02/08/2023 3:57 PM EST Pulse 62 02/08/2023 3:57 PM EST Temperature 36.6 C (97.9 F) 02/08/2023 3:57 PM ES T Respiratory Rate 18 02/08/2023 3:57 PM EST Oxygen Saturation 96% 02/08/2023 3:57 PM EST Inhaled Oxygen Concentration - - Weight 64.9 kg (143 lb) 02/08/2023 7:00 AM EST Height 157.5 cm (5' 2") 02/02/2023 10:30 PM EST Body Mass Index 26.16 02/02/2023 10:30 PM EST documented in this encounter Functional Status Functional Status Response [...] (15 years old or older) No 02/03/20 Cognitive Status Response Date of Assessm ent Because of a physical, menta l, or emotional condition, do you have serious difficulty concentrating, remembering, or making decisions? (5 years old or older No 02/02/2023 documented as of this encounter Discharge Instructions * Discharge Instr - AVS* Santa Franco MD - 02/08/2023 3:44 PM EST Discharge Date: 02/08/2023 The information below provides you with the instructions and the list of medications you need to betaking following discharge from the hospital. If you have any questions, please ask before leaving. If you have questions after leaving, you can reach us at the numbers below. YOUR HOSPITAL PROVIDERS: Discharging Provider: Santa Franco MD Provider Department: Hospital Medicine To reach this Provider Friday through Friday (8:00 AM to 4:30 PM) for any questions or test results: Call [phone] For after-hours concerns: Call [phone] and have your provider paged, or the provider global implementation manager for the Department of Hospital Medicine paged. Please note, the discharging provider will not be able to provide you with any medications refills.Please discuss these with your primary care provider. Worsening Symptoms: If you have new symptoms, or your symptoms get worse, please contact your Discharge Provider or Primary Care Provider (PCP). If these providers are not available, you can go to your local [facility] services or Urgent Care Clinic during their business hours. In an EMERGENCY situation: Call 911 or go to the nearest emergency room. A BRIEF SUMMARY OF YOUR HOSPITAL STAY: You came to the hospital with: hemorrhagic shock - bleeding to point of shock. You underwent the procedure as detailed below ( egd ) and determined to have a gastric ulcer. Your main diagnosis at discharge was: hemorrhagic shock due to gastric ulcer. Operations & Procedures performed: egd Complications: none significant Changes in medications: No recurrence of bleed, hgb has been stable; eliquis not restarted. biopsy did not demonstrate dysplasia or sign of cancer. Continue PO omeprazole 40 mg BID to complete 8 weeks of therapy then omeprazole 40 mg once daily - continue sucralfate 1 g QID until EGD - Repeat EGD on 03/[address] [place] to check for healing (already schedule for EUS-GB drainage) Continues the other medicines from your recent admission - lasix, potassium, amiodarone; Would recommend to schedule an appointment with your heart doctors. Arrangements made for ambulatory oxygen - 2 liters with exertion Inpatient test results that are pending at discharge: none Advance Directive Documented: Advance Directive Does the Patient have an Advance Directive? No YOUR FOLLOW UP APPOINTMENTS: Primary Care Provider Information: PCP: Rosendo Boyce DO [address] [facility] [place] / [facility] [address] (office) [phone] (fax) An appointment was requested with your PCP (Rosendo Boyce DO) within 5 days . (Please take this form to this visit with your primary care physician.) You need the following studies in the future: cbc at next primary care appointment INSTRUCTIONS: Diet: Heart healthy Activity: no heavy exertion, use of walker Respiratory support at discharge: oxygen at 2 L : setting - with activity Additional Instructions: - Call your primary care physician or seek medical attention if increased shortness of breath, recurrent bleeding from the gi tract. - Do not use alcohol products in anyway! - Use caution when standing or walking since you are at an increased risk for falls - Do not take [id number] NSAIDs (nonsteroid anti-inflammatory medications); ie. Advil, Motrin, Ibuprofen, etc. documented in this encounter Progress Notes * Santa Franco MD - 02/07/2023 10:19 AM EST Images from the original note were not included. [facility] H652/A INTERVAL HISTORY: History reviewed. Transfer from icu; presented with hemorrhagic shock and determined to have large gastric ulcer. Feels sob,uses lasix prn at home; recent dx of cardiac amyloid;pacer placed; eliquis started, Had been on eliquis for short time and indicates she does not want to resume Multiple myeloma - on review of chart/ prior scans she has been treated with multiple agents ( sideeffects of multiple) was on hospice at one point Would like solid diet, notes some mild sob, states takes lasix prn at home. No recurrent episodes of hematemesis, no chest pain - notes will sometims have this with exertion. Objective Physical Exam Most Recent Vital Signs: BP: 139 mmHg/66 mmHg (02/07/23814) Pulse: 64 (02/07/23814) Temp: 36.39 C (02/07/23814) Resp: 18 (02/07/23814) SpO2: 94 % (02/07/23814) General: sitting upright in bed, mildly anxious, has oxygen in place. HEENT: normocephalic, atraumatic Heart: regular rate and rhythm; S1 and S2 present; no murmurs, rubs or gallops. Pulmonary: decreased breath sounds at the bases bilaterally ; crackles on the left. Abdomen: Soft, non-tender, distended. Normal bowel sounds and no rebound or guarding. MSK: Patient able to ambulate; Gross motor function intact Extremities: No pitting edema present at lower extremity bilaterally Skin: [place], warm, no wounds or lesions present. Neuro: AAOx3. No gross motor or sensory deficits. Psych: Anxious, flatter affect Urethral Catheter Regular catheter (Active) Number of days: 4 Peripheral Line Left;Upper Arm 22 Gauge (Active) Number of days: 2 Peripheral Line Right;Lower Arm 22 Gauge (Active) Number of days: 2 STUDIES: Encounter Orders Labs and other studies reviewed with pertinent findings noted below: Po4 = 2.4 Hgb = 9.8 Assessment and Plan IMPRESSION : Principal Problem: Acute gastric ulcer with hemorrhage Active Problems: Multiple myeloma not having achieved remission (HCC) Chronic diastolic congestive heart failure (HCC) Cardiac amyloidosis (HCC) Upper GI bleed Acute blood loss anemia Hemorrhagic shock (HCC) Resolved Problems: * No resolved hospital problems. * DIFFERENTIAL AND PLAN: Gastric ulcer Upper gi bleed, Acute blood loss anemia No recurrence of bleed, hgb has been stable; asa and eliquis not restarted. Pt informed that biopsy did not demonstrate dysplasia or sign of cancer. Continue PO omeprazole 40 mg BID to complete 8 weeks of therapy then omeprazole 40 mg once daily - continue sucralfate 1 g QID until EGD - recommend bowel regimen with sucralfate - Repeat EGD on 03/[address] [place] to check for healing (already schedule for EUS-GB drainage) Cardiac amyloidosis Chronic diastolic chf - give lasix 40 mg iv Multiple myeloma - post investigation she has had multiple treatments; will refer as outpatient to her primary multi slide machine tender - Dr. Luevano 0 PHARMACOLOGIC VTE PROPHYLAXIS: This patient does not have an active medication from one of the medication groupers. CODE STATUS: Full Code EXPECTED DISCHARGE DATE: 02/08/2023 I spent a total of 52 minutes coordinating, documenting, and providing care for this patient excluding time spent in the performance of separately billed services. * Manjinder Adame MD - 02/07/2023 12:10 AM EST TRANSFER RECEIVING NOTE - hospital medicine [facility] [address] Name: Anel Hogue Current Location: [address] HANDOFF COMMUNICATION: Sending patient service: Critical Care Medicine Accepting service: Hospital Medicine Sending attending aware of patient and transfer: yes Receiving attending aware of patient and transfer: yes Name of receiving attending provider: Manjinder Adame MD Patient care is being assumed by receiving service: Around 1:00 a.m. Reason for transfer: Improved Primary ICU Problem: ABLA 2/2 gastric ulcer with oozing hemorrhage requring hemostatic spray ICU Course/Complications: Anel Hogue was admitted to ICU due to concerns of hemorrhagic shock in the setting of acute blood loss anemia secondary to gastric ulcer with oozing hemorrhage status post EGD with hemostatic spray on 02/03/2023. Patient was taken back for a follow up EGD on 02/06/2023 (see procedure reports in chart for more details). Following EGD, patient remained stable and determined ready to be transferred to the floor. She did have an episode of non-sustained vt which self resolved. Electrolytes from [facility] today all normal. If recurs would repeat electrolytes and she should continue tele monitoring SUBJECTIVE: Patient denies any specific symptoms CURRENT HOSPITAL MEDICATIONS: Note that completed medications (per the MAR) continue to display for 24 hours. Ordered medicationsto be given in the future also display. Current Facility-Administered Medications Medication Dose Route Frequency Provider omeprazole (PriLOSEC) cap 40 mg 40 mg Oral BID(AM/PM) Minnie Leong, oxygen GAS Inhalation Oxygen Jose Daniels DO Acyclovir (Zovirax) tab 400 mg 400 mg Oral BID(AM/PM) Janae Mcdaniels, GENEVA ondansetron (Zofran) inj 4 mg 4 mg IV Push Q6H PRN Kodi Pantoja PA-C oxygen GAS Inhalation Oxygen Shiva Pineda MD amiodarone (Cordarone) tab 200 mg 200 mg Oral BID(AM/PM) Kodi Pantoja PA-C chlorHEXIDINE (Periogard) 0.12 % oral rinse 15 mL 15 mL Oral mucosal membrane BID (0800,1999) Kodi Pantoja PA-C levothyroxine (Levoxyl) tab 50 mcg 50 mcg Oral Daily 0630 Kodi Pantoja PA-C midodrine HCl (Proamatine) tab 2.5 mg 2.5 mg Oral TID(AM/NOON/HS) Kodi Pantoja PA-C Oral Hygiene: Mouth Swab with dentifrice Oral Q4H Limited (00;04;12;16) Kodi Pantoja PA-C sodium chloride 0.9 % flush peripheral jossy 3 mL 3 mL IV Push Q8H Kodi Pantoja PA-C Sucralfate (Carafate) susp 1,000 mg 1 g Oral QID(AM/NOON/PM/HS) Kodi Pantoja PA-C TRANSFER MEDICATION RECONCILIATION COMPLETED? yes REVIEW OF SYSTEMS: As per HPI all others negative OBJECTIVE: Most Recent Vital Signs: BP: 98 mmHg/56 mmHg (02/07/23438) Pulse: 65 (02/07/23438) Temp: 36.5 C (02/07/23438) Resp: 17 (02/07/23438) SpO2: 97 % (02/07/23438) Vital Signs Last 24 Hours: Systolic BP: Most Recent Systolic BP Av.4 mmHg Min: 96 mmHg Max: 152 mmHg Temperature: Most Recent Temperature Av.5 C Min: 35.78 C Max: 37.11 C Pulse: Pulse Av.7 Min: 60 Max: 86 Respirations: Resp Av.5 Min: 16 Max: 26 SpO2: SpO2 Av % Min: 88 % Max: 99 % Intake/Output Summary (Last 24 hours) at 02/07/2023 0712 Last data filed at 02/06/2023 2200 Gross per 24 hour Intake 405 ml Output 1545 ml Net -1140 ml Patient lying comfortably in bed Interactive Denies any pain or shortness of breath LABS: Labs reviewed as indicated below: Latest Reference Range & Units 02/06/23 06:33 Sodium 135 - 146 mmol/L 137 Potassium 3.5 - 5.1 mmol/L 4.0 Chloride 98 - 107 mmol/L 104 CO2 22 - 32 mmol/L 23 BUN 6 - 20 mg/dL 20 Creatinine 0.5 - 1.0 mg/dL 0.7 Estimated Glomerular Filtration Rate >=60 mL/min >90 Anion Gap 7 - 15 mmol/L 10 Glucose 70 - 120 mg/dL 114 Calcium 8.4 - 10.2 mg/dL 8.4 Calcium, Ionized 1.13 - 1.32 mmol/L 1.15 Magnesium 1.5 - 2.6 mg/dL 2.4 Phosphorus 2.5 - 4.8 mg/dL 2.9 INR 0.8 - 1.2 1.2 Prothrombin Time 11.6 - 15.2 seconds 15.1 CBC Rpt ! WBC 4.00 - 10.80 K/uL 9.32 HGB 12.0 - 15.3 g/dL 9.9 (L) HCT 36.0 - 45.2 % 32.9 (L) MCV 81.5 - 97.5 fL 98.2 PLT 140 - 400 K/uL 218 !: Data is abnormal (L): Data is abnormally low Rpt: View report in Results Review for more information IMAGING: No new imaging IMPRESSION and PLAN: Principal Problem: Upper GI bleed (POA: Yes) Active Problems: Acute blood loss anemia (POA: Yes) Hemorrhagic shock (HCC) (POA: Yes) POA = Present On Admission Patient with stable hemodynamics Continue to monitor hemoglobin and any signs of additional bleeding Continue proton pump inhibitors Transfer medications and orders reviewed and reconciled * Jackson Gates MD - 02/06/2023 9:04 AM EST BRIEF TRANSFER OUT OF INTENSIVE CARE NOTE - CRITICAL CARE MEDICINE [facility] [address] Name: Anel Hogue Current Location: [address] Primary ICU Problem: ABLA 2/2 gastric ulcer with oozing hemorrhage requring hemostatic spray ICU Course/Complications: Anel Hogue was admitted to ICU due to concerns of hemorrhagic shock in the setting of acute blood loss anemia secondary to gastric ulcer with oozing hemorrhage status post EGD with hemostatic spray on 02/03/2023. Patient was taken back for a follow up EGD on 02/06/2023 (see procedure reports in chart for more details). Following EGD, patient remained stable and determined ready to be transferred to the floor. She did have an episode of non-sustained vt which self resolved. Electrolytes from [facility] today all normal. If recurs would repeat electrolytes and she should continue tele monitoring Delirium: No Mechanical Ventilation: Intubated: No Difficult airway: No Major Procedures: EGD Medications: Medication changes: Holding CATALOGING ASSISTANT aspirin, Eliquis, and diuretic regimen. Consider resumption when appropriate. Antibiotics: No Pending ICU Issues: Active issues currently being followed or monitored at time of transfer out of ICU: Follow-up path from EGD biopsy. ABLA secondary to gastric ulcer Consults following or that need to be accomplished: GI Central Lines/Chest Tubes/PICC/IUBC: Remaining in place: No Family Meeting/Goals of Care: Full Code Follow Up: Outpatient follow up clinics/labs/studies: GI * Regan Rangel MD - 02/06/2023 7:18 AM EST PROGRESS NOTE - Gastroenterology Service [facility] [address] Name: Anel Hogue Location: [facility]/A Date: 02/06/2023 Time: 7:18 AM SUBJECTIVE: The patient was seen and examined, chart reviewed. No complaints Still with abd pain ROS: All other systems reviewed and negative except as above. OBJECTIVE: Vital Signs Last 24 Hours: Systolic BP: Most Recent Systolic BP Av.7 mmHg Min: 87 mmHg Max: 143 mmHg Temperature: Most Recent Temperature Av.1 C Min: 35.5 C Max: 36.78 C Pulse: Pulse Av.7 Min: 59 Max: 76 Respirations: Resp Av.3 Min: 14 Max: 35 SpO2: SpO2 Av.3 % Min: 88 % Max: 98 % General: No acute distress, sitting comfortably in bed Chest: normal respiratory effort CV: Non tachycardic Abd: mild TTP, nondistended Neuro: alert, oriented LABS: Labs reviewed as indicated below: Latest Reference Range & Units 02/04/23 19:46 02/05/23 06:11 02/05/23 22:08 02/06/23 06:33 HGB 12.0 - 15.3 g/dL 9.0 (L) 9.1 (L) 9.5 (L) 9.9 (L) (L): Data is abnormally low IMAGING: EGD 02/03/23 - Normal esophagus. - An endoclip was found in the stomach. - Clotted blood in the greater curvature of the stomach. - Non-obstructing gastric ulcer with oozing hemorrhage (Dionisio Class Ib). Hemostatic spray applied. Biopsied. - Normal examined duodenum. IMPRESSION: Patient is a 77-year-old female with history of cardiac amyloidosis, AFib on Eliquis, multiple myeloma who presented to [facility] on 02/02 for hematemesis and hematochezia with anemia s/p EGD with large gastric ulcer with stigmata of bleeding and concern for perforation thus was transferred to [facility] for further evaluation. Upon arrival to [facility] ICU ther e was no evidence of gastric perforation patient underwent EGD and was noted to have clotted blood in the greater curvature of the stomach and a nonobstructive gastric ulcer with oozing hemorrhage which was hemosprayed and biopsied. Hemoglobin down this morning to 8.9 and with additional episodes of blood per rectum which would be expected given the amount of blood noted in stomach on EGD. Preliminary path review with pathology suggests no malignancy on surface, stains still pending, will plan to take another look today with EGD RECOMMENDATIONS: - NPO except meds for EGD today - Continue IV PPI BID - f/u path - additional recs to follow post procedure I have discussed the case with my attending, Dr Daniels. Associated attestation - Jose Daniels DO - 02/06/2023 3:42 PM EST I saw and evaluated the patient today. I have reviewed the trainee note and agree. * Shreyas Lerma DO - 02/06/2023 5:47 AM EST Images from the original note were not included. CCM - PROGRESS NOTE [facility] [address] Name: Anel Hogue Location: [facility]/A Date: 02/06/2023 Date of admission: 02/02/2023 Hospital length of stay: 4 days Subjective PATIENT DESCRIPTION: The patient is a 77 year old female with history significant for cardiac amyloidosis, atrial fibrillation (on Eliquis), tachy-igor syndrome status post recent ppm, heart failure with preserved ejection fraction, chronic hypotension (on midodrine), peptic ulcer disease with prior GI bleed, multiplemyeloma, hypothyroidism was recently admitted at [facility] for fluid overload and heart failure exacerbation. Patient was noted to have Afib and was started on Eliquis on 01/30/2023. On 02/02, patient presented to [facility] ED with hematemesis. There were reports of hematochezia and large volume hematemesis in ED. She was noted to be hypotensive. Patient was given 2 units of FFP and PRBC. She was given Kcentra for reversal of Eliquis. She had a drop in hemoglobin by more than 2 g/dL(11.3 > 8.9) in ED. Her baseline hemoglobin is around 14.3. GI were consulted and patient had anEGD with finding of large gastric ulcer with concerns for perforation and stigmata of recent bleeding. However, CT abdomen/pelvis did not show findings of perforation. Patient was then transferred [facility] for further care. EVENTS OF NOTE: 02/02- admitted to ICU 02/03- EGD Impression: - Normal esophagus. - An endoclip was found in the stomach. - Clotted blood in the greater curvature of the stomach. - Non-obstructing gastric ulcer with oozing hemorrhage (Dionisio Class Ib). Hemostatic spray applied. Biopsied. - Normal examined duodenum. INTERIM HISTORY / SUBJECTIVE: Overnight: ROLAND. Patient was seen and examined bedside this morning. Complain of mild SOB. Abdominal discomfort slightly improved compared to day ago. Last bowel movement was day ago (brown/black liquid stool). Plan for EGD today. Objective CONSTITUTIONAL DATA / OBJECTIVE: Vital Signs (Most Recent): Pulse: 61 (02/06/23699) BP: 143/76 (02/06/23699) Resp: 25 (02/06/23699) Temp: 36.7 C (98.1 F) (02/06/23799) SpO2: 94 % (02/06/23699) Vital Signs (Last 24 Hours): Pulse Av.7 Min: 59 Max: 76 No data recorded Most Recent Systolic BP Av.1 mmHg Min: 87 mmHg Max: 143 mmHg Most Recent Diastolic BP Av.6 mmHg Min: 50 mmHg Max: 104 mmHg Resp Av.2 Min: 14 Max: 35 Most Recent Temperature Av.1 C Min: 35.5 C Max: 36.78 C SpO2 Av.5 % Min: 90 % Max: 98 % Intake & Output Summary (Last 24 hours): Intake/Output Summary (Last 24 hours) at 02/06/2023903 Last data filed at 02/06/2023 0900 Gross per 24 hour Intake 1222 ml Output 605 ml Net 617 ml Net IO Since Admission: -355.83 mL [02/03/23 0414] Urine output 25 mL/hour over the past 24 hours Height & Weight: Height: 157.5 cm (5' 2") (02/02/23 2230) Weight: 63.4 kg (139 lb 12.4 oz) (02/06/23 0800) Weight change: 0.9 kg (1 lb 15.7 oz) Body mass index is 25.56 kg/m. Physical Examination: General: Patient in no apparent distress HEENT: normocephalic, atraumatic, Periorbital amyloid depositions Heart: regular rate and rhythm; S1 and S2 present; (+) murmur, rubs or gallops. Pulmonary: bibasilar rales and crackles on auscultation Abdomen: Soft, mild TTP, no distention. Normal bowel sounds and no rebound or guarding. Extremities: No pitting edema present at lower extremity bilaterally Neuro: No gross motor deficits. Urethral Catheter Regular catheter (Active) Number of days: 3 Peripheral Line Left;Upper Arm 22 Gauge (Active) Number of days: 1 Peripheral Line Right;Lower Arm 22 Gauge (Active) Number of days: 1 Laboratory Values: reviewed. -- Brief labs below include the 7 most recent results over the past week. Blood Gas: No results in the last 7 days - inpatent use only Chemistry Panel: Lab results within last 7 days (see chart for full results) Units 02/06/23 0633 02/05/23 2208 02/05/23 1529 02/05/23 0611 02/04/23 0504 02/03/23 0351 02/02/23 2343 Sodium mmol/L 137 137 138 139 145 141 140 Potassium mmol/L 4.0 4.5 3.2* 3.4* 4.2 4.1 4.2 Chloride mmol/L 104 104 103 105 110* 108* 106 CO2 mmol/L 23 24 28 27 27 24 25 BUN mg/dL 20 21* 23* 27* 32* 27* 23* Creatinine mg/dL 0.7 0.7 0.7 0.8 0.8 0.7 0.7 Estimated Glomerular Filtration Rate mL/min >90 >90 90 80 77 >90 87 Glucose mg/dL 114 112 146* 94 124* 112 113 Calcium mg/dL 8.4 8.2* 8.3* 8.5 8.6 8.4 8.3* Magnesium mg/dL 2.4 -- -- 2.3 2.3 1.9 2.0 Phosphorus mg/dL 2.9 3.7 2.3* 2.3* 3.4 3.7 3.8 Anion Gap mmol/L 10 9 7 7 8 9 9 Complete Blood Count: Lab results within last 7 days (see chart for full results) Units 02/06/23 0633 02/05/23220702/05/23 0611 02/04/23 1946 02/04/23 0504 02/03/23 1607 02/03/23 0351 WBC K/uL 9.32 7.45 8.78 10.45 8.08 14.06* 13.06* HGB g/dL 9.9* 9.5* 9.1* 9.0* 8.9* 9.8* 9.7* HCT % 32.9* 31.0* 30.3* 30.3* 29.2* 29.7* 31.2* PLT K/uL 218 184 178 160 111* 125* 141 MCV fL 98.2 96.9 98.1 98.1 96.7 89.7 94.3 Cardiac Studies: Lab results within last 7 days (see chart for full results) Units 02/03/23 0351 02/02/23 2343 Troponin T, High Sensitivity ng/L 112* 116* BNP, NT-Pro pg/mL -- 6,933* Coagulation Studies: Lab results within last 7 days (see chart for full results) Units 02/06/23 0633 02/02/23 2343 Prothrombin Time seconds 15.1 16.5* INR 1.2 1.3* aPTT seconds -- 29 Liver Function Panel: Lab results within last 7 days (see chart for full results) Units 02/05/23220702/05/23 1529 02/02/23 2343 Albumin g/dL 3.1* 3.1* 2.9* Protein g/dL -- -- 6.4 Bilirubin, Total mg/dL -- -- 0.6 Bilirubin, Direct mg/dL -- -- 0.3 AST U/L -- -- 33 ALT U/L -- -- 18 Alkaline Phosphatase U/L -- -- 74 Infectious Studies: Lab results within last 7 days (see chart for full results) Units 02/02/23 2343 Lactate, Whole Blood mmol/L 1.8 Cultures: reviewed. Recent Cultures (2 Weeks) 02/03/2023 01/24/2022 11/07/2020 08/22/2020 03/01/2020 10/22/2019 05/01/2015 08/18/2007 2:38 AM 3:00 PM 9:18 AM 9:49 AM 11:46 AM 12:15 PM 11:38 AM 9:30 AM SPECIMEN DESCRIPTION -- -- -- -- CLEAN CATCH URINE CLEAN CATCH URINE URINE CLEAN CATCH URINE CULTURE -- -- -- -- LESS THAN 10,000 COLONIES/ML MIXED NORMAL KOJO LESS THAN 10,000 COLONIES/ML MIXED NORMAL KOJO LESS THAN 10,000 COLONIES/ML MIXED KOJO >100,000 COLONIES/ML ESCHERICHIA COLI THIS GRAM NEGATIVE BACILLI DISPLAYS IN ... LESS THAN 10,000 COLONIES/ML ONE OTHER SPECIES QUANT URINE CULTURE GROWTH No significant growth No significant growth >100,000 colonies/mL Escherichia coli 10,000 to 100,000 colonies/mL Escherichia coli -- -- -- -- Radiographic Studies: reviewed. XR CHEST 1 VIEW Result Date: 02/06/2023 IMPRESSION: This impression is a preliminary interpretation by the resident and is subject to changes following review by an attending radiologist. Be sure to review a final report to be signed by a staff radiologist for any discrepancies with this preliminary interpretation. Stable bilateral pleural effusions, greater on the left with accompanying compressive atelectasis. Assessment & Plan Principal Problem: Upper GI bleed (POA: Yes) Active Problems: Acute blood loss anemia (POA: Yes) Hemorrhagic shock (HCC) (POA: Yes) POA = Present On Admission NEUROLOGIC: No issues PULMONARY / RESPIRATORY: AHRF likely 2/2 to volume overload from resuscitation +/- anemia (resolved) On RA CXR with findings of pleural effusion IV Lasix 60 mg was given. 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 Hx Atrial fibrillation Hx HFpEF Acute pulmonary edema secondary to heart failure due to volume from resuscitation and blood products (resolved) Patient has received 2 U FFP, 2 U PRBC at OSH Trend CBC Continue resuscitation favoring blood products, goal hgb > 7 MAP goal > 65 Continue CATALOGING ASSISTANT amiodarone Continue CATALOGING ASSISTANT midodrine Hold CATALOGING ASSISTANT aspirin, Eliquis, and diuretic regimen GASTROINTESTINAL / HEPATOBILIARY: Upper GI bleed Gastric ulcer Hx PUD GI consulted, appreciate recs Plan for repeat EGD on Consider IR intervention if profusely bleeding Last Bowel Movement: 02/05/23 (02/05/23 1000) Stool Description: Medium;Loose;Liquid;Brown;Black (02/05/23 1000) Bowel Regimen: none . Stress Ulcer Prophylaxis: Proton Pump Inhibitor.. Diet / Nutrition: NPO except meds since midnight RENAL / METABOLIC / FLUIDS: Serum creatinine: 0.7 mg/dL 02/06/23 0633 Estimated creatinine clearance: 52.3 mL/min Monitor electrolytes at least daily. Replete electrolytes as indicated Avoid Nephrotoxins including NSAIDS Strict monitoring of fluid intake and output Renal dosing and medication considerations adjusted for glomerular filtration rate Daily weights INFECTIOUS DISEASES: Recent UTI - Had completed course of CTX during recent hospitalization - Currently asymptomatic - Repeat UA not suggestive of UTI ENDOCRINE: Hx Hypothyroidism CATALOGING ASSISTANT levothyroxine Blood Glucose Monitoring (BGM) Goal: 140-180 HEMATOLOGIC: Acute blood loss anemia Hx Multiple myeloma CATALOGING ASSISTANT acyclovir for ppx VTE/DVT Prophylaxis: pneumatic compression devices alone due to chemoprophylaxis contraindication MUSCULOSKELETAL/ P.T / O.T. / MOBILITY: PT/OT DERMATOLOGIC / WOUND CARE: Wound care PRN LINES / DRAINS / TUBES: LINES ALL Duration Urethral Catheter Regular catheter 3 days Peripheral Line Left;Upper Arm 22 Gauge <1 day Peripheral Line Right;Lower Arm 22 Gauge <1 day List of consulted services: ADULT PHYSICAL THERAPY CONSULT IP ADULT OCCUPATIONAL THERAPY CONSULT IP GASTROENTEROLOGY CONSULT IP GLOBAL ISSUES: Code Status: Full Code Analgesia: no pain Sedation: N/A Delirium/Confusion Assessment Method for ICU (CAM-ICU): CAM-ICU negative HOB Elevation: greater than 30 degrees DVT Prophylaxis: pneumatic compression devices alone due to chemoprophylaxis contraindication Stress Ulcer Prophylaxis: PPI therapy for other indication Glycemic Control: controlled - not in protocol Oral hygiene every four hours Chlorhexidine mouth rinse every twelve hours Central Line Necessity Reviewed: N/A Huerta: reviewed and needed Disposition: keep in ICU Patient's decisional capacity: has capacity to make decisions Communication with Patient/Family: No meeting held. Goals of Care: wean respiratory parameters and stabilize hemodynamic status Patient was discussed with DO Carlee Fowler MD Resident Physician Attending Attestation: I have discussed the patient's management with the medical trainee and agree with the note. Please refer to the documented findings and plan of care. The patient's bedside service today consisted of an evaluation. I was present and confirmed the findings of the history and exam. No acute events overnight. Chest x-ray this morning with small bilateral pleural effusions. Hemoglobin stable at 9.9. Will give a dose of Lasix today. Repeat EGD today per Gastroenterology. * Regan Rangel MD - 02/05/2023 8:31 AM EST PROGRESS NOTE - Gastroenterology Service [facility] [id number] Name: Anel Hogue [place] [facility] [place] [id number] Date: 02/05/2023 Time: 8:31 AM SUBJECTIVE: The patient was seen and examined, chart reviewed. Tolerated clears Still mild pain No additional BMs since yesterday ROS: All other systems reviewed and negative except as above. OBJECTIVE: Vital Signs Last 24 Hours: Systolic BP: Most Recent Systolic BP Av mmHg Min: 88 mmHg Max: 110 mmHg Temperature: Most Recent Temperature Av.5 C Min: 36.22 C Max: 36.72 C Pulse: Pulse Av Min: 60 Max: 65 Respirations: Resp Av Min: 13 Max: 28 SpO2: SpO2 Av.4 % Min: 88 % Max: 99 % General: No acute distress, sitting comfortably in bed Chest: normal respiratory effort CV: Non tachycardic Abd: mild TTP, nondistended Neuro: alert, oriented LABS: Labs reviewed as indicated below: Latest Reference Range & Units 02/03/23 16:07 02/04/23 05:04 02/04/23 19:46 02/05/23 06:11 HGB 12.0 - 15.3 g/dL 9.8 (L) 8.9 (L) 9.0 (L) 9.1 (L) (L): Data is abnormally low IMAGING: EGD 02/03/23 - Normal esophagus. - An endoclip was found in the stomach. - Clotted blood in the greater curvature of the stomach. - Non-obstructing gastric ulcer with oozing hemorrhage (Dionisio Class Ib). Hemostatic spray applied. Biopsied. - Normal examined duodenum. IMPRESSION: Patient is a 77-year-old female with history of cardiac amyloidosis, AFib on Eliquis, multiple myeloma who presented to [facility] on 02/02 for hematemesis and hematochezia with anemia s/p EGD with large gastric ulcer with stigmata of bleeding and concern for perforation thus was transferred to [facility] for further evaluation. Upon arrival to [facility] ICU ther e was no evidence of gastric perforation patient underwent EGD and was noted to have clotted blood in the greater curvature of the stomach and a nonobstructive gastric ulcer with oozing hemorrhage which was hemosprayed and biopsied. Hemoglobin down this morning to 8.9 and with additional episodes of blood per rectum which would be expected given the amount of blood noted in stomach on EGD. Will plan to monitor today and allow for path to come back. Planning second look but sooner if active bleeding noted RECOMMENDATIONS: - ok to advance diet as tolerated - Continue IV PPI BID - f/u path - plan for second tomorrow in endo - NPO @ 2400 for EGD tomorrow - Please get early AM labs - Please ensure Hgb > 7.0, INR<2, K>3.5, Platelets >50K, sodium is within 5 points of reference range prior to the procedure I have discussed the case with my attending, Dr Daniels. Associated attestation - Jose Daniels DO - 02/05/2023 3:19 PM EST I saw and evaluated the patient today. I have reviewed the trainee note and agree. * Shreyas Lerma DO - 02/05/2023 5:50 AM EST Images from the original note were not included. CCM - PROGRESS NOTE [facility] [place] [id number] Name: Anel Hogue Location: [facility] [place] [id number] Date: 02/05/2023 Date of admission: 02/02/2023 Hospital length of stay: 3 days Subjective PATIENT DESCRIPTION: The patient is a 77 year old female with history significant for cardiac amyloidosis, atrial fibrillation (on Eliquis), tachy-igor syndrome status post recent ppm, heart failure with preserved ejection fraction, chronic hypotension (on midodrine), peptic ulcer disease with prior GI bleed, multiplemyeloma, hypothyroidism was recently admitted at [facility] for fluid overload and heart failure exacerbation. Patient was noted to have Afib and was started on Eliquis on 01/30/2023. On 02/02, patient presented to [facility] ED with hematemesis. There were reports of hematochezia and large volume hematemesis in ED. She was noted to be hypotensive. Patient was given 2 units of FFP and PRBC. She was given Kcentra for reversal of Eliquis. She had a drop in hemoglobin by more than 2 g/dL(11.3 > 8.9) in ED. Her baseline hemoglobin is around 14.3. GI were consulted and patient had anEGD with finding of large gastric ulcer with concerns for perforation and stigmata of recent bleeding. However, CT abdomen/pelvis did not show findings of perforation. Patient was then transferred toG for further care. EVENTS OF NOTE: 02/02- admitted to ICU 02/03- EGD Impression: - Normal esophagus. - An endoclip was found in the stomach. - Clotted blood in the greater curvature of the stomach. - Non-obstructing gastric ulcer with oozing hemorrhage (Dionisio Class Ib). Hemostatic spray applied. Biopsied. - Normal examined duodenum. INTERIM HISTORY / SUBJECTIVE: Overnight: Had a brief desating events and was placed on 2L nasal cannula. Patient was seen and examined bedside this morning. She denied active issues or symptoms including chest pain, shortness on breath, lightheadedness. Endorsing mild abdominal discomfort. Last bowel movement was a day ago (bloody liquid stool). Hypokalemia (3.4) and hypophosphatemia (2.3) repleted with Phos-Nak this morning. She was weaned down to room air this morning and was able to maintain saturations above 96%. Objective CONSTITUTIONAL DATA / OBJECTIVE: Vital Signs (Most Recent): Pulse: 60 (02/05/23899) BP: 125/68 (02/05/23899) Resp: 25 (02/05/23899) Temp: 35.9 C (96.6 F) (02/05/23799) SpO2: 88 % (02/05/23899) Vital Signs (Last 24 Hours): Pulse Av.8 Min: 60 Max: 65 No data recorded Most Recent Systolic BP Av.3 mmHg Min: 88 mmHg Max: 125 mmHg Most Recent Diastolic BP Av.4 mmHg Min: 35 mmHg Max: 68 mmHg Resp Av.1 Min: 13 Max: 28 Most Recent Temperature Av.4 C Min: 35.89 C Max: 36.72 C SpO2 Av.2 % Min: 88 % Max: 99 % Intake & Output Summary (Last 24 hours): Intake/Output Summary (Last 24 hours) at 02/05/2023940 Last data filed at 02/05/2023799 Gross per 24 hour Intake 1990 ml Output 780 ml Net 1210 ml Net IO Since Admission: -355.83 mL [02/03/23 0414] UO 36 ml/hr over the past 24 hrs Height & Weight: Height: 157.5 cm (5' 2") (02/02/230) Weight: 63.2 kg (139 lb 5.3 oz) (02/05/23799) Weight change: -1.2 kg (-2 lb 10.3 oz) Body mass index is 25.48 kg/m. Physical Examination: General: Patient in no apparent distress HEENT: normocephalic, atraumatic, Periorbital amyloid depositions Heart: regular rate and rhythm; S1 and S2 present; (+) murmur, rubs or gallops. Pulmonary: CTAB Abdomen: Soft, non-tender, mild distention. Normal bowel sounds and no rebound or guarding. MSK: Patient able to ambulate; Gross motor function intact Extremities: No pitting edema present at lower extremity bilaterally Skin: [place], warm, no wounds or lesions present. Neuro: No gross motor deficits. Urethral Catheter Regular catheter (Active) Number of days: 2 Peripheral Line Left;Lower 18 Gauge (Active) Number of days: 3 Peripheral Line Anterior;Right Hand 20 Gauge (Active) Number of days: 3 Laboratory Values: reviewed. -- Brief labs below include the 7 most recent results over the past week. Blood Gas: No results in the last 7 days - inpatent use only Chemistry Panel: Lab results within last 7 days (see chart for full results) Units 02/05/23 0611 02/04/23 0504 02/03/23 0351 02/02/23 2343 Sodium mmol/L 139 145 141 140 Potassium mmol/L 3.4* 4.2 4.1 4.2 Chloride mmol/L 105 110* 108* 106 CO2 mmol/L 27 27 24 25 BUN mg/dL 27* 32* 27* 23* Creatinine mg/dL 0.8 0.8 0.7 0.7 Estimated Glomerular Filtration Rate mL/min 80 77 >90 87 Glucose mg/dL 94 124* 112 113 Calcium mg/dL 8.5 8.6 8.4 8.3* Magnesium mg/dL 2.3 2.3 1.9 2.0 Phosphorus mg/dL 2.3* 3.4 3.7 3.8 Anion Gap mmol/L 7 8 9 9 Complete Blood Count: Lab results within last 7 days (see chart for full results) Units 02/05/23 0611 02/04/23 1946 02/04/23 0504 02/03/23 1607 02/03/23 0351 02/02/23 2343 WBC K/uL 8.78 10.45 8.08 14.06* 13.06* 8.36 HGB g/dL 9.1* 9.0* 8.9* 9.8* 9.7* 9.3* HCT % 30.3* 30.3* 29.2* 29.7* 31.2* 30.1* PLT K/uL 178 160 111* 125* 141 125* MCV fL 98.1 98.1 96.7 89.7 94.3 94.1 Cardiac Studies: Lab results within last 7 days (see chart for full results) Units 02/03/23 0351 02/02/23 2343 Troponin T, High Sensitivity ng/L 112* 116* BNP, NT-Pro pg/mL -- 6,933* Coagulation Studies: Lab results within last 7 days (see chart for full results) Units 02/02/23 2343 Prothrombin Time seconds 16.5* INR 1.3* aPTT seconds 29 Liver Function Panel: Lab results within last 7 days (see chart for full results) Units 02/02/23 2343 Albumin g/dL 2.9* Protein g/dL 6.4 Bilirubin, Total mg/dL 0.6 Bilirubin, Direct mg/dL 0.3 AST U/L 33 ALT U/L 18 Alkaline Phosphatase U/L 74 Infectious Studies: Lab results within last 7 days (see chart for full results) Units 02/02/23 2343 Lactate, Whole Blood mmol/L 1.8 Cultures: reviewed. Recent Cultures (2 Weeks) 02/03/2023 01/24/2022 11/07/2020 08/22/2020 03/01/2020 10/22/2019 05/01/2015 08/18/2007 2:38 AM 3:00 PM 9:18 AM 9:49 AM 11:46 AM 12:15 PM 11:38 AM 9:30 AM SPECIMEN DESCRIPTION -- -- -- -- CLEAN CATCH URINE CLEAN CATCH URINE URINE CLEAN CATCH URINE CULTURE -- -- -- -- LESS THAN 10,000 COLONIES/ML MIXED NORMAL KOJO LESS THAN 10,000 COLONIES/ML MIXED NORMAL KOJO LESS THAN 10,000 COLONIES/ML MIXED KOJO >100,000 COLONIES/ML ESCHERICHIA COLI THIS GRAM NEGATIVE BACILLI DISPLAYS IN ... LESS THAN 10,000 COLONIES/ML ONE OTHER SPECIES QUANT URINE CULTURE GROWTH No significant growth No significant growth >100,000 colonies/mL Escherichia coli 10,000 to 100,000 colonies/mL Escherichia coli -- -- -- -- Radiographic Studies: reviewed. XR CHEST 1 VIEW Result Date: 02/03/2023 IMPRESSION 1. No evidence of pneumoperitoneum. Recommend a CT if there is continued clinical concern. 2. Increased bilateral opacities, likely a combination of edema and atelectasis. Cannot exclude infiltrate in the left midlung or bases. 3. Moderate left and small right pleural effusions. XR ABDOMEN 1 VIEW Result Date: 02/03/2023 IMPRESSION 1. No evidence of pneumoperitoneum. Recommend a CT if there is continued clinical concern. 2. Increased bilateral opacities, likely a combination of edema and atelectasis. Cannot exclude infiltrate in the left midlung or bases. 3. Moderate left and small right pleural effusions. Assessment & Plan Principal Problem: Upper GI bleed (POA: Yes) Active Problems: Acute blood loss anemia (POA: Yes) Hemorrhagic shock (HCC) (POA: Yes) POA = Present On Admission NEUROLOGIC: No issues PULMONARY / RESPIRATORY: AHRF likely 2/2 to volume overload from resuscitation +/- anemia CXR with finding suggestive of edema s/p lasix 40 mg trial on 02/03 On [facility]NC. 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 Hx Atrial fibrillation Hx HFpEF Patient has received 2 U FFP, 2 U PRBC at OSH Trend CBC q12h Continue resuscitation favoring blood products, goal hgb > 7 MAP goal > 65 Continue CATALOGING ASSISTANT amiodarone Continue CATALOGING ASSISTANT midodrine Hold CATALOGING ASSISTANT aspirin, Eliquis, and diuretic regimen GASTROINTESTINAL / HEPATOBILIARY: Upper GI bleed Gastric ulcer Hx PUD GI consulted, appreciate recs Plan for repeat EGD on Consider IR intervention if profusely bleeding Last Bowel Movement: 02/04/23 (02/04/23 06) Stool Description: Large;Blood;Liquid (maroon) (02/04/23 0600) Bowel Regimen: none . Stress Ulcer Prophylaxis: Proton Pump Inhibitor.. Diet / Nutrition: advancing to CLD. NPO after 2400 except meds . RENAL / METABOLIC / FLUIDS: Serum creatinine: 0.8 mg/dL 02/05/23 0611 Estimated creatinine clearance: 52.2 mL/min Monitor electrolytes at least daily. Replete electrolytes as indicated Avoid Nephrotoxins including NSAIDS Strict monitoring of fluid intake and output Renal dosing and medication considerations adjusted for glomerular filtration rate Daily weights INFECTIOUS DISEASES: Recent UTI - Had completed course of CTX during recent hospitalization - Currently asymptomatic - Repeat UA not suggestive of UTI ENDOCRINE: Hx Hypothyroidism CATALOGING ASSISTANT levothyroxine Blood Glucose Monitoring (BGM) Goal: 140-180 HEMATOLOGIC: Acute blood loss anemia Hx Multiple myeloma CATALOGING ASSISTANT acyclovir for ppx VTE/DVT Prophylaxis: pneumatic compression devices alone due to chemoprophylaxis contraindication MUSCULOSKELETAL/ P.T / O.T. / MOBILITY: PT/OT DERMATOLOGIC / WOUND CARE: Wound care PRN LINES / DRAINS / TUBES: LINES ALL Duration Peripheral Line Anterior;Right Hand 20 Gauge 2 days Peripheral Line Left;Lower 18 Gauge 2 days Urethral Catheter Regular catheter 2 days List of consulted services: ADULT PHYSICAL THERAPY CONSULT IP ADULT OCCUPATIONAL THERAPY CONSULT IP GASTROENTEROLOGY CONSULT IP GLOBAL ISSUES: Code Status: Full Code Analgesia: no pain Sedation: N/A Delirium/Confusion Assessment Method for ICU (CAM-ICU): CAM-ICU negative HOB Elevation: greater than 30 degrees DVT Prophylaxis: pneumatic compression devices alone due to chemoprophylaxis contraindication Stress Ulcer Prophylaxis: PPI therapy for other indication Glycemic Control: controlled - not in protocol Oral hygiene every four hours Chlorhexidine mouth rinse every twelve hours Central Line Necessity Reviewed: N/A Huerta: reviewed and needed Disposition: keep in ICU Patient's decisional capacity: has capacity to make decisions Communication with Patient/Family: No meeting held. Goals of Care: wean respiratory parameters and stabilize hemodynamic status Patient was discussed with DO Carlee Fowler MD Resident Physician Attending Attestation: I have discussed the patient's management with the medical trainee and agree with the note. Please refer to the documented findings and plan of care. The patient's bedside service today consisted of an evaluation. I was present and confirmed the findings of the history and exam. No acute events overnight. Her hemoglobin remains stable. Continue PPI, sucralfate. Clear liquid diet. Plan for EGD tomorrow. * Regan Rangel MD - 02/04/2023 7:19 AM EST PROGRESS NOTE - Gastroenterology Service [facility] [place] [id number] Name: Anel Hogue Location: [facility] [place] [id number] Date: 02/04/2023 Time: 7:19 AM SUBJECTIVE: The patient was seen and examined, chart reviewed. Reporting severe abdominal pain Denies nausea or vomiting Had multiple episodes of bright red blood per rectum last night ROS: All other systems reviewed and negative except as above. OBJECTIVE: Vital Signs Last 24 Hours: Systolic BP: Most Recent Systolic BP Av mmHg Min: 86 mmHg Max: 132 mmHg Temperature: Most Recent Temperature Av.1 C Min: 36.39 C Max: 37.72 C Pulse: Pulse Av.6 Min: 60 Max: 78 Respirations: Resp Av.8 Min: 16 Max: 29 SpO2: SpO2 Av.3 % Min: 89 % Max: 100 % General: No acute distress, sitting comfortably in bed Chest: normal respiratory effort CV: Non tachycardic Abd: nontender, nondistended Neuro: alert, oriented LABS: Labs reviewed as indicated below: Latest Reference Range & Units 02/04/23 05:04 Sodium 135 - 146 mmol/L 145 Potassium 3.5 - 5.1 mmol/L 4.2 Chloride 98 - 107 mmol/L 110 (H) CO2 22 - 32 mmol/L 27 BUN 6 - 20 mg/dL 32 (H) Creatinine 0.5 - 1.0 mg/dL 0.8 Estimated Glomerular Filtration Rate >=60 mL/min 77 Anion Gap 7 - 15 mmol/L 8 Glucose 70 - 120 mg/dL 124 (H) Calcium 8.4 - 10.2 mg/dL 8.6 Calcium, Ionized 1.13 - 1.32 mmol/L 1.17 Magnesium 1.5 - 2.6 mg/dL 2.3 Phosphorus 2.5 - 4.8 mg/dL 3.4 CBC Rpt ! WBC 4.00 - 10.80 K/uL 8.08 HGB 12.0 - 15.3 g/dL 8.9 (L) HCT 36.0 - 45.2 % 29.2 (L) MCV 81.5 - 97.5 fL 96.7 PLT 140 - 400 K/uL 111 (L) (H): Data is abnormally high !: Data is abnormal (L): Data is abnormally low Rpt: View report in Results Review for more information IMAGING: EGD 02/03/23 - Normal esophagus. - An endoclip was found in the stomach. - Clotted blood in the greater curvature of the stomach. - Non-obstructing gastric ulcer with oozing hemorrhage (Dionisio Class Ib). Hemostatic spray applied. Biopsied. - Normal examined duodenum. IMPRESSION: Patient is a 77-year-old female with history of cardiac amyloidosis, AFib on Eliquis, multiple myeloma who presented to [facility] on 02/02 for hematemesis and hematochezia with anemia s/p EGD with large gastric ulcer with stigmata of bleeding and concern for perforation thus was transferred to [facility] for further evaluation. Upon arrival to [facility] ICU ther e was no evidence of gastric perforation patient underwent EGD and was noted to have clotted blood in the greater curvature of the stomach and a nonobstructive gastric ulcer with oozing hemorrhage which was hemosprayed and biopsied. Hemoglobin down this morning to 8.9 and with additional episodes of blood per rectum which would be expected given the amount of blood noted in stomach on EGD. Will plan to monitor today and allow for path to come back. Planning second look but sooner if active bleeding noted RECOMMENDATIONS: - ok for clear liquid today - Continue IV PPI BID - f/u path - plan for repeat EGD on , sooner if active rebleeding I have discussed the case with my attending, Dr Daniels. Associated attestation - Jose Daniels DO - 02/04/2023 2:20 PM EST I saw and evaluated the patient today. I have reviewed the trainee note and agree. * Shreyas eLrma DO - 02/04/2023 6:22 AM EST Images from the original note were not included. CCM - [place]GRESS [place] [facility] [id number] Name: Aenl Hogue [place] [facility] [id number] Date: 02/04/2023 Date of admission: 02/02/2023 Hospital length of stay: 2 days Subjective PATIENT DESCRIPTION: The patient is a 77 year old female with history significant for cardiac amyloidosis, atrial fibrillation (on Eliquis), tachy-igor syndrome status post recent ppm, heart failure with preserved ejection fraction, chronic hypotension (on midodrine), peptic ulcer disease with prior GI bleed, multiplemyeloma, hypothyroidism was recently admitted at [facility] for fluid overload and heart failure exacerbation. Patient was noted to have Afib and was started on Eliquis on 01/30/2023. On 02/02, patient presented to [facility] ED with hematemesis. There were reports of hematochezia and large volume hematemesis in ED. She was noted to be hypotensive. Patient was given 2 units of FFP and PRBC. She was given Kcentra for reversal of Eliquis. She had a drop in hemoglobin by more than 2 g/dL(11.3 > 8.9) in ED. Her baseline hemoglobin is around 14.3. GI were consulted and patient had anEGD with finding of large gastric ulcer with concerns for perforation and stigmata of recent bleeding. However, CT abdomen/pelvis did not show findings of perforation. Patient was then transferred [facility] for further care. EVENTS OF NOTE: 02/02- admitted to ICU 02/03- EGD Impression: - Normal esophagus. - An endoclip was found in the stomach. - Clotted blood in the greater curvature of the stomach. - Non-obstructing gastric ulcer with oozing hemorrhage (Dionisio Class Ib). Hemostatic spray applied. Biopsied. - Normal examined duodenum. INTERIM HISTORY / SUBJECTIVE: Overnight: ROLAND This morning, patient evaluated at bedside. No acute distress. Had 0.9 g/dL drop over the past 12 hours. This morning, patient denied active issues. She feels thirsty and would to drink water. Patient denied lightheadedness, shortness on breath, chest pain, abdominal pain. Last bowel movement was last night and was bloody maroon in color. Objective CONSTITUTIONAL DATA / OBJECTIVE: Vital Signs (Most Recent): Pulse: 61 (02/04/23 1200) BP: 106/52 (02/04/23 1200) Resp: 25 (02/04/23 1200) Temp: 36.5 C (97.7 F) (02/04/23 1200) SpO2: 95 % (02/04/23 1200) Vital Signs (Last 24 Hours): Pulse Av.6 Min: 60 Max: 78 No data recorded Most Recent Systolic BP Av.5 mmHg Min: 86 mmHg Max: 132 mmHg Most Recent Diastolic BP Av.9 mmHg Min: 42 mmHg Max: 65 mmHg Resp Av.2 Min: 15 Max: 25 Most Recent Temperature Av C Min: 36.5 C Max: 37.72 C SpO2 Av.6 % Min: 89 % Max: 100 % Intake & Output Summary (Last 24 hours): Intake/Output Summary (Last 24 hours) at 02/04/2023 1254 Last data filed at 02/04/2023 1200 Gross per 24 hour Intake 1590 ml Output 1885 ml Net -295 ml Net IO Since Admission: -355.83 mL [02/03/23 0414] Height & Weight: Height: 157.5 cm (5' 2") (02/02/23 2230) Weight: 62.3 kg (137 lb 5.6 oz) (02/04/23 0800) Weight change: 0.3 kg (10.6 oz) Body mass index is 25.12 kg/m. Physical Examination: General: Patient in no apparent distress HEENT: normocephalic, atraumatic, Periorbital amyloid depositions Heart: regular rate and rhythm; S1 and S2 present; (+) murmur, rubs or gallops. Pulmonary: CTAB Abdomen: Soft, non-tender, (+) distended. Normal bowel sounds and no rebound or guarding. MSK: Patient able to ambulate; Gross motor function intact Extremities: No pitting edema present at lower extremity bilaterally Skin: [place], warm, no wounds or lesions present. Neuro: No gross motor deficits. Urethral Catheter Regular catheter (Active) Number of days: 1 Peripheral Line Left;Lower 18 Gauge (Active) Number of days: 2 Peripheral Line Anterior;Right Hand 20 Gauge (Active) Number of days: 2 Laboratory Values: reviewed. -- Brief labs below include the 7 most recent results over the past week. Blood Gas: No results in the last 7 days - inpatent use only Chemistry Panel: Lab results within last 7 days (see chart for full results) Units 02/04/23 0504 02/03/23 0351 02/02/23 2343 Sodium mmol/L 145 141 140 Potassium mmol/L 4.2 4.1 4.2 Chloride mmol/L 110* 108* 106 CO2 mmol/L 27 24 25 BUN mg/dL 32* 27* 23* Creatinine mg/dL 0.8 0.7 0.7 Estimated Glomerular Filtration Rate mL/min 77 >90 87 Glucose mg/dL 124* 112 113 Calcium mg/dL 8.6 8.4 8.3* Magnesium mg/dL 2.3 1.9 2.0 Phosphorus mg/dL 3.4 3.7 3.8 Anion Gap mmol/L 8 9 9 Complete Blood Count: Lab results within last 7 days (see chart for full results) Units 02/04/23 0504 02/03/23 1607 02/03/23 0351 02/02/23 2343 WBC K/uL 8.08 14.06* 13.06* 8.36 HGB g/dL 8.9* 9.8* 9.7* 9.3* HCT % 29.2* 29.7* 31.2* 30.1* PLT K/uL 111* 125* 141 125* MCV fL 96.7 89.7 94.3 94.1 Cardiac Studies: Lab results within last 7 days (see chart for full results) Units 02/03/23 0351 02/02/23 2343 Troponin T, High Sensitivity ng/L 112* 116* BNP, NT-Pro pg/mL -- 6,933* Coagulation Studies: Lab results within last 7 days (see chart for full results) Units 02/02/23 2343 Prothrombin Time seconds 16.5* INR 1.3* aPTT seconds 29 Liver Function Panel: Lab results within last 7 days (see chart for full results) Units 02/02/23 2343 Albumin g/dL 2.9* Protein g/dL 6.4 Bilirubin, Total mg/dL 0.6 Bilirubin, Direct mg/dL 0.3 AST U/L 33 ALT U/L 18 Alkaline Phosphatase U/L 74 Infectious Studies: Lab results within last 7 days (see chart for full results) Units 02/02/23 2343 Lactate, Whole Blood mmol/L 1.8 Cultures: reviewed. Recent Cultures (2 Weeks) 02/03/2023 01/24/2022 11/07/2020 08/22/2020 03/01/2020 10/22/2019 05/01/2015 08/18/2007 2:38 AM 3:00 PM 9:18 AM 9:49 AM 11:46 AM 12:15 PM 11:38 AM 9:30 AM SPECIMEN DESCRIPTION -- -- -- -- CLEAN CATCH URINE CLEAN CATCH URINE URINE CLEAN CATCH URINE CULTURE -- -- -- -- LESS THAN 10,000 COLONIES/ML MIXED NORMAL KOJO LESS THAN 10,000 COLONIES/ML MIXED NORMAL KOJO LESS THAN 10,000 COLONIES/ML MIXED KOJO >100,000 COLONIES/ML ESCHERICHIA COLI THIS GRAM NEGATIVE BACILLI DISPLAYS IN ... LESS THAN 10,000 COLONIES/ML ONE OTHER SPECIES QUANT URINE CULTURE GROWTH No significant growth No significant growth >100,000 colonies/mL Escherichia coli 10,000 to 100,000 colonies/mL Escherichia coli -- -- -- -- Radiographic Studies: reviewed. XR CHEST 1 VIEW Result Date: 02/03/2023 IMPRESSION 1. No evidence of pneumoperitoneum. Recommend a CT if there is continued clinical concern. 2. Increased bilateral opacities, likely a combination of edema and atelectasis. Cannot exclude infiltrate in the left midlung or bases. 3. Moderate left and small right pleural effusions. XR ABDOMEN 1 VIEW Result Date: 02/03/2023 IMPRESSION 1. No evidence of pneumoperitoneum. Recommend a CT if there is continued clinical concern. 2. Increased bilateral opacities, likely a combination of edema and atelectasis. Cannot exclude infiltrate in the left midlung or bases. 3. Moderate left and small right pleural effusions. Assessment & Plan Principal Problem: Upper GI bleed (POA: Yes) Active Problems: Acute blood loss anemia (POA: Yes) Hemorrhagic shock (HCC) (POA: Yes) POA = Present On Admission NEUROLOGIC: No issues PULMONARY / RESPIRATORY: AHRF likely 2/2 to volume overload from resuscitation +/- anemia CXR with finding suggestive of edema s/p lasix 40 mg trial on 02/03 On LFNC. Weaned to RA this morning Respiratory driven protocol CARDIOVASCULAR: Concern for Hemorrhagic shock Hx Cardiac amyloidosis Hx Tachy-Igor syndrome s/p PPM Hx Atrial fibrillation Hx HFpEF Patient has received 2 U FFP, 2 U PRBC at OSH Trend CBC q12h Continue resuscitation favoring blood products, goal hgb > 7 MAP goal > 65 Continue CATALOGING ASSISTANT amiodarone Continue CATALOGING ASSISTANT midodrine Hold CATALOGING ASSISTANT aspirin, Eliquis, and diuretic regimen GASTROINTESTINAL / HEPATOBILIARY: Upper GI bleed Gastric ulcer Hx PUD GI consulted, appreciate recs Consider IR intervention if profusely bleeding Last Bowel Movement: 02/04/23 (02/04/23 06) Stool Description: Large;Blood;Liquid (maroon) (02/04/23 06) Bowel Regimen: none . Stress Ulcer Prophylaxis: Proton Pump Inhibitor.. Diet / Nutrition: advancing to CLD. NPO after 2400 except meds . RENAL / METABOLIC / FLUIDS: Serum creatinine: 0.8 mg/dL 02/04/23 0504 Estimated creatinine clearance: 51.9 mL/min Monitor electrolytes at least daily. Replete electrolytes as indicated Avoid Nephrotoxins including NSAIDS Strict monitoring of fluid intake and output Renal dosing and medication considerations adjusted for glomerular filtration rate Daily weights INFECTIOUS DISEASES: Recent UTI - Had completed course of CTX during recent hospitalization - Currently asymptomatic - Repeat UA not suggestive of UTI ENDOCRINE: Hx Hypothyroidism CATALOGING ASSISTANT levothyroxine Blood Glucose Monitoring (BGM) Goal: 140-180 HEMATOLOGIC: Acute blood loss anemia Hx Multiple myeloma Resuming CATALOGING ASSISTANT acyclovir for ppx VTE/DVT Prophylaxis: pneumatic compression devices alone due to chemoprophylaxis contraindication MUSCULOSKELETAL/ P.T / O.T. / MOBILITY: PT/OT DERMATOLOGIC / WOUND CARE: Wound care PRN LINES / DRAINS / TUBES: LINES ALL Duration Peripheral Line Anterior;Right Hand 20 Gauge 1 day Peripheral Line Left;Lower 18 Gauge 1 day Urethral Catheter Regular catheter 1 day List of consulted services: ADULT PHYSICAL THERAPY CONSULT IP ADULT OCCUPATIONAL THERAPY CONSULT IP GASTROENTEROLOGY CONSULT IP GLOBAL ISSUES: Code Status: Full Code Analgesia: no pain Sedation: N/A Delirium/Confusion Assessment Method for ICU (CAM-ICU): CAM-ICU negative HOB Elevation: greater than 30 degrees Nutrition: NPO except medications DVT Prophylaxis: pneumatic compression devices alone due to chemoprophylaxis contraindication Stress Ulcer Prophylaxis: PPI therapy for other indication Glycemic Control: controlled - not in protocol Oral hygiene every four hours Chlorhexidine mouth rinse every twelve hours Central Line Necessity Reviewed: N/A Huerta: reviewed and needed Disposition: keep in ICU Patient's decisional capacity: has capacity to make decisions Communication with Patient/Family: No meeting held. Goals of Care: wean respiratory parameters and stabilize hemodynamic status Patient was discussed with DO Carlee Fowler MD Resident Physician Attending Attestation: I have discussed the patient's management with the medical trainee and agree with the note. Please refer to the documented findings and plan of care. The patient's bedside service today consisted of an evaluation. I was present and confirmed the findings of the history and exam. Overnight noted to have some blood in the stools. Hemoglobin 8.9 from 9.8. Continues on IV PPI twice daily as well as sucralfate. Per GI plans for EGD , sooner if evidence of active ongoing bleeding. Will start clear liquid diet. Continue to monitor in ICU. * Shreyas Lerma DO - 02/03/2023 7:08 AM EST Images from the original note were not included. CCM - PROGRESS NOTE [facility] [id number] Name: Anel Hogue [place] [facility] [id number] Date: 02/03/2023 Date of admission: 02/02/2023 Hospital length of stay: 1 days Subjective PATIENT DESCRIPTION: The patient is a 77 year old female with history significant for cardiac amyloidosis, atrial fibrillation (on Eliquis), tachy-igor syndrome status post recent ppm, heart failure with preserved ejection fraction, chronic hypotension (on midodrine), peptic ulcer disease with prior GI bleed, multiplemyeloma, hypothyroidism was recently admitted at [facility] for fluid overload and heart failure exacerbation. Patient was noted to have Afib and was started on Eliquis on 01/30/2023. On 02/02, patient presented to [facility] ED with hematemesis. There were reports of hematochezia and large volume hematemesis in ED. She was noted to be hypotensive. Patient was given 2 units of FFP and PRBC. She was given Kcentra for reversal of Eliquis. She had a drop in hemoglobin by more than 2 g/dL(11.3 > 8.9) in ED. Her baseline hemoglobin is around 14.3. GI were consulted and patient had anEGD with finding of large gastric ulcer with concerns for perforation and stigmata of recent bleeding. However, CT abdomen/pelvis did not show findings of perforation. Patient was then transferred [facility] for further care. EVENTS OF NOTE: 02/02- admitted to ICU INTERIM HISTORY / SUBJECTIVE: Overnight: ROLAND This morning, patient evaluated at bedside. No acute distress. She denied chest pain, shortness of breath, abdominal pain or lightheadedness. MAPS greater than 65 without pressor support. Objective CONSTITUTIONAL DATA / OBJECTIVE: Vital Signs (Most Recent): Pulse: 60 (02/03/23 1000) BP: 102/58 (02/03/23 1000) Resp: 26 (02/03/23 1000) Temp: 36.4 C (97.5 F) (02/03/23 0800) SpO2: 90 % (02/03/23 1000) Vital Signs (Last 24 Hours): Pulse Av Min: 60 Max: 107 No data recorded Most Recent Systolic BP Av.5 mmHg Min: 85 mmHg Max: 127 mmHg Most Recent Diastolic BP Av.6 mmHg Min: 41 mmHg Max: 86 mmHg Resp Av.4 Min: 17 Max: 31 Most Recent Temperature Av.5 C Min: 36.22 C Max: 36.78 C SpO2 Av.2 % Min: 89 % Max: 98 % Intake & Output Summary (Last 24 hours): Intake/Output Summary (Last 24 hours) at 02/03/2023 1059 Last data filed at 02/03/2023 1058 Gross per 24 hour Intake 204.17 ml Output 720 ml Net -515.83 ml Net IO Since Admission: -355.83 mL [02/03/23 0414] Height & Weight: Height: 157.5 cm (5' 2") (02/02/23 2230) Weight: 63.5 kg (139 lb 15.9 oz) (02/03/23 0800) Weight change: Body mass index is 25.6 kg/m. Physical Examination: General: Patient in no apparent distress HEENT: normocephalic, atraumatic, Periorbital amyloid depositions Heart: regular rate and rhythm; S1 and S2 present; (+) murmur, rubs or gallops. Pulmonary: Lungs clear to auscultation bilaterally; no wheezes, rhonchi or crackles. Abdomen: Soft, non-tender, (+) distended. Normal bowel sounds and no rebound or guarding. MSK: Patient able to ambulate; Gross motor function intact Extremities: No pitting edema present at lower extremity bilaterally Skin: [place], warm, no wounds or lesions present. Neuro: No gross motor deficits. Urethral Catheter Regular catheter (Active) Number of days: 0 Peripheral Line Left 20 Gauge (Active) Number of days: 1 Peripheral Line Left;Lower 18 Gauge (Active) Number of days: 1 Peripheral Line Right Antecubital 18 Gauge (Active) Number of days: 1 Peripheral Line Anterior;Right Hand 20 Gauge (Active) Number of days: 1 Laboratory Values: reviewed. -- Brief labs below include the 7 most recent results over the past week. Blood Gas: No results in the last 7 days - inpatent use only Chemistry Panel: Lab results within last 7 days (see chart for full results) Units 02/03/23 0351 02/02/23 2343 Sodium mmol/L 141 140 Potassium mmol/L 4.1 4.2 Chloride mmol/L 108* 106 CO2 mmol/L 24 25 BUN mg/dL 27* 23* Creatinine mg/dL 0.7 0.7 Estimated Glomerular Filtration Rate mL/min >90 87 Glucose mg/dL 112 113 Calcium mg/dL 8.4 8.3* Magnesium mg/dL 1.9 2.0 Phosphorus mg/dL 3.7 3.8 Anion Gap mmol/L 9 9 Complete Blood Count: Lab results within last 7 days (see chart for full results) Units 02/03/23 0351 02/02/23 2343 WBC K/uL 13.06* 8.36 HGB g/dL 9.7* 9.3* HCT % 31.2* 30.1* PLT K/uL 141 125* MCV fL 94.3 94.1 Cardiac Studies: Lab results within last 7 days (see chart for full results) Units 02/03/23 0351 02/02/23 2343 Troponin T, High Sensitivity ng/L 112* 116* BNP, NT-Pro pg/mL -- 6,933* Coagulation Studies: Lab results within last 7 days (see chart for full results) Units 02/02/23 2343 Prothrombin Time seconds 16.5* INR 1.3* aPTT seconds 29 Liver Function Panel: Lab results within last 7 days (see chart for full results) Units 02/02/23 2343 Albumin g/dL 2.9* Protein g/dL 6.4 Bilirubin, Total mg/dL 0.6 Bilirubin, Direct mg/dL 0.3 AST U/L 33 ALT U/L 18 Alkaline Phosphatase U/L 74 Infectious Studies: Lab results within last 7 days (see chart for full results) Units 02/02/23 2343 Lactate, Whole Blood mmol/L 1.8 Cultures: reviewed. Recent Cultures (2 Weeks) 01/24/2022 11/07/2020 08/22/2020 03/01/2020 10/22/2019 05/01/2015 08/18/2007 01/26/2007 3:00 PM 9:18 AM 9:49 AM 11:46 AM 12:15 PM 11:38 AM 9:30 AM 9:31 AM SPECIMEN DESCRIPTION -- -- -- CLEAN CATCH URINE CLEAN CATCH URINE URINE CLEAN CATCH URINE CLEAN CATCH URINE CULTURE -- -- -- LESS THAN 10,000 COLONIES/ML MIXED NORMAL KOJO LESS THAN 10,000 COLONIES/ML MIXEDNORMAL KOJO LESS THAN 10,000 COLONIES/ML MIXED KOJO >100,000 COLONIES/ML ESCHERICHIA COLI THISGRAM NEGATIVE BACILLI DISPLAYS IN ... LESS THAN 1,000 COLONIES/ML (NO GROWTH) LESS THAN 10,000 COLONIES/ML ONE OTHER SPECIES QUANT URINE CULTURE GROWTH No significant growth >100,000 colonies/mL Escherichia coli 10,000 to100,000 colonies/mL Escherichia coli -- -- -- -- -- Radiographic Studies: reviewed. XR CHEST 1 VIEW Result Date: 02/03/2023 IMPRESSION 1. No evidence of pneumoperitoneum. Recommend a CT if there is continued clinical concern. 2. Increased bilateral opacities, likely a combination of edema and atelectasis. Cannot exclude infiltrate in the left midlung or bases. 3. Moderate left and small right pleural effusions. XR ABDOMEN 1 VIEW Result Date: 02/03/2023 IMPRESSION 1. No evidence of pneumoperitoneum. Recommend a CT if there is continued clinical concern. 2. Increased bilateral opacities, likely a combination of edema and atelectasis. Cannot exclude infiltrate in the left midlung or bases. 3. Moderate left and small right pleural effusions. Assessment & Plan Principal Problem: Upper GI bleed (POA: Yes) Active Problems: Acute blood loss anemia (POA: Yes) Hemorrhagic shock (HCC) (POA: Yes) POA = Present On Admission NEUROLOGIC: No issues PULMONARY / RESPIRATORY: AHRF likely 2/2 to volume overload from resuscitation +/- anemia CXR with finding suggestive of edema. Trial lasix 40 mg x1 On LFNC. Wean as tolerated Respiratory driven protocol CARDIOVASCULAR: Concern for Hemorrhagic shock Hx Cardiac amyloidosis Hx Tachy-Igor syndrome s/p PPM Hx Atrial fibrillation Hx HFpEF Patient has received 2 U FFP, 2 U PRBC at OSH Trend CBC q6h Lactate WNL Continue resuscitation favoring blood products, goal hgb > 7 MAP goal > 65 Continue CATALOGING ASSISTANT amiodarone Continue CATALOGING ASSISTANT midodrine Hold CATALOGING ASSISTANT aspirin, Eliquis, and diuretic regimen Tropenemia (peaked) likely demand in nature. Obtaining EKG this AM. GASTROINTESTINAL / HEPATOBILIARY: Upper GI bleed Gastric ulcer Hx PUD GI consulted, appreciate recs Consider IR intervention if profusely bleeding Last Bowel Movement: 01/03/23 (02/03/23 06) Stool Description: Blood;Liquid;Large (02/03/23 06) Bowel Regimen: none . Stress Ulcer Prophylaxis: Proton Pump Inhibitor.. Diet / Nutrition: NPO except meds RENAL / METABOLIC / FLUIDS: Serum creatinine: 0.7 mg/dL 02/03/23 0351 Estimated creatinine clearance: 52.4 mL/min Monitor electrolytes at least daily. Replete electrolytes as indicated Avoid Nephrotoxins including NSAIDS Strict monitoring of fluid intake and output Renal dosing and medication considerations adjusted for glomerular filtration rate Daily weights INFECTIOUS DISEASES: Recent UTI - Had completed course of CTX during recent hospitalization - Currently asymptomatic - Repeat UA not suggestive of UTI ENDOCRINE: Hx Hypothyroidism CATALOGING ASSISTANT levothyroxine Blood Glucose Monitoring (BGM) Goal: 140-180 HEMATOLOGIC: Acute blood loss anemia Hx Multiple myeloma Resuming CATALOGING ASSISTANT acyclovir for ppx VTE/DVT Prophylaxis: pneumatic compression devices alone due to chemoprophylaxis contraindication MUSCULOSKELETAL/ P.T / O.T. / MOBILITY: PT/OT DERMATOLOGIC / WOUND CARE: Wound care PRN LINES / DRAINS / TUBES: LINES ALL Duration Peripheral Line Anterior;Right Hand 20 Gauge <1 day Peripheral Line Left 20 Gauge <1 day Peripheral Line Left;Lower 18 Gauge <1 day Peripheral Line Right Antecubital 18 Gauge <1 day Urethral Catheter Regular catheter <1 day List of consulted services: ADULT PHYSICAL THERAPY CONSULT IP ADULT OCCUPATIONAL THERAPY CONSULT IP GASTROENTEROLOGY CONSULT IP GLOBAL ISSUES: Code Status: Full Code Analgesia: no pain Sedation: N/A Delirium/Confusion Assessment Method for ICU (CAM-ICU): CAM-ICU negative HOB Elevation: greater than 30 degrees Nutrition: NPO except medications DVT Prophylaxis: pneumatic compression devices alone due to chemoprophylaxis contraindication Stress Ulcer Prophylaxis: PPI therapy for other indication Glycemic Control: controlled - not in protocol Oral hygiene every four hours Chlorhexidine mouth rinse every twelve hours Central Line Necessity Reviewed: N/A Huerta: reviewed and needed Disposition: keep in ICU :[id number]} Patient's decisional capacity: has capacity to make decisions Communication with Patient/Family: No meeting held. Goals of Care: wean respiratory parameters and stabilize hemodynamic status Patient was discussed with DO Carlee Fowler MD Resident Physician Attending Attestation: I have discussed the patient's management with the medical trainee and agree with the note. Please refer to the documented findings and plan of care. The patient's bedside service today consisted of an evaluation. I was present and confirmed the findings of the history and exam. Anel Hogue beatris 77 year old female with multiple myeloma, cardiac amyloid, atrial fibrillation on Eliquis, recentpacemaker placement, heart failure with preserved ejection fraction presenting with acute blood loss anemia from upper GI bleed. EGD showed a large gastric ulcer. CT without evidence of perforation. Went for repeat EGD today. Continue to hold anticoagulation. Continue IV PPI and Carafate. Has received significant fluid resuscitation, will give a dose of Lasix. Critical care time 35 minutes independent of teaching, procedures, or other providers. documented in this encounter H&P Notes * Jose Daniels DO - 02/06/2023 12:17 PM EST Endoscopy Pre-Procedure Assessment Name: Aenl Hogue Date: 02/06/2023 Time: 12:17 PM Procedure(s): Upper GI Endoscopy; with Indication(s) of evaluation and management of GI bleeding and/or iron-deficiency anemia Endoscopy Pre-Procedure Assessment: Prior to the procedure, the patient is identified. The patient's history, medications and allergieshave been reviewed. The patient is competent. The risks and benefits of the proposed procedure and the planned sedation have been discussed with the patient. All questions have been answered and informed consent for the procedure has been obtained. Prior to Admission medications Medication Sig Last Dose Discont. Nitroglycerin 0.4 MG Sublingual Tablet Sublingual (Nitrostat) Place 1 Tablet under the tongue every5 minutes as needed for Pain, Chest. Unknown Levothyroxine Sodium 50 MCG Oral Tablet (Levoxyl) Take 1 Tablet by mouth in the morning. (at least 30 min prior to breakfast or other meds). Amiodarone HCl 200 MG Oral Tablet (Cordarone) Take 1 Tablet by mouth in the morning and 1 Tablet before bedtime. Midodrine HCl 2.5 MG Oral Tablet (Proamatine) Take 1 Tablet by mouth in the morning and 1 Tablet atnoon and 1 Tablet before bedtime. Pantoprazole Sodium 40 MG Oral Tablet Delayed Release (Protonix) Take 1 Tablet by mouth in the morning. guaiFENesin ER 1200 MG Oral Tablet Extended Release 12 Hour Take 600 mg by mouth in the morning [id number] mg in the evening. predniSONE 10 MG Oral Tablet (Deltasone) Take 1 Tablet by mouth in the morning. 40mg daily x 1 day then 30mg daily x 2 days then 20mg daily x 2 days, then 10mg daily x 2 days then stop.. Polyethylene Glycol 3350 17 GM/SCOOP Oral Powder (Miralax) TAKE 17 GRAMS DIRECTED DAILY NEEDED FOR CONSTIPATION Spironolactone 25 MG Oral Tablet (Aldactone) Take 1 Tablet by mouth in the morning. Sucralfate 1 GM/10ML Oral Suspension (Carafate) Take 10 mL by mouth in the morning and 10 mL at noon and 10 mL in the evening and 10 mL before bedtime. Acyclovir 400 MG Oral Tablet (Zovirax) Take by mouth 1 Tablet in the morning AND 1 Tablet before bedtime. Famotidine 20 MG Oral Tablet (Pepcid) Take 1 Tablet by mouth in the morning and 1 Tablet before bedtime. Fluticasone Propionate 50 MCG/ACT Nasal Suspension (2) sprays each nostril once daily -for nasal congestion Prochlorperazine Maleate 10 MG Oral Tablet (Compazine) Take by mouth 1 Tablet every 6 hours as needed for Nausea. Vitamin D-3 25 MCG (1000 UT) Oral Capsule Take 1 Capsule by mouth in the morning. Juice Plus Fibre Oral Liquid Take 4 Tabs by mouth daily. Ondansetron HCl 8 MG Oral Tablet (Zofran) Take 1 Tab by mouth every 8 hours as needed for Nausea. Vitamin B-12 1000 MCG Oral Tablet Take 1 Tablet by mouth in the morning. Review of patient's allergies indicates: Allergen Reactions Environmental [Pollen] Iron [Ferrous Sulfate] Couldn't tolerate Ferrous sulfate pills, but can take 1 a day vitamins Torsemide Itching BP 111/67 | Pulse 60 | Temp 36.7 C (98.1 F) (Tympanic) | Resp 17 | Ht 1.575 m (5' 2") | Wt 63.4kg (139 lb 12.4 oz) | LMP 07/22/1998 | SpO2 93% | BMI 25.56 kg/m | BSA 1.67 m Physical Exam: Mental Status Examination: alert and oriented. Airway Examination: normal oropharyngeal airway and neck mobility. Respiratory Examination: clear to auscultation. CV Examination: normal. ASA Grade: III - A patient with severe systemic disease. Abdomen: negative This patient has undergone a preprocedural evaluation. A determination has been made to proceed with the planned procedure under [facility] procedural guidelines and the [facility] Non-Emergent, Elective Medical Services and Treatment Recommendations (published on 07-06-19). The community and hospital prevalence of COVID-19 has been discussed as well as this patient's specific risks associated with SARS-CoV-19 infection. Based upon the clinical acuity and patient-specific care considerations, this procedure is deemed a Tier II - Intermediate acuity treatment or service with either progression or the threat of progressive disease related to the delay in treatment. Not providing the service has the potential for increasing morbidity or mortality. After reviewing the risks and benefits, the patient is deemed in satisfactory condition to undergo the procedure. The anesthesia plan is to use general anesthesia. Jose Daniels DO 02/06/2023 * Marcos Avila MD - 02/02/2023 9:21 PM EST Images from the original note were not included. HISTORY & PHYSICAL EXAMINATION - Critical Care Medicine [address] [id number] Name: Anel Hogue [place] [facility] [place] Date: 02/02/2023 Time: 11:05 PM Care during the described time interval was provided by me. I have reviewed this patient's available data, including medical history, events of note, physical examination and test results. 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 She was stared on Eliquis for afib on 01/30/23, during this admission. Patient presented to the ED at [facility] today with achief complaint of hematemesis. She reportedly had large volume hematemesis and hematochezia on arrival to the ED. She was hypotensive in the ED and was given 2 U PRBC, 2 U FFP. Her Eliquis was reversed with KCentra. During ED stay, hgb noted to drop from 11.3 to 8.9. GI was consulted at their facility and she underwent EGD which showed a large gastric ulcer with stigmata of recent bleeding and concern for perforation. Subsequent CT abdomen and pelvis was performed and showed no evidence of perf oration. Decision was made to transfer her here for GI evaluation, possibly IR and surgery evaluation pending clinical course. Patient arrived via [facility]. She is comfortable with no signs of distress. SBP in 80s to 90s with MAP 55-60 however appears clinically well perfused. She denies CP or SOB. Was light-headed at [facility], but this has resolved with resuscitation. She denies abdominal pain. She lives at home with her and is independent in ADLs. PAST MEDICAL HISTORY: Past Medical History: Diagnosis Date Diffuse cystic mastopathy s/p negative right breast bx PAST SURGICAL HISTORY: Past Surgical History: Procedure Laterality Date COLONOSCOPY 10/29/2004 Negative- repeat in 10 years COLONOSCOPY, DIAGNOSTIC (RECTUM) 05/23/2015 diverticulosis, repeat 10 yrs DEXA SCAN/BONE MINERAL AXIAL 12/29/2001 - 1.5 and -2.01 range- repeat 2003 EGD, FLEXIBLE, DIAGNOSTIC 05/23/2015 acid reflux, lg HH/ESOPHAGOGASTRODUODENOSCOPY (EGD), FLEXIBLE, TRANSORAL, DIAGNOSTIC performed by Todd Wagoner MD at ENDOSCOPY [facility] EGD, FLEXIBLE, DIAGNOSTIC 10/25/2021 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 / INPT [facility] LIGATE/CUT OVIDUCT(S) 03/31/1978 Tubal Ligation PUNCTURE DRAINAGE BREAST CYST 12/29/1989 benign fibrocystic tissue REMOVE CATARACT, INSERT LENS PROSTH Right 02/01/2020 RIGHT EXTRACAPSULAR CATARACT REMOVAL WITH INTRAOCULAR LENS performed by Jossue Mancera MD at OR [facility] REMOVE CATARACT, INSERT LENS PROSTH Left 02/10/2020 LEFT EXTRACAPSULAR CATARACT REMOVAL WITH INTRAOCULAR LENS performed by Jossue Mancera MD at OR [facility] FAMILY HISTORY: Family History Problem Relation Age of Onset Hypertension Mother Cancer Mother age 90- metastatic cancer Stroke Father age 51- hemorrhagic CVA Hypertension Father Hypertension Brother SOCIAL HISTORY: Social History Tobacco Use Smoking status: Former Types: Cigarettes Quit date: 03/31/1967 Years since quittin.8 Smokeless tobacco: Never Tobacco comments: quit early ' Vaping Use Vaping Use: Never used Substance Use Topics Alcohol use: No Drug use: No PRIOR TO ADMISSION MEDS: Prior to Admission medications Medication Sig Last Dose Discont. Levothyroxine Sodium 50 MCG Oral Tablet (Levoxyl) Take 1 Tablet by mouth in the morning. (at least 30 min prior to breakfast or other meds). Amiodarone HCl 200 MG Oral Tablet (Cordarone) Take 1 Tablet by mouth in the morning and 1 Tablet before bedtime. Midodrine HCl 2.5 MG Oral Tablet (Proamatine) Take 1 Tablet by mouth in the morning and 1 Tablet atnoon and 1 Tablet before bedtime. Pantoprazole Sodium 40 MG Oral Tablet Delayed Release (Protonix) Take 1 Tablet by mouth in the morning. Doxycycline Hyclate 100 MG Oral Capsule Take 1 Capsule by mouth in the morning and 1 Capsule beforebedtime. guaiFENesin ER 1200 MG Oral Tablet Extended Release 12 Hour Take 600 mg by mouth in the morning [id number] mg in the evening. predniSONE 10 MG Oral Tablet (Deltasone) Take 1 Tablet by mouth in the morning. 40mg daily x 1 day then 30mg daily x 2 days then 20mg daily x 2 days, then 10mg daily x 2 days then stop.. Polyethylene Glycol 3350 17 GM/SCOOP Oral Powder (Miralax) TAKE 17 GRAMS DIRECTED DAILY NEEDED FOR CONSTIPATION Spironolactone 25 MG Oral Tablet (Aldactone) Take 1 Tablet by mouth in the morning. Sucralfate 1 GM/10ML Oral Suspension (Carafate) Take 10 mL by mouth in the morning and 10 mL at noon and 10 mL in the evening and 10 mL before bedtime. Nitroglycerin 0.4 MG Sublingual Tablet Sublingual (Nitrostat) 1 Tablet. Acyclovir 400 MG Oral Tablet (Zovirax) Take by mouth 1 Tablet in the morning AND 1 Tablet before bedtime. Famotidine 20 MG Oral Tablet (Pepcid) Take 1 Tablet by mouth in the morning and 1 Tablet before bedtime. Fluticasone Propionate 50 MCG/ACT Nasal Suspension (2) sprays each nostril once daily -for nasal congestion Prochlorperazine Maleate 10 MG Oral Tablet (Compazine) Take by mouth 1 Tablet every 6 hours as needed for Nausea. Vitamin D-3 25 MCG (1000 UT) Oral Capsule Take 1 Capsule by mouth in the morning. Juice Plus Fibre Oral Liquid Take 4 Tabs by mouth daily. Ondansetron HCl 8 MG Oral Tablet (Zofran) Take 1 Tab by mouth every 8 hours as needed for Nausea. Vitamin B-12 1000 MCG Oral Tablet Take 1 Tablet by mouth in the morning. ALLERGIES: Environmental [pollen], Iron [ferrous sulfate], and Torsemide ROS: Negative except as noted in HPI OBJECTIVE: Most Recent Vital Signs: BP: 85 mmHg/45 mmHg (02/02/232299) Pulse: 60 (02/02/232299) Temp: 36.78 C (02/02/232229) Resp: 25 (02/02/232299) SpO2: 95 % (02/02/232299) Physical Exam: Constitutional: Elderly female, no distress HEENT: NC nad AT, dry mucous membranes Eyes: PERRLA, sclera and conjunctiva normal, +periorbital amyloid deposits Neck: supple, normal range of motion CV: paced, regular, +systolic murmur Chest: Breathing non-labored, breath sounds clear Abdomen: Soft, non-tender, +fluid wave Extremities: Warm and well perfused, intact peripheral pulses, no significant edema Skin: warm, dry, intact: Neuro: alert, oriented to person, place, and time, Glascow Coma Score 15, muscular strength 5/5 andsymmetric, sensory normal Laboratory Values: Per [facility]: WBC- 12.28 HGB- 8.9 <-- 1.3 HCT- 36.5 PLT- 243 PT- 13.1 INR- 1.2 aPTT- 27.1 BUN- 23 SURGICAL TRAINING SPECIALIST- 0.76 Na- 136 K- 4.2 Cl- 103 CO2- 23 Glu- 132 Ca- 8.8 Ionized Ca- 1.14 AG- 10 Albumin- 3.4 Alk Phos- 81 ALT- 14 AST- 27 TBili- 0.9 Radiographic Studies: EGD report per [facility] below: ASSESSMENT: Acute Problems: -Hemorrhagic shock -Upper GI bleed -Gastric ulcer -Acute blood loss anemia Chronic Conditions: -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 -Atrial fibrillation -HFpEF -Chronic hypotension on midodrine -PUD with prior GIB -Hypothyroidism -Multiple myeloma SYSTEM BASED PLAN: Neurological No issues Cardiovascular Hemorrhagic shock Hx Cardiac amyloidosis Hx Tachy-Igor syndrome s/p PPM Hx Atrial fibrillation Hx HFpEF -Patient has received 2 U FFP, 2 U PRBC at OSH -Trend CBC and LA q6h -Continue resuscitation favoring blood products, goal hgb > 7 -Tolerate MAP 55-60 given baseline hypotension as long as lactate is normal -Continue CATALOGING ASSISTANT amiodarone -Continue CATALOGING ASSISTANT midodrine -Hold CATALOGING ASSISTANT aspirin, Eliquis, and diuretic regimen Respiratory New oxygen requirement -Suspect mild volume overload related to resuscitation -Obtain CXR -Nasal cannula PRN -Respiratory patient driven protocol Gastrointestinal/Hepatobiliary Upper GI bleed Gastric ulcer Hx PUD -GI consulted, will see patient in am as long as she remains stable -Plan to reach out to IR if re-bleed overnight -Diet: NPO except meds -Stress ulcer prophylaxis: IV Panoprazole and Sucralfate QID -Bowel regimen: Holding Renal/FEN No issues -Trend BMP daily Endocrine Hx Hypothyroidism -CATALOGING ASSISTANT levothyroxine Infectious Disease Recent UTI -Has completed course of CTX during recent hospitalization -Currently asymptomatic -Check UA and urine culture Hematology/Oncology Acute blood loss anemia Hx Multiple myeloma -DVT chemoprophylaxis: Holding -DVT mechanical prophylaxis with SCDs/TEDs Musculoskeletal/Skin No issues -PT/OT as able -Frequent turns and repositioning Lines/Tubes/Drains PIV x 4 [place] GLOBAL ISSUES: Analgesia: no pain Sedation: N/A Delirium/Confusion Assessment Method for ICU (CAM-ICU): CAM-ICU negative HOB Elevation: greater than 30 degress Nutrition: NPO except medications DVT Prophylaxis: pneumatic compression devices alone due to chemoprophylaxis contraindication Stress Ulcer Prophylaxis: PPI therapy for other indication Glycemic Control: controlled - not in protocol Central Line Necessity Reviewed: N/A Deanna: reviewed and needed Disposition: keep in ICU Patient's decisional capacity: has capacity to make decisions Communication with Patient/Family: No meeting held. Code status discussed with patient. She would like to be full code in the short term, but expressed that she would not like prolonged life support Goals of Care: wean respiratory parameters and stabilize hemodynamic status I have provided critical care diagnostic services for circulatory failure, respiratory failure, hematologic failure and therapeutic services with volume resuscitation, treatment of complex metabolic,frequent evaluation and titration of therapies, application of advanced monitoring technologies, extensive interpretation of multiple databases for this patient on the date referenced above. Time devoted to patient care services described in this note equal: 45 minutes total critical care time exclusive of time spent performing procedures or time spent by another provider or resident. Patient seen and discussed with Dr. Avila. Kodi Pantoja PA-C 02/02/2023 11:19 PM I have reviewed the advanced practitioner documentation and agree. I saw and evaluated the patient on date of service referenced in note and have performed the following medically appropriate historyand/or exam: ASSESSMENT 1. Acute blood loss anemia 2. Upper GI bleed from gastric ulcer 3. Chronic hypotension on midodrine 4. History of cardiac amyloidosis, tachy-igor syndrome status post pacemaker placement, atrial fibrillation, heart failure with preserved ejection fraction, peptic ulcer disease, multiple myeloma Plan 1. Patient appears comfortable with no respiratory distress. She answers questions appropriately, maps between 60-62 without any pressor support. 2. Titrate off of oxygen as tolerated 3. Obtain repeat blood work including hemoglobin and lactate. Will continue to tolerate a map around 60 if lactate is normal. IV colitis station as needed. 4. IV PPI drip. GI consult. Possible scope as per GI. If GI can not offer any intervention, will consider IR consult. 5. Hold anticoagulation and diuretics for tonight 6. Continue amiodarone, levothyroxine, midodrine, mechanical DVT prophylaxis. Will need to clarify from patient's pharmacy in AM if patient is on chronic prednisone. For the time being will watch patient off prednisone I personally provided 40 minutes of critical care for circulatory failure, respiratory failure, hematologic failure with this patient on the date of service referenced in note and exclusive of time spent performing procedures or time spent by another provider or resident. . documented in this encounter Procedure Notes * Shreyas Lerma DO - 02/06/2023 12:07 PM ESTAssociated Order(s): UPPER GI ENDOSCOPY [facility] Patient Name: Anel Hogue Procedure Date: 02/06/2023 12:07 PM Date of : 1945 Admit Type: Inpatient Note Status: Finalized Date of : 1945 Admit Type: Inpatient Age: 77 Room: Endo - Room 8 Gender: Female Note Status: Finalized Procedure: Upper GI endoscopy Indications: Recent gastrointestinal bleeding Providers: Jose Daniels DO (Doctor), Regan Rangel MD (Fellow) Patient Profile: This is a 77 year old female. Refer to note in patient chart for documentation of history and physical. Referring MD: Shreyas Lerma DO Medicines: Monitored Anesthesia Care Complications: No immediate complications. Procedure: Pre-Anesthesia Assessment: - [place] Protocol: - Pre-procedure Verification: Prior to the procedure, the patient's identity was verified by full name, date of and medical record number. The patient's identity was verified on all pertinent medical records, including History and Physical, nursing assessment and pre-anesthesia assessment. Also prior to the procedure, a History and Physical was performed, and patient medications, allergies and sensitivities were reviewed. The patient's tolerance of previous anesthesia was reviewed. The patient is competent. The risks and benefits of the procedure and the sedation options and risks were discussed with the patient. All questions were answered and informed consent was obtained. - Marking: The endoscopic procedure was visually marked on a patient wrist band delineating the patient name, proposed procedure and endoscopist's initials. - Time-Out: Prior to the start of the procedure, the patient's identification, proposed procedure, accurate signed consent, correctly labeled images and records, and need for prophylactic antibiotics were verified by the physician, the nurse and the anesthesiologist in the endoscopy suite. - The supervising physician was present for the entire procedure from scope insertion until scope withdrawal. After obtaining informed consent, the endoscope was passed under direct vision. All instruments were visually inspected immediately before and after removal from the patient to ensure they are fully intact. Throughout the procedure, the patient's blood pressure, pulse, and oxygen saturations were monitored continuously. The GIF-Q180 Endoscope ([id number]) was introduced through the mouth, and advanced to the second part of duodenum. The upper GI endoscopy was accomplished without difficulty. The patient tolerated the procedure well. Findings & Specimens: The examined esophagus was normal. One non-bleeding cratered gastric ulcer with a clean ulcer base (Dionisio Class III) was found in the stomach. Biopsies were taken with a cold forceps for histology. The pathology specimen was placed into Bottle A. A previously placed plastic biliary stent was seen in the ampulla. Impression: - Normal esophagus. - Non-bleeding gastric ulcer with a clean ulcer base (Dionisio Class III). Biopsied. - Plastic biliary stent in the duodenum. Recommendation: - Return patient to ICU for ongoing care. - Await pathology results. - Use Prilosec (omeprazole) 40 mg PO BID X 8 weeks then once daily. - Repeat upper endoscopy to check healing with Dr. Stuart on 03/12/23 (planned EUS- GB drainage and ERCP) Jose Daniels DO 02/06/2023 1:36:16 PM This report has been signed electronically. Regan Rangel MD Estimated Blood Loss: Estimated blood loss was minimal. * Shreyas Lerma DO - 02/03/2023 11:52 AM ESTAssociated Order(s): UPPER GI ENDOSCOPY [facility] Patient Name: Anel Hogue Procedure Date: 02/03/2023 11:52 AM Date of : 1945 Admit Type: Inpatient Note Status: Draft Date of : 1945 Admit Type: Inpatient Age: 77 Room: Endo - Room 9 Gender: Female Note Status: Finalized Procedure: Upper GI endoscopy Indications: Hematemesis Providers: Shiva Pineda MD (Doctor), Baljeet Angulo MD (Fellow) Patient Profile: This is a 77 year old female. Refer to note in patient chart for documentation of history and physical. Referring MD: Shreyas Lerma DO, Jose Daniels DO, Janae Casas DO, Cy Braxton MD Medicines: Monitored Anesthesia Care Complications: No immediate complications. Procedure: Pre-Anesthesia Assessment: - Prior to the procedure, a History and Physical was performed, and patient medications and allergies were reviewed. The patient is competent. The risks and benefits of the procedure and the sedation options and risks were discussed with the patient. All questions were answered and informed consent was obtained. Patient identification and proposed procedure were verified by the physician, the nurse, the anesthesiologist, the proposal editor and the pharmaceutical laboratory technician in the pre-procedure area in the procedure room in the endoscopy suite. Mental Status Examination: alert and oriented. Airway Examination: normal oropharyngeal airway and neck mobility. Respiratory Examination: clear to auscultation. CV Examination: normal. Prophylactic Antibiotics: The patient does not require prophylactic antibiotics. Prior Anticoagulants: The patient has taken Eliquis (apixaban), last dose was 2 days prior to procedure. ASA Grade Assessment: III - A patient with severe systemic disease. After reviewing the risks and benefits, the patient was deemed in satisfactory condition to undergo the procedure. The anesthesia plan was to use monitored anesthesia care (MAC). Immediately prior to administration of medications, the patient was re-assessed for adequacy to receive sedatives. The heart rate, respiratory rate, oxygen saturations, blood pressure, adequacy of pulmonary ventilation, and response to care were monitored throughout the procedure. The physical status of the patient was re-assessed after the procedure. - The supervising physician was present for the entire procedure from scope insertion until scope withdrawal. After obtaining informed consent, the endoscope was passed under direct vision. All instruments were visually inspected immediately before and after removal from the patient to ensure they are fully intact. Throughout the procedure, the patient's blood pressure, pulse, and oxygen saturations were monitored continuously. The GIF-HQ190 Endoscope ([id number]) was introduced through the mouth, and advanced to the second part of duodenum. The [id number] Endoscope ([id number]) was introduced through the mouth, and advanced to the second part of duodenum. The upper GI endoscopy was accomplished without difficulty. The patient tolerated the procedure well. Findings & Specimens: The examined esophagus was normal. An endoclip was found in the gastric fundus. The padlock that is visible on x- ray was not clearly seen during this procedure but is thought to be in the same location. There was no sign of bleeding at the site of this prior intervention. A large amount of clotted blood was found on the greater curvature of the stomach. Lavage of the area was performed using copious amounts of tap water, followed by debulking of the clot with a 30mm snare and EndoRotor device, resulting in incomplete clearance with fair visualization. One non-obstructing cratered gastric ulcer with heaped-up edges with oozing hemorrhage (Dionisio Class Ib) was found on the greater curvature of the stomach. The lesion was 40 mm in largest dimension. To stop active bleeding, hemostatic spray was deployed. Two sprays were applied. There was no bleedingat the end of the procedure. Estimated blood loss was minimal. Biopsies were taken with a cold forcepsfor histology. Verification of patient identification for the specimen was done by the physician, nurseand pharmaceutical laboratory technician using the patient's name, date and medical record number. The pathology specimen was placed into Bottle A. Estimated blood loss was minimal. The examined duodenum was normal. Impression: - Normal esophagus. - An endoclip was found in the stomach. - Clotted blood in the greater curvature of the stomach. - Non-obstructing gastric ulcer with oozing hemorrhage (Dionisio Class Ib). Hemostatic spray applied. Biopsied. - Normal examined duodenum. Recommendation: - Return patient to ICU for ongoing care. - Repeat upper endoscopy 1-2 days to evaluate the response to therapy and for a better look at the ulcer. - Additional recs per inpatient GI consult team Shiva Pineda MD 02/03/2023 1:41:59 PM This report has been signed electronically. Baljeet Angulo MD 02/03/2023 2:38:21 PM Estimated Blood Loss: Estimated blood loss was minimal. * Odin Lyon MD - 02/03/2023 8:41 AM ESTAssociated Order(s): EKG REASON FOR STUDY: TRIPONINS CONCLUSIONS: Ventricular-paced rhythm in a pattern of bigeminy Abnormal ECG When compared with ECG of 27-APR-2021 11:55, Electronic pacemaker detected has replaced Junctional rhythm Ventricular Rate: 123 Atrial Rate: 123 QRS Duration: 40 QT/QTc: 140/200 ms P-R-T [place]: 0 : -64 : 124 degrees documented in this encounter Consult Notes * Abiola Tay, OTR/L - 02/04/2023 12:47 PM EST OOB EVALUATION - Occupational Therapy [address] [address] Name: Anel Hogue [place] [facility] [place] Date: 02/04/2023 Time: 2:46 PM Anel Hogue is a 77 year old female. Patient Status: Inpatient Insurance: Payor: [employer] [facility] [employer]) MEDICARE ADVANTAGE Plan: [email or web address] PPO Product Type:*No Product type* Patient Seen: at bedside, nursing cleared patient for therapy Patient Identified By: Name, ID Band and Date Diagnosis: GI bleed (02/04/231246) Status of treatment: OOB evaluation completed (02/04/231246) Orders: OT evaluation and treatment;OT OOB (02/04/231246) Weight Bearing Status: Weight bearing as tolerated (02/04/231246) Precautions: Alarms;Falls;Safety (02/04/231246) Total Treatment Time: 15 (02/04/231246) Past Medical History: Past Medical History: Diagnosis Date Diffuse cystic mastopathy s/p negative right breast bx Past Surgical History: Past Surgical History: Procedure Laterality Date COLONOSCOPY 10/29/2004 Negative- repeat in 10 years COLONOSCOPY, DIAGNOSTIC (RECTUM) 05/23/2015 diverticulosis, repeat 10 yrs DEXA SCAN/BONE MINERAL AXIAL 12/29/2001 - 1.5 and -2.01 range- repeat 2003 EGD, FLEXIBLE, DIAGNOSTIC 05/23/2015 acid reflux, lg HH/ESOPHAGOGASTRODUODENOSCOPY (EGD), FLEXIBLE, TRANSORAL, DIAGNOSTIC performed by Todd Wagoner MD at ENDOSCOPY [facility] EGD, FLEXIBLE, DIAGNOSTIC 10/25/2021 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 / INPT [facility] LIGATE/CUT OVIDUCT(S) 03/31/1978 Tubal Ligation PUNCTURE DRAINAGE BREAST CYST 12/29/1989 benign fibrocystic tissue REMOVE CATARACT, INSERT LENS PROSTH Right 02/01/2020 RIGHT EXTRACAPSULAR CATARACT REMOVAL WITH INTRAOCULAR LENS performed by Jossue Mancera MD at [facility] REMOVE CATARACT, INSERT LENS PROSTH Left 02/10/2020 LEFT EXTRACAPSULAR CATARACT REMOVAL WITH INTRAOCULAR LENS performed by Jossue Mancera MD at OR [facility] Social History/Disposition Lives with: Spouse (02/03/23929) Assistance available: Yes (02/03/23929) Dwelling type: Single story home (02/03/23929) Entry steps: None (02/03/23929) Inside steps: None (02/03/23929) Bedroom location: 1st floor (02/03/23929) Bath location: 1st floor full bath (02/03/23929) Prior Level of Function Reported by: Patient (02/03/23929) Ambulation: Ambulatory without device (02/03/23929) Grooming: Independent (02/03/23929) Bathing: Independent (02/03/23929) Dressing: Independent (02/03/23929) Feeding: Independent (02/03/23929) Toileting: Independent (02/03/23929) Meal Prep: Independent (02/03/23929) Homemaking: Independent (02/03/23929) Durable Medical Equipment at home: Rolling walker (02/03/23929) Observations Consciousness: Alert (02/04/231246) Orientation: Oriented times 4 (02/04/231246) Psychosocial: Patient can communicate basic needs;Patient can converse in a social setting (02/04/231246) Sitting posture: Forward head;Rounded shoulders (02/04/231246) Standing posture: Forward head;Rounded shoulders (02/04/231246) Safety awareness: Needs cueing supervision. (02/04/231246) Other Findings Endurance: Functional activity;Poor (02/04/231246) Light touch sensation: LUE;RUE;Intact (02/03/23929) Coordination: LUE;RUE;Intact (02/03/23929) Current Functional Status: Self Care Able to provide self care: Yes (02/04/231246) Grooming: Supervision (Please comment) (brush hair) (02/04/231246) Dressing Upper Body: Minimal Assistance (gown) (02/04/231246) Lower Body: Dependent (socks) (02/04/231246) Functional Ambulation Assistive Device: No device (02/04/231246) Distance in feet:: 3 (02/04/231246) Level of Assistance: Minimal Assistance (x2) (02/04/231246) Bed Mobility Supine-Sit: Minimal Assistance (02/04/231246) OT Transfers Sit-Stand: Minimal Assistance (02/04/231246) Stand-Sit: Minimal Assistance (02/04/231246) Bed-Chair: Minimal Assistance (02/04/231246) Balance Sit (Static): Fair (02/04/231246) Sit (Dynamic): Fair (-) (02/04/231246) Stand (Static): Poor (02/04/231246) Stand (Dynamic): Poor (02/04/231246) Alarm Status Patient positioned in: Chair (02/04/231246) With: Pressure pad alarm intact and functioning and call whitley in reach (02/04/231246) Patient and Family Goals: to get well Patient Education Education Topic: Role of OT;Plan of care goals (02/04/231246) Review of Precautions: Safety;Fall (02/04/231246) Method of Education: Verbalized to patient (02/03/23929) Education Provided to: Patient (02/03/23929) Response to Education: Receptive and agreeable to education (02/03/23929) Barriers to learning: Medical status (02/04/231246) Preferred learning method: Combination (02/04/231246) Treatment Provided: Therapeutic Activity: 15 minutes Deficits Requiring O.T. Treatment: Deficits requiring O.T. treatment needs: ADL/self-care;Balance;Endurance;Functional mobility;IADL;Safety;Upper extremity strength;Weakness (02/04/231246) Goal Time Frame: 10 visits Assessment: Pt seen this date for OT OOB assessment. Pt supine in bed upon therapist arrival. Pt required encouragement to participate in mobility this date. Pt completed bed mobility with Min A, transitioning from supine to sitting at EOB. Pt required Min A for UE dressing and dependence for LE dressing, secondary to decreased functional reach to feet and poor balance. Pt completed sit to stand transfer from EOB with Min A. Pt completed mobility in room with Min Ax2, as she declined using RW. Pt declined further mobility/activity, secondary to c/o fatigue and feeling "weak." Pt would benefitfrom skilled OT services in order to increase independence and facilitate a safe transition to nextlevel of care. Please consider post-acute care services which may include home health, nursing home, outpatient therapy or inpatient rehabilitation. The level of care will be determined in collaboration with patient, family/caregiver and care team members. Goals: BUE Strength/ROM Increase BUE strength to at least one muscle grade. ADLs Increase UE dressing to supervision. Increase UE bathing to supervision. Increase LE dressing to Min A. Increase LE bathing to Min A. Increase grooming and basic hygiene tasks while in stance at sink with CGA. Bed Mobility/Functional Mobility Increase bed mobility to supervision. Increase functional mobility using the least restrictive device to supervision. Functional Transfers Increase functional sit to stand transfers during ADLs to supervision. Increase transfers to toilet to supervision. Increase transfers from bed to chair with supervision. Balance Increase sitting balance at EOB to fair+ during ADLs. Increase standing balance to fair during ADLs. Treatment Plan: Safety, Bed mobility training, Functional Ambulation, Transfer training, Upper extremity strengthening, Balance activities, ADL training, and Endurance Anticipated Frequency (on eval): 1 to 3 times per week (02/04/231246) AM-PAC Help From Another Person Eating Meals: A little (02/04/231246) Help From Another Person Taking Care of Personal Grooming: A little (02/04/231246) Help From Another Person To Put On/Take Off Upper Body Clothing: A little (02/04/231246) Help From Another Person To Put On/Take Off Lower Body Clothing: Total (02/04/231246) Help From Another Person Toileting: A lot (02/04/231246) Help From Another Person Bathing: A lot (11/07/23 1247) OT AM-PAC Score: 14 (02/04/23 1247) OT AM-PAC t-Scale Score: 33.39 (02/04/23 124) A portion of this AM-PAC assessment not scored based on functional assessment, rather clinical decsion making utilized based on current findings and/or prior level of function. Please refer to futureAM-PAC calculations of functional ability as they become available. * Inez Dimas, PT - 02/04/2023 12:34 PM EST GENERAL EVALUATION - Physical Therapy Out of Bed Evaluation [address] [address] Name: Anel Hogue [place] [facility] [place] Date: 02/04/2023 Time: 2:48 PM Anel Hogue is a/an 77 year old female. Patient Status: Inpatient Insurance: Payor: [employer] [place] [employer]) MEDICARE ADVANTAGE Plan: [email or web address] PPO Product Type:*No Product type* Patient Seen: at bedside, nursing cleared patient for therapy Patient Identified By: Name, ID Band and Date Diagnosis: Upper GI bleed (02/04/231233) Status of treatment: OOB evaluation completed (02/04/231233) Orders: PT evaluation and treatment;OOB (02/04/231233) Weight Bearing Status: Weight bearing as tolerated (02/04/231233) Precautions: Alarms;Falls;Safety;Huerta (02/04/231233) Total Treatment Time--free text: 13 minutes (02/04/23 123) Past Medical History: Past Medical History: Diagnosis Date Diffuse cystic mastopathy s/p negative right breast bx Past Surgical History: Past Surgical History: Procedure Laterality Date COLONOSCOPY 10/29/2004 Negative- repeat in 10 years COLONOSCOPY, DIAGNOSTIC (RECTUM) 05/23/2015 diverticulosis, repeat 10 yrs DEXA SCAN/BONE MINERAL AXIAL 12/29/2001 - 1.5 and -2.01 range- repeat 2003 EGD, FLEXIBLE, DIAGNOSTIC 05/23/2015 acid reflux, lg HH/ESOPHAGOGASTRODUODENOSCOPY (EGD), FLEXIBLE, TRANSORAL, DIAGNOSTIC performed by Todd Wagoner MD at ENDOSCOPY [facility] EGD, FLEXIBLE, DIAGNOSTIC 10/25/2021 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 Social History/Disposition Lives with: Spouse (02/04/231233) Assistance available: Yes (02/04/231233) Dwelling type: Single story home (02/04/231233) Entry steps: None (02/04/231233) Inside steps: None (02/04/231233) Bedroom location: 1st floor (02/04/231233) Bath location: 1st floor full bath (02/04/231233) Prior Level of Function Reported by: Patient (02/04/231233) Ambulation: Ambulatory with device (02/04/231233) Ambulatory Device: Rolling walker (02/04/231233) Devices at home: Rolling walker (02/04/231233) Observations Consciousness: Alert (02/04/231233) Orientation: Oriented times 4 (02/04/231233) Psychosocial: Patient can communicate basic needs;Patient can converse in a social setting (02/04/231233) Pain: No complaints of pain Range of Motion Range of Motion: WFL (02/04/231233) Strength Assessment Strength Assessment: Deficits noted (02/04/231233) WNL, except: LLE;RLE (02/04/231233) LLE: Hip;Knee;Ankle;3/5 (02/04/23 123) RLE: Hip;Knee;Ankle;3/5 (02/04/231233) P.T. Bed Mobility Supine-Sit: Minimal Assistance (02/04/231233) Transfers Sit-Stand: Minimal Assistance (02/04/231233) Stand-Sit: Minimal Assistance (02/04/231233) Ambulation: Distance ambulated (feet): 5 ft Assist: Minimal Assistance Ax2 Balance Sit (Static): Fair (02/04/231233) Sit (Dynamic): Fair (02/04/231233) Stand (Static): Fair (F-) (02/04/231233) Stand (Dynamic): Fair (F-) (02/04/231233) Patient and or Family Goal(s): to return home Patient Education Review of Precautions: Safety;Fall (role of PT) (02/04/231233) Safety Awareness: Patient can communicate basic needs (02/04/231233) Preferred learning method: Combination (02/04/231233) Barriers to learning: Medical Status (02/04/231233) Method of Education: Verbalized to patient (02/04/231233) Topic of Education: Safety with mobility and Goals/plan of care Method of Education: Verbal discussion and explanation provided to patient: verbalized understanding and or agreement of this information Treatment Provided: Therapeutic Activities 13 minutes: bed mobility training transfer training Alarm Status Patient positioned in: Chair (02/04/231233) With: Pressure pad alarm intact and functioning and call whitley in reach (02/04/231233) Following session patient seated OOB in chair with chair alarm activated. Chair alarm (did not havecord to plug into call whitley system and/or room did not have port to plug cord into call whitley system). Patient's nurse Monica was made aware. Treatment Status: Treatment at bedside (02/04/231233) Goals: Demonstrate Bed Mobility with: Supine to Sit: supervision (with cues) Sit to supine: supervision (with cues) Demonstrate Transfers with: Sit to stand: supervision (with cues) Stand to sit: supervision (with cues) Bed to chair: supervision (with cues) Demonstrate Ambulation: assistive device: rolling walker distance in feet: 150 ft level of assistance on level surface: supervision (with cues) Increase Strength of: BLE's to 5/5 Increase Balance: F+ dynamic standing Time Frame: 10 visits Assessment: Pt seen for out of bed assessment today. She was able to complete all bed mobility and transfers with Min A. She was then able to ambulate without a device 5 ft Min Ax2 from the bed to the chair. Feel she would benefit from continued PT services in order to increase overall functional mobility as well as activity tolerance. Please consider post-acute care services which may include home health, nursing home, outpatient therapy or inpatient rehabilitation. The level of care will be determined in collaboration with patient, family/caregiver and care team members. Deficits requiring P.T. treatment needs: Lower extremity strength;Safety;Mobility;Balance;Weakness (02/04/23 1234) Equipment Needs: Equipment needs: (TBD) (02/04/23 1234) Treatment Plan: Bed mobility training, Transfer training, Gait training, and Balance activities, strengthening exercises Anticipated Frequency (on eval): 1 to 3 times per week (02/04/23 1234) AM PAC Score with Stairs: 15 A portion of this AM-PAC assessment not scored based on functional assessment due to no assessment of elevations; rather clinical decision making utilized based on current findings and/or prior levelof function. Please refer to future AM-PAC calculations of functional ability as they become available. * Sonny Welch OT - 02/03/2023 9:30 AM ESTAssociated Order(s): ADULT OCCUPATIONAL THERAPY CONSULT IP GENERAL BEDREST EVALUATION- Occupational Therapy [facility] [place] [address] Name: Anel Hogue [place] [facility] [place] Date: 02/03/2023 Time: 9:34 AM HPI: Per EPIC, "Patient was recently hospitalized at [facility] for heart failure/fluid overload. She wasstared on Eliquis for afib on 01/30/23, during this admission. Patient presented to the ED at [facility] today with a chief complaint of hematemesis. She reportedly had large volume hematemesis and hematochezia on arrival to the ED. She was hypotensive in the ED and was given 2 U PRBC, 2 U FFP. Her Eliquis was reversed with KCentra. During ED stay, hgb noted to drop from 11.3 to 8.9. GI was consulted attheir facility and she underwent EGD which showed a large gastric ulcer with stigmata of recent bleeding and concern for perforation. Subsequent CT abdomen and pelvis was performed and showed no evide nce of perforation. Decision was made to transfer her here for GI evaluation, possibly IR and surgery evaluation pending clinical course. Patient arrived via [facility]. She is comfortable with no signs of distress. SBP in 80s to 90s with MAP 55-60 however appears clinically well perfused. She denies CP or SOB. Was light-headed at [facility], but this has resolved with resuscitation. She denies abdominal pain. She lives at home with her and is independent in ADLs." Patient Status: Inpatient Insurance: Payor: [employer] [place] [employer] MEDICARE ADVANTAGE Plan: [employer] Product Type:*No Product type* Patient Seen: at bedside, nursing cleared patient for therapy Patient Identified By: Name, ID Band and Date Diagnosis: GI bleed (02/03/23929) Status of treatment: Bedrest evaluation completed (02/03/23929) Orders: OT evaluation and treatment;OT OOB (02/03/23929) Weight Bearing Status: Weight bearing as tolerated (02/03/23929) Precautions: Alarms;Falls;Safety (02/03/23929) Total Treatment Time: 10 (02/03/23929) Past Medical History: Past Medical History: Diagnosis Date Diffuse cystic mastopathy s/p negative right breast bx Past Surgical History: Past Surgical History: Procedure Laterality Date COLONOSCOPY 10/29/2004 Negative- repeat in 10 years COLONOSCOPY, DIAGNOSTIC (RECTUM) 05/23/2015 diverticulosis, repeat 10 yrs DEXA SCAN/BONE MINERAL AXIAL 12/29/2001 - 1.5 and -2.01 range- repeat 2003 EGD, FLEXIBLE, DIAGNOSTIC 05/23/2015 acid reflux, lg HH/ESOPHAGOGASTRODUODENOSCOPY (EGD), FLEXIBLE, TRANSORAL, DIAGNOSTIC performed by Todd Wagoner MD at [facility]OSCOPY [facility] EGD, FLEXIBLE, DIAGNOSTIC 10/25/2021 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 / INPT [facility] LIGATE/CUT OVIDUCT(S) 03/31/1978 Tubal Ligation PUNCTURE DRAINAGE BREAST CYST 12/29/1989 benign fibrocystic tissue REMOVE CATARACT, INSERT LENS PROSTH Right 02/01/2020 RIGHT EXTRACAPSULAR CATARACT REMOVAL WITH INTRAOCULAR LENS performed by Jossue Mancera MD at OR [facility] REMOVE CATARACT, INSERT LENS PROSTH Left 02/10/2020 LEFT EXTRACAPSULAR CATARACT REMOVAL WITH INTRAOCULAR LENS performed by Jossue Mancera MD at OR [facility] Social History/Disposition Lives with: Spouse (02/03/23929) Assistance available: Yes (02/03/23929) Dwelling type: Single story home (02/03/23929) Entry steps: None (02/03/23929) Inside steps: None (02/03/23929) Bedroom location: 1st floor (02/03/23929) Bath location: 1st floor full bath (02/03/23929) Prior Level of Function Reported by: Patient (02/03/23929) Ambulation: Ambulatory without device (02/03/23929) Grooming: Independent (02/03/23929) Bathing: Independent (02/03/23929) Dressing: Independent (02/03/23929) Feeding: Independent (02/03/23929) Toileting: Independent (02/03/23929) Meal Prep: Independent (02/03/23929) Homemaking: Independent (02/03/23929) Durable Medical Equipment at home: Rolling walker (02/03/23929) Observations Consciousness: Alert (02/03/23929) Orientation: Oriented times 4 (02/03/23929) Psychosocial: Patient can communicate basic needs;Patient can converse in a social setting (02/03/23929) Safety awareness: The Patient verbalizes insight of current deficits.;The Patient demonstrates carryover of insight during functional tasks. (02/03/23929) Pain: No complaints of pain Current Functional Status: UE Strength/ROM: BUE are WFL and 4/5 throughout Self Care Able to provide self care: Yes (02/03/23929) Patient and or Family Goal(s): None Alarm Status Patient positioned in: Bed (02/03/23929) With: Bed alarm intact and functioning and call whitley in reach (02/03/23929) Treatment Provided: Evaluation Moderate Complexity 10 minutes - [id number]: Patient was cooperative during treatment session. Moderate complexity evaluation performed and 3-5 activity limitations were identified, including ADL deficit, decreased strength, and decreased endurance. Minimal or moderate modification of the functional task was necessary to complete the evaluation. Patient Education Education Topic: Role of OT;Plan of care goals (02/03/23929) Review of Precautions: Safety;Fall (02/03/23929) Method of Education: Verbalized to patient (02/03/23929) Education Provided to: Patient (02/03/23929) Response to Education: Receptive and agreeable to education (02/03/23929) Barriers to learning: Medical status (02/03/23929) Preferred learning method: Combination (02/03/23929) Method of Education: Verbal discussion and explanation provided to patient: verbalized understanding and or agreement of this information Assessment: Patient is a 77 year old female admitted on 02/02/23 with GI bleed. She was previously living at home and reports being independent for ADLs/mobility. On exam, patient presents with weakness throughout BUE. She was seen for bedrest eval only at this time per nursing due to nausea/medicalstatus. Patient would benefit from follow up to assess OOB mobility and self care as tolerated. AM-PAC assessment not scored at this time due to bedrest eval only. Please refer to future AM-PAC calculations of functional mobility as they become available. Deficits requiring O.T. treatment needs: ADL/self- care;Balance;Endurance;Functional mobility;IADL;Safety;Upper extremity strength;Weakness (02/03/23929) Goals: Assess as able: OOB mobility and self care Increase strength of BUE by one grade throughout Treatment Plan: Accuracy with Precautions, Safety, Bed mobility training, Functional Ambulation, Transfer training, Coordination Tasks, Upper extremity strengthening, Balance activities, ADL training, and Endurance Goal Time Frame:8 visits Anticipated Frequency (on eval): 1 to 3 times per week (02/03/23929) * Inez Dimas, PT - 02/03/2023 9:29 AM ESTAssociated Order(s): ADULT PHYSICAL THERAPY CONSULT IP GENERAL BEDREST EVALUATION - Physical Therapy [address] [address] Name: Anel Hogue [place] [facility] [place] Date: 02/03/2023 Time: 928 Anel Hogue is a/an 77 year old female. Patient Status: Inpatient Insurance: Payor: [employer] [facility] [employer]) MEDICARE ADVANTAGE Plan: [email or web address] PPO Product Type:*No Product type* Patient Seen: at bedside, nursing cleared patient for therapy Patient Identified By: Name, ID Band and Date Diagnosis: Upper GI bleed (02/03/23928) Status of treatment: Bedrest evaluation completed (02/03/23928) Orders: PT evaluation and treatment;OOB (02/03/23928) Weight Bearing Status: Weight bearing as tolerated (02/03/23928) Precautions: Alarms;Falls;Safety;Huerta (02/03/23928) Total Treatment Time--free text: 8 (02/03/23928) Past Medical History: Past Medical History: Diagnosis Date Diffuse cystic mastopathy s/p negative right breast bx Past Surgical History: Past Surgical History: Procedure Laterality Date COLONOSCOPY 10/29/2004 Negative- repeat in 10 years COLONOSCOPY, DIAGNOSTIC (RECTUM) 05/23/2015 diverticulosis, repeat 10 yrs DEXA SCAN/BONE MINERAL AXIAL 12/29/2001 - 1.5 and -2.01 range- repeat 2003 EGD, FLEXIBLE, DIAGNOSTIC 05/23/2015 acid reflux, lg HH/ESOPHAGOGASTRODUODENOSCOPY (EGD), FLEXIBLE, TRANSORAL, DIAGNOSTIC performed by Todd Wagoner MD at [facility]OSCOPY [facility] EGD, FLEXIBLE, DIAGNOSTIC 10/25/2021 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 / [facility] HOSPITAL LIGATE/CUT OVIDUCT(S) 03/31/1978 Tubal Ligation PUNCTURE DRAINAGE BREAST CYST 12/29/1989 benign fibrocystic tissue REMOVE CATARACT, INSERT LENS PROSTH Right 02/01/2020 RIGHT EXTRACAPSULAR CATARACT REMOVAL WITH INTRAOCULAR LENS performed by Jossue Mancera MD at OR [facility] REMOVE CATARACT, INSERT LENS PROSTH Left 02/10/2020 LEFT EXTRACAPSULAR CATARACT REMOVAL WITH INTRAOCULAR LENS performed by Jossue Mancera MD at OR [facility] Subjective: Pt awake in bed with nursing bedside. Pt agreeable to bedrest only due to nausea. Social History/Disposition Lives with: Spouse (02/03/23929) Assistance available: Yes (02/03/23929) Dwelling type: Single story home (02/03/23929) Entry steps: None (02/03/23929) Inside steps: None (02/03/23929) Bedroom location: 1st floor (02/03/23929) Bath location: 1st floor full bath (02/03/23929) Prior Level of Function Reported by: Patient (02/03/23928) Ambulation: Ambulatory with device (02/03/23928) Ambulatory Device: Rolling walker (02/03/23928) Devices at home: Rolling walker (02/03/23928) Observations Consciousness: Alert (02/03/23928) Orientation: Oriented times 4 (02/03/23928) Psychosocial: Patient can communicate basic needs;Patient can converse in a social setting (02/03/23928) Pain: No complaints of pain Range of Motion Range of Motion: WFL (02/03/23928) Strength Assessment Strength Assessment: Deficits noted (02/03/23928) WNL, except: LLE;RLE (02/03/23928) LLE: Hip;Knee;Ankle;3/5 (02/03/23928) RLE: Hip;Knee;Ankle;3/ (02/03/23928) Patient and or Family Goal(s): to get well and to return home Patient Education Review of Precautions: Safety;Fall (role of PT) (02/03/23928) Safety Awareness: Patient can communicate basic needs (02/03/23928) Preferred learning method: Combination (02/03/23928) Barriers to learning: Medical Status (02/03/23928) Method of Education: Verbalized to patient (02/03/23928) Topic of Education: Safety with mobility, Goals/plan of care, and Fall prevention Method of Education: Verbal discussion and explanation provided to pt: verbalized understanding andor agreement of this information Treatment Provided: Evaluation Moderate Complexity 8 minutes - 28512: Patient was cooperative and pleasant during treatment session. Moderate complexity evaluation performed and 1-2 personal factors or comorbidities were identified that will impact plan of care, including cardiac history. Patient presents with limitations in strength, which will impact plan of care. These limitations will be addressed by the goals set for this patient. Alarm Status Patient positioned in: Bed (02/03/23928) With: Bed alarm intact and functioning and call whitley in reach (02/03/23928) Treatment Status: Treatment at bedside (02/03/23928) Goals: Increase Strength of: B/L LE Assess out of bed as able/appropriate Time Frame: 7-8 visits Assessment: Pt is 77 year old female presenting with upper GI bleed. Pt seen on this date for initial evaluation, bedrest only per nursing due to nausea and medical status. During session, pt was cooperative and pleasant. Pt reports living in 1-story home (no steps to enter) with who is able to provide assistance if needed. Pt reports ambulating with rolling walker at baseline recently due to medical status. Pt demonstrated intact sensation and LE strength of 3/5 grossly throughout B LE. Following session, pt positioned in bed with alarm and call whitley in reach. Pt presents with deficits in strength and would continue to benefit from skilled PT services while inpatient at hospital [facility] established goals and address deficits, with out of bed evaluation as able/appropriate. Discharge considerations pending out of bed mobility. All needs met. Deficits requiring P.T. treatment needs: Lower extremity strength (02/03/23928) Equipment Needs: Equipment needs: (TBD) (02/03/23928) Treatment Plan: Strengthening exercises: B/L LE Assess out of bed as able/appropriate Anticipated Frequency (on eval): 1 to 3 times per week (02/03/23928) AM PAC Score with Stairs: AM-PAC assessment not scored at this time due to bedrest only. Please refer to future AM-PAC calculations of functional mobility as they become available. * Cy Braxton MD - 02/03/2023 8:25 AM ESTAssociated Order(s): GASTROENTEROLOGY CONSULT IP CONSULT - Gastroenterology [facility] [address] Name: Anel Hogue Date: 02/03/2023 Time: 8:26 AM REQUESTING SERVICE: medicine REASON FOR CONSULT: Upper GI bleed due to gastric ulcer, EGD at [facility] earlier with concern for perforated gastric ulcer HPI: Anel Hogue is a 77 year old female with a PMH of cardiac amyloidosis, a-fib on eliquis, MM who presented to [facility] 02/02 for hematemesis and hematochezia. Found to have hgb 8.9 from 11.3. S/pEGD with a large gastric ulcer with stigmata of bleeding and concern for perforation. She was transferred to ICU overnight. Currently no abd pain, n/v. HDS. Hgb stable around 9.7. one episode of melena documented overnight. XRAY pending. HISTORY: Past Medical History: Past Medical History: Diagnosis Date Diffuse cystic mastopathy s/p negative right breast bx Past Surgical History: Past Surgical History: Procedure Laterality Date COLONOSCOPY 10/29/2004 Negative- repeat in 10 years COLONOSCOPY, DIAGNOSTIC (RECTUM) 05/23/2015 diverticulosis, repeat 10 yrs DEXA SCAN/BONE MINERAL AXIAL 12/29/2001 - 1.5 and -2.01 range- repeat 2003 EGD, FLEXIBLE, DIAGNOSTIC 05/23/2015 acid reflux, lg HH/ESOPHAGOGASTRODUODENOSCOPY (EGD), FLEXIBLE, TRANSORAL, DIAGNOSTIC performed by Todd Wagoner MD at ENDOSCOPY [facility] EGD, FLEXIBLE, DIAGNOSTIC 10/25/2021 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 / INPT [facility] LIGATE/CUT OVIDUCT(S) 03/31/1978 Tubal Ligation PUNCTURE DRAINAGE BREAST CYST 12/29/1989 benign fibrocystic tissue REMOVE CATARACT, INSERT LENS PROSTH Right 02/01/2020 RIGHT EXTRACAPSULAR CATARACT REMOVAL WITH INTRAOCULAR LENS performed by Jossue Mancera MD at OR [facility] REMOVE CATARACT, INSERT LENS PROSTH Left 02/10/2020 LEFT EXTRACAPSULAR CATARACT REMOVAL WITH INTRAOCULAR LENS performed by Jossue Mancera MD at OR [facility] Social History: Social History Tobacco Use Smoking status: Former Types: Cigarettes Quit date: 03/31/1967 Years since quittin.8 Smokeless tobacco: Never Tobacco comments: quit early 20's Vaping Use Vaping Use: Never used Substance Use Topics Alcohol use: No Drug use: No Family History: Family History Problem Relation Age of Onset Hypertension Mother Cancer Mother age 90- metastatic cancer Stroke Father age 51- hemorrhagic CVA Hypertension Father Hypertension Brother Allergies: Environmental [pollen], Iron [ferrous sulfate], and Torsemide ROS: As noted in HPI. Rest negative. PHYSICAL EXAMINATION: Most Recent Vital Signs: BP: 104 mmHg/57 mmHg (02/03/23699) Pulse: 103 (02/03/23699) Temp: 36.22 C (02/03/23 0400) Resp: 29 (02/03/23699) SpO2: 92 % (02/03/23699) Vital Signs Last 24 Hours: Systolic BP: Most Recent Systolic BP Av.7 mmHg Min: 85 mmHg Max: 127 mmHg Temperature: Most Recent Temperature Av.6 C Min: 36.22 C Max: 36.78 C Pulse: Pulse Av.5 Min: 60 Max: 107 Respirations: Resp Av.2 Min: 17 Max: 31 SpO2: SpO2 Av.3 % Min: 89 % Max: 98 % Constitutional: NAD. A&Ox3. HEENT: NC/AT. No oral lesions. Eyes: PERRLA. Neck: Supple, normal range of motion. CV: RRR. Normal S1/S2. No murmur, gallops, or rubs. Chest: CTA bilat. No wheezing, rhonchi, or crackles. Abdomen: Soft, NT/ND. BSx4. No appreciable ascites. Extremities: No edema. Radial pulses +2. Skin: Warm and dry, no rashes. Neuro: Moves all extremities. LABS: Latest Reference Range & Units 01/10/22 13:52 07/22/22 10:11 02/02/23 23:43 02/03/23 03:51 WBC 4.00 - 10.80 K/uL 6.43 4.85 8.36 13.06 (H) HGB 12.0 - 15.3 g/dL 14.2 14.3 9.3 (L) 9.7 (L) HCT 36.0 - 45.2 % 43.4 46.2 (H) 30.1 (L) 31.2 (L) MCV 81.5 - 97.5 fL 100.9 88.8 94.1 94.3 PLT 140 - 400 K/uL 176 142 125 (L) 141 (H): Data is abnormally high (L): Data is abnormally low IMAGING: Xray: IMPRESSION 1. No evidence of pneumoperitoneum. Recommend a CT if there is continued clinical concern. 2. Increased bilateral opacities, likely a combination of edema and atelectasis. Cannot exclude infiltrate in the left midlung or bases. 3. Moderate left and small right pleural effusions. ASSESSMENT: Anel Hogue is a 77 year old female with a PMH of cardiac amyloidosis, a-fib on eliquis, MM who presented to [facility] 02/02 for hematemesis and hematochezia. Found to have hgb 8.9 from 11.3. S/p EGD with a large gastric ulcer with stigmata of bleeding and concern for perforation. She was transferred to ICU overnight. Currently no abd pain, n/v. HDS. Hgb stable around 9.7. One episode of melena documented overnight. XRAY with no perforation. RECOMMENDATIONS: - keep NPO - EGD today to re-evaluate gastric ulcer - IV PPI BID I have discussed the case with my attending, Dr. Daniels. Cy Braxton MD PGY-5 Gastroenterology and Hepatology Associated attestation - Jose Daniels DO - 02/03/2023 2:55 PM EST I saw and evaluated the patient today. I have reviewed the trainee note and agree. documented in this encounter Nursing Notes * Char Jesus RN - 02/08/2023 2:46 PM EST NURSING AMBULATION OXYGEN TEST [facility] [address] Name: Anel Hogue Location: [facility] H652/A Date: 02/08/2023 Time: 2:46 PM Date of test: 02/08/2023 (needs to be completed within 48 hours of discharge) O2 saturation on room air at rest: 89 % O2 saturation at rest is less than or equal to 88 %: no O2 saturation on room air during ambulation: 86 % O2 saturation during ambulation is less than or equal to 88 %: yes; O2 was applied at 2 liters nasal cannula to improve saturations to 92 % while ambulating * Shawna Toth RN - 02/07/2023 12:30 AM EST Dual Licensed Skin Assessment completed by Shawna Silver and Lesley Angel. The patient is/has a N/A Skin Breakdown (includes non blanchable erythema): No Skin tear , edema R hand. Scattered ecchymosis b/l arms. * Richie Parker RN - 02/07/2023 12:00 AM EST Patient transferred to [place] [address] with assistance from KATHY Velasco. Patient was transferred on tele. No complications were noted. All patient belongings were accounted for. * Susie Cordero RN - 02/06/2023 2:[address] Rangel in to speak with patient. Pt withO2 at 2L/min with pulse ox now 96% * Susie Cordero RN - 02/06/2023 2:26 PM EST Pt coughing up phlegm. Denies any shortness of breath but spo2 dropping to 86 when asleep. Will apply nasal cannula and let nurse know when they come to transport pt back to floor E * Susie Cordero RN - 02/06/2023 2:12 PM EST DISCHARGE PROGRESS NOTE - ENDOSCOPY [address] [address] Name: Anel Hogue Location: [facility] HFAM/Endo Date: 02/06/2023 Time: 2:12 PM Patient is discharged under the care of : [facility] staff Report called to Inpatient unit [facility] Means of transportation: bed Bronchoscopy: N/A Oxygen support: N/A * Susie Cordero RN - 02/06/2023 1:58 PM EST Pt arousable, denies pain. Remains drowsy. Per verbal order, the physician has examined the patient, prescribed and verified the charted medication, and certified that she is recovered and may return to the nursing gonzales. Seen by anesthesia, may be discharged back to nursing floor. Report called to [facility] and staff to transport patient back to floor. * Pauline Isbell RN - 02/06/2023 1:17 PM EST Procedure being completed under general anesthesia. Please see anesthesia record for medications and vital signs. Specimen(s) and location(s) verified with physician post procedure 1:17 PM Pauline Isbell RN * Radha Ramos RN - 02/03/2023 2:24 PM EST SDISCHARGE PROGRESS NOTE - ENDOSCOPY [address] [address] Name: Anel Hogue Location: [facility] HFAM/Endo Date: 02/03/2023 Time: 2:24 PM Patient is discharged under the care of : Paige [facility] nurse Report called to Inpatient unit [facility] Means of transportation: bed Bronchoscopy: N/A Oxygen support: Yes - Patient placed back on portable O2 tank at 2 liter prior to Patient Transports arrival. Oxygen tank checked for appropriate level of oxygen storage. Per verbal order, the physician has examined the patient, prescribed and verified the charted medication, and certified that sheis recovered and may return to the nursing gonzales. * Mell Pryor RN - 02/03/2023 1:27 PM EST Specimen(s) and location(s) verified with physician post procedure 1:28 PM Mell Pryor RN * Mell Pryor RN - 02/03/2023 11:38 AM EST Procedure being completed under general anesthesia. Please see anesthesia record for medications and vital signs. * Papa Dickerson RN - 02/03/2023 11:17 AM EST Patient does not meet criteria for testing. * Michelle Vallejo RN - 02/02/2023 11:23 PM EST Dual Licensed Skin Assessment completed by Michelle Silver RN and Brandi Reynoso RN. Skin Breakdown (includes non blanchable erythema): No, pt has no areas of skin breakdown, left heelwas red but blanchable. Heels prop up with pillows under legs, Q2 turn and repo provided, low air loss bed, pillows under arms documented in this encounter Miscellaneous Notes * Ancillary Progress Note - Sailaja Lamb RN - 02/08/2023 3:56 PM EST ADULT CARE MANAGEMENT - DISCHARGE NOTE [facility] [address] Name: Anel Hogue Location: [facility] H652/A Date: 02/08/2023 Time: 3:56 PM The following coordination of care and discharge plan has been coordinated with the care team, patient, family and/or caregiver according to the patients needs and preferences. Discharge Discharge Insurance considerations verified and completed: Yes (02/08/231554) Second Notice Important Message from Medicare delivered: Yes (02/08/231554) Date Delivered: 02/06/23 (02/08/231554) Retain copy in EHR: Yes (02/08/231554) Was Caregiver/Family/Facility contacted regarding discharge: Yes (02/08/231554) Discharge Transportation: Family/Friends drive (02/08/231554) Date of scheduled discharge transportation: 02/08/23 (02/08/231554) Patient declined post-hospital transition of care recommendation: N/A (02/08/231554) Final D/C Plan - Complete at time of D/C Final Discharge Plan (Complete only at time of Discharge): Home - Self Care (02/08/231554) Durable Medical Equipment - Admitted Since 02/02/2023 Service Provider Selected Services Address Phone Fax Patient Preferred Last Updated [employer] Durable Medical Equipment [address] [facility] [address] -- Sailaja Lamb RN 02/08/2023 1424 Narrative: As per service, patient medically stable to discharge. Patient to discharge to home. Patient's spouse to provide transport. Patient requiring new O2 at discharge. Patient prefers tydy. [place] opened with [employer]. Paperwork faxed. O2 tank delivered to patient at bedside. No other CM needs were identified. Patient instructed to reach out to CM with any questions or concerns. * Care Plan - Nestor Hernandez RN - 02/08/2023 5:06 AM EST Clinical Goal(s): pt will remain free from falls during my shift (02/07/230) Possible barriers to meeting goal(s)/advancing plan of care: weakness Stability of the patient: Moderately unstable - medium risk of patient condition declining or worsening Summary regarding today's goal(s): Met: pt did not fall during my shift Recommendations: continue fall precautions * Ancillary Progress Note - Sailaja Lamb RN - 02/07/2023 11:39 AM EST CARE MANAGEMENT - ADULT TRANSITION NOTE [facility] [address] Name: Anel Hogue Location: [facility] H652/A Date: 02/07/2023 Time: 11:39 AM Risk Stratification Risk Stratification Readmission Risk Score: 11 (02/07/231138) AM-PAC Score With Stairs : 12 (02/06/231999) Caregiver Information Patient Contacts Name Relation Home Work Mobile Todd Hogue Spouse [phone] Ruth Lam Adult Child [phone] Transition of Care Checklist Transition of Care Checklist (aka Readmission Risk Score) Readmission Risk Score: 11 (02/07/231138) Discharge Disposition: Home (02/07/231138) Outpatient [facility]: No, not applicable (02/07/231138) Narrative: Patient discussed at IDT rounds, and per chart review, patient not medically stable for discharge. Remains on 2L O2 via [place]. Medicine service to consult hematology. Anticipating weekend discharge. CM will continue to follow. Anticipated Transportation at Discharge: family Patient/Family Expectations: return home Transition Planning Transition Planning Transition Plan/Considerations: Discussed at Interdisciplinary Team / Boost Rounds (02/07/231138) Repisodic Choice provided to patient: No (02/07/231138) Transition plan discussed with - Enter name and phone #: with service at IDT rounds (02/07/231138) Insurance Considerations: N/A (02/07/231138) High cost medication needs/High risk medications: No (02/07/231138) Referral to Community Agency : N/A (02/07/231138) Additional Considerations: Care Management will continue to monitor and assist with discharge planning needs * Result Encounter Note - Regan Rangel MD - 02/07/2023 9:59 AM EST Inpatient team notified * Communication - Regan Rangel MD - 02/06/2023 1:23 PM EST Brief GI Communication S/P EGD 02/06/23 - Normal esophagus. - Non-bleeding gastric ulcer with a clean ulcer base (Dionisio Class III). Biopsied. - Plastic biliary stent in the duodenum. Recommendations - ok for diet as tolerated - f/u path - switch IV PPI to PO omeprazole 40 mg BID to complete 8 weeks of therapy then omeprazole 40 mg once daily - continue sucralfate 1 g QID until EGD - recommend bowel regimen with sucralfate - Repeat EGD on 03/[address] Stuart to check for healing (already schedule for EUS-GB drainage) - Thank you for the consult. GI will sign off. Please TT if needed. * Result Encounter Note - Baljeet Angulo DO - 02/06/2023 9:15 AM EST Forwarded to inpatient consults team for pt notification * Progress Notes - Non-Billable - Mina Vásquez, Medical Student - 02/06/2023 6:57 AM EST Images from the original note were not included. CCM - PROGRESS NOTE [facility] [address] Name: Anel Hogue Location: [facility] A546/A Date: 02/06/2023 Unless the attending has added an attestation supporting use of this note to document a billable service, the signature of the Licensed Professional on this note only acknowledges the presence of thestudent's note within the patient record and the Licensed Professional's note should be referred tofor clinical information and recommendations. Date of admission: 02/02/2023 Hospital length of stay: 4 days PATIENT DESCRIPTION: The patient is a 77 year old female with PMHx signficant for Cardiac amyloidosis, Tachy-igor syndrome s/p recent PM, Atrial fibrillation on Eliquis, HFpEF, Chronic hypotension on Midodrine, PUD withprior GIB, Hypothyroidism, Multiple myeloma. Recent hospitalization on 01/30/23 for heart failure and was started on eliqius during this admission. Presented to the ED at outside hospital on 02/02 due to hematemesis and has large volume hematemasis and hematochezia upon arrival to the ED. She was hypotensive and was givenand was given 2 U PRBC, 2 U FFP. Eliquis reversed with Kcentra. While in the ED Hgb dropped from 11.3 to 8.9. EGD showed a large gastric ulcer with stigmata of recent bleeding and concern for perforation. Subsequent CT abdomen and pelvis was performed and showed no evidence of perforation. Decision was made to transfer her here for GI evaluation, possibly IR and surgery evaluation pending clinical course. Subjective EVENTS OF NOTE: 02/02: ED [facility] for hematemesis/hematochezia 02/02: ERCP with the following findings: - Hematin (altered blood/vowoqt-qlhxhr-zgbb material) was found in the lower third of the esophagus. Findings: - Clotted blood was found in the entire examined stomach. - One non-obstructing cratered gastric ulcer was found in the gastric antrum. The ulcer crater is suspicious for perforation 02/02: transfer to [facility] 02/03: repeat EGD with the following findings: - Normal esophagus. - An endoclip was found in the stomach. - Clotted blood in the greater curvature of the stomach. - Non-obstructing gastric ulcer with oozing hemorrhage (Dionisio Class Ib). Hemostatic spray applied. Biopsied. - Normal examined duodenum. INTERIM HISTORY / SUBJECTIVE: Overnight: This morning, patient evaluated at bedside. Burning abdominal pain but no nausea vomiting or diarrhea. Some SOB with movement but denies chest pain. Otherwise no concerns this morning. Objective CONSTITUTIONAL DATA / OBJECTIVE: Vital Signs (Most Recent): Pulse: 61 (02/06/23699) BP: 143/76 (02/06/23699) Resp: 25 (02/06/23699) Temp: 36.7 C (98.1 F) (02/06/23799) SpO2: 94 % (02/06/23699) Vital Signs (Last 24 Hours): Pulse Av.7 Min: 59 Max: 76 No data recorded Most Recent Systolic BP Av.8 mmHg Min: 87 mmHg Max: 143 mmHg Most Recent Diastolic BP Av.7 mmHg Min: 50 mmHg Max: 104 mmHg Resp Av.3 Min: 14 Max: 35 Most Recent Temperature Av.1 C Min: 35.5 C Max: 36.78 C SpO2 Av.2 % Min: 88 % Max: 98 % Ventilatory Support: On room air Ventilator Settings: Intake & Output Summary (Last 24 hours): Intake/Output Summary (Last 24 hours) at 02/06/2023 08 Last data filed at 02/06/2023 06 Gross per 24 hour Intake 1222 ml Output 575 ml Net 647 ml Net IO Since Admission: -505.83 mL [02/03/23715] Urine: 30mL/hr Height & Weight: Height: 157.5 cm (5' 2") (02/02/232229) Weight: 63.4 kg (139 lb 12.4 oz) (02/06/23799) Weight change: 0.9 kg (1 lb 15.7 oz) Body mass index is 25.56 kg/m. Physical Examination: General: Patient in no apparent distress HEENT: normocephalic, atraumatic Heart: regular rate and rhythm; S1 and S2 present; no murmurs, rubs or gallops. Pulmonary: decreased breath sounds at the bases bilaterally with some faint crackles on the left. Abdomen: Soft, non-tender, distended. Normal bowel sounds and no rebound or guarding. MSK: Patient able to ambulate; Gross motor function intact Extremities: No pitting edema present at lower extremity bilaterally Skin: [place], warm, no wounds or lesions present. Neuro: AAOx3. No gross motor or sensory deficits. Psych: Appropriate mood and affect Urethral Catheter Regular catheter (Active) Number of days: 3 Peripheral Line Left;Upper Arm 22 Gauge (Active) Number of days: 1 Peripheral Line Right;Lower Arm 22 Gauge (Active) Number of days: 1 Laboratory Values: reviewed. -- Brief labs below include the 7 most recent results over the past week. Blood Gas: No results in the last 7 days - inpatent use only Chemistry Panel: Lab results within last 7 days (see chart for full results) Units 02/06/23 0633 02/05/238 02/05/23 1529 02/05/23 0611 02/04/23 0504 02/03/23 0351 02/02/23 2343 Sodium mmol/L 137 137 138 139 145 141 140 Potassium mmol/L 4.0 4.5 3.2* 3.4* 4.2 4.1 4.2 Chloride mmol/L 104 104 103 105 110* 108* 106 CO2 mmol/L 23 24 28 27 27 24 25 BUN mg/dL 20 21* 23* 27* 32* 27* 23* Creatinine mg/dL 0.7 0.7 0.7 0.8 0.8 0.7 0.7 Estimated Glomerular Filtration Rate mL/min >90 >90 90 80 77 >90 87 Glucose mg/dL 114 112 146* 94 124* 112 113 Calcium mg/dL 8.4 8.2* 8.3* 8.5 8.6 8.4 8.3* Magnesium mg/dL 2.4 -- -- 2.3 2.3 1.9 2.0 Phosphorus mg/dL 2.9 3.7 2.3* 2.3* 3.4 3.7 3.8 Anion Gap mmol/L 10 9 7 7 8 9 9 Complete Blood Count: Lab results within last 7 days (see chart for full results) Units 02/06/23 0633 02/05/23 2208 02/05/23 0611 02/04/23 1946 02/04/23 0504 02/03/23 1607 02/03/23 0351 WBC K/uL 9.32 7.45 8.78 10.45 8.08 14.06* 13.06* HGB g/dL 9.9* 9.5* 9.1* 9.0* 8.9* 9.8* 9.7* HCT % 32.9* 31.0* 30.3* 30.3* 29.2* 29.7* 31.2* PLT K/uL 218 184 178 160 111* 125* 141 MCV fL 98.2 96.9 98.1 98.1 96.7 89.7 94.3 Cardiac Studies: Lab results within last 7 days (see chart for full results) Units 02/03/23 0351 02/02/23 2343 Troponin T, High Sensitivity ng/L 112* 116* BNP, NT-Pro pg/mL -- 6,933* Coagulation Studies: Lab results within last 7 days (see chart for full results) Units 02/06/23 0633 02/02/23 2343 Prothrombin Time seconds 15.1 16.5* INR 1.2 1.3* aPTT seconds -- 29 Liver Function Panel: Lab results within last 7 days (see chart for full results) Units 02/05/23 2208 02/05/23 1529 02/02/23 2343 Albumin g/dL 3.1* 3.1* 2.9* Protein g/dL -- -- 6.4 Bilirubin, Total mg/dL -- -- 0.6 Bilirubin, Direct mg/dL -- -- 0.3 AST U/L -- -- 33 ALT U/L -- -- 18 Alkaline Phosphatase U/L -- -- 74 !: Data is abnormal Infectious Studies: Lab results within last 7 days (see chart for full results) Units 02/02/23 2343 Lactate, Whole Blood mmol/L 1.8 Cultures: reviewed. Urine culture no significant growth Recent Cultures (2 Weeks) 02/03/2023 01/24/2022 11/07/2020 08/22/2020 03/01/2020 10/22/2019 05/01/2015 08/18/2007 2:38 AM 3:00 PM 9:18 AM 9:49 AM 11:46 AM 12:15 PM 11:38 AM 9:30 AM SPECIMEN DESCRIPTION -- -- -- -- CLEAN CATCH URINE CLEAN CATCH URINE URINE CLEAN CATCH URINE CULTURE -- -- -- -- LESS THAN 10,000 COLONIES/ML MIXED NORMAL KOJO LESS THAN 10,000 COLONIES/ML MIXED NORMAL KOJO LESS THAN 10,000 COLONIES/ML MIXED KOJO >100,000 COLONIES/ML ESCHERICHIA COLI THIS GRAM NEGATIVE BACILLI DISPLAYS IN ... LESS THAN 10,000 COLONIES/ML ONE OTHER SPECIES QUANT URINE CULTURE GROWTH No significant growth No significant growth >100,000 colonies/mL Escherichia coli 10,000 to 100,000 colonies/mL Escherichia coli -- -- -- -- Surgical pathology from stomach A. Stomach, gastric mass, biopsy: Consistent with fundic gland polyp Ulcer debris with crush artifact EKG Ventricular-paced rhythm in a pattern of bigeminy Abnormal ECG When compared with ECG of 27-APR-2021 11:55, Electronic pacemaker detected has replaced Junctional rhythm Radiographic Studies: reviewed. XR CHEST 1 VIEW Result Date: 02/06/2023 IMPRESSION: This impression is a preliminary interpretation by the resident and is subject to changes following review by an attending radiologist. Be sure to review a final report to be signed by a staff radiologist for any discrepancies with this preliminary interpretation. Stable bilateral pleural effusions, greater on the left with accompanying compressive atelectasis. XR CHEST 1 VIEW Result Date: 02/03/2023 IMPRESSION 1. No evidence of pneumoperitoneum. Recommend a CT if there is continued clinical concern. 2. Increased bilateral opacities, likely a combination of edema and atelectasis. Cannot exclude infiltrate in the left midlung or bases. 3. Moderate left and small right pleural effusions. XR ABDOMEN 1 VIEW Result Date: 02/03/2023 IMPRESSION 1. No evidence of pneumoperitoneum. Recommend a CT if there is continued clinical concern. 2. Increased bilateral opacities, likely a combination of edema and atelectasis. Cannot exclude infiltrate in the left midlung or bases. 3. Moderate left and small right pleural effusions. Assessment & Plan Principal Problem: Upper GI bleed (POA: Yes) Active Problems: Acute blood loss anemia (POA: Yes) Hemorrhagic shock (HCC) (POA: Yes) POA = Present On Admission 77 year old female with acute hemorrhagic shock 2/2 upper GI bleed from gastric ulcer. NEUROLOGICAL: No Acute Issues PULMONARY / RESPIRATORY: Acute hypoxic respiratory failure 2/2 pulmonary edema from fluid resuscitation (resolved) Oxygenating 91-94 with crackles at the left base CXR with bilateral pleural effusions. Given lasix 60 x1 CARDIOVASCULAR: Hemorrhagic shock (resolved) Hx of Cardiac amyloidosis, Tachy-igor syndrome s/p recent PM, Atrial fibrillation on Eliquis, HFpEF, Chronic hypotension on Midodrine Patient has received 2 U FFP, 2 U PRBC at OSH Trend CBC q6h Lactate WNL Continue resuscitation favoring blood products, goal hgb > 7 MAP goal > 65 Continue CATALOGING ASSISTANT amiodarone Continue CATALOGING ASSISTANT midodrine Hold CATALOGING ASSISTANT aspirin, Eliquis, Restart home diuretic regimen post EDG if no signs of active bleeding Tropenemia (peaked) likely demand in nature GASTROINTESTINAL / HEPATOBILIARY: Upper GI Bleed Gastric Ulcer Hx PUD GI consulted, appreciate recs Carafate 1000mg Last Bowel Movement: 02/05/23 (02/05/23 1000) Stool Description: Medium;Loose;Liquid;Brown;Black (02/05/23 1000) Stress Ulcer Prophylaxis: Proton Pump Inhibitor.. Protonix 80mg Diet / Nutrition: clear liquid Plan for EGD today RENAL / METABOLIC / FLUIDS: No Acute issues Trend BMP daily INFECTIOUS DISEASES: Recent UTI Completed course of CTX Urine culture no growth. U/A not concerning for infection ENDOCRINE: Hypothyroidism CATALOGING ASSISTANT levothyroxine Blood Glucose Monitoring (BGM) Goal: 140-180 HEMATOLOGIC: Acute Anemia 2/2 GI bleed Hx multiple myeloma Resume CATALOGING ASSISTANT acyclovir PPx VTE/DVT Prophylaxis: pneumatic compression devices alone due to chemoprophylaxis contraindication MUSCULOSKELETAL/ P.T / O.T. / MOBILITY: No Acute Issues PT/OT DERMATOLOGIC / WOUND CARE: No Acute Issues Wound care PRN LINES / DRAINS / TUBES: LINES ALL Duration Urethral Catheter Regular catheter 3 days Peripheral Line Left;Upper Arm 22 Gauge <1 day Peripheral Line Right;Lower Arm 22 Gauge <1 day List of services consulted/following: ADULT PHYSICAL THERAPY CONSULT IP ADULT OCCUPATIONAL THERAPY CONSULT IP GASTROENTEROLOGY CONSULT IP GLOBAL ISSUES: Code Status: Full Code Analgesia: no pain Sedation: N/A Delirium/Confusion Assessment Method for ICU (CAM-ICU): CAM-ICU negative HOB Elevation: greater than 30 degrees Nutrition: NPO DVT Prophylaxis: pneumatic compression devices alone due to chemoprophylaxis contraindication Stress Ulcer Prophylaxis: PPI therapy for other indication Glycemic Control: controlled - not in protocol Oral hygiene every four hours Chlorhexidine mouth rinse every twelve hours Central Line Necessity Reviewed: N/A Huerta: reviewed and needed Disposition: keep in ICU :[id number]} Patient's decisional capacity: has capacity to make decisions Communication with Patient/Family: No meeting held. Goals of Care: improve respiratory status and stabilize hemodynamic status Patient was discussed with attending physician, DO Mina Hyman, Medical Student This chart was completed in part utilizing [employer] Speech Voice Recognition Software. Grammatical errors, random word insertions, pronoun errors, and incomplete sentences are an occasional consequence of this system due to software limitations, ambient noise, and hardware issues. Any formal questions or concerns about the content, text, or information contained within the body of this dictation should be directly addressed to the provider for clarification. * Diagnostic Clarification - Shreyas Lerma DO - 02/05/2023 3:38 PM EST The patient has been diagnosed with demand ischemia without an acute UT. The patient has been diagnosed with acute pulmonary edema due to heart failure. Acute heart failurewith preserved ejection fraction secondary to volume from resuscitation and blood products * Ancillary Progress Note - Flora Leal RN - 02/05/2023 9:14 AM EST CARE MANAGEMENT - ADULT TRANSITION [place] [facility] [address] Name: Anel Hogue [place] [facility] [id number] Date: 02/05/2023 Time: 9:14 AM Risk Stratification Risk Stratification Readmission Risk Score: 13.63 (02/05/23799) AM-PAC Score With Stairs : 15 (02/04/231999) Caregiver Information Patient Contacts Name Relation Home Work Mobile Todd Hogue Spouse [phone] LamRuth cook Adult Child [phone] Transition of Care Checklist Transition of Care Checklist (aka Readmission Risk Score) Readmission Risk Score: 13.63 (02/05/23799) Narrative: Chart reviewed, pt discussed in IDT rounds, not medically ready for discharge. Hemoglobin stable. Possible repeat endoscopy tomorrow. Met with patient at bedside to discuss discharge planning. Pt declining home health at this time. Discussed pt with PT/OT team who states pt was not very motivated to work with them. They will attempt to work with patient again at later time. CM will continue to follow for developing needs. Anticipated Transportation at Discharge: family Patient/Family Expectations: home Transition Planning Additional Considerations: none Care Management will continue to monitor and assist with discharge planning needs * Communication - Carlee Johnston MD - 02/04/2023 2:30 PM EST Family was updated at bedside. All questions addressed. * Ancillary Progress Note - Inez Dimas, PT - 02/04/2023 8:41 AM EST Attempted to see pt for out of bed assessment today however per IDT rounds pt not medically stable for same. Will attempt at a later time when pt is medically appropriate. * Progress Notes - Non-Billable - Mina Vásquez, Medical Student - 02/04/2023 6:39 AM EST Images from the original note were not included. CCM - PROGRESS NOTE [facility] [address] Name: Anel Hogue Location: [facility] [place] [id number] Date: 02/04/2023 Unless the attending has added an attestation supporting use of this note to document a billable service, the signature of the Licensed Professional on this note only acknowledges the presence of thestudent's note within the patient record and the Licensed Professional's note should be referred tofor clinical information and recommendations. Date of admission: 02/02/2023 Hospital length of stay: 2 days PATIENT DESCRIPTION: The patient is a 77 year old female with PMHx signficant for Cardiac amyloidosis, Tachy-igor syndrome s/p recent PM, Atrial fibrillation on Eliquis, HFpEF, Chronic hypotension on Midodrine, PUD withprior GIB, Hypothyroidism, Multiple myeloma. Recent hospitalization on 01/30/23 for heart failure and was started on eliqius during this admission. Presented to the ED at outside hospital on 02/02 due to hematemesis and has large volume hematemasis and hematochezia upon arrival to the ED. She was hypotensive and was givenand was given 2 U PRBC, 2 U FFP. Eliquis reversed with Kcentra. While in the ED Hgb dropped from 11.3 to 8.9. EGD showed a large gastric ulcer with stigmata of recent bleeding and concern for perforation. Subsequent CT abdomen and pelvis was performed and showed no evidence of perforation. Decision was made to transfer her here for GI evaluation, possibly IR and surgery evaluation pending clinical course. Subjective EVENTS OF NOTE: 02/02: ED [facility] for hematemesis/hematochezia 02/02: ERCP with the following findings: - Hematin (altered blood/rfnphb-mcuuig-crpe material) was found in the lower third of the esophagus. Findings: - Clotted blood was found in the entire examined stomach. - One non-obstructing cratered gastric ulcer was found in the gastric antrum. The ulcer crater is suspicious for perforation 02/02: transfer to [facility] [place]03: repeat EGD with the following findings: - Normal esophagus. - An endoclip was found in the stomach. - Clotted blood in the greater curvature of the stomach. - Non-obstructing gastric ulcer with oozing hemorrhage (Dionisio Class Ib). Hemostatic spray applied. Biopsied. - Normal examined duodenum. INTERIM HISTORY / SUBJECTIVE: Overnight: Large bloody liquid stool overnight. This morning, patient evaluated at bedside. Patient feels well this morning. She is tired but otherwise well. She had some burning abdominal pain in her stomach but denies any nausea or vomiting. Hashad some chills but denies any fevers. Denies SOB or chest pain. On room air this morning. Objective CONSTITUTIONAL DATA / OBJECTIVE: Vital Signs (Most Recent): Pulse: 61 (02/04/23599) BP: 113/65 (02/04/23599) Resp: 20 (02/04/23599) Temp: 37.1 C (98.8 F) (02/04/23599) SpO2: 94 % (11/07/23 0600) Vital Signs (Last 24 Hours): Pulse Av Min: 60 Max: 103 No data recorded Most Recent Systolic BP Av.1 mmHg Min: 86 mmHg Max: 132 mmHg Most Recent Diastolic BP Av.8 mmHg Min: 42 mmHg Max: 65 mmHg Resp Av.2 Min: 16 Max: 29 Most Recent Temperature Av.1 C Min: 36.39 C Max: 37.72 C SpO2 Av.1 % Min: 89 % Max: 100 % Ventilatory Support: On room air Ventilator Settings: Intake & Output Summary (Last 24 hours): Intake/Output Summary (Last 24 hours) at 02/04/2023641 Last data filed at 02/04/2023599 Gross per 24 hour Intake 1300 ml Output 1805 ml Net -505 ml Net IO Since Admission: -505.83 mL [02/03/23 0716] Height & Weight: Height: 157.5 cm (5' 2") (02/02/23 2230) Weight: 63.5 kg (139 lb 15.9 oz) (02/03/23 0800) Weight change: 0.3 kg (10.6 oz) Body mass index is 25.6 kg/m. Physical Examination: General: Patient in no apparent distress HEENT: normocephalic, atraumatic Heart: regular rate and rhythm; S1 and S2 present; no murmurs, rubs or gallops. Pulmonary: Lungs clear to auscultation bilaterally; no wheezes, rhonchi or crackles. Increased WOB Abdomen: Soft, non-tender, distended. Normal bowel sounds and no rebound or guarding. MSK: Patient able to ambulate; Gross motor function intact Extremities: No pitting edema present at lower extremity bilaterally Skin: [place], warm, no wounds or lesions present. Neuro: AAOx3. No gross motor or sensory deficits. Psych: Appropriate mood and affect Urethral Catheter Regular catheter (Active) Number of days: 1 Peripheral Line Left;Lower 18 Gauge (Active) Number of days: 2 Peripheral Line Anterior;Right Hand 20 Gauge (Active) Number of days: 2 Laboratory Values: reviewed. -- Brief labs below include the 7 most recent results over the past week. Blood Gas: No results in the last 7 days - inpatent use only Chemistry Panel: Lab results within last 7 days (see chart for full results) Units 02/04/23 0504 02/03/23 0351 02/02/23 2343 Sodium mmol/L 145 141 140 Potassium mmol/L 4.2 4.1 4.2 Chloride mmol/L 110* 108* 106 CO2 mmol/L 27 24 25 BUN mg/dL 32* 27* 23* Creatinine mg/dL 0.8 0.7 0.7 Estimated Glomerular Filtration Rate mL/min 77 >90 87 Glucose mg/dL 124* 112 113 Calcium mg/dL 8.6 8.4 8.3* Magnesium mg/dL 2.3 1.9 2.0 Phosphorus mg/dL 3.4 3.7 3.8 Anion Gap mmol/L 8 9 9 Complete Blood Count: Lab results within last 7 days (see chart for full results) Units 02/04/23 0504 02/03/23 1607 02/03/23 0351 02/02/23 2343 WBC K/uL 8.08 14.06* 13.06* 8.36 HGB g/dL 8.9* 9.8* 9.7* 9.3* HCT % 29.2* 29.7* 31.2* 30.1* PLT K/uL 111* 125* 141 125* MCV fL 96.7 89.7 94.3 94.1 Cardiac Studies: Lab results within last 7 days (see chart for full results) Units 02/03/23 0351 02/02/23 2343 Troponin T, High Sensitivity ng/L 112* 116* BNP, NT-Pro pg/mL -- 6,933* Coagulation Studies: Lab results within last 7 days (see chart for full results) Units 02/02/23 2343 Prothrombin Time seconds 16.5* INR 1.3* aPTT seconds 29 Liver Function Panel: Lab results within last 7 days (see chart for full results) Units 02/02/23 2343 Albumin g/dL 2.9* Protein g/dL 6.4 Bilirubin, Total mg/dL 0.6 Bilirubin, Direct mg/dL 0.3 AST U/L 33 ALT U/L 18 Alkaline Phosphatase U/L 74 !: Data is abnormal Infectious Studies: Lab results within last 7 days (see chart for full results) Units 02/02/23 2343 Lactate, Whole Blood mmol/L 1.8 Cultures: reviewed. Urine culture no significant growth Recent Cultures (2 Weeks) 01/24/2022 11/07/2020 08/22/2020 03/01/2020 10/22/2019 05/01/2015 08/18/2007 01/26/2007 3:00 PM 9:18 AM 9:49 AM 11:46 AM 12:15 PM 11:38 AM 9:30 AM 9:31 AM SPECIMEN DESCRIPTION -- -- -- CLEAN CATCH URINE CLEAN CATCH URINE URINE CLEAN CATCH URINE CLEAN CATCH URINE CULTURE -- -- -- LESS THAN 10,000 COLONIES/ML MIXED NORMAL KOJO LESS THAN 10,000 COLONIES/ML MIXEDNORMAL KOJO LESS THAN 10,000 COLONIES/ML MIXED KOJO >100,000 COLONIES/ML ESCHERICHIA COLI THISGRAM NEGATIVE BACILLI DISPLAYS IN ... LESS THAN 1,000 COLONIES/ML (NO GROWTH) LESS THAN 10,000 COLONIES/ML ONE OTHER SPECIES QUANT URINE CULTURE GROWTH No significant growth >100,000 colonies/mL Escherichia coli 10,000 to100,000 colonies/mL Escherichia coli -- -- -- -- -- Surgical pathology from stomach pending. EKG Ventricular-paced rhythm in a pattern of bigeminy Abnormal ECG When compared with ECG of 27-APR-2021 11:55, Electronic pacemaker detected has replaced Junctional rhythm Radiographic Studies: reviewed. XR CHEST 1 VIEW Result Date: 02/03/2023 IMPRESSION 1. No evidence of pneumoperitoneum. Recommend a CT if there is continued clinical concern. 2. Increased bilateral opacities, likely a combination of edema and atelectasis. Cannot exclude infiltrate in the left midlung or bases. 3. Moderate left and small right pleural effusions. XR ABDOMEN 1 VIEW Result Date: 02/03/2023 IMPRESSION 1. No evidence of pneumoperitoneum. Recommend a CT if there is continued clinical concern. 2. Increased bilateral opacities, likely a combination of edema and atelectasis. Cannot exclude infiltrate in the left midlung or bases. 3. Moderate left and small right pleural effusions. Assessment & Plan Principal Problem: Upper GI bleed (POA: Yes) Active Problems: Acute blood loss anemia (POA: Yes) Hemorrhagic shock (HCC) (POA: Yes) POA = Present On Admission 77 year old female with acute hemorrhagic shock 2/2 upper GI bleed from gastric ulcer. NEUROLOGICAL: No Acute Issues PULMONARY / RESPIRATORY: Acute hypoxic respiratory failure 2/2 pulmonary edema from fluid resuscitation CXR -moderate left and small right pleural effusions. On room air Given Lasix 40mg x1 yesterday CARDIOVASCULAR: Hemorrhagic shock Hx of Cardiac amyloidosis, Tachy-igor syndrome s/p recent PM, Atrial fibrillation on Eliquis, HFpEF, Chronic hypotension on Midodrine Patient has received 2 U FFP, 2 U PRBC at OSH Trend CBC q6h Lactate WNL Continue resuscitation favoring blood products, goal hgb > 7 MAP goal > 65 Continue CATALOGING ASSISTANT amiodarone Continue CATALOGING ASSISTANT midodrine Hold CATALOGING ASSISTANT aspirin, Eliquis, and diuretic regimen Tropenemia (peaked) likely demand in nature. GASTROINTESTINAL / HEPATOBILIARY: Upper GI Bleed Gastric Ulcer Hx PUD GI consulted, appreciate recs Carafate 1000mg Last Bowel Movement: 02/04/23 (02/04/23 06) Stool Description: Large;Blood;Liquid (maroon) (02/04/23 06) Stress Ulcer Prophylaxis: Proton Pump Inhibitor.. Protonix 80mg Diet / Nutrition: clear liquid Per GI will wait until to re-evaluate ulcer RENAL / METABOLIC / FLUIDS: No Acute issues Trend BMP daily INFECTIOUS DISEASES: Recent UTI Completed course of CTX Urine culture pending. U/A not concerning for infection ENDOCRINE: Hypothyroidism CATALOGING ASSISTANT levothyroxine Blood Glucose Monitoring (BGM) Goal: 140-180 HEMATOLOGIC: Acute Anemia 2/2 GI bleed Hx multiple myeloma Hgb down to 8.9 from 9.8 Resume CATALOGING ASSISTANT acyclovir PPx VTE/DVT Prophylaxis: pneumatic compression devices alone due to chemoprophylaxis contraindication MUSCULOSKELETAL/ P.T / O.T. / MOBILITY: No Acute Issues PT/OT DERMATOLOGIC / WOUND CARE: No Acute Issues Wound care PRN LINES / DRAINS / TUBES: LINES ALL Duration Peripheral Line Anterior;Right Hand 20 Gauge 1 day Peripheral Line Left;Lower 18 Gauge 1 day Urethral Catheter Regular catheter 1 day List of services consulted/following: ADULT PHYSICAL THERAPY CONSULT IP ADULT OCCUPATIONAL THERAPY CONSULT IP GASTROENTEROLOGY CONSULT IP GLOBAL ISSUES: Code Status: Full Code Analgesia: no pain Sedation: N/A Delirium/Confusion Assessment Method for ICU (CAM-ICU): CAM-ICU negative HOB Elevation: greater than 30 degrees Nutrition: NPO DVT Prophylaxis: pneumatic compression devices alone due to chemoprophylaxis contraindication Stress Ulcer Prophylaxis: PPI therapy for other indication Glycemic Control: controlled - not in protocol Oral hygiene every four hours Chlorhexidine mouth rinse every twelve hours Central Line Necessity Reviewed: N/A Huerta: reviewed and needed Disposition: keep in ICU :[id number]} Patient's decisional capacity: has capacity to make decisions Communication with Patient/Family: No meeting held. Goals of Care: improve respiratory status and stabilize hemodynamic status Patient was discussed with attending physician, DO Mina Hyman, Medical Student This chart was completed in part utilizing [employer] Speech Voice Recognition Software. Grammatical errors, random word insertions, pronoun errors, and incomplete sentences are an occasional consequence of this system due to software limitations, ambient noise, and hardware issues. Any formal questions or concerns about the content, text, or information contained within the body of this dictation should be directly addressed to the provider for clarification. * Ancillary Progress Note - Flora Leal RN - 02/03/2023 3:41 PM EST CARE MANAGEMENT - ADULT TRANSITION NOTE [address] [address] Name: Anel Hogue [place]: [facility] [id number] Date: 02/03/2023 Time: 3:41 PM Risk Stratification Risk Stratification Readmission Risk Score: 15.68 (02/03/23 1200) AM-PAC Score With Stairs : 15 (02/03/23 0800) Caregiver Information Patient Contacts Name Relation Home Work Mobile Todd Hogue Spouse [phone] GenaroRuth Adult Child [phone] Transition of Care Checklist Transition of Care Checklist (aka Readmission Risk Score) Readmission Risk Score: 15.68 (02/03/23 1200) Narrative: Chart reviewed, pt discussed in IDT rounds, pt not medically ready for discharge today. Endoscopy today revealed non obstructing gastric ulcer with oozing hemorrhage. Pt remains NPO, trending hemoglobin. No CM needs identified at this time. CM will continue to follow for discharge planning. Anticipated Transportation at Discharge: family Patient/Family Expectations: home Transition Planning Additional Considerations: none Care Management will continue to monitor and assist with discharge planning needs * Communication - Regan Rangel MD - 02/03/2023 3:14 PM EST Brief GI communication S/P EGD 02/03/23 - Normal esophagus. - An endoclip was found in the stomach. - Clotted blood in the greater curvature of the stomach. - Non-obstructing gastric ulcer with oozing hemorrhage (Dionisio Class Ib). Hemostatic spray applied. Biopsied. - Normal examined duodenum. Recommendations - Keep NPO - continue IV PPI BID - f/u pathology - trend hgb no more than once daily - monitor for ongoing signs of overt bleeding * Progress Notes - Non-Billable - Mina Vásquez, Medical Student - 02/03/2023 7:16 AM EST Images from the original note were not included. CCM - PROGRESS NOTE [facility] [address] Name: Anel Hogue Location: [facility] [id number] Date: 02/03/2023 Unless the attending has added an attestation supporting use of this note to document a billable service, the signature of the Licensed Professional on this note only acknowledges the presence of thestudent's note within the patient record and the Licensed Professional's note should be referred tofor clinical information and recommendations. Date of admission: 02/02/2023 Hospital length of stay: 1 days PATIENT DESCRIPTION: The patient is a 77 year old female with PMHx signficant for Cardiac amyloidosis, Tachy-igor syndrome s/p recent PM, Atrial fibrillation on Eliquis, HFpEF, Chronic hypotension on Midodrine, PUD withprior GIB, Hypothyroidism, Multiple myeloma. Recent hospitalization on 01/30/23 for heart failure and was started on eliqius during this admission. Presented to the ED at outside hospital on 02/02 due to hematemesis and has large volume hematemasis and hematochezia upon arrival to the ED. She was hypotensive and was givenand was given 2 U PRBC, 2 U FFP. Eliquis reversed with Kcentra. While in the ED Hgb dropped from 11.3 to 8.9. EGD showed a large gastric ulcer with stigmata of recent bleeding and concern for perforation. Subsequent CT abdomen and pelvis was performed and showed no evidence of perforation. Decision was made to transfer her here for GI evaluation, possibly IR and surgery evaluation pending clinical course. Subjective EVENTS OF NOTE: 02/02: ED [facility] for hematemesis/hematochezia 02/02: ERCP with the following findings: - Hematin (altered blood/uscgmz-vhhjcn-cbtb material) was found in the lower third of the esophagus. Findings: - Clotted blood was found in the entire examined stomach. - One non-obstructing cratered gastric ulcer was found in the gastric antrum. The ulcer crater is suspicious for perforation 02/02: transfer to [facility] [place]IM HISTORY / SUBJECTIVE: Overnight: This morning, patient evaluated at bedside. Patient endorses chills. Not lightheaded when laying inbed but feels as though she would if she stood up. Intermittent nausea. Endorses abdominal distension. Denies chest pain, SOB, difficulty breathing. Has come crampy abdominal pain which she attributes to gas pain. Denies burning with urination or blood in her urine. Extremely thirsty this morning. Objective CONSTITUTIONAL DATA / OBJECTIVE: Vital Signs (Most Recent): Pulse: 64 (02/03/23899) BP: 118/54 (02/03/23899) Resp: 29 (02/03/23899) Temp: 36.4 C (97.5 F) (02/03/23799) SpO2: 94 % (02/03/23899) Vital Signs (Last 24 Hours): Pulse Av.2 Min: 60 Max: 107 No data recorded Most Recent Systolic BP Av.4 mmHg Min: 85 mmHg Max: 127 mmHg Most Recent Diastolic BP Av.4 mmHg Min: 41 mmHg Max: 86 mmHg Resp Av.3 Min: 17 Max: 31 Most Recent Temperature Av.5 C Min: 36.22 C Max: 36.78 C SpO2 Av.3 % Min: 89 % Max: 98 % Ventilatory Support: NC: O2 flow rate: 2 L/MIN (02/03/23 0800) CPAP/EPAP: IPAP: Ventilator Settings: Intake & Output Summary (Last 24 hours): Intake/Output Summary (Last 24 hours) at 02/03/2023 1001 Last data filed at 02/03/2023 0900 Gross per 24 hour Intake 154.17 ml Output 650 ml Net -495.83 ml Net IO Since Admission: -505.83 mL [02/03/23 0716] Height & Weight: Height: 157.5 cm (5' 2") (02/02/23 2230) Weight: 63.5 kg (139 lb 15.9 oz) (02/03/23 08) Weight change: Body mass index is 25.6 kg/m. Physical Examination: General: Patient in no apparent distress HEENT: normocephalic, atraumatic Heart: regular rate and rhythm; S1 and S2 present; no murmurs, rubs or gallops. Pulmonary: Lungs clear to auscultation bilaterally; no wheezes, rhonchi or crackles. Increased WOB Abdomen: Soft, non-tender, distended. Normal bowel sounds and no rebound or guarding. MSK: Patient able to ambulate; Gross motor function intact Extremities: No pitting edema present at lower extremity bilaterally Skin: [place], warm, no wounds or lesions present. Neuro: AAOx3. No gross motor or sensory deficits. Psych: Appropriate mood and affect Urethral Catheter Regular catheter (Active) Number of days: 0 Peripheral Line Left 20 Gauge (Active) Number of days: 1 Peripheral Line Left;Lower 18 Gauge (Active) Number of days: 1 Peripheral Line Right Antecubital 18 Gauge (Active) Number of days: 1 Peripheral Line Anterior;Right Hand 20 Gauge (Active) Number of days: 1 Laboratory Values: reviewed. -- Brief labs below include the 7 most recent results over the past week. Blood Gas: No results in the last 7 days - inpatent use only Chemistry Panel: Lab results within last 7 days (see chart for full results) Units 02/03/23 0351 02/02/23 2343 Sodium mmol/L 141 140 Potassium mmol/L 4.1 4.2 Chloride mmol/L 108* 106 CO2 mmol/L 24 25 BUN mg/dL 27* 23* Creatinine mg/dL 0.7 0.7 Estimated Glomerular Filtration Rate mL/min >90 87 Glucose mg/dL 112 113 Calcium mg/dL 8.4 8.3* Magnesium mg/dL 1.9 2.0 Phosphorus mg/dL 3.7 3.8 Anion Gap mmol/L 9 9 Complete Blood Count: Lab results within last 7 days (see chart for full results) Units 02/03/23 0351 02/02/23 2343 WBC K/uL 13.06* 8.36 HGB g/dL 9.7* 9.3* HCT % 31.2* 30.1* PLT K/uL 141 125* MCV fL 94.3 94.1 Cardiac Studies: Lab results within last 7 days (see chart for full results) Units 02/03/23 0351 02/02/23 2343 Troponin T, High Sensitivity ng/L 112* 116* BNP, NT-Pro pg/mL -- 6,933* Coagulation Studies: Lab results within last 7 days (see chart for full results) Units 02/02/23 2343 Prothrombin Time seconds 16.5* INR 1.3* aPTT seconds 29 Liver Function Panel: Lab results within last 7 days (see chart for full results) Units 02/02/23 2343 Albumin g/dL 2.9* Protein g/dL 6.4 Bilirubin, Total mg/dL 0.6 Bilirubin, Direct mg/dL 0.3 AST U/L 33 ALT U/L 18 Alkaline Phosphatase U/L 74 Latest Reference Range & Units 02/03/23 02:38 Color, Urine Colorless, Light Yellow, Yellow, Dark Yellow Light Yellow Clarity, Urine Clear Clear Glucose, Urine Negative mg/dL Negative Bilirubin, Urine Negative Negative Ketone, Urine Negative mg/dL Negative Specific [place], Urine 1.003 - 1.030 1.049 (H) Blood, Urine Negative Trace ! pH, Urine 5.0 - 7.5 Units 6.0 Protein, Urine Negative mg/dL Trace ! Urobilinogen, Urine Normal mg/dL Normal Nitrite, Urine Negative Negative Esterase, Urine Negative Small ! Bacteria, Urine 0 - 25 /HPF 26-50 ! WBC, Urine 0 - 2 /HPF 6-9 ! RBC, Urine 0 - 2 /HPF 3-5 ! (H): Data is abnormally high !: Data is abnormal Infectious Studies: Lab results within last 7 days (see chart for full results) Units 02/02/23 2343 Lactate, Whole Blood mmol/L 1.8 Cultures: reviewed. Urine culture pending Recent Cultures (2 Weeks) 01/24/2022 11/07/2020 08/22/2020 03/01/2020 10/22/2019 05/01/2015 08/18/2007 01/26/2007 3:00 PM 9:18 AM 9:49 AM 11:46 AM 12:15 PM 11:38 AM 9:30 AM 9:31 AM SPECIMEN DESCRIPTION -- -- -- CLEAN CATCH URINE CLEAN CATCH URINE URINE CLEAN CATCH URINE CLEAN CATCH URINE CULTURE -- -- -- LESS THAN 10,000 COLONIES/ML MIXED NORMAL KOJO LESS THAN 10,000 COLONIES/ML MIXEDNORMAL KOJO LESS THAN 10,000 COLONIES/ML MIXED KOJO >100,000 COLONIES/ML ESCHERICHIA COLI THISGRAM NEGATIVE BACILLI DISPLAYS IN ... LESS THAN 1,000 COLONIES/ML (NO GROWTH) LESS THAN 10,000 COLONIES/ML ONE OTHER SPECIES QUANT URINE CULTURE GROWTH No significant growth >100,000 colonies/mL Escherichia coli 10,000 to100,000 colonies/mL Escherichia coli -- -- -- -- -- Radiographic Studies: reviewed. XR CHEST 1 VIEW Result Date: 02/03/2023 IMPRESSION 1. No evidence of pneumoperitoneum. Recommend a CT if there is continued clinical concern. 2. Increased bilateral opacities, likely a combination of edema and atelectasis. Cannot exclude infiltrate in the left midlung or bases. 3. Moderate left and small right pleural effusions. XR ABDOMEN 1 VIEW Result Date: 02/03/2023 IMPRESSION 1. No evidence of pneumoperitoneum. Recommend a CT if there is continued clinical concern. 2. Increased bilateral opacities, likely a combination of edema and atelectasis. Cannot exclude infiltrate in the left midlung or bases. 3. Moderate left and small right pleural effusions. Assessment & Plan Principal Problem: Upper GI bleed (POA: Yes) Active Problems: Acute blood loss anemia (POA: Yes) Hemorrhagic shock (HCC) (POA: Yes) POA = Present On Admission 77 year old female with acute hemorrhagic shock 2/2 upper GI bleed from gastric ulcer. NEUROLOGICAL: No Acute Issues PULMONARY / RESPIRATORY: New oxygen requirement 2/2 pulmonary edema from fluid resuscitation CXR -moderate left and small right pleural effusions. SpO2 94 on 2L Lasix 40mg CARDIOVASCULAR: Cardiac amyloidosis, Tachy-igor syndrome s/p recent PM, Atrial fibrillation on Eliquis, HFpEF, Chronic hypotension on Midodrine EKG in process GASTROINTESTINAL / HEPATOBILIARY: Upper GI Bleed Carafate 1000mg Last Bowel Movement: 01/03/23 (02/03/23599) Stool Description: Blood;Liquid;Large (02/03/23 06) Stress Ulcer Prophylaxis: Proton Pump Inhibitor.. Protonix 80mg Diet / Nutrition: NPO. Can advance if no procedure per GI RENAL / METABOLIC / FLUIDS: No Acute issues Trend BMP daily INFECTIOUS DISEASES: Recent UTI Urine culture pending. 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 / MOBILITY: No Acute Issues PT/OT DERMATOLOGIC / WOUND CARE: No Acute Issues Wound care PRN LINES / DRAINS / TUBES: LINES ALL Duration Peripheral Line Anterior;Right Hand 20 Gauge <1 day Peripheral Line Left 20 Gauge <1 day Peripheral Line Left;Lower 18 Gauge <1 day Peripheral Line Right Antecubital 18 Gauge <1 day Urethral Catheter Regular catheter <1 day List of services consulted/following: ADULT PHYSICAL THERAPY CONSULT IP ADULT OCCUPATIONAL THERAPY CONSULT IP GASTROENTEROLOGY CONSULT IP GLOBAL ISSUES: Code Status: Full Code Analgesia: no pain Sedation: N/A Delirium/Confusion Assessment Method for ICU (CAM-ICU): CAM-ICU negative HOB Elevation: greater than 30 degrees Nutrition: NPO DVT Prophylaxis: pneumatic compression devices alone due to chemoprophylaxis contraindication Stress Ulcer Prophylaxis: PPI therapy for other indication Glycemic Control: controlled - not in protocol Oral hygiene every four hours Chlorhexidine mouth rinse every twelve hours Central Line Necessity Reviewed: N/A Huerta: reviewed and needed Disposition: keep in ICU :[id number]} Patient's decisional capacity: has capacity to make decisions Communication with Patient/Family: No meeting held. Goals of Care: improve respiratory status and stabilize hemodynamic status Patient was discussed with attending physician, DO Mina Hyman, Medical Student Resident Physician This chart was completed in part utilizing [employer] Speech Voice Recognition Software. Grammatical errors, random word insertions, pronoun errors, and incomplete sentences are an occasional consequence of this system due to software limitations, ambient noise, and hardware issues. Any formal questions or concerns about the content, text, or information contained within the body of this dictation should be directly addressed to the provider for clarification. * Care Plan - Michelle Vallejo RN - 02/03/2023 5:22 AM EST Clinical Goal(s): Maintain HgB >7.0 (02/02/23 2300) Possible barriers to meeting goal(s)/advancing plan of care: bleeding gastric ulcer, multiple eposides of emesis and bloody BMs Stability of the patient: Moderately unstable - medium risk of patient condition declining or worsening Summary regarding today's goal(s): Met: pt was able to maintain hgb > 7.0 during shift Recommendations: continue current plan of care documented in this encounter Plan of Treatment Upcoming Encounters Date Type Department Care Team (Latest Contact Info) Description 02/28/2023 11:45 AM EST Cardiac Studies [facility], [facility] [address] [facility] [place] [address] [facility] Pacer [facility] [address] [place] [address] 03/12/2023 9:57 AM EST Hospital Encounter OR [facility], Operating Room, [facility] - 4th Floor [address] [address] Hope Sturat MD [address] [place] [address] 03/12/2023 9:57 AM EST - 03/12/2023 11:19 AM EST Surgery OR [facility], Operating Room, [facility] - 4th Floor [address] [address] Hope Stuart MD [address] [place] [address] ESOPHAGOGASTRODUODENOSCOPY (EGD), FLEXIBLE, TRANSORAL, ENDOSCOPIC ULTRASOUND Scheduled Orders Name Type Priority Associated Diagnoses Orde r Schedule GLUCOSE METER, POINT OF CARE (COMMUNICATION ORDER) Point of Care Testing Routine As Needed until discontinued starting 02/06/2023 Scheduled Procedures Name Priority Associated Diagnoses Date/Ti [...] this encounter Medical Devices Implanted Type Area Auditing Manager Device Identifier Shelf Expiration Date Model / Serial / Lot Lens Intraoc 17.0 - [id number] - [id number] Implanted:Qty: 1 on 02/01/2020 by Jossue Mancera MD at OR [facility] Right: Eye [employer] 05/28/2024 [id number] / [id number] / [id number] Lens Intraoc 17.5 - [id number] - [id number] Implanted:Qty: 1 on 02/10/2020 by Jossue Mancera MD at OR [facility] Left: Eye [employer] 01/29/2024 [id number] / [id number] / [id number] documented as of this encounter Procedures Procedure Name Priority Date/Time Associated Diagnosis Comments BASIC METABOLIC PANEL STAT 02/08/2023 7:54 AM EST CBC STAT 02/08/2023 7:54 AM EST BASIC METABOLIC PANEL STAT 02/07/2023 7:40 AM EST PHOSPHORUS STAT 02/07/2023 7:40 AM EST CBC STAT 02/07/2023 7:40 AM EST MAGNESIUM STAT 02/07/2023 7:40 AM EST SURGICAL PATHOLOGY Routine 02/06/2023 1: 19 PM EST EGD, Flexible, Diagnostic 02/06/2023 12:53 PM EST Abdominal pain, unspecified abdominal location UPPER GI ENDOSCOPY 02/06/2023 12 :07 PM EST XR CHEST 1 VIEW STAT 02/06/2023 8:15 AM EST BASIC METABOLIC PANEL STAT 02/06/2023 6:33 AM EST PT INR STAT 02/06/2023 6:33 AM EST PHOSPHORUS STAT 02/06/2023 6:33 AM EST CALCIUM, IONIZED Routine 02/06/2023 6:33 AM EST CBC STAT 02/06/2023 6:33 AM EST MAGNESIUM STAT 02/06/2023 6:33 AM EST RENAL FUNCTION PANEL STAT 02/05/2023 10:08 PM EST CBC STAT 02/05/2023 10:08 PM EST RENAL FUNCTION PANEL STAT 02/05/2023 3:29 PM EST BASIC METABOLIC PANEL STAT 02/05/2023 6:11 AM EST PHOSPHORUS STAT 02/05/2023 6:11 AM EST CALCIUM, IONIZED Routine 02/05/2023 6:11 AM EST CBC STAT 02/05/2023 6:11 AM EST MAGNESIUM STAT 02/05/2023 6:11 AM EST CBC STAT 02/04/2023 7:46 PM EST BASIC METABOLIC PANEL STAT 02/04/2023 5:04 AM EST PHOSPHORUS STAT 02/04/2023 5:04 AM EST CALCIUM, IONIZED Routine 02/04/2023 5:04 AM EST CBC STAT 02/04/2023 5:04 AM EST MAGNESIUM STAT 02/04/2023 5:04 AM EST CBC STAT 02/03/2023 4:07 PM EST SURGICAL PATHOLOGY Routine 02/03/2023 1: 27 PM EST UPPER GI ENDOSCOPY 02/03/2023 11 :52 AM EST EGD, Flexible, Diagnostic 02/03/2023 11:36 AM EST Gastric ulcer XR ABDOMEN 1 VIEW STAT 02/03/2023 9:0 3 AM EST XR CHEST 1 VIEW STAT 02/03/2023 9:03 AM EST MT ECG ROUTINE ECG W/LEAST 12 LDS I&R ONLY STAT 02/03/2023 8:41 AM EST Troponin level elevated TROPONIN T, HIGH SENSITIVITY STAT 02/03/2023 3:51 AM EST TSH WITH FREE T4 IF INDICATED Routine 02/03/2023 3:51 AM EST BASIC METABOLIC PANEL STAT 02/03/2023 3:51 AM EST PHOSPHORUS STAT 02/03/2023 3:51 AM EST CALCIUM, IONIZED Routine 02/03/2023 3:51 AM EST CBC STAT 02/03/2023 3:51 AM EST T4, FREE Routine 02/03/2023 3:51 AM EST MAGNESIUM STAT 02/03/2023 3:51 AM EST CORTISOL Routine 02/03/2023 3:51 AM EST CULTURE, URINE, QUANTITATIVE STAT 02/03/2023 2:38 AM EST URINALYSIS, REFLEX TO MICROSCOPIC STAT 02/03/2023 2:38 AM EST TEG (THOMROBOELASTOGRAPH) PANEL Routine 02/02/2023 11:43 PM EST TEG (THROMBOELASTOGRAPH), HEPARINASE Routine 02/02/2023 11:43 PM EST TROPONIN T, HIGH SENSITIVITY STAT 02/02/2023 11:43 PM EST TEG (THROMBOELASTOGRAPH) Routine 02/02/2023 11:43 PM EST BNP (NT-PROBNP) STAT 02/02/2023 11:43 PM EST HEPATIC FUNCTION PANEL STAT 02/02/2023 11:43 PM EST BASIC METABOLIC PANEL STAT 02/02/2023 11:43 PM EST TYPE AND SCREEN Routine 02/02/2023 11:43 PM EST PT INR STAT 02/02/2023 11:43 PM EST PHOSPHORUS STAT 02/02/2023 11:43 PM EST LACTATE,WHOLE BLOOD STAT 02/02/2023 1 1:43 PM EST CALCIUM, IONIZED Routine 02/02/2023 11:4 3 PM EST APTT STAT 02/02/2023 11:43 PM EST CBC STAT 02/02/2023 11:43 PM EST MAGNESIUM STAT 02/02/2023 11:43 PM EST documented in this encounter Results * (ABNORMAL) CBC (02/08/2023 7:54 AM EST) [facility] WBC 8.15 4.00 - 10.80 K/uL 02/08/2023 8:08 AM EST [facility] RBC 3.24 3.85 - 5.15 M/uL 02/08/2023 8:08 AM EST [facility] HGB 9.4(L) 12.0 - 15.3 g/dL 02/08/2023 8:08 AM EST [facility] HCT 31.4(L) 36.0 - 45.2 % 02/08/2023 8:08 AM EST [facility] MCV 96.9 81.5 - 97.5 fL 02/08/2023 8:08 AM EST [facility] MCH 29.0 27.0 - 34.0 pg 02/08/2023 8:08 AM EST [facility] MCHC 29.9 32.0 - 36.0 g/dL 02/08/2023 8:08 AM EST [facility] RDW 17.2 11.5 - 15.5 % 02/08/2023 8:08 AM EST [facility] PLT 191 140 - 400 K/uL 02/08/2023 8:08 AM EST [facility] MPV 11.2 6.6 - 11.1 fL 02/08/2023 8:08 AM EST [facility] nRBCs 0 <=0 /100 WBCs 02/08/2023 8:08 AM EST LABORATORY GM Blood Venous blood specimen / Unknown Venipuncture / Unknown 02/08/2023 7:54 AM EST 02/08/2023 7:58 AM EST Manjinder Adame MD LAB BLOOD ORDERABLES [facility] [address] [place] [address] * (ABNORMAL) BASIC METABOLIC PANEL (02/08/2023 7:54 AM EST) BUN 15 6 - 20 mg/dL 02/08/2023 8:27 AM EST [facility] Creatinine 0.7 0.5 - 1.0 mg/dL 02/08/2023 8:27 AM EST [facility] Estimated Glomerular Filtration Rate >90 >=60 mL/min 02/08/2023 8:27 AM EST [facility] Comment:eGFR is calculated b ased on the CKD-EPI 2020 equation Sodium 137 135 - 146 mmol/L 02/08/2023 8:27 AM EST [facility] Potassium 3.4(L) 3.5 - 5.1 mmol/L 02/08/2023 8:27 AM EST [facility] Chloride 104 98 - 107 mmol/L 02/08/2023 8:27 AM EST [facility] CO2 25 22 - 32 mmol/L 02/08/2023 8:27 AM EST [facility] Anion Gap 8 7 - 15 mmol/L 02/08/2023 8:27 AM EST [facility] Glucose 104 70 - 120 mg/dL 02/08/2023 8:27 AM EST [facility] Calcium 8.3(L) 8.4 - 10.2 mg/dL 02/08/2023 8:27 AM EST [facility] Blood Venous blood specimen / Unknown Venipuncture / Unknown 02/08/2023 7:54 AM EST 02/08/2023 7:58 AM EST Manjinder Adame MD LAB BLOOD ORDERABLES [facility] [address] [place] [address] * (ABNORMAL) CBC (02/07/2023 7:40 AM EST) WBC 6.64 4.00 - 10.80 K/uL 02/07/2023 8:09 AM EST [facility] RBC 3.33 3.85 - 5.15 M/uL 02/07/2023 8:09 AM EST [facility] HGB 9.8(L) 12.0 - 15.3 g/dL 02/07/2023 8:09 AM EST [facility] HCT 32.0(L) 36.0 - 45.2 % 02/07/2023 8:09 AM EST [facility] MCV 96.1 81.5 - 97.5 fL 02/07/2023 8:09 AM EST [facility] MCH 29.4 27.0 - 34.0 pg 02/07/2023 8:09 AM EST [facility] MCHC 30.6 32.0 - 36.0 g/dL 02/07/2023 8:09 AM EST [facility] RDW 17.2 11.5 - 15.5 % 02/07/2023 8:09 AM EST [facility] PLT 196 140 - 400 K/uL 02/07/2023 8:09 AM EST [facility] MPV 11.5 6.6 - 11.1 fL 02/07/2023 8:09 AM EST [facility] nRBCs 0 <=0 /100 WBCs 02/07/2023 8:09 AM EST [facility] Blood Venous blood specimen / Unknown Venipuncture / Unknown 02/07/2023 7:40 AM EST 02/07/2023 7:52 AM EST Manjinder Adame MD LAB BLOOD ORDERABLES [facility] [address] [place] [address] * (ABNORMAL) PHOSPHORUS (02/07/2023 7:40 AM EST) Phosphorus 2.4(L) 2.5 - 4.8 mg/dL 02/07/2023 8:29 AM EST [facility] Blood Venous blood specimen / Unknown Venipuncture / Unknown 02/07/2023 7:40 AM EST 02/07/2023 7:52 AM EST Kodi Pantoja PA-C LAB BLOOD ORDERABLES Performing Organization Address City/[facility]/ZIP Co de Phone Number [facility] [address] [place] [address] * MAGNESIUM (02/07/2023 7:40 AM EST) Magnesium 2.2 1.5 - 2.6 mg/dL 02/07/2023 8:29 AM EST LABORATORY C Blood Venous blood specimen / Unknown Venipuncture / Unknown 02/07/2023 7:40 AM EST 02/07/2023 7:52 AM EST Kodi Pantoja PA-C LAB BLOOD ORDERABLES Performing Organization Address City/[facility]/ZIP Co de Phone Number [facility] [address] [place] [address] * (ABNORMAL) BASIC METABOLIC PANEL (02/07/2023 7:40 AM EST) BUN 16 6 - 20 mg/dL 02/07/2023 8:29 AM EST [facility] Creatinine 0.6 0.5 - 1.0 mg/dL 02/07/2023 8:29 AM EST [facility] Estimated Glomerular Filtration Rate >90 >=60 mL/min 02/07/2023 8:29 AM EST [facility] Comment:eGFR is calculated b jolened on the CKD-EPI 2020 equation Sodium 139 135 - 146 mmol/L 02/07/2023 8:29 AM EST [facility] Potassium 3.6 3.5 - 5.1 mmol/L 02/07/2023 8:29 AM EST [facility] Chloride 106 98 - 107 mmol/L 02/07/2023 8:29 AM EST [facility] CO2 25 22 - 32 mmol/L 02/07/2023 8:29 AM EST [facility] Anion Gap 8 7 - 15 mmol/L 02/07/2023 8:29 AM EST [facility] Glucose 96 70 - 120 mg/dL 02/07/2023 8:29 AM EST [facility] Calcium 8.3(L) 8.4 - 10.2 mg/dL 02/07/2023 8:29 AM EST [facility] Blood Venous blood specimen / Unknown Venipuncture / Unknown 02/07/2023 7:40 AM EST 02/07/2023 7:52 AM EST Manjinder Adame MD LAB BLOOD ORDERABLES Performing Organization Address City/State/[facility] Co de Phone Number [facility] [address] [place] [address] * SURGICAL PATHOLOGY (02/06/2023 1:19 PM EST) Final Diagnosis A. Stomach, gastric ulcer, biopsy: Ulceration with associated fibrinous neutrophilic exudates, and hemorrhage. No dysplasia or malignancy identified in material examined. 02/07/2023 9:43 AM EST [facility] Clinical History GI bleed 02/07/2023 9:43 AM EST [facility] Gross Description A. Stomach. Received in formalin with a container labeled with "Anel Hogue", "[id number]", "1945" and " gastric ulcer". Received are multiple fragments of gonzalez tissue measuring from 0.2 up to 0.3 cm in greatest dimension. Specimen is entirely submitted in cassette A1. Gross By: KB 02/07/2023 9:43 AM EST [facility] Sign Out Location Pathologist sign out performed at [facility] ([facility] [address] [place] [id number]. 02/07/2023 9:43 AM EST [facility] Photographic images and diagrams represent aguillon findings in this case; they are not intended to replace a complete review of the final diagnostic report. The following statement applies to Flow Cytometry, Histology, In situ Hybridization Assays and Molecular Genetics. This test was developed and performed at [facility] and its performance characteristics determined by [facility] [employer]. It has not been cleared or approved by the U.S. Food and Drug Administration. The FDA has determined that such clearance or approval is not necessary. This test is used for clinical purposes. It should not be regarded as investigational or for research. Special stains, including histochemical stains, and studies using immunologic and SHEILA methodology (where applicable) are performed with appropriate positive and negative control reactions. 02/07/2023 9:43 AM EST [facility] Tissue Stomach part / Unknown Non-blood Collection / Unknown 02/06/2023 1:19 PM EST 02/06/2023 6:00 PM EST Jose Daniels DO LAB PATHOLOGY [facility] [address] [address] * UPPER GI ENDOSCOPY (02/06/2023 12:07 PM EST) 02/06/2023 12:0 7 PM EST Narrative Procedure Note Shreyas Lerma DO - 02/06/2023 12:07 PM EST [facility] Patient Name: Anel Hogue Procedure Date: 02/06/2023 12:07 PM Date of : 1945 Admit Type: Inpatient Note Status:Finalized Date of : 1945 Admit Type: Inpatient Age: 77 Room: Endo - Room 8 Gender: Female Note Status: Finalized Procedure: Upper GI endoscopy Indications: Recent gastrointestinal bleeding Providers: Jose Daniels DO (Doctor), Regan Rangel MD(Fellow) Patient Profile: This is a 77 year old female. Refer to note inpatient chart for documentation of history and physical. Referring MD: Shreyas Lerma DO Medicines: Monitored Anesthesia Care Complications: No immediate complications. Procedure: Pre-Anesthesia Assessment: - [place] Protocol: - Pre-procedure Verification: Prior to theprocedure, the patient's identity was verified by full name, date of and medicalrecord number. The patient's identity was verified on all pertinent medicalrecords, including History and Physical, nursing assessment and pre-anesthesiaassessment. Also prior to the procedure, a History and Physical was performed,and patient medications, allergies and sensitivities were reviewed. The patient'stolerance of previous anesthesia was reviewed. The patient is competent. The risks andbenefits of the procedure and the sedation options and risks were discussed with thepatient. All questions were answered and informed consent was obtained. - Marking: The endoscopic procedure was visuallymarked on a patient wrist band delineating the patient name, proposed procedureand endoscopist's initials. - Time-Out: Prior to the start of the procedure,the patient's identification, proposed procedure, accurate signed consent,correctly labeled images and records, and need for prophylactic antibiotics were verifiedby the physician, the nurse and the anesthesiologist in the endoscopy suite. - The supervising physician was present for theentire procedure from scope insertion until scope withdrawal. After obtaining informed consent, the endoscope waspassed under direct vision. All instruments were visually inspected immediatelybefore and after removal from the patient to ensure they are fully intact. Throughout the procedure, the patient's bloodpressure, pulse, and oxygen saturations were monitored continuously. The [id number] Endoscope([id number]) was introduced through the mouth, and advanced to the second part ofduodenum. The upper GI endoscopy was accomplished without difficulty. The patienttolerated the procedure well. Findings & Specimens: The examined esophagus was normal. One non-bleeding cratered gastric ulcer with a clean ulcer base(Dionisio Class III) was found in the stomach. Biopsies were taken with a cold forceps for histology. Thepathology specimen was placed into Bottle A. A previously placed plastic biliary stent was seen in the ampulla. Impression: - Normal esophagus. - Non-bleeding gastric ulcer with a clean ulcerbase (Dionisio Class III). Biopsied. - Plastic biliary stent in the duodenum. Recommendation: - Return patient to ICU for ongoing care. - Await pathology results. - Use Prilosec (omeprazole) 40 mg PO BID X 8 weeksthen once daily. - Repeat upper endoscopy to check healing with on 03/12/23 (planned EUS- GB drainage and ERCP) Jose Daniels DO 02/06/2023 1:36:16 PM This report has been signed electronically. Regan Rangel MD Estimated Blood Loss: Estimated blood loss was minimal. Shreyas Lerma DO GASTRO UPPER * XR CHEST 1 VIEW (02/06/2023 8:15 AM EST) Anatomical Region Laterality Modality Chest Computed Radiogr aphy 02/06/2023 8:39 AM EST Impressions 02/06/2023 9:10 AM EST IMPRESSION: Stable bilateral pleural effusions, greater on the left with accompanying compressive atelectasis. I have personally reviewed this examination and agree with the resident/fellow physician's interpretation. Narrative 02/06/2023 9:10 AM EST EXAM: XR CHEST 1 VIEW - 02/06/2023 8:15 am HISTORY: 77 year old with crackles on ausculation. Concern for pleural effusion/edema TECHNIQUE: Frontal radiograph of the chest was acquired. COMPARISON: One-view chest 02/03/2023 FINDINGS: Catheters/tubes/devices/foreign bodies: Left chest pacemaker with intact leads. Padlock clip in the mid-epigastrium. Stable moderate pleural effusions, greater on the left and accompanying compressive atelectasis. Cardiomediastinal silhouette is within normal limits. Degenerative changes of the spine. Procedure Note Jerzy Martinez MD - 02/06/2023 EXAM: XR CHEST 1 VIEW - 02/06/2023 8:15 am HISTORY: 77 year old with crackles on ausculation. Concern for pleuraleffusion/edema TECHNIQUE: Frontal radiograph of the chest was acquired. COMPARISON: One-view chest 02/03/2023 FINDINGS: Catheters/tubes/devices/foreign bodies: Left chest pacemaker with intactleads. Padlock clip in the mid-epigastrium. Stable moderate pleural effusions, greater on the left and accompanyingcompressive atelectasis. Cardiomediastinal silhouette is within normal limits. Degenerative changes of the spine. IMPRESSION IMPRESSION: Stable bilateral pleural effusions, greater on the left with accompanyingcompressive atelectasis. I have personally reviewed this examination and agree with the resident/fellow physician's interpretation. Carlee Johnston MD RADIOLOGY (RA D GENERAL) * (ABNORMAL) CBC (02/06/2023 6:33 AM EST) WBC 9.32 4.00 - 10.80 K/uL 02/06/2023 7:04 AM EST [facility] RBC 3.35 3.85 - 5.15 M/uL 02/06/2023 7:04 AM EST [facility] HGB 9.9(L) 12.0 - 15.3 g/dL 02/06/2023 7:04 AM EST [facility] HCT 32.9(L) 36.0 - 45.2 % 02/06/2023 7:04 AM EST [facility] MCV 98.2 81.5 - 97.5 fL 02/06/2023 7:04 AM EST [facility] MCH 29.6 27.0 - 34.0 pg 02/06/2023 7:04 AM EST [facility] MCHC 30.1 32.0 - 36.0 g/dL 02/06/2023 7:04 AM EST [facility] RDW 17.2 11.5 - 15.5 % 02/06/2023 7:04 AM EST [facility] PLT 218 140 - 400 K/uL 02/06/2023 7:04 AM EST [facility] MPV 11.7 6.6 - 11.1 fL 02/06/2023 7:04 AM EST [facility] nRBCs 0 <=0 /100 WBCs 02/06/2023 7:04 AM EST [facility] Blood Venous blood specimen / Unknown Venipuncture / Unknown 02/06/2023 6:33 AM EST 02/06/2023 6:53 AM EST Manjinder Adame MD LAB BLOOD ORDERABLES Performing Organization Address City/[facility]/ZIP Co de Phone Number [facility] [address] [place] [address] * CALCIUM, IONIZED (02/06/2023 6:33 AM EST) Calcium, Ionized 1.15 1.13 - 1.32 mmol/L 02/06/2023 7:12 AM EST [facility] Comment:This test was develo ped and its performance characteristics dtermined by [employer]. It has not been cleared or approved by the US Food and Drug Administration Blood Venous blood specimen / Unknown Venipuncture / Unknown 02/06/2023 6:33 AM EST 02/06/2023 6:53 AM EST Kodi Pantoja PA-C LAB BLOOD ORDERABLES Performing Organization Address [facility] Phone Number [facility] [address] [place] [address] * PHOSPHORUS (02/06/2023 6:33 AM EST) Phosphorus 2.9 2.5 - 4.8 mg/dL 02/06/2023 7:23 AM EST [facility] Blood Venous blood specimen / Unknown Venipuncture / Unknown 02/06/2023 6:33 AM EST 02/06/2023 6:53 AM EST Kodi Pantoja PA-C LAB BLOOD ORDERABLES Performing Organization Address [facility] Co de Phone Number [facility] [address] [place] [address] * MAGNESIUM (02/06/2023 6:33 AM EST) Magnesium 2.4 1.5 - 2.6 mg/dL 02/06/2023 7:23 AM EST [facility] Blood Venous blood specimen / Unknown Venipuncture / Unknown 02/06/2023 6:33 AM EST 02/06/2023 6:53 AM EST Kodi Pantoja PA-C LAB BLOOD ORDERABLES [facility] [address] [place] [address] * BASIC METABOLIC PANEL (02/06/2023 6:33 AM EST) BUN 20 6 - 20 mg/dL 02/06/2023 7:23 AM EST [facility] Creatinine 0.7 0.5 - 1.0 mg/dL 02/06/2023 7:23 AM EST [facility] Estimated Glomerular Filtration Rate >90 >=60 mL/min 02/06/2023 7:23 AM EST [facility] Comment:eGFR is calculated b ased on the CKD-EPI 2020 equation Sodium 137 135 - 146 mmol/L 02/06/2023 7:23 AM EST [facility] Potassium 4.0 3.5 - 5.1 mmol/L 02/06/2023 7:23 AM EST [facility] Chloride 104 98 - 107 mmol/L 02/06/2023 7:23 AM EST [facility] CO2 23 22 - 32 mmol/L 02/06/2023 7:23 AM EST [facility] Anion Gap 10 7 - 15 mmol/L 02/06/2023 7:23 AM EST [facility] Glucose 114 70 - 120 mg/dL 02/06/2023 7:23 AM EST [facility] Calcium 8.4 8.4 - 10.2 mg/dL 02/06/2023 7:23 AM EST [facility] Blood Venous blood specimen / Unknown Venipuncture / Unknown 02/06/2023 6:33 AM EST 02/06/2023 6:53 AM EST Manjinder Adame MD LAB BLOOD ORDERABLES [facility] [address] [place] [address] * PT INR (02/06/2023 6:33 AM EST) Prothrombin Time 15.1 11.6 - 15.2 seconds 02/06/2023 7:17 AM EST LABORATORY [facility] INR 1.2 0.8 - 1.2 02/06/2023 7:17 AM EST [facility] Blood Venous blood specimen / Unknown Venipuncture / Unknown 02/06/2023 6:33 AM EST 02/06/2023 6:53 AM EST Narrative [facility] - 02/06/2023 7:17 AM EST Warfarin Therapy INR: 2.0-3.0 conventional anticoagulation INR: 2.5-3.5 high intensity anticoagulation Carlee Johnston MD LAB BLOOD ORD ERABLES [facility] [address] [place] [address] * (ABNORMAL) CBC (02/05/2023 10:08 PM EST) WBC 7.45 4.00 - 10.80 K/uL 02/05/2023 10:26 PM EST LABORATORY [facility] RBC 3.20 3.85 - 5.15 M/uL 02/05/2023 10:26 PM EST [facility] HGB 9.5(L) 12.0 - 15.3 g/dL 02/05/2023 10:26 PM EST [facility] HCT 31.0(L) 36.0 - 45.2 % 02/05/2023 10:26 PM EST [facility] MCV 96.9 81.5 - 97.5 fL 02/05/2023 10:26 PM EST [facility] MCH 29.7 27.0 - 34.0 pg 02/05/2023 10:26 PM EST [facility] MCHC 30.6 32.0 - 36.0 g/dL 02/05/2023 10:26 PM EST [facility] RDW 16.6 11.5 - 15.5 % 02/05/2023 10:26 PM EST [facility] PLT 184 140 - 400 K/uL 02/05/2023 10:26 PM EST [facility] MPV 11.8 6.6 - 11.1 fL 02/05/2023 10:26 PM EST [facility] nRBCs 0 <=0 /100 WBCs 02/05/2023 10:26 PM EST [facility] Blood Venous blood specimen / Unknown Venipuncture / Unknown 02/05/2023 10:08 PM EST 02/05/2023 10:13 PM EST Carlee Johnston MD LAB BLOOD ORD ERABLES [facility] [address] [place] [address] * (ABNORMAL) RENAL FUNCTION PANEL (02/05/2023 10:08 PM EST) BUN 21(H) 6 - 20 mg/dL 02/05/2023 10:44 PM EST LABORATORY C Creatinine 0.7 0.5 - 1.0 mg/dL 02/05/2023 10:44 PM EST LABORATORY [facility] Estimated Glomerular Filtration Rate >90 >=60 mL/min 02/05/2023 10:44 PM EST [facility] Comment:eGFR is calculated b ased on the CKD-EPI 2020 equation Sodium 137 135 - 146 mmol/L 02/05/2023 10:44 PM EST [facility] Potassium 4.5 3.5 - 5.1 mmol/L 02/05/2023 10:44 PM EST [facility] Chloride 104 98 - 107 mmol/L 02/05/2023 10:44 PM EST [facility] CO2 24 22 - 32 mmol/L 02/05/2023 10:44 PM EST [facility] Anion Gap 9 7 - 15 mmol/L 02/05/2023 10:44 PM EST [facility] Glucose 112 70 - 120 mg/dL 02/05/2023 10:44 PM EST [facility] Calcium 8.2(L) 8.4 - 10.2 mg/dL 02/05/2023 10:44 PM EST [facility] Albumin 3.1(L) 3.8 - 5.0 g/dL 02/05/2023 10:44 PM EST [facility] Phosphorus 3.7 2.5 - 4.8 mg/dL 02/05/2023 10:44 PM EST [facility] Blood Venous blood specimen / Unknown Venipuncture / Unknown 02/05/2023 10:08 PM EST 02/05/2023 10:13 PM EST Carlee Johnston MD LAB BLOOD ORD ERABLES [facility] [address] [place] [address] * (ABNORMAL) RENAL FUNCTION PANEL (02/05/2023 3:29 PM EST) BUN 23(H) 6 - 20 mg/dL 02/05/2023 4:06 PM EST [facility] Creatinine 0.7 0.5 - 1.0 mg/dL 02/05/2023 4:06 PM EST [facility] Estimated Glomerular Filtration Rate 90 >=60 mL/min 02/05/2023 4:06 PM EST [facility] Comment:eGFR is calculated b ased on the CKD-EPI 2020 equation Sodium 138 135 - 146 mmol/L 02/05/2023 4:06 PM EST [facility] Potassium 3.2(L) 3.5 - 5.1 mmol/L 02/05/2023 4:06 PM EST [facility] Chloride 103 98 - 107 mmol/L 02/05/2023 4:06 PM EST [facility] CO2 28 22 - 32 mmol/L 02/05/2023 4:06 PM EST [facility] Anion Gap 7 7 - 15 mmol/L 02/05/2023 4:06 PM EST [facility] Glucose 146(H) 70 - 120 mg/dL 02/05/2023 4:06 PM EST [facility] Calcium 8.3(L) 8.4 - 10.2 mg/dL 02/05/2023 4:06 PM EST [facility] Albumin 3.1(L) 3.8 - 5.0 g/dL 02/05/2023 4:06 PM EST [facility] Phosphorus 2.3(L) 2.5 - 4.8 mg/dL 02/05/2023 4:06 PM EST [facility] Blood Venous blood specimen / Unknown Venipuncture / Unknown 02/05/2023 3:29 PM EST 02/05/2023 3:36 PM EST Carlee Johnston MD LAB BLOOD ORD ERABLES [facility] [address] [place] [address] * (ABNORMAL) CBC (02/05/2023 6:11 AM EST) Pathologist [facility] WBC 8.78 4.00 - 10.80 K/uL 02/05/2023 6:41 AM EST [facility] RBC 3.09 3.85 - 5.15 M/uL 02/05/2023 6:41 AM EST [facility] HGB 9.1(L) 12.0 - 15.3 g/dL 02/05/2023 6:41 AM EST [facility] HCT 30.3(L) 36.0 - 45.2 % 02/05/2023 6:41 AM EST [facility] MCV 98.1 81.5 - 97.5 fL 02/05/2023 6:41 AM EST [facility] MCH 29.4 27.0 - 34.0 pg 02/05/2023 6:41 AM EST [facility] MCHC 30.0 32.0 - 36.0 g/dL 02/05/2023 6:41 AM EST [facility] RDW 16.5 11.5 - 15.5 % 02/05/2023 6:41 AM EST [facility] PLT 178 140 - 400 K/uL 02/05/2023 6:41 AM EST [facility] MPV 11.9 6.6 - 11.1 fL 02/05/2023 6:41 AM EST [facility] nRBCs 0 <=0 /100 WBCs 02/05/2023 6:41 AM EST [facility] Blood Venous blood specimen / Unknown Venipuncture / Unknown 02/05/2023 6:11 AM EST 02/05/2023 6:31 AM EST Carlee Johnston MD LAB BLOOD ORD ERABLES Performing Organization Address [facility] de Phone Number [facility]ORY [facility] [address] [place] [address] * CALCIUM, IONIZED (02/05/2023 6:11 AM EST) Calcium, Ionized 1.17 1.13 - 1.32 mmol/L 02/05/2023 6:51 AM EST [facility] Comment:This test was develo ped and its performance characteristics dtermined by [employer]. It has not been cleared or approved by the US Food and Drug Administration Blood Venous blood specimen / Unknown Venipuncture / Unknown 02/05/2023 6:11 AM EST 02/05/2023 6:31 AM EST Kodi Pantoja PA-C LAB BLOOD ORDERABLES Performing Organization Address [facility] de Phone Number [facility]ORY [facility] [address] [place] [address] * (ABNORMAL) PHOSPHORUS (02/05/2023 6:11 AM EST) Phosphorus 2.3(L) 2.5 - 4.8 mg/dL 02/05/2023 7:02 AM EST [facility] Blood Venous blood specimen / Unknown Venipuncture / Unknown 02/05/2023 6:11 AM EST 02/05/2023 6:31 AM EST Kodi Pantoja PA-C LAB BLOOD ORDERABLES Performing Organization Address [facility] de Phone Number [facility]ORY [facility] [address] [place] [address] * MAGNESIUM (02/05/2023 6:11 AM EST) Magnesium 2.3 1.5 - 2.6 mg/dL 02/05/2023 7:02 AM EST [facility] Blood Venous blood specimen / Unknown Venipuncture / Unknown 02/05/2023 6:11 AM EST 02/05/2023 6:31 AM EST Kodi Pantoja PA-C LAB BLOOD ORDERABLES [facility] [address] [place] [address] * (ABNORMAL) BASIC METABOLIC PANEL (02/05/2023 6:11 AM EST) BUN 27(H) 6 - 20 mg/dL 02/05/2023 7:02 AM EST [facility] Creatinine 0.8 0.5 - 1.0 mg/dL 02/05/2023 7:02 AM EST [facility] Estimated Glomerular Filtration Rate 80 >=60 mL/min 02/05/2023 7:02 AM EST [facility] Comment:eGFR is calculated b ased on the CKD-EPI 2020 equation Sodium 139 135 - 146 mmol/L 02/05/2023 7:02 AM EST [facility] Potassium 3.4(L) 3.5 - 5.1 mmol/L 02/05/2023 7:02 AM EST [facility] Chloride 105 98 - 107 mmol/L 02/05/2023 7:02 AM EST [facility] CO2 27 22 - 32 mmol/L 02/05/2023 7:02 AM EST [facility] Anion Gap 7 7 - 15 mmol/L 02/05/2023 7:02 AM EST [facility] Glucose 94 70 - 120 mg/dL 02/05/2023 7:02 AM EST [facility] Calcium 8.5 8.4 - 10.2 mg/dL 02/05/2023 7:02 AM EST [facility] Blood Venous blood specimen / Unknown Venipuncture / Unknown 02/05/2023 6:11 AM EST 02/05/2023 6:31 AM EST Manjinder Adame MD LAB BLOOD ORDERABLES [facility] [address] [place] [address] * (ABNORMAL) CBC (02/04/2023 7:46 PM EST) WBC 10.45 4.00 - 10.80 K/uL 02/04/2023 8:18 PM EST [facility] RBC 3.09 3.85 - 5.15 M/uL 02/04/2023 8:18 PM EST [facility] HGB 9.0(L) 12.0 - 15.3 g/dL 02/04/2023 8:18 PM EST [facility] HCT 30.3(L) 36.0 - 45.2 % 02/04/2023 8:18 PM EST [facility] MCV 98.1 81.5 - 97.5 fL 02/04/2023 8:18 PM EST [facility] MCH 29.1 27.0 - 34.0 pg 02/04/2023 8:18 PM EST [facility] MCHC 29.7 32.0 - 36.0 g/dL 02/04/2023 8:18 PM EST [facility] RDW 16.6 11.5 - 15.5 % 02/04/2023 8:18 PM EST [facility] PLT 160 140 - 400 K/uL 02/04/2023 8:18 PM EST [facility] MPV 11.9 6.6 - 11.1 fL 02/04/2023 8:18 PM EST [facility] nRBCs 0 <=0 /100 WBCs 02/04/2023 8:18 PM EST [facility] Blood Venous blood specimen / Unknown Venipuncture / Unknown 02/04/2023 7:46 PM EST 02/04/2023 8:00 PM EST Carlee Johnston MD LAB BLOOD ORD ERABLES Performing Organization Address City/State/[facility] Co de Phone Number LABORATORY [facility] [address] [place] [address] * (ABNORMAL) CBC (02/04/2023 5:04 AM EST) WBC 8.08 4.00 - 10.80 K/uL 02/04/2023 5:35 AM EST LAB[facility] RBC 3.02 3.85 - 5.15 M/uL 02/04/2023 5:35 AM EST [facility] HGB 8.9(L) 12.0 - 15.3 g/dL 02/04/2023 5:35 AM EST [facility] HCT 29.2(L) 36.0 - 45.2 % 02/04/2023 5:35 AM EST [facility] MCV 96.7 81.5 - 97.5 fL 02/04/2023 5:35 AM EST [facility] MCH 29.5 27.0 - 34.0 pg 02/04/2023 5:35 AM EST [facility] MCHC 30.5 32.0 - 36.0 g/dL 02/04/2023 5:35 AM EST [facility] RDW 16.6 11.5 - 15.5 % 02/04/2023 5:35 AM EST LAB[facility] PLT 111(L) 140 - 400 K/uL 02/04/2023 5:35 AM EST [facility] MPV 12.3 6.6 - 11.1 fL 02/04/2023 5:35 AM EST [facility] nRBCs 0 <=0 /100 WBCs 02/04/2023 5:35 AM EST [facility] Blood Venous blood specimen / Unknown Venipuncture / Unknown 02/04/2023 5:04 AM EST 02/04/2023 5:17 AM EST Carlee Johnston MD LAB BLOOD ORD ERABLES Performing Organization Address City/[facility]/ZIP Co de Phone Number [facility]ATORY [facility] [address] [place] [address] * CALCIUM, IONIZED (02/04/2023 5:04 AM EST) [facility] Calcium, Ionized 1.17 1.13 - 1.32 mmol/L 02/04/2023 5:43 AM EST [facility]ORY [facility] Comment:This test was develo ped and its performance characteristics dtermined by [employer]. It has not been cleared or approved by the US Food and Drug Administration Blood Venous blood specimen / Unknown Venipuncture / Unknown 02/04/2023 5:04 AM EST 02/04/2023 5:16 AM EST Kodi Pantoja PA-C LAB BLOOD ORDERABLES Performing Organization Address City/[facility]/ZIP Co de Phone Number LAB[facility]ORY [facility] [address] [place] [address] * PHOSPHORUS (02/04/2023 5:04 AM EST) Pathologist [facility] Phosphorus 3.4 2.5 - 4.8 mg/dL 02/04/2023 5:52 AM EST [facility] Blood Venous blood specimen / Unknown Venipuncture / Unknown 02/04/2023 5:04 AM EST 02/04/2023 5:17 AM EST Kodi Pantoja PA-C LAB BLOOD ORDERABLES Performing Organization Address [facility]/ZIP Co de Phone Number [facility]ORY [facility] [address] [place] [address] * MAGNESIUM (02/04/2023 5:04 AM EST) Pathologist [facility] Magnesium 2.3 1.5 - 2.6 mg/dL 02/04/2023 5:52 AM EST [facility]ORY [facility] Blood Venous blood specimen / Unknown Venipuncture / Unknown 02/04/2023 5:04 AM EST 02/04/2023 5:17 AM EST Kodi Pantoja PA-C LAB BLOOD ORDERABLES Performing Organization Address [facility] de Phone Number LABORATORY [place] [address] [place] [address] * (ABNORMAL) BASIC METABOLIC PANEL (02/04/2023 5:04 AM EST) Pathologist [facility] BUN 32(H) 6 - 20 mg/dL 02/04/2023 5:52 AM EST LABORATORY [facility] Creatinine 0.8 0.5 - 1.0 mg/dL 02/04/2023 5:52 AM EST [facility] Estimated Glomerular Filtration Rate 77 >=60 mL/min 02/04/2023 5:52 AM EST LAB[facility] Comment:eGFR is calculated b ased on the CKD-EPI 2020 equation Sodium 145 135 - 146 mmol/L 02/04/2023 5:52 AM EST LAB[facility] Potassium 4.2 3.5 - 5.1 mmol/L 02/04/2023 5:52 AM EST LAB[facility] Chloride 110(H) 98 - 107 mmol/L 02/04/2023 5:52 AM EST [facility] CO2 27 22 - 32 mmol/L 02/04/2023 5:52 AM EST [facility] Anion Gap 8 7 - 15 mmol/L 02/04/2023 5:52 AM EST [facility] Glucose 124(H) 70 - 120 mg/dL 02/04/2023 5:52 AM EST [facility] Calcium 8.6 8.4 - 10.2 mg/dL 02/04/2023 5:52 AM EST [facility] Blood Venous blood specimen / Unknown Venipuncture / Unknown 02/04/2023 5:04 AM EST 02/04/2023 5:17 AM EST Manjinder Adame MD LAB BLOOD ORDERABLES Performing Organization Address City/State/[facility] Co de Phone Number LABORATORY [facility] [address] [place] [address] * (ABNORMAL) CBC (02/03/2023 4:07 PM EST) WBC 14.06(H) 4.00 - 10.80 K/uL 02/03/2023 4:36 PM EST [facility] RBC 3.31 3.85 - 5.15 M/uL 02/03/2023 4:36 PM EST [facility] HGB 9.8(L) 12.0 - 15.3 g/dL 02/03/2023 4:36 PM EST [facility] HCT 29.7(L) 36.0 - 45.2 % 02/03/2023 4:36 PM EST [facility] MCV 89.7 81.5 - 97.5 fL 02/03/2023 4:36 PM EST [facility] MCH 29.6 27.0 - 34.0 pg 02/03/2023 4:36 PM EST [facility] MCHC 33.0 32.0 - 36.0 g/dL 02/03/2023 4:36 PM EST [facility] RDW 16.6 11.5 - 15.5 % 02/03/2023 4:36 PM EST [facility] PLT 125(L) 140 - 400 K/uL 02/03/2023 4:36 PM EST [facility] MPV 11.9 6.6 - 11.1 fL 02/03/2023 4:36 PM EST [facility]ORY [facility] nRBCs 0 <=0 /100 WBCs 02/03/2023 4:36 PM EST [facility]ORY [facility] Blood Venous blood specimen / Unknown Venipuncture / Unknown 02/03/2023 4:07 PM EST 02/03/2023 4:14 PM EST Kodi Pantoja PA-C LAB BLOOD ORDERABLES LABORATORY [facility] [address] [place] [address] * SURGICAL PATHOLOGY (02/03/2023 1:27 PM EST) Final Diagnosis A. Stomach, gastric mass, biopsy: Consistent with fundic gland polyp Ulcer debris with crush artifact See note Note: Sections show fragments of fundic gland polyp and one ulcer debris, as well as hemorrhage/fibrin deposition. There is a crush artifact on the ulcer debris. AE1/AE3 stain highlights epithelium. P 53 shows wild type staining pattern. H pylori immunostain is negative. There is no definitive evidence of malignancy. Per communication with clinician, the patient will be reexamined. 02/06/2023 9:13 AM EST LABOR[facility]ORY [facility] Clinical History GI bleeding 02/06/2023 9:13 AM EST [facility]ORY [facility] Gross Description A. Stomach. Received in formalin with a container labeled with "Anel Hogue", "[id number]", "1945" and " gastric mass". Received are multiple fragments of gonzalez tissue that range from less than 0.1 cm to 0.4 cm in greatest dimension. The specimen is placed in a biopsy bag and entirely submitted in cassette A1. Gross By: MR 02/06/2023 9:13 AM EST LABOR[facility]ORY [facility] Microscopic Description Microscopic examination performed 02/06/2023 9:13 AM EST [facility] Sign Out Location Pathologist sign out performed at [facility] ([facility] [place] [address]. 02/06/2023 9:13 AM EST LABORATORY [facility] Photographic images and diagrams represent aguillon findings in this case; they are not intended to replace a complete review of the final diagnostic report. The following statement applies to Flow Cytometry, Histology, In situ Hybridization Assays and Molecular Genetics. This test was developed and performed at [facility] and its performance characteristics determined by [facility] [employer]. It has not been cleared or approved by the U.S. Food and Drug Administration. The FDA has determined that such clearance or approval is not necessary. This test is used for clinical purposes. It should not be regarded as investigational or for research. Special stains, including histochemical stains, and studies using immunologic and SHEILA methodology (where applicable) are performed with appropriate positive and negative control reactions. 02/06/2023 9:13 AM EST LABORATORY [facility] [place] Stomach part / Unknown Non-blood Collection / Unknown 02/03/2023 1:27 PM EST 02/03/2023 3:45 PM EST Shiva Pineda MD LAB PATHOLOGY [facility] [address] [place] [address] * UPPER GI ENDOSCOPY (02/03/2023 11:52 AM EST) 02/03/2023 11:5 2 AM EST Narrative Procedure Note Shreyas Lerma DO - 02/03/2023 11:52 AM EST [facility] Patient Name: Anel Hogue Procedure Date: 02/03/2023 11:52 AM Date of : 1945 Admit Type: Inpatient Note Status:Draft Date of : 1945 Admit Type: Inpatient Age: 77 Room: Endo - Room 9 Gender: Female Note Status: Finalized Procedure: Upper GI endoscopy Indications: Hematemesis Providers: Shiva Pineda MD (Doctor), Baljeet Angulo MD(Fellow) Patient Profile: This is a 77 year old female. Refer to note inpatient chart for documentation of history and physical. Referring MD: Shreyas Lerma DO, Jose Daniels DO, Janae Smith DO, Cy Braxton MD Medicines: Monitored Anesthesia Care Complications: No immediate complications. Procedure: Pre-Anesthesia Assessment: - Prior to the procedure, a History and Physicalwas performed, and patient medications and allergies were reviewed. Thepatient is competent. The risks and benefits of the procedure and the sedation optionsand risks were discussed with the patient. All questions were answered and informedconsent was obtained. Patient identification and proposed procedure were verifiedby the physician, the nurse, the anesthesiologist, the proposal editor and thetechnician in the pre-procedure area in the procedure room in the endoscopy suite. MentalStatus Examination: alert and oriented. Airway Examination: normal oropharyngeal airway andneck mobility. Respiratory Examination: clear to auscultation. CV Examination:normal. Prophylactic Antibiotics: The patient does not require prophylacticantibiotics. Prior Anticoagulants: The patient has taken Eliquis (apixaban), last dose was2 days prior to procedure. ASA Grade Assessment: III - A patient with severesystemic disease. After reviewing the risks and benefits, the patient was deemed insatisfactory condition to undergo the procedure. The anesthesia plan was to use monitoredanesthesia care (MAC). Immediately prior to administration of medications,the patient was re-assessed for adequacy to receive sedatives. The heart rate,respiratory rate, oxygen saturations, blood pressure, adequacy of pulmonary ventilation,and response to care were monitored throughout the procedure. The physicalstatus of the patient was re-assessed after the procedure. - The supervising physician was present for theentire procedure from scope insertion until scope withdrawal. After obtaining informed consent, the endoscope waspassed under direct vision. All instruments were visually inspected immediatelybefore and after removal from the patient to ensure they are fully intact. Throughout the procedure, the patient's bloodpressure, pulse, and oxygen saturations were monitored continuously. The [id number] ([id number]) was introduced through the mouth, and advanced to the second part ofduodenum. The [id number] Endoscope ([id number]) was introduced through the mouth, andadvanced to the second part of duodenum. The upper GI endoscopy was accomplishedwithout difficulty. The patient tolerated the procedure well. Findings & Specimens: The examined esophagus was normal. An endoclip was found in the gastric fundus. The padlock that isvisible on x-ray was not clearly seen during this procedure but is thought to be in the same location.There was no sign of bleeding at the site of this prior intervention. A large amount of clotted blood was found on the greater curvature ofthe stomach. Lavage of the area was performed using copious amounts of tap water, followed bydebulking of the clot with a 30mm snare and EndoRotor device, resulting in incomplete clearance with fairvisualization. One non-obstructing cratered gastric ulcer with heaped-up edges withoozing hemorrhage (Dionisio Class Ib) was found on the greater curvature of the stomach. The lesion was40 mm in largest dimension. To stop active bleeding, hemostatic spray was deployed. Two sprays wereapplied. There was no bleeding at the end of the procedure. Estimated blood loss was minimal. Biopsieswere taken with a cold forceps for histology. Verification of patient identification for the specimenwas done by the physician, nurse and pharmaceutical laboratory technician using the patient's name, date and medical recordnumber. The pathology specimen was placed into Bottle A. Estimated blood loss was minimal. The examined duodenum was normal. Impression: - Normal esophagus. - An endoclip was found in the stomach. - Clotted blood in the greater curvature of thestomach. - Non-obstructing gastric ulcer with oozinghemorrhage (Dionisio Class Ib). Hemostatic spray applied. Biopsied. - Normal examined duodenum. Recommendation: - Return patient to ICU for ongoing care. - Repeat upper endoscopy 1-2 days to evaluate theresponse to therapy and for a better look at the ulcer. - Additional recs per inpatient GI consult team Shiva Pineda MD 02/03/2023 1:41:59 PM This report has been signed electronically. Baljeet Angulo MD 02/03/2023 2:38:21 PM Estimated Blood Loss: Estimated blood loss was minimal. Shreyas Lerma DO GASTRO UPPER * XR ABDOMEN 1 VIEW (02/03/2023 9:03 AM EST) Anatomical Region Laterality Modality Abdomen, Pelvis Computed Radiogr aphy 02/03/2023 9:52 AM EST Impressions 02/03/2023 9:49 AM EST IMPRESSION 1. No evidence of pneumoperitoneum. Recommend a CT if there is continued clinical concern. 2. Increased bilateral opacities, likely a combination of edema and atelectasis. Cannot exclude infiltrate in the left midlung or bases. 3. Moderate left and small right pleural effusions. Narrative 02/03/2023 9:49 AM EST EXAM XR ABDOMEN 1 VIEW; XR CHEST 1 VIEW-02/03/2023 9:03 am HISTORY Concern for gastric perforation, eval for free air; ICU admission for GIB, increased oxygen requirement TECHNIQUE Portable frontal views of the chest and upper abdomen were obtained. COMPARISON Chest radiograph 01/24/2023. CT of the abdomen 12/16/2022. FINDINGS Chest: The cardiac silhouette is enlarged. Radiopaque densities again project over a hiatal hernia, suggestive of a prior GI intervention. A left subclavian approach dual chamber cardiac pacemaker is intact and stable in position. There are diffuse interstitial opacities with patchy consolidations in the left mid lung and in both bases. Moderate left and small right pleural effusions. No pneumothorax. Abdomen: Nonobstructive bowel gas pattern. No evidence of pneumoperitoneum. A stent projects over the right side of the abdomen. Procedure Note Cale Jacobo MD - 02/03/2023 EXAM XR ABDOMEN 1 VIEW; XR CHEST 1 VIEW-02/03/2023 9:03 am HISTORY Concern for gastric perforation, eval for free air; ICU admission for GIB,increased oxygen requirement TECHNIQUE Portable frontal views of the chest and upper abdomen were obtained. COMPARISON Chest radiograph 01/24/2023. CT of the abdomen 12/16/2022. FINDINGS Chest: The cardiac silhouette is enlarged. Radiopaque densities againproject over a hiatal hernia, suggestive of a prior GI intervention. Aleft subclavian approach dual chamber cardiac pacemaker is intact andstable in position. There are diffuse interstitial opacities with patchyconsolidations in the left mid lung and in both bases. Moderate left andsmall right pleural effusions. No pneumothorax. Abdomen: Nonobstructive bowel gas pattern. No evidence ofpneumoperitoneum. A stent projects over the right side of the abdomen. IMPRESSION IMPRESSION 1. No evidence of pneumoperitoneum. Recommend a CT if there is continuedclinical concern. 2. Increased bilateral opacities, likely a combination of edema andatelectasis. Cannot exclude infiltrate in the left midlung or bases. 3. Moderate left and small right pleural effusions. Carlee Johnston MD RADIOLOGY (RA D GENERAL) * XR CHEST 1 VIEW (02/03/2023 9:03 AM EST) Anatomical Region Laterality Modality Chest Computed Radiogr aphy 02/03/2023 9:52 AM EST Impressions 02/03/2023 9:49 AM EST IMPRESSION 1. No evidence of pneumoperitoneum. Recommend a CT if there is continued clinical concern. 2. Increased bilateral opacities, likely a combination of edema and atelectasis. Cannot exclude infiltrate in the left midlung or bases. 3. Moderate left and small right pleural effusions. Narrative 02/03/2023 9:49 AM EST EXAM XR ABDOMEN 1 VIEW; XR CHEST 1 VIEW-02/03/2023 9:03 am HISTORY Concern for gastric perforation, eval for free air; ICU admission for GIB, increased oxygen requirement TECHNIQUE Portable frontal views of the chest and upper abdomen were obtained. COMPARISON Chest radiograph 01/24/2023. CT of the abdomen 12/16/2022. FINDINGS Chest: The cardiac silhouette is enlarged. Radiopaque densities again project over a hiatal hernia, suggestive of a prior GI intervention. A left subclavian approach dual chamber cardiac pacemaker is intact and stable in position. There are diffuse interstitial opacities with patchy consolidations in the left mid lung and in both bases. Moderate left and small right pleural effusions. No pneumothorax. Abdomen: Nonobstructive bowel gas pattern. No evidence of pneumoperitoneum. A stent projects over the right side of the abdomen. Procedure Note Cale Jacobo MD - 02/03/2023 EXAM XR ABDOMEN 1 VIEW; XR CHEST 1 VIEW-02/03/2023 9:03 am HISTORY Concern for gastric perforation, eval for free air; ICU admission for GIB,increased oxygen requirement TECHNIQUE Portable frontal views of the chest and upper abdomen were obtained. COMPARISON Chest radiograph 01/24/2023. CT of the abdomen 12/16/2022. FINDINGS Chest: The cardiac silhouette is enlarged. Radiopaque densities againproject over a hiatal hernia, suggestive of a prior GI intervention. Aleft subclavian approach dual chamber cardiac pacemaker is intact andstable in position. There are diffuse interstitial opacities with patchyconsolidations in the left mid lung and in both bases. Moderate left andsmall right pleural effusions. No pneumothorax. Abdomen: Nonobstructive bowel gas pattern. No evidence ofpneumoperitoneum. A stent projects over the right side of the abdomen. IMPRESSION IMPRESSION 1. No evidence of pneumoperitoneum. Recommend a CT if there is continuedclinical concern. 2. Increased bilateral opacities, likely a combination of edema andatelectasis. Cannot exclude infiltrate in the left midlung or bases. 3. Moderate left and small right pleural effusions. Carlee Johnston MD RADIOLOGY (RA D GENERAL) * EKG (02/03/2023 8:41 AM EST) 02/03/2023 8:41 AM EST Narrative Procedure Note Carry, Odin Tucker MD - 02/03/2023 8:41 AM EST REASON FOR STUDY: TRIPONINS CONCLUSIONS: Ventricular-paced rhythm in a pattern of bigeminy Abnormal ECG When compared with ECG of 27-APR-2021 11:55, Electronic pacemaker detected has replaced Junctional rhythm Ventricular Rate: 123 Atrial Rate: 123 QRS Duration: 40 QT/QTc: 140/200 ms P-R-T [place]: 0 : -64 : 124 degrees Carlee Johnston MD EKG [facility] * T4, FREE (02/03/2023 3:51 AM EST) T4, Free 1.5 0.9 - 1.7 ng/dL 02/03/2023 9:36 AM EST LABORATORY C Blood Venous blood specimen / Unknown Venipuncture / Unknown 02/03/2023 3:51 AM EST 02/03/2023 3:58 AM EST Kodi Pantoja PA-C LAB BLOOD ORDERABLES Performing Organization Address [facility] de Phone Number LABORATORY [facility] [address] [place] [address] * (ABNORMAL) TROPONIN T, HIGH SENSITIVITY (02/03/2023 3:51 AM EST) Troponin T, High Sensitivity 112(HH) <=14 ng/L 02/03/2023 4:59 AM EST LABORATORY [facility] Blood Venous blood specimen / Unknown Venipuncture / Unknown 02/03/2023 3:51 AM EST 02/03/2023 3:58 AM EST Kodi Pantoja PA-C LAB BLOOD ORDERABLES Performing Organization Address [facility] Phone Number LABORATORY [address] [address] * CALCIUM, IONIZED (02/03/2023 3:51 AM EST) [facility] Calcium, Ionized 1.13 1.13 - 1.32 mmol/L 02/03/2023 4:29 AM EST LABORATORY [facility] Comment:This test was develo ped and its performance characteristics dtermined by [employer]. It has not been cleared or approved by the [place] Food and Drug Administration Blood Venous blood specimen / Unknown Venipuncture / Unknown 02/03/2023 3:51 AM EST 02/03/2023 3:58 AM EST Kodi Pantoja PA-C LAB BLOOD ORDERABLES Performing Organization Address [facility] Phone Number LABORATORY [place] [address] [place] [address] * PHOSPHORUS (02/03/2023 3:51 AM EST) Phosphorus 3.7 2.5 - 4.8 mg/dL 02/03/2023 4:59 AM EST LAB[facility]ATORY [facility] Blood Venous blood specimen / Unknown Venipuncture / Unknown 02/03/2023 3:51 AM EST 02/03/2023 3:58 AM EST Kodi Pantoja PA-C LAB BLOOD ORDERABLES LABORATORY [facility] [address] [place] [address] * MAGNESIUM (02/03/2023 3:51 AM EST) Magnesium 1.9 1.5 - 2.6 mg/dL 02/03/2023 4:59 AM EST LABORATORY [facility] Blood Venous blood specimen / Unknown Venipuncture / Unknown 02/03/2023 3:51 AM EST 02/03/2023 3:58 AM EST Kodi PIERRE-C LAB BLOOD ORDERABLES Performing Organization Address [facility] Co de Phone Number LABORATORY [facility] [address] [place] [address] * (ABNORMAL) BASIC METABOLIC PANEL (02/03/2023 3:51 AM EST) BUN 27(H) 6 - 20 mg/dL 02/03/2023 4:59 AM EST LABORATORY [facility] Creatinine 0.7 0.5 - 1.0 mg/dL 02/03/2023 4:59 AM EST LABORATORY [facility] Estimated Glomerular Filtration Rate >90 >=60 mL/min 02/03/2023 4:59 AM EST LABORATORY [facility] Comment:eGFR is calculated b ased on the CKD-EPI 2020 equation Sodium 141 135 - 146 mmol/L 02/03/2023 4:59 AM EST LABORATORY [facility] Potassium 4.1 3.5 - 5.1 mmol/L 02/03/2023 4:59 AM EST LABORATORY [facility] Chloride 108(H) 98 - 107 mmol/L 02/03/2023 4:59 AM EST LABORATORY [facility] CO2 24 22 - 32 mmol/L 02/03/2023 4:59 AM EST LABORATORY [facility] Anion Gap 9 7 - 15 mmol/L 02/03/2023 4:59 AM EST LABORATORY [facility] Glucose 112 70 - 120 mg/dL 02/03/2023 4:59 AM EST LABORATORY [facility] Calcium 8.4 8.4 - 10.2 mg/dL 02/03/2023 4:59 AM EST LABORATORY [facility] Blood Venous blood specimen / Unknown Venipuncture / Unknown 02/03/2023 3:51 AM EST 02/03/2023 3:58 AM EST Manjinder Adame MD LAB BLOOD ORDERABLES LABORATORY [facility] [address] [place] [address] * (ABNORMAL) CBC (02/03/2023 3:51 AM EST) WBC 13.06(H) 4.00 - 10.80 K/uL 02/03/2023 4:08 AM EST LABORATORY [facility] RBC 3.31 3.85 - 5.15 M/uL 02/03/2023 4:08 AM EST LABORATORY [facility] HGB 9.7(L) 12.0 - 15.3 g/dL 02/03/2023 4:08 AM EST LABORATORY [facility] HCT 31.2(L) 36.0 - 45.2 % 02/03/2023 4:08 AM EST LABORATORY [facility] MCV 94.3 81.5 - 97.5 fL 02/03/2023 4:08 AM EST LABORATORY [facility] MCH 29.3 27.0 - 34.0 pg 02/03/2023 4:08 AM EST LABORATORY [facility] MCHC 31.1 32.0 - 36.0 g/dL 02/03/2023 4:08 AM EST LABORATORY [facility] RDW 16.7 11.5 - 15.5 % 02/03/2023 4:08 AM EST LABORATORY [facility] PLT 141 140 - 400 K/uL 02/03/2023 4:08 AM EST LABORATORY [facility] MPV 11.4 6.6 - 11.1 fL 02/03/2023 4:08 AM EST LABORATORY [facility] nRBCs 0 <=0 /100 WBCs 02/03/2023 4:08 AM EST LABORATORY [facility] Blood Venous blood specimen / Unknown Venipuncture / Unknown 02/03/2023 3:51 AM EST 02/03/2023 3:58 AM EST Kodi Pantoja PA-C LAB BLOOD ORDERABLES Performing Organization Address [facility] Co de Phone Number LABORATORY [facility] [address] [place] [address] * (ABNORMAL) TSH WITH FREE T4 IF INDICATED (02/03/2023 3:51 AM EST) TSH 10.30(H) 0.27 - 4.20 uIU/mL 02/03/2023 5:44 AM EST LABORATORY [facility] Blood Venous blood specimen / Unknown Venipuncture / Unknown 02/03/2023 3:51 AM EST 02/03/2023 3:58 AM EST Kodi Pantoja PA-C LAB BLOOD ORDERABLES Performing Organization Address [facility] Co de Phone Number LABORATORY [facility] [address] [place] [address] * CORTISOL (02/03/2023 3:51 AM EST) Pathologist [facility] Cortisol 16.3 2.5 - 19.5 ug/dL 02/03/2023 5:44 AM EST LABORATORY [facility] Comment: AM Reference Range: 4.8 - 19.5 ug/dL PM Reference Range: 2.5 - 11.9 ug/dL Blood Venous blood specimen / Unknown Venipuncture / Unknown 02/03/2023 3:51 AM EST 02/03/2023 3:58 AM EST Kodi Pantoja PA-C LAB BLOOD ORDERABLES Performing Organization Address City/[facility] Co de Phone Number LABORATORY [facility] [address] [place] [address] * CULTURE, URINE, QUANTITATIVE (02/03/2023 2:38 AM EST) Pathologist [facility] Culture Growth No significant growth 02/04/2023 7:32 AM EST LABORATORY [facility] Urine Urine specimen / Unknown Non-blood Collection / Unknown 02/03/2023 2:38 AM EST 02/03/2023 3:08 AM EST Kodi Pantoja PA-C LAB MICRO - GENERAL ORDERABLES LABORATORY [facility] [address] [place] [address] * (ABNORMAL) URINALYSIS, REFLEX TO MICROSCOPIC (02/03/2023 2:38 AM EST) Color, Urine Light Yellow Colorless, Light Yellow, Yellow, Dark Yellow 02/03/2023 3:37 AM EST LABORATORY [facility] Clarity, Urine Clear Clear 02/03/2023 3:37 AM EST LABORATORY [facility] Glucose, Urine Negative Negative mg/dL 02/03/2023 3:37 AM EST LAB[facility]ATORY [facility] Bilirubin, Urine Negative Negative 02/03/2023 3:37 AM EST LAB[facility]ATORY [facility] Ketone, Urine Negative Negative mg/dL 02/03/2023 3:37 AM EST LABORATORY [facility] Specific [place], Urine 1.049(H) 1.003 - 1.030 02/03/2023 3:37 AM EST LABORATORY [facility] Blood, Urine Trace(A) Negative 02/03/2023 3:37 AM EST LABORATORY [facility] pH, Urine 6.0 5.0 - 7.5 Units 02/03/2023 3:37 AM EST LAB[facility]ATORY [facility] Protein, Urine Trace(A) Negative mg/dL 02/03/2023 3:37 AM EST LABORATORY [facility] Urobilinogen, Urine Normal Normal mg/dL 02/03/2023 3:37 AM EST LABORATORY [facility] Nitrite, Urine Negative Negative 02/03/2023 3:37 AM EST LAB[facility]ATORY [facility] Esterase, Urine Small(A) Negative 02/03/2023 3:37 AM EST LAB[facility]ATORY [facility] RBC, Urine 3-5(A) 0 - 2 /HPF 02/03/2023 3:37 AM EST LABORATORY [facility] WBC, Urine 6-9(A) 0 - 2 /HPF 02/03/2023 3:37 AM EST LABORATORY [facility] Bacteria, Urine 26-50(A) 0 - 25 /HPF 02/03/2023 3:37 AM EST LABORATORY [facility] Urine Non-blood Collection / Unknown 02/03/2023 2:38 AM EST 02/03/2023 3:08 AM EST Kodi Pantoja PA-C LAB URINE ORDERABLES Performing Organization Address [facility] de Phone Number LABORATORY [facility] [address] [place] [address] * TEG (THROMBOELASTOGRAPH), HEPARINASE (02/02/2023 11:43 PM EST) Reaction Time 4.8 2.5 - 8.3 minutes 02/03/2023 1:20 AM EST LABORATORY [facility] Kinetics Time 1.3 0.5 - 3.7 minutes 02/03/2023 1:20 AM EST LABORATORY [facility] Alpha Angle 71.5 46.8 - 78.4 degrees 02/03/2023 1:20 AM EST LAB[facility]ATORY [facility] Maximum Amplitude 62.7 50.6 - 72.5 mm 02/03/2023 1:20 AM EST LAB[facility]ATORY [facility] Coagulation Index 1.7 -3.0 - 3.0 02/03/2023 1:20 AM EST LABORATORY [facility] Percent Lysis 30 1.4 0.0 - 7.5 % 023 1:20 AM EST LABORATORY [facility] Comment:This is an appended report. These results have been appended to a previously preliminary verified report. Blood Venous blood specimen / Unknown Venipuncture / Unknown 02/02/2023 11:43 PM EST 02/02/2023 11:52 PM EST Kodi Pantoja PA-C LAB BLOOD ORDERABLES Performing Organization Address [facility] de Phone Number LABORATORY [facility] [address] [place] [address] * TEG (THROMBOELASTOGRAPH) (02/02/2023 11:43 PM EST) Reaction Time 4.5 2.5 - 8.3 minutes 02/03/2023 1:20 AM EST LABORATORY [facility] Kinetics Time 1.4 0.5 - 3.7 minutes 02/03/2023 1:20 AM EST LABORATORY [facility] Alpha Angle 70.2 46.8 - 78.4 degrees 02/03/2023 1:20 AM EST LAB[facility]ATORY [facility] Maximum Amplitude 61.5 50.6 - 72.5 mm 02/03/2023 1:20 AM EST LAB[facility]ATORY [facility] Coagulation Index 1.6 -3.0 - 3.0 02/03/2023 1:20 AM EST LABORATORY [facility] Percent Lysis 30 0.5 0.0 - 7.5 % 023 1:20 AM EST LABORATORY [facility] Comment:This is an appended report. These results have been appended to a previously preliminary verified report. Blood Venous blood specimen / Unknown Venipuncture / Unknown 02/02/2023 11:43 PM EST 02/02/2023 11:52 PM EST Narrative LAB[facility]ATORY [facility] - 02/03/2023 1:20 AM EST If R time > 20 minutes and no clot formed suggesting hypocoagulable state or interfering substance (anticoagulation). Consider resubmitting a new sample and/or checking PT/INR, aPTT, fibrinogen, and platelet count. Kodi Pantoja PA-C LAB BLOOD ORDERABLES Performing Organization Address [facility] Co de Phone Number LABORATORY [address] [address] * CALCIUM, IONIZED (02/02/2023 11:43 PM EST) Calcium, Ionized 1.14 1.13 - 1.32 mmol/L 02/03/2023 1:06 AM EST LABORATORY [facility] Comment:This test was develo ped and its performance characteristics dtermined by [employer]. It has not been cleared or approved by the [place] Food and Drug Administration Blood Venous blood specimen / Unknown Venipuncture / Unknown 02/02/2023 11:43 PM EST 02/02/2023 11:53 PM EST Kodi Leonel Kit PA-C LAB BLOOD ORDERABLES Performing Organization Address City/[facility] Co de Phone Number LABORATORY [address] [address] * PHOSPHORUS (02/02/2023 11:43 PM EST) Phosphorus 3.8 2.5 - 4.8 mg/dL 02/03/2023 12:29 AM EST LABORATORY [facility] Blood Venous blood specimen / Unknown Venipuncture / Unknown 02/02/2023 11:43 PM EST 02/02/2023 11:53 PM EST Kodi PIERRE-C LAB BLOOD ORDERABLES LABORATORY [facility] [address] [place] [address] * MAGNESIUM (02/02/2023 11:43 PM EST) Magnesium 2.0 1.5 - 2.6 mg/dL 02/03/2023 12:29 AM EST LABORATORY GM Blood Venous blood specimen / Unknown Venipuncture / Unknown 02/02/2023 11:43 PM EST 02/02/2023 11:53 PM EST Kodi PIERRE-C LAB BLOOD ORDERABLES Performing Organization Address [facility]/ZIP Co de Phone Number LABORATORY [facility] [address] [place] [address] * (ABNORMAL) BASIC METABOLIC PANEL (02/02/2023 11:43 PM EST) BUN 23(H) 6 - 20 mg/dL 02/03/2023 12:29 AM EST LABORATORY [facility] Creatinine 0.7 0.5 - 1.0 mg/dL 02/03/2023 12:29 AM EST LABORATORY [facility] Estimated Glomerular Filtration Rate 87 >=60 mL/min 02/03/2023 12:29 AM EST LABORATORY C Comment:eGFR is calculated b ased on the CKD-EPI 2020 equation Sodium 140 135 - 146 mmol/L 02/03/2023 12:29 AM EST LABORATORY [facility] Potassium 4.2 3.5 - 5.1 mmol/L 02/03/2023 12:29 AM EST LABORATORY [facility] Chloride 106 98 - 107 mmol/L 02/03/2023 12:29 AM EST LAB[facility]ATORY [facility] CO2 25 22 - 32 mmol/L 02/03/2023 12:29 AM EST LABORATORY [facility] Anion Gap 9 7 - 15 mmol/L 02/03/2023 12:29 AM EST LABORATORY [facility] Glucose 113 70 - 120 mg/dL 02/03/2023 12:29 AM EST LABORATORY [facility] Calcium 8.3(L) 8.4 - 10.2 mg/dL 02/03/2023 12:29 AM EST LABORATORY [facility] Blood Venous blood specimen / Unknown Venipuncture / Unknown 02/02/2023 11:43 PM EST 02/02/2023 11:53 PM EST Manjinder Adame MD LAB BLOOD ORDERABLES Performing Organization Address City/State/[facility] Co de Phone Number LABORATORY [facility] [address] [place] [address] * (ABNORMAL) CBC (02/02/2023 11:43 PM EST) WBC 8.36 4.00 - 10.80 K/uL 02/03/2023 12:10 AM EST LABORATORY [facility] RBC 3.20 3.85 - 5.15 M/uL 02/03/2023 12:10 AM EST LABORATORY [facility] HGB 9.3(L) 12.0 - 15.3 g/dL 02/03/2023 12:10 AM EST LABORATORY [facility] HCT 30.1(L) 36.0 - 45.2 % 02/03/2023 12:10 AM EST LABORATORY [facility] MCV 94.1 81.5 - 97.5 fL 02/03/2023 12:10 AM EST LAB[facility]ATORY [facility] MCH 29.1 27.0 - 34.0 pg 02/03/2023 12:10 AM EST LAB[facility]ATORY [facility] MCHC 30.9 32.0 - 36.0 g/dL 02/03/2023 12:10 AM EST LABORATORY [facility] RDW 16.8 11.5 - 15.5 % 02/03/2023 12:10 AM EST LABORATORY [facility] PLT 125(L) 140 - 400 K/uL 02/03/2023 12:10 AM EST LAB[facility]ATORY [facility] MPV 11.5 6.6 - 11.1 fL 02/03/2023 12:10 AM EST LABORATORY [facility] nRBCs 0 <=0 /100 WBCs 02/03/2023 12:10 AM EST LAB[facility]ATORY [facility] Blood Venous blood specimen / Unknown Venipuncture / Unknown 02/02/2023 11:43 PM EST 02/02/2023 11:53 PM EST Kodi SAENZC LAB BLOOD ORDERABLES Performing Organization Address City/[facility]/ZIP Co de Phone Number LABORATORY [facility] [address] [place] [address] * (ABNORMAL) BNP, NT-PRO (02/02/2023 11:43 PM EST) BNP, NT-Pro 6,933(H) <300 pg/mL 02/03/2023 12:29 AM EST LAB[facility]ORY [facility] Blood Venous blood specimen / Unknown Venipuncture / Unknown 02/02/2023 11:43 PM EST 02/02/2023 11:53 PM EST Narrative LAB[facility]ORY [facility] - 02/03/2023 12:29 AM EST Exclude Heart Failure: <300 pg/mL Diagnose Heart Failure: Age <50 yr: >450 pg/mL 50-75 yr: >900 pg/mL >75 yr: >1800 pg/mL GFR is 30-59 mL/min: >1200 pg/mL or Age-adjusted values GFR <30 mL/min: do not use, not reliable Prognostic threshold: 1000 pg/mL Kodi SAENZC LAB BLOOD ORDERABLES Performing Organization Address [facility] Co de Phone Number LABORATORY [place] [address] [place] [address] * (ABNORMAL) TROPONIN T, HIGH SENSITIVITY (02/02/2023 11:43 PM EST) Troponin T, High Sensitivity 116(HH) <=14 ng/L 02/03/2023 12:29 AM EST LABORATORY [facility] Blood Venous blood specimen / Unknown Venipuncture / Unknown 02/02/2023 11:43 PM EST 02/02/2023 11:53 PM EST Kodi PIERRE-C LAB BLOOD ORDERABLES LABORATORY [place] [address] [place] [address] * LACTATE,WHOLE BLOOD (02/02/2023 11:43 PM EST) Pathologist [facility] Lactate, Whole Blood 1.8 0.4 - 2.0 mmol/L 02/02/2023 11:58 PM EST LABOR[facility]ORY [facility] Blood Venous blood specimen / Unknown Venipuncture / Unknown 02/02/2023 11:43 PM EST 02/02/2023 11:53 PM EST Kodi Pantoja PA-C LAB BLOOD ORDERABLES [facility] [address] [place] [address] * (ABNORMAL) HEPATIC FUNCTION PANEL (02/02/2023 11:43 PM EST) [facility] Albumin 2.9(L) 3.8 - 5.0 g/dL 02/03/2023 12:29 AM EST [facility] AST 33 10 - 35 U/L 02/03/2023 12:29 AM EST [facility] Alkaline Phosphatase 74 35 - 130 U/L 02/03/2023 12:29 AM EST [facility] ALT 18 10 - 35 U/L 02/03/2023 12:29 AM EST [facility] Bilirubin, Total 0.6 <=1.2 mg/dL 02/03/2023 12:29 AM EST [facility] Bilirubin, Direct 0.3 0.0 - 0.3 mg/dL 02/03/2023 12:29 AM EST [facility] Protein 6.4 6.0 - 8.3 g/dL 02/03/2023 12:29 AM EST [facility] Blood Venous blood specimen / Unknown Venipuncture / Unknown 02/02/2023 11:43 PM EST 02/02/2023 11:53 PM EST Kodi Pantoja PA-C LAB BLOOD ORDERABLES [facility] [address] [place] [address] * APTT (02/02/2023 11:43 PM EST) Pathologist [facility] aPTT 29 21 - 38 seconds 02/03/2023 12:18 AM EST [facility] Blood Venous blood specimen / Unknown Venipuncture / Unknown 02/02/2023 11:43 PM EST 02/02/2023 11:53 PM EST Narrative [facility] - 02/03/2023 12:18 AM EST Anticoagulation may affect testing. Refer to [employer] Test Catalog for a list of effects. Kodi SAENZC LAB BLOOD ORDERABLES Performing Organization Address City/[facility]/ZIP Co de Phone Number [facility] [address] [place] [address] * (ABNORMAL) PT INR (02/02/2023 11:43 PM EST) Prothrombin Time 16.5(H) 11.6 - 15.2 seconds 02/03/2023 12:17 AM EST [facility] INR 1.3(H) 0.8 - 1.2 02/03/2023 12:17 AM EST [facility] [place] Venous blood specimen / Unknown Venipuncture / Unknown 02/02/2023 11:43 PM EST 02/02/2023 11:53 PM EST Narrative [facility] [place] 02/03/2023 12:17 AM EST Warfarin Therapy INR: 2.0-3.0 conventional anticoagulation INR: 2.5-3.5 high intensity anticoagulation Kodi PIERRE-C LAB BLOOD ORDERABLES Performing Organization Address City/[facility]/ZIP Co de Phone Number LABORATORY [place] [address] [place] [address] * TYPE AND SCREEN (02/02/2023 11:43 PM EST) ABO O 02/03/2023 12:40 AM EST [facility] Rh Positive 02/03/2023 12:40 AM EST [facility] Red Blood Cell Antibody Screen Negative 02/03/2023 12:40 AM EST [facility] Specimen Expiration Date 02/05/2023 23:59 02/03/2023 12:40 AM EST [facility] Blood Venous blood specimen / Unknown Venipuncture / Unknown 02/02/2023 11:43 PM EST 02/02/2023 11:53 PM EST Kodi Pantoja PA-C LAB BLOOD BANK TEST ORDERABLES [facility] [address] [place] [address] documented in this encounter Visit Diagnoses Diagnosis Acute gastric ulcer with hemorrhage- Primary Acute gastric ulcer with hemorrhage, without mention of obstruction Upper GI bleed Hemorrhage of gastrointestinal tract, unspecified Chest pain Chest pain, unspecified Troponin level elevated Other abnormal blood chemistry Chronic or unspecified gastric ulcer with hemorrhage [K25.4] Presence of other specified devices [Z97.8] Acute blood loss anemia Acute posthemorrhagic anemia Cardiac amyloidosis (HCC) Other amyloidosis Chronic diastolic congestive heart failure (HCC) Chronic diastolic heart failure Gastric ulcer without hemorrhage or perforation, unspecified chronicity Upper GI bleed Hemorrhage of gastrointestinal tract, unspecified Acute blood loss anemia Acute posthemorrhagic anemia Hemorrhagic shock (HCC) Other shock without mention of trauma Chronic diastolic congestive heart failure (HCC) Chronic diastolic heart failure Cardiac amyloidosis (HCC) Other amyloidosis Multiple myeloma not having achieved remission (HCC) Multiple myeloma, without mention of having achieved remission Choledocholithiasis Calculus of bile duct without mention of cholecystitis or obstruction documented in this encounter Administered Medications Inactive Administered Medications - up to 3 most recent administrations Medication Order MAR Action Action Date Dose Rate Site Acetaminophen (Ofirmev) inj 1,000 mg 1,000 mg, Intravenous, ONCE, 1 dose, On Fri02/05/23 at 1815, Administer over 15 Minutes, Administer undiluted over 15 minutes! NOTE: Maximum of 4000 mg per 24 hours of acetaminophen from all acetaminophen containing products., Indication: Patient is experiencing severe nausea and vomiting New Bag 02/05/2023 6:42 PM EST 1,000 mg 400 mL/hr Acyclovir (Zovirax) tab 400 mg 400 mg, Oral, BID (.AM/PM), First dose on 02/03/23 at 0900, Until Discontinued Given 02/04/2023 8:56 AM EST 400 mg Given 02/03/2023 9:03 PM EST 400 mg Acyclovir (Zovirax) tab 400 mg 400 mg, Oral, BID (.AM/PM), First dose (after last reorder) on Fri02/04/23 at 2100, Until Discontinued Given 02/08/2023 9:33 AM EST 400 mg Given 02/07/2023 9:43 PM EST 400 mg Given 02/07/2023 8:45 AM EST 400 mg amiodarone (Cordarone) tab 200 mg 200 mg, Oral, BID (.AM/PM), First dose on Fri02/03/23 at 0900, Until Discontinued Given 02/08/2023 9:33 AM EST 200 mg Given 02/07/2023 9:43 PM EST 200 mg Given 02/07/2023 8:45 AM EST 200 mg chlorHEXIDINE (Periogard) 0.12 % oral rinse 15 mL 15 mL, Oral mucosal membrane, BID (799,1999), First dose on Fri02/03/23 at 0800, Until Discontinued, Include oral/gum/tooth brushing with medication. Use prepackaged oral kit suction tooth brush if available. Given 02/07/2023 8:44 AM EST 15 mL Given 02/06/2023 7:56 PM EST 15 mL Given 02/06/2023 8:36 AM EST 15 mL Furosemide (Lasix) inj 40 mg 40 mg, IV Push, ONCE, On Fri02/03/23 at 1045, For 1 dose Given 02/03/2023 10:46 AM EST 40 mg Furosemide (Lasix) inj 40 mg 40 mg, IV Push, ONCE, On 02/07/23 at 1200, For 1 dose Given 02/07/2023 1:37 PM EST 40 mg Furosemide (Lasix) inj 60 mg 60 mg, IV Push, ONCE, On Vonnie 02/06/23 at 0830, For 1 dose Given 02/06/2023 8:35 AM EST 60 mg Furosemide (Lasix) inj 60 mg 60 mg, IV Push, ONCE, On 02/08/23 at 1330, For 1 dose Given 02/08/2023 1:18 PM EST 60 mg isolyte-S pH 7.4 infusion Intravenous, at 25 mL/hr, for Inpatient patient Plasma-LYTE 148, isolyte-S, and isolyte-S pH 7.4 are considered equivalent - including for MAR barcode scanning., CONTINUOUS, Starting on Fri02/03/23 at 1200, Until Fri02/03/23 at 1614, Pre-Op New Bag 02/03/2023 12:00 PM EST 25 mL/hr 25 mL/hr isolyte-S pH 7.4 infusion Intravenous, at 50 mL/hr, Plasma-LYTE 148, isolyte-S, and isolyte-S pH 7.4 are considered equivalent - including for MAR barcode scanning., CONTINUOUS, Starting on Fri02/03/23 at 1630, Until Fri02/04/23 at 1429 New Bag 02/03/2023 6:19 PM EST 50 mL/hr isolyte-S pH 7.4 infusion Intravenous, at 25 mL/hr, for Inpatient patient Plasma-LYTE 148, isolyte-S, and isolyte-S pH 7.4 are considered equivalent - including for MAR barcode scanning., CONTINUOUS, Starting on Fri02/06/23 at 1300, Until Vonnie 02/06/23 at 1929, Pre-Op Restarted 02/06/2023 1:16 PM EST Continue from Pre-Op 02/06/2023 1:01 PM EST 25 mL/hr New Bag 02/06/2023 12:31 PM EST 25 mL/hr 25 mL/hr levothyroxine (Levoxyl) tab 50 mcg 50 mcg, Oral, [id number], First dose on Fri02/03/23 at 0630, Until Discontinued Given 02/08/2023 5:43 AM EST 50 mcg Given 02/07/2023 5:59 AM EST 50 mcg Given 02/06/2023 6:11 AM EST 50 mcg metoclopramide (Reglan) inj 10 mg 10 mg, IV Push, ONCE, On Fri02/04/23 at 0945, For 1 dose Given 02/04/2023 12:21 PM EST 10 mg midodrine HCl (Proamatine) tab 2.5 mg 2.5 mg, Oral, TID(AM/NOON/HS), First dose on Fri02/03/23 at 0000, Until Discontinued Given 02/08/2023 1:18 PM EST 2.5 mg Given 02/08/2023 5:43 AM EST 2.5 mg Given 02/07/2023 9:43 PM EST 2.5 mg omeprazole (PriLOSEC) cap 40 mg 40 mg, Oral, BID (.AM/PM), First dose on Vonnie 02/06/23 at 2100, Until Discontinued, This med should NOT be Crushed or Chewed Given 02/08/2023 9:33 AM EST 40 mg Given 02/07/2023 9:43 PM EST 40 mg Given 02/07/2023 8:45 AM EST 40 mg ondansetron (Zofran) inj 4 mg 4 mg, IV Push, Q6H PRN Nausea, Vomiting, Starting on Fri02/03/23 at 0058, Until 02/08/23 at 2057, Place QTc on monitor, hold for QTc > 500 ms Given 02/06/2023 9:33 PM EST 4 mg Given 02/06/2023 4:44 AM EST 4 mg Given 02/05/2023 5:14 PM EST 4 mg Oral Hygiene: Mouth Swab with dentifrice Oral, Q4H LIMITED (00;04;12;16), First dose on Fri02/03/23 at 0000, Until Discontinued, To be used with 1.5% hydrogen peroxide solution or 0.05% cetylpyridium chloride oral rinse Given 02/07/2023 6:07 PM EST 1 Ki t Given 02/07/2023 1:37 PM EST 1 Kit Given 02/07/2023 5:59 AM EST 1 Kit oxygen GAS Inhalation, OXYGEN, First dose on Fri02/03/23 at 1600, Until Discontinued, Device/Managed by: Low Flow Device, Goal SPO2 (%): 91-95, Starting Device: Nasal Cannula, Inital Flow Rate (LPM): 2, Lowest Support: Nasal Cannula: Flow 0-6 LPM. Titrate up/down by 1 LPM., Higher Support: Non-Rebreather (NRB) Mask: Minimum of 10 LPM. Titrate to maintain bag inflation., Titration Interval: Q2 minutes and as needed., Notify Provider: For sudden DECREASE in resting SPO2 to less than 85% and when escalating delivery device. Oxygen On 02/08/2023 8:00 AM EST Oxygen On 02/07/2023 4:00 PM EST Oxygen On 02/07/2023 8:00 AM EST oxygen GAS Inhalation, OXYGEN, First dose on Vonnie 02/06/23 at 1600, Until Discontinued, Device/Managed by: Low Flow Device, Goal SPO2 (%): 91-95, Starting Device: Nasal Cannula, Inital Flow Rate (LPM): 2, Lowest Support: Nasal Cannula: Flow 0-6 LPM. Titrate up/down by 1 LPM., Higher Support: Non-Rebreather (NRB) Mask: Minimum of 10 LPM. Titrate to maintain bag inflation., Titration Interval: Q2 minutes and as needed., Notify Provider: For sudden DECREASE in resting SPO2 to less than 85% and when escalating delivery device. Oxygen On 02/08/2023 8:00 AM EST Oxygen On 02/08/2023 12:00 AM EST Oxygen On 02/07/2023 4:00 PM EST Pantoprazole (Protonix) 80 mg in NSS 500 mL INFUSION Intravenous, at 50 mL/hr, CONTINUOUS, Starting on Fri02/02/23 at 2315, Until Fri02/03/23 at 1219 New Bag 02/03/2023 9:26 AM EST 8 mg/h r 50 mL/hr New Bag 02/02/2023 10:55 PM EST 8 mg/hr 50 mL/hr Pantoprazole (Protonix) inj 40 mg 40 mg, IV Push, Q12H, First dose on Fri02/03/23 at 2100, Until Discontinued, IV push instructions: Flush I.V. Line before and after administration. In-line filter not required. 2-minute infusion: The volume of reconstituted solution (4mg/ml) to be injected may be administered intravenously over at least 2 minutes. ( Dilute each vial with 10 ml of 0.9% saline PF) Given 02/06/2023 8:36 AM EST 40 mg Given 02/05/2023 9:26 PM EST 40 mg Given 02/05/2023 8:50 AM EST 40 mg potassium and sodium phosphate (Phos-Nak) oral powder 2 Packet 2 Packet, Oral, ONCE, On Fri02/05/23 at 0745, For 1 dose, Mix 1 packet in 2.5 ounces (75 mL) of water, stir well and administer promptly. 1 packet contains Phosphorus 250 mg (~8 mMoles) + potassium 280 mg (~7.125 mEq) + sodium 160mg (~7.125 mEq) Given 02/05/2023 8:50 AM EST 2 Packets potassium and sodium phosphate (Phos-Nak) oral powder 2 Packet 2 Packet, Oral, ONCE, On Fri02/07/23 at 1200, For 1 dose, Mix 1 packet in 2.5 ounces (75 mL) of water, stir well and administer promptly. 1 packet contains Phosphorus 250 mg (~8 mMoles) + potassium 280 mg (~7.125 mEq) + sodium 160mg (~7.125 mEq) Given 02/07/2023 1:37 PM EST 2 Packets potassium chloride ER tab 40 mEq 40 mEq, Oral, ONCE, On Fri02/08/23 at 0945, For 1 dose, This med should NOT be Crushed or Chewed Given 02/08/2023 9:33 AM EST 40 mEq potassium CHLORide liquid 40 mEq 40 mEq, Oral, ONCE, On Fri02/05/23 at 1700, For 1 dose, To avoid GI irritation, must further diilute 15 ml in 3 ounces H2O or other fluid Given 02/05/2023 5:00 PM EST 40 mEq potassium phosphate 15 mmol in NSS 250 mL (K phos) ivpb 15 mmol, Peripheral IV, ONCE, 1 dose, On Fri02/05/23 at 1815 New Bag 02/05/2023 7:45 PM EST 15 mmol 11 2 mL/hr sodium chloride 0.9 % flush peripheral jossy 3 mL 3 mL, IV Push, Q8H, First dose on Fri02/02/23 at 2315, Until Discontinued, Do not flush if lock, PICC, or central line not in place; IV infusing or unable to flush. Given 02/08/2023 2:00 PM EST 3 mL Given 02/08/2023 5:43 AM EST 3 mL Given 02/07/2023 9:43 PM EST 3 mL Sucralfate (Carafate) susp 1,000 mg 1,000 mg (1 g), Oral, QID(AM/NOON/PM/HS), First dose on Fri02/03/23 at 0000, Until Discontinued, Shake well! Given 02/08/2023 1:18 PM EST 1,000 mg Given 02/08/2023 5:43 AM EST 1,000 mg Given 02/07/2023 9:43 PM EST 1,000 mg documented in this encounter Active and Recently Administered Medications Times are shown in EST. Scheduled Medication Order 02/06/2023 02/07/2023 02/08/2023 Acyclovir (Zovirax) tab 400 mg 400 mg, Oral, BID (.AM/PM), First dose (after last reorder) on Fri02/04/23 at 2100, Until Discontinued 0836 (Given - Provider: Monica Wood RN)1999 (Given - Provider: Richie Parker RN) 844 (Given - Provider: Char Jesus RN)2142 (Given - Provider: Nestor Hernandez, RAYMOND) 932 (Given - Provider: Char Jesus RN) amiodarone (Cordarone) tab 200 mg 200 mg, Oral, BID (.AM/PM), First dose on Fri02/03/23 at 0900, Until Discontinued 0836 (Given - Provider: Monica Wood RN)1999 (Given - Provider: Richie Parker RN) 844 (Given - Provider: Char Jesus RN)2142 (Given - Provider: Nestor Hernandez RN) 932 (Given - Provider: Char Jesus RN) chlorHEXIDINE (Periogard) 0.12 % oral rinse 15 mL (CANCELED) 15 mL, Oral mucosal membrane, BID (), First dose on Fri02/03/23 at 0800, Until Discontinued, Include oral/gum/tooth brushing with medication. Use prepackaged oral kit suction tooth brush if available. 0836 (Given - Provider: Monica Wood RN)1955 (Given - Provider: Richie Parker RN) 0844 (Given - Provider: Char Jesus RN)1999 (Not Given - Provider: Nestor Hernandez RN - Reason: Order Discontinued) Furosemide (Lasix) inj 40 mg (COMPLETED) 40 mg, IV Push, ONCE, On Fri02/07/23 at 1200, For 1 dose 1337 (Given - Provider: Char Jesus RN) Furosemide (Lasix) inj 60 mg (COMPLETED) 60 mg, IV Push, ONCE, On Vonnie 02/06/23 at 0830, For 1 dose 0835 (Given - Provider: Monica Wood RN) Furosemide (Lasix) inj 60 mg (COMPLETED) 60 mg, IV Push, ONCE, On 02/08/23 at 1330, For 1 dose 1318 (Given - Provider: Char Jesus RN) levothyroxine (Levoxyl) tab 50 mcg 50 mcg, Oral, [id number], First dose on Fri02/03/23 at 0630, Until Discontinued 0611 (Given - Provider: Richie Parker RN) 0559 (Given - Provider: Lesley Melgoza, RAYMOND) 0543 (Given - Provider: Nestor Hernandez RN) midodrine HCl (Proamatine) tab 2.5 mg 2.5 mg, Oral, TID(AM/NOON/HS), First dose on Fri02/03/23 at 0000, Until Discontinued 0611 (Given - Provider: Richie Parker RN)1135 (Given - Provider: Monica Wood RN)2113 (Given - Provider: Richie Parker RN) 0559 (Given - Provider: Lesley Melgoza RN)1336 (Given - Provider: Char Jesus RN)2143 (Given - Provider: Nestor Hernandez RN) 0543 (Given - Provider: Nestor Hernandez RN)1318 (Given - Provider: Char Jesus RN) omeprazole (PriLOSEC) cap 40 mg 40 mg, Oral, BID (.AM/PM), First dose on Vonnie 02/06/23 at 2100, Until Discontinued, This med should NOT be Crushed or Chewed 1999 (Given - Provider: Richie Parker RN) 0845 (Given - Provider: Char Jesus RN)214 (Given - Provider: Nestor Hernandez RN) 0933 (Given - Provider: Char Jesus RN) Oral Hygiene: Mouth Swab with dentifrice (CANCELED) Oral, Q4H LIMITED (00;04;12;16), First dose on Fri02/03/23 at 0000, Until Discontinued, To be used with 1.5% hydrogen peroxide solution or 0.05% cetylpyridium chloride oral rinse 0400 (Not Given - Provider: Richie Reigle, RN - Reason: Refused-Notify Provider)1136 (Given - Provider: Monica Wood RN)1600 (Given - Provider: Ramya Morales, RAYMOND) 0000 (Not Given - Provider: Richie Parker RN - Reason: Refused-Notify Provider)0559 (Given - Provider: Lesley Melgoza RN)1337 (Given - Provider: Char Jesus, RN)1807 (Given - Provider: Char Jesus RN) oxygen GAS Inhalation, OXYGEN, First dose on Fri02/03/23 at 1600, Until Discontinued, Device/Managed by: Low Flow Device, Goal SPO2 (%): 91-95, Starting Device: Nasal Cannula, Inital Flow Rate (LPM): 2, Lowest Support: Nasal Cannula: Flow 0-6 LPM. Titrate up/down by 1 LPM., Higher Support: Non-Rebreather (NRB) Mask: Minimum of 10 LPM. Titrate to maintain bag inflation., Titration Interval: Q2 minutes and as needed., Notify Provider: For sudden DECREASE in resting SPO2 to less than 85% and when escalating delivery device. 0000 (Oxygen Off - Provider: Richie Parker RN)0800 (Oxygen Off - Provider: Monica Wood RN)1600 (Oxygen On - Provider: Ramya Morales RN) 0000 (Oxygen On - Provider: Richie Parker RN)0800 (Oxygen On - Provider: Char Jesus RN)1600 (Oxygen On - Provider: Char Jesus RN) 0000 (Oxygen Off - Provider: Nestor Hernandez RN)0800 (Oxygen On - Provider: Char Jesus RN)1600 (Due) oxygen GAS Inhalation, OXYGEN, First dose on Vonnie 02/06/23 at 1600, Until Discontinued, Device/Managed by: Low Flow Device, Goal SPO2 (%): 91-95, Starting Device: Nasal Cannula, Inital Flow Rate (LPM): 2, Lowest Support: Nasal Cannula: Flow 0-6 LPM. Titrate up/down by 1 LPM., Higher Support: Non-Rebreather (NRB) Mask: Minimum of 10 LPM. Titrate to maintain bag inflation., Titration Interval: Q2 minutes and as needed., Notify Provider: For sudden DECREASE in resting SPO2 to less than 85% and when escalating delivery device. 1600 (Entry Error - Provider: Ramya Morales RN) 0000 (Oxygen On - Provider: Richie Parker RN)0800 (Oxygen On - Provider: Char Jesus RN)1600 (Oxygen On - Provider: Char Jesus RN) 0000 (Oxygen On - Provider: Nestor Hernandez RN)0800 (Oxygen On - Provider: Char Jesus RN)1600 (Due) Pantoprazole (Protonix) inj 40 mg (CANCELED) 40 mg, IV Push, Q12H, First dose on 02/03/23 at 2100, Until Discontinued, IV push instructions: Flush I.V. Line before and after administration. In-line filter not required. 2-minute infusion: The volume of reconstituted solution (4mg/ml) to be injected may be administered intravenously over at least 2 minutes. ( Dilute each vial with 10 ml of 0.9% saline PF) 0836 (Given - Provider: Monica Wood RN) potassium and sodium phosphate (Phos-Nak) oral powder 2 Packet (COMPLETED) 2 Packet, Oral, ONCE, On Fri02/07/23 at 1200, For 1 dose, Mix 1 packet in 2.5 ounces (75 mL) of water, stir well and administer promptly. 1 packet contains Phosphorus 250 mg (~8 mMoles) + potassium 280 mg (~7.125 mEq) + sodium 160mg (~7.125 mEq) 1337 (Given - Provider: Char Jesus RN) potassium chloride ER tab 40 mEq (COMPLETED) 40 mEq, Oral, ONCE, On Fri02/08/23 at 0945, For 1 dose, This med should NOT be Crushed or Chewed 0933 (Given - Provider: Char Jesus RN) sodium chloride 0.9 % flush peripheral jossy 3 mL 3 mL, IV Push, Q8H, First dose on Fri02/02/23 at 2315, Until Discontinued, Do not flush if lock, PICC, or central line not in place; IV infusing or unable to flush. 0612 (Given - Provider: Richie Parker RN)1450 (Given - Provider: Monica Wood RN)2113 (Given - Provider: Richie Parker RN) 0605 (Given - Provider: Lesley Melgoza, RAYMOND)1337 (Given - Provider: Char Jesus RN)2143 (Given - Provider: Nestor Hernandez RN) 0543 (Given - Provider: Nestor Hernandez RN)1400 (Given - Provider: Char Jesus, RAYMOND) Sucralfate (Carafate) susp 1,000 mg 1,000 mg (1 g), Oral, QID(AM/NOON/PM/HS), First dose on Fri02/03/23 at 0000, Until Discontinued, Shake well! 0611 (Given - Provider: Richie Parker RN)1200 (OR/Procedure - Provider: Monica Wood RN)1731 (Given - Provider: Ramya Morales RN)2112 (Given - Provider: Richie Parker RN) 0559 (Given - Provider: Lesley Melgoza RN)1336 (Given - Provider: Char Jesus RN)1800 (Given - Provider: Char Jesus RN)2143 (Given - Provider: Nestor Hernandez RN) 0543 (Given - Provider: Nestor Hernandez RN)1318 (Given - Provider: Char Jesus RN) Continuous Medication Order 02/06/2023 02/07/2023 02/08/2023 isolyte-S pH 7.4 infusion (CANCELED) Intravenous, at 25 mL/hr, for Inpatient patient Plasma-LYTE 148, isolyte-S, and isolyte-S pH 7.4 are considered equivalent - including for MAR barcode scanning., CONTINUOUS, Starting on Vonnie 02/06/23 at 1300, Until Fri02/06/23 at 1929, Pre-Op 1231 (New Bag - Provider: Mell Pryor RN)1301 (Continue from Pre-Op - Provider: Valentina Lau CRNA)1315 (Paused - Provider: Valentina Lau CRNA - Comment: Switch to gravity)1316 (Restarted - Provider: Valentina Lau CRNA) PRN Medication Order 02/06/2023 02/07/2023 02/08/2023 ondansetron (Zofran) inj 4 mg 4 mg, IV Push, Q6H PRN Nausea, Vomiting, Starting on 02/03/23 at 0058, Until 02/08/23 at 2057, Place QTc on monitor, hold for QTc > 500 ms 0444 (Given - Provider: Richie Parker, RAYMOND)2133 (Given - Provider: Richie Parker RN) documented in this encounter Advance Directives Latest Code Status on File Code Status Date Activated Date Inactivated Comments Full Code 02/02/2023 10:32 PM 02/08/2023 8:57 PM Thi s order reflects the patients wishes and were consensually agreed upon. Question Answer Comments Discussion of Advance Directives occurred with: Patient Care Teams Rn Allergy Relationship Specialty Start Date End Date Rosendo Boyce DO [address] [place] [address] PCP - General Family Medicine 06/28/16 documented as of this encounter
--- OUTSIDE RECORDS SUMMARY | 2023-02-15 00:31 | External Medical Summary ---
Author Name Unknown Address Unknown Organization [id number][place] [facility] [place] [facility] [address] Laboratory Report Ordering Provider Test Date Status DUNIA CASTELLANO 02/07/2023 07:40:00 Final Observation Date Value Abnormality Reference (Units ) Status WBC, Total 02/07/2023 07:40:00 6.64 4.00-10.80 (K/uL) Final RBC 02/07/2023 07:40:00 3.33 3.85-5.15 (M/uL) Final Hemoglobin 02/07/2023 07:40:00 9.8 Below low normal 12.0-15.3 (g/dL) Final HCT 02/07/2023 07:40:00 32.0 Below low normal 36.0-45.2 (%) Final MCV 02/07/2023 07:40:00 96.1 81.5-97.5 (fL) Final MCH 02/07/2023 07:40:00 29.4 27.0-34.0 (pg) Final MCHC 02/07/2023 07:40:00 30.6 32.0-36.0 (g/dL) Final RDW 02/07/2023 07:40:00 17.2 11.5-15.5 (%) Final Platelets 02/07/2023 07:40:00 196 140-400 (K/uL) Final MPV 02/07/2023 07:40:00 11.5 6.6-11.1 (fL) Final Nucleated erythrocytes/100 leukocytes [Ratio] in Blood by Automated count 02/07/2023 07:40:00 0 <=0 (/100 WBCs) Final Performing Location [facility] [place] [facility] [address]
--- OUTSIDE RECORDS SUMMARY | 2023-02-15 00:31 | External Medical Summary ---
Author Name Unknown Address Unknown Organization [id number]:[facility] [place] [facility] [place][note 2] [address] [facility] [address] Laboratory Report Ordering Provider Test Date Status DUNIA CASTELLANO 02/08/2023 07:54:00 Final Observation Date Value Abnormality Reference (Units ) Status BUN 02/08/2023 07:54:00 15 6-20 (mg/dL) Final Creatinine 02/08/2023 07:54:00 0.7 0.5-1.0 (mg/dL) Final Glomerular filtration rate/1.73 sq M.predicted [Volume Rate/Area] in Serum, Plasma or Blood by Creatinine-based formula (CKD-EPI) 02/08/2023 07:54:00 >90 >=60 (mL/min) Final eGFR is calculated based on the CKD-EPI 2020 equation SODIUM 02/08/2023 07:54:00 137 135-146 (m mol/L) Final Potassium 02/08/2023 07:54:00 3.4 Below low normal 3.5 -5.1 (mmol/L) Final Cl 02/08/2023 07:54:00 104 98-107 (mm ol/L) Final CO2 02/08/2023 07:54:00 25 22-32 (mmo l/L) Final Anion gap 02/08/2023 07:54:00 8 7-15 (mmol /L) Final Glucose 02/08/2023 07:54:00 104 70-120 (mg /dL) Final Calcium 02/08/2023 07:54:00 8.3 Below low normal 8.4 -10.2 (mg/dL) Final Performing Location [facility] [place] [address] [place] [address]
--- OUTSIDE RECORDS SUMMARY | 2023-02-15 00:31 | External Medical Summary ---
Author Name Unknown Address Unknown Organization [id number][facility] [address] [place] [address] Laboratory Report Ordering Provider Test Date Status BRITTNY PERRY 02/06/2023 06:33:00 Final Observation Date Value Abnormality Reference (Units ) Status Phosphate 02/06/2023 06:33:00 2.9 2.5-4.8 (m g/dL) Final Performing Location [facility] [address] [place] [address]
--- OUTSIDE RECORDS SUMMARY | 2023-02-15 00:31 | External Medical Summary ---
Author Name Unknown Address Unknown Organization [id number]:[facility] [place] [facility] [place] [address] [place] [address] Laboratory Report Ordering Provider Test Date Status DUNIA CASTELLANO 02/07/2023 07:40:00 Final Observation Date Value Abnormality Reference (Units ) Status BUN 02/07/2023 07:40:00 16 6-20 (mg/dL) Final Creatinine 02/07/2023 07:40:00 0.6 0.5-1.0 (mg/dL) Final Glomerular filtration rate/1.73 sq M.predicted [Volume Rate/Area] in Serum, Plasma or Blood by Creatinine-based formula (CKD-EPI) 02/07/2023 07:40:00 >90 >=60 (mL/min) Final eGFR is calculated based on the CKD-EPI 2020 equation SODIUM 02/07/2023 07:40:00 139 135-146 (m mol/L) Final Potassium 02/07/2023 07:40:00 3.6 3.5-5.1 (m mol/L) Final Cl 02/07/2023 07:40:00 106 98-107 (mm ol/L) Final CO2 02/07/2023 07:40:00 25 22-32 (mmo l/L) Final Anion gap 02/07/2023 07:40:00 8 7-15 (mmol /L) Final Glucose 02/07/2023 07:40:00 96 70-120 (mg /dL) Final Calcium 02/07/2023 07:40:00 8.3 Below low normal 8.4 -10.2 (mg/dL) Final Performing Location [facility] [place] [facility] [place] [address]
--- OUTSIDE RECORDS SUMMARY | 2023-02-15 00:31 | External Medical Summary ---
Author Name Unknown Address Unknown Organization [id number]:[facility] [address] [place] [address] Laboratory Report Ordering Provider Test Date Status BRITTNY PERRY 02/06/2023 06:33:00 Final Observation Date Value Abnormality Reference (Units ) Status Magnesium 02/06/2023 06:33:00 2.4 1.5-2.6 (m g/dL) Final Performing Location [facility] - [address] [place] [address]
--- OUTSIDE RECORDS SUMMARY | 2023-02-15 00:31 | External Medical Summary ---
Author Name Unknown Address Unknown Organization [id number]:[facility]ATORY [facility] [place] - [facility] [address] Laboratory Report Ordering Provider Test Date Status DUNIA CASTELLANO 02/08/2023 07:54:00 Final Observation Date Value Abnormality Reference (Units ) Status WBC, Total 02/08/2023 07:54:00 8.15 4.00-10.80 (K/uL) Final RBC 02/08/2023 07:54:00 3.24 3.85-5.15 (M/uL) Final Hemoglobin 02/08/2023 07:54:00 9.4 Below low normal 12.0-15.3 (g/dL) Final HCT 02/08/2023 07:54:00 31.4 Below low normal 36.0-45.2 (%) Final MCV 02/08/2023 07:54:00 96.9 81.5-97.5 (fL) Final MCH 02/08/2023 07:54:00 29.0 27.0-34.0 (pg) Final MCHC 02/08/2023 07:54:00 29.9 32.0-36.0 (g/dL) Final RDW 02/08/2023 07:54:00 17.2 11.5-15.5 (%) Final Platelets 02/08/2023 07:54:00 191 140-400 (K/uL) Final MPV 02/08/2023 07:54:00 11.2 6.6-11.1 (fL) Final Nucleated erythrocytes/100 leukocytes [Ratio] in Blood by Automated count 02/08/2023 07:54:00 0 <=0 (/100 WBCs) Final Performing Location LABORATORY [facility] [place] - [facility] [address] [place], [place] [address]
--- OUTSIDE RECORDS SUMMARY | 2023-02-15 00:31 | External Medical Summary ---
Author Name Unknown Address Unknown Organization K01:LABORATORY [address] [address] Laboratory Report Ordering Provider Test Date Status ABDELRAHMANALLYSON 02/06/2023 06:33:00 Final Observation Date Value Abnormality Reference (Units ) Status WBC, Total 02/06/2023 06:33:00 9.32 4.00-10.80 (K/uL) Final RBC 02/06/2023 06:33:00 3.35 3.85-5.15 (M/uL) Final Hemoglobin 02/06/2023 06:33:00 9.9 Below low normal 12.0-15.3 (g/dL) Final HCT 02/06/2023 06:33:00 32.9 Below low normal 36.0-45.2 (%) Final MCV 02/06/2023 06:33:00 98.2 81.5-97.5 (fL) Final MCH 02/06/2023 06:33:00 29.6 27.0-34.0 (pg) Final MCHC 02/06/2023 06:33:00 30.1 32.0-36.0 (g/dL) Final RDW 02/06/2023 06:33:00 17.2 11.5-15.5 (%) Final Platelets 02/06/2023 06:33:00 218 140-400 (K/uL) Final MPV 02/06/2023 06:33:00 11.7 6.6-11.1 (fL) Final Nucleated erythrocytes/100 leukocytes [Ratio] in Blood by Automated count 02/06/2023 06:33:00 0 <=0 (/100 WBCs) Final Performing Location [facility] [place] [facility] [address] [facility] [address]
--- OUTSIDE RECORDS SUMMARY | 2023-02-15 00:31 | External Medical Summary ---
Author Name Unknown Address Unknown Organization K01:[facility] [address] [place] [address] Laboratory Report Ordering Provider Test Date Status BRITTNY PERRY 02/07/2023 07:40:00 Final Observation Date Value Abnormality Reference (Units ) Status Magnesium 02/07/2023 07:40:00 2.2 1.5-2.6 (m g/dL) Final Performing Location [facility] - [address] [place] [address]
--- OUTSIDE RECORDS SUMMARY | 2023-02-15 00:32 | External Medical Summary ---
Author Name Unknown Address Unknown Organization K01:LABORATORY [address] [address] Laboratory Report Ordering Provider Test Date Status ABDELRAHMANALLYSON 02/04/2023 19:46:00 Final Observation Date Value Abnormality Reference (Units ) Status WBC, Total 02/04/2023 19:46:00 10.45 4.00-10.80 (K/uL) Final RBC 02/04/2023 19:46:00 3.09 3.85-5.15 (M/uL) Final Hemoglobin 02/04/2023 19:46:00 9.0 Below low normal 12.0-15.3 (g/dL) Final HCT 02/04/2023 19:46:00 30.3 Below low normal 36.0-45.2 (%) Final MCV 02/04/2023 19:46:00 98.1 81.5-97.5 (fL) Final MCH 02/04/2023 19:46:00 29.1 27.0-34.0 (pg) Final MCHC 02/04/2023 19:46:00 29.7 32.0-36.0 (g/dL) Final RDW 02/04/2023 19:46:00 16.6 11.5-15.5 (%) Final Platelets 02/04/2023 19:46:00 160 140-400 (K/uL) Final MPV 02/04/2023 19:46:00 11.9 6.6-11.1 (fL) Final Nucleated erythrocytes/100 leukocytes [Ratio] in Blood by Automated count 02/04/2023 19:46:00 0 <=0 (/100 WBCs) Final Performing Location [facility] [place] [address] [place], [place] [address]jose [facility] [address]
--- OUTSIDE RECORDS SUMMARY | 2023-02-15 00:32 | External Medical Summary | Summary of Care ---
Author Name Unknown Organization [facility] Address [address] [place] [address] Phone [phone] Care Team Providers Care Electrician Supervisor Airplane Name Role Phone Rosendo Boyce DO Primary Care Provider Encounter Details Date Type Department Care Team (Latest Contact Info) Description 01/27/2023 1:40 PM EDT - 01/27/2023 3:24 PM EDT Hospital Encounter Radiology Film File [address] [place] [address] Discharge Disposition: Home - Self Care Allergies Active Allergy Reactions Criticality Noted Date Comments Pollen 01/24/2017 Ferrous Sulfate 03/08/2019 Couldn't tolerate Ferrous sulfate pills, but can take 1 a day vitamins Torsemide 03/06/2021 Itching documented as of this encounter (statuses as of 02/04/2023) Medications Medication Sig Dispensed Refills Start Date End Date Status Vitamin B-12 1000 MCG Oral Tablet Take 1 Tablet by mouth in the morning. 0 Suspended Ondansetron HCl 8 MG Oral Tablet (Zofran)Indicatio ns:Cardiac amyloidosis (HCC) Take 1 Tab by mouth every 8 hours as needed for Nausea. 30 Tab 0 07/14/2020 Suspended Additional Information Juice Plus Fibre Oral Liquid Take 4 Tabs by mouth daily. 0 Suspended Vitamin D-3 25 MCG (1000 UT) Oral Capsule Take 1 Capsule by mouth in the morning. 0 Suspended Prochlorperazine Maleate 10 MG Oral Tablet (Compazine)Indica tions:Cardiac amyloidosis (HCC) Take by mouth 1 Tablet every 6 hours as needed for Nausea. 60 Tablet 2 06/28/2021 Suspended Additional Information Fluticasone Propionate 50 MCG/ACT Nasal SuspensionIndicat ions:Chronic rhinitis (2) sprays each nostril once daily -for nasal congestion 18.2 mL 5 08/16/2021 Suspended Additional Information Famotidine 20 MG Oral Tablet (Pepcid) Take 1 Tablet by mouth in the morning and 1 Tablet before bedtime. 0 Suspended Acyclovir 400 MG Oral Tablet (Zovirax)Indicati ons:Cardiac amyloidosis (HCC),Multiple myeloma not having achieved remission (HCC) Take by mouth 1 Tablet in the morning AND 1 Tablet before bedtime. 30 Tablet 5 11/23/2021 Suspended Additional Information Nitroglycerin 0.4 MG Sublingual Tablet Sublingual (Nitrostat) Place 1 Tablet under the tongue every 5 minutes as needed for Pain, Chest. 0 10/23/2021 Suspended Sucralfate 1 GM/10ML Oral Suspension (Carafate) Take 10 mL by mouth in the morning and 10 mL at noon and 10 mL in the evening and 10 mL before bedtime. 420 mL 5 04/19/2022 Suspended Additional Information Polyethylene Glycol 3350 17 GM/SCOOP Oral Powder (Miralax) TAKE 17 GRAMS DIRECTED DAILY NEEDED FOR CONSTIPATION 255 g 0 06/24/2022 Suspended Additional Information Spironolactone 25 MG Oral Tablet (Aldactone)Indica tions:Chronic diastolic congestive heart failure (HCC) Take 1 Tablet by mouth in the morning. 90 Tablet 0 06/24/2022 Suspended Additional Information predniSONE 10 MG Oral Tablet (Deltasone) Take 1 Tablet by mouth in the morning. 40mg daily x 1 day then 30mg daily x 2 days then 20mg daily x 2 days, then 10mg daily x 2 days then stop.. 0 11/25/2022 Suspended guaiFENesin ER 1200 MG Oral Tablet Extended Release 12 Hour Take 600 mg by mouth in the morning and 600 mg in the evening. 0 Suspended Pantoprazole Sodium 40 MG Oral Tablet Delayed Release (Protonix)Indicat ions:Gastric ulcer without hemorrhage or perforation, unspecified chronicity Take 1 Tablet by mouth in the morning. 60 Tablet 5 01/20/2023 Suspended Additional Information Amiodarone HCl 200 MG Oral Tablet (Cordarone)Indica tions:Tachy-walker syndrome (HCC) Take 1 Tablet by mouth in the morning and 1 Tablet before bedtime. 60 Tablet 5 01/20/2023 Suspended Additional Information Midodrine HCl 2.5 MG Oral Tablet (Proamatine)Indic ations:Tachy-ivet y syndrome (HCC) Take 1 Tablet by mouth in the morning and 1 Tablet at noon and 1 Tablet before bedtime. 90 Tablet 5 01/20/2023 Suspended Additional Information Levothyroxine Sodium 50 MCG Oral Tablet (Levoxyl) Take 1 Tablet by mouth in the morning. (at least 30 min prior to breakfast or other meds). 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 JAQUAN (generalized anxiety disorder) 07/06/2018 07/15/2018 NO KNOWN PROBLEMS 07/31/2007 08/02/2017 documented as of this encounter (statuses as of 02/04/2023) Immunizations Name Administration Dates Next Due COVID-19 [...] on file documented as of this encounter Plan of Treatment Upcoming Encounters Date Type Department Care Team (Latest Contact Info) Description 02/28/2023 11:45 AM EST Cardiac Studies Cardiology, [facility] [address] [facility] [place] [address] [facility] [address] [facility] [place] [address] 03/12/2023 9:57 AM EST Hospital Encounter OR GL, Operating Room, [facility] - 4th Floor [address] [place] [address] Hope Stuart MD [address] [place] [address] 03/12/2023 9:57 AM EST - 03/12/2023 11:19 AM EST Surgery OR GL, Operating Room, [facility] - 4th Floor [address] [place] [address] Hope Stuart MD [address] [place] [address] ESOPHAGOGASTRODUODENOSCOPY (EGD), FLEXIBLE, TRANSORAL, ENDOSCOPIC ULTRASOUND Scheduled Procedures Name Priority Associated Diagnoses Date/Ti ut ESOPHAGOGASTRODUODENOSCOPY ( EGD), FLEXIBLE, TRANSORAL, ENDOSCOPIC ULTRASOUND [...] this encounter Medical Devices Implanted Type Area Emotional Support Teacher Device Identifier Shelf Expiration Date Model / Serial / Lot Lens Intraoc 17.0 - [id number] - [id number] Implanted:Qty: 1 on 02/01/2020 by Jossue Mancera MD at OR [facility] Right: Eye [employer] LOM[employer] 05/28/2024 [id number] / [id number] / [id number] Lens Intraoc 17.5 - [id number] - [id number] Implanted:Qty: 1 on 02/10/2020 by Jossue Mancera MD at OR [facility] Left: Eye BAUSCH [employer] LOMB 01/29/2024 [id number] / [id number] / [id number] documented as of this encounter Procedures Procedure Name Priority Date/Time Associated Diagnosis Comments RADIOLOGY EXAM - GENERAL RAD (IMAGES ONLY,NO REPORT) Routine 01/27/2023 1:40 PM EDT documented in this encounter Results * RADIOLOGY EXAM - GENERAL RAD (IMAGES ONLY,NO REPORT) (01/27/2023 1:40 PM EDT) 01/27/2023 1:37 PM EDT Narrative Scheduling, Silent - 02/03/2023 5:01 PM EST This is an imaging study not interpreted or resulted by a [facility] or [facility] contracted radiologist. Rosendo Boyce DO RADIOLOGY (RAD GENE RAL) documented in this encounter Advance Directives Latest Code Status on File Code Status Date Activated Date Inactivated Comments Full Code 02/02/2023 10:32 PM This orde r reflects the patients wishes and were consensually agreed upon. Question Answer Comments Discussion of Advance Directives occurred with: Patient Care Teams Electrician Supervisor Airplane Relationship Specialty Start Date End Date Rosendo Boyce DO [address] [place] [address] PCP - General Family Medicine 06/28/16 documented as of this encounter
--- OUTSIDE RECORDS SUMMARY | 2023-02-15 00:32 | External Medical Summary ---
Author Name Unknown Address Unknown Organization K01:[facility] [place] [address] [place] [address] Laboratory Report Ordering Provider Test Date Status ALLYSON QUICK 02/06/2023 06:33:00 Final Warfarin Therapy
INR: 2 .0-3.0 conventional anticoagulation
INR: 2.5- 3.5 high intensity anticoagulation Observation Date Value Abnormality Reference (Units ) Status PT 02/06/2023 06:33:00 15.1 11.6-15.2 (seconds) Final INR 02/06/2023 06:33:00 1.2 0.8-1.2 Final Performing Location LAB[facility]ATORY [facility] [place] [address] [place] [address]
--- OUTSIDE RECORDS SUMMARY | 2023-02-15 00:32 | External Medical Summary ---
Author Name Unknown Address Unknown Organization K01:LABORATORY [facility] [place] - [facility] [place] [address] [place] [address] Laboratory Report Ordering Provider Test Date Status ALLYSON QUICK 02/05/2023 22:08:00 Final Observation Date Value Abnormality Reference (Units ) Status BUN 02/05/2023 22:08:00 21 Above high normal 6-20 (mg/dL) Final Creatinine 02/05/2023 22:08:00 0.7 0.5-1.0 (mg/dL) Final Glomerular filtration rate/1.73 sq M.predicted [Volume Rate/Area] in Serum, Plasma or Blood by Creatinine-based formula (CKD-EPI) 02/05/2023 22:08:00 >90 >=60 (mL/min) Final eGFR is calculated based on the CKD-EPI 2020 equation SODIUM 02/05/2023 22:08:00 137 135-146 (m mol/L) Final Potassium 02/05/2023 22:08:00 4.5 3.5-5.1 (m mol/L) Final Cl 02/05/2023 22:08:00 104 98-107 (mm ol/L) Final CO2 02/05/2023 22:08:00 24 22-32 (mmo l/L) Final Anion gap 02/05/2023 22:08:00 9 7-15 (mmol /L) Final Glucose 02/05/2023 22:08:00 112 70-120 (mg /dL) Final Calcium 02/05/2023 22:08:00 8.2 Below low normal 8.4 -10.2 (mg/dL) Final Albumin 02/05/2023 22:08:00 3.1 Below low normal 3.8 -5.0 (g/dL) Final Phosphate 02/05/2023 22:08:00 3.7 2.5-4.8 (m g/dL) Final Performing Location LABORATORY [facility] [place] - [address] [place] [address]
--- OUTSIDE RECORDS SUMMARY | 2023-02-15 00:32 | External Medical Summary ---
Author Name Unknown Address Unknown Organization K01:LABORATORY [facility] [address] [facility] [address] Laboratory Report Ordering Provider Test Date Status BRITTNY PERRY 02/05/2023 06:11:00 Final Observation Date Value Abnormality Reference (Units ) Status Calcium.ionized [Moles/volume] in Serum or Plasma by Ion-selective membrane electrode (ISE) 02/05/2023 06:11:00 1.17 1.13-1.32 (mmol/L) Final This test was developed and its performance characteristics dtermined by [employer]. It has not been cleared or approved by the [place] Food and Drug Administration Performing Location LAB[facility]ATORY [place] [address] [address] [facility] [address] [facility] [address]
--- OUTSIDE RECORDS SUMMARY | 2023-02-15 00:32 | External Medical Summary | Summary of Care ---
Author Name Unknown Organization [facility] Address [address] [place] [address] Phone [phone] Care Team Providers Care First Press Operator Name Role Phone Rosendo Boyce DO Primary Care Provider Encounter Details Date Type Department Care Team (Latest Contact Info) Description 01/27/2023 4:25 PM EDT - 01/27/2023 11:59 PM EDT Hospital Encounter Radiology Film File [address] [place] [address] Discharge Disposition: Home - Self [...] 02/28/2023 11:45 AM EST Cardiac Studies Cardiology, [facility] [address] [facility] [place] [address] [facility] [address] [facility] [place] [address] 03/12/2023 9:57 AM EST Hospital Encounter OR GL, Operating Room, [facility] - 4th Floor [address] [place] [address] Hope Stuart MD [address] [place] [address] 03/12/2023 9:57 AM EST - 03/12/2023 11:19 AM EST Surgery OR GL, Operating Room, [facility] - 4th Floor [address] [place] [address] Hope Stuart MD [address] [place] [address] ESOPHAGOGASTRODUODENOSCOPY (EGD), FLEXIBLE, TRANSORAL, ENDOSCOPIC ULTRASOUND Scheduled Procedures Name Priority Associated Diagnoses Date/Ti or ESOPHAGOGASTRODUODENOSCOPY ( EGD), FLEXIBLE, TRANSORAL, ENDOSCOPIC ULTRASOUND [...] this encounter Medical Devices Implanted Type Area Machine Spring Former Device Identifier Shelf Expiration Date Model / Serial / Lot Lens Intraoc 17.0 - [id number] - [id number] Implanted:Qty: 1 on 02/01/2020 by Jossue Mancera MD at OR [facility] Right: Eye BAUSCH [employer] LOM[employer] 05/28/2024 [id number] / [id number] / [id number] Lens Intraoc 17.5 - [id number] - [id number] Implanted:Qty: 1 on 02/10/2020 by Jossue Mancera MD at OR [facility] Left: Eye BAUSCH & LOMB 01/29/2024 [id number] / [id number] / [id number] documented as of this encounter Procedures Procedure Name Priority Date/Time Associated Diagnosis Comments RADIOLOGY EXAM - GENERAL RAD (IMAGES ONLY,NO REPORT) Routine 01/27/2023 4:25 PM EDT documented in this encounter Results * RADIOLOGY EXAM - GENERAL RAD (IMAGES ONLY,NO REPORT) (01/27/2023 4:25 PM EDT) 01/27/2023 4:25 PM EDT Narrative Scheduling, Silent - 02/03/2023 4:57 PM EST This is an imaging study not interpreted or resulted by a [facility] or [facility] contracted radiologist. Rosendo Boyce DO RADIOLOGY (RAD GENE RAL) documented in this encounter Advance Directives Latest Code Status on File Code Status Date Activated Date Inactivated Comments Full Code 02/02/2023 10:32 PM This orde r reflects the patients wishes and were consensually agreed upon. Question Answer Comments Discussion of Advance Directives occurred with: Patient Care Teams First Press Operator Relationship Specialty Start Date End Date Rosendo Boyce DO [address] [place] [address] PCP - General Family Medicine 06/28/16 documented as of this encounter
--- OUTSIDE RECORDS SUMMARY | 2023-02-15 00:32 | External Medical Summary ---
Author Name Unknown Address Unknown Organization K01:LABORATORY C - [address] [place] [address] Laboratory Report Ordering Provider Test Date Status BRITTNY PERRY 02/05/2023 06:11:00 Final Observation Date Value Abnormality Reference (Units ) Status Phosphate 02/05/2023 06:11:00 2.3 Below low normal 2.5 -4.8 (mg/dL) Final Performing Location [facility] - [address] [place] [address]
--- OUTSIDE RECORDS SUMMARY | 2023-02-15 00:32 | External Medical Summary ---
Author Name Unknown Address Unknown Organization K01:LABORATORY [facility] [address] [facility] [address] Laboratory Report Ordering Provider Test Date Status BRITTNY PERRY 02/06/2023 06:33:00 Final Observation Date Value Abnormality Reference (Units ) Status Calcium.ionized [Moles/volume] in Serum or Plasma by Ion-selective membrane electrode (ISE) 02/06/2023 06:33:00 1.15 1.13-1.32 (mmol/L) Final This test was developed and its performance characteristics dtermined by [employer] It has not been cleared or approved by the [place] Food and Drug Administration Performing Location LABORATORY [place] [address] [address] [facility] [address]
--- OUTSIDE RECORDS SUMMARY | 2023-02-15 00:32 | External Medical Summary ---
Author Name Unknown Address Unknown Organization K01:[place] [facility] [place] [facility] [address] [facility] [address] [place] [address] Laboratory Report Ordering Provider Test Date Status BRITTNY PERRY 02/05/2023 06:11:00 Final Observation Date Value Abnormality Reference (Units ) Status BUN 02/05/2023 06:11:00 27 Above high normal 6-20 (mg/dL) Final Creatinine 02/05/2023 06:11:00 0.8 0.5-1.0 (mg/dL) Final Glomerular filtration rate/1.73 sq M.predicted [Volume Rate/Area] in Serum, Plasma or Blood by Creatinine-based formula (CKD-EPI) 02/05/2023 06:11:00 80 >=60 (mL/min) Final eGFR is calculated based on the CKD-EPI 2020 equation SODIUM 02/05/2023 06:11:00 139 135-146 (m mol/L) Final Potassium 02/05/2023 06:11:00 3.4 Below low normal 3.5 -5.1 (mmol/L) Final Cl 02/05/2023 06:11:00 105 98-107 (mm ol/L) Final CO2 02/05/2023 06:11:00 27 22-32 (mmo l/L) Final Anion gap 02/05/2023 06:11:00 7 7-15 (mmol /L) Final Glucose 02/05/2023 06:11:00 94 70-120 (mg /dL) Final Calcium 02/05/2023 06:11:00 8.5 8.4-10.2 ( mg/dL) Final Performing Location [place] [facility] [place] [address] [place] [address]
--- OUTSIDE RECORDS SUMMARY | 2023-02-15 00:32 | External Medical Summary ---
Author Name Unknown Address Unknown Organization K01:LABORATORY [address] [address] Laboratory Report Ordering Provider Test Date Status MARCIANO QUICKRona 02/05/2023 22:08:00 Final Observation Date Value Abnormality Reference (Units ) Status WBC, Total 02/05/2023 22:08:00 7.45 4.00-10.80 (K/uL) Final RBC 02/05/2023 22:08:00 3.20 3.85-5.15 (M/uL) Final Hemoglobin 02/05/2023 22:08:00 9.5 Below low normal 12.0-15.3 (g/dL) Final HCT 02/05/2023 22:08:00 31.0 Below low normal 36.0-45.2 (%) Final MCV 02/05/2023 22:08:00 96.9 81.5-97.5 (fL) Final MCH 02/05/2023 22:08:00 29.7 27.0-34.0 (pg) Final MCHC 02/05/2023 22:08:00 30.6 32.0-36.0 (g/dL) Final RDW 02/05/2023 22:08:00 16.6 11.5-15.5 (%) Final Platelets 02/05/2023 22:08:00 184 140-400 (K/uL) Final MPV 02/05/2023 22:08:00 11.8 6.6-11.1 (fL) Final Nucleated erythrocytes/100 leukocytes [Ratio] in Blood by Automated count 02/05/2023 22:08:00 0 <=0 (/100 WBCs) Final Performing Location LABORATORY [facility] [place] - [address] [facility] [address]
--- OUTSIDE RECORDS SUMMARY | 2023-02-15 00:32 | External Medical Summary | Summary of Care ---
Author Name Unknown Organization [facility] Address [address] [facility] [place] [address] Phone [phone] Care Team Providers Care Line Leader Name Role Phone Rosendo Boyce DO Primary Care Provider Encounter Details Date Type Department Care Team (Latest Contact Info) Description 02/01/2023 7:00 AM EDT - 02/01/2023 11:59 PM EDT Hospital Encounter Radiology Film File [address] [place] [address] Arrived Discharge Disposition: Home - Self Care Allergies [...] AM EST Cardiac Studies Cardiology, [facility] [address] [facility] [place] [address] [facility] 132 [facility] [place] [address] 03/12/2023 9:57 AM EST Hospital Encounter OR GL, Operating Room, [facility] - 4th Floor [address] [place] [address] Hope Stuart MD [address] [place] [address] 03/12/2023 9:57 AM EST - 03/12/2023 11:19 AM EST Surgery OR GL, Operating Room, [facility] - 4th Floor [address] [place] [address] Hope Stuart MD [address] [place] [address] ESOPHAGOGASTRODUODENOSCOPY (EGD), FLEXIBLE, TRANSORAL, ENDOSCOPIC ULTRASOUND Scheduled Procedures Name Priority Associated Diagnoses Date/Ti ok ESOPHAGOGASTRODUODENOSCOPY ( EGD), FLEXIBLE, TRANSORAL, ENDOSCOPIC ULTRASOUND [...] this encounter Medical Devices Implanted Type Area Command And Control Device Identifier Shelf Expiration Date Model / Serial / Lot Lens Intraoc 17.0 - [id number] - [id number] Implanted:Qty: 1 on 02/01/2020 by Jossue Mancera MD at OR [facility] Right: Eye BAUSCH & LOMB 05/28/2024 [id number] / [id number] / [id number] Lens Intraoc 17.5 - [id number] - [id number] Implanted:Qty: 1 on 02/10/2020 by Jossue Mancera MD at OR [facility] Left: Eye BAUSCH & LOMB 01/29/2024 [id number] / [id number] / [id number] documented as of this encounter Procedures Procedure Name Priority Date/Time Associated Diagnosis Comments RADIOLOGY EXAM - GENERAL RAD (IMAGES ONLY,NO REPORT) Routine 02/01/2023 7:00 AM EDT documented in this encounter Results * RADIOLOGY EXAM - GENERAL RAD (IMAGES ONLY,NO REPORT) (02/01/2023 7:00 AM EDT) 02/01/2023 6:56 AM EDT Narrative Scheduling, Silent - 02/03/2023 4:56 PM EST This is an imaging study not interpreted or resulted by a [facility] or [employer] contracted radiologist. Rosendo Boyce DO RADIOLOGY (RAD GENE RAL) documented in this encounter Advance Directives Latest Code Status on File Code Status Date Activated Date Inactivated Comments Full Code 02/02/2023 10:32 PM This orde r reflects the patients wishes and were consensually agreed upon. Question Answer Comments Discussion of Advance Directives occurred with: Patient Care Teams Line Leader Relationship Specialty Start Date End Date Rosendo Boyce DO [address] [place] [address] PCP - General Family Medicine 06/28/16 documented as of this encounter
--- OUTSIDE RECORDS SUMMARY | 2023-02-15 00:32 | External Medical Summary | Summary of Care ---
Author Name Unknown Organization [facility] Address [address] [place] [address] Phone [phone] Care Team Providers Care Senior Quality Assurance Engineer Name Role Phone Rosendo Boyce DO Primary Care Provider Encounter Details Date Type Department Care Team (Latest Contact Info) Description 01/27/2023 3:25 PM EDT - 01/27/2023 4:24 PM EDT Hospital Encounter Radiology Film File [address] [place] [address] Discharge Disposition: Home - Self [...] 02/28/2023 11:45 AM EST Cardiac Studies Cardiology, [facility] 132 [facility] [place] [address] [facility] 132 [facility] [place] [address] 03/12/2023 9:57 AM EST Hospital Encounter OR GL, Operating Room, [facility] - 4th Floor [address] [place] [address] Hope Stuart MD [address] [place] [address] 03/12/2023 9:57 AM EST - 03/12/2023 11:19 AM EST Surgery OR GL, Operating Room, [facility] - 4th Floor [address] [place] [address] Hope Stuart MD [address] [place] [address] ESOPHAGOGASTRODUODENOSCOPY (EGD), FLEXIBLE, TRANSORAL, ENDOSCOPIC ULTRASOUND Scheduled Procedures Name Priority Associated Diagnoses Date/Ti ky ESOPHAGOGASTRODUODENOSCOPY ( EGD), FLEXIBLE, TRANSORAL, ENDOSCOPIC ULTRASOUND [...] this encounter Medical Devices Implanted Type Area Wallpaper Inspector Device Identifier Shelf Expiration Date Model / Serial / Lot Lens Intraoc 17.0 - [id number] - [id number] Implanted:Qty: 1 on 02/01/2020 by Jossue Mancera MD at OR [facility] Right: Eye BAUSCH & LOMB 05/28/2024 [id number] / [id number] / [id number] Lens Intraoc 17.5 - [id number] - [id number] Implanted:Qty: 1 on 02/10/2020 by Jossue Mancera MD at OR [facility] Left: Eye BAUSCH & LOMB 01/29/2024 [id number] / [id number] / [id number] documented as of this encounter Procedures Procedure Name Priority Date/Time Associated Diagnosis Comments RADIOLOGY EXAM - CT (IMAGES ONLY, NO REPORT) Routine 01/27/2023 3:25 PM EDT documented in this encounter Results * RADIOLOGY EXAM - CT (IMAGES ONLY, NO REPORT) (01/27/2023 3:25 PM EDT) 01/27/2023 3:23 PM EDT Narrative Scheduling, Silent - 02/03/2023 5:03 PM EST This is an imaging study not interpreted or resulted by a [facility] or [employer] contracted radiologist. Rosendo Boyce DO RAD CT documented in this encounter Advance Directives Latest Code Status on File Code Status Date Activated Date Inactivated Comments Full Code 02/02/2023 10:32 PM This orde r reflects the patients wishes and were consensually agreed upon. Question Answer Comments Discussion of Advance Directives occurred with: Patient Care Teams Senior Quality Assurance Engineer Relationship Specialty Start Date End Date Rosendo Boyce DO [address] [place], [place] [id number] PCP - General Family Medicine 06/28/16 documented as of this encounter
--- OUTSIDE RECORDS SUMMARY | 2023-02-15 00:32 | External Medical Summary ---
Author Name Unknown Address Unknown Organization K01:LABORATORY [address] [address] Laboratory Report Ordering Provider Test Date Status ABDELRAHMANALLYSON 02/05/2023 06:11:00 Final Observation Date Value Abnormality Reference (Units ) Status WBC, Total 02/05/2023 06:11:00 8.78 4.00-10.80 (K/uL) Final RBC 02/05/2023 06:11:00 3.09 3.85-5.15 (M/uL) Final Hemoglobin 02/05/2023 06:11:00 9.1 Below low normal 12.0-15.3 (g/dL) Final HCT 02/05/2023 06:11:00 30.3 Below low normal 36.0-45.2 (%) Final MCV 02/05/2023 06:11:00 98.1 81.5-97.5 (fL) Final MCH 02/05/2023 06:11:00 29.4 27.0-34.0 (pg) Final MCHC 02/05/2023 06:11:00 30.0 32.0-36.0 (g/dL) Final RDW 02/05/2023 06:11:00 16.5 11.5-15.5 (%) Final Platelets 02/05/2023 06:11:00 178 140-400 (K/uL) Final MPV 02/05/2023 06:11:00 11.9 6.6-11.1 (fL) Final Nucleated erythrocytes/100 leukocytes [Ratio] in Blood by Automated count 02/05/2023 06:11:00 0 <=0 (/100 WBCs) Final Performing Location LABORATORY [facility] - [address] [facility] [address]
--- OUTSIDE RECORDS SUMMARY | 2023-02-15 00:32 | External Medical Summary | Summary of Care ---
Author Name Unknown Organization [facility] Address [address] [place] [address] Phone [phone] Care Team Providers Care Day Haul Youth Supervisor Name Role Phone Rosendo Boyce DO Primary Care Provider Encounter Details Date Type Department Care Team (Latest Contact Info) Description 01/29/2023 5:20 PM EDT - 01/29/2023 11:59 PM EDT Hospital Encounter Radiology Film File [address] [place] [address] Discharge Disposition: Home - Self [...] 02/28/2023 11:45 AM EST Cardiac Studies Cardiology, [facility] 132 [facility] [place] [address] [facility] 132 [facility] [place] [address] 03/12/2023 9:57 AM EST Hospital Encounter OR GL, Operating Room, [facility] - 4th Floor [address] [place] [address] Hope Stuart MD [address] [place] [address] 03/12/2023 9:57 AM EST - 03/12/2023 11:19 AM EST Surgery OR GL, Operating Room, [facility] - 4th Floor [address] [place] [address] Hope Stuart MD [address] [place] [address] ESOPHAGOGASTRODUODENOSCOPY (EGD), FLEXIBLE, TRANSORAL, ENDOSCOPIC ULTRASOUND Scheduled Procedures Name Priority Associated Diagnoses Date/Ti ar ESOPHAGOGASTRODUODENOSCOPY ( EGD), FLEXIBLE, TRANSORAL, ENDOSCOPIC ULTRASOUND [...] this encounter Medical Devices Implanted Type Area Him Specialist Device Identifier Shelf Expiration Date Model / Serial / Lot Lens Intraoc 17.0 - [id number] - [id number] Implanted:Qty: 1 on 02/01/2020 by Jossue Mancera MD at OR [facility] Right: Eye BAUSCH & LOMB 05/28/2024 [id number] / [id number] / [id number] Lens Intraoc 17.5 - [id number] - [id number] Implanted:Qty: 1 on 02/10/2020 by Jossue Mancera MD at OR [facility] Left: Eye BAUSCH & LOMB 01/29/2024 [id number] / [id number] / [id number] documented as of this encounter Procedures Procedure Name Priority Date/Time Associated Diagnosis Comments RADIOLOGY EXAM - CT (IMAGES ONLY, NO REPORT) Routine 01/29/2023 5:20 PM EDT documented in this encounter Results * RADIOLOGY EXAM - CT (IMAGES ONLY, NO REPORT) (01/29/2023 5:20 PM EDT) 01/29/2023 5:16 PM EDT Narrative Scheduling, Silent - 02/03/2023 5:07 PM EST This is an imaging study not interpreted or resulted by a [facility] or [employer] contracted radiologist. Rosendo Boyce DO RAD CT documented in this encounter Advance Directives Latest Code Status on File Code Status Date Activated Date Inactivated Comments Full Code 02/02/2023 10:32 PM This orde r reflects the patients wishes and were consensually agreed upon. Question Answer Comments Discussion of Advance Directives occurred with: Patient Care Teams Day Haul Youth Supervisor Relationship Specialty Start Date End Date Rosendo Boyce DO [address] [place], [place] [id number] PCP - General Family Medicine 06/28/16 documented as of this encounter
--- OUTSIDE RECORDS SUMMARY | 2023-02-15 00:32 | External Medical Summary | Summary of Care ---
Author Name Unknown Organization [facility] Address [address] [place] [address] Phone [phone] Care Team Providers Care Teletypewriter Installer Name Role Phone Rosendo Boyce DO Primary Care Provider [phone] Encounter Details Date Type Department Care Team (Latest Contact Info) Description 01/29/2023 5:50 AM EDT - 01/29/2023 5:19 PM EDT Hospital Encounter Radiology Film File [address] [place] [address] Discharge Disposition: Home - Self [...] 02/28/2023 11:45 AM EST Cardiac Studies Cardiology, [facility] 132 [facility] [place] [address] [facility] 132 [facility] [place] [address] 03/12/2023 9:57 AM EST Hospital Encounter OR GL, Operating Room, [facility] - 4th Floor [address] [place] [address] Hope Stuart MD [address] [place] [address] 03/12/2023 9:57 AM EST - 03/12/2023 11:19 AM EST Surgery OR GL, Operating Room, [facility] - 4th Floor [address] [place] [address] Hope Stuart MD [address] [place] [address] ESOPHAGOGASTRODUODENOSCOPY (EGD), FLEXIBLE, TRANSORAL, ENDOSCOPIC ULTRASOUND Scheduled Procedures Name Priority Associated Diagnoses Date/Ti sc ESOPHAGOGASTRODUODENOSCOPY ( EGD), FLEXIBLE, TRANSORAL, ENDOSCOPIC ULTRASOUND [...] this encounter Medical Devices Implanted Type Area Roof Foreman Device Identifier Shelf Expiration Date Model / Serial / Lot Lens Intraoc 17.0 - [id number] - [id number] Implanted:Qty: 1 on 02/01/2020 by Jossue Mancera MD at OR [facility] Right: Eye BAUSCH & LOMB 05/28/2024 [id number] / [id number] / [id number] Lens Intraoc 17.5 - [id number] - [id number] Implanted:Qty: 1 on 02/10/2020 by Jossue Mancera MD at OR [facility] Left: Eye BAUSCH & LOMB 01/29/2024 [id number] / [id number] / [id number] documented as of this encounter Procedures Procedure Name Priority Date/Time Associated Diagnosis Comments RADIOLOGY EXAM - GENERAL RAD (IMAGES ONLY,NO REPORT) Routine 01/29/2023 5:50 AM EDT documented in this encounter Results * RADIOLOGY EXAM - GENERAL RAD (IMAGES ONLY,NO REPORT) (01/29/2023 5:50 AM EDT) 01/29/2023 5:49 AM EDT Narrative Scheduling, Silent - 02/03/2023 4:59 PM EST This is an imaging study not interpreted or resulted by a [facility] or [employer] contracted radiologist. Rosendo Boyce DO RADIOLOGY (RAD GENE RAL) documented in this encounter Advance Directives Latest Code Status on File Code Status Date Activated Date Inactivated Comments Full Code 02/02/2023 10:32 PM This orde r reflects the patients wishes and were consensually agreed upon. Question Answer Comments Discussion of Advance Directives occurred with: Patient Care Teams Teletypewriter Installer Relationship Specialty Start Date End Date Rosendo Boyce DO [address] [place] [address] PCP - General Family Medicine 06/28/16 documented as of this encounter
--- OUTSIDE RECORDS SUMMARY | 2023-02-15 00:32 | External Medical Summary ---
Author Name Unknown Address Unknown Organization K01:[facility] - [address] [place] [address] Laboratory Report Ordering Provider Test Date Status BRITTNY PERRY 02/05/2023 06:11:00 Final Observation Date Value Abnormality Reference (Units ) Status Magnesium 02/05/2023 06:11:00 2.3 1.5-2.6 (m g/dL) Final Performing Location LABORATORY [facility] - [address] [place] [address]
--- OUTSIDE RECORDS SUMMARY | 2023-02-15 00:32 | External Medical Summary ---
Author Name Unknown Address Unknown Organization K01:LABORATORY [facility] - [address] [place] [address] Laboratory Report Ordering Provider Test Date Status ALLYSON QUICK 02/05/2023 15:29:00 Final Observation Date Value Abnormality Reference (Units ) Status BUN 02/05/2023 15:29:00 23 Above high normal 6-20 (mg/dL) Final Creatinine 02/05/2023 15:29:00 0.7 0.5-1.0 (mg/dL) Final Glomerular filtration rate/1.73 sq M.predicted [Volume Rate/Area] in Serum, Plasma or Blood by Creatinine-based formula (CKD-EPI) 02/05/2023 15:29:00 90 >=60 (mL/min) Final eGFR is calculated based on the CKD-EPI 2020 equation SODIUM 02/05/2023 15:29:00 138 135-146 (m mol/L) Final Potassium 02/05/2023 15:29:00 3.2 Below low normal 3.5 -5.1 (mmol/L) Final Cl 02/05/2023 15:29:00 103 98-107 (mm ol/L) Final CO2 02/05/2023 15:29:00 28 22-32 (mmo l/L) Final Anion gap 02/05/2023 15:29:00 7 7-15 (mmol /L) Final Glucose 02/05/2023 15:29:00 146 Above high normal 70 -120 (mg/dL) Final Calcium 02/05/2023 15:29:00 8.3 Below low normal 8.4 -10.2 (mg/dL) Final Albumin 02/05/2023 15:29:00 3.1 Below low normal 3.8 -5.0 (g/dL) Final Phosphate 02/05/2023 15:29:00 2.3 Below low normal 2.5 -4.8 (mg/dL) Final Performing Location LABORATORY C - [address] [place] [address]
--- OUTSIDE RECORDS SUMMARY | 2023-02-15 00:33 | External Medical Summary ---
Author Name Unknown Address Unknown Organization K01:[facility] [address] [facility] [address] Laboratory Report Ordering Provider Test Date Status BRITTNY PERRY 02/03/2023 16:07:00 Final Observation Date Value Abnormality Reference (Units ) Status WBC, Total 02/03/2023 16:07:00 14.06 Above high normal 4.00-10.80 (K/uL) Final RBC 02/03/2023 16:07:00 3.31 3.85-5.15 (M/uL) Final Hemoglobin 02/03/2023 16:07:00 9.8 Below low normal 12.0-15.3 (g/dL) Final HCT 02/03/2023 16:07:00 29.7 Below low normal 36.0-45.2 (%) Final MCV 02/03/2023 16:07:00 89.7 81.5-97.5 (fL) Final MCH 02/03/2023 16:07:00 29.6 27.0-34.0 (pg) Final MCHC 02/03/2023 16:07:00 33.0 32.0-36.0 (g/dL) Final RDW 02/03/2023 16:07:00 16.6 11.5-15.5 (%) Final Platelets 02/03/2023 16:07:00 125 Below low normal 140-400 (K/uL) Final MPV 02/03/2023 16:07:00 11.9 6.6-11.1 (fL) Final Nucleated erythrocytes/100 leukocytes [Ratio] in Blood by Automated count 02/03/2023 16:07:00 0 <=0 (/100 WBCs) Final Performing Location LAB[facility]ORY [facility] - [address] [facility] [address]
--- OUTSIDE RECORDS SUMMARY | 2023-02-15 00:33 | External Medical Summary | Summary of Care ---
Author Name Unknown Organization [facility] Address [address] [facility] [address] Phone [phone] Care Team Providers Care Cyber Security Consultant Name Role Phone Rosendo Boyce DO Primary Care Provider [phone] Encounter Details Date Type Department Care Team (Late st Contact Info) Description 01/27/2023 Orders Only Family Practice [facility] [place] [address] [place] [address] Rosendo Boyce DO [address] [place] [address] Allergies Active Allergy Reactions Criticality Noted Date Comments Pollen 01/24/2017 Ferrous Sulfate 03/08/2019 Couldn't tolerate Ferrous sulfate pills, but can take 1 a day vitamins Torsemide 03/06/2021 Itching documented as of this encounter (statuses as of 02/03/2023) Medications Medication Sig Dispensed Refills Start Date [...] Midodrine HCl 2.5 MG Oral Tablet (Proamatine)Indic ations:Tachy-viet y syndrome (HCC) Take 1 Tablet by [...] as of this encounter (statuses as of 02/03/2023) Active Problems Problem Noted Date Diagnosed Date [...] as of this encounter (statuses as of 02/03/2023) Resolved Problems Problem Noted Date Diagnosed Date Resolved Date Chronic diastolic congestive heart failure 07/20/2019 01/09/2022 Protein-calorie malnutrition 03/08/2019 01/27/2020 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 JAQUAN (generalized anxiety disorder) 07/06/2018 07/15/2018 NO KNOWN PROBLEMS 07/31/2007 08/02/2017 documented as of this encounter (statuses as of 02/03/2023) Immunizations Name Administration Dates Next Due COVID-19 [...] 02/28/2023 11:45 AM EST Cardiac Studies Cardiology, [facility] 132 [facility] [place] [address] [facility] [address] [place] [address] 03/12/2023 9:57 AM EST Hospital Encounter OR GL, Operating Room, [facility] - 4th Floor [address] [place] [address] Hope Stuart MD [address] [place] [address] 03/12/2023 9:57 AM EST - 03/12/2023 11:19 AM EST Surgery OR [facility], Operating Room, [facility] - 4th Floor [address] [place] [address] Hope Stuart MD [address] [place] [address] ESOPHAGOGASTRODUODENOSCOPY (EGD), FLEXIBLE, TRANSORAL, ENDOSCOPIC ULTRASOUND Scheduled Procedures Name Priority Associated Diagnoses Date/Ti hi ESOPHAGOGASTRODUODENOSCOPY ( EGD), FLEXIBLE, TRANSORAL, DIAGNOSTIC Gastric ulcer 02/03/2023 11:36 AM EST ESOPHAGOGASTRODUODENOSCOPY ( EGD), FLEXIBLE, TRANSORAL, ENDOSCOPIC ULTRASOUND [...] this encounter Medical Devices Implanted Type Area Joist Setter Device Identifier Shelf Expiration Date Model / Serial / Lot Lens Intraoc 17.0 - [id number] - [id number] Implanted:Qty: 1 on 02/01/2020 by Jossue Mancera MD at OR [facility] Right: Eye BAUSCH & LOMB 05/28/2024 [id number] / [id number] / [id number] Lens Intraoc 17.5 - [id number] - [id number] Implanted:Qty: 1 on 02/10/2020 by Jossue Mancera MD at OR [facility] Left: Eye BAUSCH & LOMB 01/29/2024 [id number] / [id number] / [id number] documented as of this encounter Procedures Procedure [...] interpreted or resulted by a [facility] or [employer] contracted radiologist. Rosendo Boyce DO RAD CT documented in this encounter Advance Directives Latest Code Status on File Code Status Date Activated Date Inactivated Comments Full Code 02/02/2023 10:32 PM This orde r reflects the patients wishes and were consensually agreed upon. Question Answer Comments Discussion of Advance Directives occurred with: Patient Care Teams Cyber Security Consultant Relationship Specialty Start Date End Date Rosendo Boyce DO [address] [place] [address] PCP - General Family Medicine 06/28/16 documented as of this encounter
--- OUTSIDE RECORDS SUMMARY | 2023-02-15 00:33 | External Medical Summary | Summary of Care ---
Author Name Unknown Organization [facility] Address [address] [facility] [address] Phone [phone] Care Team Providers Care Group Social Worker Name Role Phone Rosendo Boyce DO Primary Care Provider [phone] Encounter Details Date Type Department Care Team (Late st Contact Info) Description 01/29/2023 Orders Only Family Practice [facility] [place] [address] [place] [address] Rosendo Boyce DO [address] [place] [address] Allergies Active Allergy Reactions Criticality Noted Date [...] AM EST Cardiac Studies Cardiology, [facility] 132 [facility] [place] [address] [facility] [address] [place] [address] 03/12/2023 9:57 AM EST Hospital Encounter OR GL, Operating Room, [facility] - 4th Floor [address] [place] [address] Hope Stuart MD [address] [place] [address] 03/12/2023 9:57 AM EST - 03/12/2023 11:19 AM EST Surgery OR [facility], Operating Room, [facility] - 4th Floor [address] [place] [address] Hope Stuart MD [address] [place] [address] ESOPHAGOGASTRODUODENOSCOPY (EGD), FLEXIBLE, TRANSORAL, ENDOSCOPIC ULTRASOUND Scheduled Procedures Name Priority Associated Diagnoses Date/Ti md ESOPHAGOGASTRODUODENOSCOPY ( EGD), FLEXIBLE, TRANSORAL, DIAGNOSTIC Gastric [...] this encounter Medical Devices Implanted Type Area Obiee Lead Developer Device Identifier Shelf Expiration Date Model / Serial / Lot Lens Intraoc 17.0 - [id number] - [id number] Implanted:Qty: 1 on 02/01/2020 by Jossue Mancera MD at OR [facility] Right: Eye BAUSCH & LOMB 05/28/2024 [id number] / [id number] / [id number] Lens Intraoc 17.5 - [id number] - [id number] Implanted:Qty: 1 on 02/10/2020 by Jossue Mancera MD at OR [facility] Left: Eye BAUSCH & LOMB 01/29/2024 [id number] / [id number] / [id number] documented as of this encounter Procedures Procedure [...] interpreted or resulted by a [facility] or [employer] contracted radiologist. Rosendo Boyce DO RADIOLOGY (RAD GENE [facility]) documented in this encounter Advance Directives Latest Code Status on File Code Status Date Activated Date Inactivated Comments Full Code 02/02/2023 10:32 PM This orde r reflects the patients wishes and were consensually agreed upon. Question Answer Comments Discussion of Advance Directives occurred with: Patient Care Teams Group Social Worker Relationship Specialty Start Date End Date Rosendo Boyce DO [address] [address] PCP - General Family Medicine 06/28/16 documented as of this encounter
--- OUTSIDE RECORDS SUMMARY | 2023-02-15 00:33 | External Medical Summary | Summary of Care ---
Author Name Unknown Organization [facility] [address] [place] [address] Phone [phone] Care Team Providers Care Assembler Golf Wood Head Name Role Phone Rosendo Boyce DO Primary Care Provider Reason for Visit * Reason Comments Retrieval [facility] to [facility] Encounter Details Date Type Department Care Team (Late st Contact Info) Description 02/02/2023 9:00 PM EST Documentation [facility] [place] [address] [place] [address] 2, [facility] [address] [place] [address] Severe bleeding ulcer of esophagus, stomach or duodenum* Allergies Active Allergy Reactions Criticality Noted Date [...] Suspended Ondansetron HCl 8 MG Oral Tablet (Zofran)Indicati [...] Suspended Prochlorperazine Maleate 10 MG Oral Tablet (Compazine)Indic ations:Cardiac amyloidosis (HCC) Take by mouth 1 Tablet every 6 hours as needed for Nausea. 60 Tablet 2 06/28/2021 Suspended Additional Information Fluticasone Propionate 50 MCG/ACT Nasal SuspensionIndica tions:Chronic rhinitis (2) sprays each nostril once daily -for nasal congestion 18.2 mL 5 08/16/2021 Suspended Additional Information Famotidine 20 MG Oral Tablet (Pepcid) Take 1 Tablet by mouth in the morning and 1 Tablet before bedtime. 0 Suspended Acyclovir 400 MG Oral Tablet (Zovirax)Indicat ions:Cardiac [...] Additional Information Spironolactone 25 MG Oral Tablet (Aldactone)Indic ations:Chronic diastolic congestive heart failure (HCC) Take 1 Tablet by mouth in the morning. 90 Tablet 0 06/24/2022 Suspended Additional Information Doxycycline Hyclate 100 MG Oral Capsule Take 1 Capsule by mouth in the morning and 1 Capsule before bedtime. 0 11/25/2022 3 Discontinued( End of Procedure) predniSONE 10 MG Oral Tablet [...] Information Amiodarone HCl 200 MG Oral Tablet (Cordarone)Indic ations:Tachy-bra dy syndrome (HCC) Take 1 Tablet by mouth in the morning and 1 Tablet before bedtime. 60 Tablet 5 01/20/2023 Suspended Additional Information Midodrine HCl 2.5 MG Oral Tablet (Proamatine)Felicia [...] on file documented as of this encounter Progress Notes * Jed Mendoza EMT-P - 02/02/2023 11:59 PM EST MEDICARE AMBULANCE INFORMATION SHEET Patient Admitted as an Inpatient: yes Certifying Physician/Ordering Service:[facility] ED Physician - Kashif Waggoner D.O. [facility] [address] [place] [address] Point of Fiberglass Boat Finisher (zip code required): [facility] - [address]; [place] [address] Destination (Specify Name/Address): [facility] - [address]; [place] [address] Patient transported to nearest facility (capable of mgmt for Pt's condition): YES Total number of Loaded Miles: 65.8 miles Mode of Transport: Air Completed by: Jed Mendoza EMT-P documented in this encounter Plan of Treatment Upcoming Encounters Date Type Department Care Team (Latest Contact Info) Description 02/28/2023 11:45 AM EST Cardiac Studies Cardiology, [facility] [address] [place] [address] [facility] [address] [place] [address] 03/12/2023 9:57 AM EST Hospital Encounter OR GL, Operating Room, [facility] - 4th Floor [address] [place] [address] Hope Stuart MD [address] [place] [address] 03/12/2023 9:57 AM EST - 03/12/2023 11:19 AM EST Surgery OR [facility], Operating Room, [facility] - 4th Floor [address] [place] [address] Hope Stuart MD [address] [place] [address] ESOPHAGOGASTRODUODENOSCOPY (EGD), FLEXIBLE, TRANSORAL, ENDOSCOPIC ULTRASOUND Scheduled Procedures Name Priority Associated Diagnoses Date/Ti mt ESOPHAGOGASTRODUODENOSCOPY ( EGD), FLEXIBLE, TRANSORAL, DIAGNOSTIC Gastric [...] this encounter Medical Devices Implanted Type Area Bookbinder Chief Device Identifier Shelf Expiration Date Model / Serial / Lot Lens Intraoc 17.0 - [id number] - [id number] Implanted:Qty: 1 on 02/01/2020 by Jossue Mancera MD at OR [facility] Right: Eye BAUSCH & LOMB 05/28/2024 [id number] / [id number] / [id number] Lens Intraoc 17.5 - [id number] - [id number] Implanted:Qty: 1 on 02/10/2020 by Jossue Mancera MD at OR [facility] Left: Eye BAUSCH & LOMB 01/29/2024 [id number] / [id number] / [id number] documented as of this encounter Visit Diagnoses Diagnosis Severe bleeding ulcer of esophagus, stomach or duodenum- Primary Acute peptic ulcer, unspecified site, with hemorrhage, without mention of obstruction Choledocholithiasis Calculus of bile duct without mention of cholecystitis or obstruction documented in this encounter Advance Directives Latest Code Status on File Code Status Date Activated Date Inactivated Comments Full Code 02/02/2023 10:32 PM This orde r reflects the patients wishes and were consensually agreed upon. Question Answer Comments Discussion of Advance Directives occurred with: Patient Care Teams Assembler Golf Wood Head Relationship Specialty Start Date End Date Rosendo Boyce DO [address] [place] [address] PCP - General Family Medicine 06/28/16 documented as of this encounter
--- OUTSIDE RECORDS SUMMARY | 2023-02-15 00:33 | External Medical Summary | Summary of Care ---
Author Name Unknown Organization [facility] Address [address] [facility] [address] Phone [phone] Care Team Providers Care Drafter Geological Name Role Phone Rosendo Boyce DO Primary Care Provider +1 [phone] Encounter Details Date Type Department Care Team (Late st Contact Info) Description 02/02/2023 Orders Only Family Practice [facility] [place] [address] [place] [address] Rosendo Boyce DO [address] [place] [address] Allergies Active Allergy Reactions Criticality Noted Date [...] Cardiac Studies Cardiology, [facility] [address] [facility] [place] [address] [facility] [address] [place] [address] 03/12/2023 9:57 AM EST Hospital Encounter OR GL, Operating Room, [facility] - 4th Floor [address] [place] [address] Hope Stuart MD [address] [place] [address] 03/12/2023 9:57 AM EST - 03/12/2023 11:19 AM EST Surgery OR [facility], Operating Room, [facility] - 4th Floor [address] [place] [address] Hope Stuart MD [address] [place] [address] ESOPHAGOGASTRODUODENOSCOPY (EGD), FLEXIBLE, TRANSORAL, ENDOSCOPIC ULTRASOUND Scheduled Procedures Name Priority Associated Diagnoses Date/Ti ky ESOPHAGOGASTRODUODENOSCOPY ( EGD), FLEXIBLE, TRANSORAL, DIAGNOSTIC Gastric [...] this encounter Medical Devices Implanted Type Area Commodity Merchant Device Identifier Shelf Expiration Date Model / Serial / Lot Lens Intraoc 17.0 - [id number] - [id number] Implanted:Qty: 1 on 02/01/2020 by Jossue Mancera MD at OR [facility] Right: Eye BAUSCH & LOMB 05/28/2024 [id number] / [id number] / [id number] Lens Intraoc 17.5 - [id number] - [id number] Implanted:Qty: 1 on 02/10/2020 by Jossue Mancera MD at OR [facility] Left: Eye BAUSCH & LOMB 01/29/2024 [id number] / [id number] / [id number] documented as of this encounter Procedures Procedure Name Priority Date/Time Associated Diagnosis Comments RADIOLOGY EXAM - CT (IMAGES ONLY, NO REPORT) Routine 02/02/2023 6:55 PM EST documented in this encounter Results * RADIOLOGY EXAM - CT (IMAGES ONLY, NO REPORT) (02/02/2023 6:55 PM EST) 02/02/2023 6:5 2 PM EST Narrative Scheduling, Silent - 02/03/2023 5:05 PM EST This is an imaging study not interpreted or resulted by a [facility] or [employer] contracted radiologist. Rosendo Boyce DO RAD CT documented in this encounter Advance Directives Latest Code Status on File Code Status Date Activated Date Inactivated Comments Full Code 02/02/2023 10:32 PM This orde r reflects the patients wishes and were consensually agreed upon. Question Answer Comments Discussion of Advance Directives occurred with: Patient Care Teams Drafter Geological Relationship Specialty Start Date End Date Rosendo Boyce DO [address] [place] [address] [place] [address] PCP - General Family Medicine 06/28/16 documented as of this encounter
--- OUTSIDE RECORDS SUMMARY | 2023-02-15 00:33 | External Medical Summary | Summary of Care ---
Author Name Unknown Organization [facility] Address [address] [facility] [address] Phone [phone] Care Team Providers Care Continuous Process Machine Operator Name Role Phone Rosendo Boyce DO Primary Care Provider +1 [phone] Encounter Details Date Type Department Care Team (Late st Contact Info) Description 01/27/2023 Orders Only Family Practice [facility] [place] [address] [place] [address] Rosendo Boyce DO [address] [place] [address] Allergies Active Allergy Reactions Criticality Noted Date [...] 02/28/2023 11:45 AM EST Cardiac Studies Cardiology, [facility] 132 [facility] [place] [address] [facility] [address] [place] [address] 03/12/2023 9:57 AM EST Hospital Encounter OR GL, Operating Room, [facility] - 4th Floor [address] [place] [address] Hope Stuart MD [address] [place] [address] 03/12/2023 9:57 AM EST - 03/12/2023 11:19 AM EST Surgery OR [facility], Operating Room, [facility] - 4th Floor [address] [place] [address] Hope Stuart MD [address] [place] [address] ESOPHAGOGASTRODUODENOSCOPY (EGD), FLEXIBLE, TRANSORAL, ENDOSCOPIC ULTRASOUND Scheduled Procedures Name Priority Associated Diagnoses Date/Ti ma ESOPHAGOGASTRODUODENOSCOPY ( EGD), FLEXIBLE, TRANSORAL, DIAGNOSTIC Gastric [...] this encounter Medical Devices Implanted Type Area Assistant Store Manager Trainee Device Identifier Shelf Expiration Date Model / Serial / Lot Lens Intraoc 17.0 - [id number] - [id number] Implanted:Qty: 1 on 02/01/2020 by Jossue Mancera MD at OR [facility] Right: Eye BAUSCH & LOMB 05/28/2024 [id number] / [id number] / [id number] Lens Intraoc 17.5 - [id number] - [id number] Implanted:Qty: 1 on 02/10/2020 by Jossue Mancera MD at OR [facility] Left: Eye BAUSCH & LOMB 01/29/2024 [id number] / [id number] / [id number] documented as of this encounter Procedures Procedure [...] interpreted or resulted by a [facility] or [facility] contracted radiologist. Rosendo Boyce DO RADIOLOGY (RAD GENE [facility]) documented in this encounter Advance Directives Latest Code Status on File Code Status Date Activated Date Inactivated Comments Full Code 02/02/2023 10:32 PM This orde r reflects the patients wishes and were consensually agreed upon. Question Answer Comments Discussion of Advance Directives occurred with: Patient Care Teams Continuous Process Machine Operator Relationship Specialty Start Date End Date Rosendo Boyce DO [address] [place] [address] PCP - General Family Medicine 06/28/16 documented as of this encounter
--- OUTSIDE RECORDS SUMMARY | 2023-02-15 00:33 | External Medical Summary ---
Author Name Unknown Address Unknown Organization K01:LABORATORY [facility] [place] - [facility] [place] [address] [facility] [address] [facility] [address] Laboratory Report Ordering Provider Test Date Status BRITTNY PERRY 02/04/2023 05:04:00 Final Observation Date Value Abnormality Reference (Units ) Status BUN 02/04/2023 05:04:00 32 Above high normal 6-20 (mg/dL) Final Creatinine 02/04/2023 05:04:00 0.8 0.5-1.0 (mg/dL) Final Glomerular filtration rate/1.73 sq M.predicted [Volume Rate/Area] in Serum, Plasma or Blood by Creatinine-based formula (CKD-EPI) 02/04/2023 05:04:00 77 >=60 (mL/min) Final eGFR is calculated based on the CKD-EPI 2020 equation SODIUM 02/04/2023 05:04:00 145 135-146 (m mol/L) Final Potassium 02/04/2023 05:04:00 4.2 3.5-5.1 (m mol/L) Final Cl 02/04/2023 05:04:00 110 Above high normal 98 -107 (mmol/L) Final CO2 02/04/2023 05:04:00 27 22-32 (mmo l/L) Final Anion gap 02/04/2023 05:04:00 8 7-15 (mmol /L) Final Glucose 02/04/2023 05:04:00 124 Above high normal 70 -120 (mg/dL) Final Calcium 02/04/2023 05:04:00 8.6 8.4-10.2 ( mg/dL) Final Performing Location LABORATORY [facility] [place] - [address] [place] [address]
--- OUTSIDE RECORDS SUMMARY | 2023-02-15 00:33 | External Medical Summary ---
Author Name Unknown Address Unknown Organization K01:[facility] [address] [facility] [address] Laboratory Report Ordering Provider Test Date Status MARCIANO QUICKRona 02/04/2023 05:04:00 Final Observation Date Value Abnormality Reference (Units ) Status WBC, Total 02/04/2023 05:04:00 8.08 4.00-10.80 (K/uL) Final RBC 02/04/2023 05:04:00 3.02 3.85-5.15 (M/uL) Final Hemoglobin 02/04/2023 05:04:00 8.9 Below low normal 12.0-15.3 (g/dL) Final HCT 02/04/2023 05:04:00 29.2 Below low normal 36.0-45.2 (%) Final MCV 02/04/2023 05:04:00 96.7 81.5-97.5 (fL) Final MCH 02/04/2023 05:04:00 29.5 27.0-34.0 (pg) Final MCHC 02/04/2023 05:04:00 30.5 32.0-36.0 (g/dL) Final RDW 02/04/2023 05:04:00 16.6 11.5-15.5 (%) Final Platelets 02/04/2023 05:04:00 111 Below low normal 140-400 (K/uL) Final MPV 02/04/2023 05:04:00 12.3 6.6-11.1 (fL) Final Nucleated erythrocytes/100 leukocytes [Ratio] in Blood by Automated count 02/04/2023 05:04:00 0 <=0 (/100 WBCs) Final Performing Location [facility] [place] [address] [place] [address]
--- OUTSIDE RECORDS SUMMARY | 2023-02-15 00:33 | External Medical Summary | Summary of Care ---
Author Name Unknown Organization [facility] Address [address] [facility] [address] Phone [phone] Care Team Providers Care Machine Sign Writer Name Role Phone Rosendo Boyce DO Primary Care Provider +1 [phone] Encounter Details Date Type Department Care Team (Late st Contact Info) Description 02/01/2023 Orders Only Family Practice [facility] [place] [address] [place] [address] Rosendo Boyce DO [address] [place] [address] Allergies Active Allergy Reactions Criticality Noted Date [...] 02/28/2023 11:45 AM EST Cardiac Studies Cardiology, [facility] [address] [facility] [place] [address] [facility] [address] [place] [address] 03/12/2023 9:57 AM EST Hospital Encounter OR GL, Operating Room, [place] - 4th Floor [address] [place] [address] Hope Stuart MD [address] [place] [address] 03/12/2023 9:57 AM EST - 03/12/2023 11:19 AM EST Surgery OR [facility], Operating Room, [place] - 4th Floor [address] [place] [address] Hope Stuart MD [address] [place] [address] ESOPHAGOGASTRODUODENOSCOPY (EGD), FLEXIBLE, TRANSORAL, ENDOSCOPIC ULTRASOUND Scheduled Procedures Name Priority Associated Diagnoses Date/Ti dc ESOPHAGOGASTRODUODENOSCOPY ( EGD), FLEXIBLE, TRANSORAL, DIAGNOSTIC Gastric [...] this encounter Medical Devices Implanted Type Area Monument Installer Device Identifier Shelf Expiration Date Model / Serial / Lot Lens Intraoc 17.0 - [id number] - [id number] Implanted:Qty: 1 on 02/01/2020 by Jossue Mancera MD at OR [facility] Right: Eye BAUSCH & LOMB 05/28/2024 [id number] / [id number] / [id number] Lens Intraoc 17.5 - [id number] - [id number] Implanted:Qty: 1 on 02/10/2020 by Jossue Mancera MD at OR [facility] Left: Eye BAUSCH & LOMB 01/29/2024 [id number] / [id number] / [id number] documented as of this encounter Procedures Procedure [...] interpreted or resulted by a [facility] or [facility] [employer] contracted radiologist. Rosendo Boyce DO RADIOLOGY (RAD GENE [facility]) documented in this encounter Advance Directives Latest Code Status on File Code Status Date Activated Date Inactivated Comments Full Code 02/02/2023 10:32 PM This orde r reflects the patients wishes and were consensually agreed upon. Question Answer Comments Discussion of Advance Directives occurred with: Patient Care Teams Machine Sign Writer Relationship Specialty Start Date End Date Rosendo Boyce DO [address] [place] [address] PCP - General Family Medicine 06/28/16 documented as of this encounter
--- OUTSIDE RECORDS SUMMARY | 2023-02-15 00:33 | External Medical Summary | Summary of Care ---
Author Name Unknown Organization [facility] Address [address] [facility] [address] Phone [phone] Care Team Providers Care Beaming Machine Operator Name Role Phone Rosendo Boyce DO Primary Care Provider +[phone] Encounter Details Date Type Department Care Team (Late st Contact Info) Description 01/29/2023 Orders Only Family Practice [facility] [place] [address] [place] [address] Rosendo Boyce DO [address] [place] [address] Allergies Active Allergy Reactions Criticality Noted Date [...] 11:45 AM EST Cardiac Studies Cardiology, [facility] 132 [facility] [place] [address] [facility] [address] [place] [address] 03/12/2023 9:57 AM EST Hospital Encounter OR GL, Operating Room, [facility] - 4th Floor [address] [place] [address] Hope Stuart MD [address] [place] [address] 03/12/2023 9:57 AM EST - 03/12/2023 11:19 AM EST Surgery OR [facility], Operating Room, [facility] - 4th Floor [address] [place] [address] Hope Stuart MD [address] [place] [address] ESOPHAGOGASTRODUODENOSCOPY (EGD), FLEXIBLE, TRANSORAL, ENDOSCOPIC ULTRASOUND Scheduled Procedures Name Priority Associated Diagnoses Date/Ti wy ESOPHAGOGASTRODUODENOSCOPY ( EGD), FLEXIBLE, TRANSORAL, DIAGNOSTIC Gastric [...] this encounter Medical Devices Implanted Type Area Count Team Member Device Identifier Shelf Expiration Date Model / Serial / Lot Lens Intraoc 17.0 - [id number] - [id number] Implanted:Qty: 1 on 02/01/2020 by Jossue Mancera MD at OR [facility] Right: Eye BAUSCH & LOMB 05/28/2024 [id number] / [id number] / [id number] Lens Intraoc 17.5 - [id number] - [id number] Implanted:Qty: 1 on 02/10/2020 by Jossue Mancera MD at OR [facility] Left: Eye BAUSCH & LOMB 01/29/2024 [id number] / [id number] / [id number] documented as of this encounter Procedures Procedure [...] interpreted or resulted by a [facility] or [facility] contracted radiologist. Rosendo Boyce DO RAD CT documented in this encounter Advance Directives Latest Code Status on File Code Status Date Activated Date Inactivated Comments Full Code 02/02/2023 10:32 PM This orde r reflects the patients wishes and were consensually agreed upon. Question Answer Comments Discussion of Advance Directives occurred with: Patient Care Teams Beaming Machine Operator Relationship Specialty Start Date End Date Rosendo Boyce DO [address] [facility] [place] [address] PCP - General Family Medicine 06/28/16 documented as of this encounter
--- OUTSIDE RECORDS SUMMARY | 2023-02-15 00:33 | External Medical Summary | Summary of Care ---
Author Name Unknown Organization [facility] Address [address] [place] [address] Phone [phone] Care Team Providers Care Box Lining Machine Feeder Name Role Phone Rosendo Boyce DO Primary Care Provider Encounter Details Date Type Department Care Team (Latest Contact Info) Description 02/02/2023 6:55 PM EST - 02/02/2023 10:26 PM EST Hospital Encounter Radiology Film File [address] [place] [address] Arrived Discharge Disposition: Home - [...] 02/28/2023 11:45 AM EST Cardiac Studies Cardiology, [facility] 132 [facility] [place] [address] [facility] [address] [facility] [place] [address] 03/12/2023 9:57 AM EST Hospital Encounter OR GL, Operating Room, [facility] - 4th Floor [address] [place] [address] Hope Stuart MD [address] [place] [address] 03/12/2023 9:57 AM EST - 03/12/2023 11:19 AM EST Surgery OR GL, Operating Room, [facility] - 4th Floor [address] [place] [address] Hope Stuart MD [address] [place] [address] ESOPHAGOGASTRODUODENOSCOPY (EGD), FLEXIBLE, TRANSORAL, ENDOSCOPIC ULTRASOUND Scheduled Procedures Name Priority Associated Diagnoses Date/Ti ak ESOPHAGOGASTRODUODENOSCOPY ( EGD), FLEXIBLE, TRANSORAL, ENDOSCOPIC ULTRASOUND [...] this encounter Medical Devices Implanted Type Area Wire Coater Device Identifier Shelf Expiration Date Model / Serial / Lot Lens Intraoc 17.0 - [id number] - [id number] Implanted:Qty: 1 on 02/01/2020 by Jossue Mancera MD at OR [facility] Right: Eye BAUSCH & LOMB 05/28/2024 [id number] / [id number] / [id number] Lens Intraoc 17.5 - [id number] - [id number] Implanted:Qty: 1 on 02/10/2020 by Jossue Mancera MD at OR [facility] Left: Eye BAUSCH & LOMB 01/29/2024 [id number] / [id number] / [id number] documented as of this encounter Procedures Procedure Name Priority Date/Time Associated Diagnosis Comments RADIOLOGY EXAM - CT (IMAGES ONLY, NO REPORT) Routine 02/02/2023 6:55 PM EST documented in this encounter Results * RADIOLOGY EXAM - CT (IMAGES ONLY, NO REPORT) (02/02/2023 6:55 PM EST) 02/02/2023 6:52 PM EST Narrative Scheduling, Silent - 02/03/2023 5:05 PM EST This is an imaging study not interpreted or resulted by a [facility] or [facility] contracted radiologist. Rosendo Boyce DO RAD CT documented in this encounter Advance Directives Latest Code Status on File Code Status Date Activated Date Inactivated Comments Full Code 02/02/2023 10:32 PM This orde r reflects the patients wishes and were consensually agreed upon. Question Answer Comments Discussion of Advance Directives occurred with: Patient Care Teams Box Lining Machine Feeder Relationship Specialty Start Date End Date Rosendo Boyce DO [address] [place], [place] [id number] PCP - General Family Medicine 06/28/16 documented as of this encounter
--- OUTSIDE RECORDS SUMMARY | 2023-02-15 00:33 | External Medical Summary ---
Author Name Unknown Address Unknown Organization K01:LABORATORY [facility] [place] - [address] [facility] [facility] [address] Laboratory Report Ordering Provider Test Date Status BRITTNY PERRY 02/04/2023 05:04:00 Final Observation Date Value Abnormality Reference (Units ) Status Calcium.ionized [Moles/volume] in Serum or Plasma by Ion-selective membrane electrode (ISE) 02/04/2023 05:04:00 1.17 1.13-1.32 (mmol/L) Final This test was developed and its performance characteristics dtermined by [employer]. It has not been cleared or approved by the [place] Food and Drug Administration Performing Location LABORATORY [place] [address] [address] [facility] [address]
--- OUTSIDE RECORDS SUMMARY | 2023-02-15 00:33 | External Medical Summary | Summary of Care ---
Author Name Unknown Organization [facility] Address [address] [facility] [facility] [address] Phone [phone] Care Team Providers Care General Internal Medicine Physician Name Role Phone Rosendo Boyce DO Primary Care Provider [phone] Encounter Details Date Type Department Care Team (Late st Contact Info) Description 01/27/2023 Orders Only Family Practice [facility] [address] [place] [address] Rosendo Boyce DO [address] [place] [address] Allergies Active Allergy Reactions Criticality Noted Date [...] 02/28/2023 11:45 AM EST Cardiac Studies Cardiology, [facility] [address] [facility] [place] [address] [facility] [address] [place] [address] 03/12/2023 9:57 AM EST Hospital Encounter OR [facility], Operating Room, [facility] - 4th Floor [address] [place] [address] Hope Stuart MD [address] [place] [address] 03/12/2023 9:57 AM EST - 03/12/2023 11:19 AM EST Surgery OR [facility], Operating Room, [facility] - 4th Floor [address] [place] [address] Hope Stuart MD [address] [place] [address] ESOPHAGOGASTRODUODENOSCOPY (EGD), FLEXIBLE, TRANSORAL, ENDOSCOPIC ULTRASOUND Scheduled [...] this encounter Medical Devices Implanted Type Area Tube Teller Device Identifier Shelf Expiration Date Model / Serial / Lot Lens Intraoc 17.0 - [id number] - [id number] Implanted:Qty: 1 on 02/01/2020 by Jossue Mancera MD at OR [facility] Right: Eye BAUSCH & LOMB 05/28/2024 [id number] / [id number] / [id number] Lens Intraoc 17.5 - [id number] - [id number] Implanted:Qty: 1 on 02/10/2020 by Jossue Mancera MD at OR [facility] Left: Eye BAUSCH & LOMB 01/29/2024 [id number] / [id number] / [id number] documented as of this encounter Procedures Procedure [...] interpreted or resulted by a [facility] or [facility] contracted radiologist. Rosendo Boyce DO RADIOLOGY ([facility]) documented in this encounter Advance Directives Latest Code Status on File Code Status Date Activated Date Inactivated Comments Full Code 02/02/2023 10:32 PM This orde r reflects the patients wishes and were consensually agreed upon. Question Answer Comments Discussion of Advance Directives occurred with: Patient Care Teams General Internal Medicine Physician Relationship Specialty Start Date End Date Rosendo Boyce DO [address] [place] [address] PCP - General Family Medicine 06/28/16 documented as of this encounter
--- OUTSIDE RECORDS SUMMARY | 2023-02-15 00:33 | External Medical Summary ---
Author Name Unknown Address Unknown Organization K[facility] [address] [place] [address] Laboratory Report Ordering Provider Test Date Status BRITTNY PERRY 02/04/2023 05:04:00 Final Observation Date Value Abnormality Reference (Units ) Status Phosphate 02/04/2023 05:04:00 3.4 2.5-4.8 (m g/dL) Final Performing Location [facility] - [address] [place] [address]
--- OUTSIDE RECORDS SUMMARY | 2023-02-15 00:33 | External Medical Summary ---
Author Name Unknown Address Unknown Organization [facility] - [address] [place] [address] Laboratory Report Ordering Provider Test Date Status BRITTNY PERRY 02/04/2023 05:04:00 Final Observation Date Value Abnormality Reference (Units ) Status Magnesium 02/04/2023 05:04:00 2.3 1.5-2.6 (m g/dL) Final Performing Location [facility] - [address] [place] [address]
--- OUTSIDE RECORDS SUMMARY | 2023-02-15 00:34 | External Medical Summary ---
Author Name Unknown Address Unknown Organization K01:[facility] [place] [address] [place] [address] Laboratory Report Ordering Provider Test Date Status BRITTNY PERRY 02/02/2023 23:43:00 Final Observation Date Value Abnormality Reference (Units ) Status Troponin T 02/02/2023 23:43:00 116 Above upper panic limits <=14 (ng/L) Final Performing Location [facility] - [address] [place] [address]
--- OUTSIDE RECORDS SUMMARY | 2023-02-15 00:34 | External Medical Summary ---
Author Name Unknown Address Unknown Organization K[facility] - [address] [place] [address] Laboratory Report Ordering Provider Test Date Status BRITTNY PERRY 02/03/2023 03:51:00 Final Observation Date Value Abnormality Reference (Units ) Status Magnesium 02/03/2023 03:51:00 1.9 1.5-2.6 (m g/dL) Final Performing Location [facility] - [address] [place] [address]
--- OUTSIDE RECORDS SUMMARY | 2023-02-15 00:34 | External Medical Summary ---
Author Name Unknown Address Unknown Organization K01:LABORATORY [facility] [place] - [address] [facility] [address] Laboratory Report Ordering Provider Test Date Status BRITTNY PERRY 02/03/2023 02:38:51 Final Observation Date Value Abnormality Reference (Units) Status Color of Urine by Auto 02/03/2023 02:38:51 Light Yellow Colorless, Light Yellow, Yellow, Dark Yellow Final Clarity, Urine 02/03/2023 02:38:51 Clear Clear Final Glucose [Mass/volume] in Urine by Automated test strip 02/03/2023 02:38:51 Negative Negative (mg/dL) Final Bilirubin.total [Presence] in Urine by Automated test strip 02/03/2023 02:38:51 Negative Negative Final Ketones [Mass/volume] in Urine by Automated test strip 02/03/2023 02:38:51 Negative Negative (mg/dL) Final Specific gravity, Urine 02/03/2023 02:38:51 1.049 Above high normal 1.003-1.030 Final Hemoglobin [Presence] in Urine by Automated test strip 02/03/2023 02:38:51 Trace Abnormal Negative Final pH, Urine 02/03/2023 02:38:51 6.0 5.0-7.5 (Units) Final Protein [Mass/volume] in Urine by Automated test strip 02/03/2023 02:38:51 Trace Abnormal Negative (mg/dL) Final Urobilinogen [Mass/volume] in Urine by Automated test strip 02/03/2023 02:38:51 Normal Normal (mg/dL) Final Nitrite [Presence] in Urine by Automated test strip 02/03/2023 02:38:51 Negative Negative Final Leukocyte esterase [Presence] in Urine by Automated test strip 02/03/2023 02:38:51 Small Abnormal Negative Final RBC, Urine 02/03/2023 02:38:51 3-5 Abnormal 0-2 (/HPF) Final WBC, Urine 02/03/2023 02:38:51 6-9 Abnormal 0-2 (/HPF) Final Bacteria [#/area] in Urine sediment by Microscopy high power field 02/03/2023 02:38:51 26-50 Abnormal 0-25 (/HPF) Final Performing Location LABORATORY [facility] [place] - [address] [facility] [address]
--- OUTSIDE RECORDS SUMMARY | 2023-02-15 00:34 | External Medical Summary ---
Author Name Unknown Address Unknown Organization K[facility] - [address] [place] [address] Laboratory Report Ordering Provider Test Date Status BRITTNY PERRY 02/02/2023 23:43:00 Final Observation Date Value Abnormality Reference (Units ) Status Magnesium 02/02/2023 23:43:00 2.0 1.5-2.6 (m g/dL) Final Performing Location [facility] - [address] [place] [address]
--- OUTSIDE RECORDS SUMMARY | 2023-02-15 00:34 | External Medical Summary ---
Author Name Unknown Address Unknown Organization K01:[facility]ATORY [facility] [place] [address] [place] [address] Laboratory Report Ordering Provider Test Date Status BRITTNY PERRY 02/03/2023 03:51:00 Final Observation Date Value Abnormality Reference (Units ) Status Troponin T 02/03/2023 03:51:00 112 Above upper panic limits <=14 (ng/L) Final Performing Location [facility] - [address] [place] [address]
--- OUTSIDE RECORDS SUMMARY | 2023-02-15 00:34 | External Medical Summary ---
Author Name Unknown Address Unknown Organization K01:LABORATORY [address] [address] Laboratory Report Ordering Provider Test Date Status BRITTNY PERRY 02/03/2023 03:51:00 Final Observation Date Value Abnormality Reference (Units ) Status WBC, Total 02/03/2023 03:51:00 13.06 Above high normal 4.00-10.80 (K/uL) Final RBC 02/03/2023 03:51:00 3.31 3.85-5.15 (M/uL) Final Hemoglobin 02/03/2023 03:51:00 9.7 Below low normal 12.0-15.3 (g/dL) Final HCT 02/03/2023 03:51:00 31.2 Below low normal 36.0-45.2 (%) Final MCV 02/03/2023 03:51:00 94.3 81.5-97.5 (fL) Final MCH 02/03/2023 03:51:00 29.3 27.0-34.0 (pg) Final MCHC 02/03/2023 03:51:00 31.1 32.0-36.0 (g/dL) Final RDW 02/03/2023 03:51:00 16.7 11.5-15.5 (%) Final Platelets 02/03/2023 03:51:00 141 140-400 (K/uL) Final MPV 02/03/2023 03:51:00 11.4 6.6-11.1 (fL) Final Nucleated erythrocytes/100 leukocytes [Ratio] in Blood by Automated count 02/03/2023 03:51:00 0 <=0 (/100 WBCs) Final Performing Location LAB[facility]ATORY [facility] [place] - [facility] [address] [facility] [address]
--- OUTSIDE RECORDS SUMMARY | 2023-02-15 00:34 | External Medical Summary ---
Author Name Unknown Address Unknown Organization K01:[facility] [place] [facility] [address] [place] [address] Laboratory Report Ordering Provider Test Date Status BRITTNY PERRY 02/03/2023 03:51:00 Final Observation Date Value Abnormality Reference (Units ) Status BUN 02/03/2023 03:51:00 27 Above high normal 6-20 (mg/dL) Final Creatinine 02/03/2023 03:51:00 0.7 0.5-1.0 (mg/dL) Final Glomerular filtration rate/1.73 sq M.predicted [Volume Rate/Area] in Serum, Plasma or Blood by Creatinine-based formula (CKD-EPI) 02/03/2023 03:51:00 >90 >=60 (mL/min) Final eGFR is calculated based on the CKD-EPI 2020 equation SODIUM 02/03/2023 03:51:00 141 135-146 (m mol/L) Final Potassium 02/03/2023 03:51:00 4.1 3.5-5.1 (m mol/L) Final Cl 02/03/2023 03:51:00 108 Above high normal 98 -107 (mmol/L) Final CO2 02/03/2023 03:51:00 24 22-32 (mmo l/L) Final Anion gap 02/03/2023 03:51:00 9 7-15 (mmol /L) Final Glucose 02/03/2023 03:51:00 112 70-120 (mg /dL) Final Calcium 02/03/2023 03:51:00 8.4 8.4-10.2 ( mg/dL) Final Performing Location [facility] [place] [facility] [address] [place] [address]
--- OUTSIDE RECORDS SUMMARY | 2023-02-15 00:34 | External Medical Summary ---
Author Name Unknown Address Unknown Organization K01:LABORATORY [facility] - [address] [place] [id number] Laboratory Report Ordering Provider Test Date Status BRITTNY PERRY 02/03/2023 02:38:51 Final Observation Date Value Abnormality Reference (Units) Status Bacteria identified in Specimen by Culture 02/03/2023 02:38:51 No significant growth Final Test: Culture, Urine, Quant itative
Specimen Source: Urine, Catheter
Specimen Type: Urine
Specimen Date: 02/03/2023 2:38 AM
Result Date: 02/04/2023 7:32 AM
Result Status: Final result
Resulting Lab: LABORATORY [facility]
[address]
[place] [address]

CULTURE

No significant growth

null Performing Location LABORATORY [facility] - [address] [facility] [address]
--- OUTSIDE RECORDS SUMMARY | 2023-02-15 00:34 | External Medical Summary ---
Author Name Unknown Address Unknown Organization K01:LABORATORY [facility] [place] - [address] [facility] [address] Laboratory Report Ordering Provider Test Date Status BRITTNY PERRY 02/03/2023 03:51:00 Final Observation Date Value Abnormality Reference (Units ) Status Cortisol 02/03/2023 03:51:00 16.3 2.5-19.5 ( ug/dL) Final AM Reference Range: 4.8 - 19 .5 ug/dL
PM Reference Range: 2.5 - 11.9 ug/dL Performing Location LABORATORY [facility] [place] - [address] [place] [address]
--- OUTSIDE RECORDS SUMMARY | 2023-02-15 00:34 | External Medical Summary | Summary of Care ---
Author Name Unknown Organization [facility] [address] [place] [address] Phone [phone] Care Team Providers Care Breakfast Attendant Name Role Phone Rosendo Boyce DO Primary Care Provider Reason for Visit * Reason Comments Retrieval [facility] to [facility] Encounter Details Date Type Department Care Team (Late st Contact Info) Description 02/02/2023 9:00 PM EST Documentation [facility] [place] [address] [place] [address] 2, [facility] [address] [place] [address] Severe bleeding ulcer of esophagus, stomach or [...] MG Sublingual Tablet Sublingual (Nitrostat) 1 Tablet. 0 10/23/2021 Suspended Sucralfate 1 GM/10ML Oral [...] and 1 Capsule before bedtime. 0 11/25/2022 Suspended predniSONE 10 MG Oral Tablet (Deltasone) Take [...] of this encounter Progress Notes * Jed Mendoza, EMT-P - 02/02/2023 11:59 PM EST MEDICARE AMBULANCE INFORMATION SHEET Patient Admitted as an Inpatient: yes Certifying Physician/Ordering Service:[facility] [place] - Kashif Waggoner D.O. [facility] [address] [place] [place] [address] Point of Sander Machine (zip code required): Hospital - [facility] - [address]; [place] [address] Destination (Specify Name/Address): [facility] - [address]; [place] [address] Patient transported to nearest facility (capable of mgmt for Pt's condition): YES Total number of Loaded Miles: 65.8 miles Mode of Transport: Air Completed by: Jed Mendoza EMT-P documented in this encounter Plan of Treatment Upcoming Encounters Date Type Department Care Team (Latest Contact Info) Description 02/28/2023 11:45 AM EST Cardiac Studies Cardiology, [facility] [address] [facility] [place] [address] [facility] [place] [address] 03/12/2023 9:57 AM EST Hospital Encounter OR [facility], Operating Room, [facility] - 4th Floor [address] [place] [address] Hope Stuart MD [address] [place] [address] 03/12/2023 9:57 AM EST - 03/12/2023 11:19 AM EST Surgery OR [facility], Operating Room, [facility] - 4th Floor [address] [place] [address] Hope Stuart MD [address] [place] [address] ESOPHAGOGASTRODUODENOSCOPY (EGD), FLEXIBLE, TRANSORAL, ENDOSCOPIC ULTRASOUND Scheduled [...] 06/01/2020, 05/04/2020 HbA1c 01/21/2024 01/20/2023, 03/08/2019 TSH 01/21/2024 01/20/2023, 12/09/2020, 02/06/2021, Additional history exists Colonoscopy Discontinued 05/23/2015, 05/02, [...] this encounter Medical Devices Implanted Type Area Casing Builder Device Identifier Shelf Expiration Date Model / Serial / Lot Lens Intraoc 17.0 - [id number] - [id number] Implanted:Qty: 1 on 02/01/2020 by Jossue Mancera MD at OR [facility] Right: Eye BAUSCH & LOMB 05/28/2024 [id number] / [id number] / [id number] Lens Intraoc 17.5 - [id number] - [id number] Implanted:Qty: 1 on 02/10/2020 by Jossue Mancera MD at OR [facility] Left: Eye BAUSCH & LOMB 01/29/2024 [id number] / [id number] / [id number] documented as of this encounter Visit Diagnoses [...] Advance Directives occurred with: Patient Care Teams Breakfast Attendant Relationship Specialty Start Date End Date Rosendo Boyce DO [address] [place] [address] PCP - General Family Medicine 06/28/16 documented as of this encounter
--- OUTSIDE RECORDS SUMMARY | 2023-02-15 00:34 | External Medical Summary ---
Author Name Unknown Address Unknown Organization K01:LABORATORY [facility] [place] - [address] [facility] [address] Laboratory Report Ordering Provider Test Date Status BRITTNY PERRY 02/03/2023 03:51:00 Final Observation Date Value Abnormality Reference (Units ) Status TSH 02/03/2023 03:51:00 10.30 Above high normal 0. 27-4.20 (uIU/mL) Final Performing Location LABORATORY [facility] [place] - [facility] [address] [facility] [address]
--- OUTSIDE RECORDS SUMMARY | 2023-02-15 00:34 | External Medical Summary ---
Author Name Unknown Address Unknown Organization K01:LABORATORY [facility] [place] [address] [place] [address] Laboratory Report Ordering Provider Test Date Status BRITTNY PERRY 02/02/2023 23:43:00 Final Warfarin Therapy
INR: 2 .0-3.0 conventional anticoagulation
INR: 2.5- 3.5 high intensity anticoagulation Observation Date Value Abnormality Reference (Units ) Status PT 02/02/2023 23:43:00 16.5 Above high normal 11 .6-15.2 (seconds) Final INR 02/02/2023 23:43:00 1.3 Above high normal 0. 8-1.2 Final Performing Location LABORATORY [facility] [place] - [address] [place] [address]
--- OUTSIDE RECORDS SUMMARY | 2023-02-15 00:34 | External Medical Summary ---
Author Name Unknown Address Unknown Organization K01:[facility] [place] [address] [facility] [address] [facility] [address] Laboratory Report Ordering Provider Test Date Status BRITTNY PERRY 02/02/2023 23:43:00 Final Anticoagulation may affect t esting. Refer to [facility]) Test Catalog for a list of effects. Observation Date Value Abnormality Reference (Units ) Status aPTT panel - Platelet poor plasma 02/02/2023 23:43:00 29 21-38 (seconds) Final Performing Location [facility] [place] [address] [place] [address]
--- OUTSIDE RECORDS SUMMARY | 2023-02-15 00:34 | External Medical Summary ---
Author Name Unknown Address Unknown Organization K01:[facility]ORY [facility] [place] [address] [facility] [address] [facility] [address] Laboratory Report Ordering Provider Test Date Status BRITTNY PERRY 02/03/2023 03:51:00 Final Observation Date Value Abnormality Reference (Units ) Status Calcium.ionized [Moles/volume] in Serum or Plasma by Ion-selective membrane electrode (ISE) 02/03/2023 03:51:00 1.13 1.13-1.32 (mmol/L) Final This test was developed and its performance characteristics dtermined by [facility]. It has not been cleared or approved by the [place] Food and Drug Administration Performing Location LABORATORY [place] [address] [address] [facility] [address]
--- OUTSIDE RECORDS SUMMARY | 2023-02-15 00:34 | External Medical Summary ---
Author Name Unknown Address Unknown Organization K01[facility] [address] [place] [address] Laboratory Report Ordering Provider Test Date Status BRITTNY PERRY 02/03/2023 03:51:00 Final Observation Date Value Abnormality Reference (Units ) Status Phosphate 02/03/2023 03:51:00 3.7 2.5-4.8 (m g/dL) Final Performing Location [facility] - [address] [place] [address]
--- OUTSIDE RECORDS SUMMARY | 2023-02-15 00:34 | External Medical Summary ---
Author Name Unknown Address Unknown Organization K01:LABORATORY C - [address] [facility] [address] Laboratory Report Ordering Provider Test Date Status BRITTNY PERRY 02/03/2023 03:51:00 Final Observation Date Value Abnormality Reference (Units ) Status T4, Free 02/03/2023 03:51:00 1.5 0.9-1.7 (n g/dL) Final Performing Location [facility] - [address] [facility] [address]
--- OUTSIDE RECORDS SUMMARY | 2023-02-15 00:34 | External Medical Summary ---
Author Name Unknown Address Unknown Organization K01:[facility]ATORY [facility] [place] [facility] [place] [address] [place] [address] Laboratory Report Ordering Provider Test Date Status BRITTNY PERRY 02/02/2023 23:43:00 Final Observation Date Value Abnormality Reference (Units ) Status ABO 02/02/2023 23:43:00 O Final RH 02/02/2023 23:43:00 Positive Final RED BLOOD CELL ANTIBODY SCREEN 02/02/2023 23:43:00 Negative Final SPECIMEN EXPIRATION DATE 02/02/2023 23:43:00 02/05/2023 23:59 Final Performing Location LAB[facility]ORY [facility] [place] [facility] - [address] [place] [address]
--- OUTSIDE RECORDS SUMMARY | 2023-02-15 00:35 | External Medical Summary ---
Author Name Unknown Address Unknown Organization K01:LABORATORY [place] [address] [address] [facility] [address] [facility] [address] Laboratory Report Ordering Provider Test Date Status BRITTNY PERRY 02/02/2023 23:43:00 Final Observation Date Value Abnormality Reference (Units ) Status Clot formation [Time] in Blood by Thromboelastography 02/02/2023 23:43:00 4.8 2.5-8.3 (minutes) Final Clot strength in Blood by Thromboelastography 02/02/2023 23:43:00 1.3 0.5-3.7 (minutes) Final Clot angle in Blood by Thromboelastography 02/02/2023 23:43:00 71.5 46.8-78.4 (degrees) Final Maximum clot firmness [Length] in Blood by Thromboelastography 02/02/2023 23:43:00 62.7 50.6-72.5 (mm) Final Coagulation index in Blood b y Thromboelastography 02/02/2023 23:43:00 1.7 -3.0-3.0 Final Clot Lysis [Length fraction] in Blood by Thromboelastography --30 minutes post maximum clot amplitude 02/02/2023 23:43:00 1.4 0.0-7.5 (%) Final This is an appended report. These results have been appended to a previously preliminary verified report. Performing Location LAB[facility]ORY [facility] [place] [facility] [address] [facility] [address] [facility] [address]
--- OUTSIDE RECORDS SUMMARY | 2023-02-15 00:35 | External Medical Summary ---
Author Name Unknown Address Unknown Organization K01:LABORATORY [address] [address] Laboratory Report Ordering Provider Test Date Status BRITTNY PERRY 02/02/2023 23:43:00 Final Observation Date Value Abnormality Reference (Units ) Status WBC, Total 02/02/2023 23:43:00 8.36 4.00-10.80 (K/uL) Final RBC 02/02/2023 23:43:00 3.20 3.85-5.15 (M/uL) Final Hemoglobin 02/02/2023 23:43:00 9.3 Below low normal 12.0-15.3 (g/dL) Final HCT 02/02/2023 23:43:00 30.1 Below low normal 36.0-45.2 (%) Final MCV 02/02/2023 23:43:00 94.1 81.5-97.5 (fL) Final MCH 02/02/2023 23:43:00 29.1 27.0-34.0 (pg) Final MCHC 02/02/2023 23:43:00 30.9 32.0-36.0 (g/dL) Final RDW 02/02/2023 23:43:00 16.8 11.5-15.5 (%) Final Platelets 02/02/2023 23:43:00 125 Below low normal 140-400 (K/uL) Final MPV 02/02/2023 23:43:00 11.5 6.6-11.1 (fL) Final Nucleated erythrocytes/100 leukocytes [Ratio] in Blood by Automated count 02/02/2023 23:43:00 0 <=0 (/100 WBCs) Final Performing Location [facility]ORY [facility] [place] [facility] [address] [facility] [address]
--- OUTSIDE RECORDS SUMMARY | 2023-02-15 00:35 | External Medical Summary ---
Author Name Unknown Address Unknown Organization K01:LAB[facility]ORY [facility] [place] [address] [facility] [address] [facility] [address] Laboratory Report Ordering Provider Test Date Status BRITTNY PERRY 02/02/2023 23:43:00 Final Observation Date Value Abnormality Reference (Units ) Status Calcium.ionized [Moles/volume] in Serum or Plasma by Ion-selective membrane electrode (ISE) 02/02/2023 23:43:00 1.14 1.13-1.32 (mmol/L) Final This test was developed and its performance characteristics dtermined by [employer]. It has not been cleared or approved by the [place] Food and Drug Administration Performing Location LABORATORY [place] [address] [address] [facility] [facility] [address]
--- OUTSIDE RECORDS SUMMARY | 2023-02-15 00:35 | External Medical Summary ---
Author Name Unknown Address Unknown Organization K01:[facility]ORY [facility] - [address] [place] [address] Laboratory Report Ordering Provider Test Date Status BRITTNY PERRY 02/02/2023 23:43:00 Final Observation Date Value Abnormality Reference (Units ) Status Phosphate 02/02/2023 23:43:00 3.8 2.5-4.8 (m g/dL) Final Performing Location [facility]ORY [facility] - [address] [place] [address]
--- OUTSIDE RECORDS SUMMARY | 2023-02-15 00:35 | External Medical Summary ---
Author Name Unknown Address Unknown Organization [id number]:LABORATORY [facility] [place] - [facility] [address] [facility] [address] [facility] [address] Laboratory Report Ordering Provider Test Date Status BRITTNY PERRY 02/02/2023 23:43:00 Final If R time > 20 minutes and n o clot formed suggesting hypocoagulable state or interfering substance (anticoagulation). Consider resubmitting a new sample and/or checking PT/INR, aPTT, fibrinogen, and platelet count. Observation Date Value Abnormality Reference (Units ) Status Clot formation [Time] in Blood by Thromboelastography 02/02/2023 23:43:00 4.5 2.5-8.3 (minutes) Final Clot strength in Blood by Thromboelastography 02/02/2023 23:43:00 1.4 0.5-3.7 (minutes) Final Clot angle in Blood by Thromboelastography 02/02/2023 23:43:00 70.2 46.8-78.4 (degrees) Final Maximum clot firmness [Length] in Blood by Thromboelastography 02/02/2023 23:43:00 61.5 50.6-72.5 (mm) Final Coagulation index in Blood b y Thromboelastography 02/02/2023 23:43:00 1.6 -3.0-3.0 Final Clot Lysis [Length fraction] in Blood by Thromboelastography --30 minutes post maximum clot amplitude 02/02/2023 23:43:00 0.5 0.0-7.5 (%) Final This is an appended report. These results have been appended to a previously preliminary verified report. Performing Location LABORATORY [facility] [place] - [facility] [address] [facility] [address] [facility] [address]
--- OUTSIDE RECORDS SUMMARY | 2023-02-15 00:35 | External Medical Summary ---
Author Name Unknown Address Unknown Organization [id number]:LABORATORY [facility] [place] - [address] [facility] [address] Laboratory Report Ordering Provider Test Date Status BRITTNY PERRY 02/02/2023 23:43:00 Final Observation Date Value Abnormality Reference (Units ) Status Lactic Acid, Whole Blood 02/02/2023 23:43:00 1.8 0.4-2.0 (mmol/L) Final Performing Location LABORATORY [facility] [place] - [address] [facility] [address]
--- OUTSIDE RECORDS SUMMARY | 2023-02-15 00:35 | External Medical Summary ---
Author Name Unknown Address Unknown Organization [id number]:LABORATORY [facility] [place] - [facility] [address] [address] Laboratory Report Ordering Provider Test Date Status BRITTNY PERRY 02/02/2023 23:43:00 Final Observation Date Value Abnormality Reference (Units ) Status Albumin 02/02/2023 23:43:00 2.9 Below low normal 3.8-5.0 (g/dL) Final AST (Aspartate aminotransferase) 02/02/2023 23:43:00 33 10-35 (U/L) Final Alk Phos 02/02/2023 23:43:00 74 35-130 (U/L) Final ALT (Alanine aminotransferase) 02/02/2023 23:43:00 18 10-35 (U/L) Final Bilirubin, Total 02/02/2023 23:43:00 0.6 <=1.2 (mg/dL) Final Bilirubin, Direct 02/02/2023 23:43:00 0.3 0.0-0.3 (mg/dL) Final Protein 02/02/2023 23:43:00 6.4 6.0-8.3 (g/dL) Final Performing Location LABORATORY [facility] [place] - [address] [place] [address]
--- OUTSIDE RECORDS SUMMARY | 2023-02-15 00:35 | External Medical Summary ---
Author Name Unknown Address Unknown Organization [id number]:LABORATORY [facility] [place] - [facility] [address] [facility] [address] [place] [address] Laboratory Report Ordering Provider Test Date Status BRITTNY PERRY 02/02/2023 23:43:00 Final Observation Date Value Abnormality Reference (Units ) Status BUN 02/02/2023 23:43:00 23 Above high normal 6-20 (mg/dL) Final Creatinine 02/02/2023 23:43:00 0.7 0.5-1.0 (mg/dL) Final Glomerular filtration rate/1.73 sq M.predicted [Volume Rate/Area] in Serum, Plasma or Blood by Creatinine-based formula (CKD-EPI) 02/02/2023 23:43:00 87 >=60 (mL/min) Final eGFR is calculated based on the CKD-EPI 2020 equation SODIUM 02/02/2023 23:43:00 140 135-146 (m mol/L) Final Potassium 02/02/2023 23:43:00 4.2 3.5-5.1 (m mol/L) Final Cl 02/02/2023 23:43:00 106 98-107 (mm ol/L) Final CO2 02/02/2023 23:43:00 25 22-32 (mmo l/L) Final Anion gap 02/02/2023 23:43:00 9 7-15 (mmol /L) Final Glucose 02/02/2023 23:43:00 113 70-120 (mg /dL) Final Calcium 02/02/2023 23:43:00 8.3 Below low normal 8.4 -10.2 (mg/dL) Final Performing Location LABORATORY [facility] [place] - [facility] [address] [place] [address]
--- OUTSIDE RECORDS SUMMARY | 2023-02-15 00:35 | External Medical Summary ---
Author Name Unknown Address Unknown Organization K01:LABORATORY [facility] [place] - [address] [place] [address] Laboratory Report Ordering Provider Test Date Status BRITTNY PERRY 02/02/2023 23:43:00 Final Exclude Heart Failure: <300 pg/mL
Diagnose Heart Failure:
Age <50 yr: >450 pg/mL
50-75 yr: >900 pg/mL
>75 yr: >1800 pg/mL
GFR is 30-59 mL/min: >1200 pg/mL or Age- adjusted values
GFR <30 mL/min: do not use, not reliable

Prognostic threshold: 1000 pg/mL Observation Date Value Abnormality Reference (Units ) Status BNP, Pro-hormone 02/02/2023 23:43:00 6933 Above high no rmal <300 (pg/mL) Final Performing Location LABORATORY [facility] [place] - [facility] [address] [place] [address]
[2023-02-15] MEDS: PANTOprazole 40 MG in DEXTROSE 5% MINI-B 100 ML IV SCH ×4 (02:34→18:14)
[2023-02-15] MEDS: PIPERACILLIN/TAZOBACTAM 4.5 GM in DEXTROSE 5% MINI-B 100 ML IV SCH ×3 (05:52→22:00)
[2023-02-15] MEDS: LEVOTHYROXINE SODIUM 50 MCG TABLET PO SCH (05:53)
[2023-02-15 06:17] LABS: Hemoglobin 8.8 g/dl (12.0-16.0); Mean Corpuscular Hemoglobin 27.8 pg (25.0-34.0); Mean Corpuscular Hgb Conc 31.4 g/dL (32.0-36.0); Mean Corpuscular Volume 88.6 fL (80.0-100.0); Mean Platelet Volume 11.2 fL (9.4-12.4); Platelet Count 218 K/uL (130-400); RDW Coefficient of Variation 17.5 % (11.5-14.5); RDW Standard Deviation 55.2 fL (36.4-46.3); Red Blood Count 3.16 M/uL (4.20-5.40); White Blood Count 5.38 K/ul (4.8-10.8)
[2023-02-15 06:32] LABS: Calcium 8.2 mg/dl (8.6-10.3); Potassium 2.9 mmol/L (3.5-5.1)
[2023-02-15 06:37] LABS: BUN Creatinine Ratio 18.1 (10-20); Est GFR (African American) 94.3 ml/min; Est GFR (Non-African American) 81.3 ml/min
[2023-02-15] MEDS: MIDODRINE HCL 2.5 MG TAB PO SCH ×3 (08:24→18:02)
[2023-02-15] MEDS: CYANOCOBALAMIN (B-12) 500 MCG TABLET PO SCH (08:27)
[2023-02-15] MEDS: SPIRONOLACTONE 25 MG TAB PO SCH (08:28)
[2023-02-15] MEDS: POLYETHYLENE (MIRALAX) 17 GM PACK PO SCH (08:28)
[2023-02-15] MEDS: AMIODARONE 200 MG TAB PO SCH ×2 (08:28→20:07)
[2023-02-15] MEDS: FUROSEMIDE 40 MG/4 ML VIAL IV SCH ×2 (08:51→20:08)
[2023-02-15] MEDS: POTASSIUM CHLORIDE CRTAB 20 MEQ TABCR PO SCH ×2 (08:58→20:08)
[2023-02-15] MEDS: POTASSIUM CHLORIDE / WTR 10 MEQ/100 ML PLCT IV SCH ×3 (08:59→12:25)
--- NOTE | 2023-02-15 10:51 | Cardiology Progress Note ---
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 - ? Pleurx catheter - recommend additional discussions for hospice. I provided 55 min of care to the patient and discussed the management of AL Cardiac amyloidosis. Admission and Anticipated Discharge Date Admission Date: February 13, 2023 Subjective Lying flat in bed with O2 via nc. No chest pain. Review of Systems Review of Systems: Complete Review of Systems is as stated above, negative, or noncontributory. Physical Exam Physical Exam: AAOx3; NAD; wearing O2 via nc. Constitutional: WD/WN, vitals as above Respiratory: Decreased breath sounds L-Lobe. Diffuse expiratory wheezing b/l. Cardiovascular: RRR, no murmur, no edema Gastrointestinal (Abdomen): Inspection/Auscultation: abdomen normal to inspection Musculoskeletal: No significant lower extremity edema. Psychiatric: A+Ox3, euthymic affect Results & Data Vital Signs (Past 12 Hours) Vital Signs Temp Pulse Pulse Resp BP BP Pulse Ox 02/15/23 09:00 02/15/23 07:58 36.4 C L 61 20 96/64 L 96 02/15/23 03:28 36.5 C 63 17 96/58 L 98 02/15/23 02:15 62 02/14/23 23:09 36.5 C 61 17 93/52 L 99 Pulse Ox O2 Del Method O2 Del Method O2 Flow Rate 02/15/23 09:00 96 Nasal Cannula 02/15/23 07:58 Nasal Cannula 3.0 02/15/23 03:28 Nasal Cannula 3 02/15/23 02:15 02/14/23 23:09 Nasal Cannula 3
--- NOTE | 2023-02-15 10:57 | XRay Report ---
KUB CLINICAL HISTORY: Generalized abdominal pain. FINDINGS: 2 AP, portable, supine abdominal radiographs are correlated with abdominal CT dated 023. There is a nonobstructed abdominal bowel gas pattern. A common bile duct stent is in place. No e vidence of intraperitoneal free air is seen on these supine images. There are no abnormal abdominal c alcifications. The skeletal structures are osteopenic and appear intact. The heart is enlarged. Pacem myriam leads are in place and there is evidence of previous cardiac valve surgery. There are layering p leural effusions with dependent consolidation. IMPRESSION: 1. Nonobstructed bowel gas pattern. 2. A common bile duct stent is in place. 3. Cardiomegaly, bilateral pleural effusions, and dependent consolidation. Electronically signed by: Kashif Rios M.D. 02/15/2023 10:55 AM
--- NOTE | 2023-02-15 14:51 | Pulmonology Progress Note ---
Date of Service February 15, 2023 Assessment & Plan (1) Acute GI bleeding: (2) Pleural effusion due to CHF (congestive heart failure): (3) Atrial fibrillation: Atrial fibrillation type: paroxysmal Qualified Code(s): I48.0 - Paroxysmal atrial fibrillation (4) Pleural effusion: (5) Cardiac amyloidosis: (6) Multiple myeloma: Multiple myeloma remission status: unspecified Qualified Code(s): C90.00 - Multiple myeloma not having achieved remission (7) Ascites: Ascites type: other type Qualified Code(s): R18.8 - Other ascites Plan 77 year old female with multiple medical problems including MM, cardiac amyl oidosis, anasarca, recurrent pleural effusions, and UGIB presents with BRBPR. She has a recent complicated hospitalization history most recently discharged from [facility] less than a week ago. 1. GIB - s/p EGD. colonoscopy incomplete due to poor prep. H&H stable. 2. bilateral pleural effusion, L>R - s/p left thoracentesis 02/13. transudative. POCUS today showed moderate left pleural effusion. agree with diuresis lasix 40 BID and spironolactone per cardiology. 3. anasarca - POCUS today showed small amount of ascites not amenable to drainage. 4. Hypotension - Recommend titrating up midodrine as needed. Add albumin. 5. afib - amio. AC on hold. 6. cardiac amyloidosis Discussed with RN. Admission and Anticipated Discharge Date Admission Date: February 13, 2023 Subjective no complaints. Physical Exam Constitutional: + ill appearing, + thin and + underweigh t Respiratory: Auscultation: + diminished lung sounds and + crackles Cardiovascular: Rate/Rhythm: regular rate and regular rhythm Skin: no rashes, warm and dry Neurologic: PERRL, EOMI, accommodation nl, no face palsy, no dysarthria Results & Data Results & Data Vital Signs (Past 12 Hours) Vital Signs Temp Pulse Pulse Resp BP BP Pulse Ox 02/15/23 11:13 36.6 C 60 18 99/62 L 98 02/15/23 09:00 02/15/23 08:54 62 02/15/23 07:58 36.4 C L 61 20 96/64 L 96 02/15/23 07:57 02/15/23 03:28 36.5 C 63 17 96/58 L 98 Pulse Ox O2 Del Method O2 Del Method O2 Flow Rate 02/15/23 11:13 Nasal Cannula 3.5 02/15/23 09:00 96 Nasal Cannula 02/15/23 08:54 02/15/23 07:58 Nasal Cannula 3.0 02/15/23 07:57 Nasal Cannula 3 02/15/23 03:28 Nasal Cannula 3 PG Care Time/CCT Total # of Minutes Spent Total Time Spent with Patient: Total time spent is greater than 50% in coordination of care (as documented) at patient's floor/unit and/or counseling patient: Coding Level of Care Code 57790 SUB INP/OBS CARE 2/35MIN Diagnoses Acute GI bleeding K92.2 Pleural effusion due to CHF (congestive heart failure) I50.9 Paroxysmal atrial fibrillation I48.0 Atrial fibrillation type: paroxysmal Pleural effusion J90 Cardiac amyloidosis E85.4; I43 Multiple myeloma, remission status unspecified C90.00 Multiple myeloma remission status: unspecified Other ascites R18.8 Ascites type: other type
[2023-02-15 15:09] LABS: BUN Creatinine Ratio 19.4 (10-20); Calcium 8.2 mg/dl (8.6-10.3); Est GFR (African American) 94.3 ml/min; Est GFR (Non-African American) 81.3 ml/min; Potassium 3.8 mmol/L (3.5-5.1)
--- NOTE | 2023-02-15 17:34 | Hospitalist Progress Note ---
Date of Service February 15, 2023 Assessment & Plan (1) Acute GI bleeding: Plan: Patient is a 77 yr female with H/O chronic diastolic CHF, idiopathic cardiomyopathy, cardiac amyloidosis, tachybradycardia syndrome s/p pacemaker, left ventricle hypertrophy, chronic atrial fibrillation, acute gastric ulcer with hemorrhage, multiple myeloma s/p chemo, hemorrhagic shock presents with GI bleed. Patient was admitted on January 07, 2023 with A-fib and biliary colic. She also found to have tachybradycardia syndrome and s/p pacemaker on January 13. Postprocedure had small pneumothorax. She also s/p ERCP for choledocholithiasis s/p 1 plastic biliary stent was placed in the common bile duct and plan was to repeat ERCP in 2 months to remove the stent and possible axios stent placement. EGD done showed nonbleeding gastric ulcers. Patient was again admitted on January 27, 2023 for acute on chronic heart failure with preserved ejection fraction and pleural effusion. Seen by pulmonary but as there was no significant hypoxia thoracocentesis was not done. Was treated with IV diuretics. Pacemaker interrogation was done which showed stable thresholds.Her Eliquis restarted January given risk of stroke with atrial fibrillation and amyloidosis and she was discharged on February 01. On February 02 she was admitted for GI bleed, looks like she had history of gastric ulcer requiring Endo Clip in September 2021.She was having hematemesis and also rect al bleed during February 02 admission. Significant hematemesis in the ER. Seems filled whole emesis basin full of bright red blood .Had hypotension and an episode of syncope. Massive transfusion protocol was initiated and she received Kcentra , FFP and as well as TXA. Received 2 units of PRBC . Patient had emergent EGD. EGD revealed large cratered ulcer in the gastric antrum which was significantly increased in size when compared to prior EGD along with stigmata of recent bleeding. Received IV Rocephin for Klebsiella urine culture from January 27. Patient was seen by the critical care. Patient also seen by general surgery and because of her cardiac issues recommended transfer to tertiary care.Patient was transferred to [facility] for large cratered gastric antral ulcer concern for impending perforation. As per patient at [place] she had EGD and ulcer was sprayed and had another EGD. She was monitored in the ICU. As per epic patient had EGD on February 03 which showed nonobstructing gastric ulcer with oozing hemorrhage .Hemostatic spray applied. And returned to ICU for repeat EGD in 1 to 2 days. Patient had repeat EGD on February 06. Nonbleeding gastric ulcer with a clean ulcer base was found. And advised for omeprazole 40 mg p.o. twice daily for 8 weeks and to repeat EGD to check healing seems to be done when EUS with gallbladder drainage and ERCP planned. Patient was discharged last Friday to home. Patient states after going home she was feeling very weak and tired. Mostly bedbound. Having abdominal pain. Poor appetite. Tonight again she had a bloody bowel movement which prompted her to come to the ER. Hemoccult was positive in the ER. Hemoglobin is 9.5. Acute GI bleeding ? Secondary to bleeding peptic ulcers H/O peptic ulcer disease Constipation/? Possible fecal impaction --S/P EGD:Normal upper third of esophagus and middle third of esophagus. Mild Schatzki ring. Large hiatal hernia with multiple Elías ulcers. Non-obstructing non-bleeding gastric ulcer with no stigmata of bleeding. Normal examined duodenum. No specimens collected. --CT ABD: Patient is status post internalized biliary stent with proximal coil at the hepatic hilum and distal coil within the duodenum. Moderate volume mesenteric volume of abdominal and pelvic ascites. Previously noted soft tissue mass within the stomach is not visualized. If there is further concern for ulcer, consider direct inspection or fluoroscopic imaging. Findings suspicious for systemic volume overload with large bilateral pleural effusions, moderate mesenteric ascites, and anasarca. Rectal vault distention measuring 6.4 cm. No evidence of adjacent stranding. Stercoral colitis is less likely. Consider disimpaction. Diffuse gallbladder wall thickening with adjacent stranding. Findings may be due to volume overload or low protein state. If there is further concern for cholecystitis, consider HIDA imaging. No other acute findings. --S/P colonoscopy on 02/14/23:Preparation of the colon was inadequate. Hemorrhoids found on perianal exam. Stool in the rectum and in the sigmoid colon. No specimens collected. -- Monitor H&H and transfuse PRBCs as needed Continue IV Protonix, Carafate Appreciate GI input Empirically on Zosyn Continue enema, MiraLAX daily as recommended by GI Needs repeat colonoscopy in 3 months given suboptimal preparation Hemoglobin 8.8 Advance to full liquid diet today Continue tapwater enema as recommended by MALCOM Kam Acute decompensated diastolic CHF-POA --CXR:Increase in size of a large left pleural effusion. Slight increase in a small right pleural effusion. Cardiomegaly with mild interstitial pulmonary edema. -- CT abdomen as above --ECHO: Large left pleural effusion. Trivial loculated right lateral pericardial effusion. No echocardiogenic indications of cardiac tamponade. Dilated inferior vena cava with reduced collapsibility with sniff indicates an elevated right atrial pressure of 15 mmHg. --S/P thoracentesis on 02/13/23 -- Follow-up pleural fluid studies Monitor volume status closely Appreciate Pulmonology, Cardiology help Continue supplemental oxygen Add Aldactone Continue IV Lasix 40 mg twice daily Added albumin If no improvement, will consider palliative evaluation Hemorrhoids Symptomatic management Hypokalemia Replete electrolytes as needed Monitor Heart failure with preserved ejection fraction Cardiac amyloidosis --Recently started on supplemental oxygen--2 L Monitor volume status Appreciate cardiology input Diuresis as above Chronic hypotension Continue midodrine Monitor BP History of A-fib Tachybradycardia syndrome S/p pacemaker Continue Amiodarone Eliquis on hold due to GI bleed H/O choledocholithiasis S/P biliary sphincterotomy and balloon extraction, plastic biliary stent placement in the common bile duct on 01/10/2023. Plan for repeat ERCP for stent removal --2 months from stent placement Also plan for endoscopic ultrasound-guided gallbladder drainage using axios stent as patient was deemed to be nonsurgical candidate at the time. Normal LFTs History of multiple myeloma s/p chemo Follow-up with heme-onc Hypothyroidism TSH elevated, normal free T4 Continue levothyroxine Will need repeat thyroid function test as outpatient DVT Px: SCDs Re: GI bleed Code Status Full code Admission and Anticipated Discharge Date Admission Date: February 13, 2023 Subjective Patient is seen and examined at bedside States feeling very weak Less cough today Denies any significant abdominal pain during my encounter Tolerates liquid diet Denies any recurrence of bleeding issues Shortness of breath improved Saturating well on 2 L supplemental oxygen Review of Systems Review of Systems: All systems reviewed & are unremarkable except as noted in Subjective Physical Exam Physical Exam: Physical Exam: Vitals signs as noted above General Appearance:Thin, frail, no apparent distress, Ill appearing Head: normocephalic, Atraumatic Eyes: normal inspection, EOMI Neck: supple, Trachea midline Respiratory/Chest: Decreased breath sounds, scattered wheezes, No accessory muscle use Cardiovascular: S1, S2, No murmur Abdomen/GI:Soft, distended, non tender, Bowel sounds present Extremities/Musculoskeletal:normal inspection, no edema Neurologic/Psych:AAOX3, grossly no focal neurological deficits Skin: normal color, warm Results & Data Results & Data Vital Signs (Past 12 Hours) Vital Signs Temp Pulse Pulse Resp BP Pulse Ox Pulse Ox 02/15/23 16:11 36.6 C 62 18 123/75 95 02/15/23 11:13 36.6 C 60 18 99/62 L 98 02/15/23 09:00 96 02/15/23 08:54 62 02/15/23 07:58 36.4 C L 61 20 96/64 L 96 02/15/23 07:57 O2 Del Method O2 Del Method O2 Flow Rate 02/15/23 16:11 Nasal Cannula 2.0 02/15/23 11:13 Nasal Cannula 3.5 02/15/23 09:00 Nasal Cannula 02/15/23 08:54 02/15/23 07:58 Nasal Cannula 3.0 02/15/23 07:57 Nasal Cannula 3 Laboratory Results Short CBC 02/14/23 02/15/23 Range/Units 21:34 05:43 WBC 5.38 (4.8-10.8) K/ul Hgb 9.2 L 8.8 L (12.0-16.0) g/dl Hct 29.6 L 28.0 L (37.0-47.0) % Plt Count 218 (130-400) K/uL BMP 02/15/23 02/15/23 05:43 14:23 Sodium 138 135 L Potassium 2.9 L 3.8 D Chloride 104 103 Carbon Dioxide 28 26 BUN 13 14 Creatinine 0.72 0.72 Glucose 96 132 H Calcium 8.2 L 8.2 L
[2023-02-15] MEDS: ALBUMIN 25% 25 GM/100 ML VIAL IV SCH (18:03)
[2023-02-15] MEDS: PANTOprazole 40 MG in SYRINGE 0 ML IV SCH (20:06)
[2023-02-16] MEDS: ALBUMIN 25% 25 GM/100 ML VIAL IV SCH ×2 (05:15→17:09)
[2023-02-16] MEDS: LEVOTHYROXINE SODIUM 50 MCG TABLET PO SCH (05:52)
[2023-02-16] MEDS: PIPERACILLIN/TAZOBACTAM 4.5 GM in DEXTROSE 5% MINI-B 100 ML IV SCH ×3 (05:52→20:21)
[2023-02-16] MEDS: MIDODRINE HCL 2.5 MG TAB PO SCH ×3 (07:21→17:08)
[2023-02-16 07:50] LABS: BUN Creatinine Ratio 16.9 (10-20); Calcium 8.2 mg/dl (8.6-10.3); Creatinine Clr Calc Pharmacy 55.8 ml/min; Est GFR (African American) 95.9 ml/min; Est GFR (Non-African American) 82.7 ml/min; Magnesium 1.9 mg/dl (1.7-2.4); Potassium 3.7 mmol/L (3.5-5.1)
[2023-02-16 08:04] LABS: Thyroid Stimulating Hormone 10.336 uIu/ml (0.300-4.500)
[2023-02-16 08:39] LABS: T4 Free Thyroxine 1.37 ng/dl (0.61-1.60)
[2023-02-16] MEDS: PANTOprazole 40 MG in SYRINGE 0 ML IV SCH ×2 (09:30→20:12)
[2023-02-16] MEDS: FUROSEMIDE 40 MG/4 ML VIAL IV SCH ×2 (09:30→20:12)
[2023-02-16] MEDS: SPIRONOLACTONE 25 MG TAB PO SCH (09:30)
[2023-02-16] MEDS: POTASSIUM CHLORIDE CRTAB 20 MEQ TABCR PO SCH (09:30)
[2023-02-16] MEDS: CYANOCOBALAMIN (B-12) 500 MCG TABLET PO SCH (09:30)
[2023-02-16] MEDS: AMIODARONE 200 MG TAB PO SCH ×2 (09:31→20:12)
[2023-02-16] MEDS: POLYETHYLENE (MIRALAX) 17 GM PACK PO SCH (09:31)
--- NOTE | 2023-02-16 14:56 | Cardiology Progress Note ---
Date of Service February 16, 2023 Assessment & Plan (1) Acute GI bleeding: (2) Acute on chronic heart failure with preserved ejection fraction (HFpEF): (3) Tachy-walker syndrome: (4) Paroxysmal atrial fibrillation: (5) Cardiac amyloidosis: (6) Pleural effusion due to CHF (congestive heart failure): Plan Advanced AL cardiac amyloidosis, previously on hospice; multiple complex hospital stays over the few months Acute decompensated diastolic congestive heart failure, NYHA class III-IV, with associated pleural effusions - able to lie flat but has significant pulmonary edema - continue IV lasix 40mg BID - continue Spironolactone 25 mg/day - Continue sodium and fluid restrictions - Continue amiodarone - Maintain normokalemia as well as normomagnesemia. - ? Pleurx catheter - recommend additional discussions for hospice. I discussed this with her and she seems amenable to pursue this option. I provided 55 min of care to the patient and discussed the management of AL Cardiac amyloidosis. Admission and Anticipated Discharge Date Admission Date: February 13, 2023 Subjective Patient is seen and examined at bedside States feeling very weak Severe dyspnea Review of Systems Review of Systems: Complete Review of Systems is as stated above, negative, or noncontributory. Physical Exam Physical Exam: (+) exhausted. NAD; wearing O2 via nc. Constitutional: WD/WN, vitals as above Cardiovascular: RRR, no murmur, no edema Gastrointestinal (Abdomen): Inspection/Auscultation: abdomen normal to inspection Psychiatric: A+Ox3, euthymic affect Results & Data Vital Signs (Past 12 Hours) Vital Signs Temp Pulse Pulse Resp BP BP Pulse Ox 02/16/23 11:49 36.5 C 60 24 114/66 95 02/16/23 08:30 02/16/23 07:51 36.5 C 60 19 100/63 97 02/16/23 05:59 61 02/16/23 03:26 36.5 C 60 17 125/69 95 O2 Del Method O2 Flow Rate 02/16/23 11:49 Nasal Cannula 2.0 02/16/23 08:30 Nasal Cannula 2 02/16/23 07:51 Nasal Cannula 2.0 02/16/23 05:59 02/16/23 03:26 Nasal Cannula 2 Results BMP Results: Sodium 138 mmol/L (136-145) 02/16/23 Potassium 3.7 mmol/L (3.5-5.1) 02/16/23 Chloride 105 mmol/L (98-107) 02/16/23 Carbon Dioxide 26 mmol/L (21-32) 02/16/23 Anion Gap 7 (3-11) 02/16/23 BUN 12 mg/dl (6-23) 02/16/23 Creatinine 0.71 mg/dl (0.6-1.2) 02/16/23 Glucose 89 mg/dl (70-99(Fasting)) 02/16/23 Results Complete Blood Count Results: RBC 3.16 M/uL (4.20-5.40) L 02/15/23 WBC 5.38 K/ul (4.8-10.8) 02/15/23 Hgb 8.8 g/dl (12.0-16.0) L 02/15/23 Hct 28.0 % (37.0-47.0) L 02/15/23 Plt Count 218 K/uL (130-400) 02/15/23
--- NOTE | 2023-02-16 16:18 | Hospitalist Progress Note ---
Date of Service February 16, 2023 Assessment & Plan (1) Acute GI bleeding: Plan: Patient is a 77 yr female with H/O chronic diastolic CHF, idiopathic cardiomyopathy, cardiac amyloidosis, tachybradycardia syndrome s/p pacemaker, left ventricle hypertrophy, chronic atrial fibrillation, acute gastric ulcer with hemorrhage, multiple myeloma s/p chemo, hemorrhagic shock presents with GI bleed. Patient was admitted on January 07, 2023 with A-fib and biliary colic. She also found to have tachybradycardia syndrome and s/p pacemaker on January 13. Postprocedure had small pneumothorax. She also s/p ERCP for choledocholithiasis s/p 1 plastic biliary stent was placed in the common bile duct and plan was to repeat ERCP in 2 months to remove the stent and possible axios stent placement. EGD done showed nonbleeding gastric ulcers. Patient was again admitted on January 27, 2023 for acute on chronic heart failure with preserved ejection fraction and pleural effusion. Seen by pulmonary but as there was no significant hypoxia thoracocentesis was not done. Was treated with IV diuretics. Pacemaker interrogation was done which showed stable thresholds.Her Eliquis restarted January given risk of stroke with atrial fibrillation and amyloidosis and she was discharged on February 01. On February 02 she was admitted for GI bleed, looks like she had history of gastric ulcer requiring Endo Clip in September 2021.She was having hematemesis and also rect al bleed during February 02 admission. Significant hematemesis in the ER. Seems filled whole emesis basin full of bright red blood .Had hypotension and an episode of syncope. Massive transfusion protocol was initiated and she received Kcentra , FFP and as well as TXA. Received 2 units of PRBC . Patient had emergent EGD. EGD revealed large cratered ulcer in the gastric antrum which was significantly increased in size when compared to prior EGD along with stigmata of recent bleeding. Received IV Rocephin for Klebsiella urine culture from January 27. Patient was seen by the critical care. Patient also seen by general surgery and because of her cardiac issues recommended transfer to tertiary care.Patient was transferred to [facility] for large cratered gastric antral ulcer concern for impending perforation. As per patient at [place] she had EGD and ulcer was sprayed and had another EGD. She was monitored in the ICU. As per epic patient had EGD on February 03 which showed nonobstructing gastric ulcer with oozing hemorrhage .Hemostatic spray applied. And returned to ICU for repeat EGD in 1 to 2 days. Patient had repeat EGD on February 06. Nonbleeding gastric ulcer with a clean ulcer base was found. And advised for omeprazole 40 mg p.o. twice daily for 8 weeks and to repeat EGD to check healing seems to be done when EUS with gallbladder drainage and ERCP planned. Patient was discharged last Friday to home. Patient states after going home she was feeling very weak and tired. Mostly bedbound. Having abdominal pain. Poor appetite. Tonight again she had a bloody bowel movement which prompted her to come to the ER. Hemoccult was positive in the ER. Hemoglobin is 9.5. Acute GI bleeding ? Secondary to bleeding peptic ulcers H/O peptic ulcer disease Constipation/? Possible fecal impaction --S/P EGD:Normal upper third of esophagus and middle third of esophagus. Mild Schatzki ring. Large hiatal hernia with multiple Elías ulcers. Non-obstructing non-bleeding gastric ulcer with no stigmata of bleeding. Normal examined duodenum. No specimens collected. --CT ABD: Patient is status post internalized biliary stent with proximal coil at the hepatic hilum and distal coil within the duodenum. Moderate volume mesenteric volume of abdominal and pelvic ascites. Previously noted soft tissue mass within the stomach is not visualized. If there is further concern for ulcer, consider direct inspection or fluoroscopic imaging. Findings suspicious for systemic volume overload with large bilateral pleural effusions, moderate mesenteric ascites, and anasarca. Rectal vault distention measuring 6.4 cm. No evidence of adjacent stranding. Stercoral colitis is less likely. Consider disimpaction. Diffuse gallbladder wall thickening with adjacent stranding. Findings may be due to volume overload or low protein state. If there is further concern for cholecystitis, consider HIDA imaging. No other acute findings. --S/P colonoscopy on 02/14/23:Preparation of the colon was inadequate. Hemorrhoids found on perianal exam. Stool in the rectum and in the sigmoid colon. No specimens collected. -- Monitor H&H and transfuse PRBCs as needed Continue IV Protonix, Carafate Appreciate GI input Empirically on Zosyn Continue enema, MiraLAX daily as recommended by GI Needs repeat colonoscopy in 3 months given suboptimal preparation Hemoglobin 8.8 continue full liquid diet for now Continue tap water enema as recommended by GI Currently no acute bleeding issues Anasarca Acute decompensated diastolic CHF-POA Cardiac amyloidosis --CXR:Increase in size of a large left pleural effusion. Slight increase in a small right pleural effusion. Cardiomegaly with mild interstitial pulmonary edema. -- CT abdomen as above --ECHO: Large left pleural effusion. Trivial loculated right lateral pericardial effusion. No echocardiogenic indications of cardiac tamponade. Dilated inferior vena cava with reduced collapsibility with sniff indicates an elevated right atrial pressure of 15 mmHg. --S/P thoracentesis on 02/13/23 -- Follow-up pleural fluid studies Monitor volume status closely Appreciate Pulmonology, Cardiology help Continue supplemental oxygen Add Aldactone Continue IV Lasix 40 mg twice daily Added albumin Palliative care consulted to address goals of care Saturating well on 1-2 L supplemental oxygen Hemorrhoids Symptomatic management Hypokalemia Replete electrolytes as needed Monitor Heart failure with preserved ejection fraction Cardiac amyloidosis --Recently started on supplemental oxygen--2 L Monitor volume status Appreciate cardiology input Diuresis as above Chronic hypotension Continue midodrine Monitor BP History of A-fib Tachybradycardia syndrome S/p pacemaker Continue Amiodarone Eliquis on hold due to GI bleed H/O choledocholithiasis S/P biliary sphincterotomy and balloon extraction, plastic biliary stent p lacement in the common bile duct on 01/10/2023. Plan for repeat ERCP for stent removal --2 months from stent placement Also plan for endoscopic ultrasound-guided gallbladder drainage using axios fan nt as patient was deemed to be nonsurgical candidate at the time. Normal LFTs History of multiple myeloma s/p chemo Follow-up with heme-onc Hypothyroidism TSH elevated, normal free T4 Continue levothyroxine Will need repeat thyroid function test as outpatient DVT Px: SCDs Re: GI bleed Code Status Full code Admission and Anticipated Discharge Date Admission Date: February 13, 2023 Subjective Patient is seen and examined at bedside Subjectively denies dyspnea, noted accessory muscle use Poor historian Discussed with cardiology today Very poor appetite, currently does not want to be advanced on diet No good BM despite enema per patient Saturating well on 2 L supplemental oxygen Review of Systems Review of Systems: All systems reviewed & are unremarkable except as noted in Subjective Physical Exam Physical Exam: Physical Exam: Vitals signs as noted above General Appearance:Thin, frail, no apparent distress, Ill appearing Head: normocephalic, Atraumatic Eyes: normal inspection, EOMI Neck: supple, Trachea midline Respiratory/Chest: Decreased breath sounds, scattered wheezes, No accessory muscle use Cardiovascular: S1, S2, No murmur Abdomen/GI:Soft, distended, non tender, Bowel sounds present Extremities/Musculoskeletal:normal inspection, no edema Neurologic/Psych:AAOX3, grossly no focal neurological deficits Skin: normal color, warm Results & Data Results & Data Vital Signs (Past 12 Hours) Vital Signs Temp Pulse Pulse Resp BP Pulse Ox O2 Del Method 02/16/23 11:49 36.5 C 60 24 114/66 95 Nasal Cannula 02/16/23 08:30 Nasal Cannula 02/16/23 07:51 36.5 C 60 19 100/63 97 Nasal Cannula 02/16/23 05:59 61 O2 Flow Rate 02/16/23 11:49 2.0 02/16/23 08:30 2 02/16/23 07:51 2.0 02/16/23 05:59 Laboratory Results [facility] 02/16/23 06:22 Sodium 138 Potassium 3.7 Chloride 105 Carbon Dioxide 26 BUN 12 Creatinine 0.71 Glucose 89 Calcium 8.2 L
--- NOTE | 2023-02-16 17:31 | Pulmonology Progress Note ---
Date of Service February 16, 2023 Assessment & Plan (1) Acute GI bleeding: (2) Pleural effusion due to CHF (congestive heart failure): (3) Atrial fibrillation: Atrial fibrillation type: paroxysmal Qualified Code(s): I48.0 - Paroxysmal atrial fibrillation (4) Pleural effusion: (5) Cardiac amyloidosis: (6) Multiple myeloma: Multiple myeloma remission status: unspecified Qualified Code(s): C90.00 - Multiple myeloma not having achieved remission (7) Ascites: Ascites type: other type Qualified Code(s): R18.8 - Other ascites Plan 77 year old female with multiple medical problems including MM, cardiac amyl oidosis, anasarca, recurrent pleural effusions, and UGIB presents with BRBPR. She has a recent complicated hospitalization history most recently discharged from [facility] less than a week ago. 1. GIB - s/p EGD. colonoscopy incomplete due to poor prep. H&H stable. 2. bilateral pleural effusion, L>R - s/p left thoracentesis 02/13. transudative. POCUS 02/15 showed moderate left pleural effusion. agree with diuresis lasix 40 BID and spironolactone per cardiology. 3. anasarca - POCUS 02/15 showed small amount of ascites not amenable to drainage. 4. Hypotension - Recommend titrating up midodrine as needed. Added albumin. 5. afib - amio. AC on hold. 6. cardiac amyloidosis Will sign off. please call if any changes or questions. Admission and Anticipated Discharge Date Admission Date: February 13, 2023 Subjective shortness of breath no change. feels tired. Physical Exam Constitutional: + ill appearing, + thin and + underweigh t Respiratory: Auscultation: + diminished lung sounds and + crackles Cardiovascular: Rate/Rhythm: regular rate and regular rhythm Skin: no rashes, warm and dry Neurologic: PERRL, EOMI, accommodation nl, no face palsy, no dysarthria Results & Data Results & Data Vital Signs (Past 12 Hours) Vital Signs Temp Pulse Pulse Resp BP Pulse Ox O2 Del Method 02/16/23 16:12 36.6 C 61 19 106/65 94 Nasal Cannula 02/16/23 11:49 36.5 C 60 24 114/66 95 Nasal Cannula 02/16/23 08:30 Nasal Cannula 02/16/23 07:51 36.5 C 60 19 100/63 97 Nasal Cannula 02/16/23 05:59 61 O2 Flow Rate 02/16/23 16:12 1.0 02/16/23 11:49 2.0 02/16/23 08:30 2 02/16/23 07:51 2.0 02/16/23 05:59 PG Care Time/CCT Total # of Minutes Spent Total Time Spent with Patient: Total time spent is greater than 50% in coordination of care (as documented) at patient's floor/unit and/or counseling patient: Coding Level of Care Code 29309 SUB INP/OBS CARE 235MIN Diagnoses Acute GI bleeding K92.2 Pleural effusion due to CHF (congestive heart failure) I50.9 Paroxysmal atrial fibrillation I48.0 Atrial fibrillation type: paroxysmal Pleural effusion J90 Cardiac amyloidosis E85.4; I43 Multiple myeloma, remission status unspecified C90.00 Multiple myeloma remission status: unspecified Other ascites R18.8 Ascites type: other type
[2023-02-16] MEDS: ESCITALOPRAM OXALATE 10 MG TAB PO SCH (18:17)
[2023-02-16] MEDS: MoRPHine SULFATE 2 MG/ML CARP IV PRN (18:21)
[2023-02-16] MEDS: POTASSIUM CHLORIDE 20 MEQ/15 ML UDC PO SCH (20:12)
[2023-02-17] MEDS: ALBUMIN 25% 25 GM/100 ML VIAL IV SCH ×2 (03:51→16:22)
[2023-02-17] MEDS: PIPERACILLIN/TAZOBACTAM 4.5 GM in DEXTROSE 5% MINI-B 100 ML IV SCH ×3 (05:29→21:13)
[2023-02-17] MEDS: LEVOTHYROXINE SODIUM 50 MCG TABLET PO SCH (05:29)
[2023-02-17 07:11] LABS: Hematocrit (blood only) 28.3 % (37.0-47.0); Hemoglobin 8.7 g/dl (12.0-16.0)
[2023-02-17] MEDS: MIDODRINE HCL 2.5 MG TAB PO SCH ×3 (09:00→17:47)
[2023-02-17] MEDS: AMIODARONE 200 MG TAB PO SCH ×2 (09:00→21:08)
[2023-02-17] MEDS: SPIRONOLACTONE 25 MG TAB PO SCH (09:01)
[2023-02-17] MEDS: CYANOCOBALAMIN (B-12) 500 MCG TABLET PO SCH (09:02)
[2023-02-17] MEDS: ESCITALOPRAM OXALATE 10 MG TAB PO SCH (09:02)
[2023-02-17] MEDS: PANTOprazole 40 MG in SYRINGE 0 ML IV SCH ×2 (09:03→21:11)
[2023-02-17] MEDS: FUROSEMIDE 40 MG/4 ML VIAL IV SCH ×2 (09:03→21:11)
[2023-02-17] MEDS: POLYETHYLENE (MIRALAX) 17 GM PACK PO SCH (09:04)
[2023-02-17] MEDS: POTASSIUM CHLORIDE 20 MEQ/15 ML UDC PO SCH ×2 (09:04→21:08)
[2023-02-17 09:09] LABS: BUN Creatinine Ratio 17.6 (10-20); Calcium 8.6 mg/dl (8.6-10.3); Creatinine Clr Calc Pharmacy 58.2 ml/min; Est GFR (African American) 98.5 ml/min; Potassium 3.4 mmol/L (3.5-5.1)
--- NOTE | 2023-02-17 09:50 | Palliative Care Consultation ---
Date of Consultation February 17, 2023 Assessment & Plan (1) Dyspnea and respiratory abnormalities: (2) Weakness generalized: (3) Abdominal pain, acute, generalized: (4) Acute GI bleeding: (5) Pleural effusion due to CHF (congestive heart failure): (6) Acute on chronic heart failure with preserved ejection fraction (HFpEF): (7) Cardiac amyloidosis: (8) Advanced care planning/counseling discussion: I met with Mrs Hogue face to face x 40 min for ACP discussion at the bedside. She tells she she was not enthused hearing about hospice and then spent much of her time with me focused on her perception that medical teams "are not following through/delivering on the things they say they are going to do." She did not offer specifics beyond that comment. She did not appear to think her cardiac amyloid is advanced. This may need further elucidation/clarity for her. She remains convinced her issues are because she is not moving her bowels well and needs a suppository "because that is what always works at home." From the hospice perspective, we cannot use failure to thrive and/or frailty, as these are no longer acceptable primary hospice diagnoses. We spoke about her uncontrolled symptoms and agreed I would write some orders for pain and dyspnea mgt, then follow up in next 1-2 days. (9) Encounter for hospice care discussion: We discussed the goals of hospice as a patient service and the goals of care; we discussed EOL trajectories and transitions viviane the emotional impact of realizing mortality as a concrete reality from prior abstract considerations. Pt was reassured that no matter where they are along this trajectory, they are not alone - their medical team will remain by their side through their journey. Discussed the pros/cons of accepting help when especially weakened and distressed by pain-which would also help provide relief/decrease caregiver burden/strain. I provided education about the hospice benefit: an interdisciplinary program offered by nurses, nurses aides, social workers, chaplains and a chief medical director for patients with a terminal condition and a life expectancy of less than 6 months. This is covered by Medicare at 100%/no out of pocket expense to patient and all meds/supplies needed by patient for the reason they are on hospice are paid for/covered by hospice. The goal is assure quality of life of the patient in their home setting (home, chcf, inpatient hospice setting) by providing symptoms management, psychosocial and spiritual support. However, they cannot offer 24 hours care and if the family is unable to provide that care, they will have to consider personal care with out of pocket cost vs. chcf placement. We discussed the goals of hospice as a patient service and the goals of care; we discussed EOL trajectories and transitions viviane the emotional impact of realizing mortality as a concrete reality from prior abstract considerations. Pt was reassured that no matter where they are along this trajectory, they are not alone - their medical team will remain by their side through their journey. Discussed the pros/cons of accepting help when especially weakened and distressed by pain-which would also help provide relief/decrease caregiver burden/strain. (10) Palliative care by specialist: Met with pt at bedside, there was no family present. Provided overview of Palliative Medicine, a subspecialty that provides specialized medical care for people living with a serious illness by offering a focus on quality of life. Palliative Medicine is often conflated with hospice: I advised patient/family that Palliative and hospice can be partners but we are not the same. It is important to understand the difference so that we may be informed, and not afraid. Palliative Medicine works to improve QOL through reduction of symptom burden/more control over their illness, for both the patient and family. Palliative medicine clinicians are board certified, specially-trained and another member of the patient's medical care team. We often provide an extra layer of support because our care is based on the needs of the patient, not the prognosis; as such, it's appropriate at any age/advancing stage of a serious illness and can be provided along with curative treatment. Palliative Medicine clinicians are also trained in advanced communication methodologies, to facilitate complex discussions about advanced illness planning, which are needed to help assure that the treatment choices match the patient's goals, aka delivering Goal Concordant care. Finally, we discussed that hospice is a visiting nurse service that focuses on care delivered at the very end of life for patients with terminal illness, with life expectancy less than 6 month. Plan * Anel was not very interested in hospice at this time, hyperfocused on bowel regimen and attributes bulk of symptoms to bowel dysfunction * I have added Roxanol 5mg PO q3h prn for pain/dyspnea/RR>24 with hold parameters of hold for somnolence or RR<14/min. Modified IV MS to 2mg IV q4h prn very severe pain/air hunger unrelieved by oral meds + added same hold parameters. * She did not admit to a clear understanding of her symptom burden/declining PS as attributable to her cardiac amyloid. Will need ongoing discussions about this, perhaps better with her family present. * She feels hospice is to "go home, give up and , they take away your med icines and make you give up." * I have updated primary team. Thank you for allowing us to participate in the ongoing care of this patient. Please don't hesitate to call or page with any additional concerns. Dr. Divya Morrison DNP Director, Palliative Care History of Present Illness Reason for Consultation: Please address goals of care Attending Physician: Ward Cortes MD History of Present Illness Per admitting note, Anel Hogue is a "77-year-old female with past med significant for chronic diastolic CHF, idiopathic cardiomyopathy, cardiac amyloidosis, tachybradycardia syndrome s/p pacemaker, left ventricle hypertrophy, chronic atrial fibrillation, acute gastric ulcer with hemorrhage, multiple myeloma s/p chemo, hemorrhagic shock presents with GI bleed. Patient was admitted on January 07, 2023 with A-fib and biliary colic. She also found to have tachybradycardia syndrome and s/p pacemaker on January 13. Postprocedure had small pneumothorax. She also s/p ERCP for choledocholithiasis s/p 1 plastic biliary stent was placed in the common bile duct and plan was to repeat ERCP in 2 months to remove the stent and possible axios stent placement. EGD done showed nonbleeding gastric ulcers. Patient was again admitted on January 27, 2023 for acute on chronic heart failure with preserved ejection fraction and pleural effusion. Seen by pulmonary but as there was no significant hypoxia thoracocentesis was not done. Was treated with IV diuretics. Pacemaker interrogation was done which showed stable thresholds.Her Eliquis restarted January given risk of stroke with atrial fibrillation and amyloidosis and she was discharged on February 01. On February 02 she was admitted for GI bleed, looks like she had history of gastric ulcer requiring Endo Clip in September 2021.She was having hematemesis and also rectal bleed during February 02 admission. Significant hematemesis in the ER. Seems filled whole emesis basin full of bright red blood .Had hypotension and an episode of sy ncope. Massive transfusion protocol was initiated and she received Kcentra , FFP and as well as TXA. Received 2 units of PRBC . Patient had emergent EGD. EGD revealed large cratered ulcer in the gastric antrum which was significantly increased in size when compared to prior EGD along with stigmata of recent bleeding. Received IV Rocephin for Klebsiella urine culture from January 27. Patient was seen by the critical care. Patient also seen by general surgery and because of her cardiac issues recommended transfer to tertiary care.Patient was transferred to [facility] for large cratered gastric antral ulcer concern for impending perforation. As per patient at [facility] she had EGD and ulcer was sprayed and had another EGD. She was monitored in the ICU. As per [facility] patient had EGD on February 03 which showed nonobstructing gastric ulcer with oozing hemorrhage .Hemostatic spray applied. And returned to ICU for repeat EGD in 1 to 2 days. Patient had repeat EGD on February 06. Nonbleeding gastric ulcer with a clean ulcer base was found. And advised for omeprazole 40 mg p.o. twice daily for 8 weeks and to repeat EGD to check healing seems to be done when EUS with gallbladder drainage and ERCP planned. Patient was discharged last Friday to home. Patient states after going home she was feeling very weak and tired. Mostly bedbound. Having abdominal pain. Poor appetite. Tonight again she had a bloody bowel movement which prompted her to come to the ER. Hemoccult was positive in the ER. Hemoglobin is 9.5. Denies any headache. No cough. No fevers. Currently seems no chest pain or shortness of breath. No nausea. Blood pressures somewhat soft. CT abdomen pelvis showing lateral pleural effusions and anasarca ascites. Blood consent obtained." Anel's cardiac amyloid is advanced. Per cardiology note 02/16/23, "recommend additional discussions for hospice. I discussed this with her and she seems amenable to pursue this option." Allergies Allergy/AdvReac Type Severity Reaction Status Date / Time iron Allergy Rash Verified 01/27/23 15:23 Home Medications Medication Instructions Recorded Confirmed Type cyanocobalamin (vitamin B-12) 1,000 mcg PO QAM 05/14/21 02/13/23 History 1,000 mcg tablet (Vitamin B-12) sucralfate 100 mg/mL oral 10 ml PO QID PRN Gi Upset 11/22/22 02/13/23 History suspension amiodarone 200 mg tablet 200 mg PO BID #60 tabs 01/15/23 02/13/23 Rx pantoprazole 40 mg tablet,delayed 40 mg PO BID #60 tabs 01/15/23 02/13/23 Rx release levothyroxine 50 mcg tablet 50 mcg PO QAM 01/27/23 02/13/23 History midodrine 2.5 mg tablet 2.5 mg PO TIDM 01/27/23 02/13/23 History amoxicillin 875 mg-potassium 1 tab PO BIDM #10 tabs 02/01/23 02/13/23 Rx clavulanate 125 mg tablet furosemide 40 mg tablet 80 mg (2 x 40 mg) PO BID #60 tabs 02/01/23 02/13/23 Rx potassium chloride 20 mEq 20 meq PO BID #60 tabs 02/01/23 02/13/23 Rx tablet,extended release(part/cryst) escitalopram oxalate 10 mg tablet 10 mg PO DAILY 02/16/23 02/16/23 History Patient History Medical History (Updated 02/17/23 @ 10:06 by Divya Morrison DNP) Chronic peptic ulcer with bleeding Tachy-walker syndrome Atrial fibrillation Hx of cardiac pacemaker GI bleed Dyspnea on exertion Pleural effusion due to CHF (congestive heart failure) Acute on chronic heart failure with preserved ejection fraction (HFpEF) Acute combined systolic and diastolic CHF, NYHA class 3 Acute on chronic diastolic (congestive) heart failure Nausea & vomiting Elevated troponin Chronic diastolic heart failure Cardiac amyloidosis Multiple myeloma Surgical History (Updated 02/15/23 @ 00:10 by Sapphire Pelaez) History of permanent cardiac pacemaker placement History of colonoscopy History of tubal ligation Family History Father , 50s Stroke Mother , 90 Coronary heart disease Social History Smoking Status: Never smoker Second Hand Exposure: No; Do You Dip or Chew Tobacco: No; Hx Alcohol Use: No Hx Substance Use: No Preferred Language: Croatian 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: Effective [place] Required: No Beliefs That Will Affect Care: None marital status: Current Living Situation: Spouse Current Living Situation Comment: with Other Information That Helps Us Care for You: No Feels Safe at Home: Yes Safety Concerns: Feels Safe At This Time Assistive Devices: Bedside Commode, Walker and Other Review of Systems Review of Systems: All systems reviewed & are unremarkable except as noted in Subjective Physical Exam Constitutional: + in distress (TIRED APPEARING) Eyes: PERRL, conjunctivae normal, anicteric sclerae ENMT: MMM SL DRY DENTITION FAIR NECK SUPPLE AND WITHOUT STRIDOR Neck: trachea midline, no thyromegaly Respiratory: INCREASED EFFORT WITH SEMI RECLINED OR EFFORTS TO REPOSITION HERSELF. MILD DYSPNEA WITH PROLONGED CONVERSATION. BREATH SOUNDS DIMINISHED BUT NO WHEEZING OR RALES NOTED Cardiovascular: IRREG IRREG Gastrointestinal (Abdomen): TTP THROUGHOUT, MILD DISTENSION, MILD GUARDING +EPIGASTRIC TENDERNESS Musculoskeletal: GENERALIZED WEAKNESS Skin: PALE, DRY, COOL TO TOUCH Neurologic: AAOX3, TIRED Psychiatric: SUBDUED MOOD, TIRED EASILY AND CUT INTERVIEW SHORT Results & Data Vital Signs (Past 12 Hours) Vital Signs Temp Pulse Pulse Resp BP BP Pulse Ox 02/17/23 09:30 60 02/17/23 08:01 36.5 C 61 22 102/62 94 02/17/23 03:46 36.4 C L 63 17 101/62 95 02/16/23 23:27 60 02/16/23 23:01 36.4 C L 64 19 133/69 93 O2 Del Method O2 Flow Rate 02/17/23 09:30 02/17/23 08:01 Nasal Cannula 1.0 02/17/23 03:46 Nasal Cannula 1.5 02/16/23 23:27 02/16/23 23:01 Nasal Cannula 2 Laboratory Results DATA REVIEWED Diagnostic Findings DATA REVIEWED PG Care Time/CCT Total # of Minutes Spent Total Time Spent: 115 Total Time Spent with Patient: Total time spent is greater than 50% in coordination of care (as documented) at patient's floor/unit and/or counseling patient: I spent 115 minutes overall addressing this very complex case: 25 min in medical data review/discussion with referring provider(s) and/or preparation for the visit incl extensive OSH data review 25 min in direct interaction with the patient/exam 40 min in detailed Advance Care Planning/Goals of Care discussions as detailed above in note (must be >16min) 10 min in subsequent review and synthesis of assessment and plan 15 min communicating with other providers regarding the p atient's case: Advanced Care Planning 25718 Advanced Care Planning 30 Min 43207 Advanced Care Planning Additional 30 [place] [address] IN/OBS CONSULT LVL 5,80M Patient Type New History Comprehensive Exam Comprehensive Medical Decision Making High Complexity Diagnoses Dyspnea and respiratory abnormalities R06.00; R06.89 Weakness generalized R53.1 Abdominal pain, acute, generalized R10.84 Acute GI bleeding K92.2 Pleural effusion due to CHF (congestive heart failure) I50.9 Acute on chronic heart failure with preserved ejection fraction (HFpEF) I50.33 Cardiac amyloidosis E85.4; I43 Advanced care planning/counseling discussion Z71.89 Encounter for hospice care discussion Z71.89 Palliative care by specialist Z51.5 Additional Codes Advanced Care Planning - 81978 Advanced Care Planning 30 Min: 24369 Advanced Care Planning 30 Min ([id number]) Advanced Care Planning - 13716 Advanced Care Planning Additional 30 Min: 94337 A dvanced Care Planning Additional 30 Min ([id number])
--- NOTE | 2023-02-17 12:04 | XRay Report ---
KUB HISTORY: constipation COMPARISON: KUB 02/15/2023. FINDINGS: The bowel gas pattern is unremarkable. There are no dilated loops of small bowel to suggest an obstruction. No renal calculi. No ureteral calculi. Calcifications in the deep pelvis likely rep resent phleboliths. These remain unchanged. The common bile duct stent remains in place. Small amount of ascites is suggested. No pneumoperitoneum or pneumatosis. Bilateral pleural effusions are partial ly visualized. IMPRESSION: 1. Nonobstructive bowel gas pattern. 2. The common bile duct stent is unchanged in position. 3. Bilateral pleural effusions and a small amount of ascites is again noted. ACT 112: Negative or not required by law. Electronically signed by: Markie Silva M.D. 02/17/2023 12:03 PM
--- NOTE | 2023-02-17 14:22 | Ultrasound Report ---
US abdomen ltd ascites CLINICAL HISTORY: Ascites TECHNIQUE: Real-time grayscale sonographic images of the abdomen were obtained. Comparison: Comparison is made to CT abdomen pelvis 02/13/2023 FINDINGS/IMPRESSION: Small ascites is seen most prominent in the left abdomen. A right pleural effusi on is noted. ACT 112: Negative or not required by law. Electronically signed by: Jose Ramon Murcia M.D. 02/17/2023 2:20 PM
[2023-02-17] MEDS: MoRPHine SULFATE 10 MG/0.5 ML UDP PO PRN (14:30)
--- NOTE | 2023-02-17 14:44 | Cardiology Progress Note ---
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 Patient has had a rapid decline in her clinical status over the last 6 weeks. -She was admitted with gastrointestinal bleeding having recently been placed on anticoagulation due to concerns of atrial arrhythmias. Other than on her previous hospital stay, some of the rhythm strips were suggestive atrial fibrillation, the predominant atrial arrhythmia has been felt to be atrial tachycardia per my last encounter with her. Patient undergone repeat left thoracentesis on 02/13/2023. She remains on Zosyn for possible superimposed infection. Continue amiodarone for rhythm control, midodrine for blood pressure support, spironolactone, furosemide 40 mg IV twice daily, potassium chloride. Prognosis poor. Admission and Anticipated Discharge Date Admission Date: February 13, 2023 Subjective Patient seen in cardiology follow-up. Notes fatigue, abdominal bloating and difficulty having a bowel movement. Ill in appearance without acute distress. Physical Exam Constitutional: + ill appearing Respiratory: Auscultation: + diminished lung sounds (Decreased breath sounds at the bases bilaterally) Cardiovascular: RRR, no murmur, no edema Gastrointestinal (Abdomen): Inspection/Auscultation: + abdomen distended Percussion/Palpation: + abdomen tender Neurologic: PERRL, EOMI, accommodation nl, no face palsy, no dysarthria Results & Data Vital Signs (Past 12 Hours) Vital Signs Temp Pulse Pulse Resp BP BP Pulse Ox 02/17/23 13:37 02/17/23 11:30 36.3 C L 67 20 112/63 93 02/17/23 09:30 60 02/17/23 08:01 36.5 C 61 22 102/62 94 02/17/23 03:46 36.4 C L 63 17 101/62 95 O2 Del Method O2 Flow Rate 02/17/23 13:37 Nasal Cannula 1 02/17/23 11:30 Nasal Cannula 1.0 02/17/23 09:30 02/17/23 08:01 Nasal Cannula 1.0 02/17/23 03:46 Nasal Cannula 1.5 Diagnostic Findings Chest x-ray 02/13/2023: Decrease in the size of the left pleural effusion, left perihilar airspace opacities noted.
--- NOTE | 2023-02-17 15:32 | XRay Report ---
XR chest 1V portable CLINICAL HISTORY: Dyspnea TECHNIQUE: Single frontal radiograph of the chest was obtained. Comparison: Comparison is made to chest radiograph 02/13/2023 FINDINGS: An implanted pacemaker is seen. The cardiomediastinal silhouette is obscured. Left lung airspace opac ity is somewhat decreased from prior exam. There is faint airspace opacity in the right lower lung. M oderate left pleural effusion is seen. This appears to be increased from prior exam. Small right pleu ral effusion is seen. IMPRESSION: 1. Moderate left and small right pleural effusions, increased from prior exam. 2. Interval improvement in left airspace opacities with faint right lower lung airspace opacities. F indings may represent atelectasis, pneumonia, and/or aspiration. ACT 112: Negative or not required by law. Electronically signed by: Jose Ramon Murcia M.D. 02/17/2023 3:30 PM
--- NOTE | 2023-02-17 15:53 | Hospitalist Progress Note ---
Date of Service February 17, 2023 Assessment & Plan (1) Acute GI bleeding: Plan: Patient is a 77 yr female with H/O chronic diastolic CHF, idiopathic cardiomyopathy, cardiac amyloidosis, tachybradycardia syndrome s/p pacemaker, left ventricle hypertrophy, chronic atrial fibrillation, acute gastric ulcer with hemorrhage, multiple myeloma s/p chemo, hemorrhagic shock presents with GI bleed. Patient was admitted on January 07, 2023 with A-fib and biliary colic. She also found to have tachybradycardia syndrome and s/p pacemaker on January 13. Postprocedure had small pneumothorax. She also s/p ERCP for choledocholithiasis s/p 1 plastic biliary stent was placed in the common bile duct and plan was to repeat ERCP in 2 months to remove the stent and possible axios stent placement. EGD done showed nonbleeding gastric ulcers. Patient was again admitted on January 27, 2023 for acute on chronic heart failure with preserved ejection fraction and pleural effusion. Seen by pulmonary but as there was no significant hypoxia thoracocentesis was not done. Was treated with IV diuretics. Pacemaker interrogation was done which showed stable thresholds.Her Eliquis restarted January given risk of stroke with atrial fibrillation and amyloidosis and she was discharged on February 01. On February 02 she was admitted for GI bleed, looks like she had history of gastric ulcer requiring Endo Clip in September 2021.She was having hematemesis and also rect al bleed during February 02 admission. Significant hematemesis in the ER. Seems filled whole emesis basin full of bright red blood .Had hypotension and an episode of syncope. Massive transfusion protocol was initiated and she received Kcentra , FFP and as well as TXA. Received 2 units of PRBC . Patient had emergent EGD. EGD revealed large cratered ulcer in the gastric antrum which was significantly increased in size when compared to prior EGD along with stigmata of recent bleeding. Received IV Rocephin for Klebsiella urine culture from January 27. Patient was seen by the critical care. Patient also seen by general surgery and because of her cardiac issues recommended transfer to tertiary care.Patient was transferred to [facility] for large cratered gastric antral ulcer concern for impending perforation. As per patient at [facility] she had EGD and ulcer was sprayed and had another EGD. She was monitored in the ICU. As per epic patient had EGD on February 03 which showed nonobstructing gastric ulcer with oozing hemorrhage .Hemostatic spray applied. And returned to ICU for repeat EGD in 1 to 2 days. Patient had repeat EGD on February 06. Nonbleeding gastric ulcer with a clean ulcer base was found. And advised for omeprazole 40 mg p.o. twice daily for 8 weeks and to repeat EGD to check healing seems to be done when EUS with gallbladder drainage and ERCP planned. Patient was discharged last Friday to home. Patient states after going home she was feeling very weak and tired. Mostly bedbound. Having abdominal pain. Poor appetite. Tonight again she had a bloody bowel movement which prompted her to come to the ER. Hemoccult was positive in the ER. Hemoglobin is 9.5. Acute GI bleeding ? Secondary to bleeding peptic ulcers H/O peptic ulcer disease Constipation/? Possible fecal impaction --S/P EGD:Normal upper third of esophagus and middle third of esophagus. Mild Schatzki ring. Large hiatal hernia with multiple Elías ulcers. Non-obstructing non-bleeding gastric ulcer with no stigmata of bleeding. Normal examined duodenum. No specimens collected. --CT ABD: Patient is status post internalized biliary stent with proximal coil at the hepatic hilum and distal coil within the duodenum. Moderate volume mesenteric volume of abdominal and pelvic ascites. Previously noted soft tissue mass within the stomach is not visualized. If there is further concern for ulcer, consider direct inspection or fluoroscopic imaging. Findings suspicious for systemic volume overload with large bilateral pleural effusions, moderate mesenteric ascites, and anasarca. Rectal vault distention measuring 6.4 cm. No evidence of adjacent stranding. Stercoral colitis is less likely. Consider disimpaction. Diffuse gallbladder wall thickening with adjacent stranding. Findings may be due to volume overload or low protein state. If there is further concern for cholecystitis, consider HIDA imaging. No other acute findings. --S/P colonoscopy on 02/14/23:Preparation of the colon was inadequate. Hemorrhoids found on perianal exam. Stool in the rectum and in the sigmoid colon. No specimens collected. -- Monitor H&H and transfuse PRBCs as needed Continue IV Protonix, Carafate Appreciate GI input Empirically on Zosyn Continue enema, MiraLAX daily as recommended by GI Needs repeat colonoscopy in 3 months given suboptimal preparation continue full liquid diet for now (patient prefers not to advance for now) Received tap water enema--patient refuses Currently no acute bleeding issues Hb 8.7 today Anasarca Acute decompensated diastolic CHF-POA Cardiac amyloidosis --CXR:Increase in size of a large left pleural effusion. Slight increase in a small right pleural effusion. Cardiomegaly with mild interstitial pulmonary edema. -- CT abdomen as above --ECHO: Large left pleural effusion. Trivial loculated right lateral pericardial effusion. No echocardiogenic indications of cardiac tamponade. Dilated inferior vena cava with reduced collapsibility with sniff indicates an elevated right atrial pressure of 15 mmHg. --S/P thoracentesis on 02/13/23 -- Follow-up pleural fluid studies Monitor volume status closely Appreciate Pulmonology, Cardiology help Continue supplemental oxygen Add Aldactone Continue IV Lasix 40 mg twice daily Added albumin Palliative care consulted to address goals of care Saturating well on 1-2 L supplemental oxygen CXR today consistent with moderate left and small right pleural effusion, airspace opacities in the right lower lung Patient developing recurrent pleural effusion despite thoracentesis, IV diuretics Given advanced disease, cardiology recommends Palliative care/Hospice eval Case management to help with discharge planning Hemorrhoids Symptomatic management Hypokalemia Replete electrolytes as needed Monitor Heart failure with preserved ejection fraction Cardiac amyloidosis --Recently started on supplemental oxygen--2 L Monitor volume status Appreciate cardiology input Diuresis as above Chronic hypotension Continue midodrine Monitor BP History of A-fib Tachybradycardia syndrome S/p pacemaker Continue Amiodarone Eliquis on hold due to GI bleed H/O choledocholithiasis S/P biliary sphincterotomy and balloon extraction, plastic biliary stent placement in the common bile duct on 01/10/2023. Plan for repeat ERCP for stent removal --2 months from stent placement Also plan for endoscopic ultrasound-guided gallbladder drainage using axios stent as patient was deemed to be nonsurgical candidate at the time. Normal LFTs History of multiple myeloma s/p chemo Follow-up with heme-onc Hypothyroidism TSH elevated, normal free T4 Continue levothyroxine Will need repeat thyroid function test as outpatient DVT Px: SCDs Re: GI bleed Code Status Full code Admission and Anticipated Discharge Date Admission Date: February 13, 2023 Subjective Patient is seen and examined at bedside States having dyspnea with minimal exertion as well as intermittent generalized pain Discussed with gastroenterology and cardiology today Also updated patient's family at bedside Poor prognosis Saturating well on 1 L supplemental oxygen Review of Systems Review of Systems: All systems reviewed & are unremarkable except as noted in Subjective Physical Exam Physical Exam: Physical Exam: Vitals signs as noted above General Appearance:Thin, frail, no apparent distress, Ill appearing Head: normocephalic, Atraumatic Eyes: normal inspection, EOMI Neck: supple, Trachea midline Respiratory/Chest: Decreased breath sounds, scattered wheezes, +accessory muscle use Cardiovascular: S1, S2, No murmur Abdomen/GI:Soft, distended, non tender, Bowel sounds present Extremities/Musculoskeletal:normal inspection, no edema Neurologic/Psych:AAOX3, grossly no focal neurological deficits Skin: normal color, warm Results & Data Results & Data Vital Signs (Past 12 Hours) Vital Signs Temp Pulse Pulse Resp BP Pulse Ox O2 Del Method 02/17/23 13:37 Nasal Cannula 02/17/23 11:30 36.3 C L 67 20 112/63 93 Nasal Cannula 02/17/23 09:30 60 02/17/23 08:01 36.5 C 61 22 102/62 94 Nasal Cannula O2 Flow Rate 02/17/23 13:37 1 02/17/23 11:30 1.0 02/17/23 09:30 02/17/23 08:01 1.0 Laboratory Results Short CBC 02/17/23 Range/Units 06:15 Hgb 8.7 L (12.0-16.0) g/dl Hct 28.3 L (37.0-47.0) % BMP 02/17/23 06:15 Sodium 139 Potassium 3.4 L Chloride 104 Carbon Dioxide 27 BUN 12 Creatinine 0.68 Glucose 83 Calcium 8.6
--- NOTE | 2023-02-17 16:14 | Communication Note ---
Date of Service: February 17, 2023 I met with patient's family including her spouse, daughter, son, and grandson. I discussed my opinion that patient has reached end stage level of disease. Recommend hospital, pt has used [facility] care in past. Update Dr Cortes.
[2023-02-18] MEDS: LEVOTHYROXINE SODIUM 50 MCG TABLET PO SCH (05:23)
[2023-02-18] MEDS: PIPERACILLIN/TAZOBACTAM 4.5 GM in DEXTROSE 5% MINI-B 100 ML IV SCH (05:23)
[2023-02-18 07:01] LABS: Hematocrit (blood only) 30.3 % (37.0-47.0); Mean Corpuscular Hemoglobin 26.7 pg (25.0-34.0); Mean Corpuscular Hgb Conc 29.7 g/dL (32.0-36.0); Mean Corpuscular Volume 89.9 fL (80.0-100.0); Mean Platelet Volume 10.7 fL (9.4-12.4); Platelet Count 244 K/uL (130-400); RDW Coefficient of Variation 17.6 % (11.5-14.5); RDW Standard Deviation 54.5 fL (36.4-46.3); Red Blood Count 3.37 M/uL (4.20-5.40); White Blood Count 7.49 K/ul (4.8-10.8)
[2023-02-18] MEDS ORDERED: MAGNESIUM HYDROXIDE SUSP 30 ML UDC PO ONE (08:10)
[2023-02-18 08:13] LABS: Calcium 8.5 mg/dl (8.6-10.3); Potassium 3.3 mmol/L (3.5-5.1)
[2023-02-18 08:18] LABS: BUN Creatinine Ratio 15.9 (10-20); Creatinine Clr Calc Pharmacy 62.8 ml/min; Est GFR (Non-African American) 87.1 ml/min
[2023-02-18] MEDS: ESCITALOPRAM OXALATE 10 MG TAB PO SCH (08:37)
[2023-02-18] MEDS: CYANOCOBALAMIN (B-12) 500 MCG TABLET PO SCH (08:37)
[2023-02-18] MEDS: SPIRONOLACTONE 25 MG TAB PO SCH (08:37)
[2023-02-18] MEDS: POTASSIUM CHLORIDE 20 MEQ/15 ML UDC PO SCH ×2 (08:37→21:04)
[2023-02-18] MEDS: MIDODRINE HCL 2.5 MG TAB PO SCH ×3 (08:37→18:07)
[2023-02-18] MEDS: FUROSEMIDE 40 MG/4 ML VIAL IV SCH ×2 (08:37→21:04)
[2023-02-18] MEDS: DOCUSATE SODIUM/SENNA 50/8.6MG TAB PO SCH (08:38)
[2023-02-18] MEDS: AMIODARONE 200 MG TAB PO SCH ×2 (08:38→21:04)
[2023-02-18] MEDS: PANTOprazole 40 MG in SYRINGE 0 ML IV SCH ×2 (08:38→21:04)
[2023-02-18] MEDS: POLYETHYLENE (MIRALAX) 17 GM PACK PO SCH (08:38)
--- NOTE | 2023-02-18 09:43 | Cardiology Progress Note ---
Date of Service February 18, 2023 Assessment & Plan (1) Acute on chronic heart failure with preserved ejection fraction (HFpEF): (2) Cardiac amyloidosis: (3) Tachy-walker syndrome: (4) History of permanent cardiac pacemaker placement: Plan -Patient with acute on chronic heart failure with preserved ejection fraction, amyloid cardiomyopathy with what is felt to be end-stage disease. Patient has had a rapid decline in her clinical status over the last 6 weeks. -She was admitted with gastrointestinal bleeding having recently been placed on anticoagulation due to concerns of atrial arrhythmias. Other than on her previous hospital stay, some of the rhythm strips were suggestive atrial fibrillation, the predominant atrial arrhythmia has been felt to be atrial tachycardia per my last encounter with her. Patient undergone repeat left thoracentesis on 02/13/2023 and has reaccumulated as per repeat CXR on 02/17/23 per my review of the images. She remains on Zosyn for possible superimposed infection which at this point I think we can discontinue as her CXR is more consistent with CHF. Continue amiodarone for rhythm control, midodrine for blood pressure support, spironolactone, furosemide 40 mg IV twice daily, potassium chloride. Prognosis poor. Had family meeting on 02/17/23, family / patient favoring home hospice. Will discuss palliative placing palliative indwelling pleural catheter with pulmonary. Admission and Anticipated Discharge Date Admission Date: February 13, 2023 Subjective Patient seen in cardiology follow up. Notes difficulty breathing with minimal movement in bed. Pulse oximetry =93% on 1 L /m NC. Oxygen. Review of Systems Constitutional: + fatigue and + weakness Respiratory: + dyspnea Physical Exam Constitutional: + ill appearing Respiratory: Auscultation: + diminished lung sounds (decreased BS at the left base ) Cardiovascular: RRR, no murmur, no edema Gastrointestinal (Abdomen): Percussion/Palpation: + ascites Neurologic: PERRL, EOMI, accommodation nl, no face palsy, no dysarthria Results & Data Vital Signs (Past 12 Hours) Vital Signs Temp Pulse Pulse Resp BP Pulse Ox O2 Del Method 02/18/23 07:49 36.5 C 61 17 95/52 L 93 Nasal Cannula 02/18/23 05:58 60 02/18/23 02:16 36.7 C 64 16 108/67 97 Nasal Cannula 02/17/23 23:02 36.7 C 67 18 103/54 L 95 Nasal Cannula 02/17/23 22:55 60 02/17/23 21:56 Nasal Cannula O2 Flow Rate 02/18/23 07:49 1 02/18/23 05:58 02/18/23 02:16 1 02/17/23 23:02 02/17/23 22:55 02/17/23 21:56 1 Laboratory Results CBC 02/18/23 Range/Units 06:25 WBC 7.49 (4.8-10.8) K/ul RBC 3.37 L (4.20-5.40) M/uL Hgb 9.0 L (12.0-16.0) g/dl Hct 30.3 L (37.0-47.0) % Plt Count 244 (130-400) K/uL Comprehensive Metabolic Panel 02/18/23 Range/Units 06:25 Sodium 140 (136-145) mmol/L Potassium 3.3 L (3.5-5.1) mmol/L Chloride 105 (98-107) mmol/L Carbon Dioxide 28 (21-32) mmol/L BUN 10 (6-23) mg/dl Creatinine 0.63 (0.6-1.2) mg/dl Glucose 77 (70-99(Fasting)) mg/dl Calcium 8.5 L (8.6-10.3) mg/dl Intake and Output 02/17/23 02/18/23 02/18/23 22:59 06:59 14:59 Intake Total 100 / 300 100 / 300 100 / 100 Output Total 900 / 1401 Balance 100 / -1101 -800 / -1101 100 / 100 Intake: IV 100 / 300 100 / 300 100 / 100 Piperacillin/Tazobactam 4.5 gm 100 / 300 100 / 300 100 / 100 In Dextrose 5% Mini-B 100 ml @ 25 mls/hr IV Q8H [facility] Rx#: [id number] Output: Urine Amount (Catheter) 900 / 900 External 900 / 900 Other: Other Intake Source sips Weight 61 kg
[2023-02-18] MEDS: MoRPHine SULFATE 10 MG/0.5 ML UDP PO PRN (11:20)
--- NOTE | 2023-02-18 14:29 | Hospitalist Progress Note ---
Date of Service February 18, 2023 Assessment & Plan (1) Acute GI bleeding: Plan: Patient is a 77 yr female with H/O chronic diastolic CHF, idiopathic cardiomyopathy, cardiac amyloidosis, tachybradycardia syndrome s/p pacemaker, left ventricle hypertrophy, chronic atrial fibrillation, acute gastric ulcer with hemorrhage, multiple myeloma s/p chemo, hemorrhagic shock presents with GI bleed Acute GI bleeding ? Secondary to bleeding peptic ulcers H/O peptic ulcer disease --S/P EGD:Normal upper third of esophagus and middle third of esophagus. Mild Schatzki ring. Large hiatal hernia with multiple Elías ulcers. Non-obstructing non-bleeding gastric ulcer with no stigmata of bleeding. Normal examined duodenum. No specimens collected. --CT ABD: Patient is status post internalized biliary stent with proximal coil at the hepatic hilum and distal coil within the duodenum. Moderate volume mesenteric volume of abdominal and pelvic ascites. Previously noted soft tissue mass within the stomach is not visualized. If there is further concern for ulcer, consider direct inspection or fluoroscopic imaging. Findings suspicious for systemic volume overload with large bilateral pleural effusions, moderate mesenteric ascites, and anasarca. Rectal vault distention measuring 6.4 cm. No evidence of adjacent stranding. Stercoral colitis is less likely. Consider disimpaction. Diffuse gallbladder wall thickening with adjacent stranding. Findings may be due to volume overload or low protein state. If there is further concern for cholecystitis, consider HIDA imaging. No other acute findings. --S/P colonoscopy on 02/14/23:Preparation of the colon was inadequate. Hemorrhoids found on perianal exam. Stool in the rectum and in the sigmoid colon. No specimens collected. -- Monitor H&H and transfuse PRBCs as needed Continue IV Protonix, Carafate Continue enema, MiraLAX daily as recommended by GI Needs repeat colonoscopy in 3 months given suboptimal preparation continue full liquid diet for now (patient prefers not to advance for now) Received tap water enema--patient refuses Currently no acute bleeding issues Anasarca Acute decompensated diastolic CHF-POA Cardiac amyloidosis --CXR personally reviewed:Increase in size of a large left pleural effusion. Slight increase in a small right pleural effusion. Cardiomegaly with mild interstitial pulmonary edema. -- CT abdomen as above --ECHO: Large left pleural effusion. Trivial loculated right lateral pericardial effusion. No echocardiogenic indications of cardiac tamponade. Dilated inferior vena cava with reduced collapsibility with sniff indicates an elevated right atrial pressure of 15 mmHg. --S/P thoracentesis on 02/13/23; pleural fluid suggestive transudative. Continue IV Lasix 40 mg twice daily Cardiology discussed with family; patient has reached end stage level of CHF Recommend hospice care. Hemorrhoids Symptomatic management Hypokalemia Replete electrolytes as needed Monitor Chronic hypotension Continue midodrine Monitor BP History of A-fib Tachybradycardia syndrome S/p pacemaker Continue Amiodarone Eliquis on hold due to GI bleed H/O choledocholithiasis S/P biliary sphincterotomy and balloon extraction, plastic biliary stent placement in the common bile duct on 01/10/2023. Plan for repeat ERCP for stent removal --2 months from stent placement Also plan for endoscopic ultrasound-guided gallbladder drainage using axios stent as patient was deemed to be nonsurgical candidate at the time. Normal LFTs History of multiple myeloma s/p chemo Follow-up with heme-onc Hypothyroidism TSH elevated, normal free T4 Continue levothyroxine Will need repeat thyroid function test as outpatient DVT Px: SCDs Re: GI bleed Goals of care discussion; discussed with patient and patient's at bedside. Patient is aware that she she has progressed worse end stage heart failure. Her pleural effusion has progressed despite IV diuretics. Her respira tory symptoms has increased as well; she is short of breath at rest. She agrees that ventilatory support will not be beneficial at this point. CODE STATUS is changed to DNR/DNI. Patient is already on morphine as needed for dyspnea/pain. Plan is to continue current management. If the patient decompensates further; plan is to transition to comfort care measures. Time spent evaluating patient, direct bedside care, chart review, placing orders, interpretation of diagnostic studies, discussion with consultants, patient, and family members, as well as other required patient management activities is 75 minutes Please note the above document was generated using voice recognition software. It may contain grammatical, syntax or spelling errors. Any formal questions or concerns about the content, text or information contained within the body of this dictation should be directly addressed to the provider for clarification Admission and Anticipated Discharge Date Admission Date: February 13, 2023 Subjective Patient seen and examined at bedside. She is lying in the bed; appears to be in moderate respiratory distress. Reports that she gets short of breath on minimal exertion Review of Systems Review of Systems: All systems reviewed & are unremarkable except as noted in Subjective Physical Exam Physical Exam: Physical Exam: Vitals signs as noted above General Appearance:Thin, frail, no apparent distress, Ill appearing Head: normocephalic, Atraumatic Eyes: normal inspection, EOMI Neck: supple, Trachea midline Respiratory/Chest: Decreased breath sounds on bilateral bases Cardiovascular: S1, S2, No murmur Abdomen/GI:Soft, distended, non tender, Bowel sounds present Extremities/Musculoskeletal:normal inspection, no edema Neurologic/Psych:AAOX3, grossly no focal neurological deficits Skin: normal color, warm Results & Data Results & Data Vital Signs (Past 12 Hours) Vital Signs Temp Pulse Pulse Resp BP Pulse Ox O2 Del Method 02/18/23 11:06 36.4 C L 60 17 103/66 94 Nasal Cannula 02/18/23 08:30 Nasal Cannula 02/18/23 07:49 36.5 C 61 17 95/52 L 93 Nasal Cannula 02/18/23 05:58 60 O2 Flow Rate 02/18/23 11:06 1 02/18/23 08:30 1 02/18/23 07:49 1 02/18/23 05:58 Laboratory Results Laboratory Results WBC 7.49 K/ul (4.8-10.8) 02/18/23 06:25 RBC 3.37 M/uL (4.20-5.40) L 02/18/23 06:25 Hgb 9.0 g/dl (12.0-16.0) L 02/18/23 06:25 Hct 30.3 % (37.0-47.0) L 02/18/23 06:25 MCV 89.9 fL (80.0-100.0) 02/18/23 06:25 MCH 26.7 pg (25.0-34.0) 02/18/23 06:25 MCHC 29.7 g/dL (32.0-36.0) L 02/18/23 06:25 RDW Std Deviation 54.5 fL (36.4-46.3) H 02/18/23 06:25 RDW Coeff of Nasir 17.6 % (11.5-14.5) H 02/18/23 06:25 Plt Count 244 K/uL (130-400) 02/18/23 06:25 MPV 10.7 fL (9.4-12.4) 02/18/23 06:25 Immature Gran % (Auto) 0.6 % 02/14/23 05:44 Neut % (Auto) 87.2 % 02/14/23 05:44 Lymph % (Auto) 5.4 % 02/14/23 05:44 Quay % (Auto) 6.0 % 02/14/23 05:44 Eos % (Auto) 0.4 % 02/14/23 05:44 Baso % (Auto) 0.4 % 02/14/23 05:44 Neut # (Auto) 6.98 K/uL (1.40-6.50) H 02/14/23 05:44 Lymph # (Auto) 0.43 K/uL (1.20-3.40) L 02/14/23 05:44 Quay # (Auto) 0.48 K/uL (0.11-0.59) 02/14/23 05:44 Eos # (Auto) 0.03 K/uL (0.00-0.50) 02/14/23 05:44 Baso # (Auto) 0.03 K/uL (0.00-0.20) 02/14/23 05:44 Immature Gran # (Auto) 0.05 K/uL (0.01-0.20) 02/14/23 05:44 Sodium 140 mmol/L (136-145) 02/18/23 06:25 Potassium 3.3 mmol/L (3.5-5.1) L 02/18/23 06:25 Chloride 105 mmol/L (98-107) 02/18/23 06:25 Carbon Dioxide 28 mmol/L (21-32) 02/18/23 06:25 Anion Gap 7 (3-11) 02/18/23 06:25 BUN 10 mg/dl (6-23) 02/18/23 06:25 Creatinine 0.63 mg/dl (0.6-1.2) 02/18/23 06:25 Est Cr Clr Drug Dosing 62.8 ml/min 02/18/23 06:25 Est GFR ( Amer) 101.0 ml/min 02/18/23 06:25 Est GFR (Non-Af Amer) 87.1 ml/min 02/18/23 06:25 BUN/Creatinine Ratio 15.9 (10-20) 02/18/23 06:25 Glucose 77 mg/dl (70-99(Fasting)) 02/18/23 06:25 Calcium 8.5 mg/dl (8.6-10.3) L 02/18/23 06:25 Magnesium 2.0 mg/dl (1.7-2.4) 02/18/23 06:25 Total Bilirubin 0.8 mg/dl (0.2-1.0) 02/13/23 03:48 AST 26 U/L (13-39) 02/13/23 03:48 ALT 18 U/L (7-52) 02/13/23 03:48 Alkaline Phosphatase 81 U/L (34-104) 02/13/23 03:48 Lactate Dehydrogenase 294 U/L (86-244) H 02/13/23 16:37 Total Protein 7.7 gm/dl (6.0-8.3) 02/13/23 03:48 Albumin 3.2 gm/dl (3.4-5.0) L 02/13/23 03:48 Globulin 4.5 gm/dl (2.5-4.0) H 02/13/23 03:48 Albumin/Globulin Ratio 0.7 (0.9-2) L 02/13/23 03:48 Lipase 11 U/L (11-82) 02/13/23 03:48 TSH 10.336 uIu/ml (0.300-4.500) H 02/16/23 06:22 Free T4 1.37 ng/dl (0.61-1.60) 02/16/23 06:22 Urine Color Yellow 02/13/23 06:10 Urine Appearance Clear (Clear) 02/13/23 06:10 Urine pH 7.5 (4.5-7.5) 02/13/23 06:10 Ur Specific [place] 1.025 (1.000-1.030) 02/13/23 06:10 Urine Protein Negative (Negative) 02/13/23 06:10 Urine Glucose (UA) Negative (Negative) 02/13/23 06:10 Urine Ketones Negative (Negative) 02/13/23 06:10 Urine Blood 3+ (Negative) H 02/13/23 06:10 Urine Nitrite Negative (Negative) 02/13/23 06:10 Urine Bilirubin Negative (Negative) 02/13/23 06:10 Urine Urobilinogen Negative (Negative) 02/13/23 06:10 Ur Leukocyte Esterase Trace (Negative) H 02/13/23 06:10 Urine WBC (Auto) 1-5 /hpf (0-5) 02/13/23 06:10 Urine RBC (Auto) 10-30 /hpf (0-4) H 02/13/23 06:10 U Hyaline Cast (Auto) 1-5 /lpf (0-5) 02/13/23 06:10 U Epithel Cells (Auto) >30 /lpf (0-5) H 02/13/23 06:10 Urine Bacteria (Auto) Negative (Negative) 02/13/23 06:10 Fluid Neutrophils % 12 % 02/13/23 Unknown Fluid Lymphocytes % 20 % 02/13/23 Unknown Fluid Eosinophils % 1 % 02/13/23 Unknown Fluid Meso/Macro/Quay % 67 % 02/13/23 Unknown Fluid Comment 02/13/23 Unknown Pleural Fluid Source Left Lung 02/13/23 Unknown Pleural Color Red 02/13/23 Unknown Pleural Appearance Cloudy 02/13/23 Unknown Pleural pH 7.62 (7.3-7.4) H 02/13/23 Unknown Pleural WBC (Auto) 252 /uL 02/13/23 Unknown Pleural RBC (Auto) 14804 /uL 02/13/23 Unknown Pleural Total Protein < 3.0 gm/dl 02/13/23 Unknown Pleural Total Protein Cancelled 02/13/23 Unknown Pleural LDH 97 U/L 02/13/23 Unknown Pleural LDH Cancelled 02/13/23 Unknown Pleural Glucose 98 mg/dl 02/13/23 Unknown SARS-CoV-2, RNA, NAAT NEGATIVE (NEGATIVE) 02/13/23 Unknown Blood Type O Positive 02/13/23 04:07 Antibody Screen NEGATIVE 02/13/23 04:07 Crossmatch See Detail 02/13/23 04:07 Impressions Abdomen/Pelvis CT 02/13/23 04:28 Exam(s): CT ABDOMEN + PELVIS With Contrast IV Amt: 90 ml optiray 320 EXAM: CT Abdomen and Pelvis With Intravenous Contrast CLINICAL HISTORY: Reason for exam: perforation of gastric ulcer? abd pain. TECHNIQUE: Axial computed tomography images of the abdomen and pelvis with intravenous contrast. CTDI is 14.07 mGy and DLP is 686.59 mGy-cm. Automated exposure control was utilized for the study. A dose lowering technique was utilized adhering to the principles of ALARA. CONTRAST: Patient received 90 ml optiray 320 of IV contrast COMPARISON: CT Abdomen Pelvis dated february 02 2023 FINDINGS: Lung bases: Large bilateral pleural effusions, incompletely characterized, with partially visualized left lower lobe collapse and partial right lower lobe collapse. Mediastinum: Radiopaque foreign body noted within the hiatal hernia which is favored to be iatrogenic in nature. Consider correlation with prior procedural history. This is noted on prior CT abdomen/pelvis February 02, 2023. ABDOMEN: Liver: Heterogeneous attenuation of the liver. Gallbladder and bile ducts: Patient is status post internalized biliary stent with proximal coil at the hepatic hilum and distal coil within the duodenum. Diffuse gallbladder wall thickening with adjacent stranding. Findings may be due to volume overload or low protein state. If there is further concern for cholecystitis, consider HIDA imaging. No ductal dilation. Pancreas: Unremarkable. No mass. No ductal dilation. Spleen: Unremarkable. No splenomegaly. Adrenals: Unremarkable. No mass. Kidneys and ureters: Unremarkable. No solid mass. No hydronephrosis. Stomach and bowel: Previously noted soft tissue mass within the stomach is not visualized. If there is further concern for ulcer, consider direct inspection or fluoroscopic imaging. Rectal vault distention measuring 6.4 cm. No evidence of adjacent stranding. Stercoral colitis is less likely. Consider disimpaction. Colonic diverticulosis. No evidence of diverticulitis. PELVIS: Appendix: No findings to suggest acute appendicitis. Bladder: Gas the bladder dome may be post procedural nature. Cystitis also possible. Consider correlation with laboratory values. Reproductive: Fibroid within the posterior uterus. ABDOMEN and PELVIS: Intraperitoneal space: Moderate volume mesenteric volume of abdominal and pelvic ascites. No free air. Bones/joints: No acute fracture. No dislocation. Soft tissues: Unremarkable. Vasculature: Unremarkable. No abdominal aortic aneurysm. Lymph nodes: Unremarkable. No enlarged lymph nodes. IMPRESSION: 1. Patient is status post internalized biliary stent with proximal coil at the hepatic hilum and distal coil within the duodenum. 2. Moderate volume mesenteric volume of abdominal and pelvic ascites. 3. Previously noted soft tissue mass within the stomach is not visualized. If there is further concern for ulcer, consider direct inspection or fluoroscopic imaging. 4. Findings suspicious for systemic volume overload with large bilateral pleural effusions, moderate mesenteric ascites, and anasarca. 5. Rectal vault distention measuring 6.4 cm. No evidence of adjacent stranding. Stercoral colitis is less likely. Consider disimpaction. 6. Diffuse gallbladder wall thickening with adjacent stranding. Findings may be due to volume overload or low protein state. If there is further concern for cholecystitis, consider HIDA imaging. 7. No other acute findings. 8. Incidental findings as described. Electronically signed by: Jose Silva MD 02/13/23 05:31 AM KUB X-Ray 02/17/23 07:00 KUB HISTORY: constipation COMPARISON: KUB 02/15/2023. FINDINGS: The bowel gas pattern is unremarkable. There are no dilated loops of small bowel to suggest an obstruction. No renal calculi. No ureteral calculi. Calcifications in the deep pelvis likely represent phleboliths. These remain unchanged. The common bile duct stent remains in place. Small amount of ascites is suggested. No pneumoperitoneum or pneumatosis. Bilateral pleural effusions are partially visualized. IMPRESSION: 1. Nonobstructive bowel gas pattern. 2. The common bile duct stent is unchanged in position. 3. Bilateral pleural effusions and a small amount of ascites is again noted. ACT 112: Negative or not required by law. Electronically signed by: Markie Silva M.D. 02/17/2023 12:03 PM Abdomen Ultrasound 02/17/23 11:23 US abdomen ltd ascites CLINICAL HISTORY: Ascites TECHNIQUE: Real-time grayscale sonographic images of the abdomen were obtained. Comparison: Comparison is made to CT abdomen pelvis 02/13/2023 FINDINGS/IMPRESSION: Small ascites is seen most prominent in the left abdomen. A right pleural effusion is noted. ACT 112: Negative or not required by law. Electronically signed by: Jose Ramon Murcia M.D. 02/17/2023 2:20 PM Chest X-Ray 02/17/23 14:47 XR chest 1V portable CLINICAL HISTORY: Dyspnea TECHNIQUE: Single frontal radiograph of the chest was obtained. Comparison: Comparison is made to chest radiograph 02/13/2023 FINDINGS: An implanted pacemaker is seen. The cardiomediastinal silhouette is obscured. Left lung airspace opacity is somewhat decreased from prior exam. There is faint airspace opacity in the right lower lung. Moderate left pleural effusion is seen. This appears to be increased from prior exam. Small right pleural effusion is seen. IMPRESSION: 1. Moderate left and small right pleural effusions, increased from prior exam. 2. Interval improvement in left airspace opacities with faint right lower lung airspace opacities. Findings may represent atelectasis, pneumonia, and/or aspiration. ACT 112: Negative or not required by law. Electronically signed by: Jose Ramon Murcia M.D. 02/17/2023 3:30 PM
[2023-02-19] MEDS: LEVOTHYROXINE SODIUM 50 MCG TABLET PO SCH (05:04)
[2023-02-19] MEDS: MoRPHine SULFATE 2 MG/ML CARP IV PRN ×2 (07:39→17:14)
[2023-02-19] MEDS: FUROSEMIDE 40 MG/4 ML VIAL IV SCH ×2 (09:46→20:35)
[2023-02-19] MEDS: PANTOprazole 40 MG in SYRINGE 0 ML IV SCH ×2 (09:46→20:25)
[2023-02-19] MEDS: ESCITALOPRAM OXALATE 10 MG TAB PO SCH (09:47)
[2023-02-19] MEDS: CYANOCOBALAMIN (B-12) 500 MCG TABLET PO SCH (09:47)
[2023-02-19] MEDS: AMIODARONE 200 MG TAB PO SCH ×2 (09:47→20:25)
[2023-02-19] MEDS: POTASSIUM CHLORIDE 20 MEQ/15 ML UDC PO SCH ×2 (09:47→20:25)
[2023-02-19] MEDS: POLYETHYLENE (MIRALAX) 17 GM PACK PO SCH (09:47)
[2023-02-19] MEDS: SPIRONOLACTONE 25 MG TAB PO SCH (09:47)
[2023-02-19] MEDS: MIDODRINE HCL 2.5 MG TAB PO SCH ×3 (09:47→16:48)
--- NOTE | 2023-02-19 10:10 | Cardiology Progress Note ---
Date of Service February 19, 2023 Assessment & Plan (1) Acute on chronic heart failure with preserved ejection fraction (HFpEF): (2) Cardiac amyloidosis: (3) Tachy-walker syndrome: (4) History of permanent cardiac pacemaker placement: Plan -Patient with acute on chronic heart failure with preserved ejection fraction, amyloid cardiomyopathy with what is felt to be end-stage disease. Patient has had a rapid decline in her clinical status over the last 6 weeks. -She was admitted with gastrointestinal bleeding having recently been placed on anticoagulation due to concerns of atrial arrhythmias. Other than on her previous hospital stay, some of the rhythm strips were suggestive atrial fibrillation, the predominant atrial arrhythmia has been felt to be atrial tachycardia per my last encounter with her. Patient undergone repeat left thoracentesis on 02/13/2023 and has reaccumulated as per repeat CXR on 02/17/23 per my review of the images. She remains on Zosyn for possible superimposed infection which at this point I think we can discontinue as her CXR is more consistent with CHF. Patient is on amiodarone for rhythm control, midodrine for blood pressure support, spironolactone, furosemide 40 mg IV twice daily, potassium chloride. Had family meeting on 02/17/23, family / patient favoring home hospice. After further discussion with on 02/18/2023, preferences for no further procedures. At this time, would consider transitioning to palliative care strategy. Her furosemide is likely part of the palliative strategy to help reduce her suffering. Would liberalize the use of anxiolytics and pain medication including morphine to treat air hunger symptoms. Admission and Anticipated Discharge Date Admission Date: February 13, 2023 Subjective Patient seen in cardiology follow-up. Notes feeling generalized severe tiredness and is uncomfortable. Physical Exam Constitutional: + ill appearing Respiratory: Auscultation: + diminished lung sounds (decreased BS at the left base ) Cardiovascular: RRR, no murmur, no edema Gastrointestinal (Abdomen): Inspection/Auscultation: + abdomen distended Percussion/Palpation: + abdomen tender and + ascites Neurologic: PERRL, EOMI, accommodation nl, no face palsy, no dysarthria Results & Data Vital Signs (Past 12 Hours) Vital Signs Temp Pulse Pulse Resp BP Pulse Ox O2 Del Method 02/19/23 08:00 36.6 C 74 20 98/56 L 91 Nasal Cannula 02/19/23 02:46 36.5 C 65 18 108/67 91 Nasal Cannula 02/18/23 23:02 62 02/18/23 22:45 36.6 C 60 18 108/60 98 Nasal Cannula O2 Flow Rate 02/19/23 08:00 1 02/19/23 02:46 1 02/18/23 23:02 02/18/23 22:45 1 Laboratory Results Intake and Output 02/18/23 02/19/23 02/19/23 22:59 06:59 14:59 Output Total 250 / 751 401 / 751 Balance -250 / -651 -401 / -651 Output: Urine Amount (Catheter) 250 / 650 400 / 650 External 250 / 650 400 / 650 # Bowel Movements Other: Other Intake Source sips sips # Unmeasured Voids 1 Weight 61.1 kg
[2023-02-19] MEDS: DOCUSATE SODIUM/SENNA 50/8.6MG TAB PO SCH (10:28)
--- NOTE | 2023-02-19 14:37 | Hospitalist Progress Note ---
Date of Service February 19, 2023 Assessment & Plan (1) Acute GI bleeding: Plan: Patient is a 77 yr female with H/O chronic diastolic CHF, idiopathic cardiomyopathy, cardiac amyloidosis, tachybradycardia syndrome s/p pacemaker, left ventricle hypertrophy, chronic atrial fibrillation, acute gastric ulcer with hemorrhage, multiple myeloma s/p chemo, hemorrhagic shock presents with GI bleed Acute GI bleeding ? Secondary to bleeding peptic ulcers H/O peptic ulcer disease --S/P EGD:Normal upper third of esophagus and middle third of esophagus. Mild Schatzki ring. Large hiatal hernia with multiple Elías ulcers. Non-obstructing non-bleeding gastric ulcer with no stigmata of bleeding. Normal examined duodenum. No specimens collected. --CT ABD: Patient is status post internalized biliary stent with proximal coil at the hepatic hilum and distal coil within the duodenum. Moderate volume mesenteric volume of abdominal and pelvic ascites. Previously noted soft tissue mass within the stomach is not visualized. If there is further concern for ulcer, consider direct inspection or fluoroscopic imaging. Findings suspicious for systemic volume overload with large bilateral pleural effusions, moderate mesenteric ascites, and anasarca. Rectal vault distention measuring 6.4 cm. No evidence of adjacent stranding. Stercoral colitis is less likely. Consider disimpaction. Diffuse gallbladder wall thickening with adjacent stranding. Findings may be due to volume overload or low protein state. If there is further concern for cholecystitis, consider HIDA imaging. No other acute findings. --S/P colonoscopy on 02/14/23:Preparation of the colon was inadequate. Hemorrhoids found on perianal exam. Stool in the rectum and in the sigmoid colon. No specimens collected. -- Monitor H&H and transfuse PRBCs as needed Continue IV Protonix, Carafate Continue enema, MiraLAX daily as recommended by GI Needs repeat colonoscopy in 3 months given suboptimal preparation continue full liquid diet for now (patient prefers not to advance for now) Received tap water enema--patient refuses Currently no acute bleeding issues Anasarca Acute decompensated diastolic CHF-POA Cardiac amyloidosis --CXR personally reviewed:Increase in size of a large left pleural effusion. Slight increase in a small right pleural effusion. Cardiomegaly with mild interstitial pulmonary edema. -- CT abdomen as above --ECHO: Large left pleural effusion. Trivial loculated right lateral pericardial effusion. No echocardiogenic indications of cardiac tamponade. Dilated inferior vena cava with reduced collapsibility with sniff indicates an elevated right atrial pressure of 15 mmHg. --S/P thoracentesis on 02/13/23; pleural fluid suggestive transudative. Continue IV Lasix 40 mg twice daily Cardiology discussed with family; patient has reached end stage level of CHF Recommend hospice care. Hemorrhoids Symptomatic management Hypokalemia Replete electrolytes as needed Monitor Chronic hypotension Continue midodrine Monitor BP History of A-fib Tachybradycardia syndrome S/p pacemaker Continue Amiodarone Eliquis on hold due to GI bleed H/O choledocholithiasis S/P biliary sphincterotomy and balloon extraction, plastic biliary stent placement in the common bile duct on 01/10/2023. Plan for repeat ERCP for stent removal --2 months from stent placement Also plan for endoscopic ultrasound-guided gallbladder drainage using axios stent as patient was deemed to be nonsurgical candidate at the time. Normal LFTs History of multiple myeloma s/p chemo Follow-up with heme-onc Hypothyroidism TSH elevated, normal free T4 Continue levothyroxine Will need repeat thyroid function test as outpatient DVT Px: SCDs Re: GI bleed Goals of care discussion; discussed with patient and patient's at bedside on 02/18 Patient is aware that she she has progressed worse end stage heart failure. Her pleural effusion has progressed despite IV diuretics. Her respiratory symptoms has increased as well; she is short of breath at rest. She agrees that ventilatory support will not be beneficial at this point. CODE STATUS is changed to DNR/DNI. Patient is already on morphine as needed for dyspnea/pain. Plan is to continue current management. If the patient decompensates further; plan is to transition to comfort care measures. Dispositionplan to transition her to hospice care inpatient/at home. Will appreciate palliative care input. Time spent evaluating patient, direct bedside care, chart review, placing orders, interpretation of diagnostic studies, discussion with consultants, patient, and family members, as well as other required patient management activities is 60 minutes Please note the above document was generated using voice recognition software. It may contain grammatical, syntax or spelling errors. Any formal questions or concerns about the content, text or information contained within the body of this dictation should be directly addressed to the provider for clarification Admission and Anticipated Discharge Date Admission Date: February 13, 2023 Subjective Patient seen and examined at bedside. She is sleepy but awake able to voice. Does not appear to be in any distress. Review of Systems Review of Systems: All systems reviewed & are unremarkable except as noted in Subjective Physical Exam Physical Exam: Physical Exam: Vitals signs as noted above General Appearance:Thin, frail, no apparent distress, Ill appearing Head: normocephalic, Atraumatic Eyes: normal inspection, EOMI Neck: supple, Trachea midline Respiratory/Chest: Decreased breath sounds on bilateral bases Cardiovascular: S1, S2, No murmur Abdomen/GI:Soft, distended, non tender, Bowel sounds present Extremities/Musculoskeletal:normal inspection, no edema Neurologic/Psych:AAOX3, grossly no focal neurological deficits Skin: normal color, warm Results & Data Results & Data Vital Signs (Past 12 Hours) Vital Signs Temp Pulse Resp BP Pulse Ox O2 Del Method O2 Flow Rate 02/19/23 12:00 36.5 C 77 18 115/65 95 Room Air 02/19/23 08:00 Nasal Cannula 1 02/19/23 08:00 36.6 C 74 20 98/56 L 91 Nasal Cannula 1 02/19/23 02:46 36.5 C 65 18 108/67 91 Nasal Cannula 1 Laboratory Results Laboratory Results WBC 7.49 K/ul (4.8-10.8) 02/18/23 06:25 RBC 3.37 M/uL (4.20-5.40) L 02/18/23 06:25 Hgb 9.0 g/dl (12.0-16.0) L 02/18/23 06:25 Hct 30.3 % (37.0-47.0) L 02/18/23 06:25 MCV 89.9 fL (80.0-100.0) 02/18/23 06:25 MCH 26.7 pg (25.0-34.0) 02/18/23 06:25 MCHC 29.7 g/dL (32.0-36.0) L 02/18/23 06:25 RDW Std Deviation 54.5 fL (36.4-46.3) H 02/18/23 06:25 RDW Coeff of Nasir 17.6 % (11.5-14.5) H 02/18/23 06:25 Plt Count 244 K/uL (130-400) 02/18/23 06:25 MPV 10.7 fL (9.4-12.4) 02/18/23 06:25 Immature Gran % (Auto) 0.6 % 02/14/23 05:44 Neut % (Auto) 87.2 % 02/14/23 05:44 Lymph % (Auto) 5.4 % 02/14/23 05:44 [place] % (Auto) 6.0 % 02/14/23 05:44 Eos % (Auto) 0.4 % 02/14/23 05:44 Baso % (Auto) 0.4 % 02/14/23 05:44 Neut # (Auto) 6.98 K/uL (1.40-6.50) H 02/14/23 05:44 Lymph # (Auto) 0.43 K/uL (1.20-3.40) L 02/14/23 05:44 [place] # (Auto) 0.48 K/uL (0.11-0.59) 02/14/23 05:44 Eos # (Auto) 0.03 K/uL (0.00-0.50) 02/14/23 05:44 Baso # (Auto) 0.03 K/uL (0.00-0.20) 02/14/23 05:44 Immature Gran # (Auto) 0.05 K/uL (0.01-0.20) 02/14/23 05:44 Sodium 140 mmol/L (136-145) 02/18/23 06:25 Potassium 3.3 mmol/L (3.5-5.1) L 02/18/23 06:25 Chloride 105 mmol/L (98-107) 02/18/23 06:25 Carbon Dioxide 28 mmol/L (21-32) 02/18/23 06:25 Anion Gap 7 (3-11) 02/18/23 06:25 BUN 10 mg/dl (6-23) 02/18/23 06:25 Creatinine 0.63 mg/dl (0.6-1.2) 02/18/23 06:25 Est Cr Clr Drug Dosing 62.8 ml/min 02/18/23 06:25 Est GFR ( Amer) 101.0 ml/min 02/18/23 06:25 Est GFR (Non-Af Amer) 87.1 ml/min 02/18/23 06:25 BUN/Creatinine Ratio 15.9 (10-20) 02/18/23 06:25 Glucose 77 mg/dl (70-99(Fasting)) 02/18/23 06:25 Calcium 8.5 mg/dl (8.6-10.3) L 02/18/23 06:25 Magnesium 2.0 mg/dl (1.7-2.4) 02/18/23 06:25 Total Bilirubin 0.8 mg/dl (0.2-1.0) 02/13/23 03:48 AST 26 U/L (13-39) 02/13/23 03:48 ALT 18 U/L (7-52) 02/13/23 03:48 Alkaline Phosphatase 81 U/L (34-104) 02/13/23 03:48 Lactate Dehydrogenase 294 U/L (86-244) H 02/13/23 16:37 Total Protein 7.7 gm/dl (6.0-8.3) 02/13/23 03:48 Albumin 3.2 gm/dl (3.4-5.0) L 02/13/23 03:48 Globulin 4.5 gm/dl (2.5-4.0) H 02/13/23 03:48 Albumin/Globulin Ratio 0.7 (0.9-2) L 02/13/23 03:48 Lipase 11 U/L (11-82) 02/13/23 03:48 TSH 10.336 uIu/ml (0.300-4.500) H 02/16/23 06:22 Free T4 1.37 ng/dl (0.61-1.60) 02/16/23 06:22 Urine Color Yellow 02/13/23 06:10 Urine Appearance Clear (Clear) 02/13/23 06:10 Urine pH 7.5 (4.5-7.5) 02/13/23 06:10 Ur Specific [place] 1.025 (1.000-1.030) 02/13/23 06:10 Urine Protein Negative (Negative) 02/13/23 06:10 Urine Glucose (UA) Negative (Negative) 02/13/23 06:10 Urine Ketones Negative (Negative) 02/13/23 06:10 Urine Blood 3+ (Negative) H 02/13/23 06:10 Urine Nitrite Negative (Negative) 02/13/23 06:10 Urine Bilirubin Negative (Negative) 02/13/23 06:10 Urine Urobilinogen Negative (Negative) 02/13/23 06:10 Ur Leukocyte Esterase Trace (Negative) H 02/13/23 06:10 Urine WBC (Auto) 1-5 /hpf (0-5) 02/13/23 06:10 Urine RBC (Auto) 10-30 /hpf (0-4) H 02/13/23 06:10 U Hyaline Cast (Auto) 1-5 /lpf (0-5) 02/13/23 06:10 U Epithel Cells (Auto) >30 /lpf (0-5) H 02/13/23 06:10 Urine Bacteria (Auto) Negative (Negative) 02/13/23 06:10 Fluid Neutrophils % 12 % 02/13/23 Unknown Fluid Lymphocytes % 20 % 02/13/23 Unknown Fluid Eosinophils % 1 % 02/13/23 Unknown Fluid [place] % 67 % 02/13/23 Unknown Fluid Comment 02/13/23 Unknown Pleural Fluid Source Left Lung 02/13/23 Unknown Pleural Color Red 02/13/23 Unknown Pleural Appearance Cloudy 02/13/23 Unknown Pleural pH 7.62 (7.3-7.4) H 02/13/23 Unknown Pleural WBC (Auto) 252 /uL 02/13/23 Unknown Pleural RBC (Auto) 18205 /uL 02/13/23 Unknown Pleural Total Protein < 3.0 gm/dl 02/13/23 Unknown Pleural Total Protein Cancelled 02/13/23 Unknown Pleural LDH 97 U/L 02/13/23 Unknown Pleural LDH Cancelled 02/13/23 Unknown Pleural Glucose 98 mg/dl 02/13/23 Unknown SARS-CoV-2, RNA, NAAT NEGATIVE (NEGATIVE) 02/13/23 Unknown Blood Type O Positive 02/13/23 04:07 Antibody Screen NEGATIVE 02/13/23 04:07 Crossmatch See Detail 02/13/23 04:07 Impressions Abdomen/Pelvis CT 02/13/23 04:28 Exam(s): CT ABDOMEN + PELVIS With Contrast IV Amt: 90 ml optiray 320 EXAM: CT Abdomen and Pelvis With Intravenous Contrast CLINICAL HISTORY: Reason for exam: perforation of gastric ulcer? abd pain. TECHNIQUE: Axial computed tomography images of the abdomen and pelvis with intravenous contrast. CTDI is 14.07 mGy and DLP is 686.59 mGy-cm. Automated exposure control was utilized for the study. A dose lowering technique was utilized adhering to the principles of ALARA. CONTRAST: Patient received 90 ml optiray 320 of IV contrast COMPARISON: CT Abdomen Pelvis dated february 02 2023 FINDINGS: Lung bases: Large bilateral pleural effusions, incompletely characterized, with partially visualized left lower lobe collapse and partial right lower lobe collapse. Mediastinum: Radiopaque foreign body noted within the hiatal hernia which is favored to be iatrogenic in nature. Consider correlation with prior procedural history. This is noted on prior CT abdomen/pelvis February 02, 2023. ABDOMEN: Liver: Heterogeneous attenuation of the liver. Gallbladder and bile ducts: Patient is status post internalized biliary stent with proximal coil at the hepatic hilum and distal coil within the duodenum. Diffuse gallbladder wall thickening with adjacent stranding. Findings may be due to volume overload or low protein state. If there is further concern for cholecystitis, consider HIDA imaging. No ductal dilation. Pancreas: Unremarkable. No mass. No ductal dilation. Spleen: Unremarkable. No splenomegaly. Adrenals: Unremarkable. No mass. Kidneys and ureters: Unremarkable. No solid mass. No hydronephrosis. Stomach and bowel: Previously noted soft tissue mass within the stomach is not visualized. If there is further concern for ulcer, consider direct inspection or fluoroscopic imaging. Rectal vault distention measuring 6.4 cm. No evidence of adjacent stranding. Stercoral colitis is less likely. Consider disimpaction. Colonic diverticulosis. No evidence of diverticulitis. PELVIS: Appendix: No findings to suggest acute appendicitis. Bladder: Gas the bladder dome may be post procedural nature. Cystitis also possible. Consider correlation with laboratory values. Reproductive: Fibroid within the posterior uterus. ABDOMEN and PELVIS: Intraperitoneal space: Moderate volume mesenteric volume of abdominal and pelvic ascites. No free air. Bones/joints: No acute fracture. No dislocation. Soft tissues: Unremarkable. Vasculature: Unremarkable. No abdominal aortic aneurysm. Lymph nodes: Unremarkable. No enlarged lymph nodes. IMPRESSION: 1. Patient is status post internalized biliary stent with proximal coil at the hepatic hilum and distal coil within the duodenum. 2. Moderate volume mesenteric volume of abdominal and pelvic ascites. 3. Previously noted soft tissue mass within the stomach is not visualized. If there is further concern for ulcer, consider direct inspection or fluoroscopic imaging. 4. Findings suspicious for systemic volume overload with large bilateral pleural effusions, moderate mesenteric ascites, and anasarca. 5. Rectal vault distention measuring 6.4 cm. No evidence of adjacent stranding. Stercoral colitis is less likely. Consider disimpaction. 6. Diffuse gallbladder wall thickening with adjacent stranding. Findings may be due to volume overload or low protein state. If there is further concern for cholecystitis, consider HIDA imaging. 7. No other acute findings. 8. Incidental findings as described. Electronically signed by: Jose Silva MD 02/13/23 05:31 AM KUB X-Ray 02/17/23 07:00 KUB HISTORY: constipation COMPARISON: KUB 02/15/2023. FINDINGS: The bowel gas pattern is unremarkable. There are no dilated loops of small bowel to suggest an obstruction. No renal calculi. No ureteral calculi. Calcifications in the deep pelvis likely represent phleboliths. These remain unchanged. The common bile duct stent remains in place. Small amount of ascites is suggested. No pneumoperitoneum or pneumatosis. Bilateral pleural effusions are partially visualized. IMPRESSION: 1. Nonobstructive bowel gas pattern. 2. The common bile duct stent is unchanged in position. 3. Bilateral pleural effusions and a small amount of ascites is again noted. ACT 112: Negative or not required by law. Electronically signed by: Markie Silva M.D. 02/17/2023 12:03 PM Abdomen Ultrasound 02/17/23 11:23 US abdomen ltd ascites CLINICAL HISTORY: Ascites TECHNIQUE: Real-time grayscale sonographic images of the abdomen were obtained. Comparison: Comparison is made to CT abdomen pelvis 02/13/2023 FINDINGS/IMPRESSION: Small ascites is seen most prominent in the left abdomen. A right pleural effusion is noted. ACT 112: Negative or not required by law. Electronically signed by: Jose Ramon Murcia M.D. 02/17/2023 2:20 PM Chest X-Ray 02/17/23 14:47 XR chest 1V portable CLINICAL HISTORY: Dyspnea TECHNIQUE: Single frontal radiograph of the chest was obtained. Comparison: Comparison is made to chest radiograph 02/13/2023 FINDINGS: An implanted pacemaker is seen. The cardiomediastinal silhouette is obscured. Left lung airspace opacity is somewhat decreased from prior exam. There is faint airspace opacity in the right lower lung. Moderate left pleural effusion is seen. This appears to be increased from prior exam. Small right pleural effusion is seen. IMPRESSION: 1. Moderate left and small right pleural effusions, increased from prior exam. 2. Interval improvement in left airspace opacities with faint right lower lung airspace opacities. Findings may represent atelectasis, pneumonia, and/or aspiration. ACT 112: Negative or not required by law. Electronically signed by: Jose Ramon Murcia M.D. 02/17/2023 3:30 PM
[2023-02-20] MEDS: MoRPHine SULFATE 2 MG/ML CARP IV PRN ×3 (03:53→13:44)
[2023-02-20] MEDS: LEVOTHYROXINE SODIUM 50 MCG TABLET PO SCH (05:37)
[2023-02-20] MEDS: MIDODRINE HCL 2.5 MG TAB PO SCH ×3 (08:26→16:29)
[2023-02-20] MEDS: ESCITALOPRAM OXALATE 10 MG TAB PO SCH (08:26)
[2023-02-20] MEDS: AMIODARONE 200 MG TAB PO SCH ×2 (08:26→20:00)
[2023-02-20] MEDS: CYANOCOBALAMIN (B-12) 500 MCG TABLET PO SCH (08:26)
[2023-02-20] MEDS: DOCUSATE SODIUM/SENNA 50/8.6MG TAB PO SCH (08:26)
[2023-02-20] MEDS: FUROSEMIDE 40 MG/4 ML VIAL IV SCH ×2 (08:26→20:02)
[2023-02-20] MEDS: PANTOprazole 40 MG in SYRINGE 0 ML IV SCH ×2 (08:26→20:03)
[2023-02-20] MEDS: SPIRONOLACTONE 25 MG TAB PO SCH (08:27)
[2023-02-20] MEDS: POLYETHYLENE (MIRALAX) 17 GM PACK PO SCH (08:27)
[2023-02-20] MEDS: POTASSIUM CHLORIDE 20 MEQ/15 ML UDC PO SCH ×2 (08:27→20:04)
[2023-02-20] MEDS: MoRPHine SULFATE 10 MG/0.5 ML UDP PO PRN (09:00)
--- NOTE | 2023-02-20 11:10 | Cardiology Progress Note ---
Date of Service February 20, 2023 Assessment & Plan (1) Acute on chronic heart failure with preserved ejection fraction (HFpEF): (2) Cardiac amyloidosis: (3) Tachy-walker syndrome: (4) History of permanent cardiac pacemaker placement: Plan -Patient with acute on chronic heart failure with preserved ejection fraction, amyloid cardiomyopathy with what is felt to be end-stage disease. Patient has had a rapid decline in her clinical status over the last 6 weeks. -She was admitted with gastrointestinal bleeding having recently been placed on anticoagulation due to concerns of atrial arrhythmias. Other than on her previous hospital stay, some of the rhythm strips were suggestive atrial fibrillation, the predominant atrial arrhythmia has been felt to be atrial tachycardia per my last encounter with her. Patient undergone repeat left thoracentesis on 02/13/2023 and has reaccumulated as per repeat CXR on 02/17/23 per my review of the images. She remains on Zosyn for possible superimposed infection which at this point I think we can discontinue as her CXR is more consistent with CHF. Patient is on amiodarone for rhythm control, midodrine for blood pressure support, spironolactone, furosemide 40 mg IV twice daily, potassium chloride. Had family meeting on 02/17/23, family / patient favoring home hospice. After further discussion with on 02/18/2023, preferences for no further procedures. At this time, would consider transitioning to palliative care strategy. Her furosemide is likely part of the palliative strategy to help reduce her suffering, however I think we are at a point of need to consider stopping blood draws and non palliative medication. Would liberalize the use of anxiolytics and pain medication including morphine to treat air hunger symptoms. Admission and Anticipated Discharge Date Admission Date: February 13, 2023 Subjective Patient seen in follow up. Describes that she is exhausted. She is not on telemetry. Physical Exam Constitutional: + ill appearing Respiratory: Auscultation: + diminished lung sounds (decreased BS at the left base ) Cardiovascular: RRR, no murmur, no edema Gastrointestinal (Abdomen): Inspection/Auscultation: + abdomen distended Percussion/Palpation: + abdomen tender and + ascites Neurologic: PERRL, EOMI, accommodation nl, no face palsy, no dysarthria Results & Data Vital Signs (Past 12 Hours) Vital Signs Temp Pulse Resp BP Pulse Ox O2 Del Method O2 Flow Rate 02/20/23 07:38 36.4 C L 61 21 96/58 L 91 Nasal Cannula 1.0
--- NOTE | 2023-02-20 12:46 | Hospitalist Progress Note ---
Date of Service February 20, 2023 Assessment & Plan (1) Acute GI bleeding: Plan: Patient is a 77 yr female with H/O chronic diastolic CHF, idiopathic cardiomyopathy, cardiac amyloidosis, tachybradycardia syndrome s/p pacemaker, left ventricle hypertrophy, chronic atrial fibrillation, acute gastric ulcer with hemorrhage, multiple myeloma s/p chemo, hemorrhagic shock presents with GI bleed Acute GI bleeding ? Secondary to bleeding peptic ulcers H/O peptic ulcer disease --S/P EGD:Normal upper third of esophagus and middle third of esophagus. Mild Schatzki ring. Large hiatal hernia with multiple Elías ulcers. Non-obstructing non-bleeding gastric ulcer with no stigmata of bleeding. Normal examined duodenum. No specimens collected. --CT ABD: Patient is status post internalized biliary stent with proximal coil at the hepatic hilum and distal coil within the duodenum. Moderate volume mesenteric volume of abdominal and pelvic ascites. Previously noted soft tissue mass within the stomach is not visualized. If there is further concern for ulcer, consider direct inspection or fluoroscopic imaging. Findings suspicious for systemic volume overload with large bilateral pleural effusions, moderate mesenteric ascites, and anasarca. Rectal vault distention measuring 6.4 cm. No evidence of adjacent stranding. Stercoral colitis is less likely. Consider disimpaction. Diffuse gallbladder wall thickening with adjacent stranding. Findings may be due to volume overload or low protein state. If there is further concern for cholecystitis, consider HIDA imaging. No other acute findings. --S/P colonoscopy on 02/14/23:Preparation of the colon was inadequate. Hemorrhoids found on perianal exam. Stool in the rectum and in the sigmoid colon. No specimens collected. -- Monitor H&H and transfuse PRBCs as needed Continue IV Protonix, Carafate Continue enema, MiraLAX daily as recommended by GI Needs repeat colonoscopy in 3 months given suboptimal preparation continue full liquid diet for now (patient prefers not to advance for now) Currently no acute bleeding issues Anasarca Acute decompensated diastolic CHF-POA Cardiac amyloidosis --CXR personally reviewed:Increase in size of a large left pleural effusion. Slight increase in a small right pleural effusion. Cardiomegaly with mild interstitial pulmonary edema. -- CT abdomen as above --ECHO: Large left pleural effusion. Trivial loculated right lateral pericardial effusion. No echocardiogenic indications of cardiac tamponade. Dilated inferior vena cava with reduced collapsibility with sniff indicates an elevated right atrial pressure of 15 mmHg. --S/P thoracentesis on 02/13/23; pleural fluid suggestive transudative. Continue IV Lasix 40 mg twice daily Cardiology discussed with family; patient has reached end stage level of CHF Recommend hospice care. Hemorrhoids Symptomatic management Hypokalemia Replete electrolytes as needed Monitor Chronic hypotension Continue midodrine Monitor BP History of A-fib Tachybradycardia syndrome S/p pacemaker Continue Amiodarone Eliquis on hold due to GI bleed H/O choledocholithiasis S/P biliary sphincterotomy and balloon extraction, plastic biliary stent placement in the common bile duct on 01/10/2023. Plan for repeat ERCP for stent removal --2 months from stent placement Also plan for endoscopic ultrasound-guided gallbladder drainage using axios stent as patient was deemed to be nonsurgical candidate at the time. Normal LFTs History of multiple myeloma s/p chemo Follow-up with heme-onc Hypothyroidism TSH elevated, normal free T4 Continue levothyroxine Will need repeat thyroid function test as outpatient DVT Px: SCDs Re: GI bleed Goals of care discussion; discussed with patient and patient's at bedside on 02/18 Patient is aware that she she has progressed worse end stage heart failure. Her pleural effusion has progressed despite IV diuretics. Her respiratory symptoms has increased as well; she is short of breath at rest. She agrees that ventilatory support will not be beneficial at this point. CODE STATUS is changed to DNR/DNI. Patient is already on morphine as needed for dyspnea/pain. Plan is to continue current management. If the patient decompensates further; plan is to transition to comfort care measures. Dispositionplan to transition her to hospice care inpatient/at home. Will appreciate palliative care input. Please note the above document was generated using voice recognition software. It may contain grammatical, syntax or spelling errors. Any formal questions or concerns about the content, text or information contained within the body of this dictation should be directly addressed to the provider for clarification Admission and Anticipated Discharge Date Admission Date: February 13, 2023 Subjective Patient seen and examined at bedside. She reports that she is feeling more short of breath. She reports that morphine is helping her with the air hunger. Review of Systems Review of Systems: All systems reviewed & are unremarkable except as noted in Subjective Physical Exam Physical Exam: Physical Exam: Vitals signs as noted above General Appearance:Thin, frail, moderate respiratory distress, Ill appearing Head: normocephalic, Atraumatic Eyes: normal inspection, EOMI Neck: supple, Trachea midline Respiratory/Chest: Decreased breath sounds on bilateral bases; more on left side Cardiovascular: S1, S2, No murmur Abdomen/GI:Soft, distended, non tender, Bowel sounds present Extremities/Musculoskeletal:normal inspection, no edema Neurologic/Psych:AAOX3, grossly no focal neurological deficits Skin: normal color, warm Results & Data Results & Data Vital Signs (Past 12 Hours) Vital Signs Temp Pulse Resp BP BP Pulse Ox O2 Del Method 02/20/23 11:48 36.6 C 68 22 96/55 L 90 Nasal Cannula 02/20/23 07:38 36.4 C L 61 21 96/58 L 91 Nasal Cannula O2 Flow Rate 02/20/23 11:48 1.0 02/20/23 07:38 1.0 Laboratory Results Laboratory Results WBC 7.49 K/ul (4.8-10.8) 02/18/23 06:25 RBC 3.37 M/uL (4.20-5.40) L 02/18/23 06:25 Hgb 9.0 g/dl (12.0-16.0) L 02/18/23 06:25 Hct 30.3 % (37.0-47.0) L 02/18/23 06:25 MCV 89.9 fL (80.0-100.0) 02/18/23 06:25 MCH 26.7 pg (25.0-34.0) 02/18/23 06:25 MCHC 29.7 g/dL (32.0-36.0) L 02/18/23 06:25 RDW Std Deviation 54.5 fL (36.4-46.3) H 02/18/23 06:25 RDW Coeff of Nasir 17.6 % (11.5-14.5) H 02/18/23 06:25 Plt Count 244 K/uL (130-400) 02/18/23 06:25 MPV 10.7 fL (9.4-12.4) 02/18/23 06:25 Immature Gran % (Auto) 0.6 % 02/14/23 05:44 Neut % (Auto) 87.2 % 02/14/23 05:44 Lymph % (Auto) 5.4 % 02/14/23 05:44 [place] % (Auto) 6.0 % 02/14/23 05:44 Eos % (Auto) 0.4 % 02/14/23 05:44 Baso % (Auto) 0.4 % 02/14/23 05:44 Neut # (Auto) 6.98 K/uL (1.40-6.50) H 02/14/23 05:44 Lymph # (Auto) 0.43 K/uL (1.20-3.40) L 02/14/23 05:44 [place] # (Auto) 0.48 K/uL (0.11-0.59) 02/14/23 05:44 Eos # (Auto) 0.03 K/uL (0.00-0.50) 02/14/23 05:44 Baso # (Auto) 0.03 K/uL (0.00-0.20) 02/14/23 05:44 Immature Gran # (Auto) 0.05 K/uL (0.01-0.20) 02/14/23 05:44 Sodium 140 mmol/L (136-145) 02/18/23 06:25 Potassium 3.3 mmol/L (3.5-5.1) L 02/18/23 06:25 Chloride 105 mmol/L (98-107) 02/18/23 06:25 Carbon Dioxide 28 mmol/L (21-32) 02/18/23 06:25 Anion Gap 7 (3-11) 02/18/23 06:25 BUN 10 mg/dl (6-23) 02/18/23 06:25 Creatinine 0.63 mg/dl (0.6-1.2) 02/18/23 06:25 Est Cr Clr Drug Dosing 62.8 ml/min 02/18/23 06:25 Est GFR ( Amer) 101.0 ml/min 02/18/23 06:25 Est GFR (Non-Af Amer) 87.1 ml/min 02/18/23 06:25 BUN/Creatinine Ratio 15.9 (10-20) 02/18/23 06:25 Glucose 77 mg/dl (70-99(Fasting)) 02/18/23 06:25 Calcium 8.5 mg/dl (8.6-10.3) L 02/18/23 06:25 Magnesium 2.0 mg/dl (1.7-2.4) 02/18/23 06:25 Total Bilirubin 0.8 mg/dl (0.2-1.0) 02/13/23 03:48 AST 26 U/L (13-39) 02/13/23 03:48 ALT 18 U/L (7-52) 02/13/23 03:48 Alkaline Phosphatase 81 U/L (34-104) 02/13/23 03:48 Lactate Dehydrogenase 294 U/L (86-244) H 02/13/23 16:37 Total Protein 7.7 gm/dl (6.0-8.3) 02/13/23 03:48 Albumin 3.2 gm/dl (3.4-5.0) L 02/13/23 03:48 Globulin 4.5 gm/dl (2.5-4.0) H 02/13/23 03:48 Albumin/Globulin Ratio 0.7 (0.9-2) L 02/13/23 03:48 Lipase 11 U/L (11-82) 02/13/23 03:48 TSH 10.336 uIu/ml (0.300-4.500) H 02/16/23 06:22 Free T4 1.37 ng/dl (0.61-1.60) 02/16/23 06:22 Urine Color Yellow 02/13/23 06:10 Urine Appearance Clear (Clear) 02/13/23 06:10 Urine pH 7.5 (4.5-7.5) 02/13/23 06:10 Ur Specific [place] 1.025 (1.000-1.030) 02/13/23 06:10 Urine Protein Negative (Negative) 02/13/23 06:10 Urine Glucose (UA) Negative (Negative) 02/13/23 06:10 Urine Ketones Negative (Negative) 02/13/23 06:10 Urine Blood 3+ (Negative) H 02/13/23 06:10 Urine Nitrite Negative (Negative) 02/13/23 06:10 Urine Bilirubin Negative (Negative) 02/13/23 06:10 Urine Urobilinogen Negative (Negative) 02/13/23 06:10 Ur Leukocyte Esterase Trace (Negative) H 02/13/23 06:10 Urine WBC (Auto) 1-5 /hpf (0-5) 02/13/23 06:10 Urine RBC (Auto) 10-30 /hpf (0-4) H 02/13/23 06:10 U Hyaline Cast (Auto) 1-5 /lpf (0-5) 02/13/23 06:10 U Epithel Cells (Auto) >30 /lpf (0-5) H 02/13/23 06:10 Urine Bacteria (Auto) Negative (Negative) 02/13/23 06:10 Fluid Neutrophils % 12 % 02/13/23 Unknown Fluid Lymphocytes % 20 % 02/13/23 Unknown Fluid Eosinophils % 1 % 02/13/23 Unknown Fluid [place]ro/[place] % 67 % 02/13/23 Unknown Fluid Comment 02/13/23 Unknown Pleural Fluid Source Left Lung 02/13/23 Unknown Pleural Color Red 02/13/23 Unknown Pleural Appearance Cloudy 02/13/23 Unknown Pleural pH 7.62 (7.3-7.4) H 02/13/23 Unknown Pleural WBC (Auto) 252 /uL 02/13/23 Unknown Pleural RBC (Auto) 02148 /uL 02/13/23 Unknown Pleural Total Protein < 3.0 gm/dl 02/13/23 Unknown Pleural Total Protein Cancelled 02/13/23 Unknown Pleural LDH 97 U/L 02/13/23 Unknown Pleural LDH Cancelled 02/13/23 Unknown Pleural Glucose 98 mg/dl 02/13/23 Unknown SARS-CoV-2, RNA, NAAT NEGATIVE (NEGATIVE) 02/13/23 Unknown Blood Type O Positive 02/13/23 04:07 Antibody Screen NEGATIVE 02/13/23 04:07 Crossmatch See Detail 02/13/23 04:07 Impressions Abdomen/Pelvis CT 02/13/23 04:28 Exam(s): CT ABDOMEN + PELVIS With Contrast IV Amt: 90 ml optiray 320 EXAM: CT Abdomen and Pelvis With Intravenous Contrast CLINICAL HISTORY: Reason for exam: perforation of gastric ulcer? abd pain. TECHNIQUE: Axial computed tomography images of the abdomen and pelvis with intravenous contrast. CTDI is 14.07 mGy and DLP is 686.59 mGy-cm. Automated exposure control was utilized for the study. A dose lowering technique was utilized adhering to the principles of ALARA. CONTRAST: Patient received 90 ml optiray 320 of IV contrast COMPARISON: CT Abdomen Pelvis dated february 02 2023 FINDINGS: Lung bases: Large bilateral pleural effusions, incompletely characterized, with partially visualized left lower lobe collapse and partial right lower lobe collapse. Mediastinum: Radiopaque foreign body noted within the hiatal hernia which is favored to be iatrogenic in nature. Consider correlation with prior procedural history. This is noted on prior CT abdomen/pelvis February 02, 2023. ABDOMEN: Liver: Heterogeneous attenuation of the liver. Gallbladder and bile ducts: Patient is status post internalized biliary stent with proximal coil at the hepatic hilum and distal coil within the duodenum. Diffuse gallbladder wall thickening with adjacent stranding. Findings may be due to volume overload or low protein state. If there is further concern for cholecystitis, consider HIDA imaging. No ductal dilation. Pancreas: Unremarkable. No mass. No ductal dilation. Spleen: Unremarkable. No splenomegaly. Adrenals: Unremarkable. No mass. Kidneys and ureters: Unremarkable. No solid mass. No hydronephrosis. Stomach and bowel: Previously noted soft tissue mass within the stomach is not visualized. If there is further concern for ulcer, consider direct inspection or fluoroscopic imaging. Rectal vault distention measuring 6.4 cm. No evidence of adjacent stranding. Stercoral colitis is less likely. Consider disimpaction. Colonic diverticulosis. No evidence of diverticulitis. PELVIS: Appendix: No findings to suggest acute appendicitis. Bladder: Gas the bladder dome may be post procedural nature. Cystitis also possible. Consider correlation with laboratory values. Reproductive: Fibroid within the posterior uterus. ABDOMEN and PELVIS: Intraperitoneal space: Moderate volume mesenteric volume of abdominal and pelvic ascites. No free air. Bones/joints: No acute fracture. No dislocation. Soft tissues: Unremarkable. Vasculature: Unremarkable. No abdominal aortic aneurysm. Lymph nodes: Unremarkable. No enlarged lymph nodes. IMPRESSION: 1. Patient is status post internalized biliary stent with proximal coil at the hepatic hilum and distal coil within the duodenum. 2. Moderate volume mesenteric volume of abdominal and pelvic ascites. 3. Previously noted soft tissue mass within the stomach is not visualized. If there is further concern for ulcer, consider direct inspection or fluoroscopic imaging. 4. Findings suspicious for systemic volume overload with large bilateral pleural effusions, moderate mesenteric ascites, and anasarca. 5. Rectal vault distention measuring 6.4 cm. No evidence of adjacent stranding. Stercoral colitis is less likely. Consider disimpaction. 6. Diffuse gallbladder wall thickening with adjacent stranding. Findings may be due to volume overload or low protein state. If there is further concern for cholecystitis, consider HIDA imaging. 7. No other acute findings. 8. Incidental findings as described. Electronically signed by: Jose Silva MD 02/13/23 05:31 AM KUB X-Ray 02/17/23 07:00 KUB HISTORY: constipation COMPARISON: KUB 02/15/2023. FINDINGS: The bowel gas pattern is unremarkable. There are no dilated loops of small bowel to suggest an obstruction. No renal calculi. No ureteral calculi. Calcifications in the deep pelvis likely represent phleboliths. These remain unchanged. The common bile duct stent remains in place. Small amount of ascites is suggested. No pneumoperitoneum or pneumatosis. Bilateral pleural effusions are partially visualized. IMPRESSION: 1. Nonobstructive bowel gas pattern. 2. The common bile duct stent is unchanged in position. 3. Bilateral pleural effusions and a small amount of ascites is again noted. ACT 112: Negative or not required by law. Electronically signed by: Markie Silva M.D. 02/17/2023 12:03 PM Abdomen Ultrasound 02/17/23 11:23 US abdomen ltd ascites CLINICAL HISTORY: Ascites TECHNIQUE: Real-time grayscale sonographic images of the abdomen were obtained. Comparison: Comparison is made to CT abdomen pelvis 02/13/2023 FINDINGS/IMPRESSION: Small ascites is seen most prominent in the left abdomen. A right pleural effusion is noted. ACT 112: Negative or not required by law. Electronically signed by: Jose Ramon Murcia M.D. 02/17/2023 2:20 PM Chest X-Ray 02/17/23 14:47 XR chest 1V portable CLINICAL HISTORY: Dyspnea TECHNIQUE: Single frontal radiograph of the chest was obtained. Comparison: Comparison is made to chest radiograph 02/13/2023 FINDINGS: An implanted pacemaker is seen. The cardiomediastinal silhouette is obscured. Left lung airspace opacity is somewhat decreased from prior exam. There is faint airspace opacity in the right lower lung. Moderate left pleural effusion is seen. This appears to be increased from prior exam. Small right pleural effusion is seen. IMPRESSION: 1. Moderate left and small right pleural effusions, increased from prior exam. 2. Interval improvement in left airspace opacities with faint right lower lung airspace opacities. Findings may represent atelectasis, pneumonia, and/or aspiration. ACT 112: Negative or not required by law. Electronically signed by: Jose Ramon Murcia M.D. 02/17/2023 3:30 PM
[2023-02-21] MEDS: MoRPHine SULFATE 2 MG/ML CARP IV PRN ×2 (00:43→06:12)
[2023-02-21] MEDS: LEVOTHYROXINE SODIUM 50 MCG TABLET PO SCH (05:33)
[2023-02-21] MEDS: MIDODRINE HCL 2.5 MG TAB PO SCH ×3 (07:28→16:12)
[2023-02-21] MEDS: AMIODARONE 200 MG TAB PO SCH ×2 (08:01→20:34)
[2023-02-21] MEDS: DOCUSATE SODIUM/SENNA 50/8.6MG TAB PO SCH (08:01)
[2023-02-21] MEDS: POLYETHYLENE (MIRALAX) 17 GM PACK PO SCH (08:01)
[2023-02-21] MEDS: POTASSIUM CHLORIDE 20 MEQ/15 ML UDC PO SCH ×2 (08:01→20:35)
[2023-02-21] MEDS: ESCITALOPRAM OXALATE 10 MG TAB PO SCH (08:01)
[2023-02-21] MEDS: CYANOCOBALAMIN (B-12) 500 MCG TABLET PO SCH (08:01)
[2023-02-21] MEDS: SPIRONOLACTONE 25 MG TAB PO SCH (09:03)
[2023-02-21] MEDS: FUROSEMIDE 40 MG/4 ML VIAL IV SCH ×2 (09:18→16:14)
[2023-02-21] MEDS: PANTOprazole 40 MG in SYRINGE 0 ML IV SCH ×3 (10:42→20:37)
--- NOTE | 2023-02-21 10:44 | Communication Note ---
Date of Service: February 21, 2023 Brief Pall Med Note family/pt deciding on hospice care options NO acute needs - chart review indicates symptoms well controlled with current PRN regimen I will sign off as there are no current acute/urgent inpatient pall med needs no charge submitted TS 23min Thank you for allowing us to participate in the ongoing care of this patient. Please don't hesitate to call or page with any additional concerns. Dr. Divya Morrison DNP Director, Palliative Care
[2023-02-21] MEDS ORDERED: ONDANSETRON INJ 2 MG/ML 2 ML VIAL IV PRN (12:14)
[2023-02-21] MEDS ORDERED: ONDANSETRON 4 MG OD TAB SL PRN (12:14)
[2023-02-21] MEDS: MoRPHine SULFATE 10 MG/0.5 ML UDP PO PRN (12:28)
--- NOTE | 2023-02-21 13:42 | Cardiology Progress Note ---
Date of Service February 21, 2023 Assessment & Plan (1) Acute on chronic heart failure with preserved ejection fraction (HFpEF): (2) Cardiac amyloidosis: (3) Tachy-walker syndrome: (4) History of permanent cardiac pacemaker placement: Plan -Patient with acute on chronic heart failure with preserved ejection fraction, amyloid cardiomyopathy with what is felt to be end-stage disease. Patient has had a rapid decline in her clinical status over the last 6 weeks. -She was admitted with gastrointestinal bleeding having recently been placed on anticoagulation due to concerns of atrial arrhythmias. Other than on her previous hospital stay, some of the rhythm strips were suggestive atrial fibrillation, the predominant atrial arrhythmia has been felt to be atrial tachycardia per my last encounter with her. Patient undergone repeat left thoracentesis on 02/13/2023 and has reaccumulated as per repeat CXR on 02/17/23 per my review of the images. Patient is on amiodarone for rhythm control, midodrine for blood pressure support, spironolactone, furosemide 40 mg IV twice daily, potassium chloride. Had family meeting on 02/17/23, family / patient favoring home hospice. After further discussion with on 02/18/2023, preferences for no further procedures. At this time, would consider transitioning to palliative care strategy. Her furosemide is likely part of the palliative strategy to help reduce her suffering, however I think we are at a point of need to consider stopping blood draws and non palliative medication. As previously discussed would liberalize the use of anxiolytics and pain medication including morphine to treat air hunger symptoms. She has orders available for lorazepam and morphine on an as-needed basis. Admission and Anticipated Discharge Date Admission Date: February 13, 2023 Subjective Patient seen in cardiology follow-up. Since my assessment of her yesterday, she had been transferred off of the telemetry floor and is assessed today in room 385-2. She notes ongoing generalized fatigue. Her Shravan and son are at the bedside, as well as Dr. Jimenez at the time of my arrival. Physical Exam Constitutional: + ill appearing Respiratory: Auscultation: + diminished lung sounds (decreased BS at the left base ) Cardiovascular: RRR, no murmur, no edema Gastrointestinal (Abdomen): Inspection/Auscultation: + abdomen distended Percussion/Palpation: + abdomen tender and + ascites Neurologic: PERRL, EOMI, accommodation nl, no face palsy, no dysarthria Results & Data Vital Signs (Past 12 Hours) Vital Signs Temp Pulse Resp BP BP Pulse Ox O2 Del Method 02/21/23 09:20 Nasal Cannula 02/21/23 09:09 22 02/21/23 09:06 60 86/53 L 94 Nasal Cannula 02/21/23 07:01 36.6 C 61 16 90/63 L 93 Nasal Cannula 02/21/23 05:32 60 91/47 L O2 Flow Rate 02/21/23 09:20 3 02/21/23 09:09 02/21/23 09:06 3 02/21/23 07:01 2 02/21/23 05:32
--- NOTE | 2023-02-21 14:48 | Hospitalist Progress Note ---
Date of Service February 21, 2023 Assessment & Plan (1) Acute GI bleeding: Plan: Patient is a 77 yr female with H/O chronic diastolic CHF, idiopathic cardiomyopathy, cardiac amyloidosis, tachybradycardia syndrome s/p pacemaker, left ventricle hypertrophy, chronic atrial fibrillation, acute gastric ulcer with hemorrhage, multiple myeloma s/p chemo, hemorrhagic shock presents with GI bleed Acute GI bleeding ? Secondary to bleeding peptic ulcers H/O peptic ulcer disease --S/P EGD:Normal upper third of esophagus and middle third of esophagus. Mild Schatzki ring. Large hiatal hernia with multiple Elías ulcers. Non-obstructing non-bleeding gastric ulcer with no stigmata of bleeding. Normal examined duodenum. No specimens collected. --CT ABD: Patient is status post internalized biliary stent with proximal coil at the hepatic hilum and distal coil within the duodenum. Moderate volume mesenteric volume of abdominal and pelvic ascites. Previously noted soft tissue mass within the stomach is not visualized. If there is further concern for ulcer, consider direct inspection or fluoroscopic imaging. Findings suspicious for systemic volume overload with large bilateral pleural effusions, moderate mesenteric ascites, and anasarca. Rectal vault distention measuring 6.4 cm. No evidence of adjacent stranding. Stercoral colitis is less likely. Consider disimpaction. Diffuse gallbladder wall thickening with adjacent stranding. Findings may be due to volume overload or low protein state. If there is further concern for cholecystitis, consider HIDA imaging. No other acute findings. --S/P colonoscopy on 02/14/23:Preparation of the colon was inadequate. Hemorrhoids found on perianal exam. Stool in the rectum and in the sigmoid colon. No specimens collected. -- Monitor H&H and transfuse PRBCs as needed Continue IV Protonix, Carafate Continue enema, MiraLAX daily as recommended by GI Needs repeat colonoscopy in 3 months given suboptimal preparation continue full liquid diet for now (patient prefers not to advance for now) Currently no acute bleeding issues Anasarca Acute decompensated diastolic CHF-POA Cardiac amyloidosis --CXR personally reviewed:Increase in size of a large left pleural effusion. Slight increase in a small right pleural effusion. Cardiomegaly with mild interstitial pulmonary edema. -- CT abdomen as above --ECHO: Large left pleural effusion. Trivial loculated right lateral pericardial effusion. No echocardiogenic indications of cardiac tamponade. Dilated inferior vena cava with reduced collapsibility with sniff indicates an elevated right atrial pressure of 15 mmHg. --S/P thoracentesis on 02/13/23; pleural fluid suggestive transudative. Continue IV Lasix 40 mg twice daily Cardiology discussed with family; patient has reached end stage level of CHF Recommend hospice care. Hemorrhoids Symptomatic management Hypokalemia Replete electrolytes as needed Monitor Chronic hypotension Continue midodrine Monitor BP History of A-fib Tachybradycardia syndrome S/p pacemaker Continue Amiodarone Eliquis on hold due to GI bleed H/O choledocholithiasis S/P biliary sphincterotomy and balloon extraction, plastic biliary stent placement in the common bile duct on 01/10/2023. Plan for repeat ERCP for stent removal --2 months from stent placement Also plan for endoscopic ultrasound-guided gallbladder drainage using axios stent as patient was deemed to be nonsurgical candidate at the time. Normal LFTs History of multiple myeloma s/p chemo Follow-up with heme-onc Hypothyroidism TSH elevated, normal free T4 Continue levothyroxine Will need repeat thyroid function test as outpatient DVT Px: SCDs Re: GI bleed Dispositionpatient is on comfort care measures. Her shortness of breath has increased. Comfort care measures has been done. Discussed with her and son at bedside. Please note the above document was generated using voice recognition software. It may contain grammatical, syntax or spelling errors. Any formal questions or concerns about the content, text or information contained within the body of this dictation should be directly addressed to the provider for clarification Admission and Anticipated Discharge Date Admission Date: February 13, 2023 Subjective Patient seen and examined at bedside. She appears to be tired and lethargic. Reports that morphine is helping well with the pain. Review of Systems Review of Systems: Unobtainable due to cognitive status Physical Exam Physical Exam: Physical Exam: Vitals signs as noted above General Appearance:Thin, frail, moderate respiratory distress, Ill appearing Head: normocephalic, Atraumatic Eyes: normal inspection, EOMI Neck: supple, Trachea midline Respiratory/Chest: Decreased breath sounds on bilateral bases; more on left side Cardiovascular: S1, S2, No murmur Abdomen/GI:Soft, distended, non tender, Bowel sounds present Extremities/Musculoskeletal:normal inspection, no edema Neurologic/Psych:AAOX3, grossly no focal neurological deficits Skin: normal color, warm Results & Data Results & Data Vital Signs (Past 12 Hours) Vital Signs Temp Pulse Resp BP BP Pulse Ox O2 Del Method 02/21/23 09:20 Nasal Cannula 02/21/23 09:09 22 02/21/23 09:06 60 86/53 L 94 Nasal Cannula 02/21/23 07:01 36.6 C 61 16 90/63 L 93 Nasal Cannula 02/21/23 05:32 60 91/47 L O2 Flow Rate 02/21/23 09:20 3 02/21/23 09:09 02/21/23 09:06 3 02/21/23 07:01 2 02/21/23 05:32
[2023-02-21] MEDS: LORazepam 0.5 MG TAB PO PRN (17:57)
[2023-02-22] MEDS: LORazepam 0.5 MG TAB PO PRN ×3 (05:16→16:26)
[2023-02-22] MEDS: MoRPHine SULFATE 2 MG/ML CARP IV PRN ×2 (05:19→16:26)
[2023-02-22] MEDS: LEVOTHYROXINE SODIUM 50 MCG TABLET PO SCH (05:38)
[2023-02-22] MEDS: MIDODRINE HCL 2.5 MG TAB PO SCH ×3 (09:18→17:01)
[2023-02-22] MEDS: AMIODARONE 200 MG TAB PO SCH ×2 (09:18→21:04)
[2023-02-22] MEDS: CYANOCOBALAMIN (B-12) 500 MCG TABLET PO SCH (09:18)
[2023-02-22] MEDS: POTASSIUM CHLORIDE 20 MEQ/15 ML UDC PO SCH (09:19)
[2023-02-22] MEDS: FUROSEMIDE 40 MG/4 ML VIAL IV SCH ×2 (09:19→21:08)
[2023-02-22] MEDS: POLYETHYLENE (MIRALAX) 17 GM PACK PO SCH (09:19)
[2023-02-22] MEDS: ESCITALOPRAM OXALATE 10 MG TAB PO SCH (09:19)
[2023-02-22] MEDS: DOCUSATE SODIUM/SENNA 50/8.6MG TAB PO SCH (09:19)
[2023-02-22] MEDS: PANTOprazole 40 MG in SYRINGE 0 ML IV SCH ×2 (09:19→21:06)
[2023-02-22] MEDS: SPIRONOLACTONE 25 MG TAB PO SCH (09:20)
--- NOTE | 2023-02-22 13:26 | Hospitalist Progress Note ---
Date of Service February 22, 2023 Assessment & Plan (1) Acute GI bleeding: Plan: Patient is a 77 yr female with H/O chronic diastolic CHF, idiopathic cardiomyopathy, cardiac amyloidosis, tachybradycardia syndrome s/p pacemaker, left ventricle hypertrophy, chronic atrial fibrillation, acute gastric ulcer with hemorrhage, multiple myeloma s/p chemo, hemorrhagic shock presents with GI bleed. Anasarca Acute decompensated diastolic CHF-POA Cardiac amyloidosis Comfort care -- Lasix 60 personally reviewed:Increase in size of a large left pleural effusion. Slight increase in a small right pleural effusion. Cardiomegaly with mild interstitial pulmonary edema. -- CT abdomen as above --ECHO: Large left pleural effusion. Trivial loculated right lateral pericardial effusion. No echocardiogenic indications of cardiac tamponade. Dilated inferior vena cava with reduced collapsibility with sniff indicates an elevated right atrial pressure of 15 mmHg. --S/P thoracentesis on 02/13/23; pleural fluid suggestive transudative. Cardiology discussed with family; patient is at the end stages of for CHF. Patient is currently on comfort care measures with morphine, Ativan Lasix has been given for palliative approach. Acute GI bleeding H/O peptic ulcer disease --S/P EGD:Normal upper third of esophagus and middle third of esophagus. Mild Schatzki ring. Large hiatal hernia with multiple Elías ulcers. Non-obstructing non-bleeding gastric ulcer with no stigmata of bleeding. Normal examined duodenum. No specimens collected. --CT ABD: Patient is status post internalized biliary stent with proximal coil at the hepatic hilum and distal coil within the duodenum. Moderate volume mesenteric volume of abdominal and pelvic ascites. Previously noted soft tissue mass within the stomach is not visualized. If there is further concern for ulcer, consider direct inspection or fluoroscopic imaging. Findings suspicious for systemic volume overload with large bilateral pleural effusions, moderate mesenteric ascites, and anasarca. Rectal vault distention measuring 6.4 cm. No evidence of adjacent stranding. Stercoral colitis is less likely. Consider disimpaction. Diffuse gallbladder wall thickening with adjacent stranding. Findings may be due to volume overload or low protein state. If there is further concern for cholecystitis, consider HIDA imaging. No other acute findings. --S/P colonoscopy on 02/14/23:Preparation of the colon was inadequate. Hemorrhoids found on perianal exam. Stool in the rectum and in the sigmoid co ld. No specimens collected. Currently on IV Protonix Continue enema, MiraLAX daily as recommended by GI continue full liquid diet for now (patient prefers not to advance for now) Currently no acute bleeding issues Hemorrhoids Symptomatic management History of A-fib Tachybradycardia syndrome S/p pacemaker Continue Amiodarone Eliquis on hold due to GI bleed H/O choledocholithiasis S/P biliary sphincterotomy and balloon extraction, plastic biliary stent placement in the common bile duct on 01/10/2023. Plan for repeat ERCP for stent removal --2 months from stent placement History of multiple myeloma s/p chemo Follow-up with heme-onc Hypothyroidism TSH elevated, normal free T4 Continue levothyroxine DVT Px: SCDs Re: GI bleed Dispositionpatient is on comfort care measures. Her shortness of breath has increased. Needing frequent IV Ativan and morphine for comfort Please note the above document was generated using voice recognition software. It may contain grammatical, syntax or spelling errors. Any formal questions or concerns about the content, text or information contained within the body of this dictation should be directly addressed to the provider for clarification Admission and Anticipated Discharge Date Admission Date: February 13, 2023 Subjective Patient seen and examined at bedside. She reports that she is feeling anxious; she is increasingly short of breath as well. She has been receiving morphine and Ativan for comfort Review of Systems Review of Systems: All systems reviewed & are unremarkable except as noted in Subjective Physical Exam Physical Exam: Physical Exam: Vitals signs as noted above General Appearance:Thin, frail, moderate respiratory distress, Ill appearing Head: normocephalic, Atraumatic Eyes: normal inspection, EOMI Neck: supple, Trachea midline Respiratory/Chest: Decreased breath sounds on bilateral bases; more on left side Cardiovascular: S1, S2, No murmur Abdomen/GI:Soft, distended, non tender, Bowel sounds present Extremities/Musculoskeletal:normal inspection, no edema Neurologic/Psych:AAOX3, grossly no focal neurological deficits Skin: normal color, warm Results & Data Results & Data Vital Signs (Past 12 Hours) Vital Signs O2 Del Method 02/22/23 08:00 Nasal Cannula Laboratory Results Laboratory Results WBC 7.49 K/ul (4.8-10.8) 02/18/23 06:25 RBC 3.37 M/uL (4.20-5.40) L 02/18/23 06:25 Hgb 9.0 g/dl (12.0-16.0) L 02/18/23 06:25 Hct 30.3 % (37.0-47.0) L 02/18/23 06:25 MCV 89.9 fL (80.0-100.0) 02/18/23 06:25 MCH 26.7 pg (25.0-34.0) 02/18/23 06:25 MCHC 29.7 g/dL (32.0-36.0) L 02/18/23 06:25 RDW Std Deviation 54.5 fL (36.4-46.3) H 02/18/23 06:25 RDW Coeff of Nasir 17.6 % (11.5-14.5) H 02/18/23 06:25 Plt Count 244 K/uL (130-400) 02/18/23 06:25 MPV 10.7 fL (9.4-12.4) 02/18/23 06:25 Immature Gran % (Auto) 0.6 % 02/14/23 05:44 Neut % (Auto) 87.2 % 02/14/23 05:44 Lymph % (Auto) 5.4 % 02/14/23 05:44 Josephine % (Auto) 6.0 % 02/14/23 05:44 Eos % (Auto) 0.4 % 02/14/23 05:44 Baso % (Auto) 0.4 % 02/14/23 05:44 Neut # (Auto) 6.98 K/uL (1.40-6.50) H 02/14/23 05:44 Lymph # (Auto) 0.43 K/uL (1.20-3.40) L 02/14/23 05:44 Josephine # (Auto) 0.48 K/uL (0.11-0.59) 02/14/23 05:44 Eos # (Auto) 0.03 K/uL (0.00-0.50) 02/14/23 05:44 Baso # (Auto) 0.03 K/uL (0.00-0.20) 02/14/23 05:44 Immature Gran # (Auto) 0.05 K/uL (0.01-0.20) 02/14/23 05:44 Sodium 140 mmol/L (136-145) 02/18/23 06:25 Potassium 3.3 mmol/L (3.5-5.1) L 02/18/23 06:25 Chloride 105 mmol/L (98-107) 02/18/23 06:25 Carbon Dioxide 28 mmol/L (21-32) 02/18/23 06:25 Anion Gap 7 (3-11) 02/18/23 06:25 BUN 10 mg/dl (6-23) 02/18/23 06:25 Creatinine 0.63 mg/dl (0.6-1.2) 02/18/23 06:25 Est Cr Clr Drug Dosing 62.8 ml/min 02/18/23 06:25 Est GFR ( Amer) 101.0 ml/min 02/18/23 06:25 Est GFR (Non-Af Amer) 87.1 ml/min 02/18/23 06:25 BUN/Creatinine Ratio 15.9 (10-20) 02/18/23 06:25 Glucose 77 mg/dl (70-99(Fasting)) 02/18/23 06:25 Calcium 8.5 mg/dl (8.6-10.3) L 02/18/23 06:25 Magnesium 2.0 mg/dl (1.7-2.4) 02/18/23 06:25 Total Bilirubin 0.8 mg/dl (0.2-1.0) 02/13/23 03:48 AST 26 U/L (13-39) 02/13/23 03:48 ALT 18 U/L (7-52) 02/13/23 03:48 Alkaline Phosphatase 81 U/L (34-104) 02/13/23 03:48 Lactate Dehydrogenase 294 U/L (86-244) H 02/13/23 16:37 Total Protein 7.7 gm/dl (6.0-8.3) 02/13/23 03:48 Albumin 3.2 gm/dl (3.4-5.0) L 02/13/23 03:48 Globulin 4.5 gm/dl (2.5-4.0) H 02/13/23 03:48 Albumin/Globulin Ratio 0.7 (0.9-2) L 02/13/23 03:48 Lipase 11 U/L (11-82) 02/13/23 03:48 TSH 10.336 uIu/ml (0.300-4.500) H 02/16/23 06:22 Free T4 1.37 ng/dl (0.61-1.60) 02/16/23 06:22 Urine Color Yellow 02/13/23 06:10 Urine Appearance Clear (Clear) 02/13/23 06:10 Urine pH 7.5 (4.5-7.5) 02/13/23 06:10 Ur Specific [place] 1.025 (1.000-1.030) 02/13/23 06:10 Urine Protein Negative (Negative) 02/13/23 06:10 Urine Glucose (UA) Negative (Negative) 02/13/23 06:10 Urine Ketones Negative (Negative) 02/13/23 06:10 Urine Blood 3+ (Negative) H 02/13/23 06:10 Urine Nitrite Negative (Negative) 02/13/23 06:10 Urine Bilirubin Negative (Negative) 02/13/23 06:10 Urine Urobilinogen Negative (Negative) 02/13/23 06:10 Ur Leukocyte Esterase Trace (Negative) H 02/13/23 06:10 Urine WBC (Auto) 1-5 /hpf (0-5) 02/13/23 06:10 Urine RBC (Auto) 10-30 /hpf (0-4) H 02/13/23 06:10 U Hyaline Cast (Auto) 1-5 /lpf (0-5) 02/13/23 06:10 U Epithel Cells (Auto) >30 /lpf (0-5) H 02/13/23 06:10 Urine Bacteria (Auto) Negative (Negative) 02/13/23 06:10 Fluid Neutrophils % 12 % 02/13/23 Unknown Fluid Lymphocytes % 20 % 02/13/23 Unknown Fluid Eosinophils % 1 % 02/13/23 Unknown Fluid Meso/Macro/Josephine % 67 % 02/13/23 Unknown Fluid Comment 02/13/23 Unknown Pleural Fluid Source Left Lung 02/13/23 Unknown Pleural Color Red 02/13/23 Unknown Pleural Appearance Cloudy 02/13/23 Unknown Pleural pH 7.62 (7.3-7.4) H 02/13/23 Unknown Pleural WBC (Auto) 252 /uL 02/13/23 Unknown Pleural RBC (Auto) 45688 /uL 02/13/23 Unknown Pleural Total Protein < 3.0 gm/dl 02/13/23 Unknown Pleural Total Protein Cancelled 02/13/23 Unknown Pleural LDH 97 U/L 02/13/23 Unknown Pleural LDH Cancelled 02/13/23 Unknown Pleural Glucose 98 mg/dl 02/13/23 Unknown SARS-CoV-2, RNA, NAAT NEGATIVE (NEGATIVE) 02/13/23 Unknown Blood Type O Positive 02/13/23 04:07 Antibody Screen NEGATIVE 02/13/23 04:07 Crossmatch See Detail 02/13/23 04:07 Impressions Abdomen/Pelvis CT 02/13/23 04:28 Exam(s): CT ABDOMEN + PELVIS With Contrast IV Amt: 90 ml optiray 320 EXAM: CT Abdomen and Pelvis With Intravenous Contrast CLINICAL HISTORY: Reason for exam: perforation of gastric ulcer? abd pain. TECHNIQUE: Axial computed tomography images of the abdomen and pelvis with intravenous contrast. CTDI is 14.07 mGy and DLP is 686.59 mGy-cm. Automated exposure control was utilized for the study. A dose lowering technique was utilized adhering to the principles of ALARA. CONTRAST: Patient received 90 ml optiray 320 of IV contrast COMPARISON: CT Abdomen Pelvis dated february 02 2023 FINDINGS: Lung bases: Large bilateral pleural effusions, incompletely characterized, with partially visualized left lower lobe collapse and partial right lower lobe collapse. Mediastinum: Radiopaque foreign body noted within the hiatal hernia which is favored to be iatrogenic in nature. Consider correlation with prior procedural history. This is noted on prior CT abdomen/pelvis February 02, 2023. ABDOMEN: Liver: Heterogeneous attenuation of the liver. Gallbladder and bile ducts: Patient is status post internalized biliary stent with proximal coil at the hepatic hilum and distal coil within the duodenum. Diffuse gallbladder wall thickening with adjacent stranding. Findings may be due to volume overload or low protein state. If there is further concern for cholecystitis, consider HIDA imaging. No ductal dilation. Pancreas: Unremarkable. No mass. No ductal dilation. Spleen: Unremarkable. No splenomegaly. Adrenals: Unremarkable. No mass. Kidneys and ureters: Unremarkable. No solid mass. No hydronephrosis. Stomach and bowel: Previously noted soft tissue mass within the stomach is not visualized. If there is further concern for ulcer, consider direct inspection or fluoroscopic imaging. Rectal vault distention measuring 6.4 cm. No evidence of adjacent stranding. Stercoral colitis is less likely. Consider disimpaction. Colonic diverticulosis. No evidence of diverticulitis. PELVIS: Appendix: No findings to suggest acute appendicitis. Bladder: Gas the bladder dome may be post procedural nature. Cystitis also possible. Consider correlation with laboratory values. Reproductive: Fibroid within the posterior uterus. ABDOMEN and PELVIS: Intraperitoneal space: Moderate volume mesenteric volume of abdominal and pelvic ascites. No free air. Bones/joints: No acute fracture. No dislocation. Soft tissues: Unremarkable. Vasculature: Unremarkable. No abdominal aortic aneurysm. Lymph nodes: Unremarkable. No enlarged lymph nodes. IMPRESSION: 1. Patient is status post internalized biliary stent with proximal coil at the hepatic hilum and distal coil within the duodenum. 2. Moderate volume mesenteric volume of abdominal and pelvic ascites. 3. Previously noted soft tissue mass within the stomach is not visualized. If there is further concern for ulcer, consider direct inspection or fluoroscopic imaging. 4. Findings suspicious for systemic volume overload with large bilateral pleural effusions, moderate mesenteric ascites, and anasarca. 5. Rectal vault distention measuring 6.4 cm. No evidence of adjacent stranding. Stercoral colitis is less likely. Consider disimpaction. 6. Diffuse gallbladder wall thickening with adjacent stranding. Findings may be due to volume overload or low protein state. If there is further concern for cholecystitis, consider HIDA imaging. 7. No other acute findings. 8. Incidental findings as described. Electronically signed by: Jose Silva MD 02/13/23 05:31 AM KUB X-Ray 02/17/23 07:00 KUB HISTORY: constipation COMPARISON: KUB 02/15/2023. FINDINGS: The bowel gas pattern is unremarkable. There are no dilated loops of small bowel to suggest an obstruction. No renal calculi. No ureteral calculi. Calcifications in the deep pelvis likely represent phleboliths. These remain unchanged. The common bile duct stent remains in place. Small amount of ascites is suggested. No pneumoperitoneum or pneumatosis. Bilateral pleural effusions are partially visualized. IMPRESSION: 1. Nonobstructive bowel gas pattern. 2. The common bile duct stent is unchanged in position. 3. Bilateral pleural effusions and a small amount of ascites is again noted. ACT 112: Negative or not required by law. Electronically signed by: Markie Silva M.D. 02/17/2023 12:03 PM Abdomen Ultrasound 02/17/23 11:23 US abdomen ltd ascites CLINICAL HISTORY: Ascites TECHNIQUE: Real-time grayscale sonographic images of the abdomen were obtained. Comparison: Comparison is made to CT abdomen pelvis 02/13/2023 FINDINGS/IMPRESSION: Small ascites is seen most prominent in the left abdomen. A right pleural effusion is noted. ACT 112: Negative or not required by law. Electronically signed by: Jose Ramon Murcia M.D. 02/17/2023 2:20 PM Chest X-Ray 02/17/23 14:47 XR chest 1V portable CLINICAL HISTORY: Dyspnea TECHNIQUE: Single frontal radiograph of the chest was obtained. Comparison: Comparison is made to chest radiograph 02/13/2023 FINDINGS: An implanted pacemaker is seen. The cardiomediastinal silhouette is obscured. Left lung airspace opacity is somewhat decreased from prior exam. There is faint airspace opacity in the right lower lung. Moderate left pleural effusion is seen. This appears to be increased from prior exam. Small right pleural effusion is seen. IMPRESSION: 1. Moderate left and small right pleural effusions, increased from prior exam. 2. Interval improvement in left airspace opacities with faint right lower lung airspace opacities. Findings may represent atelectasis, pneumonia, and/or aspiration. ACT 112: Negative or not required by law. Electronically signed by: Jose Ramon Murcia M.D. 02/17/2023 3:30 PM
[2023-02-23] MEDS: LORazepam 0.5 MG TAB PO PRN ×3 (03:57→12:52)
[2023-02-23] MEDS: LEVOTHYROXINE SODIUM 50 MCG TABLET PO SCH ×2 (06:06→21:34)
[2023-02-23] MEDS: AMIODARONE 200 MG TAB PO SCH ×2 (07:33→19:28)
[2023-02-23] MEDS: MIDODRINE HCL 2.5 MG TAB PO SCH ×3 (07:33→18:17)
[2023-02-23] MEDS: ESCITALOPRAM OXALATE 10 MG TAB PO SCH (07:33)
[2023-02-23] MEDS: DOCUSATE SODIUM/SENNA 50/8.6MG TAB PO SCH (07:33)
[2023-02-23] MEDS: CYANOCOBALAMIN (B-12) 500 MCG TABLET PO SCH (07:33)
[2023-02-23] MEDS: POLYETHYLENE (MIRALAX) 17 GM PACK PO SCH (07:34)
[2023-02-23] MEDS: FUROSEMIDE 40 MG/4 ML VIAL IV SCH ×2 (07:34→19:37)
[2023-02-23] MEDS: PANTOprazole 40 MG in SYRINGE 0 ML IV SCH ×2 (07:34→19:38)
[2023-02-23] MEDS: MoRPHine SULFATE 2 MG/ML CARP IV PRN ×3 (09:56→18:16)
--- NOTE | 2023-02-23 14:46 | Hospitalist Progress Note ---
Date of Service February 23, 2023 Assessment & Plan (1) Acute GI bleeding: Plan: Patient is a 77 yr female with H/O chronic diastolic CHF, idiopathic cardiomyopathy, cardiac amyloidosis, tachybradycardia syndrome s/p pacemaker, left ventricle hypertrophy, chronic atrial fibrillation, acute gastric ulcer with hemorrhage, multiple myeloma s/p chemo, hemorrhagic shock presents with GI bleed. Anasarca Acute decompensated diastolic CHF-POA Cardiac amyloidosis Comfort care -- Lasix 60 personally reviewed:Increase in size of a large left pleural effusion. Slight increase in a small right pleural effusion. Cardiomegaly with mild interstitial pulmonary edema. -- CT abdomen as above --ECHO: Large left pleural effusion. Trivial loculated right lateral pericardial effusion. No echocardiogenic indications of cardiac tamponade. Dilated inferior vena cava with reduced collapsibility with sniff indicates an elevated right atrial pressure of 15 mmHg. --S/P thoracentesis on 02/13/23; pleural fluid suggestive transudative. Cardiology discussed with family; patient is at the end stages of for CHF. Patient is currently on comfort care measures with morphine, Ativan Lasix has been given for palliative approach. Acute GI bleeding H/O peptic ulcer disease --S/P EGD:Normal upper third of esophagus and middle third of esophagus. Mild Schatzki ring. Large hiatal hernia with multiple Elías ulcers. Non-obstructing non-bleeding gastric ulcer with no stigmata of bleeding. Normal examined duodenum. No specimens collected. --CT ABD: Patient is status post internalized biliary stent with proximal coil at the hepatic hilum and distal coil within the duodenum. Moderate volume mesenteric volume of abdominal and pelvic ascites. Previously noted soft tissue mass within the stomach is not visualized. If there is further concern for ulcer, consider direct inspection or fluoroscopic imaging. Findings suspicious for systemic volume overload with large bilateral pleural effusions, moderate mesenteric ascites, and anasarca. Rectal vault distention measuring 6.4 cm. No evidence of adjacent stranding. Stercoral colitis is less likely. Consider disimpaction. Diffuse gallbladder wall thickening with adjacent stranding. Findings may be due to volume overload or low protein state. If there is further concern for cholecystitis, consider HIDA imaging. No other acute findings. --S/P colonoscopy on 02/14/23:Preparation of the colon was inadequate. Hemorrhoids found on perianal exam. Stool in the rectum and in the sigmoid co ld. No specimens collected. Currently on IV Protonix Continue enema, MiraLAX daily as recommended by GI continue full liquid diet for now (patient prefers not to advance for now) Currently no acute bleeding issues Hemorrhoids Symptomatic management History of A-fib Tachybradycardia syndrome S/p pacemaker Continue Amiodarone Eliquis on hold due to GI bleed H/O choledocholithiasis S/P biliary sphincterotomy and balloon extraction, plastic biliary stent placement in the common bile duct on 01/10/2023. Plan for repeat ERCP for stent removal --2 months from stent placement History of multiple myeloma s/p chemo Follow-up with heme-onc Hypothyroidism TSH elevated, normal free T4 Continue levothyroxine DVT Px: SCDs Re: GI bleed Dispositionpatient is on comfort care measures. Her shortness of breath has increased. Needing frequent IV Ativan and morphine for comfort Please note the above document was generated using voice recognition software. It may contain grammatical, syntax or spelling errors. Any formal questions or concerns about the content, text or information contained within the body of this dictation should be directly addressed to the provider for clarification Admission and Anticipated Discharge Date Admission Date: February 13, 2023 Subjective Patient seen and examined at bedside. She reports that she is comfortable. She is requiring [id number] Ativan and morphine. Review of Systems Review of Systems: All systems reviewed & are unremarkable except as noted in Subjective Physical Exam Physical Exam: Physical Exam: Vitals signs as noted above General Appearance:Thin, frail, moderate respiratory distress, Ill appearing Head: normocephalic, Atraumatic Eyes: normal inspection, EOMI Neck: supple, Trachea midline Respiratory/Chest: Decreased breath sounds on bilateral bases; more on left side Cardiovascular: S1, S2, No murmur Abdomen/GI:Soft, distended, non tender, Bowel sounds present Extremities/Musculoskeletal:normal inspection, no edema Neurologic/Psych:AAOX3, grossly no focal neurological deficits Skin: normal color, warm Results & Data Results & Data Vital Signs (Past 12 Hours) Vital Signs O2 Del Method O2 Flow Rate 02/23/23 10:04 Nasal Cannula 2
[2023-02-24] MEDS: MoRPHine SULFATE 2 MG/ML CARP IV PRN ×2 (02:14→07:28)
[2023-02-24] MEDS: LORazepam 0.5 MG in SYRINGE 0.25 ML IV PRN ×2 (04:06→10:55)
[2023-02-24] MEDS ORDERED: MoRPHine SULFATE 2 MG/ML CARP IV PRN (07:43)
[2023-02-24] MEDS: AMIODARONE 200 MG TAB PO SCH ×2 (09:41→21:36)
[2023-02-24] MEDS: ESCITALOPRAM OXALATE 10 MG TAB PO SCH (09:41)
[2023-02-24] MEDS: MIDODRINE HCL 2.5 MG TAB PO SCH ×3 (09:41→17:13)
[2023-02-24] MEDS: DOCUSATE SODIUM/SENNA 50/8.6MG TAB PO SCH (09:41)
[2023-02-24] MEDS: CYANOCOBALAMIN (B-12) 500 MCG TABLET PO SCH (09:41)
[2023-02-24] MEDS: POLYETHYLENE (MIRALAX) 17 GM PACK PO SCH (09:42)
[2023-02-24] MEDS: PANTOprazole 40 MG in SYRINGE 0 ML IV SCH (09:42)
[2023-02-24] MEDS: FUROSEMIDE 40 MG/4 ML VIAL IV SCH (09:46)
[2023-02-24] MEDS ORDERED: STAT IV Infusion **Titration per Protocol STA (13:31)
[2023-02-24] MEDS ORDERED: MoRPHine SULF/NSS 100 MG/100 ML BAG IV SCH (14:00)
--- NOTE | 2023-02-24 15:00 | Hospitalist Progress Note ---
Date of Service February 24, 2023 Assessment & Plan (1) Acute GI bleeding: Plan: Patient is a 77 yr female with H/O chronic diastolic CHF, idiopathic cardiomyopathy, cardiac amyloidosis, tachybradycardia syndrome s/p pacemaker, left ventricle hypertrophy, chronic atrial fibrillation, acute gastric ulcer with hemorrhage, multiple myeloma s/p chemo, hemorrhagic shock presents with GI bleed and shortness of breath. Anasarca Acute decompensated diastolic CHF-POA Cardiac amyloidosis Comfort care Acute GI bleeding H/O peptic ulcer disease Patient presented to the hospital with possible GI bleed and shortness of breath She was also found to have increase in the large left pleural effusion and pulmonary edema. She underwent EGD; found to have large hiatal hernia and multiple Elías ulcers. She also had nonbleeding gastric ulcer. Despite aggressive diuresis, patient's pleural effusion and shortness of breath increased Cardiology discussed with family that the patient is at the end stage of CHF. Patient was transitioned over to comfort care. After discussion with the family, for pain/dyspneawill start her on morphine drip 1 mg/h. Titration of the morphine drip as per symptoms. Evaluation for inpatient hospice to be done. Discussed with caseworker. Provide IV Ativan as needed Oxygen for comfort No labs IV Lasix and Protonix is stopped. Dispositionpatient is on comfort care measures. Her shortness of breath has increased. On morphine drip. Evaluate for inpatient hospice. Please note the above document was generated using voice recognition software. It may contain grammatical, syntax or spelling errors. Any formal questions or concerns about the content, text or information contained within the body of this dictation should be directly addressed to the provider for clarification Admission and Anticipated Discharge Date Admission Date: February 13, 2023 Subjective Patient appears more dyspneic today. She is lethargic as well. Family member at bedside. Review of Systems Review of Systems: Unobtainable due to cognitive status Physical Exam Physical Exam: Physical Exam: Vitals signs as noted above General Appearance:Thin, frail, moderate respiratory distress, Ill appearing Head: normocephalic, Atraumatic Eyes: normal inspection, EOMI Neck: supple, Trachea midline Respiratory/Chest: Decreased breath sounds on bilateral bases; more on left side Cardiovascular: S1, S2, No murmur Abdomen/GI:Soft, distended, non tender, Bowel sounds present Extremities/Musculoskeletal:normal inspection, no edema Neurologic/Psych: Lethargic but awake able. Not in any distress. Skin: normal color, warm Results & Data Results & Data Vital Signs (Past 12 Hours) Vital Signs O2 Del Method O2 Flow Rate 02/24/23 07:30 Nasal Cannula 2
--- NOTE | 2023-02-24 16:10 | Discharge Summary ---
Date of Service February 24, 2023 Admission HPI Per Admitting Provider 77-year-old female with past med significant for chronic diastolic CHF, idiopathic cardiomyopathy, cardiac amyloidosis, tachybradycardia syndrome s/p pacemaker, left ventricle hypertrophy, chronic atrial fibrillation, acute gastric ulcer with hemorrhage, multiple myeloma s/p chemo, hemorrhagic shock presents with GI bleed. Patient was admitted on January 07, 2023 with A-fib and biliary colic. She also found to have tachybradycardia syndrome and s/p pacemaker on January 13. Postprocedure had small pneumothorax. She also s/p ERCP for choledocholithiasis s/p 1 plastic biliary stent was placed in the commo n bile duct and plan was to repeat ERCP in 2 months to remove the stent and possible axios stent placement. EGD done showed nonbleeding gastric ulcers. Patient was again admitted on January 27, 2023 for acute on chronic heart failure with preserved ejection fraction and pleural effusion. Seen by pulmonary but as there was no significant hypoxia thoracocentesis was not done. Was treated with IV diuretics. Pacemaker interrogation was done which showed stable thresholds.Her Eliquis restarted January given risk of stroke with atrial fibrillation and amyloidosis and she was discharged on February 01. On February 02 she was admitted for GI bleed, looks like she had history of gastric ulcer requiring Endo Clip in September 2021.She was having hematemesis and also rectal bleed during February 02 admission. Significant hematemesis in the ER. Seems filled whole emesis basin full of bright red blood .Had hypotension and an episode of syncope. Massive transfusion protocol was initiated and she received Kcentra , FFP and as well as TXA. Received 2 units of PRBC . Patient had emergent EGD. EGD revealed large cratered ulcer in the gastric antrum which was significantly increased in size when compared to prior EGD along with stigmata of recent bleeding. Received IV Rocephin for Klebsiella urine culture from January 27. Patient was seen by the critical care. Patient also seen by general surgery and because of her cardiac issues recommended transfer to tertiary care.Patient was transferred to [facility] for large cratered gastric antral ulcer concern for impending perforation. As per patient at [facility] she had EGD and ulcer was sprayed and had another EGD. She was monitored in the ICU. As per epic patient had EGD on February 03 which showed nonobstructing gastric ulcer with oozing hemorrhage .Hemostatic spray applied. And returned to ICU for repeat EGD in 1 to 2 days. Patient had repeat EGD on February 06. Nonbleeding gastric ulcer with a clean ulcer base was found. And advised for omeprazole 40 mg p.o. twice daily for 8 weeks and to repeat EGD to check healing seems to be done when EUS with gallbladder drainage and ERCP planned. Patient was discharged last Friday to home. Patient states after going home she was feeling very weak and tired. Mostly bedbound. Having abdominal pain. Poor appetite. Tonight again she had a bloody bowel movement which prompted her to come to the ER. Hemoccult was positive in the ER. Hemoglobin is 9.5. Denies any headache. No cough. No fevers. Currently seems no chest pain or shortness of breath. No nausea. Blood pressures somewhat soft. CT abdomen pelvis showing lateral pleural effusions and anasarca ascites. Blood consent obtained. Past medical history. As mentioned above Past surgical history. Colonoscopy. EGD. ERCP. Ligation oviducts. Puncture drainage of the breast cyst. Cataracts Social history. . Quit smoking 1967. No alcohol use. Drug use. Family history.Mother had cancer. Hypertension. Father had hypertension. Stroke. Brother has hypertension. Admission Exam Per Admitting Provider General- Not in distress Head- atraumatic Eyes- EOMI ENT- oropharynx dry Neck- supple, no JVD. Lungs- clear to auscultation no wheezing or crackles Heart- regular rhythm; no murmur, no gallop. Abdomen- normal bowel sounds, soft, mild diffuse tender Extremities- no pretibial edema, no erythema seen. Neuro- alert, oriented x 3; EOMI; no facial palsy; no dysarthria; moves extremities. Skin- warm & dry Principal Diagnosis END stage CHF Discharge Exam Physical Exam: Vitals signs as noted above General Appearance:Thin, frail, moderate respiratory distress, Ill appearing Head: normocephalic, Atraumatic Eyes: normal inspection, EOMI Neck: supple, Trachea midline Respiratory/Chest: Decreased breath sounds on bilateral bases; more on left side Cardiovascular: S1, S2, No murmur Abdomen/GI:Soft, distended, non tender, Bowel sounds present Extremities/Musculoskeletal:normal inspection, no edema Neurologic/Psych: Lethargic but awake able. Not in any distress. Skin: normal color, warm Discharge Data Allergies Allergy/AdvReac Type Severity Reaction Status Date / Time iron Allergy Rash Verified 01/27/23 15:23 Consultations 02/13/23 08:23 Consult Gastroenterology Routine 02/13/23 08:46 Consult Cardiology Routine Consult Pulmonology Routine 02/13/23 09:01 Consult Cardiology Routine Consult Gastroenterology Routine 02/16/23 09:58 Consult Palliative Care Routine Procedures Performed Operation Date: 02/14/23 16:30 Actual Procedures p Colonoscopy - Blu Mendez DO Ordered Studies 02/13/23 04:28 CT Abd and Pelvis [CT abd pelvis IV con only] Stat 02/17/23 11:23 US abdomen ltd ascites Urgent Hospital Course (1) Acute GI bleeding: Patient is a 77 yr female with H/O chronic diastolic CHF, idiopathic cardiomyopathy, cardiac amyloidosis, tachybradycardia syndrome s/p pacemaker, left ventricle hypertrophy, chronic atrial fibrillation, acute gastric ulcer with hemorrhage, multiple myeloma s/p chemo, hemorrhagic shock presents with GI bleed and shortness of breath. Anasarca Acute decompensated diastolic CHF-POA Cardiac amyloidosis Comfort care Acute GI bleeding H/O peptic ulcer disease Patient presented to the hospital with possible GI bleed and shortness of breath She was also found to have increase in the large left pleural effusion and pulmonary edema. She underwent EGD; found to have large hiatal hernia and multiple Elías ulcers. She also had nonbleeding gastric ulcer. Despite aggressive diuresis, patient's pleural effusion and shortness of breath increased Cardiology discussed with family that the patient is at the end stage of CHF. Patient was transitioned over to comfort care. After discussion with the family, for pain/dyspneawill start her on morphine drip 1 mg/h. Titration of the morphine drip as per symptoms. Patient transition over to general inpatient hospice Please note the above document was generated using voice recognition software. It may contain grammatical, syntax or spelling errors. Any formal questions or concerns about the content, text or information contained within the body of this dictation should be directly addressed to the provider for clarification Total Time Total Time Spent Total Time Spent (In Minutes): 35 Total Time Includes: Examination of the Patient, Discharge Planning, Medication Reconciliation, Communication With Other Providers and Other Discharge Plan Discharge Items Patient Disposition: Hospice - Medical Facility Reason For Visit: ABDOMINAL PAIN, GI BLEED Discharge Diagnosis: End stage CHF Activity: Resume your previous activity Non-emergency contact: Primary Care Provider Call non-emergency contact if: you have any medication questions and your symptoms worsen Follow-up/Referrals: Rosendo Boyce, [Primary Care Provider] - Diet: Regular Addtl Attending Provider Instructions: Anasarca Acute decompensated diastolic CHF-POA Cardiac amyloidosis Comfort care Acute GI bleeding H/O peptic ulcer disease Patient presented to the hospital with possible GI bleed and shortness of breath She was also found to have increase in the large left pleural effusion and pulmonary edema. She underwent EGD; found to have large hiatal hernia and multiple Elías ulcers. She also had nonbleeding gastric ulcer. Despite aggressive diuresis, patient's pleural effusion and shortness of breath increased Cardiology discussed with family that the patient is at the end stage of CHF. Patient was transitioned over to comfort care. Pending Studies at Discharge: No Stand-Alone Forms: [facility] [employer] Skilled Items Patient informed of condition?: Yes DNR: Yes Discharge Level of Care: Other Communicable Disease: No Discharge Prognosis: Deteriorating Lines: Peripheral IV Urinary Catheter: Yes Medications and DC Order Prescriptions: Continued cyanocobalamin (vitamin B-12) [Vitamin B-12] 1,000 mcg Tablet 1,000 mcg PO QAM amiodarone 200 mg Tablet 200 mg PO BID Qty: 60 0RF pantoprazole 40 mg Tablet,Delayed Release (Dr/Ec) 40 mg PO BID Qty: 60 0RF sucralfate 100 mg/mL suspension 10 ml PO QID PRN (Reason: Gi Upset) levothyroxine 50 mcg tablet 50 mcg PO QAM midodrine 2.5 mg tablet 2.5 mg PO TIDM amoxicillin-pot clavulanate 875-125 mg Tablet 1 tab PO BIDM Qty: 10 0RF furosemide 40 mg tablet 80 mg PO BID Qty: 60 0RF potassium chloride 20 mEq Tablet,Er Particles/Crystals 20 meq PO BID Qty: 60 0RF escitalopram oxalate 10 mg tablet 10 mg PO DAILY Admission Data Admit Date/Time: 02/13/23 06:59 Attending Provider: Chon Jimenez Admit Provider: Deondre Rivero Primary Care Provider: Rosendo Boyce Other Providers: Hope Stuart; Carola Chang; Tatyana Shultz; Jb Roth Jr; Kylah Hopper; Moe Andrade; Rod Guerra; Blu Mendez; Robinson Lowe; Alaina Amos; Danielle Lam; Bull Ramírez S; Kathy Sethi; Veto Cronin; Garland Agee; Maranda Larson; Stefanie Lenz; oClt Rogers; Janae Casas; Gurpreet Amaro; Heather Harris; Ward Cortes; Atiya Giron; Xochitl Toth; Eugenio,[facility]
[2023-02-25] MEDS: LEVOTHYROXINE SODIUM 50 MCG TABLET PO SCH (05:17)
--- NOTE | 2023-02-25 07:57 | Death Pronouncement Note ---
Date of Service February 25, 2023 Pronouncement Note Admission Date February 13, 2023 Date and Time of Date of : 02/25/23 Time of : 06:30 Additional Data Confirmation of : no pulse, no respirations, no heart sounds and pupils fixed and dilated Family: contacted Attending physician: Chon Jimenez MD
--- NOTE | 2023-02-25 08:16 | Discharge Summary ---
Date of Service February 25, 2023 Admission HPI Per Admitting Provider 77-year-old female with past med significant for chronic diastolic CHF, idiopathic cardiomyopathy, cardiac amyloidosis, tachybradycardia syndrome s/p pacemaker, left ventricle hypertrophy, chronic atrial fibrillation, acute gastric ulcer with hemorrhage, multiple myeloma s/p chemo, hemorrhagic shock presents with GI bleed. Patient was admitted on January 07, 2023 with A-fib and biliary colic. She also found to have tachybradycardia syndrome and s/p pacemaker on January 13. Postprocedure had small pneumothorax. She also s/p ERCP for choledocholithiasis s/p 1 plastic biliary stent was placed in the commo n bile duct and plan was to repeat ERCP in 2 months to remove the stent and possible axios stent placement. EGD done showed nonbleeding gastric ulcers. Patient was again admitted on January 27, 2023 for acute on chronic heart failure with preserved ejection fraction and pleural effusion. Seen by pulmonary but as there was no significant hypoxia thoracocentesis was not done. Was treated with IV diuretics. Pacemaker interrogation was done which showed stable thresholds.Her Eliquis restarted January given risk of stroke with atrial fibrillation and amyloidosis and she was discharged on February 01. On February 02 she was admitted for GI bleed, looks like she had history of gastric ulcer requiring Endo Clip in September 2021.She was having hematemesis and also rectal bleed during February 02 admission. Significant hematemesis in the ER. Seems filled whole emesis basin full of bright red blood .Had hypotension and an episode of syncope. Massive transfusion protocol was initiated and she received Kcentra , FFP and as well as TXA. Received 2 units of PRBC . Patient had emergent EGD. EGD revealed large cratered ulcer in the gastric antrum which was significantly increased in size when compared to prior EGD along with stigmata of recent bleeding. Received IV Rocephin for Klebsiella urine culture from January 27. Patient was seen by the critical care. Patient also seen by general surgery and because of her cardiac issues recommended transfer to tertiary care.Patient was transferred to [facility] for large cratered gastric antral ulcer concern for impending perforation. As per patient at [place] she had EGD and ulcer was sprayed and had another EGD. She was monitored in the ICU. As per epic patient had EGD on February 03 which showed nonobstructing gastric ulcer with oozing hemorrhage .Hemostatic spray applied. And returned to ICU for repeat EGD in 1 to 2 days. Patient had repeat EGD on February 06. Nonbleeding gastric ulcer with a clean ulcer base was found. And advised for omeprazole 40 mg p.o. twice daily for 8 weeks and to repeat EGD to check healing seems to be done when EUS with gallbladder drainage and ERCP planned. Patient was discharged last Friday to home. Patient states after going home she was feeling very weak and tired. Mostly bedbound. Having abdominal pain. Poor appetite. Tonight again she had a bloody bowel movement which prompted her to come to the ER. Hemoccult was positive in the ER. Hemoglobin is 9.5. Denies any headache. No cough. No fevers. Currently seems no chest pain or shortness of breath. No nausea. Blood pressures somewhat soft. CT abdomen pelvis showing lateral pleural effusions and anasarca ascites. Blood consent obtained. Past medical history. As mentioned above Past surgical history. Colonoscopy. EGD. ERCP. Ligation oviducts. Puncture drainage of the breast cyst. Cataracts Social history. . Quit smoking 1967. No alcohol use. Drug use. Family history.Mother had cancer. Hypertension. Father had hypertension. Stroke. Brother has hypertension. Admission Exam Per Admitting Provider General- Not in distress Head- atraumatic Eyes- EOMI ENT- oropharynx dry Neck- supple, no JVD. Lungs- clear to auscultation no wheezing or crackles Heart- regular rhythm; no murmur, no gallop. Abdomen- normal bowel sounds, soft, mild diffuse tender Extremities- no pretibial edema, no erythema seen. Neuro- alert, oriented x 3; EOMI; no facial palsy; no dysarthria; moves extremities. Skin- warm & dry Principal Diagnosis End stage CHF Discharge Exam Patient Discharge Data Allergies Allergy/AdvReac Type Severity Reaction Status Date / Time iron Allergy Rash Verified 01/27/23 15:23 Consultations 02/13/23 08:23 Consult Gastroenterology Routine 02/13/23 08:46 Consult Cardiology Routine Consult Pulmonology Routine 02/13/23 09:01 Consult Cardiology Routine Consult Gastroenterology Routine 02/16/23 09:58 Consult Palliative Care Routine Procedures Performed Operation Date: 02/14/23 16:30 Actual Procedures p Colonoscopy - Blu Mendez, Ordered Studies 02/13/23 04:28 CT Abd and Pelvis [CT abd pelvis IV con only] Stat 02/17/23 11:23 US abdomen ltd ascites Urgent Hospital Course (1) Acute GI bleeding: Patient is a 77 yr female with H/O chronic diastolic CHF, idiopathic cardiomyopathy, cardiac amyloidosis, tachybradycardia syndrome s/p pacemaker, left ventricle hypertrophy, chronic atrial fibrillation, acute gastric ulcer with hemorrhage, multiple myeloma s/p chemo, hemorrhagic shock presents with GI bleed and shortness of breath. Anasarca Acute decompensated diastolic CHF-POA Cardiac amyloidosis Comfort care Acute GI bleeding H/O peptic ulcer disease Patient presented to the hospital with possible GI bleed and shortness of breath She was also found to have increase in the large left pleural effusion and pulmonary edema. She underwent EGD; found to have large hiatal hernia and multiple Elías ulcers. She also had nonbleeding gastric ulcer. Despite aggressive diuresis, patient's pleural effusion and shortness of breath increased Cardiology discussed with family that the patient is at the end stage of CHF. Patient was transitioned over to comfort care. Patient at 6:30 am on02/25/2023. Please note the above document was generated using voice recognition software. It may contain grammatical, syntax or spelling errors. Any formal questions or concerns about the content, text or information contained within the body of this dictation should be directly addressed to the provider for clarification Total Time Total Time Spent Total Time Spent (In Minutes): 10 Discharge Plan Discharge Items Patient Disposition: Hospice - Medical Facility Reason For Visit: ABDOMINAL PAIN, GI BLEED Discharge Diagnosis: End stage CHF Activity: Resume your previous activity Non-emergency contact: Primary Care Provider Call non-emergency contact if: you have any medication questions and your symptoms worsen Follow-up/Referrals: Rosendo Boyce DO [Primary Care Provider] - Diet: Regular Addtl Attending Provider Instructions: Anasarca Acute decompensated diastolic CHF-POA Cardiac amyloidosis Comfort care Acute GI bleeding H/O peptic ulcer disease Patient presented to the hospital with possible GI bleed and shortness of breath She was also found to have increase in the large left pleural effusion and pulmonary edema. She underwent EGD; found to have large hiatal hernia and multiple Elías ulcers. She also had nonbleeding gastric ulcer. Despite aggressive diuresis, patient's pleural effusion and shortness of breath increased Cardiology discussed with family that the patient is at the end stage of CHF. Patient was transitioned over to comfort care. Pending Studies at Discharge: No Stand-Alone Forms: My [facility] Skilled Items Patient informed of condition?: Yes DNR: Yes Discharge Level of Care: Other Communicable Disease: No Discharge Prognosis: Deteriorating Lines: Peripheral IV Urinary Catheter: Yes Medications and DC Order Prescriptions: Continued cyanocobalamin (vitamin B-12) [Vitamin B-12] 1,000 mcg Tablet 1,000 mcg PO QAM amiodarone 200 mg Tablet 200 mg PO BID Qty: 60 0RF pantoprazole 40 mg Tablet,Delayed Release (Dr/Ec) 40 mg PO BID Qty: 60 0RF sucralfate 100 mg/mL suspension 10 ml PO QID PRN (Reason: Gi Upset) levothyroxine 50 mcg tablet 50 mcg PO QAM midodrine 2.5 mg tablet 2.5 mg PO TIDM amoxicillin-pot clavulanate 875-125 mg Tablet 1 tab PO BIDM Qty: 10 0RF furosemide 40 mg tablet 80 mg PO BID Qty: 60 0RF potassium chloride 20 mEq Tablet,Er Particles/Crystals 20 meq PO BID Qty: 60 0RF escitalopram oxalate 10 mg tablet 10 mg PO DAILY Admission Data Admit Date/Time: 02/13/23 06:59 Attending Provider: Chon Jimenez Admit Provider: Deondre Rivero Primary Care Provider: Rosendo Boyce Other Providers: Hope Stuart; Carola Chang; Tatyana Shultz; Jb Roth Jr; Kylah Hopper; Moe Andrade; Rod Guerra; Blu Mendez; Robinson Lowe; Alaina Amos; Danielle Lam; Bull Ramírez; Kathy Sethi; Veto Cronin; Garland Agee; Maranda Larson; Stefanie Lenz; Colt Rogers; Janae Casas; Gurpreet Amaro; Heather Harris; Ward Cortes; Atiya Giron; Xochitl Toth.; Eugenio[facility]
== END 2023-02-25 09:58 | disposition expired | DRG 377 ==
LOC: ED 03:29 → 2S 06:59 → SUATTDRO 06:59 → 2S 07:57 → 3N 02-21 01:29